=== PATIENT | male | born 1980 | race Two or more races ===

== ENCOUNTER 2019-06-20 02:53 | Inpatient (IN) | payer MEDICAID ==
[2019-06-20] VITALS (7 sets, daily range): BP systolic 88–113; BP diastolic 55–83
[~2019-06-20] VITALS: Ht 175.3 cm; Wt 106.6 kg
--- NOTE | 2019-06-20 03:02 | Emergency Room Report ---
History of Present Illness General Chief Complaint: Alcohol Intoxication Source: Patient, EMS Present Illness HPI This is a 39-year-old male who is an alcoholic. He has been drinking heavily for 3 months straight. He stopped drinking yesterday. He felt weak and wanted to go to the hospital. No bleeding. No nausea no vomiting. Nothing made it better. Movement or exertion makes it worse. Allergies: Coded Allergies: No Known Allergies (Unverified , 06/20/19) Patient History Past Medical History: see triage record, old chart reviewed Past Surgical History: none Pertinent Family History: none Social History: Reports: alcohol use Immunizations: other Reviewed Nursing Documentation: PMH: Agreed; PSxH: Agreed Nursing Documentation-PMH Past Medical History: No Stated History Review of Systems Constitutional: Reports: malaise, weakness Eye: Denies: eye pain, blurred vision ENT: Denies: ear pain, nose congestion, throat swelling Respiratory: Denies: cough, shortness of breath Cardiovascular: Denies: chest pain, palpitations Gastrointestinal: Denies: abdominal pain, diarrhea, nausea, vomiting Musculoskeletal: Denies: back pain, joint pain Skin: Denies: rash Neurological: Denies: headache, numbness Endocrine: Denies: increased thirst, increased urine Hematologic/Lymphatic: Denies: easy bruising All Other Systems: negative except mentioned in HPI Physical Exam Vital Signs Date Time Temp Pulse Resp B/P (MAP) Pulse Ox O2 Delivery O2 Flow Rate FiO2 06/20/19 02:49 98.4 116 15 88/55 (66) 93 Room Air Vitals with tachycardia and hypotension Sp02 EP Interpretation: reviewed, normal General Appearance: well appearing, no apparent distress, alert Head: normocephalic, atraumatic Eyes: bilateral eye PERRL, bilateral eye EOMI, bilateral eye scleral icterus ENT: hearing grossly normal, normal pharynx Neck: full range of motion, supple, no meningismus Respiratory: chest non-tender, lungs clear, normal breath sounds Cardiovascular #1: regular rate, rhythm, no murmur, tachycardia Gastrointestinal: normal bowel sounds, no mass, no bruit, tenderness - Diffuse tenderness, other - severe hepatomegaly Musculoskeletal: back normal, normal range of motion, swelling - 2+ pitting edema Neurologic: alert, oriented x3, other - Tremulous Psychiatric: depressed affect Skin: jaundice - Severe Medical Decision Making Diagnostic Impression: Primary Impression: Acute alcoholic intoxication Qualified Codes: F10.920 - Alcohol use, unspecified with intoxication, uncomplicated Additional Impressions: End-stage liver disease Hepatorenal syndrome Pancreatitis, alcoholic, acute Qualified Codes: K85.20 - Alcohol induced acute pancreatitis without necrosis or infection Anemia Qualified Codes: D64.9 - Anemia, unspecified ER Course Patient presents with alcohol intoxication, abdominal pain and severe jaundice. He has evidence of end-stage liver disease with hepatorenal syndrome with renal failure. Mental status is normal. Prognosis is poor in this condition. Patient was tremulous so Ativan was given. He claimed that he stopped drinking yesterday but alcohol level still elevated. Will admit for further work-up. I contacted Dr. Peterson for admission. Lab Results Impression labs with elevated bilirubin and liver enzymes EKG Diagnostic Results Rate: tachycardiac Rhythm: NSR ST Segments: other - NSST changes Rhythm Strip Diag. Results EP Interpretation: yes Rate: 110 Rhythm: NSR, no PVC's, no ectopy Chest X-Ray Diagnostic Results Chest X-Ray Diagnostic Results : Chest X-Ray Ordered: Yes # of Views/Limited/Complete: 1 View Indication: Shortness of Breath EP Interpretation: Yes Interpretation: no consolidation, no effusion, no pneumothorax, no acute cardiopulmonary disease Impression: No acute disease CT/MRI/US Diagnostic Results CT/MRI/US Diagnostic Results : Imaging Test Ordered: CT abdomen pelvis Impression Read by radiologist. Severely enlarged liver and fatty liver. Mild ascites. Last Vital Signs Date Time Temp Pulse Resp B/P (MAP) Pulse Ox O2 Delivery O2 Flow Rate FiO2 06/20/19 02:49 98.4 116 15 88/55 (66) 93 Room Air Status: improved Disposition: ADMITTED INPATIENT Condition: Serious Bird Lamar MD Jun 20, 2019 03:02
[2019-06-20] MEDS ORDERED: Thiamine HCl 100 MG in D5W 55 ML IVPB ONE (03:15)
[2019-06-20 03:30] LABS: HEMATOCRIT 26.9 % (42.0-52.0); HEMOGLOBIN 8.7 G/DL (14.2-18.0); MEAN CORPUSCULAR VOLUME 92 FL (80-99); PLATELET COUNT 98 K/UL (150-450); RED BLOOD COUNT 2.92 M/UL (4.70-6.10); RED CELL DISTRIBUTION WIDTH 17.2 % (11.6-14.8); WHITE BLOOD COUNT 15.8 K/UL (4.8-10.8)
[2019-06-20 03:31] LABS: ANION GAP 20 mmol/L (5-15); BLOOD UREA NITROGEN 29 mg/dL (7-18); CALCIUM 7.7 MG/DL (8.5-10.1); CARBON DIOXIDE 18 MMOL/L (21-32); CHLORIDE 98 MMOL/L (98-107); POTASSIUM 3.4 MMOL/L (3.5-5.1); SODIUM 136 MMOL/L (136-145)
[2019-06-20 03:41] LABS: ALANINE AMINOTRANSFERASE 20 U/L (12-78); ALBUMIN 2.2 G/DL (3.4-5.0); ALBUMIN/GLOBULIN RATIO 0.5 (1.0-2.7); ALKALINE PHOSPHATASE 545 U/L (46-116); ASPARTATE AMINO TRANSFERASE 285 U/L (15-37); BILIRUBIN,TOTAL 17.2 MG/DL (0.2-1.0); INR 1.4 (0.9-1.1)
[2019-06-20] MEDS ORDERED: LORazepam Inj 2mg/ml 1ml IV ONE (03:45)
[2019-06-20] MEDS ORDERED: chlordiazePOXIDE 25mg Cap ORAL ONE (03:45)
[2019-06-20 03:48] LABS: BILIRUBIN,DIRECT 13.7 MG/DL (0.0-0.3)
--- NOTE | 2019-06-20 03:57 | Diagnostic Imaging Report ---
Indication: Abdominal pain Technique: Continuous helical transaxial imaging of the abdomen and pelvis was obtained from the lung bases to the pubic symphysis. No intravenous contrast was administered. Coronal 2-D reformats were also obtained. Automatic Exposure Control was utilized. Total Dose length Product (DLP): 1030.[address] Dose Index Volume (CTDIvol): 17.05 mGy Comparison: none Findings: The lung bases are clear. The liver is diffusely enlarged and hypodense consistent with fatty infiltration. Craniocaudal measurement of the liver is about 29 cm. Spleen is normal size. The gallbladder is distended. There is an umbilical hernia containing fat with some increased density within the hernia which could reflective of inflammation. Please correlate clinically. There is diffuse thickening of the wall of the right hemicolon and transverse colon consistent with colitis. There is no pneumatosis or free air. There is trace free fluid. Mesenteric stranding noted throughout the abdomen. The appendix is partially visualized and as such shows intraluminal air and is normal in caliber. Urinary bladder is unremarkable. IMPRESSION: Severe fatty infiltration and hepatomegaly. Colitis involving the right hemicolon and transverse colon. Correlate clinically Distended gallbladder with suggestion of intraluminal sludge versus stones. Cholecystitis not excluded. Umbilical hernia containing fat. Some question of inflammation involving the hernia. Correlate clinically. Trace ascites. [facility] has communicated the preliminary results to the Emergency Department. Their findings are largely concordant with this report. The CT scanner at [facility] is accredited by the [employer] and the scans are performed using dose optimization techniques as appropriate to a performed exam including Automatic Exposure control.
[2019-06-20 04:15] LABS: APPEARANCE,URINE SLIGHTLY CLOUDY; BILIRUBIN, URINE 3+ (NEGATIVE); GLUCOSE, URINE (UA) 1+ (NEGATIVE); KETONES,URINE 2+ (NEGATIVE); LEUKOCYTE ESTERASE ,URINE 1+ (NEGATIVE); NITRITE,URINE POSITIVE (NEGATIVE); PH,URINE 6.5 (4.5-8.0); PROTEIN,URINE 3+ (NEGATIVE); UROBILINOGEN,URINE 12 MG/DL (0.0-1.0)
[2019-06-20 04:23] LABS: COLOR,URINE AMBER
--- NOTE | 2019-06-20 08:49 | General Progress Note ---
Assessment/Plan Problem List: (1) Pancreatitis, alcoholic, acute ICD Codes: K85.20 - Alcohol induced acute pancreatitis without necrosis or infection SNOMED: 621974401, [id number] Qualifiers: Qualified Codes: K85.20 - Alcohol induced acute pancreatitis without necrosis or infection (2) Acute alcoholic intoxication ICD Codes: F10.929 - Alcohol use, unspecified with intoxication, unspecified SNOMED: 74402322, 1597515 Qualifiers: Qualified Codes: F10.920 - Alcohol use, unspecified with intoxication, uncomplicated (3) Anemia ICD Codes: D64.9 - Anemia, unspecified SNOMED: 538458217 Qualifiers: Qualified Codes: D64.9 - Anemia, unspecified Assessment/Plan: discriminant factor of 16 iv thiamine npo ivf repeat labs fu nephrology Subjective ROS Limited/Unobtainable: No Allergies: Coded Allergies: No Known Allergies (Unverified , 06/20/19) Objective Last 24 Hour Vital Signs Date Time Temp Pulse Resp B/P (MAP) Pulse Ox O2 Delivery O2 Flow Rate FiO2 06/20/19 05:49 120 06/20/19 05:40 98.4 121 26 106/63 94 Nasal Cannula 2.0 06/20/19 05:37 98.4 121 26 106/63 94 Nasal Cannula 2.0 06/20/19 05:25 98.9 120 19 106/64 (78) 93 06/20/19 02:53 116 15 Room Air 06/20/19 02:53 98.4 116 15 88/55 93 Room Air 06/20/19 02:49 98.4 116 15 88/55 (66) 93 Room Air Intake and Output 06/19/19 06/20/19 19:00 07:00 Intake Total 1000 ml Balance 1000 ml Intake Oral 0 ml IV Total 1000 ml Laboratory Tests 06/20/19 03:05: White Blood Count 15.8H, Red Blood Count 2.92L, Hemoglobin 8.7L, Hematocrit 26.9L, Mean Corpuscular Volume 92, Mean Corpuscular Hemoglobin 29.6, Mean Corpuscular Hemoglobin Concent 32.2, Red Cell Distribution Width 17.2H, Platelet Count 98L, Mean Platelet Volume 7.0, Neutrophils (%) (Auto) , Lymphocytes (%) (Auto) , Monocytes (%) (Auto) , Eosinophils (%) (Auto) , Basophils (%) (Auto) , Prothrombin Time 14.8H, Prothromb Time International Ratio 1.4H, Activated Partial Thromboplast Time 34H, Sodium Level 136, Potassium Level 3.4L, Chloride Level 98, Carbon Dioxide Level 18L, Anion Gap 20H , Blood Urea Nitrogen 29H, Creatinine 2.0H, Estimat Glomerular Filtration Rate 37.4, Glucose Level 138H, Calcium Level 7.7L, Total Bilirubin 17.2H, Direct Bilirubin 13.7H, Aspartate Amino Transf (AST/SGOT) 285H, Alanine Aminotransferase (ALT/SGPT) 20, Alkaline Phosphatase 545H, Total Protein 6.5, Albumin 2.2L, Globulin 4.3, Albumin/Globulin Ratio 0.5L, Lipase 1881H, Serum Alcohol 271 06/20/19 04:09: Urine Color Maria Luz, Urine Appearance Slightly cloudy, Urine pH 6.5, Urine Specific [place] 1.015, Urine Protein 3+H, Urine Glucose (UA) 1+H, Urine Ketones 2+H, Urine Blood 2+H, Urine Nitrite PositiveH, Urine Bilirubin 3+H, Urine Ictotest Positive, Urine Urobilinogen 12H, Urine Leukocyte Esterase 1+H, Urine RBC 2-4H, Urine WBC 2-4, Urine Squamous Epithelial Cells Few, Urine Bacteria Few Height (Feet): 5 Height (Inches): 9.00 Weight (Pounds): 219 General Appearance: no apparent distress EENT: scleral icterus Neck: supple Cardiovascular: tachycardia Respiratory/Chest: decreased breath sounds Abdomen: normal bowel sounds, non tender, soft Extremities: non-tender Merlin Esposito MD Jun 20, 2019 08:49
[2019-06-20 09:03] LABS: HEMATOCRIT 24.7 % (42.0-52.0); MEAN CORPUSCULAR VOLUME 92 FL (80-99); PLATELET COUNT 88 K/UL (150-450); RED BLOOD COUNT 2.68 M/UL (4.70-6.10); RED CELL DISTRIBUTION WIDTH 17.5 % (11.6-14.8); WHITE BLOOD COUNT 14.4 K/UL (4.8-10.8)
[2019-06-20] MEDS: D5NS 1,000 ML IV SCH (09:07)
[2019-06-20 09:31] LABS: ANION GAP 14 mmol/L (5-15); BLOOD UREA NITROGEN 31 mg/dL (7-18); CARBON DIOXIDE 20 MMOL/L (21-32); CHLORIDE 98 MMOL/L (98-107); CREATININE 1.9 MG/DL (0.55-1.30); POTASSIUM 3.1 MMOL/L (3.5-5.1); SODIUM 132 MMOL/L (136-145)
[2019-06-20 09:32] LABS: ALANINE AMINOTRANSFERASE 18 U/L (12-78); ALBUMIN 2.1 G/DL (3.4-5.0); ALBUMIN/GLOBULIN RATIO 0.5 (1.0-2.7); ALKALINE PHOSPHATASE 503 U/L (46-116); ASPARTATE AMINO TRANSFERASE 268 U/L (15-37); CALCIUM 7.5 MG/DL (8.5-10.1); CHOLESTEROL 211 MG/DL (< 200); CREATINE KINASE 74 U/L (26-308); FERRITIN 297 NG/ML (8-388); GAMMA GLUTAMYL TRANSPEPTIDASE 1690 U/L (5-85); HDL CHOLESTEROL 8 MG/DL (40-60); TRIGLYCERIDES 442 MG/DL (30-150)
[2019-06-20 09:33] LABS: BILIRUBIN,DIRECT 13.6 MG/DL (0.0-0.3)
[2019-06-20 09:52] LABS: % IRON SATURATION 98 % (15-50); IRON 140 ug/dL (50-175); TOTAL IRON BINDING CAPACITY 143 ug/dL (250-450)
--- NOTE | 2019-06-20 12:41 | Diagnostic Imaging Report ---
Indication: Dyspnea Comparison: None A single view chest radiograph was obtained. Findings: Cardiomediastinal appearance is within normal limits for age. The lungs low in volume with suggestion of mild basal atelectasis. Pulmonary vascularity is appropriate. The diaphragmatic contour is smooth and costophrenic angles are sharp. No pleural effusions are identified. The bones are unremarkable. Impression: No acute findings
--- NOTE | 2019-06-20 12:42 | Consultation ---
Consult Note Consult Note asked to eval for renal failure- Chief Complaint: Alcohol Intoxication This is a 39-year-old male who is an alcoholic. He has been drinking heavily for 3 months straight. He stopped drinking yesterday. He felt weak and wanted to go to the hospital. No bleeding. No nausea no vomiting. Nothing made it better. Movement or exertion makes it worse. Social History: Reports: alcohol use cant give history somnolent distended abd jaundiced Assessment/Plan Acute alcoholic intoxication End-stage liver disease Hepatorenal syndrome Pancreatitis, alcoholic, acute Anemia IV Fluids Correct lytes IV protonix lactulose Folate and Thiamin per GI Arthur Lay MD Jun 20, 2019 12:42
[2019-06-20] MEDS ORDERED: LORazepam Inj 2mg/ml 1ml IV PRN (12:50)
[2019-06-20] MEDS: Lactulose 20gm/30ml UDC ORAL SCH ×3 (13:36→20:43)
[2019-06-20] MEDS: Tamsulosin 0.4mg cap ORAL SCH ×2 (13:36→17:37)
[2019-06-20] MEDS ORDERED: Potassium Phosphate 20 MM in NS 275 ML IV SCH (14:00)
[2019-06-20] MEDS ORDERED: cefTRIAXone 1 GM in D5W 55 ML IVPB SCH (15:00)
[2019-06-20] MEDS ORDERED: Thiamine HCl 100 MG in D5W 55 ML IVPB SCH (15:00)
--- NOTE | 2019-06-20 15:24 | Diagnostic Imaging Report ---
Indication: Abdominal pain Technique: Grayscale and duplex Doppler imaging of the abdomen performed. Comparison: None Findings: The liver is abnormal in appearance with the lobulation of the surface and diffuse enlargement spanning over 20 cm. There is mild ascites. Gallbladder is distended with layering sludge and mild wall thickening. Interrogation of the portal vein shows abnormal pulsatile flow. CBD is normal in caliber measuring 5 mm. Spleen is 12 cm. Demonstrated part of the pancreas is unremarkable although poorly seen. Aorta is poorly seen. IMPRESSION: Evidence of chronic liver disease with hepatomegaly. Portal hypertension suspected with ascites and abnormal portal venous waveform. Cholelithiasis.
--- NOTE | 2019-06-20 15:36 | Cardiac Electrophysiology PN ---
Subjective Subjective [id number] Objective Last 24 Hour Vital Signs Date Time Temp Pulse Resp B/P (MAP) Pulse Ox O2 Delivery O2 Flow Rate FiO2 06/20/19 12:00 98.5 140 20 100/57 (71) 93 06/20/19 12:00 130 06/20/19 09:00 Room Air 06/20/19 08:00 98.5 121 20 113/77 (89) 93 06/20/19 08:00 123 06/20/19 07:30 Room Air 06/20/19 05:49 120 06/20/19 05:40 98.4 121 26 106/63 94 Nasal Cannula 2.0 06/20/19 05:37 98.4 121 26 106/63 94 Nasal Cannula 2.0 06/20/19 05:25 98.9 120 19 106/64 (78) 93 06/20/19 02:53 116 15 Room Air 06/20/19 02:53 98.4 116 15 88/55 93 Room Air 06/20/19 02:49 98.4 116 15 88/55 (66) 93 Room Air Intake and Output 06/19/19 06/20/19 19:00 07:00 Intake Total 1000 ml Balance 1000 ml Intake Oral 0 ml IV Total 1000 ml Laboratory Tests Test 06/20/19 03:05 06/20/19 04:09 06/20/19 08:50 White Blood Count 15.8 K/UL (4.8-10.8) H 14.4 K/UL (4.8-10.8) H Red Blood Count 2.92 M/UL (4.70-6.10) L 2.68 M/UL (4.70-6.10) L Hemoglobin 8.7 G/DL (14.2-18.0) L 8.0 G/DL (14.2-18.0) L Hematocrit 26.9 % (42.0-52.0) L 24.7 % (42.0-52.0) L Mean Corpuscular Volume 92 FL (80-99) 92 FL (80-99) Mean Corpuscular Hemoglobin 29.6 PG (27.0-31.0) 29.8 PG (27.0-31.0) Mean Corpuscular Hemoglobin Concent 32.2 G/DL (32.0-36.0) 32.4 G/DL (32.0-36.0) Red Cell Distribution Width 17.2 % (11.6-14.8) H 17.5 % (11.6-14.8) H Platelet Count 98 K/UL (150-450) L 88 K/UL (150-450) L Mean Platelet Volume 7.0 FL (6.5-10.1) 7.3 FL (6.5-10.1) Neutrophils (%) (Auto) % (45.0-75.0) % (45.0-75.0) Lymphocytes (%) (Auto) % (20.0-45.0) % (20.0-45.0) Monocytes (%) (Auto) % (1.0-10.0) % (1.0-10.0) Eosinophils (%) (Auto) % (0.0-3.0) % (0.0-3.0) Basophils (%) (Auto) % (0.0-2.0) % (0.0-2.0) Prothrombin Time 14.8 SEC (9.30-11.50) H Prothromb Time International Ratio 1.4 (0.9-1.1) H Activated Partial Thromboplast Time 34 SEC (23-33) H Sodium Level 136 MMOL/L (136-145) 132 MMOL/L (136-145) L Potassium Level 3.4 MMOL/L (3.5-5.1) L 3.1 MMOL/L (3.5-5.1) L Chloride Level 98 MMOL/L (98-107) 98 MMOL/L (98-107) Carbon Dioxide Level 18 MMOL/L (21-32) L 20 MMOL/L (21-32) L Anion Gap 20 mmol/L (5-15) H 14 mmol/L (5-15) Blood Urea Nitrogen 29 mg/dL (7-18) H 31 mg/dL (7-18) H Creatinine 2.0 MG/DL (0.55-1.30) H 1.9 MG/DL (0.55-1.30) H Estimat Glomerular Filtration Rate 37.4 mL/min (>60) 39.7 mL/min (>60) Glucose Level 138 MG/DL (74-106) H 121 MG/DL (74-106) H Calcium Level 7.7 MG/DL (8.5-10.1) L 7.5 MG/DL (8.5-10.1) L Total Bilirubin 17.2 MG/DL (0.2-1.0) H 17.0 MG/DL (0.2-1.0) H Direct Bilirubin 13.7 MG/DL (0.0-0.3) H 13.6 MG/DL (0.0-0.3) H Aspartate Amino Transf (AST/SGOT) 285 U/L (15-37) H 268 U/L (15-37) H Alanine Aminotransferase (ALT/SGPT) 20 U/L (12-78) 18 U/L (12-78) Alkaline Phosphatase 545 U/L (46-116) H 503 U/L (46-116) H Total Protein 6.5 G/DL (6.4-8.2) 6.2 G/DL (6.4-8.2) L Albumin 2.2 G/DL (3.4-5.0) L 2.1 G/DL (3.4-5.0) L Globulin 4.3 g/dL 4.1 g/dL Albumin/Globulin Ratio 0.5 (1.0-2.7) L Pending Lipase 1881 U/L (73-393) H 1448 U/L (73-393) H Serum Alcohol 271 mg/dL Urine Color Maria Luz Urine Appearance Slightly cloudy Urine pH 6.5 (4.5-8.0) Urine Specific [place] 1.015 (1.005-1.035) Urine Protein 3+ (NEGATIVE) H Urine Glucose (UA) 1+ (NEGATIVE) H Urine Ketones 2+ (NEGATIVE) H Urine Blood 2+ (NEGATIVE) H Urine Nitrite Positive (NEGATIVE) H Urine Bilirubin 3+ (NEGATIVE) H Urine Ictotest Positive (NEGATIVE) Urine Urobilinogen 12 MG/DL (0.0-1.0) H Urine Leukocyte Esterase 1+ (NEGATIVE) H Urine RBC 2-4 /HPF (0 - 0) H Urine WBC 2-4 /HPF (0 - 0) Urine Squamous Epithelial Cells Few /LPF (NONE/OCC) Urine Bacteria Few /HPF (NONE) Differential Total Cells Counted 100 Neutrophils % (Manual) 83 % (45-75) H Lymphocytes % (Manual) 11 % (20-45) L Monocytes % (Manual) 4 % (1-10) Eosinophils % (Manual) 1 % (0-3) Basophils % (Manual) 1 % (0-2) Band Neutrophils 0 % (0-8) Platelet Estimate Decreased L Platelet Morphology Normal Anisocytosis 1+ Macrocytosis 1+ Target Cells 2+ Hemoglobin A1c 5.5 % (4.3-6.0) Uric Acid 8.8 MG/DL (2.6-7.2) H Phosphorus Level 2.0 MG/DL (2.5-4.9) L Magnesium Level 1.7 MG/DL (1.8-2.4) L Iron Level 140 ug/dL (50-175) Total Iron Binding Capacity 143 ug/dL (250-450) L Percent Iron Saturation 98 % (15-50) H Unsaturated Iron Binding 3 ug/dL (112-346) L Ferritin 297 NG/ML (8-388) Gamma Glutamyl Transpeptidase 1690 U/L (5-85) H Total Creatine Kinase 74 U/L (26-308) C-Reactive Protein, Quantitative 6.4 mg/dL (0.00-0.90) H Pro-B-Type Natriuretic Peptide 65 pg/mL (0-125) Total Protein (PEP) Pending Albumin (PEP) Pending Globulin (PEP) Pending [id number] Pending [id number] Pending Beta Globulins Pending Beta Gamma Globulin Pending PEP Abnormal Protein Bands Pending Protein Electrophoresis Interpret Pending Triglycerides Level 442 MG/DL (30-150) H Cholesterol Level 211 MG/DL (< 200) H LDL Cholesterol 169 mg/dL (<100) H HDL Cholesterol 8 MG/DL (40-60) L Cholesterol/HDL Ratio 26.4 (3.3-4.4) H Alpha Fetoprotein Pending Carcinoembryonic Antigen Pending Vitamin B12 Level 1121 PG/ML (193-986) H Folate 1.6 NG/ML (8.6-58.9) L Thyroid Stimulating Hormone (TSH) 1.628 uiU/mL (0.358-3.740) Hepatitis A IgM Antibody Pending Hepatitis B Surface Antigen Pending Hepatitis B Core IgM Antibody Pending Hepatitis C Antibody Pending HIV (1&2) Antibody Rapid Negative (NEGATIVE) Felice Smith MD Jun 20, 2019 15:36
[2019-06-20] MEDS ORDERED: Acetaminophen 500mg (ES) tab ORAL PRN (16:30)
[2019-06-20] MEDS: metroNIDAZOLE 500mg tab ORAL SCH ×2 (16:39→21:02)
--- NOTE | 2019-06-20 18:37 | Consultation ---
History of Present Illness General Chief Complaint: Alcohol Intoxication Present Illness Allergies: Coded Allergies: No Known Allergies (Unverified , 06/20/19) Patient History Healthcare decision maker Resuscitation status Full Code Advanced Directive on File No Physical Exam Last 24 Hour Vital Signs Date Time Temp Pulse Resp B/P (MAP) Pulse Ox O2 Delivery O2 Flow Rate FiO2 06/20/19 16:00 126 06/20/19 16:00 99.6 141 20 101/56 (71) 93 06/20/19 12:00 98.5 140 20 100/57 (71) 93 06/20/19 12:00 130 06/20/19 09:00 Room Air 06/20/19 08:00 98.5 121 20 113/77 (89) 93 06/20/19 08:00 123 06/20/19 07:30 Room Air 06/20/19 05:49 120 06/20/19 05:40 98.4 121 26 106/63 94 Nasal Cannula 2.0 06/20/19 05:37 98.4 121 26 106/63 94 Nasal Cannula 2.0 06/20/19 05:25 98.9 120 19 106/64 (78) 93 06/20/19 02:53 116 15 Room Air 06/20/19 02:53 98.4 116 15 88/55 93 Room Air 06/20/19 02:49 98.4 116 15 88/55 (66) 93 Room Air Intake and Output 06/19/19 06/20/19 19:00 07:00 Intake Total 1000 ml Balance 1000 ml Intake Oral 0 ml IV Total 1000 ml Laboratory Tests Test 06/20/19 03:05 06/20/19 04:09 06/20/19 08:50 White Blood Count 15.8 K/UL (4.8-10.8) H 14.4 K/UL (4.8-10.8) H Red Blood Count 2.92 M/UL (4.70-6.10) L 2.68 M/UL (4.70-6.10) L Hemoglobin 8.7 G/DL (14.2-18.0) L 8.0 G/DL (14.2-18.0) L Hematocrit 26.9 % (42.0-52.0) L 24.7 % (42.0-52.0) L Mean Corpuscular Volume 92 FL (80-99) 92 FL (80-99) Mean Corpuscular Hemoglobin 29.6 PG (27.0-31.0) 29.8 PG (27.0-31.0) Mean Corpuscular Hemoglobin Concent 32.2 G/DL (32.0-36.0) 32.4 G/DL (32.0-36.0) Red Cell Distribution Width 17.2 % (11.6-14.8) H 17.5 % (11.6-14.8) H Platelet Count 98 K/UL (150-450) L 88 K/UL (150-450) L Mean Platelet Volume 7.0 FL (6.5-10.1) 7.3 FL (6.5-10.1) Neutrophils (%) (Auto) % (45.0-75.0) % (45.0-75.0) Lymphocytes (%) (Auto) % (20.0-45.0) % (20.0-45.0) Monocytes (%) (Auto) % (1.0-10.0) % (1.0-10.0) Eosinophils (%) (Auto) % (0.0-3.0) % (0.0-3.0) Basophils (%) (Auto) % (0.0-2.0) % (0.0-2.0) Prothrombin Time 14.8 SEC (9.30-11.50) H Prothromb Time International Ratio 1.4 (0.9-1.1) H Activated Partial Thromboplast Time 34 SEC (23-33) H Sodium Level 136 MMOL/L (136-145) 132 MMOL/L (136-145) L Potassium Level 3.4 MMOL/L (3.5-5.1) L 3.1 MMOL/L (3.5-5.1) L Chloride Level 98 MMOL/L (98-107) 98 MMOL/L (98-107) Carbon Dioxide Level 18 MMOL/L (21-32) L 20 MMOL/L (21-32) L Anion Gap 20 mmol/L (5-15) H 14 mmol/L (5-15) Blood Urea Nitrogen 29 mg/dL (7-18) H 31 mg/dL (7-18) H Creatinine 2.0 MG/DL (0.55-1.30) H 1.9 MG/DL (0.55-1.30) H Estimat Glomerular Filtration Rate 37.4 mL/min (>60) 39.7 mL/min (>60) Glucose Level 138 MG/DL (74-106) H 121 MG/DL (74-106) H Calcium Level 7.7 MG/DL (8.5-10.1) L 7.5 MG/DL (8.5-10.1) L Total Bilirubin 17.2 MG/DL (0.2-1.0) H 17.0 MG/DL (0.2-1.0) H Direct Bilirubin 13.7 MG/DL (0.0-0.3) H 13.6 MG/DL (0.0-0.3) H Aspartate Amino Transf (AST/SGOT) 285 U/L (15-37) H 268 U/L (15-37) H Alanine Aminotransferase (ALT/SGPT) 20 U/L (12-78) 18 U/L (12-78) Alkaline Phosphatase 545 U/L (46-116) H 503 U/L (46-116) H Total Protein 6.5 G/DL (6.4-8.2) 6.2 G/DL (6.4-8.2) L Albumin 2.2 G/DL (3.4-5.0) L 2.1 G/DL (3.4-5.0) L Globulin 4.3 g/dL 4.1 g/dL Albumin/Globulin Ratio 0.5 (1.0-2.7) L Pending Lipase 1881 U/L (73-393) H 1448 U/L (73-393) H Serum Alcohol 271 mg/dL Urine Color Maria Luz Urine Appearance Slightly cloudy Urine pH 6.5 (4.5-8.0) Urine Specific [place] 1.015 (1.005-1.035) Urine Protein 3+ (NEGATIVE) H Urine Glucose (UA) 1+ (NEGATIVE) H Urine Ketones 2+ (NEGATIVE) H Urine Blood 2+ (NEGATIVE) H Urine Nitrite Positive (NEGATIVE) H Urine Bilirubin 3+ (NEGATIVE) H Urine Ictotest Positive (NEGATIVE) Urine Urobilinogen 12 MG/DL (0.0-1.0) H Urine Leukocyte Esterase 1+ (NEGATIVE) H Urine RBC 2-4 /HPF (0 - 0) H Urine WBC 2-4 /HPF (0 - 0) Urine Squamous Epithelial Cells Few /LPF (NONE/OCC) Urine Bacteria Few /HPF (NONE) Differential Total Cells Counted 100 Neutrophils % (Manual) 83 % (45-75) H Lymphocytes % (Manual) 11 % (20-45) L Monocytes % (Manual) 4 % (1-10) Eosinophils % (Manual) 1 % (0-3) Basophils % (Manual) 1 % (0-2) Band Neutrophils 0 % (0-8) Platelet Estimate Decreased L Platelet Morphology Normal Anisocytosis 1+ Macrocytosis 1+ Target Cells 2+ Hemoglobin A1c 5.5 % (4.3-6.0) Uric Acid 8.8 MG/DL (2.6-7.2) H Phosphorus Level 2.0 MG/DL (2.5-4.9) L Magnesium Level 1.7 MG/DL (1.8-2.4) L Iron Level 140 ug/dL (50-175) Total Iron Binding Capacity 143 ug/dL (250-450) L Percent Iron Saturation 98 % (15-50) H Unsaturated Iron Binding 3 ug/dL (112-346) L Ferritin 297 NG/ML (8-388) Gamma Glutamyl Transpeptidase 1690 U/L (5-85) H Total Creatine Kinase 74 U/L (26-308) C-Reactive Protein, Quantitative 6.4 mg/dL (0.00-0.90) H Pro-B-Type Natriuretic Peptide 65 pg/mL (0-125) Total Protein (PEP) Pending Albumin (PEP) Pending Globulin (PEP) Pending [id number] Pending [id number] Pending Beta Globulins Pending Beta Gamma Globulin Pending PEP Abnormal Protein Bands Pending Protein Electrophoresis Interpret Pending Triglycerides Level 442 MG/DL (30-150) H Cholesterol Level 211 MG/DL (< 200) H LDL Cholesterol 169 mg/dL (<100) H HDL Cholesterol 8 MG/DL (40-60) L Cholesterol/HDL Ratio 26.4 (3.3-4.4) H Alpha Fetoprotein Pending Carcinoembryonic Antigen Pending Vitamin B12 Level 1121 PG/ML (193-986) H Folate 1.6 NG/ML (8.6-58.9) L Thyroid Stimulating Hormone (TSH) 1.628 uiU/mL (0.358-3.740) Hepatitis A IgM Antibody Pending Hepatitis B Surface Antigen Pending Hepatitis B Core IgM Antibody Pending Hepatitis C Antibody Pending HIV (1&2) Antibody Rapid Negative (NEGATIVE) Height (Feet): 5 Height (Inches): 9.00 Weight (Pounds): 219 Medications Current Medications Medications (Trade) Dose Ordered Sig/Gabriela Route PRN Reason Start Time Stop Time Status Last Admin Dose Admin Acetaminophen (Tylenol) 500 mg Q4H PRN ORAL Mild Pain/Temp > 100.5 06/20/19 16:30 07/20/19 16:29 Ceftriaxone Sodium 1 gm/ Dextrose 55 ml @ 110 mls/hr Q24H IVPB 06/20/19 15:00 06/27/19 14:59 06/20/19 16:10 Dextrose/Sodium Chloride 1,000 ml @ 50 mls/hr Q20H IV 06/20/19 08:30 07/20/19 08:29 06/20/19 09:07 Folic Acid (Folate) 5 mg DAILY ORAL 06/20/19 12:45 07/20/19 12:44 06/20/19 13:37 Furosemide (Lasix) 40 mg DAILY IV 06/21/19 09:00 07/21/19 08:59 Lactulose (Cephulac) 30 gm FOUR TIMES A DAY ORAL 06/20/19 13:00 07/20/19 12:59 06/20/19 17:37 Lorazepam (Ativan 2mg/ml 1ml) 1 mg Q4H PRN IV For Anxiety 06/20/19 12:50 06/27/19 12:49 Metronidazole (Flagyl) 500 mg Q8HR ORAL 06/20/19 15:00 06/27/19 14:59 06/20/19 16:39 Pantoprazole (Protonix) 40 mg EVERY 12 HOURS IVP 06/20/19 21:00 07/20/19 20:59 Potassium Phosphate 20 mm/ Sodium Chloride 281.6667 ml @ 46.944 m... ONCE IV 06/20/19 14:00 06/20/19 20:00 06/20/19 14:37 Tamsulosin HCl (Flomax) 0.4 mg BID ORAL 06/20/19 12:45 07/20/19 12:44 06/20/19 17:37 Thiamine HCl 100 mg/Dextrose 56 ml @ 112 mls/hr Q24H IVPB 06/20/19 15:00 07/20/19 14:59 06/20/19 16:10 Assessment/Plan Assessment/Plan: Hematology Consultation REQ MD: Graciela Cutler DOS: 06/20/19 RFC: ANemia, leukopenia ID This is a 39-year-old male who is an alcoholic. He has been drinking heavily for 3 months straight. He stopped drinking yesterday. He felt weak and wanted to go to the hospital. No bleeding. No nausea no vomiting. Nothing made it better. Movement or exertion makes it worse. In er started on lactulose, tiamine, folate, banana bag, heme and gi, renal, cards consulted for eval Coded Allergies: No Known Allergies (Unverified , 06/20/19) Patient History Past Medical History: see triage record, old chart reviewed Past Surgical History: none Pertinent Family History: none Social History: Reports: alcohol use Immunizations: other Reviewed Nursing Documentation: PMH: Agreed; PSxH: Agreed Review of Systems Constitutional: Reports: malaise, weakness Chest: Denies: cough, shortness of breath Cv: Denies: chest pain, palpitations Gi: Denies: abdominal pain, diarrhea, nausea, vomiting Musculoskeletal: Denies: back pain, joint pain Skin: Denies: rash Hematologic/Lymphatic: Denies: easy bruising All Other Systems: negative except mentioned in HPI Vital Signs Date Time Temp Pulse Resp B/P (MAP) Pulse Ox O2 Delivery O2 Flow Rate FiO2 06/20/19 02:49 98.4 116 15 88/55 (66) 93 Room Air Physical Exam: Vitals: reviewed General Appearance: NAD HEENT: normocephalic, atraumatic ++ icterus jaundice Neck: non-tender, normal alignment Respiratory/Chest: normal breath sounds bilaterally Cardiovascular/Chest: normal peripheral pulses, normal rate Abdomen: normal bowel sounds, soft, diffuse ttp Extremities: normal range of motion Labs: wbc 14, hgb 8, plt 88k Imaging: noted Assessment and Recs; # Thrombocytopenia - potential causes multifactorial, does have a history of etoh abuse, cirrhosis of the liver, hepatosplenomegaly, portal HTN, coagulopathy noted as well --> Hep panel and HIV ordered (NEG) --> US abd does show, portal htn and cirrhosis ++ --> Peripheral smear ordered to evaluate for blasts /schistocytes reviewed and is negative --> abx and other meds have been reviewed --> ok for ppx if plt >50k w/ either heparin or lovenox --> Transfuse if Plt < 20k and fever, or if Plt < 10k without fever # Anemia of chronic disease (or of iron deficiency) due to underlying chronic medical issues, multifactorial (myelosuprresion noted) --> Anemia workup has been ordered, rule out gi bleed --> No evidence of hemolysis is noted, peripheral smear has been reviewed. --> Hgb goal >7. Transfuse prn. --> Epogen or iron at this time is not particularly indicated --> Medications have been reviewed --> low threshold for gi evaluation in case has occult + # Acute alcoholic intoxication --> etoh abuse history --> thiamine, folic acid, ivf # End-stage liver disease --> Hepatorenal syndrome r/o with renal, albumin prn # Pancreatitis, alcoholic, acute # Tachycardia The timing of this note does not necessarily reflect the time of the patient was seen. GREATLY APPRECIATE CONSULTATION. Marty Kebede MD Jun 20, 2019 18:36
[2019-06-20] MEDS: Pantoprazole Inj IVP SCH (20:42)
--- NOTE | 2019-06-20 22:15 | History and Physical Report ---
DATE OF ADMISSION: 06/20/2019 HISTORY OF PRESENT ILLNESS: The patient is admitted for hepatorenal syndrome, alcoholic cirrhosis, leukocytosis, anemia, azotemia, acute renal failure, elevated bilirubin, jaundice, elevated lipase, pancreatitis, elevated alcohol level, severe hepatomegaly, and some ascites. He is admitted for all those reasons. The patient is confused. Has ecchymoses throughout the body. Has alcohol abuse, distended abdomen, edematous, altered, jaundiced. Cannot get any reliable history from the patient. PAST MEDICAL HISTORY: Alcoholic cirrhosis, history of pancreatitis, end-stage liver disease, anemia, GERD, BPH. PAST SURGICAL HISTORY: Unable to obtain. SOCIAL HISTORY: History of alcohol abuse. Denies history of smoking or drug abuse. ALLERGIES: No known allergies. MEDICATIONS: Unable to obtain. FAMILY HISTORY: Unable to obtain. REVIEW OF SYSTEMS: Unable to obtain. Poor historian. Very confused. PHYSICAL EXAMINATION: VITAL SIGNS: Temperature 98.5, pulse is 133, and blood pressure 113/77. GENERAL: The patient is jaundiced. HEENT: PERRLA. CHEST: Clear to auscultation. CARDIOVASCULAR: Regular rate and rhythm. ABDOMEN: Distended. There is a positive fluid wave. Positive bowel sounds. SKIN: Has ecchymosis throughout the body. NEUROLOGIC: Oriented to name. Denies weakness. Does not follow neurologic exam. Confused. Moves all four extremities. No focal weakness, but does have generalized weakness. Reflexes on both sides. LABORATORY DATA: WBC of 15.8, hemoglobin 8.7, platelets 98. Sodium 136, potassium 3.4, BUN of 29, creatinine of 2, glucose of 138. Total bilirubin of 17.2, AST of 285, ALT of 20, alkaline phosphatase of 584. Lipase of 1881. IMAGING: Shows severe hepatomegaly. ASSESSMENT AND PLAN: Hepatorenal syndrome, alcoholic cirrhosis, altered mental status, acute renal failure, anemia, leukocytosis, ascites, jaundice. I have asked Dr. Smith, Dr. Ilia Chakraborty, Dr. Esposito, Dr. Jin Kebede, and Dr. Lay see the patient for the management of above-mentioned diagnoses. Ali Hadadz, M.D. DR: DEANDRA JOB#: [id number] CC:
[2019-06-21] VITALS (15 sets, daily range): BP systolic 91–128; BP diastolic 54–87
--- NOTE | 2019-06-21 01:15 | Consultation ---
DATE OF CONSULTATION: 06/20/2019 CARDIOLOGY CONSULTATION CONSULTING PHYSICIAN: Felice Smith M.D. REFERRING PHYSICIAN: Deejay Saldaña M.D. REASON FOR CONSULTATION: Edema and tachycardia. HISTORY OF PRESENT ILLNESS: The patient is a 39-year-old gentleman, who has not seen a physician for many years, has been drinking heavily for three months straight. He felt weak and wanted to go to the hospital. The patient was noted to be jaundiced with abdominal distention and was tachycardic. Cardiology consultation was obtained. The patient denies any prior myocardial infarction or coronary artery disease or congestive heart failure. REVIEW OF SYSTEMS: Negative other than what was mentioned in the history of present illness. PAST MEDICAL HISTORY: As mentioned above. FAMILY HISTORY: Noncontributory. SOCIAL HISTORY: He drinks alcohol heavily. Does not smoke or do drugs. PHYSICAL EXAMINATION: VITAL SIGNS: Blood pressure is 100/57, pulse 130, respirations 18, and temperature 98.5. HEAD AND NECK: Shows no JVD. Sclera is jaundiced. LUNGS: Decreased breath sounds. CARDIOVASCULAR: Shows tachycardic. S1 and S2 with no gallop. ABDOMEN: Distended. EXTREMITIES: A 2+ pitting edema. LABORATORY AND DIAGNOSTIC DATA: EKG showed sinus tachycardia with anterior T-wave abnormalities. His labs show white count 14.5, hemoglobin 8, hematocrit 24.7, and platelet count 88,000. Sodium is 132, potassium 3.9, BUN 31, creatinine 1.9, and glucose 121. Serum alcohol level was 271. INR is 1.4. Urinalysis showed 3+ bilirubin and ketones were positive. ASSESSMENT AND PLAN: 1. Tachycardia. This is likely due to alcohol withdrawal. This is sinus tachycardia. No evidence of atrial fibrillation. We will get an echocardiogram to make sure he has not developed tachycardia-induced cardiomyopathy. 2. Hepatic failure and cirrhosis. His GGT is 1690, AST is 268, and alkaline phosphatase is 503. His total bilirubin is 17 with of 13.6. Further evaluation by GI. 3. Hepatorenal syndrome. Creatinine is 2. Further evaluation by Dr. Lay. 4. Hypokalemia. 5. Alcohol intoxication. Thiamine, folate, and Librium. Thank you very much for allowing me to participate in the care of this patient. Please do not hesitate to contact me for any questions regarding my evaluation. Felice Smith M.D. DR: DARYN JOB#: [id number] CC:
--- NOTE | 2019-06-21 03:45 | Consultation ---
DATE OF CONSULTATION: 06/20/2019 INFECTIOUS DISEASE CONSULTATION CONSULTING PHYSICIAN: Ilia Chakraborty M.D. PRIMARY ATTENDING PHYSICIAN: Deejay Saldaña M.D. REASON FOR CONSULTATION: Colitis, sepsis, pancreatitis. HISTORY OF PRESENT ILLNESS: The patient is a 39-year-old male admitted today complaining of weakness and shaking. The patient has history of heavy alcohol abuse in the past 3 months, stopped drinking yesterday, had a heart rate of 116 at the time of admission, leukocytosis of 15.8. PAST MEDICAL HISTORY: Alcohol abuse. ALLERGIES: No known drug allergy. MEDICATIONS: Getting Protonix, thiamine, started with ceftriaxone,Flagyl potassium phosphate, lactulose, lorazepam , Flomax. SOCIAL HISTORY: Single. Originally from [place]. Denies smoking and drug abuse. He has heavy alcohol abuse. REVIEW OF SYSTEMS: No fever. No chills. No coughing. No nausea. No vomiting. No diarrhea. Has abdominal distention. No problem passing urine. PHYSICAL EXAMINATION: VITAL SIGNS: Temperature 98.4, pulse 140, blood pressure 100/57. GENERAL APPEARANCE: Looks very sick. HEAD AND NECK: Reddish conjunctivae, has icterus, slightly whitish tongue HEART: Tachycardic. LUNGS: Clear. ABDOMEN: Distended with ascites, has umbilical hernia. Has varicose vein in abdominal wall. EXTREMITIES: He has bilateral sequential compression device. LABORATORY AND DIAGNOSTIC DATA: HIV test is negative. WBC 14.4, hemoglobin 8, hematocrit 24.7, platelets 88. Sodium 132, potassium 3.1, chloride 98, bicarbonate 20, BUN 31, creatinine 1.9. Calcium, phosphorus, magnesium are all low. Bilirubin 17, direct bilirubin 13.6, AST 268 , alkaline phosphatase 503. Albumin is 2.1. Lipase at the time of admission 1881, currently is 1448. Serum Alcohol 271. CT scan of the abdomen and pelvis showed fatty liver, hepatomegaly, colitis, right hemicolon transverse colon. IMPRESSION: 1. Sepsis. 2. Systemic inflammatory response syndrome. 3. Tachycardia. 4. Leukocytosis. 5. colitis, 6.Alcoholic pancreatitis, 7.Cirrhosis of liver, 8. Acute renal failure likely hepatorenal syndrome, 9.Anemia, 10. thrombocytopenia, 11.hypocalcemia, 12.hypomagnesemia, 13 hypokalemia, 14, Alcohol withdrawal. RECOMMENDATION: May benefit with short course of antibiotics, ceftriaxone & Flagyl . Follow up the culture. We will follow up abdominal ultrasound. If there is enough ascites, we will order paracentesis. At the end of my exam, I thank Dr. Saldaña for involving me in the care of this patient. Ilia Chakraborty M.D. DR: Christiano JOB#: [id number] CC: RYANNE
[2019-06-21] MEDS: D5NS 1,000 ML IV SCH ×2 (04:32→15:18)
[2019-06-21] MEDS: metroNIDAZOLE 500mg tab ORAL SCH ×3 (06:07→20:41)
[2019-06-21 06:28] LABS: HEMATOCRIT 23.9 % (42.0-52.0); HEMOGLOBIN 7.7 G/DL (14.2-18.0); MEAN CORPUSCULAR VOLUME 93 FL (80-99); PLATELET COUNT 97 K/UL (150-450); RED BLOOD COUNT 2.58 M/UL (4.70-6.10); RED CELL DISTRIBUTION WIDTH 17.9 % (11.6-14.8); WHITE BLOOD COUNT 13.9 K/UL (4.8-10.8)
[2019-06-21 06:40] LABS: AMMONIA 115 umol/L (11-32)
[2019-06-21 06:46] LABS: AMYLASE 83 U/L (25-115)
[2019-06-21 06:58] LABS: PHOSPHORUS 1.4 MG/DL (2.5-4.9)
[2019-06-21 07:04] LABS: ALANINE AMINOTRANSFERASE 18 U/L (12-78); ALBUMIN 2.1 G/DL (3.4-5.0); ALBUMIN/GLOBULIN RATIO 0.5 (1.0-2.7); ALKALINE PHOSPHATASE 493 U/L (46-116); ANION GAP 16 mmol/L (5-15); ASPARTATE AMINO TRANSFERASE 253 U/L (15-37); BILIRUBIN,TOTAL 20.6 MG/DL (0.2-1.0); BLOOD UREA NITROGEN 33 mg/dL (7-18); CALCIUM 7.9 MG/DL (8.5-10.1); CARBON DIOXIDE 20 MMOL/L (21-32); CHLORIDE 103 MMOL/L (98-107); CREATININE 2.2 MG/DL (0.55-1.30); SODIUM 139 MMOL/L (136-145)
[2019-06-21 07:05] LABS: POTASSIUM 2.6 MMOL/L (3.5-5.1)
[2019-06-21 07:07] LABS: BILIRUBIN,DIRECT 17.2 MG/DL (0.0-0.3)
[2019-06-21] MEDS: Pantoprazole Inj IVP SCH ×2 (10:02→20:40)
[2019-06-21] MEDS: Lactulose 20gm/30ml UDC ORAL SCH ×3 (10:03→20:41)
[2019-06-21] MEDS: Tamsulosin 0.4mg cap ORAL SCH (10:04)
--- NOTE | 2019-06-21 10:10 | Hematology/Onc Progress Note ---
Assessment/Plan Assessment/Plan Assessment and Recs; # Thrombocytopenia - potential causes multifactorial, does have a history of etoh abuse, cirrhosis of the liver, hepatosplenomegaly, portal HTN, coagulopathy noted as well --> Hep panel and HIV ordered (NEG) --> US abd does show, portal htn and cirrhosis ++ --> Peripheral smear ordered to evaluate for blasts /schistocytes reviewed and is negative --> abx and other meds have been reviewed --> ok for ppx if plt >50k w/ either heparin or lovenox --> Transfuse if Plt < 20k and fever, or if Plt < 10k without fever # Anemia of chronic disease due to underlying chronic medical issues, multifactorial (myelosuprresion noted) --> Anemia workup has been reviewed, ferritin 297 --> No evidence of hemolysis is noted, peripheral smear has been reviewed. --> Hgb goal >7. Transfuse prn. --> Epogen or iron at this time is not particularly indicated --> Medications have been reviewed --> low threshold for gi evaluation in case has occult + --> hgb trend: 7.7 --> serum electrophoresis ordered 06/20 # Acute alcoholic intoxication --> etoh abuse history --> thiamine, folic acid, ivf # End-stage liver disease --> Hepatorenal syndrome r/o with renal, albumin prn # Pancreatitis, alcoholic, acute # Tachycardia The timing of this note does not necessarily reflect the time of the patient was seen. GREATLY APPRECIATE CONSULTATION. Subjective Hematologic/Lymphatic: Reports: anemia Allergies: Coded Allergies: No Known Allergies (Unverified , 06/20/19) All Systems: reviewed and negative except above Subjective 06/21: low k, ferritin 297, h/h stable, afebrile Objective Objective Current Medications Medications (Trade) Dose Ordered Sig/Gabriela Route PRN Reason Start Time Stop Time Status Last Admin Dose Admin Acetaminophen (Tylenol) 500 mg Q4H PRN ORAL Mild Pain/Temp > 100.5 06/20/19 16:30 07/20/19 16:29 Ceftriaxone Sodium 1 gm/ Dextrose 55 ml @ 110 mls/hr Q24H IVPB 06/20/19 15:00 06/27/19 14:59 06/20/19 16:10 Dextrose/Sodium Chloride 1,000 ml @ 50 mls/hr Q20H IV 06/20/19 08:30 07/20/19 08:29 06/21/19 04:32 Folic Acid (Folate) 5 mg DAILY ORAL 06/20/19 12:45 07/20/19 12:44 06/20/19 13:37 Furosemide (Lasix) 40 mg DAILY IV 06/21/19 09:00 07/21/19 08:59 Lactulose (Cephulac) 30 gm FOUR TIMES A DAY ORAL 06/20/19 13:00 07/20/19 12:59 06/20/19 20:43 Lorazepam (Ativan 2mg/ml 1ml) 1 mg Q4H PRN IV For Anxiety 06/20/19 12:50 06/27/19 12:49 Metronidazole (Flagyl) 500 mg Q8HR ORAL 06/20/19 15:00 06/27/19 14:59 06/21/19 06:07 Pantoprazole (Protonix) 40 mg EVERY 12 HOURS IVP 06/20/19 21:00 07/20/19 20:59 06/20/19 20:42 Potassium Chloride 100 ml @ 100 mls/hr Q1HR IVPB 06/21/19 10:00 06/21/19 12:59 Potassium Chloride 100 ml @ 100 mls/hr Q1HR IVPB 06/21/19 15:00 06/21/19 17:59 Sodium Phosphate 30 mm/Sodium Chloride 285 ml @ 47.5 mls/hr ONCE ONCE IVPB 06/21/19 11:00 06/21/19 16:59 Tamsulosin HCl (Flomax) 0.4 mg BID ORAL 06/20/19 12:45 07/20/19 12:44 06/20/19 17:37 Thiamine HCl 100 mg/Dextrose 56 ml @ 112 mls/hr Q24H IVPB 06/20/19 15:00 07/20/19 14:59 06/20/19 16:10 Last 24 Hour Vital Signs Date Time Temp Pulse Resp B/P (MAP) Pulse Ox O2 Delivery O2 Flow Rate FiO2 06/21/19 08:00 98.6 131 24 108/64 (79) 93 06/21/19 04:00 136 06/21/19 04:00 98.6 136 19 110/73 (85) 96 06/21/19 00:00 134 06/21/19 00:00 99.5 131 18 94/57 (69) 95 06/20/19 21:00 Nasal Cannula 2.0 06/20/19 20:00 130 06/20/19 20:00 97.9 137 19 104/83 (90) 95 06/20/19 16:00 126 06/20/19 16:00 99.6 141 20 101/56 (71) 93 06/20/19 12:00 98.5 140 20 100/57 (71) 93 06/20/19 12:00 130 06/20/19 09:00 Room Air 06/20/19 08:00 98.5 121 20 113/77 (89) 93 06/20/19 08:00 123 06/20/19 07:30 Room Air 06/20/19 05:49 120 06/20/19 05:40 98.4 121 26 106/63 94 Nasal Cannula 2.0 06/20/19 05:37 98.4 121 26 106/63 94 Nasal Cannula 2.0 06/20/19 05:25 98.9 120 19 106/64 (78) 93 06/20/19 02:53 116 15 Room Air 06/20/19 02:53 98.4 116 15 88/55 93 Room Air 06/20/19 02:49 98.4 116 15 88/55 (66) 93 Room Air Intake and Output 06/20/19 06/21/19 19:00 07:00 Output Total 50 ml Balance -50 ml Output Urine Total 50 ml # Voids 2 2 # Bowel Movements 1 2 Labs Test 06/20/19 03:05 06/20/19 04:09 06/20/19 08:50 06/21/19 05:50 White Blood Count 15.8 K/UL (4.8-10.8) 14.4 K/UL (4.8-10.8) 13.9 K/UL (4.8-10.8) Red Blood Count 2.92 M/UL (4.70-6.10) 2.68 M/UL (4.70-6.10) 2.58 M/UL (4.70-6.10) Hemoglobin 8.7 G/DL (14.2-18.0) 8.0 G/DL (14.2-18.0) 7.7 G/DL (14.2-18.0) Hematocrit 26.9 % (42.0-52.0) 24.7 % (42.0-52.0) 23.9 % (42.0-52.0) Mean Corpuscular Volume 92 FL (80-99) 92 FL (80-99) 93 FL (80-99) Mean Corpuscular Hemoglobin 29.6 PG (27.0-31.0) 29.8 PG (27.0-31.0) 29.8 PG (27.0-31.0) Mean Corpuscular Hemoglobin Concent 32.2 G/DL (32.0-36.0) 32.4 G/DL (32.0-36.0) 32.2 G/DL (32.0-36.0) Red Cell Distribution Width 17.2 % (11.6-14.8) 17.5 % (11.6-14.8) 17.9 % (11.6-14.8) Platelet Count 98 K/UL (150-450) 88 K/UL (150-450) 97 K/UL (150-450) Mean Platelet Volume 7.0 FL (6.5-10.1) 7.3 FL (6.5-10.1) 8.1 FL (6.5-10.1) Neutrophils (%) (Auto) % (45.0-75.0) % (45.0-75.0) % (45.0-75.0) Lymphocytes (%) (Auto) % (20.0-45.0) % (20.0-45.0) % (20.0-45.0) Monocytes (%) (Auto) % (1.0-10.0) % (1.0-10.0) % (1.0-10.0) Eosinophils (%) (Auto) % (0.0-3.0) % (0.0-3.0) % (0.0-3.0) Basophils (%) (Auto) % (0.0-2.0) % (0.0-2.0) % (0.0-2.0) Prothrombin Time 14.8 SEC (9.30-11.50) Prothromb Time International Ratio 1.4 (0.9-1.1) Activated Partial Thromboplast Time 34 SEC (23-33) Sodium Level 136 MMOL/L (136-145) 132 MMOL/L (136-145) 139 MMOL/L (136-145) Potassium Level 3.4 MMOL/L (3.5-5.1) 3.1 MMOL/L (3.5-5.1) 2.6 MMOL/L (3.5-5.1) Chloride Level 98 MMOL/L (98-107) 98 MMOL/L (98-107) 103 MMOL/L (98-107) Carbon Dioxide Level 18 MMOL/L (21-32) 20 MMOL/L (21-32) 20 MMOL/L (21-32) Anion Gap 20 mmol/L (5-15) 14 mmol/L (5-15) 16 mmol/L (5-15) Blood Urea Nitrogen 29 mg/dL (7-18) 31 mg/dL (7-18) 33 mg/dL (7-18) Creatinine 2.0 MG/DL (0.55-1.30) 1.9 MG/DL (0.55-1.30) 2.2 MG/DL (0.55-1.30) Estimat Glomerular Filtration Rate 37.4 mL/min (>60) 39.7 mL/min (>60) 33.5 mL/min (>60) Glucose Level 138 MG/DL (74-106) 121 MG/DL (74-106) 131 MG/DL (74-106) Calcium Level 7.7 MG/DL (8.5-10.1) 7.5 MG/DL (8.5-10.1) 7.9 MG/DL (8.5-10.1) Total Bilirubin 17.2 MG/DL (0.2-1.0) 17.0 MG/DL (0.2-1.0) 20.6 MG/DL (0.2-1.0) Direct Bilirubin 13.7 MG/DL (0.0-0.3) 13.6 MG/DL (0.0-0.3) 17.2 MG/DL (0.0-0.3) Aspartate Amino Transf (AST/SGOT) 285 U/L (15-37) 268 U/L (15-37) 253 U/L (15-37) Alanine Aminotransferase (ALT/SGPT) 20 U/L (12-78) 18 U/L (12-78) 18 U/L (12-78) Alkaline Phosphatase 545 U/L (46-116) 503 U/L (46-116) 493 U/L (46-116) Total Protein 6.5 G/DL (6.4-8.2) 6.2 G/DL (6.4-8.2) 6.3 G/DL (6.4-8.2) Albumin 2.2 G/DL (3.4-5.0) 2.1 G/DL (3.4-5.0) 2.1 G/DL (3.4-5.0) Globulin 4.3 g/dL 4.1 g/dL 4.2 g/dL Albumin/Globulin Ratio 0.5 (1.0-2.7) 0.8 (0.7-1.7) 0.5 (1.0-2.7) Lipase 1881 U/L (73-393) 1448 U/L (73-393) 483 U/L (73-393) Serum Alcohol 271 mg/dL Urine Color Maria Luz Urine Appearance Slightly cloudy Urine pH 6.5 (4.5-8.0) Urine Specific Sells 1.015 (1.005-1.035) Urine Protein 3+ (NEGATIVE) Urine Glucose (UA) 1+ (NEGATIVE) Urine Ketones 2+ (NEGATIVE) Urine Blood 2+ (NEGATIVE) Urine Nitrite Positive (NEGATIVE) Urine Bilirubin 3+ (NEGATIVE) Urine Ictotest Positive (NEGATIVE) Urine Urobilinogen 12 MG/DL (0.0-1.0) Urine Leukocyte Esterase 1+ (NEGATIVE) Urine RBC 2-4 /HPF (0 - 0) Urine WBC 2-4 /HPF (0 - 0) Urine Squamous Epithelial Cells Few /LPF (NONE/OCC) Urine Bacteria Few /HPF (NONE) Differential Total Cells Counted 100 100 Neutrophils % (Manual) 83 % (45-75) 74 % (45-75) Lymphocytes % (Manual) 11 % (20-45) 11 % (20-45) Monocytes % (Manual) 4 % (1-10) 2 % (1-10) Eosinophils % (Manual) 1 % (0-3) 0 % (0-3) Basophils % (Manual) 1 % (0-2) 0 % (0-2) Band Neutrophils 0 % (0-8) 13 % (0-8) Platelet Estimate Decreased Decreased Platelet Morphology Normal Normal Anisocytosis 1+ 3+ Macrocytosis 1+ Target Cells 2+ 3+ Hemoglobin A1c 5.5 % (4.3-6.0) Uric Acid 8.8 MG/DL (2.6-7.2) 10.2 MG/DL (2.6-7.2) Phosphorus Level 2.0 MG/DL (2.5-4.9) 1.4 MG/DL (2.5-4.9) Magnesium Level 1.7 MG/DL (1.8-2.4) 2.2 MG/DL (1.8-2.4) Iron Level 140 ug/dL (50-175) Total Iron Binding Capacity 143 ug/dL (250-450) Percent Iron Saturation 98 % (15-50) Unsaturated Iron Binding 3 ug/dL (112-346) Ferritin 297 NG/ML (8-388) Gamma Glutamyl Transpeptidase 1690 U/L (5-85) Total Creatine Kinase 74 U/L (26-308) C-Reactive Protein, Quantitative 6.4 mg/dL (0.00-0.90) 11.0 mg/dL (0.00-0.90) Pro-B-Type Natriuretic Peptide 65 pg/mL (0-125) 372 pg/mL (0-125) Total Protein (PEP) 5.7 g/dL (6.0-8.5) Albumin (PEP) 2.5 g/dL (2.9-4.4) Globulin (PEP) 3.2 g/dL (2.2-3.9) Hgyxr-5-Vuvnzlpru 0.3 g/dL (0.0-0.4) Xrikt-5-Nnsafqazr 0.5 g/dL (0.4-1.0) Beta Globulins 1.0 g/dL (0.7-1.3) Beta Gamma Globulin 1.4 g/dL (0.4-1.8) PEP Abnormal Protein Bands Not observed g/dL (Not Protein Electrophoresis Interpret Comment (.) Triglycerides Level 442 MG/DL (30-150) Cholesterol Level 211 MG/DL (< 200) LDL Cholesterol 169 mg/dL (<100) HDL Cholesterol 8 MG/DL (40-60) Cholesterol/HDL Ratio 26.4 (3.3-4.4) Alpha Fetoprotein 3.4 ng/mL (0.0-8.3) Carcinoembryonic Antigen 6.9 ng/mL (0.0-4.7) Vitamin B12 Level 1121 PG/ML (193-986) Folate 1.6 NG/ML (8.6-58.9) Thyroid Stimulating Hormone (TSH) 1.628 uiU/mL (0.358-3.740) Hepatitis A IgM Antibody Negative (Negative) Hepatitis B Surface Antigen Negative (Negative) Hepatitis B Core IgM Antibody Negative (Negative) Hepatitis C Antibody <0.1 s/co ratio HIV (1&2) Antibody Rapid Negative (NEGATIVE) Nucleated Red Blood Cells 1 /100 WBC Hypochromasia 3+ Ammonia 115 umol/L (11-32) Amylase Level 83 U/L (25-115) Height (Feet): 5 Height (Inches): 9.00 Weight (Pounds): 219 Objective Physical Exam: Vitals: reviewed General Appearance: NAD HEENT: normocephalic, atraumatic ++ icterus jaundice Neck: non-tender, normal alignment Respiratory/Chest: normal breath sounds bilaterally Cardiovascular/Chest: normal peripheral pulses, normal rate Abdomen: normal bowel sounds, soft, diffuse ttp Extremities: normal range of motion Marty Kebede MD Jun 21, 2019 10:10
--- NOTE | 2019-06-21 10:29 | Infectious Diseases Prog Note ---
Assessment/Plan Assessment/Plan IMPRESSION: 1. Sepsis. 2. Systemic inflammatory response syndrome. 3. Tachycardia. 4. Leukocytosis. 5. colitis, 6.Alcoholic pancreatitis, 7.Cirrhosis of liver, 8. Acute renal failure likely hepatorenal syndrome, 9.Anemia, 10. thrombocytopenia, 11.hypocalcemia, 12.hypomagnesemia, 13 hypokalemia, 14, Alcohol withdrawal. 15.Metabolic encephalopathy RECOMMENDATION: Continue ceftriaxone & Flagyl Poor prognosis Subjective ROS Limited/Unobtainable: Yes Gastrointestinal/Abdominal: Reports: diarrhea Neurologic: Reports: other - lethargic Allergies: Coded Allergies: No Known Allergies (Unverified , 06/20/19) Objective Vital Signs Last 24 Hour Vital Signs Date Time Temp Pulse Resp B/P (MAP) Pulse Ox O2 Delivery O2 Flow Rate FiO2 06/21/19 08:00 98.6 131 24 108/64 (79) 93 06/21/19 04:00 136 06/21/19 04:00 98.6 136 19 110/73 (85) 96 06/21/19 00:00 134 06/21/19 00:00 99.5 131 18 94/57 (69) 95 06/20/19 21:00 Nasal Cannula 2.0 06/20/19 20:00 130 06/20/19 20:00 97.9 137 19 104/83 (90) 95 06/20/19 16:00 126 06/20/19 16:00 99.6 141 20 101/56 (71) 93 06/20/19 12:00 98.5 140 20 100/57 (71) 93 06/20/19 12:00 130 Height (Feet): 5 Height (Inches): 9.00 Weight (Pounds): 219 HEENT: mucous membranes moist, other - icterus Respiratory/Chest: lungs clear Cardiovascular: tachycardia Abdomen: soft, non tender, other - distended with ascites Extremities: other - legs edema Neurologic/Psychiatric: other - lethargic Laboratory Tests Test 06/21/19 05:50 06/21/19 10:11 White Blood Count 13.9 K/UL (4.8-10.8) H Red Blood Count 2.58 M/UL (4.70-6.10) L Hemoglobin 7.7 G/DL (14.2-18.0) L Hematocrit 23.9 % (42.0-52.0) L Mean Corpuscular Volume 93 FL (80-99) Mean Corpuscular Hemoglobin 29.8 PG (27.0-31.0) Mean Corpuscular Hemoglobin Concent 32.2 G/DL (32.0-36.0) Red Cell Distribution Width 17.9 % (11.6-14.8) H Platelet Count 97 K/UL (150-450) L Mean Platelet Volume 8.1 FL (6.5-10.1) Neutrophils (%) (Auto) % (45.0-75.0) Lymphocytes (%) (Auto) % (20.0-45.0) Monocytes (%) (Auto) % (1.0-10.0) Eosinophils (%) (Auto) % (0.0-3.0) Basophils (%) (Auto) % (0.0-2.0) Differential Total Cells Counted 100 Neutrophils % (Manual) 74 % (45-75) Lymphocytes % (Manual) 11 % (20-45) L Monocytes % (Manual) 2 % (1-10) Eosinophils % (Manual) 0 % (0-3) Basophils % (Manual) 0 % (0-2) Band Neutrophils 13 % (0-8) H Nucleated Red Blood Cells 1 /100 WBC Platelet Estimate Decreased L Platelet Morphology Normal Hypochromasia 3+ Anisocytosis 3+ Target Cells 3+ Sodium Level 139 MMOL/L (136-145) Potassium Level 2.6 MMOL/L (3.5-5.1) *L Chloride Level 103 MMOL/L (98-107) Carbon Dioxide Level 20 MMOL/L (21-32) L Anion Gap 16 mmol/L (5-15) H Blood Urea Nitrogen 33 mg/dL (7-18) H Creatinine 2.2 MG/DL (0.55-1.30) H Estimat Glomerular Filtration Rate 33.5 mL/min (>60) Glucose Level 131 MG/DL (74-106) H Uric Acid 10.2 MG/DL (2.6-7.2) H Calcium Level 7.9 MG/DL (8.5-10.1) L Phosphorus Level 1.4 MG/DL (2.5-4.9) L Magnesium Level 2.2 MG/DL (1.8-2.4) Total Bilirubin 20.6 MG/DL (0.2-1.0) H Direct Bilirubin 17.2 MG/DL (0.0-0.3) H Aspartate Amino Transf (AST/SGOT) 253 U/L (15-37) H Alanine Aminotransferase (ALT/SGPT) 18 U/L (12-78) Alkaline Phosphatase 493 U/L (46-116) H Ammonia 115 umol/L (11-32) H C-Reactive Protein, Quantitative 11.0 mg/dL (0.00-0.90) H Pro-B-Type Natriuretic Peptide 372 pg/mL (0-125) H Total Protein 6.3 G/DL (6.4-8.2) L Albumin 2.1 G/DL (3.4-5.0) L Globulin 4.2 g/dL Albumin/Globulin Ratio 0.5 (1.0-2.7) L Amylase Level 83 U/L (25-115) Lipase 483 U/L (73-393) H Arterial Blood pH 7.529 (7.350-7.450) Arterial Blood Partial Pressure CO2 24.4 mmHg (35.0-45.0) *L Arterial Blood Partial Pressure O2 73.8 mmHg (75.0-100.0) L Arterial Blood HCO3 19.9 mmol/L (22.0-26.0) L Arterial Blood Oxygen Saturation 94.9 % (95-100) L Arterial Blood Base Excess -2.2 (-2-2) L Dave Test Positive Current Medications Medications (Trade) Dose Ordered Sig/Gabriela Route PRN Reason Start Time Stop Time Status Last Admin Dose Admin Acetaminophen (Tylenol) 500 mg Q4H PRN ORAL Mild Pain/Temp > 100.5 06/20/19 16:30 07/20/19 16:29 Ceftriaxone Sodium 1 gm/ Dextrose 55 ml @ 110 mls/hr Q24H IVPB 06/20/19 15:00 06/27/19 14:59 06/20/19 16:10 Dextrose/Sodium Chloride 1,000 ml @ 50 mls/hr Q20H IV 06/20/19 08:30 07/20/19 08:29 06/21/19 04:32 Folic Acid (Folate) 5 mg DAILY ORAL 06/20/19 12:45 07/20/19 12:44 06/21/19 10:03 Furosemide (Lasix) 40 mg DAILY IV 06/21/19 09:00 07/21/19 08:59 06/21/19 10:03 Lactulose (Cephulac) 30 gm FOUR TIMES A DAY ORAL 06/20/19 13:00 07/20/19 12:59 06/21/19 10:03 Lorazepam (Ativan 2mg/ml 1ml) 1 mg Q4H PRN IV For Anxiety 06/20/19 12:50 06/27/19 12:49 Metronidazole (Flagyl) 500 mg Q8HR ORAL 06/20/19 15:00 06/27/19 14:59 06/21/19 06:07 Pantoprazole (Protonix) 40 mg EVERY 12 HOURS IVP 06/20/19 21:00 07/20/19 20:59 06/21/19 10:02 Potassium Chloride 100 ml @ 100 mls/hr Q1HR IVPB 06/21/19 10:00 06/21/19 12:59 06/21/19 10:05 Potassium Chloride 100 ml @ 100 mls/hr Q1HR IVPB 06/21/19 15:00 06/21/19 17:59 Sodium Phosphate 30 mm/Sodium Chloride 285 ml @ 47.5 mls/hr ONCE ONCE IVPB 06/21/19 11:00 06/21/19 16:59 Tamsulosin HCl (Flomax) 0.4 mg BID ORAL 06/20/19 12:45 07/20/19 12:44 06/21/19 10:04 Thiamine HCl 100 mg/Dextrose 56 ml @ 112 mls/hr Q24H IVPB 06/20/19 15:00 07/20/19 14:59 06/20/19 16:10 Ilia Chakraborty MD Jun 21, 2019 10:29
[2019-06-21] MEDS ORDERED: Sodium Phosphate 30 MM in NS 275 ML IVPB ONE (11:00)
[2019-06-21] MEDS ORDERED: D5 1/4NS 1000ml 1,000 ML IV SCH (11:45)
--- NOTE | 2019-06-21 12:21 | GI Progress Note ---
Assessment/Plan Problems: (1) End-stage liver disease ICD Codes: K72.90 - Hepatic failure, unspecified without coma SNOMED: 458785877 (2) Pancreatitis, alcoholic, acute ICD Codes: K85.20 - Alcohol induced acute pancreatitis without necrosis or infection SNOMED: 324632872, 3569635 Qualifiers: Qualified Codes: K85.20 - Alcohol induced acute pancreatitis without necrosis or infection (3) Hepatorenal syndrome ICD Codes: K76.7 - Hepatorenal syndrome SNOMED: 72818658, 3340747 (4) Acute alcoholic intoxication ICD Codes: F10.929 - Alcohol use, unspecified with intoxication, unspecified SNOMED: 01575259, 4936757 Qualifiers: Qualified Codes: F10.920 - Alcohol use, unspecified with intoxication, uncomplicated (5) Anemia ICD Codes: D64.9 - Anemia, unspecified SNOMED: 302106050 Qualifiers: Qualified Codes: D64.9 - Anemia, unspecified Status: not improved, unchanged Status Narrative Discussed with Dr. Esposito. Assessment/Plan discriminant factor of 16, defer corticosteroid therapy iv thiamine npo ivf repeat labs fu nephrology will need paracentesis when more stable poor prognosis The patient was seen and examined at bedside and all new and available data was reviewed in the patients chart. I agree with the above findings, impression and plan. (Patient seen earlier today. Signature stamp does not reflect patient encounter time.). - Merlin Esposito MD Subjective Subjective limited Objective Last 24 Hour Vital Signs Date Time Temp Pulse Resp B/P (MAP) Pulse Ox O2 Delivery O2 Flow Rate FiO2 06/21/19 08:00 130 06/21/19 08:00 98.6 131 24 108/64 (79) 93 06/21/19 04:00 136 06/21/19 04:00 98.6 136 19 110/73 (85) 96 06/21/19 00:00 134 06/21/19 00:00 99.5 131 18 94/57 (69) 95 06/20/19 21:00 Nasal Cannula 2.0 06/20/19 20:00 130 06/20/19 20:00 97.9 137 19 104/83 (90) 95 06/20/19 16:00 126 06/20/19 16:00 99.6 141 20 101/56 (71) 93 Intake and Output 06/20/19 06/21/19 19:00 07:00 Output Total 50 ml Balance -50 ml Output Urine Total 50 ml # Voids 2 2 # Bowel Movements 1 2 Laboratory Tests Test 06/21/19 05:50 06/21/19 10:11 White Blood Count 13.9 K/UL (4.8-10.8) H Red Blood Count 2.58 M/UL (4.70-6.10) L Hemoglobin 7.7 G/DL (14.2-18.0) L Hematocrit 23.9 % (42.0-52.0) L Mean Corpuscular Volume 93 FL (80-99) Mean Corpuscular Hemoglobin 29.8 PG (27.0-31.0) Mean Corpuscular Hemoglobin Concent 32.2 G/DL (32.0-36.0) Red Cell Distribution Width 17.9 % (11.6-14.8) H Platelet Count 97 K/UL (150-450) L Mean Platelet Volume 8.1 FL (6.5-10.1) Neutrophils (%) (Auto) % (45.0-75.0) Lymphocytes (%) (Auto) % (20.0-45.0) Monocytes (%) (Auto) % (1.0-10.0) Eosinophils (%) (Auto) % (0.0-3.0) Basophils (%) (Auto) % (0.0-2.0) Differential Total Cells Counted 100 Neutrophils % (Manual) 74 % (45-75) Lymphocytes % (Manual) 11 % (20-45) L Monocytes % (Manual) 2 % (1-10) Eosinophils % (Manual) 0 % (0-3) Basophils % (Manual) 0 % (0-2) Band Neutrophils 13 % (0-8) H Nucleated Red Blood Cells 1 /100 WBC Platelet Estimate Decreased L Platelet Morphology Normal Hypochromasia 3+ Anisocytosis 3+ Target Cells 3+ Sodium Level 139 MMOL/L (136-145) Potassium Level 2.6 MMOL/L (3.5-5.1) *L Chloride Level 103 MMOL/L (98-107) Carbon Dioxide Level 20 MMOL/L (21-32) L Anion Gap 16 mmol/L (5-15) H Blood Urea Nitrogen 33 mg/dL (7-18) H Creatinine 2.2 MG/DL (0.55-1.30) H Estimat Glomerular Filtration Rate 33.5 mL/min (>60) Glucose Level 131 MG/DL (74-106) H Uric Acid 10.2 MG/DL (2.6-7.2) H Calcium Level 7.9 MG/DL (8.5-10.1) L Phosphorus Level 1.4 MG/DL (2.5-4.9) L Magnesium Level 2.2 MG/DL (1.8-2.4) Total Bilirubin 20.6 MG/DL (0.2-1.0) H Direct Bilirubin 17.2 MG/DL (0.0-0.3) H Aspartate Amino Transf (AST/SGOT) 253 U/L (15-37) H Alanine Aminotransferase (ALT/SGPT) 18 U/L (12-78) Alkaline Phosphatase 493 U/L (46-116) H Ammonia 115 umol/L (11-32) H C-Reactive Protein, Quantitative 11.0 mg/dL (0.00-0.90) H Pro-B-Type Natriuretic Peptide 372 pg/mL (0-125) H Total Protein 6.3 G/DL (6.4-8.2) L Albumin 2.1 G/DL (3.4-5.0) L Globulin 4.2 g/dL Albumin/Globulin Ratio 0.5 (1.0-2.7) L Amylase Level 83 U/L (25-115) Lipase 483 U/L (73-393) H Arterial Blood pH 7.529 (7.350-7.450) Arterial Blood Partial Pressure CO2 24.4 mmHg (35.0-45.0) *L Arterial Blood Partial Pressure O2 73.8 mmHg (75.0-100.0) L Arterial Blood HCO3 19.9 mmol/L (22.0-26.0) L Arterial Blood Oxygen Saturation 94.9 % (95-100) L Arterial Blood Base Excess -2.2 (-2-2) L Dave Test Positive Height (Feet): 5 Height (Inches): 9.00 Weight (Pounds): 219 General Appearance: lethargic Cardiovascular: normal rate Respiratory/Chest: normal breath sounds, no respiratory distress Abdominal Exam: normal bowel sounds, non tender, soft, ascites Ayo Lamar [employer]DER Jun 21, 2019 12:21
--- NOTE | 2019-06-21 13:47 | Nephrology Progress Note ---
Assessment/Plan Problem List: (1) End-stage liver disease (2) Hepatorenal syndrome (3) Pancreatitis, alcoholic, acute (4) Acute alcoholic intoxication (5) Anemia (6) Respiratory failure Assessment Acute alcoholic intoxication End-stage liver disease Hepatorenal syndrome Pancreatitis, alcoholic, acute Anemia Plan k and Mag and phos supplement as needed IV Fluids Correct lytes IV protonix lactulose Folate and Thiamin per GI transfuse per consultants Subjective ROS Limited/Unobtainable: Yes Objective Objective Last 24 Hour Vital Signs Date Time Temp Pulse Resp B/P (MAP) Pulse Ox O2 Delivery O2 Flow Rate FiO2 06/21/19 12:00 101.5 134 52 113/71 (85) 96 06/21/19 11:34 133 06/21/19 08:00 130 06/21/19 08:00 98.6 131 24 108/64 (79) 93 06/21/19 08:00 Venturi Mask 4.0 06/21/19 04:00 136 06/21/19 04:00 98.6 136 19 110/73 (85) 96 06/21/19 00:00 134 06/21/19 00:00 99.5 131 18 94/57 (69) 95 06/20/19 21:00 Nasal Cannula 2.0 06/20/19 20:00 130 06/20/19 20:00 97.9 137 19 104/83 (90) 95 06/20/19 16:00 126 06/20/19 16:00 99.6 141 20 101/56 (71) 93 Intake and Output 06/20/19 06/21/19 19:00 07:00 Output Total 50 ml Balance -50 ml Output Urine Total 50 ml # Voids 2 2 # Bowel Movements 1 2 Laboratory Tests 06/21/19 05:50: White Blood Count 13.9H, Red Blood Count 2.58L, Hemoglobin 7.7L, Hematocrit 23.9L, Mean Corpuscular Volume 93, Mean Corpuscular Hemoglobin 29.8, Mean Corpuscular Hemoglobin Concent 32.2, Red Cell Distribution Width 17.9H, Platelet Count 97L, Mean Platelet Volume 8.1, Neutrophils (%) (Auto) , Lymphocytes (%) (Auto) , Monocytes (%) (Auto) , Eosinophils (%) (Auto) , Basophils (%) (Auto) , Differential Total Cells Counted 100, Neutrophils % ( Manual) 74, Lymphocytes % (Manual) 11L, Monocytes % (Manual) 2, Eosinophils % ( Manual) 0, Basophils % (Manual) 0, Band Neutrophils 13H, Nucleated Red Blood Cells 1, Platelet Estimate DecreasedL, Platelet Morphology Normal, Hypochromasia 3+, Anisocytosis 3+, Target Cells 3+, Sodium Level 139, Potassium Level 2.6*L, Chloride Level 103, Carbon Dioxide Level 20L, Anion Gap 16H, Blood Urea Nitrogen 33H, Creatinine 2.2H, Estimat Glomerular Filtration Rate 33.5, Glucose Level 131H, Uric Acid 10.2H, Calcium Level 7.9L, Phosphorus Level 1.4L, Magnesium Level 2.2, Total Bilirubin 20.6H, Direct Bilirubin 17.2H, Aspartate Amino Transf (AST/SGOT) 253H, Alanine Aminotransferase (ALT/SGPT) 18, Alkaline Phosphatase 493H, Ammonia 115H, C-Reactive Protein, Quantitative 11.0H, Pro-B- Type Natriuretic Peptide 372H, Total Protein 6.3L, Albumin 2.1L, Globulin 4.2, Albumin/Globulin Ratio 0.5L, Amylase Level 83, Lipase 483H 06/21/19 10:11: Arterial Blood pH 7.529H, Arterial Blood Partial Pressure CO2 24.4*L, Arterial Blood Partial Pressure O2 73.8L, Arterial Blood HCO3 19.9L, Arterial Blood Oxygen Saturation 94.9L, Arterial Blood Base Excess -2.2L, Dave Test Positive Height (Feet): 5 Height (Inches): 9.00 Weight (Pounds): 219 General Appearance: moderate distress Cardiovascular: tachycardia Respiratory/Chest: decreased breath sounds, other - tachypneic Abdomen: distended Extremities: other - edematous Arthur Lay MD Jun 21, 2019 13:47
[2019-06-21] MEDS ORDERED: cefTRIAXone 2 GM in D5W 55 ML IVPB SCH ×2 (14:00→15:00)
--- NOTE | 2019-06-21 14:43 | Diagnostic Imaging Report ---
Indication: Shortness of breath Technique: One view of the chest Comparison: 06/20/2019 Findings: Much less optimal inspiration currently. Lungs and pleural spaces are clear. The heart is upper limits of normal in size. Impression: Hypoventilatory exam. No acute process
[2019-06-21] MEDS ORDERED: Ipratropium 0.02% Inh Soln 2.5ml UD HHN PRN (15:00)
[2019-06-21] MEDS ORDERED: Albuterol/Ipratropium 3ml neb HHN SCH ×2 (15:00)
[2019-06-21] MEDS: Ipratropium 0.02% Inh Soln 2.5ml UD HHN SCH ×3 (15:00→23:44)
--- NOTE | 2019-06-21 15:07 | Pulmonolgy Critical Care Note ---
Critical Care - Asmt/Plan Assessment/Plan: Pulmonary CCM Consultation HPI This is a 39-year-old male who is an alcoholic with significant fatty liver on abdominal CT and alcoholic hepatitis, DF 16, not candidate for seroids currently per GI. He has been drinking heavily for 3 months straight. He stopped drinking yesterday. He felt weak and wanted to go to the hospital. No bleeding. No nausea no vomiting. Nothing made it better. Movement or exertion makes it worse. Noted to have significant hypokalemia and alkalosis, evidence of sepsis, source unclear - some bacteria in urine, mid ascites - possible SBP, dilated Gallbladder - possible acalculous cholecystitis Allergies: No Known Allergies Past Medical History: Alcohol abuse All Other Systems: negative except mentioned in HPI Physical Exam Vital Signs Noted Date Time Temp Pulse Resp B/P (MAP) Pulse Ox O2 Delivery O2 Flow Rate FiO2 06/20/19 02:49 98.4 116 15 88/55 (66) 93 Room Air General Appearance: Jaundiced, ill appearing, foetor hepaticus, somnolent Head: normocephalic, atraumatic Eyes: bilateral eye PERRL, bilateral eye EOMI, bilateral eye scleral icterus ENT: moist mm Neck: no masses, no LN Respiratory: chest non-tender, lungs clear, normal breath sounds Cardiovascular: regular rate, rhythm, Normal HS1, HS2, no murmur, tachycardia Gastrointestinal: Obese, hepatomegaly, some tenderness RUQ, normal bowel sounds , no mass, no rebound Musculoskeletal: moves all limbs Neurologic: responds to commands, drowsy Skin: jaundiced, moderate edema Impression: Acute alcoholic intoxication Severe Sepsis Alcoholic Hepatitis Possible Cirrhosis Metabolic and respiratory alkalosis Possible Portal Hypertension Hepatorenal syndrome Pancreatitis, alcoholic, acute Anemia Plan ICU management NPO except meds IV antibiotics per ID Aspiration precautions Defer decison on NG tube to GI - may have varices IVF PRN Transfuse PRN Thiamine Monitor labs K supplementation Adjust FIO2 - sats 90-96% If have wosening AMS may require intubation for airway protection Labs: noted EKG: Rate: tachycardiac Rhythm: NSR ST Segments: other - NSST changes Chest X-Ray: hypoventilatory exam, no consolidation, no effusion, no pneumothorax, no acute cardiopulmonary disease CT abdomen pelvis: Severely enlarged liver and fatty liver. Mild ascites. Critical Care - Objective Last 24 Hour Vital Signs Date Time Temp Pulse Resp B/P (MAP) Pulse Ox O2 Delivery O2 Flow Rate FiO2 06/21/19 12:00 101.5 134 52 113/71 (85) 96 06/21/19 11:34 133 06/21/19 08:00 130 06/21/19 08:00 98.6 131 24 108/64 (79) 93 06/21/19 08:00 Venturi Mask 4.0 06/21/19 04:00 136 06/21/19 04:00 98.6 136 19 110/73 (85) 96 06/21/19 00:00 134 06/21/19 00:00 99.5 131 18 94/57 (69) 95 06/20/19 21:00 Nasal Cannula 2.0 06/20/19 20:00 130 06/20/19 20:00 97.9 137 19 104/83 (90) 95 06/20/19 16:00 126 06/20/19 16:00 99.6 141 20 101/56 (71) 93 Critical Care - Subjective ROS Limited/Unobtainable: No I&O: Intake and Output 06/20/19 06/21/19 19:00 07:00 Output Total 50 ml Balance -50 ml Output Urine Total 50 ml # Voids 2 2 # Bowel Movements 1 2 Quang Domingo MD Jun 21, 2019 15:07
--- NOTE | 2019-06-21 16:10 | Cardiac Electrophysiology PN ---
Assessment/Plan Assessment/Plan 1. Tachycardia. This is likely due to alcohol withdrawal. This is sinus tachycardia. No evidence of atrial fibrillation. Echo EF 55% 2. Hepatic failure and cirrhosis. His GGT is 1690, AST is 268, and alkaline phosphatase is 503. His total bilirubin is 17 . On Lactulose. Further evaluation by GI. 3. Hepatorenal syndrome. Creatinine is 2. Further evaluation by . 4. Hypokalemia. 5. Alcohol intoxication. Thiamine, folate, and Librium. QUYNH RN Subjective Subjective Transferred to ICU for fever, tachypnea and tachycardia and ALOC Objective Last 24 Hour Vital Signs Date Time Temp Pulse Resp B/P (MAP) Pulse Ox O2 Delivery O2 Flow Rate FiO2 06/21/19 15:05 130 40 97 Venturi Mask 8.0 40 06/21/19 15:02 131 40 97 Venturi Mask 8.0 40 130 40 97 06/21/19 14:58 131 38 128/87 (101) 97 06/21/19 14:00 128 41 104/61 (75) 98 06/21/19 14:00 127 06/21/19 13:45 101.1 127 36 104/61 (75) 93 06/21/19 12:00 101.5 134 52 113/71 (85) 96 06/21/19 11:34 133 06/21/19 08:00 130 06/21/19 08:00 98.6 131 24 108/64 (79) 93 06/21/19 08:00 Venturi Mask 4.0 06/21/19 04:00 136 06/21/19 04:00 98.6 136 19 110/73 (85) 96 06/21/19 00:00 134 06/21/19 00:00 99.5 131 18 94/57 (69) 95 06/20/19 21:00 Nasal Cannula 2.0 06/20/19 20:00 130 06/20/19 20:00 97.9 137 19 104/83 (90) 95 Intake and Output 06/20/19 06/21/19 19:00 07:00 Output Total 50 ml Balance -50 ml Output Urine Total 50 ml # Voids 2 2 # Bowel Movements 1 2 Laboratory Tests Test 06/21/19 05:50 06/21/19 10:11 White Blood Count 13.9 K/UL (4.8-10.8) H Red Blood Count 2.58 M/UL (4.70-6.10) L Hemoglobin 7.7 G/DL (14.2-18.0) L Hematocrit 23.9 % (42.0-52.0) L Mean Corpuscular Volume 93 FL (80-99) Mean Corpuscular Hemoglobin 29.8 PG (27.0-31.0) Mean Corpuscular Hemoglobin Concent 32.2 G/DL (32.0-36.0) Red Cell Distribution Width 17.9 % (11.6-14.8) H Platelet Count 97 K/UL (150-450) L Mean Platelet Volume 8.1 FL (6.5-10.1) Neutrophils (%) (Auto) % (45.0-75.0) Lymphocytes (%) (Auto) % (20.0-45.0) Monocytes (%) (Auto) % (1.0-10.0) Eosinophils (%) (Auto) % (0.0-3.0) Basophils (%) (Auto) % (0.0-2.0) Differential Total Cells Counted 100 Neutrophils % (Manual) 74 % (45-75) Lymphocytes % (Manual) 11 % (20-45) L Monocytes % (Manual) 2 % (1-10) Eosinophils % (Manual) 0 % (0-3) Basophils % (Manual) 0 % (0-2) Band Neutrophils 13 % (0-8) H Nucleated Red Blood Cells 1 /100 WBC Platelet Estimate Decreased L Platelet Morphology Normal Hypochromasia 3+ Anisocytosis 3+ Target Cells 3+ Sodium Level 139 MMOL/L (136-145) Potassium Level 2.6 MMOL/L (3.5-5.1) *L Chloride Level 103 MMOL/L (98-107) Carbon Dioxide Level 20 MMOL/L (21-32) L Anion Gap 16 mmol/L (5-15) H Blood Urea Nitrogen 33 mg/dL (7-18) H Creatinine 2.2 MG/DL (0.55-1.30) H Estimat Glomerular Filtration Rate 33.5 mL/min (>60) Glucose Level 131 MG/DL (74-106) H Uric Acid 10.2 MG/DL (2.6-7.2) H Calcium Level 7.9 MG/DL (8.5-10.1) L Phosphorus Level 1.4 MG/DL (2.5-4.9) L Magnesium Level 2.2 MG/DL (1.8-2.4) Total Bilirubin 20.6 MG/DL (0.2-1.0) H Direct Bilirubin 17.2 MG/DL (0.0-0.3) H Aspartate Amino Transf (AST/SGOT) 253 U/L (15-37) H Alanine Aminotransferase (ALT/SGPT) 18 U/L (12-78) Alkaline Phosphatase 493 U/L (46-116) H Ammonia 115 umol/L (11-32) H C-Reactive Protein, Quantitative 11.0 mg/dL (0.00-0.90) H Pro-B-Type Natriuretic Peptide 372 pg/mL (0-125) H Total Protein 6.3 G/DL (6.4-8.2) L Albumin 2.1 G/DL (3.4-5.0) L Globulin 4.2 g/dL Albumin/Globulin Ratio 0.5 (1.0-2.7) L Amylase Level 83 U/L (25-115) Lipase 483 U/L (73-393) H Arterial Blood pH 7.529 (7.350-7.450) Arterial Blood Partial Pressure CO2 24.4 mmHg (35.0-45.0) *L Arterial Blood Partial Pressure O2 73.8 mmHg (75.0-100.0) L Arterial Blood HCO3 19.9 mmol/L (22.0-26.0) L Arterial Blood Oxygen Saturation 94.9 % (95-100) L Arterial Blood Base Excess -2.2 (-2-2) L Dave Test Positive Objective HEAD AND NECK: Shows no JVD. Sclera is jaundiced. LUNGS: Decreased breath sounds. CARDIOVASCULAR: Shows tachycardic. S1 and S2 with no gallop. ABDOMEN: Distended. EXTREMITIES: A 2+ pitting edema. Felice Smith MD Jun 21, 2019 16:10
[2019-06-21] MEDS: Thiamine HCl 100 MG in D5W 55 ML IVPB SCH (16:34)
[2019-06-21] MEDS: LORazepam Inj 2mg/ml 1ml IV PRN (19:46)
--- NOTE | 2019-06-21 20:24 | General Progress Note ---
Assessment/Plan Problem List: (1) Anemia ICD Codes: D64.9 - Anemia, unspecified SNOMED: 924220985 Qualifiers: Qualified Codes: D64.9 - Anemia, unspecified (2) Acute alcoholic intoxication ICD Codes: F10.929 - Alcohol use, unspecified with intoxication, unspecified SNOMED: 42249680, 4516795 Qualifiers: Qualified Codes: F10.920 - Alcohol use, unspecified with intoxication, uncomplicated (3) End-stage liver disease ICD Codes: K72.90 - Hepatic failure, unspecified without coma SNOMED: 014242060 (4) Hepatorenal syndrome ICD Codes: K76.7 - Hepatorenal syndrome SNOMED: 02517635, 6511749 (5) Pancreatitis, alcoholic, acute ICD Codes: K85.20 - Alcohol induced acute pancreatitis without necrosis or infection SNOMED: 691864328, 4310754 Qualifiers: Qualified Codes: K85.20 - Alcohol induced acute pancreatitis without necrosis or infection (6) Respiratory failure ICD Codes: J96.90 - Respiratory failure, unspecified, unspecified whether with hypoxia or hypercapnia SNOMED: 172463891 Status: not improved, unchanged, deteriorating Assessment/Plan: respiratory failure transfer t [facility] etoh cirrhosis jaundice hepatic encephalopathy tachypnic dr denise is consulted already Subjective ROS Limited/Unobtainable: Yes Allergies: Coded Allergies: No Known Allergies (Unverified , 06/20/19) Objective Last 24 Hour Vital Signs Date Time Temp Pulse Resp B/P (MAP) Pulse Ox O2 Delivery O2 Flow Rate FiO2 06/21/19 18:00 118 37 92/54 (67) 97 06/21/19 17:00 123 38 92/57 (69) 95 06/21/19 16:00 98.5 123 40 99/59 (72) 96 06/21/19 16:00 Venturi Mask 10.0 06/21/19 15:05 130 40 97 Venturi Mask 8.0 40 06/21/19 15:02 131 40 97 Venturi Mask 8.0 40 130 40 97 06/21/19 14:58 131 38 128/87 (101) 97 06/21/19 14:00 128 41 104/61 (75) 98 06/21/19 14:00 127 06/21/19 13:45 101.1 127 36 104/61 (75) 93 06/21/19 12:00 101.5 134 52 113/71 (85) 96 06/21/19 11:34 133 06/21/19 08:00 130 06/21/19 08:00 98.6 131 24 108/64 (79) 93 06/21/19 08:00 Venturi Mask 4.0 06/21/19 04:00 136 06/21/19 04:00 98.6 136 19 110/73 (85) 96 06/21/19 00:00 134 06/21/19 00:00 99.5 131 18 94/57 (69) 95 06/20/19 21:00 Nasal Cannula 2.0 Intake and Output 06/20/19 06/21/19 19:00 07:00 Output Total 50 ml Balance -50 ml Output Urine Total 50 ml # Voids 2 2 # Bowel Movements 1 2 Laboratory Tests 06/21/19 05:50: White Blood Count 13.9H, Red Blood Count 2.58L, Hemoglobin 7.7L, Hematocrit 23.9L, Mean Corpuscular Volume 93, Mean Corpuscular Hemoglobin 29.8, Mean Corpuscular Hemoglobin Concent 32.2, Red Cell Distribution Width 17.9H, Platelet Count 97L, Mean Platelet Volume 8.1, Neutrophils (%) (Auto) , Lymphocytes (%) (Auto) , Monocytes (%) (Auto) , Eosinophils (%) (Auto) , Basophils (%) (Auto) , Differential Total Cells Counted 100, Neutrophils % ( Manual) 74, Lymphocytes % (Manual) 11L, Monocytes % (Manual) 2, Eosinophils % ( Manual) 0, Basophils % (Manual) 0, Band Neutrophils 13H, Nucleated Red Blood Cells 1, Platelet Estimate DecreasedL, Platelet Morphology Normal, Hypochromasia 3+, Anisocytosis 3+, Target Cells 3+, Sodium Level 139, Potassium Level 2.6*L, Chloride Level 103, Carbon Dioxide Level 20L, Anion Gap 16H, Blood Urea Nitrogen 33H, Creatinine 2.2H, Estimat Glomerular Filtration Rate 33.5, Glucose Level 131H, Uric Acid 10.2H, Calcium Level 7.9L, Phosphorus Level 1.4L, Magnesium Level 2.2, Total Bilirubin 20.6H, Direct Bilirubin 17.2H, Aspartate Amino Transf (AST/SGOT) 253H, Alanine Aminotransferase (ALT/SGPT) 18, Alkaline Phosphatase 493H, Ammonia 115H, C-Reactive Protein, Quantitative 11.0H, Pro-B- Type Natriuretic Peptide 372H, Total Protein 6.3L, Albumin 2.1L, Globulin 4.2, Albumin/Globulin Ratio 0.5L, Amylase Level 83, Lipase 483H 06/21/19 10:11: Arterial Blood pH 7.529H, Arterial Blood Partial Pressure CO2 24.4*L, Arterial Blood Partial Pressure O2 73.8L, Arterial Blood HCO3 19.9L, Arterial Blood Oxygen Saturation 94.9L, Arterial Blood Base Excess -2.2L, Dave Test Positive Height (Feet): 5 Height (Inches): 9.00 Weight (Pounds): 219 General Appearance: lethargic, confused Deejay Saldaña MD Jun 21, 2019 20:24
--- NOTE | 2019-06-21 21:46 | Diagnostic Imaging Report ---
Indication: NG tube placement Comparison: None Single view of the abdomen obtained Findings: Bowel gas pattern is nonspecific. There is an enteric tube within the stomach in good position. No mass, ectopic calcifications, or abnormal gas collections are identified. The bones are unremarkable. Impression: NG tube in good position. Note: Please refer to the CT report from the previous day
[2019-06-21] MEDS ORDERED: metroNIDAZOLE 500mg tab ORAL SCH (22:00)
[2019-06-22] VITALS (24 sets, daily range): BP systolic 76–115; BP diastolic 44–95
[2019-06-22] MEDS: Ipratropium 0.02% Inh Soln 2.5ml UD HHN SCH ×7 (02:59→23:22)
[2019-06-22 04:52] LABS: EOSINOPHILS % (AUTO) 2.3 % (0.0-3.0); HEMATOCRIT 25.7 % (42.0-52.0); HEMOGLOBIN 8.2 G/DL (14.2-18.0); LYMPHOCYTES % (AUTO) 8.2 % (20.0-45.0); MEAN CORPUSCULAR VOLUME 93 FL (80-99); MONOCYTES % (AUTO) 5.9 % (1.0-10.0); NEUTROPHILS % (AUTO) 82.7 % (45.0-75.0); PLATELET COUNT 117 K/UL (150-450); RED BLOOD COUNT 2.75 M/UL (4.70-6.10); WHITE BLOOD COUNT 14.3 K/UL (4.8-10.8)
[2019-06-22 05:24] LABS: PHOSPHORUS 1.9 MG/DL (2.5-4.9)
[2019-06-22 05:25] LABS: AMMONIA 126 umol/L (11-32)
[2019-06-22 05:34] LABS: ALANINE AMINOTRANSFERASE 15 U/L (12-78); ALBUMIN/GLOBULIN RATIO 0.5 (1.0-2.7); ALKALINE PHOSPHATASE 439 U/L (46-116); ANION GAP 16 mmol/L (5-15); ASPARTATE AMINO TRANSFERASE 191 U/L (15-37); BILIRUBIN,TOTAL 23.1 MG/DL (0.2-1.0); BLOOD UREA NITROGEN 36 mg/dL (7-18); CALCIUM 7.8 MG/DL (8.5-10.1); CARBON DIOXIDE 19 MMOL/L (21-32); CHLORIDE 108 MMOL/L (98-107); SODIUM 143 MMOL/L (136-145)
[2019-06-22 05:38] LABS: BILIRUBIN,DIRECT 17.7 MG/DL (0.0-0.3)
[2019-06-22] MEDS: metroNIDAZOLE 500mg tab ORAL SCH (06:24)
[2019-06-22] MEDS: Lactulose 20gm/30ml UDC ORAL SCH ×2 (08:32→13:07)
[2019-06-22] MEDS: Pantoprazole Inj IVP SCH ×2 (08:34→20:45)
[2019-06-22] MEDS: LORazepam Inj 2mg/ml 1ml IV PRN (08:48)
--- NOTE | 2019-06-22 09:24 | Infectious Diseases Prog Note ---
Assessment/Plan Assessment/Plan IMPRESSION: 1. Sepsis. 2. Systemic inflammatory response syndrome. 3. Tachycardia. 4. Leukocytosis. 5. colitis, 6.Alcoholic pancreatitis, 7.Cirrhosis of liver, 8. Acute renal failure likely hepatorenal syndrome, 9.Anemia, 10. thrombocytopenia, 11.hypocalcemia, 12.hypomagnesemia, 13 hypokalemia, 14, Alcohol withdrawal. 15.Metabolic encephalopathy RECOMMENDATION: Change ceftriaxone to Zosyn Blood culture Poor prognosis Subjective ROS Limited/Unobtainable: Yes Constitutional: Reports: fever Gastrointestinal/Abdominal: Reports: diarrhea Neurologic: Reports: confusion, other - on restraint Allergies: Coded Allergies: No Known Allergies (Unverified , 06/20/19) Objective Vital Signs Last 24 Hour Vital Signs Date Time Temp Pulse Resp B/P (MAP) Pulse Ox O2 Delivery O2 Flow Rate FiO2 06/22/19 07:47 120 40 100 Venturi Mask 8.0 40 120 35 98 06/22/19 07:33 98 06/22/19 07:00 129 36 111/58 (75) 96 06/22/19 06:49 102.4 06/22/19 06:00 127 40 98/60 (73) 95 06/22/19 05:23 127 06/22/19 05:00 126 34 76/44 (55) 95 06/22/19 04:00 100.4 126 34 97/49 (65) 95 06/22/19 04:00 Venturi Mask 8.0 06/22/19 03:00 122 35 85/51 (62) 96 06/22/19 02:57 124 40 97 Venturi Mask 6.0 35 124 36 96 06/22/19 02:00 125 30 96/56 (69) 96 06/22/19 01:00 124 30 98/57 (71) 96 06/22/19 00:00 125 06/22/19 00:00 Venturi Mask 8.0 06/22/19 00:00 99.2 126 35 104/68 (80) 96 06/21/19 23:44 123 38 97 Venturi Mask 6.0 35 120 26 96 06/21/19 23:00 121 30 118/79 (92) 97 06/21/19 22:00 123 30 98/60 (73) 95 06/21/19 21:45 96 Venturi Mask 6.0 35 06/21/19 21:45 121 34 98 Venturi Mask 8.0 40 120 34 96 06/21/19 21:00 128 30 113/75 (88) 97 06/21/19 20:00 Venturi Mask 8.0 06/21/19 20:00 122 06/21/19 20:00 98.6 117 36 99/58 (72) 98 06/21/19 19:00 120 37 91/69 (76) 97 06/21/19 18:00 118 37 92/54 (67) 97 06/21/19 17:00 123 38 92/57 (69) 95 06/21/19 16:00 98.5 123 40 99/59 (72) 96 06/21/19 16:00 Venturi Mask 10.0 06/21/19 15:05 130 40 97 Venturi Mask 8.0 40 06/21/19 15:02 131 40 97 Venturi Mask 8.0 40 130 40 97 06/21/19 14:58 131 38 128/87 (101) 97 06/21/19 14:00 128 41 104/61 (75) 98 06/21/19 14:00 127 06/21/19 13:45 101.1 127 36 104/61 (75) 93 06/21/19 12:00 101.5 134 52 113/71 (85) 96 06/21/19 11:34 133 Height (Feet): 5 Height (Inches): 9.00 Weight (Pounds): 219 HEENT: other - icterus Respiratory/Chest: lungs clear Cardiovascular: tachycardia Abdomen: distended, other - umbilical hernia, NG tube & rectal tube Extremities: other - mild edemaof legs Neurologic/Psychiatric: disoriented Laboratory Tests Test 06/21/19 10:11 06/22/19 04:00 06/22/19 06:58 Arterial Blood pH 7.529 (7.350-7.450) 7.509 (7.350-7.450) Arterial Blood Partial Pressure CO2 24.4 mmHg (35.0-45.0) *L 22.7 mmHg (35.0-45.0) *L Arterial Blood Partial Pressure O2 73.8 mmHg (75.0-100.0) L 92.9 mmHg (75.0-100.0) Arterial Blood HCO3 19.9 mmol/L (22.0-26.0) L 17.7 mmol/L (22.0-26.0) *L Arterial Blood Oxygen Saturation 94.9 % (95-100) L 96.7 % (95-100) Arterial Blood Base Excess -2.2 (-2-2) L -4.3 (-2-2) L Dave Test Positive Positive White Blood Count 14.3 K/UL (4.8-10.8) H Red Blood Count 2.75 M/UL (4.70-6.10) L Hemoglobin 8.2 G/DL (14.2-18.0) L Hematocrit 25.7 % (42.0-52.0) L Mean Corpuscular Volume 93 FL (80-99) Mean Corpuscular Hemoglobin 30.0 PG (27.0-31.0) Mean Corpuscular Hemoglobin Concent 32.1 G/DL (32.0-36.0) Red Cell Distribution Width 18.0 % (11.6-14.8) H Platelet Count 117 K/UL (150-450) L Mean Platelet Volume 8.5 FL (6.5-10.1) Neutrophils (%) (Auto) 82.7 % (45.0-75.0) H Lymphocytes (%) (Auto) 8.2 % (20.0-45.0) L Monocytes (%) (Auto) 5.9 % (1.0-10.0) Eosinophils (%) (Auto) 2.3 % (0.0-3.0) Basophils (%) (Auto) 1.0 % (0.0-2.0) Sodium Level 143 MMOL/L (136-145) Potassium Level 3.0 MMOL/L (3.5-5.1) L Chloride Level 108 MMOL/L (98-107) H Carbon Dioxide Level 19 MMOL/L (21-32) L Anion Gap 16 mmol/L (5-15) H Blood Urea Nitrogen 36 mg/dL (7-18) H Creatinine 2.0 MG/DL (0.55-1.30) H Estimat Glomerular Filtration Rate 37.4 mL/min (>60) Glucose Level 126 MG/DL (74-106) H Uric Acid 10.2 MG/DL (2.6-7.2) H Calcium Level 7.8 MG/DL (8.5-10.1) L Phosphorus Level 1.9 MG/DL (2.5-4.9) L Magnesium Level 1.9 MG/DL (1.8-2.4) Total Bilirubin 23.1 MG/DL (0.2-1.0) H Direct Bilirubin 17.7 MG/DL (0.0-0.3) H Gamma Glutamyl Transpeptidase 1379 U/L (5-85) H Aspartate Amino Transf (AST/SGOT) 191 U/L (15-37) H Alanine Aminotransferase (ALT/SGPT) 15 U/L (12-78) Alkaline Phosphatase 439 U/L (46-116) H Ammonia 126 umol/L (11-32) H Troponin I 0.024 ng/mL (0.000-0.056) C-Reactive Protein, Quantitative 9.8 mg/dL (0.00-0.90) H Pro-B-Type Natriuretic Peptide 242 pg/mL (0-125) H Total Protein 6.2 G/DL (6.4-8.2) L Albumin 2.0 G/DL (3.4-5.0) L Globulin 4.2 g/dL Albumin/Globulin Ratio 0.5 (1.0-2.7) L Lipase 407 U/L (73-393) H Current Medications Medications (Trade) Dose Ordered Sig/Gabriela Route PRN Reason Start Time Stop Time Status Last Admin Dose Admin Acetaminophen (Tylenol) 325 mg Q6H PRN ORAL Mild Pain/Temp > 100.5 06/21/19 14:17 07/21/19 14:16 Ceftriaxone Sodium 2 gm/ Dextrose 55 ml @ 110 mls/hr Q24H IVPB 06/21/19 15:00 06/28/19 14:59 06/21/19 15:19 Dextrose/Sodium Chloride 1,000 ml @ 50 mls/hr Q20H IV 06/21/19 14:16 07/21/19 14:15 06/21/19 15:18 Folic Acid (Folate) 5 mg DAILY ORAL 06/22/19 09:00 07/20/19 12:44 06/22/19 08:38 Furosemide (Lasix) 40 mg DAILY IV 06/22/19 09:00 07/21/19 08:59 06/22/19 08:33 Ipratropium [place] (Atrovent) 500 mcg Q4H PRN HHN Shortness of Breath 06/21/19 15:00 06/26/19 14:59 Ipratropium [place] (Atrovent) 500 mcg Q4HRT HHN 06/21/19 16:45 06/26/19 16:44 06/22/19 07:47 Lactulose (Cephulac) 30 gm FOUR TIMES A DAY ORAL 06/21/19 18:00 07/20/19 12:59 06/22/19 08:32 Lorazepam (Ativan 2mg/ml 1ml) 1 mg Q4H PRN IV For Anxiety 06/21/19 14:17 06/28/19 14:16 06/22/19 08:48 Metronidazole (Flagyl) 500 mg Q8HR ORAL 06/21/19 14:19 06/28/19 14:18 06/22/19 06:24 Pantoprazole (Protonix) 40 mg EVERY 12 HOURS IVP 06/21/19 21:00 07/20/19 20:59 06/22/19 08:34 Rifaximin (Xifaxan) 550 mg EVERY 12 HOURS ORAL 06/21/19 21:00 06/28/19 20:59 06/22/19 08:39 Thiamine HCl 100 mg/Dextrose 56 ml @ 112 mls/hr Q24H IVPB 06/21/19 15:00 07/20/19 14:59 06/21/19 16:34 Ilia Chakraborty MD Jun 22, 2019 09:24
[2019-06-22] MEDS: Acetaminophen 650mg/20.3ml NG PRN (10:30)
[2019-06-22] MEDS ORDERED: Tubing Blood Filter IV ONE (10:33)
[2019-06-22] MEDS ORDERED: Tubing IV Secondary IV ONE ×2 (10:33→21:33)
[2019-06-22] MEDS ORDERED: D5NS 1000ml IV ONE ×2 (10:33→21:33)
[2019-06-22] MEDS: Piperacillin/Tazobactam 3.375 GM in NS 110 ML IVPB SCH ×3 (10:43→21:54)
[2019-06-22] MEDS: D5NS 1,000 ML IV SCH (11:00)
[2019-06-22] MEDS ORDERED: Sodium Phosphate 30 MM in NS 275 ML IVPB ONE (11:00)
--- NOTE | 2019-06-22 11:10 | Nephrology Progress Note ---
Assessment/Plan Problem List: (1) End-stage liver disease (2) Hepatorenal syndrome (3) Pancreatitis, alcoholic, acute (4) Acute alcoholic intoxication (5) Anemia (6) Respiratory failure Assessment Acute alcoholic intoxication End-stage liver disease Hepatorenal syndrome Pancreatitis, alcoholic, acute Anemia Plan k and Mag and phos supplement as needed has keith has RT (rectal tube) slow IV Fluids Correct lytes IV protonix lactulose Folate and Thiamin per GI transfuse per consultants Subjective ROS Limited/Unobtainable: Yes Objective Objective Last 24 Hour Vital Signs Date Time Temp Pulse Resp B/P (MAP) Pulse Ox O2 Delivery O2 Flow Rate FiO2 06/22/19 07:47 120 40 100 Venturi Mask 8.0 40 120 35 98 06/22/19 07:33 98 06/22/19 07:00 129 36 111/58 (75) 96 06/22/19 06:49 102.4 06/22/19 06:00 127 40 98/60 (73) 95 06/22/19 05:23 127 06/22/19 05:00 126 34 76/44 (55) 95 06/22/19 04:00 100.4 126 34 97/49 (65) 95 06/22/19 04:00 Venturi Mask 8.0 06/22/19 03:00 122 35 85/51 (62) 96 06/22/19 02:57 124 40 97 Venturi Mask 6.0 35 124 36 96 06/22/19 02:00 125 30 96/56 (69) 96 06/22/19 01:00 124 30 98/57 (71) 96 06/22/19 00:00 125 06/22/19 00:00 Venturi Mask 8.0 06/22/19 00:00 99.2 126 35 104/68 (80) 96 06/21/19 23:44 123 38 97 Venturi Mask 6.0 35 120 26 96 06/21/19 23:00 121 30 118/79 (92) 97 06/21/19 22:00 123 30 98/60 (73) 95 06/21/19 21:45 96 Venturi Mask 6.0 35 06/21/19 21:45 121 34 98 Venturi Mask 8.0 40 120 34 96 06/21/19 21:00 128 30 113/75 (88) 97 06/21/19 20:00 Venturi Mask 8.0 06/21/19 20:00 122 06/21/19 20:00 98.6 117 36 99/58 (72) 98 06/21/19 19:00 120 37 91/69 (76) 97 06/21/19 18:00 118 37 92/54 (67) 97 06/21/19 17:00 123 38 92/57 (69) 95 06/21/19 16:00 98.5 123 40 99/59 (72) 96 06/21/19 16:00 Venturi Mask 10.0 06/21/19 15:05 130 40 97 Venturi Mask 8.0 40 06/21/19 15:02 131 40 97 Venturi Mask 8.0 40 130 40 97 06/21/19 14:58 131 38 128/87 (101) 97 06/21/19 14:00 128 41 104/61 (75) 98 06/21/19 14:00 127 06/21/19 13:45 101.1 127 36 104/61 (75) 93 06/21/19 12:00 101.5 134 52 113/71 (85) 96 06/21/19 11:34 133 Intake and Output 06/21/19 06/22/19 18:59 06:59 Intake Total 2057 ml Output Total 120 ml 940 ml Balance -120 ml 1117 ml Free Water 100 ml IV Total 1657 ml Blood Product 300 ml Output Urine Total 120 ml 440 ml Stool Total 500 ml # Voids 3 # Bowel Movements 2 Laboratory Tests 06/22/19 04:00: White Blood Count 14.3H, Red Blood Count 2.75L, Hemoglobin 8.2L, Hematocrit 25.7L, Mean Corpuscular Volume 93, Mean Corpuscular Hemoglobin 30.0, Mean Corpuscular Hemoglobin Concent 32.1, Red Cell Distribution Width 18.0H, Platelet Count 117L, Mean Platelet Volume 8.5, Neutrophils (%) (Auto) 82.7H, Lymphocytes (%) (Auto) 8.2L, Monocytes (%) (Auto) 5.9, Eosinophils (%) (Auto) 2.3, Basophils (%) (Auto) 1.0, Sodium Level 143, Potassium Level 3.0L, Chloride Level 108H, Carbon Dioxide Level 19L, Anion Gap 16H, Blood Urea Nitrogen 36H, Creatinine 2.0H, Estimat Glomerular Filtration Rate 37.4, Glucose Level 126H, Uric Acid 10.2H, Calcium Level 7.8L, Phosphorus Level 1.9L, Magnesium Level 1.9 , Total Bilirubin 23.1H, Direct Bilirubin 17.7H, Gamma Glutamyl Transpeptidase 1379H, Aspartate Amino Transf (AST/SGOT) 191H, Alanine Aminotransferase (ALT/ SGPT) 15, Alkaline Phosphatase 439H, Ammonia 126H, Troponin I 0.024, C-Reactive Protein, Quantitative 9.8H, Pro-B-Type Natriuretic Peptide 242H, Total Protein 6.2L, Albumin 2.0L, Globulin 4.2, Albumin/Globulin Ratio 0.5L, Lipase 407H 06/22/19 06:58: Arterial Blood pH 7.509H, Arterial Blood Partial Pressure CO2 22.7*L, Arterial Blood Partial Pressure O2 92.9, Arterial Blood HCO3 17.7*L, Arterial Blood Oxygen Saturation 96.7, Arterial Blood Base Excess -4.3L, Dave Test Positive Height (Feet): 5 Height (Inches): 9.00 Weight (Pounds): 219 General Appearance: no apparent distress, lethargic, confused EENT: other - icteric Cardiovascular: tachycardia Respiratory/Chest: decreased breath sounds Abdomen: distended Arthur Lay MD Jun 22, 2019 11:10
--- NOTE | 2019-06-22 11:35 | General Progress Note ---
Assessment/Plan Problem List: (1) Pancreatitis, alcoholic, acute ICD Codes: K85.20 - Alcohol induced acute pancreatitis without necrosis or infection SNOMED: 240849314, [id number] Qualifiers: Qualified Codes: K85.20 - Alcohol induced acute pancreatitis without necrosis or infection (2) Acute alcoholic intoxication ICD Codes: F10.929 - Alcohol use, unspecified with intoxication, unspecified SNOMED: 46088093, 4223516 Qualifiers: Qualified Codes: F10.920 - Alcohol use, unspecified with intoxication, uncomplicated (3) Anemia ICD Codes: D64.9 - Anemia, unspecified SNOMED: [id number] Qualifiers: Qualified Codes: D64.9 - Anemia, unspecified Status: not improved, unchanged, deteriorating Assessment/Plan: discriminant factor of 16 iv thiamine start NGTF ivf>> will HL if tolerated NGTF repeat labs fu nephrology cont lactulose add xifaxan s/p blood transfusion Subjective ROS Limited/Unobtainable: No Allergies: Coded Allergies: No Known Allergies (Unverified , 06/20/19) Objective Last 24 Hour Vital Signs Date Time Temp Pulse Resp B/P (MAP) Pulse Ox O2 Delivery O2 Flow Rate FiO2 06/22/19 11:28 109 23 95 Nasal Cannula 2.0 28 108 21 97 06/22/19 08:00 Venturi Mask 10.0 06/22/19 07:47 120 40 100 Venturi Mask 8.0 40 120 35 98 06/22/19 07:33 98 06/22/19 07:00 129 36 111/58 (75) 96 06/22/19 06:49 102.4 06/22/19 06:00 127 40 98/60 (73) 95 06/22/19 05:23 127 06/22/19 05:00 126 34 76/44 (55) 95 06/22/19 04:00 100.4 126 34 97/49 (65) 95 06/22/19 04:00 Venturi Mask 8.0 06/22/19 03:00 122 35 85/51 (62) 96 06/22/19 02:57 124 40 97 Venturi Mask 6.0 35 124 36 96 06/22/19 02:00 125 30 96/56 (69) 96 06/22/19 01:00 124 30 98/57 (71) 96 06/22/19 00:00 125 06/22/19 00:00 Venturi Mask 8.0 06/22/19 00:00 99.2 126 35 104/68 (80) 96 06/21/19 23:44 123 38 97 Venturi Mask 6.0 35 120 26 96 06/21/19 23:00 121 30 118/79 (92) 97 06/21/19 22:00 123 30 98/60 (73) 95 06/21/19 21:45 96 Venturi Mask 6.0 35 06/21/19 21:45 121 34 98 Venturi Mask 8.0 40 120 34 96 06/21/19 21:00 128 30 113/75 (88) 97 06/21/19 20:00 Venturi Mask 8.0 06/21/19 20:00 122 06/21/19 20:00 98.6 117 36 99/58 (72) 98 06/21/19 19:00 120 37 91/69 (76) 97 06/21/19 18:00 118 37 92/54 (67) 97 06/21/19 17:00 123 38 92/57 (69) 95 06/21/19 16:00 98.5 123 40 99/59 (72) 96 06/21/19 16:00 Venturi Mask 10.0 06/21/19 15:05 130 40 97 Venturi Mask 8.0 40 06/21/19 15:02 131 40 97 Venturi Mask 8.0 40 130 40 97 06/21/19 14:58 131 38 128/87 (101) 97 06/21/19 14:00 128 41 104/61 (75) 98 06/21/19 14:00 127 06/21/19 13:45 101.1 127 36 104/61 (75) 93 06/21/19 12:00 101.5 134 52 113/71 (85) 96 06/21/19 11:34 133 Intake and Output 06/21/19 06/22/19 18:59 06:59 Intake Total 2057 ml Output Total 120 ml 940 ml Balance -120 ml 1117 ml Free Water 100 ml IV Total 1657 ml Blood Product 300 ml Output Urine Total 120 ml 440 ml Stool Total 500 ml # Voids 3 # Bowel Movements 2 Laboratory Tests 06/22/19 04:00: White Blood Count 14.3H, Red Blood Count 2.75L, Hemoglobin 8.2L, Hematocrit 25.7L, Mean Corpuscular Volume 93, Mean Corpuscular Hemoglobin 30.0, Mean Corpuscular Hemoglobin Concent 32.1, Red Cell Distribution Width 18.0H, Platelet Count 117L, Mean Platelet Volume 8.5, Neutrophils (%) (Auto) 82.7H, Lymphocytes (%) (Auto) 8.2L, Monocytes (%) (Auto) 5.9, Eosinophils (%) (Auto) 2.3, Basophils (%) (Auto) 1.0, Sodium Level 143, Potassium Level 3.0L, Chloride Level 108H, Carbon Dioxide Level 19L, Anion Gap 16H, Blood Urea Nitrogen 36H, Creatinine 2.0H, Estimat Glomerular Filtration Rate 37.4, Glucose Level 126H, Uric Acid 10.2H, Calcium Level 7.8L, Phosphorus Level 1.9L, Magnesium Level 1.9 , Total Bilirubin 23.1H, Direct Bilirubin 17.7H, Gamma Glutamyl Transpeptidase 1379H, Aspartate Amino Transf (AST/SGOT) 191H, Alanine Aminotransferase (ALT/ SGPT) 15, Alkaline Phosphatase 439H, Ammonia 126H, Troponin I 0.024, C-Reactive Protein, Quantitative 9.8H, Pro-B-Type Natriuretic Peptide 242H, Total Protein 6.2L, Albumin 2.0L, Globulin 4.2, Albumin/Globulin Ratio 0.5L, Lipase 407H 06/22/19 06:58: Arterial Blood pH 7.509H, Arterial Blood Partial Pressure CO2 22.7*L, Arterial Blood Partial Pressure O2 92.9, Arterial Blood HCO3 17.7*L, Arterial Blood Oxygen Saturation 96.7, Arterial Blood Base Excess -4.3L, Dave Test Positive Height (Feet): 5 Height (Inches): 9.00 Weight (Pounds): 219 General Appearance: no apparent distress EENT: normal ENT inspection Neck: supple Cardiovascular: normal rate Respiratory/Chest: decreased breath sounds Abdomen: normal bowel sounds, non tender, soft Extremities: non-tender Merlin Esposito MD Jun 22, 2019 11:35
--- NOTE | 2019-06-22 13:19 | Cardiac Electrophysiology PN ---
Assessment/Plan Assessment/Plan 1. Sinus tachycardia due to alcohol withdrawal. No evidence of atrial fibrillation. Echo EF 55% 2. Hepatic failure and cirrhosis with GGT is 1690, AST is 268, and alkaline phosphatase is 503. His total bilirubin is 17 . On Lactulose. 3. Hepatorenal syndrome. Creatinine is 2. Further evaluation by . 4. Hypokalemia. 5. Alcohol intoxication. Thiamine, folate, and Librium. 6. Hepatic encephalopathy DW RN Subjective Subjective in ICU in restraints and lethargic. Paracentesis pending Objective Last 24 Hour Vital Signs Date Time Temp Pulse Resp B/P (MAP) Pulse Ox O2 Delivery O2 Flow Rate FiO2 06/22/19 11:28 109 23 95 Nasal Cannula 2.0 28 108 21 97 06/22/19 08:00 Venturi Mask 10.0 06/22/19 07:47 120 40 100 Venturi Mask 8.0 40 120 35 98 06/22/19 07:33 98 06/22/19 07:00 129 36 111/58 (75) 96 06/22/19 06:49 102.4 06/22/19 06:00 127 40 98/60 (73) 95 06/22/19 05:23 127 06/22/19 05:00 126 34 76/44 (55) 95 06/22/19 04:00 100.4 126 34 97/49 (65) 95 06/22/19 04:00 Venturi Mask 8.0 06/22/19 03:00 122 35 85/51 (62) 96 06/22/19 02:57 124 40 97 Venturi Mask 6.0 35 124 36 96 06/22/19 02:00 125 30 96/56 (69) 96 06/22/19 01:00 124 30 98/57 (71) 96 06/22/19 00:00 125 06/22/19 00:00 Venturi Mask 8.0 06/22/19 00:00 99.2 126 35 104/68 (80) 96 06/21/19 23:44 123 38 97 Venturi Mask 6.0 35 120 26 96 06/21/19 23:00 121 30 118/79 (92) 97 06/21/19 22:00 123 30 98/60 (73) 95 06/21/19 21:45 96 Venturi Mask 6.0 35 06/21/19 21:45 121 34 98 Venturi Mask 8.0 40 120 34 96 06/21/19 21:00 128 30 113/75 (88) 97 06/21/19 20:00 Venturi Mask 8.0 06/21/19 20:00 122 06/21/19 20:00 98.6 117 36 99/58 (72) 98 06/21/19 19:00 120 37 91/69 (76) 97 06/21/19 18:00 118 37 92/54 (67) 97 06/21/19 17:00 123 38 92/57 (69) 95 06/21/19 16:00 98.5 123 40 99/59 (72) 96 06/21/19 16:00 Venturi Mask 10.0 06/21/19 15:05 130 40 97 Venturi Mask 8.0 40 06/21/19 15:02 131 40 97 Venturi Mask 8.0 40 130 40 97 06/21/19 14:58 131 38 128/87 (101) 97 06/21/19 14:00 128 41 104/61 (75) 98 06/21/19 14:00 127 06/21/19 13:45 101.1 127 36 104/61 (75) 93 Intake and Output 06/21/19 06/22/19 19:00 07:00 Intake Total 400 ml 1707 ml Output Total 140 ml 940 ml Balance 260 ml 767 ml Free Water 100 ml IV Total 400 ml 1307 ml Blood Product 300 ml Output Urine Total 140 ml 440 ml Stool Total 500 ml # Voids 3 # Bowel Movements 2 Laboratory Tests Test 06/22/19 04:00 06/22/19 06:58 White Blood Count 14.3 K/UL (4.8-10.8) H Red Blood Count 2.75 M/UL (4.70-6.10) L Hemoglobin 8.2 G/DL (14.2-18.0) L Hematocrit 25.7 % (42.0-52.0) L Mean Corpuscular Volume 93 FL (80-99) Mean Corpuscular Hemoglobin 30.0 PG (27.0-31.0) Mean Corpuscular Hemoglobin Concent 32.1 G/DL (32.0-36.0) Red Cell Distribution Width 18.0 % (11.6-14.8) H Platelet Count 117 K/UL (150-450) L Mean Platelet Volume 8.5 FL (6.5-10.1) Neutrophils (%) (Auto) 82.7 % (45.0-75.0) H Lymphocytes (%) (Auto) 8.2 % (20.0-45.0) L Monocytes (%) (Auto) 5.9 % (1.0-10.0) Eosinophils (%) (Auto) 2.3 % (0.0-3.0) Basophils (%) (Auto) 1.0 % (0.0-2.0) Sodium Level 143 MMOL/L (136-145) Potassium Level 3.0 MMOL/L (3.5-5.1) L Chloride Level 108 MMOL/L (98-107) H Carbon Dioxide Level 19 MMOL/L (21-32) L Anion Gap 16 mmol/L (5-15) H Blood Urea Nitrogen 36 mg/dL (7-18) H Creatinine 2.0 MG/DL (0.55-1.30) H Estimat Glomerular Filtration Rate 37.4 mL/min (>60) Glucose Level 126 MG/DL (74-106) H Uric Acid 10.2 MG/DL (2.6-7.2) H Calcium Level 7.8 MG/DL (8.5-10.1) L Phosphorus Level 1.9 MG/DL (2.5-4.9) L Magnesium Level 1.9 MG/DL (1.8-2.4) Total Bilirubin 23.1 MG/DL (0.2-1.0) H Direct Bilirubin 17.7 MG/DL (0.0-0.3) H Gamma Glutamyl Transpeptidase 1379 U/L (5-85) H Aspartate Amino Transf (AST/SGOT) 191 U/L (15-37) H Alanine Aminotransferase (ALT/SGPT) 15 U/L (12-78) Alkaline Phosphatase 439 U/L (46-116) H Ammonia 126 umol/L (11-32) H Troponin I 0.024 ng/mL (0.000-0.056) C-Reactive Protein, Quantitative 9.8 mg/dL (0.00-0.90) H Pro-B-Type Natriuretic Peptide 242 pg/mL (0-125) H Total Protein 6.2 G/DL (6.4-8.2) L Albumin 2.0 G/DL (3.4-5.0) L Globulin 4.2 g/dL Albumin/Globulin Ratio 0.5 (1.0-2.7) L Lipase 407 U/L (73-393) H Arterial Blood pH 7.509 (7.350-7.450) Arterial Blood Partial Pressure CO2 22.7 mmHg (35.0-45.0) *L Arterial Blood Partial Pressure O2 92.9 mmHg (75.0-100.0) Arterial Blood HCO3 17.7 mmol/L (22.0-26.0) *L Arterial Blood Oxygen Saturation 96.7 % (95-100) Arterial Blood Base Excess -4.3 (-2-2) L Dave Test Positive Objective HEAD AND NECK: No JVD. Sclera is jaundiced. LUNGS: Decreased breath sounds. CARDIOVASCULAR: Tachycardic. S1 and S2 with no gallop. ABDOMEN: Distended with ascites. EXTREMITIES: 2+ pitting edema. Felice Smith MD Jun 22, 2019 13:19
[2019-06-22] MEDS: Thiamine HCl 100 MG in D5W 55 ML IVPB SCH (14:36)
--- NOTE | 2019-06-22 16:18 | Cardiology Report ---
APPROVED REPORT EKG Measurement Heart [id number] Sinus tachycardia Cannot rule out Anterior infarct, age undetermined T wave abnormality, consider inferior ischemia Abnormal ECG
--- NOTE | 2019-06-22 16:28 | Pulmonolgy Critical Care Note ---
Critical Care - Asmt/Plan Assessment/Plan: Pulmonary CCM Consultation HPI This is a 39-year-old male who is an alcoholic with significant fatty liver on abdominal CT and alcoholic hepatitis, DF 16, not candidate for seroids currently per GI. He has been drinking heavily for 3 months straight. He stopped drinking yesterday. He felt weak and wanted to go to the hospital. No bleeding. No nausea no vomiting. Nothing made it better. Movement or exertion makes it worse. Noted to have significant hypokalemia and alkalosis, evidence of sepsis, source unclear - some bacteria in urine, mid ascites - possible SBP, dilated Gallbladder Stable pulmonary status, sp NGT - tolerated well Allergies: No Known Allergies Past Medical History: Alcohol abuse Review of systems: not available HPI This is a 39-year-old male who is an alcoholic. He has been drinking heavily for 3 months straight. He stopped drinking yesterday. He felt weak and wanted to go to the hospital. No bleeding. No nausea no vomiting. Nothing made it better. Movement or exertion makes it worse. Allergies: Coded Allergies: No Known Allergies (Unverified , 06/20/19) Patient History Past Medical History: see triage record, old chart reviewed Physical Exam Vital Signs Noted General Appearance: Jaundiced, ill appearing, somnolent Head: normocephalic, atraumatic Eyes: bilateral eye PERRL, bilateral eye EOMI, bilateral eye scleral icterus ENT: moist mm, NGT Neck: no masses, no LN Respiratory: chest non-tender, lungs clear, normal breath sounds Cardiovascular: regular rate, rhythm, Normal HS1, HS2, no murmur, tachycardia Gastrointestinal: Obese, hepatomegaly, some tenderness RUQ, abdominal distension, normal bowel sounds, no mass, no rebound Musculoskeletal: moves all limbs Neurologic: responds to commands, drowsy Skin: jaundiced, moderate edema Impression: Acute alcoholic intoxication Severe Sepsis Alcoholic Hepatitis Possible Cirrhosis Metabolic and respiratory alkalosis Possible Portal Hypertension Hepatorenal syndrome Pancreatitis, alcoholic, acute Anemia Plan ICU management NPO except meds IV antibiotics per ID Aspiration precautions IVF PRN Transfuse PRN Thiamine Monitor labs K supplementation Adjust FIO2 - sats 90-96% If have wosening AMS may require intubation for airway protection Labs: noted EKG: Rate: tachycardiac Rhythm: NSR ST Segments: other - NSST changes Chest X-Ray: hypoventilatory exam, no consolidation, no effusion, no pneumothorax, no acute cardiopulmonary disease CT abdomen pelvis: Severely enlarged liver and fatty liver. Mild ascites. Critical Care - Objective Last 24 Hour Vital Signs Date Time Temp Pulse Resp B/P (MAP) Pulse Ox O2 Delivery O2 Flow Rate FiO2 06/22/19 15:19 104 23 98 Nasal Cannula 2.0 28 106 19 95 06/22/19 13:00 98.0 107 27 115/72 (86) 96 06/22/19 12:00 109 06/22/19 12:00 97.1 107 24 115/72 (86) 96 06/22/19 12:00 Venturi Mask 10.0 06/22/19 11:28 109 23 95 Nasal Cannula 2.0 28 108 21 97 06/22/19 11:00 108 24 103/60 (74) 96 06/22/19 10:00 113 26 87/65 (72) 97 06/22/19 09:00 115 31 90/74 (79) 99 06/22/19 08:00 98.6 119 33 111/95 (100) 98 06/22/19 08:00 Venturi Mask 10.0 06/22/19 08:00 120 06/22/19 07:47 120 40 100 Venturi Mask 8.0 40 120 35 98 06/22/19 07:33 98 06/22/19 07:00 129 36 111/58 (75) 96 06/22/19 06:49 102.4 06/22/19 06:00 127 40 98/60 (73) 95 06/22/19 05:23 127 06/22/19 05:00 126 34 76/44 (55) 95 06/22/19 04:00 100.4 126 34 97/49 (65) 95 06/22/19 04:00 Venturi Mask 8.0 06/22/19 03:00 122 35 85/51 (62) 96 06/22/19 02:57 124 40 97 Venturi Mask 6.0 35 124 36 96 06/22/19 02:00 125 30 96/56 (69) 96 06/22/19 01:00 124 30 98/57 (71) 96 06/22/19 00:00 125 06/22/19 00:00 Venturi Mask 8.0 06/22/19 00:00 99.2 126 35 104/68 (80) 96 06/21/19 23:44 123 38 97 Venturi Mask 6.0 35 120 26 96 06/21/19 23:00 121 30 118/79 (92) 97 06/21/19 22:00 123 30 98/60 (73) 95 06/21/19 21:45 96 Venturi Mask 6.0 35 06/21/19 21:45 121 34 98 Venturi Mask 8.0 40 120 34 96 06/21/19 21:00 128 30 113/75 (88) 97 06/21/19 20:00 Venturi Mask 8.0 06/21/19 20:00 122 06/21/19 20:00 98.6 117 36 99/58 (72) 98 06/21/19 19:00 120 37 91/69 (76) 97 06/21/19 18:00 118 37 92/54 (67) 97 06/21/19 17:00 123 38 92/57 (69) 95 Critical Care - Subjective ROS Limited/Unobtainable: No Condition: improving FI02: 35 Sputum Amount: Small I&O: Intake and Output 06/21/19 06/22/19 19:00 07:00 Intake Total 400 ml 1707 ml Output Total 140 ml 940 ml Balance 260 ml 767 ml Free Water 100 ml IV Total 400 ml 1307 ml Blood Product 300 ml Output Urine Total 140 ml 440 ml Stool Total 500 ml # Voids 3 # Bowel Movements 2 Quang Domingo MD Jun 22, 2019 16:28
--- NOTE | 2019-06-22 16:40 | Hematology/Onc Progress Note ---
Assessment/Plan Assessment/Plan Assessment and Recs; # Thrombocytopenia - potential causes multifactorial, does have a history of etoh abuse, cirrhosis of the liver, hepatosplenomegaly, portal HTN, coagulopathy noted as well --> Hep panel and HIV ordered (NEG) --> US abd does show, portal htn and cirrhosis ++ --> Peripheral smear ordered to evaluate for blasts /schistocytes reviewed and is negative --> abx and other meds have been reviewed --> ok for ppx if plt >50k w/ either heparin or lovenox --> Transfuse if Plt < 20k and fever, or if Plt < 10k without fever # Anemia of chronic disease due to underlying chronic medical issues, multifactorial (myelosuprresion noted) --> Anemia workup has been reviewed, ferritin 297 --> No evidence of hemolysis is noted, peripheral smear has been reviewed. --> Hgb goal >7. Transfuse prn. --> Epogen or iron at this time is not particularly indicated --> Medications have been reviewed --> low threshold for gi evaluation in case has occult + --> hgb trend: 7.7-->8.2 --> serum electrophoresis ordered 06/20 # Acute alcoholic intoxication --> etoh abuse history --> thiamine, folic acid, ivf # End-stage liver disease --> Hepatorenal syndrome r/o with renal, albumin prn # Pancreatitis, alcoholic, acute # Tachycardia The timing of this note does not necessarily reflect the time of the patient was seen. GREATLY APPRECIATE CONSULTATION. Subjective Allergies: Coded Allergies: No Known Allergies (Unverified , 06/20/19) Subjective 06/21: low k, ferritin 297, h/h stable, afebrile, blood transfused 06/22: in icu, on restraints, labs reviewed, no f/c, imaging reviewed Objective Objective Current Medications Medications (Trade) Dose Ordered Sig/Gabriela Route PRN Reason Start Time Stop Time Status Last Admin Dose Admin Acetaminophen (Tylenol) 325 mg Q6H PRN NG Mild Pain/Temp > 100.5 06/22/19 10:00 07/22/19 09:59 06/22/19 10:30 Dextrose/Sodium Chloride 1,000 ml @ 50 mls/hr Q20H IV 06/21/19 14:16 07/21/19 14:15 06/22/19 11:00 Folic Acid (Folate) 5 mg DAILY NG 06/23/19 09:00 07/20/19 12:44 Furosemide (Lasix) 40 mg DAILY IV 06/22/19 09:00 07/21/19 08:59 06/22/19 08:33 Ipratropium [place] (Atrovent) 500 mcg Q4H PRN N Shortness of Breath 06/21/19 15:00 06/26/19 14:59 Ipratropium [place] (Atrovent) 500 mcg Q4HRT HHN 06/21/19 16:45 06/26/19 16:44 06/22/19 15:19 Lactulose (Cephulac) 30 gm FOUR TIMES A DAY NG 06/22/19 18:00 07/20/19 12:59 Lorazepam (Ativan 2mg/ml 1ml) 1 mg Q4H PRN IV For Anxiety 06/21/19 14:17 06/28/19 14:16 06/22/19 08:48 Pantoprazole (Protonix) 40 mg EVERY 12 HOURS IVP 06/21/19 21:00 07/20/19 20:59 06/22/19 08:34 Piperacillin Sod/ Tazobactam Sod 3.375 gm/Sodium Chloride 110 ml @ 27.5 mls/hr EVERY 8 HOURS IVPB 06/22/19 09:30 06/27/19 09:29 06/22/19 14:36 Rifaximin (Xifaxan) 550 mg EVERY 12 HOURS NG 06/22/19 21:00 06/29/19 20:59 Thiamine HCl 100 mg/Dextrose 56 ml @ 112 mls/hr Q24H IVPB 06/21/19 15:00 07/20/19 14:59 06/22/19 14:36 Last 24 Hour Vital Signs Date Time Temp Pulse Resp B/P (MAP) Pulse Ox O2 Delivery O2 Flow Rate FiO2 06/22/19 15:19 104 23 98 Nasal Cannula 2.0 28 106 19 95 06/22/19 13:00 98.0 107 27 115/72 (86) 96 06/22/19 12:00 109 06/22/19 12:00 97.1 107 24 115/72 (86) 96 06/22/19 12:00 Venturi Mask 10.0 06/22/19 11:28 109 23 95 Nasal Cannula 2.0 28 108 21 97 06/22/19 11:00 108 24 103/60 (74) 96 06/22/19 10:00 113 26 87/65 (72) 97 06/22/19 09:00 115 31 90/74 (79) 99 06/22/19 08:00 98.6 119 33 111/95 (100) 98 06/22/19 08:00 Venturi Mask 10.0 06/22/19 08:00 120 06/22/19 07:47 120 40 100 Venturi Mask 8.0 40 120 35 98 06/22/19 07:33 98 06/22/19 07:00 129 36 111/58 (75) 96 06/22/19 06:49 102.4 06/22/19 06:00 127 40 98/60 (73) 95 06/22/19 05:23 127 06/22/19 05:00 126 34 76/44 (55) 95 06/22/19 04:00 100.4 126 34 97/49 (65) 95 06/22/19 04:00 Venturi Mask 8.0 06/22/19 03:00 122 35 85/51 (62) 96 06/22/19 02:57 124 40 97 Venturi Mask 6.0 35 124 36 96 06/22/19 02:00 125 30 96/56 (69) 96 06/22/19 01:00 124 30 98/57 (71) 96 06/22/19 00:00 125 06/22/19 00:00 Venturi Mask 8.0 06/22/19 00:00 99.2 126 35 104/68 (80) 96 06/21/19 23:44 123 38 97 Venturi Mask 6.0 35 120 26 96 06/21/19 23:00 121 30 118/79 (92) 97 06/21/19 22:00 123 30 98/60 (73) 95 06/21/19 21:45 96 Venturi Mask 6.0 35 06/21/19 21:45 121 34 98 Venturi Mask 8.0 40 120 34 96 06/21/19 21:00 128 30 113/75 (88) 97 06/21/19 20:00 Venturi Mask 8.0 06/21/19 20:00 122 06/21/19 20:00 98.6 117 36 99/58 (72) 98 06/21/19 19:00 120 37 91/69 (76) 97 06/21/19 18:00 118 37 92/54 (67) 97 06/21/19 17:00 123 38 92/57 (69) 95 06/21/19 16:00 98.5 123 40 99/59 (72) 96 06/21/19 16:00 Venturi Mask 10.0 06/21/19 15:05 130 40 97 Venturi Mask 8.0 40 06/21/19 15:02 131 40 97 Venturi Mask 8.0 40 130 40 97 06/21/19 14:58 131 38 128/87 (101) 97 06/21/19 14:00 128 41 104/61 (75) 98 06/21/19 14:00 127 06/21/19 13:45 101.1 127 36 104/61 (75) 93 06/21/19 12:00 101.5 134 52 113/71 (85) 96 06/21/19 11:34 133 06/21/19 08:00 130 06/21/19 08:00 98.6 131 24 108/64 (79) 93 06/21/19 08:00 Venturi Mask 4.0 06/21/19 04:00 136 06/21/19 04:00 98.6 136 19 110/73 (85) 96 06/21/19 00:00 134 06/21/19 00:00 99.5 131 18 94/57 (69) 95 06/20/19 21:00 Nasal Cannula 2.0 06/20/19 20:00 130 06/20/19 20:00 97.9 137 19 104/83 (90) 95 Intake and Output 06/21/19 06/22/19 19:00 07:00 Intake Total 400 ml 1707 ml Output Total 140 ml 940 ml Balance 260 ml 767 ml Free Water 100 ml IV Total 400 ml 1307 ml Blood Product 300 ml Output Urine Total 140 ml 440 ml Stool Total 500 ml # Voids 3 # Bowel Movements 2 Labs Test 06/20/19 03:05 06/20/19 04:09 06/20/19 08:50 06/21/19 05:50 White Blood Count 15.8 K/UL (4.8-10.8) 14.4 K/UL (4.8-10.8) 13.9 K/UL (4.8-10.8) Red Blood Count 2.92 M/UL (4.70-6.10) 2.68 M/UL (4.70-6.10) 2.58 M/UL (4.70-6.10) Hemoglobin 8.7 G/DL (14.2-18.0) 8.0 G/DL (14.2-18.0) 7.7 G/DL (14.2-18.0) Hematocrit 26.9 % (42.0-52.0) 24.7 % (42.0-52.0) 23.9 % (42.0-52.0) Mean Corpuscular Volume 92 FL (80-99) 92 FL (80-99) 93 FL (80-99) Mean Corpuscular Hemoglobin 29.6 PG (27.0-31.0) 29.8 PG (27.0-31.0) 29.8 PG (27.0-31.0) Mean Corpuscular Hemoglobin Concent 32.2 G/DL (32.0-36.0) 32.4 G/DL (32.0-36.0) 32.2 G/DL (32.0-36.0) Red Cell Distribution Width 17.2 % (11.6-14.8) 17.5 % (11.6-14.8) 17.9 % (11.6-14.8) Platelet Count 98 K/UL (150-450) 88 K/UL (150-450) 97 K/UL (150-450) Mean Platelet Volume 7.0 FL (6.5-10.1) 7.3 FL (6.5-10.1) 8.1 FL (6.5-10.1) Neutrophils (%) (Auto) % (45.0-75.0) % (45.0-75.0) % (45.0-75.0) Lymphocytes (%) (Auto) % (20.0-45.0) % (20.0-45.0) % (20.0-45.0) Monocytes (%) (Auto) % (1.0-10.0) % (1.0-10.0) % (1.0-10.0) Eosinophils (%) (Auto) % (0.0-3.0) % (0.0-3.0) % (0.0-3.0) Basophils (%) (Auto) % (0.0-2.0) % (0.0-2.0) % (0.0-2.0) Prothrombin Time 14.8 SEC (9.30-11.50) Prothromb Time International Ratio 1.4 (0.9-1.1) Activated Partial Thromboplast Time 34 SEC (23-33) Sodium Level 136 MMOL/L (136-145) 132 MMOL/L (136-145) 139 MMOL/L (136-145) Potassium Level 3.4 MMOL/L (3.5-5.1) 3.1 MMOL/L (3.5-5.1) 2.6 MMOL/L (3.5-5.1) Chloride Level 98 MMOL/L (98-107) 98 MMOL/L (98-107) 103 MMOL/L (98-107) Carbon Dioxide Level 18 MMOL/L (21-32) 20 MMOL/L (21-32) 20 MMOL/L (21-32) Anion Gap 20 mmol/L (5-15) 14 mmol/L (5-15) 16 mmol/L (5-15) Blood Urea Nitrogen 29 mg/dL (7-18) 31 mg/dL (7-18) 33 mg/dL (7-18) Creatinine 2.0 MG/DL (0.55-1.30) 1.9 MG/DL (0.55-1.30) 2.2 MG/DL (0.55-1.30) Estimat Glomerular Filtration Rate 37.4 mL/min (>60) 39.7 mL/min (>60) 33.5 mL/min (>60) Glucose Level 138 MG/DL (74-106) 121 MG/DL (74-106) 131 MG/DL (74-106) Calcium Level 7.7 MG/DL (8.5-10.1) 7.5 MG/DL (8.5-10.1) 7.9 MG/DL (8.5-10.1) Total Bilirubin 17.2 MG/DL (0.2-1.0) 17.0 MG/DL (0.2-1.0) 20.6 MG/DL (0.2-1.0) Direct Bilirubin 13.7 MG/DL (0.0-0.3) 13.6 MG/DL (0.0-0.3) 17.2 MG/DL (0.0-0.3) Aspartate Amino Transf (AST/SGOT) 285 U/L (15-37) 268 U/L (15-37) 253 U/L (15-37) Alanine Aminotransferase (ALT/SGPT) 20 U/L (12-78) 18 U/L (12-78) 18 U/L (12-78) Alkaline Phosphatase 545 U/L (46-116) 503 U/L (46-116) 493 U/L (46-116) Total Protein 6.5 G/DL (6.4-8.2) 6.2 G/DL (6.4-8.2) 6.3 G/DL (6.4-8.2) Albumin 2.2 G/DL (3.4-5.0) 2.1 G/DL (3.4-5.0) 2.1 G/DL (3.4-5.0) Globulin 4.3 g/dL 4.1 g/dL 4.2 g/dL Albumin/Globulin Ratio 0.5 (1.0-2.7) 0.8 (0.7-1.7) 0.5 (1.0-2.7) Lipase 1881 U/L (73-393) 1448 U/L (73-393) 483 U/L (73-393) Serum Alcohol 271 mg/dL Urine Color [place] Urine Appearance Slightly cloudy Urine pH 6.5 (4.5-8.0) Urine Specific [place] 1.015 (1.005-1.035) Urine Protein 3+ (NEGATIVE) Urine Glucose (UA) 1+ (NEGATIVE) Urine Ketones 2+ (NEGATIVE) Urine Blood 2+ (NEGATIVE) Urine Nitrite Positive (NEGATIVE) Urine Bilirubin 3+ (NEGATIVE) Urine Ictotest Positive (NEGATIVE) Urine Urobilinogen 12 MG/DL (0.0-1.0) Urine Leukocyte Esterase 1+ (NEGATIVE) Urine RBC 2-4 /HPF (0 - 0) Urine WBC 2-4 /HPF (0 - 0) Urine Squamous Epithelial Cells Few /LPF (NONE/OCC) Urine Bacteria Few /HPF (NONE) Differential Total Cells Counted 100 100 Neutrophils % (Manual) 83 % (45-75) 74 % (45-75) Lymphocytes % (Manual) 11 % (20-45) 11 % (20-45) Monocytes % (Manual) 4 % (1-10) 2 % (1-10) Eosinophils % (Manual) 1 % (0-3) 0 % (0-3) Basophils % (Manual) 1 % (0-2) 0 % (0-2) Band Neutrophils 0 % (0-8) 13 % (0-8) Platelet Estimate Decreased Decreased Platelet Morphology Normal Normal Anisocytosis 1+ 3+ Macrocytosis 1+ Target Cells 2+ 3+ Hemoglobin A1c 5.5 % (4.3-6.0) Uric Acid 8.8 MG/DL (2.6-7.2) 10.2 MG/DL (2.6-7.2) Phosphorus Level 2.0 MG/DL (2.5-4.9) 1.4 MG/DL (2.5-4.9) Magnesium Level 1.7 MG/DL (1.8-2.4) 2.2 MG/DL (1.8-2.4) Iron Level 140 ug/dL (50-175) Total Iron Binding Capacity 143 ug/dL (250-450) Percent Iron Saturation 98 % (15-50) Unsaturated Iron Binding 3 ug/dL (112-346) Ferritin 297 NG/ML (8-388) Gamma Glutamyl Transpeptidase 1690 U/L (5-85) Total Creatine Kinase 74 U/L (26-308) C-Reactive Protein, Quantitative 6.4 mg/dL (0.00-0.90) 11.0 mg/dL (0.00-0.90) Pro-B-Type Natriuretic Peptide 65 pg/mL (0-125) 372 pg/mL (0-125) Total Protein (PEP) 5.7 g/dL (6.0-8.5) Albumin (PEP) 2.5 g/dL (2.9-4.4) Globulin (PEP) 3.2 g/dL (2.2-3.9) Pjoha-1-Kdolphgfu 0.3 g/dL (0.0-0.4) Txucg-5-Rdlkqmhee 0.5 g/dL (0.4-1.0) Beta Globulins 1.0 g/dL (0.7-1.3) Beta Gamma Globulin 1.4 g/dL (0.4-1.8) PEP Abnormal Protein Bands Not observed g/dL (Not Protein Electrophoresis Interpret Comment (.) Triglycerides Level 442 MG/DL (30-150) Cholesterol Level 211 MG/DL (< 200) LDL Cholesterol 169 mg/dL (<100) HDL Cholesterol 8 MG/DL (40-60) Cholesterol/HDL Ratio 26.4 (3.3-4.4) Alpha Fetoprotein 3.4 ng/mL (0.0-8.3) Carcinoembryonic Antigen 6.9 ng/mL (0.0-4.7) Vitamin B12 Level 1121 PG/ML (193-986) Folate 1.6 NG/ML (8.6-58.9) Thyroid Stimulating Hormone (TSH) 1.628 uiU/mL (0.358-3.740) Hepatitis A IgM Antibody Negative (Negative) Hepatitis B Surface Antigen Negative (Negative) Hepatitis B Core IgM Antibody Negative (Negative) Hepatitis C Antibody <0.1 s/co ratio HIV (1&2) Antibody Rapid Negative (NEGATIVE) Nucleated Red Blood Cells 1 /100 WBC Hypochromasia 3+ Ammonia 115 umol/L (11-32) Amylase Level 83 U/L (25-115) Test 06/21/19 10:11 06/22/19 04:00 06/22/19 06:58 Arterial Blood pH 7.529 (7.350-7.450) 7.509 (7.350-7.450) Arterial Blood Partial Pressure CO2 24.4 mmHg (35.0-45.0) 22.7 mmHg (35.0-45.0) Arterial Blood Partial Pressure O2 73.8 mmHg (75.0-100.0) 92.9 mmHg (75.0-100.0) Arterial Blood HCO3 19.9 mmol/L (22.0-26.0) 17.7 mmol/L (22.0-26.0) Arterial Blood Oxygen Saturation 94.9 % (95-100) 96.7 % (95-100) Arterial Blood Base Excess -2.2 (-2-2) -4.3 (-2-2) Dave Test Positive Positive White Blood Count 14.3 K/UL (4.8-10.8) Red Blood Count 2.75 M/UL (4.70-6.10) Hemoglobin 8.2 G/DL (14.2-18.0) Hematocrit 25.7 % (42.0-52.0) Mean Corpuscular Volume 93 FL (80-99) Mean Corpuscular Hemoglobin 30.0 PG (27.0-31.0) Mean Corpuscular Hemoglobin Concent 32.1 G/DL (32.0-36.0) Red Cell Distribution Width 18.0 % (11.6-14.8) Platelet Count 117 K/UL (150-450) Mean Platelet Volume 8.5 FL (6.5-10.1) Neutrophils (%) (Auto) 82.7 % (45.0-75.0) Lymphocytes (%) (Auto) 8.2 % (20.0-45.0) Monocytes (%) (Auto) 5.9 % (1.0-10.0) Eosinophils (%) (Auto) 2.3 % (0.0-3.0) Basophils (%) (Auto) 1.0 % (0.0-2.0) Sodium Level 143 MMOL/L (136-145) Potassium Level 3.0 MMOL/L (3.5-5.1) Chloride Level 108 MMOL/L (98-107) Carbon Dioxide Level 19 MMOL/L (21-32) Anion Gap 16 mmol/L (5-15) Blood Urea Nitrogen 36 mg/dL (7-18) Creatinine 2.0 MG/DL (0.55-1.30) Estimat Glomerular Filtration Rate 37.4 mL/min (>60) Glucose Level 126 MG/DL (74-106) Uric Acid 10.2 MG/DL (2.6-7.2) Calcium Level 7.8 MG/DL (8.5-10.1) Phosphorus Level 1.9 MG/DL (2.5-4.9) Magnesium Level 1.9 MG/DL (1.8-2.4) Total Bilirubin 23.1 MG/DL (0.2-1.0) Direct Bilirubin 17.7 MG/DL (0.0-0.3) Gamma Glutamyl Transpeptidase 1379 U/L (5-85) Aspartate Amino Transf (AST/SGOT) 191 U/L (15-37) Alanine Aminotransferase (ALT/SGPT) 15 U/L (12-78) Alkaline Phosphatase 439 U/L (46-116) Ammonia 126 umol/L (11-32) Troponin I 0.024 ng/mL (0.000-0.056) C-Reactive Protein, Quantitative 9.8 mg/dL (0.00-0.90) Pro-B-Type Natriuretic Peptide 242 pg/mL (0-125) Total Protein 6.2 G/DL (6.4-8.2) Albumin 2.0 G/DL (3.4-5.0) Globulin 4.2 g/dL Albumin/Globulin Ratio 0.5 (1.0-2.7) Lipase 407 U/L (73-393) Height (Feet): 5 Height (Inches): 9.00 Weight (Pounds): 219 Objective Physical Exam: Vitals: reviewed General Appearance: NAD HEENT: normocephalic, atraumatic ++ icterus jaundice Neck: non-tender, normal alignment Respiratory/Chest: normal breath sounds bilaterally Cardiovascular/Chest: normal peripheral pulses, normal rate Abdomen: normal bowel sounds, soft, diffuse ttp Extremities: normal range of motion Marty Kebede MD Jun 22, 2019 16:40
[2019-06-22] MEDS: Lactulose 20gm/30ml UDC NG SCH ×2 (17:35→20:45)
--- NOTE | 2019-06-22 21:10 | General Progress Note ---
Assessment/Plan Problem List: (1) Anemia ICD Codes: D64.9 - Anemia, unspecified SNOMED: 561921934 Qualifiers: Qualified Codes: D64.9 - Anemia, unspecified (2) Acute alcoholic intoxication ICD Codes: F10.929 - Alcohol use, unspecified with intoxication, unspecified SNOMED: 91157178, 4806395 Qualifiers: Qualified Codes: F10.920 - Alcohol use, unspecified with intoxication, uncomplicated (3) End-stage liver disease ICD Codes: K72.90 - Hepatic failure, unspecified without coma SNOMED: 707877320 (4) Hepatorenal syndrome ICD Codes: K76.7 - Hepatorenal syndrome SNOMED: 80582179, 4452933 (5) Pancreatitis, alcoholic, acute ICD Codes: K85.20 - Alcohol induced acute pancreatitis without necrosis or infection SNOMED: 670481764, 8956457 Qualifiers: Qualified Codes: K85.20 - Alcohol induced acute pancreatitis without necrosis or infection (6) Respiratory failure ICD Codes: J96.90 - Respiratory failure, unspecified, unspecified whether with hypoxia or hypercapnia SNOMED: 750568556 Status: progressing, not improved, unchanged, deteriorating Assessment/Plan: respiratory failure etoh cirrhosis jaundice hepatic encephalopathy azotemia lyte abnormality look out for gi bleeding Subjective ROS Limited/Unobtainable: Yes Allergies: Coded Allergies: No Known Allergies (Unverified , 06/20/19) Objective Last 24 Hour Vital Signs Date Time Temp Pulse Resp B/P (MAP) Pulse Ox O2 Delivery O2 Flow Rate FiO2 06/22/19 19:41 98 Nasal Cannula 2.0 28 06/22/19 19:27 104 23 98 Nasal Cannula 2.0 103 19 96 06/22/19 19:00 106 26 98/54 (69) 96 06/22/19 18:00 112 31 98/54 (69) 96 06/22/19 17:00 106 29 98/54 (69) 96 06/22/19 16:00 104 06/22/19 16:00 Venturi Mask 10.0 06/22/19 16:00 98.8 106 29 99/55 (70) 95 06/22/19 15:19 104 23 98 Nasal Cannula 2.0 106 19 95 06/22/19 15:00 107 22 97/63 (74) 94 06/22/19 14:00 108 29 103/60 (74) 96 06/22/19 13:00 98.0 107 27 115/72 (86) 96 06/22/19 12:00 109 06/22/19 12:00 97.1 107 24 115/72 (86) 96 06/22/19 12:00 Venturi Mask 10.0 06/22/19 11:28 109 23 95 Nasal Cannula 2.0 28 108 21 97 06/22/19 11:00 108 24 103/60 (74) 96 06/22/19 10:00 113 26 87/65 (72) 97 06/22/19 09:00 115 31 90/74 (79) 99 06/22/19 08:00 98.6 119 33 111/95 (100) 98 06/22/19 08:00 Venturi Mask 10.0 06/22/19 08:00 120 06/22/19 07:47 120 40 100 Venturi Mask 8.0 40 120 35 98 06/22/19 07:33 98 06/22/19 07:00 129 36 111/58 (75) 96 06/22/19 06:49 102.4 06/22/19 06:00 127 40 98/60 (73) 95 06/22/19 05:23 127 06/22/19 05:00 126 34 76/44 (55) 95 06/22/19 04:00 100.4 126 34 97/49 (65) 95 06/22/19 04:00 Venturi Mask 8.0 06/22/19 03:00 122 35 85/51 (62) 96 06/22/19 02:57 124 40 97 Venturi Mask 6.0 35 124 36 96 06/22/19 02:00 125 30 96/56 (69) 96 06/22/19 01:00 124 30 98/57 (71) 96 06/22/19 00:00 125 06/22/19 00:00 Venturi Mask 8.0 06/22/19 00:00 99.2 126 35 104/68 (80) 96 06/21/19 23:44 123 38 97 Venturi Mask 6.0 35 120 26 96 06/21/19 23:00 121 30 118/79 (92) 97 06/21/19 22:00 123 30 98/60 (73) 95 06/21/19 21:45 96 Venturi Mask 6.0 35 06/21/19 21:45 121 34 98 Venturi Mask 8.0 40 120 34 96 Intake and Output 06/21/19 06/22/19 19:00 07:00 Intake Total 400 ml 1707 ml Output Total 140 ml 940 ml Balance 260 ml 767 ml Free Water 100 ml IV Total 400 ml 1307 ml Blood Product 300 ml Output Urine Total 140 ml 440 ml Stool Total 500 ml # Voids 3 # Bowel Movements 2 Laboratory Tests 06/22/19 04:00: White Blood Count 14.3H, Red Blood Count 2.75L, Hemoglobin 8.2L, Hematocrit 25.7L, Mean Corpuscular Volume 93, Mean Corpuscular Hemoglobin 30.0, Mean Corpuscular Hemoglobin Concent 32.1, Red Cell Distribution Width 18.0H, Platelet Count 117L, Mean Platelet Volume 8.5, Neutrophils (%) (Auto) 82.7H, Lymphocytes (%) (Auto) 8.2L, Monocytes (%) (Auto) 5.9, Eosinophils (%) (Auto) 2.3, Basophils (%) (Auto) 1.0, Sodium Level 143, Potassium Level 3.0L, Chloride Level 108H, Carbon Dioxide Level 19L, Anion Gap 16H, Blood Urea Nitrogen 36H, Creatinine 2.0H, Estimat Glomerular Filtration Rate 37.4, Glucose Level 126H, Uric Acid 10.2H, Calcium Level 7.8L, Phosphorus Level 1.9L, Magnesium Level 1.9 , Total Bilirubin 23.1H, Direct Bilirubin 17.7H, Gamma Glutamyl Transpeptidase 1379H, Aspartate Amino Transf (AST/SGOT) 191H, Alanine Aminotransferase (ALT/ SGPT) 15, Alkaline Phosphatase 439H, Ammonia 126H, Troponin I 0.024, C-Reactive Protein, Quantitative 9.8H, Pro-B-Type Natriuretic Peptide 242H, Total Protein 6.2L, Albumin 2.0L, Globulin 4.2, Albumin/Globulin Ratio 0.5L, Lipase 407H 06/22/19 06:58: Arterial Blood pH 7.509H, Arterial Blood Partial Pressure CO2 22.7*L, Arterial Blood Partial Pressure O2 92.9, Arterial Blood HCO3 17.7*L, Arterial Blood Oxygen Saturation 96.7, Arterial Blood Base Excess -4.3L, Dave Test Positive Height (Feet): 5 Height (Inches): 9.00 Weight (Pounds): 219 Cardiovascular: normal rate Abdomen: tender Deejay Saldaña MD Jun 22, 2019 21:10
[2019-06-22] MEDS ORDERED: NS 275ml ONE (21:33)
[2019-06-23] VITALS (24 sets, daily range): BP systolic 92–113; BP diastolic 54–72
[2019-06-23] MEDS: Ipratropium 0.02% Inh Soln 2.5ml UD HHN SCH ×6 (03:17→22:40)
[2019-06-23 05:22] LABS: EOSINOPHILS % (AUTO) 3.2 % (0.0-3.0); HEMATOCRIT 25.2 % (42.0-52.0); HEMOGLOBIN 8.2 G/DL (14.2-18.0); LYMPHOCYTES % (AUTO) 9.3 % (20.0-45.0); MEAN CORPUSCULAR VOLUME 93 FL (80-99); MONOCYTES % (AUTO) 6.3 % (1.0-10.0); NEUTROPHILS % (AUTO) 80.3 % (45.0-75.0); PLATELET COUNT 153 K/UL (150-450); RED CELL DISTRIBUTION WIDTH 18.6 % (11.6-14.8)
[2019-06-23 05:32] LABS: INR 2.2 (0.9-1.1)
[2019-06-23 05:33] LABS: AMMONIA 109 umol/L (11-32)
[2019-06-23 05:41] LABS: CREATINE KINASE 117 U/L (26-308); GAMMA GLUTAMYL TRANSPEPTIDASE 1200 U/L (5-85)
[2019-06-23 05:56] LABS: ALANINE AMINOTRANSFERASE 12 U/L (12-78); ALBUMIN 1.8 G/DL (3.4-5.0); ALBUMIN/GLOBULIN RATIO 0.4 (1.0-2.7); ALKALINE PHOSPHATASE 400 U/L (46-116); ANION GAP 12 mmol/L (5-15); ASPARTATE AMINO TRANSFERASE 151 U/L (15-37); BLOOD UREA NITROGEN 33 mg/dL (7-18); CALCIUM 8.3 MG/DL (8.5-10.1); CARBON DIOXIDE 23 MMOL/L (21-32); CHLORIDE 115 MMOL/L (98-107); CREATININE 1.9 MG/DL (0.55-1.30); SODIUM 150 MMOL/L (136-145)
[2019-06-23] MEDS: Piperacillin/Tazobactam 3.375 GM in NS 110 ML IVPB SCH ×3 (06:00→22:11)
[2019-06-23] MEDS: D5NS 1,000 ML IV SCH (06:00)
[2019-06-23 06:21] LABS: POTASSIUM 2.5 MMOL/L (3.5-5.1)
[2019-06-23 06:22] LABS: BILIRUBIN,DIRECT 21.6 MG/DL (0.0-0.3)
--- NOTE | 2019-06-23 07:41 | General Progress Note ---
Assessment/Plan Problem List: (1) Pancreatitis, alcoholic, acute ICD Codes: K85.20 - Alcohol induced acute pancreatitis without necrosis or infection SNOMED: 133478457, 6035032 Qualifiers: Qualified Codes: K85.20 - Alcohol induced acute pancreatitis without necrosis or infection (2) Acute alcoholic intoxication ICD Codes: F10.929 - Alcohol use, unspecified with intoxication, unspecified SNOMED: 30060162, 2504824 Qualifiers: Qualified Codes: F10.920 - Alcohol use, unspecified with intoxication, uncomplicated (3) Anemia ICD Codes: D64.9 - Anemia, unspecified SNOMED: 422274322 Qualifiers: Qualified Codes: D64.9 - Anemia, unspecified Status: progressing, not improved, unchanged, deteriorating Assessment/Plan: discriminant factor of 16 iv thiamine start NGTF ivf>> will HL if tolerated NGTF repeat labs fu nephrology cont lactulose>> will cut by half given severe diarrhea and hypo K xifaxan s/p blood transfusion paracentesis Subjective ROS Limited/Unobtainable: No Allergies: Coded Allergies: No Known Allergies (Unverified , 06/20/19) Objective Last 24 Hour Vital Signs Date Time Temp Pulse Resp B/P (MAP) Pulse Ox O2 Delivery O2 Flow Rate FiO2 06/23/19 07:08 94 Nasal Cannula 2.0 28 06/23/19 07:08 103 22 99 Nasal Cannula 2.0 28 114 22 94 06/23/19 06:00 114 39 107/63 (78) 95 06/23/19 05:00 115 27 103/62 (76) 95 06/23/19 04:00 99.8 114 26 101/63 (76) 97 06/23/19 04:00 Venturi Mask 10.0 06/23/19 04:00 114 06/23/19 03:17 106 23 99 Nasal Cannula 2.0 28 109 21 96 06/23/19 03:00 117 34 110/67 (81) 95 06/23/19 02:00 116 33 111/68 (82) 95 06/23/19 01:00 111 34 105/62 (76) 97 06/23/19 00:00 99.1 109 31 100/54 (69) 95 06/23/19 00:00 Venturi Mask 10.0 06/23/19 00:00 109 06/22/19 23:22 106 23 99 Nasal Cannula 2.0 28 107 21 96 06/22/19 23:00 112 33 95/55 (68) 96 06/22/19 22:00 107 30 97/59 (72) 96 06/22/19 21:00 105 27 99/63 (75) 97 06/22/19 20:00 98.3 108 20 104/59 (74) 97 06/22/19 20:00 Venturi Mask 10.0 06/22/19 20:00 108 06/22/19 19:41 98 Nasal Cannula 2.0 28 06/22/19 19:27 104 23 98 Nasal Cannula 2.0 28 103 19 96 06/22/19 19:00 106 26 98/54 (69) 96 06/22/19 18:00 112 31 98/54 (69) 96 06/22/19 17:00 106 29 98/54 (69) 96 06/22/19 16:00 104 06/22/19 16:00 Venturi Mask 10.0 06/22/19 16:00 98.8 106 29 99/55 (70) 95 06/22/19 15:19 104 23 98 Nasal Cannula 2.0 28 106 19 95 06/22/19 15:00 107 22 97/63 (74) 94 06/22/19 14:00 108 29 103/60 (74) 96 06/22/19 13:00 98.0 107 27 115/72 (86) 96 06/22/19 12:00 109 06/22/19 12:00 97.1 107 24 115/72 (86) 96 06/22/19 12:00 Venturi Mask 10.0 06/22/19 11:28 109 23 95 Nasal Cannula 2.0 28 108 21 97 06/22/19 11:00 108 24 103/60 (74) 96 06/22/19 10:00 113 26 87/65 (72) 97 06/22/19 09:00 115 31 90/74 (79) 99 06/22/19 08:00 98.6 119 33 111/95 (100) 98 06/22/19 08:00 Venturi Mask 10.0 06/22/19 08:00 120 06/22/19 07:47 120 40 100 Venturi Mask 8.0 40 120 35 98 Intake and Output 06/22/19 06/23/19 19:00 07:00 Intake Total 1214.5 ml 660.0 ml Output Total 835 ml 700 ml Balance 379.5 ml -40.0 ml IV Total 1154.5 ml 660.0 ml Other 60 ml Output Urine Total 335 ml 300 ml Stool Total 500 ml 400 ml # Bowel Movements 3 3 Laboratory Tests 06/23/19 04:30: White Blood Count 16.0H, Red Blood Count 2.70L, Hemoglobin 8.2L, Hematocrit 25.2L, Mean Corpuscular Volume 93, Mean Corpuscular Hemoglobin 30.2, Mean Corpuscular Hemoglobin Concent 32.4, Red Cell Distribution Width 18.6H, Platelet Count 153, Mean Platelet Volume 6.9, Neutrophils (%) (Auto) 80.3H, Lymphocytes (%) (Auto) 9.3L, Monocytes (%) (Auto) 6.3, Eosinophils (%) (Auto) 3.2H, Basophils (%) (Auto) 1.0, Prothrombin Time 22.1H, Prothromb Time International Ratio 2.2H, Sodium Level 150H, Potassium Level 2.5*L, Chloride Level 115H, Carbon Dioxide Level 23, Anion Gap 12, Blood Urea Nitrogen 33H, Creatinine 1.9H, Estimat Glomerular Filtration Rate 39.7, Glucose Level 117H, Uric Acid 7.7H, Calcium Level 8.3L, Total Bilirubin 26.0H, Direct Bilirubin 21.6H, Gamma Glutamyl Transpeptidase 1200H, Aspartate Amino Transf (AST/SGOT) 151H, Alanine Aminotransferase (ALT/SGPT) 12, Alkaline Phosphatase 400H, Ammonia 109H, Total Creatine Kinase 117, C-Reactive Protein, Quantitative 7.8H, Pro-B-Type Natriuretic Peptide 126H, Total Protein 6.0L, Albumin 1.8L, Globulin 4.2, Albumin/Globulin Ratio 0.4L Height (Feet): 5 Height (Inches): 9.00 Weight (Pounds): 220 General Appearance: lethargic EENT: scleral icterus Neck: supple Cardiovascular: normal rate Respiratory/Chest: decreased breath sounds Abdomen: hypoactive bowel sounds, distended Extremities: non-tender Merlin Esposito MD Jun 23, 2019 07:41
[2019-06-23 08:46] LABS: PHOSPHORUS 1.4 MG/DL (2.5-4.9)
[2019-06-23] MEDS: Acetaminophen 650mg/20.3ml NG PRN (08:47)
[2019-06-23] MEDS: Pantoprazole Inj IVP SCH ×2 (08:47→20:30)
[2019-06-23] MEDS ORDERED: Lactulose 20gm/30ml UDC NG SCH (09:00)
--- NOTE | 2019-06-23 09:27 | Nephrology Progress Note ---
Assessment/Plan Problem List: (1) End-stage liver disease (2) Hepatorenal syndrome (3) Pancreatitis, alcoholic, acute (4) Acute alcoholic intoxication (5) Anemia (6) Respiratory failure Assessment Acute alcoholic intoxication End-stage liver disease Hepatorenal syndrome Pancreatitis, alcoholic, acute Anemia Plan k and Mag and phos supplement as needed has keith has RT (rectal tube) slow IV Fluids Correct lytes IV protonix lactulose Folate and Thiamin per GI transfuse per consultants Subjective ROS Limited/Unobtainable: Yes Objective Objective Last 24 Hour Vital Signs Date Time Temp Pulse Resp B/P (MAP) Pulse Ox O2 Delivery O2 Flow Rate FiO2 06/23/19 07:08 94 Nasal Cannula 2.0 28 06/23/19 07:08 103 22 99 Nasal Cannula 2.0 28 114 22 94 06/23/19 07:00 119 35 109/64 (79) 95 06/23/19 06:00 114 39 107/63 (78) 95 06/23/19 05:00 115 27 103/62 (76) 95 06/23/19 04:00 99.8 114 26 101/63 (76) 97 06/23/19 04:00 Venturi Mask 10.0 06/23/19 04:00 114 06/23/19 03:17 106 23 99 Nasal Cannula 2.0 28 109 21 96 06/23/19 03:00 117 34 110/67 (81) 95 06/23/19 02:00 116 33 111/68 (82) 95 06/23/19 01:00 111 34 105/62 (76) 97 06/23/19 00:00 99.1 109 31 100/54 (69) 95 06/23/19 00:00 Venturi Mask 10.0 06/23/19 00:00 109 06/22/19 23:22 106 23 99 Nasal Cannula 2.0 28 107 21 96 06/22/19 23:00 112 33 95/55 (68) 96 06/22/19 22:00 107 30 97/59 (72) 96 06/22/19 21:00 105 27 99/63 (75) 97 06/22/19 20:00 98.3 108 20 104/59 (74) 97 06/22/19 20:00 Venturi Mask 10.0 06/22/19 20:00 108 06/22/19 19:41 98 Nasal Cannula 2.0 28 06/22/19 19:27 104 23 98 Nasal Cannula 2.0 28 103 19 96 06/22/19 19:00 106 26 98/54 (69) 96 06/22/19 18:00 112 31 98/54 (69) 96 06/22/19 17:00 106 29 98/54 (69) 96 06/22/19 16:00 104 06/22/19 16:00 Venturi Mask 10.0 06/22/19 16:00 98.8 106 29 99/55 (70) 95 06/22/19 15:19 104 23 98 Nasal Cannula 2.0 28 106 19 95 06/22/19 15:00 107 22 97/63 (74) 94 06/22/19 14:00 108 29 103/60 (74) 96 06/22/19 13:00 98.0 107 27 115/72 (86) 96 06/22/19 12:00 109 06/22/19 12:00 97.1 107 24 115/72 (86) 96 06/22/19 12:00 Venturi Mask 10.0 06/22/19 11:28 109 23 95 Nasal Cannula 2.0 28 108 21 97 06/22/19 11:00 108 24 103/60 (74) 96 06/22/19 10:00 113 26 87/65 (72) 97 Intake and Output 06/22/19 06/23/19 19:00 07:00 Intake Total 1214.5 ml 660.0 ml Output Total 835 ml 720 ml Balance 379.5 ml -60.0 ml IV Total 1154.5 ml 660.0 ml Other 60 ml Output Urine Total 335 ml 320 ml Stool Total 500 ml 400 ml # Bowel Movements 3 3 Laboratory Tests 06/23/19 04:30: White Blood Count 16.0H, Red Blood Count 2.70L, Hemoglobin 8.2L, Hematocrit 25.2L, Mean Corpuscular Volume 93, Mean Corpuscular Hemoglobin 30.2, Mean Corpuscular Hemoglobin Concent 32.4, Red Cell Distribution Width 18.6H, Platelet Count 153, Mean Platelet Volume 6.9, Neutrophils (%) (Auto) 80.3H, Lymphocytes (%) (Auto) 9.3L, Monocytes (%) (Auto) 6.3, Eosinophils (%) (Auto) 3.2H, Basophils (%) (Auto) 1.0, Prothrombin Time 22.1H, Prothromb Time International Ratio 2.2H, Sodium Level 150H, Potassium Level 2.5*L, Chloride Level 115H, Carbon Dioxide Level 23, Anion Gap 12, Blood Urea Nitrogen 33H, Creatinine 1.9H, Estimat Glomerular Filtration Rate 39.7, Glucose Level 117H, Uric Acid 7.7H, Calcium Level 8.3L, Phosphorus Level 1.4L, Magnesium Level 1.8, Total Bilirubin 26.0H, Direct Bilirubin 21.6H, Gamma Glutamyl Transpeptidase 1200H, Aspartate Amino Transf (AST/SGOT) 151H, Alanine Aminotransferase (ALT/ SGPT) 12, Alkaline Phosphatase 400H, Ammonia 109H, Total Creatine Kinase 117, C- Reactive Protein, Quantitative 7.8H, Pro-B-Type Natriuretic Peptide 126H, Total Protein 6.0L, Albumin 1.8L, Globulin 4.2, Albumin/Globulin Ratio 0.4L, Lipase 319 Height (Feet): 5 Height (Inches): 9.00 Weight (Pounds): 220 General Appearance: mild distress, other - jaundiced Cardiovascular: tachycardia Respiratory/Chest: decreased breath sounds Abdomen: distended Neurologic: other - confused Arthur Lay MD Jun 23, 2019 09:27
[2019-06-23] MEDS ORDERED: Potassium Phosphate 30 MM in Sodium Chloride 550 ML IV SCH (11:00)
--- NOTE | 2019-06-23 12:33 | Hematology/Onc Progress Note ---
Assessment/Plan Assessment/Plan Assessment and Recs; # Thrombocytopenia - potential causes multifactorial, does have a history of etoh abuse, cirrhosis of the liver, hepatosplenomegaly, portal HTN, coagulopathy noted as well --> Hep panel and HIV ordered (NEG) --> US abd does show, portal htn and cirrhosis ++ --> Peripheral smear ordered to evaluate for blasts /schistocytes reviewed and is negative --> abx and other meds have been reviewed --> ok for ppx if plt >50k w/ either heparin or lovenox --> Transfuse if Plt < 20k and fever, or if Plt < 10k without fever --> plt trend 80-->97-->117-->157k # Anemia of chronic disease due to underlying chronic medical issues, multifactorial (myelosuprresion noted) --> Anemia workup has been reviewed, ferritin 297 --> No evidence of hemolysis is noted, peripheral smear has been reviewed. --> Hgb goal >7. Transfuse prn. --> Epogen or iron at this time is not particularly indicated --> Medications have been reviewed --> low threshold for gi evaluation in case has occult + --> hgb trend: 7.7-->8.2 --> serum electrophoresis ordered 06/20 # Coagulopathy due to cirrhosis --> give Vitk as needed --> ordered 06/23 # Acute alcoholic intoxication --> etoh abuse history --> thiamine, folic acid, ivf # End-stage liver disease --> Hepatorenal syndrome r/o with renal, albumin prn # Pancreatitis, alcoholic, acute # Tachycardia The timing of this note does not necessarily reflect the time of the patient was seen. GREATLY APPRECIATE CONSULTATION. Subjective Constitutional: Denies: no symptoms, chills, fever, malaise, weakness, other HEENT: Denies: no symptoms, eye pain, blurred vision, tearing, double vision, ear pain, ear discharge, nose pain, nose congestion, throat pain, throat swelling, mouth pain, mouth swelling, other Cardiovascular: Denies: no symptoms, chest pain, edema, irregular heart rate, lightheadedness, palpitations, syncope, other Respiratory: Denies: no symptoms, cough, shortness of breath, SOB with excertion, SOB at rest, sputum, wheezing, other Gastrointestinal/Abdominal: Denies: no symptoms, abdomen distended, abdominal pain, black stools, tarry stools, blood in stool, constipated, diarrhea, difficulty swallowing, nausea, poor appetite, poor fluid intake, rectal bleeding , vomiting, other Genitourinary: Denies: no symptoms, burning, discharge, frequency, flank pain, hematuria, incontinence, pain, urgency, other Neurologic/Psychiatric: Denies: no symptoms, anxiety, depressed, emotional problems, headache, numbness, paresthesia, pre-existing deficit, seizure, tingling, tremors, weakness, other Allergies: Coded Allergies: No Known Allergies (Unverified , 06/20/19) Subjective 06/21: low k, ferritin 297, h/h stable, afebrile, blood transfused 06/22: in icu, on restraints, labs reviewed, no f/c, imaging reviewed 06/23: pain meds given, remains in icu, again in restraints, bili higher, inr as well, given vitk Objective Objective Current Medications Medications (Trade) Dose Ordered Sig/Gabriela Route PRN Reason Start Time Stop Time Status Last Admin Dose Admin Acetaminophen (Tylenol) 325 mg Q6H PRN NG Mild Pain/Temp > 100.5 06/22/19 10:00 07/22/19 09:59 06/23/19 08:47 Dextrose/Sodium Chloride 1,000 ml @ 50 mls/hr Q20H IV 06/21/19 14:16 07/21/19 14:15 06/23/19 06:00 Folic Acid (Folate) 5 mg DAILY NG 06/23/19 09:00 07/20/19 12:44 06/23/19 08:48 Ipratropium [place] (Atrovent) 500 mcg Q4H PRN HHN Shortness of Breath 06/21/19 15:00 06/26/19 14:59 Ipratropium [place] (Atrovent) 500 mcg Q4HRT HHN 06/21/19 16:45 06/26/19 16:44 06/23/19 10:52 Lactulose (Cephulac) 30 gm FOUR TIMES A DAY NG 06/23/19 13:00 07/20/19 12:59 Lorazepam (Ativan 2mg/ml 1ml) 1 mg Q3H PRN IV For Anxiety 06/23/19 09:30 06/28/19 14:16 Pantoprazole (Protonix) 40 mg EVERY 12 HOURS IVP 06/21/19 21:00 07/20/19 20:59 06/23/19 08:47 Piperacillin Sod/ Tazobactam Sod 3.375 gm/Sodium Chloride 110 ml @ 27.5 mls/hr EVERY 8 HOURS IVPB 06/22/19 09:30 06/27/19 09:29 06/23/19 06:00 Potassium Phosphate 30 mm/ Sodium Chloride 560 ml @ 93.333 mls/ hr ONCE IV 06/23/19 11:00 06/23/19 18:00 06/23/19 10:58 Potassium Chloride 100 ml @ 100 mls/hr EVERY HOUR IVPB 06/23/19 09:00 06/23/19 14:59 06/23/19 12:17 Rifaximin (Xifaxan) 550 mg EVERY 12 HOURS NG 06/22/19 21:00 06/29/19 20:59 06/23/19 08:49 Thiamine HCl 100 mg/Dextrose 56 ml @ 112 mls/hr Q24H IVPB 06/21/19 15:00 07/20/19 14:59 06/22/19 14:36 Last 24 Hour Vital Signs Date Time Temp Pulse Resp B/P (MAP) Pulse Ox O2 Delivery O2 Flow Rate FiO2 06/23/19 12:00 98.2 101 20 110/64 (79) 99 06/23/19 12:00 Nasal Cannula 3.0 06/23/19 11:00 104 28 97/59 (72) 98 06/23/19 10:53 104 20 100 Nasal Cannula 2.0 28 111 20 100 06/23/19 10:00 111 35 107/67 (80) 95 06/23/19 09:17 99.2 06/23/19 09:00 115 35 106/62 (77) 95 06/23/19 08:00 99.2 114 38 109/67 (81) 96 06/23/19 08:00 Nasal Cannula 3.0 06/23/19 08:00 117 06/23/19 07:08 94 Nasal Cannula 2.0 28 06/23/19 07:08 103 22 99 Nasal Cannula 2.0 28 114 22 94 06/23/19 07:00 119 35 109/64 (79) 95 06/23/19 06:00 114 39 107/63 (78) 95 06/23/19 05:00 115 27 103/62 (76) 95 06/23/19 04:00 99.8 114 26 101/63 (76) 97 06/23/19 04:00 Venturi Mask 10.0 06/23/19 04:00 114 06/23/19 03:17 106 23 99 Nasal Cannula 2.0 28 109 21 96 06/23/19 03:00 117 34 110/67 (81) 95 06/23/19 02:00 116 33 111/68 (82) 95 06/23/19 01:00 111 34 105/62 (76) 97 06/23/19 00:00 99.1 109 31 100/54 (69) 95 06/23/19 00:00 Venturi Mask 10.0 06/23/19 00:00 109 06/22/19 23:22 106 23 99 Nasal Cannula 2.0 28 107 21 96 06/22/19 23:00 112 33 95/55 (68) 96 06/22/19 22:00 107 30 97/59 (72) 96 06/22/19 21:00 105 27 99/63 (75) 97 06/22/19 20:00 98.3 108 20 104/59 (74) 97 06/22/19 20:00 Venturi Mask 10.0 06/22/19 20:00 108 06/22/19 19:41 98 Nasal Cannula 2.0 28 06/22/19 19:27 104 23 98 Nasal Cannula 2.0 28 103 19 96 06/22/19 19:00 106 26 98/54 (69) 96 06/22/19 18:00 112 31 98/54 (69) 96 06/22/19 17:00 106 29 98/54 (69) 96 06/22/19 16:00 104 06/22/19 16:00 Venturi Mask 10.0 06/22/19 16:00 98.8 106 29 99/55 (70) 95 06/22/19 15:19 104 23 98 Nasal Cannula 2.0 28 106 19 95 06/22/19 15:00 107 22 97/63 (74) 94 06/22/19 14:00 108 29 103/60 (74) 96 06/22/19 13:00 98.0 107 27 115/72 (86) 96 06/22/19 12:00 109 06/22/19 12:00 97.1 107 24 115/72 (86) 96 06/22/19 12:00 Venturi Mask 10.0 06/22/19 11:28 109 23 95 Nasal Cannula 2.0 28 108 21 97 06/22/19 11:00 108 24 103/60 (74) 96 06/22/19 10:00 113 26 87/65 (72) 97 06/22/19 09:00 115 31 90/74 (79) 99 06/22/19 08:00 98.6 119 33 111/95 (100) 98 06/22/19 08:00 Venturi Mask 10.0 06/22/19 08:00 120 06/22/19 07:47 120 40 100 Venturi Mask 8.0 40 120 35 98 06/22/19 07:33 98 06/22/19 07:00 129 36 111/58 (75) 96 06/22/19 06:49 102.4 06/22/19 06:00 127 40 98/60 (73) 95 06/22/19 05:23 127 06/22/19 05:00 126 34 76/44 (55) 95 06/22/19 04:00 100.4 126 34 97/49 (65) 95 06/22/19 04:00 Venturi Mask 8.0 06/22/19 03:00 122 35 85/51 (62) 96 06/22/19 02:57 124 40 97 Venturi Mask 6.0 35 124 36 96 06/22/19 02:00 125 30 96/56 (69) 96 06/22/19 01:00 124 30 98/57 (71) 96 06/22/19 00:00 125 06/22/19 00:00 Venturi Mask 8.0 06/22/19 00:00 99.2 126 35 104/68 (80) 96 06/21/19 23:44 123 38 97 Venturi Mask 6.0 35 120 26 96 06/21/19 23:00 121 30 118/79 (92) 97 06/21/19 22:00 123 30 98/60 (73) 95 06/21/19 21:45 96 Venturi Mask 6.0 35 06/21/19 21:45 121 34 98 Venturi Mask 8.0 40 120 34 96 06/21/19 21:00 128 30 113/75 (88) 97 06/21/19 20:00 Venturi Mask 8.0 06/21/19 20:00 122 06/21/19 20:00 98.6 117 36 99/58 (72) 98 06/21/19 19:00 120 37 91/69 (76) 97 06/21/19 18:00 118 37 92/54 (67) 97 06/21/19 17:00 123 38 92/57 (69) 95 06/21/19 16:00 98.5 123 40 99/59 (72) 96 06/21/19 16:00 Venturi Mask 10.0 06/21/19 15:05 130 40 97 Venturi Mask 8.0 40 06/21/19 15:02 131 40 97 Venturi Mask 8.0 40 130 40 97 06/21/19 14:58 131 38 128/87 (101) 97 06/21/19 14:00 128 41 104/61 (75) 98 06/21/19 14:00 127 06/21/19 13:45 101.1 127 36 104/61 (75) 93 Intake and Output 06/22/19 06/23/19 18:59 06:59 Intake Total 1214.5 ml 710.0 ml Output Total 830 ml 725 ml Balance 384.5 ml -15.0 ml IV Total 1154.5 ml 710.0 ml Other 60 ml Output Urine Total 330 ml 325 ml Stool Total 500 ml 400 ml # Bowel Movements 3 3 Labs Test 06/21/19 05:50 06/21/19 10:11 06/22/19 04:00 06/22/19 06:58 White Blood Count 13.9 K/UL (4.8-10.8) 14.3 K/UL (4.8-10.8) Red Blood Count 2.58 M/UL (4.70-6.10) 2.75 M/UL (4.70-6.10) Hemoglobin 7.7 G/DL (14.2-18.0) 8.2 G/DL (14.2-18.0) Hematocrit 23.9 % (42.0-52.0) 25.7 % (42.0-52.0) Mean Corpuscular Volume 93 FL (80-99) 93 FL (80-99) Mean Corpuscular Hemoglobin 29.8 PG (27.0-31.0) 30.0 PG (27.0-31.0) Mean Corpuscular Hemoglobin Concent 32.2 G/DL (32.0-36.0) 32.1 G/DL (32.0-36.0) Red Cell Distribution Width 17.9 % (11.6-14.8) 18.0 % (11.6-14.8) Platelet Count 97 K/UL (150-450) 117 K/UL (150-450) Mean Platelet Volume 8.1 FL (6.5-10.1) 8.5 FL (6.5-10.1) Neutrophils (%) (Auto) % (45.0-75.0) 82.7 % (45.0-75.0) Lymphocytes (%) (Auto) % (20.0-45.0) 8.2 % (20.0-45.0) Monocytes (%) (Auto) % (1.0-10.0) 5.9 % (1.0-10.0) Eosinophils (%) (Auto) % (0.0-3.0) 2.3 % (0.0-3.0) Basophils (%) (Auto) % (0.0-2.0) 1.0 % (0.0-2.0) Differential Total Cells Counted 100 Neutrophils % (Manual) 74 % (45-75) Lymphocytes % (Manual) 11 % (20-45) Monocytes % (Manual) 2 % (1-10) Eosinophils % (Manual) 0 % (0-3) Basophils % (Manual) 0 % (0-2) Band Neutrophils 13 % (0-8) Nucleated Red Blood Cells 1 /100 WBC Platelet Estimate Decreased Platelet Morphology Normal Hypochromasia 3+ Anisocytosis 3+ Target Cells 3+ Sodium Level 139 MMOL/L (136-145) 143 MMOL/L (136-145) Potassium Level 2.6 MMOL/L (3.5-5.1) 3.0 MMOL/L (3.5-5.1) Chloride Level 103 MMOL/L (98-107) 108 MMOL/L (98-107) Carbon Dioxide Level 20 MMOL/L (21-32) 19 MMOL/L (21-32) Anion Gap 16 mmol/L (5-15) 16 mmol/L (5-15) Blood Urea Nitrogen 33 mg/dL (7-18) 36 mg/dL (7-18) Creatinine 2.2 MG/DL (0.55-1.30) 2.0 MG/DL (0.55-1.30) Estimat Glomerular Filtration Rate 33.5 mL/min (>60) 37.4 mL/min (>60) Glucose Level 131 MG/DL (74-106) 126 MG/DL (74-106) Uric Acid 10.2 MG/DL (2.6-7.2) 10.2 MG/DL (2.6-7.2) Calcium Level 7.9 MG/DL (8.5-10.1) 7.8 MG/DL (8.5-10.1) Phosphorus Level 1.4 MG/DL (2.5-4.9) 1.9 MG/DL (2.5-4.9) Magnesium Level 2.2 MG/DL (1.8-2.4) 1.9 MG/DL (1.8-2.4) Total Bilirubin 20.6 MG/DL (0.2-1.0) 23.1 MG/DL (0.2-1.0) Direct Bilirubin 17.2 MG/DL (0.0-0.3) 17.7 MG/DL (0.0-0.3) Aspartate Amino Transf (AST/SGOT) 253 U/L (15-37) 191 U/L (15-37) Alanine Aminotransferase (ALT/SGPT) 18 U/L (12-78) 15 U/L (12-78) Alkaline Phosphatase 493 U/L (46-116) 439 U/L (46-116) Ammonia 115 umol/L (11-32) 126 umol/L (11-32) C-Reactive Protein, Quantitative 11.0 mg/dL (0.00-0.90) 9.8 mg/dL (0.00-0.90) Pro-B-Type Natriuretic Peptide 372 pg/mL (0-125) 242 pg/mL (0-125) Total Protein 6.3 G/DL (6.4-8.2) 6.2 G/DL (6.4-8.2) Albumin 2.1 G/DL (3.4-5.0) 2.0 G/DL (3.4-5.0) Globulin 4.2 g/dL 4.2 g/dL Albumin/Globulin Ratio 0.5 (1.0-2.7) 0.5 (1.0-2.7) Amylase Level 83 U/L (25-115) Lipase 483 U/L (73-393) 407 U/L (73-393) Arterial Blood pH 7.529 (7.350-7.450) 7.509 (7.350-7.450) Arterial Blood Partial Pressure CO2 24.4 mmHg (35.0-45.0) 22.7 mmHg (35.0-45.0) Arterial Blood Partial Pressure O2 73.8 mmHg (75.0-100.0) 92.9 mmHg (75.0-100.0) Arterial Blood HCO3 19.9 mmol/L (22.0-26.0) 17.7 mmol/L (22.0-26.0) Arterial Blood Oxygen Saturation 94.9 % (95-100) 96.7 % (95-100) Arterial Blood Base Excess -2.2 (-2-2) -4.3 (-2-2) Dave Test Positive Positive Gamma Glutamyl Transpeptidase 1379 U/L (5-85) Troponin I 0.024 ng/mL (0.000-0.056) Test 06/23/19 04:30 White Blood Count 16.0 K/UL (4.8-10.8) Red Blood Count 2.70 M/UL (4.70-6.10) Hemoglobin 8.2 G/DL (14.2-18.0) Hematocrit 25.2 % (42.0-52.0) Mean Corpuscular Volume 93 FL (80-99) Mean Corpuscular Hemoglobin 30.2 PG (27.0-31.0) Mean Corpuscular Hemoglobin Concent 32.4 G/DL (32.0-36.0) Red Cell Distribution Width 18.6 % (11.6-14.8) Platelet Count 153 K/UL (150-450) Mean Platelet Volume 6.9 FL (6.5-10.1) Neutrophils (%) (Auto) 80.3 % (45.0-75.0) Lymphocytes (%) (Auto) 9.3 % (20.0-45.0) Monocytes (%) (Auto) 6.3 % (1.0-10.0) Eosinophils (%) (Auto) 3.2 % (0.0-3.0) Basophils (%) (Auto) 1.0 % (0.0-2.0) Prothrombin Time 22.1 SEC (9.30-11.50) Prothromb Time International Ratio 2.2 (0.9-1.1) Sodium Level 150 MMOL/L (136-145) Potassium Level 2.5 MMOL/L (3.5-5.1) Chloride Level 115 MMOL/L (98-107) Carbon Dioxide Level 23 MMOL/L (21-32) Anion Gap 12 mmol/L (5-15) Blood Urea Nitrogen 33 mg/dL (7-18) Creatinine 1.9 MG/DL (0.55-1.30) Estimat Glomerular Filtration Rate 39.7 mL/min (>60) Glucose Level 117 MG/DL (74-106) Uric Acid 7.7 MG/DL (2.6-7.2) Calcium Level 8.3 MG/DL (8.5-10.1) Phosphorus Level 1.4 MG/DL (2.5-4.9) Magnesium Level 1.8 MG/DL (1.8-2.4) Total Bilirubin 26.0 MG/DL (0.2-1.0) Direct Bilirubin 21.6 MG/DL (0.0-0.3) Gamma Glutamyl Transpeptidase 1200 U/L (5-85) Aspartate Amino Transf (AST/SGOT) 151 U/L (15-37) Alanine Aminotransferase (ALT/SGPT) 12 U/L (12-78) Alkaline Phosphatase 400 U/L (46-116) Ammonia 109 umol/L (11-32) Total Creatine Kinase 117 U/L (26-308) C-Reactive Protein, Quantitative 7.8 mg/dL (0.00-0.90) Pro-B-Type Natriuretic Peptide 126 pg/mL (0-125) Total Protein 6.0 G/DL (6.4-8.2) Albumin 1.8 G/DL (3.4-5.0) Globulin 4.2 g/dL Albumin/Globulin Ratio 0.4 (1.0-2.7) Lipase 319 U/L (73-393) Height (Feet): 5 Height (Inches): 9.00 Weight (Pounds): 220 Objective Physical Exam: Vitals: reviewed General Appearance: NAD HEENT: normocephalic, atraumatic ++ icterus jaundice Neck: non-tender, normal alignment Respiratory/Chest: normal breath sounds bilaterally Cardiovascular/Chest: normal peripheral pulses, normal rate Abdomen: normal bowel sounds, soft,+ peg Extremities: normal range of motion Marty Kebede MD Jun 23, 2019 12:33
[2019-06-23] MEDS: Lactulose 20gm/30ml UDC NG SCH ×3 (13:19→20:29)
[2019-06-23] MEDS ORDERED: D5NS 1000ml IV ONE (13:41)
[2019-06-23] MEDS ORDERED: NS 275ml ONE (13:41)
[2019-06-23] MEDS ORDERED: Phytonadione 10 MG in D5W 55 ML IVPB ONE (14:00)
--- NOTE | 2019-06-23 14:46 | Cardiac Electrophysiology PN ---
Assessment/Plan Assessment/Plan 1. Sinus tachycardia due to alcohol withdrawal and hepatic encephalopathy. No evidence of atrial fibrillation. Echo EF 55% 2. Hepatic failure and cirrhosis. His total bilirubin is 17 . On Lactulose. 3. Hepatorenal syndrome. Creatinine is 2. Further evaluation by . 4. Hypokalemia. 5. Alcohol intoxication. Thiamine, folate, and Librium. 6. Hepatic encephalopathy DW RN Subjective Subjective in ICU in restraints and lethargic. Paracentesis pending Objective Last 24 Hour Vital Signs Date Time Temp Pulse Resp B/P (MAP) Pulse Ox O2 Delivery O2 Flow Rate FiO2 06/23/19 14:00 94 20 107/67 (80) 98 06/23/19 13:00 97 21 101/65 (77) 98 06/23/19 12:00 98.2 101 20 110/64 (79) 99 06/23/19 12:00 Nasal Cannula 3.0 06/23/19 12:00 103 06/23/19 11:00 104 28 97/59 (72) 98 06/23/19 10:53 104 20 100 Nasal Cannula 2.0 28 111 20 100 06/23/19 10:00 111 35 107/67 (80) 95 06/23/19 09:17 99.2 06/23/19 09:00 115 35 106/62 (77) 95 06/23/19 08:00 99.2 114 38 109/67 (81) 96 06/23/19 08:00 Nasal Cannula 3.0 06/23/19 08:00 117 06/23/19 07:08 94 Nasal Cannula 2.0 28 06/23/19 07:08 103 22 99 Nasal Cannula 2.0 28 114 22 94 06/23/19 07:00 119 35 109/64 (79) 95 06/23/19 06:00 114 39 107/63 (78) 95 06/23/19 05:00 115 27 103/62 (76) 95 06/23/19 04:00 99.8 114 26 101/63 (76) 97 06/23/19 04:00 Venturi Mask 10.0 06/23/19 04:00 114 06/23/19 03:17 106 23 99 Nasal Cannula 2.0 28 109 21 96 06/23/19 03:00 117 34 110/67 (81) 95 06/23/19 02:00 116 33 111/68 (82) 95 06/23/19 01:00 111 34 105/62 (76) 97 06/23/19 00:00 99.1 109 31 100/54 (69) 95 06/23/19 00:00 Venturi Mask 10.0 06/23/19 00:00 109 06/22/19 23:22 106 23 99 Nasal Cannula 2.0 28 107 21 96 06/22/19 23:00 112 33 95/55 (68) 96 06/22/19 22:00 107 30 97/59 (72) 96 06/22/19 21:00 105 27 99/63 (75) 97 06/22/19 20:00 98.3 108 20 104/59 (74) 97 06/22/19 20:00 Venturi Mask 10.0 06/22/19 20:00 108 06/22/19 19:41 98 Nasal Cannula 2.0 28 06/22/19 19:27 104 23 98 Nasal Cannula 2.0 28 103 19 96 06/22/19 19:00 106 26 98/54 (69) 96 06/22/19 18:00 112 31 98/54 (69) 96 06/22/19 17:00 106 29 98/54 (69) 96 06/22/19 16:00 104 06/22/19 16:00 Venturi Mask 10.0 06/22/19 16:00 98.8 106 29 99/55 (70) 95 06/22/19 15:19 104 23 98 Nasal Cannula 2.0 28 106 19 95 06/22/19 15:00 107 22 97/63 (74) 94 Intake and Output 06/22/19 06/23/19 18:59 06:59 Intake Total 1214.5 ml 710.0 ml Output Total 830 ml 725 ml Balance 384.5 ml -15.0 ml IV Total 1154.5 ml 710.0 ml Other 60 ml Output Urine Total 330 ml 325 ml Stool Total 500 ml 400 ml # Bowel Movements 3 3 Laboratory Tests Test 06/23/19 04:30 White Blood Count 16.0 K/UL (4.8-10.8) H Red Blood Count 2.70 M/UL (4.70-6.10) L Hemoglobin 8.2 G/DL (14.2-18.0) L Hematocrit 25.2 % (42.0-52.0) L Mean Corpuscular Volume 93 FL (80-99) Mean Corpuscular Hemoglobin 30.2 PG (27.0-31.0) Mean Corpuscular Hemoglobin Concent 32.4 G/DL (32.0-36.0) Red Cell Distribution Width 18.6 % (11.6-14.8) H Platelet Count 153 K/UL (150-450) Mean Platelet Volume 6.9 FL (6.5-10.1) Neutrophils (%) (Auto) 80.3 % (45.0-75.0) H Lymphocytes (%) (Auto) 9.3 % (20.0-45.0) L Monocytes (%) (Auto) 6.3 % (1.0-10.0) Eosinophils (%) (Auto) 3.2 % (0.0-3.0) H Basophils (%) (Auto) 1.0 % (0.0-2.0) Prothrombin Time 22.1 SEC (9.30-11.50) H Prothromb Time International Ratio 2.2 (0.9-1.1) H Sodium Level 150 MMOL/L (136-145) H Potassium Level 2.5 MMOL/L (3.5-5.1) *L Chloride Level 115 MMOL/L (98-107) H Carbon Dioxide Level 23 MMOL/L (21-32) Anion Gap 12 mmol/L (5-15) Blood Urea Nitrogen 33 mg/dL (7-18) H Creatinine 1.9 MG/DL (0.55-1.30) H Estimat Glomerular Filtration Rate 39.7 mL/min (>60) Glucose Level 117 MG/DL (74-106) H Uric Acid 7.7 MG/DL (2.6-7.2) H Calcium Level 8.3 MG/DL (8.5-10.1) L Phosphorus Level 1.4 MG/DL (2.5-4.9) L Magnesium Level 1.8 MG/DL (1.8-2.4) Total Bilirubin 26.0 MG/DL (0.2-1.0) H Direct Bilirubin 21.6 MG/DL (0.0-0.3) H Gamma Glutamyl Transpeptidase 1200 U/L (5-85) H Aspartate Amino Transf (AST/SGOT) 151 U/L (15-37) H Alanine Aminotransferase (ALT/SGPT) 12 U/L (12-78) Alkaline Phosphatase 400 U/L (46-116) H Ammonia 109 umol/L (11-32) H Total Creatine Kinase 117 U/L (26-308) C-Reactive Protein, Quantitative 7.8 mg/dL (0.00-0.90) H Pro-B-Type Natriuretic Peptide 126 pg/mL (0-125) H Total Protein 6.0 G/DL (6.4-8.2) L Albumin 1.8 G/DL (3.4-5.0) L Globulin 4.2 g/dL Albumin/Globulin Ratio 0.4 (1.0-2.7) L Lipase 319 U/L (73-393) Objective HEAD AND NECK: No JVD. Sclera is jaundiced. LUNGS: Decreased breath sounds. CARDIOVASCULAR: Tachycardic. S1 and S2 with no gallop. ABDOMEN: Distended with ascites. EXTREMITIES: 2+ pitting edema. Felice Smith MD Jun 23, 2019 14:46
[2019-06-23] MEDS: Thiamine HCl 100 MG in D5W 55 ML IVPB SCH (15:56)
--- NOTE | 2019-06-23 17:46 | Pulmonolgy Critical Care Note ---
Critical Care - Asmt/Plan Assessment/Plan: Pulmonary CCM Consultation HPI This is a 39-year-old male who is an alcoholic with significant fatty liver on abdominal CT and alcoholic hepatitis, DF 16, not candidate for steroids currently per GI. He has been drinking heavily for 3 months straight. He stopped drinking [employer]. Noted to have Hepatic Encephalopathy and Hepatorenal Syndrome. No bleeding. No nausea no vomiting. Nothing made it better. Movement or exertion makes it worse. Noted to have significant hypokalemia and alkalosis, evidence of sepsis, source unclear - some bacteria in urine, mid ascites - possible SBP, dilated Gallbladder More awake today, has NGT and on Lactulose Allergies: No Known Allergies Past Medical History: Alcohol abuse All Other Systems: negative except mentioned in HPI Physical Exam Vital Signs Noted General Appearance: Jaundiced, ill appearing, less somnolent Head: normocephalic, atraumatic Eyes: bilateral eye PERRL, bilateral eye EOMI, bilateral eye scleral icterus ENT: moist mm Neck: no masses, no LN Respiratory: chest non-tender, lungs clear, normal breath sounds Cardiovascular: regular rate, rhythm, Normal HS1, HS2, no murmur, tachycardia Gastrointestinal: Obese, hepatomegaly, some tenderness RUQ, normal bowel sounds , no mass, no rebound Musculoskeletal: moves all limbs Neurologic: responds to commands, drowsy Skin: jaundiced, moderate edema Impression: Acute alcoholic intoxication Severe Sepsis Alcoholic Hepatitis Possible Cirrhosis Metabolic and respiratory alkalosis Possible Portal Hypertension Hepatorenal syndrome Pancreatitis, alcoholic, acute Anemia Plan ICU management NPO except meds IV antibiotics per ID Aspiration precautions GI/Renal following IVF PRN Transfuse PRN Thiamine Monitor labs K supplementation Adjust FIO2 - sats 90-96% If have wosening AMS may require intubation for airway protection Labs: noted EKG: Rate: tachycardiac Rhythm: NSR ST Segments: other - NSST changes Chest X-Ray: hypoventilatory exam, no consolidation, no effusion, no pneumothorax, no acute cardiopulmonary disease CT abdomen pelvis: Severely enlarged liver and fatty liver. Mild ascites. Critical Care - Objective Last 24 Hour Vital Signs Date Time Temp Pulse Resp B/P (MAP) Pulse Ox O2 Delivery O2 Flow Rate FiO2 06/23/19 17:00 97.6 97 19 111/68 (82) 100 06/23/19 17:00 99 06/23/19 16:00 96 29 92/58 (69) 98 8/31/19 16:00 Nasal Cannula 3.0 06/23/19 15:13 105 22 100 Nasal Cannula 2.0 28 94 22 100 06/23/19 15:00 93 28 106/62 (77) 98 06/23/19 14:00 94 20 107/67 (80) 98 06/23/19 13:00 97 21 101/65 (77) 98 06/23/19 12:00 98.2 101 20 110/64 (79) 99 06/23/19 12:00 Nasal Cannula 3.0 06/23/19 12:00 103 06/23/19 11:00 104 28 97/59 (72) 98 06/23/19 10:53 104 20 100 Nasal Cannula 2.0 28 111 20 100 06/23/19 10:00 111 35 107/67 (80) 95 06/23/19 09:17 99.2 06/23/19 09:00 115 35 106/62 (77) 95 06/23/19 08:00 99.2 114 38 109/67 (81) 96 06/23/19 08:00 Nasal Cannula 3.0 06/23/19 08:00 117 06/23/19 07:08 94 Nasal Cannula 2.0 28 06/23/19 07:08 103 22 99 Nasal Cannula 2.0 28 114 22 94 06/23/19 07:00 119 35 109/64 (79) 95 06/23/19 06:00 114 39 107/63 (78) 95 06/23/19 05:00 115 27 103/62 (76) 95 06/23/19 04:00 99.8 114 26 101/63 (76) 97 06/23/19 04:00 Venturi Mask 10.0 06/23/19 04:00 114 06/23/19 03:17 106 23 99 Nasal Cannula 2.0 28 109 21 96 06/23/19 03:00 117 34 110/67 (81) 95 06/23/19 02:00 116 33 111/68 (82) 95 06/23/19 01:00 111 34 105/62 (76) 97 06/23/19 00:00 99.1 109 31 100/54 (69) 95 06/23/19 00:00 Venturi Mask 10.0 06/23/19 00:00 109 06/22/19 23:22 106 23 99 Nasal Cannula 2.0 28 107 21 96 06/22/19 23:00 112 33 95/55 (68) 96 06/22/19 22:00 107 30 97/59 (72) 96 06/22/19 21:00 105 27 99/63 (75) 97 06/22/19 20:00 98.3 108 20 104/59 (74) 97 06/22/19 20:00 Venturi Mask 10.0 06/22/19 20:00 108 06/22/19 19:41 98 Nasal Cannula 2.0 28 06/22/19 19:27 104 23 98 Nasal Cannula 2.0 28 103 19 96 06/22/19 19:00 106 26 98/54 (69) 96 06/22/19 18:00 112 31 98/54 (69) 96 Critical Care - Subjective ROS Limited/Unobtainable: No FI02: 28 Sputum Amount: Scant Tube Feeding Amount: 10 I&O: Intake and Output 06/22/19 06/23/19 19:00 07:00 Intake Total 1214.5 ml 737.5 ml Output Total 835 ml 720 ml Balance 379.5 ml 17.5 ml IV Total 1154.5 ml 737.5 ml Other 60 ml Output Urine Total 335 ml 320 ml Stool Total 500 ml 400 ml # Bowel Movements 3 3 Quang Domingo MD Jun 23, 2019 17:46
--- NOTE | 2019-06-23 22:09 | General Progress Note ---
Assessment/Plan Problem List: (1) Anemia ICD Codes: D64.9 - Anemia, unspecified SNOMED: 175728548 Qualifiers: Qualified Codes: D64.9 - Anemia, unspecified (2) Acute alcoholic intoxication ICD Codes: F10.929 - Alcohol use, unspecified with intoxication, unspecified SNOMED: 71301074, 6287018 Qualifiers: Qualified Codes: F10.920 - Alcohol use, unspecified with intoxication, uncomplicated (3) End-stage liver disease ICD Codes: K72.90 - Hepatic failure, unspecified without coma SNOMED: 674205940 (4) Hepatorenal syndrome ICD Codes: K76.7 - Hepatorenal syndrome SNOMED: 70655030, 3632759 (5) Pancreatitis, alcoholic, acute ICD Codes: K85.20 - Alcohol induced acute pancreatitis without necrosis or infection SNOMED: 942718024, 0161025 Qualifiers: Qualified Codes: K85.20 - Alcohol induced acute pancreatitis without necrosis or infection (6) Respiratory failure ICD Codes: J96.90 - Respiratory failure, unspecified, unspecified whether with hypoxia or hypercapnia SNOMED: 316921920 Status: progressing, not improved, unchanged, deteriorating Assessment/Plan: respiratory failure etoh cirrhosis jaundice improving afebrile poor prognosis ams hepatic encephalopathy azotemia stable lyte abnormality Subjective ROS Limited/Unobtainable: Yes Allergies: Coded Allergies: No Known Allergies (Unverified , 06/20/19) Objective Last 24 Hour Vital Signs Date Time Temp Pulse Resp B/P (MAP) Pulse Ox O2 Delivery O2 Flow Rate FiO2 06/23/19 20:00 Nasal Cannula 3.0 06/23/19 19:33 92 15 99 Nasal Cannula 2.0 28 84 17 96 06/23/19 19:33 96 Nasal Cannula 2.0 28 06/23/19 19:00 94 20 110/63 (79) 99 06/23/19 18:00 97 20 105/67 (80) 99 06/23/19 17:00 97.6 97 19 111/68 (82) 100 06/23/19 17:00 99 06/23/19 16:00 96 29 92/58 (69) 98 06/23/19 16:00 Nasal Cannula 3.0 06/23/19 15:13 105 22 100 Nasal Cannula 2.0 28 94 22 100 06/23/19 15:00 93 28 106/62 (77) 98 06/23/19 14:00 94 20 107/67 (80) 98 06/23/19 13:00 97 21 101/65 (77) 98 06/23/19 12:00 98.2 101 20 110/64 (79) 99 06/23/19 12:00 Nasal Cannula 3.0 06/23/19 12:00 103 06/23/19 11:00 104 28 97/59 (72) 98 06/23/19 10:53 104 20 100 Nasal Cannula 2.0 28 111 20 100 06/23/19 10:00 111 35 107/67 (80) 95 06/23/19 09:17 99.2 06/23/19 09:00 115 35 106/62 (77) 95 06/23/19 08:00 99.2 114 38 109/67 (81) 96 06/23/19 08:00 Nasal Cannula 3.0 06/23/19 08:00 117 06/23/19 07:08 94 Nasal Cannula 2.0 28 06/23/19 07:08 103 22 99 Nasal Cannula 2.0 28 114 22 94 06/23/19 07:00 119 35 109/64 (79) 95 06/23/19 06:00 114 39 107/63 (78) 95 06/23/19 05:00 115 27 103/62 (76) 95 06/23/19 04:00 99.8 114 26 101/63 (76) 97 06/23/19 04:00 Venturi Mask 10.0 06/23/19 04:00 114 06/23/19 03:17 106 23 99 Nasal Cannula 2.0 28 109 21 96 06/23/19 03:00 117 34 110/67 (81) 95 06/23/19 02:00 116 33 111/68 (82) 95 06/23/19 01:00 111 34 105/62 (76) 97 06/23/19 00:00 99.1 109 31 100/54 (69) 95 06/23/19 00:00 Venturi Mask 10.0 06/23/19 00:00 109 06/22/19 23:22 106 23 99 Nasal Cannula 2.0 28 107 21 96 06/22/19 23:00 112 33 95/55 (68) 96 Intake and Output 06/22/19 06/23/19 19:00 07:00 Intake Total 1214.5 ml 737.5 ml Output Total 835 ml 720 ml Balance 379.5 ml 17.5 ml IV Total 1154.5 ml 737.5 ml Other 60 ml Output Urine Total 335 ml 320 ml Stool Total 500 ml 400 ml # Bowel Movements 3 3 Laboratory Tests 06/23/19 04:30: White Blood Count 16.0H, Red Blood Count 2.70L, Hemoglobin 8.2L, Hematocrit 25.2L, Mean Corpuscular Volume 93, Mean Corpuscular Hemoglobin 30.2, Mean Corpuscular Hemoglobin Concent 32.4, Red Cell Distribution Width 18.6H, Platelet Count 153, Mean Platelet Volume 6.9, Neutrophils (%) (Auto) 80.3H, Lymphocytes (%) (Auto) 9.3L, Monocytes (%) (Auto) 6.3, Eosinophils (%) (Auto) 3.2H, Basophils (%) (Auto) 1.0, Prothrombin Time 22.1H, Prothromb Time International Ratio 2.2H, Sodium Level 150H, Potassium Level 2.5*L, Chloride Level 115H, Carbon Dioxide Level 23, Anion Gap 12, Blood Urea Nitrogen 33H, Creatinine 1.9H, Estimat Glomerular Filtration Rate 39.7, Glucose Level 117H, Uric Acid 7.7H, Calcium Level 8.3L, Phosphorus Level 1.4L, Magnesium Level 1.8, Total Bilirubin 26.0H, Direct Bilirubin 21.6H, Gamma Glutamyl Transpeptidase 1200H, Aspartate Amino Transf (AST/SGOT) 151H, Alanine Aminotransferase (ALT/ SGPT) 12, Alkaline Phosphatase 400H, Ammonia 109H, Total Creatine Kinase 117, C- Reactive Protein, Quantitative 7.8H, Pro-B-Type Natriuretic Peptide 126H, Total Protein 6.0L, Albumin 1.8L, Globulin 4.2, Albumin/Globulin Ratio 0.4L, Lipase 319 06/23/19 20:47: Urine Opiates Screen Negative, Urine Barbiturates Screen Negative, Phencyclidine (PCP) Screen Negative, Urine Amphetamines Screen Negative, Urine Benzodiazepines Screen PositiveH, Urine Cocaine Screen Negative, Urine Marijuana (THC) Screen Negative Height (Feet): 5 Height (Inches): 9.00 Weight (Pounds): 220 Cardiovascular: normal rate Respiratory/Chest: lungs clear Abdomen: soft Hadadz,Ali MD Jun 23, 2019 22:09
[2019-06-24] VITALS (24 sets, daily range): BP systolic 94–115; BP diastolic 48–69
[2019-06-24] MEDS: Ipratropium 0.02% Inh Soln 2.5ml UD HHN SCH ×6 (02:30→23:35)
[2019-06-24] MEDS: D5NS 1,000 ML IV SCH (02:43)
[2019-06-24] MEDS: Piperacillin/Tazobactam 3.375 GM in NS 110 ML IVPB SCH ×3 (05:08→21:09)
[2019-06-24 05:47] LABS: HEMATOCRIT 28.8 % (42.0-52.0); HEMOGLOBIN 9.1 G/DL (14.2-18.0); MEAN CORPUSCULAR VOLUME 96 FL (80-99); PLATELET COUNT 196 K/UL (150-450); RED BLOOD COUNT 3.01 M/UL (4.70-6.10); RED CELL DISTRIBUTION WIDTH 20.4 % (11.6-14.8); WHITE BLOOD COUNT 18.2 K/UL (4.8-10.8)
[2019-06-24 06:00] LABS: INR 1.9 (0.9-1.1)
[2019-06-24 06:19] LABS: ALANINE AMINOTRANSFERASE 15 U/L (12-78); ALBUMIN 1.8 G/DL (3.4-5.0); ALBUMIN/GLOBULIN RATIO 0.4 (1.0-2.7); ALKALINE PHOSPHATASE 382 U/L (46-116); ANION GAP 10 mmol/L (5-15); ASPARTATE AMINO TRANSFERASE 132 U/L (15-37); BILIRUBIN,TOTAL 27.5 MG/DL (0.2-1.0); BLOOD UREA NITROGEN 27 mg/dL (7-18); CALCIUM 8.5 MG/DL (8.5-10.1); CARBON DIOXIDE 24 MMOL/L (21-32); CHLORIDE 124 MMOL/L (98-107); CREATININE 1.5 MG/DL (0.55-1.30); SODIUM 158 MMOL/L (136-145)
[2019-06-24 06:21] LABS: POTASSIUM 2.5 MMOL/L (3.5-5.1)
[2019-06-24 06:22] LABS: BILIRUBIN,DIRECT 23.1 MG/DL (0.0-0.3)
[2019-06-24 06:51] LABS: PHOSPHORUS 2.1 MG/DL (2.5-4.9)
--- NOTE | 2019-06-24 07:19 | General Progress Note ---
Assessment/Plan Problem List: (1) Pancreatitis, alcoholic, acute ICD Codes: K85.20 - Alcohol induced acute pancreatitis without necrosis or infection SNOMED: 196646781, 5044829 Qualifiers: Qualified Codes: K85.20 - Alcohol induced acute pancreatitis without necrosis or infection (2) Acute alcoholic intoxication ICD Codes: F10.929 - Alcohol use, unspecified with intoxication, unspecified SNOMED: 10808496, 2395230 Qualifiers: Qualified Codes: F10.920 - Alcohol use, unspecified with intoxication, uncomplicated (3) Anemia ICD Codes: D64.9 - Anemia, unspecified SNOMED: 197182972 Qualifiers: Qualified Codes: D64.9 - Anemia, unspecified Status: progressing, not improved, unchanged, deteriorating Assessment/Plan: discriminant factor of 16 iv thiamine start NGTF ivf>> will HL if tolerated NGTF repeat labs fu nephrology cont lactulose>> will cut by half given severe diarrhea and hypo K xifaxan s/p blood transfusion paracentesis pending replace K Subjective ROS Limited/Unobtainable: No Allergies: Coded Allergies: No Known Allergies (Unverified , 06/20/19) Objective Last 24 Hour Vital Signs Date Time Temp Pulse Resp B/P (MAP) Pulse Ox O2 Delivery O2 Flow Rate FiO2 06/24/19 07:00 90 21 110/62 (78) 100 06/24/19 06:50 89 16 100 Nasal Cannula 2.0 28 88 19 100 06/24/19 06:50 99 Nasal Cannula 2.0 28 06/24/19 06:00 85 22 113/63 (80) 100 06/24/19 05:00 93 30 100/56 (71) 96 06/24/19 04:00 96 06/24/19 04:00 Nasal Cannula 3.0 06/24/19 04:00 97.5 89 28 97/58 (71) 98 06/24/19 03:00 96 21 108/69 (82) 99 06/24/19 02:31 100 18 100 Nasal Cannula 2.0 28 97 17 98 06/24/19 02:00 92 30 101/59 (73) 96 06/24/19 01:00 94 29 113/64 (80) 97 06/24/19 00:00 97.5 93 18 105/64 (78) 99 06/24/19 00:00 92 06/24/19 00:00 Nasal Cannula 3.0 06/23/19 23:00 94 18 113/64 (80) 99 06/23/19 22:40 97 19 100 Nasal Cannula 2.0 28 95 18 99 06/23/19 22:00 94 20 110/63 (79) 99 06/23/19 21:00 96 29 109/72 (84) 97 06/23/19 20:00 90 06/23/19 20:00 Nasal Cannula 3.0 06/23/19 20:00 97.5 90 26 107/68 (81) 99 06/23/19 19:33 92 15 99 Nasal Cannula 2.0 28 84 17 96 06/23/19 19:33 96 Nasal Cannula 2.0 28 06/23/19 19:00 94 20 110/63 (79) 99 06/23/19 18:00 97 20 105/67 (80) 99 06/23/19 17:00 97.6 97 19 111/68 (82) 100 06/23/19 17:00 99 06/23/19 16:00 96 29 92/58 (69) 98 06/23/19 16:00 Nasal Cannula 3.0 06/23/19 15:13 105 22 100 Nasal Cannula 2.0 28 94 22 100 06/23/19 15:00 93 28 106/62 (77) 98 06/23/19 14:00 94 20 107/67 (80) 98 06/23/19 13:00 97 21 101/65 (77) 98 06/23/19 12:00 98.2 101 20 110/64 (79) 99 06/23/19 12:00 Nasal Cannula 3.0 06/23/19 12:00 103 06/23/19 11:00 104 28 97/59 (72) 98 06/23/19 10:53 104 20 100 Nasal Cannula 2.0 28 111 20 100 06/23/19 10:00 111 35 107/67 (80) 95 06/23/19 09:17 99.2 06/23/19 09:00 115 35 106/62 (77) 95 06/23/19 08:00 99.2 114 38 109/67 (81) 96 06/23/19 08:00 Nasal Cannula 3.0 06/23/19 08:00 117 Intake and Output 06/23/19 06/24/19 19:00 07:00 Intake Total 2265.165 ml 760.7 ml Output Total 2595 ml 2475 ml Balance -329.835 ml -1714.3 ml Free Water 100 ml IV Total 2065.165 ml 520.7 ml Tube Feeding 100 ml 240 ml Output Urine Total 1595 ml 875 ml Stool Total 1000 ml 1600 ml # Bowel Movements 1 Laboratory Tests 06/23/19 20:47: Urine Opiates Screen Negative, Urine Barbiturates Screen Negative, Phencyclidine (PCP) Screen Negative, Urine Amphetamines Screen Negative, Urine Benzodiazepines Screen PositiveH, Urine Cocaine Screen Negative, Urine Marijuana (THC) Screen Negative 06/24/19 04:18: White Blood Count 18.2H, Red Blood Count 3.01L, Hemoglobin 9.1L, Hematocrit 28.8L, Mean Corpuscular Volume 96, Mean Corpuscular Hemoglobin 30.1, Mean Corpuscular Hemoglobin Concent 31.4L, Red Cell Distribution Width 20.4H, Platelet Count 196, Mean Platelet Volume 6.8, Neutrophils (%) (Auto) , Lymphocytes (%) (Auto) , Monocytes (%) (Auto) , Eosinophils (%) (Auto) , Basophils (%) (Auto) , Neutrophils % (Manual) [Pending], Lymphocytes % (Manual) [Pending], Platelet Estimate [Pending], Platelet Morphology [Pending], Prothrombin Time 20.0H, Prothromb Time International Ratio 1.9H, Sodium Level 158H, Potassium Level 2.5*L, Chloride Level 124H, Carbon Dioxide Level 24, Anion Gap 10, Blood Urea Nitrogen 27H, Creatinine 1.5H, Estimat Glomerular Filtration Rate 52.1, Glucose Level 119H, Uric Acid 4.7, Calcium Level 8.5, Phosphorus Level 2.1L, Magnesium Level 1.7L, Total Bilirubin 27.5H, Direct Bilirubin 23.1H, Gamma Glutamyl Transpeptidase 1052H, Aspartate Amino Transf ( AST/SGOT) 132H, Alanine Aminotransferase (ALT/SGPT) 15, Alkaline Phosphatase 382H, Ammonia 72H, Total Protein 5.9L, Albumin 1.8L, Globulin 4.1, Albumin/ Globulin Ratio 0.4L, Vitamin B12 Level 1705H, Folate 13.8 Height (Feet): 5 Height (Inches): 9.00 Weight (Pounds): 219 General Appearance: no apparent distress EENT: normal ENT inspection Neck: supple Cardiovascular: tachycardia Respiratory/Chest: decreased breath sounds Abdomen: normal bowel sounds, non tender, soft Extremities: non-tender Merlin Esposito MD Jun 24, 2019 07:19
[2019-06-24] MEDS: Pantoprazole Inj IVP SCH ×2 (08:17→20:36)
[2019-06-24] MEDS: Lactulose 20gm/30ml UDC NG SCH ×4 (08:17→20:36)
[2019-06-24] MEDS ORDERED: Potassium Phosphate 30 MM in NS 275 ML IV ONE (09:00)
--- NOTE | 2019-06-24 09:06 | Nephrology Progress Note ---
Assessment/Plan Problem List: (1) End-stage liver disease (2) Hepatorenal syndrome (3) Pancreatitis, alcoholic, acute (4) Acute alcoholic intoxication (5) Anemia (6) Respiratory failure Assessment Acute alcoholic intoxication End-stage liver disease Hepatorenal syndrome Pancreatitis, alcoholic, acute Anemia Plan k and Mag and phos supplement as needed has keith has RT (rectal tube) slow IV Fluids Correct lytes IV protonix lactulose Folate and Thiamin per GI transfuse per consultants Subjective ROS Limited/Unobtainable: Yes Objective Objective Last 24 Hour Vital Signs Date Time Temp Pulse Resp B/P (MAP) Pulse Ox O2 Delivery O2 Flow Rate FiO2 06/24/19 07:00 90 21 110/62 (78) 100 06/24/19 06:50 89 16 100 Nasal Cannula 2.0 88 19 100 06/24/19 06:50 99 Nasal Cannula 2.0 28 06/24/19 06:00 85 22 113/63 (80) 100 06/24/19 05:00 93 30 100/56 (71) 96 06/24/19 04:00 96 06/24/19 04:00 Nasal Cannula 3.0 06/24/19 04:00 97.5 89 28 97/58 (71) 98 06/24/19 03:00 96 21 108/69 (82) 99 06/24/19 02:31 100 18 100 Nasal Cannula 2.0 28 97 17 98 06/24/19 02:00 92 30 101/59 (73) 96 06/24/19 01:00 94 29 113/64 (80) 97 06/24/19 00:00 97.5 93 18 105/64 (78) 99 06/24/19 00:00 92 06/24/19 00:00 Nasal Cannula 3.0 06/23/19 23:00 94 18 113/64 (80) 99 06/23/19 22:40 97 19 100 Nasal Cannula 2.0 28 95 18 99 06/23/19 22:00 94 20 110/63 (79) 99 06/23/19 21:00 96 29 109/72 (84) 97 06/23/19 20:00 90 06/23/19 20:00 Nasal Cannula 3.0 06/23/19 20:00 97.5 90 26 107/68 (81) 99 06/23/19 19:33 92 15 99 Nasal Cannula 2.0 28 84 17 96 06/23/19 19:33 96 Nasal Cannula 2.0 28 06/23/19 19:00 94 20 110/63 (79) 99 06/23/19 18:00 97 20 105/67 (80) 99 06/23/19 17:00 97.6 97 19 111/68 (82) 100 06/23/19 17:00 99 06/23/19 16:00 96 29 92/58 (69) 98 06/23/19 16:00 Nasal Cannula 3.0 06/23/19 15:13 105 22 100 Nasal Cannula 2.0 28 94 22 100 06/23/19 15:00 93 28 106/62 (77) 98 06/23/19 14:00 94 20 107/67 (80) 98 06/23/19 13:00 97 21 101/65 (77) 98 06/23/19 12:00 98.2 101 20 110/64 (79) 99 06/23/19 12:00 Nasal Cannula 3.0 06/23/19 12:00 103 06/23/19 11:00 104 28 97/59 (72) 98 06/23/19 10:53 104 20 100 Nasal Cannula 2.0 28 111 20 100 06/23/19 10:00 111 35 107/67 (80) 95 06/23/19 09:17 99.2 Intake and Output 06/23/19 06/24/19 19:00 07:00 Intake Total 2265.165 ml 760.7 ml Output Total 2595 ml 2475 ml Balance -329.835 ml -1714.3 ml Free Water 100 ml IV Total 2065.165 ml 520.7 ml Tube Feeding 100 ml 240 ml Output Urine Total 1595 ml 875 ml Stool Total 1000 ml 1600 ml # Bowel Movements 1 Laboratory Tests 06/23/19 20:47: Urine Opiates Screen Negative, Urine Barbiturates Screen Negative, Phencyclidine (PCP) Screen Negative, Urine Amphetamines Screen Negative, Urine Benzodiazepines Screen PositiveH, Urine Cocaine Screen Negative, Urine Marijuana (THC) Screen Negative 06/24/19 04:18: White Blood Count 18.2H, Red Blood Count 3.01L, Hemoglobin 9.1L, Hematocrit 28.8L, Mean Corpuscular Volume 96, Mean Corpuscular Hemoglobin 30.1, Mean Corpuscular Hemoglobin Concent 31.4L, Red Cell Distribution Width 20.4H, Platelet Count 196, Mean Platelet Volume 6.8, Neutrophils (%) (Auto) , Lymphocytes (%) (Auto) , Monocytes (%) (Auto) , Eosinophils (%) (Auto) , Basophils (%) (Auto) , Differential Total Cells Counted 100, Neutrophils % ( Manual) 84H, Lymphocytes % (Manual) 6L, Monocytes % (Manual) 9, Eosinophils % ( Manual) 1, Basophils % (Manual) 0, Band Neutrophils 0, Platelet Estimate Adequate, Platelet Morphology Normal, Polychromasia 1+, Hypochromasia 1+, Anisocytosis 3+, Prothrombin Time 20.0H, Prothromb Time International Ratio 1.9H , Sodium Level 158H, Potassium Level 2.5*L, Chloride Level 124H, Carbon Dioxide Level 24, Anion Gap 10, Blood Urea Nitrogen 27H, Creatinine 1.5H, Estimat Glomerular Filtration Rate 52.1, Glucose Level 119H, Uric Acid 4.7, Calcium Level 8.5, Phosphorus Level 2.1L, Magnesium Level 1.7L, Total Bilirubin 27.5H, Direct Bilirubin 23.1H, Gamma Glutamyl Transpeptidase 1052H, Aspartate Amino Transf (AST/SGOT) 132H, Alanine Aminotransferase (ALT/SGPT) 15, Alkaline Phosphatase 382H, Ammonia 72H, Total Protein 5.9L, Albumin 1.8L, Globulin 4.1, Albumin/Globulin Ratio 0.4L, Vitamin B12 Level 1705H, Folate 13.8 Height (Feet): 5 Height (Inches): 9.00 Weight (Pounds): 219 General Appearance: no apparent distress EENT: other - jaundiced Cardiovascular: tachycardia Abdomen: distended Arthur Lay MD Jun 24, 2019 09:06
[2019-06-24] MEDS: Spironolactone 25mg tab NG SCH (09:22)
--- NOTE | 2019-06-24 12:54 | Infectious Diseases Prog Note ---
Assessment/Plan Assessment/Plan IMPRESSION: 1. Sepsis. 2. Systemic inflammatory response syndrome. 3. Tachycardia. 4. Leukocytosis. 5. colitis, 6.Alcoholic pancreatitis, 7.Cirrhosis of liver, 8. Acute renal failure likely hepatorenal syndrome, 9.Anemia, 10. thrombocytopenia, 11.hypocalcemia, 12.hypomagnesemia, 13 hypokalemia, 14, Alcohol withdrawal. 15.Metabolic encephalopathy RECOMMENDATION: Continue Zosyn Blood culture are negative Poor prognosis Subjective ROS Limited/Unobtainable: Yes Constitutional: Denies: fever Gastrointestinal/Abdominal: Reports: diarrhea Neurologic: Reports: other - more laert, on restraint Allergies: Coded Allergies: No Known Allergies (Unverified , 06/20/19) Objective Vital Signs Last 24 Hour Vital Signs Date Time Temp Pulse Resp B/P (MAP) Pulse Ox O2 Delivery O2 Flow Rate FiO2 06/24/19 12:00 98.0 97 21 94/48 (63) 99 06/24/19 12:00 Nasal Cannula 3.0 06/24/19 11:00 83 23 96/58 (71) 99 06/24/19 10:49 87 18 100 Nasal Cannula 2.0 28 89 18 100 06/24/19 10:00 93 20 96/55 (69) 100 06/24/19 09:00 88 20 101/59 (73) 99 06/24/19 08:00 97.6 89 21 101/58 (72) 98 06/24/19 08:00 Nasal Cannula 3.0 06/24/19 08:00 87 06/24/19 07:00 90 21 110/62 (78) 100 06/24/19 06:50 89 16 100 Nasal Cannula 2.0 28 88 19 100 06/24/19 06:50 99 Nasal Cannula 2.0 28 06/24/19 06:00 85 22 113/63 (80) 100 06/24/19 05:00 93 30 100/56 (71) 96 06/24/19 04:00 96 06/24/19 04:00 Nasal Cannula 3.0 06/24/19 04:00 97.5 89 28 97/58 (71) 98 06/24/19 03:00 96 21 108/69 (82) 99 06/24/19 02:31 100 18 100 Nasal Cannula 2.0 28 97 17 98 06/24/19 02:00 92 30 101/59 (73) 96 06/24/19 01:00 94 29 113/64 (80) 97 06/24/19 00:00 97.5 93 18 105/64 (78) 99 06/24/19 00:00 92 06/24/19 00:00 Nasal Cannula 3.0 06/23/19 23:00 94 18 113/64 (80) 99 06/23/19 22:40 97 19 100 Nasal Cannula 2.0 28 95 18 99 06/23/19 22:00 94 20 110/63 (79) 99 06/23/19 21:00 96 29 109/72 (84) 97 06/23/19 20:00 90 06/23/19 20:00 Nasal Cannula 3.0 06/23/19 20:00 97.5 90 26 107/68 (81) 99 06/23/19 19:33 92 15 99 Nasal Cannula 2.0 28 84 17 96 06/23/19 19:33 96 Nasal Cannula 2.0 28 06/23/19 19:00 94 20 110/63 (79) 99 06/23/19 18:00 97 20 105/67 (80) 99 06/23/19 17:00 97.6 97 19 111/68 (82) 100 06/23/19 17:00 99 06/23/19 16:00 96 29 92/58 (69) 98 06/23/19 16:00 Nasal Cannula 3.0 06/23/19 15:13 105 22 100 Nasal Cannula 2.0 28 94 22 100 06/23/19 15:00 93 28 106/62 (77) 98 06/23/19 14:00 94 20 107/67 (80) 98 06/23/19 13:00 97 21 101/65 (77) 98 Height (Feet): 5 Height (Inches): 9.00 Weight (Pounds): 219 HEENT: mucous membranes moist, other - icterus Respiratory/Chest: lungs clear Cardiovascular: normal rate Abdomen: distended, other - ascites, small umbilicl hernia, NG & rectal tubes Extremities: other - edema Neurologic/Psychiatric: alert, responsive Microbiology Date/Time Source Procedure Growth Status 06/22/19 11:25 Blood Blood Culture - Preliminary NO GROWTH AFTER 24 HOURS Resulted 06/22/19 11:10 Blood Blood Culture - Preliminary NO GROWTH AFTER 24 HOURS Resulted Laboratory Tests Test 06/23/19 20:47 06/24/19 04:18 Urine Opiates Screen Negative (NEGATIVE) Urine Barbiturates Screen Negative (NEGATIVE) Phencyclidine (PCP) Screen Negative (NEGATIVE) Urine Amphetamines Screen Negative (NEGATIVE) Urine Benzodiazepines Screen Positive (NEGATIVE) H Urine Cocaine Screen Negative (NEGATIVE) Urine Marijuana (THC) Screen Negative (NEGATIVE) White Blood Count 18.2 K/UL (4.8-10.8) H Red Blood Count 3.01 M/UL (4.70-6.10) L Hemoglobin 9.1 G/DL (14.2-18.0) L Hematocrit 28.8 % (42.0-52.0) L Mean Corpuscular Volume 96 FL (80-99) Mean Corpuscular Hemoglobin 30.1 PG (27.0-31.0) Mean Corpuscular Hemoglobin Concent 31.4 G/DL (32.0-36.0) L Red Cell Distribution Width 20.4 % (11.6-14.8) H Platelet Count 196 K/UL (150-450) Mean Platelet Volume 6.8 FL (6.5-10.1) Neutrophils (%) (Auto) % (45.0-75.0) Lymphocytes (%) (Auto) % (20.0-45.0) Monocytes (%) (Auto) % (1.0-10.0) Eosinophils (%) (Auto) % (0.0-3.0) Basophils (%) (Auto) % (0.0-2.0) Differential Total Cells Counted 100 Neutrophils % (Manual) 84 % (45-75) H Lymphocytes % (Manual) 6 % (20-45) L Monocytes % (Manual) 9 % (1-10) Eosinophils % (Manual) 1 % (0-3) Basophils % (Manual) 0 % (0-2) Band Neutrophils 0 % (0-8) Platelet Estimate Adequate Platelet Morphology Normal Polychromasia 1+ Hypochromasia 1+ Anisocytosis 3+ Prothrombin Time 20.0 SEC (9.30-11.50) H Prothromb Time International Ratio 1.9 (0.9-1.1) H Sodium Level 158 MMOL/L (136-145) H Potassium Level 2.5 MMOL/L (3.5-5.1) *L Chloride Level 124 MMOL/L (98-107) H Carbon Dioxide Level 24 MMOL/L (21-32) Anion Gap 10 mmol/L (5-15) Blood Urea Nitrogen 27 mg/dL (7-18) H Creatinine 1.5 MG/DL (0.55-1.30) H Estimat Glomerular Filtration Rate 52.1 mL/min (>60) Glucose Level 119 MG/DL (74-106) H Uric Acid 4.7 MG/DL (2.6-7.2) Calcium Level 8.5 MG/DL (8.5-10.1) Phosphorus Level 2.1 MG/DL (2.5-4.9) L Magnesium Level 1.7 MG/DL (1.8-2.4) L Total Bilirubin 27.5 MG/DL (0.2-1.0) H Direct Bilirubin 23.1 MG/DL (0.0-0.3) H Gamma Glutamyl Transpeptidase 1052 U/L (5-85) H Aspartate Amino Transf (AST/SGOT) 132 U/L (15-37) H Alanine Aminotransferase (ALT/SGPT) 15 U/L (12-78) Alkaline Phosphatase 382 U/L (46-116) H Ammonia 72 umol/L (11-32) H Total Protein 5.9 G/DL (6.4-8.2) L Albumin 1.8 G/DL (3.4-5.0) L Globulin 4.1 g/dL Albumin/Globulin Ratio 0.4 (1.0-2.7) L Vitamin B12 Level 1705 PG/ML (193-986) H Folate 13.8 NG/ML (8.6-58.9) Current Medications Medications (Trade) Dose Ordered Sig/Gabriela Route PRN Reason Start Time Stop Time Status Last Admin Dose Admin Acetaminophen (Tylenol) 325 mg Q6H PRN NG Mild Pain/Temp > 100.5 06/22/19 10:00 07/22/19 09:59 06/23/19 08:47 Dextrose/ Electrolytes 1,000 ml @ 50 mls/hr Q20H IV 06/24/19 09:45 07/24/19 09:44 06/24/19 10:27 Folic Acid (Folate) 5 mg DAILY NG 06/23/19 09:00 07/20/19 12:44 06/24/19 08:18 Ipratropium Sunset (Atrovent) 500 mcg Q4H PRN HHN Shortness of Breath 06/21/19 15:00 06/26/19 14:59 Ipratropium Sunset (Atrovent) 500 mcg Q4HRT HHN 06/21/19 16:45 06/26/19 16:44 06/24/19 10:49 Lactulose (Cephulac) 30 gm FOUR TIMES A DAY NG 06/23/19 13:00 07/20/19 12:59 06/24/19 08:17 Lorazepam (Ativan 2mg/ml 1ml) 1 mg Q3H PRN IV For Anxiety 06/23/19 09:30 06/28/19 14:16 Pantoprazole (Protonix) 40 mg EVERY 12 HOURS IVP 06/21/19 21:00 07/20/19 20:59 06/24/19 08:17 Piperacillin Sod/ Tazobactam Sod 3.375 gm/Sodium Chloride 110 ml @ 27.5 mls/hr EVERY 8 HOURS IVPB 06/22/19 09:30 06/27/19 09:29 06/24/19 05:08 Potassium Phosphate 30 mm/ Sodium Chloride 285 ml @ 47.5 mls/hr ONCE ONCE IV 06/24/19 09:00 06/24/19 14:59 06/24/19 09:48 Potassium Chloride 100 ml @ 100 mls/hr Q1HR IVPB 06/24/19 09:00 06/24/19 18:59 UNV Rifaximin (Xifaxan) 550 mg EVERY 12 HOURS NG 06/22/19 21:00 06/29/19 20:59 06/24/19 08:17 Spironolactone (Aldactone) 25 mg DAILY NG 06/24/19 09:15 07/24/19 09:14 06/24/19 09:22 Thiamine HCl 100 mg/Dextrose 56 ml @ 112 mls/hr Q24H IVPB 06/21/19 15:00 07/20/19 14:59 06/23/19 15:56 Ilia Chakraborty MD Jun 24, 2019 12:54
[2019-06-24] MEDS ORDERED: SODIUM CHLORIDE IV SCH (14:00)
[2019-06-24] MEDS ORDERED: POTASSIUM CHLORIDE IV SCH (14:00)
[2019-06-24] MEDS ORDERED: NS 275ml ONE (15:05)
[2019-06-24] MEDS ORDERED: D5NS 1000ml IV ONE (15:05)
[2019-06-24] MEDS ORDERED: Tubing IV Secondary IV ONE ×2 (15:05→15:10)
[2019-06-24] MEDS: Thiamine HCl 100 MG in D5W 55 ML IVPB SCH (15:29)
--- NOTE | 2019-06-24 15:49 | Cardiac Electrophysiology PN ---
Assessment/Plan Assessment/Plan 1. Sinus tachycardia due to alcohol withdrawal and hepatic encephalopathy. No SVT or atrial fibrillation. EF 55% 2. Hepatic failure and cirrhosis. His total bilirubin is 17 . On Lactulose. 3. Hepatorenal syndrome. Creatinine is 2. Further evaluation by . 4. Hypokalemia. 5. Alcohol intoxication. Thiamine, folate, and Librium. 6. Hepatic encephalopathy DW RN Subjective Subjective in ICU in restraints and lethargic. Paracentesis still pending but consent obtained form the brother Objective Last 24 Hour Vital Signs Date Time Temp Pulse Resp B/P (MAP) Pulse Ox O2 Delivery O2 Flow Rate FiO2 06/24/19 15:03 85 18 100 Nasal Cannula 2.0 28 84 16 100 06/24/19 14:00 87 22 98/57 (71) 99 06/24/19 13:00 85 23 96/58 (71) 99 06/24/19 12:00 98.0 97 21 94/48 (63) 99 06/24/19 12:00 90 06/24/19 12:00 Nasal Cannula 3.0 06/24/19 11:00 83 23 96/58 (71) 99 06/24/19 10:49 87 18 100 Nasal Cannula 2.0 28 89 18 100 06/24/19 10:00 93 20 96/55 (69) 100 06/24/19 09:00 88 20 101/59 (73) 99 06/24/19 08:00 97.6 89 21 101/58 (72) 98 06/24/19 08:00 Nasal Cannula 3.0 06/24/19 08:00 87 06/24/19 07:00 90 21 110/62 (78) 100 06/24/19 06:50 89 16 100 Nasal Cannula 2.0 28 88 19 100 06/24/19 06:50 99 Nasal Cannula 2.0 28 06/24/19 06:00 85 22 113/63 (80) 100 06/24/19 05:00 93 30 100/56 (71) 96 06/24/19 04:00 96 06/24/19 04:00 Nasal Cannula 3.0 06/24/19 04:00 97.5 89 28 97/58 (71) 98 06/24/19 03:00 96 21 108/69 (82) 99 9/1/19 02:31 100 18 100 Nasal Cannula 2.0 28 97 17 98 06/24/19 02:00 92 30 101/59 (73) 96 06/24/19 01:00 94 29 113/64 (80) 97 06/24/19 00:00 97.5 93 18 105/64 (78) 99 06/24/19 00:00 92 06/24/19 00:00 Nasal Cannula 3.0 06/23/19 23:00 94 18 113/64 (80) 99 06/23/19 22:40 97 19 100 Nasal Cannula 2.0 28 95 18 99 06/23/19 22:00 94 20 110/63 (79) 99 06/23/19 21:00 96 29 109/72 (84) 97 06/23/19 20:00 90 06/23/19 20:00 Nasal Cannula 3.0 06/23/19 20:00 97.5 90 26 107/68 (81) 99 06/23/19 19:33 92 15 99 Nasal Cannula 2.0 28 84 17 96 06/23/19 19:33 96 Nasal Cannula 2.0 28 06/23/19 19:00 94 20 110/63 (79) 99 06/23/19 18:00 97 20 105/67 (80) 99 06/23/19 17:00 97.6 97 19 111/68 (82) 100 06/23/19 17:00 99 06/23/19 16:00 96 29 92/58 (69) 98 06/23/19 16:00 Nasal Cannula 3.0 Intake and Output 06/23/19 06/24/19 18:59 06:59 Intake Total 2282.665 ml 723.2 ml Output Total 2515 ml 2530 ml Balance -232.335 ml -1806.8 ml Free Water 100 ml IV Total 2092.665 ml 493.2 ml Tube Feeding 90 ml 230 ml Output Urine Total 1515 ml 930 ml Stool Total 1000 ml 1600 ml # Bowel Movements 1 Laboratory Tests Test 06/23/19 20:47 06/24/19 04:18 Urine Opiates Screen Negative (NEGATIVE) Urine Barbiturates Screen Negative (NEGATIVE) Phencyclidine (PCP) Screen Negative (NEGATIVE) Urine Amphetamines Screen Negative (NEGATIVE) Urine Benzodiazepines Screen Positive (NEGATIVE) H Urine Cocaine Screen Negative (NEGATIVE) Urine Marijuana (THC) Screen Negative (NEGATIVE) White Blood Count 18.2 K/UL (4.8-10.8) H Red Blood Count 3.01 M/UL (4.70-6.10) L Hemoglobin 9.1 G/DL (14.2-18.0) L Hematocrit 28.8 % (42.0-52.0) L Mean Corpuscular Volume 96 FL (80-99) Mean Corpuscular Hemoglobin 30.1 PG (27.0-31.0) Mean Corpuscular Hemoglobin Concent 31.4 G/DL (32.0-36.0) L Red Cell Distribution Width 20.4 % (11.6-14.8) H Platelet Count 196 K/UL (150-450) Mean Platelet Volume 6.8 FL (6.5-10.1) Neutrophils (%) (Auto) % (45.0-75.0) Lymphocytes (%) (Auto) % (20.0-45.0) Monocytes (%) (Auto) % (1.0-10.0) Eosinophils (%) (Auto) % (0.0-3.0) Basophils (%) (Auto) % (0.0-2.0) Differential Total Cells Counted 100 Neutrophils % (Manual) 84 % (45-75) H Lymphocytes % (Manual) 6 % (20-45) L Monocytes % (Manual) 9 % (1-10) Eosinophils % (Manual) 1 % (0-3) Basophils % (Manual) 0 % (0-2) Band Neutrophils 0 % (0-8) Platelet Estimate Adequate Platelet Morphology Normal Polychromasia 1+ Hypochromasia 1+ Anisocytosis 3+ Prothrombin Time 20.0 SEC (9.30-11.50) H Prothromb Time International Ratio 1.9 (0.9-1.1) H Sodium Level 158 MMOL/L (136-145) H Potassium Level 2.5 MMOL/L (3.5-5.1) *L Chloride Level 124 MMOL/L (98-107) H Carbon Dioxide Level 24 MMOL/L (21-32) Anion Gap 10 mmol/L (5-15) Blood Urea Nitrogen 27 mg/dL (7-18) H Creatinine 1.5 MG/DL (0.55-1.30) H Estimat Glomerular Filtration Rate 52.1 mL/min (>60) Glucose Level 119 MG/DL (74-106) H Uric Acid 4.7 MG/DL (2.6-7.2) Calcium Level 8.5 MG/DL (8.5-10.1) Phosphorus Level 2.1 MG/DL (2.5-4.9) L Magnesium Level 1.7 MG/DL (1.8-2.4) L Total Bilirubin 27.5 MG/DL (0.2-1.0) H Direct Bilirubin 23.1 MG/DL (0.0-0.3) H Gamma Glutamyl Transpeptidase 1052 U/L (5-85) H Aspartate Amino Transf (AST/SGOT) 132 U/L (15-37) H Alanine Aminotransferase (ALT/SGPT) 15 U/L (12-78) Alkaline Phosphatase 382 U/L (46-116) H Ammonia 72 umol/L (11-32) H Total Protein 5.9 G/DL (6.4-8.2) L Albumin 1.8 G/DL (3.4-5.0) L Globulin 4.1 g/dL Albumin/Globulin Ratio 0.4 (1.0-2.7) L Vitamin B12 Level 1705 PG/ML (193-986) H Folate 13.8 NG/ML (8.6-58.9) Microbiology Date/Time Source Procedure Growth Status 06/22/19 11:25 Blood Blood Culture - Preliminary NO GROWTH AFTER 24 HOURS Resulted 06/22/19 11:10 Blood Blood Culture - Preliminary NO GROWTH AFTER 24 HOURS Resulted Objective HEAD AND NECK: No JVD. Sclera is jaundiced. LUNGS: Decreased breath sounds. CARDIOVASCULAR: Tachycardic. S1 and S2 with no gallop. ABDOMEN: Distended with ascites. EXTREMITIES: 2+ pitting edema. Felice Smith MD Jun 24, 2019 15:49
--- NOTE | 2019-06-24 17:35 | Pulmonolgy Critical Care Note ---
Critical Care - Asmt/Plan Assessment/Plan: Pulmonary CCM Consultation HPI This is a 39-year-old male who is an alcoholic with significant fatty liver on abdominal CT and alcoholic hepatitis, DF 16, not candidate for steroids currently per GI. He has been drinking heavily for 3 months straight. He stopped drinking [employer]. Noted to have Hepatic Encephalopathy and Hepatorenal Syndrome. No bleeding. No nausea no vomiting. Nothing made it better. Movement or exertion makes it worse. Noted to have significant hypokalemia and alkalosis, evidence of sepsis, source unclear - some bacteria in urine, mid ascites - possible SBP, dilated Gallbladder More awake today, has NGT and on Lactulose Allergies: No Known Allergies Past Medical History: Alcohol abuse All Other Systems: negative except mentioned in HPI Physical Exam Vital Signs Noted General Appearance: Jaundiced, ill appearing, less somnolent Head: normocephalic, atraumatic Eyes: bilateral eye PERRL, bilateral eye EOMI, bilateral eye scleral icterus ENT: moist mm Neck: no masses, no LN Respiratory: chest non-tender, lungs clear, normal breath sounds Cardiovascular: regular rate, rhythm, Normal HS1, HS2, no murmur, tachycardia Gastrointestinal: Obese, hepatomegaly, some tenderness RUQ, normal bowel sounds , no mass, no rebound Musculoskeletal: moves all limbs Neurologic: responds to commands, drowsy Skin: jaundiced, moderate edema Impression: Acute alcoholic intoxication Severe Sepsis Alcoholic Hepatitis Possible Cirrhosis Metabolic and respiratory alkalosis Possible Portal Hypertension Hepatorenal syndrome Pancreatitis, alcoholic, acute Anemia Plan ICU management NPO except meds IV antibiotics per ID Aspiration precautions GI/Renal following IVF PRN Transfuse PRN Thiamine Monitor labs K supplementation Adjust FIO2 - sats 90-96% Labs: noted EKG: Rate: tachycardiac Rhythm: NSR ST Segments: other - NSST changes Chest X-Ray: hypoventilatory exam, no consolidation, no effusion, no pneumothorax, no acute cardiopulmonary disease CT abdomen pelvis: Severely enlarged liver and fatty liver. Mild ascites. Critical Care - Objective Last 24 Hour Vital Signs Date Time Temp Pulse Resp B/P (MAP) Pulse Ox O2 Delivery O2 Flow Rate FiO2 06/24/19 17:00 78 24 94/55 (68) 98 06/24/19 16:00 Nasal Cannula 3.0 06/24/19 16:00 83 06/24/19 16:00 97.8 79 21 102/61 (75) 98 9/1/19 15:03 85 18 100 Nasal Cannula 2.0 28 84 16 100 06/24/19 15:00 82 22 106/65 (79) 100 06/24/19 14:00 87 22 98/57 (71) 99 06/24/19 13:00 85 23 96/58 (71) 99 06/24/19 12:00 98.0 97 21 94/48 (63) 99 06/24/19 12:00 90 06/24/19 12:00 Nasal Cannula 3.0 06/24/19 11:00 83 23 96/58 (71) 99 06/24/19 10:49 87 18 100 Nasal Cannula 2.0 28 89 18 100 06/24/19 10:00 93 20 96/55 (69) 100 06/24/19 09:00 88 20 101/59 (73) 99 06/24/19 08:00 97.6 89 21 101/58 (72) 98 06/24/19 08:00 Nasal Cannula 3.0 06/24/19 08:00 87 06/24/19 07:00 90 21 110/62 (78) 100 06/24/19 06:50 89 16 100 Nasal Cannula 2.0 28 88 19 100 06/24/19 06:50 99 Nasal Cannula 2.0 28 06/24/19 06:00 85 22 113/63 (80) 100 06/24/19 05:00 93 30 100/56 (71) 96 06/24/19 04:00 96 06/24/19 04:00 Nasal Cannula 3.0 06/24/19 04:00 97.5 89 28 97/58 (71) 98 06/24/19 03:00 96 21 108/69 (82) 99 06/24/19 02:31 100 18 100 Nasal Cannula 2.0 28 97 17 98 06/24/19 02:00 92 30 101/59 (73) 96 06/24/19 01:00 94 29 113/64 (80) 97 06/24/19 00:00 97.5 93 18 105/64 (78) 99 06/24/19 00:00 92 06/24/19 00:00 Nasal Cannula 3.0 06/23/19 23:00 94 18 113/64 (80) 99 06/23/19 22:40 97 19 100 Nasal Cannula 2.0 28 95 18 99 06/23/19 22:00 94 20 110/63 (79) 99 06/23/19 21:00 96 29 109/72 (84) 97 06/23/19 20:00 90 06/23/19 20:00 Nasal Cannula 3.0 06/23/19 20:00 97.5 90 26 107/68 (81) 99 06/23/19 19:33 92 15 99 Nasal Cannula 2.0 28 84 17 96 06/23/19 19:33 96 Nasal Cannula 2.0 28 06/23/19 19:00 94 20 110/63 (79) 99 06/23/19 18:00 97 20 105/67 (80) 99 Micro: Microbiology Date/Time Source Procedure Growth Status 06/22/19 11:25 Blood Blood Culture - Preliminary NO GROWTH AFTER 24 HOURS Resulted 06/22/19 11:10 Blood Blood Culture - Preliminary NO GROWTH AFTER 24 HOURS Resulted Critical Care - Subjective ROS Limited/Unobtainable: No Condition: improving EKG Rhythm: Sinus Rhythm FI02: 28 Sputum Amount: Scant Tube Feeding Amount: 40 I&O: Intake and Output 06/23/19 06/24/19 18:59 06:59 Intake Total 2282.665 ml 723.2 ml Output Total 2515 ml 2530 ml Balance -232.335 ml -1806.8 ml Free Water 100 ml IV Total 2092.665 ml 493.2 ml Tube Feeding 90 ml 230 ml Output Urine Total 1515 ml 930 ml Stool Total 1000 ml 1600 ml # Bowel Movements 1 Quang Domingo MD Jun 24, 2019 17:35
--- NOTE | 2019-06-24 20:26 | General Progress Note ---
Assessment/Plan Problem List: (1) Anemia ICD Codes: D64.9 - Anemia, unspecified SNOMED: 728310470 Qualifiers: Qualified Codes: D64.9 - Anemia, unspecified (2) Acute alcoholic intoxication ICD Codes: F10.929 - Alcohol use, unspecified with intoxication, unspecified SNOMED: 48310217, 5218816 Qualifiers: Qualified Codes: F10.920 - Alcohol use, unspecified with intoxication, uncomplicated (3) End-stage liver disease ICD Codes: K72.90 - Hepatic failure, unspecified without coma SNOMED: 567658382 (4) Hepatorenal syndrome ICD Codes: K76.7 - Hepatorenal syndrome SNOMED: 48557067, 9732285 (5) Pancreatitis, alcoholic, acute ICD Codes: K85.20 - Alcohol induced acute pancreatitis without necrosis or infection SNOMED: 245377550, 4479137 Qualifiers: Qualified Codes: K85.20 - Alcohol induced acute pancreatitis without necrosis or infection (6) Respiratory failure ICD Codes: J96.90 - Respiratory failure, unspecified, unspecified whether with hypoxia or hypercapnia SNOMED: 842363028 Status: not improved, unchanged, deteriorating Assessment/Plan: respiratory failure etoh cirrhosis jaundice afebrile poor prognosis ams hepatic encephalopathy azotemia stable lyte abnormality ammomia is improving anasarca lethargic Subjective ROS Limited/Unobtainable: Yes Allergies: Coded Allergies: No Known Allergies (Unverified , 06/20/19) Objective Last 24 Hour Vital Signs Date Time Temp Pulse Resp B/P (MAP) Pulse Ox O2 Delivery O2 Flow Rate FiO2 06/24/19 19:18 96 24 99 Nasal Cannula 2.0 28 94 24 99 06/24/19 19:17 99 Nasal Cannula 2.0 28 06/24/19 19:00 93 24 98/56 (70) 99 06/24/19 18:00 92 24 104/66 (79) 98 06/24/19 17:00 78 24 94/55 (68) 98 06/24/19 16:00 Nasal Cannula 3.0 06/24/19 16:00 83 06/24/19 16:00 97.8 79 21 102/61 (75) 98 06/24/19 15:03 85 18 100 Nasal Cannula 2.0 28 84 16 100 06/24/19 15:00 82 22 106/65 (79) 100 06/24/19 14:00 87 22 98/57 (71) 99 06/24/19 13:00 85 23 96/58 (71) 99 06/24/19 12:00 98.0 97 21 94/48 (63) 99 06/24/19 12:00 90 06/24/19 12:00 Nasal Cannula 3.0 06/24/19 11:00 83 23 96/58 (71) 99 06/24/19 10:49 87 18 100 Nasal Cannula 2.0 28 89 18 100 06/24/19 10:00 93 20 96/55 (69) 100 06/24/19 09:00 88 20 101/59 (73) 99 06/24/19 08:00 97.6 89 21 101/58 (72) 98 06/24/19 08:00 Nasal Cannula 3.0 06/24/19 08:00 87 06/24/19 07:00 90 21 110/62 (78) 100 06/24/19 06:50 89 16 100 Nasal Cannula 2.0 28 88 19 100 06/24/19 06:50 99 Nasal Cannula 2.0 28 06/24/19 06:00 85 22 113/63 (80) 100 06/24/19 05:00 93 30 100/56 (71) 96 06/24/19 04:00 96 06/24/19 04:00 Nasal Cannula 3.0 06/24/19 04:00 97.5 89 28 97/58 (71) 98 06/24/19 03:00 96 21 108/69 (82) 99 06/24/19 02:31 100 18 100 Nasal Cannula 2.0 28 97 17 98 06/24/19 02:00 92 30 101/59 (73) 96 06/24/19 01:00 94 29 113/64 (80) 97 06/24/19 00:00 97.5 93 18 105/64 (78) 99 06/24/19 00:00 92 06/24/19 00:00 Nasal Cannula 3.0 06/23/19 23:00 94 18 113/64 (80) 99 06/23/19 22:40 97 19 100 Nasal Cannula 2.0 28 95 18 99 06/23/19 22:00 94 20 110/63 (79) 99 06/23/19 21:00 96 29 109/72 (84) 97 Intake and Output 06/23/19 06/24/19 19:00 07:00 Intake Total 2265.165 ml 760.7 ml Output Total 2595 ml 2475 ml Balance -329.835 ml -1714.3 ml Free Water 100 ml IV Total 2065.165 ml 520.7 ml Tube Feeding 100 ml 240 ml Output Urine Total 1595 ml 875 ml Stool Total 1000 ml 1600 ml # Bowel Movements 1 Laboratory Tests 06/23/19 20:47: Urine Opiates Screen Negative, Urine Barbiturates Screen Negative, Phencyclidine (PCP) Screen Negative, Urine Amphetamines Screen Negative, Urine Benzodiazepines Screen PositiveH, Urine Cocaine Screen Negative, Urine Marijuana (THC) Screen Negative 06/24/19 04:18: White Blood Count 18.2H, Red Blood Count 3.01L, Hemoglobin 9.1L, Hematocrit 28.8L, Mean Corpuscular Volume 96, Mean Corpuscular Hemoglobin 30.1, Mean Corpuscular Hemoglobin Concent 31.4L, Red Cell Distribution Width 20.4H, Platelet Count 196, Mean Platelet Volume 6.8, Neutrophils (%) (Auto) , Lymphocytes (%) (Auto) , Monocytes (%) (Auto) , Eosinophils (%) (Auto) , Basophils (%) (Auto) , Differential Total Cells Counted 100, Neutrophils % ( Manual) 84H, Lymphocytes % (Manual) 6L, Monocytes % (Manual) 9, Eosinophils % ( Manual) 1, Basophils % (Manual) 0, Band Neutrophils 0, Platelet Estimate Adequate, Platelet Morphology Normal, Polychromasia 1+, Hypochromasia 1+, Anisocytosis 3+, Prothrombin Time 20.0H, Prothromb Time International Ratio 1.9H , Sodium Level 158H, Potassium Level 2.5*L, Chloride Level 124H, Carbon Dioxide Level 24, Anion Gap 10, Blood Urea Nitrogen 27H, Creatinine 1.5H, Estimat Glomerular Filtration Rate 52.1, Glucose Level 119H, Uric Acid 4.7, Calcium Level 8.5, Phosphorus Level 2.1L, Magnesium Level 1.7L, Total Bilirubin 27.5H, Direct Bilirubin 23.1H, Gamma Glutamyl Transpeptidase 1052H, Aspartate Amino Transf (AST/SGOT) 132H, Alanine Aminotransferase (ALT/SGPT) 15, Alkaline Phosphatase 382H, Ammonia 72H, Total Protein 5.9L, Albumin 1.8L, Globulin 4.1, Albumin/Globulin Ratio 0.4L, Vitamin B12 Level 1705H, Folate 13.8 06/24/19 19:00: Potassium Level [Pending] Height (Feet): 5 Height (Inches): 9.00 Weight (Pounds): 219 Neck: supple Cardiovascular: normal rate Respiratory/Chest: lungs clear Abdomen: soft Deejay Saldaña MD Jun 24, 2019 20:26
[2019-06-25] VITALS (22 sets, daily range): BP systolic 86–127; BP diastolic 46–95
[2019-06-25] MEDS: Acetaminophen 650mg/20.3ml NG PRN (02:51)
[2019-06-25] MEDS: Ipratropium 0.02% Inh Soln 2.5ml UD HHN SCH ×6 (03:23→23:47)
[2019-06-25 05:22] LABS: INR 1.6 (0.9-1.1)
[2019-06-25] MEDS: Piperacillin/Tazobactam 3.375 GM in NS 110 ML IVPB SCH ×3 (05:22→21:24)
[2019-06-25 05:28] LABS: BASOPHILS % (AUTO) 1.5 % (0.0-2.0); EOSINOPHILS % (AUTO) 3.5 % (0.0-3.0); HEMATOCRIT 29.3 % (42.0-52.0); LYMPHOCYTES % (AUTO) 9.9 % (20.0-45.0); MEAN CORPUSCULAR VOLUME 97 FL (80-99); MONOCYTES % (AUTO) 12.4 % (1.0-10.0); NEUTROPHILS % (AUTO) 72.8 % (45.0-75.0); PLATELET COUNT 216 K/UL (150-450); RED BLOOD COUNT 3.01 M/UL (4.70-6.10); RED CELL DISTRIBUTION WIDTH 22.1 % (11.6-14.8); WHITE BLOOD COUNT 17.8 K/UL (4.8-10.8)
[2019-06-25 06:17] LABS: ALANINE AMINOTRANSFERASE 16 U/L (12-78); ALBUMIN 1.7 G/DL (3.4-5.0); ALBUMIN/GLOBULIN RATIO 0.5 (1.0-2.7); ALKALINE PHOSPHATASE 352 U/L (46-116); ANION GAP 14 mmol/L (5-15); ASPARTATE AMINO TRANSFERASE 151 U/L (15-37); BILIRUBIN,DIRECT 22.9 MG/DL (0.0-0.3); BILIRUBIN,TOTAL 27.6 MG/DL (0.2-1.0); BLOOD UREA NITROGEN 26 mg/dL (7-18); CALCIUM 8.5 MG/DL (8.5-10.1); CARBON DIOXIDE 18 MMOL/L (21-32); CHLORIDE 134 MMOL/L (98-107); CREATININE 1.4 MG/DL (0.55-1.30); POTASSIUM 3.7 MMOL/L (3.5-5.1)
[2019-06-25 06:18] LABS: PHOSPHORUS 0.7 MG/DL (2.5-4.9)
[2019-06-25 06:33] LABS: SODIUM 166 MMOL/L (136-145)
[2019-06-25] MEDS ORDERED: Potassium Phosphate 30 MM in NS 275 ML IVPB ONE (09:00)
[2019-06-25] MEDS: LORazepam Inj 2mg/ml 1ml IV PRN ×2 (09:05→20:26)
[2019-06-25] MEDS: Spironolactone 25mg tab NG SCH (09:06)
[2019-06-25] MEDS: Pantoprazole Inj IVP SCH ×2 (09:06→20:26)
[2019-06-25] MEDS: Lactulose 20gm/30ml UDC NG SCH ×4 (09:11→20:27)
--- NOTE | 2019-06-25 10:01 | Nephrology Progress Note ---
Assessment/Plan Problem List: (1) End-stage liver disease (2) Hepatorenal syndrome (3) Pancreatitis, alcoholic, acute (4) Acute alcoholic intoxication (5) Anemia (6) Respiratory failure Assessment Acute alcoholic intoxication End-stage liver disease Hepatorenal syndrome Pancreatitis, alcoholic, acute Anemia Plan k and Mag and phos supplement as needed has keith has RT (rectal tube) change IV to D5w slow IV Fluids Correct lytes IV protonix lactulose Folate and Thiamin per GI transfuse per consultants Subjective ROS Limited/Unobtainable: Yes Objective Objective Last 24 Hour Vital Signs Date Time Temp Pulse Resp B/P (MAP) Pulse Ox O2 Delivery O2 Flow Rate FiO2 06/25/19 08:00 96.1 87 27 90/58 (69) 97 06/25/19 08:00 Nasal Cannula 2.0 06/25/19 07:48 95 Nasal Cannula 2.0 28 06/25/19 07:48 85 20 100 Nasal Cannula 2.0 28 80 18 95 06/25/19 07:00 84 30 91/60 (70) 98 06/25/19 04:00 Nasal Cannula 2.0 06/25/19 04:00 116 06/25/19 04:00 98.9 107 33 91/70 (77) 97 06/25/19 03:23 112 35 100 Nasal Cannula 2.0 28 111 30 98 06/25/19 03:21 98.9 06/25/19 03:00 107 36 99/58 (72) 100 06/25/19 02:00 107 39 99/58 (72) 98 06/25/19 01:00 110 36 91/50 (64) 98 06/25/19 00:00 Nasal Cannula 2.0 06/25/19 00:00 110 06/25/19 00:00 99.0 111 36 97/54 (68) 98 06/24/19 23:35 106 36 100 Nasal Cannula 2.0 28 104 35 100 06/24/19 23:00 107 36 99/58 (72) 98 06/24/19 22:00 105 36 99/61 (74) 98 06/24/19 21:00 99 24 98/58 (71) 98 06/24/19 20:00 95 06/24/19 20:00 99 31 102/69 (80) 97 06/24/19 20:00 Nasal Cannula 2.0 06/24/19 19:18 96 24 99 Nasal Cannula 2.0 28 94 24 99 06/24/19 19:17 99 Nasal Cannula 2.0 28 06/24/19 19:00 93 24 98/56 (70) 99 06/24/19 18:00 92 24 104/66 (79) 98 06/24/19 17:00 78 24 94/55 (68) 98 06/24/19 16:00 Nasal Cannula 3.0 06/24/19 16:00 83 06/24/19 16:00 97.8 79 21 102/61 (75) 98 06/24/19 15:03 85 18 100 Nasal Cannula 2.0 28 84 16 100 06/24/19 15:00 82 22 106/65 (79) 100 06/24/19 14:00 87 22 98/57 (71) 99 06/24/19 13:00 85 23 96/58 (71) 99 06/24/19 12:00 98.0 97 21 94/48 (63) 99 06/24/19 12:00 90 06/24/19 12:00 Nasal Cannula 3.0 06/24/19 11:00 83 23 96/58 (71) 99 06/24/19 10:49 87 18 100 Nasal Cannula 2.0 28 89 18 100 Intake and Output 06/24/19 06/25/19 19:00 07:00 Intake Total 2698.5 ml 2065.0 ml Output Total 2125 ml 1790 ml Balance 573.5 ml 275.0 ml Free Water 200 ml 100 ml IV Total 2028.5 ml 1305.0 ml Tube Feeding 470 ml 660 ml Output Urine Total 725 ml 490 ml Stool Total 1400 ml 1300 ml Laboratory Tests 06/24/19 19:00: Potassium Level 3.5 06/25/19 04:15: Potassium Level 3.7, White Blood Count 17.8H, Red Blood Count 3.01L, Hemoglobin 9.0L, Hematocrit 29.3L, Mean Corpuscular Volume 97, Mean Corpuscular Hemoglobin 29.9, Mean Corpuscular Hemoglobin Concent 30.7L, Red Cell Distribution Width 22.1H, Platelet Count 216, Mean Platelet Volume 6.1L, Neutrophils (%) (Auto) 72.8, Lymphocytes (%) (Auto) 9.9L, Monocytes (%) (Auto) 12.4H, Eosinophils (%) ( Auto) 3.5H, Basophils (%) (Auto) 1.5, Prothrombin Time 17.1H, Prothromb Time International Ratio 1.6H, Sodium Level 166*H, Chloride Level 134H, Carbon Dioxide Level 18L, Anion Gap 14, Blood Urea Nitrogen 26H, Creatinine 1.4H, Estimat Glomerular Filtration Rate 56.4, Glucose Level 158H, Uric Acid 3.5, Calcium Level 8.5, Phosphorus Level 0.7*L, Magnesium Level 2.1, Total Bilirubin 27.6H, Direct Bilirubin 22.9H, Aspartate Amino Transf (AST/SGOT) 151H, Alanine Aminotransferase (ALT/SGPT) 16, Alkaline Phosphatase 352H, C-Reactive Protein, Quantitative 5.9H, Pro-B-Type Natriuretic Peptide 146H, Total Protein 5.4L, Albumin 1.7L, Globulin 3.7, Albumin/Globulin Ratio 0.5L 06/25/19 07:55: Ammonia 66H Height (Feet): 5 Height (Inches): 9.00 Weight (Pounds): 219 General Appearance: no apparent distress, confused EENT: other - jaundiced Respiratory/Chest: decreased breath sounds Abdomen: distended Arthur Lay MD Jun 25, 2019 10:01
--- NOTE | 2019-06-25 10:43 | Infectious Diseases Prog Note ---
Assessment/Plan Assessment/Plan IMPRESSION: 1. Sepsis. 2. Systemic inflammatory response syndrome. 3. Tachycardia. 4. Leukocytosis. 5. colitis, 6.Alcoholic pancreatitis, 7.Cirrhosis of liver, 8. Acute renal failure likely hepatorenal syndrome, 9.Anemia, 10. thrombocytopenia, 11.hypocalcemia, 12.hypomagnesemia, corrected 13 hypokalemia, corrected 14, Alcohol withdrawal. 15.Metabolic encephalopathy 16. Hypophosphatemia RECOMMENDATION: Continue Zosyn Blood culture are negative Poor prognosis Subjective ROS Limited/Unobtainable: Yes Constitutional: Denies: fever Neurologic: Reports: confusion, other - on restraint Allergies: Coded Allergies: No Known Allergies (Unverified , 06/20/19) Objective Vital Signs Last 24 Hour Vital Signs Date Time Temp Pulse Resp B/P (MAP) Pulse Ox O2 Delivery O2 Flow Rate FiO2 06/25/19 08:00 96.1 87 27 90/58 (69) 97 06/25/19 08:00 Nasal Cannula 2.0 06/25/19 07:48 95 Nasal Cannula 2.0 28 06/25/19 07:48 85 20 100 Nasal Cannula 2.0 28 80 18 95 06/25/19 07:00 84 30 91/60 (70) 98 06/25/19 04:00 Nasal Cannula 2.0 06/25/19 04:00 116 06/25/19 04:00 98.9 107 33 91/70 (77) 97 06/25/19 03:23 112 35 100 Nasal Cannula 2.0 28 111 30 98 06/25/19 03:21 98.9 06/25/19 03:00 107 36 99/58 (72) 100 06/25/19 02:00 107 39 99/58 (72) 98 06/25/19 01:00 110 36 91/50 (64) 98 06/25/19 00:00 Nasal Cannula 2.0 06/25/19 00:00 110 06/25/19 00:00 99.0 111 36 97/54 (68) 98 06/24/19 23:35 106 36 100 Nasal Cannula 2.0 28 104 35 100 06/24/19 23:00 107 36 99/58 (72) 98 06/24/19 22:00 105 36 99/61 (74) 98 06/24/19 21:00 99 24 98/58 (71) 98 06/24/19 20:00 95 06/24/19 20:00 99 31 102/69 (80) 97 06/24/19 20:00 Nasal Cannula 2.0 06/24/19 19:18 96 24 99 Nasal Cannula 2.0 28 94 24 99 06/24/19 19:17 99 Nasal Cannula 2.0 28 06/24/19 19:00 93 24 98/56 (70) 99 06/24/19 18:00 92 24 104/66 (79) 98 06/24/19 17:00 78 24 94/55 (68) 98 06/24/19 16:00 Nasal Cannula 3.0 06/24/19 16:00 83 06/24/19 16:00 97.8 79 21 102/61 (75) 98 06/24/19 15:03 85 18 100 Nasal Cannula 2.0 28 84 16 100 06/24/19 15:00 82 22 106/65 (79) 100 06/24/19 14:00 87 22 98/57 (71) 99 06/24/19 13:00 85 23 96/58 (71) 99 06/24/19 12:00 98.0 97 21 94/48 (63) 99 06/24/19 12:00 90 06/24/19 12:00 Nasal Cannula 3.0 06/24/19 11:00 83 23 96/58 (71) 99 06/24/19 10:49 87 18 100 Nasal Cannula 2.0 28 89 18 100 Height (Feet): 5 Height (Inches): 9.00 Weight (Pounds): 219 HEENT: mucous membranes moist, other - icterus Respiratory/Chest: lungs clear Cardiovascular: normal rate Abdomen: distended, other - Ascites,NG tube & rectal tubes Extremities: other - leg edema Neurologic/Psychiatric: disoriented Microbiology Date/Time Source Procedure Growth Status 06/22/19 11:25 Blood Blood Culture - Preliminary NO GROWTH AFTER 48 HOURS Resulted 06/22/19 11:10 Blood Blood Culture - Preliminary NO GROWTH AFTER 48 HOURS Resulted Laboratory Tests Test 06/24/19 19:00 06/25/19 04:15 06/25/19 07:55 Potassium Level 3.5 MMOL/L (3.5-5.1) 3.7 MMOL/L (3.5-5.1) White Blood Count 17.8 K/UL (4.8-10.8) H Red Blood Count 3.01 M/UL (4.70-6.10) L Hemoglobin 9.0 G/DL (14.2-18.0) L Hematocrit 29.3 % (42.0-52.0) L Mean Corpuscular Volume 97 FL (80-99) Mean Corpuscular Hemoglobin 29.9 PG (27.0-31.0) Mean Corpuscular Hemoglobin Concent 30.7 G/DL (32.0-36.0) L Red Cell Distribution Width 22.1 % (11.6-14.8) H Platelet Count 216 K/UL (150-450) Mean Platelet Volume 6.1 FL (6.5-10.1) L Neutrophils (%) (Auto) 72.8 % (45.0-75.0) Lymphocytes (%) (Auto) 9.9 % (20.0-45.0) L Monocytes (%) (Auto) 12.4 % (1.0-10.0) H Eosinophils (%) (Auto) 3.5 % (0.0-3.0) H Basophils (%) (Auto) 1.5 % (0.0-2.0) Prothrombin Time 17.1 SEC (9.30-11.50) H Prothromb Time International Ratio 1.6 (0.9-1.1) H Sodium Level 166 MMOL/L (136-145) *H Chloride Level 134 MMOL/L (98-107) H Carbon Dioxide Level 18 MMOL/L (21-32) L Anion Gap 14 mmol/L (5-15) Blood Urea Nitrogen 26 mg/dL (7-18) H Creatinine 1.4 MG/DL (0.55-1.30) H Estimat Glomerular Filtration Rate 56.4 mL/min (>60) Glucose Level 158 MG/DL (74-106) H Uric Acid 3.5 MG/DL (2.6-7.2) Calcium Level 8.5 MG/DL (8.5-10.1) Phosphorus Level 0.7 MG/DL (2.5-4.9) *L Magnesium Level 2.1 MG/DL (1.8-2.4) Total Bilirubin 27.6 MG/DL (0.2-1.0) H Direct Bilirubin 22.9 MG/DL (0.0-0.3) H Aspartate Amino Transf (AST/SGOT) 151 U/L (15-37) H Alanine Aminotransferase (ALT/SGPT) 16 U/L (12-78) Alkaline Phosphatase 352 U/L (46-116) H C-Reactive Protein, Quantitative 5.9 mg/dL (0.00-0.90) H Pro-B-Type Natriuretic Peptide 146 pg/mL (0-125) H Total Protein 5.4 G/DL (6.4-8.2) L Albumin 1.7 G/DL (3.4-5.0) L Globulin 3.7 g/dL Albumin/Globulin Ratio 0.5 (1.0-2.7) L Ammonia 66 umol/L (11-32) H Current Medications Medications (Trade) Dose Ordered Sig/Gabriela Route PRN Reason Start Time Stop Time Status Last Admin Dose Admin Acetaminophen (Tylenol) 325 mg Q6H PRN NG Mild Pain/Temp > 100.5 06/22/19 10:00 07/22/19 09:59 06/25/19 02:51 Dextrose 1,000 ml @ 75 mls/hr [id number] IV 06/25/19 09:00 07/25/19 08:59 06/25/19 09:36 Folic Acid (Folate) 5 mg DAILY NG 06/23/19 09:00 07/20/19 12:44 06/25/19 09:06 Ipratropium [place] (Atrovent) 500 mcg Q4H PRN HHN Shortness of Breath 06/21/19 15:00 06/26/19 14:59 Ipratropium [place] (Atrovent) 500 mcg Q4HRT HHN 06/21/19 16:45 06/26/19 16:44 06/25/19 07:51 Lactulose (Cephulac) 30 gm FOUR TIMES A DAY NG 06/23/19 13:00 07/20/19 12:59 06/25/19 09:11 Lorazepam (Ativan 2mg/ml 1ml) 1 mg Q3H PRN IV For Anxiety 06/23/19 09:30 06/28/19 14:16 06/25/19 09:05 Pantoprazole (Protonix) 40 mg EVERY 12 HOURS IVP 06/21/19 21:00 07/20/19 20:59 06/25/19 09:06 Piperacillin Sod/ Tazobactam Sod 3.375 gm/Sodium Chloride 110 ml @ 27.5 mls/hr EVERY 8 HOURS IVPB 06/22/19 09:30 06/27/19 09:29 06/25/19 05:22 Potassium Phosphate 30 mm/ Sodium Chloride 285 ml @ 47.5 mls/hr ONCE ONCE IVPB 06/25/19 09:00 06/25/19 14:59 06/25/19 09:36 Rifaximin (Xifaxan) 550 mg EVERY 12 HOURS NG 06/22/19 21:00 06/29/19 20:59 06/25/19 09:06 Spironolactone (Aldactone) 25 mg DAILY NG 06/24/19 09:15 07/24/19 09:14 06/25/19 09:06 Thiamine HCl 100 mg/Dextrose 56 ml @ 112 mls/hr Q24H IVPB 06/21/19 15:00 07/20/19 14:59 06/24/19 15:29 Ilia Chakraborty MD Jun 25, 2019 10:43
--- NOTE | 2019-06-25 10:56 | GI Progress Note ---
Assessment/Plan Problems: (1) End-stage liver disease ICD Codes: K72.90 - Hepatic failure, unspecified without coma SNOMED: 993108870 (2) Pancreatitis, alcoholic, acute ICD Codes: K85.20 - Alcohol induced acute pancreatitis without necrosis or infection SNOMED: 036833631, 9988271 Qualifiers: Qualified Codes: K85.20 - Alcohol induced acute pancreatitis without necrosis or infection (3) Hepatorenal syndrome ICD Codes: K76.7 - Hepatorenal syndrome SNOMED: 15748089, 7948566 (4) Acute alcoholic intoxication ICD Codes: F10.929 - Alcohol use, unspecified with intoxication, unspecified SNOMED: 13562669, 2856009 Qualifiers: Qualified Codes: F10.920 - Alcohol use, unspecified with intoxication, uncomplicated (5) Anemia ICD Codes: D64.9 - Anemia, unspecified SNOMED: 010380314 Qualifiers: Qualified Codes: D64.9 - Anemia, unspecified Status: unchanged Status Narrative Discussed with Dr. Esposito. Assessment/Plan discriminant factor of 16 iv thiamine start NGTF ivf>> will HL if tolerated NGTF repeat labs fu nephrology cont lactulose>> will cut by half given severe diarrhea and hypo K xifaxan s/p blood transfusion paracentesis pending replace K The patient was seen and examined at bedside and all new and available data was reviewed in the patients chart. I agree with the above findings, impression and plan. (Patient seen earlier today. Signature stamp does not reflect patient encounter time.). - Merlin Esposito MD Subjective Subjective limited Objective Last 24 Hour Vital Signs Date Time Temp Pulse Resp B/P (MAP) Pulse Ox O2 Delivery O2 Flow Rate FiO2 06/25/19 08:00 96.1 87 27 90/58 (69) 97 06/25/19 08:00 Nasal Cannula 2.0 06/25/19 07:48 95 Nasal Cannula 2.0 28 06/25/19 07:48 85 20 100 Nasal Cannula 2.0 28 80 18 95 06/25/19 07:00 84 30 91/60 (70) 98 06/25/19 04:00 Nasal Cannula 2.0 06/25/19 04:00 116 06/25/19 04:00 98.9 107 33 91/70 (77) 97 06/25/19 03:23 112 35 100 Nasal Cannula 2.0 28 111 30 98 06/25/19 03:21 98.9 06/25/19 03:00 107 36 99/58 (72) 100 06/25/19 02:00 107 39 99/58 (72) 98 06/25/19 01:00 110 36 91/50 (64) 98 06/25/19 00:00 Nasal Cannula 2.0 06/25/19 00:00 110 06/25/19 00:00 99.0 111 36 97/54 (68) 98 06/24/19 23:35 106 36 100 Nasal Cannula 2.0 28 104 35 100 06/24/19 23:00 107 36 99/58 (72) 98 06/24/19 22:00 105 36 99/61 (74) 98 06/24/19 21:00 99 24 98/58 (71) 98 06/24/19 20:00 95 06/24/19 20:00 99 31 102/69 (80) 97 06/24/19 20:00 Nasal Cannula 2.0 06/24/19 19:18 96 24 99 Nasal Cannula 2.0 28 94 24 99 06/24/19 19:17 99 Nasal Cannula 2.0 28 06/24/19 19:00 93 24 98/56 (70) 99 06/24/19 18:00 92 24 104/66 (79) 98 06/24/19 17:00 78 24 94/55 (68) 98 06/24/19 16:00 Nasal Cannula 3.0 06/24/19 16:00 83 06/24/19 16:00 97.8 79 21 102/61 (75) 98 06/24/19 15:03 85 18 100 Nasal Cannula 2.0 28 84 16 100 06/24/19 15:00 82 22 106/65 (79) 100 06/24/19 14:00 87 22 98/57 (71) 99 06/24/19 13:00 85 23 96/58 (71) 99 06/24/19 12:00 98.0 97 21 94/48 (63) 99 06/24/19 12:00 90 06/24/19 12:00 Nasal Cannula 3.0 06/24/19 11:00 83 23 96/58 (71) 99 Intake and Output 06/24/19 06/25/19 19:00 07:00 Intake Total 2698.5 ml 2065.0 ml Output Total 2125 ml 1790 ml Balance 573.5 ml 275.0 ml Free Water 200 ml 100 ml IV Total 2028.5 ml 1305.0 ml Tube Feeding 470 ml 660 ml Output Urine Total 725 ml 490 ml Stool Total 1400 ml 1300 ml Laboratory Tests Test 06/24/19 19:00 06/25/19 04:15 06/25/19 07:55 Potassium Level 3.5 MMOL/L (3.5-5.1) 3.7 MMOL/L (3.5-5.1) White Blood Count 17.8 K/UL (4.8-10.8) H Red Blood Count 3.01 M/UL (4.70-6.10) L Hemoglobin 9.0 G/DL (14.2-18.0) L Hematocrit 29.3 % (42.0-52.0) L Mean Corpuscular Volume 97 FL (80-99) Mean Corpuscular Hemoglobin 29.9 PG (27.0-31.0) Mean Corpuscular Hemoglobin Concent 30.7 G/DL (32.0-36.0) L Red Cell Distribution Width 22.1 % (11.6-14.8) H Platelet Count 216 K/UL (150-450) Mean Platelet Volume 6.1 FL (6.5-10.1) L Neutrophils (%) (Auto) 72.8 % (45.0-75.0) Lymphocytes (%) (Auto) 9.9 % (20.0-45.0) L Monocytes (%) (Auto) 12.4 % (1.0-10.0) H Eosinophils (%) (Auto) 3.5 % (0.0-3.0) H Basophils (%) (Auto) 1.5 % (0.0-2.0) Prothrombin Time 17.1 SEC (9.30-11.50) H Prothromb Time International Ratio 1.6 (0.9-1.1) H Sodium Level 166 MMOL/L (136-145) *H Chloride Level 134 MMOL/L (98-107) H Carbon Dioxide Level 18 MMOL/L (21-32) L Anion Gap 14 mmol/L (5-15) Blood Urea Nitrogen 26 mg/dL (7-18) H Creatinine 1.4 MG/DL (0.55-1.30) H Estimat Glomerular Filtration Rate 56.4 mL/min (>60) Glucose Level 158 MG/DL (74-106) H Uric Acid 3.5 MG/DL (2.6-7.2) Calcium Level 8.5 MG/DL (8.5-10.1) Phosphorus Level 0.7 MG/DL (2.5-4.9) *L Magnesium Level 2.1 MG/DL (1.8-2.4) Total Bilirubin 27.6 MG/DL (0.2-1.0) H Direct Bilirubin 22.9 MG/DL (0.0-0.3) H Aspartate Amino Transf (AST/SGOT) 151 U/L (15-37) H Alanine Aminotransferase (ALT/SGPT) 16 U/L (12-78) Alkaline Phosphatase 352 U/L (46-116) H C-Reactive Protein, Quantitative 5.9 mg/dL (0.00-0.90) H Pro-B-Type Natriuretic Peptide 146 pg/mL (0-125) H Total Protein 5.4 G/DL (6.4-8.2) L Albumin 1.7 G/DL (3.4-5.0) L Globulin 3.7 g/dL Albumin/Globulin Ratio 0.5 (1.0-2.7) L Ammonia 66 umol/L (11-32) H Height (Feet): 5 Height (Inches): 9.00 Weight (Pounds): 219 General Appearance: no apparent distress, lethargic Cardiovascular: normal rate Respiratory/Chest: no respiratory distress Abdominal Exam: ascites Ayo Lamar NP Jun 25, 2019 10:56
--- NOTE | 2019-06-25 12:30 | Cardiac Electrophysiology PN ---
Assessment/Plan Assessment/Plan 1. Sinus tachycardia due to alcohol withdrawal and hepatic encephalopathy. No SVT or atrial fibrillation. EF 55% 2. Hepatic failure and cirrhosis. On Lactulose. 3. Hepatorenal syndrome. Creatinine is 2. Further evaluation by . 4. Hypokalemia. 5. Alcohol intoxication. Thiamine, folate, and Librium. 6. Hepatic encephalopathy DW RN Subjective Subjective in ICU in restraints and lethargic. Paracentesis pending tomorrow. No arrhythmias and off pressors Objective Last 24 Hour Vital Signs Date Time Temp Pulse Resp B/P (MAP) Pulse Ox O2 Delivery O2 Flow Rate FiO2 06/25/19 11:36 84 27 99 Nasal Cannula 2.0 28 86 22 97 06/25/19 11:00 85 29 93/52 (66) 98 06/25/19 10:00 87 28 94/49 (64) 97 06/25/19 09:00 87 29 118/95 (103) 97 06/25/19 08:00 96.1 87 27 90/58 (69) 97 06/25/19 08:00 Nasal Cannula 2.0 06/25/19 08:00 82 06/25/19 07:48 95 Nasal Cannula 2.0 28 06/25/19 07:48 85 20 100 Nasal Cannula 2.0 28 80 18 95 06/25/19 07:00 84 30 91/60 (70) 98 06/25/19 04:00 Nasal Cannula 2.0 06/25/19 04:00 116 06/25/19 04:00 98.9 107 33 91/70 (77) 97 06/25/19 03:23 112 35 100 Nasal Cannula 2.0 28 111 30 98 06/25/19 03:21 98.9 06/25/19 03:00 107 36 99/58 (72) 100 06/25/19 02:00 107 39 99/58 (72) 98 06/25/19 01:00 110 36 91/50 (64) 98 06/25/19 00:00 Nasal Cannula 2.0 06/25/19 00:00 110 06/25/19 00:00 99.0 111 36 97/54 (68) 98 06/24/19 23:35 106 36 100 Nasal Cannula 2.0 28 104 35 100 06/24/19 23:00 107 36 99/58 (72) 98 06/24/19 22:00 105 36 99/61 (74) 98 06/24/19 21:00 99 24 98/58 (71) 98 06/24/19 20:00 95 06/24/19 20:00 99 31 102/69 (80) 97 06/24/19 20:00 Nasal Cannula 2.0 06/24/19 19:18 96 24 99 Nasal Cannula 2.0 28 94 24 99 06/24/19 19:17 99 Nasal Cannula 2.0 28 06/24/19 19:00 93 24 98/56 (70) 99 06/24/19 18:00 92 24 104/66 (79) 98 06/24/19 17:00 78 24 94/55 (68) 98 06/24/19 16:00 Nasal Cannula 3.0 06/24/19 16:00 83 06/24/19 16:00 97.8 79 21 102/61 (75) 98 06/24/19 15:03 85 18 100 Nasal Cannula 2.0 28 84 16 100 06/24/19 15:00 82 22 106/65 (79) 100 06/24/19 14:00 87 22 98/57 (71) 99 06/24/19 13:00 85 23 96/58 (71) 99 Intake and Output 06/24/19 06/25/19 19:00 07:00 Intake Total 2698.5 ml 2065.0 ml Output Total 2125 ml 1790 ml Balance 573.5 ml 275.0 ml Free Water 200 ml 100 ml IV Total 2028.5 ml 1305.0 ml Tube Feeding 470 ml 660 ml Output Urine Total 725 ml 490 ml Stool Total 1400 ml 1300 ml Laboratory Tests Test 06/24/19 19:00 06/25/19 04:15 06/25/19 07:55 Potassium Level 3.5 MMOL/L (3.5-5.1) 3.7 MMOL/L (3.5-5.1) White Blood Count 17.8 K/UL (4.8-10.8) H Red Blood Count 3.01 M/UL (4.70-6.10) L Hemoglobin 9.0 G/DL (14.2-18.0) L Hematocrit 29.3 % (42.0-52.0) L Mean Corpuscular Volume 97 FL (80-99) Mean Corpuscular Hemoglobin 29.9 PG (27.0-31.0) Mean Corpuscular Hemoglobin Concent 30.7 G/DL (32.0-36.0) L Red Cell Distribution Width 22.1 % (11.6-14.8) H Platelet Count 216 K/UL (150-450) Mean Platelet Volume 6.1 FL (6.5-10.1) L Neutrophils (%) (Auto) 72.8 % (45.0-75.0) Lymphocytes (%) (Auto) 9.9 % (20.0-45.0) L Monocytes (%) (Auto) 12.4 % (1.0-10.0) H Eosinophils (%) (Auto) 3.5 % (0.0-3.0) H Basophils (%) (Auto) 1.5 % (0.0-2.0) Prothrombin Time 17.1 SEC (9.30-11.50) H Prothromb Time International Ratio 1.6 (0.9-1.1) H Sodium Level 166 MMOL/L (136-145) *H Chloride Level 134 MMOL/L (98-107) H Carbon Dioxide Level 18 MMOL/L (21-32) L Anion Gap 14 mmol/L (5-15) Blood Urea Nitrogen 26 mg/dL (7-18) H Creatinine 1.4 MG/DL (0.55-1.30) H Estimat Glomerular Filtration Rate 56.4 mL/min (>60) Glucose Level 158 MG/DL (74-106) H Uric Acid 3.5 MG/DL (2.6-7.2) Calcium Level 8.5 MG/DL (8.5-10.1) Phosphorus Level 0.7 MG/DL (2.5-4.9) *L Magnesium Level 2.1 MG/DL (1.8-2.4) Total Bilirubin 27.6 MG/DL (0.2-1.0) H Direct Bilirubin 22.9 MG/DL (0.0-0.3) H Aspartate Amino Transf (AST/SGOT) 151 U/L (15-37) H Alanine Aminotransferase (ALT/SGPT) 16 U/L (12-78) Alkaline Phosphatase 352 U/L (46-116) H C-Reactive Protein, Quantitative 5.9 mg/dL (0.00-0.90) H Pro-B-Type Natriuretic Peptide 146 pg/mL (0-125) H Total Protein 5.4 G/DL (6.4-8.2) L Albumin 1.7 G/DL (3.4-5.0) L Globulin 3.7 g/dL Albumin/Globulin Ratio 0.5 (1.0-2.7) L Ammonia 66 umol/L (11-32) H Objective HEAD AND NECK: No JVD. Sclera is jaundiced. LUNGS: Decreased breath sounds. CARDIOVASCULAR: Tachycardic. S1 and S2 with no gallop. ABDOMEN: Distended with ascites. EXTREMITIES: 2+ pitting edema. Felice Smith MD Jun 25, 2019 12:30
[2019-06-25] MEDS: Thiamine HCl 100 MG in D5W 55 ML IVPB SCH (15:12)
--- NOTE | 2019-06-25 15:20 | Pulmonolgy Critical Care Note ---
Critical Care - Asmt/Plan Assessment/Plan: Pulmonary CCM Consultation HPI This is a 39-year-old male who is an alcoholic with significant fatty liver on abdominal CT and alcoholic hepatitis, DF 16, not candidate for steroids currently per GI. He has been drinking heavily for 3 months straight. 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 Noted to have Hepatic Encephalopathy and Hepatorenal Syndrome. No bleeding. No nausea no vomiting. Nothing made it better. Movement or exertion makes it worse. Noted to have significant hypokalemia and alkalosis, evidence of sepsis, source unclear - some bacteria in urine, mid ascites - possible SBP, dilated Gallbladder More awake today, has NGT and on Lactulose Allergies: No Known Allergies Past Medical History: Alcohol abuse All Other Systems: negative except mentioned in HPI Physical Exam Vital Signs Noted General Appearance: Jaundiced, ill appearing, less somnolent Head: normocephalic, atraumatic Eyes: bilateral eye PERRL, bilateral eye EOMI, bilateral eye scleral icterus ENT: moist mm Neck: no masses, no LN Respiratory: chest non-tender, lungs clear, normal breath sounds Cardiovascular: regular rate, rhythm, Normal HS1, HS2, no murmur, tachycardia Gastrointestinal: Obese, hepatomegaly, some tenderness RUQ, normal bowel sounds , no mass, no rebound Musculoskeletal: moves all limbs Neurologic: responds to commands, drowsy Skin: jaundiced, moderate edema Impression: Acute alcoholic intoxication Severe Sepsis Alcoholic Hepatitis Possible Cirrhosis Metabolic and respiratory alkalosis Possible Portal Hypertension Hepatorenal syndrome Pancreatitis, alcoholic, acute Anemia Plan ICU management NPO except meds IV antibiotics per ID Aspiration precautions GI/Renal following IVF PRN Transfuse PRN Thiamine Monitor labs K supplementation Adjust FIO2 - sats 90-96% Labs: noted EKG: Rate: tachycardiac Rhythm: NSR ST Segments: other - NSST changes Chest X-Ray: hypoventilatory exam, no consolidation, no effusion, no pneumothorax, no acute cardiopulmonary disease CT abdomen pelvis: Severely enlarged liver and fatty liver. Mild ascites. Critical Care - Objective Last 24 Hour Vital Signs Date Time Temp Pulse Resp B/P (MAP) Pulse Ox O2 Delivery O2 Flow Rate FiO2 06/25/19 14:30 93 22 99 Nasal Cannula 2.0 28 91 23 98 06/25/19 13:00 91 31 90/55 (67) 98 06/25/19 12:00 98.5 89 30 88/46 (60) 98 06/25/19 12:00 91 06/25/19 12:00 Nasal Cannula 2.0 06/25/19 11:36 84 27 99 Nasal Cannula 2.0 28 86 22 97 06/25/19 11:00 85 29 93/52 (66) 98 06/25/19 10:00 87 28 94/49 (64) 97 06/25/19 09:00 87 29 118/95 (103) 97 06/25/19 08:00 96.1 87 27 90/58 (69) 97 06/25/19 08:00 Nasal Cannula 2.0 06/25/19 08:00 82 06/25/19 07:48 95 Nasal Cannula 2.0 28 06/25/19 07:48 85 20 100 Nasal Cannula 2.0 28 80 18 95 06/25/19 07:00 84 30 91/60 (70) 98 06/25/19 04:00 Nasal Cannula 2.0 06/25/19 04:00 116 06/25/19 04:00 98.9 107 33 91/70 (77) 97 06/25/19 03:23 112 35 100 Nasal Cannula 2.0 28 111 30 98 06/25/19 03:21 98.9 06/25/19 03:00 107 36 99/58 (72) 100 06/25/19 02:00 107 39 99/58 (72) 98 06/25/19 01:00 110 36 91/50 (64) 98 06/25/19 00:00 Nasal Cannula 2.0 06/25/19 00:00 110 06/25/19 00:00 99.0 111 36 97/54 (68) 98 06/24/19 23:35 106 36 100 Nasal Cannula 2.0 28 104 35 100 06/24/19 23:00 107 36 99/58 (72) 98 06/24/19 22:00 105 36 99/61 (74) 98 06/24/19 21:00 99 24 98/58 (71) 98 06/24/19 20:00 95 06/24/19 20:00 99 31 102/69 (80) 97 06/24/19 20:00 Nasal Cannula 2.0 06/24/19 19:18 96 24 99 Nasal Cannula 2.0 28 94 24 99 06/24/19 19:17 99 Nasal Cannula 2.0 28 06/24/19 19:00 93 24 98/56 (70) 99 06/24/19 18:00 92 24 104/66 (79) 98 06/24/19 17:00 78 24 94/55 (68) 98 06/24/19 16:00 Nasal Cannula 3.0 06/24/19 16:00 83 06/24/19 16:00 97.8 79 21 102/61 (75) 98 Critical Care - Subjective ROS Limited/Unobtainable: No FI02: 28 Sputum Amount: Scant Tube Feeding Amount: 60 I&O: Intake and Output 06/24/19 06/25/19 19:00 07:00 Intake Total 2698.5 ml 2065.0 ml Output Total 2125 ml 1790 ml Balance 573.5 ml 275.0 ml Free Water 200 ml 100 ml IV Total 2028.5 ml 1305.0 ml Tube Feeding 470 ml 660 ml Output Urine Total 725 ml 490 ml Stool Total 1400 ml 1300 ml Quang Domingo MD Jun 25, 2019 15:20
[2019-06-25] MEDS ORDERED: LORazepam Inj 2mg/ml 1ml IV PRN (18:00)
[2019-06-25] MEDS ORDERED: Lidocaine 1% MPF 10mg/ml 5ml INJ PRN (18:15)
[2019-06-25] MEDS: D5 1/2NS 1,000 ML IV SCH ×2 (19:20→20:00)
--- NOTE | 2019-06-25 20:14 | Hematology/Onc Progress Note ---
Assessment/Plan Assessment/Plan Assessment and Recs; # Thrombocytopenia - potential causes multifactorial, does have a history of etoh abuse, cirrhosis of the liver, hepatosplenomegaly, portal HTN, coagulopathy noted as well --> Hep panel and HIV ordered (NEG) --> US abd does show, portal htn and cirrhosis ++ --> Peripheral smear ordered to evaluate for blasts /schistocytes reviewed and is negative --> abx and other meds have been reviewed --> ok for ppx if plt >50k w/ either heparin or lovenox --> Transfuse if Plt < 20k and fever, or if Plt < 10k without fever --> plt trend 80-->97-->117-->157k->216k # Anemia of chronic disease due to underlying chronic medical issues, multifactorial (myelosuprresion noted) --> Anemia workup has been reviewed, ferritin 297 --> No evidence of hemolysis is noted, peripheral smear has been reviewed. --> Hgb goal >7. Transfuse prn. --> Epogen or iron at this time is not particularly indicated --> Medications have been reviewed --> low threshold for gi evaluation in case has occult + --> hgb trend: 7.7-->8.2-->9 --> serum electrophoresis ordered 06/20 # Coagulopathy due to cirrhosis --> give Vitk as needed # Acute alcoholic intoxication --> etoh abuse history --> thiamine, folic acid, ivf # End-stage liver disease --> Hepatorenal syndrome r/o with renal, albumin prn # Pancreatitis, alcoholic, acute # Tachycardia The timing of this note does not necessarily reflect the time of the patient was seen. GREATLY APPRECIATE CONSULTATION. Subjective Constitutional: Denies: no symptoms, chills, fever, malaise, weakness, other Cardiovascular: Denies: no symptoms, chest pain, edema, irregular heart rate, lightheadedness, palpitations, syncope, other Respiratory: Denies: no symptoms, cough, shortness of breath, SOB with excertion, SOB at rest, sputum, wheezing, other Allergies: Coded Allergies: No Known Allergies (Unverified , 06/20/19) Subjective 06/21: low k, ferritin 297, h/h stable, afebrile, blood transfused 06/22: in icu, on restraints, labs reviewed, no f/c, imaging reviewed 06/23: pain meds given, remains in icu, again in restraints, bili higher, inr as well, given vitk 06/25: no fevers, no chills, no bleeding, confused in bed in icu Objective Objective Current Medications Medications (Trade) Dose Ordered Sig/Gabriela Route PRN Reason Start Time Stop Time Status Last Admin Dose Admin Acetaminophen (Tylenol) 325 mg Q6H PRN NG Mild Pain/Temp > 100.5 06/22/19 10:00 07/22/19 09:59 06/25/19 02:51 Dextrose 1,000 ml @ 75 mls/hr [id number] IV 06/25/19 09:00 07/25/19 08:59 06/25/19 09:36 Dextrose/Sodium Chloride 1,000 ml @ 50 mls/hr Q20H IV 06/25/19 20:00 06/26/19 07:00 Folic Acid (Folate) 5 mg DAILY NG 06/23/19 09:00 07/20/19 12:44 06/25/19 09:06 Ipratropium [place] (Atrovent) 500 mcg Q4H PRN HHN Shortness of Breath 06/21/19 15:00 06/26/19 14:59 Ipratropium [place] (Atrovent) 500 mcg Q4HRT HHN 06/21/19 16:45 06/26/19 16:44 06/25/19 19:09 Lactulose (Cephulac) 30 gm FOUR TIMES A DAY NG 06/23/19 13:00 07/20/19 12:59 06/25/19 18:17 Lorazepam (Ativan 2mg/ml 1ml) 0.5 mg Q2H PRN IV Agitation 06/25/19 18:00 07/02/19 17:59 Lorazepam (Ativan 2mg/ml 1ml) 1 mg Q3H PRN IV For Anxiety 06/23/19 09:30 06/28/19 14:16 06/25/19 09:05 Norepinephrine Bitartrate 4 mg/ Dextrose 250 ml @ 0 mls/hr Q24H PRN IV For hypotension 06/25/19 19:00 07/25/19 18:59 Pantoprazole (Protonix) 40 mg EVERY 12 HOURS IVP 06/21/19 21:00 07/20/19 20:59 06/25/19 09:06 Piperacillin Sod/ Tazobactam Sod 3.375 gm/Sodium Chloride 110 ml @ 27.5 mls/hr EVERY 8 HOURS IVPB 06/22/19 09:30 06/27/19 09:29 06/25/19 13:50 Rifaximin (Xifaxan) 550 mg EVERY 12 HOURS NG 06/22/19 21:00 06/29/19 20:59 06/25/19 09:06 Spironolactone (Aldactone) 25 mg DAILY NG 06/24/19 09:15 07/24/19 09:14 06/25/19 09:06 Thiamine HCl 100 mg/Dextrose 56 ml @ 112 mls/hr Q24H IVPB 06/21/19 15:00 07/20/19 14:59 06/25/19 15:12 Last 24 Hour Vital Signs Date Time Temp Pulse Resp B/P (MAP) Pulse Ox O2 Delivery O2 Flow Rate FiO2 06/25/19 19:08 98 Nasal Cannula 2.0 28 06/25/19 19:08 93 22 99 Nasal Cannula 2.0 28 90 24 98 06/25/19 18:00 91 29 86/61 (69) 99 06/25/19 17:00 98 31 91/58 (69) 98 06/25/19 16:00 92 06/25/19 16:00 98.6 92 37 91/56 (68) 97 06/25/19 16:00 Nasal Cannula 2.0 06/25/19 15:00 94 34 89/50 (63) 98 06/25/19 14:30 93 22 99 Nasal Cannula 2.0 28 91 23 98 06/25/19 14:00 91 34 88/50 (63) 99 06/25/19 13:00 91 31 90/55 (67) 98 06/25/19 12:00 98.5 89 30 88/46 (60) 98 06/25/19 12:00 91 06/25/19 12:00 Nasal Cannula 2.0 06/25/19 11:36 84 27 99 Nasal Cannula 2.0 28 86 22 97 06/25/19 11:00 85 29 93/52 (66) 98 06/25/19 10:00 87 28 94/49 (64) 97 06/25/19 09:00 87 29 118/95 (103) 97 06/25/19 08:00 96.1 87 27 90/58 (69) 97 06/25/19 08:00 Nasal Cannula 2.0 06/25/19 08:00 82 06/25/19 07:48 95 Nasal Cannula 2.0 28 06/25/19 07:48 85 20 100 Nasal Cannula 2.0 28 80 18 95 06/25/19 07:00 84 30 91/60 (70) 98 06/25/19 04:00 Nasal Cannula 2.0 06/25/19 04:00 116 06/25/19 04:00 98.9 107 33 91/70 (77) 97 06/25/19 03:23 112 35 100 Nasal Cannula 2.0 28 111 30 98 06/25/19 03:21 98.9 06/25/19 03:00 107 36 99/58 (72) 100 06/25/19 02:00 107 39 99/58 (72) 98 06/25/19 01:00 110 36 91/50 (64) 98 06/25/19 00:00 Nasal Cannula 2.0 06/25/19 00:00 110 06/25/19 00:00 99.0 111 36 97/54 (68) 98 06/24/19 23:35 106 36 100 Nasal Cannula 2.0 28 104 35 100 06/24/19 23:00 107 36 99/58 (72) 98 06/24/19 22:00 105 36 99/61 (74) 98 06/24/19 21:00 99 24 98/58 (71) 98 06/24/19 20:00 95 06/24/19 20:00 99 31 102/69 (80) 97 06/24/19 20:00 Nasal Cannula 2.0 06/24/19 19:18 96 24 99 Nasal Cannula 2.0 28 94 24 99 06/24/19 19:17 99 Nasal Cannula 2.0 28 06/24/19 19:00 93 24 98/56 (70) 99 06/24/19 18:00 92 24 104/66 (79) 98 06/24/19 17:00 78 24 94/55 (68) 98 06/24/19 16:00 Nasal Cannula 3.0 06/24/19 16:00 83 06/24/19 16:00 97.8 79 21 102/61 (75) 98 06/24/19 15:03 85 18 100 Nasal Cannula 2.0 28 84 16 100 06/24/19 15:00 82 22 106/65 (79) 100 06/24/19 14:00 87 22 98/57 (71) 99 06/24/19 13:00 85 23 96/58 (71) 99 06/24/19 12:00 98.0 97 21 94/48 (63) 99 06/24/19 12:00 90 06/24/19 12:00 Nasal Cannula 3.0 06/24/19 11:00 83 23 96/58 (71) 99 06/24/19 10:49 87 18 100 Nasal Cannula 2.0 28 89 18 100 06/24/19 10:00 93 20 96/55 (69) 100 06/24/19 09:00 88 20 101/59 (73) 99 06/24/19 08:00 97.6 89 21 101/58 (72) 98 06/24/19 08:00 Nasal Cannula 3.0 06/24/19 08:00 87 06/24/19 07:00 90 21 110/62 (78) 100 06/24/19 06:50 89 16 100 Nasal Cannula 2.0 28 88 19 100 06/24/19 06:50 99 Nasal Cannula 2.0 28 06/24/19 06:00 85 22 113/63 (80) 100 06/24/19 05:00 93 30 100/56 (71) 96 06/24/19 04:00 96 06/24/19 04:00 Nasal Cannula 3.0 06/24/19 04:00 97.5 89 28 97/58 (71) 98 06/24/19 03:00 96 21 108/69 (82) 99 06/24/19 02:31 100 18 100 Nasal Cannula 2.0 28 97 17 98 06/24/19 02:00 92 30 101/59 (73) 96 06/24/19 01:00 94 29 113/64 (80) 97 06/24/19 00:00 97.5 93 18 105/64 (78) 99 06/24/19 00:00 92 06/24/19 00:00 Nasal Cannula 3.0 06/23/19 23:00 94 18 113/64 (80) 99 06/23/19 22:40 97 19 100 Nasal Cannula 2.0 28 95 18 99 06/23/19 22:00 94 20 110/63 (79) 99 06/23/19 21:00 96 29 109/72 (84) 97 Intake and Output 06/24/19 06/25/19 19:00 07:00 Intake Total 2698.5 ml 2065.0 ml Output Total 2125 ml 1790 ml Balance 573.5 ml 275.0 ml Free Water 200 ml 100 ml IV Total 2028.5 ml 1305.0 ml Tube Feeding 470 ml 660 ml Output Urine Total 725 ml 490 ml Stool Total 1400 ml 1300 ml Labs Test 06/23/19 04:30 06/23/19 20:47 06/24/19 04:18 06/24/19 19:00 White Blood Count 16.0 K/UL (4.8-10.8) 18.2 K/UL (4.8-10.8) Red Blood Count 2.70 M/UL (4.70-6.10) 3.01 M/UL (4.70-6.10) Hemoglobin 8.2 G/DL (14.2-18.0) 9.1 G/DL (14.2-18.0) Hematocrit 25.2 % (42.0-52.0) 28.8 % (42.0-52.0) Mean Corpuscular Volume 93 FL (80-99) 96 FL (80-99) Mean Corpuscular Hemoglobin 30.2 PG (27.0-31.0) 30.1 PG (27.0-31.0) Mean Corpuscular Hemoglobin Concent 32.4 G/DL (32.0-36.0) 31.4 G/DL (32.0-36.0) Red Cell Distribution Width 18.6 % (11.6-14.8) 20.4 % (11.6-14.8) Platelet Count 153 K/UL (150-450) 196 K/UL (150-450) Mean Platelet Volume 6.9 FL (6.5-10.1) 6.8 FL (6.5-10.1) Neutrophils (%) (Auto) 80.3 % (45.0-75.0) % (45.0-75.0) Lymphocytes (%) (Auto) 9.3 % (20.0-45.0) % (20.0-45.0) Monocytes (%) (Auto) 6.3 % (1.0-10.0) % (1.0-10.0) Eosinophils (%) (Auto) 3.2 % (0.0-3.0) % (0.0-3.0) Basophils (%) (Auto) 1.0 % (0.0-2.0) % (0.0-2.0) Prothrombin Time 22.1 SEC (9.30-11.50) 20.0 SEC (9.30-11.50) Prothromb Time International Ratio 2.2 (0.9-1.1) 1.9 (0.9-1.1) Sodium Level 150 MMOL/L (136-145) 158 MMOL/L (136-145) Potassium Level 2.5 MMOL/L (3.5-5.1) 2.5 MMOL/L (3.5-5.1) 3.5 MMOL/L (3.5-5.1) Chloride Level 115 MMOL/L (98-107) 124 MMOL/L (98-107) Carbon Dioxide Level 23 MMOL/L (21-32) 24 MMOL/L (21-32) Anion Gap 12 mmol/L (5-15) 10 mmol/L (5-15) Blood Urea Nitrogen 33 mg/dL (7-18) 27 mg/dL (7-18) Creatinine 1.9 MG/DL (0.55-1.30) 1.5 MG/DL (0.55-1.30) Estimat Glomerular Filtration Rate 39.7 mL/min (>60) 52.1 mL/min (>60) Glucose Level 117 MG/DL (74-106) 119 MG/DL (74-106) Uric Acid 7.7 MG/DL (2.6-7.2) 4.7 MG/DL (2.6-7.2) Calcium Level 8.3 MG/DL (8.5-10.1) 8.5 MG/DL (8.5-10.1) Phosphorus Level 1.4 MG/DL (2.5-4.9) 2.1 MG/DL (2.5-4.9) Magnesium Level 1.8 MG/DL (1.8-2.4) 1.7 MG/DL (1.8-2.4) Total Bilirubin 26.0 MG/DL (0.2-1.0) 27.5 MG/DL (0.2-1.0) Direct Bilirubin 21.6 MG/DL (0.0-0.3) 23.1 MG/DL (0.0-0.3) Gamma Glutamyl Transpeptidase 1200 U/L (5-85) 1052 U/L (5-85) Aspartate Amino Transf (AST/SGOT) 151 U/L (15-37) 132 U/L (15-37) Alanine Aminotransferase (ALT/SGPT) 12 U/L (12-78) 15 U/L (12-78) Alkaline Phosphatase 400 U/L (46-116) 382 U/L (46-116) Ammonia 109 umol/L (11-32) 72 umol/L (11-32) Total Creatine Kinase 117 U/L (26-308) C-Reactive Protein, Quantitative 7.8 mg/dL (0.00-0.90) Pro-B-Type Natriuretic Peptide 126 pg/mL (0-125) Total Protein 6.0 G/DL (6.4-8.2) 5.9 G/DL (6.4-8.2) Albumin 1.8 G/DL (3.4-5.0) 1.8 G/DL (3.4-5.0) Globulin 4.2 g/dL 4.1 g/dL Albumin/Globulin Ratio 0.4 (1.0-2.7) 0.4 (1.0-2.7) Lipase 319 U/L (73-393) Urine Opiates Screen Negative (NEGATIVE) Urine Barbiturates Screen Negative (NEGATIVE) Phencyclidine (PCP) Screen Negative (NEGATIVE) Urine Amphetamines Screen Negative (NEGATIVE) Urine Benzodiazepines Screen Positive (NEGATIVE) Urine Cocaine Screen Negative (NEGATIVE) Urine Marijuana (THC) Screen Negative (NEGATIVE) Differential Total Cells Counted 100 Neutrophils % (Manual) 84 % (45-75) Lymphocytes % (Manual) 6 % (20-45) Monocytes % (Manual) 9 % (1-10) Eosinophils % (Manual) 1 % (0-3) Basophils % (Manual) 0 % (0-2) Band Neutrophils 0 % (0-8) Platelet Estimate Adequate Platelet Morphology Normal Polychromasia 1+ Hypochromasia 1+ Anisocytosis 3+ Vitamin B12 Level 1705 PG/ML (193-986) Folate 13.8 NG/ML (8.6-58.9) Test 06/25/19 04:15 06/25/19 07:55 White Blood Count 17.8 K/UL (4.8-10.8) Red Blood Count 3.01 M/UL (4.70-6.10) Hemoglobin 9.0 G/DL (14.2-18.0) Hematocrit 29.3 % (42.0-52.0) Mean Corpuscular Volume 97 FL (80-99) Mean Corpuscular Hemoglobin 29.9 PG (27.0-31.0) Mean Corpuscular Hemoglobin Concent 30.7 G/DL (32.0-36.0) Red Cell Distribution Width 22.1 % (11.6-14.8) Platelet Count 216 K/UL (150-450) Mean Platelet Volume 6.1 FL (6.5-10.1) Neutrophils (%) (Auto) 72.8 % (45.0-75.0) Lymphocytes (%) (Auto) 9.9 % (20.0-45.0) Monocytes (%) (Auto) 12.4 % (1.0-10.0) Eosinophils (%) (Auto) 3.5 % (0.0-3.0) Basophils (%) (Auto) 1.5 % (0.0-2.0) Prothrombin Time 17.1 SEC (9.30-11.50) Prothromb Time International Ratio 1.6 (0.9-1.1) Sodium Level 166 MMOL/L (136-145) Potassium Level 3.7 MMOL/L (3.5-5.1) Chloride Level 134 MMOL/L (98-107) Carbon Dioxide Level 18 MMOL/L (21-32) Anion Gap 14 mmol/L (5-15) Blood Urea Nitrogen 26 mg/dL (7-18) Creatinine 1.4 MG/DL (0.55-1.30) Estimat Glomerular Filtration Rate 56.4 mL/min (>60) Glucose Level 158 MG/DL (74-106) Uric Acid 3.5 MG/DL (2.6-7.2) Calcium Level 8.5 MG/DL (8.5-10.1) Phosphorus Level 0.7 MG/DL (2.5-4.9) Magnesium Level 2.1 MG/DL (1.8-2.4) Total Bilirubin 27.6 MG/DL (0.2-1.0) Direct Bilirubin 22.9 MG/DL (0.0-0.3) Aspartate Amino Transf (AST/SGOT) 151 U/L (15-37) Alanine Aminotransferase (ALT/SGPT) 16 U/L (12-78) Alkaline Phosphatase 352 U/L (46-116) C-Reactive Protein, Quantitative 5.9 mg/dL (0.00-0.90) Pro-B-Type Natriuretic Peptide 146 pg/mL (0-125) Total Protein 5.4 G/DL (6.4-8.2) Albumin 1.7 G/DL (3.4-5.0) Globulin 3.7 g/dL Albumin/Globulin Ratio 0.5 (1.0-2.7) Ammonia 66 umol/L (11-32) Height (Feet): 5 Height (Inches): 9.00 Weight (Pounds): 219 Objective Physical Exam: Vitals: reviewed General Appearance: NAD HEENT: normocephalic, atraumatic ++ icterus jaundice Neck: non-tender, normal alignment Respiratory/Chest: normal breath sounds bilaterally Cardiovascular/Chest: normal peripheral pulses, normal rate Abdomen: normal bowel sounds, soft,+ peg Extremities: normal range of motion Marty Kebede MD Jun 25, 2019 20:14
--- NOTE | 2019-06-25 21:19 | Hematology/Onc Progress Note ---
Assessment/Plan Assessment/Plan LATE ENTRY NOTE 06/24/2019 Assessment/Plan Assessment/Plan Assessment/Plan Assessment and Recs; # Thrombocytopenia - potential causes multifactorial, does have a history of etoh abuse, cirrhosis of the liver, hepatosplenomegaly, portal HTN, coagulopathy noted as well --> Hep panel and HIV ordered (NEG) --> US abd does show, portal htn and cirrhosis ++ --> Peripheral smear ordered to evaluate for blasts /schistocytes reviewed and is negative --> abx and other meds have been reviewed --> ok for ppx if plt >50k w/ either heparin or lovenox --> Transfuse if Plt < 20k and fever, or if Plt < 10k without fever --> plt trend 80-->97-->117-->157k->216k # Anemia of chronic disease due to underlying chronic medical issues, multifactorial (myelosuprresion noted) --> Anemia workup has been reviewed, ferritin 297 --> No evidence of hemolysis is noted, peripheral smear has been reviewed. --> Hgb goal >7. Transfuse prn. --> Epogen or iron at this time is not particularly indicated --> Medications have been reviewed --> low threshold for gi evaluation in case has occult + --> hgb trend: 7.7-->8.2-->9 --> serum electrophoresis ordered 06/20 # Coagulopathy due to cirrhosis --> give Vitk as needed # Acute alcoholic intoxication --> etoh abuse history --> thiamine, folic acid, ivf # End-stage liver disease --> Hepatorenal syndrome r/o with renal, albumin prn # Pancreatitis, alcoholic, acute # Tachycardia The timing of this note does not necessarily reflect the time of the patient was seen. GREATLY APPRECIATE CONSULTATION. Subjective Allergies: Coded Allergies: No Known Allergies (Unverified , 06/20/19) Subjective Subjective Subjective 06/21: low k, ferritin 297, h/h stable, afebrile, blood transfused 06/22: in icu, on restraints, labs reviewed, no f/c, imaging reviewed 06/23: pain meds given, remains in icu, again in restraints, bili higher, inr as well, given vitk 06/24: seen in ICU, NG Tube in, rectal tube and bilat wrist restraints. Objective Objective Current Medications Medications (Trade) Dose Ordered Sig/Gabriela Route PRN Reason Start Time Stop Time Status Last Admin Dose Admin Acetaminophen (Tylenol) 325 mg Q6H PRN NG Mild Pain/Temp > 100.5 06/22/19 10:00 07/22/19 09:59 06/25/19 02:51 Dextrose 1,000 ml @ 75 mls/hr [id number] IV 06/25/19 09:00 07/25/19 08:59 06/25/19 09:36 Dextrose/Sodium Chloride 1,000 ml @ 50 mls/hr Q20H IV 06/25/19 20:00 06/26/19 07:00 Folic Acid (Folate) 5 mg DAILY NG 06/23/19 09:00 07/20/19 12:44 06/25/19 09:06 Ipratropium [place] (Atrovent) 500 mcg Q4H PRN HHN Shortness of Breath 06/21/19 15:00 06/26/19 14:59 Ipratropium [place] (Atrovent) 500 mcg Q4HRT HHN 06/21/19 16:45 06/26/19 16:44 06/25/19 19:09 Lactulose (Cephulac) 30 gm FOUR TIMES A DAY NG 06/23/19 13:00 07/20/19 12:59 06/25/19 20:27 Lorazepam (Ativan 2mg/ml 1ml) 0.5 mg Q2H PRN IV Agitation 06/25/19 18:00 07/02/19 17:59 Lorazepam (Ativan 2mg/ml 1ml) 1 mg Q3H PRN IV For Anxiety 06/23/19 09:30 06/28/19 14:16 06/25/19 20:26 Norepinephrine Bitartrate 4 mg/ Dextrose 250 ml @ 0 mls/hr Q24H PRN IV For hypotension 06/25/19 19:00 07/25/19 18:59 Pantoprazole (Protonix) 40 mg EVERY 12 HOURS IVP 06/21/19 21:00 07/20/19 20:59 06/25/19 20:26 Piperacillin Sod/ Tazobactam Sod 3.375 gm/Sodium Chloride 110 ml @ 27.5 mls/hr EVERY 8 HOURS IVPB 06/22/19 09:30 06/27/19 09:29 06/25/19 13:50 Rifaximin (Xifaxan) 550 mg EVERY 12 HOURS NG 06/22/19 21:00 06/29/19 20:59 06/25/19 20:27 Spironolactone (Aldactone) 25 mg DAILY NG 06/24/19 09:15 07/24/19 09:14 06/25/19 09:06 Thiamine HCl 100 mg/Dextrose 56 ml @ 112 mls/hr Q24H IVPB 06/21/19 15:00 07/20/19 14:59 06/25/19 15:12 Last 24 Hour Vital Signs Date Time Temp Pulse Resp B/P (MAP) Pulse Ox O2 Delivery O2 Flow Rate FiO2 06/25/19 19:08 98 Nasal Cannula 2.0 28 06/25/19 19:08 93 22 99 Nasal Cannula 2.0 28 90 24 98 06/25/19 18:00 91 29 86/61 (69) 99 06/25/19 17:00 98 31 91/58 (69) 98 06/25/19 16:00 92 06/25/19 16:00 98.6 92 37 91/56 (68) 97 06/25/19 16:00 Nasal Cannula 2.0 06/25/19 15:00 94 34 89/50 (63) 98 06/25/19 14:30 93 22 99 Nasal Cannula 2.0 28 91 23 98 06/25/19 14:00 91 34 88/50 (63) 99 06/25/19 13:00 91 31 90/55 (67) 98 06/25/19 12:00 98.5 89 30 88/46 (60) 98 06/25/19 12:00 91 06/25/19 12:00 Nasal Cannula 2.0 06/25/19 11:36 84 27 99 Nasal Cannula 2.0 28 86 22 97 06/25/19 11:00 85 29 93/52 (66) 98 06/25/19 10:00 87 28 94/49 (64) 97 06/25/19 09:00 87 29 118/95 (103) 97 06/25/19 08:00 96.1 87 27 90/58 (69) 97 06/25/19 08:00 Nasal Cannula 2.0 06/25/19 08:00 82 06/25/19 07:48 95 Nasal Cannula 2.0 28 06/25/19 07:48 85 20 100 Nasal Cannula 2.0 28 80 18 95 06/25/19 07:00 84 30 91/60 (70) 98 06/25/19 04:00 Nasal Cannula 2.0 06/25/19 04:00 116 06/25/19 04:00 98.9 107 33 91/70 (77) 97 06/25/19 03:23 112 35 100 Nasal Cannula 2.0 28 111 30 98 06/25/19 03:21 98.9 06/25/19 03:00 107 36 99/58 (72) 100 06/25/19 02:00 107 39 99/58 (72) 98 06/25/19 01:00 110 36 91/50 (64) 98 06/25/19 00:00 Nasal Cannula 2.0 06/25/19 00:00 110 06/25/19 00:00 99.0 111 36 97/54 (68) 98 06/24/19 23:35 106 36 100 Nasal Cannula 2.0 28 104 35 100 06/24/19 23:00 107 36 99/58 (72) 98 06/24/19 22:00 105 36 99/61 (74) 98 06/24/19 21:00 99 24 98/58 (71) 98 06/24/19 20:00 95 06/24/19 20:00 99 31 102/69 (80) 97 06/24/19 20:00 Nasal Cannula 2.0 06/24/19 19:18 96 24 99 Nasal Cannula 2.0 28 94 24 99 06/24/19 19:17 99 Nasal Cannula 2.0 28 06/24/19 19:00 93 24 98/56 (70) 99 06/24/19 18:00 92 24 104/66 (79) 98 06/24/19 17:00 78 24 94/55 (68) 98 06/24/19 16:00 Nasal Cannula 3.0 06/24/19 16:00 83 06/24/19 16:00 97.8 79 21 102/61 (75) 98 06/24/19 15:03 85 18 100 Nasal Cannula 2.0 28 84 16 100 06/24/19 15:00 82 22 106/65 (79) 100 06/24/19 14:00 87 22 98/57 (71) 99 06/24/19 13:00 85 23 96/58 (71) 99 06/24/19 12:00 98.0 97 21 94/48 (63) 99 06/24/19 12:00 90 06/24/19 12:00 Nasal Cannula 3.0 06/24/19 11:00 83 23 96/58 (71) 99 06/24/19 10:49 87 18 100 Nasal Cannula 2.0 28 89 18 100 06/24/19 10:00 93 20 96/55 (69) 100 06/24/19 09:00 88 20 101/59 (73) 99 06/24/19 08:00 97.6 89 21 101/58 (72) 98 06/24/19 08:00 Nasal Cannula 3.0 06/24/19 08:00 87 06/24/19 07:00 90 21 110/62 (78) 100 06/24/19 06:50 89 16 100 Nasal Cannula 2.0 28 88 19 100 06/24/19 06:50 99 Nasal Cannula 2.0 28 06/24/19 06:00 85 22 113/63 (80) 100 06/24/19 05:00 93 30 100/56 (71) 96 06/24/19 04:00 96 06/24/19 04:00 Nasal Cannula 3.0 06/24/19 04:00 97.5 89 28 97/58 (71) 98 06/24/19 03:00 96 21 108/69 (82) 99 06/24/19 02:31 100 18 100 Nasal Cannula 2.0 28 97 17 98 06/24/19 02:00 92 30 101/59 (73) 96 06/24/19 01:00 94 29 113/64 (80) 97 06/24/19 00:00 97.5 93 18 105/64 (78) 99 06/24/19 00:00 92 06/24/19 00:00 Nasal Cannula 3.0 06/23/19 23:00 94 18 113/64 (80) 99 06/23/19 22:40 97 19 100 Nasal Cannula 2.0 28 95 18 99 06/23/19 22:00 94 20 110/63 (79) 99 Intake and Output 06/24/19 06/25/19 19:00 07:00 Intake Total 2698.5 ml 2065.0 ml Output Total 2125 ml 1790 ml Balance 573.5 ml 275.0 ml Free Water 200 ml 100 ml IV Total 2028.5 ml 1305.0 ml Tube Feeding 470 ml 660 ml Output Urine Total 725 ml 490 ml Stool Total 1400 ml 1300 ml Labs Test 06/23/19 04:30 06/23/19 20:47 06/24/19 04:18 06/24/19 19:00 White Blood Count 16.0 K/UL (4.8-10.8) 18.2 K/UL (4.8-10.8) Red Blood Count 2.70 M/UL (4.70-6.10) 3.01 M/UL (4.70-6.10) Hemoglobin 8.2 G/DL (14.2-18.0) 9.1 G/DL (14.2-18.0) Hematocrit 25.2 % (42.0-52.0) 28.8 % (42.0-52.0) Mean Corpuscular Volume 93 FL (80-99) 96 FL (80-99) Mean Corpuscular Hemoglobin 30.2 PG (27.0-31.0) 30.1 PG (27.0-31.0) Mean Corpuscular Hemoglobin Concent 32.4 G/DL (32.0-36.0) 31.4 G/DL (32.0-36.0) Red Cell Distribution Width 18.6 % (11.6-14.8) 20.4 % (11.6-14.8) Platelet Count 153 K/UL (150-450) 196 K/UL (150-450) Mean Platelet Volume 6.9 FL (6.5-10.1) 6.8 FL (6.5-10.1) Neutrophils (%) (Auto) 80.3 % (45.0-75.0) % (45.0-75.0) Lymphocytes (%) (Auto) 9.3 % (20.0-45.0) % (20.0-45.0) Monocytes (%) (Auto) 6.3 % (1.0-10.0) % (1.0-10.0) Eosinophils (%) (Auto) 3.2 % (0.0-3.0) % (0.0-3.0) Basophils (%) (Auto) 1.0 % (0.0-2.0) % (0.0-2.0) Prothrombin Time 22.1 SEC (9.30-11.50) 20.0 SEC (9.30-11.50) Prothromb Time International Ratio 2.2 (0.9-1.1) 1.9 (0.9-1.1) Sodium Level 150 MMOL/L (136-145) 158 MMOL/L (136-145) Potassium Level 2.5 MMOL/L (3.5-5.1) 2.5 MMOL/L (3.5-5.1) 3.5 MMOL/L (3.5-5.1) Chloride Level 115 MMOL/L (98-107) 124 MMOL/L (98-107) Carbon Dioxide Level 23 MMOL/L (21-32) 24 MMOL/L (21-32) Anion Gap 12 mmol/L (5-15) 10 mmol/L (5-15) Blood Urea Nitrogen 33 mg/dL (7-18) 27 mg/dL (7-18) Creatinine 1.9 MG/DL (0.55-1.30) 1.5 MG/DL (0.55-1.30) Estimat Glomerular Filtration Rate 39.7 mL/min (>60) 52.1 mL/min (>60) Glucose Level 117 MG/DL (74-106) 119 MG/DL (74-106) Uric Acid 7.7 MG/DL (2.6-7.2) 4.7 MG/DL (2.6-7.2) Calcium Level 8.3 MG/DL (8.5-10.1) 8.5 MG/DL (8.5-10.1) Phosphorus Level 1.4 MG/DL (2.5-4.9) 2.1 MG/DL (2.5-4.9) Magnesium Level 1.8 MG/DL (1.8-2.4) 1.7 MG/DL (1.8-2.4) Total Bilirubin 26.0 MG/DL (0.2-1.0) 27.5 MG/DL (0.2-1.0) Direct Bilirubin 21.6 MG/DL (0.0-0.3) 23.1 MG/DL (0.0-0.3) Gamma Glutamyl Transpeptidase 1200 U/L (5-85) 1052 U/L (5-85) Aspartate Amino Transf (AST/SGOT) 151 U/L (15-37) 132 U/L (15-37) Alanine Aminotransferase (ALT/SGPT) 12 U/L (12-78) 15 U/L (12-78) Alkaline Phosphatase 400 U/L (46-116) 382 U/L (46-116) Ammonia 109 umol/L (11-32) 72 umol/L (11-32) Total Creatine Kinase 117 U/L (26-308) C-Reactive Protein, Quantitative 7.8 mg/dL (0.00-0.90) Pro-B-Type Natriuretic Peptide 126 pg/mL (0-125) Total Protein 6.0 G/DL (6.4-8.2) 5.9 G/DL (6.4-8.2) Albumin 1.8 G/DL (3.4-5.0) 1.8 G/DL (3.4-5.0) Globulin 4.2 g/dL 4.1 g/dL Albumin/Globulin Ratio 0.4 (1.0-2.7) 0.4 (1.0-2.7) Lipase 319 U/L (73-393) Urine Opiates Screen Negative (NEGATIVE) Urine Barbiturates Screen Negative (NEGATIVE) Phencyclidine (PCP) Screen Negative (NEGATIVE) Urine Amphetamines Screen Negative (NEGATIVE) Urine Benzodiazepines Screen Positive (NEGATIVE) Urine Cocaine Screen Negative (NEGATIVE) Urine Marijuana (THC) Screen Negative (NEGATIVE) Differential Total Cells Counted 100 Neutrophils % (Manual) 84 % (45-75) Lymphocytes % (Manual) 6 % (20-45) Monocytes % (Manual) 9 % (1-10) Eosinophils % (Manual) 1 % (0-3) Basophils % (Manual) 0 % (0-2) Band Neutrophils 0 % (0-8) Platelet Estimate Adequate Platelet Morphology Normal Polychromasia 1+ Hypochromasia 1+ Anisocytosis 3+ Vitamin B12 Level 1705 PG/ML (193-986) Folate 13.8 NG/ML (8.6-58.9) Test 06/25/19 04:15 06/25/19 07:55 White Blood Count 17.8 K/UL (4.8-10.8) Red Blood Count 3.01 M/UL (4.70-6.10) Hemoglobin 9.0 G/DL (14.2-18.0) Hematocrit 29.3 % (42.0-52.0) Mean Corpuscular Volume 97 FL (80-99) Mean Corpuscular Hemoglobin 29.9 PG (27.0-31.0) Mean Corpuscular Hemoglobin Concent 30.7 G/DL (32.0-36.0) Red Cell Distribution Width 22.1 % (11.6-14.8) Platelet Count 216 K/UL (150-450) Mean Platelet Volume 6.1 FL (6.5-10.1) Neutrophils (%) (Auto) 72.8 % (45.0-75.0) Lymphocytes (%) (Auto) 9.9 % (20.0-45.0) Monocytes (%) (Auto) 12.4 % (1.0-10.0) Eosinophils (%) (Auto) 3.5 % (0.0-3.0) Basophils (%) (Auto) 1.5 % (0.0-2.0) Prothrombin Time 17.1 SEC (9.30-11.50) Prothromb Time International Ratio 1.6 (0.9-1.1) Sodium Level 166 MMOL/L (136-145) Potassium Level 3.7 MMOL/L (3.5-5.1) Chloride Level 134 MMOL/L (98-107) Carbon Dioxide Level 18 MMOL/L (21-32) Anion Gap 14 mmol/L (5-15) Blood Urea Nitrogen 26 mg/dL (7-18) Creatinine 1.4 MG/DL (0.55-1.30) Estimat Glomerular Filtration Rate 56.4 mL/min (>60) Glucose Level 158 MG/DL (74-106) Uric Acid 3.5 MG/DL (2.6-7.2) Calcium Level 8.5 MG/DL (8.5-10.1) Phosphorus Level 0.7 MG/DL (2.5-4.9) Magnesium Level 2.1 MG/DL (1.8-2.4) Total Bilirubin 27.6 MG/DL (0.2-1.0) Direct Bilirubin 22.9 MG/DL (0.0-0.3) Aspartate Amino Transf (AST/SGOT) 151 U/L (15-37) Alanine Aminotransferase (ALT/SGPT) 16 U/L (12-78) Alkaline Phosphatase 352 U/L (46-116) C-Reactive Protein, Quantitative 5.9 mg/dL (0.00-0.90) Pro-B-Type Natriuretic Peptide 146 pg/mL (0-125) Total Protein 5.4 G/DL (6.4-8.2) Albumin 1.7 G/DL (3.4-5.0) Globulin 3.7 g/dL Albumin/Globulin Ratio 0.5 (1.0-2.7) Ammonia 66 umol/L (11-32) Height (Feet): 5 Height (Inches): 9.00 Weight (Pounds): 219 Objective Physical Exam: Vitals: reviewed General Appearance: NAD HEENT: normocephalic, atraumatic ++ icterus jaundice Neck: non-tender, normal alignment Respiratory/Chest: normal breath sounds bilaterally Cardiovascular/Chest: normal peripheral pulses, normal rate Abdomen: normal bowel sounds, soft,+ peg Extremities: normal range of motion Mellisa Balbuena NP Jun 25, 2019 21:19
--- NOTE | 2019-06-25 21:44 | General Progress Note ---
Assessment/Plan Problem List: (1) Anemia ICD Codes: D64.9 - Anemia, unspecified SNOMED: 405218304 Qualifiers: Qualified Codes: D64.9 - Anemia, unspecified (2) Acute alcoholic intoxication ICD Codes: F10.929 - Alcohol use, unspecified with intoxication, unspecified SNOMED: 05332602, 0776371 Qualifiers: Qualified Codes: F10.920 - Alcohol use, unspecified with intoxication, uncomplicated (3) End-stage liver disease ICD Codes: K72.90 - Hepatic failure, unspecified without coma SNOMED: 618274953 (4) Hepatorenal syndrome ICD Codes: K76.7 - Hepatorenal syndrome SNOMED: 83673127, 3080288 (5) Pancreatitis, alcoholic, acute ICD Codes: K85.20 - Alcohol induced acute pancreatitis without necrosis or infection SNOMED: 827994136, 1855113 Qualifiers: Qualified Codes: K85.20 - Alcohol induced acute pancreatitis without necrosis or infection (6) Respiratory failure ICD Codes: J96.90 - Respiratory failure, unspecified, unspecified whether with hypoxia or hypercapnia SNOMED: 683737273 Status: progressing, unchanged Assessment/Plan: respiratory failure etoh cirrhosis jaundice afebrile poor prognosis ams hepatic encephalopathy azotemia stable lyte abnormality ammomia is improving anasarca edema check ammonia level no seizure Subjective ROS Limited/Unobtainable: Yes Allergies: Coded Allergies: No Known Allergies (Unverified , 06/20/19) Objective Last 24 Hour Vital Signs Date Time Temp Pulse Resp B/P (MAP) Pulse Ox O2 Delivery O2 Flow Rate FiO2 06/25/19 20:00 73 06/25/19 20:00 Nasal Cannula 2.0 06/25/19 19:08 98 Nasal Cannula 2.0 28 06/25/19 19:08 93 22 99 Nasal Cannula 2.0 28 90 24 98 06/25/19 18:00 91 29 86/61 (69) 99 06/25/19 17:00 98 31 91/58 (69) 98 06/25/19 16:00 92 06/25/19 16:00 98.6 92 37 91/56 (68) 97 06/25/19 16:00 Nasal Cannula 2.0 06/25/19 15:00 94 34 89/50 (63) 98 06/25/19 14:30 93 22 99 Nasal Cannula 2.0 28 91 23 98 06/25/19 14:00 91 34 88/50 (63) 99 06/25/19 13:00 91 31 90/55 (67) 98 06/25/19 12:00 98.5 89 30 88/46 (60) 98 06/25/19 12:00 91 06/25/19 12:00 Nasal Cannula 2.0 06/25/19 11:36 84 27 99 Nasal Cannula 2.0 28 86 22 97 06/25/19 11:00 85 29 93/52 (66) 98 06/25/19 10:00 87 28 94/49 (64) 97 06/25/19 09:00 87 29 118/95 (103) 97 06/25/19 08:00 96.1 87 27 90/58 (69) 97 06/25/19 08:00 Nasal Cannula 2.0 06/25/19 08:00 82 06/25/19 07:48 95 Nasal Cannula 2.0 28 06/25/19 07:48 85 20 100 Nasal Cannula 2.0 28 80 18 95 06/25/19 07:00 84 30 91/60 (70) 98 06/25/19 04:00 Nasal Cannula 2.0 06/25/19 04:00 116 06/25/19 04:00 98.9 107 33 91/70 (77) 97 06/25/19 03:23 112 35 100 Nasal Cannula 2.0 28 111 30 98 06/25/19 03:21 98.9 06/25/19 03:00 107 36 99/58 (72) 100 06/25/19 02:00 107 39 99/58 (72) 98 06/25/19 01:00 110 36 91/50 (64) 98 06/25/19 00:00 Nasal Cannula 2.0 06/25/19 00:00 110 06/25/19 00:00 99.0 111 36 97/54 (68) 98 06/24/19 23:35 106 36 100 Nasal Cannula 2.0 28 104 35 100 06/24/19 23:00 107 36 99/58 (72) 98 06/24/19 22:00 105 36 99/61 (74) 98 Intake and Output 06/24/19 06/25/19 18:59 06:59 Intake Total 2586.0 ml 2137.5 ml Output Total 2140 ml 1770 ml Balance 446.0 ml 367.5 ml Free Water 200 ml 100 ml IV Total 1956.0 ml 1377.5 ml Tube Feeding 430 ml 660 ml Output Urine Total 740 ml 470 ml Stool Total 1400 ml 1300 ml Laboratory Tests 06/25/19 04:15: White Blood Count 17.8H, Red Blood Count 3.01L, Hemoglobin 9.0L, Hematocrit 29.3L, Mean Corpuscular Volume 97, Mean Corpuscular Hemoglobin 29.9, Mean Corpuscular Hemoglobin Concent 30.7L, Red Cell Distribution Width 22.1H, Platelet Count 216, Mean Platelet Volume 6.1L, Neutrophils (%) (Auto) 72.8, Lymphocytes (%) (Auto) 9.9L, Monocytes (%) (Auto) 12.4H, Eosinophils (%) (Auto) 3.5H, Basophils (%) (Auto) 1.5, Prothrombin Time 17.1H, Prothromb Time International Ratio 1.6H, Sodium Level 166*H, Potassium Level 3.7, Chloride Level 134H, Carbon Dioxide Level 18L, Anion Gap 14, Blood Urea Nitrogen 26H, Creatinine 1.4H, Estimat Glomerular Filtration Rate 56.4, Glucose Level 158H, Uric Acid 3.5, Calcium Level 8.5, Phosphorus Level 0.7*L, Magnesium Level 2.1, Total Bilirubin 27.6H, Direct Bilirubin 22.9H, Aspartate Amino Transf (AST/SGOT ) 151H, Alanine Aminotransferase (ALT/SGPT) 16, Alkaline Phosphatase 352H, C- Reactive Protein, Quantitative 5.9H, Pro-B-Type Natriuretic Peptide 146H, Total Protein 5.4L, Albumin 1.7L, Globulin 3.7, Albumin/Globulin Ratio 0.5L 06/25/19 07:55: Ammonia 66H Height (Feet): 5 Height (Inches): 9.00 Weight (Pounds): 219 Neck: supple Cardiovascular: normal rate Respiratory/Chest: lungs clear Deejay Saldaña MD Jun 25, 2019 21:44
[2019-06-25 22:03] LABS: BASOPHILS % (AUTO) 1.8 % (0.0-2.0); EOSINOPHILS % (AUTO) 3.3 % (0.0-3.0); HEMATOCRIT 27.9 % (42.0-52.0); HEMOGLOBIN 8.9 G/DL (14.2-18.0); LYMPHOCYTES % (AUTO) 12.3 % (20.0-45.0); MEAN CORPUSCULAR VOLUME 94 FL (80-99); MONOCYTES % (AUTO) 9.3 % (1.0-10.0); NEUTROPHILS % (AUTO) 73.3 % (45.0-75.0); PLATELET COUNT 233 K/UL (150-450); RED BLOOD COUNT 2.96 M/UL (4.70-6.10); RED CELL DISTRIBUTION WIDTH 21.3 % (11.6-14.8); WHITE BLOOD COUNT 16.7 K/UL (4.8-10.8)
[2019-06-25 22:09] LABS: INR 1.7 (0.9-1.1)
[2019-06-25 22:32] LABS: ALANINE AMINOTRANSFERASE 14 U/L (12-78); ALBUMIN/GLOBULIN RATIO 0.5 (1.0-2.7); ALKALINE PHOSPHATASE 325 U/L (46-116); ANION GAP 14 mmol/L (5-15); ASPARTATE AMINO TRANSFERASE 178 U/L (15-37); BILIRUBIN,TOTAL 30.3 MG/DL (0.2-1.0); BLOOD UREA NITROGEN 33 mg/dL (7-18); CALCIUM 8.7 MG/DL (8.5-10.1); CARBON DIOXIDE 19 MMOL/L (21-32); CHLORIDE 131 MMOL/L (98-107); CREATININE 1.6 MG/DL (0.55-1.30); POTASSIUM 4.2 MMOL/L (3.5-5.1)
[2019-06-25 22:35] LABS: BILIRUBIN,DIRECT 24.1 MG/DL (0.0-0.3); SODIUM 165 MMOL/L (136-145)
[2019-06-26] VITALS (24 sets, daily range): BP systolic 96–139; BP diastolic 47–96
[2019-06-26] MEDS: Ipratropium 0.02% Inh Soln 2.5ml UD HHN SCH ×4 (03:12→15:15)
[2019-06-26] MEDS: LORazepam Inj 2mg/ml 1ml IV PRN (04:57)
[2019-06-26] MEDS: Piperacillin/Tazobactam 3.375 GM in NS 110 ML IVPB SCH ×3 (05:00→21:45)
[2019-06-26 05:01] LABS: BASOPHILS % (AUTO) 1.9 % (0.0-2.0); EOSINOPHILS % (AUTO) 3.6 % (0.0-3.0); HEMATOCRIT 27.7 % (42.0-52.0); HEMOGLOBIN 8.4 G/DL (14.2-18.0); LYMPHOCYTES % (AUTO) 12.6 % (20.0-45.0); MEAN CORPUSCULAR VOLUME 99 FL (80-99); MONOCYTES % (AUTO) 11.5 % (1.0-10.0); NEUTROPHILS % (AUTO) 70.5 % (45.0-75.0); PLATELET COUNT 205 K/UL (150-450); RED CELL DISTRIBUTION WIDTH 24.7 % (11.6-14.8); WHITE BLOOD COUNT 17.7 K/UL (4.8-10.8)
[2019-06-26 05:40] LABS: AMMONIA 67 umol/L (11-32)
[2019-06-26 05:59] LABS: ALANINE AMINOTRANSFERASE 15 U/L (12-78); ALBUMIN 2.2 G/DL (3.4-5.0); ALBUMIN/GLOBULIN RATIO 0.6 (1.0-2.7); ALKALINE PHOSPHATASE 277 U/L (46-116); ANION GAP 14 mmol/L (5-15); ASPARTATE AMINO TRANSFERASE 171 U/L (15-37); BILIRUBIN,TOTAL 30.2 MG/DL (0.2-1.0); BLOOD UREA NITROGEN 38 mg/dL (7-18); CALCIUM 8.9 MG/DL (8.5-10.1); CARBON DIOXIDE 18 MMOL/L (21-32); CHLORIDE 134 MMOL/L (98-107); CREATININE 1.9 MG/DL (0.55-1.30); GAMMA GLUTAMYL TRANSPEPTIDASE 575 U/L (5-85); PHOSPHORUS 1.7 MG/DL (2.5-4.9); POTASSIUM 3.4 MMOL/L (3.5-5.1)
[2019-06-26 06:04] LABS: SODIUM 167 MMOL/L (136-145)
[2019-06-26 06:06] LABS: BILIRUBIN,DIRECT 24.4 MG/DL (0.0-0.3)
[2019-06-26] MEDS ORDERED: Potassium Phosphate 30 MM in NS 275 ML IV ONE (09:00)
[2019-06-26] MEDS: Pantoprazole Inj IVP SCH ×2 (09:04→20:46)
[2019-06-26] MEDS: Spironolactone 25mg tab NG SCH (09:04)
[2019-06-26] MEDS: Lactulose 20gm/30ml UDC NG SCH ×4 (09:06→20:48)
[2019-06-26] MEDS ORDERED: Lidocaine 1% Plain 30 ml INJ SCH (10:00)
[2019-06-26] MEDS ORDERED: Heparin1,000 units/500ml Premix(Conc:2 units/ml) IV SCH (10:00)
[2019-06-26] MEDS ORDERED: Lidocaine 1% Plain 30 ml INJ PRN (10:15)
[2019-06-26] MEDS ORDERED: Heparin1,000 units/500ml Premix(Conc:2 units/ml) IV PRN (10:15)
--- NOTE | 2019-06-26 10:58 | Infectious Diseases Prog Note ---
Assessment/Plan Assessment/Plan IMPRESSION: 1. Sepsis. 2. Systemic inflammatory response syndrome. 3. Tachycardia. 4. Leukocytosis. 5. colitis, 6.Alcoholic pancreatitis, 7.Cirrhosis of liver, 8. Acute renal failure likely hepatorenal syndrome, 9.Anemia, 10. thrombocytopenia, 11.hypocalcemia, 12.hypomagnesemia, corrected 13 hypokalemia, corrected 14, Alcohol withdrawal. 15.Metabolic encephalopathy 16. Hypophosphatemia 17. Hypernatremia RECOMMENDATION: Continue Zosyn Peritoneal fluid cell & culture Poor prognosis Subjective ROS Limited/Unobtainable: Yes Neurologic: Reports: confusion, other - dilirium on restraint Allergies: Coded Allergies: No Known Allergies (Unverified , 06/20/19) Objective Vital Signs Last 24 Hour Vital Signs Date Time Temp Pulse Resp B/P (MAP) Pulse Ox O2 Delivery O2 Flow Rate FiO2 06/26/19 10:36 88 31 100 Facial 30 06/26/19 10:00 81 28 111/53 (72) 100 06/26/19 09:00 40 06/26/19 09:00 83 35 109/56 (73) 100 06/26/19 08:54 86 32 98 Facial 30 06/26/19 08:00 Nasal Cannula 2.0 06/26/19 08:00 85 06/26/19 08:00 98.3 86 31 113/50 (71) 94 06/26/19 07:00 81 33 102/83 (89) 95 06/26/19 06:59 85 24 100 Nasal Cannula 2.0 28 83 26 94 06/26/19 06:59 94 Nasal Cannula 2.0 28 06/26/19 06:00 82 25 129/54 (79) 92 06/26/19 05:00 83 25 126/55 (78) 93 06/26/19 04:00 Nasal Cannula 2.0 06/26/19 04:00 88 06/26/19 04:00 99.2 89 32 121/79 (93) 94 06/26/19 03:12 90 24 99 Nasal Cannula 2.0 28 89 24 95 06/26/19 03:00 96 35 135/71 (92) 96 06/26/19 02:00 94 29 139/69 (92) 95 06/26/19 01:00 94 35 120/56 (77) 96 06/26/19 00:00 Nasal Cannula 2.0 06/26/19 00:00 97 06/26/19 00:00 100.5 93 34 116/58 (77) 96 06/25/19 23:48 90 24 99 Nasal Cannula 2.0 28 92 26 96 06/25/19 23:00 91 34 127/65 (85) 97 06/25/19 22:00 89 34 121/59 (79) 99 06/25/19 21:00 91 33 93/49 (64) 99 06/25/19 20:00 73 06/25/19 20:00 98.9 91 31 92/76 (81) 98 06/25/19 20:00 Nasal Cannula 2.0 06/25/19 19:08 98 Nasal Cannula 2.0 28 06/25/19 19:08 93 22 99 Nasal Cannula 2.0 28 90 24 98 06/25/19 19:00 91 33 97/71 (80) 100 06/25/19 18:00 91 29 86/61 (69) 99 06/25/19 17:00 98 31 91/58 (69) 98 06/25/19 16:00 92 06/25/19 16:00 98.6 92 37 91/56 (68) 97 06/25/19 16:00 Nasal Cannula 2.0 06/25/19 15:00 94 34 89/50 (63) 98 06/25/19 14:30 93 22 99 Nasal Cannula 2.0 28 91 23 98 06/25/19 14:00 91 34 88/50 (63) 99 06/25/19 13:00 91 31 90/55 (67) 98 06/25/19 12:00 98.5 89 30 88/46 (60) 98 06/25/19 12:00 91 06/25/19 12:00 Nasal Cannula 2.0 06/25/19 11:36 84 27 99 Nasal Cannula 2.0 28 86 22 97 06/25/19 11:00 85 29 93/52 (66) 98 Height (Feet): 5 Height (Inches): 9.00 Weight (Pounds): 219 HEENT: other - icterus Respiratory/Chest: lungs clear Cardiovascular: normal rate Abdomen: distended, other - ascites, NG tube Extremities: other - legs edema Neurologic/Psychiatric: disoriented Laboratory Tests Test 06/25/19 21:50 06/25/19 22:35 06/26/19 03:40 06/26/19 09:30 White Blood Count 16.7 K/UL (4.8-10.8) H 17.7 K/UL (4.8-10.8) H Red Blood Count 2.96 M/UL (4.70-6.10) L 2.80 M/UL (4.70-6.10) L Hemoglobin 8.9 G/DL (14.2-18.0) L 8.4 G/DL (14.2-18.0) L Hematocrit 27.9 % (42.0-52.0) L 27.7 % (42.0-52.0) L Mean Corpuscular Volume 94 FL (80-99) 99 FL (80-99) Mean Corpuscular Hemoglobin 30.2 PG (27.0-31.0) 30.1 PG (27.0-31.0) Mean Corpuscular Hemoglobin Concent 32.1 G/DL (32.0-36.0) 30.4 G/DL (32.0-36.0) L Red Cell Distribution Width 21.3 % (11.6-14.8) H 24.7 % (11.6-14.8) H Platelet Count 233 K/UL (150-450) 205 K/UL (150-450) Mean Platelet Volume 6.9 FL (6.5-10.1) 6.8 FL (6.5-10.1) Neutrophils (%) (Auto) 73.3 % (45.0-75.0) 70.5 % (45.0-75.0) Lymphocytes (%) (Auto) 12.3 % (20.0-45.0) L 12.6 % (20.0-45.0) L Monocytes (%) (Auto) 9.3 % (1.0-10.0) 11.5 % (1.0-10.0) H Eosinophils (%) (Auto) 3.3 % (0.0-3.0) H 3.6 % (0.0-3.0) H Basophils (%) (Auto) 1.8 % (0.0-2.0) 1.9 % (0.0-2.0) Prothrombin Time 17.4 SEC (9.30-11.50) H Prothromb Time International Ratio 1.7 (0.9-1.1) H Sodium Level 165 MMOL/L (136-145) *H 167 MMOL/L (136-145) *H Potassium Level 4.2 MMOL/L (3.5-5.1) 3.4 MMOL/L (3.5-5.1) L Chloride Level 131 MMOL/L (98-107) H 134 MMOL/L (98-107) H Carbon Dioxide Level 19 MMOL/L (21-32) L 18 MMOL/L (21-32) L Anion Gap 14 mmol/L (5-15) 14 mmol/L (5-15) Blood Urea Nitrogen 33 mg/dL (7-18) H 38 mg/dL (7-18) H Creatinine 1.6 MG/DL (0.55-1.30) H 1.9 MG/DL (0.55-1.30) H Estimat Glomerular Filtration Rate 48.4 mL/min (>60) 39.7 mL/min (>60) Glucose Level 137 MG/DL (74-106) H 133 MG/DL (74-106) H Calcium Level 8.7 MG/DL (8.5-10.1) 8.9 MG/DL (8.5-10.1) Total Bilirubin 30.3 MG/DL (0.2-1.0) H 30.2 MG/DL (0.2-1.0) H Direct Bilirubin 24.1 MG/DL (0.0-0.3) H 24.4 MG/DL (0.0-0.3) H Aspartate Amino Transf (AST/SGOT) 178 U/L (15-37) H 171 U/L (15-37) H Alanine Aminotransferase (ALT/SGPT) 14 U/L (12-78) 15 U/L (12-78) Alkaline Phosphatase 325 U/L (46-116) H 277 U/L (46-116) H Total Protein 6.1 G/DL (6.4-8.2) L 5.8 G/DL (6.4-8.2) L Albumin 2.0 G/DL (3.4-5.0) L 2.2 G/DL (3.4-5.0) L Globulin 4.1 g/dL 3.6 g/dL Albumin/Globulin Ratio 0.5 (1.0-2.7) L 0.6 (1.0-2.7) L Arterial Blood pH 7.423 (7.350-7.450) 7.391 (7.350-7.450) Arterial Blood Partial Pressure CO2 28.1 mmHg (35.0-45.0) L 29.9 mmHg (35.0-45.0) L Arterial Blood Partial Pressure O2 77.5 mmHg (75.0-100.0) 90.7 mmHg (75.0-100.0) Arterial Blood HCO3 17.9 mmol/L (22.0-26.0) *L 17.7 mmol/L (22.0-26.0) *L Arterial Blood Oxygen Saturation 94.7 % (95-100) L 96.2 % (95-100) Arterial Blood Base Excess -5.7 (-2-2) L -6.4 (-2-2) L Dave Test Positive Positive Phosphorus Level 1.7 MG/DL (2.5-4.9) L Magnesium Level 2.1 MG/DL (1.8-2.4) Gamma Glutamyl Transpeptidase 575 U/L (5-85) H Ammonia 67 umol/L (11-32) H C-Reactive Protein, Quantitative 6.4 mg/dL (0.00-0.90) H Pro-B-Type Natriuretic Peptide 175 pg/mL (0-125) H Current Medications Medications (Trade) Dose Ordered Sig/Gabriela Route PRN Reason Start Time Stop Time Status Last Admin Dose Admin Acetaminophen (Tylenol) 325 mg Q6H PRN NG Mild Pain/Temp > 100.5 06/22/19 10:00 07/22/19 09:59 06/25/19 02:51 Chlorhexidine Gluconate (Emilie-Hex 2%) 1 applic DAILY@2000 TOPIC 06/26/19 20:00 07/26/19 19:59 Dextrose 1,000 ml @ 125 mls/hr Q8H IV 06/26/19 09:00 07/25/19 08:59 06/26/19 09:03 Folic Acid (Folate) 5 mg DAILY NG 06/23/19 09:00 07/20/19 12:44 06/26/19 09:04 Heparin Sodium/ Sodium Chloride (Heparin 1000 units/500ml Premix) 1,000 unit ONCE PRN IV PICC LINE 06/26/19 10:15 06/27/19 23:59 Ipratropium Grandin (Atrovent) 500 mcg Q4H PRN HHN Shortness of Breath 06/21/19 15:00 06/26/19 14:59 Ipratropium Grandin (Atrovent) 500 mcg Q4HRT HHN 06/21/19 16:45 06/26/19 16:44 06/26/19 06:58 Lactulose (Cephulac) 30 gm FOUR TIMES A DAY NG 06/23/19 13:00 07/20/19 12:59 06/26/19 09:06 Lidocaine HCl (Xylocaine 1% 30ml) 30 ml ONCE PRN INJ PICC LINE 06/26/19 10:15 06/27/19 23:59 Lorazepam (Ativan 2mg/ml 1ml) 0.5 mg Q2H PRN IV Agitation 06/25/19 18:00 07/02/19 17:59 Norepinephrine Bitartrate 4 mg/ Dextrose 250 ml @ 0 mls/hr Q24H PRN IV For hypotension 06/25/19 19:00 07/25/19 18:59 Pantoprazole (Protonix) 40 mg EVERY 12 HOURS IVP 06/21/19 21:00 07/20/19 20:59 06/26/19 09:04 Piperacillin Sod/ Tazobactam Sod 3.375 gm/Sodium Chloride 110 ml @ 27.5 mls/hr EVERY 8 HOURS IVPB 06/22/19 09:30 06/27/19 09:29 06/26/19 05:00 Potassium Phosphate 30 mm/ Sodium Chloride 285 ml @ 47.5 mls/hr ONCE ONCE IV 06/26/19 09:00 06/26/19 14:59 06/26/19 09:03 Rifaximin (Xifaxan) 550 mg EVERY 12 HOURS NG 06/22/19 21:00 06/29/19 20:59 06/26/19 09:04 Spironolactone (Aldactone) 25 mg DAILY NG 06/24/19 09:15 07/24/19 09:14 06/26/19 09:04 Thiamine HCl 100 mg/Dextrose 56 ml @ 112 mls/hr Q24H IVPB 06/21/19 15:00 07/20/19 14:59 06/25/19 15:12 Ilia Chakraborty MD Jun 26, 2019 10:58
[2019-06-26] MEDS ORDERED: LORazepam 0.5mg tab ORAL PRN (11:00)
--- NOTE | 2019-06-26 11:02 | Cardiac Electrophysiology PN ---
Assessment/Plan Assessment/Plan 1. Sinus tachycardia due to alcohol withdrawal and hepatic encephalopathy. No SVT or atrial fibrillation. EF 55% 2. Hepatic failure and cirrhosis. On Lactulose and albumin Getting paracentesis today. 3. Hypotension BP 80 better after albumin. Getting PICC line in case needs Levophed 4. Hepatorenal syndrome. Creatinine is 2. Fu . 5. Hypokalemia. 6. Alcohol intoxication. Thiamine, folate, and Librium. 7. Hepatic encephalopathy DW RN Subjective Subjective in ICU in restraints and lethargic. Paracentesis pending today. Getting PICC line now. No arrhythmias and off pressors Objective Last 24 Hour Vital Signs Date Time Temp Pulse Resp B/P (MAP) Pulse Ox O2 Delivery O2 Flow Rate FiO2 06/26/19 10:36 88 31 100 Facial 30 06/26/19 10:00 81 28 111/53 (72) 100 06/26/19 09:00 40 06/26/19 09:00 83 35 109/56 (73) 100 06/26/19 08:54 86 32 98 Facial 30 06/26/19 08:00 Nasal Cannula 2.0 06/26/19 08:00 85 06/26/19 08:00 98.3 86 31 113/50 (71) 94 06/26/19 07:00 81 33 102/83 (89) 95 06/26/19 06:59 85 24 100 Nasal Cannula 2.0 28 83 26 94 06/26/19 06:59 94 Nasal Cannula 2.0 28 06/26/19 06:00 82 25 129/54 (79) 92 06/26/19 05:00 83 25 126/55 (78) 93 06/26/19 04:00 Nasal Cannula 2.0 06/26/19 04:00 88 06/26/19 04:00 99.2 89 32 121/79 (93) 94 06/26/19 03:12 90 24 99 Nasal Cannula 2.0 28 89 24 95 06/26/19 03:00 96 35 135/71 (92) 96 06/26/19 02:00 94 29 139/69 (92) 95 06/26/19 01:00 94 35 120/56 (77) 96 06/26/19 00:00 Nasal Cannula 2.0 06/26/19 00:00 97 06/26/19 00:00 100.5 93 34 116/58 (77) 96 06/25/19 23:48 90 24 99 Nasal Cannula 2.0 28 92 26 96 06/25/19 23:00 91 34 127/65 (85) 97 06/25/19 22:00 89 34 121/59 (79) 99 06/25/19 21:00 91 33 93/49 (64) 99 06/25/19 20:00 73 06/25/19 20:00 98.9 91 31 92/76 (81) 98 06/25/19 20:00 Nasal Cannula 2.0 06/25/19 19:08 98 Nasal Cannula 2.0 28 06/25/19 19:08 93 22 99 Nasal Cannula 2.0 28 90 24 98 06/25/19 19:00 91 33 97/71 (80) 100 06/25/19 18:00 91 29 86/61 (69) 99 06/25/19 17:00 98 31 91/58 (69) 98 06/25/19 16:00 92 06/25/19 16:00 98.6 92 37 91/56 (68) 97 06/25/19 16:00 Nasal Cannula 2.0 06/25/19 15:00 94 34 89/50 (63) 98 06/25/19 14:30 93 22 99 Nasal Cannula 2.0 28 91 23 98 06/25/19 14:00 91 34 88/50 (63) 99 06/25/19 13:00 91 31 90/55 (67) 98 06/25/19 12:00 98.5 89 30 88/46 (60) 98 06/25/19 12:00 91 06/25/19 12:00 Nasal Cannula 2.0 06/25/19 11:36 84 27 99 Nasal Cannula 2.0 28 86 22 97 Intake and Output 06/25/19 06/26/19 19:00 07:00 Intake Total 1681.0 ml 1035.0 ml Output Total 910 ml 230 ml Balance 771.0 ml 805.0 ml IV Total 961.0 ml 975.0 ml Tube Feeding 720 ml 60 ml Output Urine Total 390 ml 230 ml Stool Total 520 ml Laboratory Tests Test 06/25/19 21:50 06/25/19 22:35 06/26/19 03:40 06/26/19 09:30 White Blood Count 16.7 K/UL (4.8-10.8) H 17.7 K/UL (4.8-10.8) H Red Blood Count 2.96 M/UL (4.70-6.10) L 2.80 M/UL (4.70-6.10) L Hemoglobin 8.9 G/DL (14.2-18.0) L 8.4 G/DL (14.2-18.0) L Hematocrit 27.9 % (42.0-52.0) L 27.7 % (42.0-52.0) L Mean Corpuscular Volume 94 FL (80-99) 99 FL (80-99) Mean Corpuscular Hemoglobin 30.2 PG (27.0-31.0) 30.1 PG (27.0-31.0) Mean Corpuscular Hemoglobin Concent 32.1 G/DL (32.0-36.0) 30.4 G/DL (32.0-36.0) L Red Cell Distribution Width 21.3 % (11.6-14.8) H 24.7 % (11.6-14.8) H Platelet Count 233 K/UL (150-450) 205 K/UL (150-450) Mean Platelet Volume 6.9 FL (6.5-10.1) 6.8 FL (6.5-10.1) Neutrophils (%) (Auto) 73.3 % (45.0-75.0) 70.5 % (45.0-75.0) Lymphocytes (%) (Auto) 12.3 % (20.0-45.0) L 12.6 % (20.0-45.0) L Monocytes (%) (Auto) 9.3 % (1.0-10.0) 11.5 % (1.0-10.0) H Eosinophils (%) (Auto) 3.3 % (0.0-3.0) H 3.6 % (0.0-3.0) H Basophils (%) (Auto) 1.8 % (0.0-2.0) 1.9 % (0.0-2.0) Prothrombin Time 17.4 SEC (9.30-11.50) H Prothromb Time International Ratio 1.7 (0.9-1.1) H Sodium Level 165 MMOL/L (136-145) *H 167 MMOL/L (136-145) *H Potassium Level 4.2 MMOL/L (3.5-5.1) 3.4 MMOL/L (3.5-5.1) L Chloride Level 131 MMOL/L (98-107) H 134 MMOL/L (98-107) H Carbon Dioxide Level 19 MMOL/L (21-32) L 18 MMOL/L (21-32) L Anion Gap 14 mmol/L (5-15) 14 mmol/L (5-15) Blood Urea Nitrogen 33 mg/dL (7-18) H 38 mg/dL (7-18) H Creatinine 1.6 MG/DL (0.55-1.30) H 1.9 MG/DL (0.55-1.30) H Estimat Glomerular Filtration Rate 48.4 mL/min (>60) 39.7 mL/min (>60) Glucose Level 137 MG/DL (74-106) H 133 MG/DL (74-106) H Calcium Level 8.7 MG/DL (8.5-10.1) 8.9 MG/DL (8.5-10.1) Total Bilirubin 30.3 MG/DL (0.2-1.0) H 30.2 MG/DL (0.2-1.0) H Direct Bilirubin 24.1 MG/DL (0.0-0.3) H 24.4 MG/DL (0.0-0.3) H Aspartate Amino Transf (AST/SGOT) 178 U/L (15-37) H 171 U/L (15-37) H Alanine Aminotransferase (ALT/SGPT) 14 U/L (12-78) 15 U/L (12-78) Alkaline Phosphatase 325 U/L (46-116) H 277 U/L (46-116) H Total Protein 6.1 G/DL (6.4-8.2) L 5.8 G/DL (6.4-8.2) L Albumin 2.0 G/DL (3.4-5.0) L 2.2 G/DL (3.4-5.0) L Globulin 4.1 g/dL 3.6 g/dL Albumin/Globulin Ratio 0.5 (1.0-2.7) L 0.6 (1.0-2.7) L Arterial Blood pH 7.423 (7.350-7.450) 7.391 (7.350-7.450) Arterial Blood Partial Pressure CO2 28.1 mmHg (35.0-45.0) L 29.9 mmHg (35.0-45.0) L Arterial Blood Partial Pressure O2 77.5 mmHg (75.0-100.0) 90.7 mmHg (75.0-100.0) Arterial Blood HCO3 17.9 mmol/L (22.0-26.0) *L 17.7 mmol/L (22.0-26.0) *L Arterial Blood Oxygen Saturation 94.7 % (95-100) L 96.2 % (95-100) Arterial Blood Base Excess -5.7 (-2-2) L -6.4 (-2-2) L Dave Test Positive Positive Phosphorus Level 1.7 MG/DL (2.5-4.9) L Magnesium Level 2.1 MG/DL (1.8-2.4) Gamma Glutamyl Transpeptidase 575 U/L (5-85) H Ammonia 67 umol/L (11-32) H C-Reactive Protein, Quantitative 6.4 mg/dL (0.00-0.90) H Pro-B-Type Natriuretic Peptide 175 pg/mL (0-125) H Objective HEAD AND NECK: No JVD. Sclera is jaundiced. LUNGS: Decreased breath sounds. CARDIOVASCULAR: Tachycardic. S1 and S2 with no gallop. ABDOMEN: Distended with ascites. EXTREMITIES: 2+ pitting edema. Felice Smith MD Jun 26, 2019 11:02
--- NOTE | 2019-06-26 12:16 | Pre-Procedure Note/Attestation ---
Pre-Procedure Note/Attestation Complete Prior to Procedure Planned Procedure: not applicable Procedure Narrative: paracentesis Indications for Procedure Pre-Operative Diagnosis: ascites Attestation I attest that I discussed the nature of the procedure; its benefits; risks and complications; and alternatives (and the risks and benefits of such alternatives ), prior to the procedure, with the patient (or the patient's legal community representative). I attest that, if there was a reasonable possibility of needing a blood transfusion, the patient (or the patient's legal community representative) was given the [facility] standardized written summary, pursuant to the [place] Lynnette Blood Safety Act ([place] Health and Safety Code # 1645, as amended). I attest that I re-evaluated the patient just prior to the surgery and that there has been no change in the patient's H&P, except as documented below: Jef Beatty MD Jun 26, 2019 12:16
--- NOTE | 2019-06-26 12:17 | Brief Operative Note ---
Immediate Post Operative Note Operative Note Pre-op Diagnosis: ascites Procedure: paracentesis Post-op Diagnosis: same as pre-op Surgeon: Ivan Stevens Specimen: yes - 50 ml fluid sent to lab Complications: none Fluids: none Implant(s) used?: No Jef Stevens MD Jun 26, 2019 12:17
--- NOTE | 2019-06-26 12:38 | Nephrology Progress Note ---
Assessment/Plan Problem List: (1) End-stage liver disease (2) Hepatorenal syndrome (3) Pancreatitis, alcoholic, acute (4) Acute alcoholic intoxication (5) Anemia (6) Respiratory failure Assessment Acute alcoholic intoxication End-stage liver disease Hepatorenal syndrome Pancreatitis, alcoholic, acute Anemia Plan k and Mag and phos supplement as needed has keith has RT (rectal tube) change IV to D5w 125 cc / h slow IV Fluids Correct lytes IV protonix lactulose Folate and Thiamin per GI transfuse per consultants Subjective ROS Limited/Unobtainable: Yes Objective Objective Last 24 Hour Vital Signs Date Time Temp Pulse Resp B/P (MAP) Pulse Ox O2 Delivery O2 Flow Rate FiO2 06/26/19 12:00 100.0 90 32 121/61 (81) 99 06/26/19 11:00 91 34 105/56 (72) 99 06/26/19 10:36 88 31 100 Facial 30 06/26/19 10:00 81 28 111/53 (72) 100 06/26/19 09:00 40 06/26/19 09:00 83 35 109/56 (73) 100 06/26/19 08:54 86 32 98 Facial 30 06/26/19 08:00 Nasal Cannula 2.0 06/26/19 08:00 85 06/26/19 08:00 98.3 86 31 113/50 (71) 94 06/26/19 07:00 81 33 102/83 (89) 95 06/26/19 06:59 85 24 100 Nasal Cannula 2.0 28 83 26 94 06/26/19 06:59 94 Nasal Cannula 2.0 28 06/26/19 06:00 82 25 129/54 (79) 92 06/26/19 05:00 83 25 126/55 (78) 93 06/26/19 04:00 Nasal Cannula 2.0 06/26/19 04:00 88 06/26/19 04:00 99.2 89 32 121/79 (93) 94 06/26/19 03:12 90 24 99 Nasal Cannula 2.0 28 89 24 95 06/26/19 03:00 96 35 135/71 (92) 96 06/26/19 02:00 94 29 139/69 (92) 95 06/26/19 01:00 94 35 120/56 (77) 96 06/26/19 00:00 Nasal Cannula 2.0 06/26/19 00:00 97 06/26/19 00:00 100.5 93 34 116/58 (77) 96 06/25/19 23:48 90 24 99 Nasal Cannula 2.0 28 92 26 96 06/25/19 23:00 91 34 127/65 (85) 97 06/25/19 22:00 89 34 121/59 (79) 99 06/25/19 21:00 91 33 93/49 (64) 99 06/25/19 20:00 73 06/25/19 20:00 98.9 91 31 92/76 (81) 98 06/25/19 20:00 Nasal Cannula 2.0 06/25/19 19:08 98 Nasal Cannula 2.0 28 06/25/19 19:08 93 22 99 Nasal Cannula 2.0 28 90 24 98 06/25/19 19:00 91 33 97/71 (80) 100 06/25/19 18:00 91 29 86/61 (69) 99 06/25/19 17:00 98 31 91/58 (69) 98 06/25/19 16:00 92 06/25/19 16:00 98.6 92 37 91/56 (68) 97 06/25/19 16:00 Nasal Cannula 2.0 06/25/19 15:00 94 34 89/50 (63) 98 06/25/19 14:30 93 22 99 Nasal Cannula 2.0 28 91 23 98 06/25/19 14:00 91 34 88/50 (63) 99 06/25/19 13:00 91 31 90/55 (67) 98 Intake and Output 06/25/19 06/26/19 19:00 07:00 Intake Total 1681.0 ml 1035.0 ml Output Total 910 ml 230 ml Balance 771.0 ml 805.0 ml IV Total 961.0 ml 975.0 ml Tube Feeding 720 ml 60 ml Output Urine Total 390 ml 230 ml Stool Total 520 ml Laboratory Tests 06/25/19 21:50: White Blood Count 16.7H, Red Blood Count 2.96L, Hemoglobin 8.9L, Hematocrit 27.9L, Mean Corpuscular Volume 94, Mean Corpuscular Hemoglobin 30.2, Mean Corpuscular Hemoglobin Concent 32.1, Red Cell Distribution Width 21.3H, Platelet Count 233, Mean Platelet Volume 6.9, Neutrophils (%) (Auto) 73.3, Lymphocytes (%) (Auto) 12.3L, Monocytes (%) (Auto) 9.3, Eosinophils (%) (Auto) 3.3H, Basophils (%) (Auto) 1.8, Prothrombin Time 17.4H, Prothromb Time International Ratio 1.7H, Sodium Level 165*H, Potassium Level 4.2, Chloride Level 131H, Carbon Dioxide Level 19L, Anion Gap 14, Blood Urea Nitrogen 33H, Creatinine 1.6H, Estimat Glomerular Filtration Rate 48.4, Glucose Level 137H, Calcium Level 8.7, Total Bilirubin 30.3H, Direct Bilirubin 24.1H, Aspartate Amino Transf (AST/SGOT) 178H, Alanine Aminotransferase (ALT/SGPT) 14, Alkaline Phosphatase 325H, Total Protein 6.1L, Albumin 2.0L, Globulin 4.1, Albumin/ Globulin Ratio 0.5L 06/25/19 22:35: Arterial Blood pH 7.423, Arterial Blood Partial Pressure CO2 28.1L, Arterial Blood Partial Pressure O2 77.5, Arterial Blood HCO3 17.9*L, Arterial Blood Oxygen Saturation 94.7L, Arterial Blood Base Excess -5.7L, Dave Test Positive 06/26/19 03:40: White Blood Count 17.7H, Red Blood Count 2.80L, Hemoglobin 8.4L, Hematocrit 27.7L, Mean Corpuscular Volume 99, Mean Corpuscular Hemoglobin 30.1, Mean Corpuscular Hemoglobin Concent 30.4L, Red Cell Distribution Width 24.7H, Platelet Count 205, Mean Platelet Volume 6.8, Neutrophils (%) (Auto) 70.5, Lymphocytes (%) (Auto) 12.6L, Monocytes (%) (Auto) 11.5H, Eosinophils (%) (Auto ) 3.6H, Basophils (%) (Auto) 1.9, Sodium Level 167*H, Potassium Level 3.4L, Chloride Level 134H, Carbon Dioxide Level 18L, Anion Gap 14, Blood Urea Nitrogen 38H, Creatinine 1.9H, Estimat Glomerular Filtration Rate 39.7, Glucose Level 133H, Calcium Level 8.9, Total Bilirubin 30.2H, Direct Bilirubin 24.4H, Aspartate Amino Transf (AST/SGOT) 171H, Alanine Aminotransferase (ALT/SGPT) 15, Alkaline Phosphatase 277H, Total Protein 5.8L, Albumin 2.2L, Globulin 3.6, Albumin/Globulin Ratio 0.6L, Phosphorus Level 1.7L, Magnesium Level 2.1, Gamma Glutamyl Transpeptidase 575H, Ammonia 67H, C-Reactive Protein, Quantitative 6.4H , Pro-B-Type Natriuretic Peptide 175H 06/26/19 09:30: Arterial Blood pH 7.391, Arterial Blood Partial Pressure CO2 29.9L, Arterial Blood Partial Pressure O2 90.7, Arterial Blood HCO3 17.7*L, Arterial Blood Oxygen Saturation 96.2, Arterial Blood Base Excess -6.4L, Dave Test Positive Height (Feet): 5 Height (Inches): 9.00 Weight (Pounds): 219 General Appearance: mild distress EENT: other - on BIPAP Cardiovascular: tachycardia Respiratory/Chest: decreased breath sounds Abdomen: distended Arthur Lay MD Jun 26, 2019 12:37
--- NOTE | 2019-06-26 13:26 | GI Progress Note ---
Assessment/Plan Problems: (1) End-stage liver disease ICD Codes: K72.90 - Hepatic failure, unspecified without coma SNOMED: 948430733 (2) Pancreatitis, alcoholic, acute ICD Codes: K85.20 - Alcohol induced acute pancreatitis without necrosis or infection SNOMED: 337885677, 8212373 Qualifiers: Qualified Codes: K85.20 - Alcohol induced acute pancreatitis without necrosis or infection (3) Hepatorenal syndrome ICD Codes: K76.7 - Hepatorenal syndrome SNOMED: 59591291, 3784959 (4) Acute alcoholic intoxication ICD Codes: F10.929 - Alcohol use, unspecified with intoxication, unspecified SNOMED: 73202153, 2886366 Qualifiers: Qualified Codes: F10.920 - Alcohol use, unspecified with intoxication, uncomplicated (5) Anemia ICD Codes: D64.9 - Anemia, unspecified SNOMED: 205508181 Qualifiers: Qualified Codes: D64.9 - Anemia, unspecified Status: not improved, deteriorating Status Narrative Discussed with Dr. Esposito. Assessment/Plan MELD score is 31, poor prognosis discriminant factor of 16, defer glucocorticoid therapy s/p paracentesis yielding 400cc, r/o SBP iv thiamine keep patient NPO at this time IVF per nephrology repeat labs cont lactulose + xifaxan s/p blood transfusion electrolyte correction The patient was seen and examined at bedside and all new and available data was reviewed in the patients chart. I agree with the above findings, impression and plan. (Patient seen earlier today. Signature stamp does not reflect patient encounter time.). - Merlin Esposito MD Subjective Subjective limited Objective Last 24 Hour Vital Signs Date Time Temp Pulse Resp B/P (MAP) Pulse Ox O2 Delivery O2 Flow Rate FiO2 06/26/19 13:00 99.2 96 28 125/76 (92) 98 06/26/19 12:59 96 40 98 Bi-Pap 30 06/26/19 12:57 92 28 99 Facial 30 06/26/19 12:00 100.0 90 32 121/61 (81) 99 06/26/19 12:00 40 06/26/19 12:00 Nasal Cannula 2.0 06/26/19 12:00 90 06/26/19 11:00 91 34 105/56 (72) 99 06/26/19 10:36 88 31 100 Facial 30 06/26/19 10:00 81 28 111/53 (72) 100 06/26/19 09:00 40 06/26/19 09:00 83 35 109/56 (73) 100 06/26/19 08:54 86 32 98 Facial 30 06/26/19 08:00 Nasal Cannula 2.0 06/26/19 08:00 85 06/26/19 08:00 98.3 86 31 113/50 (71) 94 06/26/19 07:00 81 33 102/83 (89) 95 06/26/19 06:59 85 24 100 Nasal Cannula 2.0 28 83 26 94 06/26/19 06:59 94 Nasal Cannula 2.0 28 06/26/19 06:00 82 25 129/54 (79) 92 06/26/19 05:00 83 25 126/55 (78) 93 06/26/19 04:00 Nasal Cannula 2.0 06/26/19 04:00 88 06/26/19 04:00 99.2 89 32 121/79 (93) 94 06/26/19 03:12 90 24 99 Nasal Cannula 2.0 28 89 24 95 06/26/19 03:00 96 35 135/71 (92) 96 06/26/19 02:00 94 29 139/69 (92) 95 06/26/19 01:00 94 35 120/56 (77) 96 06/26/19 00:00 Nasal Cannula 2.0 06/26/19 00:00 97 06/26/19 00:00 100.5 93 34 116/58 (77) 96 06/25/19 23:48 90 24 99 Nasal Cannula 2.0 28 92 26 96 06/25/19 23:00 91 34 127/65 (85) 97 06/25/19 22:00 89 34 121/59 (79) 99 06/25/19 21:00 91 33 93/49 (64) 99 06/25/19 20:00 73 06/25/19 20:00 98.9 91 31 92/76 (81) 98 06/25/19 20:00 Nasal Cannula 2.0 06/25/19 19:08 98 Nasal Cannula 2.0 28 06/25/19 19:08 93 22 99 Nasal Cannula 2.0 28 90 24 98 06/25/19 19:00 91 33 97/71 (80) 100 06/25/19 18:00 91 29 86/61 (69) 99 06/25/19 17:00 98 31 91/58 (69) 98 06/25/19 16:00 92 06/25/19 16:00 98.6 92 37 91/56 (68) 97 06/25/19 16:00 Nasal Cannula 2.0 06/25/19 15:00 94 34 89/50 (63) 98 06/25/19 14:30 93 22 99 Nasal Cannula 2.0 28 91 23 98 06/25/19 14:00 91 34 88/50 (63) 99 Intake and Output 06/25/19 06/26/19 19:00 07:00 Intake Total 1681.0 ml 1035.0 ml Output Total 910 ml 230 ml Balance 771.0 ml 805.0 ml IV Total 961.0 ml 975.0 ml Tube Feeding 720 ml 60 ml Output Urine Total 390 ml 230 ml Stool Total 520 ml Laboratory Tests Test 06/25/19 21:50 06/25/19 22:35 06/26/19 03:40 06/26/19 09:30 White Blood Count 16.7 K/UL (4.8-10.8) H 17.7 K/UL (4.8-10.8) H Red Blood Count 2.96 M/UL (4.70-6.10) L 2.80 M/UL (4.70-6.10) L Hemoglobin 8.9 G/DL (14.2-18.0) L 8.4 G/DL (14.2-18.0) L Hematocrit 27.9 % (42.0-52.0) L 27.7 % (42.0-52.0) L Mean Corpuscular Volume 94 FL (80-99) 99 FL (80-99) Mean Corpuscular Hemoglobin 30.2 PG (27.0-31.0) 30.1 PG (27.0-31.0) Mean Corpuscular Hemoglobin Concent 32.1 G/DL (32.0-36.0) 30.4 G/DL (32.0-36.0) L Red Cell Distribution Width 21.3 % (11.6-14.8) H 24.7 % (11.6-14.8) H Platelet Count 233 K/UL (150-450) 205 K/UL (150-450) Mean Platelet Volume 6.9 FL (6.5-10.1) 6.8 FL (6.5-10.1) Neutrophils (%) (Auto) 73.3 % (45.0-75.0) 70.5 % (45.0-75.0) Lymphocytes (%) (Auto) 12.3 % (20.0-45.0) L 12.6 % (20.0-45.0) L Monocytes (%) (Auto) 9.3 % (1.0-10.0) 11.5 % (1.0-10.0) H Eosinophils (%) (Auto) 3.3 % (0.0-3.0) H 3.6 % (0.0-3.0) H Basophils (%) (Auto) 1.8 % (0.0-2.0) 1.9 % (0.0-2.0) Prothrombin Time 17.4 SEC (9.30-11.50) H Prothromb Time International Ratio 1.7 (0.9-1.1) H Sodium Level 165 MMOL/L (136-145) *H 167 MMOL/L (136-145) *H Potassium Level 4.2 MMOL/L (3.5-5.1) 3.4 MMOL/L (3.5-5.1) L Chloride Level 131 MMOL/L (98-107) H 134 MMOL/L (98-107) H Carbon Dioxide Level 19 MMOL/L (21-32) L 18 MMOL/L (21-32) L Anion Gap 14 mmol/L (5-15) 14 mmol/L (5-15) Blood Urea Nitrogen 33 mg/dL (7-18) H 38 mg/dL (7-18) H Creatinine 1.6 MG/DL (0.55-1.30) H 1.9 MG/DL (0.55-1.30) H Estimat Glomerular Filtration Rate 48.4 mL/min (>60) 39.7 mL/min (>60) Glucose Level 137 MG/DL (74-106) H 133 MG/DL (74-106) H Calcium Level 8.7 MG/DL (8.5-10.1) 8.9 MG/DL (8.5-10.1) Total Bilirubin 30.3 MG/DL (0.2-1.0) H 30.2 MG/DL (0.2-1.0) H Direct Bilirubin 24.1 MG/DL (0.0-0.3) H 24.4 MG/DL (0.0-0.3) H Aspartate Amino Transf (AST/SGOT) 178 U/L (15-37) H 171 U/L (15-37) H Alanine Aminotransferase (ALT/SGPT) 14 U/L (12-78) 15 U/L (12-78) Alkaline Phosphatase 325 U/L (46-116) H 277 U/L (46-116) H Total Protein 6.1 G/DL (6.4-8.2) L 5.8 G/DL (6.4-8.2) L Albumin 2.0 G/DL (3.4-5.0) L 2.2 G/DL (3.4-5.0) L Globulin 4.1 g/dL 3.6 g/dL Albumin/Globulin Ratio 0.5 (1.0-2.7) L 0.6 (1.0-2.7) L Arterial Blood pH 7.423 (7.350-7.450) 7.391 (7.350-7.450) Arterial Blood Partial Pressure CO2 28.1 mmHg (35.0-45.0) L 29.9 mmHg (35.0-45.0) L Arterial Blood Partial Pressure O2 77.5 mmHg (75.0-100.0) 90.7 mmHg (75.0-100.0) Arterial Blood HCO3 17.9 mmol/L (22.0-26.0) *L 17.7 mmol/L (22.0-26.0) *L Arterial Blood Oxygen Saturation 94.7 % (95-100) L 96.2 % (95-100) Arterial Blood Base Excess -5.7 (-2-2) L -6.4 (-2-2) L Dave Test Positive Positive Phosphorus Level 1.7 MG/DL (2.5-4.9) L Magnesium Level 2.1 MG/DL (1.8-2.4) Gamma Glutamyl Transpeptidase 575 U/L (5-85) H Ammonia 67 umol/L (11-32) H C-Reactive Protein, Quantitative 6.4 mg/dL (0.00-0.90) H Pro-B-Type Natriuretic Peptide 175 pg/mL (0-125) H Test 06/26/19 12:10 Body Fluid Source Pending Body Fluid Volume Pending Body Fluid Appearance Pending Body Fluid RBC Pending Body Fluid Total Nucleated Cells Pending Body Fluid Polynuclear WBCs (%) Pending Body Fluid Mononuclear WBCs (%) Pending Body Fluid Mesothelial Cells (%) Pending Height (Feet): 5 Height (Inches): 9.00 Weight (Pounds): 219 General Appearance: lethargic Cardiovascular: normal rate Respiratory/Chest: normal breath sounds, no respiratory distress Abdominal Exam: normal bowel sounds, non tender, soft, distended, ascites Ayo Lamar NP Jun 26, 2019 13:26
--- NOTE | 2019-06-26 13:51 | Hematology/Onc Progress Note ---
Assessment/Plan Assessment/Plan Assessment and Recs; # Thrombocytopenia - potential causes multifactorial, does have a history of etoh abuse, cirrhosis of the liver, hepatosplenomegaly, portal HTN, coagulopathy noted as well --> Hep panel and HIV ordered (NEG) --> US abd does show, portal htn and cirrhosis ++ --> Peripheral smear ordered to evaluate for blasts /schistocytes reviewed and is negative --> abx and other meds have been reviewed --> ok for ppx if plt >50k w/ either heparin or lovenox --> Transfuse if Plt < 20k and fever, or if Plt < 10k without fever --> plt trend 80-->97-->117-->157k->216k # Anemia of chronic disease due to underlying chronic medical issues, multifactorial (myelosuprresion noted) --> Anemia workup has been reviewed, ferritin 297 --> No evidence of hemolysis is noted, peripheral smear has been reviewed. --> Hgb goal >7. Transfuse prn. --> Epogen or iron at this time is not particularly indicated --> Medications have been reviewed --> low threshold for gi evaluation in case has occult + --> hgb trend: 7.7-->8.2-->9->8.4 --> serum electrophoresis ordered 06/20 # Coagulopathy due to cirrhosis --> give Vitk as needed # Leukocytosiswith sepsis is on abx --> wbc 17k # Acute alcoholic intoxication --> etoh abuse history --> thiamine, folic acid, ivf # End-stage liver disease --> Hepatorenal syndrome r/o with renal, albumin prn # Pancreatitis, alcoholic, acute # Tachycardia The timing of this note does not necessarily reflect the time of the patient was seen. GREATLY APPRECIATE CONSULTATION. Subjective Constitutional: Denies: no symptoms, chills, fever, malaise, weakness, other HEENT: Denies: no symptoms, eye pain, blurred vision, tearing, double vision, ear pain, ear discharge, nose pain, nose congestion, throat pain, throat swelling, mouth pain, mouth swelling, other Respiratory: Denies: no symptoms, cough, shortness of breath, SOB with excertion, SOB at rest, sputum, wheezing, other Gastrointestinal/Abdominal: Denies: no symptoms, abdomen distended, abdominal pain, black stools, tarry stools, blood in stool, constipated, diarrhea, difficulty swallowing, nausea, poor appetite, poor fluid intake, rectal bleeding , vomiting, other Genitourinary: Denies: no symptoms, burning, discharge, frequency, flank pain, hematuria, incontinence, pain, urgency, other Neurologic/Psychiatric: Denies: no symptoms, anxiety, depressed, emotional problems, headache, numbness, paresthesia, pre-existing deficit, seizure, tingling, tremors, weakness, other Hematologic/Lymphatic: Denies: no symptoms, anemia, easy bleeding, easy bruising, adenopathy, other Allergies: Coded Allergies: No Known Allergies (Unverified , 06/20/19) Subjective 06/21: low k, ferritin 297, h/h stable, afebrile, blood transfused 06/22: in icu, on restraints, labs reviewed, no f/c, imaging reviewed 06/23: pain meds given, remains in icu, again in restraints, bili higher, inr as well, given vitk 06/25: no fevers, no chills, no bleeding, confused in bed in icu 06/26: no events to report, no bleeding, remains in icu, ++ bipap Objective Objective Current Medications Medications (Trade) Dose Ordered Sig/Gabriela Route PRN Reason Start Time Stop Time Status Last Admin Dose Admin Acetaminophen (Tylenol) 325 mg Q6H PRN NG Mild Pain/Temp > 100.5 06/22/19 10:00 07/22/19 09:59 06/25/19 02:51 Chlorhexidine Gluconate (Emilie-Hex 2%) 1 applic DAILY@1999 TOPIC 06/26/19 20:00 07/26/19 19:59 Dextrose 1,000 ml @ 125 mls/hr Q8H IV 06/26/19 09:00 07/25/19 08:59 06/26/19 09:03 Folic Acid (Folate) 5 mg DAILY NG 06/23/19 09:00 07/20/19 12:44 06/26/19 09:04 Heparin Sodium/ Sodium Chloride (Heparin 1000 units/500ml Premix) 1,000 unit ONCE PRN IV PICC LINE 06/26/19 10:15 06/27/19 23:59 Ipratropium Altheimer (Atrovent) 500 mcg Q4H PRN N Shortness of Breath 06/21/19 15:00 06/26/19 14:59 Ipratropium Altheimer (Atrovent) 500 mcg Q4HRT HHN 06/21/19 16:45 06/26/19 16:44 06/26/19 06:58 Lactulose (Cephulac) 30 gm FOUR TIMES A DAY NG 06/23/19 13:00 07/20/19 12:59 06/26/19 09:06 Lidocaine HCl (Xylocaine 1% 30ml) 30 ml ONCE PRN INJ PICC LINE 06/26/19 10:15 06/27/19 23:59 Lorazepam (Ativan) 1.5 mg Q4H PRN ORAL For Anxiety 06/26/19 11:00 07/03/19 10:59 Norepinephrine Bitartrate 4 mg/ Dextrose 250 ml @ 0 mls/hr Q24H PRN IV For hypotension 06/25/19 19:00 07/25/19 18:59 Pantoprazole (Protonix) 40 mg EVERY 12 HOURS IVP 06/21/19 21:00 07/20/19 20:59 06/26/19 09:04 Piperacillin Sod/ Tazobactam Sod 3.375 gm/Sodium Chloride 110 ml @ 27.5 mls/hr EVERY 8 HOURS IVPB 06/22/19 09:30 06/27/19 09:29 06/26/19 05:00 Potassium Phosphate 30 mm/ Sodium Chloride 285 ml @ 47.5 mls/hr ONCE ONCE IV 06/26/19 09:00 06/26/19 14:59 06/26/19 09:03 Rifaximin (Xifaxan) 550 mg EVERY 12 HOURS NG 06/22/19 21:00 06/29/19 20:59 06/26/19 09:04 Spironolactone (Aldactone) 25 mg DAILY NG 06/24/19 09:15 07/24/19 09:14 06/26/19 09:04 Thiamine HCl 100 mg/Dextrose 56 ml @ 112 mls/hr Q24H IVPB 06/21/19 15:00 07/20/19 14:59 06/25/19 15:12 Last 24 Hour Vital Signs Date Time Temp Pulse Resp B/P (MAP) Pulse Ox O2 Delivery O2 Flow Rate FiO2 06/26/19 13:00 99.2 96 28 125/76 (92) 98 06/26/19 12:59 96 40 98 Bi-Pap 30 06/26/19 12:57 92 28 99 Facial 30 06/26/19 12:00 100.0 90 32 121/61 (81) 99 06/26/19 12:00 40 06/26/19 12:00 Nasal Cannula 2.0 06/26/19 12:00 90 06/26/19 11:00 91 34 105/56 (72) 99 06/26/19 10:36 88 31 100 Facial 30 06/26/19 10:00 81 28 111/53 (72) 100 06/26/19 09:00 40 06/26/19 09:00 83 35 109/56 (73) 100 06/26/19 08:54 86 32 98 Facial 30 06/26/19 08:00 Nasal Cannula 2.0 06/26/19 08:00 85 06/26/19 08:00 98.3 86 31 113/50 (71) 94 06/26/19 07:00 81 33 102/83 (89) 95 06/26/19 06:59 85 24 100 Nasal Cannula 2.0 28 83 26 94 06/26/19 06:59 94 Nasal Cannula 2.0 28 06/26/19 06:00 82 25 129/54 (79) 92 06/26/19 05:00 83 25 126/55 (78) 93 06/26/19 04:00 Nasal Cannula 2.0 06/26/19 04:00 88 06/26/19 04:00 99.2 89 32 121/79 (93) 94 06/26/19 03:12 90 24 99 Nasal Cannula 2.0 28 89 24 95 06/26/19 03:00 96 35 135/71 (92) 96 06/26/19 02:00 94 29 139/69 (92) 95 06/26/19 01:00 94 35 120/56 (77) 96 06/26/19 00:00 Nasal Cannula 2.0 06/26/19 00:00 97 06/26/19 00:00 100.5 93 34 116/58 (77) 96 06/25/19 23:48 90 24 99 Nasal Cannula 2.0 28 92 26 96 06/25/19 23:00 91 34 127/65 (85) 97 06/25/19 22:00 89 34 121/59 (79) 99 06/25/19 21:00 91 33 93/49 (64) 99 06/25/19 20:00 73 06/25/19 20:00 98.9 91 31 92/76 (81) 98 06/25/19 20:00 Nasal Cannula 2.0 06/25/19 19:08 98 Nasal Cannula 2.0 28 06/25/19 19:08 93 22 99 Nasal Cannula 2.0 28 90 24 98 06/25/19 19:00 91 33 97/71 (80) 100 06/25/19 18:00 91 29 86/61 (69) 99 06/25/19 17:00 98 31 91/58 (69) 98 06/25/19 16:00 92 06/25/19 16:00 98.6 92 37 91/56 (68) 97 06/25/19 16:00 Nasal Cannula 2.0 06/25/19 15:00 94 34 89/50 (63) 98 06/25/19 14:30 93 22 99 Nasal Cannula 2.0 28 91 23 98 06/25/19 14:00 91 34 88/50 (63) 99 06/25/19 13:00 91 31 90/55 (67) 98 06/25/19 12:00 98.5 89 30 88/46 (60) 98 06/25/19 12:00 91 06/25/19 12:00 Nasal Cannula 2.0 06/25/19 11:36 84 27 99 Nasal Cannula 2.0 28 86 22 97 06/25/19 11:00 85 29 93/52 (66) 98 06/25/19 10:00 87 28 94/49 (64) 97 06/25/19 09:00 87 29 118/95 (103) 97 06/25/19 08:00 96.1 87 27 90/58 (69) 97 06/25/19 08:00 Nasal Cannula 2.0 06/25/19 08:00 82 06/25/19 07:48 95 Nasal Cannula 2.0 28 06/25/19 07:48 85 20 100 Nasal Cannula 2.0 28 80 18 95 06/25/19 07:00 84 30 91/60 (70) 98 06/25/19 04:00 Nasal Cannula 2.0 06/25/19 04:00 116 06/25/19 04:00 98.9 107 33 91/70 (77) 97 06/25/19 03:23 112 35 100 Nasal Cannula 2.0 28 111 30 98 06/25/19 03:21 98.9 06/25/19 03:00 107 36 99/58 (72) 100 06/25/19 02:00 107 39 99/58 (72) 98 06/25/19 01:00 110 36 91/50 (64) 98 06/25/19 00:00 Nasal Cannula 2.0 06/25/19 00:00 110 06/25/19 00:00 99.0 111 36 97/54 (68) 98 06/24/19 23:35 106 36 100 Nasal Cannula 2.0 28 104 35 100 06/24/19 23:00 107 36 99/58 (72) 98 06/24/19 22:00 105 36 99/61 (74) 98 06/24/19 21:00 99 24 98/58 (71) 98 06/24/19 20:00 95 06/24/19 20:00 99 31 102/69 (80) 97 06/24/19 20:00 Nasal Cannula 2.0 06/24/19 19:18 96 24 99 Nasal Cannula 2.0 28 94 24 99 06/24/19 19:17 99 Nasal Cannula 2.0 28 06/24/19 19:00 93 24 98/56 (70) 99 06/24/19 18:00 92 24 104/66 (79) 98 06/24/19 17:00 78 24 94/55 (68) 98 06/24/19 16:00 Nasal Cannula 3.0 06/24/19 16:00 83 06/24/19 16:00 97.8 79 21 102/61 (75) 98 06/24/19 15:03 85 18 100 Nasal Cannula 2.0 28 84 16 100 06/24/19 15:00 82 22 106/65 (79) 100 06/24/19 14:00 87 22 98/57 (71) 99 Intake and Output 06/25/19 06/26/19 19:00 07:00 Intake Total 1681.0 ml 1035.0 ml Output Total 910 ml 230 ml Balance 771.0 ml 805.0 ml IV Total 961.0 ml 975.0 ml Tube Feeding 720 ml 60 ml Output Urine Total 390 ml 230 ml Stool Total 520 ml Labs Test 06/23/19 20:47 06/24/19 04:18 06/24/19 19:00 06/25/19 04:15 Urine Opiates Screen Negative (NEGATIVE) Urine Barbiturates Screen Negative (NEGATIVE) Phencyclidine (PCP) Screen Negative (NEGATIVE) Urine Amphetamines Screen Negative (NEGATIVE) Urine Benzodiazepines Screen Positive (NEGATIVE) Urine Cocaine Screen Negative (NEGATIVE) Urine Marijuana (THC) Screen Negative (NEGATIVE) White Blood Count 18.2 K/UL (4.8-10.8) 17.8 K/UL (4.8-10.8) Red Blood Count 3.01 M/UL (4.70-6.10) 3.01 M/UL (4.70-6.10) Hemoglobin 9.1 G/DL (14.2-18.0) 9.0 G/DL (14.2-18.0) Hematocrit 28.8 % (42.0-52.0) 29.3 % (42.0-52.0) Mean Corpuscular Volume 96 FL (80-99) 97 FL (80-99) Mean Corpuscular Hemoglobin 30.1 PG (27.0-31.0) 29.9 PG (27.0-31.0) Mean Corpuscular Hemoglobin Concent 31.4 G/DL (32.0-36.0) 30.7 G/DL (32.0-36.0) Red Cell Distribution Width 20.4 % (11.6-14.8) 22.1 % (11.6-14.8) Platelet Count 196 K/UL (150-450) 216 K/UL (150-450) Mean Platelet Volume 6.8 FL (6.5-10.1) 6.1 FL (6.5-10.1) Neutrophils (%) (Auto) % (45.0-75.0) 72.8 % (45.0-75.0) Lymphocytes (%) (Auto) % (20.0-45.0) 9.9 % (20.0-45.0) Monocytes (%) (Auto) % (1.0-10.0) 12.4 % (1.0-10.0) Eosinophils (%) (Auto) % (0.0-3.0) 3.5 % (0.0-3.0) Basophils (%) (Auto) % (0.0-2.0) 1.5 % (0.0-2.0) Differential Total Cells Counted 100 Neutrophils % (Manual) 84 % (45-75) Lymphocytes % (Manual) 6 % (20-45) Monocytes % (Manual) 9 % (1-10) Eosinophils % (Manual) 1 % (0-3) Basophils % (Manual) 0 % (0-2) Band Neutrophils 0 % (0-8) Platelet Estimate Adequate Platelet Morphology Normal Polychromasia 1+ Hypochromasia 1+ Anisocytosis 3+ Prothrombin Time 20.0 SEC (9.30-11.50) 17.1 SEC (9.30-11.50) Prothromb Time International Ratio 1.9 (0.9-1.1) 1.6 (0.9-1.1) Sodium Level 158 MMOL/L (136-145) 166 MMOL/L (136-145) Potassium Level 2.5 MMOL/L (3.5-5.1) 3.5 MMOL/L (3.5-5.1) 3.7 MMOL/L (3.5-5.1) Chloride Level 124 MMOL/L (98-107) 134 MMOL/L (98-107) Carbon Dioxide Level 24 MMOL/L (21-32) 18 MMOL/L (21-32) Anion Gap 10 mmol/L (5-15) 14 mmol/L (5-15) Blood Urea Nitrogen 27 mg/dL (7-18) 26 mg/dL (7-18) Creatinine 1.5 MG/DL (0.55-1.30) 1.4 MG/DL (0.55-1.30) Estimat Glomerular Filtration Rate 52.1 mL/min (>60) 56.4 mL/min (>60) Glucose Level 119 MG/DL (74-106) 158 MG/DL (74-106) Uric Acid 4.7 MG/DL (2.6-7.2) 3.5 MG/DL (2.6-7.2) Calcium Level 8.5 MG/DL (8.5-10.1) 8.5 MG/DL (8.5-10.1) Phosphorus Level 2.1 MG/DL (2.5-4.9) 0.7 MG/DL (2.5-4.9) Magnesium Level 1.7 MG/DL (1.8-2.4) 2.1 MG/DL (1.8-2.4) Total Bilirubin 27.5 MG/DL (0.2-1.0) 27.6 MG/DL (0.2-1.0) Direct Bilirubin 23.1 MG/DL (0.0-0.3) 22.9 MG/DL (0.0-0.3) Gamma Glutamyl Transpeptidase 1052 U/L (5-85) Aspartate Amino Transf (AST/SGOT) 132 U/L (15-37) 151 U/L (15-37) Alanine Aminotransferase (ALT/SGPT) 15 U/L (12-78) 16 U/L (12-78) Alkaline Phosphatase 382 U/L (46-116) 352 U/L (46-116) Ammonia 72 umol/L (11-32) Total Protein 5.9 G/DL (6.4-8.2) 5.4 G/DL (6.4-8.2) Albumin 1.8 G/DL (3.4-5.0) 1.7 G/DL (3.4-5.0) Globulin 4.1 g/dL 3.7 g/dL Albumin/Globulin Ratio 0.4 (1.0-2.7) 0.5 (1.0-2.7) Vitamin B12 Level 1705 PG/ML (193-986) Folate 13.8 NG/ML (8.6-58.9) C-Reactive Protein, Quantitative 5.9 mg/dL (0.00-0.90) Pro-B-Type Natriuretic Peptide 146 pg/mL (0-125) Test 06/25/19 07:55 06/25/19 21:50 06/25/19 22:35 06/26/19 03:40 Ammonia 66 umol/L (11-32) 67 umol/L (11-32) White Blood Count 16.7 K/UL (4.8-10.8) 17.7 K/UL (4.8-10.8) Red Blood Count 2.96 M/UL (4.70-6.10) 2.80 M/UL (4.70-6.10) Hemoglobin 8.9 G/DL (14.2-18.0) 8.4 G/DL (14.2-18.0) Hematocrit 27.9 % (42.0-52.0) 27.7 % (42.0-52.0) Mean Corpuscular Volume 94 FL (80-99) 99 FL (80-99) Mean Corpuscular Hemoglobin 30.2 PG (27.0-31.0) 30.1 PG (27.0-31.0) Mean Corpuscular Hemoglobin Concent 32.1 G/DL (32.0-36.0) 30.4 G/DL (32.0-36.0) Red Cell Distribution Width 21.3 % (11.6-14.8) 24.7 % (11.6-14.8) Platelet Count 233 K/UL (150-450) 205 K/UL (150-450) Mean Platelet Volume 6.9 FL (6.5-10.1) 6.8 FL (6.5-10.1) Neutrophils (%) (Auto) 73.3 % (45.0-75.0) 70.5 % (45.0-75.0) Lymphocytes (%) (Auto) 12.3 % (20.0-45.0) 12.6 % (20.0-45.0) Monocytes (%) (Auto) 9.3 % (1.0-10.0) 11.5 % (1.0-10.0) Eosinophils (%) (Auto) 3.3 % (0.0-3.0) 3.6 % (0.0-3.0) Basophils (%) (Auto) 1.8 % (0.0-2.0) 1.9 % (0.0-2.0) Prothrombin Time 17.4 SEC (9.30-11.50) Prothromb Time International Ratio 1.7 (0.9-1.1) Sodium Level 165 MMOL/L (136-145) 167 MMOL/L (136-145) Potassium Level 4.2 MMOL/L (3.5-5.1) 3.4 MMOL/L (3.5-5.1) Chloride Level 131 MMOL/L (98-107) 134 MMOL/L (98-107) Carbon Dioxide Level 19 MMOL/L (21-32) 18 MMOL/L (21-32) Anion Gap 14 mmol/L (5-15) 14 mmol/L (5-15) Blood Urea Nitrogen 33 mg/dL (7-18) 38 mg/dL (7-18) Creatinine 1.6 MG/DL (0.55-1.30) 1.9 MG/DL (0.55-1.30) Estimat Glomerular Filtration Rate 48.4 mL/min (>60) 39.7 mL/min (>60) Glucose Level 137 MG/DL (74-106) 133 MG/DL (74-106) Calcium Level 8.7 MG/DL (8.5-10.1) 8.9 MG/DL (8.5-10.1) Total Bilirubin 30.3 MG/DL (0.2-1.0) 30.2 MG/DL (0.2-1.0) Direct Bilirubin 24.1 MG/DL (0.0-0.3) 24.4 MG/DL (0.0-0.3) Aspartate Amino Transf (AST/SGOT) 178 U/L (15-37) 171 U/L (15-37) Alanine Aminotransferase (ALT/SGPT) 14 U/L (12-78) 15 U/L (12-78) Alkaline Phosphatase 325 U/L (46-116) 277 U/L (46-116) Total Protein 6.1 G/DL (6.4-8.2) 5.8 G/DL (6.4-8.2) Albumin 2.0 G/DL (3.4-5.0) 2.2 G/DL (3.4-5.0) Globulin 4.1 g/dL 3.6 g/dL Albumin/Globulin Ratio 0.5 (1.0-2.7) 0.6 (1.0-2.7) Arterial Blood pH 7.423 (7.350-7.450) Arterial Blood Partial Pressure CO2 28.1 mmHg (35.0-45.0) Arterial Blood Partial Pressure O2 77.5 mmHg (75.0-100.0) Arterial Blood HCO3 17.9 mmol/L (22.0-26.0) Arterial Blood Oxygen Saturation 94.7 % (95-100) Arterial Blood Base Excess -5.7 (-2-2) Dave Test Positive Phosphorus Level 1.7 MG/DL (2.5-4.9) Magnesium Level 2.1 MG/DL (1.8-2.4) Gamma Glutamyl Transpeptidase 575 U/L (5-85) C-Reactive Protein, Quantitative 6.4 mg/dL (0.00-0.90) Pro-B-Type Natriuretic Peptide 175 pg/mL (0-125) Test 06/26/19 09:30 06/26/19 12:10 Arterial Blood pH 7.391 (7.350-7.450) Arterial Blood Partial Pressure CO2 29.9 mmHg (35.0-45.0) Arterial Blood Partial Pressure O2 90.7 mmHg (75.0-100.0) Arterial Blood HCO3 17.7 mmol/L (22.0-26.0) Arterial Blood Oxygen Saturation 96.2 % (95-100) Arterial Blood Base Excess -6.4 (-2-2) Dave Test Positive Height (Feet): 5 Height (Inches): 9.00 Weight (Pounds): 219 Objective Physical Exam: Vitals: reviewed General Appearance: NAD HEENT: normocephalic, atraumatic ++ icterus jaundice Neck: non-tender, normal alignment Respiratory/Chest: normal breath sounds bilaterally++ bipap Cardiovascular/Chest: normal peripheral pulses, normal rate Abdomen: normal bowel sounds, soft,+ peg Extremities: normal range of motion Marty Kebede MD Jun 26, 2019 13:51
[2019-06-26] MEDS: Thiamine HCl 100 MG in D5W 55 ML IVPB SCH (15:27)
--- NOTE | 2019-06-26 16:19 | Diagnostic Imaging Report ---
Indications: Ascites Technique: Ultrasound used to localize optimal puncture site. Sterile prepping and draping right lower quadrant. Local anesthesia with 1% lidocaine. Under real-time ultrasound guidance, puncture peritoneal space using paracentesis needle. Stylet removed. Catheter placed to vacuum bottle suction. Total 0.4 liters of clear yellow fluid aspirated. Patient tolerated procedure well, without immediate complication. Findings: Followup sonography demonstrates complete resolution of peritoneal fluid. Impression: Successful ultrasound-guided paracentesis, yielding 0.4 liters of fluid
--- NOTE | 2019-06-26 17:49 | Diagnostic Imaging Report ---
Indications: Needs long-term IV access Technique: Procedure performed at bedside. Procedural timeout performed. Ultrasound confirms patent compressible left basilic vein. Total sterile technique, including sterile probe cover and sterile gel, sterile gloves, hand hygiene, hat, mask,, sterile gown, large sterile drape, and preparation with 2% chlorhexidine utilized. Local anesthesia with 1% lidocaine. Under real-time ultrasound guidance, puncture basilic vein using 21-gauge needle, passage 0.018 guidewire, exchange for 4 Portuguese peel-away sheath. 4 Portuguese Bard dual-lumen power PICC cut to 49 cm. It was inserted through the peel-away sheath. Peel-away sheath and guidewire removed. Catheter fixed to the skin. Both catheter ports aspirated and flushed. Patient tolerated procedure well, without immediate complication. Followup chest x-ray obtained, documents catheter tip position at the deep right atrium. This was withdrawn and subsequent images demonstrate satisfactory position at the cavoatrial junction Impression: Successful bedside placement of left arm PICC under sonographic guidance, as described above.
--- NOTE | 2019-06-26 18:33 | Pulmonolgy Critical Care Note ---
Critical Care - Asmt/Plan Assessment/Plan: Pulmonary CCM Consultation HPI This is a 39-year-old male who is an alcoholic with significant fatty liver on abdominal CT and alcoholic hepatitis, DF 16, not candidate for steroids currently per GI. He has been drinking heavily for 3 months straight. 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 Noted to have Hepatic Encephalopathy and Hepatorenal Syndrome. No bleeding. No nausea no vomiting. Nothing made it better. Movement or exertion makes it worse. Noted to have significant hypokalemia and alkalosis, evidence of sepsis, source unclear - some bacteria in urine, mid ascites - possible SBP, dilated Gallbladder On PRN BiPAP, has NGT and on Lactulose Reduced urine outpur, Cr 1.9 Allergies: No Known Allergies Past Medical History: Alcohol abuse All Other Systems: negative except mentioned in HPI Physical Exam Vital Signs Noted General Appearance: Jaundiced, ill appearing, less somnolent Head: normocephalic, atraumatic Eyes: bilateral eye PERRL, bilateral eye EOMI, bilateral eye scleral icterus ENT: moist mm Neck: no masses, no LN Respiratory: chest non-tender, lungs clear, normal breath sounds Cardiovascular: regular rate, rhythm, Normal HS1, HS2, no murmur, tachycardia Gastrointestinal: Obese, hepatomegaly, some tenderness RUQ, normal bowel sounds , no mass, no rebound Musculoskeletal: moves all limbs Neurologic: responds to commands, drowsy Skin: jaundiced, moderate edema Impression: Acute alcoholic intoxication Severe Sepsis Alcoholic Hepatitis Possible Cirrhosis Metabolic and respiratory alkalosis Possible Portal Hypertension Hepatorenal syndrome - worsening renal function Hypernatremia Pancreatitis, alcoholic, acute Anemia Monitor CXR/ABG Plan ICU management NPO except meds IV antibiotics per ID Aspiration precautions GI/Renal following IVF per Nephrology Pressors PRN Intubate PRN for airway protection Transfuse PRN Thiamine Monitor labs K supplementation Adjust FIO2 - sats 90-96% Labs: noted EKG: Rate: tachycardiac Rhythm: NSR ST Segments: other - NSST changes Chest X-Ray: hypoventilatory exam, no consolidation, no effusion, no pneumothorax, no acute cardiopulmonary disease CT abdomen pelvis: Severely enlarged liver and fatty liver. Mild ascites. Critical Care - Objective Last 24 Hour Vital Signs Date Time Temp Pulse Resp B/P (MAP) Pulse Ox O2 Delivery O2 Flow Rate FiO2 06/26/19 18:00 80 25 104/72 (83) 98 06/26/19 17:19 72 24 99 Facial 30 06/26/19 17:00 77 25 96/74 (81) 99 06/26/19 16:00 96.9 77 25 112/60 (77) 98 06/26/19 16:00 73 06/26/19 16:00 Nasal Cannula 2.0 06/26/19 16:00 30 06/26/19 15:15 79 28 100 Facial 30 78 35 100 Bi-Pap 30 06/26/19 15:00 80 26 121/96 (104) 98 06/26/19 14:00 85 30 126/58 (80) 99 06/26/19 13:00 99.2 96 28 125/76 (92) 98 06/26/19 13:00 30 06/26/19 12:59 96 40 98 Bi-Pap 30 06/26/19 12:57 92 28 99 Facial 30 06/26/19 12:00 100.0 90 32 121/61 (81) 99 06/26/19 12:00 40 06/26/19 12:00 Nasal Cannula 2.0 06/26/19 12:00 90 06/26/19 11:00 91 34 105/56 (72) 99 06/26/19 10:36 88 31 100 Facial 30 06/26/19 10:00 81 28 111/53 (72) 100 06/26/19 09:00 40 06/26/19 09:00 83 35 109/56 (73) 100 06/26/19 08:54 86 32 98 Facial 30 06/26/19 08:00 Nasal Cannula 2.0 06/26/19 08:00 85 06/26/19 08:00 98.3 86 31 113/50 (71) 94 06/26/19 07:00 81 33 102/83 (89) 95 06/26/19 06:59 85 24 100 Nasal Cannula 2.0 28 83 26 94 06/26/19 06:59 94 Nasal Cannula 2.0 28 06/26/19 06:00 82 25 129/54 (79) 92 06/26/19 05:00 83 25 126/55 (78) 93 06/26/19 04:00 Nasal Cannula 2.0 06/26/19 04:00 88 06/26/19 04:00 99.2 89 32 121/79 (93) 94 06/26/19 03:12 90 24 99 Nasal Cannula 2.0 28 89 24 95 06/26/19 03:00 96 35 135/71 (92) 96 06/26/19 02:00 94 29 139/69 (92) 95 06/26/19 01:00 94 35 120/56 (77) 96 06/26/19 00:00 Nasal Cannula 2.0 06/26/19 00:00 97 06/26/19 00:00 100.5 93 34 116/58 (77) 96 06/25/19 23:48 90 24 99 Nasal Cannula 2.0 28 92 26 96 06/25/19 23:00 91 34 127/65 (85) 97 06/25/19 22:00 89 34 121/59 (79) 99 06/25/19 21:00 91 33 93/49 (64) 99 06/25/19 20:00 73 06/25/19 20:00 98.9 91 31 92/76 (81) 98 06/25/19 20:00 Nasal Cannula 2.0 06/25/19 19:08 98 Nasal Cannula 2.0 28 06/25/19 19:08 93 22 99 Nasal Cannula 2.0 28 90 24 98 06/25/19 19:00 91 33 97/71 (80) 100 Critical Care - Subjective ROS Limited/Unobtainable: No FI02: 30 Sputum Amount: None I&O: Intake and Output 06/25/19 06/26/19 19:00 07:00 Intake Total 1681.0 ml 1035.0 ml Output Total 910 ml 230 ml Balance 771.0 ml 805.0 ml IV Total 961.0 ml 975.0 ml Tube Feeding 720 ml 60 ml Output Urine Total 390 ml 230 ml Stool Total 520 ml Quang Domingo MD Jun 26, 2019 18:33
[2019-06-26] MEDS: Dyna-Hex 2% Top Sol 2oz TOPIC SCH (20:00)
--- NOTE | 2019-06-26 22:35 | General Progress Note ---
Assessment/Plan Problem List: (1) Anemia ICD Codes: D64.9 - Anemia, unspecified SNOMED: 014117061 Qualifiers: Qualified Codes: D64.9 - Anemia, unspecified (2) Acute alcoholic intoxication ICD Codes: F10.929 - Alcohol use, unspecified with intoxication, unspecified SNOMED: 96696983, 2227226 Qualifiers: Qualified Codes: F10.920 - Alcohol use, unspecified with intoxication, uncomplicated (3) End-stage liver disease ICD Codes: K72.90 - Hepatic failure, unspecified without coma SNOMED: 851144513 (4) Hepatorenal syndrome ICD Codes: K76.7 - Hepatorenal syndrome SNOMED: 56046755, 1377500 (5) Pancreatitis, alcoholic, acute ICD Codes: K85.20 - Alcohol induced acute pancreatitis without necrosis or infection SNOMED: 080552071, 1212582 Qualifiers: Qualified Codes: K85.20 - Alcohol induced acute pancreatitis without necrosis or infection (6) Respiratory failure ICD Codes: J96.90 - Respiratory failure, unspecified, unspecified whether with hypoxia or hypercapnia SNOMED: 425923909 Status: not improved, deteriorating Assessment/Plan: respiratory failure etoh cirrhosis jaundice afebrile poor prognosis ams on bipap very poor prognosis etoh abuse Subjective ROS Limited/Unobtainable: Yes Allergies: Coded Allergies: No Known Allergies (Unverified , 06/20/19) Objective Last 24 Hour Vital Signs Date Time Temp Pulse Resp B/P (MAP) Pulse Ox O2 Delivery O2 Flow Rate FiO2 06/26/19 21:16 78 30 97 Facial 30 06/26/19 21:00 72 26 107/57 (74) 97 06/26/19 20:00 30 06/26/19 20:00 Nasal Cannula 2.0 06/26/19 20:00 72 06/26/19 20:00 98.1 72 24 103/54 (70) 99 06/26/19 19:14 99 Bi-Pap 30 06/26/19 19:12 73 24 99 Facial 30 06/26/19 19:00 74 25 102/47 (65) 99 06/26/19 18:00 80 25 104/72 (83) 98 06/26/19 17:19 72 24 99 Facial 30 06/26/19 17:00 77 25 96/74 (81) 99 06/26/19 16:00 96.9 77 25 112/60 (77) 98 06/26/19 16:00 73 06/26/19 16:00 Nasal Cannula 2.0 06/26/19 16:00 30 06/26/19 15:15 79 28 100 Facial 30 78 35 100 Bi-Pap 30 06/26/19 15:00 80 26 121/96 (104) 98 06/26/19 14:00 85 30 126/58 (80) 99 06/26/19 13:00 99.2 96 28 125/76 (92) 98 06/26/19 13:00 30 06/26/19 12:59 96 40 98 Bi-Pap 30 06/26/19 12:57 92 28 99 Facial 30 06/26/19 12:00 100.0 90 32 121/61 (81) 99 06/26/19 12:00 40 06/26/19 12:00 Nasal Cannula 2.0 06/26/19 12:00 90 06/26/19 11:00 91 34 105/56 (72) 99 06/26/19 10:36 88 31 100 Facial 30 06/26/19 10:00 81 28 111/53 (72) 100 06/26/19 09:00 40 06/26/19 09:00 83 35 109/56 (73) 100 06/26/19 08:54 86 32 98 Facial 30 06/26/19 08:00 Nasal Cannula 2.0 06/26/19 08:00 85 06/26/19 08:00 98.3 86 31 113/50 (71) 94 06/26/19 07:00 81 33 102/83 (89) 95 06/26/19 06:59 85 24 100 Nasal Cannula 2.0 28 83 26 94 06/26/19 06:59 94 Nasal Cannula 2.0 28 06/26/19 06:00 82 25 129/54 (79) 92 06/26/19 05:00 83 25 126/55 (78) 93 06/26/19 04:00 Nasal Cannula 2.0 06/26/19 04:00 88 06/26/19 04:00 99.2 89 32 121/79 (93) 94 06/26/19 03:12 90 24 99 Nasal Cannula 2.0 28 89 24 95 06/26/19 03:00 96 35 135/71 (92) 96 9/3/19 02:00 94 29 139/69 (92) 95 06/26/19 01:00 94 35 120/56 (77) 96 06/26/19 00:00 Nasal Cannula 2.0 06/26/19 00:00 97 06/26/19 00:00 100.5 93 34 116/58 (77) 96 06/25/19 23:48 90 24 99 Nasal Cannula 2.0 28 92 26 96 06/25/19 23:00 91 34 127/65 (85) 97 Intake and Output 06/25/19 06/26/19 19:00 07:00 Intake Total 1681.0 ml 1035.0 ml Output Total 910 ml 230 ml Balance 771.0 ml 805.0 ml IV Total 961.0 ml 975.0 ml Tube Feeding 720 ml 60 ml Output Urine Total 390 ml 230 ml Stool Total 520 ml Laboratory Tests 06/25/19 22:35: Arterial Blood pH 7.423, Arterial Blood Partial Pressure CO2 28.1L, Arterial Blood Partial Pressure O2 77.5, Arterial Blood HCO3 17.9*L, Arterial Blood Oxygen Saturation 94.7L, Arterial Blood Base Excess -5.7L, Dave Test Positive 06/26/19 03:40: White Blood Count 17.7H, Red Blood Count 2.80L, Hemoglobin 8.4L, Hematocrit 27.7L, Mean Corpuscular Volume 99, Mean Corpuscular Hemoglobin 30.1, Mean Corpuscular Hemoglobin Concent 30.4L, Red Cell Distribution Width 24.7H, Platelet Count 205, Mean Platelet Volume 6.8, Neutrophils (%) (Auto) 70.5, Lymphocytes (%) (Auto) 12.6L, Monocytes (%) (Auto) 11.5H, Eosinophils (%) (Auto ) 3.6H, Basophils (%) (Auto) 1.9, Sodium Level 167*H, Potassium Level 3.4L, Chloride Level 134H, Carbon Dioxide Level 18L, Anion Gap 14, Blood Urea Nitrogen 38H, Creatinine 1.9H, Estimat Glomerular Filtration Rate 39.7, Glucose Level 133H, Calcium Level 8.9, Phosphorus Level 1.7L, Magnesium Level 2.1, Total Bilirubin 30.2H, Direct Bilirubin 24.4H, Gamma Glutamyl Transpeptidase 575H, Aspartate Amino Transf (AST/SGOT) 171H, Alanine Aminotransferase (ALT/SGPT ) 15, Alkaline Phosphatase 277H, Ammonia 67H, C-Reactive Protein, Quantitative 6.4H, Pro-B-Type Natriuretic Peptide 175H, Total Protein 5.8L, Albumin 2.2L, Globulin 3.6, Albumin/Globulin Ratio 0.6L 06/26/19 09:30: Arterial Blood pH 7.391, Arterial Blood Partial Pressure CO2 29.9L, Arterial Blood Partial Pressure O2 90.7, Arterial Blood HCO3 17.7*L, Arterial Blood Oxygen Saturation 96.2, Arterial Blood Base Excess -6.4L, Dave Test Positive 06/26/19 12:10: Body Fluid Source Peritoneal, Body Fluid Volume 23, Body Fluid Appearance Slightly cloudy, Body Fluid RBC 82, Body Fluid Total Nucleated Cells 13, Body Fluid Polynuclear WBCs (%) 0, Body Fluid Mononuclear WBCs (%) 100, Body Fluid Mesothelial Cells (%) 0 Height (Feet): 5 Height (Inches): 9.00 Weight (Pounds): 219 General Appearance: lethargic, confused Deejay Saldaña MD Jun 26, 2019 22:35
[2019-06-27] VITALS (24 sets, daily range): BP systolic 79–115; BP diastolic 41–82
--- NOTE | 2019-06-27 02:45 | Consultation ---
DATE OF CONSULTATION: 06/26/2019 HISTORY OF PRESENT ILLNESS: This is a 39-year-old male with a history of alcohol dependence, end-stage renal disease, pancreatitis, and hepatorenal syndrome who has been admitted to the hospital for medical stabilization. The patient is admitted to the ICU. He is confused and disoriented, not able to be engaged during the evaluation. The patient is severely agitated. Ativan IV has made the patient hypotensive. Therefore, I will change the patient's IV to p.o. The patient is unable to provide any history. Unable to understand, process, or communicate the information given to him. PAST PSYCHIATRIC HISTORY: Unknown. PAST MEDICAL HISTORY: Significant for pancreatitis, cirrhosis, thrombocytopenia, and failure to thrive. ALLERGIES: No known drug allergies. SUBSTANCE ABUSE HISTORY: Significant for alcohol dependence. His urine toxicology is positive for benzodiazepine as well as alcohol. MENTAL STATUS EXAMINATION: The patient is having waxing and waning consciousness, has psychomotor agitation. Mood is agitated. Affect is flat. Thought process is concrete. Thought content, no known suicidal ideation. ASSESSMENT: [place] I Alcohol dependence. Alcohol withdrawal. Acute toxic encephalopathy. [place] II Deferred. [place] III Alcoholic pancreatitis. Cirrhosis. [place] IV Unknown. [place] V 10. PLAN: 1. We will discontinue the Ativan IV. 2. We will start Ativan p.o. that will bypass the liver. 3. Continue the thiamine. 4. Continue the folate. 5. Recommend assess a code status. Kamilah Baker M.D. DR: RENETTA JOB#: [id number] CC: RYANNE
[2019-06-27 05:10] LABS: BASOPHILS % (AUTO) 2.1 % (0.0-2.0); EOSINOPHILS % (AUTO) 3.2 % (0.0-3.0); HEMATOCRIT 27.2 % (42.0-52.0); HEMOGLOBIN 8.3 G/DL (14.2-18.0); LYMPHOCYTES % (AUTO) 13.1 % (20.0-45.0); MEAN CORPUSCULAR VOLUME 99 FL (80-99); MONOCYTES % (AUTO) 8.7 % (1.0-10.0); NEUTROPHILS % (AUTO) 72.9 % (45.0-75.0); PLATELET COUNT 156 K/UL (150-450); RED BLOOD COUNT 2.73 M/UL (4.70-6.10); RED CELL DISTRIBUTION WIDTH 23.5 % (11.6-14.8); WHITE BLOOD COUNT 13.9 K/UL (4.8-10.8)
[2019-06-27 05:40] LABS: ALANINE AMINOTRANSFERASE 19 U/L (12-78); ALBUMIN 1.7 G/DL (3.4-5.0); ALBUMIN/GLOBULIN RATIO 0.5 (1.0-2.7); ALKALINE PHOSPHATASE 245 U/L (46-116); ANION GAP 15 mmol/L (5-15); ASPARTATE AMINO TRANSFERASE 174 U/L (15-37); BILIRUBIN,TOTAL 28.5 MG/DL (0.2-1.0); BLOOD UREA NITROGEN 42 mg/dL (7-18); CALCIUM 8.6 MG/DL (8.5-10.1); CARBON DIOXIDE 19 MMOL/L (21-32); CHLORIDE 133 MMOL/L (98-107); CREATININE 1.8 MG/DL (0.55-1.30); PHOSPHORUS 3.2 MG/DL (2.5-4.9); POTASSIUM 3.1 MMOL/L (3.5-5.1)
[2019-06-27 05:44] LABS: SODIUM 166 MMOL/L (136-145)
[2019-06-27] MEDS: Piperacillin/Tazobactam 3.375 GM in NS 110 ML IVPB SCH (05:47)
[2019-06-27 05:50] LABS: BILIRUBIN,DIRECT 23.3 MG/DL (0.0-0.3)
--- NOTE | 2019-06-27 07:54 | General Progress Note ---
Assessment/Plan Problem List: (1) Pancreatitis, alcoholic, acute ICD Codes: K85.20 - Alcohol induced acute pancreatitis without necrosis or infection SNOMED: 725053747, 8530640 Qualifiers: Qualified Codes: K85.20 - Alcohol induced acute pancreatitis without necrosis or infection (2) Acute alcoholic intoxication ICD Codes: F10.929 - Alcohol use, unspecified with intoxication, unspecified SNOMED: 69833542, 6816901 Qualifiers: Qualified Codes: F10.920 - Alcohol use, unspecified with intoxication, uncomplicated (3) Anemia ICD Codes: D64.9 - Anemia, unspecified SNOMED: 901414803 Qualifiers: Qualified Codes: D64.9 - Anemia, unspecified Status: not improved, deteriorating Assessment/Plan: discriminant factor of 16 iv thiamine>>> will dc start NGTF>>> Glucerna 1.5 at 45 cc repeat labs fu nephrology cont lactulose xifaxan s/p blood transfusion paracentesis PRN Subjective ROS Limited/Unobtainable: No Allergies: Coded Allergies: No Known Allergies (Unverified , 06/20/19) Objective Last 24 Hour Vital Signs Date Time Temp Pulse Resp B/P (MAP) Pulse Ox O2 Delivery O2 Flow Rate FiO2 06/27/19 07:09 99 Nasal Cannula 2.0 28 06/27/19 06:00 69 24 101/50 (67) 99 06/27/19 05:11 73 24 99 Facial 30 06/27/19 05:00 73 24 105/54 (71) 99 06/27/19 04:00 72 06/27/19 04:00 98.2 68 24 102/64 (77) 98 06/27/19 04:00 30 06/27/19 04:00 Nasal Cannula 2.0 06/27/19 03:18 70 24 99 Facial 30 06/27/19 03:00 71 25 104/74 (84) 99 06/27/19 02:00 71 25 115/54 (74) 99 06/27/19 01:22 71 22 99 Facial 30 06/27/19 01:00 67 23 102/45 (64) 99 06/27/19 00:00 Nasal Cannula 2.0 06/27/19 00:00 71 06/27/19 00:00 98.3 71 25 111/53 (72) 99 06/27/19 00:00 30 9/3/19 23:20 64 25 99 Facial 30 06/26/19 23:00 75 29 101/56 (71) 98 06/26/19 22:00 72 27 111/48 (69) 98 06/26/19 21:16 78 30 97 Facial 30 06/26/19 21:00 72 26 107/57 (74) 97 06/26/19 20:00 30 06/26/19 20:00 Nasal Cannula 2.0 06/26/19 20:00 72 06/26/19 20:00 98.1 72 24 103/54 (70) 99 06/26/19 19:14 99 Bi-Pap 30 06/26/19 19:12 73 24 99 Facial 30 06/26/19 19:00 74 25 102/47 (65) 99 06/26/19 18:00 80 25 104/72 (83) 98 06/26/19 17:19 72 24 99 Facial 30 06/26/19 17:00 77 25 96/74 (81) 99 06/26/19 16:00 96.9 77 25 112/60 (77) 98 06/26/19 16:00 73 06/26/19 16:00 Nasal Cannula 2.0 06/26/19 16:00 30 06/26/19 15:15 79 28 100 Facial 30 78 35 100 Bi-Pap 30 06/26/19 15:00 80 26 121/96 (104) 98 06/26/19 14:00 85 30 126/58 (80) 99 06/26/19 13:00 99.2 96 28 125/76 (92) 98 06/26/19 13:00 30 06/26/19 12:59 96 40 98 Bi-Pap 30 06/26/19 12:57 92 28 99 Facial 30 06/26/19 12:00 100.0 90 32 121/61 (81) 99 06/26/19 12:00 40 06/26/19 12:00 Nasal Cannula 2.0 06/26/19 12:00 90 06/26/19 11:00 91 34 105/56 (72) 99 06/26/19 10:36 88 31 100 Facial 30 06/26/19 10:00 81 28 111/53 (72) 100 06/26/19 09:00 40 06/26/19 09:00 83 35 109/56 (73) 100 06/26/19 08:54 86 32 98 Facial 30 06/26/19 08:00 Nasal Cannula 2.0 06/26/19 08:00 85 06/26/19 08:00 98.3 86 31 113/50 (71) 94 Intake and Output 06/26/19 06/27/19 18:59 06:59 Intake Total 1641.20 ml 1610.0 ml Output Total 1350 ml 745 ml Balance 291.20 ml 865.0 ml IV Total 1601.20 ml 1610.0 ml Tube Feeding 40 ml Output Urine Total 450 ml 295 ml Stool Total 500 ml 450 ml Other 400 ml Laboratory Tests 06/26/19 09:30: Arterial Blood pH 7.391, Arterial Blood Partial Pressure CO2 29.9L, Arterial Blood Partial Pressure O2 90.7, Arterial Blood HCO3 17.7*L, Arterial Blood Oxygen Saturation 96.2, Arterial Blood Base Excess -6.4L, Dave Test Positive 06/26/19 12:10: Body Fluid Source Peritoneal, Body Fluid Volume 23, Body Fluid Appearance Slightly cloudy, Body Fluid RBC 82, Body Fluid Total Nucleated Cells 13, Body Fluid Polynuclear WBCs (%) 0, Body Fluid Mononuclear WBCs (%) 100, Body Fluid Mesothelial Cells (%) 0, Body Fluid Comment Pathologist review 06/27/19 05:00: White Blood Count 13.9H, Red Blood Count 2.73L, Hemoglobin 8.3L, Hematocrit 27.2L, Mean Corpuscular Volume 99, Mean Corpuscular Hemoglobin 30.5, Mean Corpuscular Hemoglobin Concent 30.7L, Red Cell Distribution Width 23.5H, Platelet Count 156, Mean Platelet Volume 6.9, Neutrophils (%) (Auto) 72.9, Lymphocytes (%) (Auto) 13.1L, Monocytes (%) (Auto) 8.7, Eosinophils (%) (Auto) 3.2H, Basophils (%) (Auto) 2.1H, Sodium Level 166*H, Potassium Level 3.1L, Chloride Level 133H, Carbon Dioxide Level 19L, Anion Gap 15, Blood Urea Nitrogen 42H, Creatinine 1.8H, Estimat Glomerular Filtration Rate 42.2, Glucose Level 109H, Uric Acid 4.4, Calcium Level 8.6, Phosphorus Level 3.2, Magnesium Level 1.9, Total Bilirubin 28.5H, Direct Bilirubin 23.3H, Aspartate Amino Transf (AST/SGOT) 174H, Alanine Aminotransferase (ALT/SGPT) 19, Alkaline Phosphatase 245H, C-Reactive Protein, Quantitative 9.7H, Pro-B-Type Natriuretic Peptide 274H, Total Protein 5.2L, Albumin 1.7L, Globulin 3.5, Albumin/Globulin Ratio 0.5L Height (Feet): 5 Height (Inches): 9.00 Weight (Pounds): 219 General Appearance: lethargic EENT: normal ENT inspection Neck: supple Cardiovascular: normal rate Respiratory/Chest: decreased breath sounds Abdomen: normal bowel sounds, non tender, soft Extremities: non-tender Merlin Esposito MD Jun 27, 2019 07:54
[2019-06-27] MEDS: Pantoprazole Inj IVP SCH ×2 (08:17→21:18)
[2019-06-27] MEDS: Lactulose 20gm/30ml UDC NG SCH ×4 (08:17→21:18)
[2019-06-27] MEDS: Spironolactone 25mg tab NG SCH (08:17)
--- NOTE | 2019-06-27 08:45 | Nephrology Progress Note ---
Assessment/Plan Problem List: (1) End-stage liver disease (2) Hepatorenal syndrome (3) Pancreatitis, alcoholic, acute (4) Acute alcoholic intoxication (5) Anemia (6) Respiratory failure (7) Hypernatremia Assessment Acute alcoholic intoxication End-stage liver disease Hepatorenal syndrome Pancreatitis, alcoholic, acute Anemia Plan k and Mag and phos supplement as needed has keith has RT (rectal tube) change IV to D5w 150 cc / h aim to change Zosyn and or decrease the dose discussed with RN Correct lytes IV protonix lactulose Folate and Thiamin per GI transfuse per consultants Subjective ROS Limited/Unobtainable: Yes Objective Objective Last 24 Hour Vital Signs Date Time Temp Pulse Resp B/P (MAP) Pulse Ox O2 Delivery O2 Flow Rate FiO2 06/27/19 07:09 99 Nasal Cannula 2.0 28 06/27/19 06:00 69 24 101/50 (67) 99 06/27/19 05:11 73 24 99 Facial 30 06/27/19 05:00 73 24 105/54 (71) 99 06/27/19 04:00 72 06/27/19 04:00 98.2 68 24 102/64 (77) 98 06/27/19 04:00 30 06/27/19 04:00 Nasal Cannula 2.0 06/27/19 03:18 70 24 99 Facial 30 06/27/19 03:00 71 25 104/74 (84) 99 06/27/19 02:00 71 25 115/54 (74) 99 06/27/19 01:22 71 22 99 Facial 30 06/27/19 01:00 67 23 102/45 (64) 99 06/27/19 00:00 Nasal Cannula 2.0 06/27/19 00:00 71 06/27/19 00:00 98.3 71 25 111/53 (72) 99 06/27/19 00:00 30 06/26/19 23:20 64 25 99 Facial 30 06/26/19 23:00 75 29 101/56 (71) 98 06/26/19 22:00 72 27 111/48 (69) 98 06/26/19 21:16 78 30 97 Facial 30 06/26/19 21:00 72 26 107/57 (74) 97 06/26/19 20:00 30 06/26/19 20:00 Nasal Cannula 2.0 06/26/19 20:00 72 06/26/19 20:00 98.1 72 24 103/54 (70) 99 06/26/19 19:14 99 Bi-Pap 30 06/26/19 19:12 73 24 99 Facial 30 06/26/19 19:00 74 25 102/47 (65) 99 06/26/19 18:00 80 25 104/72 (83) 98 06/26/19 17:19 72 24 99 Facial 30 06/26/19 17:00 77 25 96/74 (81) 99 06/26/19 16:00 96.9 77 25 112/60 (77) 98 06/26/19 16:00 73 06/26/19 16:00 Nasal Cannula 2.0 06/26/19 16:00 30 06/26/19 15:15 79 28 100 Facial 30 78 35 100 Bi-Pap 30 06/26/19 15:00 80 26 121/96 (104) 98 06/26/19 14:00 85 30 126/58 (80) 99 06/26/19 13:00 99.2 96 28 125/76 (92) 98 06/26/19 13:00 30 06/26/19 12:59 96 40 98 Bi-Pap 30 06/26/19 12:57 92 28 99 Facial 30 06/26/19 12:00 100.0 90 32 121/61 (81) 99 06/26/19 12:00 40 06/26/19 12:00 Nasal Cannula 2.0 06/26/19 12:00 90 06/26/19 11:00 91 34 105/56 (72) 99 06/26/19 10:36 88 31 100 Facial 30 06/26/19 10:00 81 28 111/53 (72) 100 06/26/19 09:00 40 06/26/19 09:00 83 35 109/56 (73) 100 06/26/19 08:54 86 32 98 Facial 30 Intake and Output 06/26/19 06/27/19 18:59 06:59 Intake Total 1641.20 ml 1610.0 ml Output Total 1350 ml 745 ml Balance 291.20 ml 865.0 ml IV Total 1601.20 ml 1610.0 ml Tube Feeding 40 ml Output Urine Total 450 ml 295 ml Stool Total 500 ml 450 ml Other 400 ml Laboratory Tests 06/26/19 09:30: Arterial Blood pH 7.391, Arterial Blood Partial Pressure CO2 29.9L, Arterial Blood Partial Pressure O2 90.7, Arterial Blood HCO3 17.7*L, Arterial Blood Oxygen Saturation 96.2, Arterial Blood Base Excess -6.4L, Dave Test Positive 06/26/19 12:10: Body Fluid Source Peritoneal, Body Fluid Volume 23, Body Fluid Appearance Slightly cloudy, Body Fluid RBC 82, Body Fluid Total Nucleated Cells 13, Body Fluid Polynuclear WBCs (%) 0, Body Fluid Mononuclear WBCs (%) 100, Body Fluid Mesothelial Cells (%) 0, Body Fluid Comment Pathologist review 06/27/19 05:00: White Blood Count 13.9H, Red Blood Count 2.73L, Hemoglobin 8.3L, Hematocrit 27.2L, Mean Corpuscular Volume 99, Mean Corpuscular Hemoglobin 30.5, Mean Corpuscular Hemoglobin Concent 30.7L, Red Cell Distribution Width 23.5H, Platelet Count 156, Mean Platelet Volume 6.9, Neutrophils (%) (Auto) 72.9, Lymphocytes (%) (Auto) 13.1L, Monocytes (%) (Auto) 8.7, Eosinophils (%) (Auto) 3.2H, Basophils (%) (Auto) 2.1H, Sodium Level 166*H, Potassium Level 3.1L, Chloride Level 133H, Carbon Dioxide Level 19L, Anion Gap 15, Blood Urea Nitrogen 42H, Creatinine 1.8H, Estimat Glomerular Filtration Rate 42.2, Glucose Level 109H, Uric Acid 4.4, Calcium Level 8.6, Phosphorus Level 3.2, Magnesium Level 1.9, Total Bilirubin 28.5H, Direct Bilirubin 23.3H, Aspartate Amino Transf (AST/SGOT) 174H, Alanine Aminotransferase (ALT/SGPT) 19, Alkaline Phosphatase 245H, C-Reactive Protein, Quantitative 9.7H, Pro-B-Type Natriuretic Peptide 274H, Total Protein 5.2L, Albumin 1.7L, Globulin 3.5, Albumin/Globulin Ratio 0.5L 06/27/19 08:25: Arterial Blood pH 7.399, Arterial Blood Partial Pressure CO2 25.5L, Arterial Blood Partial Pressure O2 69.9L, Arterial Blood HCO3 15.4*L, Arterial Blood Oxygen Saturation 92.6L, Arterial Blood Base Excess -8.3L, Dave Test Positive Height (Feet): 5 Height (Inches): 9.00 Weight (Pounds): 219 General Appearance: confused Cardiovascular: tachycardia Respiratory/Chest: decreased breath sounds Abdomen: distended Arthur Lay MD Jun 27, 2019 08:45
--- NOTE | 2019-06-27 11:22 | General Progress Note ---
Assessment/Plan Problem List: (1) Anemia ICD Codes: D64.9 - Anemia, unspecified SNOMED: 238485261 Qualifiers: Qualified Codes: D64.9 - Anemia, unspecified (2) Acute alcoholic intoxication ICD Codes: F10.929 - Alcohol use, unspecified with intoxication, unspecified SNOMED: 54632191, 1699253 Qualifiers: Qualified Codes: F10.920 - Alcohol use, unspecified with intoxication, uncomplicated (3) End-stage liver disease ICD Codes: K72.90 - Hepatic failure, unspecified without coma SNOMED: 754586000 (4) Hepatorenal syndrome ICD Codes: K76.7 - Hepatorenal syndrome SNOMED: 34175314, 2782252 (5) Pancreatitis, alcoholic, acute ICD Codes: K85.20 - Alcohol induced acute pancreatitis without necrosis or infection SNOMED: 796857480, 1401039 Qualifiers: Qualified Codes: K85.20 - Alcohol induced acute pancreatitis without necrosis or infection (6) Respiratory failure ICD Codes: J96.90 - Respiratory failure, unspecified, unspecified whether with hypoxia or hypercapnia SNOMED: 798344714 Status: not improved, deteriorating Assessment/Plan: respiratory failure etoh cirrhosis jaundice confused distended abdomen s/p paracentesis poor prognosis ng tube Subjective ROS Limited/Unobtainable: Yes Allergies: Coded Allergies: No Known Allergies (Unverified , 06/20/19) Objective Last 24 Hour Vital Signs Date Time Temp Pulse Resp B/P (MAP) Pulse Ox O2 Delivery O2 Flow Rate FiO2 06/27/19 09:00 75 29 97/54 (68) 98 06/27/19 08:00 Nasal Cannula 2.0 06/27/19 08:00 98.6 71 27 110/82 (91) 98 06/27/19 08:00 1.5 06/27/19 08:00 66 06/27/19 07:09 99 Nasal Cannula 2.0 28 06/27/19 07:00 70 25 106/50 (68) 97 06/27/19 06:00 69 24 101/50 (67) 99 06/27/19 05:11 73 24 99 Facial 30 06/27/19 05:00 73 24 105/54 (71) 99 06/27/19 04:00 72 06/27/19 04:00 98.2 68 24 102/64 (77) 98 9/4/19 04:00 30 06/27/19 04:00 Nasal Cannula 2.0 06/27/19 03:18 70 24 99 Facial 30 06/27/19 03:00 71 25 104/74 (84) 99 06/27/19 02:00 71 25 115/54 (74) 99 06/27/19 01:22 71 22 99 Facial 30 06/27/19 01:00 67 23 102/45 (64) 99 06/27/19 00:00 Nasal Cannula 2.0 06/27/19 00:00 71 06/27/19 00:00 98.3 71 25 111/53 (72) 99 06/27/19 00:00 30 06/26/19 23:20 64 25 99 Facial 30 06/26/19 23:00 75 29 101/56 (71) 98 06/26/19 22:00 72 27 111/48 (69) 98 06/26/19 21:16 78 30 97 Facial 30 06/26/19 21:00 72 26 107/57 (74) 97 06/26/19 20:00 30 06/26/19 20:00 Nasal Cannula 2.0 06/26/19 20:00 72 06/26/19 20:00 98.1 72 24 103/54 (70) 99 06/26/19 19:14 99 Bi-Pap 30 06/26/19 19:12 73 24 99 Facial 30 06/26/19 19:00 74 25 102/47 (65) 99 06/26/19 18:00 80 25 104/72 (83) 98 06/26/19 17:19 72 24 99 Facial 30 06/26/19 17:00 77 25 96/74 (81) 99 06/26/19 16:00 96.9 77 25 112/60 (77) 98 06/26/19 16:00 73 06/26/19 16:00 Nasal Cannula 2.0 06/26/19 16:00 30 06/26/19 15:15 79 28 100 Facial 30 78 35 100 Bi-Pap 30 06/26/19 15:00 80 26 121/96 (104) 98 06/26/19 14:00 85 30 126/58 (80) 99 06/26/19 13:00 99.2 96 28 125/76 (92) 98 06/26/19 13:00 30 06/26/19 12:59 96 40 98 Bi-Pap 30 06/26/19 12:57 92 28 99 Facial 30 06/26/19 12:00 100.0 90 32 121/61 (81) 99 06/26/19 12:00 40 06/26/19 12:00 Nasal Cannula 2.0 06/26/19 12:00 90 Intake and Output 06/26/19 06/27/19 19:00 07:00 Intake Total 1663.70 ml 1735.0 ml Output Total 1360 ml 755 ml Balance 303.70 ml 980.0 ml IV Total 1623.70 ml 1735.0 ml Tube Feeding 40 ml Output Urine Total 460 ml 305 ml Stool Total 500 ml 450 ml Other 400 ml Laboratory Tests 06/26/19 12:10: Body Fluid Source Peritoneal, Body Fluid Volume 23, Body Fluid Appearance Slightly cloudy, Body Fluid RBC 82, Body Fluid Total Nucleated Cells 13, Body Fluid Polynuclear WBCs (%) 0, Body Fluid Mononuclear WBCs (%) 100, Body Fluid Mesothelial Cells (%) 0, Body Fluid Comment Pathologist review 06/27/19 05:00: White Blood Count 13.9H, Red Blood Count 2.73L, Hemoglobin 8.3L, Hematocrit 27.2L, Mean Corpuscular Volume 99, Mean Corpuscular Hemoglobin 30.5, Mean Corpuscular Hemoglobin Concent 30.7L, Red Cell Distribution Width 23.5H, Platelet Count 156, Mean Platelet Volume 6.9, Neutrophils (%) (Auto) 72.9, Lymphocytes (%) (Auto) 13.1L, Monocytes (%) (Auto) 8.7, Eosinophils (%) (Auto) 3.2H, Basophils (%) (Auto) 2.1H, Sodium Level 166*H, Potassium Level 3.1L, Chloride Level 133H, Carbon Dioxide Level 19L, Anion Gap 15, Blood Urea Nitrogen 42H, Creatinine 1.8H, Estimat Glomerular Filtration Rate 42.2, Glucose Level 109H, Uric Acid 4.4, Calcium Level 8.6, Phosphorus Level 3.2, Magnesium Level 1.9, Total Bilirubin 28.5H, Direct Bilirubin 23.3H, Aspartate Amino Transf (AST/SGOT) 174H, Alanine Aminotransferase (ALT/SGPT) 19, Alkaline Phosphatase 245H, C-Reactive Protein, Quantitative 9.7H, Pro-B-Type Natriuretic Peptide 274H, Total Protein 5.2L, Albumin 1.7L, Globulin 3.5, Albumin/Globulin Ratio 0.5L 06/27/19 08:25: Arterial Blood pH 7.399, Arterial Blood Partial Pressure CO2 25.5L, Arterial Blood Partial Pressure O2 69.9L, Arterial Blood HCO3 15.4*L, Arterial Blood Oxygen Saturation 92.6L, Arterial Blood Base Excess -8.3L, Dave Test Positive Height (Feet): 5 Height (Inches): 9.00 Weight (Pounds): 219 General Appearance: confused Abdomen: distended Deejay Saldaña MD Jun 27, 2019 11:22
--- NOTE | 2019-06-27 11:35 | Diagnostic Imaging Report ---
Indication: Shortness of breath Technique: One view of the chest Comparison: 06/21/2019 Findings: There is a nasogastric tube in place. There is a left arm PICC. These are new since the previous study The heart is enlarged. There is a retrocardiac consolidation which is increased from the prior exam. There is some right perihilar atelectasis. The heart is borderline enlarged Impression: Mild retrocardiac consolidation and right perihilar atelectasis Left arm PICC and nasogastric tube noted
--- NOTE | 2019-06-27 12:03 | Infectious Diseases Prog Note ---
Assessment/Plan Assessment/Plan IMPRESSION: 1. Sepsis. 2. Systemic inflammatory response syndrome. 3. Tachycardia. 4. Leukocytosis. 5. colitis, 6.Alcoholic pancreatitis, 7.Cirrhosis of liver, 8. Acute renal failure likely hepatorenal syndrome, 9.Anemia, 10. thrombocytopenia, 11.hypocalcemia, 12.hypomagnesemia, corrected 13 hypokalemia, corrected 14, Alcohol withdrawal. 15.Metabolic encephalopathy 16. Hypophosphatemia 17. Hypernatremia RECOMMENDATION: Discontinue Zosyn Start on Rocephin & Flagyl Poor prognosis Subjective ROS Limited/Unobtainable: Yes Cardiovascular: Reports: other - had PICC line placement Gastrointestinal/Abdominal: Reports: other - has paracentesis & removal of 400cc fluid Neurologic: Reports: confusion, other - on restraint Allergies: Coded Allergies: No Known Allergies (Unverified , 06/20/19) Objective Vital Signs Last 24 Hour Vital Signs Date Time Temp Pulse Resp B/P (MAP) Pulse Ox O2 Delivery O2 Flow Rate FiO2 06/27/19 09:00 75 29 97/54 (68) 98 06/27/19 08:00 Nasal Cannula 2.0 06/27/19 08:00 98.6 71 27 110/82 (91) 98 06/27/19 08:00 1.5 06/27/19 08:00 66 06/27/19 07:09 99 Nasal Cannula 2.0 28 06/27/19 07:00 70 25 106/50 (68) 97 06/27/19 06:00 69 24 101/50 (67) 99 06/27/19 05:11 73 24 99 Facial 30 06/27/19 05:00 73 24 105/54 (71) 99 06/27/19 04:00 72 06/27/19 04:00 98.2 68 24 102/64 (77) 98 06/27/19 04:00 30 06/27/19 04:00 Nasal Cannula 2.0 06/27/19 03:18 70 24 99 Facial 30 06/27/19 03:00 71 25 104/74 (84) 99 06/27/19 02:00 71 25 115/54 (74) 99 06/27/19 01:22 71 22 99 Facial 30 06/27/19 01:00 67 23 102/45 (64) 99 06/27/19 00:00 Nasal Cannula 2.0 06/27/19 00:00 71 06/27/19 00:00 98.3 71 25 111/53 (72) 99 06/27/19 00:00 30 06/26/19 23:20 64 25 99 Facial 30 06/26/19 23:00 75 29 101/56 (71) 98 06/26/19 22:00 72 27 111/48 (69) 98 06/26/19 21:16 78 30 97 Facial 30 06/26/19 21:00 72 26 107/57 (74) 97 06/26/19 20:00 30 06/26/19 20:00 Nasal Cannula 2.0 06/26/19 20:00 72 06/26/19 20:00 98.1 72 24 103/54 (70) 99 06/26/19 19:14 99 Bi-Pap 30 06/26/19 19:12 73 24 99 Facial 30 06/26/19 19:00 74 25 102/47 (65) 99 06/26/19 18:00 80 25 104/72 (83) 98 06/26/19 17:19 72 24 99 Facial 30 06/26/19 17:00 77 25 96/74 (81) 99 06/26/19 16:00 96.9 77 25 112/60 (77) 98 06/26/19 16:00 73 06/26/19 16:00 Nasal Cannula 2.0 06/26/19 16:00 30 06/26/19 15:15 79 28 100 Facial 30 78 35 100 Bi-Pap 30 06/26/19 15:00 80 26 121/96 (104) 98 06/26/19 14:00 85 30 126/58 (80) 99 06/26/19 13:00 99.2 96 28 125/76 (92) 98 06/26/19 13:00 30 06/26/19 12:59 96 40 98 Bi-Pap 30 06/26/19 12:57 92 28 99 Facial 30 Height (Feet): 5 Height (Inches): 9.00 Weight (Pounds): 219 HEENT: other - icterus Respiratory/Chest: lungs clear Cardiovascular: normal rate Abdomen: distended, other - NG tube feeding Extremities: other - edema Neurologic/Psychiatric: alert, responsive Microbiology Date/Time Source Procedure Growth Status 06/26/19 12:10 Peritoneal Fluid Gram Stain Pending Resulted 06/26/19 12:10 Peritoneal Fluid Body Fluid Culture - Preliminary NO GROWTH AFTER 24 HOURS Resulted Laboratory Tests Test 06/26/19 12:10 06/27/19 05:00 06/27/19 08:25 Body Fluid Source Peritoneal Body Fluid Volume 23 mL Body Fluid Appearance Slightly cloudy (Clear) Body Fluid RBC 82 /CUMM Body Fluid Total Nucleated Cells 13 /CUMM Body Fluid Polynuclear WBCs (%) 0 % Body Fluid Mononuclear WBCs (%) 100 % Body Fluid Mesothelial Cells (%) 0 % Body Fluid Comment Pathologist review White Blood Count 13.9 K/UL (4.8-10.8) H Red Blood Count 2.73 M/UL (4.70-6.10) L Hemoglobin 8.3 G/DL (14.2-18.0) L Hematocrit 27.2 % (42.0-52.0) L Mean Corpuscular Volume 99 FL (80-99) Mean Corpuscular Hemoglobin 30.5 PG (27.0-31.0) Mean Corpuscular Hemoglobin Concent 30.7 G/DL (32.0-36.0) L Red Cell Distribution Width 23.5 % (11.6-14.8) H Platelet Count 156 K/UL (150-450) Mean Platelet Volume 6.9 FL (6.5-10.1) Neutrophils (%) (Auto) 72.9 % (45.0-75.0) Lymphocytes (%) (Auto) 13.1 % (20.0-45.0) L Monocytes (%) (Auto) 8.7 % (1.0-10.0) Eosinophils (%) (Auto) 3.2 % (0.0-3.0) H Basophils (%) (Auto) 2.1 % (0.0-2.0) H Sodium Level 166 MMOL/L (136-145) *H Potassium Level 3.1 MMOL/L (3.5-5.1) L Chloride Level 133 MMOL/L (98-107) H Carbon Dioxide Level 19 MMOL/L (21-32) L Anion Gap 15 mmol/L (5-15) Blood Urea Nitrogen 42 mg/dL (7-18) H Creatinine 1.8 MG/DL (0.55-1.30) H Estimat Glomerular Filtration Rate 42.2 mL/min (>60) Glucose Level 109 MG/DL (74-106) H Uric Acid 4.4 MG/DL (2.6-7.2) Calcium Level 8.6 MG/DL (8.5-10.1) Phosphorus Level 3.2 MG/DL (2.5-4.9) Magnesium Level 1.9 MG/DL (1.8-2.4) Total Bilirubin 28.5 MG/DL (0.2-1.0) H Direct Bilirubin 23.3 MG/DL (0.0-0.3) H Aspartate Amino Transf (AST/SGOT) 174 U/L (15-37) H Alanine Aminotransferase (ALT/SGPT) 19 U/L (12-78) Alkaline Phosphatase 245 U/L (46-116) H C-Reactive Protein, Quantitative 9.7 mg/dL (0.00-0.90) H Pro-B-Type Natriuretic Peptide 274 pg/mL (0-125) H Total Protein 5.2 G/DL (6.4-8.2) L Albumin 1.7 G/DL (3.4-5.0) L Globulin 3.5 g/dL Albumin/Globulin Ratio 0.5 (1.0-2.7) L Arterial Blood pH 7.399 (7.350-7.450) Arterial Blood Partial Pressure CO2 25.5 mmHg (35.0-45.0) L Arterial Blood Partial Pressure O2 69.9 mmHg (75.0-100.0) L Arterial Blood HCO3 15.4 mmol/L (22.0-26.0) *L Arterial Blood Oxygen Saturation 92.6 % (95-100) L Arterial Blood Base Excess -8.3 (-2-2) L Dave Test Positive Current Medications Medications (Trade) Dose Ordered Sig/Gabriela Route PRN Reason Start Time Stop Time Status Last Admin Dose Admin Chlorhexidine Gluconate (Emilie-Hex 2%) 1 applic DAILY@1999 TOPIC 06/26/19 20:00 07/26/19 19:59 06/26/19 20:00 Dextrose 1,000 ml @ 150 mls/hr Q6H40M IV 06/27/19 09:00 07/25/19 08:59 06/27/19 08:17 Heparin Sodium/ Sodium Chloride (Heparin 1000 units/500ml Premix) 1,000 unit ONCE PRN IV PICC LINE 06/26/19 10:15 06/27/19 23:59 Lactulose (Cephulac) 30 gm FOUR TIMES A DAY NG 06/23/19 13:00 07/20/19 12:59 06/27/19 08:17 Lidocaine HCl (Xylocaine 1% 30ml) 30 ml ONCE PRN INJ PICC LINE 06/26/19 10:15 06/27/19 23:59 Lorazepam (Ativan) 1.5 mg Q4H PRN ORAL For Anxiety 06/26/19 11:00 07/03/19 10:59 Norepinephrine Bitartrate 4 mg/ Dextrose 250 ml @ 0 mls/hr Q24H PRN IV For hypotension 06/25/19 19:00 07/25/19 18:59 Pantoprazole (Protonix) 40 mg EVERY 12 HOURS IVP 06/21/19 21:00 07/20/19 20:59 06/27/19 08:17 Piperacillin Sod/ Tazobactam Sod 3.375 gm/Sodium Chloride 110 ml @ 27.5 mls/hr EVERY 8 HOURS IVPB 06/22/19 09:30 07/02/19 09:29 06/27/19 05:47 Rifaximin (Xifaxan) 550 mg EVERY 12 HOURS NG 06/22/19 21:00 06/29/19 20:59 06/27/19 08:17 Spironolactone (Aldactone) 25 mg DAILY NG 06/24/19 09:15 07/24/19 09:14 06/27/19 08:17 Ilia Chakraborty MD Jun 27, 2019 12:03
--- NOTE | 2019-06-27 12:24 | Cardiac Electrophysiology PN ---
Assessment/Plan Assessment/Plan 1. Sinus tachycardia due to alcohol withdrawal and hepatic encephalopathy. No SVT or atrial fibrillation. EF 55% 2. Hepatic failure and cirrhosis. On Lactulose and albumin S/P paracentesis yesterday. 3. Hypotension BP 80 better after albumin. S/P PICC line in case needs Levophed 4. Hepatorenal syndrome. Creatinine is 2. Fu . 5. Hypokalemia. 6. Alcohol intoxication. Thiamine, folate, and Librium. 7. Hepatic encephalopathy DW RN Subjective Subjective in ICU in restraints and lethargic.S/p 400 cc Paracentesis yesterday and NG feeding resumed today S/P PICC line. No arrhythmias and off pressors Objective Last 24 Hour Vital Signs Date Time Temp Pulse Resp B/P (MAP) Pulse Ox O2 Delivery O2 Flow Rate FiO2 06/27/19 12:00 1.5 06/27/19 12:00 Nasal Cannula 2.0 06/27/19 12:00 77 06/27/19 09:00 75 29 97/54 (68) 98 06/27/19 08:00 Nasal Cannula 2.0 06/27/19 08:00 98.6 71 27 110/82 (91) 98 06/27/19 08:00 1.5 06/27/19 08:00 66 06/27/19 07:09 99 Nasal Cannula 2.0 28 06/27/19 07:00 70 25 106/50 (68) 97 06/27/19 06:00 69 24 101/50 (67) 99 06/27/19 05:11 73 24 99 Facial 30 06/27/19 05:00 73 24 105/54 (71) 99 06/27/19 04:00 72 06/27/19 04:00 98.2 68 24 102/64 (77) 98 06/27/19 04:00 30 06/27/19 04:00 Nasal Cannula 2.0 06/27/19 03:18 70 24 99 Facial 30 06/27/19 03:00 71 25 104/74 (84) 99 06/27/19 02:00 71 25 115/54 (74) 99 06/27/19 01:22 71 22 99 Facial 30 06/27/19 01:00 67 23 102/45 (64) 99 06/27/19 00:00 Nasal Cannula 2.0 06/27/19 00:00 71 06/27/19 00:00 98.3 71 25 111/53 (72) 99 06/27/19 00:00 30 06/26/19 23:20 64 25 99 Facial 30 06/26/19 23:00 75 29 101/56 (71) 98 06/26/19 22:00 72 27 111/48 (69) 98 06/26/19 21:16 78 30 97 Facial 30 06/26/19 21:00 72 26 107/57 (74) 97 06/26/19 20:00 30 06/26/19 20:00 Nasal Cannula 2.0 06/26/19 20:00 72 06/26/19 20:00 98.1 72 24 103/54 (70) 99 06/26/19 19:14 99 Bi-Pap 30 06/26/19 19:12 73 24 99 Facial 30 06/26/19 19:00 74 25 102/47 (65) 99 06/26/19 18:00 80 25 104/72 (83) 98 06/26/19 17:19 72 24 99 Facial 30 06/26/19 17:00 77 25 96/74 (81) 99 06/26/19 16:00 96.9 77 25 112/60 (77) 98 06/26/19 16:00 73 06/26/19 16:00 Nasal Cannula 2.0 06/26/19 16:00 30 06/26/19 15:15 79 28 100 Facial 30 78 35 100 Bi-Pap 30 06/26/19 15:00 80 26 121/96 (104) 98 06/26/19 14:00 85 30 126/58 (80) 99 06/26/19 13:00 99.2 96 28 125/76 (92) 98 06/26/19 13:00 30 06/26/19 12:59 96 40 98 Bi-Pap 30 06/26/19 12:57 92 28 99 Facial 30 Intake and Output 06/26/19 06/27/19 19:00 07:00 Intake Total 1663.70 ml 1735.0 ml Output Total 1360 ml 755 ml Balance 303.70 ml 980.0 ml IV Total 1623.70 ml 1735.0 ml Tube Feeding 40 ml Output Urine Total 460 ml 305 ml Stool Total 500 ml 450 ml Other 400 ml Laboratory Tests Test 06/27/19 05:00 06/27/19 08:25 White Blood Count 13.9 K/UL (4.8-10.8) H Red Blood Count 2.73 M/UL (4.70-6.10) L Hemoglobin 8.3 G/DL (14.2-18.0) L Hematocrit 27.2 % (42.0-52.0) L Mean Corpuscular Volume 99 FL (80-99) Mean Corpuscular Hemoglobin 30.5 PG (27.0-31.0) Mean Corpuscular Hemoglobin Concent 30.7 G/DL (32.0-36.0) L Red Cell Distribution Width 23.5 % (11.6-14.8) H Platelet Count 156 K/UL (150-450) Mean Platelet Volume 6.9 FL (6.5-10.1) Neutrophils (%) (Auto) 72.9 % (45.0-75.0) Lymphocytes (%) (Auto) 13.1 % (20.0-45.0) L Monocytes (%) (Auto) 8.7 % (1.0-10.0) Eosinophils (%) (Auto) 3.2 % (0.0-3.0) H Basophils (%) (Auto) 2.1 % (0.0-2.0) H Sodium Level 166 MMOL/L (136-145) *H Potassium Level 3.1 MMOL/L (3.5-5.1) L Chloride Level 133 MMOL/L (98-107) H Carbon Dioxide Level 19 MMOL/L (21-32) L Anion Gap 15 mmol/L (5-15) Blood Urea Nitrogen 42 mg/dL (7-18) H Creatinine 1.8 MG/DL (0.55-1.30) H Estimat Glomerular Filtration Rate 42.2 mL/min (>60) Glucose Level 109 MG/DL (74-106) H Uric Acid 4.4 MG/DL (2.6-7.2) Calcium Level 8.6 MG/DL (8.5-10.1) Phosphorus Level 3.2 MG/DL (2.5-4.9) Magnesium Level 1.9 MG/DL (1.8-2.4) Total Bilirubin 28.5 MG/DL (0.2-1.0) H Direct Bilirubin 23.3 MG/DL (0.0-0.3) H Aspartate Amino Transf (AST/SGOT) 174 U/L (15-37) H Alanine Aminotransferase (ALT/SGPT) 19 U/L (12-78) Alkaline Phosphatase 245 U/L (46-116) H C-Reactive Protein, Quantitative 9.7 mg/dL (0.00-0.90) H Pro-B-Type Natriuretic Peptide 274 pg/mL (0-125) H Total Protein 5.2 G/DL (6.4-8.2) L Albumin 1.7 G/DL (3.4-5.0) L Globulin 3.5 g/dL Albumin/Globulin Ratio 0.5 (1.0-2.7) L Arterial Blood pH 7.399 (7.350-7.450) Arterial Blood Partial Pressure CO2 25.5 mmHg (35.0-45.0) L Arterial Blood Partial Pressure O2 69.9 mmHg (75.0-100.0) L Arterial Blood HCO3 15.4 mmol/L (22.0-26.0) *L Arterial Blood Oxygen Saturation 92.6 % (95-100) L Arterial Blood Base Excess -8.3 (-2-2) L Dave Test Positive Microbiology Date/Time Source Procedure Growth Status 06/26/19 12:10 Peritoneal Fluid Gram Stain Pending Resulted 06/26/19 12:10 Peritoneal Fluid Body Fluid Culture - Preliminary NO GROWTH AFTER 24 HOURS Resulted Objective HEAD AND NECK: No JVD. Sclera is jaundiced. LUNGS: Decreased breath sounds. CARDIOVASCULAR: Tachycardic S1 and S2 with no gallop. ABDOMEN: Distended with ascites. EXTREMITIES: 2+ pitting edema. Felice Smith MD Jun 27, 2019 12:24
[2019-06-27] MEDS: metroNIDAZOLE 500mg tab NG SCH ×2 (13:41→22:45)
[2019-06-27] MEDS: cefTRIAXone 1 GM in D5W 55 ML IVPB SCH (13:52)
--- NOTE | 2019-06-27 16:17 | Pulmonolgy Critical Care Note ---
Critical Care - Asmt/Plan Assessment/Plan: Pulmonary CCM Consultation HPI This is a 39-year-old male who is an alcoholic with significant fatty liver on abdominal CT and alcoholic hepatitis, DF 16, not candidate for steroids currently per GI. He has been drinking heavily for 3 months straight. He stopped drinking [employer]. Noted to have Hepatic Encephalopathy and Hepatorenal Syndrome. No bleeding. No nausea no vomiting. Nothing made it better. Movement or exertion makes it worse. Noted to have significant hypokalemia and alkalosis, evidence of sepsis, source unclear - some bacteria in urine, mid ascites - possible SBP, dilated Gallbladder On NC O2, on Lactulose Much more awake Urine output improving, Cr 1.8 Allergies: No Known Allergies Past Medical History: Alcohol abuse All Other Systems: negative except mentioned in HPI Physical Exam Vital Signs Noted General Appearance: Jaundiced, awake Head: normocephalic, atraumatic Eyes: bilateral eye PERRL, bilateral eye EOMI, bilateral eye scleral icterus ENT: moist mm Neck: no masses, no LN Respiratory: chest non-tender, lungs clear, normal breath sounds Cardiovascular: regular rate, rhythm, Normal HS1, HS2, no murmur, tachycardia Gastrointestinal: Obese, hepatomegaly, some tenderness RUQ, normal bowel sounds , no mass, no rebound Musculoskeletal: moves all limbs Neurologic: responds to commands, awake Skin: jaundiced, moderate edema Impression: Acute alcoholic intoxication Severe Sepsis Alcoholic Hepatitis Possible Cirrhosis Metabolic and respiratory alkalosis Possible Portal Hypertension Hepatorenal syndrome - worsening renal function Hypernatremia Pancreatitis, alcoholic, acute Anemia Monitor CXR/ABG Plan ICU management NPO except meds IV antibiotics per ID Aspiration precautions GI/Renal following IVF per Nephrology Pressors PRN Intubate PRN for airway protection Transfuse PRN Thiamine Monitor labs K supplementation Adjust FIO2 - sats 90-96% Labs: noted EKG: Rate: tachycardiac Rhythm: NSR ST Segments: other - NSST changes Chest X-Ray: hypoventilatory exam, no consolidation, no effusion, no pneumothorax, no acute cardiopulmonary disease CT abdomen pelvis: Severely enlarged liver and fatty liver. Mild ascites. Critical Care - Objective Last 24 Hour Vital Signs Date Time Temp Pulse Resp B/P (MAP) Pulse Ox O2 Delivery O2 Flow Rate FiO2 06/27/19 14:00 82 32 107/53 (71) 97 06/27/19 13:00 82 33 97/46 (63) 97 06/27/19 12:00 98.8 82 33 95/59 (71) 97 06/27/19 12:00 1.5 06/27/19 12:00 Nasal Cannula 2.0 06/27/19 12:00 77 06/27/19 11:00 77 29 105/50 (68) 97 06/27/19 10:00 77 31 96/48 (64) 97 06/27/19 09:00 75 29 97/54 (68) 98 06/27/19 08:00 Nasal Cannula 2.0 06/27/19 08:00 98.6 71 27 110/82 (91) 98 06/27/19 08:00 1.5 06/27/19 08:00 66 06/27/19 07:09 99 Nasal Cannula 2.0 28 06/27/19 07:00 70 25 106/50 (68) 97 06/27/19 06:00 69 24 101/50 (67) 99 06/27/19 05:11 73 24 99 Facial 30 06/27/19 05:00 73 24 105/54 (71) 99 06/27/19 04:00 72 06/27/19 04:00 98.2 68 24 102/64 (77) 98 06/27/19 04:00 30 06/27/19 04:00 Nasal Cannula 2.0 06/27/19 03:18 70 24 99 Facial 30 06/27/19 03:00 71 25 104/74 (84) 99 06/27/19 02:00 71 25 115/54 (74) 99 06/27/19 01:22 71 22 99 Facial 30 06/27/19 01:00 67 23 102/45 (64) 99 06/27/19 00:00 Nasal Cannula 2.0 06/27/19 00:00 71 06/27/19 00:00 98.3 71 25 111/53 (72) 99 06/27/19 00:00 30 06/26/19 23:20 64 25 99 Facial 30 06/26/19 23:00 75 29 101/56 (71) 98 06/26/19 22:00 72 27 111/48 (69) 98 06/26/19 21:16 78 30 97 Facial 30 06/26/19 21:00 72 26 107/57 (74) 97 06/26/19 20:00 30 06/26/19 20:00 Nasal Cannula 2.0 06/26/19 20:00 72 06/26/19 20:00 98.1 72 24 103/54 (70) 99 06/26/19 19:14 99 Bi-Pap 30 06/26/19 19:12 73 24 99 Facial 30 06/26/19 19:00 74 25 102/47 (65) 99 06/26/19 18:00 80 25 104/72 (83) 98 06/26/19 17:19 72 24 99 Facial 30 06/26/19 17:00 77 25 96/74 (81) 99 Micro: Microbiology Date/Time Source Procedure Growth Status 06/26/19 12:10 Peritoneal Fluid Gram Stain Pending Resulted 06/26/19 12:10 Peritoneal Fluid Body Fluid Culture - Preliminary NO GROWTH AFTER 24 HOURS Resulted Critical Care - Subjective ROS Limited/Unobtainable: No FI02: 28 Sputum Amount: None Tube Feeding Amount: 20 I&O: Intake and Output 06/26/19 06/27/19 19:00 07:00 Intake Total 1663.70 ml 1735.0 ml Output Total 1360 ml 755 ml Balance 303.70 ml 980.0 ml IV Total 1623.70 ml 1735.0 ml Tube Feeding 40 ml Output Urine Total 460 ml 305 ml Stool Total 500 ml 450 ml Other 400 ml Quang Domingo MD Jun 27, 2019 16:17
--- NOTE | 2019-06-27 16:57 | Hematology/Onc Progress Note ---
Assessment/Plan Assessment/Plan Assessment and Recs: # Thrombocytopenia - potential causes multifactorial, does have a history of etoh abuse, cirrhosis of the liver, hepatosplenomegaly, portal HTN, coagulopathy noted as well --> Hep panel and HIV ordered (NEG) --> US abd does show, portal htn and cirrhosis ++ --> Peripheral smear ordered to evaluate for blasts /schistocytes reviewed and is negative --> abx and other meds have been reviewed --> ok for ppx if plt >50k w/ either heparin or lovenox --> Transfuse if Plt < 20k and fever, or if Plt < 10k without fever --> plt trend 80-->97-->117-->157k->216k--> # Anemia of chronic disease due to underlying chronic medical issues, multifactorial (myelosuprresion noted) --> Anemia workup has been reviewed, ferritin 297 --> No evidence of hemolysis is noted, peripheral smear has been reviewed. --> Hgb goal >7. Transfuse prn. --> Epogen or iron at this time is not particularly indicated --> Medications have been reviewed --> low threshold for gi evaluation in case has occult + --> hgb trend: 7.7-->8.2-->9->8.4-->8.3 --> serum electrophoresis ordered 06/20 # Coagulopathy due to cirrhosis --> give Vitk as needed # Leukocytosis with sepsis is on abx --> ID following, appreciate recs --> wbc trend: 17k-->13.9 # Acute alcoholic intoxication --> etoh abuse history --> thiamine, folic acid, ivf # End-stage liver disease --> Hepatorenal syndrome r/o with renal, albumin prn # Pancreatitis, alcoholic, acute # Tachycardia The timing of this note does not necessarily reflect the time of the patient was seen. GREATLY APPRECIATE CONSULTATION. Subjective Allergies: Coded Allergies: No Known Allergies (Unverified , 06/20/19) Subjective 06/21: low k, ferritin 297, h/h stable, afebrile, blood transfused 06/22: in icu, on restraints, labs reviewed, no f/c, imaging reviewed 06/23: pain meds given, remains in icu, again in restraints, bili higher, inr as well, given vitk 06/25: no fevers, no chills, no bleeding, confused in bed in icu 06/26: no events to report, no bleeding, remains in icu, ++ bipap 06/27: icu,s/p paracentesis yesterday, off pressors, h/h stable Objective Objective Current Medications Medications (Trade) Dose Ordered Sig/Gabriela Route PRN Reason Start Time Stop Time Status Last Admin Dose Admin Ceftriaxone Sodium 1 gm/ Dextrose 55 ml @ 110 mls/hr DAILY IVPB 06/27/19 13:00 07/04/19 12:59 06/27/19 13:52 Chlorhexidine Gluconate (Emilie-Hex 2%) 1 applic DAILY@2000 TOPIC 06/26/19 20:00 07/26/19 19:59 06/26/19 20:00 Dextrose 1,000 ml @ 150 mls/hr Q6H40M IV 06/27/19 09:00 07/25/19 08:59 06/27/19 15:58 Heparin Sodium/ Sodium Chloride (Heparin 1000 units/500ml Premix) 1,000 unit ONCE PRN IV PICC LINE 06/26/19 10:15 06/27/19 23:59 Lactulose (Cephulac) 30 gm FOUR TIMES A DAY NG 06/23/19 13:00 07/20/19 12:59 06/27/19 13:41 Lidocaine HCl (Xylocaine 1% 30ml) 30 ml ONCE PRN INJ PICC LINE 06/26/19 10:15 06/27/19 23:59 Lorazepam (Ativan) 1.5 mg Q4H PRN ORAL For Anxiety 06/26/19 11:00 07/03/19 10:59 Metronidazole (Flagyl) 500 mg Q8HR NG 06/27/19 14:00 07/04/19 13:59 06/27/19 13:41 Norepinephrine Bitartrate 4 mg/ Dextrose 250 ml @ 0 mls/hr Q24H PRN IV For hypotension 06/25/19 19:00 07/25/19 18:59 Pantoprazole (Protonix) 40 mg EVERY 12 HOURS IVP 06/21/19 21:00 07/20/19 20:59 06/27/19 08:17 Rifaximin (Xifaxan) 550 mg EVERY 12 HOURS NG 06/22/19 21:00 06/29/19 20:59 06/27/19 08:17 Spironolactone (Aldactone) 25 mg DAILY NG 06/24/19 09:15 07/24/19 09:14 06/27/19 08:17 Last 24 Hour Vital Signs Date Time Temp Pulse Resp B/P (MAP) Pulse Ox O2 Delivery O2 Flow Rate FiO2 06/27/19 16:00 1.5 06/27/19 16:00 Nasal Cannula 2.0 06/27/19 16:00 82 06/27/19 14:00 82 32 107/53 (71) 97 06/27/19 13:00 82 33 97/46 (63) 97 06/27/19 12:00 98.8 82 33 95/59 (71) 97 06/27/19 12:00 1.5 06/27/19 12:00 Nasal Cannula 2.0 06/27/19 12:00 77 06/27/19 11:00 77 29 105/50 (68) 97 06/27/19 10:00 77 31 96/48 (64) 97 06/27/19 09:00 75 29 97/54 (68) 98 06/27/19 08:00 Nasal Cannula 2.0 06/27/19 08:00 98.6 71 27 110/82 (91) 98 06/27/19 08:00 1.5 06/27/19 08:00 66 06/27/19 07:09 99 Nasal Cannula 2.0 28 06/27/19 07:00 70 25 106/50 (68) 97 06/27/19 06:00 69 24 101/50 (67) 99 06/27/19 05:11 73 24 99 Facial 30 06/27/19 05:00 73 24 105/54 (71) 99 06/27/19 04:00 72 06/27/19 04:00 98.2 68 24 102/64 (77) 98 06/27/19 04:00 30 06/27/19 04:00 Nasal Cannula 2.0 06/27/19 03:18 70 24 99 Facial 30 06/27/19 03:00 71 25 104/74 (84) 99 06/27/19 02:00 71 25 115/54 (74) 99 06/27/19 01:22 71 22 99 Facial 30 06/27/19 01:00 67 23 102/45 (64) 99 06/27/19 00:00 Nasal Cannula 2.0 06/27/19 00:00 71 06/27/19 00:00 98.3 71 25 111/53 (72) 99 06/27/19 00:00 30 06/26/19 23:20 64 25 99 Facial 30 06/26/19 23:00 75 29 101/56 (71) 98 06/26/19 22:00 72 27 111/48 (69) 98 06/26/19 21:16 78 30 97 Facial 30 06/26/19 21:00 72 26 107/57 (74) 97 06/26/19 20:00 30 06/26/19 20:00 Nasal Cannula 2.0 06/26/19 20:00 72 06/26/19 20:00 98.1 72 24 103/54 (70) 99 06/26/19 19:14 99 Bi-Pap 30 06/26/19 19:12 73 24 99 Facial 30 06/26/19 19:00 74 25 102/47 (65) 99 06/26/19 18:00 80 25 104/72 (83) 98 06/26/19 17:19 72 24 99 Facial 30 06/26/19 17:00 77 25 96/74 (81) 99 06/26/19 16:00 96.9 77 25 112/60 (77) 98 06/26/19 16:00 73 06/26/19 16:00 Nasal Cannula 2.0 06/26/19 16:00 30 06/26/19 15:15 79 28 100 Facial 30 78 35 100 Bi-Pap 30 06/26/19 15:00 80 26 121/96 (104) 98 06/26/19 14:00 85 30 126/58 (80) 99 06/26/19 13:00 99.2 96 28 125/76 (92) 98 06/26/19 13:00 30 06/26/19 12:59 96 40 98 Bi-Pap 30 06/26/19 12:57 92 28 99 Facial 30 06/26/19 12:00 100.0 90 32 121/61 (81) 99 06/26/19 12:00 40 06/26/19 12:00 Nasal Cannula 2.0 06/26/19 12:00 90 06/26/19 11:00 91 34 105/56 (72) 99 06/26/19 10:36 88 31 100 Facial 30 06/26/19 10:00 81 28 111/53 (72) 100 06/26/19 09:00 40 06/26/19 09:00 83 35 109/56 (73) 100 06/26/19 08:54 86 32 98 Facial 30 06/26/19 08:00 Nasal Cannula 2.0 06/26/19 08:00 85 06/26/19 08:00 98.3 86 31 113/50 (71) 94 06/26/19 07:00 81 33 102/83 (89) 95 06/26/19 06:59 85 24 100 Nasal Cannula 2.0 28 83 26 94 06/26/19 06:59 94 Nasal Cannula 2.0 28 06/26/19 06:00 82 25 129/54 (79) 92 06/26/19 05:00 83 25 126/55 (78) 93 06/26/19 04:00 Nasal Cannula 2.0 06/26/19 04:00 88 06/26/19 04:00 99.2 89 32 121/79 (93) 94 06/26/19 03:12 90 24 99 Nasal Cannula 2.0 28 89 24 95 06/26/19 03:00 96 35 135/71 (92) 96 06/26/19 02:00 94 29 139/69 (92) 95 06/26/19 01:00 94 35 120/56 (77) 96 06/26/19 00:00 Nasal Cannula 2.0 06/26/19 00:00 97 06/26/19 00:00 100.5 93 34 116/58 (77) 96 06/25/19 23:48 90 24 99 Nasal Cannula 2.0 28 92 26 96 06/25/19 23:00 91 34 127/65 (85) 97 06/25/19 22:00 89 34 121/59 (79) 99 06/25/19 21:00 91 33 93/49 (64) 99 06/25/19 20:00 73 06/25/19 20:00 98.9 91 31 92/76 (81) 98 06/25/19 20:00 Nasal Cannula 2.0 06/25/19 19:08 98 Nasal Cannula 2.0 28 06/25/19 19:08 93 22 99 Nasal Cannula 2.0 28 90 24 98 06/25/19 19:00 91 33 97/71 (80) 100 06/25/19 18:00 91 29 86/61 (69) 99 06/25/19 17:00 98 31 91/58 (69) 98 Intake and Output 06/26/19 06/27/19 19:00 07:00 Intake Total 1663.70 ml 1735.0 ml Output Total 1360 ml 755 ml Balance 303.70 ml 980.0 ml IV Total 1623.70 ml 1735.0 ml Tube Feeding 40 ml Output Urine Total 460 ml 305 ml Stool Total 500 ml 450 ml Other 400 ml Labs Test 06/24/19 19:00 06/25/19 04:15 06/25/19 07:55 06/25/19 21:50 Potassium Level 3.5 MMOL/L (3.5-5.1) 3.7 MMOL/L (3.5-5.1) 4.2 MMOL/L (3.5-5.1) White Blood Count 17.8 K/UL (4.8-10.8) 16.7 K/UL (4.8-10.8) Red Blood Count 3.01 M/UL (4.70-6.10) 2.96 M/UL (4.70-6.10) Hemoglobin 9.0 G/DL (14.2-18.0) 8.9 G/DL (14.2-18.0) Hematocrit 29.3 % (42.0-52.0) 27.9 % (42.0-52.0) Mean Corpuscular Volume 97 FL (80-99) 94 FL (80-99) Mean Corpuscular Hemoglobin 29.9 PG (27.0-31.0) 30.2 PG (27.0-31.0) Mean Corpuscular Hemoglobin Concent 30.7 G/DL (32.0-36.0) 32.1 G/DL (32.0-36.0) Red Cell Distribution Width 22.1 % (11.6-14.8) 21.3 % (11.6-14.8) Platelet Count 216 K/UL (150-450) 233 K/UL (150-450) Mean Platelet Volume 6.1 FL (6.5-10.1) 6.9 FL (6.5-10.1) Neutrophils (%) (Auto) 72.8 % (45.0-75.0) 73.3 % (45.0-75.0) Lymphocytes (%) (Auto) 9.9 % (20.0-45.0) 12.3 % (20.0-45.0) Monocytes (%) (Auto) 12.4 % (1.0-10.0) 9.3 % (1.0-10.0) Eosinophils (%) (Auto) 3.5 % (0.0-3.0) 3.3 % (0.0-3.0) Basophils (%) (Auto) 1.5 % (0.0-2.0) 1.8 % (0.0-2.0) Prothrombin Time 17.1 SEC (9.30-11.50) 17.4 SEC (9.30-11.50) Prothromb Time International Ratio 1.6 (0.9-1.1) 1.7 (0.9-1.1) Sodium Level 166 MMOL/L (136-145) 165 MMOL/L (136-145) Chloride Level 134 MMOL/L (98-107) 131 MMOL/L (98-107) Carbon Dioxide Level 18 MMOL/L (21-32) 19 MMOL/L (21-32) Anion Gap 14 mmol/L (5-15) 14 mmol/L (5-15) Blood Urea Nitrogen 26 mg/dL (7-18) 33 mg/dL (7-18) Creatinine 1.4 MG/DL (0.55-1.30) 1.6 MG/DL (0.55-1.30) Estimat Glomerular Filtration Rate 56.4 mL/min (>60) 48.4 mL/min (>60) Glucose Level 158 MG/DL (74-106) 137 MG/DL (74-106) Uric Acid 3.5 MG/DL (2.6-7.2) Calcium Level 8.5 MG/DL (8.5-10.1) 8.7 MG/DL (8.5-10.1) Phosphorus Level 0.7 MG/DL (2.5-4.9) Magnesium Level 2.1 MG/DL (1.8-2.4) Total Bilirubin 27.6 MG/DL (0.2-1.0) 30.3 MG/DL (0.2-1.0) Direct Bilirubin 22.9 MG/DL (0.0-0.3) 24.1 MG/DL (0.0-0.3) Aspartate Amino Transf (AST/SGOT) 151 U/L (15-37) 178 U/L (15-37) Alanine Aminotransferase (ALT/SGPT) 16 U/L (12-78) 14 U/L (12-78) Alkaline Phosphatase 352 U/L (46-116) 325 U/L (46-116) C-Reactive Protein, Quantitative 5.9 mg/dL (0.00-0.90) Pro-B-Type Natriuretic Peptide 146 pg/mL (0-125) Total Protein 5.4 G/DL (6.4-8.2) 6.1 G/DL (6.4-8.2) Albumin 1.7 G/DL (3.4-5.0) 2.0 G/DL (3.4-5.0) Globulin 3.7 g/dL 4.1 g/dL Albumin/Globulin Ratio 0.5 (1.0-2.7) 0.5 (1.0-2.7) Ammonia 66 umol/L (11-32) Test 06/25/19 22:35 06/26/19 03:40 06/26/19 09:30 06/26/19 12:10 Arterial Blood pH 7.423 (7.350-7.450) 7.391 (7.350-7.450) Arterial Blood Partial Pressure CO2 28.1 mmHg (35.0-45.0) 29.9 mmHg (35.0-45.0) Arterial Blood Partial Pressure O2 77.5 mmHg (75.0-100.0) 90.7 mmHg (75.0-100.0) Arterial Blood HCO3 17.9 mmol/L (22.0-26.0) 17.7 mmol/L (22.0-26.0) Arterial Blood Oxygen Saturation 94.7 % (95-100) 96.2 % (95-100) Arterial Blood Base Excess -5.7 (-2-2) -6.4 (-2-2) Dave Test Positive Positive White Blood Count 17.7 K/UL (4.8-10.8) Red Blood Count 2.80 M/UL (4.70-6.10) Hemoglobin 8.4 G/DL (14.2-18.0) Hematocrit 27.7 % (42.0-52.0) Mean Corpuscular Volume 99 FL (80-99) Mean Corpuscular Hemoglobin 30.1 PG (27.0-31.0) Mean Corpuscular Hemoglobin Concent 30.4 G/DL (32.0-36.0) Red Cell Distribution Width 24.7 % (11.6-14.8) Platelet Count 205 K/UL (150-450) Mean Platelet Volume 6.8 FL (6.5-10.1) Neutrophils (%) (Auto) 70.5 % (45.0-75.0) Lymphocytes (%) (Auto) 12.6 % (20.0-45.0) Monocytes (%) (Auto) 11.5 % (1.0-10.0) Eosinophils (%) (Auto) 3.6 % (0.0-3.0) Basophils (%) (Auto) 1.9 % (0.0-2.0) Sodium Level 167 MMOL/L (136-145) Potassium Level 3.4 MMOL/L (3.5-5.1) Chloride Level 134 MMOL/L (98-107) Carbon Dioxide Level 18 MMOL/L (21-32) Anion Gap 14 mmol/L (5-15) Blood Urea Nitrogen 38 mg/dL (7-18) Creatinine 1.9 MG/DL (0.55-1.30) Estimat Glomerular Filtration Rate 39.7 mL/min (>60) Glucose Level 133 MG/DL (74-106) Calcium Level 8.9 MG/DL (8.5-10.1) Phosphorus Level 1.7 MG/DL (2.5-4.9) Magnesium Level 2.1 MG/DL (1.8-2.4) Total Bilirubin 30.2 MG/DL (0.2-1.0) Direct Bilirubin 24.4 MG/DL (0.0-0.3) Gamma Glutamyl Transpeptidase 575 U/L (5-85) Aspartate Amino Transf (AST/SGOT) 171 U/L (15-37) Alanine Aminotransferase (ALT/SGPT) 15 U/L (12-78) Alkaline Phosphatase 277 U/L (46-116) Ammonia 67 umol/L (11-32) C-Reactive Protein, Quantitative 6.4 mg/dL (0.00-0.90) Pro-B-Type Natriuretic Peptide 175 pg/mL (0-125) Total Protein 5.8 G/DL (6.4-8.2) Albumin 2.2 G/DL (3.4-5.0) Globulin 3.6 g/dL Albumin/Globulin Ratio 0.6 (1.0-2.7) Body Fluid Source Peritoneal Body Fluid Volume 23 mL Body Fluid Appearance Slightly cloudy (Clear) Body Fluid RBC 82 /CUMM Body Fluid Total Nucleated Cells 13 /CUMM Body Fluid Polynuclear WBCs (%) 0 % Body Fluid Mononuclear WBCs (%) 100 % Body Fluid Mesothelial Cells (%) 0 % Body Fluid Comment Pathologist review Test 06/27/19 05:00 06/27/19 08:25 White Blood Count 13.9 K/UL (4.8-10.8) Red Blood Count 2.73 M/UL (4.70-6.10) Hemoglobin 8.3 G/DL (14.2-18.0) Hematocrit 27.2 % (42.0-52.0) Mean Corpuscular Volume 99 FL (80-99) Mean Corpuscular Hemoglobin 30.5 PG (27.0-31.0) Mean Corpuscular Hemoglobin Concent 30.7 G/DL (32.0-36.0) Red Cell Distribution Width 23.5 % (11.6-14.8) Platelet Count 156 K/UL (150-450) Mean Platelet Volume 6.9 FL (6.5-10.1) Neutrophils (%) (Auto) 72.9 % (45.0-75.0) Lymphocytes (%) (Auto) 13.1 % (20.0-45.0) Monocytes (%) (Auto) 8.7 % (1.0-10.0) Eosinophils (%) (Auto) 3.2 % (0.0-3.0) Basophils (%) (Auto) 2.1 % (0.0-2.0) Sodium Level 166 MMOL/L (136-145) Potassium Level 3.1 MMOL/L (3.5-5.1) Chloride Level 133 MMOL/L (98-107) Carbon Dioxide Level 19 MMOL/L (21-32) Anion Gap 15 mmol/L (5-15) Blood Urea Nitrogen 42 mg/dL (7-18) Creatinine 1.8 MG/DL (0.55-1.30) Estimat Glomerular Filtration Rate 42.2 mL/min (>60) Glucose Level 109 MG/DL (74-106) Uric Acid 4.4 MG/DL (2.6-7.2) Calcium Level 8.6 MG/DL (8.5-10.1) Phosphorus Level 3.2 MG/DL (2.5-4.9) Magnesium Level 1.9 MG/DL (1.8-2.4) Total Bilirubin 28.5 MG/DL (0.2-1.0) Direct Bilirubin 23.3 MG/DL (0.0-0.3) Aspartate Amino Transf (AST/SGOT) 174 U/L (15-37) Alanine Aminotransferase (ALT/SGPT) 19 U/L (12-78) Alkaline Phosphatase 245 U/L (46-116) C-Reactive Protein, Quantitative 9.7 mg/dL (0.00-0.90) Pro-B-Type Natriuretic Peptide 274 pg/mL (0-125) Total Protein 5.2 G/DL (6.4-8.2) Albumin 1.7 G/DL (3.4-5.0) Globulin 3.5 g/dL Albumin/Globulin Ratio 0.5 (1.0-2.7) Arterial Blood pH 7.399 (7.350-7.450) Arterial Blood Partial Pressure CO2 25.5 mmHg (35.0-45.0) Arterial Blood Partial Pressure O2 69.9 mmHg (75.0-100.0) Arterial Blood HCO3 15.4 mmol/L (22.0-26.0) Arterial Blood Oxygen Saturation 92.6 % (95-100) Arterial Blood Base Excess -8.3 (-2-2) Dave Test Positive Height (Feet): 5 Height (Inches): 9.00 Weight (Pounds): 219 Objective Physical Exam: Vitals: reviewed General Appearance: NAD HEENT: normocephalic, atraumatic ++ icterus jaundice, ng+ Neck: non-tender, normal alignment Respiratory/Chest: normal breath sounds bilaterally++ bipap Cardiovascular/Chest: normal peripheral pulses, normal rate Abdomen: normal bowel sounds, soft,+ peg Extremities: normal range of motion Marty Kebede MD Jun 27, 2019 16:57
[2019-06-27] MEDS: Dyna-Hex 2% Top Sol 2oz TOPIC SCH (20:13)
--- NOTE | 2019-06-27 20:15 | Progress Note ---
DATE: 06/27/2019 SUBJECTIVE: The patient is calmer today. He pulled out his NG tube. Has episodes of agitation. He knows his name and he knows his birthday and he knows he is in the hospital; however, he is unable to provide any meaningful information. He is easily agitated. MENTAL STATUS EXAMINATION: The patient is alert, confused, disoriented to date and has poor insight about the situation he is in. Mood is anxious. Affect is flat. Thought process is concrete. Thought content, no suicidal or homicidal ideations. ASSESSMENT: Alcohol dependence, alcohol withdrawal, encephalopathy. PLAN: 1. We will continue current medication. 2. Provide the patient reality orientation and supportive therapy. Kamilah Baker M.D. DR: DARIELA JOB#: [id number] CC:
[2019-06-27] MEDS ORDERED: D5 1/2NS 1000ml IV ONE (22:35)
[2019-06-27] MEDS ORDERED: NS 275ml ONE (22:35)
[2019-06-27] MEDS ORDERED: Tubing IV Secondary IV ONE (22:35)
[2019-06-28] VITALS (24 sets, daily range): BP systolic 86–119; BP diastolic 39–81
[2019-06-28 05:14] LABS: BASOPHILS % (AUTO) 1.5 % (0.0-2.0); HEMATOCRIT 26.6 % (42.0-52.0); HEMOGLOBIN 8.2 G/DL (14.2-18.0); LYMPHOCYTES % (AUTO) 12.4 % (20.0-45.0); MEAN CORPUSCULAR VOLUME 100 FL (80-99); MONOCYTES % (AUTO) 6.7 % (1.0-10.0); NEUTROPHILS % (AUTO) 77.3 % (45.0-75.0); PLATELET COUNT 107 K/UL (150-450); RED BLOOD COUNT 2.65 M/UL (4.70-6.10); RED CELL DISTRIBUTION WIDTH 24.1 % (11.6-14.8); WHITE BLOOD COUNT 15.6 K/UL (4.8-10.8)
[2019-06-28 05:45] LABS: AMMONIA 65 umol/L (11-32)
[2019-06-28 05:50] LABS: ALANINE AMINOTRANSFERASE 27 U/L (12-78); ALBUMIN 1.6 G/DL (3.4-5.0); ALBUMIN/GLOBULIN RATIO 0.5 (1.0-2.7); ALKALINE PHOSPHATASE 242 U/L (46-116); ANION GAP 15 mmol/L (5-15); ASPARTATE AMINO TRANSFERASE 174 U/L (15-37); BILIRUBIN,TOTAL 28.8 MG/DL (0.2-1.0); BLOOD UREA NITROGEN 53 mg/dL (7-18); CALCIUM 8.3 MG/DL (8.5-10.1); CARBON DIOXIDE 17 MMOL/L (21-32); CHLORIDE 126 MMOL/L (98-107); CHOLESTEROL 71 MG/DL (< 200); CREATININE 2.7 MG/DL (0.55-1.30); GAMMA GLUTAMYL TRANSPEPTIDASE 348 U/L (5-85); HDL CHOLESTEROL 11 MG/DL (40-60); PHOSPHORUS 3.1 MG/DL (2.5-4.9); POTASSIUM 3.4 MMOL/L (3.5-5.1); SODIUM 158 MMOL/L (136-145); TRIGLYCERIDES 227 MG/DL (30-150)
[2019-06-28] MEDS: metroNIDAZOLE 500mg tab NG SCH ×3 (05:57→23:00)
[2019-06-28 06:06] LABS: BILIRUBIN,DIRECT 23.5 MG/DL (0.0-0.3)
[2019-06-28] MEDS ORDERED: LORazepam 0.5mg tab NG PRN (08:15)
--- NOTE | 2019-06-28 08:44 | Pulmonolgy Critical Care Note ---
Critical Care - Asmt/Plan Assessment/Plan: Pulmonary CCM Consultation HPI This is a 39-year-old male who is an alcoholic with significant fatty liver on abdominal CT and alcoholic hepatitis, DF 16, not candidate for steroids currently per GI. He has been drinking heavily for 3 months straight. He stopped drinking [employer]. Noted to have Hepatic Encephalopathy and Hepatorenal Syndrome. No bleeding. No nausea no vomiting. Nothing made it better. Movement or exertion makes it worse. Noted to have significant hypokalemia and alkalosis, evidence of sepsis, source unclear - some bacteria in urine, mid ascites - possible SBP, dilated Gallbladder On NC O2, on Lactulose, pulled out NGT More awake, remains confused Allergies: No Known Allergies Past Medical History: Alcohol abuse All Other Systems: negative except mentioned in HPI Physical Exam Vital Signs Noted General Appearance: Jaundiced, awake Head: normocephalic, atraumatic Eyes: bilateral eye PERRL, bilateral eye EOMI, bilateral eye scleral icterus ENT: moist mm Neck: no masses, no LN Respiratory: chest non-tender, lungs clear, normal breath sounds Cardiovascular: regular rate, rhythm, Normal HS1, HS2, no murmur, tachycardia Gastrointestinal: Obese, hepatomegaly, some tenderness RUQ, normal bowel sounds , no mass, no rebound Musculoskeletal: moves all limbs Neurologic: responds to commands, awake Skin: jaundiced, moderate edema Impression: Acute alcoholic intoxication Severe Sepsis Alcoholic Hepatitis Possible Cirrhosis Metabolic and respiratory alkalosis Possible Portal Hypertension Hepatorenal syndrome - worsening renal function Hypernatremia Pancreatitis, alcoholic, acute Anemia Monitor CXR/ABG Plan ICU management NPO except meds IV antibiotics per ID Aspiration precautions GI/Renal following IVF per Nephrology Pressors PRN Intubate PRN for airway protection Transfuse PRN Thiamine Monitor labs K supplementation Adjust FIO2 - sats 90-96% Labs: noted EKG: Rate: tachycardiac Rhythm: NSR ST Segments: other - NSST changes Chest X-Ray: hypoventilatory exam, no consolidation, no effusion, no pneumothorax, no acute cardiopulmonary disease CT abdomen pelvis: Severely enlarged liver and fatty liver. Mild ascites. Critical Care - Objective Last 24 Hour Vital Signs Date Time Temp Pulse Resp B/P (MAP) Pulse Ox O2 Delivery O2 Flow Rate FiO2 06/28/19 07:32 99 Nasal Cannula 2.0 28 06/28/19 07:32 75 30 99 Nasal Cannula 2.0 28 06/28/19 07:00 75 30 104/81 (89) 99 06/28/19 06:00 77 32 91/49 (63) 99 06/28/19 05:00 79 31 107/48 (67) 99 06/28/19 04:00 98.4 81 35 98/40 (59) 99 06/28/19 04:00 Nasal Cannula 2.0 06/28/19 04:00 1.5 06/28/19 04:00 81 06/28/19 03:00 77 30 105/41 (62) 97 06/28/19 02:00 83 33 106/39 (61) 98 06/28/19 01:00 84 33 101/52 (68) 98 06/28/19 00:00 1.5 06/28/19 00:00 98.6 87 30 107/50 (69) 97 06/28/19 00:00 87 06/28/19 00:00 Nasal Cannula 2.0 06/27/19 23:00 79 32 93/41 (58) 96 06/27/19 22:00 83 32 98/42 (60) 96 06/27/19 21:00 80 32 98/50 (66) 97 06/27/19 20:25 98 Nasal Cannula 2.0 28 06/27/19 20:00 Nasal Cannula 2.0 06/27/19 20:00 98.2 82 30 106/51 (69) 98 06/27/19 20:00 82 06/27/19 20:00 1.5 06/27/19 19:00 81 33 92/43 (59) 96 06/27/19 18:00 84 32 100/42 (61) 97 06/27/19 17:00 80 32 110/70 (83) 96 06/27/19 16:00 1.5 06/27/19 16:00 98.3 80 31 90/60 (70) 96 06/27/19 16:00 Nasal Cannula 2.0 06/27/19 16:00 82 06/27/19 15:00 80 31 79/52 (61) 96 06/27/19 14:00 82 32 107/53 (71) 97 06/27/19 13:00 82 33 97/46 (63) 97 06/27/19 12:00 98.8 82 33 95/59 (71) 97 9/4/19 12:00 1.5 06/27/19 12:00 Nasal Cannula 2.0 06/27/19 12:00 77 06/27/19 11:00 77 29 105/50 (68) 97 06/27/19 10:00 77 31 96/48 (64) 97 06/27/19 09:00 75 29 97/54 (68) 98 Micro: Microbiology Date/Time Source Procedure Growth Status 06/26/19 12:10 Peritoneal Fluid Gram Stain - Final Resulted 06/26/19 12:10 Peritoneal Fluid Body Fluid Culture - Preliminary NO GROWTH AFTER 24 HOURS Resulted Critical Care - Subjective ROS Limited/Unobtainable: No FI02: 28 Sputum Amount: None Tube Feeding Amount: 45 I&O: Intake and Output 06/27/19 06/28/19 18:59 06:59 Intake Total 2457.5 ml 2440 ml Output Total 340 ml 1297 ml Balance 2117.5 ml 1143 ml Free Water 300 ml 150 ml IV Total 1987.5 ml 1800 ml Tube Feeding 170 ml 490 ml Output Urine Total 340 ml 297 ml Stool Total 1000 ml Quang Domingo MD Jun 28, 2019 08:44
--- NOTE | 2019-06-28 09:26 | Nephrology Progress Note ---
Assessment/Plan Problem List: (1) End-stage liver disease (2) Hepatorenal syndrome (3) Pancreatitis, alcoholic, acute (4) Acute alcoholic intoxication (5) Anemia (6) Respiratory failure (7) Hypernatremia Assessment Acute alcoholic intoxication End-stage liver disease Hepatorenal syndrome Pancreatitis, alcoholic, acute Anemia Plan met with Brother- Liliana lailarKlever Reyes Hospitality Coordinator Brother will discuss with family regarding DNR and comfort care K and Mag and phos supplement as needed has keith has RT (rectal tube) increase lactulose change IV to D5w 150 cc / h aim to change Zosyn and or decrease the dose discussed with RN Correct lytes IV protonix lactulose Folate and Thiamin per GI transfuse per consultants Subjective ROS Limited/Unobtainable: No Constitutional: Reports: malaise Objective Objective Last 24 Hour Vital Signs Date Time Temp Pulse Resp B/P (MAP) Pulse Ox O2 Delivery O2 Flow Rate FiO2 06/28/19 07:32 99 Nasal Cannula 2.0 28 06/28/19 07:32 75 30 99 Nasal Cannula 2.0 28 06/28/19 07:00 75 30 104/81 (89) 99 06/28/19 06:00 77 32 91/49 (63) 99 06/28/19 05:00 79 31 107/48 (67) 99 06/28/19 04:00 98.4 81 35 98/40 (59) 99 06/28/19 04:00 Nasal Cannula 2.0 06/28/19 04:00 1.5 06/28/19 04:00 81 06/28/19 03:00 77 30 105/41 (62) 97 06/28/19 02:00 83 33 106/39 (61) 98 06/28/19 01:00 84 33 101/52 (68) 98 06/28/19 00:00 1.5 06/28/19 00:00 98.6 87 30 107/50 (69) 97 06/28/19 00:00 87 06/28/19 00:00 Nasal Cannula 2.0 06/27/19 23:00 79 32 93/41 (58) 96 06/27/19 22:00 83 32 98/42 (60) 96 06/27/19 21:00 80 32 98/50 (66) 97 06/27/19 20:25 98 Nasal Cannula 2.0 28 06/27/19 20:00 Nasal Cannula 2.0 06/27/19 20:00 98.2 82 30 106/51 (69) 98 06/27/19 20:00 82 06/27/19 20:00 1.5 06/27/19 19:00 81 33 92/43 (59) 96 06/27/19 18:00 84 32 100/42 (61) 97 06/27/19 17:00 80 32 110/70 (83) 96 06/27/19 16:00 1.5 06/27/19 16:00 98.3 80 31 90/60 (70) 96 06/27/19 16:00 Nasal Cannula 2.0 06/27/19 16:00 82 06/27/19 15:00 80 31 79/52 (61) 96 06/27/19 14:00 82 32 107/53 (71) 97 06/27/19 13:00 82 33 97/46 (63) 97 06/27/19 12:00 98.8 82 33 95/59 (71) 97 06/27/19 12:00 1.5 06/27/19 12:00 Nasal Cannula 2.0 06/27/19 12:00 77 06/27/19 11:00 77 29 105/50 (68) 97 06/27/19 10:00 77 31 96/48 (64) 97 Intake and Output 06/27/19 06/28/19 18:59 06:59 Intake Total 2457.5 ml 2440 ml Output Total 340 ml 1297 ml Balance 2117.5 ml 1143 ml Free Water 300 ml 150 ml IV Total 1987.5 ml 1800 ml Tube Feeding 170 ml 490 ml Output Urine Total 340 ml 297 ml Stool Total 1000 ml Laboratory Tests 06/28/19 05:00: White Blood Count 15.6H, Red Blood Count 2.65L, Hemoglobin 8.2L, Hematocrit 26.6L, Mean Corpuscular Volume 100H, Mean Corpuscular Hemoglobin 30.8, Mean Corpuscular Hemoglobin Concent 30.7L, Red Cell Distribution Width 24.1H, Platelet Count 107L, Mean Platelet Volume 9.9, Neutrophils (%) (Auto) 77.3H, Lymphocytes (%) (Auto) 12.4L, Monocytes (%) (Auto) 6.7, Eosinophils (%) (Auto) 2.0, Basophils (%) (Auto) 1.5, Sodium Level 158H, Potassium Level 3.4L, Chloride Level 126H, Carbon Dioxide Level 17L, Anion Gap 15, Blood Urea Nitrogen 53H, Creatinine 2.7H, Estimat Glomerular Filtration Rate 26.4, Glucose Level 110H, Uric Acid 5.7, Calcium Level 8.3L, Phosphorus Level 3.1, Magnesium Level 1.8, Total Bilirubin 28.8H, Direct Bilirubin 23.5H, Gamma Glutamyl Transpeptidase 348H, Aspartate Amino Transf (AST/SGOT) 174H, Alanine Aminotransferase (ALT/SGPT) 27, Alkaline Phosphatase 242H, Ammonia 65H, C- Reactive Protein, Quantitative 12.3H, Pro-B-Type Natriuretic Peptide 509H, Total Protein 4.9L, Albumin 1.6L, Globulin 3.3, Albumin/Globulin Ratio 0.5L, Triglycerides Level 227H, Cholesterol Level 71, LDL Cholesterol 64, HDL Cholesterol 11L, Cholesterol/HDL Ratio 6.5H, Lipase 643H Height (Feet): 5 Height (Inches): 9.00 Weight (Pounds): 218 General Appearance: lethargic, confused, agitated - at times EENT: other - jaundiced Cardiovascular: tachycardia Respiratory/Chest: decreased breath sounds Abdomen: distended Arthur Lay MD Jun 28, 2019 09:26
[2019-06-28] MEDS: Pantoprazole Inj IVP SCH ×2 (09:27→20:37)
[2019-06-28] MEDS: Spironolactone 25mg tab NG SCH (09:28)
--- NOTE | 2019-06-28 09:35 | Hematology/Onc Progress Note ---
Assessment/Plan Assessment/Plan Assessment and Recs: # Thrombocytopenia - potential causes multifactorial, does have a history of etoh abuse, cirrhosis of the liver, hepatosplenomegaly, portal HTN, coagulopathy noted as well, likely oscillatory pattern can be due to abx as well --> Hep panel and HIV ordered (NEG) --> US abd does show, portal htn and cirrhosis ++ --> Peripheral smear ordered to evaluate for blasts /schistocytes reviewed and is negative --> abx and other meds have been reviewed --> ok for ppx if plt >50k w/ either heparin or lovenox --> Transfuse if Plt < 20k and fever, or if Plt < 10k without fever --> plt trend 80-->97-->117-->157k->216k-->107k # Anemia of chronic disease due to underlying chronic medical issues, multifactorial (myelosuprresion noted) --> Anemia workup has been reviewed, ferritin 297 --> No evidence of hemolysis is noted, peripheral smear has been reviewed. --> Hgb goal >7. Transfuse prn. --> Epogen or iron at this time is not particularly indicated --> Medications have been reviewed --> low threshold for gi evaluation in case has occult + --> hgb trend: 7.7-->8.2-->9->8.4-->8.3-->8.2 --> serum electrophoresis shows no m-spike 06/27 # Coagulopathy due to cirrhosis --> give Vitk as needed # Leukocytosis with sepsis is on abx --> ID following, appreciate recs --> wbc trend: 17k-->13.9 # Acute alcoholic intoxication --> etoh abuse history --> thiamine, folic acid, ivf # End-stage liver disease --> Hepatorenal syndrome r/o with renal, albumin prn # Pancreatitis, alcoholic, acute # Tachycardia # Dvt ppx with scds given oscillatory plt pattern The timing of this note does not necessarily reflect the time of the patient was seen. GREATLY APPRECIATE CONSULTATION. Subjective HEENT: Denies: no symptoms, eye pain, blurred vision, tearing, double vision, ear pain, ear discharge, nose pain, nose congestion, throat pain, throat swelling, mouth pain, mouth swelling, other Cardiovascular: Denies: no symptoms, chest pain, edema, irregular heart rate, lightheadedness, palpitations, syncope, other Respiratory: Denies: no symptoms, cough, shortness of breath, SOB with excertion, SOB at rest, sputum, wheezing, other Gastrointestinal/Abdominal: Denies: no symptoms, abdomen distended, abdominal pain, black stools, tarry stools, blood in stool, constipated, diarrhea, difficulty swallowing, nausea, poor appetite, poor fluid intake, rectal bleeding , vomiting, other Genitourinary: Denies: no symptoms, burning, discharge, frequency, flank pain, hematuria, incontinence, pain, urgency, other Neurologic/Psychiatric: Denies: no symptoms, anxiety, depressed, emotional problems, headache, numbness, paresthesia, pre-existing deficit, seizure, tingling, tremors, weakness, other Endocrine: Denies: no symptoms, excessive sweating, flushing, intolerance to cold, intolerance to heat, increased hunger, increased thirst, increased urine, unexplained weight gain, unexplained weight loss, other Allergies: Coded Allergies: No Known Allergies (Unverified , 06/20/19) Subjective 06/21: low k, ferritin 297, h/h stable, afebrile, blood transfused 06/22: in icu, on restraints, labs reviewed, no f/c, imaging reviewed 06/23: pain meds given, remains in icu, again in restraints, bili higher, inr as well, given vitk 06/25: no fevers, no chills, no bleeding, confused in bed in icu 06/26: no events to report, no bleeding, remains in icu, ++ bipap 06/27: icu,s/p paracentesis yesterday, off pressors, h/h stable 06/28: on ctx/flagyl, remains confused, no bleeding, plt is lower Objective Objective Current Medications Medications (Trade) Dose Ordered Sig/Gabriela Route PRN Reason Start Time Stop Time Status Last Admin Dose Admin Ceftriaxone Sodium 1 gm/ Dextrose 55 ml @ 110 mls/hr DAILY IVPB 06/27/19 13:00 07/04/19 12:59 06/27/19 13:52 Chlorhexidine Gluconate (Emilie-Hex 2%) 1 applic DAILY@2000 TOPIC 06/26/19 20:00 07/26/19 19:59 06/27/19 20:13 Dextrose 1,000 ml @ 150 mls/hr Q6H40M IV 06/27/19 09:00 07/25/19 08:59 06/28/19 05:13 Lactulose (Cephulac) 45 gm FOUR TIMES A DAY NG 06/28/19 13:00 07/20/19 12:59 Lorazepam (Ativan) 1.5 mg Q4H PRN NG For Anxiety 06/28/19 08:15 07/03/19 10:59 Metronidazole (Flagyl) 500 mg Q8HR NG 06/27/19 14:00 07/04/19 13:59 06/28/19 05:57 Norepinephrine Bitartrate 4 mg/ Dextrose 250 ml @ 0 mls/hr Q24H PRN IV For hypotension 06/25/19 19:00 07/25/19 18:59 Pantoprazole (Protonix) 40 mg EVERY 12 HOURS IVP 06/21/19 21:00 07/20/19 20:59 06/28/19 09:27 Potassium Chloride 100 ml @ 100 mls/hr Q1HR IVPB 06/28/19 09:00 06/28/19 11:59 06/28/19 09:29 Rifaximin (Xifaxan) 550 mg EVERY 12 HOURS NG 06/22/19 21:00 06/29/19 20:59 06/28/19 09:28 Spironolactone (Aldactone) 25 mg DAILY NG 06/24/19 09:15 07/24/19 09:14 06/28/19 09:28 Last 24 Hour Vital Signs Date Time Temp Pulse Resp B/P (MAP) Pulse Ox O2 Delivery O2 Flow Rate FiO2 06/28/19 07:32 99 Nasal Cannula 2.0 28 06/28/19 07:32 75 30 99 Nasal Cannula 2.0 28 06/28/19 07:00 75 30 104/81 (89) 99 06/28/19 06:00 77 32 91/49 (63) 99 06/28/19 05:00 79 31 107/48 (67) 99 06/28/19 04:00 98.4 81 35 98/40 (59) 99 06/28/19 04:00 Nasal Cannula 2.0 06/28/19 04:00 1.5 06/28/19 04:00 81 06/28/19 03:00 77 30 105/41 (62) 97 06/28/19 02:00 83 33 106/39 (61) 98 06/28/19 01:00 84 33 101/52 (68) 98 06/28/19 00:00 1.5 06/28/19 00:00 98.6 87 30 107/50 (69) 97 06/28/19 00:00 87 06/28/19 00:00 Nasal Cannula 2.0 06/27/19 23:00 79 32 93/41 (58) 96 06/27/19 22:00 83 32 98/42 (60) 96 06/27/19 21:00 80 32 98/50 (66) 97 06/27/19 20:25 98 Nasal Cannula 2.0 28 06/27/19 20:00 Nasal Cannula 2.0 06/27/19 20:00 98.2 82 30 106/51 (69) 98 06/27/19 20:00 82 06/27/19 20:00 1.5 06/27/19 19:00 81 33 92/43 (59) 96 06/27/19 18:00 84 32 100/42 (61) 97 06/27/19 17:00 80 32 110/70 (83) 96 06/27/19 16:00 1.5 06/27/19 16:00 98.3 80 31 90/60 (70) 96 06/27/19 16:00 Nasal Cannula 2.0 06/27/19 16:00 82 06/27/19 15:00 80 31 79/52 (61) 96 06/27/19 14:00 82 32 107/53 (71) 97 06/27/19 13:00 82 33 97/46 (63) 97 06/27/19 12:00 98.8 82 33 95/59 (71) 97 06/27/19 12:00 1.5 06/27/19 12:00 Nasal Cannula 2.0 06/27/19 12:00 77 06/27/19 11:00 77 29 105/50 (68) 97 06/27/19 10:00 77 31 96/48 (64) 97 06/27/19 09:00 75 29 97/54 (68) 98 06/27/19 08:00 Nasal Cannula 2.0 06/27/19 08:00 98.6 71 27 110/82 (91) 98 06/27/19 08:00 1.5 06/27/19 08:00 66 06/27/19 07:09 99 Nasal Cannula 2.0 28 06/27/19 07:00 70 25 106/50 (68) 97 06/27/19 06:00 69 24 101/50 (67) 99 06/27/19 05:11 73 24 99 Facial 30 06/27/19 05:00 73 24 105/54 (71) 99 06/27/19 04:00 72 06/27/19 04:00 98.2 68 24 102/64 (77) 98 06/27/19 04:00 30 06/27/19 04:00 Nasal Cannula 2.0 06/27/19 03:18 70 24 99 Facial 30 06/27/19 03:00 71 25 104/74 (84) 99 06/27/19 02:00 71 25 115/54 (74) 99 06/27/19 01:22 71 22 99 Facial 30 06/27/19 01:00 67 23 102/45 (64) 99 06/27/19 00:00 Nasal Cannula 2.0 06/27/19 00:00 71 06/27/19 00:00 98.3 71 25 111/53 (72) 99 06/27/19 00:00 30 06/26/19 23:20 64 25 99 Facial 30 06/26/19 23:00 75 29 101/56 (71) 98 06/26/19 22:00 72 27 111/48 (69) 98 06/26/19 21:16 78 30 97 Facial 30 06/26/19 21:00 72 26 107/57 (74) 97 06/26/19 20:00 30 06/26/19 20:00 Nasal Cannula 2.0 06/26/19 20:00 72 06/26/19 20:00 98.1 72 24 103/54 (70) 99 06/26/19 19:14 99 Bi-Pap 30 06/26/19 19:12 73 24 99 Facial 30 06/26/19 19:00 74 25 102/47 (65) 99 06/26/19 18:00 80 25 104/72 (83) 98 06/26/19 17:19 72 24 99 Facial 30 06/26/19 17:00 77 25 96/74 (81) 99 06/26/19 16:00 96.9 77 25 112/60 (77) 98 06/26/19 16:00 73 06/26/19 16:00 Nasal Cannula 2.0 06/26/19 16:00 30 06/26/19 15:15 79 28 100 Facial 30 78 35 100 Bi-Pap 30 06/26/19 15:00 80 26 121/96 (104) 98 06/26/19 14:00 85 30 126/58 (80) 99 06/26/19 13:00 99.2 96 28 125/76 (92) 98 06/26/19 13:00 30 06/26/19 12:59 96 40 98 Bi-Pap 30 06/26/19 12:57 92 28 99 Facial 30 06/26/19 12:00 100.0 90 32 121/61 (81) 99 06/26/19 12:00 40 06/26/19 12:00 Nasal Cannula 2.0 06/26/19 12:00 90 06/26/19 11:00 91 34 105/56 (72) 99 06/26/19 10:36 88 31 100 Facial 30 06/26/19 10:00 81 28 111/53 (72) 100 Intake and Output 06/27/19 06/28/19 18:59 06:59 Intake Total 2457.5 ml 2440 ml Output Total 340 ml 1297 ml Balance 2117.5 ml 1143 ml Free Water 300 ml 150 ml IV Total 1987.5 ml 1800 ml Tube Feeding 170 ml 490 ml Output Urine Total 340 ml 297 ml Stool Total 1000 ml Labs Test 06/25/19 21:50 06/25/19 22:35 06/26/19 03:40 06/26/19 09:30 White Blood Count 16.7 K/UL (4.8-10.8) 17.7 K/UL (4.8-10.8) Red Blood Count 2.96 M/UL (4.70-6.10) 2.80 M/UL (4.70-6.10) Hemoglobin 8.9 G/DL (14.2-18.0) 8.4 G/DL (14.2-18.0) Hematocrit 27.9 % (42.0-52.0) 27.7 % (42.0-52.0) Mean Corpuscular Volume 94 FL (80-99) 99 FL (80-99) Mean Corpuscular Hemoglobin 30.2 PG (27.0-31.0) 30.1 PG (27.0-31.0) Mean Corpuscular Hemoglobin Concent 32.1 G/DL (32.0-36.0) 30.4 G/DL (32.0-36.0) Red Cell Distribution Width 21.3 % (11.6-14.8) 24.7 % (11.6-14.8) Platelet Count 233 K/UL (150-450) 205 K/UL (150-450) Mean Platelet Volume 6.9 FL (6.5-10.1) 6.8 FL (6.5-10.1) Neutrophils (%) (Auto) 73.3 % (45.0-75.0) 70.5 % (45.0-75.0) Lymphocytes (%) (Auto) 12.3 % (20.0-45.0) 12.6 % (20.0-45.0) Monocytes (%) (Auto) 9.3 % (1.0-10.0) 11.5 % (1.0-10.0) Eosinophils (%) (Auto) 3.3 % (0.0-3.0) 3.6 % (0.0-3.0) Basophils (%) (Auto) 1.8 % (0.0-2.0) 1.9 % (0.0-2.0) Prothrombin Time 17.4 SEC (9.30-11.50) Prothromb Time International Ratio 1.7 (0.9-1.1) Sodium Level 165 MMOL/L (136-145) 167 MMOL/L (136-145) Potassium Level 4.2 MMOL/L (3.5-5.1) 3.4 MMOL/L (3.5-5.1) Chloride Level 131 MMOL/L (98-107) 134 MMOL/L (98-107) Carbon Dioxide Level 19 MMOL/L (21-32) 18 MMOL/L (21-32) Anion Gap 14 mmol/L (5-15) 14 mmol/L (5-15) Blood Urea Nitrogen 33 mg/dL (7-18) 38 mg/dL (7-18) Creatinine 1.6 MG/DL (0.55-1.30) 1.9 MG/DL (0.55-1.30) Estimat Glomerular Filtration Rate 48.4 mL/min (>60) 39.7 mL/min (>60) Glucose Level 137 MG/DL (74-106) 133 MG/DL (74-106) Calcium Level 8.7 MG/DL (8.5-10.1) 8.9 MG/DL (8.5-10.1) Total Bilirubin 30.3 MG/DL (0.2-1.0) 30.2 MG/DL (0.2-1.0) Direct Bilirubin 24.1 MG/DL (0.0-0.3) 24.4 MG/DL (0.0-0.3) Aspartate Amino Transf (AST/SGOT) 178 U/L (15-37) 171 U/L (15-37) Alanine Aminotransferase (ALT/SGPT) 14 U/L (12-78) 15 U/L (12-78) Alkaline Phosphatase 325 U/L (46-116) 277 U/L (46-116) Total Protein 6.1 G/DL (6.4-8.2) 5.8 G/DL (6.4-8.2) Albumin 2.0 G/DL (3.4-5.0) 2.2 G/DL (3.4-5.0) Globulin 4.1 g/dL 3.6 g/dL Albumin/Globulin Ratio 0.5 (1.0-2.7) 0.6 (1.0-2.7) Arterial Blood pH 7.423 (7.350-7.450) 7.391 (7.350-7.450) Arterial Blood Partial Pressure CO2 28.1 mmHg (35.0-45.0) 29.9 mmHg (35.0-45.0) Arterial Blood Partial Pressure O2 77.5 mmHg (75.0-100.0) 90.7 mmHg (75.0-100.0) Arterial Blood HCO3 17.9 mmol/L (22.0-26.0) 17.7 mmol/L (22.0-26.0) Arterial Blood Oxygen Saturation 94.7 % (95-100) 96.2 % (95-100) Arterial Blood Base Excess -5.7 (-2-2) -6.4 (-2-2) Dave Test Positive Positive Phosphorus Level 1.7 MG/DL (2.5-4.9) Magnesium Level 2.1 MG/DL (1.8-2.4) Gamma Glutamyl Transpeptidase 575 U/L (5-85) Ammonia 67 umol/L (11-32) C-Reactive Protein, Quantitative 6.4 mg/dL (0.00-0.90) Pro-B-Type Natriuretic Peptide 175 pg/mL (0-125) Test 06/26/19 12:10 06/27/19 05:00 06/27/19 08:25 06/28/19 05:00 Body Fluid Source Peritoneal Body Fluid Volume 23 mL Body Fluid Appearance Slightly cloudy (Clear) Body Fluid RBC 82 /CUMM Body Fluid Total Nucleated Cells 13 /CUMM Body Fluid Polynuclear WBCs (%) 0 % Body Fluid Mononuclear WBCs (%) 100 % Body Fluid Mesothelial Cells (%) 0 % Body Fluid Comment Pathologist review White Blood Count 13.9 K/UL (4.8-10.8) 15.6 K/UL (4.8-10.8) Red Blood Count 2.73 M/UL (4.70-6.10) 2.65 M/UL (4.70-6.10) Hemoglobin 8.3 G/DL (14.2-18.0) 8.2 G/DL (14.2-18.0) Hematocrit 27.2 % (42.0-52.0) 26.6 % (42.0-52.0) Mean Corpuscular Volume 99 FL (80-99) 100 FL (80-99) Mean Corpuscular Hemoglobin 30.5 PG (27.0-31.0) 30.8 PG (27.0-31.0) Mean Corpuscular Hemoglobin Concent 30.7 G/DL (32.0-36.0) 30.7 G/DL (32.0-36.0) Red Cell Distribution Width 23.5 % (11.6-14.8) 24.1 % (11.6-14.8) Platelet Count 156 K/UL (150-450) 107 K/UL (150-450) Mean Platelet Volume 6.9 FL (6.5-10.1) 9.9 FL (6.5-10.1) Neutrophils (%) (Auto) 72.9 % (45.0-75.0) 77.3 % (45.0-75.0) Lymphocytes (%) (Auto) 13.1 % (20.0-45.0) 12.4 % (20.0-45.0) Monocytes (%) (Auto) 8.7 % (1.0-10.0) 6.7 % (1.0-10.0) Eosinophils (%) (Auto) 3.2 % (0.0-3.0) 2.0 % (0.0-3.0) Basophils (%) (Auto) 2.1 % (0.0-2.0) 1.5 % (0.0-2.0) Sodium Level 166 MMOL/L (136-145) 158 MMOL/L (136-145) Potassium Level 3.1 MMOL/L (3.5-5.1) 3.4 MMOL/L (3.5-5.1) Chloride Level 133 MMOL/L (98-107) 126 MMOL/L (98-107) Carbon Dioxide Level 19 MMOL/L (21-32) 17 MMOL/L (21-32) Anion Gap 15 mmol/L (5-15) 15 mmol/L (5-15) Blood Urea Nitrogen 42 mg/dL (7-18) 53 mg/dL (7-18) Creatinine 1.8 MG/DL (0.55-1.30) 2.7 MG/DL (0.55-1.30) Estimat Glomerular Filtration Rate 42.2 mL/min (>60) 26.4 mL/min (>60) Glucose Level 109 MG/DL (74-106) 110 MG/DL (74-106) Uric Acid 4.4 MG/DL (2.6-7.2) 5.7 MG/DL (2.6-7.2) Calcium Level 8.6 MG/DL (8.5-10.1) 8.3 MG/DL (8.5-10.1) Phosphorus Level 3.2 MG/DL (2.5-4.9) 3.1 MG/DL (2.5-4.9) Magnesium Level 1.9 MG/DL (1.8-2.4) 1.8 MG/DL (1.8-2.4) Total Bilirubin 28.5 MG/DL (0.2-1.0) 28.8 MG/DL (0.2-1.0) Direct Bilirubin 23.3 MG/DL (0.0-0.3) 23.5 MG/DL (0.0-0.3) Aspartate Amino Transf (AST/SGOT) 174 U/L (15-37) 174 U/L (15-37) Alanine Aminotransferase (ALT/SGPT) 19 U/L (12-78) 27 U/L (12-78) Alkaline Phosphatase 245 U/L (46-116) 242 U/L (46-116) C-Reactive Protein, Quantitative 9.7 mg/dL (0.00-0.90) 12.3 mg/dL (0.00-0.90) Pro-B-Type Natriuretic Peptide 274 pg/mL (0-125) 509 pg/mL (0-125) Total Protein 5.2 G/DL (6.4-8.2) 4.9 G/DL (6.4-8.2) Albumin 1.7 G/DL (3.4-5.0) 1.6 G/DL (3.4-5.0) Globulin 3.5 g/dL 3.3 g/dL Albumin/Globulin Ratio 0.5 (1.0-2.7) 0.5 (1.0-2.7) Arterial Blood pH 7.399 (7.350-7.450) Arterial Blood Partial Pressure CO2 25.5 mmHg (35.0-45.0) Arterial Blood Partial Pressure O2 69.9 mmHg (75.0-100.0) Arterial Blood HCO3 15.4 mmol/L (22.0-26.0) Arterial Blood Oxygen Saturation 92.6 % (95-100) Arterial Blood Base Excess -8.3 (-2-2) Dave Test Positive Gamma Glutamyl Transpeptidase 348 U/L (5-85) Ammonia 65 umol/L (11-32) Triglycerides Level 227 MG/DL (30-150) Cholesterol Level 71 MG/DL (< 200) LDL Cholesterol 64 mg/dL (<100) HDL Cholesterol 11 MG/DL (40-60) Cholesterol/HDL Ratio 6.5 (3.3-4.4) Lipase 643 U/L (73-393) Height (Feet): 5 Height (Inches): 9.00 Weight (Pounds): 218 Objective Physical Exam: Vitals: reviewed General Appearance: NAD HEENT: normocephalic, atraumatic ++ icterus jaundice, ng+ Neck: non-tender, normal alignment Respiratory/Chest: normal breath sounds bilaterally++ bipap Cardiovascular/Chest: normal peripheral pulses, normal rate Abdomen: normal bowel sounds, soft,+ peg Extremities: normal range of motion Marty Kebede MD Jun 28, 2019 09:35
[2019-06-28] MEDS: cefTRIAXone 1 GM in D5W 55 ML IVPB SCH (09:41)
--- NOTE | 2019-06-28 09:56 | Cardiac Electrophysiology PN ---
Assessment/Plan Assessment/Plan 1. Sinus tachycardia due to alcohol withdrawal and hepatic encephalopathy. No SVT or atrial fibrillation. EF 55% 2. Hepatic failure and cirrhosis. On Lactulose and albumin S/P paracentesis 3. Hypotension BP 80 better after albumin. S/P PICC line in case needs pressors 4. Hepatorenal syndrome. Creatinine is 2. Fu . 5. Hypokalemia. 6. Alcohol intoxication. Thiamine, folate, and Librium. 7. Hepatic encephalopathy DW RN Subjective Subjective in ICU in restraints and lethargic. NG feeding in progress No arrhythmias and off pressors Objective Last 24 Hour Vital Signs Date Time Temp Pulse Resp B/P (MAP) Pulse Ox O2 Delivery O2 Flow Rate FiO2 06/28/19 07:32 99 Nasal Cannula 2.0 28 06/28/19 07:32 75 30 99 Nasal Cannula 2.0 28 06/28/19 07:00 75 30 104/81 (89) 99 06/28/19 06:00 77 32 91/49 (63) 99 06/28/19 05:00 79 31 107/48 (67) 99 06/28/19 04:00 98.4 81 35 98/40 (59) 99 06/28/19 04:00 Nasal Cannula 2.0 06/28/19 04:00 1.5 06/28/19 04:00 81 06/28/19 03:00 77 30 105/41 (62) 97 06/28/19 02:00 83 33 106/39 (61) 98 06/28/19 01:00 84 33 101/52 (68) 98 06/28/19 00:00 1.5 06/28/19 00:00 98.6 87 30 107/50 (69) 97 06/28/19 00:00 87 06/28/19 00:00 Nasal Cannula 2.0 06/27/19 23:00 79 32 93/41 (58) 96 06/27/19 22:00 83 32 98/42 (60) 96 06/27/19 21:00 80 32 98/50 (66) 97 06/27/19 20:25 98 Nasal Cannula 2.0 28 06/27/19 20:00 Nasal Cannula 2.0 06/27/19 20:00 98.2 82 30 106/51 (69) 98 06/27/19 20:00 82 06/27/19 20:00 1.5 06/27/19 19:00 81 33 92/43 (59) 96 06/27/19 18:00 84 32 100/42 (61) 97 06/27/19 17:00 80 32 110/70 (83) 96 06/27/19 16:00 1.5 06/27/19 16:00 98.3 80 31 90/60 (70) 96 06/27/19 16:00 Nasal Cannula 2.0 06/27/19 16:00 82 06/27/19 15:00 80 31 79/52 (61) 96 06/27/19 14:00 82 32 107/53 (71) 97 06/27/19 13:00 82 33 97/46 (63) 97 06/27/19 12:00 98.8 82 33 95/59 (71) 97 06/27/19 12:00 1.5 06/27/19 12:00 Nasal Cannula 2.0 06/27/19 12:00 77 06/27/19 11:00 77 29 105/50 (68) 97 06/27/19 10:00 77 31 96/48 (64) 97 Intake and Output 06/27/19 06/28/19 18:59 06:59 Intake Total 2457.5 ml 2440 ml Output Total 340 ml 1297 ml Balance 2117.5 ml 1143 ml Free Water 300 ml 150 ml IV Total 1987.5 ml 1800 ml Tube Feeding 170 ml 490 ml Output Urine Total 340 ml 297 ml Stool Total 1000 ml Laboratory Tests Test 06/28/19 05:00 White Blood Count 15.6 K/UL (4.8-10.8) H Red Blood Count 2.65 M/UL (4.70-6.10) L Hemoglobin 8.2 G/DL (14.2-18.0) L Hematocrit 26.6 % (42.0-52.0) L Mean Corpuscular Volume 100 FL (80-99) H Mean Corpuscular Hemoglobin 30.8 PG (27.0-31.0) Mean Corpuscular Hemoglobin Concent 30.7 G/DL (32.0-36.0) L Red Cell Distribution Width 24.1 % (11.6-14.8) H Platelet Count 107 K/UL (150-450) L Mean Platelet Volume 9.9 FL (6.5-10.1) Neutrophils (%) (Auto) 77.3 % (45.0-75.0) H Lymphocytes (%) (Auto) 12.4 % (20.0-45.0) L Monocytes (%) (Auto) 6.7 % (1.0-10.0) Eosinophils (%) (Auto) 2.0 % (0.0-3.0) Basophils (%) (Auto) 1.5 % (0.0-2.0) Sodium Level 158 MMOL/L (136-145) H Potassium Level 3.4 MMOL/L (3.5-5.1) L Chloride Level 126 MMOL/L (98-107) H Carbon Dioxide Level 17 MMOL/L (21-32) L Anion Gap 15 mmol/L (5-15) Blood Urea Nitrogen 53 mg/dL (7-18) H Creatinine 2.7 MG/DL (0.55-1.30) H Estimat Glomerular Filtration Rate 26.4 mL/min (>60) Glucose Level 110 MG/DL (74-106) H Uric Acid 5.7 MG/DL (2.6-7.2) Calcium Level 8.3 MG/DL (8.5-10.1) L Phosphorus Level 3.1 MG/DL (2.5-4.9) Magnesium Level 1.8 MG/DL (1.8-2.4) Total Bilirubin 28.8 MG/DL (0.2-1.0) H Direct Bilirubin 23.5 MG/DL (0.0-0.3) H Gamma Glutamyl Transpeptidase 348 U/L (5-85) H Aspartate Amino Transf (AST/SGOT) 174 U/L (15-37) H Alanine Aminotransferase (ALT/SGPT) 27 U/L (12-78) Alkaline Phosphatase 242 U/L (46-116) H Ammonia 65 umol/L (11-32) H C-Reactive Protein, Quantitative 12.3 mg/dL (0.00-0.90) H Pro-B-Type Natriuretic Peptide 509 pg/mL (0-125) H Total Protein 4.9 G/DL (6.4-8.2) L Albumin 1.6 G/DL (3.4-5.0) L Globulin 3.3 g/dL Albumin/Globulin Ratio 0.5 (1.0-2.7) L Triglycerides Level 227 MG/DL (30-150) H Cholesterol Level 71 MG/DL (< 200) LDL Cholesterol 64 mg/dL (<100) HDL Cholesterol 11 MG/DL (40-60) L Cholesterol/HDL Ratio 6.5 (3.3-4.4) H Lipase 643 U/L (73-393) H Microbiology Date/Time Source Procedure Growth Status 06/26/19 12:10 Peritoneal Fluid Gram Stain - Final Resulted 06/26/19 12:10 Peritoneal Fluid Body Fluid Culture - Preliminary Resulted Objective HEAD AND NECK: No JVD. Sclera is icteric LUNGS: Decreased breath sounds. CARDIOVASCULAR: TachyS1 and S2 with no gallop. ABDOMEN: Distended with ascites. EXTREMITIES: 2+ pitting edema. Felice Smith MD Jun 28, 2019 09:56
--- NOTE | 2019-06-28 10:14 | General Progress Note ---
Assessment/Plan Problem List: (1) Pancreatitis, alcoholic, acute ICD Codes: K85.20 - Alcohol induced acute pancreatitis without necrosis or infection SNOMED: 781479751, [id number] Qualifiers: Qualified Codes: K85.20 - Alcohol induced acute pancreatitis without necrosis or infection (2) Acute alcoholic intoxication ICD Codes: F10.929 - Alcohol use, unspecified with intoxication, unspecified SNOMED: 79256290, [id number] Qualifiers: Qualified Codes: F10.920 - Alcohol use, unspecified with intoxication, uncomplicated (3) Anemia ICD Codes: D64.9 - Anemia, unspecified SNOMED: 843735595 Qualifiers: Qualified Codes: D64.9 - Anemia, unspecified Status: not improved, deteriorating Assessment/Plan: discriminant factor of 16 start NGTF>>> Glucerna 1.5 at 45 cc repeat labs fu nephrology cont lactulose xifaxan hold paracentesis given rising Nurse Gynecology dc aldactone add albumin swallow eval Subjective ROS Limited/Unobtainable: No Allergies: Coded Allergies: No Known Allergies (Unverified , 06/20/19) Objective Last 24 Hour Vital Signs Date Time Temp Pulse Resp B/P (MAP) Pulse Ox O2 Delivery O2 Flow Rate FiO2 06/28/19 07:32 99 Nasal Cannula 2.0 28 06/28/19 07:32 75 30 99 Nasal Cannula 2.0 28 06/28/19 07:00 75 30 104/81 (89) 99 06/28/19 06:00 77 32 91/49 (63) 99 06/28/19 05:00 79 31 107/48 (67) 99 06/28/19 04:00 98.4 81 35 98/40 (59) 99 06/28/19 04:00 Nasal Cannula 2.0 06/28/19 04:00 1.5 06/28/19 04:00 81 06/28/19 03:00 77 30 105/41 (62) 97 06/28/19 02:00 83 33 106/39 (61) 98 06/28/19 01:00 84 33 101/52 (68) 98 06/28/19 00:00 1.5 06/28/19 00:00 98.6 87 30 107/50 (69) 97 06/28/19 00:00 87 06/28/19 00:00 Nasal Cannula 2.0 06/27/19 23:00 79 32 93/41 (58) 96 06/27/19 22:00 83 32 98/42 (60) 96 06/27/19 21:00 80 32 98/50 (66) 97 06/27/19 20:25 98 Nasal Cannula 2.0 28 06/27/19 20:00 Nasal Cannula 2.0 06/27/19 20:00 98.2 82 30 106/51 (69) 98 06/27/19 20:00 82 06/27/19 20:00 1.5 06/27/19 19:00 81 33 92/43 (59) 96 06/27/19 18:00 84 32 100/42 (61) 97 06/27/19 17:00 80 32 110/70 (83) 96 06/27/19 16:00 1.5 06/27/19 16:00 98.3 80 31 90/60 (70) 96 06/27/19 16:00 Nasal Cannula 2.0 06/27/19 16:00 82 06/27/19 15:00 80 31 79/52 (61) 96 06/27/19 14:00 82 32 107/53 (71) 97 06/27/19 13:00 82 33 97/46 (63) 97 06/27/19 12:00 98.8 82 33 95/59 (71) 97 06/27/19 12:00 1.5 06/27/19 12:00 Nasal Cannula 2.0 06/27/19 12:00 77 06/27/19 11:00 77 29 105/50 (68) 97 Intake and Output 06/27/19 06/28/19 18:59 06:59 Intake Total 2457.5 ml 2440 ml Output Total 340 ml 1297 ml Balance 2117.5 ml 1143 ml Free Water 300 ml 150 ml IV Total 1987.5 ml 1800 ml Tube Feeding 170 ml 490 ml Output Urine Total 340 ml 297 ml Stool Total 1000 ml Laboratory Tests 06/28/19 05:00: White Blood Count 15.6H, Red Blood Count 2.65L, Hemoglobin 8.2L, Hematocrit 26.6L, Mean Corpuscular Volume 100H, Mean Corpuscular Hemoglobin 30.8, Mean Corpuscular Hemoglobin Concent 30.7L, Red Cell Distribution Width 24.1H, Platelet Count 107L, Mean Platelet Volume 9.9, Neutrophils (%) (Auto) 77.3H, Lymphocytes (%) (Auto) 12.4L, Monocytes (%) (Auto) 6.7, Eosinophils (%) (Auto) 2.0, Basophils (%) (Auto) 1.5, Sodium Level 158H, Potassium Level 3.4L, Chloride Level 126H, Carbon Dioxide Level 17L, Anion Gap 15, Blood Urea Nitrogen 53H, Creatinine 2.7H, Estimat Glomerular Filtration Rate 26.4, Glucose Level 110H, Uric Acid 5.7, Calcium Level 8.3L, Phosphorus Level 3.1, Magnesium Level 1.8, Total Bilirubin 28.8H, Direct Bilirubin 23.5H, Gamma Glutamyl Transpeptidase 348H, Aspartate Amino Transf (AST/SGOT) 174H, Alanine Aminotransferase (ALT/SGPT) 27, Alkaline Phosphatase 242H, Ammonia 65H, C- Reactive Protein, Quantitative 12.3H, Pro-B-Type Natriuretic Peptide 509H, Total Protein 4.9L, Albumin 1.6L, Globulin 3.3, Albumin/Globulin Ratio 0.5L, Triglycerides Level 227H, Cholesterol Level 71, LDL Cholesterol 64, HDL Cholesterol 11L, Cholesterol/HDL Ratio 6.5H, Lipase 643H Height (Feet): 5 Height (Inches): 9.00 Weight (Pounds): 218 General Appearance: lethargic EENT: normal ENT inspection Neck: supple Cardiovascular: normal rate Respiratory/Chest: decreased breath sounds Abdomen: soft, decreased bowel sounds, distended Extremities: non-tender Merlin Esposito MD Jun 28, 2019 10:14
[2019-06-28] MEDS: Lactulose 20gm/30ml UDC NG SCH ×3 (12:06→20:38)
--- NOTE | 2019-06-28 13:22 | Infectious Diseases Prog Note ---
Assessment/Plan Assessment/Plan IMPRESSION: 1. Sepsis. 2. Systemic inflammatory response syndrome. 3. Tachycardia. 4. Leukocytosis. 5. colitis, 6.Alcoholic pancreatitis, 7.Cirrhosis of liver, 8. Acute renal failure likely hepatorenal syndrome, 9.Anemia, 10. thrombocytopenia, 11.hypocalcemia, 12.hypomagnesemia, corrected 13 hypokalemia, corrected 14, Alcohol withdrawal. 15.Metabolic encephalopathy 16. Hypophosphatemia 17. Hypernatremia RECOMMENDATION: continue Rocephin & Flagyl Poor prognosis Subjective ROS Limited/Unobtainable: Yes Constitutional: Reports: no symptoms Gastrointestinal/Abdominal: Reports: no symptoms Neurologic: Reports: other - on restraint, talks with himself Allergies: Coded Allergies: No Known Allergies (Unverified , 06/20/19) Objective Vital Signs Last 24 Hour Vital Signs Date Time Temp Pulse Resp B/P (MAP) Pulse Ox O2 Delivery O2 Flow Rate FiO2 06/28/19 12:00 80 06/28/19 12:00 1.5 06/28/19 12:00 Nasal Cannula 2.0 06/28/19 11:00 80 30 119/59 (79) 97 06/28/19 10:00 77 35 100/39 (59) 99 06/28/19 09:00 77 31 86/57 (67) 99 06/28/19 08:00 1.5 06/28/19 08:00 77 06/28/19 08:00 Nasal Cannula 2.0 06/28/19 08:00 97.8 76 30 106/52 (70) 98 06/28/19 07:32 99 Nasal Cannula 2.0 28 06/28/19 07:32 75 30 99 Nasal Cannula 2.0 28 06/28/19 07:00 75 30 104/81 (89) 99 06/28/19 06:00 77 32 91/49 (63) 99 06/28/19 05:00 79 31 107/48 (67) 99 06/28/19 04:00 98.4 81 35 98/40 (59) 99 06/28/19 04:00 Nasal Cannula 2.0 06/28/19 04:00 1.5 06/28/19 04:00 81 06/28/19 03:00 77 30 105/41 (62) 97 06/28/19 02:00 83 33 106/39 (61) 98 06/28/19 01:00 84 33 101/52 (68) 98 06/28/19 00:00 1.5 06/28/19 00:00 98.6 87 30 107/50 (69) 97 06/28/19 00:00 87 06/28/19 00:00 Nasal Cannula 2.0 06/27/19 23:00 79 32 93/41 (58) 96 06/27/19 22:00 83 32 98/42 (60) 96 06/27/19 21:00 80 32 98/50 (66) 97 06/27/19 20:25 98 Nasal Cannula 2.0 28 06/27/19 20:00 Nasal Cannula 2.0 06/27/19 20:00 98.2 82 30 106/51 (69) 98 06/27/19 20:00 82 06/27/19 20:00 1.5 06/27/19 19:00 81 33 92/43 (59) 96 06/27/19 18:00 84 32 100/42 (61) 97 06/27/19 17:00 80 32 110/70 (83) 96 06/27/19 16:00 1.5 06/27/19 16:00 98.3 80 31 90/60 (70) 96 06/27/19 16:00 Nasal Cannula 2.0 06/27/19 16:00 82 06/27/19 15:00 80 31 79/52 (61) 96 06/27/19 14:00 82 32 107/53 (71) 97 Height (Feet): 5 Height (Inches): 9.00 Weight (Pounds): 218 General Appearance: no acute distress HEENT: mucous membranes moist, other - icterus Respiratory/Chest: lungs clear Cardiovascular: normal rate, other - left arm PICC line Abdomen: distended, other - umbilical hernia Extremities: no edema Neurologic/Psychiatric: alert, responsive Microbiology Date/Time Source Procedure Growth Status 06/26/19 12:10 Peritoneal Fluid Gram Stain - Final Resulted 06/26/19 12:10 Peritoneal Fluid Body Fluid Culture - Preliminary Resulted Laboratory Tests Test 06/28/19 05:00 White Blood Count 15.6 K/UL (4.8-10.8) H Red Blood Count 2.65 M/UL (4.70-6.10) L Hemoglobin 8.2 G/DL (14.2-18.0) L Hematocrit 26.6 % (42.0-52.0) L Mean Corpuscular Volume 100 FL (80-99) H Mean Corpuscular Hemoglobin 30.8 PG (27.0-31.0) Mean Corpuscular Hemoglobin Concent 30.7 G/DL (32.0-36.0) L Red Cell Distribution Width 24.1 % (11.6-14.8) H Platelet Count 107 K/UL (150-450) L Mean Platelet Volume 9.9 FL (6.5-10.1) Neutrophils (%) (Auto) 77.3 % (45.0-75.0) H Lymphocytes (%) (Auto) 12.4 % (20.0-45.0) L Monocytes (%) (Auto) 6.7 % (1.0-10.0) Eosinophils (%) (Auto) 2.0 % (0.0-3.0) Basophils (%) (Auto) 1.5 % (0.0-2.0) Sodium Level 158 MMOL/L (136-145) H Potassium Level 3.4 MMOL/L (3.5-5.1) L Chloride Level 126 MMOL/L (98-107) H Carbon Dioxide Level 17 MMOL/L (21-32) L Anion Gap 15 mmol/L (5-15) Blood Urea Nitrogen 53 mg/dL (7-18) H Creatinine 2.7 MG/DL (0.55-1.30) H Estimat Glomerular Filtration Rate 26.4 mL/min (>60) Glucose Level 110 MG/DL (74-106) H Uric Acid 5.7 MG/DL (2.6-7.2) Calcium Level 8.3 MG/DL (8.5-10.1) L Phosphorus Level 3.1 MG/DL (2.5-4.9) Magnesium Level 1.8 MG/DL (1.8-2.4) Total Bilirubin 28.8 MG/DL (0.2-1.0) H Direct Bilirubin 23.5 MG/DL (0.0-0.3) H Gamma Glutamyl Transpeptidase 348 U/L (5-85) H Aspartate Amino Transf (AST/SGOT) 174 U/L (15-37) H Alanine Aminotransferase (ALT/SGPT) 27 U/L (12-78) Alkaline Phosphatase 242 U/L (46-116) H Ammonia 65 umol/L (11-32) H C-Reactive Protein, Quantitative 12.3 mg/dL (0.00-0.90) H Pro-B-Type Natriuretic Peptide 509 pg/mL (0-125) H Total Protein 4.9 G/DL (6.4-8.2) L Albumin 1.6 G/DL (3.4-5.0) L Globulin 3.3 g/dL Albumin/Globulin Ratio 0.5 (1.0-2.7) L Triglycerides Level 227 MG/DL (30-150) H Cholesterol Level 71 MG/DL (< 200) LDL Cholesterol 64 mg/dL (<100) HDL Cholesterol 11 MG/DL (40-60) L Cholesterol/HDL Ratio 6.5 (3.3-4.4) H Lipase 643 U/L (73-393) H Current Medications Medications (Trade) Dose Ordered Sig/Gabriela Route PRN Reason Start Time Stop Time Status Last Admin Dose Admin Ceftriaxone Sodium 1 gm/ Dextrose 55 ml @ 110 mls/hr DAILY IVPB 06/27/19 13:00 07/04/19 12:59 06/28/19 09:41 Chlorhexidine Gluconate (Emilie-Hex 2%) 1 applic DAILY@2000 TOPIC 06/26/19 20:00 07/26/19 19:59 06/27/19 20:13 Dextrose 1,000 ml @ 150 mls/hr Q6H40M IV 06/27/19 09:00 07/25/19 08:59 06/28/19 10:12 Lactulose (Cephulac) 45 gm FOUR TIMES A DAY NG 06/28/19 13:00 07/20/19 12:59 06/28/19 12:06 Lorazepam (Ativan) 1.5 mg Q4H PRN NG For Anxiety 06/28/19 08:15 07/03/19 10:59 Metronidazole (Flagyl) 500 mg Q8HR NG 06/27/19 14:00 07/04/19 13:59 06/28/19 05:57 Norepinephrine Bitartrate 4 mg/ Dextrose 250 ml @ 0 mls/hr Q24H PRN IV For hypotension 06/25/19 19:00 07/25/19 18:59 Pantoprazole (Protonix) 40 mg EVERY 12 HOURS IVP 06/21/19 21:00 07/20/19 20:59 06/28/19 09:27 Rifaximin (Xifaxan) 550 mg EVERY 12 HOURS NG 06/22/19 21:00 06/29/19 20:59 06/28/19 09:28 Ilia Chakraborty MD Jun 28, 2019 13:22
--- NOTE | 2019-06-28 20:15 | Progress Note ---
DATE: 06/28/2019 SUBJECTIVE: The patient is still in the ICU less agitated today, arousable. Knows his name however disoriented to the date. Has waxing and waning consciousness. MENTAL STATUS EXAMINATION: The patient is disoriented, confused. Mood is anxious. Affect is flat. Thought process, there is a paucity of thought content. Thought content, no suicidal or homicidal ideation. ASSESSMENT: 1. Acute encephalopathy. 2. Alcohol dependence. 3. Alcohol withdrawal. PLAN: 1. We will continue current care. 2. Provide the patient with reality orientation. Kamilah Baker M.D. DR: DARIELA JOB#: [id number] CC: RYANNE
[2019-06-28] MEDS: Dyna-Hex 2% Top Sol 2oz TOPIC SCH (20:38)
--- NOTE | 2019-06-28 21:35 | General Progress Note ---
Assessment/Plan Problem List: (1) Anemia ICD Codes: D64.9 - Anemia, unspecified SNOMED: 546792249 Qualifiers: Qualified Codes: D64.9 - Anemia, unspecified (2) Acute alcoholic intoxication ICD Codes: F10.929 - Alcohol use, unspecified with intoxication, unspecified SNOMED: 75388507, 5557573 Qualifiers: Qualified Codes: F10.920 - Alcohol use, unspecified with intoxication, uncomplicated (3) End-stage liver disease ICD Codes: K72.90 - Hepatic failure, unspecified without coma SNOMED: 219329415 (4) Hepatorenal syndrome ICD Codes: K76.7 - Hepatorenal syndrome SNOMED: 84281613, 6436300 (5) Pancreatitis, alcoholic, acute ICD Codes: K85.20 - Alcohol induced acute pancreatitis without necrosis or infection SNOMED: 778812185, 9473022 Qualifiers: Qualified Codes: K85.20 - Alcohol induced acute pancreatitis without necrosis or infection (6) Respiratory failure ICD Codes: J96.90 - Respiratory failure, unspecified, unspecified whether with hypoxia or hypercapnia SNOMED: 603125435 Status: not improved, unchanged, deteriorating Assessment/Plan: hepatorenal syndrome very poor prognosis anasarca elev lft etoh cirrhosis jaundice confused distended abdomen s/p paracentesis Subjective ROS Limited/Unobtainable: Yes Allergies: Coded Allergies: No Known Allergies (Unverified , 06/20/19) Objective Last 24 Hour Vital Signs Date Time Temp Pulse Resp B/P (MAP) Pulse Ox O2 Delivery O2 Flow Rate FiO2 06/28/19 20:00 1.5 06/28/19 20:00 89 06/28/19 20:00 Nasal Cannula 2.0 06/28/19 18:42 98 Nasal Cannula 2.0 28 06/28/19 18:00 90 32 109/53 (71) 97 06/28/19 17:00 83 32 115/50 (71) 98 06/28/19 16:00 98.8 81 32 105/55 (72) 97 06/28/19 16:00 81 06/28/19 16:00 1.5 06/28/19 16:00 Nasal Cannula 2.0 06/28/19 15:00 80 27 107/50 (69) 97 06/28/19 14:00 83 33 118/53 (74) 98 06/28/19 13:00 83 33 91/41 (58) 97 06/28/19 12:00 80 06/28/19 12:00 1.5 06/28/19 12:00 Nasal Cannula 2.0 06/28/19 12:00 85 30 89/52 (64) 97 06/28/19 11:00 80 30 119/59 (79) 97 06/28/19 10:00 77 35 100/39 (59) 99 06/28/19 09:00 77 31 86/57 (67) 99 06/28/19 08:00 1.5 06/28/19 08:00 77 06/28/19 08:00 Nasal Cannula 2.0 06/28/19 08:00 97.8 76 30 106/52 (70) 98 06/28/19 07:32 99 Nasal Cannula 2.0 28 06/28/19 07:32 75 30 99 Nasal Cannula 2.0 28 06/28/19 07:00 75 30 104/81 (89) 99 06/28/19 06:00 77 32 91/49 (63) 99 06/28/19 05:00 79 31 107/48 (67) 99 06/28/19 04:00 98.4 81 35 98/40 (59) 99 06/28/19 04:00 Nasal Cannula 2.0 06/28/19 04:00 1.5 06/28/19 04:00 81 06/28/19 03:00 77 30 105/41 (62) 97 06/28/19 02:00 83 33 106/39 (61) 98 06/28/19 01:00 84 33 101/52 (68) 98 06/28/19 00:00 1.5 06/28/19 00:00 98.6 87 30 107/50 (69) 97 06/28/19 00:00 87 06/28/19 00:00 Nasal Cannula 2.0 06/27/19 23:00 79 32 93/41 (58) 96 06/27/19 22:00 83 32 98/42 (60) 96 Intake and Output 06/27/19 06/28/19 19:00 07:00 Intake Total 2360 ml 2455 ml Output Total 312 ml 1325 ml Balance 2048 ml 1130 ml Free Water 300 ml 150 ml IV Total 1860 ml 1800 ml Tube Feeding 200 ml 505 ml Output Urine Total 312 ml 325 ml Stool Total 1000 ml Laboratory Tests 06/28/19 05:00: White Blood Count 15.6H, Red Blood Count 2.65L, Hemoglobin 8.2L, Hematocrit 26.6L, Mean Corpuscular Volume 100H, Mean Corpuscular Hemoglobin 30.8, Mean Corpuscular Hemoglobin Concent 30.7L, Red Cell Distribution Width 24.1H, Platelet Count 107L, Mean Platelet Volume 9.9, Neutrophils (%) (Auto) 77.3H, Lymphocytes (%) (Auto) 12.4L, Monocytes (%) (Auto) 6.7, Eosinophils (%) (Auto) 2.0, Basophils (%) (Auto) 1.5, Sodium Level 158H, Potassium Level 3.4L, Chloride Level 126H, Carbon Dioxide Level 17L, Anion Gap 15, Blood Urea Nitrogen 53H, Creatinine 2.7H, Estimat Glomerular Filtration Rate 26.4, Glucose Level 110H, Uric Acid 5.7, Calcium Level 8.3L, Phosphorus Level 3.1, Magnesium Level 1.8, Total Bilirubin 28.8H, Direct Bilirubin 23.5H, Gamma Glutamyl Transpeptidase 348H, Aspartate Amino Transf (AST/SGOT) 174H, Alanine Aminotransferase (ALT/SGPT) 27, Alkaline Phosphatase 242H, Ammonia 65H, C- Reactive Protein, Quantitative 12.3H, Pro-B-Type Natriuretic Peptide 509H, Total Protein 4.9L, Albumin 1.6L, Globulin 3.3, Albumin/Globulin Ratio 0.5L, Triglycerides Level 227H, Cholesterol Level 71, LDL Cholesterol 64, HDL Cholesterol 11L, Cholesterol/HDL Ratio 6.5H, Lipase 643H Height (Feet): 5 Height (Inches): 9.00 Weight (Pounds): 218 General Appearance: confused Cardiovascular: normal rate Abdomen: tender Deejay Saldaña MD Jun 28, 2019 21:35
[2019-06-29] VITALS (24 sets, daily range): BP systolic 91–137; BP diastolic 41–69
[2019-06-29 04:36] LABS: HEMATOCRIT 25.3 % (42.0-52.0); MEAN CORPUSCULAR VOLUME 98 FL (80-99); PLATELET COUNT 72 K/UL (150-450); RED BLOOD COUNT 2.58 M/UL (4.70-6.10); WHITE BLOOD COUNT 19.5 K/UL (4.8-10.8)
[2019-06-29 04:44] LABS: INR 1.5 (0.9-1.1)
[2019-06-29 05:35] LABS: ALANINE AMINOTRANSFERASE 24 U/L (12-78); ALBUMIN 1.7 G/DL (3.4-5.0); ALBUMIN/GLOBULIN RATIO 0.5 (1.0-2.7); ALKALINE PHOSPHATASE 243 U/L (46-116); ANION GAP 14 mmol/L (5-15); ASPARTATE AMINO TRANSFERASE 146 U/L (15-37); BLOOD UREA NITROGEN 49 mg/dL (7-18); CALCIUM 8.4 MG/DL (8.5-10.1); CARBON DIOXIDE 15 MMOL/L (21-32); CHLORIDE 124 MMOL/L (98-107); CREATININE 2.3 MG/DL (0.55-1.30); GAMMA GLUTAMYL TRANSPEPTIDASE 300 U/L (5-85); PHOSPHORUS 2.7 MG/DL (2.5-4.9); POTASSIUM 3.1 MMOL/L (3.5-5.1); SODIUM 153 MMOL/L (136-145)
[2019-06-29] MEDS: metroNIDAZOLE 500mg tab NG SCH ×3 (05:41→22:14)
--- NOTE | 2019-06-29 08:01 | Nephrology Progress Note ---
Assessment/Plan Problem List: (1) End-stage liver disease (2) Hepatorenal syndrome (3) Pancreatitis, alcoholic, acute (4) Acute alcoholic intoxication (5) Anemia (6) Respiratory failure (7) Hypernatremia Assessment Acute alcoholic intoxication End-stage liver disease Hepatorenal syndrome Pancreatitis, alcoholic, acute Anemia Plan on 06/28/19 met with Brother- Liliana zonia Reyes [employer] Brother will discuss with family regarding DNR and comfort care K and Mag and phos supplement as needed has keith has RT (rectal tube) increase lactulose change IV to D5w 150 cc / h aim to change Zosyn and or decrease the dose discussed with RN Correct lytes IV protonix lactulose Folate and Thiamin per GI transfuse per consultants Subjective ROS Limited/Unobtainable: No Constitutional: Reports: malaise Objective Objective Last 24 Hour Vital Signs Date Time Temp Pulse Resp B/P (MAP) Pulse Ox O2 Delivery O2 Flow Rate FiO2 06/29/19 07:00 74 32 117/61 (79) 99 06/29/19 06:55 98 Nasal Cannula 2.0 28 06/29/19 06:55 77 28 98 Nasal Cannula 2.0 28 06/29/19 06:00 76 32 114/52 (72) 99 06/29/19 05:00 78 32 114/55 (74) 100 06/29/19 04:00 Nasal Cannula 2.0 06/29/19 04:00 1.5 06/29/19 04:00 82 06/29/19 04:00 99.8 78 23 97/49 (65) 100 06/29/19 03:00 85 32 114/44 (67) 100 06/29/19 02:00 88 35 104/41 (62) 100 06/29/19 01:00 91 38 105/50 (68) 95 06/29/19 00:00 90 06/29/19 00:00 97 37 137/61 (86) 97 06/29/19 00:00 Nasal Cannula 2.0 06/29/19 00:00 1.5 06/28/19 23:00 95 32 111/52 (71) 97 06/28/19 22:00 97 32 107/46 (66) 97 06/28/19 21:00 98 32 109/53 (71) 97 06/28/19 20:00 1.5 06/28/19 20:00 89 06/28/19 20:00 Nasal Cannula 2.0 06/28/19 20:00 91 32 112/47 (68) 98 06/28/19 19:00 87 32 111/53 (72) 97 06/28/19 18:42 98 Nasal Cannula 2.0 28 06/28/19 18:00 90 32 109/53 (71) 97 06/28/19 17:00 83 32 115/50 (71) 98 06/28/19 16:00 98.8 81 32 105/55 (72) 97 06/28/19 16:00 81 06/28/19 16:00 1.5 06/28/19 16:00 Nasal Cannula 2.0 06/28/19 15:00 80 27 107/50 (69) 97 06/28/19 14:00 83 33 118/53 (74) 98 06/28/19 13:00 83 33 91/41 (58) 97 06/28/19 12:00 80 06/28/19 12:00 1.5 06/28/19 12:00 Nasal Cannula 2.0 06/28/19 12:00 85 30 89/52 (64) 97 06/28/19 11:00 80 30 119/59 (79) 97 06/28/19 10:00 77 35 100/39 (59) 99 06/28/19 09:00 77 31 86/57 (67) 99 Intake and Output 06/28/19 06/29/19 19:00 07:00 Intake Total 3050 ml 2540 ml Output Total 825 ml 1130 ml Balance 2225 ml 1410 ml Free Water 300 ml 200 ml IV Total 2210 ml 1800 ml Tube Feeding 540 ml 540 ml Output Urine Total 425 ml 580 ml Stool Total 400 ml 550 ml Laboratory Tests 06/29/19 04:00: White Blood Count 19.5H, Red Blood Count 2.58L, Hemoglobin 8.0L, Hematocrit 25.3L, Mean Corpuscular Volume 98, Mean Corpuscular Hemoglobin 31.3H, Mean Corpuscular Hemoglobin Concent 31.8L, Red Cell Distribution Width 24.0H, Platelet Count 72L, Mean Platelet Volume 8.2, Neutrophils (%) (Auto) , Lymphocytes (%) (Auto) , Monocytes (%) (Auto) , Eosinophils (%) (Auto) , Basophils (%) (Auto) , Neutrophils % (Manual) [Pending], Lymphocytes % (Manual) [Pending], Platelet Estimate [Pending], Platelet Morphology [Pending], Prothrombin Time 15.9H, Prothromb Time International Ratio 1.5H, Sodium Level 153H, Potassium Level 3.1L, Chloride Level 124H, Carbon Dioxide Level 15L, Anion Gap 14, Blood Urea Nitrogen 49H, Creatinine 2.3H, Estimat Glomerular Filtration Rate 31.8, Glucose Level 120H, Uric Acid 5.5, Calcium Level 8.4L, Phosphorus Level 2.7, Magnesium Level 1.8, Total Bilirubin 31.0H, Direct Bilirubin 25.0H, Gamma Glutamyl Transpeptidase 300H, Aspartate Amino Transf (AST /SGOT) 146H, Alanine Aminotransferase (ALT/SGPT) 24, Alkaline Phosphatase 243H, Total Protein 5.1L, Albumin 1.7L, Globulin 3.4, Albumin/Globulin Ratio 0.5L Height (Feet): 5 Height (Inches): 9.00 Weight (Pounds): 218 General Appearance: mild distress Cardiovascular: tachycardia Respiratory/Chest: decreased breath sounds Abdomen: distended Arthur Lay MD Jun 29, 2019 08:01
[2019-06-29] MEDS: Lactulose 20gm/30ml UDC NG SCH ×4 (08:21→20:52)
[2019-06-29] MEDS: cefTRIAXone 1 GM in D5W 55 ML IVPB SCH (08:21)
[2019-06-29] MEDS: Pantoprazole Inj IVP SCH ×2 (08:21→20:52)
--- NOTE | 2019-06-29 09:21 | General Progress Note ---
Assessment/Plan Problem List: (1) Pancreatitis, alcoholic, acute ICD Codes: K85.20 - Alcohol induced acute pancreatitis without necrosis or infection SNOMED: 243444116, 3972497 Qualifiers: Qualified Codes: K85.20 - Alcohol induced acute pancreatitis without necrosis or infection (2) Acute alcoholic intoxication ICD Codes: F10.929 - Alcohol use, unspecified with intoxication, unspecified SNOMED: 68771597, 0496454 Qualifiers: Qualified Codes: F10.920 - Alcohol use, unspecified with intoxication, uncomplicated (3) Anemia ICD Codes: D64.9 - Anemia, unspecified SNOMED: 866524051 Qualifiers: Qualified Codes: D64.9 - Anemia, unspecified Status: not improved, unchanged, deteriorating Assessment/Plan: discriminant factor of 16 start NGTF>>> Glucerna 1.5 at 45 cc repeat labs fu nephrology cont lactulose xifaxan hold paracentesis given rising [employer] Inspector off aldactone add albumin swallow eval Subjective ROS Limited/Unobtainable: No Allergies: Coded Allergies: No Known Allergies (Unverified , 06/20/19) Objective Last 24 Hour Vital Signs Date Time Temp Pulse Resp B/P (MAP) Pulse Ox O2 Delivery O2 Flow Rate FiO2 06/29/19 08:00 97.2 82 36 118/54 (75) 98 06/29/19 08:00 1.5 06/29/19 08:00 Nasal Cannula 2.0 06/29/19 07:00 74 32 117/61 (79) 99 06/29/19 06:55 98 Nasal Cannula 2.0 28 06/29/19 06:55 77 28 98 Nasal Cannula 2.0 28 06/29/19 06:00 76 32 114/52 (72) 99 06/29/19 05:00 78 32 114/55 (74) 100 06/29/19 04:00 Nasal Cannula 2.0 06/29/19 04:00 1.5 06/29/19 04:00 82 06/29/19 04:00 99.8 78 23 97/49 (65) 100 06/29/19 03:00 85 32 114/44 (67) 100 06/29/19 02:00 88 35 104/41 (62) 100 06/29/19 01:00 91 38 105/50 (68) 95 06/29/19 00:00 90 06/29/19 00:00 97 37 137/61 (86) 97 06/29/19 00:00 Nasal Cannula 2.0 06/29/19 00:00 1.5 06/28/19 23:00 95 32 111/52 (71) 97 06/28/19 22:00 97 32 107/46 (66) 97 06/28/19 21:00 98 32 109/53 (71) 97 06/28/19 20:00 1.5 06/28/19 20:00 89 06/28/19 20:00 Nasal Cannula 2.0 06/28/19 20:00 91 32 112/47 (68) 98 06/28/19 19:00 87 32 111/53 (72) 97 06/28/19 18:42 98 Nasal Cannula 2.0 28 06/28/19 18:00 90 32 109/53 (71) 97 06/28/19 17:00 83 32 115/50 (71) 98 06/28/19 16:00 98.8 81 32 105/55 (72) 97 06/28/19 16:00 81 06/28/19 16:00 1.5 06/28/19 16:00 Nasal Cannula 2.0 06/28/19 15:00 80 27 107/50 (69) 97 06/28/19 14:00 83 33 118/53 (74) 98 06/28/19 13:00 83 33 91/41 (58) 97 06/28/19 12:00 80 06/28/19 12:00 1.5 06/28/19 12:00 Nasal Cannula 2.0 06/28/19 12:00 85 30 89/52 (64) 97 06/28/19 11:00 80 30 119/59 (79) 97 06/28/19 10:00 77 35 100/39 (59) 99 Intake and Output 06/28/19 06/29/19 18:59 06:59 Intake Total 3050 ml 2540 ml Output Total 415 ml 1520 ml Balance 2635 ml 1020 ml Free Water 300 ml 200 ml IV Total 2210 ml 1800 ml Tube Feeding 540 ml 540 ml Output Urine Total 415 ml 570 ml Stool Total 950 ml Laboratory Tests 06/29/19 04:00: White Blood Count 19.5H, Red Blood Count 2.58L, Hemoglobin 8.0L, Hematocrit 25.3L, Mean Corpuscular Volume 98, Mean Corpuscular Hemoglobin 31.3H, Mean Corpuscular Hemoglobin Concent 31.8L, Red Cell Distribution Width 24.0H, Platelet Count 72L, Mean Platelet Volume 8.2, Neutrophils (%) (Auto) , Lymphocytes (%) (Auto) , Monocytes (%) (Auto) , Eosinophils (%) (Auto) , Basophils (%) (Auto) , Differential Total Cells Counted 100, Neutrophils % ( Manual) 72, Lymphocytes % (Manual) 20, Monocytes % (Manual) 8, Eosinophils % ( Manual) 0, Basophils % (Manual) 0, Band Neutrophils 0, Platelet Estimate DecreasedL, Platelet Morphology Normal, Polychromasia 1+, Hypochromasia 1+, Anisocytosis 2+, Prothrombin Time 15.9H, Prothromb Time International Ratio 1.5H , Sodium Level 153H, Potassium Level 3.1L, Chloride Level 124H, Carbon Dioxide Level 15L, Anion Gap 14, Blood Urea Nitrogen 49H, Creatinine 2.3H, Estimat Glomerular Filtration Rate 31.8, Glucose Level 120H, Uric Acid 5.5, Calcium Level 8.4L, Phosphorus Level 2.7, Magnesium Level 1.8, Total Bilirubin 31.0H, Direct Bilirubin 25.0H, Gamma Glutamyl Transpeptidase 300H, Aspartate Amino Transf (AST/SGOT) 146H, Alanine Aminotransferase (ALT/SGPT) 24, Alkaline Phosphatase 243H, Total Protein 5.1L, Albumin 1.7L, Globulin 3.4, Albumin/ Globulin Ratio 0.5L Height (Feet): 5 Height (Inches): 9.00 Weight (Pounds): 218 General Appearance: lethargic EENT: normal ENT inspection Neck: supple Cardiovascular: normal rate Respiratory/Chest: decreased breath sounds Abdomen: normal bowel sounds, non tender, soft Extremities: non-tender Merlin Esposito MD Jun 29, 2019 09:21
--- NOTE | 2019-06-29 09:47 | Hematology/Onc Progress Note ---
Assessment/Plan Assessment/Plan Assessment and Recs: # Thrombocytopenia - potential causes multifactorial, does have a history of etoh abuse, cirrhosis of the liver, hepatosplenomegaly, portal HTN, coagulopathy noted as well, likely oscillatory pattern can be due to abx as well --> Hep panel and HIV ordered (NEG) --> US abd does show, portal htn and cirrhosis ++ --> Peripheral smear ordered to evaluate for blasts /schistocytes reviewed and is negative --> abx and other meds have been reviewed --> ok for ppx if plt >50k w/ either heparin or lovenox --> Transfuse if Plt < 20k and fever, or if Plt < 10k without fever --> plt trend 80-->97-->117-->157k->216k-->107k-->72k # Anemia of chronic disease due to underlying chronic medical issues, multifactorial (myelosuprresion noted) --> Anemia workup has been reviewed, ferritin 297 --> No evidence of hemolysis is noted, peripheral smear has been reviewed. --> Hgb goal >7. Transfuse prn. --> Epogen or iron at this time is not particularly indicated --> Medications have been reviewed --> low threshold for gi evaluation in case has occult + --> hgb trend: 7.7-->8.2-->9->8.4-->8.3-->8.2-->8 --> serum electrophoresis shows no m-spike 06/27 # Coagulopathy due to cirrhosis --> give Vitk as needed # Leukocytosis with sepsis is on abx --> ID following, appreciate recs --> wbc trend: 17k-->13.9-->19.5 # Acute alcoholic intoxication --> etoh abuse history --> thiamine, folic acid, ivf # End-stage liver disease --> Hepatorenal syndrome r/o with renal, albumin prn # Pancreatitis, alcoholic, acute # Tachycardia # Dvt ppx with scds given oscillatory plt pattern The timing of this note does not necessarily reflect the time of the patient was seen. GREATLY APPRECIATE CONSULTATION. Subjective Allergies: Coded Allergies: No Known Allergies (Unverified , 06/20/19) Subjective 06/21: low k, ferritin 297, h/h stable, afebrile, blood transfused 06/22: in icu, on restraints, labs reviewed, no f/c, imaging reviewed 06/23: pain meds given, remains in icu, again in restraints, bili higher, inr as well, given vitk 06/25: no fevers, no chills, no bleeding, confused in bed in icu 06/26: no events to report, no bleeding, remains in icu, ++ bipap 06/27: icu,s/p paracentesis yesterday, off pressors, h/h stable 06/28: on ctx/flagyl, remains confused, no bleeding, plt is lower 06/29: no f/c, on abx, no acute events, no distress, labs reviewed Objective Objective Current Medications Medications (Trade) Dose Ordered Sig/Gabriela Route PRN Reason Start Time Stop Time Status Last Admin Dose Admin Ceftriaxone Sodium 1 gm/ Dextrose 55 ml @ 110 mls/hr DAILY IVPB 06/27/19 13:00 07/04/19 12:59 06/29/19 08:21 Chlorhexidine Gluconate (Emilie-Hex 2%) 1 applic DAILY@2000 TOPIC 06/26/19 20:00 07/26/19 19:59 06/28/19 20:38 Dextrose 1,000 ml @ 150 mls/hr Q6H40M IV 06/27/19 09:00 07/25/19 08:59 06/29/19 05:55 Lactulose (Cephulac) 45 gm FOUR TIMES A DAY NG 06/28/19 13:00 07/20/19 12:59 06/29/19 08:21 Lorazepam (Ativan) 1.5 mg Q4H PRN NG For Anxiety 06/28/19 08:15 07/03/19 10:59 Metronidazole (Flagyl) 500 mg Q8HR NG 06/27/19 14:00 07/04/19 13:59 06/29/19 05:41 Midodrine (Pro-Amatine) 10 mg THREE TIMES A DAY ORAL 06/29/19 13:00 07/29/19 12:59 UNV Norepinephrine Bitartrate 4 mg/ Dextrose 250 ml @ 0 mls/hr Q24H PRN IV For hypotension 06/25/19 19:00 07/25/19 18:59 Octreotide Acetate 500 mcg/ Sodium Chloride 500 ml @ 50 mls/hr Q10H IV 06/29/19 10:00 07/29/19 09:59 Pantoprazole (Protonix) 40 mg EVERY 12 HOURS IVP 06/21/19 21:00 07/20/19 20:59 06/29/19 08:21 Potassium Chloride 100 ml @ 100 mls/hr Q1H IV 06/29/19 07:00 06/29/19 10:59 06/29/19 08:22 Rifaximin (Xifaxan) 550 mg EVERY 12 HOURS NG 06/22/19 21:00 06/29/19 20:59 06/29/19 08:21 Last 24 Hour Vital Signs Date Time Temp Pulse Resp B/P (MAP) Pulse Ox O2 Delivery O2 Flow Rate FiO2 06/29/19 09:00 79 32 100/57 (71) 99 06/29/19 08:00 97.2 82 36 118/54 (75) 98 06/29/19 08:00 1.5 06/29/19 08:00 Nasal Cannula 2.0 06/29/19 08:00 75 06/29/19 07:00 74 32 117/61 (79) 99 06/29/19 06:55 98 Nasal Cannula 2.0 28 06/29/19 06:55 77 28 98 Nasal Cannula 2.0 28 06/29/19 06:00 76 32 114/52 (72) 99 06/29/19 05:00 78 32 114/55 (74) 100 06/29/19 04:00 Nasal Cannula 2.0 06/29/19 04:00 1.5 06/29/19 04:00 82 06/29/19 04:00 99.8 78 23 97/49 (65) 100 06/29/19 03:00 85 32 114/44 (67) 100 06/29/19 02:00 88 35 104/41 (62) 100 06/29/19 01:00 91 38 105/50 (68) 95 06/29/19 00:00 90 06/29/19 00:00 97 37 137/61 (86) 97 06/29/19 00:00 Nasal Cannula 2.0 06/29/19 00:00 1.5 06/28/19 23:00 95 32 111/52 (71) 97 06/28/19 22:00 97 32 107/46 (66) 97 06/28/19 21:00 98 32 109/53 (71) 97 06/28/19 20:00 1.5 06/28/19 20:00 89 06/28/19 20:00 Nasal Cannula 2.0 06/28/19 20:00 91 32 112/47 (68) 98 06/28/19 19:00 87 32 111/53 (72) 97 06/28/19 18:42 98 Nasal Cannula 2.0 28 06/28/19 18:00 90 32 109/53 (71) 97 06/28/19 17:00 83 32 115/50 (71) 98 06/28/19 16:00 98.8 81 32 105/55 (72) 97 06/28/19 16:00 81 06/28/19 16:00 1.5 06/28/19 16:00 Nasal Cannula 2.0 06/28/19 15:00 80 27 107/50 (69) 97 06/28/19 14:00 83 33 118/53 (74) 98 06/28/19 13:00 83 33 91/41 (58) 97 06/28/19 12:00 80 06/28/19 12:00 1.5 06/28/19 12:00 Nasal Cannula 2.0 06/28/19 12:00 85 30 89/52 (64) 97 06/28/19 11:00 80 30 119/59 (79) 97 06/28/19 10:00 77 35 100/39 (59) 99 06/28/19 09:00 77 31 86/57 (67) 99 06/28/19 08:00 1.5 06/28/19 08:00 77 06/28/19 08:00 Nasal Cannula 2.0 06/28/19 08:00 97.8 76 30 106/52 (70) 98 06/28/19 07:32 99 Nasal Cannula 2.0 28 06/28/19 07:32 75 30 99 Nasal Cannula 2.0 28 06/28/19 07:00 75 30 104/81 (89) 99 06/28/19 06:00 77 32 91/49 (63) 99 06/28/19 05:00 79 31 107/48 (67) 99 06/28/19 04:00 98.4 81 35 98/40 (59) 99 06/28/19 04:00 Nasal Cannula 2.0 06/28/19 04:00 1.5 06/28/19 04:00 81 06/28/19 03:00 77 30 105/41 (62) 97 06/28/19 02:00 83 33 106/39 (61) 98 06/28/19 01:00 84 33 101/52 (68) 98 06/28/19 00:00 1.5 06/28/19 00:00 98.6 87 30 107/50 (69) 97 06/28/19 00:00 87 06/28/19 00:00 Nasal Cannula 2.0 06/27/19 23:00 79 32 93/41 (58) 96 06/27/19 22:00 83 32 98/42 (60) 96 06/27/19 21:00 80 32 98/50 (66) 97 06/27/19 20:25 98 Nasal Cannula 2.0 28 06/27/19 20:00 Nasal Cannula 2.0 06/27/19 20:00 98.2 82 30 106/51 (69) 98 06/27/19 20:00 82 06/27/19 20:00 1.5 06/27/19 19:00 81 33 92/43 (59) 96 06/27/19 18:00 84 32 100/42 (61) 97 06/27/19 17:00 80 32 110/70 (83) 96 06/27/19 16:00 1.5 06/27/19 16:00 98.3 80 31 90/60 (70) 96 06/27/19 16:00 Nasal Cannula 2.0 06/27/19 16:00 82 06/27/19 15:00 80 31 79/52 (61) 96 06/27/19 14:00 82 32 107/53 (71) 97 06/27/19 13:00 82 33 97/46 (63) 97 06/27/19 12:00 98.8 82 33 95/59 (71) 97 06/27/19 12:00 1.5 06/27/19 12:00 Nasal Cannula 2.0 06/27/19 12:00 77 06/27/19 11:00 77 29 105/50 (68) 97 06/27/19 10:00 77 31 96/48 (64) 97 Intake and Output 06/28/19 06/29/19 18:59 06:59 Intake Total 3050 ml 2540 ml Output Total 415 ml 1520 ml Balance 2635 ml 1020 ml Free Water 300 ml 200 ml IV Total 2210 ml 1800 ml Tube Feeding 540 ml 540 ml Output Urine Total 415 ml 570 ml Stool Total 950 ml Labs Test 06/26/19 12:10 06/27/19 05:00 06/27/19 08:25 06/28/19 05:00 Body Fluid Source Peritoneal Body Fluid Volume 23 mL Body Fluid Appearance Slightly cloudy (Clear) Body Fluid RBC 82 /CUMM Body Fluid Total Nucleated Cells 13 /CUMM Body Fluid Polynuclear WBCs (%) 0 % Body Fluid Mononuclear WBCs (%) 100 % Body Fluid Mesothelial Cells (%) 0 % Body Fluid Comment Pathologist review White Blood Count 13.9 K/UL (4.8-10.8) 15.6 K/UL (4.8-10.8) Red Blood Count 2.73 M/UL (4.70-6.10) 2.65 M/UL (4.70-6.10) Hemoglobin 8.3 G/DL (14.2-18.0) 8.2 G/DL (14.2-18.0) Hematocrit 27.2 % (42.0-52.0) 26.6 % (42.0-52.0) Mean Corpuscular Volume 99 FL (80-99) 100 FL (80-99) Mean Corpuscular Hemoglobin 30.5 PG (27.0-31.0) 30.8 PG (27.0-31.0) Mean Corpuscular Hemoglobin Concent 30.7 G/DL (32.0-36.0) 30.7 G/DL (32.0-36.0) Red Cell Distribution Width 23.5 % (11.6-14.8) 24.1 % (11.6-14.8) Platelet Count 156 K/UL (150-450) 107 K/UL (150-450) Mean Platelet Volume 6.9 FL (6.5-10.1) 9.9 FL (6.5-10.1) Neutrophils (%) (Auto) 72.9 % (45.0-75.0) 77.3 % (45.0-75.0) Lymphocytes (%) (Auto) 13.1 % (20.0-45.0) 12.4 % (20.0-45.0) Monocytes (%) (Auto) 8.7 % (1.0-10.0) 6.7 % (1.0-10.0) Eosinophils (%) (Auto) 3.2 % (0.0-3.0) 2.0 % (0.0-3.0) Basophils (%) (Auto) 2.1 % (0.0-2.0) 1.5 % (0.0-2.0) Sodium Level 166 MMOL/L (136-145) 158 MMOL/L (136-145) Potassium Level 3.1 MMOL/L (3.5-5.1) 3.4 MMOL/L (3.5-5.1) Chloride Level 133 MMOL/L (98-107) 126 MMOL/L (98-107) Carbon Dioxide Level 19 MMOL/L (21-32) 17 MMOL/L (21-32) Anion Gap 15 mmol/L (5-15) 15 mmol/L (5-15) Blood Urea Nitrogen 42 mg/dL (7-18) 53 mg/dL (7-18) Creatinine 1.8 MG/DL (0.55-1.30) 2.7 MG/DL (0.55-1.30) Estimat Glomerular Filtration Rate 42.2 mL/min (>60) 26.4 mL/min (>60) Glucose Level 109 MG/DL (74-106) 110 MG/DL (74-106) Uric Acid 4.4 MG/DL (2.6-7.2) 5.7 MG/DL (2.6-7.2) Calcium Level 8.6 MG/DL (8.5-10.1) 8.3 MG/DL (8.5-10.1) Phosphorus Level 3.2 MG/DL (2.5-4.9) 3.1 MG/DL (2.5-4.9) Magnesium Level 1.9 MG/DL (1.8-2.4) 1.8 MG/DL (1.8-2.4) Total Bilirubin 28.5 MG/DL (0.2-1.0) 28.8 MG/DL (0.2-1.0) Direct Bilirubin 23.3 MG/DL (0.0-0.3) 23.5 MG/DL (0.0-0.3) Aspartate Amino Transf (AST/SGOT) 174 U/L (15-37) 174 U/L (15-37) Alanine Aminotransferase (ALT/SGPT) 19 U/L (12-78) 27 U/L (12-78) Alkaline Phosphatase 245 U/L (46-116) 242 U/L (46-116) C-Reactive Protein, Quantitative 9.7 mg/dL (0.00-0.90) 12.3 mg/dL (0.00-0.90) Pro-B-Type Natriuretic Peptide 274 pg/mL (0-125) 509 pg/mL (0-125) Total Protein 5.2 G/DL (6.4-8.2) 4.9 G/DL (6.4-8.2) Albumin 1.7 G/DL (3.4-5.0) 1.6 G/DL (3.4-5.0) Globulin 3.5 g/dL 3.3 g/dL Albumin/Globulin Ratio 0.5 (1.0-2.7) 0.5 (1.0-2.7) Arterial Blood pH 7.399 (7.350-7.450) Arterial Blood Partial Pressure CO2 25.5 mmHg (35.0-45.0) Arterial Blood Partial Pressure O2 69.9 mmHg (75.0-100.0) Arterial Blood HCO3 15.4 mmol/L (22.0-26.0) Arterial Blood Oxygen Saturation 92.6 % (95-100) Arterial Blood Base Excess -8.3 (-2-2) Dave Test Positive Gamma Glutamyl Transpeptidase 348 U/L (5-85) Ammonia 65 umol/L (11-32) Triglycerides Level 227 MG/DL (30-150) Cholesterol Level 71 MG/DL (< 200) LDL Cholesterol 64 mg/dL (<100) HDL Cholesterol 11 MG/DL (40-60) Cholesterol/HDL Ratio 6.5 (3.3-4.4) Lipase 643 U/L (73-393) Test 06/29/19 04:00 White Blood Count 19.5 K/UL (4.8-10.8) Red Blood Count 2.58 M/UL (4.70-6.10) Hemoglobin 8.0 G/DL (14.2-18.0) Hematocrit 25.3 % (42.0-52.0) Mean Corpuscular Volume 98 FL (80-99) Mean Corpuscular Hemoglobin 31.3 PG (27.0-31.0) Mean Corpuscular Hemoglobin Concent 31.8 G/DL (32.0-36.0) Red Cell Distribution Width 24.0 % (11.6-14.8) Platelet Count 72 K/UL (150-450) Mean Platelet Volume 8.2 FL (6.5-10.1) Neutrophils (%) (Auto) % (45.0-75.0) Lymphocytes (%) (Auto) % (20.0-45.0) Monocytes (%) (Auto) % (1.0-10.0) Eosinophils (%) (Auto) % (0.0-3.0) Basophils (%) (Auto) % (0.0-2.0) Differential Total Cells Counted 100 Neutrophils % (Manual) 72 % (45-75) Lymphocytes % (Manual) 20 % (20-45) Monocytes % (Manual) 8 % (1-10) Eosinophils % (Manual) 0 % (0-3) Basophils % (Manual) 0 % (0-2) Band Neutrophils 0 % (0-8) Platelet Estimate Decreased Platelet Morphology Normal Polychromasia 1+ Hypochromasia 1+ Anisocytosis 2+ Prothrombin Time 15.9 SEC (9.30-11.50) Prothromb Time International Ratio 1.5 (0.9-1.1) Sodium Level 153 MMOL/L (136-145) Potassium Level 3.1 MMOL/L (3.5-5.1) Chloride Level 124 MMOL/L (98-107) Carbon Dioxide Level 15 MMOL/L (21-32) Anion Gap 14 mmol/L (5-15) Blood Urea Nitrogen 49 mg/dL (7-18) Creatinine 2.3 MG/DL (0.55-1.30) Estimat Glomerular Filtration Rate 31.8 mL/min (>60) Glucose Level 120 MG/DL (74-106) Uric Acid 5.5 MG/DL (2.6-7.2) Calcium Level 8.4 MG/DL (8.5-10.1) Phosphorus Level 2.7 MG/DL (2.5-4.9) Magnesium Level 1.8 MG/DL (1.8-2.4) Total Bilirubin 31.0 MG/DL (0.2-1.0) Direct Bilirubin 25.0 MG/DL (0.0-0.3) Gamma Glutamyl Transpeptidase 300 U/L (5-85) Aspartate Amino Transf (AST/SGOT) 146 U/L (15-37) Alanine Aminotransferase (ALT/SGPT) 24 U/L (12-78) Alkaline Phosphatase 243 U/L (46-116) Total Protein 5.1 G/DL (6.4-8.2) Albumin 1.7 G/DL (3.4-5.0) Globulin 3.4 g/dL Albumin/Globulin Ratio 0.5 (1.0-2.7) Height (Feet): 5 Height (Inches): 9.00 Weight (Pounds): 218 Objective Physical Exam: Vitals: reviewed General Appearance: NAD HEENT: normocephalic, atraumatic ++ icterus jaundice, ng+ Neck: non-tender, normal alignment Respiratory/Chest: normal breath sounds bilaterally++ nc Cardiovascular/Chest: normal peripheral pulses, normal rate Abdomen: normal bowel sounds, soft,+ peg Extremities: normal range of motion Marty Kebede MD Jun 29, 2019 09:47
--- NOTE | 2019-06-29 10:50 | Infectious Diseases Prog Note ---
Assessment/Plan Assessment/Plan IMPRESSION: 1. Sepsis. 2. Systemic inflammatory response syndrome. 3. Tachycardia. 4. Leukocytosis. 5. colitis, 6.Alcoholic pancreatitis, 7.Cirrhosis of liver, 8. Acute renal failure likely hepatorenal syndrome, 9.Anemia, 10. thrombocytopenia, 11.hypocalcemia, 12.hypomagnesemia, corrected 13 hypokalemia, corrected 14, Alcohol withdrawal. 15.Metabolic encephalopathy 16. Hypophosphatemia 17. Hypernatremia RECOMMENDATION: continue Rocephin & Flagyl Poor prognosis Subjective ROS Limited/Unobtainable: Yes Constitutional: Denies: fever Allergies: Coded Allergies: No Known Allergies (Unverified , 06/20/19) Objective Vital Signs Last 24 Hour Vital Signs Date Time Temp Pulse Resp B/P (MAP) Pulse Ox O2 Delivery O2 Flow Rate FiO2 06/29/19 09:00 79 32 100/57 (71) 99 06/29/19 08:00 97.2 82 36 118/54 (75) 98 06/29/19 08:00 1.5 06/29/19 08:00 Nasal Cannula 2.0 06/29/19 08:00 75 06/29/19 07:00 74 32 117/61 (79) 99 06/29/19 06:55 98 Nasal Cannula 2.0 28 06/29/19 06:55 77 28 98 Nasal Cannula 2.0 28 06/29/19 06:00 76 32 114/52 (72) 99 06/29/19 05:00 78 32 114/55 (74) 100 06/29/19 04:00 Nasal Cannula 2.0 06/29/19 04:00 1.5 06/29/19 04:00 82 06/29/19 04:00 99.8 78 23 97/49 (65) 100 06/29/19 03:00 85 32 114/44 (67) 100 06/29/19 02:00 88 35 104/41 (62) 100 06/29/19 01:00 91 38 105/50 (68) 95 06/29/19 00:00 90 06/29/19 00:00 97 37 137/61 (86) 97 06/29/19 00:00 Nasal Cannula 2.0 06/29/19 00:00 1.5 06/28/19 23:00 95 32 111/52 (71) 97 06/28/19 22:00 97 32 107/46 (66) 97 06/28/19 21:00 98 32 109/53 (71) 97 06/28/19 20:00 1.5 06/28/19 20:00 89 06/28/19 20:00 Nasal Cannula 2.0 06/28/19 20:00 91 32 112/47 (68) 98 06/28/19 19:00 87 32 111/53 (72) 97 06/28/19 18:42 98 Nasal Cannula 2.0 28 06/28/19 18:00 90 32 109/53 (71) 97 06/28/19 17:00 83 32 115/50 (71) 98 06/28/19 16:00 98.8 81 32 105/55 (72) 97 06/28/19 16:00 81 06/28/19 16:00 1.5 06/28/19 16:00 Nasal Cannula 2.0 06/28/19 15:00 80 27 107/50 (69) 97 06/28/19 14:00 83 33 118/53 (74) 98 06/28/19 13:00 83 33 91/41 (58) 97 06/28/19 12:00 80 06/28/19 12:00 1.5 06/28/19 12:00 Nasal Cannula 2.0 06/28/19 12:00 85 30 89/52 (64) 97 06/28/19 11:00 80 30 119/59 (79) 97 Height (Feet): 5 Height (Inches): 9.00 Weight (Pounds): 218 HEENT: mucous membranes moist, other - icterus Respiratory/Chest: lungs clear Cardiovascular: normal rate, other - left arm PICC line Abdomen: distended, other - NG tube feeding Extremities: other - mild edema Neurologic/Psychiatric: disoriented Microbiology Date/Time Source Procedure Growth Status 06/26/19 12:10 Peritoneal Fluid Gram Stain - Final Resulted 06/26/19 12:10 Peritoneal Fluid Body Fluid Culture - Preliminary Resulted Laboratory Tests Test 06/29/19 04:00 White Blood Count 19.5 K/UL (4.8-10.8) H Red Blood Count 2.58 M/UL (4.70-6.10) L Hemoglobin 8.0 G/DL (14.2-18.0) L Hematocrit 25.3 % (42.0-52.0) L Mean Corpuscular Volume 98 FL (80-99) Mean Corpuscular Hemoglobin 31.3 PG (27.0-31.0) H Mean Corpuscular Hemoglobin Concent 31.8 G/DL (32.0-36.0) L Red Cell Distribution Width 24.0 % (11.6-14.8) H Platelet Count 72 K/UL (150-450) L Mean Platelet Volume 8.2 FL (6.5-10.1) Neutrophils (%) (Auto) % (45.0-75.0) Lymphocytes (%) (Auto) % (20.0-45.0) Monocytes (%) (Auto) % (1.0-10.0) Eosinophils (%) (Auto) % (0.0-3.0) Basophils (%) (Auto) % (0.0-2.0) Differential Total Cells Counted 100 Neutrophils % (Manual) 72 % (45-75) Lymphocytes % (Manual) 20 % (20-45) Monocytes % (Manual) 8 % (1-10) Eosinophils % (Manual) 0 % (0-3) Basophils % (Manual) 0 % (0-2) Band Neutrophils 0 % (0-8) Platelet Estimate Decreased L Platelet Morphology Normal Polychromasia 1+ Hypochromasia 1+ Anisocytosis 2+ Prothrombin Time 15.9 SEC (9.30-11.50) H Prothromb Time International Ratio 1.5 (0.9-1.1) H Sodium Level 153 MMOL/L (136-145) H Potassium Level 3.1 MMOL/L (3.5-5.1) L Chloride Level 124 MMOL/L (98-107) H Carbon Dioxide Level 15 MMOL/L (21-32) L Anion Gap 14 mmol/L (5-15) Blood Urea Nitrogen 49 mg/dL (7-18) H Creatinine 2.3 MG/DL (0.55-1.30) H Estimat Glomerular Filtration Rate 31.8 mL/min (>60) Glucose Level 120 MG/DL (74-106) H Uric Acid 5.5 MG/DL (2.6-7.2) Calcium Level 8.4 MG/DL (8.5-10.1) L Phosphorus Level 2.7 MG/DL (2.5-4.9) Magnesium Level 1.8 MG/DL (1.8-2.4) Total Bilirubin 31.0 MG/DL (0.2-1.0) H Direct Bilirubin 25.0 MG/DL (0.0-0.3) H Gamma Glutamyl Transpeptidase 300 U/L (5-85) H Aspartate Amino Transf (AST/SGOT) 146 U/L (15-37) H Alanine Aminotransferase (ALT/SGPT) 24 U/L (12-78) Alkaline Phosphatase 243 U/L (46-116) H Total Protein 5.1 G/DL (6.4-8.2) L Albumin 1.7 G/DL (3.4-5.0) L Globulin 3.4 g/dL Albumin/Globulin Ratio 0.5 (1.0-2.7) L Current Medications Medications (Trade) Dose Ordered Sig/Gabriela Route PRN Reason Start Time Stop Time Status Last Admin Dose Admin Ceftriaxone Sodium 1 gm/ Dextrose 55 ml @ 110 mls/hr DAILY IVPB 06/27/19 13:00 07/04/19 12:59 06/29/19 08:21 Chlorhexidine Gluconate (Emilie-Hex 2%) 1 applic DAILY@2000 TOPIC 06/26/19 20:00 07/26/19 19:59 06/28/19 20:38 Dextrose 1,000 ml @ 150 mls/hr Q6H40M IV 06/27/19 09:00 07/25/19 08:59 06/29/19 05:55 Lactulose (Cephulac) 45 gm FOUR TIMES A DAY NG 06/28/19 13:00 07/20/19 12:59 06/29/19 08:21 Lorazepam (Ativan) 1.5 mg Q4H PRN NG For Anxiety 06/28/19 08:15 07/03/19 10:59 Metronidazole (Flagyl) 500 mg Q8HR NG 06/27/19 14:00 07/04/19 13:59 06/29/19 05:41 Midodrine (Pro-Amatine) 10 mg THREE TIMES A DAY ORAL 06/29/19 13:00 07/29/19 12:59 UNV Norepinephrine Bitartrate 4 mg/ Dextrose 250 ml @ 0 mls/hr Q24H PRN IV For hypotension 06/25/19 19:00 07/25/19 18:59 Octreotide Acetate 500 mcg/ Sodium Chloride 500 ml @ 50 mls/hr Q10H IV 06/29/19 10:00 07/29/19 09:59 Pantoprazole (Protonix) 40 mg EVERY 12 HOURS IVP 06/21/19 21:00 07/20/19 20:59 06/29/19 08:21 Potassium Chloride 100 ml @ 100 mls/hr Q1H IV 06/29/19 07:00 06/29/19 10:59 06/29/19 10:02 Rifaximin (Xifaxan) 550 mg EVERY 12 HOURS NG 06/22/19 21:00 06/29/19 20:59 06/29/19 08:21 Ilia Chakraborty MD Jun 29, 2019 10:50
[2019-06-29] MEDS: Octreotide Acetate 500 MCG in Sodium Chloride 499 ML IV SCH ×2 (11:41→20:52)
--- NOTE | 2019-06-29 12:03 | Cardiac Electrophysiology PN ---
Assessment/Plan Assessment/Plan 1. Sinus tachycardia due to alcohol withdrawal and hepatic encephalopathy. No SVT or atrial fibrillation. EF 55% 2. Cirrhosis. On Lactulose and albumin S/P paracentesis 3. Hypotension BP 80 better after albumin. Add Midodrine 2.5 tid S/P PICC line in case needs pressors 4. Hepatorenal syndrome. Creatinine is 2. Fu . 5. Hypokalemia. 6. Alcohol intoxication. Thiamine, folate, and Librium. 7. Hepatic encephalopathy DW RN Subjective Subjective in ICU in restraints and lethargic. No arrhythmias and off pressors. Awaiting transfer to [facility] Objective Last 24 Hour Vital Signs Date Time Temp Pulse Resp B/P (MAP) Pulse Ox O2 Delivery O2 Flow Rate FiO2 06/29/19 09:00 79 32 100/57 (71) 99 06/29/19 08:00 97.2 82 36 118/54 (75) 98 06/29/19 08:00 1.5 06/29/19 08:00 Nasal Cannula 2.0 06/29/19 08:00 75 06/29/19 07:00 74 32 117/61 (79) 99 06/29/19 06:55 98 Nasal Cannula 2.0 28 06/29/19 06:55 77 28 98 Nasal Cannula 2.0 28 06/29/19 06:00 76 32 114/52 (72) 99 06/29/19 05:00 78 32 114/55 (74) 100 06/29/19 04:00 Nasal Cannula 2.0 06/29/19 04:00 1.5 06/29/19 04:00 82 06/29/19 04:00 99.8 78 23 97/49 (65) 100 06/29/19 03:00 85 32 114/44 (67) 100 06/29/19 02:00 88 35 104/41 (62) 100 06/29/19 01:00 91 38 105/50 (68) 95 06/29/19 00:00 90 06/29/19 00:00 97 37 137/61 (86) 97 06/29/19 00:00 Nasal Cannula 2.0 06/29/19 00:00 1.5 06/28/19 23:00 95 32 111/52 (71) 97 06/28/19 22:00 97 32 107/46 (66) 97 06/28/19 21:00 98 32 109/53 (71) 97 06/28/19 20:00 1.5 06/28/19 20:00 89 06/28/19 20:00 Nasal Cannula 2.0 06/28/19 20:00 91 32 112/47 (68) 98 06/28/19 19:00 87 32 111/53 (72) 97 06/28/19 18:42 98 Nasal Cannula 2.0 28 06/28/19 18:00 90 32 109/53 (71) 97 06/28/19 17:00 83 32 115/50 (71) 98 06/28/19 16:00 98.8 81 32 105/55 (72) 97 06/28/19 16:00 81 06/28/19 16:00 1.5 06/28/19 16:00 Nasal Cannula 2.0 06/28/19 15:00 80 27 107/50 (69) 97 06/28/19 14:00 83 33 118/53 (74) 98 06/28/19 13:00 83 33 91/41 (58) 97 Intake and Output 06/28/19 06/29/19 18:59 06:59 Intake Total 3050 ml 2540 ml Output Total 415 ml 1520 ml Balance 2635 ml 1020 ml Free Water 300 ml 200 ml IV Total 2210 ml 1800 ml Tube Feeding 540 ml 540 ml Output Urine Total 415 ml 570 ml Stool Total 950 ml Laboratory Tests Test 06/29/19 04:00 White Blood Count 19.5 K/UL (4.8-10.8) H Red Blood Count 2.58 M/UL (4.70-6.10) L Hemoglobin 8.0 G/DL (14.2-18.0) L Hematocrit 25.3 % (42.0-52.0) L Mean Corpuscular Volume 98 FL (80-99) Mean Corpuscular Hemoglobin 31.3 PG (27.0-31.0) H Mean Corpuscular Hemoglobin Concent 31.8 G/DL (32.0-36.0) L Red Cell Distribution Width 24.0 % (11.6-14.8) H Platelet Count 72 K/UL (150-450) L Mean Platelet Volume 8.2 FL (6.5-10.1) Neutrophils (%) (Auto) % (45.0-75.0) Lymphocytes (%) (Auto) % (20.0-45.0) Monocytes (%) (Auto) % (1.0-10.0) Eosinophils (%) (Auto) % (0.0-3.0) Basophils (%) (Auto) % (0.0-2.0) Differential Total Cells Counted 100 Neutrophils % (Manual) 72 % (45-75) Lymphocytes % (Manual) 20 % (20-45) Monocytes % (Manual) 8 % (1-10) Eosinophils % (Manual) 0 % (0-3) Basophils % (Manual) 0 % (0-2) Band Neutrophils 0 % (0-8) Platelet Estimate Decreased L Platelet Morphology Normal Polychromasia 1+ Hypochromasia 1+ Anisocytosis 2+ Prothrombin Time 15.9 SEC (9.30-11.50) H Prothromb Time International Ratio 1.5 (0.9-1.1) H Sodium Level 153 MMOL/L (136-145) H Potassium Level 3.1 MMOL/L (3.5-5.1) L Chloride Level 124 MMOL/L (98-107) H Carbon Dioxide Level 15 MMOL/L (21-32) L Anion Gap 14 mmol/L (5-15) Blood Urea Nitrogen 49 mg/dL (7-18) H Creatinine 2.3 MG/DL (0.55-1.30) H Estimat Glomerular Filtration Rate 31.8 mL/min (>60) Glucose Level 120 MG/DL (74-106) H Uric Acid 5.5 MG/DL (2.6-7.2) Calcium Level 8.4 MG/DL (8.5-10.1) L Phosphorus Level 2.7 MG/DL (2.5-4.9) Magnesium Level 1.8 MG/DL (1.8-2.4) Total Bilirubin 31.0 MG/DL (0.2-1.0) H Direct Bilirubin 25.0 MG/DL (0.0-0.3) H Gamma Glutamyl Transpeptidase 300 U/L (5-85) H Aspartate Amino Transf (AST/SGOT) 146 U/L (15-37) H Alanine Aminotransferase (ALT/SGPT) 24 U/L (12-78) Alkaline Phosphatase 243 U/L (46-116) H Total Protein 5.1 G/DL (6.4-8.2) L Albumin 1.7 G/DL (3.4-5.0) L Globulin 3.4 g/dL Albumin/Globulin Ratio 0.5 (1.0-2.7) L Microbiology Date/Time Source Procedure Growth Status 06/26/19 12:10 Peritoneal Fluid Gram Stain - Final Resulted 06/26/19 12:10 Peritoneal Fluid Body Fluid Culture - Preliminary Resulted Objective HEAD AND NECK: No JVD. Sclera is icteric LUNGS: Decreased breath sounds. CARDIOVASCULAR: TachyS1 and S2 with no gallop. ABDOMEN: Distended with ascites. EXTREMITIES: 2+ pitting edema. Felice Smith MD Jun 29, 2019 12:03
[2019-06-29] MEDS ORDERED: Midodrine 10mg tab ORAL SCH (13:00)
--- NOTE | 2019-06-29 14:53 | Pulmonolgy Critical Care Note ---
Critical Care - Asmt/Plan Assessment/Plan: Pulmonary CCM Consultation HPI This is a 39-year-old male who is an alcoholic with significant fatty liver on abdominal CT and alcoholic hepatitis, DF 16, not candidate for steroids currently per GI. He has been drinking heavily for 3 months straight. 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 Noted to have Hepatic Encephalopathy and Hepatorenal Syndrome. No bleeding. No nausea no vomiting. Nothing made it better. Movement or exertion makes it worse. Noted to have significant hypokalemia and alkalosis, evidence of sepsis, source unclear - some bacteria in urine, mid ascites - possible SBP, dilated Gallbladder On NC O2, on Lactulose, pulled out NGT - reinserted Na improving, renal function stable More awake, remains confused Allergies: No Known Allergies Past Medical History: Alcohol abuse All Other Systems: negative except mentioned in HPI Physical Exam Vital Signs Noted General Appearance: Jaundiced, awake Head: normocephalic, atraumatic Eyes: bilateral eye PERRL, bilateral eye EOMI, bilateral eye scleral icterus ENT: moist mm Neck: no masses, no LN Respiratory: chest non-tender, lungs clear, normal breath sounds Cardiovascular: regular rate, rhythm, Normal HS1, HS2, no murmur, tachycardia Gastrointestinal: Obese, hepatomegaly, some tenderness RUQ, normal bowel sounds , no mass, no rebound Musculoskeletal: moves all limbs Neurologic: responds to commands, awake Skin: jaundiced, moderate edema Impression: Acute alcoholic intoxication Severe Sepsis Alcoholic Hepatitis Possible Cirrhosis Metabolic and respiratory alkalosis Possible Portal Hypertension Hepatorenal syndrome - worsening renal function Hypernatremia Pancreatitis, alcoholic, acute Anemia Monitor CXR/ABG Plan ICU management NPO except meds IV antibiotics per ID Aspiration precautions GI/Renal following IVF per Nephrology Pressors PRN Intubate PRN for airway protection Transfuse PRN Thiamine Monitor labs K supplementation Adjust FIO2 - sats 90-96% Labs: noted EKG: Rate: tachycardiac Rhythm: NSR ST Segments: other - NSST changes Chest X-Ray: hypoventilatory exam, no consolidation, no effusion, no pneumothorax, no acute cardiopulmonary disease CT abdomen pelvis: Severely enlarged liver and fatty liver. Mild ascites. Critical Care - Objective Last 24 Hour Vital Signs Date Time Temp Pulse Resp B/P (MAP) Pulse Ox O2 Delivery O2 Flow Rate FiO2 06/29/19 12:00 1.5 9/6/19 12:00 74 06/29/19 12:00 Nasal Cannula 2.0 06/29/19 12:00 97.4 71 29 105/69 (81) 98 06/29/19 11:00 70 32 99/69 (79) 99 06/29/19 10:00 73 31 112/47 (68) 98 06/29/19 09:00 79 32 100/57 (71) 99 06/29/19 08:00 97.2 82 36 118/54 (75) 98 06/29/19 08:00 1.5 06/29/19 08:00 Nasal Cannula 2.0 06/29/19 08:00 75 06/29/19 07:00 74 32 117/61 (79) 99 06/29/19 06:55 98 Nasal Cannula 2.0 28 06/29/19 06:55 77 28 98 Nasal Cannula 2.0 28 06/29/19 06:00 76 32 114/52 (72) 99 06/29/19 05:00 78 32 114/55 (74) 100 06/29/19 04:00 Nasal Cannula 2.0 06/29/19 04:00 1.5 06/29/19 04:00 82 06/29/19 04:00 99.8 78 23 97/49 (65) 100 06/29/19 03:00 85 32 114/44 (67) 100 06/29/19 02:00 88 35 104/41 (62) 100 06/29/19 01:00 91 38 105/50 (68) 95 06/29/19 00:00 90 06/29/19 00:00 97 37 137/61 (86) 97 06/29/19 00:00 Nasal Cannula 2.0 06/29/19 00:00 1.5 06/28/19 23:00 95 32 111/52 (71) 97 06/28/19 22:00 97 32 107/46 (66) 97 06/28/19 21:00 98 32 109/53 (71) 97 06/28/19 20:00 1.5 06/28/19 20:00 89 06/28/19 20:00 Nasal Cannula 2.0 06/28/19 20:00 91 32 112/47 (68) 98 06/28/19 19:00 87 32 111/53 (72) 97 06/28/19 18:42 98 Nasal Cannula 2.0 28 06/28/19 18:00 90 32 109/53 (71) 97 06/28/19 17:00 83 32 115/50 (71) 98 06/28/19 16:00 98.8 81 32 105/55 (72) 97 06/28/19 16:00 81 06/28/19 16:00 1.5 06/28/19 16:00 Nasal Cannula 2.0 06/28/19 15:00 80 27 107/50 (69) 97 Critical Care - Subjective ROS Limited/Unobtainable: No FI02: 28 Sputum Amount: None Tube Feeding Amount: 45 I&O: Intake and Output 06/28/19 06/29/19 18:59 06:59 Intake Total 3050 ml 2540 ml Output Total 415 ml 1520 ml Balance 2635 ml 1020 ml Free Water 300 ml 200 ml IV Total 2210 ml 1800 ml Tube Feeding 540 ml 540 ml Output Urine Total 415 ml 570 ml Stool Total 950 ml Quang Domingo MD Jun 29, 2019 14:53
[2019-06-29] MEDS: Dyna-Hex 2% Top Sol 2oz TOPIC SCH (20:52)
--- NOTE | 2019-06-29 22:36 | General Progress Note ---
Assessment/Plan Problem List: (1) Anemia ICD Codes: D64.9 - Anemia, unspecified SNOMED: 809742491 Qualifiers: Qualified Codes: D64.9 - Anemia, unspecified (2) Acute alcoholic intoxication ICD Codes: F10.929 - Alcohol use, unspecified with intoxication, unspecified SNOMED: 95159932, 1531325 Qualifiers: Qualified Codes: F10.920 - Alcohol use, unspecified with intoxication, uncomplicated (3) End-stage liver disease ICD Codes: K72.90 - Hepatic failure, unspecified without coma SNOMED: 320771484 (4) Hepatorenal syndrome ICD Codes: K76.7 - Hepatorenal syndrome SNOMED: 85621526, 4009269 (5) Pancreatitis, alcoholic, acute ICD Codes: K85.20 - Alcohol induced acute pancreatitis without necrosis or infection SNOMED: 443600320, 3740083 Qualifiers: Qualified Codes: K85.20 - Alcohol induced acute pancreatitis without necrosis or infection (6) Respiratory failure ICD Codes: J96.90 - Respiratory failure, unspecified, unspecified whether with hypoxia or hypercapnia SNOMED: 882884608 Status: not improved, unchanged, deteriorating Assessment/Plan: check lytes very poor prognosis afebrile anasarca ng tube feeding etoh cirrhosis jaundice confused distended abdomen s/p paracentesis Subjective ROS Limited/Unobtainable: Yes Allergies: Coded Allergies: No Known Allergies (Unverified , 06/20/19) Objective Last 24 Hour Vital Signs Date Time Temp Pulse Resp B/P (MAP) Pulse Ox O2 Delivery O2 Flow Rate FiO2 06/29/19 20:22 96 Nasal Cannula 2.0 28 06/29/19 20:00 Nasal Cannula 2.0 06/29/19 20:00 2.0 06/29/19 19:00 75 31 95/53 (67) 99 06/29/19 18:00 73 29 95/53 (67) 99 06/29/19 17:00 72 30 91/57 (68) 98 06/29/19 16:00 98.6 85 32 113/56 (75) 97 06/29/19 16:00 1.5 06/29/19 16:00 84 06/29/19 16:00 Nasal Cannula 2.0 06/29/19 15:00 77 25 110/50 (70) 97 06/29/19 14:00 79 32 97/43 (61) 97 06/29/19 13:00 75 32 105/58 (74) 98 06/29/19 12:00 1.5 06/29/19 12:00 74 06/29/19 12:00 Nasal Cannula 2.0 06/29/19 12:00 97.4 71 29 105/69 (81) 98 06/29/19 11:00 70 32 99/69 (79) 99 06/29/19 10:00 73 31 112/47 (68) 98 06/29/19 09:00 79 32 100/57 (71) 99 06/29/19 08:00 97.2 82 36 118/54 (75) 98 06/29/19 08:00 1.5 06/29/19 08:00 Nasal Cannula 2.0 06/29/19 08:00 75 06/29/19 07:00 74 32 117/61 (79) 99 06/29/19 06:55 98 Nasal Cannula 2.0 28 06/29/19 06:55 77 28 98 Nasal Cannula 2.0 28 06/29/19 06:00 76 32 114/52 (72) 99 06/29/19 05:00 78 32 114/55 (74) 100 06/29/19 04:00 Nasal Cannula 2.0 06/29/19 04:00 1.5 06/29/19 04:00 82 06/29/19 04:00 99.8 78 23 97/49 (65) 100 06/29/19 03:00 85 32 114/44 (67) 100 06/29/19 02:00 88 35 104/41 (62) 100 06/29/19 01:00 91 38 105/50 (68) 95 06/29/19 00:00 90 06/29/19 00:00 97 37 137/61 (86) 97 06/29/19 00:00 Nasal Cannula 2.0 06/29/19 00:00 1.5 06/28/19 23:00 95 32 111/52 (71) 97 Intake and Output 06/28/19 06/29/19 19:00 07:00 Intake Total 3050 ml 2540 ml Output Total 825 ml 1130 ml Balance 2225 ml 1410 ml Free Water 300 ml 200 ml IV Total 2210 ml 1800 ml Tube Feeding 540 ml 540 ml Output Urine Total 425 ml 580 ml Stool Total 400 ml 550 ml Laboratory Tests 06/29/19 04:00: White Blood Count 19.5H, Red Blood Count 2.58L, Hemoglobin 8.0L, Hematocrit 25.3L, Mean Corpuscular Volume 98, Mean Corpuscular Hemoglobin 31.3H, Mean Corpuscular Hemoglobin Concent 31.8L, Red Cell Distribution Width 24.0H, Platelet Count 72L, Mean Platelet Volume 8.2, Neutrophils (%) (Auto) , Lymphocytes (%) (Auto) , Monocytes (%) (Auto) , Eosinophils (%) (Auto) , Basophils (%) (Auto) , Differential Total Cells Counted 100, Neutrophils % ( Manual) 72, Lymphocytes % (Manual) 20, Monocytes % (Manual) 8, Eosinophils % ( Manual) 0, Basophils % (Manual) 0, Band Neutrophils 0, Platelet Estimate DecreasedL, Platelet Morphology Normal, Polychromasia 1+, Hypochromasia 1+, Anisocytosis 2+, Prothrombin Time 15.9H, Prothromb Time International Ratio 1.5H , Sodium Level 153H, Potassium Level 3.1L, Chloride Level 124H, Carbon Dioxide Level 15L, Anion Gap 14, Blood Urea Nitrogen 49H, Creatinine 2.3H, Estimat Glomerular Filtration Rate 31.8, Glucose Level 120H, Uric Acid 5.5, Calcium Level 8.4L, Phosphorus Level 2.7, Magnesium Level 1.8, Total Bilirubin 31.0H, Direct Bilirubin 25.0H, Gamma Glutamyl Transpeptidase 300H, Aspartate Amino Transf (AST/SGOT) 146H, Alanine Aminotransferase (ALT/SGPT) 24, Alkaline Phosphatase 243H, Total Protein 5.1L, Albumin 1.7L, Globulin 3.4, Albumin/ Globulin Ratio 0.5L Height (Feet): 5 Height (Inches): 9.00 Weight (Pounds): 218 Neck: supple Cardiovascular: normal rate Respiratory/Chest: lungs clear Abdomen: tender Deejay Saldaña MD Jun 29, 2019 22:36
[2019-06-30] VITALS (25 sets, daily range): BP systolic 77–120; BP diastolic 36–69
[2019-06-30 04:59] LABS: HEMATOCRIT 23.6 % (42.0-52.0); HEMOGLOBIN 7.4 G/DL (14.2-18.0); MEAN CORPUSCULAR VOLUME 101 FL (80-99); PLATELET COUNT 68 K/UL (150-450); RED BLOOD COUNT 2.34 M/UL (4.70-6.10); RED CELL DISTRIBUTION WIDTH 23.7 % (11.6-14.8)
[2019-06-30] MEDS: metroNIDAZOLE 500mg tab NG SCH ×3 (05:33→21:45)
[2019-06-30] MEDS: Octreotide Acetate 500 MCG in Sodium Chloride 499 ML IV SCH ×2 (05:33→16:00)
[2019-06-30 05:38] LABS: AMMONIA 52 umol/L (11-32)
[2019-06-30 06:01] LABS: ALANINE AMINOTRANSFERASE 22 U/L (12-78); ALBUMIN 1.6 G/DL (3.4-5.0); ALBUMIN/GLOBULIN RATIO 0.5 (1.0-2.7); ALKALINE PHOSPHATASE 226 U/L (46-116); ANION GAP 13 mmol/L (5-15); ASPARTATE AMINO TRANSFERASE 103 U/L (15-37); BILIRUBIN,TOTAL 29.9 MG/DL (0.2-1.0); BLOOD UREA NITROGEN 55 mg/dL (7-18); CALCIUM 8.3 MG/DL (8.5-10.1); CARBON DIOXIDE 16 MMOL/L (21-32); CHLORIDE 121 MMOL/L (98-107); POTASSIUM 3.7 MMOL/L (3.5-5.1); SODIUM 150 MMOL/L (136-145)
[2019-06-30 06:08] LABS: BILIRUBIN,DIRECT 24.7 MG/DL (0.0-0.3)
[2019-06-30] MEDS: Pantoprazole Inj IVP SCH ×2 (08:36→20:25)
[2019-06-30] MEDS: cefTRIAXone 1 GM in D5W 55 ML IVPB SCH (08:36)
[2019-06-30] MEDS: Lactulose 20gm/30ml UDC NG SCH ×4 (08:36→20:25)
--- NOTE | 2019-06-30 09:22 | Hematology/Onc Progress Note ---
Assessment/Plan Assessment/Plan Assessment and Recs: # Thrombocytopenia - potential causes multifactorial, does have a history of etoh abuse, cirrhosis of the liver, hepatosplenomegaly, portal HTN, coagulopathy noted as well, likely oscillatory pattern can be due to abx as well --> Hep panel and HIV ordered (NEG) --> US abd does show, portal htn and cirrhosis ++ --> Peripheral smear ordered to evaluate for blasts /schistocytes reviewed and is negative --> abx and other meds have been reviewed --> ok for ppx if plt >50k w/ either heparin or lovenox --> Transfuse if Plt < 20k and fever, or if Plt < 10k without fever --> plt trend 80-->97-->117-->157k->216k-->107k-->72k-->68k # Anemia of chronic disease due to underlying chronic medical issues, multifactorial (myelosuprresion noted) --> Anemia workup has been reviewed, ferritin 297 --> No evidence of hemolysis is noted, peripheral smear has been reviewed. --> Hgb goal >7. Transfuse prn. --> Epogen or iron at this time is not particularly indicated --> Medications have been reviewed --> low threshold for gi evaluation in case has occult + --> hgb trend: 7.7-->8.2-->9->8.4-->8.3-->8.2-->8-->7.4 --> serum electrophoresis shows no m-spike 06/27 # Coagulopathy due to cirrhosis --> give Vitk as needed # Leukocytosis with sepsis is on abx --> ID following, appreciate recs --> wbc trend: 17k-->13.9-->19.5 # Acute alcoholic intoxication --> etoh abuse history --> thiamine, folic acid, ivf # End-stage liver disease --> Hepatorenal syndrome r/o with renal, albumin prn # Pancreatitis, alcoholic, acute # Tachycardia # Dvt ppx with scds given low plts The timing of this note does not necessarily reflect the time of the patient was seen. GREATLY APPRECIATE CONSULTATION. Subjective Constitutional: Denies: no symptoms, chills, fever, malaise, weakness, other HEENT: Denies: no symptoms, eye pain, blurred vision, tearing, double vision, ear pain, ear discharge, nose pain, nose congestion, throat pain, throat swelling, mouth pain, mouth swelling, other Cardiovascular: Denies: no symptoms, chest pain, edema, irregular heart rate, lightheadedness, palpitations, syncope, other Respiratory: Denies: no symptoms, cough, shortness of breath, SOB with excertion, SOB at rest, sputum, wheezing, other Genitourinary: Denies: no symptoms, burning, discharge, frequency, flank pain, hematuria, incontinence, pain, urgency, other Neurologic/Psychiatric: Denies: no symptoms, anxiety, depressed, emotional problems, headache, numbness, paresthesia, pre-existing deficit, seizure, tingling, tremors, weakness, other Endocrine: Denies: no symptoms, excessive sweating, flushing, intolerance to cold, intolerance to heat, increased hunger, increased thirst, increased urine, unexplained weight gain, unexplained weight loss, other Allergies: Coded Allergies: No Known Allergies (Unverified , 06/20/19) Subjective 06/21: low k, ferritin 297, h/h stable, afebrile, blood transfused 06/22: in icu, on restraints, labs reviewed, no f/c, imaging reviewed 06/23: pain meds given, remains in icu, again in restraints, bili higher, inr as well, given vitk 06/25: no fevers, no chills, no bleeding, confused in bed in icu 06/26: no events to report, no bleeding, remains in icu, ++ bipap 06/27: icu,s/p paracentesis yesterday, off pressors, h/h stable 06/28: on ctx/flagyl, remains confused, no bleeding, plt is lower 06/29: no f/c, on abx, no acute events, no distress, labs reviewed 06/30: remains in the icu, on abx, no f/c, scds+ Objective Objective Current Medications Medications (Trade) Dose Ordered Sig/Gabriela Route PRN Reason Start Time Stop Time Status Last Admin Dose Admin Ceftriaxone Sodium 1 gm/ Dextrose 55 ml @ 110 mls/hr DAILY IVPB 06/27/19 13:00 07/04/19 12:59 06/30/19 08:36 Chlorhexidine Gluconate (Emilie-Hex 2%) 1 applic DAILY@2000 TOPIC 06/26/19 20:00 07/26/19 19:59 06/29/19 20:52 Dextrose 1,000 ml @ 150 mls/hr Q6H40M IV 06/27/19 09:00 07/25/19 08:59 06/30/19 03:55 Lactulose (Cephulac) 45 gm FOUR TIMES A DAY NG 06/28/19 13:00 07/20/19 12:59 06/30/19 08:36 Lorazepam (Ativan) 1.5 mg Q4H PRN NG For Anxiety 06/28/19 08:15 07/03/19 10:59 06/29/19 22:14 Metronidazole (Flagyl) 500 mg Q8HR NG 06/27/19 14:00 07/04/19 13:59 06/30/19 05:33 Midodrine (Pro-Amatine) 2.5 mg TID ORAL 06/29/19 13:00 07/29/19 12:59 06/30/19 08:36 Norepinephrine Bitartrate 4 mg/ Dextrose 250 ml @ 0 mls/hr Q24H PRN IV For hypotension 06/25/19 19:00 07/25/19 18:59 Octreotide Acetate 500 mcg/ Sodium Chloride 500 ml @ 50 mls/hr Q10H IV 06/29/19 10:00 07/29/19 09:59 06/30/19 05:33 Pantoprazole (Protonix) 40 mg EVERY 12 HOURS IVP 06/21/19 21:00 07/20/19 20:59 06/30/19 08:36 Last 24 Hour Vital Signs Date Time Temp Pulse Resp B/P (MAP) Pulse Ox O2 Delivery O2 Flow Rate FiO2 06/30/19 09:00 98.8 63 25 98/48 (65) 100 06/30/19 08:00 65 06/30/19 08:00 68 31 98/49 (65) 97 06/30/19 08:00 Nasal Cannula 3.0 06/30/19 08:00 2.0 06/30/19 07:30 100 Nasal Cannula 2.0 28 06/30/19 07:00 63 30 107/51 (69) 100 06/30/19 07:00 66 30 102/48 (66) 95 06/30/19 06:00 98.9 64 30 97/57 (70) 99 06/30/19 05:00 66 30 102/48 (66) 95 06/30/19 04:00 Nasal Cannula 2.0 06/30/19 04:00 100.4 75 29 103/53 (70) 97 06/30/19 04:00 2.0 06/30/19 04:00 80 06/30/19 03:00 79 27 104/46 (65) 98 06/30/19 02:00 79 27 100/51 (67) 98 06/30/19 01:00 77 31 102/37 (58) 97 06/30/19 00:00 79 06/30/19 00:00 2.0 06/30/19 00:00 99.3 81 33 120/50 (73) 98 06/30/19 00:00 Nasal Cannula 2.0 06/29/19 23:00 80 34 107/51 (69) 99 06/29/19 22:00 80 31 114/48 (70) 100 06/29/19 21:00 78 28 108/54 (72) 98 06/29/19 20:22 96 Nasal Cannula 2.0 28 06/29/19 20:00 73 06/29/19 20:00 97.5 77 28 107/51 (69) 99 06/29/19 20:00 Nasal Cannula 2.0 06/29/19 20:00 2.0 06/29/19 19:00 75 31 95/53 (67) 99 06/29/19 18:00 73 29 95/53 (67) 99 06/29/19 17:00 72 30 91/57 (68) 98 06/29/19 16:00 98.6 85 32 113/56 (75) 97 06/29/19 16:00 1.5 06/29/19 16:00 84 06/29/19 16:00 Nasal Cannula 2.0 06/29/19 15:00 77 25 110/50 (70) 97 06/29/19 14:00 79 32 97/43 (61) 97 06/29/19 13:00 75 32 105/58 (74) 98 06/29/19 12:00 1.5 06/29/19 12:00 74 06/29/19 12:00 Nasal Cannula 2.0 06/29/19 12:00 97.4 71 29 105/69 (81) 98 06/29/19 11:00 70 32 99/69 (79) 99 06/29/19 10:00 73 31 112/47 (68) 98 06/29/19 09:00 79 32 100/57 (71) 99 06/29/19 08:00 97.2 82 36 118/54 (75) 98 06/29/19 08:00 1.5 06/29/19 08:00 Nasal Cannula 2.0 06/29/19 08:00 75 06/29/19 07:00 74 32 117/61 (79) 99 06/29/19 06:55 98 Nasal Cannula 2.0 28 06/29/19 06:55 77 28 98 Nasal Cannula 2.0 28 06/29/19 06:00 76 32 114/52 (72) 99 06/29/19 05:00 78 32 114/55 (74) 100 06/29/19 04:00 Nasal Cannula 2.0 06/29/19 04:00 1.5 06/29/19 04:00 82 06/29/19 04:00 99.8 78 23 97/49 (65) 100 06/29/19 03:00 85 32 114/44 (67) 100 06/29/19 02:00 88 35 104/41 (62) 100 06/29/19 01:00 91 38 105/50 (68) 95 06/29/19 00:00 90 06/29/19 00:00 97 37 137/61 (86) 97 06/29/19 00:00 Nasal Cannula 2.0 06/29/19 00:00 1.5 06/28/19 23:00 95 32 111/52 (71) 97 06/28/19 22:00 97 32 107/46 (66) 97 06/28/19 21:00 98 32 109/53 (71) 97 06/28/19 20:00 1.5 06/28/19 20:00 89 06/28/19 20:00 Nasal Cannula 2.0 06/28/19 20:00 91 32 112/47 (68) 98 06/28/19 19:00 87 32 111/53 (72) 97 06/28/19 18:42 98 Nasal Cannula 2.0 28 06/28/19 18:00 90 32 109/53 (71) 97 06/28/19 17:00 83 32 115/50 (71) 98 06/28/19 16:00 98.8 81 32 105/55 (72) 97 06/28/19 16:00 81 06/28/19 16:00 1.5 06/28/19 16:00 Nasal Cannula 2.0 06/28/19 15:00 80 27 107/50 (69) 97 06/28/19 14:00 83 33 118/53 (74) 98 06/28/19 13:00 83 33 91/41 (58) 97 06/28/19 12:00 80 06/28/19 12:00 1.5 06/28/19 12:00 Nasal Cannula 2.0 06/28/19 12:00 85 30 89/52 (64) 97 06/28/19 11:00 80 30 119/59 (79) 97 06/28/19 10:00 77 35 100/39 (59) 99 Intake and Output 06/29/19 06/30/19 19:00 07:00 Intake Total 3228 ml 2895 ml Output Total 1405 ml 2265 ml Balance 1823 ml 630 ml Free Water 120 ml IV Total 2568 ml 2355 ml Tube Feeding 540 ml 540 ml Output Urine Total 405 ml 265 ml Stool Total 1000 ml 2000 ml Labs Test 06/28/19 05:00 06/29/19 04:00 06/30/19 03:20 White Blood Count 15.6 K/UL (4.8-10.8) 19.5 K/UL (4.8-10.8) 17.0 K/UL (4.8-10.8) Red Blood Count 2.65 M/UL (4.70-6.10) 2.58 M/UL (4.70-6.10) 2.34 M/UL (4.70-6.10) Hemoglobin 8.2 G/DL (14.2-18.0) 8.0 G/DL (14.2-18.0) 7.4 G/DL (14.2-18.0) Hematocrit 26.6 % (42.0-52.0) 25.3 % (42.0-52.0) 23.6 % (42.0-52.0) Mean Corpuscular Volume 100 FL (80-99) 98 FL (80-99) 101 FL (80-99) Mean Corpuscular Hemoglobin 30.8 PG (27.0-31.0) 31.3 PG (27.0-31.0) 31.6 PG (27.0-31.0) Mean Corpuscular Hemoglobin Concent 30.7 G/DL (32.0-36.0) 31.8 G/DL (32.0-36.0) 31.4 G/DL (32.0-36.0) Red Cell Distribution Width 24.1 % (11.6-14.8) 24.0 % (11.6-14.8) 23.7 % (11.6-14.8) Platelet Count 107 K/UL (150-450) 72 K/UL (150-450) 68 K/UL (150-450) Mean Platelet Volume 9.9 FL (6.5-10.1) 8.2 FL (6.5-10.1) 9.4 FL (6.5-10.1) Neutrophils (%) (Auto) 77.3 % (45.0-75.0) % (45.0-75.0) % (45.0-75.0) Lymphocytes (%) (Auto) 12.4 % (20.0-45.0) % (20.0-45.0) % (20.0-45.0) Monocytes (%) (Auto) 6.7 % (1.0-10.0) % (1.0-10.0) % (1.0-10.0) Eosinophils (%) (Auto) 2.0 % (0.0-3.0) % (0.0-3.0) % (0.0-3.0) Basophils (%) (Auto) 1.5 % (0.0-2.0) % (0.0-2.0) % (0.0-2.0) Sodium Level 158 MMOL/L (136-145) 153 MMOL/L (136-145) 150 MMOL/L (136-145) Potassium Level 3.4 MMOL/L (3.5-5.1) 3.1 MMOL/L (3.5-5.1) 3.7 MMOL/L (3.5-5.1) Chloride Level 126 MMOL/L (98-107) 124 MMOL/L (98-107) 121 MMOL/L (98-107) Carbon Dioxide Level 17 MMOL/L (21-32) 15 MMOL/L (21-32) 16 MMOL/L (21-32) Anion Gap 15 mmol/L (5-15) 14 mmol/L (5-15) 13 mmol/L (5-15) Blood Urea Nitrogen 53 mg/dL (7-18) 49 mg/dL (7-18) 55 mg/dL (7-18) Creatinine 2.7 MG/DL (0.55-1.30) 2.3 MG/DL (0.55-1.30) 3.0 MG/DL (0.55-1.30) Estimat Glomerular Filtration Rate 26.4 mL/min (>60) 31.8 mL/min (>60) 23.4 mL/min (>60) Glucose Level 110 MG/DL (74-106) 120 MG/DL (74-106) 128 MG/DL (74-106) Uric Acid 5.7 MG/DL (2.6-7.2) 5.5 MG/DL (2.6-7.2) Calcium Level 8.3 MG/DL (8.5-10.1) 8.4 MG/DL (8.5-10.1) 8.3 MG/DL (8.5-10.1) Phosphorus Level 3.1 MG/DL (2.5-4.9) 2.7 MG/DL (2.5-4.9) Magnesium Level 1.8 MG/DL (1.8-2.4) 1.8 MG/DL (1.8-2.4) Total Bilirubin 28.8 MG/DL (0.2-1.0) 31.0 MG/DL (0.2-1.0) 29.9 MG/DL (0.2-1.0) Direct Bilirubin 23.5 MG/DL (0.0-0.3) 25.0 MG/DL (0.0-0.3) 24.7 MG/DL (0.0-0.3) Gamma Glutamyl Transpeptidase 348 U/L (5-85) 300 U/L (5-85) Aspartate Amino Transf (AST/SGOT) 174 U/L (15-37) 146 U/L (15-37) 103 U/L (15-37) Alanine Aminotransferase (ALT/SGPT) 27 U/L (12-78) 24 U/L (12-78) 22 U/L (12-78) Alkaline Phosphatase 242 U/L (46-116) 243 U/L (46-116) 226 U/L (46-116) Ammonia 65 umol/L (11-32) 52 umol/L (11-32) C-Reactive Protein, Quantitative 12.3 mg/dL (0.00-0.90) Pro-B-Type Natriuretic Peptide 509 pg/mL (0-125) Total Protein 4.9 G/DL (6.4-8.2) 5.1 G/DL (6.4-8.2) 5.0 G/DL (6.4-8.2) Albumin 1.6 G/DL (3.4-5.0) 1.7 G/DL (3.4-5.0) 1.6 G/DL (3.4-5.0) Globulin 3.3 g/dL 3.4 g/dL 3.4 g/dL Albumin/Globulin Ratio 0.5 (1.0-2.7) 0.5 (1.0-2.7) 0.5 (1.0-2.7) Triglycerides Level 227 MG/DL (30-150) Cholesterol Level 71 MG/DL (< 200) LDL Cholesterol 64 mg/dL (<100) HDL Cholesterol 11 MG/DL (40-60) Cholesterol/HDL Ratio 6.5 (3.3-4.4) Lipase 643 U/L (73-393) Differential Total Cells Counted 100 Neutrophils % (Manual) 72 % (45-75) Lymphocytes % (Manual) 20 % (20-45) Monocytes % (Manual) 8 % (1-10) Eosinophils % (Manual) 0 % (0-3) Basophils % (Manual) 0 % (0-2) Band Neutrophils 0 % (0-8) Platelet Estimate Decreased Platelet Morphology Normal Polychromasia 1+ Hypochromasia 1+ Anisocytosis 2+ Prothrombin Time 15.9 SEC (9.30-11.50) Prothromb Time International Ratio 1.5 (0.9-1.1) Height (Feet): 5 Height (Inches): 9.00 Weight (Pounds): 218 Objective Physical Exam: Vitals: reviewed General Appearance: NAD HEENT: normocephalic, atraumatic ++ icterus jaundice, ng+ Neck: non-tender, normal alignment Respiratory/Chest: normal breath sounds bilaterally++ nc Cardiovascular/Chest: normal peripheral pulses, normal rate Abdomen: normal bowel sounds, soft,+ peg Extremities: normal range of motion Marty Kebede MD Jun 30, 2019 09:22
--- NOTE | 2019-06-30 10:48 | General Progress Note ---
Assessment/Plan Problem List: (1) Anemia ICD Codes: D64.9 - Anemia, unspecified SNOMED: 597570158 Qualifiers: Qualified Codes: D64.9 - Anemia, unspecified (2) Acute alcoholic intoxication ICD Codes: F10.929 - Alcohol use, unspecified with intoxication, unspecified SNOMED: 36057447, 4390785 Qualifiers: Qualified Codes: F10.920 - Alcohol use, unspecified with intoxication, uncomplicated (3) End-stage liver disease ICD Codes: K72.90 - Hepatic failure, unspecified without coma SNOMED: 085549286 (4) Pancreatitis, alcoholic, acute ICD Codes: K85.20 - Alcohol induced acute pancreatitis without necrosis or infection SNOMED: 595383984, 2613659 Qualifiers: Qualified Codes: K85.20 - Alcohol induced acute pancreatitis without necrosis or infection (5) Hepatorenal syndrome ICD Codes: K76.7 - Hepatorenal syndrome SNOMED: 57854200, 8363009 (6) Respiratory failure ICD Codes: J96.90 - Respiratory failure, unspecified, unspecified whether with hypoxia or hypercapnia SNOMED: 118041976 (7) Hypernatremia ICD Codes: E87.0 - Hyperosmolality and hypernatremia SNOMED: 444863954 Status: not improved, unchanged, deteriorating Assessment/Plan: o2 pulm tx abx prn neph f/u cbc bmp am Subjective Constitutional: Reports: weakness Allergies: Coded Allergies: No Known Allergies (Unverified , 06/20/19) All Systems: reviewed and negative except above Subjective o2nc ng asleep in icu Objective Last 24 Hour Vital Signs Date Time Temp Pulse Resp B/P (MAP) Pulse Ox O2 Delivery O2 Flow Rate FiO2 06/30/19 10:00 70 31 95/57 (70) 98 06/30/19 09:00 98.8 63 25 98/48 (65) 100 06/30/19 08:00 65 06/30/19 08:00 68 31 98/49 (65) 97 06/30/19 08:00 Nasal Cannula 3.0 06/30/19 08:00 2.0 06/30/19 07:30 100 Nasal Cannula 2.0 28 06/30/19 07:00 63 30 107/51 (69) 100 06/30/19 07:00 66 30 102/48 (66) 95 06/30/19 06:00 98.9 64 30 97/57 (70) 99 06/30/19 05:00 66 30 102/48 (66) 95 06/30/19 04:00 Nasal Cannula 2.0 06/30/19 04:00 100.4 75 29 103/53 (70) 97 06/30/19 04:00 2.0 06/30/19 04:00 80 06/30/19 03:00 79 27 104/46 (65) 98 06/30/19 02:00 79 27 100/51 (67) 98 06/30/19 01:00 77 31 102/37 (58) 97 06/30/19 00:00 79 06/30/19 00:00 2.0 06/30/19 00:00 99.3 81 33 120/50 (73) 98 06/30/19 00:00 Nasal Cannula 2.0 06/29/19 23:00 80 34 107/51 (69) 99 06/29/19 22:00 80 31 114/48 (70) 100 06/29/19 21:00 78 28 108/54 (72) 98 06/29/19 20:22 96 Nasal Cannula 2.0 28 06/29/19 20:00 73 06/29/19 20:00 97.5 77 28 107/51 (69) 99 06/29/19 20:00 Nasal Cannula 2.0 06/29/19 20:00 2.0 06/29/19 19:00 75 31 95/53 (67) 99 06/29/19 18:00 73 29 95/53 (67) 99 06/29/19 17:00 72 30 91/57 (68) 98 06/29/19 16:00 98.6 85 32 113/56 (75) 97 06/29/19 16:00 1.5 06/29/19 16:00 84 06/29/19 16:00 Nasal Cannula 2.0 06/29/19 15:00 77 25 110/50 (70) 97 06/29/19 14:00 79 32 97/43 (61) 97 06/29/19 13:00 75 32 105/58 (74) 98 06/29/19 12:00 1.5 06/29/19 12:00 74 06/29/19 12:00 Nasal Cannula 2.0 06/29/19 12:00 97.4 71 29 105/69 (81) 98 06/29/19 11:00 70 32 99/69 (79) 99 Intake and Output 06/29/19 06/30/19 19:00 07:00 Intake Total 3228 ml 2895 ml Output Total 1405 ml 2265 ml Balance 1823 ml 630 ml Free Water 120 ml IV Total 2568 ml 2355 ml Tube Feeding 540 ml 540 ml Output Urine Total 405 ml 265 ml Stool Total 1000 ml 2000 ml Laboratory Tests 06/30/19 03:20: White Blood Count 17.0H, Red Blood Count 2.34L, Hemoglobin 7.4L, Hematocrit 23.6L, Mean Corpuscular Volume 101H, Mean Corpuscular Hemoglobin 31.6H, Mean Corpuscular Hemoglobin Concent 31.4L, Red Cell Distribution Width 23.7H, Platelet Count 68L, Mean Platelet Volume 9.4, Neutrophils (%) (Auto) , Lymphocytes (%) (Auto) , Monocytes (%) (Auto) , Eosinophils (%) (Auto) , Basophils (%) (Auto) , Differential Total Cells Counted 100, Neutrophils % ( Manual) 66, Lymphocytes % (Manual) 19L, Monocytes % (Manual) 2, Eosinophils % ( Manual) 0, Basophils % (Manual) 2, Band Neutrophils 11H, Platelet Estimate DecreasedL, Platelet Morphology Normal, Hypochromasia 2+, Anisocytosis 3+, Macrocytosis 1+, Tear Drop Cells Occasional, Ovalocytes Occasional, Sodium Level 150H, Potassium Level 3.7, Chloride Level 121H, Carbon Dioxide Level 16L, Anion Gap 13, Blood Urea Nitrogen 55H, Creatinine 3.0H, Estimat Glomerular Filtration Rate 23.4, Glucose Level 128H, Calcium Level 8.3L, Total Bilirubin 29.9H, Direct Bilirubin 24.7H, Aspartate Amino Transf (AST/SGOT) 103H, Alanine Aminotransferase (ALT/SGPT) 22, Alkaline Phosphatase 226H, Ammonia 52H, Total Protein 5.0L, Albumin 1.6L, Globulin 3.4, Albumin/Globulin Ratio 0.5L Height (Feet): 5 Height (Inches): 9.00 Weight (Pounds): 218 General Appearance: lethargic EENT: normal ENT inspection Neck: normal alignment Cardiovascular: normal peripheral pulses, normal rate, regular rhythm Respiratory/Chest: chest wall non-tender, lungs clear, normal breath sounds Abdomen: normal bowel sounds, non tender, soft Extremities: normal inspection Edema: no edema noted Arm (L), no edema noted Arm (R), no edema noted Leg (L), no edema noted Leg (R), no edema noted Pedal (L), no edema noted Pedal (R), no edema noted Generalized Neurologic: motor weakness Skin: normal pigmentation, warm/dry Deepak Juarez DO Jun 30, 2019 10:47
--- NOTE | 2019-06-30 11:26 | Nephrology Progress Note ---
Assessment/Plan Status: not improved, unchanged, deteriorating Assessment/Plan: A/P 1) MARCO- HRS 2 - rapid decline of renal function - family to decide on comfort/DNR - continue supportive care - Cr up to 3 2) ESLD- alcohol - per GI mgmt - increase midrodrine 3) Hypernatremia- continue D5W at reduced rate 4) Anemia- blood tx x 1 unit Subjective Date patient seen: Jun 30, 2019 Time patient seen: 11:23 ROS Limited/Unobtainable: Yes Allergies: Coded Allergies: No Known Allergies (Unverified , 06/20/19) Subjective Patient remains critically ill. Confused with NG Objective Last 24 Hour Vital Signs Date Time Temp Pulse Resp B/P (MAP) Pulse Ox O2 Delivery O2 Flow Rate FiO2 06/30/19 10:00 70 31 95/57 (70) 98 06/30/19 09:00 98.8 63 25 98/48 (65) 100 06/30/19 08:00 65 06/30/19 08:00 68 31 98/49 (65) 97 06/30/19 08:00 Nasal Cannula 3.0 06/30/19 08:00 2.0 06/30/19 07:30 100 Nasal Cannula 2.0 28 06/30/19 07:00 63 30 107/51 (69) 100 06/30/19 07:00 66 30 102/48 (66) 95 06/30/19 06:00 98.9 64 30 97/57 (70) 99 06/30/19 05:00 66 30 102/48 (66) 95 06/30/19 04:00 Nasal Cannula 2.0 06/30/19 04:00 100.4 75 29 103/53 (70) 97 06/30/19 04:00 2.0 06/30/19 04:00 80 06/30/19 03:00 79 27 104/46 (65) 98 06/30/19 02:00 79 27 100/51 (67) 98 06/30/19 01:00 77 31 102/37 (58) 97 06/30/19 00:00 79 06/30/19 00:00 2.0 06/30/19 00:00 99.3 81 33 120/50 (73) 98 06/30/19 00:00 Nasal Cannula 2.0 06/29/19 23:00 80 34 107/51 (69) 99 06/29/19 22:00 80 31 114/48 (70) 100 06/29/19 21:00 78 28 108/54 (72) 98 06/29/19 20:22 96 Nasal Cannula 2.0 28 06/29/19 20:00 73 06/29/19 20:00 97.5 77 28 107/51 (69) 99 06/29/19 20:00 Nasal Cannula 2.0 06/29/19 20:00 2.0 06/29/19 19:00 75 31 95/53 (67) 99 06/29/19 18:00 73 29 95/53 (67) 99 06/29/19 17:00 72 30 91/57 (68) 98 06/29/19 16:00 98.6 85 32 113/56 (75) 97 06/29/19 16:00 1.5 06/29/19 16:00 84 06/29/19 16:00 Nasal Cannula 2.0 06/29/19 15:00 77 25 110/50 (70) 97 06/29/19 14:00 79 32 97/43 (61) 97 06/29/19 13:00 75 32 105/58 (74) 98 06/29/19 12:00 1.5 06/29/19 12:00 74 06/29/19 12:00 Nasal Cannula 2.0 06/29/19 12:00 97.4 71 29 105/69 (81) 98 Intake and Output 06/29/19 06/30/19 19:00 07:00 Intake Total 3228 ml 2895 ml Output Total 1405 ml 2265 ml Balance 1823 ml 630 ml Free Water 120 ml IV Total 2568 ml 2355 ml Tube Feeding 540 ml 540 ml Output Urine Total 405 ml 265 ml Stool Total 1000 ml 2000 ml Laboratory Tests 06/30/19 03:20: White Blood Count 17.0H, Red Blood Count 2.34L, Hemoglobin 7.4L, Hematocrit 23.6L, Mean Corpuscular Volume 101H, Mean Corpuscular Hemoglobin 31.6H, Mean Corpuscular Hemoglobin Concent 31.4L, Red Cell Distribution Width 23.7H, Platelet Count 68L, Mean Platelet Volume 9.4, Neutrophils (%) (Auto) , Lymphocytes (%) (Auto) , Monocytes (%) (Auto) , Eosinophils (%) (Auto) , Basophils (%) (Auto) , Differential Total Cells Counted 100, Neutrophils % ( Manual) 66, Lymphocytes % (Manual) 19L, Monocytes % (Manual) 2, Eosinophils % ( Manual) 0, Basophils % (Manual) 2, Band Neutrophils 11H, Platelet Estimate DecreasedL, Platelet Morphology Normal, Hypochromasia 2+, Anisocytosis 3+, Macrocytosis 1+, Tear Drop Cells Occasional, Ovalocytes Occasional, Sodium Level 150H, Potassium Level 3.7, Chloride Level 121H, Carbon Dioxide Level 16L, Anion Gap 13, Blood Urea Nitrogen 55H, Creatinine 3.0H, Estimat Glomerular Filtration Rate 23.4, Glucose Level 128H, Calcium Level 8.3L, Total Bilirubin 29.9H, Direct Bilirubin 24.7H, Aspartate Amino Transf (AST/SGOT) 103H, Alanine Aminotransferase (ALT/SGPT) 22, Alkaline Phosphatase 226H, Ammonia 52H, Total Protein 5.0L, Albumin 1.6L, Globulin 3.4, Albumin/Globulin Ratio 0.5L Height (Feet): 5 Height (Inches): 9.00 Weight (Pounds): 218 General Appearance: lethargic EENT: normal ENT inspection Cardiovascular: normal rate, regular rhythm Respiratory/Chest: rhonchi - bilaterally Abdomen: distended Edema: 1+ Arm (L), 1+ Arm (R), 1+ Leg (L), 1+ Leg (R), 1+ Pedal (L), 1+ Pedal ( R), 1+ Generalized Cirilo Sanchez MD Jun 30, 2019 11:26
--- NOTE | 2019-06-30 14:40 | Cardiac Electrophysiology PN ---
Assessment/Plan Assessment/Plan 1. Sinus tach due to alcohol withdrawal and hepatic encephalopathy. No SVT or atrial fibrillation. EF 55% 2. Cirrhosis. On Lactulose and albumin S/P paracentesis 3. Hypotension BP 80 better after albumin. Increase Midodrine to 5 tid S/P PICC line in case needs pressors 4. Hepatorenal syndrome. Creatinine is 2. Fu . 5. Hypokalemia. 6. Alcohol intoxication. Thiamine, folate, and Librium. 7. Hepatic encephalopathy DW RN Subjective Subjective in ICU in restraints and lethargic. BP dropped to 70s earlier. No arrhythmias and off pressors Objective Last 24 Hour Vital Signs Date Time Temp Pulse Resp B/P (MAP) Pulse Ox O2 Delivery O2 Flow Rate FiO2 06/30/19 14:00 61 24 105/59 (74) 100 06/30/19 13:00 65 28 92/52 (65) 100 06/30/19 12:00 3.0 06/30/19 12:00 66 06/30/19 12:00 98.9 64 27 100/46 (64) 100 06/30/19 12:00 Nasal Cannula 3.0 06/30/19 11:00 63 28 104/45 (64) 98 06/30/19 10:00 70 31 95/57 (70) 98 06/30/19 09:00 98.8 63 25 98/48 (65) 100 06/30/19 08:00 65 06/30/19 08:00 68 31 98/49 (65) 97 06/30/19 08:00 Nasal Cannula 3.0 06/30/19 08:00 2.0 06/30/19 07:30 100 Nasal Cannula 2.0 28 06/30/19 07:00 63 30 107/51 (69) 100 06/30/19 07:00 66 30 102/48 (66) 95 06/30/19 06:00 98.9 64 30 97/57 (70) 99 06/30/19 05:00 66 30 102/48 (66) 95 06/30/19 04:00 Nasal Cannula 2.0 06/30/19 04:00 100.4 75 29 103/53 (70) 97 06/30/19 04:00 2.0 06/30/19 04:00 80 06/30/19 03:00 79 27 104/46 (65) 98 06/30/19 02:00 79 27 100/51 (67) 98 06/30/19 01:00 77 31 102/37 (58) 97 06/30/19 00:00 79 06/30/19 00:00 2.0 06/30/19 00:00 99.3 81 33 120/50 (73) 98 06/30/19 00:00 Nasal Cannula 2.0 06/29/19 23:00 80 34 107/51 (69) 99 06/29/19 22:00 80 31 114/48 (70) 100 06/29/19 21:00 78 28 108/54 (72) 98 06/29/19 20:22 96 Nasal Cannula 2.0 28 06/29/19 20:00 73 06/29/19 20:00 97.5 77 28 107/51 (69) 99 06/29/19 20:00 Nasal Cannula 2.0 06/29/19 20:00 2.0 06/29/19 19:00 75 31 95/53 (67) 99 06/29/19 18:00 73 29 95/53 (67) 99 06/29/19 17:00 72 30 91/57 (68) 98 06/29/19 16:00 98.6 85 32 113/56 (75) 97 06/29/19 16:00 1.5 06/29/19 16:00 84 06/29/19 16:00 Nasal Cannula 2.0 06/29/19 15:00 77 25 110/50 (70) 97 Intake and Output 06/29/19 06/30/19 19:00 07:00 Intake Total 3228 ml 2895 ml Output Total 1405 ml 2265 ml Balance 1823 ml 630 ml Free Water 120 ml IV Total 2568 ml 2355 ml Tube Feeding 540 ml 540 ml Output Urine Total 405 ml 265 ml Stool Total 1000 ml 2000 ml Laboratory Tests Test 06/30/19 03:20 White Blood Count 17.0 K/UL (4.8-10.8) H Red Blood Count 2.34 M/UL (4.70-6.10) L Hemoglobin 7.4 G/DL (14.2-18.0) L Hematocrit 23.6 % (42.0-52.0) L Mean Corpuscular Volume 101 FL (80-99) H Mean Corpuscular Hemoglobin 31.6 PG (27.0-31.0) H Mean Corpuscular Hemoglobin Concent 31.4 G/DL (32.0-36.0) L Red Cell Distribution Width 23.7 % (11.6-14.8) H Platelet Count 68 K/UL (150-450) L Mean Platelet Volume 9.4 FL (6.5-10.1) Neutrophils (%) (Auto) % (45.0-75.0) Lymphocytes (%) (Auto) % (20.0-45.0) Monocytes (%) (Auto) % (1.0-10.0) Eosinophils (%) (Auto) % (0.0-3.0) Basophils (%) (Auto) % (0.0-2.0) Differential Total Cells Counted 100 Neutrophils % (Manual) 66 % (45-75) Lymphocytes % (Manual) 19 % (20-45) L Monocytes % (Manual) 2 % (1-10) Eosinophils % (Manual) 0 % (0-3) Basophils % (Manual) 2 % (0-2) Band Neutrophils 11 % (0-8) H Platelet Estimate Decreased L Platelet Morphology Normal Hypochromasia 2+ Anisocytosis 3+ Macrocytosis 1+ Tear Drop Cells Occasional Ovalocytes Occasional Sodium Level 150 MMOL/L (136-145) H Potassium Level 3.7 MMOL/L (3.5-5.1) Chloride Level 121 MMOL/L (98-107) H Carbon Dioxide Level 16 MMOL/L (21-32) L Anion Gap 13 mmol/L (5-15) Blood Urea Nitrogen 55 mg/dL (7-18) H Creatinine 3.0 MG/DL (0.55-1.30) H Estimat Glomerular Filtration Rate 23.4 mL/min (>60) Glucose Level 128 MG/DL (74-106) H Calcium Level 8.3 MG/DL (8.5-10.1) L Total Bilirubin 29.9 MG/DL (0.2-1.0) H Direct Bilirubin 24.7 MG/DL (0.0-0.3) H Aspartate Amino Transf (AST/SGOT) 103 U/L (15-37) H Alanine Aminotransferase (ALT/SGPT) 22 U/L (12-78) Alkaline Phosphatase 226 U/L (46-116) H Ammonia 52 umol/L (11-32) H Total Protein 5.0 G/DL (6.4-8.2) L Albumin 1.6 G/DL (3.4-5.0) L Globulin 3.4 g/dL Albumin/Globulin Ratio 0.5 (1.0-2.7) L Objective HEAD AND NECK: No JVD. Sclera is icteric LUNGS: Decreased breath sounds. CARDIOVASCULAR: TachyS1 and S2 with no gallop. ABDOMEN: Distended with ascites. EXTREMITIES: 2+ pitting edema. Felice Smith MD Jun 30, 2019 14:40
[2019-06-30] MEDS: DOPamine 400mg/250ml 250 ML IV SCH (14:53)
[2019-06-30] MEDS ORDERED: NS 275ml ONE (15:14)
[2019-06-30] MEDS ORDERED: Tubing IV Secondary IV ONE (15:14)
--- NOTE | 2019-06-30 16:16 | General Progress Note ---
Assessment/Plan Status: not improved, unchanged, deteriorating Assessment/Plan: Assessment Problem List: (1) Pancreatitis, alcoholic, acute ICD Codes: K85.20 - Alcohol induced acute pancreatitis without necrosis or infection SNOMED: 338574329, 1844881 Qualifiers: Qualified Codes: K85.20 - Alcohol induced acute pancreatitis without necrosis or infection (2) Acute alcoholic intoxication ICD Codes: F10.929 - Alcohol use, unspecified with intoxication, unspecified SNOMED: 17651273, 5762276 Qualifiers: Qualified Codes: F10.920 - Alcohol use, unspecified with intoxication, uncomplicated (3) Anemia ICD Codes: D64.9 - Anemia, unspecified SNOMED: 646615107 Qualifiers: Qualified Codes: D64.9 - Anemia, unspecified Status: not improved, unchanged, deteriorating Assessment/Plan: discriminant factor of 16 start NGTF>>> Glucerna 1.5 at 45 cc repeat labs fu nephrology cont lactulose xifaxan off aldactone wean off sandostatin add albumin swallow eval Subjective Allergies: Coded Allergies: No Known Allergies (Unverified , 06/20/19) Subjective above noted seen in ICU d/w RN arousable, no complaints Objective Last 24 Hour Vital Signs Date Time Temp Pulse Resp B/P (MAP) Pulse Ox O2 Delivery O2 Flow Rate FiO2 06/30/19 16:00 63 06/30/19 16:00 3.0 06/30/19 16:00 Nasal Cannula 3.0 06/30/19 15:00 65 28 98/39 (58) 100 06/30/19 14:53 105/59 06/30/19 14:00 61 24 105/59 (74) 100 06/30/19 13:00 65 28 92/52 (65) 100 06/30/19 12:00 3.0 06/30/19 12:00 66 06/30/19 12:00 98.9 64 27 100/46 (64) 100 06/30/19 12:00 Nasal Cannula 3.0 06/30/19 11:00 63 28 104/45 (64) 98 06/30/19 10:00 70 31 95/57 (70) 98 06/30/19 09:00 98.8 63 25 98/48 (65) 100 06/30/19 08:00 65 06/30/19 08:00 68 31 98/49 (65) 97 06/30/19 08:00 Nasal Cannula 3.0 06/30/19 08:00 2.0 06/30/19 07:30 100 Nasal Cannula 2.0 28 06/30/19 07:00 63 30 107/51 (69) 100 06/30/19 07:00 66 30 102/48 (66) 95 06/30/19 06:00 98.9 64 30 97/57 (70) 99 06/30/19 05:00 66 30 102/48 (66) 95 06/30/19 04:00 Nasal Cannula 2.0 06/30/19 04:00 100.4 75 29 103/53 (70) 97 06/30/19 04:00 2.0 06/30/19 04:00 80 06/30/19 03:00 79 27 104/46 (65) 98 06/30/19 02:00 79 27 100/51 (67) 98 06/30/19 01:00 77 31 102/37 (58) 97 06/30/19 00:00 79 06/30/19 00:00 2.0 06/30/19 00:00 99.3 81 33 120/50 (73) 98 06/30/19 00:00 Nasal Cannula 2.0 06/29/19 23:00 80 34 107/51 (69) 99 06/29/19 22:00 80 31 114/48 (70) 100 06/29/19 21:00 78 28 108/54 (72) 98 06/29/19 20:22 96 Nasal Cannula 2.0 28 06/29/19 20:00 73 06/29/19 20:00 97.5 77 28 107/51 (69) 99 06/29/19 20:00 Nasal Cannula 2.0 06/29/19 20:00 2.0 06/29/19 19:00 75 31 95/53 (67) 99 06/29/19 18:00 73 29 95/53 (67) 99 06/29/19 17:00 72 30 91/57 (68) 98 Intake and Output 06/29/19 06/30/19 18:59 06:59 Intake Total 3178 ml 2895 ml Output Total 1435 ml 2275 ml Balance 1743 ml 620 ml Free Water 120 ml IV Total 2518 ml 2355 ml Tube Feeding 540 ml 540 ml Output Urine Total 435 ml 275 ml Stool Total 1000 ml 2000 ml Laboratory Tests 06/30/19 03:20: White Blood Count 17.0H, Red Blood Count 2.34L, Hemoglobin 7.4L, Hematocrit 23.6L, Mean Corpuscular Volume 101H, Mean Corpuscular Hemoglobin 31.6H, Mean Corpuscular Hemoglobin Concent 31.4L, Red Cell Distribution Width 23.7H, Platelet Count 68L, Mean Platelet Volume 9.4, Neutrophils (%) (Auto) , Lymphocytes (%) (Auto) , Monocytes (%) (Auto) , Eosinophils (%) (Auto) , Basophils (%) (Auto) , Differential Total Cells Counted 100, Neutrophils % ( Manual) 66, Lymphocytes % (Manual) 19L, Monocytes % (Manual) 2, Eosinophils % ( Manual) 0, Basophils % (Manual) 2, Band Neutrophils 11H, Platelet Estimate DecreasedL, Platelet Morphology Normal, Hypochromasia 2+, Anisocytosis 3+, Macrocytosis 1+, Tear Drop Cells Occasional, Ovalocytes Occasional, Sodium Level 150H, Potassium Level 3.7, Chloride Level 121H, Carbon Dioxide Level 16L, Anion Gap 13, Blood Urea Nitrogen 55H, Creatinine 3.0H, Estimat Glomerular Filtration Rate 23.4, Glucose Level 128H, Calcium Level 8.3L, Total Bilirubin 29.9H, Direct Bilirubin 24.7H, Aspartate Amino Transf (AST/SGOT) 103H, Alanine Aminotransferase (ALT/SGPT) 22, Alkaline Phosphatase 226H, Ammonia 52H, Total Protein 5.0L, Albumin 1.6L, Globulin 3.4, Albumin/Globulin Ratio 0.5L Height (Feet): 5 Height (Inches): 9.00 Weight (Pounds): 218 Objective Obese man NCAT supple CTA RR abd soft distended (+) edema Lucila Rios MD Jun 30, 2019 16:16
[2019-06-30] MEDS ORDERED: Octreotide Acetate 500 MCG in Sodium Chloride 499 ML IV SCH (16:30)
[2019-06-30] MEDS: Dyna-Hex 2% Top Sol 2oz TOPIC SCH (20:24)
--- NOTE | 2019-06-30 21:41 | Pulmonolgy Critical Care Note ---
Critical Care - Asmt/Plan Assessment/Plan: Pulmonary CCM Consultation HPI This is a 39-year-old male who is an alcoholic with significant fatty liver on abdominal CT and alcoholic hepatitis, DF 16, not candidate for steroids currently per GI. He has been drinking heavily for 3 months straight. He stopped drinking [employer]. Noted to have Hepatic Encephalopathy and Hepatorenal Syndrome. No bleeding. No nausea no vomiting. Nothing made it better. Movement or exertion makes it worse. Noted to have significant hypokalemia and alkalosis, evidence of sepsis, source unclear - some bacteria in urine, mid ascites - possible SBP, dilated Gallbladder On NC O2, on Lactulose, pulled out NGT - reinserted Na improving, renal function worse More awake, remains confused Required IV volume challenges, Midodrine, PRN dopamine to maintain BP Allergies: No Known Allergies Past Medical History: Alcohol abuse All Other Systems: negative except mentioned in HPI Physical Exam Vital Signs Noted General Appearance: Jaundiced, awake Head: normocephalic, atraumatic Eyes: bilateral eye PERRL, bilateral eye EOMI, bilateral eye scleral icterus ENT: moist mm Neck: no masses, no LN Respiratory: chest non-tender, lungs clear, normal breath sounds Cardiovascular: regular rate, rhythm, Normal HS1, HS2, no murmur, tachycardia Gastrointestinal: Obese, hepatomegaly, some tenderness RUQ, normal bowel sounds , no mass, no rebound Musculoskeletal: moves all limbs Neurologic: responds to commands, awake Skin: jaundiced, moderate edema Impression: Acute alcoholic intoxication Severe Sepsis Alcoholic Hepatitis Possible Cirrhosis Metabolic and respiratory alkalosis Possible Portal Hypertension Hepatorenal syndrome - worsening renal function Hypernatremia Pancreatitis, alcoholic, acute Anemia Monitor CXR/ABG Plan ICU management NPO except meds IV antibiotics per ID Aspiration precautions GI/Renal following IVF per Nephrology Pressors PRN Intubate PRN for airway protection Transfuse PRN Thiamine Monitor labs K supplementation Adjust FIO2 - sats 90-96% Labs: noted EKG: Rate: tachycardiac Rhythm: NSR ST Segments: other - NSST changes Chest X-Ray: hypoventilatory exam, no consolidation, no effusion, no pneumothorax, no acute cardiopulmonary disease CT abdomen pelvis: Severely enlarged liver and fatty liver. Mild ascites. Critical Care - Objective Last 24 Hour Vital Signs Date Time Temp Pulse Resp B/P (MAP) Pulse Ox O2 Delivery O2 Flow Rate FiO2 06/30/19 21:00 62 25 96/46 (63) 100 06/30/19 20:42 2.0 06/30/19 20:00 70 06/30/19 20:00 Nasal Cannula 2.0 06/30/19 20:00 99.9 69 30 105/54 (71) 100 06/30/19 19:00 70 30 93/50 (64) 100 06/30/19 18:38 99 Nasal Cannula 2.0 28 06/30/19 18:38 68 25 99 Nasal Cannula 2.0 28 06/30/19 18:00 68 27 92/40 (57) 100 06/30/19 17:00 69 24 87/43 (58) 98 06/30/19 16:30 66 28 81/47 (58) 98 06/30/19 16:00 63 06/30/19 16:00 99.0 64 25 77/46 (56) 100 06/30/19 16:00 3.0 06/30/19 16:00 Nasal Cannula 3.0 06/30/19 15:00 65 28 98/39 (58) 100 06/30/19 14:53 105/59 06/30/19 14:00 61 24 105/59 (74) 100 06/30/19 13:00 65 28 92/52 (65) 100 06/30/19 12:00 3.0 06/30/19 12:00 66 06/30/19 12:00 98.9 64 27 100/46 (64) 100 06/30/19 12:00 Nasal Cannula 3.0 06/30/19 11:00 63 28 104/45 (64) 98 06/30/19 10:00 70 31 95/57 (70) 98 06/30/19 09:00 98.8 63 25 98/48 (65) 100 06/30/19 08:00 65 06/30/19 08:00 68 31 98/49 (65) 97 06/30/19 08:00 Nasal Cannula 3.0 06/30/19 08:00 2.0 06/30/19 07:30 100 Nasal Cannula 2.0 28 06/30/19 07:00 63 30 107/51 (69) 100 06/30/19 07:00 66 30 102/48 (66) 95 06/30/19 06:00 98.9 64 30 97/57 (70) 99 06/30/19 05:00 66 30 102/48 (66) 95 06/30/19 04:00 Nasal Cannula 2.0 06/30/19 04:00 100.4 75 29 103/53 (70) 97 06/30/19 04:00 2.0 06/30/19 04:00 80 06/30/19 03:00 79 27 104/46 (65) 98 06/30/19 02:00 79 27 100/51 (67) 98 06/30/19 01:00 77 31 102/37 (58) 97 06/30/19 00:00 79 06/30/19 00:00 2.0 06/30/19 00:00 99.3 81 33 120/50 (73) 98 06/30/19 00:00 Nasal Cannula 2.0 06/29/19 23:00 80 34 107/51 (69) 99 06/29/19 22:00 80 31 114/48 (70) 100 Critical Care - Subjective ROS Limited/Unobtainable: No FI02: 28 Sputum Amount: None Tube Feeding Amount: 45 I&O: Intake and Output 06/29/19 06/30/19 19:00 07:00 Intake Total 3228 ml 2895 ml Output Total 1405 ml 2265 ml Balance 1823 ml 630 ml Free Water 120 ml IV Total 2568 ml 2355 ml Tube Feeding 540 ml 540 ml Output Urine Total 405 ml 265 ml Stool Total 1000 ml 2000 ml Quang Domingo MD Jun 30, 2019 21:41
[2019-07-01] VITALS (25 sets, daily range): BP systolic 89–121; BP diastolic 41–73
[2019-07-01 04:49] LABS: MEAN CORPUSCULAR VOLUME 102 FL (80-99); PLATELET COUNT 73 K/UL (150-450); RED BLOOD COUNT 2.55 M/UL (4.70-6.10); RED CELL DISTRIBUTION WIDTH 23.6 % (11.6-14.8); WHITE BLOOD COUNT 16.3 K/UL (4.8-10.8)
[2019-07-01 05:00] LABS: ANION GAP 15 mmol/L (5-15); BLOOD UREA NITROGEN 64 mg/dL (7-18); CARBON DIOXIDE 14 MMOL/L (21-32); CHLORIDE 118 MMOL/L (98-107); CREATININE 4.6 MG/DL (0.55-1.30); POTASSIUM 3.7 MMOL/L (3.5-5.1); SODIUM 146 MMOL/L (136-145)
[2019-07-01] MEDS: metroNIDAZOLE 500mg tab NG SCH ×3 (06:08→21:01)
--- NOTE | 2019-07-01 07:57 | General Progress Note ---
Assessment/Plan Status: not improved, unchanged, deteriorating Assessment/Plan: Assessment EtOH abuse EtOH hepatitis Jaundice/liver failure rising Cr, HRS Hepatic encephalopathy anemia, thombocytopenia hypotension poor prognosis Recommendations Increase midodrine continue octreotide albumin continue TF PPI antibiotics Subjective Allergies: Coded Allergies: No Known Allergies (Unverified , 06/20/19) Subjective above noted seen in ICU d/w RN sleepy hypotensive Cr rising on TF diarrhea with lactulose Objective Last 24 Hour Vital Signs Date Time Temp Pulse Resp B/P (MAP) Pulse Ox O2 Delivery O2 Flow Rate FiO2 07/01/19 07:00 62 28 98/41 (60) 98 07/01/19 06:39 60 25 100 Nasal Cannula 2.0 28 07/01/19 06:39 99 Nasal Cannula 2.0 28 07/01/19 06:00 62 27 99/50 (66) 98 07/01/19 05:00 60 26 95/44 (61) 98 07/01/19 04:00 2.0 07/01/19 04:00 62 07/01/19 04:00 100.0 62 25 89/45 (60) 97 07/01/19 04:00 Nasal Cannula 2.0 07/01/19 03:00 68 32 121/46 (71) 99 07/01/19 02:00 65 28 102/44 (63) 99 07/01/19 01:00 64 27 94/46 (62) 99 07/01/19 00:00 2.0 07/01/19 00:00 Nasal Cannula 2.0 07/01/19 00:00 65 07/01/19 00:00 99.5 66 30 94/73 (80) 99 06/30/19 23:00 67 28 108/69 (82) 100 06/30/19 22:00 65 28 100/36 (57) 100 06/30/19 21:00 62 25 96/46 (63) 100 06/30/19 20:42 2.0 06/30/19 20:00 70 06/30/19 20:00 Nasal Cannula 2.0 06/30/19 20:00 99.9 69 30 105/54 (71) 100 06/30/19 19:00 70 30 93/50 (64) 100 06/30/19 18:38 99 Nasal Cannula 2.0 28 06/30/19 18:38 68 25 99 Nasal Cannula 2.0 28 06/30/19 18:00 68 27 92/40 (57) 100 06/30/19 17:00 69 24 87/43 (58) 98 06/30/19 16:30 66 28 81/47 (58) 98 06/30/19 16:00 63 06/30/19 16:00 99.0 64 25 77/46 (56) 100 06/30/19 16:00 3.0 06/30/19 16:00 Nasal Cannula 3.0 06/30/19 15:00 65 28 98/39 (58) 100 06/30/19 14:53 105/59 06/30/19 14:00 61 24 105/59 (74) 100 06/30/19 13:00 65 28 92/52 (65) 100 06/30/19 12:00 3.0 06/30/19 12:00 66 06/30/19 12:00 98.9 64 27 100/46 (64) 100 06/30/19 12:00 Nasal Cannula 3.0 06/30/19 11:00 63 28 104/45 (64) 98 06/30/19 10:00 70 31 95/57 (70) 98 06/30/19 09:00 98.8 63 25 98/48 (65) 100 06/30/19 08:00 65 06/30/19 08:00 68 31 98/49 (65) 97 06/30/19 08:00 Nasal Cannula 3.0 06/30/19 08:00 2.0 Intake and Output 06/30/19 07/01/19 19:00 07:00 Intake Total 3038.75 ml 1915 ml Output Total 905 ml 1170 ml Balance 2133.75 ml 745 ml Free Water 170 ml 200 ml IV Total 1828.75 ml 1175 ml Tube Feeding 540 ml 540 ml Blood Product 500 ml Output Urine Total 105 ml 70 ml Stool Total 800 ml 1100 ml Laboratory Tests 06/30/19 16:53: Sodium Level 147H 07/01/19 04:30: Sodium Level 146H, White Blood Count 16.3H, Red Blood Count 2.55L, Hemoglobin 8.0L, Hematocrit 26.0L, Mean Corpuscular Volume 102H, Mean Corpuscular Hemoglobin 31.3H, Mean Corpuscular Hemoglobin Concent 30.8L, Red Cell Distribution Width 23.6H, Platelet Count 73L, Mean Platelet Volume 9.7, Neutrophils (%) (Auto) , Lymphocytes (%) (Auto) , Monocytes (%) (Auto) , Eosinophils (%) (Auto) , Basophils (%) (Auto) , Neutrophils % (Manual) [Pending] , Lymphocytes % (Manual) [Pending], Platelet Estimate [Pending], Platelet Morphology [Pending], Potassium Level 3.7, Chloride Level 118H, Carbon Dioxide Level 14L, Anion Gap 15, Blood Urea Nitrogen 64H, Creatinine 4.6#H, Estimat Glomerular Filtration Rate 14.3, Glucose Level 121H, Calcium Level 8.0L Height (Feet): 5 Height (Inches): 9.00 Weight (Pounds): 217 Objective Obese man NCAT supple CTA RR abd soft distended (+) edema somnolent, wakes up confused with stimulation Lucila Rios MD Jul 01, 2019 07:57
[2019-07-01] MEDS: Lactulose 20gm/30ml UDC NG SCH ×4 (08:46→20:56)
[2019-07-01] MEDS: Pantoprazole Inj IVP SCH ×2 (08:46→20:56)
[2019-07-01] MEDS: cefTRIAXone 1 GM in D5W 55 ML IVPB SCH (08:46)
[2019-07-01] MEDS: Midodrine 10mg tab ORAL SCH ×3 (09:08→21:01)
[2019-07-01] MEDS: Octreotide Acetate 500 MCG in Sodium Chloride 499 ML IV SCH ×2 (09:26→19:17)
--- NOTE | 2019-07-01 10:03 | Nephrology Progress Note ---
Assessment/Plan Status: not improved, unchanged, deteriorating Assessment/Plan: A/P 1) MARCO- HRS 2, rapid decline of renal function - family to decide on comfort/DNR today - continue supportive care - Cr up to 4.6 2) ESLD- alcohol - per GI mgmt - increase midrodrine per GI 3) Hypernatremia- continue D5W at reduced rate as sodium 146 4) Anemia- blood tx x 1 unit prn Subjective Date patient seen: Jul 01, 2019 Time patient seen: 09:55 ROS Limited/Unobtainable: Yes Allergies: Coded Allergies: No Known Allergies (Unverified , 06/20/19) Subjective Patient remains critically ill. Family to decide on hospice later this afternoon Objective Last 24 Hour Vital Signs Date Time Temp Pulse Resp B/P (MAP) Pulse Ox O2 Delivery O2 Flow Rate FiO2 07/01/19 09:00 63 27 97/47 (64) 98 07/01/19 08:00 Nasal Cannula 2.0 07/01/19 08:00 98.0 63 26 95/47 (63) 99 07/01/19 08:00 2.0 07/01/19 08:00 61 07/01/19 07:00 62 28 98/41 (60) 98 07/01/19 06:39 60 25 100 Nasal Cannula 2.0 28 07/01/19 06:39 99 Nasal Cannula 2.0 28 07/01/19 06:00 62 27 99/50 (66) 98 07/01/19 05:00 60 26 95/44 (61) 98 07/01/19 04:00 2.0 07/01/19 04:00 62 07/01/19 04:00 100.0 62 25 89/45 (60) 97 07/01/19 04:00 Nasal Cannula 2.0 07/01/19 03:00 68 32 121/46 (71) 99 07/01/19 02:00 65 28 102/44 (63) 99 07/01/19 01:00 64 27 94/46 (62) 99 07/01/19 00:00 2.0 07/01/19 00:00 Nasal Cannula 2.0 07/01/19 00:00 65 07/01/19 00:00 99.5 66 30 94/73 (80) 99 06/30/19 23:00 67 28 108/69 (82) 100 06/30/19 22:00 65 28 100/36 (57) 100 06/30/19 21:00 62 25 96/46 (63) 100 06/30/19 20:42 2.0 06/30/19 20:00 70 06/30/19 20:00 Nasal Cannula 2.0 06/30/19 20:00 99.9 69 30 105/54 (71) 100 06/30/19 19:00 70 30 93/50 (64) 100 06/30/19 18:38 99 Nasal Cannula 2.0 28 06/30/19 18:38 68 25 99 Nasal Cannula 2.0 28 06/30/19 18:00 68 27 92/40 (57) 100 06/30/19 17:00 69 24 87/43 (58) 98 06/30/19 16:30 66 28 81/47 (58) 98 06/30/19 16:00 63 06/30/19 16:00 99.0 64 25 77/46 (56) 100 06/30/19 16:00 3.0 06/30/19 16:00 Nasal Cannula 3.0 06/30/19 15:00 65 28 98/39 (58) 100 06/30/19 14:53 105/59 06/30/19 14:00 61 24 105/59 (74) 100 06/30/19 13:00 65 28 92/52 (65) 100 06/30/19 12:00 3.0 06/30/19 12:00 66 06/30/19 12:00 98.9 64 27 100/46 (64) 100 06/30/19 12:00 Nasal Cannula 3.0 06/30/19 11:00 63 28 104/45 (64) 98 06/30/19 10:00 70 31 95/57 (70) 98 Intake and Output 06/30/19 07/01/19 19:00 07:00 Intake Total 3038.75 ml 1915 ml Output Total 905 ml 1170 ml Balance 2133.75 ml 745 ml Free Water 170 ml 200 ml IV Total 1828.75 ml 1175 ml Tube Feeding 540 ml 540 ml Blood Product 500 ml Output Urine Total 105 ml 70 ml Stool Total 800 ml 1100 ml Laboratory Tests 06/30/19 16:53: Sodium Level 147H 9/8/19 04:30: Sodium Level 146H, White Blood Count 16.3H, Red Blood Count 2.55L, Hemoglobin 8.0L, Hematocrit 26.0L, Mean Corpuscular Volume 102H, Mean Corpuscular Hemoglobin 31.3H, Mean Corpuscular Hemoglobin Concent 30.8L, Red Cell Distribution Width 23.6H, Platelet Count 73L, Mean Platelet Volume 9.7, Neutrophils (%) (Auto) , Lymphocytes (%) (Auto) , Monocytes (%) (Auto) , Eosinophils (%) (Auto) , Basophils (%) (Auto) , Differential Total Cells Counted 100, Neutrophils % (Manual) 81H, Lymphocytes % (Manual) 9L, Monocytes % (Manual) 4, Eosinophils % (Manual) 1, Basophils % (Manual) 0, Band Neutrophils 5 , Platelet Estimate DecreasedL, Platelet Morphology Normal, Hypochromasia 1+, Anisocytosis 2+, Macrocytosis 1+, Potassium Level 3.7, Chloride Level 118H, Carbon Dioxide Level 14L, Anion Gap 15, Blood Urea Nitrogen 64H, Creatinine 4.6# H, Estimat Glomerular Filtration Rate 14.3, Glucose Level 121H, Calcium Level 8.0L Height (Feet): 5 Height (Inches): 9.00 Weight (Pounds): 217 General Appearance: no apparent distress, alert EENT: normal ENT inspection Neck: normal alignment, supple Cardiovascular: normal rate, regular rhythm Respiratory/Chest: lungs clear, normal breath sounds Abdomen: non tender, soft Edema: no edema noted Arm (L), no edema noted Arm (R), no edema noted Leg (L), no edema noted Leg (R), no edema noted Pedal (L), no edema noted Pedal (R), no edema noted Generalized Cirilo Sanchez MD Jul 01, 2019 10:03
--- NOTE | 2019-07-01 10:48 | General Progress Note ---
Assessment/Plan Problem List: (1) Anemia ICD Codes: D64.9 - Anemia, unspecified SNOMED: 149264262 Qualifiers: Qualified Codes: D64.9 - Anemia, unspecified (2) Acute alcoholic intoxication ICD Codes: F10.929 - Alcohol use, unspecified with intoxication, unspecified SNOMED: 50357941, 6278408 Qualifiers: Qualified Codes: F10.920 - Alcohol use, unspecified with intoxication, uncomplicated (3) End-stage liver disease ICD Codes: K72.90 - Hepatic failure, unspecified without coma SNOMED: 018033140 (4) Pancreatitis, alcoholic, acute ICD Codes: K85.20 - Alcohol induced acute pancreatitis without necrosis or infection SNOMED: 936456413, 3713749 Qualifiers: Qualified Codes: K85.20 - Alcohol induced acute pancreatitis without necrosis or infection (5) Hepatorenal syndrome ICD Codes: K76.7 - Hepatorenal syndrome SNOMED: 89584930, 8056868 (6) Respiratory failure ICD Codes: J96.90 - Respiratory failure, unspecified, unspecified whether with hypoxia or hypercapnia SNOMED: 446591599 (7) Hypernatremia ICD Codes: E87.0 - Hyperosmolality and hypernatremia SNOMED: 134075881 Status: not improved, unchanged, deteriorating Assessment/Plan: o2 pulm tx abx prn neph f/u cbc bmp am Subjective Constitutional: Reports: weakness Allergies: Coded Allergies: No Known Allergies (Unverified , 06/20/19) All Systems: reviewed and negative except above Subjective o2nc ng asleep in icu Objective Last 24 Hour Vital Signs Date Time Temp Pulse Resp B/P (MAP) Pulse Ox O2 Delivery O2 Flow Rate FiO2 07/01/19 10:00 69 32 98/46 (63) 97 07/01/19 09:00 63 27 97/47 (64) 98 07/01/19 08:00 Nasal Cannula 2.0 07/01/19 08:00 98.0 63 26 95/47 (63) 99 07/01/19 08:00 2.0 07/01/19 08:00 61 07/01/19 07:00 62 28 98/41 (60) 98 07/01/19 06:39 60 25 100 Nasal Cannula 2.0 28 07/01/19 06:39 99 Nasal Cannula 2.0 28 07/01/19 06:00 62 27 99/50 (66) 98 07/01/19 05:00 60 26 95/44 (61) 98 07/01/19 04:00 2.0 07/01/19 04:00 62 07/01/19 04:00 100.0 62 25 89/45 (60) 97 07/01/19 04:00 Nasal Cannula 2.0 07/01/19 03:00 68 32 121/46 (71) 99 07/01/19 02:00 65 28 102/44 (63) 99 07/01/19 01:00 64 27 94/46 (62) 99 07/01/19 00:00 2.0 07/01/19 00:00 Nasal Cannula 2.0 07/01/19 00:00 65 07/01/19 00:00 99.5 66 30 94/73 (80) 99 06/30/19 23:00 67 28 108/69 (82) 100 06/30/19 22:00 65 28 100/36 (57) 100 06/30/19 21:00 62 25 96/46 (63) 100 06/30/19 20:42 2.0 06/30/19 20:00 70 06/30/19 20:00 Nasal Cannula 2.0 06/30/19 20:00 99.9 69 30 105/54 (71) 100 06/30/19 19:00 70 30 93/50 (64) 100 06/30/19 18:38 99 Nasal Cannula 2.0 28 06/30/19 18:38 68 25 99 Nasal Cannula 2.0 28 06/30/19 18:00 68 27 92/40 (57) 100 06/30/19 17:00 69 24 87/43 (58) 98 06/30/19 16:30 66 28 81/47 (58) 98 06/30/19 16:00 63 06/30/19 16:00 99.0 64 25 77/46 (56) 100 06/30/19 16:00 3.0 06/30/19 16:00 Nasal Cannula 3.0 06/30/19 15:00 65 28 98/39 (58) 100 06/30/19 14:53 105/59 06/30/19 14:00 61 24 105/59 (74) 100 06/30/19 13:00 65 28 92/52 (65) 100 06/30/19 12:00 3.0 06/30/19 12:00 66 06/30/19 12:00 98.9 64 27 100/46 (64) 100 06/30/19 12:00 Nasal Cannula 3.0 06/30/19 11:00 63 28 104/45 (64) 98 Intake and Output 06/30/19 07/01/19 19:00 07:00 Intake Total 3038.75 ml 1915 ml Output Total 905 ml 1170 ml Balance 2133.75 ml 745 ml Free Water 170 ml 200 ml IV Total 1828.75 ml 1175 ml Tube Feeding 540 ml 540 ml Blood Product 500 ml Output Urine Total 105 ml 70 ml Stool Total 800 ml 1100 ml Laboratory Tests 06/30/19 16:53: Sodium Level 147H 07/01/19 04:30: Sodium Level 146H, White Blood Count 16.3H, Red Blood Count 2.55L, Hemoglobin 8.0L, Hematocrit 26.0L, Mean Corpuscular Volume 102H, Mean Corpuscular Hemoglobin 31.3H, Mean Corpuscular Hemoglobin Concent 30.8L, Red Cell Distribution Width 23.6H, Platelet Count 73L, Mean Platelet Volume 9.7, Neutrophils (%) (Auto) , Lymphocytes (%) (Auto) , Monocytes (%) (Auto) , Eosinophils (%) (Auto) , Basophils (%) (Auto) , Differential Total Cells Counted 100, Neutrophils % (Manual) 81H, Lymphocytes % (Manual) 9L, Monocytes % (Manual) 4, Eosinophils % (Manual) 1, Basophils % (Manual) 0, Band Neutrophils 5 , Platelet Estimate DecreasedL, Platelet Morphology Normal, Hypochromasia 1+, Anisocytosis 2+, Macrocytosis 1+, Potassium Level 3.7, Chloride Level 118H, Carbon Dioxide Level 14L, Anion Gap 15, Blood Urea Nitrogen 64H, Creatinine 4.6# H, Estimat Glomerular Filtration Rate 14.3, Glucose Level 121H, Calcium Level 8.0L Height (Feet): 5 Height (Inches): 9.00 Weight (Pounds): 217 General Appearance: lethargic EENT: normal ENT inspection Neck: normal alignment Cardiovascular: normal peripheral pulses, normal rate, regular rhythm Respiratory/Chest: chest wall non-tender, lungs clear, normal breath sounds Abdomen: normal bowel sounds, non tender, soft Extremities: normal inspection Edema: no edema noted Arm (L), no edema noted Arm (R), no edema noted Leg (L), no edema noted Leg (R), no edema noted Pedal (L), no edema noted Pedal (R), no edema noted Generalized Neurologic: motor weakness Skin: normal pigmentation, warm/dry Deepak Juarez DO Jul 01, 2019 10:48
--- NOTE | 2019-07-01 11:27 | Infectious Diseases Prog Note ---
Assessment/Plan Assessment/Plan IMPRESSION: 1. Sepsis. 2. Systemic inflammatory response syndrome. 3. Tachycardia. 4. Leukocytosis. 5. colitis, 6.Alcoholic pancreatitis, 7.Cirrhosis of liver, 8. Acute renal failure likely hepatorenal syndrome, - getting worse 9.Anemia, 10. thrombocytopenia, 11.hypocalcemia, 12.hypomagnesemia, corrected 13 hypokalemia, corrected 14, Alcohol withdrawal. 15.Metabolic encephalopathy 16. Hypophosphatemia 17. Hypernatremia RECOMMENDATION: continue Rocephin & Flagyl Poor prognosis Subjective ROS Limited/Unobtainable: Yes Constitutional: Reports: fever, other - low grade Genitourinary: Reports: other - anuric Allergies: Coded Allergies: No Known Allergies (Unverified , 06/20/19) Objective Vital Signs Last 24 Hour Vital Signs Date Time Temp Pulse Resp B/P (MAP) Pulse Ox O2 Delivery O2 Flow Rate FiO2 07/01/19 11:00 61 28 94/46 (62) 98 07/01/19 10:00 69 32 98/46 (63) 97 07/01/19 09:00 63 27 97/47 (64) 98 07/01/19 08:00 Nasal Cannula 2.0 07/01/19 08:00 98.0 63 26 95/47 (63) 99 07/01/19 08:00 2.0 07/01/19 08:00 61 07/01/19 07:00 62 28 98/41 (60) 98 07/01/19 06:39 60 25 100 Nasal Cannula 2.0 28 07/01/19 06:39 99 Nasal Cannula 2.0 28 07/01/19 06:00 62 27 99/50 (66) 98 07/01/19 05:00 60 26 95/44 (61) 98 07/01/19 04:00 2.0 07/01/19 04:00 62 07/01/19 04:00 100.0 62 25 89/45 (60) 97 07/01/19 04:00 Nasal Cannula 2.0 07/01/19 03:00 68 32 121/46 (71) 99 07/01/19 02:00 65 28 102/44 (63) 99 07/01/19 01:00 64 27 94/46 (62) 99 07/01/19 00:00 2.0 07/01/19 00:00 Nasal Cannula 2.0 07/01/19 00:00 65 07/01/19 00:00 99.5 66 30 94/73 (80) 99 06/30/19 23:00 67 28 108/69 (82) 100 06/30/19 22:00 65 28 100/36 (57) 100 06/30/19 21:00 62 25 96/46 (63) 100 06/30/19 20:42 2.0 06/30/19 20:00 70 06/30/19 20:00 Nasal Cannula 2.0 06/30/19 20:00 99.9 69 30 105/54 (71) 100 06/30/19 19:00 70 30 93/50 (64) 100 06/30/19 18:38 99 Nasal Cannula 2.0 28 06/30/19 18:38 68 25 99 Nasal Cannula 2.0 28 06/30/19 18:00 68 27 92/40 (57) 100 06/30/19 17:00 69 24 87/43 (58) 98 06/30/19 16:30 66 28 81/47 (58) 98 06/30/19 16:00 63 06/30/19 16:00 99.0 64 25 77/46 (56) 100 06/30/19 16:00 3.0 06/30/19 16:00 Nasal Cannula 3.0 06/30/19 15:00 65 28 98/39 (58) 100 06/30/19 14:53 105/59 06/30/19 14:00 61 24 105/59 (74) 100 06/30/19 13:00 65 28 92/52 (65) 100 06/30/19 12:00 3.0 06/30/19 12:00 66 06/30/19 12:00 98.9 64 27 100/46 (64) 100 06/30/19 12:00 Nasal Cannula 3.0 Height (Feet): 5 Height (Inches): 9.00 Weight (Pounds): 217 HEENT: mucous membranes moist, other - icterus Respiratory/Chest: lungs clear, other Cardiovascular: normal rate Abdomen: distended Extremities: other - generalized edema Neurologic/Psychiatric: unresponsiveness Laboratory Tests Test 06/30/19 16:53 07/01/19 04:30 Sodium Level 147 MMOL/L (136-145) H 146 MMOL/L (136-145) H White Blood Count 16.3 K/UL (4.8-10.8) H Red Blood Count 2.55 M/UL (4.70-6.10) L Hemoglobin 8.0 G/DL (14.2-18.0) L Hematocrit 26.0 % (42.0-52.0) L Mean Corpuscular Volume 102 FL (80-99) H Mean Corpuscular Hemoglobin 31.3 PG (27.0-31.0) H Mean Corpuscular Hemoglobin Concent 30.8 G/DL (32.0-36.0) L Red Cell Distribution Width 23.6 % (11.6-14.8) H Platelet Count 73 K/UL (150-450) L Mean Platelet Volume 9.7 FL (6.5-10.1) Neutrophils (%) (Auto) % (45.0-75.0) Lymphocytes (%) (Auto) % (20.0-45.0) Monocytes (%) (Auto) % (1.0-10.0) Eosinophils (%) (Auto) % (0.0-3.0) Basophils (%) (Auto) % (0.0-2.0) Differential Total Cells Counted 100 Neutrophils % (Manual) 81 % (45-75) H Lymphocytes % (Manual) 9 % (20-45) L Monocytes % (Manual) 4 % (1-10) Eosinophils % (Manual) 1 % (0-3) Basophils % (Manual) 0 % (0-2) Band Neutrophils 5 % (0-8) Platelet Estimate Decreased L Platelet Morphology Normal Hypochromasia 1+ Anisocytosis 2+ Macrocytosis 1+ Potassium Level 3.7 MMOL/L (3.5-5.1) Chloride Level 118 MMOL/L (98-107) H Carbon Dioxide Level 14 MMOL/L (21-32) L Anion Gap 15 mmol/L (5-15) Blood Urea Nitrogen 64 mg/dL (7-18) H Creatinine 4.6 MG/DL (0.55-1.30) #H Estimat Glomerular Filtration Rate 14.3 mL/min (>60) Glucose Level 121 MG/DL (74-106) H Calcium Level 8.0 MG/DL (8.5-10.1) L Current Medications Medications (Trade) Dose Ordered Sig/Gabriela Route PRN Reason Start Time Stop Time Status Last Admin Dose Admin Ceftriaxone Sodium 1 gm/ Dextrose 55 ml @ 110 mls/hr DAILY IVPB 06/27/19 13:00 07/04/19 12:59 07/01/19 08:46 Chlorhexidine Gluconate (Emilie-Hex 2%) 1 applic DAILY@2000 TOPIC 06/26/19 20:00 07/26/19 19:59 06/30/19 20:24 Dextrose 1,000 ml @ 75 mls/hr [id number] IV 07/01/19 09:00 07/25/19 08:59 07/01/19 00:59 Dopamine HCl/ Dextrose 250 ml @ 0 mls/hr Q24H IV 06/30/19 14:53 07/30/19 14:52 Lactulose (Cephulac) 30 gm FOUR TIMES A DAY NG 07/01/19 09:00 07/20/19 12:59 07/01/19 08:46 Metronidazole (Flagyl) 500 mg Q8HR NG 06/27/19 14:00 07/04/19 13:59 07/01/19 06:08 Midodrine (Pro-Amatine) 10 mg EVERY 8 HOURS ORAL 07/01/19 09:00 07/29/19 08:59 07/01/19 09:08 Octreotide Acetate 500 mcg/ Sodium Chloride 500 ml @ 50 mls/hr Q10H IV 07/01/19 09:00 07/31/19 08:59 07/01/19 09:26 Pantoprazole (Protonix) 40 mg EVERY 12 HOURS IVP 06/21/19 21:00 07/20/19 20:59 07/01/19 08:46 Ilia Chakraborty MD Jul 01, 2019 11:27
[2019-07-01] MEDS: DOPamine 400mg/250ml 250 ML IV SCH (14:53)
[2019-07-01] MEDS ORDERED: Tubing IV Secondary IV ONE (16:41)
--- NOTE | 2019-07-01 19:07 | Pulmonolgy Critical Care Note ---
Critical Care - Asmt/Plan Assessment/Plan: Pulmonary CCM Progress HPI This is a 39-year-old male who is an alcoholic with significant fatty liver on abdominal CT and alcoholic hepatitis, DF 16, not candidate for steroids currently per GI. He has been drinking heavily for 3 months straight. 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 Noted to have Hepatic Encephalopathy and Hepatorenal Syndrome. No bleeding. No nausea no vomiting. Nothing made it better. Movement or exertion makes it worse. Noted to have significant hypokalemia and alkalosis, evidence of sepsis, source unclear - some bacteria in urine, mid ascites - possible SBP, dilated Gallbladder On NC O2, on Lactulose, pulled out NGT - reinserted Na improving, renal function worse More awake, remains confused Required IV volume challenges, Midodrine, PRN dopamine to maintain BP Allergies: No Known Allergies Past Medical History: Alcohol abuse All Other Systems: negative except mentioned in HPI Physical Exam Vital Signs Noted General Appearance: Jaundiced, awake Head: normocephalic, atraumatic Eyes: bilateral eye PERRL, bilateral eye EOMI, bilateral eye scleral icterus ENT: moist mm Neck: no masses, no LN Respiratory: chest non-tender, lungs clear, normal breath sounds Cardiovascular: regular rate, rhythm, Normal HS1, HS2, no murmur, tachycardia Gastrointestinal: Obese, hepatomegaly, some tenderness RUQ, normal bowel sounds , no mass, no rebound Musculoskeletal: moves all limbs Neurologic: responds to commands, awake Skin: jaundiced, moderate edema Impression: Acute alcoholic intoxication Severe Sepsis Alcoholic Hepatitis Possible Cirrhosis Metabolic and respiratory alkalosis Possible Portal Hypertension Hepatorenal syndrome - worsening renal function Hypernatremia Pancreatitis, alcoholic, acute Anemia Monitor CXR/ABG Plan ICU management NPO except meds IV antibiotics per ID Aspiration precautions GI/Renal following IVF per Nephrology Pressors PRN Intubate PRN for airway protection Transfuse PRN Thiamine Monitor labs K supplementation Adjust FIO2 - sats 90-96% Labs: noted EKG: Rate: tachycardiac Rhythm: NSR ST Segments: other - NSST changes Chest X-Ray: hypoventilatory exam, no consolidation, no effusion, no pneumothorax, no acute cardiopulmonary disease CT abdomen pelvis: Severely enlarged liver and fatty liver. Mild ascites. Critical Care - Objective Last 24 Hour Vital Signs Date Time Temp Pulse Resp B/P (MAP) Pulse Ox O2 Delivery O2 Flow Rate FiO2 07/01/19 18:00 70 28 95/44 (61) 98 07/01/19 17:00 70 27 102/47 (65) 98 07/01/19 16:00 68 07/01/19 16:00 97.8 69 27 90/52 (65) 98 07/01/19 16:00 Nasal Cannula 2.0 07/01/19 16:00 2.0 07/01/19 15:00 69 28 106/50 (68) 98 07/01/19 14:00 70 28 97/43 (61) 98 07/01/19 13:00 67 28 97/41 (59) 98 07/01/19 12:00 98.6 66 27 109/51 (70) 99 07/01/19 12:00 74 07/01/19 12:00 Nasal Cannula 2.0 07/01/19 12:00 2.0 07/01/19 11:00 61 28 94/46 (62) 98 07/01/19 10:00 69 32 98/46 (63) 97 07/01/19 09:00 63 27 97/47 (64) 98 07/01/19 08:00 Nasal Cannula 2.0 07/01/19 08:00 98.0 63 26 95/47 (63) 99 07/01/19 08:00 2.0 07/01/19 08:00 61 07/01/19 07:00 62 28 98/41 (60) 98 07/01/19 06:39 60 25 100 Nasal Cannula 2.0 28 07/01/19 06:39 99 Nasal Cannula 2.0 28 07/01/19 06:00 62 27 99/50 (66) 98 07/01/19 05:00 60 26 95/44 (61) 98 07/01/19 04:00 2.0 07/01/19 04:00 62 07/01/19 04:00 100.0 62 25 89/45 (60) 97 07/01/19 04:00 Nasal Cannula 2.0 07/01/19 03:00 68 32 121/46 (71) 99 07/01/19 02:00 65 28 102/44 (63) 99 07/01/19 01:00 64 27 94/46 (62) 99 07/01/19 00:00 2.0 07/01/19 00:00 Nasal Cannula 2.0 07/01/19 00:00 65 07/01/19 00:00 99.5 66 30 94/73 (80) 99 06/30/19 23:00 67 28 108/69 (82) 100 06/30/19 22:00 65 28 100/36 (57) 100 06/30/19 21:00 62 25 96/46 (63) 100 06/30/19 20:42 2.0 06/30/19 20:00 70 06/30/19 20:00 Nasal Cannula 2.0 06/30/19 20:00 99.9 69 30 105/54 (71) 100 Critical Care - Subjective ROS Limited/Unobtainable: No FI02: 28 Sputum Amount: None Tube Feeding Amount: 45 I&O: Intake and Output 06/30/19 07/01/19 18:59 06:59 Intake Total 3138.75 ml 1865 ml Output Total 910 ml 1170 ml Balance 2228.75 ml 695 ml Free Water 170 ml 200 ml IV Total 1928.75 ml 1125 ml Tube Feeding 540 ml 540 ml Blood Product 500 ml Output Urine Total 110 ml 70 ml Stool Total 800 ml 1100 ml Quang Domingo MD Jul 01, 2019 19:07
--- NOTE | 2019-07-01 19:27 | Cardiac Electrophysiology PN ---
Assessment/Plan Assessment/Plan 1. Sinus tach due to alcohol withdrawal and hepatic encephalopathy. No SVT or atrial fibrillation. EF 55% 2. Cirrhosis. On Lactulose and albumin S/P paracentesis 3. Hypotension BP 80 better after albumin. S/P PICC line in case needs pressors 4. Hepatorenal syndrome. Creatinine is 4. Fu . 5. Hypokalemia. 6. Alcohol intoxication. Thiamine, folate, and Librium. 7. Hepatic encephalopathy DW RN Subjective Subjective in ICU in restraints and lethargic. BP and HR betted but very low urine output. No arrhythmias and off pressors Objective Last 24 Hour Vital Signs Date Time Temp Pulse Resp B/P (MAP) Pulse Ox O2 Delivery O2 Flow Rate FiO2 07/01/19 19:00 84 23 102/72 (82) 95 07/01/19 18:00 70 28 95/44 (61) 98 07/01/19 17:00 70 27 102/47 (65) 98 07/01/19 16:00 68 07/01/19 16:00 97.8 69 27 90/52 (65) 98 07/01/19 16:00 Nasal Cannula 2.0 07/01/19 16:00 2.0 07/01/19 15:00 69 28 106/50 (68) 98 07/01/19 14:00 70 28 97/43 (61) 98 07/01/19 13:00 67 28 97/41 (59) 98 07/01/19 12:00 98.6 66 27 109/51 (70) 99 07/01/19 12:00 74 07/01/19 12:00 Nasal Cannula 2.0 07/01/19 12:00 2.0 07/01/19 11:00 61 28 94/46 (62) 98 07/01/19 10:00 69 32 98/46 (63) 97 07/01/19 09:00 63 27 97/47 (64) 98 07/01/19 08:00 Nasal Cannula 2.0 07/01/19 08:00 98.0 63 26 95/47 (63) 99 07/01/19 08:00 2.0 07/01/19 08:00 61 07/01/19 07:00 62 28 98/41 (60) 98 07/01/19 06:39 60 25 100 Nasal Cannula 2.0 28 07/01/19 06:39 99 Nasal Cannula 2.0 28 07/01/19 06:00 62 27 99/50 (66) 98 07/01/19 05:00 60 26 95/44 (61) 98 07/01/19 04:00 2.0 07/01/19 04:00 62 07/01/19 04:00 100.0 62 25 89/45 (60) 97 07/01/19 04:00 Nasal Cannula 2.0 07/01/19 03:00 68 32 121/46 (71) 99 07/01/19 02:00 65 28 102/44 (63) 99 07/01/19 01:00 64 27 94/46 (62) 99 07/01/19 00:00 2.0 07/01/19 00:00 Nasal Cannula 2.0 07/01/19 00:00 65 07/01/19 00:00 99.5 66 30 94/73 (80) 99 06/30/19 23:00 67 28 108/69 (82) 100 06/30/19 22:00 65 28 100/36 (57) 100 06/30/19 21:00 62 25 96/46 (63) 100 06/30/19 20:42 2.0 06/30/19 20:00 70 06/30/19 20:00 Nasal Cannula 2.0 06/30/19 20:00 99.9 69 30 105/54 (71) 100 Intake and Output 06/30/19 07/01/19 18:59 06:59 Intake Total 3138.75 ml 1865 ml Output Total 910 ml 1170 ml Balance 2228.75 ml 695 ml Free Water 170 ml 200 ml IV Total 1928.75 ml 1125 ml Tube Feeding 540 ml 540 ml Blood Product 500 ml Output Urine Total 110 ml 70 ml Stool Total 800 ml 1100 ml Laboratory Tests Test 07/01/19 04:30 White Blood Count 16.3 K/UL (4.8-10.8) H Red Blood Count 2.55 M/UL (4.70-6.10) L Hemoglobin 8.0 G/DL (14.2-18.0) L Hematocrit 26.0 % (42.0-52.0) L Mean Corpuscular Volume 102 FL (80-99) H Mean Corpuscular Hemoglobin 31.3 PG (27.0-31.0) H Mean Corpuscular Hemoglobin Concent 30.8 G/DL (32.0-36.0) L Red Cell Distribution Width 23.6 % (11.6-14.8) H Platelet Count 73 K/UL (150-450) L Mean Platelet Volume 9.7 FL (6.5-10.1) Neutrophils (%) (Auto) % (45.0-75.0) Lymphocytes (%) (Auto) % (20.0-45.0) Monocytes (%) (Auto) % (1.0-10.0) Eosinophils (%) (Auto) % (0.0-3.0) Basophils (%) (Auto) % (0.0-2.0) Differential Total Cells Counted 100 Neutrophils % (Manual) 81 % (45-75) H Lymphocytes % (Manual) 9 % (20-45) L Monocytes % (Manual) 4 % (1-10) Eosinophils % (Manual) 1 % (0-3) Basophils % (Manual) 0 % (0-2) Band Neutrophils 5 % (0-8) Platelet Estimate Decreased L Platelet Morphology Normal Hypochromasia 1+ Anisocytosis 2+ Macrocytosis 1+ Sodium Level 146 MMOL/L (136-145) H Potassium Level 3.7 MMOL/L (3.5-5.1) Chloride Level 118 MMOL/L (98-107) H Carbon Dioxide Level 14 MMOL/L (21-32) L Anion Gap 15 mmol/L (5-15) Blood Urea Nitrogen 64 mg/dL (7-18) H Creatinine 4.6 MG/DL (0.55-1.30) #H Estimat Glomerular Filtration Rate 14.3 mL/min (>60) Glucose Level 121 MG/DL (74-106) H Calcium Level 8.0 MG/DL (8.5-10.1) L Objective HEAD AND NECK: No JVD. Sclera is icteric LUNGS: Decreased breath sounds. CARDIOVASCULAR: TachyS1 and S2 with no gallop. ABDOMEN: Distended with ascites. EXTREMITIES: 2+ pitting edema. Felice Smith MD Jul 01, 2019 19:27
[2019-07-01] MEDS: Dyna-Hex 2% Top Sol 2oz TOPIC SCH (20:56)
[2019-07-02] VITALS (24 sets, daily range): BP systolic 89–134; BP diastolic 42–96
[2019-07-02 04:48] LABS: HEMOGLOBIN 7.3 G/DL (14.2-18.0); MEAN CORPUSCULAR VOLUME 101 FL (80-99); PLATELET COUNT 109 K/UL (150-450); RED BLOOD COUNT 2.27 M/UL (4.70-6.10); RED CELL DISTRIBUTION WIDTH 24.2 % (11.6-14.8); WHITE BLOOD COUNT 17.8 K/UL (4.8-10.8)
[2019-07-02 05:00] LABS: INR 1.7 (0.9-1.1)
[2019-07-02] MEDS: Octreotide Acetate 500 MCG in Sodium Chloride 499 ML IV SCH ×2 (05:00→14:58)
[2019-07-02] MEDS: Midodrine 10mg tab ORAL SCH ×3 (05:00→21:54)
[2019-07-02] MEDS: metroNIDAZOLE 500mg tab NG SCH ×3 (05:01→21:54)
[2019-07-02 05:13] LABS: AMMONIA 73 umol/L (11-32)
[2019-07-02 05:38] LABS: ALANINE AMINOTRANSFERASE 19 U/L (12-78); ALBUMIN 1.7 G/DL (3.4-5.0); ALBUMIN/GLOBULIN RATIO 0.5 (1.0-2.7); ALKALINE PHOSPHATASE 226 U/L (46-116); ANION GAP 16 mmol/L (5-15); ASPARTATE AMINO TRANSFERASE 102 U/L (15-37); BILIRUBIN,TOTAL 33.5 MG/DL (0.2-1.0); BLOOD UREA NITROGEN 72 mg/dL (7-18); CALCIUM 7.6 MG/DL (8.5-10.1); CARBON DIOXIDE 12 MMOL/L (21-32); CHLORIDE 117 MMOL/L (98-107); CREATININE 6.1 MG/DL (0.55-1.30); POTASSIUM 3.7 MMOL/L (3.5-5.1); SODIUM 145 MMOL/L (136-145)
[2019-07-02 05:44] LABS: BILIRUBIN,DIRECT 28.3 MG/DL (0.0-0.3)
[2019-07-02] MEDS: Pantoprazole Inj IVP SCH ×2 (07:57→20:27)
[2019-07-02] MEDS: Lactulose 20gm/30ml UDC NG SCH ×4 (07:57→20:27)
[2019-07-02] MEDS: cefTRIAXone 1 GM in D5W 55 ML IVPB SCH (08:05)
[2019-07-02 08:07] LABS: PHOSPHORUS 5.7 MG/DL (2.5-4.9)
--- NOTE | 2019-07-02 08:50 | Cardiology Report ---
APPROVED REPORT EXAM: Two-dimensional and M-mode echocardiogram with Doppler and color Doppler. INDICATION Congestive Heart Failure M-Mode DIMENSIONS IVSd1.1 (0.7-1.1cm)Left Atrium (MM)3.4 (1.6-4.0cm) LVDd5.6 (3.5-5.6cm)Aortic Root3.1 (2.0-3.7cm) PWd1.1 (0.7-1.1cm)Aortic Cusp Exc.2.0 (1.5-2.0cm) LVDs3.7 (2.5-4.0cm) PWs1.5 cm Normal left ventricular chamber size, systolic function and wall motion. Left ventricular ejection fraction estimated to be 60-65%. No left ventricular hypertrophy. No evidence of pericardial effusion. All other cardiac chamber sizes are within normal limits. Focal aortic valve sclerosis with adequate cusp excursion. Thickened mitral valve leaflets with normal excursion. Mitral annulus and aortic root calcification. Pulmonic valve not well visualized. Normal tricuspid valve structure. IVC at normal size without physiologic collapse. A color flow and spectral Doppler study was performed and revealed: No aortic regurgitation. Trace mitral regurgitation. Mitral diastolic velocities suggest normal diastolic function. Trace tricuspid regurgitation. Tricuspid systolic velocities suggests peak right ventricular systolic pressure of 28mmHg.
[2019-07-02] MEDS ORDERED: Lidocaine 1% 10mg/ml/Epi 0.005mg/ml 10ml vial INJ PRN (09:15)
[2019-07-02] MEDS ORDERED: Heparin1,000 units/500ml Premix(Conc:2 units/ml) IV PRN (09:15)
--- NOTE | 2019-07-02 09:36 | Nephrology Progress Note ---
Assessment/Plan Problem List: (1) End-stage liver disease (2) Hepatorenal syndrome (3) Pancreatitis, alcoholic, acute (4) Acute alcoholic intoxication (5) Anemia (6) Respiratory failure (7) Hypernatremia Assessment Acute alcoholic intoxication End-stage liver disease Hepatorenal syndrome Pancreatitis, alcoholic, acute Anemia Plan since still full code- will attempt dialysis DC IV D5w on 06/28/19 met with Brother- Lilianara zonia Reyes [employer] Brother will discuss with family regarding DNR and comfort care K and Mag and phos supplement as needed has keith has RT (rectal tube) increase lactulose change IV to D5w 150 cc / h aim to change Zosyn and or decrease the dose discussed with RN Correct lytes IV protonix lactulose Folate and Thiamin per GI transfuse per consultants Subjective ROS Limited/Unobtainable: No Constitutional: Reports: malaise, weakness Objective Objective Last 24 Hour Vital Signs Date Time Temp Pulse Resp B/P (MAP) Pulse Ox O2 Delivery O2 Flow Rate FiO2 07/02/19 08:00 2.0 07/02/19 08:00 98.1 66 22 114/51 (72) 97 07/02/19 08:00 Nasal Cannula 2.0 07/02/19 07:26 95 Nasal Cannula 2.0 28 07/02/19 07:26 70 20 95 Nasal Cannula 2.0 28 07/02/19 07:00 70 24 113/46 (68) 95 07/02/19 06:00 67 28 101/55 (70) 96 07/02/19 05:00 63 21 91/42 (58) 97 07/02/19 04:00 2.0 07/02/19 04:00 Nasal Cannula 2.0 07/02/19 04:00 63 07/02/19 04:00 99.6 68 30 109/55 (73) 97 07/02/19 03:00 67 28 89/47 (61) 96 07/02/19 02:00 70 27 104/51 (68) 97 07/02/19 01:00 81 23 96/53 (67) 97 07/02/19 00:00 99.1 66 27 100/52 (68) 99 07/02/19 00:00 67 07/02/19 00:00 2.0 07/02/19 00:00 Nasal Cannula 2.0 07/01/19 23:00 67 24 89/55 (66) 99 07/01/19 22:00 71 26 96/49 (65) 98 07/01/19 21:00 75 31 92/47 (62) 96 07/01/19 20:00 75 07/01/19 20:00 Nasal Cannula 2.0 07/01/19 20:00 98.9 78 24 111/41 (64) 98 07/01/19 20:00 2.0 07/01/19 19:05 82 23 96 Nasal Cannula 2.0 28 07/01/19 19:05 96 Nasal Cannula 2.0 28 07/01/19 19:00 84 23 102/72 (82) 95 07/01/19 18:00 70 28 95/44 (61) 98 07/01/19 17:00 70 27 102/47 (65) 98 07/01/19 16:00 68 07/01/19 16:00 97.8 69 27 90/52 (65) 98 07/01/19 16:00 Nasal Cannula 2.0 07/01/19 16:00 2.0 07/01/19 15:00 69 28 106/50 (68) 98 07/01/19 14:00 70 28 97/43 (61) 98 07/01/19 13:00 67 28 97/41 (59) 98 07/01/19 12:00 98.6 66 27 109/51 (70) 99 07/01/19 12:00 74 07/01/19 12:00 Nasal Cannula 2.0 07/01/19 12:00 2.0 07/01/19 11:00 61 28 94/46 (62) 98 07/01/19 10:00 69 32 98/46 (63) 97 Intake and Output 07/01/19 07/02/19 19:00 07:00 Intake Total 2250 ml 2190 ml Output Total 660 ml 30 ml Balance 1590 ml 2160 ml Free Water 100 ml 200 ml IV Total 1610 ml 1450 ml Tube Feeding 540 ml 540 ml Output Urine Total 60 ml 30 ml Stool Total 600 ml Laboratory Tests 07/02/19 04:00: White Blood Count 17.8H, Red Blood Count 2.27L, Hemoglobin 7.3L, Hematocrit 23.0L, Mean Corpuscular Volume 101H, Mean Corpuscular Hemoglobin 32.1H, Mean Corpuscular Hemoglobin Concent 31.7L, Red Cell Distribution Width 24.2H, Platelet Count 109L, Mean Platelet Volume 10.2H, Neutrophils (%) (Auto) , Lymphocytes (%) (Auto) , Monocytes (%) (Auto) , Eosinophils (%) (Auto) , Basophils (%) (Auto) , Neutrophils % (Manual) [Pending], Lymphocytes % (Manual) [Pending], Platelet Estimate [Pending], Platelet Morphology [Pending], Prothrombin Time 17.8H, Prothromb Time International Ratio 1.7H, Sodium Level 145, Potassium Level 3.7, Chloride Level 117H, Carbon Dioxide Level 12L, Anion Gap 16H, Blood Urea Nitrogen 72H, Creatinine 6.1H, Estimat Glomerular Filtration Rate 10.3, Glucose Level 138H, Calcium Level 7.6L, Phosphorus Level 5.7H, Magnesium Level 2.1, Total Bilirubin 33.5H, Direct Bilirubin 28.3H, Aspartate Amino Transf (AST/SGOT) 102H, Alanine Aminotransferase (ALT/SGPT) 19, Alkaline Phosphatase 226H, Ammonia 73H, Total Protein 5.0L, Albumin 1.7L, Globulin 3.3, Albumin/Globulin Ratio 0.5L 07/02/19 08:20: Arterial Blood pH 7.157*L, Arterial Blood Partial Pressure CO2 28.2L, Arterial Blood Partial Pressure O2 85.4, Arterial Blood HCO3 9.8*L, Arterial Blood Oxygen Saturation 94.0L, Arterial Blood Base Excess -17.5*L, Dave Test Positive Height (Feet): 5 Height (Inches): 9.00 Weight (Pounds): 217 General Appearance: lethargic EENT: other - jaundiced Cardiovascular: normal rate Respiratory/Chest: decreased breath sounds Abdomen: distended Extremities: severe edema Arthur Lay MD Jul 02, 2019 09:36
[2019-07-02] MEDS ORDERED: Lidocaine 1% Plain 30 ml INJ PRN (10:00)
[2019-07-02] MEDS ORDERED: Phytonadione 10 MG in D5W 55 ML IVPB ONE (10:30)
--- NOTE | 2019-07-02 11:06 | Diagnostic Imaging Report ---
Indication: Acute renal failure Technique: Procedure performed at bedside. Procedural timeout performed. Total sterile technique, including sterile probe cover and sterile gel, sterile gloves, hand hygiene, hat, mask, sterile gown, large sterile drape, and preparation with 2% chlorhexidine utilized. Local anesthesia with 1% lidocaine. Under real-time ultrasound guidance, puncture right internal jugular vein using 21-gauge micropuncture needle, passage 0.018 guidewire, insertion 4 [place] micropuncture introducer, passage 0.035 guidewire, over which was passed serial dilators and then a 13 [place] 15 cm triple-lumen temporary dialysis catheter. Guidewire was removed. Catheter ports were aspirated and flushed. The catheter was fixed to the skin. Patient tolerated procedure well. A chest x-ray was obtained, documents catheter tip position at the cavoatrial junction. Comparison: Findings: As above Impression: Successful bedside placement of right transjugular temporary dialysis catheter, as described.
--- NOTE | 2019-07-02 12:07 | Cardiac Electrophysiology PN ---
Assessment/Plan Assessment/Plan 1. Sinus tach due to alcohol withdrawal and hepatic encephalopathy. No SVT or atrial fibrillation. EF 55% 2. Cirrhosis. On Lactulose and albumin S/P paracentesis 3. Hypotension BP 80 better after albumin and on Midodrine 10 q 8 hr S/P PICC line in case needs pressors 4. Hepatorenal syndrome. Creatinine is 6. Fu . S/P Carrillo Catheter and will be getting HD today 5. Hypokalemia. 6. Alcohol intoxication. Thiamine, folate, and Librium. 7. Hepatic encephalopathy DW RN Subjective Subjective In ICU in restraints and lethargic No arrhythmias and off pressors. No urine out put now. Just Got Right IJ Carrillo and will be getting HD today Objective Last 24 Hour Vital Signs Date Time Temp Pulse Resp B/P (MAP) Pulse Ox O2 Delivery O2 Flow Rate FiO2 07/02/19 11:00 76 26 101/47 (65) 96 07/02/19 10:00 77 21 130/61 (84) 97 07/02/19 09:00 83 20 134/58 (83) 98 07/02/19 08:00 2.0 07/02/19 08:00 98.1 66 22 114/51 (72) 97 07/02/19 08:00 Nasal Cannula 2.0 07/02/19 08:00 67 07/02/19 07:26 95 Nasal Cannula 2.0 28 07/02/19 07:26 70 20 95 Nasal Cannula 2.0 28 07/02/19 07:00 70 24 113/46 (68) 95 07/02/19 06:00 67 28 101/55 (70) 96 07/02/19 05:00 63 21 91/42 (58) 97 07/02/19 04:00 2.0 07/02/19 04:00 Nasal Cannula 2.0 07/02/19 04:00 63 07/02/19 04:00 99.6 68 30 109/55 (73) 97 07/02/19 03:00 67 28 89/47 (61) 96 07/02/19 02:00 70 27 104/51 (68) 97 07/02/19 01:00 81 23 96/53 (67) 97 07/02/19 00:00 99.1 66 27 100/52 (68) 99 07/02/19 00:00 67 9/9/19 00:00 2.0 07/02/19 00:00 Nasal Cannula 2.0 07/01/19 23:00 67 24 89/55 (66) 99 07/01/19 22:00 71 26 96/49 (65) 98 07/01/19 21:00 75 31 92/47 (62) 96 07/01/19 20:00 75 07/01/19 20:00 Nasal Cannula 2.0 07/01/19 20:00 98.9 78 24 111/41 (64) 98 07/01/19 20:00 2.0 07/01/19 19:05 82 23 96 Nasal Cannula 2.0 28 07/01/19 19:05 96 Nasal Cannula 2.0 28 07/01/19 19:00 84 23 102/72 (82) 95 07/01/19 18:00 70 28 95/44 (61) 98 07/01/19 17:00 70 27 102/47 (65) 98 07/01/19 16:00 68 07/01/19 16:00 97.8 69 27 90/52 (65) 98 07/01/19 16:00 Nasal Cannula 2.0 07/01/19 16:00 2.0 07/01/19 15:00 69 28 106/50 (68) 98 07/01/19 14:00 70 28 97/43 (61) 98 07/01/19 13:00 67 28 97/41 (59) 98 Intake and Output 07/01/19 07/02/19 19:00 07:00 Intake Total 2250 ml 2190 ml Output Total 660 ml 30 ml Balance 1590 ml 2160 ml Free Water 100 ml 200 ml IV Total 1610 ml 1450 ml Tube Feeding 540 ml 540 ml Output Urine Total 60 ml 30 ml Stool Total 600 ml Laboratory Tests Test 07/02/19 04:00 07/02/19 08:20 07/02/19 09:00 White Blood Count 17.8 K/UL (4.8-10.8) H Red Blood Count 2.27 M/UL (4.70-6.10) L Hemoglobin 7.3 G/DL (14.2-18.0) L Hematocrit 23.0 % (42.0-52.0) L Mean Corpuscular Volume 101 FL (80-99) H Mean Corpuscular Hemoglobin 32.1 PG (27.0-31.0) H Mean Corpuscular Hemoglobin Concent 31.7 G/DL (32.0-36.0) L Red Cell Distribution Width 24.2 % (11.6-14.8) H Platelet Count 109 K/UL (150-450) L Mean Platelet Volume 10.2 FL (6.5-10.1) H Neutrophils (%) (Auto) % (45.0-75.0) Lymphocytes (%) (Auto) % (20.0-45.0) Monocytes (%) (Auto) % (1.0-10.0) Eosinophils (%) (Auto) % (0.0-3.0) Basophils (%) (Auto) % (0.0-2.0) Differential Total Cells Counted 100 Neutrophils % (Manual) 73 % (45-75) Lymphocytes % (Manual) 9 % (20-45) L Monocytes % (Manual) 6 % (1-10) Eosinophils % (Manual) 3 % (0-3) Basophils % (Manual) 1 % (0-2) Myelocytes % 2 % (0-0) H Band Neutrophils 6 % (0-8) Nucleated Red Blood Cells 1 /100 WBC Platelet Estimate Decreased L Platelet Morphology Normal Polychromasia 1+ Hypochromasia 2+ Anisocytosis 3+ Macrocytosis 2+ Ovalocytes Occasional [place] Cells 1+ Prothrombin Time 17.8 SEC (9.30-11.50) H Prothromb Time International Ratio 1.7 (0.9-1.1) H Sodium Level 145 MMOL/L (136-145) Potassium Level 3.7 MMOL/L (3.5-5.1) Chloride Level 117 MMOL/L (98-107) H Carbon Dioxide Level 12 MMOL/L (21-32) L Anion Gap 16 mmol/L (5-15) H Blood Urea Nitrogen 72 mg/dL (7-18) H Creatinine 6.1 MG/DL (0.55-1.30) H Estimat Glomerular Filtration Rate 10.3 mL/min (>60) Glucose Level 138 MG/DL (74-106) H Calcium Level 7.6 MG/DL (8.5-10.1) L Phosphorus Level 5.7 MG/DL (2.5-4.9) H Magnesium Level 2.1 MG/DL (1.8-2.4) Total Bilirubin 33.5 MG/DL (0.2-1.0) H Direct Bilirubin 28.3 MG/DL (0.0-0.3) H Aspartate Amino Transf (AST/SGOT) 102 U/L (15-37) H Alanine Aminotransferase (ALT/SGPT) 19 U/L (12-78) Alkaline Phosphatase 226 U/L (46-116) H Ammonia 73 umol/L (11-32) H Total Protein 5.0 G/DL (6.4-8.2) L Albumin 1.7 G/DL (3.4-5.0) L Globulin 3.3 g/dL Albumin/Globulin Ratio 0.5 (1.0-2.7) L Arterial Blood pH 7.157 (7.350-7.450) Arterial Blood Partial Pressure CO2 28.2 mmHg (35.0-45.0) L Arterial Blood Partial Pressure O2 85.4 mmHg (75.0-100.0) Arterial Blood HCO3 9.8 mmol/L (22.0-26.0) *L Arterial Blood Oxygen Saturation 94.0 % (95-100) L Arterial Blood Base Excess -17.5 (-2-2) *L Dave Test Positive Activated Partial Thromboplast Time 38 SEC (23-33) H Objective HEAD AND NECK: No JVD. Sclera is icteric. R IJ Perm Cath LUNGS: Decreased breath sounds. CARDIOVASCULAR: TachyS1 and S2 with no gallop. ABDOMEN: Distended with ascites. EXTREMITIES: 2+ pitting edema. Felice Smith MD Jul 02, 2019 12:07
--- NOTE | 2019-07-02 12:20 | Infectious Diseases Prog Note ---
Assessment/Plan Assessment/Plan IMPRESSION: 1. Sepsis. 2. Systemic inflammatory response syndrome. 3. Tachycardia. 4. Leukocytosis. 5. colitis, 6.Alcoholic pancreatitis, 7.Cirrhosis of liver, 8. Acute renal failure likely hepatorenal syndrome, - ESRD 9.Anemia, 10. thrombocytopenia, 11.hypocalcemia, 12.hypomagnesemia, corrected 13 hypokalemia, corrected 14, Alcohol withdrawal. 15.Metabolic encephalopathy 16. Hypophosphatemia 17. Hypernatremia RECOMMENDATION: continue Rocephin & Flagyl Will have HD today Poor prognosis Subjective ROS Limited/Unobtainable: Yes Cardiovascular: Reports: other - Misa'S CATHETER PLACED Genitourinary: Reports: other - anuric Neurologic: Reports: confusion, other - on restraint Allergies: Coded Allergies: No Known Allergies (Unverified , 06/20/19) Objective Vital Signs Last 24 Hour Vital Signs Date Time Temp Pulse Resp B/P (MAP) Pulse Ox O2 Delivery O2 Flow Rate FiO2 07/02/19 11:00 76 26 101/47 (65) 96 07/02/19 10:00 77 21 130/61 (84) 97 07/02/19 09:00 83 20 134/58 (83) 98 07/02/19 08:00 2.0 07/02/19 08:00 98.1 66 22 114/51 (72) 97 07/02/19 08:00 Nasal Cannula 2.0 07/02/19 08:00 67 07/02/19 07:26 95 Nasal Cannula 2.0 28 07/02/19 07:26 70 20 95 Nasal Cannula 2.0 28 07/02/19 07:00 70 24 113/46 (68) 95 07/02/19 06:00 67 28 101/55 (70) 96 07/02/19 05:00 63 21 91/42 (58) 97 07/02/19 04:00 2.0 07/02/19 04:00 Nasal Cannula 2.0 07/02/19 04:00 63 07/02/19 04:00 99.6 68 30 109/55 (73) 97 07/02/19 03:00 67 28 89/47 (61) 96 07/02/19 02:00 70 27 104/51 (68) 97 07/02/19 01:00 81 23 96/53 (67) 97 07/02/19 00:00 99.1 66 27 100/52 (68) 99 07/02/19 00:00 67 07/02/19 00:00 2.0 07/02/19 00:00 Nasal Cannula 2.0 07/01/19 23:00 67 24 89/55 (66) 99 07/01/19 22:00 71 26 96/49 (65) 98 07/01/19 21:00 75 31 92/47 (62) 96 07/01/19 20:00 75 07/01/19 20:00 Nasal Cannula 2.0 07/01/19 20:00 98.9 78 24 111/41 (64) 98 07/01/19 20:00 2.0 07/01/19 19:05 82 23 96 Nasal Cannula 2.0 28 07/01/19 19:05 96 Nasal Cannula 2.0 28 07/01/19 19:00 84 23 102/72 (82) 95 07/01/19 18:00 70 28 95/44 (61) 98 07/01/19 17:00 70 27 102/47 (65) 98 07/01/19 16:00 68 07/01/19 16:00 97.8 69 27 90/52 (65) 98 07/01/19 16:00 Nasal Cannula 2.0 07/01/19 16:00 2.0 07/01/19 15:00 69 28 106/50 (68) 98 07/01/19 14:00 70 28 97/43 (61) 98 07/01/19 13:00 67 28 97/41 (59) 98 Height (Feet): 5 Height (Inches): 9.00 Weight (Pounds): 217 HEENT: mucous membranes moist, other - icterus Cardiovascular: normal rate, other - RIJ Misa's catheter & Left arm PICC line Abdomen: soft, non tender, other - NG tube Extremities: other - generalized edema Neurologic/Psychiatric: unresponsiveness, other - lethargic Laboratory Tests Test 07/02/19 04:00 07/02/19 08:20 07/02/19 09:00 White Blood Count 17.8 K/UL (4.8-10.8) H Red Blood Count 2.27 M/UL (4.70-6.10) L Hemoglobin 7.3 G/DL (14.2-18.0) L Hematocrit 23.0 % (42.0-52.0) L Mean Corpuscular Volume 101 FL (80-99) H Mean Corpuscular Hemoglobin 32.1 PG (27.0-31.0) H Mean Corpuscular Hemoglobin Concent 31.7 G/DL (32.0-36.0) L Red Cell Distribution Width 24.2 % (11.6-14.8) H Platelet Count 109 K/UL (150-450) L Mean Platelet Volume 10.2 FL (6.5-10.1) H Neutrophils (%) (Auto) % (45.0-75.0) Lymphocytes (%) (Auto) % (20.0-45.0) Monocytes (%) (Auto) % (1.0-10.0) Eosinophils (%) (Auto) % (0.0-3.0) Basophils (%) (Auto) % (0.0-2.0) Differential Total Cells Counted 100 Neutrophils % (Manual) 73 % (45-75) Lymphocytes % (Manual) 9 % (20-45) L Monocytes % (Manual) 6 % (1-10) Eosinophils % (Manual) 3 % (0-3) Basophils % (Manual) 1 % (0-2) Myelocytes % 2 % (0-0) H Band Neutrophils 6 % (0-8) Nucleated Red Blood Cells 1 /100 WBC Platelet Estimate Decreased L Platelet Morphology Normal Polychromasia 1+ Hypochromasia 2+ Anisocytosis 3+ Macrocytosis 2+ Ovalocytes Occasional [place] Cells 1+ Prothrombin Time 17.8 SEC (9.30-11.50) H Prothromb Time International Ratio 1.7 (0.9-1.1) H Sodium Level 145 MMOL/L (136-145) Potassium Level 3.7 MMOL/L (3.5-5.1) Chloride Level 117 MMOL/L (98-107) H Carbon Dioxide Level 12 MMOL/L (21-32) L Anion Gap 16 mmol/L (5-15) H Blood Urea Nitrogen 72 mg/dL (7-18) H Creatinine 6.1 MG/DL (0.55-1.30) H Estimat Glomerular Filtration Rate 10.3 mL/min (>60) Glucose Level 138 MG/DL (74-106) H Calcium Level 7.6 MG/DL (8.5-10.1) L Phosphorus Level 5.7 MG/DL (2.5-4.9) H Magnesium Level 2.1 MG/DL (1.8-2.4) Total Bilirubin 33.5 MG/DL (0.2-1.0) H Direct Bilirubin 28.3 MG/DL (0.0-0.3) H Aspartate Amino Transf (AST/SGOT) 102 U/L (15-37) H Alanine Aminotransferase (ALT/SGPT) 19 U/L (12-78) Alkaline Phosphatase 226 U/L (46-116) H Ammonia 73 umol/L (11-32) H Total Protein 5.0 G/DL (6.4-8.2) L Albumin 1.7 G/DL (3.4-5.0) L Globulin 3.3 g/dL Albumin/Globulin Ratio 0.5 (1.0-2.7) L Arterial Blood pH 7.157 (7.350-7.450) Arterial Blood Partial Pressure CO2 28.2 mmHg (35.0-45.0) L Arterial Blood Partial Pressure O2 85.4 mmHg (75.0-100.0) Arterial Blood HCO3 9.8 mmol/L (22.0-26.0) *L Arterial Blood Oxygen Saturation 94.0 % (95-100) L Arterial Blood Base Excess -17.5 (-2-2) *L Dave Test Positive Activated Partial Thromboplast Time 38 SEC (23-33) H Current Medications Medications (Trade) Dose Ordered Sig/Gabriela Route PRN Reason Start Time Stop Time Status Last Admin Dose Admin Ceftriaxone Sodium 1 gm/ Dextrose 55 ml @ 110 mls/hr DAILY IVPB 06/27/19 13:00 07/04/19 12:59 07/02/19 08:05 Chlorhexidine Gluconate (Emilie-Hex 2%) 1 applic DAILY@2000 TOPIC 06/26/19 20:00 07/26/19 19:59 07/01/19 20:56 Dopamine HCl/ Dextrose 250 ml @ 0 mls/hr Q24H IV 06/30/19 14:53 07/30/19 14:52 Epoetin Michael (Epoetin Michael(ESRD on dialysis)) 2,000 unit TUE-TUE-TUE SUBQ 07/02/19 21:00 08/01/19 20:59 Epoetin Michael (Epoetin Michael(ESRD on dialysis)) 3,000 unit TUE-TUE-TUE SUBQ 07/02/19 21:00 08/01/19 20:59 Heparin Sodium/ Sodium Chloride (Heparin 1000 units/500ml Premix) 1,000 unit ONCE PRN IV HD CATH PLACEMENT 07/02/19 09:15 07/03/19 23:59 Lactulose (Cephulac) 30 gm FOUR TIMES A DAY NG 07/01/19 09:00 07/20/19 12:59 07/02/19 07:57 Lidocaine HCl (Xylocaine 1% 30ml) 30 ml ONCE PRN INJ HD CATH PLACEMENT 07/02/19 10:00 07/03/19 23:59 Metronidazole (Flagyl) 500 mg Q8HR NG 06/27/19 14:00 07/04/19 13:59 07/02/19 05:01 Midodrine (Pro-Amatine) 10 mg EVERY 8 HOURS ORAL 07/01/19 09:00 07/29/19 08:59 07/02/19 05:00 Octreotide Acetate 500 mcg/ Sodium Chloride 500 ml @ 50 mls/hr Q10H IV 07/01/19 09:00 07/31/19 08:59 07/02/19 05:00 Pantoprazole (Protonix) 40 mg EVERY 12 HOURS IVP 06/21/19 21:00 07/20/19 20:59 07/02/19 07:57 Ilia Chakraborty MD Jul 02, 2019 12:20
[2019-07-02] MEDS: DOPamine 400mg/250ml 250 ML IV SCH (14:53)
--- NOTE | 2019-07-02 16:06 | Hematology/Onc Progress Note ---
Assessment/Plan Assessment/Plan Assessment and Recs: # Thrombocytopenia - potential causes multifactorial, does have a history of etoh abuse, cirrhosis of the liver, hepatosplenomegaly, portal HTN, coagulopathy noted as well, likely oscillatory pattern can be due to abx as well --> Hep panel and HIV ordered (NEG) --> US abd does show, portal htn and cirrhosis ++ --> Peripheral smear ordered to evaluate for blasts /schistocytes reviewed and is negative --> abx and other meds have been reviewed --> ok for ppx if plt >50k w/ either heparin or lovenox --> Transfuse if Plt < 20k and fever, or if Plt < 10k without fever --> plt trend 80-->97-->117-->157k->216k-->107k-->72k-->68k-->109k # Anemia of chronic disease due to underlying chronic medical issues, multifactorial (myelosuprresion noted) --> Anemia workup has been reviewed, ferritin 297 --> EPOGEN HAS BEEN ORDERED WITH HD --> Hgb goal >7. Transfuse prn. --> Epogen or iron at this time is not particularly indicated --> Medications have been reviewed --> low threshold for gi evaluation in case has occult + --> hgb trend: 7.7-->8.2-->9->8.4-->8.3-->8.2-->8-->7.4->7.3 --> serum electrophoresis shows no m-spike 06/27 # Coagulopathy due to cirrhosis --> give Vitk as needed # Leukocytosis with sepsis is on abx --> ID following, appreciate recs --> wbc trend: 17k-->13.9-->19.5 --> FLAGYL and CTX # Acute alcoholic intoxication --> etoh abuse history --> thiamine, folic acid, ivf # End-stage liver disease --> Hepatorenal syndrome r/o with renal, albumin prn # Pancreatitis, alcoholic, acute # Tachycardia # Dvt ppx with scds given low plts The timing of this note does not necessarily reflect the time of the patient was seen. GREATLY APPRECIATE CONSULTATION. Subjective Constitutional: Denies: no symptoms, chills, fever, malaise, weakness, other HEENT: Denies: no symptoms, eye pain, blurred vision, tearing, double vision, ear pain, ear discharge, nose pain, nose congestion, throat pain, throat swelling, mouth pain, mouth swelling, other Gastrointestinal/Abdominal: Denies: no symptoms, abdomen distended, abdominal pain, black stools, tarry stools, blood in stool, constipated, diarrhea, difficulty swallowing, nausea, poor appetite, poor fluid intake, rectal bleeding , vomiting, other Genitourinary: Denies: no symptoms, burning, discharge, frequency, flank pain, hematuria, incontinence, pain, urgency, other Neurologic/Psychiatric: Denies: no symptoms, anxiety, depressed, emotional problems, headache, numbness, paresthesia, pre-existing deficit, seizure, tingling, tremors, weakness, other Endocrine: Denies: no symptoms, excessive sweating, flushing, intolerance to cold, intolerance to heat, increased hunger, increased thirst, increased urine, unexplained weight gain, unexplained weight loss, other Allergies: Coded Allergies: No Known Allergies (Unverified , 06/20/19) Subjective 06/21: low k, ferritin 297, h/h stable, afebrile, blood transfused 06/22: in icu, on restraints, labs reviewed, no f/c, imaging reviewed 06/23: pain meds given, remains in icu, again in restraints, bili higher, inr as well, given vitk 06/25: no fevers, no chills, no bleeding, confused in bed in icu 06/26: no events to report, no bleeding, remains in icu, ++ bipap 06/27: icu,s/p paracentesis yesterday, off pressors, h/h stable 06/28: on ctx/flagyl, remains confused, no bleeding, plt is lower 06/29: no f/c, on abx, no acute events, no distress, labs reviewed 06/30: remains in the icu, on abx, no f/c, scds+ 07/02: remains in the icu, no fevers or chills, prbc ordered, as well as epo Objective Objective Current Medications Medications (Trade) Dose Ordered Sig/Gabriela Route PRN Reason Start Time Stop Time Status Last Admin Dose Admin Ceftriaxone Sodium 1 gm/ Dextrose 55 ml @ 110 mls/hr DAILY IVPB 06/27/19 13:00 07/04/19 12:59 07/02/19 08:05 Chlorhexidine Gluconate (Emilie-Hex 2%) 1 applic DAILY@2000 TOPIC 06/26/19 20:00 07/26/19 19:59 07/01/19 20:56 Dopamine HCl/ Dextrose 250 ml @ 0 mls/hr Q24H IV 06/30/19 14:53 07/30/19 14:52 Epoetin Michael (Epoetin Michael(ESRD on dialysis)) 2,000 unit TUE-TUE-TUE SUBQ 07/02/19 21:00 08/01/19 20:59 Epoetin Michael (Epoetin Michael(ESRD on dialysis)) 3,000 unit TUE- SUBQ 07/02/19 21:00 08/01/19 20:59 Heparin Sodium/ Sodium Chloride (Heparin 1000 units/500ml Premix) 1,000 unit ONCE PRN IV HD CATH PLACEMENT 07/02/19 09:15 07/03/19 23:59 Lactulose (Cephulac) 30 gm FOUR TIMES A DAY NG 07/01/19 09:00 07/20/19 12:59 07/02/19 12:55 Lidocaine HCl (Xylocaine 1% 30ml) 30 ml ONCE PRN INJ HD CATH PLACEMENT 07/02/19 10:00 07/03/19 23:59 Metronidazole (Flagyl) 500 mg Q8HR NG 06/27/19 14:00 07/04/19 13:59 07/02/19 12:55 Midodrine (Pro-Amatine) 10 mg EVERY 8 HOURS ORAL 07/01/19 09:00 07/29/19 08:59 07/02/19 12:56 Octreotide Acetate 500 mcg/ Sodium Chloride 500 ml @ 50 mls/hr Q10H IV 07/01/19 09:00 07/31/19 08:59 07/02/19 14:58 Pantoprazole (Protonix) 40 mg EVERY 12 HOURS IVP 06/21/19 21:00 07/20/19 20:59 07/02/19 07:57 Last 24 Hour Vital Signs Date Time Temp Pulse Resp B/P (MAP) Pulse Ox O2 Delivery O2 Flow Rate FiO2 07/02/19 15:24 80 26 96 Facial 30 07/02/19 15:00 78 26 98/62 (74) 96 07/02/19 14:53 105/88 07/02/19 14:20 77 26 97 Facial 35 07/02/19 14:00 89 28 133/96 (108) 95 07/02/19 13:00 77 24 114/54 (74) 96 07/02/19 12:00 76 07/02/19 12:00 Nasal Cannula 2.0 07/02/19 12:00 2.0 07/02/19 12:00 98.4 76 22 104/54 (71) 98 07/02/19 11:00 76 26 101/47 (65) 96 07/02/19 10:00 77 21 130/61 (84) 97 07/02/19 09:00 83 20 134/58 (83) 98 07/02/19 08:00 2.0 07/02/19 08:00 98.1 66 22 114/51 (72) 97 07/02/19 08:00 Nasal Cannula 2.0 07/02/19 08:00 67 07/02/19 07:26 95 Nasal Cannula 2.0 28 07/02/19 07:26 70 20 95 Nasal Cannula 2.0 28 07/02/19 07:00 70 24 113/46 (68) 95 07/02/19 06:00 67 28 101/55 (70) 96 07/02/19 05:00 63 21 91/42 (58) 97 07/02/19 04:00 2.0 07/02/19 04:00 Nasal Cannula 2.0 07/02/19 04:00 63 07/02/19 04:00 99.6 68 30 109/55 (73) 97 07/02/19 03:00 67 28 89/47 (61) 96 07/02/19 02:00 70 27 104/51 (68) 97 07/02/19 01:00 81 23 96/53 (67) 97 07/02/19 00:00 99.1 66 27 100/52 (68) 99 07/02/19 00:00 67 07/02/19 00:00 2.0 07/02/19 00:00 Nasal Cannula 2.0 07/01/19 23:00 67 24 89/55 (66) 99 07/01/19 22:00 71 26 96/49 (65) 98 07/01/19 21:00 75 31 92/47 (62) 96 07/01/19 20:00 75 07/01/19 20:00 Nasal Cannula 2.0 07/01/19 20:00 98.9 78 24 111/41 (64) 98 07/01/19 20:00 2.0 07/01/19 19:05 82 23 96 Nasal Cannula 2.0 28 07/01/19 19:05 96 Nasal Cannula 2.0 28 07/01/19 19:00 84 23 102/72 (82) 95 07/01/19 18:00 70 28 95/44 (61) 98 07/01/19 17:00 70 27 102/47 (65) 98 07/01/19 16:00 68 07/01/19 16:00 97.8 69 27 90/52 (65) 98 07/01/19 16:00 Nasal Cannula 2.0 07/01/19 16:00 2.0 07/01/19 15:00 69 28 106/50 (68) 98 07/01/19 14:00 70 28 97/43 (61) 98 07/01/19 13:00 67 28 97/41 (59) 98 07/01/19 12:00 98.6 66 27 109/51 (70) 99 07/01/19 12:00 74 07/01/19 12:00 Nasal Cannula 2.0 07/01/19 12:00 2.0 07/01/19 11:00 61 28 94/46 (62) 98 07/01/19 10:00 69 32 98/46 (63) 97 07/01/19 09:00 63 27 97/47 (64) 98 07/01/19 08:00 Nasal Cannula 2.0 07/01/19 08:00 98.0 63 26 95/47 (63) 99 07/01/19 08:00 2.0 07/01/19 08:00 61 07/01/19 07:00 62 28 98/41 (60) 98 07/01/19 06:39 60 25 100 Nasal Cannula 2.0 28 07/01/19 06:39 99 Nasal Cannula 2.0 28 07/01/19 06:00 62 27 99/50 (66) 98 07/01/19 05:00 60 26 95/44 (61) 98 07/01/19 04:00 2.0 07/01/19 04:00 62 07/01/19 04:00 100.0 62 25 89/45 (60) 97 07/01/19 04:00 Nasal Cannula 2.0 07/01/19 03:00 68 32 121/46 (71) 99 07/01/19 02:00 65 28 102/44 (63) 99 07/01/19 01:00 64 27 94/46 (62) 99 07/01/19 00:00 2.0 07/01/19 00:00 Nasal Cannula 2.0 07/01/19 00:00 65 07/01/19 00:00 99.5 66 30 94/73 (80) 99 06/30/19 23:00 67 28 108/69 (82) 100 06/30/19 22:00 65 28 100/36 (57) 100 06/30/19 21:00 62 25 96/46 (63) 100 06/30/19 20:42 2.0 06/30/19 20:00 70 06/30/19 20:00 Nasal Cannula 2.0 06/30/19 20:00 99.9 69 30 105/54 (71) 100 06/30/19 19:00 70 30 93/50 (64) 100 06/30/19 18:38 99 Nasal Cannula 2.0 28 06/30/19 18:38 68 25 99 Nasal Cannula 2.0 28 06/30/19 18:00 68 27 92/40 (57) 100 06/30/19 17:00 69 24 87/43 (58) 98 06/30/19 16:30 66 28 81/47 (58) 98 Intake and Output 07/01/19 07/02/19 19:00 07:00 Intake Total 2250 ml 2190 ml Output Total 660 ml 30 ml Balance 1590 ml 2160 ml Free Water 100 ml 200 ml IV Total 1610 ml 1450 ml Tube Feeding 540 ml 540 ml Output Urine Total 60 ml 30 ml Stool Total 600 ml Labs Test 06/30/19 03:20 06/30/19 16:53 07/01/19 04:30 07/02/19 04:00 White Blood Count 17.0 K/UL (4.8-10.8) 16.3 K/UL (4.8-10.8) 17.8 K/UL (4.8-10.8) Red Blood Count 2.34 M/UL (4.70-6.10) 2.55 M/UL (4.70-6.10) 2.27 M/UL (4.70-6.10) Hemoglobin 7.4 G/DL (14.2-18.0) 8.0 G/DL (14.2-18.0) 7.3 G/DL (14.2-18.0) Hematocrit 23.6 % (42.0-52.0) 26.0 % (42.0-52.0) 23.0 % (42.0-52.0) Mean Corpuscular Volume 101 FL (80-99) 102 FL (80-99) 101 FL (80-99) Mean Corpuscular Hemoglobin 31.6 PG (27.0-31.0) 31.3 PG (27.0-31.0) 32.1 PG (27.0-31.0) Mean Corpuscular Hemoglobin Concent 31.4 G/DL (32.0-36.0) 30.8 G/DL (32.0-36.0) 31.7 G/DL (32.0-36.0) Red Cell Distribution Width 23.7 % (11.6-14.8) 23.6 % (11.6-14.8) 24.2 % (11.6-14.8) Platelet Count 68 K/UL (150-450) 73 K/UL (150-450) 109 K/UL (150-450) Mean Platelet Volume 9.4 FL (6.5-10.1) 9.7 FL (6.5-10.1) 10.2 FL (6.5-10.1) Neutrophils (%) (Auto) % (45.0-75.0) % (45.0-75.0) % (45.0-75.0) Lymphocytes (%) (Auto) % (20.0-45.0) % (20.0-45.0) % (20.0-45.0) Monocytes (%) (Auto) % (1.0-10.0) % (1.0-10.0) % (1.0-10.0) Eosinophils (%) (Auto) % (0.0-3.0) % (0.0-3.0) % (0.0-3.0) Basophils (%) (Auto) % (0.0-2.0) % (0.0-2.0) % (0.0-2.0) Differential Total Cells Counted 100 100 100 Neutrophils % (Manual) 66 % (45-75) 81 % (45-75) 73 % (45-75) Lymphocytes % (Manual) 19 % (20-45) 9 % (20-45) 9 % (20-45) Monocytes % (Manual) 2 % (1-10) 4 % (1-10) 6 % (1-10) Eosinophils % (Manual) 0 % (0-3) 1 % (0-3) 3 % (0-3) Basophils % (Manual) 2 % (0-2) 0 % (0-2) 1 % (0-2) Band Neutrophils 11 % (0-8) 5 % (0-8) 6 % (0-8) Platelet Estimate Decreased Decreased Decreased Platelet Morphology Normal Normal Normal Hypochromasia 2+ 1+ 2+ Anisocytosis 3+ 2+ 3+ Macrocytosis 1+ 1+ 2+ Tear Drop Cells Occasional Ovalocytes Occasional Occasional Sodium Level 150 MMOL/L (136-145) 147 MMOL/L (136-145) 146 MMOL/L (136-145) 145 MMOL/L (136-145) Potassium Level 3.7 MMOL/L (3.5-5.1) 3.7 MMOL/L (3.5-5.1) 3.7 MMOL/L (3.5-5.1) Chloride Level 121 MMOL/L (98-107) 118 MMOL/L (98-107) 117 MMOL/L (98-107) Carbon Dioxide Level 16 MMOL/L (21-32) 14 MMOL/L (21-32) 12 MMOL/L (21-32) Anion Gap 13 mmol/L (5-15) 15 mmol/L (5-15) 16 mmol/L (5-15) Blood Urea Nitrogen 55 mg/dL (7-18) 64 mg/dL (7-18) 72 mg/dL (7-18) Creatinine 3.0 MG/DL (0.55-1.30) 4.6 MG/DL (0.55-1.30) 6.1 MG/DL (0.55-1.30) Estimat Glomerular Filtration Rate 23.4 mL/min (>60) 14.3 mL/min (>60) 10.3 mL/min (>60) Glucose Level 128 MG/DL (74-106) 121 MG/DL (74-106) 138 MG/DL (74-106) Calcium Level 8.3 MG/DL (8.5-10.1) 8.0 MG/DL (8.5-10.1) 7.6 MG/DL (8.5-10.1) Total Bilirubin 29.9 MG/DL (0.2-1.0) 33.5 MG/DL (0.2-1.0) Direct Bilirubin 24.7 MG/DL (0.0-0.3) 28.3 MG/DL (0.0-0.3) Aspartate Amino Transf (AST/SGOT) 103 U/L (15-37) 102 U/L (15-37) Alanine Aminotransferase (ALT/SGPT) 22 U/L (12-78) 19 U/L (12-78) Alkaline Phosphatase 226 U/L (46-116) 226 U/L (46-116) Ammonia 52 umol/L (11-32) 73 umol/L (11-32) Total Protein 5.0 G/DL (6.4-8.2) 5.0 G/DL (6.4-8.2) Albumin 1.6 G/DL (3.4-5.0) 1.7 G/DL (3.4-5.0) Globulin 3.4 g/dL 3.3 g/dL Albumin/Globulin Ratio 0.5 (1.0-2.7) 0.5 (1.0-2.7) Myelocytes % 2 % (0-0) Nucleated Red Blood Cells 1 /100 WBC Polychromasia 1+ [place] Cells 1+ Prothrombin Time 17.8 SEC (9.30-11.50) Prothromb Time International Ratio 1.7 (0.9-1.1) Phosphorus Level 5.7 MG/DL (2.5-4.9) Magnesium Level 2.1 MG/DL (1.8-2.4) Test 07/02/19 08:20 07/02/19 09:00 07/02/19 13:20 Arterial Blood pH 7.157 (7.350-7.450) Arterial Blood Partial Pressure CO2 28.2 mmHg (35.0-45.0) Arterial Blood Partial Pressure O2 85.4 mmHg (75.0-100.0) Arterial Blood HCO3 9.8 mmol/L (22.0-26.0) Arterial Blood Oxygen Saturation 94.0 % (95-100) Arterial Blood Base Excess -17.5 (-2-2) Dave Test Positive Activated Partial Thromboplast Time 38 SEC (23-33) Height (Feet): 5 Height (Inches): 9.00 Weight (Pounds): 217 Objective Physical Exam: Vitals: reviewed General Appearance: NAD HEENT: normocephalic, atraumatic ++ icterus jaundice, ng+ Neck: non-tender, normal alignment Respiratory/Chest: normal breath sounds bilaterally++ nc Cardiovascular/Chest: normal peripheral pulses, normal rate Abdomen: normal bowel sounds, soft,+ peg Extremities: normal range of motion Marty Kebede MD Jul 02, 2019 16:06
--- NOTE | 2019-07-02 19:03 | Pulmonolgy Critical Care Note ---
Critical Care - Asmt/Plan Assessment/Plan: Pulmonary CCM Progress HPI This is a 39-year-old male who is an alcoholic with significant fatty liver on abdominal CT and alcoholic hepatitis, DF 16, not candidate for steroids currently per GI. He has been drinking heavily for 3 months straight. He stopped drinking [employer]. Noted to have Hepatic Encephalopathy and Hepatorenal Syndrome. No bleeding. No nausea no vomiting. Nothing made it better. Movement or exertion makes it worse. Noted to have significant hypokalemia and alkalosis, evidence of sepsis, source unclear - some bacteria in urine, mid ascites - possible SBP, dilated Gallbladder On BiPAP, NGT feeds on hold, on Lactulose Na improving, renal function worse, now on Hemodialysis for worsening acidosis, uremia Remains confused BP stable, Midodrine, PRN dopamine to maintain BP Allergies: No Known Allergies Past Medical History: Alcohol abuse All Other Systems: negative except mentioned in HPI Physical Exam Vital Signs Noted General Appearance: Jaundiced, awake Head: normocephalic, atraumatic, HD catheter Eyes: bilateral eye PERRL, bilateral eye EOMI, bilateral eye scleral icterus ENT: moist mm Neck: no masses, no LN Respiratory: chest non-tender, lungs clear, normal breath sounds Cardiovascular: regular rate, rhythm, Normal HS1, HS2, no murmur, tachycardia Gastrointestinal: Obese, hepatomegaly, some tenderness RUQ, normal bowel sounds , no mass, no rebound Musculoskeletal: moves all limbs Neurologic: responds to commands, awake Skin: jaundiced, moderate edema Impression: Acute alcoholic intoxication Severe Sepsis Alcoholic Hepatitis Possible Cirrhosis Metabolic and respiratory alkalosis Possible Portal Hypertension Hepatorenal syndrome - worsening renal function Hypernatremia Pancreatitis, alcoholic, acute Anemia Monitor CXR/ABG Plan ICU management NPO except meds IV antibiotics per ID Aspiration precautions BiPAP PRN May need intubation for airway protection GI/Renal following HD per Nephrology Pressors PRN Transfuse PRN Thiamine Monitor labs Adjust FIO2 - sats 90-96% Labs: noted EKG: Rate: tachycardiac Rhythm: NSR ST Segments: other - NSST changes Chest X-Ray: hypoventilatory exam, no consolidation, no effusion, no pneumothorax, no acute cardiopulmonary disease CT abdomen pelvis: Severely enlarged liver and fatty liver. Mild ascites. Critical Care - Objective Last 24 Hour Vital Signs Date Time Temp Pulse Resp B/P (MAP) Pulse Ox O2 Delivery O2 Flow Rate FiO2 07/02/19 18:48 96 Bi-Pap 30 07/02/19 18:47 71 25 96 Bi-Pap 30 07/02/19 18:47 71 25 96 Facial 30 07/02/19 18:00 76 17 112/48 (69) 96 07/02/19 17:00 84 22 120/54 (76) 96 07/02/19 16:53 82 32 96 Facial 30 07/02/19 16:00 98.2 82 22 131/60 (83) 93 07/02/19 16:00 35 07/02/19 16:00 Nasal Cannula 2.0 07/02/19 15:43 79 07/02/19 15:24 80 26 96 Facial 30 07/02/19 15:00 78 26 98/62 (74) 96 07/02/19 14:53 105/88 07/02/19 14:20 77 26 97 Facial 35 07/02/19 14:00 89 28 133/96 (108) 95 07/02/19 13:00 77 24 114/54 (74) 96 07/02/19 12:00 76 07/02/19 12:00 Nasal Cannula 2.0 07/02/19 12:00 2.0 07/02/19 12:00 98.4 76 22 104/54 (71) 98 07/02/19 11:00 76 26 101/47 (65) 96 07/02/19 10:00 77 21 130/61 (84) 97 07/02/19 09:00 83 20 134/58 (83) 98 07/02/19 08:00 2.0 07/02/19 08:00 98.1 66 22 114/51 (72) 97 07/02/19 08:00 Nasal Cannula 2.0 07/02/19 08:00 67 07/02/19 07:26 95 Nasal Cannula 2.0 28 07/02/19 07:26 70 20 95 Nasal Cannula 2.0 28 07/02/19 07:00 70 24 113/46 (68) 95 07/02/19 06:00 67 28 101/55 (70) 96 07/02/19 05:00 63 21 91/42 (58) 97 07/02/19 04:00 2.0 07/02/19 04:00 Nasal Cannula 2.0 07/02/19 04:00 63 07/02/19 04:00 99.6 68 30 109/55 (73) 97 07/02/19 03:00 67 28 89/47 (61) 96 07/02/19 02:00 70 27 104/51 (68) 97 07/02/19 01:00 81 23 96/53 (67) 97 07/02/19 00:00 99.1 66 27 100/52 (68) 99 07/02/19 00:00 67 07/02/19 00:00 2.0 07/02/19 00:00 Nasal Cannula 2.0 07/01/19 23:00 67 24 89/55 (66) 99 07/01/19 22:00 71 26 96/49 (65) 98 07/01/19 21:00 75 31 92/47 (62) 96 07/01/19 20:00 75 07/01/19 20:00 Nasal Cannula 2.0 07/01/19 20:00 98.9 78 24 111/41 (64) 98 07/01/19 20:00 2.0 07/01/19 19:05 82 23 96 Nasal Cannula 2.0 28 07/01/19 19:05 96 Nasal Cannula 2.0 28 Critical Care - Subjective ROS Limited/Unobtainable: No FI02: 30 Sputum Amount: None Tube Feeding Amount: 45 I&O: Intake and Output 07/01/19 07/02/19 19:00 07:00 Intake Total 2250 ml 2190 ml Output Total 660 ml 30 ml Balance 1590 ml 2160 ml Free Water 100 ml 200 ml IV Total 1610 ml 1450 ml Tube Feeding 540 ml 540 ml Output Urine Total 60 ml 30 ml Stool Total 600 ml Quang Domingo MD Jul 02, 2019 19:02
[2019-07-02] MEDS: Dyna-Hex 2% Top Sol 2oz TOPIC SCH (20:27)
[2019-07-02] MEDS: Epoetin Alfa-EPBX(ESRD on dialysis)3000 units/ml vial SUBQ SCH (20:28)
[2019-07-02] MEDS: Epoetin Alfa-EPBX(ESRD on dialysis)2000 units/ml vial SUBQ SCH (20:28)
--- NOTE | 2019-07-02 21:07 | General Progress Note ---
Assessment/Plan Problem List: (1) Anemia ICD Codes: D64.9 - Anemia, unspecified SNOMED: 489093665 Qualifiers: Qualified Codes: D64.9 - Anemia, unspecified (2) Acute alcoholic intoxication ICD Codes: F10.929 - Alcohol use, unspecified with intoxication, unspecified SNOMED: 08706842, 8352990 Qualifiers: Qualified Codes: F10.920 - Alcohol use, unspecified with intoxication, uncomplicated (3) End-stage liver disease ICD Codes: K72.90 - Hepatic failure, unspecified without coma SNOMED: 417979360 (4) Hepatorenal syndrome ICD Codes: K76.7 - Hepatorenal syndrome SNOMED: 30774431, 0437602 (5) Pancreatitis, alcoholic, acute ICD Codes: K85.20 - Alcohol induced acute pancreatitis without necrosis or infection SNOMED: 221176984, 3907911 Qualifiers: Qualified Codes: K85.20 - Alcohol induced acute pancreatitis without necrosis or infection (6) Respiratory failure ICD Codes: J96.90 - Respiratory failure, unspecified, unspecified whether with hypoxia or hypercapnia SNOMED: 586796430 Status: progressing, not improved, unchanged, deteriorating Assessment/Plan: hepatorenal syndrome] poor prognosis afebrile still edematious ng tube feeding etoh cirrhosis jaundice confused distended abdomen s/p paracentesis Subjective ROS Limited/Unobtainable: Yes Allergies: Coded Allergies: No Known Allergies (Unverified , 06/20/19) Objective Last 24 Hour Vital Signs Date Time Temp Pulse Resp B/P (MAP) Pulse Ox O2 Delivery O2 Flow Rate FiO2 07/02/19 20:51 70 30 99 Facial 30 07/02/19 20:00 35 07/02/19 20:00 Bi-pap 07/02/19 20:00 98.3 71 20 96/42 (60) 100 07/02/19 19:00 75 17 93/52 (66) 96 07/02/19 18:48 96 Bi-Pap 30 07/02/19 18:47 71 25 96 Bi-Pap 30 07/02/19 18:47 71 25 96 Facial 30 07/02/19 18:00 76 17 112/48 (69) 96 07/02/19 17:00 84 22 120/54 (76) 96 07/02/19 16:53 82 32 96 Facial 30 07/02/19 16:00 98.2 82 22 131/60 (83) 93 07/02/19 16:00 35 07/02/19 16:00 Nasal Cannula 2.0 07/02/19 15:43 79 07/02/19 15:24 80 26 96 Facial 30 07/02/19 15:00 78 26 98/62 (74) 96 07/02/19 14:53 105/88 07/02/19 14:20 77 26 97 Facial 35 07/02/19 14:00 89 28 133/96 (108) 95 07/02/19 13:00 77 24 114/54 (74) 96 07/02/19 12:00 76 07/02/19 12:00 Nasal Cannula 2.0 07/02/19 12:00 2.0 07/02/19 12:00 98.4 76 22 104/54 (71) 98 07/02/19 11:00 76 26 101/47 (65) 96 07/02/19 10:00 77 21 130/61 (84) 97 07/02/19 09:00 83 20 134/58 (83) 98 07/02/19 08:00 2.0 07/02/19 08:00 98.1 66 22 114/51 (72) 97 07/02/19 08:00 Nasal Cannula 2.0 07/02/19 08:00 67 07/02/19 07:26 95 Nasal Cannula 2.0 28 07/02/19 07:26 70 20 95 Nasal Cannula 2.0 28 07/02/19 07:00 70 24 113/46 (68) 95 07/02/19 06:00 67 28 101/55 (70) 96 07/02/19 05:00 63 21 91/42 (58) 97 07/02/19 04:00 2.0 07/02/19 04:00 Nasal Cannula 2.0 07/02/19 04:00 63 07/02/19 04:00 99.6 68 30 109/55 (73) 97 07/02/19 03:00 67 28 89/47 (61) 96 07/02/19 02:00 70 27 104/51 (68) 97 07/02/19 01:00 81 23 96/53 (67) 97 07/02/19 00:00 99.1 66 27 100/52 (68) 99 07/02/19 00:00 67 07/02/19 00:00 2.0 07/02/19 00:00 Nasal Cannula 2.0 07/01/19 23:00 67 24 89/55 (66) 99 07/01/19 22:00 71 26 96/49 (65) 98 Intake and Output 07/01/19 07/02/19 18:59 06:59 Intake Total 2325 ml 2140 ml Output Total 660 ml 35 ml Balance 1665 ml 2105 ml Free Water 100 ml 200 ml IV Total 1685 ml 1400 ml Tube Feeding 540 ml 540 ml Output Urine Total 60 ml 35 ml Stool Total 600 ml Laboratory Tests 07/02/19 04:00: White Blood Count 17.8H, Red Blood Count 2.27L, Hemoglobin 7.3L, Hematocrit 23.0L, Mean Corpuscular Volume 101H, Mean Corpuscular Hemoglobin 32.1H, Mean Corpuscular Hemoglobin Concent 31.7L, Red Cell Distribution Width 24.2H, Platelet Count 109L, Mean Platelet Volume 10.2H, Neutrophils (%) (Auto) , Lymphocytes (%) (Auto) , Monocytes (%) (Auto) , Eosinophils (%) (Auto) , Basophils (%) (Auto) , Differential Total Cells Counted 100, Neutrophils % ( Manual) 73, Lymphocytes % (Manual) 9L, Monocytes % (Manual) 6, Eosinophils % ( Manual) 3, Basophils % (Manual) 1, Myelocytes % 2H, Band Neutrophils 6, Nucleated Red Blood Cells 1, Platelet Estimate DecreasedL, Platelet Morphology Normal, Polychromasia 1+, Hypochromasia 2+, Anisocytosis 3+, Macrocytosis 2+, Ovalocytes Occasional, [place] Cells 1+, Prothrombin Time 17.8H, Prothromb Time International Ratio 1.7H, Sodium Level 145, Potassium Level 3.7, Chloride Level 117H, Carbon Dioxide Level 12L, Anion Gap 16H, Blood Urea Nitrogen 72H, Creatinine 6.1H, Estimat Glomerular Filtration Rate 10.3, Glucose Level 138H, Calcium Level 7.6L, Phosphorus Level 5.7H, Magnesium Level 2.1, Total Bilirubin 33.5H, Direct Bilirubin 28.3H, Aspartate Amino Transf (AST/SGOT) 102H, Alanine Aminotransferase (ALT/SGPT) 19, Alkaline Phosphatase 226H, Ammonia 73H, Total Protein 5.0L, Albumin 1.7L, Globulin 3.3, Albumin/Globulin Ratio 0.5L 07/02/19 08:20: Arterial Blood pH 7.157*L, Arterial Blood Partial Pressure CO2 28.2L, Arterial Blood Partial Pressure O2 85.4, Arterial Blood HCO3 9.8*L, Arterial Blood Oxygen Saturation 94.0L, Arterial Blood Base Excess -17.5*L, Dave Test Positive 07/02/19 09:00: Activated Partial Thromboplast Time 38H 07/02/19 13:20: Hepatitis B Surface Antigen [Pending] 07/02/19 16:45: Arterial Blood pH 7.276L, Arterial Blood Partial Pressure CO2 39.8, Arterial Blood Partial Pressure O2 88.1, Arterial Blood HCO3 18.1L, Arterial Blood Oxygen Saturation 95.8, Arterial Blood Base Excess -8.1L, Dave Test Positive Height (Feet): 5 Height (Inches): 9.00 Weight (Pounds): 217 Cardiovascular: normal rate Respiratory/Chest: lungs clear Abdomen: soft Deejay Saldaña MD Jul 02, 2019 21:07
[2019-07-03] VITALS (24 sets, daily range): BP systolic 90–116; BP diastolic 36–80
[2019-07-03] MEDS: Octreotide Acetate 500 MCG in Sodium Chloride 499 ML IV SCH ×3 (01:04→20:17)
[2019-07-03 04:52] LABS: HEMATOCRIT 23.8 % (42.0-52.0); HEMOGLOBIN 7.7 G/DL (14.2-18.0); MEAN CORPUSCULAR VOLUME 99 FL (80-99); PLATELET COUNT 108 K/UL (150-450); RED BLOOD COUNT 2.42 M/UL (4.70-6.10); RED CELL DISTRIBUTION WIDTH 23.9 % (11.6-14.8); WHITE BLOOD COUNT 18.7 K/UL (4.8-10.8)
[2019-07-03 05:16] LABS: ALANINE AMINOTRANSFERASE 20 U/L (12-78); ALBUMIN 1.6 G/DL (3.4-5.0); ALBUMIN/GLOBULIN RATIO 0.5 (1.0-2.7); ALKALINE PHOSPHATASE 226 U/L (46-116); ANION GAP 16 mmol/L (5-15); ASPARTATE AMINO TRANSFERASE 125 U/L (15-37); BILIRUBIN,TOTAL 31.9 MG/DL (0.2-1.0); BLOOD UREA NITROGEN 58 mg/dL (7-18); CALCIUM 7.7 MG/DL (8.5-10.1); CARBON DIOXIDE 18 MMOL/L (21-32); CHLORIDE 116 MMOL/L (98-107); CREATININE 5.6 MG/DL (0.55-1.30); PHOSPHORUS 4.9 MG/DL (2.5-4.9); POTASSIUM 3.2 MMOL/L (3.5-5.1); SODIUM 150 MMOL/L (136-145)
[2019-07-03 05:19] LABS: BILIRUBIN,DIRECT 26.2 MG/DL (0.0-0.3)
[2019-07-03] MEDS: metroNIDAZOLE 500mg tab NG SCH ×3 (05:37→21:36)
[2019-07-03] MEDS: Midodrine 10mg tab ORAL SCH ×3 (05:37→21:36)
[2019-07-03] MEDS: Lactulose 20gm/30ml UDC NG SCH ×4 (08:10→20:16)
[2019-07-03] MEDS: Pantoprazole Inj IVP SCH ×2 (08:10→20:16)
[2019-07-03] MEDS: cefTRIAXone 1 GM in D5W 55 ML IVPB SCH (08:10)
[2019-07-03] MEDS ORDERED: NS 275ml ONE (10:43)
[2019-07-03] MEDS ORDERED: [UNRECOGNIZED DRUG - OTHER] IV ONE (10:43)
[2019-07-03] MEDS ORDERED: TUBING IV ONE (10:43)
[2019-07-03] MEDS ORDERED: Tubing IV Secondary IV ONE ×2 (10:43→10:55)
--- NOTE | 2019-07-03 10:51 | Cardiac Electrophysiology PN ---
Assessment/Plan Assessment/Plan 1. Sinus tach due to alcohol withdrawal and hepatic encephalopathy. No SVT or atrial fibrillation. EF 55% 2. Cirrhosis. On Lactulose and albumin S/P paracentesis 3. Hypotension BP 80 better after albumin and on Midodrine 10 q 8 hr S/P PICC line in case needs pressors 4. Hepatorenal syndrome. Creatinine is 6. Fu . S/P Carrillo Catheter and HD yesterday and getting another HD today 5. Hypokalemia. 6. Alcohol intoxication. Thiamine, folate, and Librium. 7. Hepatic encephalopathy DW RN Subjective Subjective In ICU in restraints and lethargic On BIPAP. No arrhythmias and off pressors. No urine out put now.Had Right IJ Carrillo and HD yesterday and will be getting HD today Objective Last 24 Hour Vital Signs Date Time Temp Pulse Resp B/P (MAP) Pulse Ox O2 Delivery O2 Flow Rate FiO2 07/03/19 10:00 66 26 102/42 (62) 99 07/03/19 09:00 78 23 111/48 (69) 97 07/03/19 08:48 64 29 98 Facial 30 07/03/19 08:00 63 07/03/19 08:00 99.0 63 19 103/51 (68) 98 07/03/19 08:00 Bi-pap 07/03/19 08:00 30 07/03/19 07:00 69 21 97 Bi-Pap 30 07/03/19 07:00 64 21 98/42 (60) 97 07/03/19 07:00 97 Bi-Pap 30 07/03/19 06:59 62 21 97 Facial 30 07/03/19 06:00 65 26 96/40 (58) 97 07/03/19 05:07 73 26 98 Facial 30 07/03/19 05:00 67 22 91/36 (54) 97 07/03/19 04:00 Bi-pap 07/03/19 04:00 99.1 73 24 94/47 (63) 95 07/03/19 04:00 74 07/03/19 04:00 30 07/03/19 03:00 74 17 108/42 (64) 97 07/03/19 02:48 75 29 99 Facial 30 07/03/19 02:00 73 22 103/40 (61) 97 07/03/19 01:03 71 26 98 Facial 30 07/03/19 01:00 72 18 93/40 (57) 97 07/03/19 00:00 Bi-pap 07/03/19 00:00 99.9 73 15 99/42 (61) 98 07/03/19 00:00 69 07/03/19 00:00 30 07/02/19 23:00 74 21 111/66 (81) 99 07/02/19 22:46 72 26 97 Facial 30 07/02/19 22:00 74 24 94/42 (59) 99 07/02/19 21:00 70 20 104/44 (64) 99 07/02/19 20:51 70 30 99 Facial 30 07/02/19 20:00 35 07/02/19 20:00 Bi-pap 07/02/19 20:00 72 07/02/19 20:00 98.3 71 20 96/42 (60) 100 07/02/19 19:00 75 17 93/52 (66) 96 07/02/19 18:48 96 Bi-Pap 30 07/02/19 18:47 71 25 96 Bi-Pap 30 07/02/19 18:47 71 25 96 Facial 30 07/02/19 18:00 76 17 112/48 (69) 96 07/02/19 17:00 84 22 120/54 (76) 96 07/02/19 16:53 82 32 96 Facial 30 07/02/19 16:00 98.2 82 22 131/60 (83) 93 07/02/19 16:00 35 07/02/19 16:00 Nasal Cannula 2.0 07/02/19 15:43 79 07/02/19 15:24 80 26 96 Facial 30 07/02/19 15:00 78 26 98/62 (74) 96 07/02/19 14:53 105/88 07/02/19 14:20 77 26 97 Facial 35 07/02/19 14:00 89 28 133/96 (108) 95 07/02/19 13:00 77 24 114/54 (74) 96 07/02/19 12:00 76 07/02/19 12:00 Nasal Cannula 2.0 07/02/19 12:00 2.0 07/02/19 12:00 98.4 76 22 104/54 (71) 98 07/02/19 11:00 76 26 101/47 (65) 96 Intake and Output 07/02/19 07/03/19 19:00 07:00 Intake Total 2880 ml 645 ml Output Total 1100 ml 1810 ml Balance 1780 ml -1165 ml Free Water 60 ml 100 ml IV Total 755 ml 545 ml Tube Feeding 315 ml Blood Product 250 ml Hemodialysis 1500 ml Output Urine Total 0 ml 10 ml Stool Total 1100 ml 1800 ml Laboratory Tests Test 07/02/19 13:20 07/02/19 16:45 07/03/19 03:25 Hepatitis B Surface Antigen Pending Arterial Blood pH 7.276 (7.350-7.450) Arterial Blood Partial Pressure CO2 39.8 mmHg (35.0-45.0) Arterial Blood Partial Pressure O2 88.1 mmHg (75.0-100.0) Arterial Blood HCO3 18.1 mmol/L (22.0-26.0) L Arterial Blood Oxygen Saturation 95.8 % (95-100) Arterial Blood Base Excess -8.1 (-2-2) L Dave Test Positive White Blood Count 18.7 K/UL (4.8-10.8) H Red Blood Count 2.42 M/UL (4.70-6.10) L Hemoglobin 7.7 G/DL (14.2-18.0) L Hematocrit 23.8 % (42.0-52.0) L Mean Corpuscular Volume 99 FL (80-99) Mean Corpuscular Hemoglobin 32.0 PG (27.0-31.0) H Mean Corpuscular Hemoglobin Concent 32.5 G/DL (32.0-36.0) Red Cell Distribution Width 23.9 % (11.6-14.8) H Platelet Count 108 K/UL (150-450) L Mean Platelet Volume 8.7 FL (6.5-10.1) Neutrophils (%) (Auto) % (45.0-75.0) Lymphocytes (%) (Auto) % (20.0-45.0) Monocytes (%) (Auto) % (1.0-10.0) Eosinophils (%) (Auto) % (0.0-3.0) Basophils (%) (Auto) % (0.0-2.0) Differential Total Cells Counted 100 Neutrophils % (Manual) 77 % (45-75) H Lymphocytes % (Manual) 16 % (20-45) L Monocytes % (Manual) 6 % (1-10) Eosinophils % (Manual) 1 % (0-3) Basophils % (Manual) 0 % (0-2) Band Neutrophils 0 % (0-8) Platelet Estimate Decreased L Platelet Morphology Normal Polychromasia 1+ Hypochromasia 1+ Anisocytosis 3+ Sodium Level 150 MMOL/L (136-145) H Potassium Level 3.2 MMOL/L (3.5-5.1) L Chloride Level 116 MMOL/L (98-107) H Carbon Dioxide Level 18 MMOL/L (21-32) L Anion Gap 16 mmol/L (5-15) H Blood Urea Nitrogen 58 mg/dL (7-18) H Creatinine 5.6 MG/DL (0.55-1.30) H Estimat Glomerular Filtration Rate 11.4 mL/min (>60) Glucose Level 115 MG/DL (74-106) H Uric Acid 8.9 MG/DL (2.6-7.2) H Calcium Level 7.7 MG/DL (8.5-10.1) L Phosphorus Level 4.9 MG/DL (2.5-4.9) Magnesium Level 2.1 MG/DL (1.8-2.4) Total Bilirubin 31.9 MG/DL (0.2-1.0) H Direct Bilirubin 26.2 MG/DL (0.0-0.3) H Aspartate Amino Transf (AST/SGOT) 125 U/L (15-37) H Alanine Aminotransferase (ALT/SGPT) 20 U/L (12-78) Alkaline Phosphatase 226 U/L (46-116) H C-Reactive Protein, Quantitative 11.4 mg/dL (0.00-0.90) H Pro-B-Type Natriuretic Peptide 3102 pg/mL (0-125) H Total Protein 4.7 G/DL (6.4-8.2) L Albumin 1.6 G/DL (3.4-5.0) L Globulin 3.1 g/dL Albumin/Globulin Ratio 0.5 (1.0-2.7) L Objective HEAD AND NECK: No JVD. Sclera is icteric. R IJ Perm Cath LUNGS: Decreased breath sounds. CARDIOVASCULAR: TachyS1 and S2 with no gallop. ABDOMEN: Distended with ascites. EXTREMITIES: 2+ pitting edema. Felice Smith MD Jul 03, 2019 10:51
--- NOTE | 2019-07-03 10:52 | Nephrology Progress Note ---
Assessment/Plan Problem List: (1) End-stage liver disease (2) Hepatorenal syndrome (3) Pancreatitis, alcoholic, acute (4) Acute alcoholic intoxication (5) Anemia (6) Respiratory failure (7) Hypernatremia Assessment Acute alcoholic intoxication End-stage liver disease Hepatorenal syndrome Pancreatitis, alcoholic, acute Anemia Plan since still full code- will attempt dialysis done 07/02- repeat 07/03 DC IV D5w on 06/28/19 met with Brother- Liliana Reyes [employer] Brother will discuss with family regarding DNR and comfort care K and Mag and phos supplement as needed has keith has RT (rectal tube) increase lactulose change IV to D5w 150 cc / h aim to change Zosyn and or decrease the dose discussed with RN Correct lytes IV protonix lactulose Folate and Thiamin per GI transfuse per consultants Subjective ROS Limited/Unobtainable: No Constitutional: Reports: malaise, weakness Objective Objective Last 24 Hour Vital Signs Date Time Temp Pulse Resp B/P (MAP) Pulse Ox O2 Delivery O2 Flow Rate FiO2 07/03/19 10:00 66 26 102/42 (62) 99 07/03/19 09:00 78 23 111/48 (69) 97 07/03/19 08:48 64 29 98 Facial 30 07/03/19 08:00 63 07/03/19 08:00 99.0 63 19 103/51 (68) 98 07/03/19 08:00 Bi-pap 07/03/19 08:00 30 07/03/19 07:00 69 21 97 Bi-Pap 30 07/03/19 07:00 64 21 98/42 (60) 97 07/03/19 07:00 97 Bi-Pap 30 07/03/19 06:59 62 21 97 Facial 30 07/03/19 06:00 65 26 96/40 (58) 97 07/03/19 05:07 73 26 98 Facial 30 07/03/19 05:00 67 22 91/36 (54) 97 07/03/19 04:00 Bi-pap 07/03/19 04:00 99.1 73 24 94/47 (63) 95 07/03/19 04:00 74 07/03/19 04:00 30 07/03/19 03:00 74 17 108/42 (64) 97 07/03/19 02:48 75 29 99 Facial 30 07/03/19 02:00 73 22 103/40 (61) 97 07/03/19 01:03 71 26 98 Facial 30 07/03/19 01:00 72 18 93/40 (57) 97 07/03/19 00:00 Bi-pap 07/03/19 00:00 99.9 73 15 99/42 (61) 98 07/03/19 00:00 69 07/03/19 00:00 30 07/02/19 23:00 74 21 111/66 (81) 99 07/02/19 22:46 72 26 97 Facial 30 07/02/19 22:00 74 24 94/42 (59) 99 07/02/19 21:00 70 20 104/44 (64) 99 07/02/19 20:51 70 30 99 Facial 30 07/02/19 20:00 35 07/02/19 20:00 Bi-pap 07/02/19 20:00 72 07/02/19 20:00 98.3 71 20 96/42 (60) 100 07/02/19 19:00 75 17 93/52 (66) 96 07/02/19 18:48 96 Bi-Pap 30 07/02/19 18:47 71 25 96 Bi-Pap 30 07/02/19 18:47 71 25 96 Facial 30 07/02/19 18:00 76 17 112/48 (69) 96 07/02/19 17:00 84 22 120/54 (76) 96 07/02/19 16:53 82 32 96 Facial 30 07/02/19 16:00 98.2 82 22 131/60 (83) 93 07/02/19 16:00 35 07/02/19 16:00 Nasal Cannula 2.0 07/02/19 15:43 79 07/02/19 15:24 80 26 96 Facial 30 07/02/19 15:00 78 26 98/62 (74) 96 07/02/19 14:53 105/88 07/02/19 14:20 77 26 97 Facial 35 07/02/19 14:00 89 28 133/96 (108) 95 07/02/19 13:00 77 24 114/54 (74) 96 07/02/19 12:00 76 07/02/19 12:00 Nasal Cannula 2.0 07/02/19 12:00 2.0 07/02/19 12:00 98.4 76 22 104/54 (71) 98 07/02/19 11:00 76 26 101/47 (65) 96 Intake and Output 07/02/19 07/03/19 19:00 07:00 Intake Total 2880 ml 645 ml Output Total 1100 ml 1810 ml Balance 1780 ml -1165 ml Free Water 60 ml 100 ml IV Total 755 ml 545 ml Tube Feeding 315 ml Blood Product 250 ml Hemodialysis 1500 ml Output Urine Total 0 ml 10 ml Stool Total 1100 ml 1800 ml Laboratory Tests 07/02/19 13:20: Hepatitis B Surface Antigen [Pending] 07/02/19 16:45: Arterial Blood pH 7.276L, Arterial Blood Partial Pressure CO2 39.8, Arterial Blood Partial Pressure O2 88.1, Arterial Blood HCO3 18.1L, Arterial Blood Oxygen Saturation 95.8, Arterial Blood Base Excess -8.1L, Dave Test Positive 07/03/19 03:25: White Blood Count 18.7H, Red Blood Count 2.42L, Hemoglobin 7.7L, Hematocrit 23.8L, Mean Corpuscular Volume 99, Mean Corpuscular Hemoglobin 32.0H, Mean Corpuscular Hemoglobin Concent 32.5, Red Cell Distribution Width 23.9H, Platelet Count 108L, Mean Platelet Volume 8.7, Neutrophils (%) (Auto) , Lymphocytes (%) (Auto) , Monocytes (%) (Auto) , Eosinophils (%) (Auto) , Basophils (%) (Auto) , Differential Total Cells Counted 100, Neutrophils % ( Manual) 77H, Lymphocytes % (Manual) 16L, Monocytes % (Manual) 6, Eosinophils % ( Manual) 1, Basophils % (Manual) 0, Band Neutrophils 0, Platelet Estimate DecreasedL, Platelet Morphology Normal, Polychromasia 1+, Hypochromasia 1+, Anisocytosis 3+, Sodium Level 150H, Potassium Level 3.2L, Chloride Level 116H, Carbon Dioxide Level 18L, Anion Gap 16H, Blood Urea Nitrogen 58H, Creatinine 5.6H, Estimat Glomerular Filtration Rate 11.4, Glucose Level 115H, Uric Acid 8.9H, Calcium Level 7.7L, Phosphorus Level 4.9, Magnesium Level 2.1, Total Bilirubin 31.9H, Direct Bilirubin 26.2H, Aspartate Amino Transf (AST/SGOT) 125H , Alanine Aminotransferase (ALT/SGPT) 20, Alkaline Phosphatase 226H, C-Reactive Protein, Quantitative 11.4H, Pro-B-Type Natriuretic Peptide 3102H, Total Protein 4.7L, Albumin 1.6L, Globulin 3.1, Albumin/Globulin Ratio 0.5L Height (Feet): 5 Height (Inches): 9.00 Weight (Pounds): 217 General Appearance: mild distress EENT: other - BIPAP - jaundiced Cardiovascular: tachycardia Respiratory/Chest: decreased breath sounds Abdomen: distended Arthur Lay MD Jul 03, 2019 10:52
--- NOTE | 2019-07-03 11:21 | Infectious Diseases Prog Note ---
Assessment/Plan Assessment/Plan IMPRESSION: 1. Sepsis. 2. Systemic inflammatory response syndrome. 3. Tachycardia. 4. Leukocytosis. 5. colitis, 6.Alcoholic pancreatitis, 7.Cirrhosis of liver, 8. Acute renal failure likely hepatorenal syndrome, - ESRD 9.Anemia, 10. thrombocytopenia, 11.hypocalcemia, 12.hypomagnesemia, corrected 13 hypokalemia, corrected 14, Alcohol withdrawal. 15.Metabolic encephalopathy 16. Hypophosphatemia 17. Hypernatremia 18. Hypoxic respiratory failure RECOMMENDATION: continue Rocephin & Flagyl Poor prognosis Subjective ROS Limited/Unobtainable: Yes Respiratory: Reports: other - started on BIPAP Genitourinary: Reports: other - on HD since yesterday Allergies: Coded Allergies: No Known Allergies (Unverified , 06/20/19) Objective Vital Signs Last 24 Hour Vital Signs Date Time Temp Pulse Resp B/P (MAP) Pulse Ox O2 Delivery O2 Flow Rate FiO2 07/03/19 10:00 66 26 102/42 (62) 99 07/03/19 09:00 78 23 111/48 (69) 97 07/03/19 08:48 64 29 98 Facial 30 07/03/19 08:00 63 07/03/19 08:00 99.0 63 19 103/51 (68) 98 07/03/19 08:00 Bi-pap 07/03/19 08:00 30 07/03/19 07:00 69 21 97 Bi-Pap 30 07/03/19 07:00 64 21 98/42 (60) 97 07/03/19 07:00 97 Bi-Pap 30 07/03/19 06:59 62 21 97 Facial 30 07/03/19 06:00 65 26 96/40 (58) 97 07/03/19 05:07 73 26 98 Facial 30 07/03/19 05:00 67 22 91/36 (54) 97 07/03/19 04:00 Bi-pap 07/03/19 04:00 99.1 73 24 94/47 (63) 95 07/03/19 04:00 74 07/03/19 04:00 30 07/03/19 03:00 74 17 108/42 (64) 97 07/03/19 02:48 75 29 99 Facial 30 07/03/19 02:00 73 22 103/40 (61) 97 07/03/19 01:03 71 26 98 Facial 30 07/03/19 01:00 72 18 93/40 (57) 97 07/03/19 00:00 Bi-pap 07/03/19 00:00 99.9 73 15 99/42 (61) 98 07/03/19 00:00 69 07/03/19 00:00 30 07/02/19 23:00 74 21 111/66 (81) 99 07/02/19 22:46 72 26 97 Facial 30 07/02/19 22:00 74 24 94/42 (59) 99 07/02/19 21:00 70 20 104/44 (64) 99 07/02/19 20:51 70 30 99 Facial 30 07/02/19 20:00 35 07/02/19 20:00 Bi-pap 07/02/19 20:00 72 07/02/19 20:00 98.3 71 20 96/42 (60) 100 07/02/19 19:00 75 17 93/52 (66) 96 07/02/19 18:48 96 Bi-Pap 30 07/02/19 18:47 71 25 96 Bi-Pap 30 07/02/19 18:47 71 25 96 Facial 30 07/02/19 18:00 76 17 112/48 (69) 96 07/02/19 17:00 84 22 120/54 (76) 96 07/02/19 16:53 82 32 96 Facial 30 07/02/19 16:00 98.2 82 22 131/60 (83) 93 07/02/19 16:00 35 07/02/19 16:00 Nasal Cannula 2.0 07/02/19 15:43 79 07/02/19 15:24 80 26 96 Facial 30 07/02/19 15:00 78 26 98/62 (74) 96 07/02/19 14:53 105/88 07/02/19 14:20 77 26 97 Facial 35 07/02/19 14:00 89 28 133/96 (108) 95 07/02/19 13:00 77 24 114/54 (74) 96 07/02/19 12:00 76 07/02/19 12:00 Nasal Cannula 2.0 07/02/19 12:00 2.0 07/02/19 12:00 98.4 76 22 104/54 (71) 98 Height (Feet): 5 Height (Inches): 9.00 Weight (Pounds): 217 HEENT: mucous membranes moist, other - icterus Respiratory/Chest: rhonchi - bilaterally, other - on BIPAP Cardiovascular: normal rate, other - left arm PICC, RIJ HD line Abdomen: distended, other - NG tube Extremities: other - edema Neurologic/Psychiatric: unresponsiveness, other - lethargic Laboratory Tests Test 07/02/19 13:20 07/02/19 16:45 07/03/19 03:25 Hepatitis B Surface Antigen Pending Arterial Blood pH 7.276 (7.350-7.450) Arterial Blood Partial Pressure CO2 39.8 mmHg (35.0-45.0) Arterial Blood Partial Pressure O2 88.1 mmHg (75.0-100.0) Arterial Blood HCO3 18.1 mmol/L (22.0-26.0) L Arterial Blood Oxygen Saturation 95.8 % (95-100) Arterial Blood Base Excess -8.1 (-2-2) L Dave Test Positive White Blood Count 18.7 K/UL (4.8-10.8) H Red Blood Count 2.42 M/UL (4.70-6.10) L Hemoglobin 7.7 G/DL (14.2-18.0) L Hematocrit 23.8 % (42.0-52.0) L Mean Corpuscular Volume 99 FL (80-99) Mean Corpuscular Hemoglobin 32.0 PG (27.0-31.0) H Mean Corpuscular Hemoglobin Concent 32.5 G/DL (32.0-36.0) Red Cell Distribution Width 23.9 % (11.6-14.8) H Platelet Count 108 K/UL (150-450) L Mean Platelet Volume 8.7 FL (6.5-10.1) Neutrophils (%) (Auto) % (45.0-75.0) Lymphocytes (%) (Auto) % (20.0-45.0) Monocytes (%) (Auto) % (1.0-10.0) Eosinophils (%) (Auto) % (0.0-3.0) Basophils (%) (Auto) % (0.0-2.0) Differential Total Cells Counted 100 Neutrophils % (Manual) 77 % (45-75) H Lymphocytes % (Manual) 16 % (20-45) L Monocytes % (Manual) 6 % (1-10) Eosinophils % (Manual) 1 % (0-3) Basophils % (Manual) 0 % (0-2) Band Neutrophils 0 % (0-8) Platelet Estimate Decreased L Platelet Morphology Normal Polychromasia 1+ Hypochromasia 1+ Anisocytosis 3+ Sodium Level 150 MMOL/L (136-145) H Potassium Level 3.2 MMOL/L (3.5-5.1) L Chloride Level 116 MMOL/L (98-107) H Carbon Dioxide Level 18 MMOL/L (21-32) L Anion Gap 16 mmol/L (5-15) H Blood Urea Nitrogen 58 mg/dL (7-18) H Creatinine 5.6 MG/DL (0.55-1.30) H Estimat Glomerular Filtration Rate 11.4 mL/min (>60) Glucose Level 115 MG/DL (74-106) H Uric Acid 8.9 MG/DL (2.6-7.2) H Calcium Level 7.7 MG/DL (8.5-10.1) L Phosphorus Level 4.9 MG/DL (2.5-4.9) Magnesium Level 2.1 MG/DL (1.8-2.4) Total Bilirubin 31.9 MG/DL (0.2-1.0) H Direct Bilirubin 26.2 MG/DL (0.0-0.3) H Aspartate Amino Transf (AST/SGOT) 125 U/L (15-37) H Alanine Aminotransferase (ALT/SGPT) 20 U/L (12-78) Alkaline Phosphatase 226 U/L (46-116) H C-Reactive Protein, Quantitative 11.4 mg/dL (0.00-0.90) H Pro-B-Type Natriuretic Peptide 3102 pg/mL (0-125) H Total Protein 4.7 G/DL (6.4-8.2) L Albumin 1.6 G/DL (3.4-5.0) L Globulin 3.1 g/dL Albumin/Globulin Ratio 0.5 (1.0-2.7) L Current Medications Medications (Trade) Dose Ordered Sig/Gabriela Route PRN Reason Start Time Stop Time Status Last Admin Dose Admin Ceftriaxone Sodium 1 gm/ Dextrose 55 ml @ 110 mls/hr DAILY IVPB 06/27/19 13:00 07/08/19 12:59 07/03/19 08:10 Chlorhexidine Gluconate (Emilie-Hex 2%) 1 applic DAILY@2000 TOPIC 06/26/19 20:00 07/26/19 19:59 07/02/19 20:27 Dopamine HCl/ Dextrose 250 ml @ 0 mls/hr Q24H IV 06/30/19 14:53 07/30/19 14:52 Epoetin Michael (Epoetin Michael(ESRD on dialysis)) 2,000 unit SUBQ 07/02/19 21:00 08/01/19 20:59 07/02/19 20:28 Epoetin Michael (Epoetin Michael(ESRD on dialysis)) 3,000 unit SUBQ 07/02/19 21:00 08/01/19 20:59 07/02/19 20:28 Heparin Sodium/ Sodium Chloride (Heparin 1000 units/500ml Premix) 1,000 unit ONCE PRN IV HD CATH PLACEMENT 07/02/19 09:15 07/03/19 23:59 Lactulose (Cephulac) 30 gm FOUR TIMES A DAY NG 07/01/19 09:00 07/20/19 12:59 07/03/19 08:10 Lidocaine HCl (Xylocaine 1% 30ml) 30 ml ONCE PRN INJ HD CATH PLACEMENT 07/02/19 10:00 07/03/19 23:59 Metronidazole (Flagyl) 500 mg Q8HR NG 06/27/19 14:00 07/08/19 13:59 07/03/19 05:37 Midodrine (Pro-Amatine) 10 mg EVERY 8 HOURS ORAL 07/01/19 09:00 07/29/19 08:59 07/03/19 05:37 Octreotide Acetate 500 mcg/ Sodium Chloride 500 ml @ 50 mls/hr Q10H IV 07/01/19 09:00 07/31/19 08:59 07/03/19 10:48 Pantoprazole (Protonix) 40 mg EVERY 12 HOURS IVP 06/21/19 21:00 07/20/19 20:59 07/03/19 08:10 Ilia Chakraborty MD Jul 03, 2019 11:21
--- NOTE | 2019-07-03 11:30 | Hematology/Onc Progress Note ---
Assessment/Plan Assessment/Plan Assessment and Recs: # Thrombocytopenia - potential causes multifactorial, does have a history of etoh abuse, cirrhosis of the liver, hepatosplenomegaly, portal HTN, coagulopathy noted as well, likely oscillatory pattern can be due to abx as well --> Hep panel and HIV ordered (NEG) --> US abd does show, portal htn and cirrhosis ++ --> Peripheral smear ordered to evaluate for blasts /schistocytes reviewed and is negative --> abx and other meds have been reviewed --> ok for ppx if plt >50k w/ either heparin or lovenox --> Transfuse if Plt < 20k and fever, or if Plt < 10k without fever --> plt trend 80-->97-->117-->157k->216k-->107k-->72k-->68k-->109k-->108k # Anemia of chronic disease due to underlying chronic medical issues, multifactorial (myelosuprresion noted) --> Anemia workup has been reviewed, ferritin 297 --> EPOGEN HAS BEEN ORDERED WITH HD --> Hgb goal >7. Transfuse prn. --> Epogen or iron at this time is not particularly indicated --> Medications have been reviewed --> low threshold for gi evaluation in case has occult + --> hgb trend: 7.7-->8.2-->9->8.4-->8.3-->8.2-->8-->7.4->7.3-->7.7 --> serum electrophoresis shows no m-spike 06/27 # Coagulopathy due to cirrhosis --> give Vitk as needed # Leukocytosis with sepsis is on abx --> ID following, appreciate recs --> wbc trend: 17k-->13.9-->19.5-->18.7 --> FLAGYL and CTX # Acute alcoholic intoxication --> etoh abuse history --> thiamine, folic acid, ivf # End-stage liver disease --> Hepatorenal syndrome r/o with renal, albumin prn # Pancreatitis, alcoholic, acute # Tachycardia # Dvt ppx with scds given low plts The timing of this note does not necessarily reflect the time of the patient was seen. GREATLY APPRECIATE CONSULTATION. Subjective Allergies: Coded Allergies: No Known Allergies (Unverified , 06/20/19) Subjective 06/21: low k, ferritin 297, h/h stable, afebrile, blood transfused 06/22: in icu, on restraints, labs reviewed, no f/c, imaging reviewed 06/23: pain meds given, remains in icu, again in restraints, bili higher, inr as well, given vitk 06/25: no fevers, no chills, no bleeding, confused in bed in icu 06/26: no events to report, no bleeding, remains in icu, ++ bipap 06/27: icu,s/p paracentesis yesterday, off pressors, h/h stable 06/28: on ctx/flagyl, remains confused, no bleeding, plt is lower 06/29: no f/c, on abx, no acute events, no distress, labs reviewed 06/30: remains in the icu, on abx, no f/c, scds+ 07/02: remains in the icu, no fevers or chills, prbc ordered, as well as epo 07/03: remains in the icu, on restraints, on abx, labs noted, vs stable, no acute events Objective Objective Current Medications Medications (Trade) Dose Ordered Sig/Gabriela Route PRN Reason Start Time Stop Time Status Last Admin Dose Admin Ceftriaxone Sodium 1 gm/ Dextrose 55 ml @ 110 mls/hr DAILY IVPB 06/27/19 13:00 07/08/19 12:59 07/03/19 08:10 Chlorhexidine Gluconate (Emilie-Hex 2%) 1 applic DAILY@1999 TOPIC 06/26/19 20:00 07/26/19 19:59 07/02/19 20:27 Dopamine HCl/ Dextrose 250 ml @ 0 mls/hr Q24H IV 06/30/19 14:53 07/30/19 14:52 Epoetin Michael (Epoetin Michael(ESRD on dialysis)) 2,000 unit TUE-TUE-TUE SUBQ 07/02/19 21:00 08/01/19 20:59 07/02/19 20:28 Epoetin Michael (Epoetin Michael(ESRD on dialysis)) 3,000 unit TUE-TUE-TUE SUBQ 07/02/19 21:00 08/01/19 20:59 07/02/19 20:28 Heparin Sodium/ Sodium Chloride (Heparin 1000 units/500ml Premix) 1,000 unit ONCE PRN IV HD CATH PLACEMENT 07/02/19 09:15 07/03/19 23:59 Lactulose (Cephulac) 30 gm FOUR TIMES A DAY NG 07/01/19 09:00 07/20/19 12:59 07/03/19 08:10 Lidocaine HCl (Xylocaine 1% 30ml) 30 ml ONCE PRN INJ HD CATH PLACEMENT 07/02/19 10:00 07/03/19 23:59 Metronidazole (Flagyl) 500 mg Q8HR NG 06/27/19 14:00 07/08/19 13:59 07/03/19 05:37 Midodrine (Pro-Amatine) 10 mg EVERY 8 HOURS ORAL 07/01/19 09:00 07/29/19 08:59 07/03/19 05:37 Octreotide Acetate 500 mcg/ Sodium Chloride 500 ml @ 50 mls/hr Q10H IV 07/01/19 09:00 07/31/19 08:59 07/03/19 10:48 Pantoprazole (Protonix) 40 mg EVERY 12 HOURS IVP 06/21/19 21:00 07/20/19 20:59 07/03/19 08:10 Last 24 Hour Vital Signs Date Time Temp Pulse Resp B/P (MAP) Pulse Ox O2 Delivery O2 Flow Rate FiO2 07/03/19 11:19 67 30 97 Facial 30 07/03/19 11:00 67 26 101/46 (64) 98 07/03/19 10:00 66 26 102/42 (62) 99 07/03/19 09:00 78 23 111/48 (69) 97 07/03/19 08:48 64 29 98 Facial 30 07/03/19 08:00 63 07/03/19 08:00 99.0 63 19 103/51 (68) 98 07/03/19 08:00 Bi-pap 07/03/19 08:00 30 07/03/19 07:00 69 21 97 Bi-Pap 30 07/03/19 07:00 64 21 98/42 (60) 97 07/03/19 07:00 97 Bi-Pap 30 07/03/19 06:59 62 21 97 Facial 30 07/03/19 06:00 65 26 96/40 (58) 97 07/03/19 05:07 73 26 98 Facial 30 07/03/19 05:00 67 22 91/36 (54) 97 07/03/19 04:00 Bi-pap 07/03/19 04:00 99.1 73 24 94/47 (63) 95 07/03/19 04:00 74 07/03/19 04:00 30 07/03/19 03:00 74 17 108/42 (64) 97 07/03/19 02:48 75 29 99 Facial 30 07/03/19 02:00 73 22 103/40 (61) 97 07/03/19 01:03 71 26 98 Facial 30 07/03/19 01:00 72 18 93/40 (57) 97 07/03/19 00:00 Bi-pap 07/03/19 00:00 99.9 73 15 99/42 (61) 98 07/03/19 00:00 69 07/03/19 00:00 30 07/02/19 23:00 74 21 111/66 (81) 99 07/02/19 22:46 72 26 97 Facial 30 07/02/19 22:00 74 24 94/42 (59) 99 07/02/19 21:00 70 20 104/44 (64) 99 07/02/19 20:51 70 30 99 Facial 30 07/02/19 20:00 35 07/02/19 20:00 Bi-pap 07/02/19 20:00 72 07/02/19 20:00 98.3 71 20 96/42 (60) 100 07/02/19 19:00 75 17 93/52 (66) 96 07/02/19 18:48 96 Bi-Pap 30 07/02/19 18:47 71 25 96 Bi-Pap 30 07/02/19 18:47 71 25 96 Facial 30 07/02/19 18:00 76 17 112/48 (69) 96 07/02/19 17:00 84 22 120/54 (76) 96 07/02/19 16:53 82 32 96 Facial 30 07/02/19 16:00 98.2 82 22 131/60 (83) 93 07/02/19 16:00 35 07/02/19 16:00 Nasal Cannula 2.0 07/02/19 15:43 79 07/02/19 15:24 80 26 96 Facial 30 07/02/19 15:00 78 26 98/62 (74) 96 07/02/19 14:53 105/88 07/02/19 14:20 77 26 97 Facial 35 07/02/19 14:00 89 28 133/96 (108) 95 07/02/19 13:00 77 24 114/54 (74) 96 07/02/19 12:00 76 07/02/19 12:00 Nasal Cannula 2.0 07/02/19 12:00 2.0 07/02/19 12:00 98.4 76 22 104/54 (71) 98 07/02/19 11:00 76 26 101/47 (65) 96 07/02/19 10:00 77 21 130/61 (84) 97 07/02/19 09:00 83 20 134/58 (83) 98 07/02/19 08:00 2.0 07/02/19 08:00 98.1 66 22 114/51 (72) 97 07/02/19 08:00 Nasal Cannula 2.0 07/02/19 08:00 67 07/02/19 07:26 95 Nasal Cannula 2.0 28 07/02/19 07:26 70 20 95 Nasal Cannula 2.0 28 07/02/19 07:00 70 24 113/46 (68) 95 07/02/19 06:00 67 28 101/55 (70) 96 07/02/19 05:00 63 21 91/42 (58) 97 07/02/19 04:00 2.0 07/02/19 04:00 Nasal Cannula 2.0 07/02/19 04:00 63 07/02/19 04:00 99.6 68 30 109/55 (73) 97 07/02/19 03:00 67 28 89/47 (61) 96 07/02/19 02:00 70 27 104/51 (68) 97 07/02/19 01:00 81 23 96/53 (67) 97 07/02/19 00:00 99.1 66 27 100/52 (68) 99 07/02/19 00:00 67 07/02/19 00:00 2.0 07/02/19 00:00 Nasal Cannula 2.0 07/01/19 23:00 67 24 89/55 (66) 99 07/01/19 22:00 71 26 96/49 (65) 98 07/01/19 21:00 75 31 92/47 (62) 96 07/01/19 20:00 75 07/01/19 20:00 Nasal Cannula 2.0 07/01/19 20:00 98.9 78 24 111/41 (64) 98 07/01/19 20:00 2.0 07/01/19 19:05 82 23 96 Nasal Cannula 2.0 28 07/01/19 19:05 96 Nasal Cannula 2.0 28 07/01/19 19:00 84 23 102/72 (82) 95 07/01/19 18:00 70 28 95/44 (61) 98 07/01/19 17:00 70 27 102/47 (65) 98 07/01/19 16:00 68 07/01/19 16:00 97.8 69 27 90/52 (65) 98 07/01/19 16:00 Nasal Cannula 2.0 07/01/19 16:00 2.0 07/01/19 15:00 69 28 106/50 (68) 98 07/01/19 14:00 70 28 97/43 (61) 98 07/01/19 13:00 67 28 97/41 (59) 98 07/01/19 12:00 98.6 66 27 109/51 (70) 99 07/01/19 12:00 74 07/01/19 12:00 Nasal Cannula 2.0 07/01/19 12:00 2.0 Intake and Output 07/02/19 07/03/19 19:00 07:00 Intake Total 2880 ml 645 ml Output Total 1100 ml 1810 ml Balance 1780 ml -1165 ml Free Water 60 ml 100 ml IV Total 755 ml 545 ml Tube Feeding 315 ml Blood Product 250 ml Hemodialysis 1500 ml Output Urine Total 0 ml 10 ml Stool Total 1100 ml 1800 ml Labs Test 06/30/19 16:53 07/01/19 04:30 07/02/19 04:00 07/02/19 08:20 Sodium Level 147 MMOL/L (136-145) 146 MMOL/L (136-145) 145 MMOL/L (136-145) White Blood Count 16.3 K/UL (4.8-10.8) 17.8 K/UL (4.8-10.8) Red Blood Count 2.55 M/UL (4.70-6.10) 2.27 M/UL (4.70-6.10) Hemoglobin 8.0 G/DL (14.2-18.0) 7.3 G/DL (14.2-18.0) Hematocrit 26.0 % (42.0-52.0) 23.0 % (42.0-52.0) Mean Corpuscular Volume 102 FL (80-99) 101 FL (80-99) Mean Corpuscular Hemoglobin 31.3 PG (27.0-31.0) 32.1 PG (27.0-31.0) Mean Corpuscular Hemoglobin Concent 30.8 G/DL (32.0-36.0) 31.7 G/DL (32.0-36.0) Red Cell Distribution Width 23.6 % (11.6-14.8) 24.2 % (11.6-14.8) Platelet Count 73 K/UL (150-450) 109 K/UL (150-450) Mean Platelet Volume 9.7 FL (6.5-10.1) 10.2 FL (6.5-10.1) Neutrophils (%) (Auto) % (45.0-75.0) % (45.0-75.0) Lymphocytes (%) (Auto) % (20.0-45.0) % (20.0-45.0) Monocytes (%) (Auto) % (1.0-10.0) % (1.0-10.0) Eosinophils (%) (Auto) % (0.0-3.0) % (0.0-3.0) Basophils (%) (Auto) % (0.0-2.0) % (0.0-2.0) Differential Total Cells Counted 100 100 Neutrophils % (Manual) 81 % (45-75) 73 % (45-75) Lymphocytes % (Manual) 9 % (20-45) 9 % (20-45) Monocytes % (Manual) 4 % (1-10) 6 % (1-10) Eosinophils % (Manual) 1 % (0-3) 3 % (0-3) Basophils % (Manual) 0 % (0-2) 1 % (0-2) Band Neutrophils 5 % (0-8) 6 % (0-8) Platelet Estimate Decreased Decreased Platelet Morphology Normal Normal Hypochromasia 1+ 2+ Anisocytosis 2+ 3+ Macrocytosis 1+ 2+ Potassium Level 3.7 MMOL/L (3.5-5.1) 3.7 MMOL/L (3.5-5.1) Chloride Level 118 MMOL/L (98-107) 117 MMOL/L (98-107) Carbon Dioxide Level 14 MMOL/L (21-32) 12 MMOL/L (21-32) Anion Gap 15 mmol/L (5-15) 16 mmol/L (5-15) Blood Urea Nitrogen 64 mg/dL (7-18) 72 mg/dL (7-18) Creatinine 4.6 MG/DL (0.55-1.30) 6.1 MG/DL (0.55-1.30) Estimat Glomerular Filtration Rate 14.3 mL/min (>60) 10.3 mL/min (>60) Glucose Level 121 MG/DL (74-106) 138 MG/DL (74-106) Calcium Level 8.0 MG/DL (8.5-10.1) 7.6 MG/DL (8.5-10.1) Myelocytes % 2 % (0-0) Nucleated Red Blood Cells 1 /100 WBC Polychromasia 1+ Ovalocytes Occasional Ranjit Cells 1+ Prothrombin Time 17.8 SEC (9.30-11.50) Prothromb Time International Ratio 1.7 (0.9-1.1) Phosphorus Level 5.7 MG/DL (2.5-4.9) Magnesium Level 2.1 MG/DL (1.8-2.4) Total Bilirubin 33.5 MG/DL (0.2-1.0) Direct Bilirubin 28.3 MG/DL (0.0-0.3) Aspartate Amino Transf (AST/SGOT) 102 U/L (15-37) Alanine Aminotransferase (ALT/SGPT) 19 U/L (12-78) Alkaline Phosphatase 226 U/L (46-116) Ammonia 73 umol/L (11-32) Total Protein 5.0 G/DL (6.4-8.2) Albumin 1.7 G/DL (3.4-5.0) Globulin 3.3 g/dL Albumin/Globulin Ratio 0.5 (1.0-2.7) Arterial Blood pH 7.157 (7.350-7.450) Arterial Blood Partial Pressure CO2 28.2 mmHg (35.0-45.0) Arterial Blood Partial Pressure O2 85.4 mmHg (75.0-100.0) Arterial Blood HCO3 9.8 mmol/L (22.0-26.0) Arterial Blood Oxygen Saturation 94.0 % (95-100) Arterial Blood Base Excess -17.5 (-2-2) Dave Test Positive Test 07/02/19 09:00 07/02/19 13:20 07/02/19 16:45 07/03/19 03:25 Activated Partial Thromboplast Time 38 SEC (23-33) Arterial Blood pH 7.276 (7.350-7.450) Arterial Blood Partial Pressure CO2 39.8 mmHg (35.0-45.0) Arterial Blood Partial Pressure O2 88.1 mmHg (75.0-100.0) Arterial Blood HCO3 18.1 mmol/L (22.0-26.0) Arterial Blood Oxygen Saturation 95.8 % (95-100) Arterial Blood Base Excess -8.1 (-2-2) Dave Test Positive White Blood Count 18.7 K/UL (4.8-10.8) Red Blood Count 2.42 M/UL (4.70-6.10) Hemoglobin 7.7 G/DL (14.2-18.0) Hematocrit 23.8 % (42.0-52.0) Mean Corpuscular Volume 99 FL (80-99) Mean Corpuscular Hemoglobin 32.0 PG (27.0-31.0) Mean Corpuscular Hemoglobin Concent 32.5 G/DL (32.0-36.0) Red Cell Distribution Width 23.9 % (11.6-14.8) Platelet Count 108 K/UL (150-450) Mean Platelet Volume 8.7 FL (6.5-10.1) Neutrophils (%) (Auto) % (45.0-75.0) Lymphocytes (%) (Auto) % (20.0-45.0) Monocytes (%) (Auto) % (1.0-10.0) Eosinophils (%) (Auto) % (0.0-3.0) Basophils (%) (Auto) % (0.0-2.0) Differential Total Cells Counted 100 Neutrophils % (Manual) 77 % (45-75) Lymphocytes % (Manual) 16 % (20-45) Monocytes % (Manual) 6 % (1-10) Eosinophils % (Manual) 1 % (0-3) Basophils % (Manual) 0 % (0-2) Band Neutrophils 0 % (0-8) Platelet Estimate Decreased Platelet Morphology Normal Polychromasia 1+ Hypochromasia 1+ Anisocytosis 3+ Sodium Level 150 MMOL/L (136-145) Potassium Level 3.2 MMOL/L (3.5-5.1) Chloride Level 116 MMOL/L (98-107) Carbon Dioxide Level 18 MMOL/L (21-32) Anion Gap 16 mmol/L (5-15) Blood Urea Nitrogen 58 mg/dL (7-18) Creatinine 5.6 MG/DL (0.55-1.30) Estimat Glomerular Filtration Rate 11.4 mL/min (>60) Glucose Level 115 MG/DL (74-106) Uric Acid 8.9 MG/DL (2.6-7.2) Calcium Level 7.7 MG/DL (8.5-10.1) Phosphorus Level 4.9 MG/DL (2.5-4.9) Magnesium Level 2.1 MG/DL (1.8-2.4) Total Bilirubin 31.9 MG/DL (0.2-1.0) Direct Bilirubin 26.2 MG/DL (0.0-0.3) Aspartate Amino Transf (AST/SGOT) 125 U/L (15-37) Alanine Aminotransferase (ALT/SGPT) 20 U/L (12-78) Alkaline Phosphatase 226 U/L (46-116) C-Reactive Protein, Quantitative 11.4 mg/dL (0.00-0.90) Pro-B-Type Natriuretic Peptide 3102 pg/mL (0-125) Total Protein 4.7 G/DL (6.4-8.2) Albumin 1.6 G/DL (3.4-5.0) Globulin 3.1 g/dL Albumin/Globulin Ratio 0.5 (1.0-2.7) Height (Feet): 5 Height (Inches): 9.00 Weight (Pounds): 217 Objective Physical Exam: Vitals: reviewed General Appearance: NAD HEENT: normocephalic, atraumatic ++ icterus jaundice, ng+ Neck: non-tender, normal alignment Respiratory/Chest: normal breath sounds bilaterally++ nc Cardiovascular/Chest: normal peripheral pulses, normal rate Abdomen: normal bowel sounds, soft,+ peg Extremities: normal range of motion Marty Kebede MD Jul 03, 2019 11:30
--- NOTE | 2019-07-03 13:58 | GI Progress Note ---
Assessment/Plan Problems: (1) End-stage liver disease ICD Codes: K72.90 - Hepatic failure, unspecified without coma SNOMED: 450295095 (2) Pancreatitis, alcoholic, acute ICD Codes: K85.20 - Alcohol induced acute pancreatitis without necrosis or infection SNOMED: 774097003, 6988110 Qualifiers: Qualified Codes: K85.20 - Alcohol induced acute pancreatitis without necrosis or infection (3) Hepatorenal syndrome ICD Codes: K76.7 - Hepatorenal syndrome SNOMED: 75916737, 1439957 (4) Acute alcoholic intoxication ICD Codes: F10.929 - Alcohol use, unspecified with intoxication, unspecified SNOMED: 23493824, 0979983 Qualifiers: Qualified Codes: F10.920 - Alcohol use, unspecified with intoxication, uncomplicated (5) Anemia ICD Codes: D64.9 - Anemia, unspecified SNOMED: 086335089 Qualifiers: Qualified Codes: D64.9 - Anemia, unspecified Status: unchanged Status Narrative Discussed with Dr. Esposito. Assessment/Plan MELD score is 31, poor prognosis discriminant factor of 16, defer glucocorticoid therapy s/p paracentesis yielding 400cc, r/o SBP iv thiamine NPO IVF per nephrology repeat labs cont lactulose + xifaxan octreotide gtt s/p blood transfusion electrolyte correction The patient was seen and examined at bedside and all new and available data was reviewed in the patients chart. I agree with the above findings, impression and plan. (Patient seen earlier today. Signature stamp does not reflect patient encounter time.). - Merlin Esposito MD Subjective Subjective limited Objective Last 24 Hour Vital Signs Date Time Temp Pulse Resp B/P (MAP) Pulse Ox O2 Delivery O2 Flow Rate FiO2 07/03/19 13:49 69 28 100 Facial 30 07/03/19 13:00 66 23 91/41 (58) 97 07/03/19 12:00 68 07/03/19 12:00 30 07/03/19 12:00 Bi-pap 07/03/19 12:00 98.8 68 24 102/45 (64) 98 07/03/19 11:19 67 30 97 Facial 30 07/03/19 11:00 67 26 101/46 (64) 98 07/03/19 10:00 66 26 102/42 (62) 99 07/03/19 09:00 78 23 111/48 (69) 97 07/03/19 08:48 64 29 98 Facial 30 07/03/19 08:00 63 07/03/19 08:00 99.0 63 19 103/51 (68) 98 07/03/19 08:00 Bi-pap 07/03/19 08:00 30 07/03/19 07:00 69 21 97 Bi-Pap 30 07/03/19 07:00 64 21 98/42 (60) 97 07/03/19 07:00 97 Bi-Pap 30 07/03/19 06:59 62 21 97 Facial 30 07/03/19 06:00 65 26 96/40 (58) 97 07/03/19 05:07 73 26 98 Facial 30 07/03/19 05:00 67 22 91/36 (54) 97 07/03/19 04:00 Bi-pap 07/03/19 04:00 99.1 73 24 94/47 (63) 95 07/03/19 04:00 74 07/03/19 04:00 30 07/03/19 03:00 74 17 108/42 (64) 97 07/03/19 02:48 75 29 99 Facial 30 07/03/19 02:00 73 22 103/40 (61) 97 07/03/19 01:03 71 26 98 Facial 30 07/03/19 01:00 72 18 93/40 (57) 97 07/03/19 00:00 Bi-pap 07/03/19 00:00 99.9 73 15 99/42 (61) 98 07/03/19 00:00 69 07/03/19 00:00 30 07/02/19 23:00 74 21 111/66 (81) 99 07/02/19 22:46 72 26 97 Facial 30 07/02/19 22:00 74 24 94/42 (59) 99 07/02/19 21:00 70 20 104/44 (64) 99 07/02/19 20:51 70 30 99 Facial 30 07/02/19 20:00 35 07/02/19 20:00 Bi-pap 07/02/19 20:00 72 07/02/19 20:00 98.3 71 20 96/42 (60) 100 07/02/19 19:00 75 17 93/52 (66) 96 07/02/19 18:48 96 Bi-Pap 30 07/02/19 18:47 71 25 96 Bi-Pap 30 07/02/19 18:47 71 25 96 Facial 30 07/02/19 18:00 76 17 112/48 (69) 96 07/02/19 17:00 84 22 120/54 (76) 96 07/02/19 16:53 82 32 96 Facial 30 07/02/19 16:00 98.2 82 22 131/60 (83) 93 07/02/19 16:00 35 07/02/19 16:00 Nasal Cannula 2.0 07/02/19 15:43 79 07/02/19 15:24 80 26 96 Facial 30 07/02/19 15:00 78 26 98/62 (74) 96 07/02/19 14:53 105/88 07/02/19 14:20 77 26 97 Facial 35 07/02/19 14:00 89 28 133/96 (108) 95 Intake and Output 07/02/19 07/03/19 19:00 07:00 Intake Total 2880 ml 645 ml Output Total 1100 ml 1810 ml Balance 1780 ml -1165 ml Free Water 60 ml 100 ml IV Total 755 ml 545 ml Tube Feeding 315 ml Blood Product 250 ml Hemodialysis 1500 ml Output Urine Total 0 ml 10 ml Stool Total 1100 ml 1800 ml Laboratory Tests Test 07/02/19 16:45 07/03/19 03:25 Arterial Blood pH 7.276 (7.350-7.450) Arterial Blood Partial Pressure CO2 39.8 mmHg (35.0-45.0) Arterial Blood Partial Pressure O2 88.1 mmHg (75.0-100.0) Arterial Blood HCO3 18.1 mmol/L (22.0-26.0) L Arterial Blood Oxygen Saturation 95.8 % (95-100) Arterial Blood Base Excess -8.1 (-2-2) L Dave Test Positive White Blood Count 18.7 K/UL (4.8-10.8) H Red Blood Count 2.42 M/UL (4.70-6.10) L Hemoglobin 7.7 G/DL (14.2-18.0) L Hematocrit 23.8 % (42.0-52.0) L Mean Corpuscular Volume 99 FL (80-99) Mean Corpuscular Hemoglobin 32.0 PG (27.0-31.0) H Mean Corpuscular Hemoglobin Concent 32.5 G/DL (32.0-36.0) Red Cell Distribution Width 23.9 % (11.6-14.8) H Platelet Count 108 K/UL (150-450) L Mean Platelet Volume 8.7 FL (6.5-10.1) Neutrophils (%) (Auto) % (45.0-75.0) Lymphocytes (%) (Auto) % (20.0-45.0) Monocytes (%) (Auto) % (1.0-10.0) Eosinophils (%) (Auto) % (0.0-3.0) Basophils (%) (Auto) % (0.0-2.0) Differential Total Cells Counted 100 Neutrophils % (Manual) 77 % (45-75) H Lymphocytes % (Manual) 16 % (20-45) L Monocytes % (Manual) 6 % (1-10) Eosinophils % (Manual) 1 % (0-3) Basophils % (Manual) 0 % (0-2) Band Neutrophils 0 % (0-8) Platelet Estimate Decreased L Platelet Morphology Normal Polychromasia 1+ Hypochromasia 1+ Anisocytosis 3+ Sodium Level 150 MMOL/L (136-145) H Potassium Level 3.2 MMOL/L (3.5-5.1) L Chloride Level 116 MMOL/L (98-107) H Carbon Dioxide Level 18 MMOL/L (21-32) L Anion Gap 16 mmol/L (5-15) H Blood Urea Nitrogen 58 mg/dL (7-18) H Creatinine 5.6 MG/DL (0.55-1.30) H Estimat Glomerular Filtration Rate 11.4 mL/min (>60) Glucose Level 115 MG/DL (74-106) H Uric Acid 8.9 MG/DL (2.6-7.2) H Calcium Level 7.7 MG/DL (8.5-10.1) L Phosphorus Level 4.9 MG/DL (2.5-4.9) Magnesium Level 2.1 MG/DL (1.8-2.4) Total Bilirubin 31.9 MG/DL (0.2-1.0) H Direct Bilirubin 26.2 MG/DL (0.0-0.3) H Aspartate Amino Transf (AST/SGOT) 125 U/L (15-37) H Alanine Aminotransferase (ALT/SGPT) 20 U/L (12-78) Alkaline Phosphatase 226 U/L (46-116) H C-Reactive Protein, Quantitative 11.4 mg/dL (0.00-0.90) H Pro-B-Type Natriuretic Peptide 3102 pg/mL (0-125) H Total Protein 4.7 G/DL (6.4-8.2) L Albumin 1.6 G/DL (3.4-5.0) L Globulin 3.1 g/dL Albumin/Globulin Ratio 0.5 (1.0-2.7) L Height (Feet): 5 Height (Inches): 9.00 Weight (Pounds): 217 General Appearance: lethargic Cardiovascular: normal rate Respiratory/Chest: other - BIPAP Abdominal Exam: other - NGT Ayo Lamar NP Jul 03, 2019 13:58
[2019-07-03] MEDS: DOPamine 400mg/250ml 250 ML IV SCH (14:53)
--- NOTE | 2019-07-03 15:10 | Pulmonolgy Critical Care Note ---
Critical Care - Asmt/Plan Assessment/Plan: Pulmonary CCM Progress HPI This is a 39-year-old male who is an alcoholic with significant fatty liver on abdominal CT and alcoholic hepatitis, DF 16, not candidate for steroids currently per GI. He has been drinking heavily for 3 months straight. He stopped drinking [employer]. Noted to have Hepatic Encephalopathy and Hepatorenal Syndrome. No bleeding. No nausea no vomiting. Nothing made it better. Movement or exertion makes it worse. Noted to have significant hypokalemia and alkalosis, evidence of sepsis, source unclear - some bacteria in urine, mid ascites - possible SBP, dilated Gallbladder On BiPAP, NGT feeds on hold, on Lactulose Na improving, renal function worse, now on Hemodialysis for worsening acidosis, uremia Less confused BP stable, Midodrine, PRN dopamine to maintain BP Allergies: No Known Allergies Past Medical History: Alcohol abuse All Other Systems: negative except mentioned in HPI Physical Exam Vital Signs Noted General Appearance: Jaundiced, awake Head: normocephalic, atraumatic, HD catheter Eyes: bilateral eye PERRL, bilateral eye EOMI, bilateral eye scleral icterus ENT: moist mm Neck: no masses, no LN Respiratory: chest non-tender, lungs clear, normal breath sounds Cardiovascular: regular rate, rhythm, Normal HS1, HS2, no murmur, tachycardia Gastrointestinal: Obese, hepatomegaly, some tenderness RUQ, normal bowel sounds , no mass, no rebound Musculoskeletal: moves all limbs Neurologic: responds to commands, awake Skin: jaundiced, moderate edema Impression: Acute alcoholic intoxication Severe Sepsis Alcoholic Hepatitis Possible Cirrhosis Metabolic and respiratory alkalosis Possible Portal Hypertension Hepatorenal syndrome - worsening renal function Hypernatremia Pancreatitis, alcoholic, acute Anemia Monitor CXR/ABG Plan ICU management NPO except meds IV antibiotics per ID Aspiration precautions BiPAP PRN May need intubation for airway protection GI/Renal following HD per Nephrology Pressors PRN Transfuse PRN Thiamine Monitor labs Adjust FIO2 - sats 90-96% Labs: noted EKG: Rate: tachycardiac Rhythm: NSR ST Segments: other - NSST changes Chest X-Ray: hypoventilatory exam, no consolidation, no effusion, no pneumothorax, no acute cardiopulmonary disease CT abdomen pelvis: Severely enlarged liver and fatty liver. Mild ascites. Critical Care - Objective Last 24 Hour Vital Signs Date Time Temp Pulse Resp B/P (MAP) Pulse Ox O2 Delivery O2 Flow Rate FiO2 07/03/19 15:00 66 17 93/39 (57) 100 07/03/19 14:00 67 20 98/39 (58) 100 07/03/19 13:49 69 28 100 Facial 30 07/03/19 13:00 66 23 91/41 (58) 97 07/03/19 12:00 68 07/03/19 12:00 30 07/03/19 12:00 Bi-pap 07/03/19 12:00 98.8 68 24 102/45 (64) 98 07/03/19 11:19 67 30 97 Facial 30 07/03/19 11:00 67 26 101/46 (64) 98 07/03/19 10:00 66 26 102/42 (62) 99 07/03/19 09:00 78 23 111/48 (69) 97 07/03/19 08:48 64 29 98 Facial 30 07/03/19 08:00 63 07/03/19 08:00 99.0 63 19 103/51 (68) 98 07/03/19 08:00 Bi-pap 07/03/19 08:00 30 07/03/19 07:00 69 21 97 Bi-Pap 30 07/03/19 07:00 64 21 98/42 (60) 97 07/03/19 07:00 97 Bi-Pap 30 07/03/19 06:59 62 21 97 Facial 30 07/03/19 06:00 65 26 96/40 (58) 97 07/03/19 05:07 73 26 98 Facial 30 07/03/19 05:00 67 22 91/36 (54) 97 07/03/19 04:00 Bi-pap 07/03/19 04:00 99.1 73 24 94/47 (63) 95 07/03/19 04:00 74 07/03/19 04:00 30 07/03/19 03:00 74 17 108/42 (64) 97 07/03/19 02:48 75 29 99 Facial 30 07/03/19 02:00 73 22 103/40 (61) 97 07/03/19 01:03 71 26 98 Facial 30 07/03/19 01:00 72 18 93/40 (57) 97 07/03/19 00:00 Bi-pap 07/03/19 00:00 99.9 73 15 99/42 (61) 98 07/03/19 00:00 69 07/03/19 00:00 30 07/02/19 23:00 74 21 111/66 (81) 99 07/02/19 22:46 72 26 97 Facial 30 07/02/19 22:00 74 24 94/42 (59) 99 07/02/19 21:00 70 20 104/44 (64) 99 07/02/19 20:51 70 30 99 Facial 30 07/02/19 20:00 35 07/02/19 20:00 Bi-pap 07/02/19 20:00 72 07/02/19 20:00 98.3 71 20 96/42 (60) 100 07/02/19 19:00 75 17 93/52 (66) 96 07/02/19 18:48 96 Bi-Pap 30 07/02/19 18:47 71 25 96 Bi-Pap 30 07/02/19 18:47 71 25 96 Facial 30 07/02/19 18:00 76 17 112/48 (69) 96 07/02/19 17:00 84 22 120/54 (76) 96 07/02/19 16:53 82 32 96 Facial 30 07/02/19 16:00 98.2 82 22 131/60 (83) 93 07/02/19 16:00 35 07/02/19 16:00 Nasal Cannula 2.0 07/02/19 15:43 79 07/02/19 15:24 80 26 96 Facial 30 Critical Care - Subjective ROS Limited/Unobtainable: No FI02: 30 Sputum Amount: None Tube Feeding Amount: 45 I&O: Intake and Output 07/02/19 07/03/19 18:59 06:59 Intake Total 3000 ml 645 ml Output Total 0 ml 2910 ml Balance 3000 ml -2265 ml Free Water 60 ml 100 ml IV Total 830 ml 545 ml Tube Feeding 360 ml Blood Product 250 ml Hemodialysis 1500 ml Output Urine Total 0 ml 10 ml Stool Total 2900 ml Quang Domingo MD Jul 03, 2019 15:10
[2019-07-03] MEDS: Dyna-Hex 2% Top Sol 2oz TOPIC SCH (20:16)
--- NOTE | 2019-07-03 21:37 | General Progress Note ---
Assessment/Plan Problem List: (1) Anemia ICD Codes: D64.9 - Anemia, unspecified SNOMED: 403028355 Qualifiers: Qualified Codes: D64.9 - Anemia, unspecified (2) Acute alcoholic intoxication ICD Codes: F10.929 - Alcohol use, unspecified with intoxication, unspecified SNOMED: 10123065, 2532165 Qualifiers: Qualified Codes: F10.920 - Alcohol use, unspecified with intoxication, uncomplicated (3) End-stage liver disease ICD Codes: K72.90 - Hepatic failure, unspecified without coma SNOMED: 469520622 (4) Hepatorenal syndrome ICD Codes: K76.7 - Hepatorenal syndrome SNOMED: 28458635, 0123054 (5) Pancreatitis, alcoholic, acute ICD Codes: K85.20 - Alcohol induced acute pancreatitis without necrosis or infection SNOMED: 145454889, 8017430 Qualifiers: Qualified Codes: K85.20 - Alcohol induced acute pancreatitis without necrosis or infection (6) Respiratory failure ICD Codes: J96.90 - Respiratory failure, unspecified, unspecified whether with hypoxia or hypercapnia SNOMED: 157345771 Status: unchanged Assessment/Plan: hepatorenal syndrome] not improving elevated lft \very poor prognosis still edematious ng tube feeding etoh cirrhosis jaundice confused distended abdomen s/p paracentesis Subjective ROS Limited/Unobtainable: Yes Allergies: Coded Allergies: No Known Allergies (Unverified , 06/20/19) Objective Last 24 Hour Vital Signs Date Time Temp Pulse Resp B/P (MAP) Pulse Ox O2 Delivery O2 Flow Rate FiO2 07/03/19 21:00 70 26 108/49 (68) 97 07/03/19 20:00 3.0 07/03/19 20:00 Bi-pap 07/03/19 20:00 68 07/03/19 20:00 99.4 68 25 90/46 (61) 99 07/03/19 19:00 67 25 100/40 (60) 98 07/03/19 18:00 74 26 104/36 (58) 99 07/03/19 17:00 70 25 99/41 (60) 100 07/03/19 16:00 Bi-pap 07/03/19 16:00 30 07/03/19 16:00 98.8 82 23 114/80 (91) 100 07/03/19 16:00 64 9/10/19 15:36 66 27 100 Facial 30 07/03/19 15:00 66 17 93/39 (57) 100 07/03/19 14:00 67 20 98/39 (58) 100 07/03/19 13:49 69 28 100 Facial 30 07/03/19 13:00 66 23 91/41 (58) 97 07/03/19 12:00 68 07/03/19 12:00 30 07/03/19 12:00 Bi-pap 07/03/19 12:00 98.8 68 24 102/45 (64) 98 07/03/19 11:19 67 30 97 Facial 30 07/03/19 11:00 67 26 101/46 (64) 98 07/03/19 10:00 66 26 102/42 (62) 99 07/03/19 09:00 78 23 111/48 (69) 97 07/03/19 08:48 64 29 98 Facial 30 07/03/19 08:00 63 07/03/19 08:00 99.0 63 19 103/51 (68) 98 07/03/19 08:00 Bi-pap 07/03/19 08:00 30 07/03/19 07:00 69 21 97 Bi-Pap 30 07/03/19 07:00 64 21 98/42 (60) 97 07/03/19 07:00 97 Bi-Pap 30 07/03/19 06:59 62 21 97 Facial 30 07/03/19 06:00 65 26 96/40 (58) 97 07/03/19 05:07 73 26 98 Facial 30 07/03/19 05:00 67 22 91/36 (54) 97 07/03/19 04:00 Bi-pap 07/03/19 04:00 99.1 73 24 94/47 (63) 95 07/03/19 04:00 74 07/03/19 04:00 30 07/03/19 03:00 74 17 108/42 (64) 97 07/03/19 02:48 75 29 99 Facial 30 07/03/19 02:00 73 22 103/40 (61) 97 07/03/19 01:03 71 26 98 Facial 30 07/03/19 01:00 72 18 93/40 (57) 97 07/03/19 00:00 Bi-pap 07/03/19 00:00 99.9 73 15 99/42 (61) 98 07/03/19 00:00 69 07/03/19 00:00 30 07/02/19 23:00 74 21 111/66 (81) 99 07/02/19 22:46 72 26 97 Facial 30 07/02/19 22:00 74 24 94/42 (59) 99 Intake and Output 07/02/19 07/03/19 19:00 07:00 Intake Total 2880 ml 645 ml Output Total 1100 ml 1810 ml Balance 1780 ml -1165 ml Free Water 60 ml 100 ml IV Total 755 ml 545 ml Tube Feeding 315 ml Blood Product 250 ml Hemodialysis 1500 ml Output Urine Total 0 ml 10 ml Stool Total 1100 ml 1800 ml Laboratory Tests 07/03/19 03:25: White Blood Count 18.7H, Red Blood Count 2.42L, Hemoglobin 7.7L, Hematocrit 23.8L, Mean Corpuscular Volume 99, Mean Corpuscular Hemoglobin 32.0H, Mean Corpuscular Hemoglobin Concent 32.5, Red Cell Distribution Width 23.9H, Platelet Count 108L, Mean Platelet Volume 8.7, Neutrophils (%) (Auto) , Lymphocytes (%) (Auto) , Monocytes (%) (Auto) , Eosinophils (%) (Auto) , Basophils (%) (Auto) , Differential Total Cells Counted 100, Neutrophils % ( Manual) 77H, Lymphocytes % (Manual) 16L, Monocytes % (Manual) 6, Eosinophils % ( Manual) 1, Basophils % (Manual) 0, Band Neutrophils 0, Platelet Estimate DecreasedL, Platelet Morphology Normal, Polychromasia 1+, Hypochromasia 1+, Anisocytosis 3+, Sodium Level 150H, Potassium Level 3.2L, Chloride Level 116H, Carbon Dioxide Level 18L, Anion Gap 16H, Blood Urea Nitrogen 58H, Creatinine 5.6H, Estimat Glomerular Filtration Rate 11.4, Glucose Level 115H, Uric Acid 8.9H, Calcium Level 7.7L, Phosphorus Level 4.9, Magnesium Level 2.1, Total Bilirubin 31.9H, Direct Bilirubin 26.2H, Aspartate Amino Transf (AST/SGOT) 125H , Alanine Aminotransferase (ALT/SGPT) 20, Alkaline Phosphatase 226H, C-Reactive Protein, Quantitative 11.4H, Pro-B-Type Natriuretic Peptide 3102H, Total Protein 4.7L, Albumin 1.6L, Globulin 3.1, Albumin/Globulin Ratio 0.5L 07/03/19 15:28: Arterial Blood pH 7.542H, Arterial Blood Partial Pressure CO2 25.4L, Arterial Blood Partial Pressure O2 116.2H, Arterial Blood HCO3 21.3L, Arterial Blood Oxygen Saturation 98.6, Arterial Blood Base Excess -0.6, Dave Test Positive Height (Feet): 5 Height (Inches): 9.00 Weight (Pounds): 217 Neck: supple Cardiovascular: normal rate Respiratory/Chest: lungs clear Abdomen: soft Deejay Saldaña MD Jul 03, 2019 21:37
[2019-07-04] VITALS (24 sets, daily range): BP systolic 90–127; BP diastolic 42–64
[2019-07-04 04:24] LABS: HEMATOCRIT 23.9 % (42.0-52.0); HEMOGLOBIN 7.8 G/DL (14.2-18.0); MEAN CORPUSCULAR VOLUME 98 FL (80-99); PLATELET COUNT 147 K/UL (150-450); RED BLOOD COUNT 2.44 M/UL (4.70-6.10); RED CELL DISTRIBUTION WIDTH 24.8 % (11.6-14.8); WHITE BLOOD COUNT 19.5 K/UL (4.8-10.8)
[2019-07-04 04:34] LABS: INR 1.8 (0.9-1.1)
[2019-07-04 04:55] LABS: ALANINE AMINOTRANSFERASE 121 U/L (12-78); ALKALINE PHOSPHATASE 140 U/L (46-116); ANION GAP 14 mmol/L (5-15); ASPARTATE AMINO TRANSFERASE 145 U/L (15-37); BILIRUBIN,TOTAL 31.8 MG/DL (0.2-1.0); BLOOD UREA NITROGEN 48 mg/dL (7-18); CALCIUM 7.6 MG/DL (8.5-10.1); CARBON DIOXIDE 22 MMOL/L (21-32); CHLORIDE 115 MMOL/L (98-107); CREATININE 5.8 MG/DL (0.55-1.30); PHOSPHORUS 3.9 MG/DL (2.5-4.9); SODIUM 151 MMOL/L (136-145)
[2019-07-04] MEDS: metroNIDAZOLE 500mg tab NG SCH ×3 (05:13→21:24)
[2019-07-04] MEDS: Midodrine 10mg tab ORAL SCH (05:13)
[2019-07-04 05:41] LABS: ALBUMIN 1.5 G/DL (3.4-5.0); BILIRUBIN,DIRECT 26.2 MG/DL (0.0-0.3)
[2019-07-04] MEDS: Octreotide Acetate 500 MCG in Sodium Chloride 499 ML IV SCH (06:06)
[2019-07-04] MEDS: Pantoprazole Inj IVP SCH ×2 (08:41→20:35)
[2019-07-04] MEDS: Lactulose 20gm/30ml UDC NG SCH ×4 (08:41→20:35)
[2019-07-04] MEDS: cefTRIAXone 1 GM in D5W 55 ML IVPB SCH (08:41)
[2019-07-04] MEDS ORDERED: D5W IV SCH (08:45)
[2019-07-04] MEDS ORDERED: OCTREOTIDE ACETATE IV SCH (08:45)
[2019-07-04] MEDS ORDERED: NS 275ml ONE ×2 (09:37→09:39)
[2019-07-04] MEDS ORDERED: Tubing IV Secondary IV ONE (09:37)
--- NOTE | 2019-07-04 10:10 | Nephrology Progress Note ---
Assessment/Plan Problem List: (1) End-stage liver disease (2) Hepatorenal syndrome (3) Pancreatitis, alcoholic, acute (4) Acute alcoholic intoxication (5) Anemia (6) Respiratory failure (7) Hypernatremia Assessment Acute alcoholic intoxication End-stage liver disease Hepatorenal syndrome Pancreatitis, alcoholic, acute Anemia Plan since still full code- will attempt dialysis repeat 07/05 DC IV D5w on 06/28/19 met with Brother- Liliana Reyes [employer] Brother will discuss with family regarding DNR and comfort care K and Mag and phos supplement as needed has parker has RT (rectal tube) increase lactulose change IV to D5w 150 cc / h aim to change Zosyn and or decrease the dose discussed with RN Correct lytes IV protonix lactulose Folate and Thiamin per GI transfuse per consultants Subjective ROS Limited/Unobtainable: Yes Objective Objective Last 24 Hour Vital Signs Date Time Temp Pulse Resp B/P (MAP) Pulse Ox O2 Delivery O2 Flow Rate FiO2 07/04/19 08:00 2.0 07/04/19 08:00 99.9 75 25 106/49 (68) 99 07/04/19 08:00 76 07/04/19 07:00 82 30 127/57 (80) 100 07/04/19 06:00 75 22 110/54 (72) 97 07/04/19 05:00 69 20 104/43 (63) 95 07/04/19 04:00 74 07/04/19 04:00 2.0 07/04/19 04:00 Nasal Cannula 2.0 07/04/19 04:00 98.8 76 25 114/46 (68) 98 07/04/19 03:00 74 24 104/52 (69) 97 07/04/19 02:00 69 24 102/49 (66) 96 07/04/19 01:00 79 23 113/53 (73) 95 07/04/19 00:00 98.7 62 23 100/45 (63) 99 07/04/19 00:00 Nasal Cannula 2.0 07/04/19 00:00 76 07/03/19 23:00 69 27 112/49 (70) 97 07/03/19 22:30 97 2.0 28 07/03/19 22:00 69 24 116/47 (70) 97 07/03/19 21:00 70 26 108/49 (68) 97 07/03/19 20:00 3.0 07/03/19 20:00 Nasal Cannula 3.0 07/03/19 20:00 68 07/03/19 20:00 99.4 68 25 90/46 (61) 99 07/03/19 19:00 67 25 100/40 (60) 98 07/03/19 18:55 70 20 95 Nasal Cannula 2.0 28 07/03/19 18:55 96 Nasal Cannula 2.0 28 07/03/19 18:00 74 26 104/36 (58) 99 07/03/19 17:00 70 25 99/41 (60) 100 07/03/19 16:00 Bi-pap 07/03/19 16:00 30 07/03/19 16:00 98.8 82 23 114/80 (91) 100 07/03/19 16:00 64 07/03/19 15:36 66 27 100 Facial 30 07/03/19 15:00 66 17 93/39 (57) 100 07/03/19 14:00 67 20 98/39 (58) 100 07/03/19 13:49 69 28 100 Facial 30 07/03/19 13:00 66 23 91/41 (58) 97 07/03/19 12:00 68 07/03/19 12:00 30 07/03/19 12:00 Bi-pap 07/03/19 12:00 98.8 68 24 102/45 (64) 98 07/03/19 11:19 67 30 97 Facial 30 07/03/19 11:00 67 26 101/46 (64) 98 Intake and Output 07/03/19 07/04/19 19:00 07:00 Intake Total 794.2 ml 1225 ml Output Total 2606 ml 1200 ml Balance -1811.8 ml 25 ml Free Water 130 ml 100 ml IV Total 604.2 ml 600 ml Tube Feeding 60 ml 525 ml Output Urine Total 6 ml 0 ml Stool Total 600 ml 1200 ml Hemodialysis UF 2000 ml Laboratory Tests 07/03/19 15:28: Arterial Blood pH 7.542H, Arterial Blood Partial Pressure CO2 25.4L, Arterial Blood Partial Pressure O2 116.2H, Arterial Blood HCO3 21.3L, Arterial Blood Oxygen Saturation 98.6, Arterial Blood Base Excess -0.6, Dave Test Positive 07/04/19 03:35: White Blood Count 19.5H, Red Blood Count 2.44L, Hemoglobin 7.8L, Hematocrit 23.9L, Mean Corpuscular Volume 98, Mean Corpuscular Hemoglobin 31.9H, Mean Corpuscular Hemoglobin Concent 32.4, Red Cell Distribution Width 24.8H, Platelet Count 147L, Mean Platelet Volume 8.8, Neutrophils (%) (Auto) , Lymphocytes (%) (Auto) , Monocytes (%) (Auto) , Eosinophils (%) (Auto) , Basophils (%) (Auto) , Differential Total Cells Counted 100, Neutrophils % ( Manual) 74, Lymphocytes % (Manual) 10L, Monocytes % (Manual) 9, Eosinophils % ( Manual) 1, Basophils % (Manual) 0, Band Neutrophils 6, Nucleated Red Blood Cells 2, Platelet Estimate DecreasedL, Platelet Morphology Normal, Polychromasia 1+, Hypochromasia 1+, Anisocytosis 3+, Prothrombin Time 18.5H, Prothromb Time International Ratio 1.8H, Activated Partial Thromboplast Time 37H , Sodium Level 151H, Potassium Level 3.0L, Chloride Level 115H, Carbon Dioxide Level 22, Anion Gap 14, Blood Urea Nitrogen 48H, Creatinine 5.8H, Estimat Glomerular Filtration Rate 10.9, Glucose Level 150H, Calcium Level 7.6L, Phosphorus Level 3.9, Magnesium Level 2.0, Total Bilirubin 31.8H, Direct Bilirubin 26.2H, Aspartate Amino Transf (AST/SGOT) 145H, Alanine Aminotransferase (ALT/SGPT) 121H, Alkaline Phosphatase 140H, Total Protein 4.8L , Albumin 1.5L, Globulin 3.3 07/04/19 09:00: Ammonia 45H Height (Feet): 5 Height (Inches): 9.00 Weight (Pounds): 217 General Appearance: confused, mild distress EENT: other - jaundiced Cardiovascular: tachycardia Respiratory/Chest: decreased breath sounds Abdomen: distended Arthur Lay MD Jul 04, 2019 10:10
--- NOTE | 2019-07-04 12:24 | General Progress Note ---
Assessment/Plan Problem List: (1) Pancreatitis, alcoholic, acute ICD Codes: K85.20 - Alcohol induced acute pancreatitis without necrosis or infection SNOMED: 029007985, 2130251 Qualifiers: Qualified Codes: K85.20 - Alcohol induced acute pancreatitis without necrosis or infection (2) Acute alcoholic intoxication ICD Codes: F10.929 - Alcohol use, unspecified with intoxication, unspecified SNOMED: 23710632, 6430370 Qualifiers: Qualified Codes: F10.920 - Alcohol use, unspecified with intoxication, uncomplicated (3) Anemia ICD Codes: D64.9 - Anemia, unspecified SNOMED: 837818334 Qualifiers: Qualified Codes: D64.9 - Anemia, unspecified Status: unchanged Assessment/Plan: discriminant factor of 16 NGTF repeat labs fu nephrology cont lactulose xifaxan prn paracentesis dc octreotide and midodrine Subjective ROS Limited/Unobtainable: No Allergies: Coded Allergies: No Known Allergies (Unverified , 06/20/19) Objective Last 24 Hour Vital Signs Date Time Temp Pulse Resp B/P (MAP) Pulse Ox O2 Delivery O2 Flow Rate FiO2 07/04/19 12:00 99.7 73 25 93/49 (64) 99 07/04/19 12:00 99.7 75 25 106/49 (68) 99 07/04/19 12:00 Nasal Cannula 2.0 07/04/19 11:00 76 29 109/50 (69) 97 07/04/19 10:00 76 25 104/50 (68) 97 07/04/19 09:00 74 28 108/49 (68) 100 07/04/19 08:00 2.0 07/04/19 08:00 99.9 75 25 106/49 (68) 99 07/04/19 08:00 Nasal Cannula 2.0 07/04/19 08:00 76 07/04/19 07:00 82 30 127/57 (80) 100 07/04/19 06:55 96 Nasal Cannula 2.0 28 07/04/19 06:55 72 20 95 Nasal Cannula 2.0 28 07/04/19 06:00 75 22 110/54 (72) 97 07/04/19 05:00 69 20 104/43 (63) 95 07/04/19 04:00 74 07/04/19 04:00 2.0 07/04/19 04:00 Nasal Cannula 2.0 07/04/19 04:00 98.8 76 25 114/46 (68) 98 07/04/19 03:00 74 24 104/52 (69) 97 07/04/19 02:00 69 24 102/49 (66) 96 07/04/19 01:00 79 23 113/53 (73) 95 07/04/19 00:00 98.7 62 23 100/45 (63) 99 07/04/19 00:00 Nasal Cannula 2.0 07/04/19 00:00 76 07/03/19 23:00 69 27 112/49 (70) 97 07/03/19 22:30 97 2.0 28 07/03/19 22:00 69 24 116/47 (70) 97 07/03/19 21:00 70 26 108/49 (68) 97 07/03/19 20:00 3.0 07/03/19 20:00 Nasal Cannula 3.0 07/03/19 20:00 68 07/03/19 20:00 99.4 68 25 90/46 (61) 99 07/03/19 19:00 67 25 100/40 (60) 98 07/03/19 18:55 70 20 95 Nasal Cannula 2.0 28 07/03/19 18:55 96 Nasal Cannula 2.0 28 07/03/19 18:00 74 26 104/36 (58) 99 07/03/19 17:00 70 25 99/41 (60) 100 07/03/19 16:00 Bi-pap 07/03/19 16:00 30 07/03/19 16:00 98.8 82 23 114/80 (91) 100 07/03/19 16:00 64 07/03/19 15:36 66 27 100 Facial 30 07/03/19 15:00 66 17 93/39 (57) 100 07/03/19 14:00 67 20 98/39 (58) 100 07/03/19 13:49 69 28 100 Facial 30 07/03/19 13:00 66 23 91/41 (58) 97 Intake and Output 07/03/19 07/04/19 19:00 07:00 Intake Total 794.2 ml 1225 ml Output Total 2606 ml 1200 ml Balance -1811.8 ml 25 ml Free Water 130 ml 100 ml IV Total 604.2 ml 600 ml Tube Feeding 60 ml 525 ml Output Urine Total 6 ml 0 ml Stool Total 600 ml 1200 ml Hemodialysis UF 2000 ml Laboratory Tests 07/03/19 15:28: Arterial Blood pH 7.542H, Arterial Blood Partial Pressure CO2 25.4L, Arterial Blood Partial Pressure O2 116.2H, Arterial Blood HCO3 21.3L, Arterial Blood Oxygen Saturation 98.6, Arterial Blood Base Excess -0.6, Dave Test Positive 07/04/19 03:35: White Blood Count 19.5H, Red Blood Count 2.44L, Hemoglobin 7.8L, Hematocrit 23.9L, Mean Corpuscular Volume 98, Mean Corpuscular Hemoglobin 31.9H, Mean Corpuscular Hemoglobin Concent 32.4, Red Cell Distribution Width 24.8H, Platelet Count 147L, Mean Platelet Volume 8.8, Neutrophils (%) (Auto) , Lymphocytes (%) (Auto) , Monocytes (%) (Auto) , Eosinophils (%) (Auto) , Basophils (%) (Auto) , Differential Total Cells Counted 100, Neutrophils % ( Manual) 74, Lymphocytes % (Manual) 10L, Monocytes % (Manual) 9, Eosinophils % ( Manual) 1, Basophils % (Manual) 0, Band Neutrophils 6, Nucleated Red Blood Cells 2, Platelet Estimate DecreasedL, Platelet Morphology Normal, Polychromasia 1+, Hypochromasia 1+, Anisocytosis 3+, Prothrombin Time 18.5H, Prothromb Time International Ratio 1.8H, Activated Partial Thromboplast Time 37H , Sodium Level 151H, Potassium Level 3.0L, Chloride Level 115H, Carbon Dioxide Level 22, Anion Gap 14, Blood Urea Nitrogen 48H, Creatinine 5.8H, Estimat Glomerular Filtration Rate 10.9, Glucose Level 150H, Calcium Level 7.6L, Phosphorus Level 3.9, Magnesium Level 2.0, Total Bilirubin 31.8H, Direct Bilirubin 26.2H, Aspartate Amino Transf (AST/SGOT) 145H, Alanine Aminotransferase (ALT/SGPT) 121H, Alkaline Phosphatase 140H, Total Protein 4.8L , Albumin 1.5L, Globulin 3.3 07/04/19 09:00: Ammonia 45H Height (Feet): 5 Height (Inches): 9.00 Weight (Pounds): 217 General Appearance: no apparent distress, lethargic EENT: scleral icterus Neck: supple Cardiovascular: normal rate Respiratory/Chest: decreased breath sounds Abdomen: normal bowel sounds, non tender, soft Extremities: non-tender Merlin Esposito MD Jul 04, 2019 12:24
--- NOTE | 2019-07-04 12:39 | Infectious Diseases Prog Note ---
Assessment/Plan Assessment/Plan IMPRESSION: 1. Sepsis. 2. Systemic inflammatory response syndrome. 3. Tachycardia. 4. Leukocytosis. 5. colitis, 6.Alcoholic pancreatitis, 7.Cirrhosis of liver, 8. Acute renal failure likely hepatorenal syndrome, - ESRD 9.Anemia, 10. thrombocytopenia, 11.hypocalcemia, 12.hypomagnesemia, corrected 13 hypokalemia, corrected 14, Alcohol withdrawal. 15.Metabolic encephalopathy 16. Hypophosphatemia 17. Hypernatremia 18. Hypoxic respiratory failure RECOMMENDATION: continue Rocephin & Flagyl Poor prognosis Subjective ROS Limited/Unobtainable: Yes Neurologic: Reports: other - more alert, off restraint Allergies: Coded Allergies: No Known Allergies (Unverified , 06/20/19) Objective Vital Signs Last 24 Hour Vital Signs Date Time Temp Pulse Resp B/P (MAP) Pulse Ox O2 Delivery O2 Flow Rate FiO2 07/04/19 12:00 99.7 73 25 93/49 (64) 99 07/04/19 12:00 99.7 75 25 106/49 (68) 99 07/04/19 12:00 Nasal Cannula 2.0 07/04/19 11:00 76 29 109/50 (69) 97 07/04/19 10:00 76 25 104/50 (68) 97 07/04/19 09:00 74 28 108/49 (68) 100 07/04/19 08:00 2.0 07/04/19 08:00 99.9 75 25 106/49 (68) 99 07/04/19 08:00 Nasal Cannula 2.0 07/04/19 08:00 76 07/04/19 07:00 82 30 127/57 (80) 100 07/04/19 06:55 96 Nasal Cannula 2.0 28 07/04/19 06:55 72 20 95 Nasal Cannula 2.0 28 07/04/19 06:00 75 22 110/54 (72) 97 07/04/19 05:00 69 20 104/43 (63) 95 07/04/19 04:00 74 07/04/19 04:00 2.0 07/04/19 04:00 Nasal Cannula 2.0 07/04/19 04:00 98.8 76 25 114/46 (68) 98 07/04/19 03:00 74 24 104/52 (69) 97 07/04/19 02:00 69 24 102/49 (66) 96 07/04/19 01:00 79 23 113/53 (73) 95 07/04/19 00:00 98.7 62 23 100/45 (63) 99 07/04/19 00:00 Nasal Cannula 2.0 07/04/19 00:00 76 07/03/19 23:00 69 27 112/49 (70) 97 07/03/19 22:30 97 2.0 28 07/03/19 22:00 69 24 116/47 (70) 97 07/03/19 21:00 70 26 108/49 (68) 97 07/03/19 20:00 3.0 07/03/19 20:00 Nasal Cannula 3.0 07/03/19 20:00 68 07/03/19 20:00 99.4 68 25 90/46 (61) 99 07/03/19 19:00 67 25 100/40 (60) 98 07/03/19 18:55 70 20 95 Nasal Cannula 2.0 28 07/03/19 18:55 96 Nasal Cannula 2.0 28 07/03/19 18:00 74 26 104/36 (58) 99 07/03/19 17:00 70 25 99/41 (60) 100 07/03/19 16:00 Bi-pap 07/03/19 16:00 30 07/03/19 16:00 98.8 82 23 114/80 (91) 100 07/03/19 16:00 64 07/03/19 15:36 66 27 100 Facial 30 07/03/19 15:00 66 17 93/39 (57) 100 07/03/19 14:00 67 20 98/39 (58) 100 07/03/19 13:49 69 28 100 Facial 30 07/03/19 13:00 66 23 91/41 (58) 97 Height (Feet): 5 Height (Inches): 9.00 Weight (Pounds): 217 HEENT: other - icterus Respiratory/Chest: lungs clear, other - oxygen by nasal cannula Cardiovascular: normal rate, other - RIJ HD line, left arm PICC line Abdomen: distended, other - rectaltube & GT Extremities: other - decreasing edema Neurologic/Psychiatric: disoriented, other - drowsy Laboratory Tests Test 07/03/19 15:28 07/04/19 03:35 07/04/19 09:00 Arterial Blood pH 7.542 (7.350-7.450) Arterial Blood Partial Pressure CO2 25.4 mmHg (35.0-45.0) L Arterial Blood Partial Pressure O2 116.2 mmHg (75.0-100.0) H Arterial Blood HCO3 21.3 mmol/L (22.0-26.0) L Arterial Blood Oxygen Saturation 98.6 % (95-100) Arterial Blood Base Excess -0.6 (-2-2) Dave Test Positive White Blood Count 19.5 K/UL (4.8-10.8) H Red Blood Count 2.44 M/UL (4.70-6.10) L Hemoglobin 7.8 G/DL (14.2-18.0) L Hematocrit 23.9 % (42.0-52.0) L Mean Corpuscular Volume 98 FL (80-99) Mean Corpuscular Hemoglobin 31.9 PG (27.0-31.0) H Mean Corpuscular Hemoglobin Concent 32.4 G/DL (32.0-36.0) Red Cell Distribution Width 24.8 % (11.6-14.8) H Platelet Count 147 K/UL (150-450) L Mean Platelet Volume 8.8 FL (6.5-10.1) Neutrophils (%) (Auto) % (45.0-75.0) Lymphocytes (%) (Auto) % (20.0-45.0) Monocytes (%) (Auto) % (1.0-10.0) Eosinophils (%) (Auto) % (0.0-3.0) Basophils (%) (Auto) % (0.0-2.0) Differential Total Cells Counted 100 Neutrophils % (Manual) 74 % (45-75) Lymphocytes % (Manual) 10 % (20-45) L Monocytes % (Manual) 9 % (1-10) Eosinophils % (Manual) 1 % (0-3) Basophils % (Manual) 0 % (0-2) Band Neutrophils 6 % (0-8) Nucleated Red Blood Cells 2 /100 WBC Platelet Estimate Decreased L Platelet Morphology Normal Polychromasia 1+ Hypochromasia 1+ Anisocytosis 3+ Prothrombin Time 18.5 SEC (9.30-11.50) H Prothromb Time International Ratio 1.8 (0.9-1.1) H Activated Partial Thromboplast Time 37 SEC (23-33) H Sodium Level 151 MMOL/L (136-145) H Potassium Level 3.0 MMOL/L (3.5-5.1) L Chloride Level 115 MMOL/L (98-107) H Carbon Dioxide Level 22 MMOL/L (21-32) Anion Gap 14 mmol/L (5-15) Blood Urea Nitrogen 48 mg/dL (7-18) H Creatinine 5.8 MG/DL (0.55-1.30) H Estimat Glomerular Filtration Rate 10.9 mL/min (>60) Glucose Level 150 MG/DL (74-106) H Calcium Level 7.6 MG/DL (8.5-10.1) L Phosphorus Level 3.9 MG/DL (2.5-4.9) Magnesium Level 2.0 MG/DL (1.8-2.4) Total Bilirubin 31.8 MG/DL (0.2-1.0) H Direct Bilirubin 26.2 MG/DL (0.0-0.3) H Aspartate Amino Transf (AST/SGOT) 145 U/L (15-37) H Alanine Aminotransferase (ALT/SGPT) 121 U/L (12-78) H Alkaline Phosphatase 140 U/L (46-116) H Total Protein 4.8 G/DL (6.4-8.2) L Albumin 1.5 G/DL (3.4-5.0) L Globulin 3.3 g/dL Ammonia 45 umol/L (11-32) H Current Medications Medications (Trade) Dose Ordered Sig/Gabriela Route PRN Reason Start Time Stop Time Status Last Admin Dose Admin Albuterol/ Ipratropium (Albuterol/ Ipratropium) 3 ml Q4HRT HHN 07/04/19 15:00 07/09/19 14:59 Ceftriaxone Sodium 1 gm/ Dextrose 55 ml @ 110 mls/hr DAILY IVPB 06/27/19 13:00 07/08/19 12:59 07/04/19 08:41 Chlorhexidine Gluconate (Emilie-Hex 2%) 1 applic DAILY@2000 TOPIC 06/26/19 20:00 07/26/19 19:59 07/03/19 20:16 Dopamine HCl/ Dextrose 250 ml @ 0 mls/hr Q24H IV 06/30/19 14:53 07/30/19 14:52 Epoetin Michael (Epoetin Michael(ESRD on dialysis)) 2,000 unit SUBQ 07/02/19 21:00 08/01/19 20:59 07/02/19 20:28 Epoetin Michael (Epoetin Michael(ESRD on dialysis)) 3,000 unit SUBQ 07/02/19 21:00 08/01/19 20:59 07/02/19 20:28 Lactulose (Cephulac) 30 gm FOUR TIMES A DAY NG 07/01/19 09:00 07/20/19 12:59 07/04/19 08:41 Metronidazole (Flagyl) 500 mg Q8HR NG 06/27/19 14:00 07/08/19 13:59 07/04/19 05:13 Pantoprazole (Protonix) 40 mg EVERY 12 HOURS IVP 06/21/19 21:00 07/20/19 20:59 07/04/19 08:41 Ilia Chakraborty MD Jul 04, 2019 12:39
--- NOTE | 2019-07-04 13:01 | GI Progress Note ---
Assessment/Plan Problems: (1) End-stage liver disease ICD Codes: K72.90 - Hepatic failure, unspecified without coma SNOMED: 470367267 (2) Pancreatitis, alcoholic, acute ICD Codes: K85.20 - Alcohol induced acute pancreatitis without necrosis or infection SNOMED: 275749488, 4178667 Qualifiers: Qualified Codes: K85.20 - Alcohol induced acute pancreatitis without necrosis or infection (3) Hepatorenal syndrome ICD Codes: K76.7 - Hepatorenal syndrome SNOMED: 68824428, 3778244 (4) Acute alcoholic intoxication ICD Codes: F10.929 - Alcohol use, unspecified with intoxication, unspecified SNOMED: 30154063, 5868234 Qualifiers: Qualified Codes: F10.920 - Alcohol use, unspecified with intoxication, uncomplicated (5) Anemia ICD Codes: D64.9 - Anemia, unspecified SNOMED: 737332618 Qualifiers: Qualified Codes: D64.9 - Anemia, unspecified Status: not improved, unchanged Status Narrative Discussed with Dr. Esposito. Assessment/Plan MELD score is 31, poor prognosis discriminant factor of 16, defer glucocorticoid therapy s/p paracentesis yielding 400cc NPO IVF per nephrology repeat labs cont lactulose + xifaxan octreotide gtt s/p blood transfusion electrolyte correction The patient was seen and examined at bedside and all new and available data was reviewed in the patients chart. I agree with the above findings, impression and plan. (Patient seen earlier today. Signature stamp does not reflect patient encounter time.). - Merlin Esposito MD Subjective Subjective limited Objective Last 24 Hour Vital Signs Date Time Temp Pulse Resp B/P (MAP) Pulse Ox O2 Delivery O2 Flow Rate FiO2 07/04/19 12:00 99.7 73 25 93/49 (64) 99 07/04/19 12:00 99.7 75 25 106/49 (68) 99 07/04/19 12:00 87 07/04/19 12:00 Nasal Cannula 2.0 07/04/19 11:00 76 29 109/50 (69) 97 07/04/19 10:00 76 25 104/50 (68) 97 07/04/19 09:00 74 28 108/49 (68) 100 07/04/19 08:00 2.0 07/04/19 08:00 99.9 75 25 106/49 (68) 99 07/04/19 08:00 Nasal Cannula 2.0 07/04/19 08:00 76 07/04/19 07:00 82 30 127/57 (80) 100 07/04/19 06:55 96 Nasal Cannula 2.0 28 07/04/19 06:55 72 20 95 Nasal Cannula 2.0 28 07/04/19 06:00 75 22 110/54 (72) 97 07/04/19 05:00 69 20 104/43 (63) 95 07/04/19 04:00 74 07/04/19 04:00 2.0 07/04/19 04:00 Nasal Cannula 2.0 07/04/19 04:00 98.8 76 25 114/46 (68) 98 07/04/19 03:00 74 24 104/52 (69) 97 07/04/19 02:00 69 24 102/49 (66) 96 07/04/19 01:00 79 23 113/53 (73) 95 07/04/19 00:00 98.7 62 23 100/45 (63) 99 07/04/19 00:00 Nasal Cannula 2.0 07/04/19 00:00 76 07/03/19 23:00 69 27 112/49 (70) 97 07/03/19 22:30 97 2.0 28 07/03/19 22:00 69 24 116/47 (70) 97 07/03/19 21:00 70 26 108/49 (68) 97 07/03/19 20:00 3.0 07/03/19 20:00 Nasal Cannula 3.0 07/03/19 20:00 68 07/03/19 20:00 99.4 68 25 90/46 (61) 99 07/03/19 19:00 67 25 100/40 (60) 98 07/03/19 18:55 70 20 95 Nasal Cannula 2.0 28 07/03/19 18:55 96 Nasal Cannula 2.0 28 07/03/19 18:00 74 26 104/36 (58) 99 07/03/19 17:00 70 25 99/41 (60) 100 07/03/19 16:00 Bi-pap 07/03/19 16:00 30 07/03/19 16:00 98.8 82 23 114/80 (91) 100 07/03/19 16:00 64 07/03/19 15:36 66 27 100 Facial 30 07/03/19 15:00 66 17 93/39 (57) 100 07/03/19 14:00 67 20 98/39 (58) 100 07/03/19 13:49 69 28 100 Facial 30 Intake and Output 07/03/19 07/04/19 19:00 07:00 Intake Total 794.2 ml 1225 ml Output Total 2606 ml 1200 ml Balance -1811.8 ml 25 ml Free Water 130 ml 100 ml IV Total 604.2 ml 600 ml Tube Feeding 60 ml 525 ml Output Urine Total 6 ml 0 ml Stool Total 600 ml 1200 ml Hemodialysis UF 2000 ml Laboratory Tests Test 07/03/19 15:28 07/04/19 03:35 07/04/19 09:00 Arterial Blood pH 7.542 (7.350-7.450) Arterial Blood Partial Pressure CO2 25.4 mmHg (35.0-45.0) L Arterial Blood Partial Pressure O2 116.2 mmHg (75.0-100.0) H Arterial Blood HCO3 21.3 mmol/L (22.0-26.0) L Arterial Blood Oxygen Saturation 98.6 % (95-100) Arterial Blood Base Excess -0.6 (-2-2) Dave Test Positive White Blood Count 19.5 K/UL (4.8-10.8) H Red Blood Count 2.44 M/UL (4.70-6.10) L Hemoglobin 7.8 G/DL (14.2-18.0) L Hematocrit 23.9 % (42.0-52.0) L Mean Corpuscular Volume 98 FL (80-99) Mean Corpuscular Hemoglobin 31.9 PG (27.0-31.0) H Mean Corpuscular Hemoglobin Concent 32.4 G/DL (32.0-36.0) Red Cell Distribution Width 24.8 % (11.6-14.8) H Platelet Count 147 K/UL (150-450) L Mean Platelet Volume 8.8 FL (6.5-10.1) Neutrophils (%) (Auto) % (45.0-75.0) Lymphocytes (%) (Auto) % (20.0-45.0) Monocytes (%) (Auto) % (1.0-10.0) Eosinophils (%) (Auto) % (0.0-3.0) Basophils (%) (Auto) % (0.0-2.0) Differential Total Cells Counted 100 Neutrophils % (Manual) 74 % (45-75) Lymphocytes % (Manual) 10 % (20-45) L Monocytes % (Manual) 9 % (1-10) Eosinophils % (Manual) 1 % (0-3) Basophils % (Manual) 0 % (0-2) Band Neutrophils 6 % (0-8) Nucleated Red Blood Cells 2 /100 WBC Platelet Estimate Decreased L Platelet Morphology Normal Polychromasia 1+ Hypochromasia 1+ Anisocytosis 3+ Prothrombin Time 18.5 SEC (9.30-11.50) H Prothromb Time International Ratio 1.8 (0.9-1.1) H Activated Partial Thromboplast Time 37 SEC (23-33) H Sodium Level 151 MMOL/L (136-145) H Potassium Level 3.0 MMOL/L (3.5-5.1) L Chloride Level 115 MMOL/L (98-107) H Carbon Dioxide Level 22 MMOL/L (21-32) Anion Gap 14 mmol/L (5-15) Blood Urea Nitrogen 48 mg/dL (7-18) H Creatinine 5.8 MG/DL (0.55-1.30) H Estimat Glomerular Filtration Rate 10.9 mL/min (>60) Glucose Level 150 MG/DL (74-106) H Calcium Level 7.6 MG/DL (8.5-10.1) L Phosphorus Level 3.9 MG/DL (2.5-4.9) Magnesium Level 2.0 MG/DL (1.8-2.4) Total Bilirubin 31.8 MG/DL (0.2-1.0) H Direct Bilirubin 26.2 MG/DL (0.0-0.3) H Aspartate Amino Transf (AST/SGOT) 145 U/L (15-37) H Alanine Aminotransferase (ALT/SGPT) 121 U/L (12-78) H Alkaline Phosphatase 140 U/L (46-116) H Total Protein 4.8 G/DL (6.4-8.2) L Albumin 1.5 G/DL (3.4-5.0) L Globulin 3.3 g/dL Ammonia 45 umol/L (11-32) H Height (Feet): 5 Height (Inches): 9.00 Weight (Pounds): 217 Ayo Lamar NP Jul 04, 2019 13:01
--- NOTE | 2019-07-04 13:54 | Pulmonolgy Critical Care Note ---
Critical Care - Asmt/Plan Assessment/Plan: Pulmonary CCM Progress HPI This is a 39-year-old male who is an alcoholic with significant fatty liver on abdominal CT and alcoholic hepatitis, liver failure c/b multiorgan failure. He has been drinking heavily for 3 months straight, having stopped drinking [employer]. Noted to have Hepatic Encephalopathy and Hepatorenal Syndrome. No bleeding. Noted to have significant hypokalemia and acidosis, now on HD, evidence of sepsis, source unclear - some bacteria in urine, mild ascites - possible SBP, dilated Gallbladder, s/p Paracentesis On NC, BiPAP PRN, NGT, on Lactulose On Hemodialysis for worsening acidosis, uremia Remains confused BP stable, Midodrine, PRN dopamine to maintain BP Allergies: No Known Allergies Past Medical History: Alcohol abuse All Other Systems: negative except mentioned in HPI Physical Exam Vital Signs Noted General Appearance: Jaundiced, awake Head: normocephalic, atraumatic, HD catheter Eyes: bilateral eye PERRL, bilateral eye EOMI, bilateral eye scleral icterus ENT: moist mm Neck: no masses, no LN Respiratory: chest non-tender, lungs clear, normal breath sounds Cardiovascular: regular rate, rhythm, Normal HS1, HS2, no murmur, tachycardia Gastrointestinal: Obese, hepatomegaly, some tenderness RUQ, normal bowel sounds , no mass, no rebound Musculoskeletal: moves all limbs Neurologic: responds to commands, awake Skin: jaundiced, moderate edema Impression: Acute alcoholic intoxication Severe Sepsis Alcoholic Hepatitis Possible Cirrhosis Hepatorenal syndrome - worsening renal function - on HD Multiorgan Failure Extremelt poor prognosis Possible Portal Hypertension Hypernatremia Pancreatitis, alcoholic, acute Anemia Plan ICU management NPO except meds/NGT feeds IV antibiotics per ID Aspiration precautions BiPAP PRN NC O2 GI/Renal following HD per Nephrology Pressors PRN Transfuse PRN Thiamine Monitor labs Adjust FIO2 - sats 90-96% Patient has extremely poor prognosis Labs: noted EKG: Rate: tachycardiac Rhythm: NSR ST Segments: other - NSST changes Chest X-Ray: hypoventilatory exam, no consolidation, no effusion, no pneumothorax, no acute cardiopulmonary disease CT abdomen pelvis: Severely enlarged liver and fatty liver. Mild ascites. Critical Care - Objective Last 24 Hour Vital Signs Date Time Temp Pulse Resp B/P (MAP) Pulse Ox O2 Delivery O2 Flow Rate FiO2 07/04/19 13:00 75 23 91/51 (64) 98 07/04/19 12:00 99.7 73 25 93/49 (64) 99 07/04/19 12:00 99.7 75 25 106/49 (68) 99 07/04/19 12:00 87 07/04/19 12:00 Nasal Cannula 2.0 07/04/19 11:00 76 29 109/50 (69) 97 07/04/19 10:00 76 25 104/50 (68) 97 07/04/19 09:00 74 28 108/49 (68) 100 07/04/19 08:00 2.0 07/04/19 08:00 99.9 75 25 106/49 (68) 99 07/04/19 08:00 Nasal Cannula 2.0 07/04/19 08:00 76 07/04/19 07:00 82 30 127/57 (80) 100 07/04/19 06:55 96 Nasal Cannula 2.0 28 07/04/19 06:55 72 20 95 Nasal Cannula 2.0 28 07/04/19 06:00 75 22 110/54 (72) 97 07/04/19 05:00 69 20 104/43 (63) 95 07/04/19 04:00 74 07/04/19 04:00 2.0 07/04/19 04:00 Nasal Cannula 2.0 07/04/19 04:00 98.8 76 25 114/46 (68) 98 07/04/19 03:00 74 24 104/52 (69) 97 07/04/19 02:00 69 24 102/49 (66) 96 07/04/19 01:00 79 23 113/53 (73) 95 07/04/19 00:00 98.7 62 23 100/45 (63) 99 07/04/19 00:00 Nasal Cannula 2.0 07/04/19 00:00 76 07/03/19 23:00 69 27 112/49 (70) 97 07/03/19 22:30 97 2.0 28 07/03/19 22:00 69 24 116/47 (70) 97 07/03/19 21:00 70 26 108/49 (68) 97 07/03/19 20:00 3.0 07/03/19 20:00 Nasal Cannula 3.0 07/03/19 20:00 68 07/03/19 20:00 99.4 68 25 90/46 (61) 99 07/03/19 19:00 67 25 100/40 (60) 98 07/03/19 18:55 70 20 95 Nasal Cannula 2.0 28 07/03/19 18:55 96 Nasal Cannula 2.0 28 07/03/19 18:00 74 26 104/36 (58) 99 07/03/19 17:00 70 25 99/41 (60) 100 07/03/19 16:00 Bi-pap 07/03/19 16:00 30 07/03/19 16:00 98.8 82 23 114/80 (91) 100 07/03/19 16:00 64 07/03/19 15:36 66 27 100 Facial 30 07/03/19 15:00 66 17 93/39 (57) 100 07/03/19 14:00 67 20 98/39 (58) 100 Critical Care - Subjective ROS Limited/Unobtainable: No FI02: 28 Sputum Amount: None Tube Feeding Amount: 45 I&O: Intake and Output 07/03/19 07/04/19 19:00 07:00 Intake Total 794.2 ml 1225 ml Output Total 2606 ml 1200 ml Balance -1811.8 ml 25 ml Free Water 130 ml 100 ml IV Total 604.2 ml 600 ml Tube Feeding 60 ml 525 ml Output Urine Total 6 ml 0 ml Stool Total 600 ml 1200 ml Hemodialysis UF 2000 ml Quang Domingo MD Jul 04, 2019 13:54
[2019-07-04] MEDS: Albuterol/Ipratropium 3ml neb HHN SCH ×3 (14:30→23:42)
[2019-07-04] MEDS: DOPamine 400mg/250ml 250 ML IV SCH (14:53)
--- NOTE | 2019-07-04 15:52 | Hematology/Onc Progress Note ---
Assessment/Plan Assessment/Plan Assessment and Recs: # Thrombocytopenia - potential causes multifactorial, does have a history of etoh abuse, cirrhosis of the liver, hepatosplenomegaly, portal HTN, coagulopathy noted as well, likely oscillatory pattern can be due to abx as well --> Hep panel and HIV ordered (NEG) --> US abd does show, portal htn and cirrhosis ++ --> Peripheral smear ordered to evaluate for blasts /schistocytes reviewed and is negative --> abx and other meds have been reviewed --> ok for ppx if plt >50k w/ either heparin or lovenox --> Transfuse if Plt < 20k and fever, or if Plt < 10k without fever --> plt trend 80-->97-->117-->157k->216k-->107k-->72k-->68k-->109k-->108k-->148k # Anemia of chronic disease due to underlying chronic medical issues, multifactorial (myelosuprresion noted) --> Anemia workup has been reviewed, ferritin 297 --> EPOGEN HAS BEEN ORDERED WITH HD --> Hgb goal >7. Transfuse prn. --> Epogen or iron at this time is not particularly indicated --> Medications have been reviewed --> low threshold for gi evaluation in case has occult + --> hgb trend: 7.7-->8.2-->9->8.4-->8.3-->8.2-->8-->7.4->7.3-->7.7-->7.8 --> serum electrophoresis shows no m-spike 06/27 # Coagulopathy due to cirrhosis --> give Vitk as needed # Leukocytosis with sepsis is on abx --> ID following, appreciate recs --> wbc trend: 17k-->13.9-->19.5-->18.7 --> FLAGYL and CTX # Acute alcoholic intoxication --> etoh abuse history --> thiamine, folic acid, ivf # End-stage liver disease --> Hepatorenal syndrome r/o with renal, albumin prn # Pancreatitis, alcoholic, acute # Tachycardia # Dvt ppx with scds given low plts # POOR PROGNOSIS, Bioethics consult pending The timing of this note does not necessarily reflect the time of the patient was seen. GREATLY APPRECIATE CONSULTATION. Subjective Constitutional: Denies: no symptoms, chills, fever, malaise, weakness, other HEENT: Denies: no symptoms, eye pain, blurred vision, tearing, double vision, ear pain, ear discharge, nose pain, nose congestion, throat pain, throat swelling, mouth pain, mouth swelling, other Cardiovascular: Denies: no symptoms, chest pain, edema, irregular heart rate, lightheadedness, palpitations, syncope, other Gastrointestinal/Abdominal: Denies: no symptoms, abdomen distended, abdominal pain, black stools, tarry stools, blood in stool, constipated, diarrhea, difficulty swallowing, nausea, poor appetite, poor fluid intake, rectal bleeding , vomiting, other Genitourinary: Denies: no symptoms, burning, discharge, frequency, flank pain, hematuria, incontinence, pain, urgency, other Neurologic/Psychiatric: Denies: no symptoms, anxiety, depressed, emotional problems, headache, numbness, paresthesia, pre-existing deficit, seizure, tingling, tremors, weakness, other Allergies: Coded Allergies: No Known Allergies (Unverified , 06/20/19) Subjective 06/21: low k, ferritin 297, h/h stable, afebrile, blood transfused 06/22: in icu, on restraints, labs reviewed, no f/c, imaging reviewed 06/23: pain meds given, remains in icu, again in restraints, bili higher, inr as well, given vitk 06/25: no fevers, no chills, no bleeding, confused in bed in icu 06/26: no events to report, no bleeding, remains in icu, ++ bipap 06/27: icu,s/p paracentesis yesterday, off pressors, h/h stable 06/28: on ctx/flagyl, remains confused, no bleeding, plt is lower 06/29: no f/c, on abx, no acute events, no distress, labs reviewed 06/30: remains in the icu, on abx, no f/c, scds+ 07/02: remains in the icu, no fevers or chills, prbc ordered, as well as epo 07/03: remains in the icu, on restraints, on abx, labs noted, vs stable, no acute events 07/04: dw team and agree patient with very poor prognosis, pending bioethics consult Objective Objective Current Medications Medications (Trade) Dose Ordered Sig/Gabriela Route PRN Reason Start Time Stop Time Status Last Admin Dose Admin Albuterol/ Ipratropium (Albuterol/ Ipratropium) 3 ml Q4HRT HHN 07/04/19 15:00 07/09/19 14:59 07/04/19 14:30 Ceftriaxone Sodium 1 gm/ Dextrose 55 ml @ 110 mls/hr DAILY IVPB 06/27/19 13:00 07/08/19 12:59 07/04/19 08:41 Chlorhexidine Gluconate (Emilie-Hex 2%) 1 applic DAILY@2000 TOPIC 06/26/19 20:00 07/26/19 19:59 07/03/19 20:16 Dopamine HCl/ Dextrose 250 ml @ 0 mls/hr Q24H IV 06/30/19 14:53 07/30/19 14:52 Epoetin Michael (Epoetin Michael(ESRD on dialysis)) 2,000 unit TUE-TUE-TUE SUBQ 07/02/19 21:00 08/01/19 20:59 07/02/19 20:28 Epoetin Michael (Epoetin Michael(ESRD on dialysis)) 3,000 unit TUE-TUE-TUE SUBQ 07/02/19 21:00 08/01/19 20:59 07/02/19 20:28 Lactulose (Cephulac) 30 gm FOUR TIMES A DAY NG 07/01/19 09:00 07/20/19 12:59 07/04/19 13:49 Metronidazole (Flagyl) 500 mg Q8HR NG 06/27/19 14:00 07/08/19 13:59 07/04/19 13:48 Pantoprazole (Protonix) 40 mg EVERY 12 HOURS IVP 06/21/19 21:00 07/20/19 20:59 07/04/19 08:41 Last 24 Hour Vital Signs Date Time Temp Pulse Resp B/P (MAP) Pulse Ox O2 Delivery O2 Flow Rate FiO2 07/04/19 15:00 84 27 91/42 (58) 96 07/04/19 14:53 91/42 07/04/19 14:30 80 18 100 Nasal Cannula 3.0 32 07/04/19 14:00 79 24 90/47 (61) 97 07/04/19 13:00 75 23 91/51 (64) 98 07/04/19 12:00 99.7 73 25 93/49 (64) 99 07/04/19 12:00 99.7 75 25 106/49 (68) 99 07/04/19 12:00 87 07/04/19 12:00 Nasal Cannula 2.0 07/04/19 11:00 76 29 109/50 (69) 97 07/04/19 10:00 76 25 104/50 (68) 97 07/04/19 09:00 74 28 108/49 (68) 100 07/04/19 08:00 2.0 07/04/19 08:00 99.9 75 25 106/49 (68) 99 07/04/19 08:00 Nasal Cannula 2.0 07/04/19 08:00 76 07/04/19 07:00 82 30 127/57 (80) 100 07/04/19 06:55 96 Nasal Cannula 2.0 28 07/04/19 06:55 72 20 95 Nasal Cannula 2.0 28 07/04/19 06:00 75 22 110/54 (72) 97 07/04/19 05:00 69 20 104/43 (63) 95 07/04/19 04:00 74 07/04/19 04:00 2.0 07/04/19 04:00 Nasal Cannula 2.0 07/04/19 04:00 98.8 76 25 114/46 (68) 98 07/04/19 03:00 74 24 104/52 (69) 97 07/04/19 02:00 69 24 102/49 (66) 96 07/04/19 01:00 79 23 113/53 (73) 95 07/04/19 00:00 98.7 62 23 100/45 (63) 99 07/04/19 00:00 Nasal Cannula 2.0 07/04/19 00:00 76 07/03/19 23:00 69 27 112/49 (70) 97 07/03/19 22:30 97 2.0 28 07/03/19 22:00 69 24 116/47 (70) 97 07/03/19 21:00 70 26 108/49 (68) 97 07/03/19 20:00 3.0 07/03/19 20:00 Nasal Cannula 3.0 07/03/19 20:00 68 07/03/19 20:00 99.4 68 25 90/46 (61) 99 07/03/19 19:00 67 25 100/40 (60) 98 07/03/19 18:55 70 20 95 Nasal Cannula 2.0 28 07/03/19 18:55 96 Nasal Cannula 2.0 28 07/03/19 18:00 74 26 104/36 (58) 99 07/03/19 17:00 70 25 99/41 (60) 100 07/03/19 16:00 Bi-pap 07/03/19 16:00 30 07/03/19 16:00 98.8 82 23 114/80 (91) 100 07/03/19 16:00 64 07/03/19 15:36 66 27 100 Facial 30 07/03/19 15:00 66 17 93/39 (57) 100 07/03/19 14:00 67 20 98/39 (58) 100 07/03/19 13:49 69 28 100 Facial 30 07/03/19 13:00 66 23 91/41 (58) 97 07/03/19 12:00 68 07/03/19 12:00 30 07/03/19 12:00 Bi-pap 07/03/19 12:00 98.8 68 24 102/45 (64) 98 07/03/19 11:19 67 30 97 Facial 30 07/03/19 11:00 67 26 101/46 (64) 98 07/03/19 10:00 66 26 102/42 (62) 99 07/03/19 09:00 78 23 111/48 (69) 97 07/03/19 08:48 64 29 98 Facial 30 07/03/19 08:00 63 07/03/19 08:00 99.0 63 19 103/51 (68) 98 07/03/19 08:00 Bi-pap 07/03/19 08:00 30 07/03/19 07:00 69 21 97 Bi-Pap 30 07/03/19 07:00 64 21 98/42 (60) 97 07/03/19 07:00 97 Bi-Pap 30 07/03/19 06:59 62 21 97 Facial 30 07/03/19 06:00 65 26 96/40 (58) 97 07/03/19 05:07 73 26 98 Facial 30 07/03/19 05:00 67 22 91/36 (54) 97 07/03/19 04:00 Bi-pap 07/03/19 04:00 99.1 73 24 94/47 (63) 95 07/03/19 04:00 74 07/03/19 04:00 30 07/03/19 03:00 74 17 108/42 (64) 97 07/03/19 02:48 75 29 99 Facial 30 07/03/19 02:00 73 22 103/40 (61) 97 07/03/19 01:03 71 26 98 Facial 30 07/03/19 01:00 72 18 93/40 (57) 97 07/03/19 00:00 Bi-pap 07/03/19 00:00 99.9 73 15 99/42 (61) 98 07/03/19 00:00 69 07/03/19 00:00 30 07/02/19 23:00 74 21 111/66 (81) 99 07/02/19 22:46 72 26 97 Facial 30 07/02/19 22:00 74 24 94/42 (59) 99 07/02/19 21:00 70 20 104/44 (64) 99 07/02/19 20:51 70 30 99 Facial 30 07/02/19 20:00 35 07/02/19 20:00 Bi-pap 07/02/19 20:00 72 07/02/19 20:00 98.3 71 20 96/42 (60) 100 07/02/19 19:00 75 17 93/52 (66) 96 07/02/19 18:48 96 Bi-Pap 30 07/02/19 18:47 71 25 96 Bi-Pap 30 07/02/19 18:47 71 25 96 Facial 30 07/02/19 18:00 76 17 112/48 (69) 96 07/02/19 17:00 84 22 120/54 (76) 96 07/02/19 16:53 82 32 96 Facial 30 07/02/19 16:00 98.2 82 22 131/60 (83) 93 07/02/19 16:00 35 07/02/19 16:00 Nasal Cannula 2.0 Intake and Output 07/03/19 07/04/19 19:00 07:00 Intake Total 794.2 ml 1225 ml Output Total 2606 ml 1200 ml Balance -1811.8 ml 25 ml Free Water 130 ml 100 ml IV Total 604.2 ml 600 ml Tube Feeding 60 ml 525 ml Output Urine Total 6 ml 0 ml Stool Total 600 ml 1200 ml Hemodialysis UF 2000 ml Labs Test 07/02/19 04:00 07/02/19 08:20 07/02/19 09:00 07/02/19 13:20 White Blood Count 17.8 K/UL (4.8-10.8) Red Blood Count 2.27 M/UL (4.70-6.10) Hemoglobin 7.3 G/DL (14.2-18.0) Hematocrit 23.0 % (42.0-52.0) Mean Corpuscular Volume 101 FL (80-99) Mean Corpuscular Hemoglobin 32.1 PG (27.0-31.0) Mean Corpuscular Hemoglobin Concent 31.7 G/DL (32.0-36.0) Red Cell Distribution Width 24.2 % (11.6-14.8) Platelet Count 109 K/UL (150-450) Mean Platelet Volume 10.2 FL (6.5-10.1) Neutrophils (%) (Auto) % (45.0-75.0) Lymphocytes (%) (Auto) % (20.0-45.0) Monocytes (%) (Auto) % (1.0-10.0) Eosinophils (%) (Auto) % (0.0-3.0) Basophils (%) (Auto) % (0.0-2.0) Differential Total Cells Counted 100 Neutrophils % (Manual) 73 % (45-75) Lymphocytes % (Manual) 9 % (20-45) Monocytes % (Manual) 6 % (1-10) Eosinophils % (Manual) 3 % (0-3) Basophils % (Manual) 1 % (0-2) Myelocytes % 2 % (0-0) Band Neutrophils 6 % (0-8) Nucleated Red Blood Cells 1 /100 WBC Platelet Estimate Decreased Platelet Morphology Normal Polychromasia 1+ Hypochromasia 2+ Anisocytosis 3+ Macrocytosis 2+ Ovalocytes Occasional Hutchinson Cells 1+ Prothrombin Time 17.8 SEC (9.30-11.50) Prothromb Time International Ratio 1.7 (0.9-1.1) Sodium Level 145 MMOL/L (136-145) Potassium Level 3.7 MMOL/L (3.5-5.1) Chloride Level 117 MMOL/L (98-107) Carbon Dioxide Level 12 MMOL/L (21-32) Anion Gap 16 mmol/L (5-15) Blood Urea Nitrogen 72 mg/dL (7-18) Creatinine 6.1 MG/DL (0.55-1.30) Estimat Glomerular Filtration Rate 10.3 mL/min (>60) Glucose Level 138 MG/DL (74-106) Calcium Level 7.6 MG/DL (8.5-10.1) Phosphorus Level 5.7 MG/DL (2.5-4.9) Magnesium Level 2.1 MG/DL (1.8-2.4) Total Bilirubin 33.5 MG/DL (0.2-1.0) Direct Bilirubin 28.3 MG/DL (0.0-0.3) Aspartate Amino Transf (AST/SGOT) 102 U/L (15-37) Alanine Aminotransferase (ALT/SGPT) 19 U/L (12-78) Alkaline Phosphatase 226 U/L (46-116) Ammonia 73 umol/L (11-32) Total Protein 5.0 G/DL (6.4-8.2) Albumin 1.7 G/DL (3.4-5.0) Globulin 3.3 g/dL Albumin/Globulin Ratio 0.5 (1.0-2.7) Arterial Blood pH 7.157 (7.350-7.450) Arterial Blood Partial Pressure CO2 28.2 mmHg (35.0-45.0) Arterial Blood Partial Pressure O2 85.4 mmHg (75.0-100.0) Arterial Blood HCO3 9.8 mmol/L (22.0-26.0) Arterial Blood Oxygen Saturation 94.0 % (95-100) Arterial Blood Base Excess -17.5 (-2-2) Dave Test Positive Activated Partial Thromboplast Time 38 SEC (23-33) Test 07/02/19 16:45 07/03/19 03:25 07/03/19 15:28 07/04/19 03:35 Arterial Blood pH 7.276 (7.350-7.450) 7.542 (7.350-7.450) Arterial Blood Partial Pressure CO2 39.8 mmHg (35.0-45.0) 25.4 mmHg (35.0-45.0) Arterial Blood Partial Pressure O2 88.1 mmHg (75.0-100.0) 116.2 mmHg (75.0-100.0) Arterial Blood HCO3 18.1 mmol/L (22.0-26.0) 21.3 mmol/L (22.0-26.0) Arterial Blood Oxygen Saturation 95.8 % (95-100) 98.6 % (95-100) Arterial Blood Base Excess -8.1 (-2-2) -0.6 (-2-2) Dave Test Positive Positive White Blood Count 18.7 K/UL (4.8-10.8) 19.5 K/UL (4.8-10.8) Red Blood Count 2.42 M/UL (4.70-6.10) 2.44 M/UL (4.70-6.10) Hemoglobin 7.7 G/DL (14.2-18.0) 7.8 G/DL (14.2-18.0) Hematocrit 23.8 % (42.0-52.0) 23.9 % (42.0-52.0) Mean Corpuscular Volume 99 FL (80-99) 98 FL (80-99) Mean Corpuscular Hemoglobin 32.0 PG (27.0-31.0) 31.9 PG (27.0-31.0) Mean Corpuscular Hemoglobin Concent 32.5 G/DL (32.0-36.0) 32.4 G/DL (32.0-36.0) Red Cell Distribution Width 23.9 % (11.6-14.8) 24.8 % (11.6-14.8) Platelet Count 108 K/UL (150-450) 147 K/UL (150-450) Mean Platelet Volume 8.7 FL (6.5-10.1) 8.8 FL (6.5-10.1) Neutrophils (%) (Auto) % (45.0-75.0) % (45.0-75.0) Lymphocytes (%) (Auto) % (20.0-45.0) % (20.0-45.0) Monocytes (%) (Auto) % (1.0-10.0) % (1.0-10.0) Eosinophils (%) (Auto) % (0.0-3.0) % (0.0-3.0) Basophils (%) (Auto) % (0.0-2.0) % (0.0-2.0) Differential Total Cells Counted 100 100 Neutrophils % (Manual) 77 % (45-75) 74 % (45-75) Lymphocytes % (Manual) 16 % (20-45) 10 % (20-45) Monocytes % (Manual) 6 % (1-10) 9 % (1-10) Eosinophils % (Manual) 1 % (0-3) 1 % (0-3) Basophils % (Manual) 0 % (0-2) 0 % (0-2) Band Neutrophils 0 % (0-8) 6 % (0-8) Platelet Estimate Decreased Decreased Platelet Morphology Normal Normal Polychromasia 1+ 1+ Hypochromasia 1+ 1+ Anisocytosis 3+ 3+ Sodium Level 150 MMOL/L (136-145) 151 MMOL/L (136-145) Potassium Level 3.2 MMOL/L (3.5-5.1) 3.0 MMOL/L (3.5-5.1) Chloride Level 116 MMOL/L (98-107) 115 MMOL/L (98-107) Carbon Dioxide Level 18 MMOL/L (21-32) 22 MMOL/L (21-32) Anion Gap 16 mmol/L (5-15) 14 mmol/L (5-15) Blood Urea Nitrogen 58 mg/dL (7-18) 48 mg/dL (7-18) Creatinine 5.6 MG/DL (0.55-1.30) 5.8 MG/DL (0.55-1.30) Estimat Glomerular Filtration Rate 11.4 mL/min (>60) 10.9 mL/min (>60) Glucose Level 115 MG/DL (74-106) 150 MG/DL (74-106) Uric Acid 8.9 MG/DL (2.6-7.2) Calcium Level 7.7 MG/DL (8.5-10.1) 7.6 MG/DL (8.5-10.1) Phosphorus Level 4.9 MG/DL (2.5-4.9) 3.9 MG/DL (2.5-4.9) Magnesium Level 2.1 MG/DL (1.8-2.4) 2.0 MG/DL (1.8-2.4) Total Bilirubin 31.9 MG/DL (0.2-1.0) 31.8 MG/DL (0.2-1.0) Direct Bilirubin 26.2 MG/DL (0.0-0.3) 26.2 MG/DL (0.0-0.3) Aspartate Amino Transf (AST/SGOT) 125 U/L (15-37) 145 U/L (15-37) Alanine Aminotransferase (ALT/SGPT) 20 U/L (12-78) 121 U/L (12-78) Alkaline Phosphatase 226 U/L (46-116) 140 U/L (46-116) C-Reactive Protein, Quantitative 11.4 mg/dL (0.00-0.90) Pro-B-Type Natriuretic Peptide 3102 pg/mL (0-125) Total Protein 4.7 G/DL (6.4-8.2) 4.8 G/DL (6.4-8.2) Albumin 1.6 G/DL (3.4-5.0) 1.5 G/DL (3.4-5.0) Globulin 3.1 g/dL 3.3 g/dL Albumin/Globulin Ratio 0.5 (1.0-2.7) Nucleated Red Blood Cells 2 /100 WBC Prothrombin Time 18.5 SEC (9.30-11.50) Prothromb Time International Ratio 1.8 (0.9-1.1) Activated Partial Thromboplast Time 37 SEC (23-33) Test 07/04/19 09:00 Ammonia 45 umol/L (11-32) Height (Feet): 5 Height (Inches): 9.00 Weight (Pounds): 217 Objective Physical Exam: Vitals: reviewed General Appearance: NAD HEENT: normocephalic, atraumatic ++ icterus jaundice, ng+ Neck: non-tender, normal alignment Respiratory/Chest: normal breath sounds bilaterally++ nc Cardiovascular/Chest: normal peripheral pulses, normal rate Abdomen: normal bowel sounds, soft,+ peg Extremities: normal range of motion Marty Kebede MD Jul 04, 2019 15:52
--- NOTE | 2019-07-04 17:50 | Cardiac Electrophysiology PN ---
Assessment/Plan Assessment/Plan 1. Sinus tach due to alcohol withdrawal and hepatic encephalopathy. No SVT or atrial fibrillation. EF 55% 2. Cirrhosis. On Lactulose . S/P paracentesis 3. Hypotension BP 80 better after albumin . DC Midodrine 4. Hepatorenal syndrome. Howard Jaramillo. S/P Carrillo Catheter and HD 5. Hypokalemia. 6. Alcohol intoxication. Thiamine, folate, and Librium. 7. Hepatic encephalopathy DW RN Subjective Subjective In ICU off restraints and lethargic. No arrhythmias and off pressors. Midodrine DCed Objective Last 24 Hour Vital Signs Date Time Temp Pulse Resp B/P (MAP) Pulse Ox O2 Delivery O2 Flow Rate FiO2 07/04/19 17:00 78 29 111/64 (80) 96 07/04/19 16:00 87 07/04/19 16:00 Nasal Cannula 2.0 07/04/19 16:00 99.9 87 30 111/64 (80) 97 07/04/19 15:00 84 27 91/42 (58) 96 07/04/19 14:53 91/42 07/04/19 14:30 80 18 100 Nasal Cannula 3.0 32 07/04/19 14:00 79 24 90/47 (61) 97 07/04/19 13:00 75 23 91/51 (64) 98 07/04/19 12:00 99.7 73 25 93/49 (64) 99 07/04/19 12:00 87 07/04/19 12:00 Nasal Cannula 2.0 07/04/19 11:00 76 29 109/50 (69) 97 07/04/19 10:00 76 25 104/50 (68) 97 07/04/19 09:00 74 28 108/49 (68) 100 07/04/19 08:00 2.0 07/04/19 08:00 99.9 75 25 106/49 (68) 99 07/04/19 08:00 Nasal Cannula 2.0 07/04/19 08:00 76 07/04/19 07:00 82 30 127/57 (80) 100 07/04/19 06:55 96 Nasal Cannula 2.0 28 07/04/19 06:55 72 20 95 Nasal Cannula 2.0 28 07/04/19 06:00 75 22 110/54 (72) 97 07/04/19 05:00 69 20 104/43 (63) 95 07/04/19 04:00 74 07/04/19 04:00 2.0 07/04/19 04:00 Nasal Cannula 2.0 07/04/19 04:00 98.8 76 25 114/46 (68) 98 07/04/19 03:00 74 24 104/52 (69) 97 07/04/19 02:00 69 24 102/49 (66) 96 07/04/19 01:00 79 23 113/53 (73) 95 07/04/19 00:00 98.7 62 23 100/45 (63) 99 07/04/19 00:00 Nasal Cannula 2.0 07/04/19 00:00 76 07/03/19 23:00 69 27 112/49 (70) 97 07/03/19 22:30 97 2.0 28 07/03/19 22:00 69 24 116/47 (70) 97 07/03/19 21:00 70 26 108/49 (68) 97 07/03/19 20:00 3.0 07/03/19 20:00 Nasal Cannula 3.0 07/03/19 20:00 68 07/03/19 20:00 99.4 68 25 90/46 (61) 99 07/03/19 19:00 67 25 100/40 (60) 98 07/03/19 18:55 70 20 95 Nasal Cannula 2.0 28 07/03/19 18:55 96 Nasal Cannula 2.0 28 07/03/19 18:00 74 26 104/36 (58) 99 Intake and Output 07/03/19 07/04/19 19:00 07:00 Intake Total 794.2 ml 1225 ml Output Total 2606 ml 1200 ml Balance -1811.8 ml 25 ml Free Water 130 ml 100 ml IV Total 604.2 ml 600 ml Tube Feeding 60 ml 525 ml Output Urine Total 6 ml 0 ml Stool Total 600 ml 1200 ml Hemodialysis UF 2000 ml Laboratory Tests Test 07/04/19 03:35 07/04/19 09:00 White Blood Count 19.5 K/UL (4.8-10.8) H Red Blood Count 2.44 M/UL (4.70-6.10) L Hemoglobin 7.8 G/DL (14.2-18.0) L Hematocrit 23.9 % (42.0-52.0) L Mean Corpuscular Volume 98 FL (80-99) Mean Corpuscular Hemoglobin 31.9 PG (27.0-31.0) H Mean Corpuscular Hemoglobin Concent 32.4 G/DL (32.0-36.0) Red Cell Distribution Width 24.8 % (11.6-14.8) H Platelet Count 147 K/UL (150-450) L Mean Platelet Volume 8.8 FL (6.5-10.1) Neutrophils (%) (Auto) % (45.0-75.0) Lymphocytes (%) (Auto) % (20.0-45.0) Monocytes (%) (Auto) % (1.0-10.0) Eosinophils (%) (Auto) % (0.0-3.0) Basophils (%) (Auto) % (0.0-2.0) Differential Total Cells Counted 100 Neutrophils % (Manual) 74 % (45-75) Lymphocytes % (Manual) 10 % (20-45) L Monocytes % (Manual) 9 % (1-10) Eosinophils % (Manual) 1 % (0-3) Basophils % (Manual) 0 % (0-2) Band Neutrophils 6 % (0-8) Nucleated Red Blood Cells 2 /100 WBC Platelet Estimate Decreased L Platelet Morphology Normal Polychromasia 1+ Hypochromasia 1+ Anisocytosis 3+ Prothrombin Time 18.5 SEC (9.30-11.50) H Prothromb Time International Ratio 1.8 (0.9-1.1) H Activated Partial Thromboplast Time 37 SEC (23-33) H Sodium Level 151 MMOL/L (136-145) H Potassium Level 3.0 MMOL/L (3.5-5.1) L Chloride Level 115 MMOL/L (98-107) H Carbon Dioxide Level 22 MMOL/L (21-32) Anion Gap 14 mmol/L (5-15) Blood Urea Nitrogen 48 mg/dL (7-18) H Creatinine 5.8 MG/DL (0.55-1.30) H Estimat Glomerular Filtration Rate 10.9 mL/min (>60) Glucose Level 150 MG/DL (74-106) H Calcium Level 7.6 MG/DL (8.5-10.1) L Phosphorus Level 3.9 MG/DL (2.5-4.9) Magnesium Level 2.0 MG/DL (1.8-2.4) Total Bilirubin 31.8 MG/DL (0.2-1.0) H Direct Bilirubin 26.2 MG/DL (0.0-0.3) H Aspartate Amino Transf (AST/SGOT) 145 U/L (15-37) H Alanine Aminotransferase (ALT/SGPT) 121 U/L (12-78) H Alkaline Phosphatase 140 U/L (46-116) H Total Protein 4.8 G/DL (6.4-8.2) L Albumin 1.5 G/DL (3.4-5.0) L Globulin 3.3 g/dL Ammonia 45 umol/L (11-32) H Objective HEAD AND NECK: No JVD. Sclera is icteric. R IJ Perm Cath LUNGS: Decreased breath sounds. CARDIOVASCULAR: Tachy S1 and S2 with no gallop. ABDOMEN: Distended with ascites. EXTREMITIES: 2+ pitting edema. Felice Smith MD Jul 04, 2019 17:50
[2019-07-04] MEDS: Dyna-Hex 2% Top Sol 2oz TOPIC SCH (20:35)
[2019-07-04] MEDS: Epoetin Alfa-EPBX(ESRD on dialysis)3000 units/ml vial SUBQ SCH (20:37)
[2019-07-04] MEDS: Epoetin Alfa-EPBX(ESRD on dialysis)2000 units/ml vial SUBQ SCH (20:37)
[2019-07-05] VITALS (49 sets, daily range): BP systolic 80–136; BP diastolic 38–67
[2019-07-05] MEDS: Albuterol/Ipratropium 3ml neb HHN SCH ×6 (03:53→22:38)
--- NOTE | 2019-07-05 04:00 | Progress Note ---
DATE: 07/04/2019 SUBJECTIVE: The patient has very poor prognosis. Awaiting for the family. He had failure of comfort measure and DNR as well. The patient has hepatorenal syndrome with very minimal chances of reversal of electrolyte imbalance, hypertension, abdominal ascites, and status post paracenteses. ASSESSMENT AND PLAN: The patient is not improving. Hepatorenal syndrome is worsening. The patient is jaundiced, low-grade fever. He has alcohol abuse with failure of comfort cares. Deejay Saldaña M.D. DR: BRADY JOB#: [id number] CC:
[2019-07-05 04:49] LABS: HEMATOCRIT 23.8 % (42.0-52.0); HEMOGLOBIN 7.8 G/DL (14.2-18.0); MEAN CORPUSCULAR VOLUME 98 FL (80-99); PLATELET COUNT 176 K/UL (150-450); RED BLOOD COUNT 2.42 M/UL (4.70-6.10); RED CELL DISTRIBUTION WIDTH 24.6 % (11.6-14.8)
[2019-07-05 05:07] LABS: WHITE BLOOD COUNT 27.4 K/UL (4.8-10.8)
[2019-07-05] MEDS: metroNIDAZOLE 500mg tab NG SCH (05:20)
[2019-07-05 05:32] LABS: ALANINE AMINOTRANSFERASE 21 U/L (12-78); ALBUMIN 1.5 G/DL (3.4-5.0); ALBUMIN/GLOBULIN RATIO 0.4 (1.0-2.7); ALKALINE PHOSPHATASE 264 U/L (46-116); ANION GAP 17 mmol/L (5-15); ASPARTATE AMINO TRANSFERASE 144 U/L (15-37); BLOOD UREA NITROGEN 62 mg/dL (7-18); CALCIUM 7.9 MG/DL (8.5-10.1); CARBON DIOXIDE 19 MMOL/L (21-32); CHLORIDE 117 MMOL/L (98-107); CREATININE 7.4 MG/DL (0.55-1.30); SODIUM 153 MMOL/L (136-145)
[2019-07-05 05:45] LABS: POTASSIUM 2.7 MMOL/L (3.5-5.1)
[2019-07-05 05:57] LABS: BILIRUBIN,DIRECT 26.5 MG/DL (0.0-0.3)
--- NOTE | 2019-07-05 08:39 | Hematology/Onc Progress Note ---
Assessment/Plan Assessment/Plan Assessment and Recs: # Thrombocytopenia - potential causes multifactorial, does have a history of etoh abuse, cirrhosis of the liver, hepatosplenomegaly, portal HTN, coagulopathy noted as well, likely oscillatory pattern can be due to abx as well --> Hep panel and HIV ordered (NEG) --> US abd does show, portal htn and cirrhosis ++ --> Peripheral smear ordered to evaluate for blasts /schistocytes reviewed and is negative --> abx and other meds have been reviewed --> ok for ppx if plt >50k w/ either heparin or lovenox --> Transfuse if Plt < 20k and fever, or if Plt < 10k without fever --> plt trend 80-->97-->117-->157k->216k-->107k-->72k-->68k-->109k-->108k-->148k -->176k # Anemia of chronic disease due to underlying chronic medical issues, multifactorial (myelosuprresion noted) --> Anemia workup has been reviewed, ferritin 297 --> EPOGEN HAS BEEN ORDERED WITH HD --> Hgb goal >7. Transfuse prn. --> Epogen or iron at this time is not particularly indicated --> Medications have been reviewed --> low threshold for gi evaluation in case has occult + --> hgb trend: 7.7-->8.2-->9->8.4-->8.3-->8.2-->8-->7.4->7.3-->7.7-->7.8 --> serum electrophoresis shows no m-spike 06/27 # Coagulopathy due to cirrhosis --> give Vitk as needed # Leukocytosis with sepsis is on abx --> ID following, appreciate recs --> wbc trend: 17k-->13.9-->19.5-->18.7-->27.4 --> FLAGYL and CTX # Acute alcoholic intoxication --> etoh abuse history --> thiamine, folic acid, ivf # End-stage liver disease --> Hepatorenal syndrome r/o with renal, albumin prn # Pancreatitis, alcoholic, acute # Tachycardia # Dvt ppx with scds given low plts # POOR PROGNOSIS, Bioethics consult pending The timing of this note does not necessarily reflect the time of the patient was seen. GREATLY APPRECIATE CONSULTATION. Subjective Allergies: Coded Allergies: No Known Allergies (Unverified , 06/20/19) Subjective 06/21: low k, ferritin 297, h/h stable, afebrile, blood transfused 06/22: in icu, on restraints, labs reviewed, no f/c, imaging reviewed 06/23: pain meds given, remains in icu, again in restraints, bili higher, inr as well, given vitk 06/25: no fevers, no chills, no bleeding, confused in bed in icu 06/26: no events to report, no bleeding, remains in icu, ++ bipap 06/27: icu,s/p paracentesis yesterday, off pressors, h/h stable 06/28: on ctx/flagyl, remains confused, no bleeding, plt is lower 06/29: no f/c, on abx, no acute events, no distress, labs reviewed 06/30: remains in the icu, on abx, no f/c, scds+ 07/02: remains in the icu, no fevers or chills, prbc ordered, as well as epo 07/03: remains in the icu, on restraints, on abx, labs noted, vs stable, no acute events 07/04: dw team and agree patient with very poor prognosis, pending bioethics consult 07/05: remains in icu, very poor prognosis, labs noted wbc 27.4, off bipap receiving repiratory tx Objective Objective Current Medications Medications (Trade) Dose Ordered Sig/Gabriela Route PRN Reason Start Time Stop Time Status Last Admin Dose Admin Albuterol/ Ipratropium (Albuterol/ Ipratropium) 3 ml Q4HRT HHN 07/04/19 15:00 07/09/19 14:59 07/05/19 06:41 Ceftriaxone Sodium 1 gm/ Dextrose 55 ml @ 110 mls/hr DAILY IVPB 06/27/19 13:00 07/08/19 12:59 07/04/19 08:41 Chlorhexidine Gluconate (Emilie-Hex 2%) 1 applic DAILY@2000 TOPIC 06/26/19 20:00 07/26/19 19:59 07/04/19 20:35 Dopamine HCl/ Dextrose 250 ml @ 0 mls/hr Q24H IV 06/30/19 14:53 07/30/19 14:52 Epoetin Michael (Epoetin Michael(ESRD on dialysis)) 2,000 unit SUBQ 07/02/19 21:00 08/01/19 20:59 07/04/19 20:37 Epoetin Michael (Epoetin Michael(ESRD on dialysis)) 3,000 unit SUBQ 07/02/19 21:00 08/01/19 20:59 07/04/19 20:37 Lactulose (Cephulac) 30 gm FOUR TIMES A DAY NG 07/01/19 09:00 07/20/19 12:59 07/04/19 20:35 Metronidazole (Flagyl) 500 mg Q8HR NG 06/27/19 14:00 07/08/19 13:59 07/05/19 05:20 Pantoprazole (Protonix) 40 mg EVERY 12 HOURS IVP 06/21/19 21:00 07/20/19 20:59 07/04/19 20:35 Potassium Chloride 100 ml @ 50 mls/hr Q2H IVPB 07/05/19 08:30 07/05/19 12:29 Last 24 Hour Vital Signs Date Time Temp Pulse Resp B/P (MAP) Pulse Ox O2 Delivery O2 Flow Rate FiO2 07/05/19 07:00 98 28 136/50 (78) 99 07/05/19 06:43 93 31 100 Nasal Cannula 3.0 32 89 31 100 07/05/19 06:39 100 Bi-Pap 28 07/05/19 06:00 96 26 114/53 (73) 100 07/05/19 05:00 98 26 106/48 (67) 99 07/05/19 04:53 97 34 100 Full Face 28 07/05/19 04:00 98.7 94 27 108/52 (70) 99 07/05/19 04:00 96 07/05/19 04:00 Nasal Cannula 2.0 07/05/19 03:57 98 32 98 Full Face 28 07/05/19 03:54 99 31 100 Bi-Pap 28 97 31 98 07/05/19 03:00 93 26 108/64 (79) 99 07/05/19 02:00 96 26 109/51 (70) 99 07/05/19 01:50 90 28 100 Full Face 28 07/05/19 01:00 87 26 95/50 (65) 98 07/05/19 00:00 Nasal Cannula 2.0 07/05/19 00:00 70 07/05/19 00:00 99.1 90 26 100/52 (68) 99 07/04/19 23:58 Full Face 07/04/19 23:44 92 34 94 Facial 28 92 34 94 Bi-Pap 28 07/04/19 23:00 87 27 107/52 (70) 98 07/04/19 22:00 88 27 102/50 (67) 97 07/04/19 21:17 92 32 100 Facial 28 07/04/19 21:00 86 27 104/50 (68) 99 07/04/19 20:15 84 35 100 Facial 28 07/04/19 20:00 99.2 87 28 107/55 (72) 98 07/04/19 20:00 88 30 100 Nasal Cannula 2.0 28 84 27 98 07/04/19 20:00 Nasal Cannula 2.0 07/04/19 20:00 Bi-Pap 07/04/19 20:00 86 07/04/19 19:00 82 28 105/50 (68) 97 07/04/19 18:00 78 28 112/53 (72) 98 07/04/19 17:00 78 29 111/64 (80) 96 07/04/19 16:00 87 07/04/19 16:00 Nasal Cannula 2.0 07/04/19 16:00 99.9 87 30 111/64 (80) 97 07/04/19 15:00 84 27 91/42 (58) 96 07/04/19 14:53 91/42 07/04/19 14:30 80 18 100 Nasal Cannula 3.0 32 07/04/19 14:00 79 24 90/47 (61) 97 07/04/19 13:00 75 23 91/51 (64) 98 07/04/19 12:00 99.7 73 25 93/49 (64) 99 07/04/19 12:00 87 07/04/19 12:00 Nasal Cannula 2.0 07/04/19 11:00 76 29 109/50 (69) 97 07/04/19 10:00 76 25 104/50 (68) 97 07/04/19 09:00 74 28 108/49 (68) 100 07/04/19 08:00 2.0 07/04/19 08:00 99.9 75 25 106/49 (68) 99 07/04/19 08:00 Nasal Cannula 2.0 07/04/19 08:00 76 07/04/19 07:00 82 30 127/57 (80) 100 07/04/19 06:55 96 Nasal Cannula 2.0 28 07/04/19 06:55 72 20 95 Nasal Cannula 2.0 28 07/04/19 06:00 75 22 110/54 (72) 97 07/04/19 05:00 69 20 104/43 (63) 95 07/04/19 04:00 74 07/04/19 04:00 2.0 07/04/19 04:00 Nasal Cannula 2.0 07/04/19 04:00 98.8 76 25 114/46 (68) 98 07/04/19 03:00 74 24 104/52 (69) 97 07/04/19 02:00 69 24 102/49 (66) 96 07/04/19 01:00 79 23 113/53 (73) 95 07/04/19 00:00 98.7 62 23 100/45 (63) 99 07/04/19 00:00 Nasal Cannula 2.0 07/04/19 00:00 76 07/03/19 23:00 69 27 112/49 (70) 97 07/03/19 22:30 97 2.0 28 07/03/19 22:00 69 24 116/47 (70) 97 07/03/19 21:00 70 26 108/49 (68) 97 07/03/19 20:00 3.0 07/03/19 20:00 Nasal Cannula 3.0 07/03/19 20:00 68 07/03/19 20:00 99.4 68 25 90/46 (61) 99 07/03/19 19:00 67 25 100/40 (60) 98 07/03/19 18:55 70 20 95 Nasal Cannula 2.0 28 07/03/19 18:55 96 Nasal Cannula 2.0 28 07/03/19 18:00 74 26 104/36 (58) 99 07/03/19 17:00 70 25 99/41 (60) 100 07/03/19 16:00 Bi-pap 07/03/19 16:00 30 07/03/19 16:00 98.8 82 23 114/80 (91) 100 07/03/19 16:00 64 07/03/19 15:36 66 27 100 Facial 30 07/03/19 15:00 66 17 93/39 (57) 100 07/03/19 14:00 67 20 98/39 (58) 100 07/03/19 13:49 69 28 100 Facial 30 07/03/19 13:00 66 23 91/41 (58) 97 07/03/19 12:00 68 07/03/19 12:00 30 07/03/19 12:00 Bi-pap 07/03/19 12:00 98.8 68 24 102/45 (64) 98 07/03/19 11:19 67 30 97 Facial 30 07/03/19 11:00 67 26 101/46 (64) 98 07/03/19 10:00 66 26 102/42 (62) 99 07/03/19 09:00 78 23 111/48 (69) 97 07/03/19 08:48 64 29 98 Facial 30 Intake and Output 07/04/19 07/05/19 18:59 06:59 Intake Total 1106 ml 740 ml Output Total 900 ml 710 ml Balance 206 ml 30 ml Free Water 100 ml 200 ml IV Total 566 ml Tube Feeding 440 ml 540 ml Output Urine Total 0 ml 60 ml Stool Total 900 ml 650 ml Labs Test 07/02/19 09:00 07/02/19 13:20 07/02/19 16:45 07/03/19 03:25 Activated Partial Thromboplast Time 38 SEC (23-33) Arterial Blood pH 7.276 (7.350-7.450) Arterial Blood Partial Pressure CO2 39.8 mmHg (35.0-45.0) Arterial Blood Partial Pressure O2 88.1 mmHg (75.0-100.0) Arterial Blood HCO3 18.1 mmol/L (22.0-26.0) Arterial Blood Oxygen Saturation 95.8 % (95-100) Arterial Blood Base Excess -8.1 (-2-2) Dave Test Positive White Blood Count 18.7 K/UL (4.8-10.8) Red Blood Count 2.42 M/UL (4.70-6.10) Hemoglobin 7.7 G/DL (14.2-18.0) Hematocrit 23.8 % (42.0-52.0) Mean Corpuscular Volume 99 FL (80-99) Mean Corpuscular Hemoglobin 32.0 PG (27.0-31.0) Mean Corpuscular Hemoglobin Concent 32.5 G/DL (32.0-36.0) Red Cell Distribution Width 23.9 % (11.6-14.8) Platelet Count 108 K/UL (150-450) Mean Platelet Volume 8.7 FL (6.5-10.1) Neutrophils (%) (Auto) % (45.0-75.0) Lymphocytes (%) (Auto) % (20.0-45.0) Monocytes (%) (Auto) % (1.0-10.0) Eosinophils (%) (Auto) % (0.0-3.0) Basophils (%) (Auto) % (0.0-2.0) Differential Total Cells Counted 100 Neutrophils % (Manual) 77 % (45-75) Lymphocytes % (Manual) 16 % (20-45) Monocytes % (Manual) 6 % (1-10) Eosinophils % (Manual) 1 % (0-3) Basophils % (Manual) 0 % (0-2) Band Neutrophils 0 % (0-8) Platelet Estimate Decreased Platelet Morphology Normal Polychromasia 1+ Hypochromasia 1+ Anisocytosis 3+ Sodium Level 150 MMOL/L (136-145) Potassium Level 3.2 MMOL/L (3.5-5.1) Chloride Level 116 MMOL/L (98-107) Carbon Dioxide Level 18 MMOL/L (21-32) Anion Gap 16 mmol/L (5-15) Blood Urea Nitrogen 58 mg/dL (7-18) Creatinine 5.6 MG/DL (0.55-1.30) Estimat Glomerular Filtration Rate 11.4 mL/min (>60) Glucose Level 115 MG/DL (74-106) Uric Acid 8.9 MG/DL (2.6-7.2) Calcium Level 7.7 MG/DL (8.5-10.1) Phosphorus Level 4.9 MG/DL (2.5-4.9) Magnesium Level 2.1 MG/DL (1.8-2.4) Total Bilirubin 31.9 MG/DL (0.2-1.0) Direct Bilirubin 26.2 MG/DL (0.0-0.3) Aspartate Amino Transf (AST/SGOT) 125 U/L (15-37) Alanine Aminotransferase (ALT/SGPT) 20 U/L (12-78) Alkaline Phosphatase 226 U/L (46-116) C-Reactive Protein, Quantitative 11.4 mg/dL (0.00-0.90) Pro-B-Type Natriuretic Peptide 3102 pg/mL (0-125) Total Protein 4.7 G/DL (6.4-8.2) Albumin 1.6 G/DL (3.4-5.0) Globulin 3.1 g/dL Albumin/Globulin Ratio 0.5 (1.0-2.7) Test 07/03/19 15:28 07/04/19 03:35 07/04/19 09:00 07/05/19 04:00 Arterial Blood pH 7.542 (7.350-7.450) Arterial Blood Partial Pressure CO2 25.4 mmHg (35.0-45.0) Arterial Blood Partial Pressure O2 116.2 mmHg (75.0-100.0) Arterial Blood HCO3 21.3 mmol/L (22.0-26.0) Arterial Blood Oxygen Saturation 98.6 % (95-100) Arterial Blood Base Excess -0.6 (-2-2) Dave Test Positive White Blood Count 19.5 K/UL (4.8-10.8) 27.4 K/UL (4.8-10.8) Red Blood Count 2.44 M/UL (4.70-6.10) 2.42 M/UL (4.70-6.10) Hemoglobin 7.8 G/DL (14.2-18.0) 7.8 G/DL (14.2-18.0) Hematocrit 23.9 % (42.0-52.0) 23.8 % (42.0-52.0) Mean Corpuscular Volume 98 FL (80-99) 98 FL (80-99) Mean Corpuscular Hemoglobin 31.9 PG (27.0-31.0) 32.3 PG (27.0-31.0) Mean Corpuscular Hemoglobin Concent 32.4 G/DL (32.0-36.0) 32.9 G/DL (32.0-36.0) Red Cell Distribution Width 24.8 % (11.6-14.8) 24.6 % (11.6-14.8) Platelet Count 147 K/UL (150-450) 176 K/UL (150-450) Mean Platelet Volume 8.8 FL (6.5-10.1) 8.0 FL (6.5-10.1) Neutrophils (%) (Auto) % (45.0-75.0) % (45.0-75.0) Lymphocytes (%) (Auto) % (20.0-45.0) % (20.0-45.0) Monocytes (%) (Auto) % (1.0-10.0) % (1.0-10.0) Eosinophils (%) (Auto) % (0.0-3.0) % (0.0-3.0) Basophils (%) (Auto) % (0.0-2.0) % (0.0-2.0) Differential Total Cells Counted 100 Neutrophils % (Manual) 74 % (45-75) Lymphocytes % (Manual) 10 % (20-45) Monocytes % (Manual) 9 % (1-10) Eosinophils % (Manual) 1 % (0-3) Basophils % (Manual) 0 % (0-2) Band Neutrophils 6 % (0-8) Nucleated Red Blood Cells 2 /100 WBC Platelet Estimate Decreased Platelet Morphology Normal Polychromasia 1+ Hypochromasia 1+ Anisocytosis 3+ Prothrombin Time 18.5 SEC (9.30-11.50) Prothromb Time International Ratio 1.8 (0.9-1.1) Activated Partial Thromboplast Time 37 SEC (23-33) Sodium Level 151 MMOL/L (136-145) 153 MMOL/L (136-145) Potassium Level 3.0 MMOL/L (3.5-5.1) 2.7 MMOL/L (3.5-5.1) Chloride Level 115 MMOL/L (98-107) 117 MMOL/L (98-107) Carbon Dioxide Level 22 MMOL/L (21-32) 19 MMOL/L (21-32) Anion Gap 14 mmol/L (5-15) 17 mmol/L (5-15) Blood Urea Nitrogen 48 mg/dL (7-18) 62 mg/dL (7-18) Creatinine 5.8 MG/DL (0.55-1.30) 7.4 MG/DL (0.55-1.30) Estimat Glomerular Filtration Rate 10.9 mL/min (>60) 8.3 mL/min (>60) Glucose Level 150 MG/DL (74-106) 162 MG/DL (74-106) Calcium Level 7.6 MG/DL (8.5-10.1) 7.9 MG/DL (8.5-10.1) Phosphorus Level 3.9 MG/DL (2.5-4.9) 3.4 MG/DL (2.5-4.9) Magnesium Level 2.0 MG/DL (1.8-2.4) Total Bilirubin 31.8 MG/DL (0.2-1.0) 33.0 MG/DL (0.2-1.0) Direct Bilirubin 26.2 MG/DL (0.0-0.3) 26.5 MG/DL (0.0-0.3) Aspartate Amino Transf (AST/SGOT) 145 U/L (15-37) 144 U/L (15-37) Alanine Aminotransferase (ALT/SGPT) 121 U/L (12-78) 21 U/L (12-78) Alkaline Phosphatase 140 U/L (46-116) 264 U/L (46-116) Total Protein 4.8 G/DL (6.4-8.2) 4.9 G/DL (6.4-8.2) Albumin 1.5 G/DL (3.4-5.0) 1.5 G/DL (3.4-5.0) Globulin 3.3 g/dL 3.4 g/dL Ammonia 45 umol/L (11-32) Albumin/Globulin Ratio 0.4 (1.0-2.7) Height (Feet): 5 Height (Inches): 9.00 Weight (Pounds): 217 Objective Physical Exam: Vitals: reviewed General Appearance: NAD HEENT: normocephalic, atraumatic ++ icterus jaundice, ng+ Neck: non-tender, normal alignment Respiratory/Chest: normal breath sounds bilaterally++ nc Cardiovascular/Chest: normal peripheral pulses, normal rate Abdomen: normal bowel sounds, soft,+ peg Extremities: normal range of motion Marty Kebede MD Jul 05, 2019 08:39
[2019-07-05] MEDS: Lactulose 20gm/30ml UDC NG SCH ×4 (08:59→20:28)
[2019-07-05] MEDS: Pantoprazole Inj IVP SCH ×2 (08:59→20:28)
[2019-07-05] MEDS: cefTRIAXone 1 GM in D5W 55 ML IVPB SCH (09:06)
--- NOTE | 2019-07-05 09:23 | Nephrology Progress Note ---
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 will discuss with family regarding DNR and comfort care K and Mag and phos supplement as needed has parker NO OUTPUT has RT (rectal tube) on lactulose discussed with RN Correct lytes IV protonix lactulose Folate and Thiamin per GI transfuse per consultants Subjective ROS Limited/Unobtainable: No Constitutional: Reports: malaise, weakness Objective Objective Last 24 Hour Vital Signs Date Time Temp Pulse Resp B/P (MAP) Pulse Ox O2 Delivery O2 Flow Rate FiO2 07/05/19 09:00 97 30 89/63 (72) 97 07/05/19 08:00 100.6 96 32 89/49 (62) 97 07/05/19 07:00 98 28 136/50 (78) 99 07/05/19 06:43 93 31 100 Nasal Cannula 3.0 32 89 31 100 07/05/19 06:39 100 Bi-Pap 28 07/05/19 06:00 96 26 114/53 (73) 100 07/05/19 05:00 98 26 106/48 (67) 99 07/05/19 04:53 97 34 100 Full Face 28 07/05/19 04:00 98.7 94 27 108/52 (70) 99 07/05/19 04:00 96 07/05/19 04:00 Nasal Cannula 2.0 07/05/19 03:57 98 32 98 Full Face 28 07/05/19 03:54 99 31 100 Bi-Pap 28 97 31 98 07/05/19 03:00 93 26 108/64 (79) 99 07/05/19 02:00 96 26 109/51 (70) 99 07/05/19 01:50 90 28 100 Full Face 28 07/05/19 01:00 87 26 95/50 (65) 98 07/05/19 00:00 Nasal Cannula 2.0 07/05/19 00:00 70 07/05/19 00:00 99.1 90 26 100/52 (68) 99 07/04/19 23:58 Full Face 07/04/19 23:44 92 34 94 Facial 28 92 34 94 Bi-Pap 28 07/04/19 23:00 87 27 107/52 (70) 98 07/04/19 22:00 88 27 102/50 (67) 97 07/04/19 21:17 92 32 100 Facial 28 07/04/19 21:00 86 27 104/50 (68) 99 07/04/19 20:15 84 35 100 Facial 28 07/04/19 20:00 99.2 87 28 107/55 (72) 98 07/04/19 20:00 88 30 100 Nasal Cannula 2.0 28 84 27 98 07/04/19 20:00 Nasal Cannula 2.0 07/04/19 20:00 Bi-Pap 07/04/19 20:00 86 07/04/19 19:00 82 28 105/50 (68) 97 07/04/19 18:00 78 28 112/53 (72) 98 07/04/19 17:00 78 29 111/64 (80) 96 07/04/19 16:00 87 07/04/19 16:00 Nasal Cannula 2.0 07/04/19 16:00 99.9 87 30 111/64 (80) 97 07/04/19 15:00 84 27 91/42 (58) 96 07/04/19 14:53 91/42 07/04/19 14:30 80 18 100 Nasal Cannula 3.0 32 07/04/19 14:00 79 24 90/47 (61) 97 07/04/19 13:00 75 23 91/51 (64) 98 07/04/19 12:00 99.7 73 25 93/49 (64) 99 07/04/19 12:00 87 07/04/19 12:00 Nasal Cannula 2.0 07/04/19 11:00 76 29 109/50 (69) 97 07/04/19 10:00 76 25 104/50 (68) 97 Intake and Output 07/04/19 07/05/19 19:00 07:00 Intake Total 1060 ml 740 ml Output Total 900 ml 710 ml Balance 160 ml 30 ml Free Water 100 ml 200 ml IV Total 520 ml Tube Feeding 440 ml 540 ml Output Urine Total 0 ml 60 ml Stool Total 900 ml 650 ml Laboratory Tests 07/05/19 04:00: White Blood Count 27.4*H, Red Blood Count 2.42L, Hemoglobin 7.8L, Hematocrit 23.8L, Mean Corpuscular Volume 98, Mean Corpuscular Hemoglobin 32.3H, Mean Corpuscular Hemoglobin Concent 32.9, Red Cell Distribution Width 24.6H, Platelet Count 176, Mean Platelet Volume 8.0, Neutrophils (%) (Auto) , Lymphocytes (%) (Auto) , Monocytes (%) (Auto) , Eosinophils (%) (Auto) , Basophils (%) (Auto) , Neutrophils % (Manual) [Pending], Lymphocytes % (Manual) [Pending], Platelet Estimate [Pending], Platelet Morphology [Pending], Sodium Level 153H, Potassium Level 2.7*L, Chloride Level 117H, Carbon Dioxide Level 19L , Anion Gap 17H, Blood Urea Nitrogen 62H, Creatinine 7.4H, Estimat Glomerular Filtration Rate 8.3, Glucose Level 162H, Calcium Level 7.9L, Phosphorus Level 3.4, Total Bilirubin 33.0H, Direct Bilirubin 26.5H, Aspartate Amino Transf (AST/ SGOT) 144H, Alanine Aminotransferase (ALT/SGPT) 21, Alkaline Phosphatase 264H, Total Protein 4.9L, Albumin 1.5L, Globulin 3.4, Albumin/Globulin Ratio 0.4L Height (Feet): 5 Height (Inches): 9.00 Weight (Pounds): 217 General Appearance: no apparent distress, lethargic, confused, other - Jaundiced Cardiovascular: tachycardia Respiratory/Chest: decreased breath sounds Abdomen: distended Arthur Lay MD Jul 05, 2019 09:23
[2019-07-05] MEDS ORDERED: Acetaminophen 650mg/20.3ml NG SCH (09:30)
[2019-07-05] MEDS ORDERED: NS 275ml ONE (10:12)
--- NOTE | 2019-07-05 10:27 | GI Progress Note ---
Assessment/Plan Problems: (1) End-stage liver disease ICD Codes: K72.90 - Hepatic failure, unspecified without coma SNOMED: 255064549 (2) Pancreatitis, alcoholic, acute ICD Codes: K85.20 - Alcohol induced acute pancreatitis without necrosis or infection SNOMED: 689840598, 9029791 Qualifiers: Qualified Codes: K85.20 - Alcohol induced acute pancreatitis without necrosis or infection (3) Hepatorenal syndrome ICD Codes: K76.7 - Hepatorenal syndrome SNOMED: 70608179, 9767500 (4) Acute alcoholic intoxication ICD Codes: F10.929 - Alcohol use, unspecified with intoxication, unspecified SNOMED: 50475837, 4935125 Qualifiers: Qualified Codes: F10.920 - Alcohol use, unspecified with intoxication, uncomplicated (5) Anemia ICD Codes: D64.9 - Anemia, unspecified SNOMED: 521923248 Qualifiers: Qualified Codes: D64.9 - Anemia, unspecified Status: not improved, unchanged Status Narrative Discussed with Dr. Esposito. Assessment/Plan MELD score is 31, poor prognosis discriminant factor 67, poor prognosis. Hold glucocorticosteroid therapy given rising white count. s/p paracentesis NPO IVF per nephrology repeat labs cont lactulose + Xifaxan s/p blood transfusion electrolyte correction The patient was seen and examined at bedside and all new and available data was reviewed in the patients chart. I agree with the above findings, impression and plan. (Patient seen earlier today. Signature stamp does not reflect patient encounter time.). - Merlin Esposito MD Subjective Subjective limited Objective Last 24 Hour Vital Signs Date Time Temp Pulse Resp B/P (MAP) Pulse Ox O2 Delivery O2 Flow Rate FiO2 07/05/19 09:00 97 30 89/63 (72) 97 07/05/19 08:00 Nasal Cannula 2.0 07/05/19 08:00 100.6 96 32 89/49 (62) 97 07/05/19 07:15 96 07/05/19 07:00 98 28 136/50 (78) 99 07/05/19 06:43 93 31 100 Nasal Cannula 3.0 32 89 31 100 07/05/19 06:39 100 Bi-Pap 28 07/05/19 06:00 96 26 114/53 (73) 100 07/05/19 05:00 98 26 106/48 (67) 99 07/05/19 04:53 97 34 100 Full Face 28 07/05/19 04:00 98.7 94 27 108/52 (70) 99 07/05/19 04:00 96 07/05/19 04:00 Nasal Cannula 2.0 07/05/19 03:57 98 32 98 Full Face 28 07/05/19 03:54 99 31 100 Bi-Pap 28 97 31 98 07/05/19 03:00 93 26 108/64 (79) 99 07/05/19 02:00 96 26 109/51 (70) 99 07/05/19 01:50 90 28 100 Full Face 28 07/05/19 01:00 87 26 95/50 (65) 98 07/05/19 00:00 Nasal Cannula 2.0 07/05/19 00:00 70 07/05/19 00:00 99.1 90 26 100/52 (68) 99 07/04/19 23:58 Full Face 07/04/19 23:44 92 34 94 Facial 28 92 34 94 Bi-Pap 28 07/04/19 23:00 87 27 107/52 (70) 98 07/04/19 22:00 88 27 102/50 (67) 97 07/04/19 21:17 92 32 100 Facial 28 07/04/19 21:00 86 27 104/50 (68) 99 07/04/19 20:15 84 35 100 Facial 28 07/04/19 20:00 99.2 87 28 107/55 (72) 98 07/04/19 20:00 88 30 100 Nasal Cannula 2.0 28 84 27 98 07/04/19 20:00 Nasal Cannula 2.0 07/04/19 20:00 Bi-Pap 07/04/19 20:00 86 07/04/19 19:00 82 28 105/50 (68) 97 07/04/19 18:00 78 28 112/53 (72) 98 07/04/19 17:00 78 29 111/64 (80) 96 07/04/19 16:00 87 07/04/19 16:00 Nasal Cannula 2.0 07/04/19 16:00 99.9 87 30 111/64 (80) 97 07/04/19 15:00 84 27 91/42 (58) 96 07/04/19 14:53 91/42 07/04/19 14:30 80 18 100 Nasal Cannula 3.0 32 07/04/19 14:00 79 24 90/47 (61) 97 07/04/19 13:00 75 23 91/51 (64) 98 07/04/19 12:00 99.7 73 25 93/49 (64) 99 07/04/19 12:00 87 07/04/19 12:00 Nasal Cannula 2.0 07/04/19 11:00 76 29 109/50 (69) 97 Intake and Output 07/04/19 07/05/19 19:00 07:00 Intake Total 1060 ml 740 ml Output Total 900 ml 710 ml Balance 160 ml 30 ml Free Water 100 ml 200 ml IV Total 520 ml Tube Feeding 440 ml 540 ml Output Urine Total 0 ml 60 ml Stool Total 900 ml 650 ml Laboratory Tests Test 07/05/19 04:00 White Blood Count 27.4 K/UL (4.8-10.8) *H Red Blood Count 2.42 M/UL (4.70-6.10) L Hemoglobin 7.8 G/DL (14.2-18.0) L Hematocrit 23.8 % (42.0-52.0) L Mean Corpuscular Volume 98 FL (80-99) Mean Corpuscular Hemoglobin 32.3 PG (27.0-31.0) H Mean Corpuscular Hemoglobin Concent 32.9 G/DL (32.0-36.0) Red Cell Distribution Width 24.6 % (11.6-14.8) H Platelet Count 176 K/UL (150-450) Mean Platelet Volume 8.0 FL (6.5-10.1) Neutrophils (%) (Auto) % (45.0-75.0) Lymphocytes (%) (Auto) % (20.0-45.0) Monocytes (%) (Auto) % (1.0-10.0) Eosinophils (%) (Auto) % (0.0-3.0) Basophils (%) (Auto) % (0.0-2.0) Neutrophils % (Manual) Pending Lymphocytes % (Manual) Pending Platelet Estimate Pending Platelet Morphology Pending Sodium Level 153 MMOL/L (136-145) H Potassium Level 2.7 MMOL/L (3.5-5.1) *L Chloride Level 117 MMOL/L (98-107) H Carbon Dioxide Level 19 MMOL/L (21-32) L Anion Gap 17 mmol/L (5-15) H Blood Urea Nitrogen 62 mg/dL (7-18) H Creatinine 7.4 MG/DL (0.55-1.30) H Estimat Glomerular Filtration Rate 8.3 mL/min (>60) Glucose Level 162 MG/DL (74-106) H Calcium Level 7.9 MG/DL (8.5-10.1) L Phosphorus Level 3.4 MG/DL (2.5-4.9) Total Bilirubin 33.0 MG/DL (0.2-1.0) H Direct Bilirubin 26.5 MG/DL (0.0-0.3) H Aspartate Amino Transf (AST/SGOT) 144 U/L (15-37) H Alanine Aminotransferase (ALT/SGPT) 21 U/L (12-78) Alkaline Phosphatase 264 U/L (46-116) H Total Protein 4.9 G/DL (6.4-8.2) L Albumin 1.5 G/DL (3.4-5.0) L Globulin 3.4 g/dL Albumin/Globulin Ratio 0.4 (1.0-2.7) L Height (Feet): 5 Height (Inches): 9.00 Weight (Pounds): 217 General Appearance: no apparent distress, lethargic Cardiovascular: normal rate Respiratory/Chest: normal breath sounds, no respiratory distress, other - mech vent Abdominal Exam: normal bowel sounds, non tender, soft, other - NGT Extremities: non-tender Ayo Lamar NP Jul 05, 2019 10:27
--- NOTE | 2019-07-05 10:41 | Infectious Diseases Prog Note ---
Assessment/Plan Assessment/Plan IMPRESSION: 1. Sepsis. new fever, increase in WBC 2. Systemic inflammatory response syndrome. 3. Tachycardia. 4. Leukocytosis. 5. colitis, 6.Alcoholic pancreatitis, 7.Cirrhosis of liver, 8. Acute renal failure likely hepatorenal syndrome, - ESRD 9.Anemia, 10. thrombocytopenia, 11.hypocalcemia, 12.hypomagnesemia, corrected 13 hypokalemia, corrected 14, Alcohol withdrawal. 15.Metabolic encephalopathy 16. Hypophosphatemia 17. Hypernatremia 18. Hypoxic respiratory failure RECOMMENDATION: Discontinue Rocephin & Flagyl Start on Vancomycin & Meropenem Repeat CXR Poor prognosis Subjective ROS Limited/Unobtainable: Yes Constitutional: Reports: fever, other - Wtee=630.6 Neurologic: Reports: other - lethagic Allergies: Coded Allergies: No Known Allergies (Unverified , 06/20/19) Objective Vital Signs Last 24 Hour Vital Signs Date Time Temp Pulse Resp B/P (MAP) Pulse Ox O2 Delivery O2 Flow Rate FiO2 07/05/19 09:00 97 30 89/63 (72) 97 07/05/19 08:00 Nasal Cannula 2.0 07/05/19 08:00 100.6 96 32 89/49 (62) 97 07/05/19 07:15 96 07/05/19 07:00 98 28 136/50 (78) 99 07/05/19 06:43 93 31 100 Nasal Cannula 3.0 32 89 31 100 07/05/19 06:39 100 Bi-Pap 28 07/05/19 06:00 96 26 114/53 (73) 100 07/05/19 05:00 98 26 106/48 (67) 99 07/05/19 04:53 97 34 100 Full Face 28 07/05/19 04:00 98.7 94 27 108/52 (70) 99 07/05/19 04:00 96 07/05/19 04:00 Nasal Cannula 2.0 07/05/19 03:57 98 32 98 Full Face 28 07/05/19 03:54 99 31 100 Bi-Pap 28 97 31 98 07/05/19 03:00 93 26 108/64 (79) 99 07/05/19 02:00 96 26 109/51 (70) 99 07/05/19 01:50 90 28 100 Full Face 28 07/05/19 01:00 87 26 95/50 (65) 98 07/05/19 00:00 Nasal Cannula 2.0 07/05/19 00:00 70 07/05/19 00:00 99.1 90 26 100/52 (68) 99 07/04/19 23:58 Full Face 07/04/19 23:44 92 34 94 Facial 28 92 34 94 Bi-Pap 28 07/04/19 23:00 87 27 107/52 (70) 98 07/04/19 22:00 88 27 102/50 (67) 97 07/04/19 21:17 92 32 100 Facial 28 07/04/19 21:00 86 27 104/50 (68) 99 07/04/19 20:15 84 35 100 Facial 28 07/04/19 20:00 99.2 87 28 107/55 (72) 98 07/04/19 20:00 88 30 100 Nasal Cannula 2.0 28 84 27 98 07/04/19 20:00 Nasal Cannula 2.0 07/04/19 20:00 Bi-Pap 07/04/19 20:00 86 07/04/19 19:00 82 28 105/50 (68) 97 07/04/19 18:00 78 28 112/53 (72) 98 07/04/19 17:00 78 29 111/64 (80) 96 07/04/19 16:00 87 07/04/19 16:00 Nasal Cannula 2.0 07/04/19 16:00 99.9 87 30 111/64 (80) 97 07/04/19 15:00 84 27 91/42 (58) 96 07/04/19 14:53 91/42 07/04/19 14:30 80 18 100 Nasal Cannula 3.0 32 07/04/19 14:00 79 24 90/47 (61) 97 07/04/19 13:00 75 23 91/51 (64) 98 07/04/19 12:00 99.7 73 25 93/49 (64) 99 07/04/19 12:00 87 07/04/19 12:00 Nasal Cannula 2.0 07/04/19 11:00 76 29 109/50 (69) 97 Height (Feet): 5 Height (Inches): 9.00 Weight (Pounds): 217 HEENT: mucous membranes moist, other - ictreus Cardiovascular: normal rate, other - RIJ HD, Left arm PICC line Abdomen: distended, other - NG tube, rectal tube Extremities: other - edema of legs Neurologic/Psychiatric: disoriented, other - lethargic Laboratory Tests Test 07/05/19 04:00 White Blood Count 27.4 K/UL (4.8-10.8) *H Red Blood Count 2.42 M/UL (4.70-6.10) L Hemoglobin 7.8 G/DL (14.2-18.0) L Hematocrit 23.8 % (42.0-52.0) L Mean Corpuscular Volume 98 FL (80-99) Mean Corpuscular Hemoglobin 32.3 PG (27.0-31.0) H Mean Corpuscular Hemoglobin Concent 32.9 G/DL (32.0-36.0) Red Cell Distribution Width 24.6 % (11.6-14.8) H Platelet Count 176 K/UL (150-450) Mean Platelet Volume 8.0 FL (6.5-10.1) Neutrophils (%) (Auto) % (45.0-75.0) Lymphocytes (%) (Auto) % (20.0-45.0) Monocytes (%) (Auto) % (1.0-10.0) Eosinophils (%) (Auto) % (0.0-3.0) Basophils (%) (Auto) % (0.0-2.0) Neutrophils % (Manual) Pending Lymphocytes % (Manual) Pending Platelet Estimate Pending Platelet Morphology Pending Sodium Level 153 MMOL/L (136-145) H Potassium Level 2.7 MMOL/L (3.5-5.1) *L Chloride Level 117 MMOL/L (98-107) H Carbon Dioxide Level 19 MMOL/L (21-32) L Anion Gap 17 mmol/L (5-15) H Blood Urea Nitrogen 62 mg/dL (7-18) H Creatinine 7.4 MG/DL (0.55-1.30) H Estimat Glomerular Filtration Rate 8.3 mL/min (>60) Glucose Level 162 MG/DL (74-106) H Calcium Level 7.9 MG/DL (8.5-10.1) L Phosphorus Level 3.4 MG/DL (2.5-4.9) Total Bilirubin 33.0 MG/DL (0.2-1.0) H Direct Bilirubin 26.5 MG/DL (0.0-0.3) H Aspartate Amino Transf (AST/SGOT) 144 U/L (15-37) H Alanine Aminotransferase (ALT/SGPT) 21 U/L (12-78) Alkaline Phosphatase 264 U/L (46-116) H Total Protein 4.9 G/DL (6.4-8.2) L Albumin 1.5 G/DL (3.4-5.0) L Globulin 3.4 g/dL Albumin/Globulin Ratio 0.4 (1.0-2.7) L Current Medications Medications (Trade) Dose Ordered Sig/Gabriela Route PRN Reason Start Time Stop Time Status Last Admin Dose Admin Acetaminophen (Tylenol) 650 mg ONCE NG 07/05/19 09:30 07/05/19 11:00 07/05/19 09:30 Albumin Human 50 ml @ 50 mls/hr ONCE IV 07/05/19 09:45 07/05/19 11:30 Albuterol/ Ipratropium (Albuterol/ Ipratropium) 3 ml Q4HRT HHN 07/04/19 15:00 07/09/19 14:59 07/05/19 06:41 Ceftriaxone Sodium 1 gm/ Dextrose 55 ml @ 110 mls/hr DAILY IVPB 06/27/19 13:00 07/08/19 12:59 07/05/19 09:06 Chlorhexidine Gluconate (Emilie-Hex 2%) 1 applic DAILY@2000 TOPIC 06/26/19 20:00 07/26/19 19:59 07/04/19 20:35 Dopamine HCl/ Dextrose 250 ml @ 0 mls/hr Q24H IV 06/30/19 14:53 07/30/19 14:52 Epoetin Michael (Epoetin Michael(ESRD on dialysis)) 2,000 unit -TUE SUBQ 07/02/19 21:00 08/01/19 20:59 07/04/19 20:37 Epoetin Michael (Epoetin Michael(ESRD on dialysis)) 3,000 unit SUBQ 07/02/19 21:00 08/01/19 20:59 07/04/19 20:37 Lactulose (Cephulac) 30 gm FOUR TIMES A DAY NG 07/01/19 09:00 07/20/19 12:59 07/05/19 08:59 Metronidazole (Flagyl) 500 mg Q8HR NG 06/27/19 14:00 07/08/19 13:59 07/05/19 05:20 Pantoprazole (Protonix) 40 mg EVERY 12 HOURS IVP 06/21/19 21:00 07/20/19 20:59 07/05/19 08:59 Potassium Chloride 100 ml @ 50 mls/hr Q2H IVPB 07/05/19 08:30 07/05/19 12:29 07/05/19 08:59 Ilia Chakraborty MD Jul 05, 2019 10:41
[2019-07-05] MEDS ORDERED: Vancomycin 1.5gm Premix IVPB ONE (12:00)
[2019-07-05] MEDS: DOPamine 400mg/250ml 250 ML IV SCH (12:42)
[2019-07-05] MEDS: Meropenem 500 MG in NS 55 ML IVPB SCH (14:50)
--- NOTE | 2019-07-05 17:12 | Pulmonolgy Critical Care Note ---
Critical Care - Asmt/Plan Assessment/Plan: Pulmonary CCM Progress Note HPI This is a 39-year-old male who is an alcoholic with significant fatty liver on abdominal CT and alcoholic hepatitis, liver failure c/b multiorgan failure. He has been drinking heavily for 3 months straight, having stopped drinking [employer]. Noted to have Hepatic Encephalopathy and Hepatorenal Syndrome. No bleeding. Noted to have significant hypokalemia and acidosis, now on HD, evidence of sepsis, source unclear - some bacteria in urine, mild ascites - possible SBP, dilated Gallbladder, s/p Paracentesis On NC, BiPAP PRN, NGT, on Lactulose On Hemodialysis for worsening acidosis, uremia Remains confused BP stable, Midodrine, PRN dopamine to maintain BP Allergies: No Known Allergies Past Medical History: Alcohol abuse All Other Systems: negative except mentioned in HPI Physical Exam Vital Signs Noted General Appearance: Jaundiced, awake Head: normocephalic, atraumatic, HD catheter Eyes: bilateral eye PERRL, bilateral eye EOMI, bilateral eye scleral icterus ENT: moist mm Neck: no masses, no LN Respiratory: chest non-tender, lungs clear, normal breath sounds Cardiovascular: regular rate, rhythm, Normal HS1, HS2, no murmur, tachycardia Gastrointestinal: Obese, hepatomegaly, some tenderness RUQ, normal bowel sounds , no mass, no rebound Musculoskeletal: moves all limbs Neurologic: responds to commands, awake Skin: jaundiced, moderate edema Impression: Acute alcoholic intoxication Severe Sepsis Alcoholic Hepatitis Possible Cirrhosis Hepatorenal syndrome - worsening renal function - on HD Multiorgan Failure Extremelt poor prognosis Possible Portal Hypertension Hypernatremia Pancreatitis, alcoholic, acute Anemia Plan ICU management NPO except meds/NGT feeds IV antibiotics per ID Aspiration precautions BiPAP PRN NC O2 GI/Renal following HD per Nephrology Pressors PRN Transfuse PRN Thiamine Monitor labs Adjust FIO2 - sats 90-96% Patient has extremely poor prognosis Labs: noted EKG: Rate: tachycardiac Rhythm: NSR ST Segments: other - NSST changes Chest X-Ray: hypoventilatory exam, no consolidation, no effusion, no pneumothorax, no acute cardiopulmonary disease CT abdomen pelvis: Severely enlarged liver and fatty liver. Mild ascites. Critical Care - Objective Last 24 Hour Vital Signs Date Time Temp Pulse Resp B/P (MAP) Pulse Ox O2 Delivery O2 Flow Rate FiO2 07/05/19 16:00 99.6 110 28 115/42 (66) 94 07/05/19 16:00 Nasal Cannula 2.0 07/05/19 16:00 112 07/05/19 15:45 121 35 115/42 (66) 93 07/05/19 15:30 110 30 94/42 (59) 94 07/05/19 15:15 115 25 99/45 (63) 07/05/19 15:00 119 29 99/45 (63) 93 07/05/19 14:56 118 29 91/45 (60) 96 07/05/19 14:45 114 26 95/46 (62) 96 07/05/19 14:41 115 26 98 Nasal Cannula 2.0 28 115 28 94 07/05/19 14:30 116 28 93/42 (59) 92 07/05/19 14:15 112 25 96/46 (63) 93 07/05/19 14:00 125 24 111/49 (69) 94 07/05/19 13:45 119 24 103/45 (64) 96 07/05/19 13:32 120 21 107/47 (67) 96 07/05/19 13:30 118 25 108/67 (81) 95 07/05/19 13:15 116 25 108/67 (81) 95 07/05/19 13:00 100 27 108/67 (81) 95 07/05/19 12:45 96 28 87/45 (59) 96 07/05/19 12:42 90/41 07/05/19 12:30 96 27 90/41 (57) 96 07/05/19 12:15 95 30 92/38 (56) 97 07/05/19 12:00 98.8 96 26 90/41 (57) 100 07/05/19 12:00 98.8 96 26 100 07/05/19 12:00 Nasal Cannula 2.0 07/05/19 11:34 99 07/05/19 11:00 101 24 97/48 (64) 100 07/05/19 10:41 93 22 100 Nasal Cannula 2.0 28 94 19 97 07/05/19 10:00 100.3 07/05/19 10:00 100.3 98 25 101/45 (63) 94 07/05/19 10:00 100.3 07/05/19 09:00 97 30 89/63 (72) 97 07/05/19 08:00 Nasal Cannula 2.0 07/05/19 08:00 100.6 96 32 89/49 (62) 97 07/05/19 07:15 96 07/05/19 07:00 98 28 136/50 (78) 99 07/05/19 06:43 93 31 100 Nasal Cannula 3.0 32 89 31 100 07/05/19 06:39 100 Bi-Pap 28 07/05/19 06:00 96 26 114/53 (73) 100 07/05/19 05:00 98 26 106/48 (67) 99 07/05/19 04:53 97 34 100 Full Face 28 07/05/19 04:00 98.7 94 27 108/52 (70) 99 07/05/19 04:00 96 07/05/19 04:00 Nasal Cannula 2.0 07/05/19 03:57 98 32 98 Full Face 28 07/05/19 03:54 99 31 100 Bi-Pap 28 97 31 98 07/05/19 03:00 93 26 108/64 (79) 99 07/05/19 02:00 96 26 109/51 (70) 99 07/05/19 01:50 90 28 100 Full Face 28 07/05/19 01:00 87 26 95/50 (65) 98 07/05/19 00:00 Nasal Cannula 2.0 07/05/19 00:00 70 07/05/19 00:00 99.1 90 26 100/52 (68) 99 07/04/19 23:58 Full Face 07/04/19 23:44 92 34 94 Facial 28 92 34 94 Bi-Pap 28 07/04/19 23:00 87 27 107/52 (70) 98 07/04/19 22:00 88 27 102/50 (67) 97 07/04/19 21:17 92 32 100 Facial 28 07/04/19 21:00 86 27 104/50 (68) 99 07/04/19 20:15 84 35 100 Facial 28 07/04/19 20:00 99.2 87 28 107/55 (72) 98 07/04/19 20:00 88 30 100 Nasal Cannula 2.0 28 84 27 98 07/04/19 20:00 Nasal Cannula 2.0 07/04/19 20:00 Bi-Pap 07/04/19 20:00 86 07/04/19 19:00 82 28 105/50 (68) 97 07/04/19 18:00 78 28 112/53 (72) 98 Critical Care - Subjective ROS Limited/Unobtainable: No FI02: 28 Sputum Amount: None Tube Feeding Amount: 45 I&O: Intake and Output 07/04/19 07/05/19 19:00 07:00 Intake Total 1060 ml 740 ml Output Total 900 ml 710 ml Balance 160 ml 30 ml Free Water 100 ml 200 ml IV Total 520 ml Tube Feeding 440 ml 540 ml Output Urine Total 0 ml 60 ml Stool Total 900 ml 650 ml Quang Domingo MD Jul 05, 2019 17:12
--- NOTE | 2019-07-05 18:05 | Cardiac Electrophysiology PN ---
Assessment/Plan Assessment/Plan 1. Sinus tach due to alcohol withdrawal and hepatic encephalopathy. No SVT or atrial fibrillation. EF 55% 2. Cirrhosis. On Lactulose . S/P paracentesis 3. Hypotension BP 80 better after albumin Back on Dopamine 4. Hepatorenal syndrome. Fu . S/P Carrillo Catheter and HD 5. Hypokalemia. 6. Alcohol intoxication. Thiamine, folate, and Librium. 7. Hepatic encephalopathy DW RN Subjective Subjective In ICU off restraints and lethargic. No arrhythmias and now back on Dopamine for hypotension during HD Objective Last 24 Hour Vital Signs Date Time Temp Pulse Resp B/P (MAP) Pulse Ox O2 Delivery O2 Flow Rate FiO2 07/05/19 16:00 99.6 110 28 115/42 (66) 94 07/05/19 16:00 Nasal Cannula 2.0 07/05/19 16:00 112 07/05/19 15:45 121 35 115/42 (66) 93 07/05/19 15:30 110 30 94/42 (59) 94 07/05/19 15:15 115 25 99/45 (63) 07/05/19 15:00 119 29 99/45 (63) 93 07/05/19 14:56 118 29 91/45 (60) 96 07/05/19 14:45 114 26 95/46 (62) 96 07/05/19 14:41 115 26 98 Nasal Cannula 2.0 28 115 28 94 07/05/19 14:30 116 28 93/42 (59) 92 07/05/19 14:15 112 25 96/46 (63) 93 07/05/19 14:00 125 24 111/49 (69) 94 07/05/19 13:45 119 24 103/45 (64) 96 07/05/19 13:32 120 21 107/47 (67) 96 07/05/19 13:30 118 25 108/67 (81) 95 07/05/19 13:15 116 25 108/67 (81) 95 07/05/19 13:00 100 27 108/67 (81) 95 07/05/19 12:45 96 28 87/45 (59) 96 07/05/19 12:42 90/41 07/05/19 12:30 96 27 90/41 (57) 96 07/05/19 12:15 95 30 92/38 (56) 97 07/05/19 12:00 98.8 96 26 90/41 (57) 100 07/05/19 12:00 98.8 96 26 100 07/05/19 12:00 Nasal Cannula 2.0 07/05/19 11:34 99 07/05/19 11:00 101 24 97/48 (64) 100 07/05/19 10:41 93 22 100 Nasal Cannula 2.0 28 94 19 97 07/05/19 10:00 100.3 07/05/19 10:00 100.3 98 25 101/45 (63) 94 07/05/19 10:00 100.3 07/05/19 09:00 97 30 89/63 (72) 97 07/05/19 08:00 Nasal Cannula 2.0 07/05/19 08:00 100.6 96 32 89/49 (62) 97 07/05/19 07:15 96 07/05/19 07:00 98 28 136/50 (78) 99 07/05/19 06:43 93 31 100 Nasal Cannula 3.0 32 89 31 100 07/05/19 06:39 100 Bi-Pap 28 07/05/19 06:00 96 26 114/53 (73) 100 07/05/19 05:00 98 26 106/48 (67) 99 07/05/19 04:53 97 34 100 Full Face 28 07/05/19 04:00 98.7 94 27 108/52 (70) 99 07/05/19 04:00 96 07/05/19 04:00 Nasal Cannula 2.0 07/05/19 03:57 98 32 98 Full Face 28 07/05/19 03:54 99 31 100 Bi-Pap 28 97 31 98 07/05/19 03:00 93 26 108/64 (79) 99 07/05/19 02:00 96 26 109/51 (70) 99 07/05/19 01:50 90 28 100 Full Face 28 07/05/19 01:00 87 26 95/50 (65) 98 07/05/19 00:00 Nasal Cannula 2.0 07/05/19 00:00 70 07/05/19 00:00 99.1 90 26 100/52 (68) 99 07/04/19 23:58 Full Face 07/04/19 23:44 92 34 94 Facial 28 92 34 94 Bi-Pap 28 07/04/19 23:00 87 27 107/52 (70) 98 07/04/19 22:00 88 27 102/50 (67) 97 07/04/19 21:17 92 32 100 Facial 28 07/04/19 21:00 86 27 104/50 (68) 99 07/04/19 20:15 84 35 100 Facial 28 07/04/19 20:00 99.2 87 28 107/55 (72) 98 07/04/19 20:00 88 30 100 Nasal Cannula 2.0 28 84 27 98 07/04/19 20:00 Nasal Cannula 2.0 07/04/19 20:00 Bi-Pap 07/04/19 20:00 86 07/04/19 19:00 82 28 105/50 (68) 97 Intake and Output 07/04/19 07/05/19 19:00 07:00 Intake Total 1060 ml 740 ml Output Total 900 ml 710 ml Balance 160 ml 30 ml Free Water 100 ml 200 ml IV Total 520 ml Tube Feeding 440 ml 540 ml Output Urine Total 0 ml 60 ml Stool Total 900 ml 650 ml Laboratory Tests Test 07/05/19 04:00 White Blood Count 27.4 K/UL (4.8-10.8) *H Red Blood Count 2.42 M/UL (4.70-6.10) L Hemoglobin 7.8 G/DL (14.2-18.0) L Hematocrit 23.8 % (42.0-52.0) L Mean Corpuscular Volume 98 FL (80-99) Mean Corpuscular Hemoglobin 32.3 PG (27.0-31.0) H Mean Corpuscular Hemoglobin Concent 32.9 G/DL (32.0-36.0) Red Cell Distribution Width 24.6 % (11.6-14.8) H Platelet Count 176 K/UL (150-450) Mean Platelet Volume 8.0 FL (6.5-10.1) Neutrophils (%) (Auto) % (45.0-75.0) Lymphocytes (%) (Auto) % (20.0-45.0) Monocytes (%) (Auto) % (1.0-10.0) Eosinophils (%) (Auto) % (0.0-3.0) Basophils (%) (Auto) % (0.0-2.0) Differential Total Cells Counted 100 Neutrophils % (Manual) 81 % (45-75) H Lymphocytes % (Manual) 8 % (20-45) L Monocytes % (Manual) 5 % (1-10) Eosinophils % (Manual) 0 % (0-3) Basophils % (Manual) 0 % (0-2) Band Neutrophils 6 % (0-8) Nucleated Red Blood Cells 2 /100 WBC Platelet Estimate Adequate Platelet Morphology Normal Polychromasia 1+ Hypochromasia 3+ Anisocytosis 3+ Spherocytes 1+ Sodium Level 153 MMOL/L (136-145) H Potassium Level 2.7 MMOL/L (3.5-5.1) *L Chloride Level 117 MMOL/L (98-107) H Carbon Dioxide Level 19 MMOL/L (21-32) L Anion Gap 17 mmol/L (5-15) H Blood Urea Nitrogen 62 mg/dL (7-18) H Creatinine 7.4 MG/DL (0.55-1.30) H Estimat Glomerular Filtration Rate 8.3 mL/min (>60) Glucose Level 162 MG/DL (74-106) H Calcium Level 7.9 MG/DL (8.5-10.1) L Phosphorus Level 3.4 MG/DL (2.5-4.9) Total Bilirubin 33.0 MG/DL (0.2-1.0) H Direct Bilirubin 26.5 MG/DL (0.0-0.3) H Aspartate Amino Transf (AST/SGOT) 144 U/L (15-37) H Alanine Aminotransferase (ALT/SGPT) 21 U/L (12-78) Alkaline Phosphatase 264 U/L (46-116) H Total Protein 4.9 G/DL (6.4-8.2) L Albumin 1.5 G/DL (3.4-5.0) L Globulin 3.4 g/dL Albumin/Globulin Ratio 0.4 (1.0-2.7) L Objective HEAD AND NECK: No JVD. Sclera is icteric. R IJ Perm Cath LUNGS: Decreased breath sounds. CARDIOVASCULAR: Tachy S1 and S2 with no gallop. ABDOMEN: Distended with ascites. EXTREMITIES: 2+ pitting edema. Felice Smith MD Jul 05, 2019 18:05
[2019-07-05] MEDS: Dyna-Hex 2% Top Sol 2oz TOPIC SCH (20:28)
--- NOTE | 2019-07-05 20:51 | General Progress Note ---
Assessment/Plan Problem List: (1) Anemia ICD Codes: D64.9 - Anemia, unspecified SNOMED: 867551253 Qualifiers: Qualified Codes: D64.9 - Anemia, unspecified (2) Acute alcoholic intoxication ICD Codes: F10.929 - Alcohol use, unspecified with intoxication, unspecified SNOMED: 12652793, 5996247 Qualifiers: Qualified Codes: F10.920 - Alcohol use, unspecified with intoxication, uncomplicated (3) End-stage liver disease ICD Codes: K72.90 - Hepatic failure, unspecified without coma SNOMED: 536719380 (4) Hepatorenal syndrome ICD Codes: K76.7 - Hepatorenal syndrome SNOMED: 95537725, 8835789 (5) Pancreatitis, alcoholic, acute ICD Codes: K85.20 - Alcohol induced acute pancreatitis without necrosis or infection SNOMED: 346524132, 8596844 Qualifiers: Qualified Codes: K85.20 - Alcohol induced acute pancreatitis without necrosis or infection (6) Respiratory failure ICD Codes: J96.90 - Respiratory failure, unspecified, unspecified whether with hypoxia or hypercapnia SNOMED: 817305729 Status: progressing, not improved, unchanged Assessment/Plan: hepatorenal syndrome] etoh cirhossis favor comfort care elevated lft \very poor prognosis still edematious s/p paracentesis Subjective ROS Limited/Unobtainable: Yes Allergies: Coded Allergies: No Known Allergies (Unverified , 06/20/19) Objective Last 24 Hour Vital Signs Date Time Temp Pulse Resp B/P (MAP) Pulse Ox O2 Delivery O2 Flow Rate FiO2 07/05/19 19:17 106 30 98 Nasal Cannula 2.0 28 102 28 95 07/05/19 19:07 95 Nasal Cannula 2.0 28 07/05/19 19:00 101 30 95/41 (59) 95 07/05/19 18:00 100/44 07/05/19 18:00 103 24 100/44 (62) 95 07/05/19 17:45 106 28 100/45 (63) 96 07/05/19 17:30 106 30 101/51 (68) 95 07/05/19 17:15 108 28 97/41 (59) 95 07/05/19 17:00 108 30 94/40 (58) 95 07/05/19 17:00 94/40 07/05/19 16:45 108 30 101/40 (60) 94 07/05/19 16:30 111 29 100/44 (62) 93 07/05/19 16:15 111 32 102/42 (62) 94 07/05/19 16:00 99.6 110 28 115/42 (66) 94 07/05/19 16:00 95/38 07/05/19 16:00 Nasal Cannula 2.0 07/05/19 16:00 112 07/05/19 15:45 121 35 115/42 (66) 93 07/05/19 15:30 110 30 94/42 (59) 94 07/05/19 15:15 115 25 99/45 (63) 07/05/19 15:00 103/40 07/05/19 15:00 119 29 99/45 (63) 93 07/05/19 14:56 118 29 91/45 (60) 96 07/05/19 14:45 114 26 95/46 (62) 96 07/05/19 14:41 115 26 98 Nasal Cannula 2.0 28 115 28 94 07/05/19 14:30 116 28 93/42 (59) 92 07/05/19 14:15 112 25 96/46 (63) 93 07/05/19 14:00 111/49 07/05/19 14:00 125 24 111/49 (69) 94 07/05/19 13:45 119 24 103/45 (64) 96 07/05/19 13:32 120 21 107/47 (67) 96 07/05/19 13:30 118 25 108/67 (81) 95 07/05/19 13:15 116 25 108/67 (81) 95 07/05/19 13:00 100 27 108/67 (81) 95 07/05/19 13:00 93/45 07/05/19 12:45 96 28 87/45 (59) 96 07/05/19 12:42 90/41 07/05/19 12:30 96 27 90/41 (57) 96 07/05/19 12:15 95 30 92/38 (56) 97 07/05/19 12:00 98.8 96 26 90/41 (57) 100 07/05/19 12:00 98.8 96 26 100 07/05/19 12:00 Nasal Cannula 2.0 07/05/19 11:34 99 07/05/19 11:00 101 24 97/48 (64) 100 07/05/19 10:41 93 22 100 Nasal Cannula 2.0 28 94 19 97 07/05/19 10:00 100.3 07/05/19 10:00 100.3 98 25 101/45 (63) 94 07/05/19 10:00 100.3 07/05/19 09:00 97 30 89/63 (72) 97 07/05/19 08:00 Nasal Cannula 2.0 07/05/19 08:00 100.6 96 32 89/49 (62) 97 07/05/19 07:15 96 07/05/19 07:00 98 28 136/50 (78) 99 07/05/19 06:43 93 31 100 Nasal Cannula 3.0 32 89 31 100 07/05/19 06:39 100 Bi-Pap 28 07/05/19 06:00 96 26 114/53 (73) 100 07/05/19 05:00 98 26 106/48 (67) 99 07/05/19 04:53 97 34 100 Full Face 28 07/05/19 04:00 98.7 94 27 108/52 (70) 99 07/05/19 04:00 96 07/05/19 04:00 Nasal Cannula 2.0 07/05/19 03:57 98 32 98 Full Face 28 07/05/19 03:54 99 31 100 Bi-Pap 28 97 31 98 07/05/19 03:00 93 26 108/64 (79) 99 07/05/19 02:00 96 26 109/51 (70) 99 07/05/19 01:50 90 28 100 Full Face 28 07/05/19 01:00 87 26 95/50 (65) 98 07/05/19 00:00 Nasal Cannula 2.0 07/05/19 00:00 70 07/05/19 00:00 99.1 90 26 100/52 (68) 99 07/04/19 23:58 Full Face 07/04/19 23:44 92 34 94 Facial 28 92 34 94 Bi-Pap 28 07/04/19 23:00 87 27 107/52 (70) 98 07/04/19 22:00 88 27 102/50 (67) 97 07/04/19 21:17 92 32 100 Facial 28 07/04/19 21:00 86 27 104/50 (68) 99 Intake and Output 07/04/19 07/05/19 19:00 07:00 Intake Total 1060 ml 740 ml Output Total 900 ml 710 ml Balance 160 ml 30 ml Free Water 100 ml 200 ml IV Total 520 ml Tube Feeding 440 ml 540 ml Output Urine Total 0 ml 60 ml Stool Total 900 ml 650 ml Laboratory Tests 07/05/19 04:00: White Blood Count 27.4*H, Red Blood Count 2.42L, Hemoglobin 7.8L, Hematocrit 23.8L, Mean Corpuscular Volume 98, Mean Corpuscular Hemoglobin 32.3H, Mean Corpuscular Hemoglobin Concent 32.9, Red Cell Distribution Width 24.6H, Platelet Count 176, Mean Platelet Volume 8.0, Neutrophils (%) (Auto) , Lymphocytes (%) (Auto) , Monocytes (%) (Auto) , Eosinophils (%) (Auto) , Basophils (%) (Auto) , Differential Total Cells Counted 100, Neutrophils % ( Manual) 81H, Lymphocytes % (Manual) 8L, Monocytes % (Manual) 5, Eosinophils % ( Manual) 0, Basophils % (Manual) 0, Band Neutrophils 6, Nucleated Red Blood Cells 2, Platelet Estimate Adequate, Platelet Morphology Normal, Polychromasia 1 +, Hypochromasia 3+, Anisocytosis 3+, Spherocytes 1+, Sodium Level 153H, Potassium Level 2.7*L, Chloride Level 117H, Carbon Dioxide Level 19L, Anion Gap 17H, Blood Urea Nitrogen 62H, Creatinine 7.4H, Estimat Glomerular Filtration Rate 8.3, Glucose Level 162H, Calcium Level 7.9L, Phosphorus Level 3.4, Total Bilirubin 33.0H, Direct Bilirubin 26.5H, Aspartate Amino Transf (AST/SGOT) 144H , Alanine Aminotransferase (ALT/SGPT) 21, Alkaline Phosphatase 264H, Total Protein 4.9L, Albumin 1.5L, Globulin 3.4, Albumin/Globulin Ratio 0.4L Height (Feet): 5 Height (Inches): 9.00 Weight (Pounds): 217 Neck: supple Cardiovascular: normal rate Respiratory/Chest: lungs clear Abdomen: soft Deejay Saldaña MD Jul 05, 2019 20:51
[2019-07-06] VITALS (25 sets, daily range): BP systolic 78–132; BP diastolic 35–69
[2019-07-06] MEDS: Albuterol/Ipratropium 3ml neb HHN SCH ×6 (03:00→23:09)
[2019-07-06 04:12] LABS: HEMATOCRIT 24.6 % (42.0-52.0); HEMOGLOBIN 7.6 G/DL (14.2-18.0); MEAN CORPUSCULAR VOLUME 101 FL (80-99); PLATELET COUNT 182 K/UL (150-450); RED BLOOD COUNT 2.44 M/UL (4.70-6.10); RED CELL DISTRIBUTION WIDTH 24.8 % (11.6-14.8)
[2019-07-06 04:29] LABS: WHITE BLOOD COUNT 33.6 K/UL (4.8-10.8)
[2019-07-06 04:50] LABS: ALANINE AMINOTRANSFERASE 21 U/L (12-78); ALBUMIN 1.6 G/DL (3.4-5.0); ALBUMIN/GLOBULIN RATIO 0.5 (1.0-2.7); ALKALINE PHOSPHATASE 255 U/L (46-116); ANION GAP 16 mmol/L (5-15); ASPARTATE AMINO TRANSFERASE 142 U/L (15-37); BILIRUBIN,TOTAL 34.6 MG/DL (0.2-1.0); BLOOD UREA NITROGEN 51 mg/dL (7-18); CALCIUM 8.1 MG/DL (8.5-10.1); CARBON DIOXIDE 22 MMOL/L (21-32); CHLORIDE 114 MMOL/L (98-107); CREATININE 6.9 MG/DL (0.55-1.30); GAMMA GLUTAMYL TRANSPEPTIDASE 187 U/L (5-85); POTASSIUM 2.8 MMOL/L (3.5-5.1); SODIUM 152 MMOL/L (136-145)
--- NOTE | 2019-07-06 07:23 | Cardiac Electrophysiology PN ---
Assessment/Plan Assessment/Plan 1. Sinus tach due to alcohol withdrawal and hepatic encephalopathy. No SVT or atrial fibrillation. EF 55% 2. Cirrhosis. On Lactulose . S/P paracentesis 3. Hypotension BP 80 better after albumin Off and on needs Dopamine 4. Hepatorenal syndrome. Howard Jaramillo. S/P Carrillo Catheter and HD 5. Hypokalemia. 6. Alcohol intoxication. Thiamine, folate, and Librium. 7. Hepatic encephalopathy DW RN Subjective Subjective In ICU Lethargic on BIPAP No arrhythmias. Off Dopamine this am Objective Last 24 Hour Vital Signs Date Time Temp Pulse Resp B/P (MAP) Pulse Ox O2 Delivery O2 Flow Rate FiO2 07/06/19 07:15 85 30 98 Bi-Pap 28 92 30 97 07/06/19 07:03 92 30 97 Full Face 28 07/06/19 07:03 97 Bi-Pap 28 07/06/19 06:00 88 19 107/54 (71) 99 07/06/19 05:17 89 35 99 Full Face 28 07/06/19 05:00 89 24 109/59 (76) 98 07/06/19 04:00 91 07/06/19 04:00 Nasal Cannula 2.0 07/06/19 04:00 28 07/06/19 04:00 99.0 89 23 112/58 (76) 99 07/06/19 03:10 84 24 100 Bi-Pap 28 85 25 100 07/06/19 03:00 86 20 115/56 (75) 100 07/06/19 02:58 85 25 100 Full Face 28 07/06/19 02:00 84 20 78/35 (49) 100 07/06/19 01:30 88 21 116/55 (75) 97 07/06/19 01:00 90 20 116/51 (72) 98 07/06/19 00:59 91 23 100 Full Face 28 07/06/19 00:00 28 07/06/19 00:00 98.8 93 21 117/53 (74) 99 07/06/19 00:00 89 07/06/19 00:00 117/53 07/06/19 00:00 Nasal Cannula 2.0 07/05/19 23:30 97 21 129/57 (81) 98 07/05/19 23:00 100 21 134/61 (85) 92 07/05/19 23:00 28 07/05/19 23:00 127/57 07/05/19 22:51 96 30 98 Full Face 28 07/05/19 22:48 97 27 100 Nasal Cannula 2.0 28 91 28 100 07/05/19 22:30 92 27 106/48 (67) 100 07/05/19 22:00 119/51 07/05/19 22:00 100.9 98 27 119/51 (73) 100 07/05/19 21:30 102 29 118/63 (81) 98 07/05/19 21:00 102 31 80/40 (53) 96 07/05/19 21:00 118/63 07/05/19 20:30 105 30 101/52 (68) 95 07/05/19 20:00 2.0 07/05/19 20:00 103.1 107 31 101/46 (64) 93 07/05/19 20:00 Nasal Cannula 2.0 07/05/19 20:00 91/50 07/05/19 20:00 101 07/05/19 19:30 103 28 95/45 (62) 95 07/05/19 19:17 106 30 98 Nasal Cannula 2.0 28 102 28 95 07/05/19 19:07 95 Nasal Cannula 2.0 28 07/05/19 19:00 89/46 07/05/19 19:00 101 30 95/41 (59) 95 07/05/19 18:00 100/44 07/05/19 18:00 103 24 100/44 (62) 95 07/05/19 17:45 106 28 100/45 (63) 96 07/05/19 17:30 106 30 101/51 (68) 95 07/05/19 17:15 108 28 97/41 (59) 95 07/05/19 17:00 108 30 94/40 (58) 95 07/05/19 17:00 94/40 07/05/19 16:45 108 30 101/40 (60) 94 07/05/19 16:30 111 29 100/44 (62) 93 07/05/19 16:15 111 32 102/42 (62) 94 07/05/19 16:00 99.6 110 28 115/42 (66) 94 07/05/19 16:00 95/38 07/05/19 16:00 Nasal Cannula 2.0 07/05/19 16:00 112 07/05/19 15:45 121 35 115/42 (66) 93 07/05/19 15:30 110 30 94/42 (59) 94 07/05/19 15:15 115 25 99/45 (63) 07/05/19 15:00 103/40 07/05/19 15:00 119 29 99/45 (63) 93 07/05/19 14:56 118 29 91/45 (60) 96 07/05/19 14:45 114 26 95/46 (62) 96 07/05/19 14:41 115 26 98 Nasal Cannula 2.0 28 115 28 94 07/05/19 14:30 116 28 93/42 (59) 92 07/05/19 14:15 112 25 96/46 (63) 93 07/05/19 14:00 111/49 07/05/19 14:00 125 24 111/49 (69) 94 07/05/19 13:45 119 24 103/45 (64) 96 07/05/19 13:32 120 21 107/47 (67) 96 07/05/19 13:30 118 25 108/67 (81) 95 07/05/19 13:15 116 25 108/67 (81) 95 07/05/19 13:00 100 27 108/67 (81) 95 07/05/19 13:00 93/45 07/05/19 12:45 96 28 87/45 (59) 96 07/05/19 12:42 90/41 07/05/19 12:30 96 27 90/41 (57) 96 07/05/19 12:15 95 30 92/38 (56) 97 07/05/19 12:00 98.8 96 26 90/41 (57) 100 07/05/19 12:00 98.8 96 26 100 07/05/19 12:00 Nasal Cannula 2.0 07/05/19 11:34 99 07/05/19 11:00 101 24 97/48 (64) 100 07/05/19 10:41 93 22 100 Nasal Cannula 2.0 28 94 19 97 07/05/19 10:00 100.3 07/05/19 10:00 100.3 98 25 101/45 (63) 94 9/12/19 10:00 100.3 07/05/19 09:00 97 30 89/63 (72) 97 07/05/19 08:00 Nasal Cannula 2.0 07/05/19 08:00 100.6 96 32 89/49 (62) 97 Intake and Output 07/05/19 07/06/19 18:59 06:59 Intake Total 1502.138 ml 633.372 ml Output Total 2205 ml 1500 ml Balance -702.862 ml -866.628 ml Free Water 240 ml 60 ml IV Total 722.138 ml 33.372 ml Tube Feeding 540 ml 540 ml Output Urine Total 5 ml 0 ml Stool Total 200 ml 1500 ml Hemodialysis UF 2000 ml Laboratory Tests Test 07/06/19 04:00 White Blood Count 33.6 K/UL (4.8-10.8) *H Red Blood Count 2.44 M/UL (4.70-6.10) L Hemoglobin 7.6 G/DL (14.2-18.0) L Hematocrit 24.6 % (42.0-52.0) L Mean Corpuscular Volume 101 FL (80-99) H Mean Corpuscular Hemoglobin 31.3 PG (27.0-31.0) H Mean Corpuscular Hemoglobin Concent 31.1 G/DL (32.0-36.0) L Red Cell Distribution Width 24.8 % (11.6-14.8) H Platelet Count 182 K/UL (150-450) Mean Platelet Volume 9.0 FL (6.5-10.1) Neutrophils (%) (Auto) % (45.0-75.0) Lymphocytes (%) (Auto) % (20.0-45.0) Monocytes (%) (Auto) % (1.0-10.0) Eosinophils (%) (Auto) % (0.0-3.0) Basophils (%) (Auto) % (0.0-2.0) Neutrophils % (Manual) Pending Lymphocytes % (Manual) Pending Platelet Estimate Pending Platelet Morphology Pending Sodium Level 152 MMOL/L (136-145) H Potassium Level 2.8 MMOL/L (3.5-5.1) L Chloride Level 114 MMOL/L (98-107) H Carbon Dioxide Level 22 MMOL/L (21-32) Anion Gap 16 mmol/L (5-15) H Blood Urea Nitrogen 51 mg/dL (7-18) H Creatinine 6.9 MG/DL (0.55-1.30) H Estimat Glomerular Filtration Rate 9.0 mL/min (>60) Glucose Level 159 MG/DL (74-106) H Uric Acid 9.4 MG/DL (2.6-7.2) H Calcium Level 8.1 MG/DL (8.5-10.1) L Phosphorus Level 4.0 MG/DL (2.5-4.9) Magnesium Level 2.2 MG/DL (1.8-2.4) Total Bilirubin 34.6 MG/DL (0.2-1.0) H Direct Bilirubin 28.0 MG/DL (0.0-0.3) H Gamma Glutamyl Transpeptidase 187 U/L (5-85) H Aspartate Amino Transf (AST/SGOT) 142 U/L (15-37) H Alanine Aminotransferase (ALT/SGPT) 21 U/L (12-78) Alkaline Phosphatase 255 U/L (46-116) H C-Reactive Protein, Quantitative 14.6 mg/dL (0.00-0.90) H Pro-B-Type Natriuretic Peptide 3085 pg/mL (0-125) H Total Protein 5.1 G/DL (6.4-8.2) L Albumin 1.6 G/DL (3.4-5.0) L Globulin 3.5 g/dL Albumin/Globulin Ratio 0.5 (1.0-2.7) L Objective HEAD AND NECK: No JVD. Sclera is icteric. R IJ Perm Cath LUNGS: Decreased breath sounds. CARDIOVASCULAR: Tachy S1 and S2 with no gallop. ABDOMEN: Distended with ascites. EXTREMITIES: 2+ pitting edema. Felice Smith MD Jul 06, 2019 07:23
--- NOTE | 2019-07-06 08:11 | Nephrology Progress Note ---
Assessment/Plan Problem List: (1) End-stage liver disease (2) Hepatorenal syndrome (3) Pancreatitis, alcoholic, acute (4) Acute alcoholic intoxication (5) Anemia (6) Respiratory failure (7) Hypernatremia Assessment Acute alcoholic intoxication End-stage liver disease Hepatorenal syndrome Pancreatitis, alcoholic, acute Anemia Plan since still full code- will attempt dialysis I CONSIDER TREATMENT OF THIS PATIENT TO BE FUTILE correct low K per orders on 06/28/19 met with Brother- Liliana Reyes [employer] Brother will discuss with family regarding DNR and comfort care K and Mag and phos supplement as needed has parker NO OUTPUT has RT (rectal tube) on lactulose discussed with RN Correct lytes IV protonix lactulose Folate and Thiamin per GI transfuse per consultants Subjective ROS Limited/Unobtainable: Yes Objective Objective Last 24 Hour Vital Signs Date Time Temp Pulse Resp B/P (MAP) Pulse Ox O2 Delivery O2 Flow Rate FiO2 07/06/19 07:15 85 30 98 Bi-Pap 28 92 30 97 07/06/19 07:03 92 30 97 Full Face 28 07/06/19 07:03 97 Bi-Pap 28 07/06/19 07:00 89 27 116/59 (78) 98 07/06/19 06:00 88 19 107/54 (71) 99 07/06/19 05:17 89 35 99 Full Face 28 07/06/19 05:00 89 24 109/59 (76) 98 07/06/19 04:00 91 07/06/19 04:00 Nasal Cannula 2.0 07/06/19 04:00 28 07/06/19 04:00 99.0 89 23 112/58 (76) 99 07/06/19 03:10 84 24 100 Bi-Pap 28 85 25 100 07/06/19 03:00 86 20 115/56 (75) 100 07/06/19 02:58 85 25 100 Full Face 28 07/06/19 02:00 84 20 78/35 (49) 100 07/06/19 01:30 88 21 116/55 (75) 97 07/06/19 01:00 90 20 116/51 (72) 98 07/06/19 00:59 91 23 100 Full Face 28 07/06/19 00:00 28 07/06/19 00:00 98.8 93 21 117/53 (74) 99 07/06/19 00:00 89 07/06/19 00:00 117/53 07/06/19 00:00 Nasal Cannula 2.0 07/05/19 23:30 97 21 129/57 (81) 98 07/05/19 23:00 100 21 134/61 (85) 92 07/05/19 23:00 28 07/05/19 23:00 127/57 07/05/19 22:51 96 30 98 Full Face 28 07/05/19 22:48 97 27 100 Nasal Cannula 2.0 28 91 28 100 07/05/19 22:30 92 27 106/48 (67) 100 07/05/19 22:00 119/51 07/05/19 22:00 100.9 98 27 119/51 (73) 100 07/05/19 21:30 102 29 118/63 (81) 98 07/05/19 21:00 102 31 80/40 (53) 96 07/05/19 21:00 118/63 07/05/19 20:30 105 30 101/52 (68) 95 07/05/19 20:00 2.0 07/05/19 20:00 103.1 107 31 101/46 (64) 93 07/05/19 20:00 Nasal Cannula 2.0 07/05/19 20:00 91/50 07/05/19 20:00 101 07/05/19 19:30 103 28 95/45 (62) 95 07/05/19 19:17 106 30 98 Nasal Cannula 2.0 28 102 28 95 07/05/19 19:07 95 Nasal Cannula 2.0 28 07/05/19 19:00 89/46 07/05/19 19:00 101 30 95/41 (59) 95 07/05/19 18:00 100/44 07/05/19 18:00 103 24 100/44 (62) 95 07/05/19 17:45 106 28 100/45 (63) 96 07/05/19 17:30 106 30 101/51 (68) 95 07/05/19 17:15 108 28 97/41 (59) 95 07/05/19 17:00 108 30 94/40 (58) 95 07/05/19 17:00 94/40 07/05/19 16:45 108 30 101/40 (60) 94 07/05/19 16:30 111 29 100/44 (62) 93 07/05/19 16:15 111 32 102/42 (62) 94 07/05/19 16:00 99.6 110 28 115/42 (66) 94 07/05/19 16:00 95/38 07/05/19 16:00 Nasal Cannula 2.0 07/05/19 16:00 112 07/05/19 15:45 121 35 115/42 (66) 93 07/05/19 15:30 110 30 94/42 (59) 94 07/05/19 15:15 115 25 99/45 (63) 07/05/19 15:00 103/40 07/05/19 15:00 119 29 99/45 (63) 93 07/05/19 14:56 118 29 91/45 (60) 96 07/05/19 14:45 114 26 95/46 (62) 96 07/05/19 14:41 115 26 98 Nasal Cannula 2.0 28 115 28 94 07/05/19 14:30 116 28 93/42 (59) 92 07/05/19 14:15 112 25 96/46 (63) 93 07/05/19 14:00 111/49 07/05/19 14:00 125 24 111/49 (69) 94 07/05/19 13:45 119 24 103/45 (64) 96 07/05/19 13:32 120 21 107/47 (67) 96 07/05/19 13:30 118 25 108/67 (81) 95 07/05/19 13:15 116 25 108/67 (81) 95 07/05/19 13:00 100 27 108/67 (81) 95 07/05/19 13:00 93/45 07/05/19 12:45 96 28 87/45 (59) 96 07/05/19 12:42 90/41 07/05/19 12:30 96 27 90/41 (57) 96 07/05/19 12:15 95 30 92/38 (56) 97 07/05/19 12:00 98.8 96 26 90/41 (57) 100 07/05/19 12:00 98.8 96 26 100 07/05/19 12:00 Nasal Cannula 2.0 07/05/19 11:34 99 07/05/19 11:00 101 24 97/48 (64) 100 07/05/19 10:41 93 22 100 Nasal Cannula 2.0 28 94 19 97 07/05/19 10:00 100.3 07/05/19 10:00 100.3 98 25 101/45 (63) 94 07/05/19 10:00 100.3 07/05/19 09:00 97 30 89/63 (72) 97 Intake and Output 07/05/19 07/06/19 18:59 06:59 Intake Total 1502.138 ml 633.372 ml Output Total 2205 ml 1500 ml Balance -702.862 ml -866.628 ml Free Water 240 ml 60 ml IV Total 722.138 ml 33.372 ml Tube Feeding 540 ml 540 ml Output Urine Total 5 ml 0 ml Stool Total 200 ml 1500 ml Hemodialysis UF 2000 ml Laboratory Tests 07/06/19 04:00: White Blood Count 33.6*H, Red Blood Count 2.44L, Hemoglobin 7.6L, Hematocrit 24.6L, Mean Corpuscular Volume 101H, Mean Corpuscular Hemoglobin 31.3H, Mean Corpuscular Hemoglobin Concent 31.1L, Red Cell Distribution Width 24.8H, Platelet Count 182, Mean Platelet Volume 9.0, Neutrophils (%) (Auto) , Lymphocytes (%) (Auto) , Monocytes (%) (Auto) , Eosinophils (%) (Auto) , Basophils (%) (Auto) , Neutrophils % (Manual) [Pending], Lymphocytes % (Manual) [Pending], Platelet Estimate [Pending], Platelet Morphology [Pending], Sodium Level 152H, Potassium Level 2.8L, Chloride Level 114H, Carbon Dioxide Level 22, Anion Gap 16H, Blood Urea Nitrogen 51H, Creatinine 6.9H, Estimat Glomerular Filtration Rate 9.0, Glucose Level 159H, Uric Acid 9.4H, Calcium Level 8.1L, Phosphorus Level 4.0, Magnesium Level 2.2, Total Bilirubin 34.6H, Direct Bilirubin 28.0H, Gamma Glutamyl Transpeptidase 187H, Aspartate Amino Transf (AST /SGOT) 142H, Alanine Aminotransferase (ALT/SGPT) 21, Alkaline Phosphatase 255H, C-Reactive Protein, Quantitative 14.6H, Pro-B-Type Natriuretic Peptide 3085H, Total Protein 5.1L, Albumin 1.6L, Globulin 3.5, Albumin/Globulin Ratio 0.5L 07/06/19 07:20: Lactic Acid Level 2.10H, Ammonia 58H Height (Feet): 5 Height (Inches): 9.00 Weight (Pounds): 225 General Appearance: no apparent distress, other - jaundiced Respiratory/Chest: decreased breath sounds Abdomen: distended Arthur Lay MD Jul 06, 2019 08:11
[2019-07-06] MEDS: Lactulose 20gm/30ml UDC NG SCH ×4 (09:18→20:30)
[2019-07-06] MEDS: Pantoprazole Inj IVP SCH ×2 (09:18→20:30)
--- NOTE | 2019-07-06 10:11 | Diagnostic Imaging Report ---
Indication: Shortness of breath Technique: One view of the chest Comparison: Line 07/13/2019 post dialysis catheter radiograph Findings: Right jugular temporary dialysis catheter is again demonstrated. There is bilateral interstitial congestion, appearing slightly worse than on the prior study. This may be exaggerated by low lung volumes, however. There may be small bilateral pleural effusions. The heart is borderline enlarged Impression: Hypoventilatory exam with crowding of bronchovascular markings Suspect mild interstitial congestion Possible small bilateral pleural effusions
--- NOTE | 2019-07-06 10:15 | General Progress Note ---
Assessment/Plan Problem List: (1) Pancreatitis, alcoholic, acute ICD Codes: K85.20 - Alcohol induced acute pancreatitis without necrosis or infection SNOMED: 755350549, [id number] Qualifiers: Qualified Codes: K85.20 - Alcohol induced acute pancreatitis without necrosis or infection (2) Acute alcoholic intoxication ICD Codes: F10.929 - Alcohol use, unspecified with intoxication, unspecified SNOMED: 14208904, [id number] Qualifiers: Qualified Codes: F10.920 - Alcohol use, unspecified with intoxication, uncomplicated (3) Anemia ICD Codes: D64.9 - Anemia, unspecified SNOMED: 018788244 Qualifiers: Qualified Codes: D64.9 - Anemia, unspecified Status: progressing, not improved, unchanged Assessment/Plan: discriminant factor of 16 NGTF repeat labs fu nephrology cont lactulose xifaxan prn paracentesis >>> ordered one for today poor prognosis Subjective ROS Limited/Unobtainable: No Allergies: Coded Allergies: No Known Allergies (Unverified , 06/20/19) Objective Last 24 Hour Vital Signs Date Time Temp Pulse Resp B/P (MAP) Pulse Ox O2 Delivery O2 Flow Rate FiO2 07/06/19 09:52 83 17 100 07/06/19 09:30 83 19 100 07/06/19 09:00 86 20 123/64 (83) 100 07/06/19 08:00 91 07/06/19 08:00 99.3 88 23 123/54 (77) 100 07/06/19 08:00 Bi-pap 07/06/19 07:15 85 30 98 Bi-Pap 28 92 30 97 07/06/19 07:03 92 30 97 Full Face 28 07/06/19 07:03 97 Bi-Pap 28 07/06/19 07:00 89 27 116/59 (78) 98 07/06/19 06:00 88 19 107/54 (71) 99 07/06/19 05:17 89 35 99 Full Face 28 07/06/19 05:00 89 24 109/59 (76) 98 07/06/19 04:00 91 07/06/19 04:00 Nasal Cannula 2.0 07/06/19 04:00 28 07/06/19 04:00 99.0 89 23 112/58 (76) 99 07/06/19 03:10 84 24 100 Bi-Pap 28 85 25 100 07/06/19 03:00 86 20 115/56 (75) 100 07/06/19 02:58 85 25 100 Full Face 28 07/06/19 02:00 84 20 78/35 (49) 100 07/06/19 01:30 88 21 116/55 (75) 97 07/06/19 01:00 90 20 116/51 (72) 98 07/06/19 00:59 91 23 100 Full Face 28 07/06/19 00:00 28 07/06/19 00:00 98.8 93 21 117/53 (74) 99 07/06/19 00:00 89 07/06/19 00:00 117/53 07/06/19 00:00 Nasal Cannula 2.0 07/05/19 23:30 97 21 129/57 (81) 98 07/05/19 23:00 100 21 134/61 (85) 92 07/05/19 23:00 28 07/05/19 23:00 127/57 07/05/19 22:51 96 30 98 Full Face 28 07/05/19 22:48 97 27 100 Nasal Cannula 2.0 28 91 28 100 07/05/19 22:30 92 27 106/48 (67) 100 07/05/19 22:00 119/51 07/05/19 22:00 100.9 98 27 119/51 (73) 100 07/05/19 21:30 102 29 118/63 (81) 98 07/05/19 21:00 102 31 80/40 (53) 96 07/05/19 21:00 118/63 07/05/19 20:30 105 30 101/52 (68) 95 07/05/19 20:00 2.0 07/05/19 20:00 103.1 107 31 101/46 (64) 93 07/05/19 20:00 Nasal Cannula 2.0 07/05/19 20:00 91/50 07/05/19 20:00 101 07/05/19 19:30 103 28 95/45 (62) 95 07/05/19 19:17 106 30 98 Nasal Cannula 2.0 28 102 28 95 07/05/19 19:07 95 Nasal Cannula 2.0 28 07/05/19 19:00 89/46 07/05/19 19:00 101 30 95/41 (59) 95 07/05/19 18:00 100/44 07/05/19 18:00 103 24 100/44 (62) 95 07/05/19 17:45 106 28 100/45 (63) 96 07/05/19 17:30 106 30 101/51 (68) 95 07/05/19 17:15 108 28 97/41 (59) 95 07/05/19 17:00 108 30 94/40 (58) 95 07/05/19 17:00 94/40 07/05/19 16:45 108 30 101/40 (60) 94 07/05/19 16:30 111 29 100/44 (62) 93 07/05/19 16:15 111 32 102/42 (62) 94 07/05/19 16:00 99.6 110 28 115/42 (66) 94 07/05/19 16:00 95/38 07/05/19 16:00 Nasal Cannula 2.0 07/05/19 16:00 112 07/05/19 15:45 121 35 115/42 (66) 93 07/05/19 15:30 110 30 94/42 (59) 94 07/05/19 15:15 115 25 99/45 (63) 07/05/19 15:00 103/40 07/05/19 15:00 119 29 99/45 (63) 93 07/05/19 14:56 118 29 91/45 (60) 96 07/05/19 14:45 114 26 95/46 (62) 96 07/05/19 14:41 115 26 98 Nasal Cannula 2.0 28 115 28 94 07/05/19 14:30 116 28 93/42 (59) 92 07/05/19 14:15 112 25 96/46 (63) 93 07/05/19 14:00 111/49 07/05/19 14:00 125 24 111/49 (69) 94 07/05/19 13:45 119 24 103/45 (64) 96 07/05/19 13:32 120 21 107/47 (67) 96 07/05/19 13:30 118 25 108/67 (81) 95 07/05/19 13:15 116 25 108/67 (81) 95 07/05/19 13:00 100 27 108/67 (81) 95 07/05/19 13:00 93/45 07/05/19 12:45 96 28 87/45 (59) 96 07/05/19 12:42 90/41 07/05/19 12:30 96 27 90/41 (57) 96 07/05/19 12:15 95 30 92/38 (56) 97 07/05/19 12:00 98.8 96 26 90/41 (57) 100 07/05/19 12:00 98.8 96 26 100 07/05/19 12:00 Nasal Cannula 2.0 07/05/19 11:34 99 07/05/19 11:00 101 24 97/48 (64) 100 07/05/19 10:41 93 22 100 Nasal Cannula 2.0 28 94 19 97 Intake and Output 07/05/19 07/06/19 18:59 06:59 Intake Total 1502.138 ml 633.372 ml Output Total 2205 ml 1500 ml Balance -702.862 ml -866.628 ml Free Water 240 ml 60 ml IV Total 722.138 ml 33.372 ml Tube Feeding 540 ml 540 ml Output Urine Total 5 ml 0 ml Stool Total 200 ml 1500 ml Hemodialysis UF 2000 ml Laboratory Tests 07/06/19 04:00: White Blood Count 33.6*H, Red Blood Count 2.44L, Hemoglobin 7.6L, Hematocrit 24.6L, Mean Corpuscular Volume 101H, Mean Corpuscular Hemoglobin 31.3H, Mean Corpuscular Hemoglobin Concent 31.1L, Red Cell Distribution Width 24.8H, Platelet Count 182, Mean Platelet Volume 9.0, Neutrophils (%) (Auto) , Lymphocytes (%) (Auto) , Monocytes (%) (Auto) , Eosinophils (%) (Auto) , Basophils (%) (Auto) , Differential Total Cells Counted 100, Neutrophils % ( Manual) 69, Lymphocytes % (Manual) 5L, Monocytes % (Manual) 6, Eosinophils % ( Manual) 0, Basophils % (Manual) 0, Myelocytes % 1H, Band Neutrophils 19H, Nucleated Red Blood Cells 2, Platelet Estimate Adequate, Platelet Morphology Normal, Polychromasia 1+, Hypochromasia 2+, Anisocytosis 3+, Macrocytosis 1+, Sodium Level 152H, Potassium Level 2.8L, Chloride Level 114H, Carbon Dioxide Level 22, Anion Gap 16H, Blood Urea Nitrogen 51H, Creatinine 6.9H, Estimat Glomerular Filtration Rate 9.0, Glucose Level 159H, Uric Acid 9.4H, Calcium Level 8.1L, Phosphorus Level 4.0, Magnesium Level 2.2, Total Bilirubin 34.6H, Direct Bilirubin 28.0H, Gamma Glutamyl Transpeptidase 187H, Aspartate Amino Transf (AST/SGOT) 142H, Alanine Aminotransferase (ALT/SGPT) 21, Alkaline Phosphatase 255H, C-Reactive Protein, Quantitative 14.6H, Pro-B-Type Natriuretic Peptide 3085H, Total Protein 5.1L, Albumin 1.6L, Globulin 3.5, Albumin/Globulin Ratio 0.5L 07/06/19 07:20: Lactic Acid Level 2.10H, Ammonia 58H Height (Feet): 5 Height (Inches): 9.00 Weight (Pounds): 225 General Appearance: lethargic EENT: scleral icterus Neck: supple Cardiovascular: normal rate Respiratory/Chest: decreased breath sounds Abdomen: soft, hypoactive bowel sounds, distended Extremities: non-tender Merlin Esposito MD Jul 06, 2019 10:15
[2019-07-06] MEDS: Meropenem 500 MG in NS 55 ML IVPB SCH (12:04)
--- NOTE | 2019-07-06 12:21 | Infectious Diseases Prog Note ---
Assessment/Plan Assessment/Plan IMPRESSION: 1. Sepsis. new fever, increase in WBC 2. Systemic inflammatory response syndrome. 3. Tachycardia. 4. Leukocytosis. 5. colitis, 6.Alcoholic pancreatitis, 7.Cirrhosis of liver, 8. Acute renal failure likely hepatorenal syndrome, - ESRD 9.Anemia, 10. thrombocytopenia, 11.hypocalcemia, 12.hypomagnesemia, corrected 13 hypokalemia, corrected 14, Alcohol withdrawal. 15.Metabolic encephalopathy 16. Hypophosphatemia 17. Hypernatremia 18. Hypoxic respiratory failure RECOMMENDATION: continue Vancomycin & Meropenem will have paracentesis today Poor prognosis Subjective ROS Limited/Unobtainable: Yes Constitutional: Reports: fever, other - [id number] Allergies: Coded Allergies: No Known Allergies (Unverified , 06/20/19) Objective Vital Signs Last 24 Hour Vital Signs Date Time Temp Pulse Resp B/P (MAP) Pulse Ox O2 Delivery O2 Flow Rate FiO2 07/06/19 11:00 81 25 118/54 (75) 98 07/06/19 10:00 81 17 109/52 (71) 100 07/06/19 09:52 83 17 100 07/06/19 09:30 83 19 100 07/06/19 09:00 86 20 123/64 (83) 100 07/06/19 08:00 28 07/06/19 08:00 91 07/06/19 08:00 99.3 88 23 123/54 (77) 100 07/06/19 08:00 Bi-pap 07/06/19 07:15 85 30 98 Bi-Pap 28 92 30 97 07/06/19 07:03 92 30 97 Full Face 28 07/06/19 07:03 97 Bi-Pap 28 07/06/19 07:00 89 27 116/59 (78) 98 07/06/19 06:00 88 19 107/54 (71) 99 07/06/19 05:17 89 35 99 Full Face 28 07/06/19 05:00 89 24 109/59 (76) 98 07/06/19 04:00 91 07/06/19 04:00 Nasal Cannula 2.0 07/06/19 04:00 28 07/06/19 04:00 99.0 89 23 112/58 (76) 99 07/06/19 03:10 84 24 100 Bi-Pap 28 85 25 100 07/06/19 03:00 86 20 115/56 (75) 100 07/06/19 02:58 85 25 100 Full Face 28 07/06/19 02:00 84 20 78/35 (49) 100 07/06/19 01:30 88 21 116/55 (75) 97 07/06/19 01:00 90 20 116/51 (72) 98 07/06/19 00:59 91 23 100 Full Face 28 07/06/19 00:00 28 07/06/19 00:00 98.8 93 21 117/53 (74) 99 07/06/19 00:00 89 07/06/19 00:00 117/53 07/06/19 00:00 Nasal Cannula 2.0 07/05/19 23:30 97 21 129/57 (81) 98 07/05/19 23:00 100 21 134/61 (85) 92 07/05/19 23:00 28 07/05/19 23:00 127/57 07/05/19 22:51 96 30 98 Full Face 28 07/05/19 22:48 97 27 100 Nasal Cannula 2.0 28 91 28 100 07/05/19 22:30 92 27 106/48 (67) 100 07/05/19 22:00 119/51 07/05/19 22:00 100.9 98 27 119/51 (73) 100 07/05/19 21:30 102 29 118/63 (81) 98 07/05/19 21:00 102 31 80/40 (53) 96 07/05/19 21:00 118/63 07/05/19 20:30 105 30 101/52 (68) 95 07/05/19 20:00 2.0 07/05/19 20:00 103.1 107 31 101/46 (64) 93 07/05/19 20:00 Nasal Cannula 2.0 07/05/19 20:00 91/50 07/05/19 20:00 101 07/05/19 19:30 103 28 95/45 (62) 95 07/05/19 19:17 106 30 98 Nasal Cannula 2.0 28 102 28 95 07/05/19 19:07 95 Nasal Cannula 2.0 28 07/05/19 19:00 89/46 07/05/19 19:00 101 30 95/41 (59) 95 07/05/19 18:00 100/44 07/05/19 18:00 103 24 100/44 (62) 95 07/05/19 17:45 106 28 100/45 (63) 96 07/05/19 17:30 106 30 101/51 (68) 95 07/05/19 17:15 108 28 97/41 (59) 95 07/05/19 17:00 108 30 94/40 (58) 95 07/05/19 17:00 94/40 07/05/19 16:45 108 30 101/40 (60) 94 07/05/19 16:30 111 29 100/44 (62) 93 07/05/19 16:15 111 32 102/42 (62) 94 07/05/19 16:00 99.6 110 28 115/42 (66) 94 07/05/19 16:00 95/38 07/05/19 16:00 Nasal Cannula 2.0 07/05/19 16:00 112 07/05/19 15:45 121 35 115/42 (66) 93 07/05/19 15:30 110 30 94/42 (59) 94 07/05/19 15:15 115 25 99/45 (63) 07/05/19 15:00 103/40 07/05/19 15:00 119 29 99/45 (63) 93 07/05/19 14:56 118 29 91/45 (60) 96 07/05/19 14:45 114 26 95/46 (62) 96 07/05/19 14:41 115 26 98 Nasal Cannula 2.0 28 115 28 94 07/05/19 14:30 116 28 93/42 (59) 92 07/05/19 14:15 112 25 96/46 (63) 93 07/05/19 14:00 111/49 07/05/19 14:00 125 24 111/49 (69) 94 07/05/19 13:45 119 24 103/45 (64) 96 07/05/19 13:32 120 21 107/47 (67) 96 07/05/19 13:30 118 25 108/67 (81) 95 07/05/19 13:15 116 25 108/67 (81) 95 07/05/19 13:00 100 27 108/67 (81) 95 07/05/19 13:00 93/45 07/05/19 12:45 96 28 87/45 (59) 96 07/05/19 12:42 90/41 07/05/19 12:30 96 27 90/ (57) 96 Height (Feet): 5 Height (Inches): 9.00 Weight (Pounds): 225 HEENT: mucous membranes moist, other - icterus Respiratory/Chest: lungs clear Cardiovascular: normal rate, other - RIJ HD line, Left arm PICC line Abdomen: distended, other - NG tube & rectal tube Extremities: other - nasarca Skin: no rash Neurologic/Psychiatric: other - lethargic Laboratory Tests Test 07/06/19 04:00 07/06/19 07:20 07/06/19 11:20 White Blood Count 33.6 K/UL (4.8-10.8) *H Red Blood Count 2.44 M/UL (4.70-6.10) L Hemoglobin 7.6 G/DL (14.2-18.0) L Hematocrit 24.6 % (42.0-52.0) L Mean Corpuscular Volume 101 FL (80-99) H Mean Corpuscular Hemoglobin 31.3 PG (27.0-31.0) H Mean Corpuscular Hemoglobin Concent 31.1 G/DL (32.0-36.0) L Red Cell Distribution Width 24.8 % (11.6-14.8) H Platelet Count 182 K/UL (150-450) Mean Platelet Volume 9.0 FL (6.5-10.1) Neutrophils (%) (Auto) % (45.0-75.0) Lymphocytes (%) (Auto) % (20.0-45.0) Monocytes (%) (Auto) % (1.0-10.0) Eosinophils (%) (Auto) % (0.0-3.0) Basophils (%) (Auto) % (0.0-2.0) Differential Total Cells Counted 100 Neutrophils % (Manual) 69 % (45-75) Lymphocytes % (Manual) 5 % (20-45) L Monocytes % (Manual) 6 % (1-10) Eosinophils % (Manual) 0 % (0-3) Basophils % (Manual) 0 % (0-2) Myelocytes % 1 % (0-0) H Band Neutrophils 19 % (0-8) H Nucleated Red Blood Cells 2 /100 WBC Platelet Estimate Adequate Platelet Morphology Normal Polychromasia 1+ Hypochromasia 2+ Anisocytosis 3+ Macrocytosis 1+ Sodium Level 152 MMOL/L (136-145) H Potassium Level 2.8 MMOL/L (3.5-5.1) L Chloride Level 114 MMOL/L (98-107) H Carbon Dioxide Level 22 MMOL/L (21-32) Anion Gap 16 mmol/L (5-15) H Blood Urea Nitrogen 51 mg/dL (7-18) H Creatinine 6.9 MG/DL (0.55-1.30) H Estimat Glomerular Filtration Rate 9.0 mL/min (>60) Glucose Level 159 MG/DL (74-106) H Uric Acid 9.4 MG/DL (2.6-7.2) H Calcium Level 8.1 MG/DL (8.5-10.1) L Phosphorus Level 4.0 MG/DL (2.5-4.9) Magnesium Level 2.2 MG/DL (1.8-2.4) Total Bilirubin 34.6 MG/DL (0.2-1.0) H Direct Bilirubin 28.0 MG/DL (0.0-0.3) H Gamma Glutamyl Transpeptidase 187 U/L (5-85) H Aspartate Amino Transf (AST/SGOT) 142 U/L (15-37) H Alanine Aminotransferase (ALT/SGPT) 21 U/L (12-78) Alkaline Phosphatase 255 U/L (46-116) H C-Reactive Protein, Quantitative 14.6 mg/dL (0.00-0.90) H Pro-B-Type Natriuretic Peptide 3085 pg/mL (0-125) H Total Protein 5.1 G/DL (6.4-8.2) L Albumin 1.6 G/DL (3.4-5.0) L Globulin 3.5 g/dL Albumin/Globulin Ratio 0.5 (1.0-2.7) L Lactic Acid Level 2.10 mmol/L (0.4-2.0) H 2.00 mmol/L (0.66-2.22) Ammonia 58 umol/L (11-32) H Current Medications Medications (Trade) Dose Ordered Sig/Gabriela Route PRN Reason Start Time Stop Time Status Last Admin Dose Admin Albuterol/ Ipratropium (Albuterol/ Ipratropium) 3 ml Q4HRT HHN 07/04/19 15:00 07/09/19 14:59 07/06/19 11:07 Chlorhexidine Gluconate (Emilie-Hex 2%) 1 applic DAILY@2000 TOPIC 06/26/19 20:00 07/26/19 19:59 07/05/19 20:28 Dopamine HCl/ Dextrose 250 ml @ 0 mls/hr Q24H IV 06/30/19 14:53 07/30/19 14:52 07/05/19 12:42 Epoetin Michael (Epoetin Michael(ESRD on dialysis)) 2,000 unit TUE-TUE-TUE SUBQ 07/02/19 21:00 08/01/19 20:59 07/04/19 20:37 Epoetin Michael (Epoetin Michael(ESRD on dialysis)) 3,000 unit TUE-TUE-TUE SUBQ 07/02/19 21:00 08/01/19 20:59 07/04/19 20:37 Lactulose (Cephulac) 30 gm FOUR TIMES A DAY NG 07/01/19 09:00 07/20/19 12:59 07/06/19 09:18 Meropenem 500 mg/ Sodium Chloride 55 ml @ 110 mls/hr Q24H IVPB 07/05/19 12:00 07/10/19 11:59 07/06/19 12:04 Pantoprazole (Protonix) 40 mg EVERY 12 HOURS IVP 06/21/19 21:00 07/20/19 20:59 07/06/19 09:18 Potassium Chloride 100 ml @ 100 mls/hr Q1HR IVPB 07/06/19 07:00 07/06/19 12:59 07/06/19 12:04 Vancomycin HCl (Vanco rx to dose) 1 ea DAILY PRN MISC Per rx protocol 07/05/19 10:45 08/04/19 10:44 Ilia Chakraborty MD Jul 06, 2019 12:21
[2019-07-06] MEDS: DOPamine 400mg/250ml 250 ML IV SCH (14:53)
--- NOTE | 2019-07-06 14:53 | Pre-Procedure Note/Attestation ---
Pre-Procedure Note/Attestation Complete Prior to Procedure Planned Procedure: not applicable Procedure Narrative: paracentesis Indications for Procedure Pre-Operative Diagnosis: ascites Attestation I attest that I discussed the nature of the procedure; its benefits; risks and complications; and alternatives (and the risks and benefits of such alternatives ), prior to the procedure, with the patient (or the patient's legal auto service representative). I attest that, if there was a reasonable possibility of needing a blood transfusion, the patient (or the patient's legal auto service representative) was given the [facility] standardized written summary, pursuant to the [place] Blood Safety Act ([place] [facility] and Safety Code # 1645, as amended). I attest that I re-evaluated the patient just prior to the surgery and that there has been no change in the patient's H&P, except as documented below: Discussed by phone with pt's. Fracisco da silva Robert MD Jul 06, 2019 14:53
--- NOTE | 2019-07-06 15:25 | Hematology/Onc Progress Note ---
Assessment/Plan Assessment/Plan Assessment and Recs: # Thrombocytopenia - potential causes multifactorial, does have a history of etoh abuse, cirrhosis of the liver, hepatosplenomegaly, portal HTN, coagulopathy noted as well, likely oscillatory pattern can be due to abx as well --> Hep panel and HIV ordered (NEG) --> US abd does show, portal htn and cirrhosis ++ --> Peripheral smear ordered to evaluate for blasts /schistocytes reviewed and is negative --> abx and other meds have been reviewed --> ok for ppx if plt >50k w/ either heparin or lovenox --> Transfuse if Plt < 20k and fever, or if Plt < 10k without fever --> plt trend 80-->97-->117-->157k->216k-->107k-->72k-->68k-->109k-->108k-->148k -->176k-->182k # Anemia of chronic disease due to underlying chronic medical issues, multifactorial (myelosuprresion noted) --> Anemia workup has been reviewed, ferritin 297 --> EPOGEN HAS BEEN ORDERED WITH HD --> Hgb goal >7. Transfuse prn. --> Epogen or iron at this time is not particularly indicated --> Medications have been reviewed --> low threshold for gi evaluation in case has occult + --> hgb trend: 7.7-->8.2-->9->8.4-->8.3-->8.2-->8-->7.4->7.3-->7.7-->7.8-->7.6 --> serum electrophoresis shows no m-spike 06/27 # Coagulopathy due to cirrhosis --> give Vitk as needed # Leukocytosis with sepsis is on abx --> ID following, appreciate recs --> wbc trend: 17k-->13.9-->19.5-->18.7-->27.4-->33.6 --> FLAGYL and CTX # Acute alcoholic intoxication --> etoh abuse history --> thiamine, folic acid, ivf # End-stage liver disease --> Hepatorenal syndrome r/o with renal, albumin prn # Pancreatitis, alcoholic, acute # Tachycardia # Dvt ppx with scds given low plts # POOR PROGNOSIS, Bioethics consult pending The timing of this note does not necessarily reflect the time of the patient was seen. GREATLY APPRECIATE CONSULTATION. Subjective Allergies: Coded Allergies: No Known Allergies (Unverified , 06/20/19) Subjective 06/21: low k, ferritin 297, h/h stable, afebrile, blood transfused 06/22: in icu, on restraints, labs reviewed, no f/c, imaging reviewed 06/23: pain meds given, remains in icu, again in restraints, bili higher, inr as well, given vitk 06/25: no fevers, no chills, no bleeding, confused in bed in icu 06/26: no events to report, no bleeding, remains in icu, ++ bipap 06/27: icu,s/p paracentesis yesterday, off pressors, h/h stable 06/28: on ctx/flagyl, remains confused, no bleeding, plt is lower 06/29: no f/c, on abx, no acute events, no distress, labs reviewed 06/30: remains in the icu, on abx, no f/c, scds+ 07/02: remains in the icu, no fevers or chills, prbc ordered, as well as epo 07/03: remains in the icu, on restraints, on abx, labs noted, vs stable, no acute events 07/04: dw team and agree patient with very poor prognosis, pending bioethics consult 07/05: remains in icu, very poor prognosis, labs noted wbc 27.4, off bipap receiving repiratory tx 07/06: remains icu, very poor prognosis, wbc 33.6 trending up, no f/c, vs stable , on bipap, paracentesis pending Objective Objective Current Medications Medications (Trade) Dose Ordered Sig/Gabriela Route PRN Reason Start Time Stop Time Status Last Admin Dose Admin Albuterol/ Ipratropium (Albuterol/ Ipratropium) 3 ml Q4HRT HHN 07/04/19 15:00 07/09/19 14:59 07/06/19 15:11 Chlorhexidine Gluconate (Emilie-Hex 2%) 1 applic DAILY@1999 TOPIC 06/26/19 20:00 10/3/19 19:59 07/05/19 20:28 Dopamine HCl/ Dextrose 250 ml @ 0 mls/hr Q24H IV 06/30/19 14:53 07/30/19 14:52 07/05/19 12:42 Epoetin Michael (Epoetin Michael(ESRD on dialysis)) 2,000 unit TUE-TUE-TUE SUBQ 07/02/19 21:00 08/01/19 20:59 07/04/19 20:37 Epoetin Michael (Epoetin Michael(ESRD on dialysis)) 3,000 unit TUE-TUE-TUE SUBQ 07/02/19 21:00 08/01/19 20:59 07/04/19 20:37 Lactulose (Cephulac) 30 gm FOUR TIMES A DAY NG 07/01/19 09:00 07/20/19 12:59 07/06/19 13:09 Meropenem 500 mg/ Sodium Chloride 55 ml @ 110 mls/hr Q24H IVPB 07/05/19 12:00 07/10/19 11:59 07/06/19 12:04 Pantoprazole (Protonix) 40 mg EVERY 12 HOURS IVP 06/21/19 21:00 07/20/19 20:59 07/06/19 09:18 Vancomycin HCl (Vanco rx to dose) 1 ea DAILY PRN MISC Per rx protocol 07/05/19 10:45 08/04/19 10:44 Last 24 Hour Vital Signs Date Time Temp Pulse Resp B/P (MAP) Pulse Ox O2 Delivery O2 Flow Rate FiO2 07/06/19 15:11 78 16 94 Full Face 28 07/06/19 14:00 85 18 132/69 (90) 100 07/06/19 13:00 91 25 96/52 (67) 99 07/06/19 12:55 28 07/06/19 12:55 89 31 99 Full Face 28 07/06/19 12:00 98.2 88 27 97/67 (77) 96 07/06/19 12:00 85 07/06/19 12:00 Bi-pap 07/06/19 11:17 78 20 100 Room Air 21 77 21 97 07/06/19 11:00 81 25 118/54 (75) 98 07/06/19 10:00 81 17 109/52 (71) 100 07/06/19 09:52 83 17 100 07/06/19 09:30 83 19 100 07/06/19 09:00 86 20 123/64 (83) 100 07/06/19 08:00 28 07/06/19 08:00 91 07/06/19 08:00 99.3 88 23 123/54 (77) 100 07/06/19 08:00 Bi-pap 07/06/19 07:15 85 30 98 Bi-Pap 28 92 30 97 07/06/19 07:03 92 30 97 Full Face 28 07/06/19 07:03 97 Bi-Pap 28 07/06/19 07:00 89 27 116/59 (78) 98 07/06/19 06:00 88 19 107/54 (71) 99 07/06/19 05:17 89 35 99 Full Face 28 07/06/19 05:00 89 24 109/59 (76) 98 07/06/19 04:00 91 07/06/19 04:00 Nasal Cannula 2.0 07/06/19 04:00 28 07/06/19 04:00 99.0 89 23 112/58 (76) 99 07/06/19 03:10 84 24 100 Bi-Pap 28 85 25 100 07/06/19 03:00 86 20 115/56 (75) 100 07/06/19 02:58 85 25 100 Full Face 28 07/06/19 02:00 84 20 78/35 (49) 100 07/06/19 01:30 88 21 116/55 (75) 97 07/06/19 01:00 90 20 116/51 (72) 98 07/06/19 00:59 91 23 100 Full Face 28 07/06/19 00:00 28 07/06/19 00:00 98.8 93 21 117/53 (74) 99 07/06/19 00:00 89 07/06/19 00:00 117/53 07/06/19 00:00 Nasal Cannula 2.0 07/05/19 23:30 97 21 129/57 (81) 98 07/05/19 23:00 100 21 134/61 (85) 92 07/05/19 23:00 28 07/05/19 23:00 127/57 07/05/19 22:51 96 30 98 Full Face 28 07/05/19 22:48 97 27 100 Nasal Cannula 2.0 28 91 28 100 07/05/19 22:30 92 27 106/48 (67) 100 07/05/19 22:00 119/51 07/05/19 22:00 100.9 98 27 119/51 (73) 100 07/05/19 21:30 102 29 118/63 (81) 98 07/05/19 21:00 102 31 80/40 (53) 96 07/05/19 21:00 118/63 07/05/19 20:30 105 30 101/52 (68) 95 07/05/19 20:00 2.0 07/05/19 20:00 103.1 107 31 101/46 (64) 93 07/05/19 20:00 Nasal Cannula 2.0 07/05/19 20:00 91/50 07/05/19 20:00 101 07/05/19 19:30 103 28 95/45 (62) 95 07/05/19 19:17 106 30 98 Nasal Cannula 2.0 28 102 28 95 07/05/19 19:07 95 Nasal Cannula 2.0 28 07/05/19 19:00 89/46 07/05/19 19:00 101 30 95/41 (59) 95 07/05/19 18:00 100/44 07/05/19 18:00 103 24 100/44 (62) 95 07/05/19 17:45 106 28 100/45 (63) 96 07/05/19 17:30 106 30 101/51 (68) 95 07/05/19 17:15 108 28 97/41 (59) 95 07/05/19 17:00 108 30 94/40 (58) 95 07/05/19 17:00 94/40 07/05/19 16:45 108 30 101/40 (60) 94 07/05/19 16:30 111 29 100/44 (62) 93 07/05/19 16:15 111 32 102/42 (62) 94 07/05/19 16:00 99.6 110 28 115/42 (66) 94 07/05/19 16:00 95/38 07/05/19 16:00 Nasal Cannula 2.0 07/05/19 16:00 112 07/05/19 15:45 121 35 115/42 (66) 93 07/05/19 15:30 110 30 94/42 (59) 94 07/05/19 15:15 115 25 99/45 (63) 07/05/19 15:00 103/40 07/05/19 15:00 119 29 99/45 (63) 93 07/05/19 14:56 118 29 91/45 (60) 96 07/05/19 14:45 114 26 95/46 (62) 96 07/05/19 14:41 115 26 98 Nasal Cannula 2.0 28 115 28 94 07/05/19 14:30 116 28 93/42 (59) 92 07/05/19 14:15 112 25 96/46 (63) 93 07/05/19 14:00 111/49 07/05/19 14:00 125 24 111/49 (69) 94 07/05/19 13:45 119 24 103/45 (64) 96 07/05/19 13:32 120 21 107/47 (67) 96 07/05/19 13:30 118 25 108/67 (81) 95 07/05/19 13:15 116 25 108/67 (81) 95 07/05/19 13:00 100 27 108/67 (81) 95 07/05/19 13:00 93/45 07/05/19 12:45 96 28 87/45 (59) 96 07/05/19 12:42 90/41 07/05/19 12:30 96 27 90/41 (57) 96 07/05/19 12:15 95 30 92/38 (56) 97 07/05/19 12:00 98.8 96 26 90/41 (57) 100 07/05/19 12:00 98.8 96 26 100 07/05/19 12:00 Nasal Cannula 2.0 07/05/19 11:34 99 07/05/19 11:00 101 24 97/48 (64) 100 07/05/19 10:41 93 22 100 Nasal Cannula 2.0 28 94 19 97 07/05/19 10:00 100.3 07/05/19 10:00 100.3 98 25 101/45 (63) 94 07/05/19 10:00 100.3 07/05/19 09:00 97 30 89/63 (72) 97 07/05/19 08:00 Nasal Cannula 2.0 07/05/19 08:00 100.6 96 32 89/49 (62) 97 07/05/19 07:15 96 07/05/19 07:00 98 28 136/50 (78) 99 07/05/19 06:43 93 31 100 Nasal Cannula 3.0 32 89 31 100 07/05/19 06:39 100 Bi-Pap 28 07/05/19 06:00 96 26 114/53 (73) 100 07/05/19 05:00 98 26 106/48 (67) 99 07/05/19 04:53 97 34 100 Full Face 28 07/05/19 04:00 98.7 94 27 108/52 (70) 99 07/05/19 04:00 96 07/05/19 04:00 Nasal Cannula 2.0 07/05/19 03:57 98 32 98 Full Face 28 07/05/19 03:54 99 31 100 Bi-Pap 28 97 31 98 07/05/19 03:00 93 26 108/64 (79) 99 07/05/19 02:00 96 26 109/51 (70) 99 07/05/19 01:50 90 28 100 Full Face 28 07/05/19 01:00 87 26 95/50 (65) 98 07/05/19 00:00 Nasal Cannula 2.0 07/05/19 00:00 70 07/05/19 00:00 99.1 90 26 100/52 (68) 99 07/04/19 23:58 Full Face 07/04/19 23:44 92 34 94 Facial 28 92 34 94 Bi-Pap 28 07/04/19 23:00 87 27 107/52 (70) 98 07/04/19 22:00 88 27 102/50 (67) 97 07/04/19 21:17 92 32 100 Facial 28 07/04/19 21:00 86 27 104/50 (68) 99 07/04/19 20:15 84 35 100 Facial 28 07/04/19 20:00 99.2 87 28 107/55 (72) 98 07/04/19 20:00 88 30 100 Nasal Cannula 2.0 28 84 27 98 07/04/19 20:00 Nasal Cannula 2.0 07/04/19 20:00 Bi-Pap 07/04/19 20:00 86 07/04/19 19:00 82 28 105/50 (68) 97 07/04/19 18:00 78 28 112/53 (72) 98 07/04/19 17:00 78 29 111/64 (80) 96 07/04/19 16:00 87 07/04/19 16:00 Nasal Cannula 2.0 07/04/19 16:00 99.9 87 30 111/64 (80) 97 Intake and Output 07/05/19 07/06/19 19:00 07:00 Intake Total 1509.554 ml 625.956 ml Output Total 2205 ml 1500 ml Balance -695.446 ml -874.044 ml Free Water 240 ml 60 ml IV Total 729.554 ml 25.956 ml Tube Feeding 540 ml 540 ml Output Urine Total 5 ml 0 ml Stool Total 200 ml 1500 ml Hemodialysis UF 2000 ml Labs Test 07/03/19 15:28 07/04/19 03:35 07/04/19 09:00 07/05/19 04:00 Arterial Blood pH 7.542 (7.350-7.450) Arterial Blood Partial Pressure CO2 25.4 mmHg (35.0-45.0) Arterial Blood Partial Pressure O2 116.2 mmHg (75.0-100.0) Arterial Blood HCO3 21.3 mmol/L (22.0-26.0) Arterial Blood Oxygen Saturation 98.6 % (95-100) Arterial Blood Base Excess -0.6 (-2-2) Dave Test Positive White Blood Count 19.5 K/UL (4.8-10.8) 27.4 K/UL (4.8-10.8) Red Blood Count 2.44 M/UL (4.70-6.10) 2.42 M/UL (4.70-6.10) Hemoglobin 7.8 G/DL (14.2-18.0) 7.8 G/DL (14.2-18.0) Hematocrit 23.9 % (42.0-52.0) 23.8 % (42.0-52.0) Mean Corpuscular Volume 98 FL (80-99) 98 FL (80-99) Mean Corpuscular Hemoglobin 31.9 PG (27.0-31.0) 32.3 PG (27.0-31.0) Mean Corpuscular Hemoglobin Concent 32.4 G/DL (32.0-36.0) 32.9 G/DL (32.0-36.0) Red Cell Distribution Width 24.8 % (11.6-14.8) 24.6 % (11.6-14.8) Platelet Count 147 K/UL (150-450) 176 K/UL (150-450) Mean Platelet Volume 8.8 FL (6.5-10.1) 8.0 FL (6.5-10.1) Neutrophils (%) (Auto) % (45.0-75.0) % (45.0-75.0) Lymphocytes (%) (Auto) % (20.0-45.0) % (20.0-45.0) Monocytes (%) (Auto) % (1.0-10.0) % (1.0-10.0) Eosinophils (%) (Auto) % (0.0-3.0) % (0.0-3.0) Basophils (%) (Auto) % (0.0-2.0) % (0.0-2.0) Differential Total Cells Counted 100 100 Neutrophils % (Manual) 74 % (45-75) 81 % (45-75) Lymphocytes % (Manual) 10 % (20-45) 8 % (20-45) Monocytes % (Manual) 9 % (1-10) 5 % (1-10) Eosinophils % (Manual) 1 % (0-3) 0 % (0-3) Basophils % (Manual) 0 % (0-2) 0 % (0-2) Band Neutrophils 6 % (0-8) 6 % (0-8) Nucleated Red Blood Cells 2 /100 WBC 2 /100 WBC Platelet Estimate Decreased Adequate Platelet Morphology Normal Normal Polychromasia 1+ 1+ Hypochromasia 1+ 3+ Anisocytosis 3+ 3+ Prothrombin Time 18.5 SEC (9.30-11.50) Prothromb Time International Ratio 1.8 (0.9-1.1) Activated Partial Thromboplast Time 37 SEC (23-33) Sodium Level 151 MMOL/L (136-145) 153 MMOL/L (136-145) Potassium Level 3.0 MMOL/L (3.5-5.1) 2.7 MMOL/L (3.5-5.1) Chloride Level 115 MMOL/L (98-107) 117 MMOL/L (98-107) Carbon Dioxide Level 22 MMOL/L (21-32) 19 MMOL/L (21-32) Anion Gap 14 mmol/L (5-15) 17 mmol/L (5-15) Blood Urea Nitrogen 48 mg/dL (7-18) 62 mg/dL (7-18) Creatinine 5.8 MG/DL (0.55-1.30) 7.4 MG/DL (0.55-1.30) Estimat Glomerular Filtration Rate 10.9 mL/min (>60) 8.3 mL/min (>60) Glucose Level 150 MG/DL (74-106) 162 MG/DL (74-106) Calcium Level 7.6 MG/DL (8.5-10.1) 7.9 MG/DL (8.5-10.1) Phosphorus Level 3.9 MG/DL (2.5-4.9) 3.4 MG/DL (2.5-4.9) Magnesium Level 2.0 MG/DL (1.8-2.4) Total Bilirubin 31.8 MG/DL (0.2-1.0) 33.0 MG/DL (0.2-1.0) Direct Bilirubin 26.2 MG/DL (0.0-0.3) 26.5 MG/DL (0.0-0.3) Aspartate Amino Transf (AST/SGOT) 145 U/L (15-37) 144 U/L (15-37) Alanine Aminotransferase (ALT/SGPT) 121 U/L (12-78) 21 U/L (12-78) Alkaline Phosphatase 140 U/L (46-116) 264 U/L (46-116) Total Protein 4.8 G/DL (6.4-8.2) 4.9 G/DL (6.4-8.2) Albumin 1.5 G/DL (3.4-5.0) 1.5 G/DL (3.4-5.0) Globulin 3.3 g/dL 3.4 g/dL Ammonia 45 umol/L (11-32) Spherocytes 1+ Albumin/Globulin Ratio 0.4 (1.0-2.7) Test 07/06/19 04:00 07/06/19 07:20 07/06/19 11:20 07/06/19 12:34 White Blood Count 33.6 K/UL (4.8-10.8) Red Blood Count 2.44 M/UL (4.70-6.10) Hemoglobin 7.6 G/DL (14.2-18.0) Hematocrit 24.6 % (42.0-52.0) Mean Corpuscular Volume 101 FL (80-99) Mean Corpuscular Hemoglobin 31.3 PG (27.0-31.0) Mean Corpuscular Hemoglobin Concent 31.1 G/DL (32.0-36.0) Red Cell Distribution Width 24.8 % (11.6-14.8) Platelet Count 182 K/UL (150-450) Mean Platelet Volume 9.0 FL (6.5-10.1) Neutrophils (%) (Auto) % (45.0-75.0) Lymphocytes (%) (Auto) % (20.0-45.0) Monocytes (%) (Auto) % (1.0-10.0) Eosinophils (%) (Auto) % (0.0-3.0) Basophils (%) (Auto) % (0.0-2.0) Differential Total Cells Counted 100 Neutrophils % (Manual) 69 % (45-75) Lymphocytes % (Manual) 5 % (20-45) Monocytes % (Manual) 6 % (1-10) Eosinophils % (Manual) 0 % (0-3) Basophils % (Manual) 0 % (0-2) Myelocytes % 1 % (0-0) Band Neutrophils 19 % (0-8) Nucleated Red Blood Cells 2 /100 WBC Platelet Estimate Adequate Platelet Morphology Normal Polychromasia 1+ Hypochromasia 2+ Anisocytosis 3+ Macrocytosis 1+ Sodium Level 152 MMOL/L (136-145) Potassium Level 2.8 MMOL/L (3.5-5.1) Chloride Level 114 MMOL/L (98-107) Carbon Dioxide Level 22 MMOL/L (21-32) Anion Gap 16 mmol/L (5-15) Blood Urea Nitrogen 51 mg/dL (7-18) Creatinine 6.9 MG/DL (0.55-1.30) Estimat Glomerular Filtration Rate 9.0 mL/min (>60) Glucose Level 159 MG/DL (74-106) Uric Acid 9.4 MG/DL (2.6-7.2) Calcium Level 8.1 MG/DL (8.5-10.1) Phosphorus Level 4.0 MG/DL (2.5-4.9) Magnesium Level 2.2 MG/DL (1.8-2.4) Total Bilirubin 34.6 MG/DL (0.2-1.0) Direct Bilirubin 28.0 MG/DL (0.0-0.3) Gamma Glutamyl Transpeptidase 187 U/L (5-85) Aspartate Amino Transf (AST/SGOT) 142 U/L (15-37) Alanine Aminotransferase (ALT/SGPT) 21 U/L (12-78) Alkaline Phosphatase 255 U/L (46-116) C-Reactive Protein, Quantitative 14.6 mg/dL (0.00-0.90) Pro-B-Type Natriuretic Peptide 3085 pg/mL (0-125) Total Protein 5.1 G/DL (6.4-8.2) Albumin 1.6 G/DL (3.4-5.0) Globulin 3.5 g/dL Albumin/Globulin Ratio 0.5 (1.0-2.7) Lactic Acid Level 2.10 mmol/L (0.4-2.0) 2.00 mmol/L (0.66-2.22) Ammonia 58 umol/L (11-32) Arterial Blood pH 7.406 (7.350-7.450) Arterial Blood Partial Pressure CO2 31.3 mmHg (35.0-45.0) Arterial Blood Partial Pressure O2 60.4 mmHg (75.0-100.0) Arterial Blood HCO3 19.2 mmol/L (22.0-26.0) Arterial Blood Oxygen Saturation 89.0 % (95-100) Arterial Blood Base Excess -4.9 (-2-2) Dave Test Positive Test 07/06/19 14:55 Arterial Blood pH 7.410 (7.350-7.450) Arterial Blood Partial Pressure CO2 29.6 mmHg (35.0-45.0) Arterial Blood Partial Pressure O2 82.7 mmHg (75.0-100.0) Arterial Blood HCO3 18.3 mmol/L (22.0-26.0) Arterial Blood Oxygen Saturation 95.6 % (95-100) Arterial Blood Base Excess -5.5 (-2-2) Dave Test Positive Height (Feet): 5 Height (Inches): 9.00 Weight (Pounds): 225 Objective Physical Exam: Vitals: reviewed General Appearance: NAD HEENT: normocephalic, atraumatic ++ icterus jaundice, ng+ Neck: non-tender, normal alignment Respiratory/Chest: normal breath sounds bilaterally++ nc, BIPAP+ Cardiovascular/Chest: normal peripheral pulses, normal rate Abdomen: normal bowel sounds, soft,+ peg Extremities: normal range of motion Marty Kebede MD Jul 06, 2019 15:25
--- NOTE | 2019-07-06 15:37 | Pulmonolgy Critical Care Note ---
Critical Care - Asmt/Plan Assessment/Plan: Pulmonary CCM Progress Note HPI This is a 39-year-old male who is an alcoholic with significant fatty liver on abdominal CT and alcoholic hepatitis, liver failure c/b multiorgan failure. He has been drinking heavily for 3 months straight, having stopped drinking [employer]. Noted to have Hepatic Encephalopathy and Hepatorenal Syndrome. No bleeding. Noted to have significant hypokalemia and acidosis, now on HD, evidence of sepsis, source unclear - some bacteria in urine, mild ascites - possible SBP, dilated Gallbladder, s/p Paracentesis On NC, BiPAP PRN, NGT, on Lactulose On Hemodialysis for worsening acidosis, uremia Remains confused BP stable, Midodrine, PRN levophed to maintain BP Allergies: No Known Allergies Past Medical History: Alcohol abuse All Other Systems: negative except mentioned in HPI Physical Exam Vital Signs Noted General Appearance: Jaundiced, awake Head: normocephalic, atraumatic, HD catheter Eyes: bilateral eye PERRL, bilateral eye EOMI, bilateral eye scleral icterus ENT: moist mm Neck: no masses, no LN Respiratory: chest non-tender, lungs clear, normal breath sounds Cardiovascular: regular rate, rhythm, Normal HS1, HS2, no murmur, tachycardia Gastrointestinal: Obese, hepatomegaly, some tenderness RUQ, normal bowel sounds , no mass, no rebound Musculoskeletal: moves all limbs Neurologic: responds to commands, awake Skin: jaundiced, moderate edema Impression: Acute alcoholic intoxication Severe Sepsis Alcoholic Hepatitis Possible Cirrhosis Hepatorenal syndrome - worsening renal function - on HD Multiorgan Failure Extremelt poor prognosis Possible Portal Hypertension Hypernatremia Pancreatitis, alcoholic, acute Anemia Plan ICU management NPO except meds/NGT feeds IV antibiotics per ID Aspiration precautions BiPAP PRN NC O2 GI/Renal following HD per Nephrology Pressors PRN Transfuse PRN Thiamine Monitor labs Adjust FIO2 - sats 90-96% Patient has extremely poor prognosis Labs: noted EKG: Rate: tachycardiac Rhythm: NSR ST Segments: other - NSST changes Chest X-Ray: hypoventilatory exam, no consolidation, no effusion, no pneumothorax, no acute cardiopulmonary disease CT abdomen pelvis: Severely enlarged liver and fatty liver. Mild ascites. Critical Care - Objective Last 24 Hour Vital Signs Date Time Temp Pulse Resp B/P (MAP) Pulse Ox O2 Delivery O2 Flow Rate FiO2 9/13/19 15:11 78 16 94 Full Face 28 07/06/19 15:00 78 16 119/58 (78) 100 07/06/19 14:53 119/58 07/06/19 14:00 85 18 132/69 (90) 100 07/06/19 13:00 91 25 96/52 (67) 99 07/06/19 12:55 28 07/06/19 12:55 89 31 99 Full Face 28 07/06/19 12:00 98.2 88 27 97/67 (77) 96 07/06/19 12:00 85 07/06/19 12:00 Bi-pap 07/06/19 11:17 78 20 100 Room Air 21 77 21 97 07/06/19 11:00 81 25 118/54 (75) 98 07/06/19 10:00 81 17 109/52 (71) 100 07/06/19 09:52 83 17 100 07/06/19 09:30 83 19 100 07/06/19 09:00 86 20 123/64 (83) 100 07/06/19 08:00 28 07/06/19 08:00 91 07/06/19 08:00 99.3 88 23 123/54 (77) 100 07/06/19 08:00 Bi-pap 07/06/19 07:15 85 30 98 Bi-Pap 28 92 30 97 07/06/19 07:03 92 30 97 Full Face 28 07/06/19 07:03 97 Bi-Pap 28 07/06/19 07:00 89 27 116/59 (78) 98 07/06/19 06:00 88 19 107/54 (71) 99 07/06/19 05:17 89 35 99 Full Face 28 07/06/19 05:00 89 24 109/59 (76) 98 07/06/19 04:00 91 07/06/19 04:00 Nasal Cannula 2.0 07/06/19 04:00 28 07/06/19 04:00 99.0 89 23 112/58 (76) 99 07/06/19 03:10 84 24 100 Bi-Pap 28 85 25 100 07/06/19 03:00 86 20 115/56 (75) 100 07/06/19 02:58 85 25 100 Full Face 28 07/06/19 02:00 84 20 78/35 (49) 100 07/06/19 01:30 88 21 116/55 (75) 97 07/06/19 01:00 90 20 116/51 (72) 98 07/06/19 00:59 91 23 100 Full Face 28 07/06/19 00:00 28 07/06/19 00:00 98.8 93 21 117/53 (74) 99 07/06/19 00:00 89 07/06/19 00:00 117/53 07/06/19 00:00 Nasal Cannula 2.0 07/05/19 23:30 97 21 129/57 (81) 98 07/05/19 23:00 100 21 134/61 (85) 92 07/05/19 23:00 28 07/05/19 23:00 127/57 07/05/19 22:51 96 30 98 Full Face 28 07/05/19 22:48 97 27 100 Nasal Cannula 2.0 28 91 28 100 07/05/19 22:30 92 27 106/48 (67) 100 07/05/19 22:00 119/51 07/05/19 22:00 100.9 98 27 119/51 (73) 100 07/05/19 21:30 102 29 118/63 (81) 98 07/05/19 21:00 102 31 80/40 (53) 96 07/05/19 21:00 118/63 07/05/19 20:30 105 30 101/52 (68) 95 07/05/19 20:00 2.0 07/05/19 20:00 103.1 107 31 101/46 (64) 93 07/05/19 20:00 Nasal Cannula 2.0 07/05/19 20:00 91/50 07/05/19 20:00 101 07/05/19 19:30 103 28 95/45 (62) 95 07/05/19 19:17 106 30 98 Nasal Cannula 2.0 28 102 28 95 07/05/19 19:07 95 Nasal Cannula 2.0 28 07/05/19 19:00 89/46 07/05/19 19:00 101 30 95/41 (59) 95 07/05/19 18:00 100/44 07/05/19 18:00 103 24 100/44 (62) 95 07/05/19 17:45 106 28 100/45 (63) 96 07/05/19 17:30 106 30 101/51 (68) 95 07/05/19 17:15 108 28 97/41 (59) 95 07/05/19 17:00 108 30 94/40 (58) 95 07/05/19 17:00 94/40 07/05/19 16:45 108 30 101/40 (60) 94 07/05/19 16:30 111 29 100/44 (62) 93 07/05/19 16:15 111 32 102/42 (62) 94 07/05/19 16:00 99.6 110 28 115/42 (66) 94 07/05/19 16:00 95/38 07/05/19 16:00 Nasal Cannula 2.0 07/05/19 16:00 112 07/05/19 15:45 121 35 115/42 (66) 93 Critical Care - Subjective ROS Limited/Unobtainable: No FI02: 28 Vent Support Mode: BiLevel Sputum Amount: None Tube Feeding Amount: 45 I&O: Intake and Output 07/05/19 07/06/19 19:00 07:00 Intake Total 1509.554 ml 625.956 ml Output Total 2205 ml 1500 ml Balance -695.446 ml -874.044 ml Free Water 240 ml 60 ml IV Total 729.554 ml 25.956 ml Tube Feeding 540 ml 540 ml Output Urine Total 5 ml 0 ml Stool Total 200 ml 1500 ml Hemodialysis UF 2000 ml Quang Domingo MD Jul 06, 2019 15:36
[2019-07-06] MEDS ORDERED: Sterile Water Irrig 1000ml IRRIG ONE (15:52)
[2019-07-06] MEDS ORDERED: Tubing IV Secondary IV ONE (15:52)
[2019-07-06] MEDS ORDERED: NS 275ml ONE (15:52)
--- NOTE | 2019-07-06 16:03 | Brief Operative Note ---
Immediate Post Operative Note Operative Note Pre-op Diagnosis: ascites Procedure: paracentesis Post-op Diagnosis: same as pre-op Surgeon: Ivan Stevens Specimen: none Complications: none Fluids: none Implant(s) used?: No Jef Stevens MD Jul 06, 2019 16:03
--- NOTE | 2019-07-06 16:10 | Diagnostic Imaging Report ---
Indications: Ascites Technique: Ultrasound used to localize optimal puncture site. Sterile prepping and draping right lower quadrant. Local anesthesia with 1% lidocaine. Under real-time ultrasound guidance, puncture peritoneal space using paracentesis needle. Stylet removed. Catheter placed to vacuum bottle suction. Total 0.3 liters of fluid aspirated. Patient tolerated procedure well, without immediate complication. Findings: Followup sonography demonstrates complete resolution of peritoneal fluid. Impression: Successful ultrasound-guided paracentesis, yielding 0.3 liters of fluid
[2019-07-06] MEDS: Dyna-Hex 2% Top Sol 2oz TOPIC SCH (20:30)
[2019-07-06] MEDS: Epoetin Alfa-EPBX(ESRD on dialysis)2000 units/ml vial SUBQ SCH (20:31)
[2019-07-06] MEDS: Epoetin Alfa-EPBX(ESRD on dialysis)3000 units/ml vial SUBQ SCH (20:31)
--- NOTE | 2019-07-06 21:18 | General Progress Note ---
Assessment/Plan Problem List: (1) Anemia ICD Codes: D64.9 - Anemia, unspecified SNOMED: 393410442 Qualifiers: Qualified Codes: D64.9 - Anemia, unspecified (2) Acute alcoholic intoxication ICD Codes: F10.929 - Alcohol use, unspecified with intoxication, unspecified SNOMED: 69672174, 0963485 Qualifiers: Qualified Codes: F10.920 - Alcohol use, unspecified with intoxication, uncomplicated (3) End-stage liver disease ICD Codes: K72.90 - Hepatic failure, unspecified without coma SNOMED: 453571035 (4) Hepatorenal syndrome ICD Codes: K76.7 - Hepatorenal syndrome SNOMED: 52382233, 1395106 (5) Pancreatitis, alcoholic, acute ICD Codes: K85.20 - Alcohol induced acute pancreatitis without necrosis or infection SNOMED: 117264063, 1092653 Qualifiers: Qualified Codes: K85.20 - Alcohol induced acute pancreatitis without necrosis or infection (6) Respiratory failure ICD Codes: J96.90 - Respiratory failure, unspecified, unspecified whether with hypoxia or hypercapnia SNOMED: 914666194 Status: progressing, not improved, unchanged Assessment/Plan: hepatorenal syndrome] etoh cirhossis favor comfort care elevated lft \very poor prognosis s/p paracentesis not improving moniter for bleeding Subjective ROS Limited/Unobtainable: Yes Allergies: Coded Allergies: No Known Allergies (Unverified , 06/20/19) Objective Last 24 Hour Vital Signs Date Time Temp Pulse Resp B/P (MAP) Pulse Ox O2 Delivery O2 Flow Rate FiO2 07/06/19 20:51 81 23 98 Full Face 28 07/06/19 20:00 85 07/06/19 20:00 98.0 83 20 113/48 (69) 100 07/06/19 20:00 Bi-pap 07/06/19 19:15 84 19 100 Bi-Pap 28 07/06/19 19:05 86 26 100 07/06/19 19:04 100 Bi-Pap 28 07/06/19 19:04 85 17 100 Full Face 28 07/06/19 19:00 85 20 92/59 (70) 100 07/06/19 18:00 85 19 107/53 (71) 99 07/06/19 17:00 87 25 123/58 (79) 97 07/06/19 16:55 85 23 97 Full Face 28 07/06/19 16:30 Bi-pap 07/06/19 16:00 79 07/06/19 16:00 98.1 86 22 101/57 (72) 97 07/06/19 15:21 82 18 100 Room Air 21 78 16 94 07/06/19 15:11 78 16 94 Full Face 28 07/06/19 15:00 78 16 119/58 (78) 100 07/06/19 14:53 119/58 07/06/19 14:00 85 18 132/69 (90) 100 07/06/19 13:00 91 25 96/52 (67) 99 07/06/19 12:55 28 07/06/19 12:55 89 31 99 Full Face 28 07/06/19 12:00 98.2 88 27 97/67 (77) 96 07/06/19 12:00 85 07/06/19 12:00 Room Air 07/06/19 11:17 78 20 100 Room Air 21 77 21 97 07/06/19 11:00 81 25 118/54 (75) 98 07/06/19 10:00 81 17 109/52 (71) 100 07/06/19 09:52 83 17 100 07/06/19 09:30 83 19 100 07/06/19 09:00 86 20 123/64 (83) 100 07/06/19 08:00 28 07/06/19 08:00 91 07/06/19 08:00 99.3 88 23 123/54 (77) 100 07/06/19 08:00 Bi-pap 07/06/19 07:15 85 30 98 Bi-Pap 28 92 30 97 07/06/19 07:03 92 30 97 Full Face 28 07/06/19 07:03 97 Bi-Pap 28 07/06/19 07:00 89 27 116/59 (78) 98 07/06/19 06:00 88 19 107/54 (71) 99 07/06/19 05:17 89 35 99 Full Face 28 07/06/19 05:00 89 24 109/59 (76) 98 07/06/19 04:00 91 07/06/19 04:00 Nasal Cannula 2.0 07/06/19 04:00 28 07/06/19 04:00 99.0 89 23 112/58 (76) 99 07/06/19 03:10 84 24 100 Bi-Pap 28 85 25 100 07/06/19 03:00 86 20 115/56 (75) 100 07/06/19 02:58 85 25 100 Full Face 28 07/06/19 02:00 84 20 78/35 (49) 100 07/06/19 01:30 88 21 116/55 (75) 97 07/06/19 01:00 90 20 116/51 (72) 98 07/06/19 00:59 91 23 100 Full Face 28 07/06/19 00:00 28 07/06/19 00:00 98.8 93 21 117/53 (74) 99 07/06/19 00:00 89 07/06/19 00:00 117/53 07/06/19 00:00 Nasal Cannula 2.0 07/05/19 23:30 97 21 129/57 (81) 98 07/05/19 23:00 100 21 134/61 (85) 92 07/05/19 23:00 28 07/05/19 23:00 127/57 07/05/19 22:51 96 30 98 Full Face 28 07/05/19 22:48 97 27 100 Nasal Cannula 2.0 28 91 28 100 07/05/19 22:30 92 27 106/48 (67) 100 07/05/19 22:00 119/51 07/05/19 22:00 100.9 98 27 119/51 (73) 100 07/05/19 21:30 102 29 118/63 (81) 98 Intake and Output 07/05/19 07/06/19 19:00 07:00 Intake Total 1509.554 ml 625.956 ml Output Total 2205 ml 1500 ml Balance -695.446 ml -874.044 ml Free Water 240 ml 60 ml IV Total 729.554 ml 25.956 ml Tube Feeding 540 ml 540 ml Output Urine Total 5 ml 0 ml Stool Total 200 ml 1500 ml Hemodialysis UF 2000 ml Laboratory Tests 07/06/19 04:00: White Blood Count 33.6*H, Red Blood Count 2.44L, Hemoglobin 7.6L, Hematocrit 24.6L, Mean Corpuscular Volume 101H, Mean Corpuscular Hemoglobin 31.3H, Mean Corpuscular Hemoglobin Concent 31.1L, Red Cell Distribution Width 24.8H, Platelet Count 182, Mean Platelet Volume 9.0, Neutrophils (%) (Auto) , Lymphocytes (%) (Auto) , Monocytes (%) (Auto) , Eosinophils (%) (Auto) , Basophils (%) (Auto) , Differential Total Cells Counted 100, Neutrophils % ( Manual) 69, Lymphocytes % (Manual) 5L, Monocytes % (Manual) 6, Eosinophils % ( Manual) 0, Basophils % (Manual) 0, Myelocytes % 1H, Band Neutrophils 19H, Nucleated Red Blood Cells 2, Platelet Estimate Adequate, Platelet Morphology Normal, Polychromasia 1+, Hypochromasia 2+, Anisocytosis 3+, Macrocytosis 1+, Sodium Level 152H, Potassium Level 2.8L, Chloride Level 114H, Carbon Dioxide Level 22, Anion Gap 16H, Blood Urea Nitrogen 51H, Creatinine 6.9H, Estimat Glomerular Filtration Rate 9.0, Glucose Level 159H, Uric Acid 9.4H, Calcium Level 8.1L, Phosphorus Level 4.0, Magnesium Level 2.2, Total Bilirubin 34.6H, Direct Bilirubin 28.0H, Gamma Glutamyl Transpeptidase 187H, Aspartate Amino Transf (AST/SGOT) 142H, Alanine Aminotransferase (ALT/SGPT) 21, Alkaline Phosphatase 255H, C-Reactive Protein, Quantitative 14.6H, Pro-B-Type Natriuretic Peptide 3085H, Total Protein 5.1L, Albumin 1.6L, Globulin 3.5, Albumin/Globulin Ratio 0.5L 07/06/19 07:20: Lactic Acid Level 2.10H, Ammonia 58H 07/06/19 11:20: Lactic Acid Level 2.00 07/06/19 12:34: Arterial Blood pH 7.406, Arterial Blood Partial Pressure CO2 31.3L, Arterial Blood Partial Pressure O2 60.4L, Arterial Blood HCO3 19.2L, Arterial Blood Oxygen Saturation 89.0*L, Arterial Blood Base Excess -4.9L, Dave Test Positive 07/06/19 14:55: Arterial Blood pH 7.410, Arterial Blood Partial Pressure CO2 29.6L, Arterial Blood Partial Pressure O2 82.7, Arterial Blood HCO3 18.3L, Arterial Blood Oxygen Saturation 95.6, Arterial Blood Base Excess -5.5L, Dave Test Positive 07/06/19 15:43: Random Vancomycin Level 18.1 Height (Feet): 5 Height (Inches): 9.00 Weight (Pounds): 225 Cardiovascular: normal rate Respiratory/Chest: lungs clear Abdomen: soft Deejay Saldaña MD Jul 06, 2019 21:18
[2019-07-07] VITALS (24 sets, daily range): BP systolic 85–123; BP diastolic 35–61
[2019-07-07] MEDS: Albuterol/Ipratropium 3ml neb HHN SCH ×6 (03:07→22:44)
[2019-07-07 05:38] LABS: AMMONIA 59 umol/L (11-32); HEMATOCRIT 24.2 % (42.0-52.0); HEMOGLOBIN 7.4 G/DL (14.2-18.0); MEAN CORPUSCULAR VOLUME 101 FL (80-99); PLATELET COUNT 166 K/UL (150-450); RED CELL DISTRIBUTION WIDTH 24.6 % (11.6-14.8)
[2019-07-07 05:57] LABS: ALANINE AMINOTRANSFERASE 18 U/L (12-78); ALBUMIN 1.6 G/DL (3.4-5.0); ALBUMIN/GLOBULIN RATIO 0.5 (1.0-2.7); ALKALINE PHOSPHATASE 247 U/L (46-116); ANION GAP 17 mmol/L (5-15); ASPARTATE AMINO TRANSFERASE 119 U/L (15-37); BILIRUBIN,TOTAL 35.4 MG/DL (0.2-1.0); BLOOD UREA NITROGEN 66 mg/dL (7-18); CALCIUM 8.4 MG/DL (8.5-10.1); CARBON DIOXIDE 21 MMOL/L (21-32); CHLORIDE 117 MMOL/L (98-107); CREATININE 8.1 MG/DL (0.55-1.30); SODIUM 155 MMOL/L (136-145)
[2019-07-07 06:04] LABS: BILIRUBIN,DIRECT 28.9 MG/DL (0.0-0.3)
--- NOTE | 2019-07-07 07:43 | General Progress Note ---
Assessment/Plan Problem List: (1) Pancreatitis, alcoholic, acute ICD Codes: K85.20 - Alcohol induced acute pancreatitis without necrosis or infection SNOMED: 222774675, 1925202 Qualifiers: Qualified Codes: K85.20 - Alcohol induced acute pancreatitis without necrosis or infection (2) Acute alcoholic intoxication ICD Codes: F10.929 - Alcohol use, unspecified with intoxication, unspecified SNOMED: 24601177, 2386845 Qualifiers: Qualified Codes: F10.920 - Alcohol use, unspecified with intoxication, uncomplicated (3) Anemia ICD Codes: D64.9 - Anemia, unspecified SNOMED: 028402580 Qualifiers: Qualified Codes: D64.9 - Anemia, unspecified Status: progressing, not improved, unchanged Assessment/Plan: discriminant factor of 16 NGTF repeat labs fu nephrology cont lactulose xifaxan prn paracentesis poor prognosis Subjective ROS Limited/Unobtainable: No Allergies: Coded Allergies: No Known Allergies (Unverified , 06/20/19) Objective Last 24 Hour Vital Signs Date Time Temp Pulse Resp B/P (MAP) Pulse Ox O2 Delivery O2 Flow Rate FiO2 07/07/19 07:24 100 Bi-Pap 28 07/07/19 07:00 84 17 104/55 (71) 99 07/07/19 06:55 82 24 10 Full Face 28 07/07/19 06:00 73 19 110/48 (68) 97 07/07/19 05:13 74 17 100 Full Face 28 07/07/19 05:00 78 15 116/48 (70) 100 07/07/19 04:00 98.0 81 18 123/46 (71) 100 07/07/19 04:00 Bi-pap 07/07/19 04:00 88 07/07/19 03:17 85 19 100 Bi-Pap 28 07/07/19 03:07 84 25 99 Full Face 28 07/07/19 03:07 84 25 99 07/07/19 03:00 84 29 110/46 (67) 98 07/07/19 02:00 82 24 109/44 (65) 98 07/07/19 01:00 79 19 109/53 (71) 99 07/07/19 00:57 79 17 99 Full Face 28 07/07/19 00:00 Bi-pap 07/07/19 00:00 98.0 83 20 119/51 (73) 100 07/06/19 23:19 85 19 100 Bi-Pap 28 07/06/19 23:09 88 30 100 07/06/19 23:09 88 30 100 Full Face 28 07/06/19 23:00 90 23 119/49 (72) 100 07/06/19 22:00 85 26 102/44 (63) 98 07/06/19 21:00 83 23 113/48 (69) 99 07/06/19 20:51 81 23 98 Full Face 28 07/06/19 20:00 85 07/06/19 20:00 98.0 83 20 113/48 (69) 100 07/06/19 20:00 Bi-pap 07/06/19 19:15 84 19 100 Bi-Pap 28 07/06/19 19:05 86 26 100 07/06/19 19:04 100 Bi-Pap 28 07/06/19 19:04 85 17 100 Full Face 28 07/06/19 19:00 85 20 92/59 (70) 100 07/06/19 18:00 85 19 107/53 (71) 99 07/06/19 17:00 87 25 123/58 (79) 97 07/06/19 16:55 85 23 97 Full Face 28 07/06/19 16:30 Bi-pap 07/06/19 16:00 79 07/06/19 16:00 98.1 86 22 101/57 (72) 97 07/06/19 15:21 82 18 100 Room Air 21 78 16 94 07/06/19 15:11 78 16 94 Full Face 28 07/06/19 15:00 78 16 119/58 (78) 100 07/06/19 14:53 119/58 07/06/19 14:00 85 18 132/69 (90) 100 07/06/19 13:00 91 25 96/52 (67) 99 07/06/19 12:55 28 07/06/19 12:55 89 31 99 Full Face 28 07/06/19 12:00 98.2 88 27 97/67 (77) 96 07/06/19 12:00 85 07/06/19 12:00 Room Air 07/06/19 11:17 78 20 100 Room Air 21 77 21 97 07/06/19 11:00 81 25 118/54 (75) 98 07/06/19 10:00 81 17 109/52 (71) 100 07/06/19 09:52 83 17 100 07/06/19 09:30 83 19 100 07/06/19 09:00 86 20 123/64 (83) 100 07/06/19 08:00 28 07/06/19 08:00 91 07/06/19 08:00 99.3 88 23 123/54 (77) 100 07/06/19 08:00 Bi-pap Intake and Output 07/06/19 07/07/19 19:00 07:00 Intake Total 1435 ml 640 ml Output Total 1250 ml 1300 ml Balance 185 ml -660 ml Free Water 200 ml 100 ml IV Total 655 ml Tube Feeding 540 ml 540 ml Other 40 ml Output Urine Total 0 ml 0 ml Stool Total 950 ml 1300 ml Other 300 ml Laboratory Tests 07/06/19 11:20: Lactic Acid Level 2.00 07/06/19 12:34: Arterial Blood pH 7.406, Arterial Blood Partial Pressure CO2 31.3L, Arterial Blood Partial Pressure O2 60.4L, Arterial Blood HCO3 19.2L, Arterial Blood Oxygen Saturation 89.0*L, Arterial Blood Base Excess -4.9L, Dave Test Positive 07/06/19 14:55: Arterial Blood pH 7.410, Arterial Blood Partial Pressure CO2 29.6L, Arterial Blood Partial Pressure O2 82.7, Arterial Blood HCO3 18.3L, Arterial Blood Oxygen Saturation 95.6, Arterial Blood Base Excess -5.5L, Dave Test Positive 07/06/19 15:43: Random Vancomycin Level 18.1 07/07/19 04:28: White Blood Count 32.0*H, Red Blood Count 2.40L, Hemoglobin 7.4L, Hematocrit 24.2L, Mean Corpuscular Volume 101H, Mean Corpuscular Hemoglobin 31.1H, Mean Corpuscular Hemoglobin Concent 30.8L, Red Cell Distribution Width 24.6H, Platelet Count 166, Mean Platelet Volume 8.3, Neutrophils (%) (Auto) , Lymphocytes (%) (Auto) , Monocytes (%) (Auto) , Eosinophils (%) (Auto) , Basophils (%) (Auto) , Neutrophils % (Manual) [Pending], Lymphocytes % (Manual) [Pending], Platelet Estimate [Pending], Platelet Morphology [Pending], Sodium Level 155H, Potassium Level 3.0L, Chloride Level 117H, Carbon Dioxide Level 21, Anion Gap 17H, Blood Urea Nitrogen 66H, Creatinine 8.1H, Estimat Glomerular Filtration Rate 7.4, Glucose Level 155H, Calcium Level 8.4L, Total Bilirubin 35.4H, Direct Bilirubin 28.9H, Aspartate Amino Transf (AST/SGOT) 119H, Alanine Aminotransferase (ALT/SGPT) 18, Alkaline Phosphatase 247H, Ammonia 59H, Total Protein 5.0L, Albumin 1.6L, Globulin 3.4, Albumin/Globulin Ratio 0.5L Height (Feet): 5 Height (Inches): 9.00 Weight (Pounds): 225 General Appearance: lethargic EENT: scleral icterus Cardiovascular: normal peripheral pulses, normal rate, regular rhythm Abdomen: normal bowel sounds, non tender, soft Extremities: non-tender Merlin Esposito MD Jul 07, 2019 07:43
[2019-07-07] MEDS: Lactulose 20gm/30ml UDC NG SCH ×4 (09:04→20:35)
[2019-07-07] MEDS: Pantoprazole Inj IVP SCH ×2 (09:04→20:35)
--- NOTE | 2019-07-07 09:53 | Nephrology Progress Note ---
Assessment/Plan Status: progressing, not improved, unchanged Assessment/Plan: A/P 1) MARCO- HRS 2, rapid decline of renal function - family to decide on comfort/DNR today - futile care - just completed HD this am, hypotensive 2) ESLD- alcohol - per GI mgmt - ESLD, consider hospice 3) Hypernatremia- 1/2 NS fluid bolus 4) Hypotension- fluid bolus Subjective Date patient seen: Jul 07, 2019 Time patient seen: 09:50 ROS Limited/Unobtainable: Yes Allergies: Coded Allergies: No Known Allergies (Unverified , 06/20/19) Subjective Patient remains critically ill. Family to decide on hospice Objective Last 24 Hour Vital Signs Date Time Temp Pulse Resp B/P (MAP) Pulse Ox O2 Delivery O2 Flow Rate FiO2 07/07/19 09:06 79 21 100 Full Face 28 07/07/19 08:00 97.8 87 18 90/40 (57) 100 07/07/19 08:00 Bi-pap 07/07/19 07:24 100 Bi-Pap 28 07/07/19 07:00 84 17 104/55 (71) 99 07/07/19 06:55 82 24 100 Full Face 28 07/07/19 06:00 73 19 110/48 (68) 97 07/07/19 05:13 74 17 100 Full Face 28 07/07/19 05:00 78 15 116/48 (70) 100 07/07/19 04:00 98.0 81 18 123/46 (71) 100 07/07/19 04:00 Bi-pap 07/07/19 04:00 88 07/07/19 03:17 85 19 100 Bi-Pap 28 07/07/19 03:07 84 25 99 Full Face 28 07/07/19 03:07 84 25 99 07/07/19 03:00 84 29 110/46 (67) 98 07/07/19 02:00 82 24 109/44 (65) 98 07/07/19 01:00 79 19 109/53 (71) 99 07/07/19 00:57 79 17 99 Full Face 28 07/07/19 00:00 Bi-pap 07/07/19 00:00 98.0 83 20 119/51 (73) 100 07/06/19 23:19 85 19 100 Bi-Pap 28 07/06/19 23:09 88 30 100 07/06/19 23:09 88 30 100 Full Face 28 07/06/19 23:00 90 23 119/49 (72) 100 07/06/19 22:00 85 26 102/44 (63) 98 07/06/19 21:00 83 23 113/48 (69) 99 07/06/19 20:51 81 23 98 Full Face 28 07/06/19 20:00 85 07/06/19 20:00 98.0 83 20 113/48 (69) 100 07/06/19 20:00 Bi-pap 07/06/19 19:15 84 19 100 Bi-Pap 28 07/06/19 19:05 86 26 100 07/06/19 19:04 100 Bi-Pap 28 07/06/19 19:04 85 17 100 Full Face 28 07/06/19 19:00 85 20 92/59 (70) 100 07/06/19 18:00 85 19 107/53 (71) 99 07/06/19 17:00 87 25 123/58 (79) 97 07/06/19 16:55 85 23 97 Full Face 28 07/06/19 16:30 Bi-pap 07/06/19 16:00 79 07/06/19 16:00 98.1 86 22 101/57 (72) 97 07/06/19 15:21 82 18 100 Room Air 21 78 16 94 07/06/19 15:11 78 16 94 Full Face 28 07/06/19 15:00 78 16 119/58 (78) 100 07/06/19 14:53 119/58 07/06/19 14:00 85 18 132/69 (90) 100 07/06/19 13:00 91 25 96/52 (67) 99 07/06/19 12:55 28 07/06/19 12:55 89 31 99 Full Face 28 07/06/19 12:00 98.2 88 27 97/67 (77) 96 07/06/19 12:00 85 07/06/19 12:00 Room Air 07/06/19 11:17 78 20 100 Room Air 21 77 21 97 07/06/19 11:00 81 25 118/54 (75) 98 07/06/19 10:00 81 17 109/52 (71) 100 07/06/19 09:52 83 17 100 Intake and Output 07/06/19 07/07/19 18:59 06:59 Intake Total 1435 ml 640 ml Output Total 1250 ml 1300 ml Balance 185 ml -660 ml Free Water 200 ml 100 ml IV Total 655 ml Tube Feeding 540 ml 540 ml Other 40 ml Output Urine Total 0 ml 0 ml Stool Total 950 ml 1300 ml Other 300 ml Laboratory Tests 07/06/19 11:20: Lactic Acid Level 2.00 07/06/19 12:34: Arterial Blood pH 7.406, Arterial Blood Partial Pressure CO2 31.3L, Arterial Blood Partial Pressure O2 60.4L, Arterial Blood HCO3 19.2L, Arterial Blood Oxygen Saturation 89.0*L, Arterial Blood Base Excess -4.9L, Dave Test Positive 07/06/19 14:55: Arterial Blood pH 7.410, Arterial Blood Partial Pressure CO2 29.6L, Arterial Blood Partial Pressure O2 82.7, Arterial Blood HCO3 18.3L, Arterial Blood Oxygen Saturation 95.6, Arterial Blood Base Excess -5.5L, Dave Test Positive 07/06/19 15:43: Random Vancomycin Level 18.1 07/07/19 04:28: White Blood Count 32.0*H, Red Blood Count 2.40L, Hemoglobin 7.4L, Hematocrit 24.2L, Mean Corpuscular Volume 101H, Mean Corpuscular Hemoglobin 31.1H, Mean Corpuscular Hemoglobin Concent 30.8L, Red Cell Distribution Width 24.6H, Platelet Count 166, Mean Platelet Volume 8.3, Neutrophils (%) (Auto) , Lymphocytes (%) (Auto) , Monocytes (%) (Auto) , Eosinophils (%) (Auto) , Basophils (%) (Auto) , Differential Total Cells Counted 100, Neutrophils % ( Manual) 85H, Lymphocytes % (Manual) 7L, Monocytes % (Manual) 6, Eosinophils % ( Manual) 0, Basophils % (Manual) 1, Band Neutrophils 1, Platelet Estimate Adequate, Platelet Morphology Normal, Polychromasia 1+, Hypochromasia 1+, Anisocytosis 3+, Macrocytosis 1+, Sodium Level 155H, Potassium Level 3.0L, Chloride Level 117H, Carbon Dioxide Level 21, Anion Gap 17H, Blood Urea Nitrogen 66H, Creatinine 8.1H, Estimat Glomerular Filtration Rate 7.4, Glucose Level 155H, Calcium Level 8.4L, Total Bilirubin 35.4H, Direct Bilirubin 28.9H, Aspartate Amino Transf (AST/SGOT) 119H, Alanine Aminotransferase (ALT/SGPT) 18, Alkaline Phosphatase 247H, Ammonia 59H, Total Protein 5.0L, Albumin 1.6L, Globulin 3.4, Albumin/Globulin Ratio 0.5L Height (Feet): 5 Height (Inches): 9.00 Weight (Pounds): 225 General Appearance: confused Neck: normal alignment, supple Cardiovascular: normal rate Respiratory/Chest: rhonchi - bilaterally Abdomen: distended Edema: 2+ Arm (L), 2+ Arm (R), 2+ Leg (L), 2+ Leg (R), 2+ Pedal (L), 2+ Pedal ( R), 2+ Generalized Cirilo Sanchez MD Jul 07, 2019 09:52
--- NOTE | 2019-07-07 10:22 | Cardiology Progress Note ---
Assessment/Plan Status: stable Assessment/Plan Assessment/Plan Assessment/Plan 1. Sinus tach due to alcohol withdrawal and hepatic encephalopathy. No SVT or atrial fibrillation. EF 55% 2. Cirrhosis. On Lactulose . S/P paracentesis 3. Hypotension BP 80 better after albumin Off and on needs Dopamine 4. Hepatorenal syndrome. Fu . S/P Carrillo Catheter and HD 5. Hypokalemia. 6. Alcohol intoxication. Thiamine, folate, and Librium. 7. Hepatic encephalopathy Subjective Cardiovascular: Reports: no symptoms Respiratory: Reports: no symptoms Gastrointestinal/Abdominal: Reports: no symptoms Genitourinary: Reports: no symptoms Subjective Coverage for [place] No acute events, finished HD, plan for supportive comfort care. Objective Last 24 Hour Vital Signs Date Time Temp Pulse Resp B/P (MAP) Pulse Ox O2 Delivery O2 Flow Rate FiO2 07/07/19 09:06 79 21 100 Full Face 28 07/07/19 08:00 97.8 87 18 90/40 (57) 100 07/07/19 08:00 Bi-pap 07/07/19 07:24 100 Bi-Pap 28 07/07/19 07:00 84 17 104/55 (71) 99 07/07/19 06:55 82 24 100 Full Face 28 07/07/19 06:00 73 19 110/48 (68) 97 07/07/19 05:13 74 17 100 Full Face 28 07/07/19 05:00 78 15 116/48 (70) 100 07/07/19 04:00 98.0 81 18 123/46 (71) 100 07/07/19 04:00 Bi-pap 07/07/19 04:00 88 07/07/19 03:17 85 19 100 Bi-Pap 28 07/07/19 03:07 84 25 99 Full Face 28 07/07/19 03:07 84 25 99 07/07/19 03:00 84 29 110/46 (67) 98 07/07/19 02:00 82 24 109/44 (65) 98 07/07/19 01:00 79 19 109/53 (71) 99 07/07/19 00:57 79 17 99 Full Face 28 07/07/19 00:00 Bi-pap 07/07/19 00:00 98.0 83 20 119/51 (73) 100 07/06/19 23:19 85 19 100 Bi-Pap 28 07/06/19 23:09 88 30 100 07/06/19 23:09 88 30 100 Full Face 28 07/06/19 23:00 90 23 119/49 (72) 100 07/06/19 22:00 85 26 102/44 (63) 98 07/06/19 21:00 83 23 113/48 (69) 99 07/06/19 20:51 81 23 98 Full Face 28 07/06/19 20:00 85 07/06/19 20:00 98.0 83 20 113/48 (69) 100 07/06/19 20:00 Bi-pap 07/06/19 19:15 84 19 100 Bi-Pap 28 07/06/19 19:05 86 26 100 07/06/19 19:04 100 Bi-Pap 28 07/06/19 19:04 85 17 100 Full Face 28 07/06/19 19:00 85 20 92/59 (70) 100 07/06/19 18:00 85 19 107/53 (71) 99 07/06/19 17:00 87 25 123/58 (79) 97 07/06/19 16:55 85 23 97 Full Face 28 07/06/19 16:30 Bi-pap 07/06/19 16:00 79 07/06/19 16:00 98.1 86 22 101/57 (72) 97 07/06/19 15:21 82 18 100 Room Air 21 78 16 94 07/06/19 15:11 78 16 94 Full Face 28 07/06/19 15:00 78 16 119/58 (78) 100 07/06/19 14:53 119/58 07/06/19 14:00 85 18 132/69 (90) 100 07/06/19 13:00 91 25 96/52 (67) 99 07/06/19 12:55 28 07/06/19 12:55 89 31 99 Full Face 28 07/06/19 12:00 98.2 88 27 97/67 (77) 96 07/06/19 12:00 85 07/06/19 12:00 Room Air 07/06/19 11:17 78 20 100 Room Air 21 77 21 97 07/06/19 11:00 81 25 118/54 (75) 98 General Appearance: no apparent distress, lethargic EENT: PERRL/EOMI, normal ENT inspection, TMs normal, pharynx normal Neck: non-tender, normal alignment, supple, normal inspection, no JVD Rhythm: NSR Cardiovascular: normal peripheral pulses, normal rate Respiratory/Chest: chest wall non-tender, lungs clear, normal breath sounds Abdomen: normal bowel sounds, non tender, soft, no organomegaly Extremities: normal range of motion, non-tender Neurologic: national account representative II-XII grossly normal, no motor/sensory deficits Intake and Output 07/06/19 07/07/19 18:59 06:59 Intake Total 1435 ml 640 ml Output Total 1250 ml 1300 ml Balance 185 ml -660 ml Free Water 200 ml 100 ml IV Total 655 ml Tube Feeding 540 ml 540 ml Other 40 ml Output Urine Total 0 ml 0 ml Stool Total 950 ml 1300 ml Other 300 ml Laboratory Tests Test 07/06/19 11:20 07/06/19 12:34 07/06/19 14:55 07/06/19 15:43 Lactic Acid Level 2.00 mmol/L (0.66-2.22) Arterial Blood pH 7.406 (7.350-7.450) 7.410 (7.350-7.450) Arterial Blood Partial Pressure CO2 31.3 mmHg (35.0-45.0) L 29.6 mmHg (35.0-45.0) L Arterial Blood Partial Pressure O2 60.4 mmHg (75.0-100.0) L 82.7 mmHg (75.0-100.0) Arterial Blood HCO3 19.2 mmol/L (22.0-26.0) L 18.3 mmol/L (22.0-26.0) L Arterial Blood Oxygen Saturation 89.0 % (95-100) *L 95.6 % (95-100) Arterial Blood Base Excess -4.9 (-2-2) L -5.5 (-2-2) L Dave Test Positive Positive Random Vancomycin Level 18.1 ug/mL Test 07/07/19 04:28 White Blood Count 32.0 K/UL (4.8-10.8) *H Red Blood Count 2.40 M/UL (4.70-6.10) L Hemoglobin 7.4 G/DL (14.2-18.0) L Hematocrit 24.2 % (42.0-52.0) L Mean Corpuscular Volume 101 FL (80-99) H Mean Corpuscular Hemoglobin 31.1 PG (27.0-31.0) H Mean Corpuscular Hemoglobin Concent 30.8 G/DL (32.0-36.0) L Red Cell Distribution Width 24.6 % (11.6-14.8) H Platelet Count 166 K/UL (150-450) Mean Platelet Volume 8.3 FL (6.5-10.1) Neutrophils (%) (Auto) % (45.0-75.0) Lymphocytes (%) (Auto) % (20.0-45.0) Monocytes (%) (Auto) % (1.0-10.0) Eosinophils (%) (Auto) % (0.0-3.0) Basophils (%) (Auto) % (0.0-2.0) Differential Total Cells Counted 100 Neutrophils % (Manual) 85 % (45-75) H Lymphocytes % (Manual) 7 % (20-45) L Monocytes % (Manual) 6 % (1-10) Eosinophils % (Manual) 0 % (0-3) Basophils % (Manual) 1 % (0-2) Band Neutrophils 1 % (0-8) Platelet Estimate Adequate Platelet Morphology Normal Polychromasia 1+ Hypochromasia 1+ Anisocytosis 3+ Macrocytosis 1+ Sodium Level 155 MMOL/L (136-145) H Potassium Level 3.0 MMOL/L (3.5-5.1) L Chloride Level 117 MMOL/L (98-107) H Carbon Dioxide Level 21 MMOL/L (21-32) Anion Gap 17 mmol/L (5-15) H Blood Urea Nitrogen 66 mg/dL (7-18) H Creatinine 8.1 MG/DL (0.55-1.30) H Estimat Glomerular Filtration Rate 7.4 mL/min (>60) Glucose Level 155 MG/DL (74-106) H Calcium Level 8.4 MG/DL (8.5-10.1) L Total Bilirubin 35.4 MG/DL (0.2-1.0) H Direct Bilirubin 28.9 MG/DL (0.0-0.3) H Aspartate Amino Transf (AST/SGOT) 119 U/L (15-37) H Alanine Aminotransferase (ALT/SGPT) 18 U/L (12-78) Alkaline Phosphatase 247 U/L (46-116) H Ammonia 59 umol/L (11-32) H Total Protein 5.0 G/DL (6.4-8.2) L Albumin 1.6 G/DL (3.4-5.0) L Globulin 3.4 g/dL Albumin/Globulin Ratio 0.5 (1.0-2.7) L Quang Espinoza MD Jul 07, 2019 10:22
[2019-07-07] MEDS ORDERED: Vancomycin 1.25gm/D5W 275ml IVPB ONE ×2 (10:30)
[2019-07-07] MEDS: Meropenem 500 MG in NS 55 ML IVPB SCH (13:08)
[2019-07-07] MEDS: DOPamine 400mg/250ml 250 ML IV SCH (14:53)
--- NOTE | 2019-07-07 18:35 | Pulmonolgy Critical Care Note ---
Critical Care - Asmt/Plan Assessment/Plan: Pulmonary CCM Progress Note HPI This is a 39-year-old male who is an alcoholic with significant fatty liver on abdominal CT and alcoholic hepatitis, liver failure c/b multiorgan failure. He has been drinking heavily for 3 months straight, having stopped drinking BILINGUAL NANNY. Noted to have Hepatic Encephalopathy and Hepatorenal Syndrome. No bleeding. Noted to have significant hypokalemia and acidosis, now on HD, evidence of sepsis, source unclear - some bacteria in urine, mild ascites - possible SBP, dilated Gallbladder, s/p Paracentesis previously and again today On NC, BiPAP PRN, NGT, on Lactulose On Hemodialysis for worsening acidosis, uremia Remains confused BP stable, Midodrine, PRN levophed to maintain BP Allergies: No Known Allergies Past Medical History: Alcohol abuse All Other Systems: negative except mentioned in HPI Physical Exam Vital Signs Noted General Appearance: Jaundiced, awake Head: normocephalic, atraumatic, HD catheter Eyes: bilateral eye PERRL, bilateral eye EOMI, bilateral eye scleral icterus ENT: moist mm Neck: no masses, no LN Respiratory: chest non-tender, lungs clear, normal breath sounds Cardiovascular: regular rate, rhythm, Normal HS1, HS2, no murmur, tachycardia Gastrointestinal: Obese, hepatomegaly, some tenderness RUQ, normal bowel sounds , no mass, no rebound Musculoskeletal: moves all limbs Neurologic: responds to commands, awake Skin: jaundiced, moderate edema Impression: Acute alcoholic intoxication Severe Sepsis Alcoholic Hepatitis Possible Cirrhosis Hepatorenal syndrome - worsening renal function - on HD Multiorgan Failure Extremelt poor prognosis Possible Portal Hypertension Hypernatremia Pancreatitis, alcoholic, acute Anemia Plan ICU management NPO except meds/NGT feeds IV antibiotics per ID Aspiration precautions BiPAP PRN NC O2 GI/Renal following HD per Nephrology Pressors PRN Transfuse PRN Thiamine Monitor labs Adjust FIO2 - sats 90-96% Patient has extremely poor prognosis Ongoing attempts with family discussions wrt possible DNR/DNI status Labs: noted EKG: Rate: tachycardiac Rhythm: NSR ST Segments: other - NSST changes Chest X-Ray: hypoventilatory exam, no consolidation, no effusion, no pneumothorax, no acute cardiopulmonary disease CT abdomen pelvis: Severely enlarged liver and fatty liver. Mild ascites. Critical Care - Objective Last 24 Hour Vital Signs Date Time Temp Pulse Resp B/P (MAP) Pulse Ox O2 Delivery O2 Flow Rate FiO2 07/07/19 17:00 87 28 95/43 (60) 95 07/07/19 16:00 97.6 85 21 101/47 (65) 96 07/07/19 16:00 Bi-pap 07/07/19 16:00 76 07/07/19 15:05 83 22 95 Nasal Cannula 2.0 28 07/07/19 15:00 81 23 108/47 (67) 100 07/07/19 14:55 78 21 96 07/07/19 14:53 108/47 07/07/19 14:00 81 23 93/42 (59) 99 07/07/19 13:00 80 20 86/44 (58) 100 07/07/19 12:00 Bi-pap 07/07/19 12:00 86 07/07/19 12:00 98.8 84 21 93/43 (60) 99 07/07/19 11:21 86 20 100 Venturi Mask 30 07/07/19 11:11 80 16 99 07/07/19 11:00 77 21 110/44 (66) 100 07/07/19 10:00 77 21 92/61 (71) 100 07/07/19 09:06 79 21 100 Full Face 28 07/07/19 09:00 76 22 99/38 (58) 100 07/07/19 08:00 97.8 87 18 90/40 (57) 100 07/07/19 08:00 76 07/07/19 08:00 Bi-pap 07/07/19 07:24 100 Bi-Pap 28 07/07/19 07:00 84 17 104/55 (71) 99 07/07/19 06:55 82 24 100 Full Face 28 07/07/19 06:00 73 19 110/48 (68) 97 07/07/19 05:13 74 17 100 Full Face 28 07/07/19 05:00 78 15 116/48 (70) 100 07/07/19 04:00 98.0 81 18 123/46 (71) 100 07/07/19 04:00 Bi-pap 07/07/19 04:00 88 07/07/19 03:17 85 19 100 Bi-Pap 28 07/07/19 03:07 84 25 99 Full Face 28 07/07/19 03:07 84 25 99 07/07/19 03:00 84 29 110/46 (67) 98 07/07/19 02:00 82 24 109/44 (65) 98 07/07/19 01:00 79 19 109/53 (71) 99 07/07/19 00:57 79 17 99 Full Face 28 07/07/19 00:00 Bi-pap 07/07/19 00:00 98.0 83 20 119/51 (73) 100 07/06/19 23:19 85 19 100 Bi-Pap 28 07/06/19 23:09 88 30 100 07/06/19 23:09 88 30 100 Full Face 28 07/06/19 23:00 90 23 119/49 (72) 100 07/06/19 22:00 85 26 102/44 (63) 98 07/06/19 21:00 83 23 113/48 (69) 99 07/06/19 20:51 81 23 98 Full Face 28 07/06/19 20:00 85 07/06/19 20:00 98.0 83 20 113/48 (69) 100 07/06/19 20:00 Bi-pap 07/06/19 19:15 84 19 100 Bi-Pap 28 07/06/19 19:05 86 26 100 07/06/19 19:04 100 Bi-Pap 28 07/06/19 19:04 85 17 100 Full Face 28 07/06/19 19:00 85 20 92/59 (70) 100 Critical Care - Subjective ROS Limited/Unobtainable: No FI02: 28 Vent Support Mode: BiLevel Sputum Amount: None Tube Feeding Amount: 45 I&O: Intake and Output 07/06/19 07/07/19 19:00 07:00 Intake Total 1435 ml 640 ml Output Total 1250 ml 1300 ml Balance 185 ml -660 ml Free Water 200 ml 100 ml IV Total 655 ml Tube Feeding 540 ml 540 ml Other 40 ml Output Urine Total 0 ml 0 ml Stool Total 950 ml 1300 ml Other 300 ml Quang Domingo MD Jul 07, 2019 18:35
[2019-07-07] MEDS: Dyna-Hex 2% Top Sol 2oz TOPIC SCH (20:35)
--- NOTE | 2019-07-07 21:19 | General Progress Note ---
Assessment/Plan Problem List: (1) Anemia ICD Codes: D64.9 - Anemia, unspecified SNOMED: 921117247 Qualifiers: Qualified Codes: D64.9 - Anemia, unspecified (2) Acute alcoholic intoxication ICD Codes: F10.929 - Alcohol use, unspecified with intoxication, unspecified SNOMED: 65952781, 8562156 Qualifiers: Qualified Codes: F10.920 - Alcohol use, unspecified with intoxication, uncomplicated (3) End-stage liver disease ICD Codes: K72.90 - Hepatic failure, unspecified without coma SNOMED: 777426575 (4) Hepatorenal syndrome ICD Codes: K76.7 - Hepatorenal syndrome SNOMED: 08720061, 4584091 (5) Pancreatitis, alcoholic, acute ICD Codes: K85.20 - Alcohol induced acute pancreatitis without necrosis or infection SNOMED: 661342208, 8563214 Qualifiers: Qualified Codes: K85.20 - Alcohol induced acute pancreatitis without necrosis or infection (6) Respiratory failure ICD Codes: J96.90 - Respiratory failure, unspecified, unspecified whether with hypoxia or hypercapnia SNOMED: 768910961 Status: stable Assessment/Plan: hepatorenal syndrome] anemia reviewed chart and labs and meds not improving anasarca malnutrition etoh cirhossis favor comfort care elevated lft s/p paracentesis Subjective ROS Limited/Unobtainable: Yes Allergies: Coded Allergies: No Known Allergies (Unverified , 06/20/19) Objective Last 24 Hour Vital Signs Date Time Temp Pulse Resp B/P (MAP) Pulse Ox O2 Delivery O2 Flow Rate FiO2 07/07/19 19:20 94/44 07/07/19 19:00 86 24 94/44 (61) 97 07/07/19 18:45 99 Venturi Mask 4.0 30 07/07/19 18:42 80 22 100 Venturi Mask 4.0 30 81 19 99 07/07/19 18:00 80 23 100/44 (62) 100 07/07/19 17:00 87 28 95/43 (60) 95 07/07/19 16:00 97.6 85 21 101/47 (65) 96 07/07/19 16:00 Bi-pap 07/07/19 16:00 76 07/07/19 15:05 83 22 95 Nasal Cannula 2.0 28 07/07/19 15:00 81 23 108/47 (67) 100 07/07/19 14:55 78 21 96 07/07/19 14:53 108/47 07/07/19 14:00 81 23 93/42 (59) 99 07/07/19 13:00 80 20 86/44 (58) 100 07/07/19 12:00 Bi-pap 07/07/19 12:00 86 07/07/19 12:00 98.8 84 21 93/43 (60) 99 07/07/19 11:21 86 20 100 Venturi Mask 30 07/07/19 11:11 80 16 99 07/07/19 11:00 77 21 110/44 (66) 100 07/07/19 10:00 77 21 92/61 (71) 100 07/07/19 09:06 79 21 100 Full Face 28 07/07/19 09:00 76 22 99/38 (58) 100 07/07/19 08:00 97.8 87 18 90/40 (57) 100 07/07/19 08:00 76 07/07/19 08:00 Bi-pap 07/07/19 07:24 100 Bi-Pap 28 07/07/19 07:00 84 17 104/55 (71) 99 07/07/19 06:55 82 24 100 Full Face 28 07/07/19 06:00 73 19 110/48 (68) 97 07/07/19 05:13 74 17 100 Full Face 28 07/07/19 05:00 78 15 116/48 (70) 100 07/07/19 04:00 98.0 81 18 123/46 (71) 100 07/07/19 04:00 Bi-pap 07/07/19 04:00 88 07/07/19 03:17 85 19 100 Bi-Pap 28 07/07/19 03:07 84 25 99 Full Face 28 07/07/19 03:07 84 25 99 07/07/19 03:00 84 29 110/46 (67) 98 07/07/19 02:00 82 24 109/44 (65) 98 07/07/19 01:00 79 19 109/53 (71) 99 07/07/19 00:57 79 17 99 Full Face 28 07/07/19 00:00 Bi-pap 07/07/19 00:00 98.0 83 20 119/51 (73) 100 07/06/19 23:19 85 19 100 Bi-Pap 28 07/06/19 23:09 88 30 100 07/06/19 23:09 88 30 100 Full Face 28 07/06/19 23:00 90 23 119/49 (72) 100 07/06/19 22:00 85 26 102/44 (63) 98 Intake and Output 07/06/19 07/07/19 19:00 07:00 Intake Total 1435 ml 640 ml Output Total 1250 ml 1300 ml Balance 185 ml -660 ml Free Water 200 ml 100 ml IV Total 655 ml Tube Feeding 540 ml 540 ml Other 40 ml Output Urine Total 0 ml 0 ml Stool Total 950 ml 1300 ml Other 300 ml Laboratory Tests 07/07/19 04:28: White Blood Count 32.0*H, Red Blood Count 2.40L, Hemoglobin 7.4L, Hematocrit 24.2L, Mean Corpuscular Volume 101H, Mean Corpuscular Hemoglobin 31.1H, Mean Corpuscular Hemoglobin Concent 30.8L, Red Cell Distribution Width 24.6H, Platelet Count 166, Mean Platelet Volume 8.3, Neutrophils (%) (Auto) , Lymphocytes (%) (Auto) , Monocytes (%) (Auto) , Eosinophils (%) (Auto) , Basophils (%) (Auto) , Differential Total Cells Counted 100, Neutrophils % ( Manual) 85H, Lymphocytes % (Manual) 7L, Monocytes % (Manual) 6, Eosinophils % ( Manual) 0, Basophils % (Manual) 1, Band Neutrophils 1, Platelet Estimate Adequate, Platelet Morphology Normal, Polychromasia 1+, Hypochromasia 1+, Anisocytosis 3+, Macrocytosis 1+, Sodium Level 155H, Potassium Level 3.0L, Chloride Level 117H, Carbon Dioxide Level 21, Anion Gap 17H, Blood Urea Nitrogen 66H, Creatinine 8.1H, Estimat Glomerular Filtration Rate 7.4, Glucose Level 155H, Calcium Level 8.4L, Total Bilirubin 35.4H, Direct Bilirubin 28.9H, Aspartate Amino Transf (AST/SGOT) 119H, Alanine Aminotransferase (ALT/SGPT) 18, Alkaline Phosphatase 247H, Ammonia 59H, Total Protein 5.0L, Albumin 1.6L, Globulin 3.4, Albumin/Globulin Ratio 0.5L Height (Feet): 5 Height (Inches): 9.00 Weight (Pounds): 225 General Appearance: lethargic, confused Abdomen: tender Deejay Saldaña MD Jul 07, 2019 21:19
[2019-07-08] VITALS (24 sets, daily range): BP systolic 92–132; BP diastolic 39–61
[2019-07-08] MEDS: Albuterol/Ipratropium 3ml neb HHN SCH ×6 (03:02→22:50)
[2019-07-08 05:11] LABS: HEMOGLOBIN 7.4 G/DL (14.2-18.0); MEAN CORPUSCULAR VOLUME 100 FL (80-99); PLATELET COUNT 145 K/UL (150-450); RED BLOOD COUNT 2.39 M/UL (4.70-6.10); RED CELL DISTRIBUTION WIDTH 25.4 % (11.6-14.8)
[2019-07-08 05:31] LABS: ANION GAP 16 mmol/L (5-15); BLOOD UREA NITROGEN 54 mg/dL (7-18); CARBON DIOXIDE 22 MMOL/L (21-32); CHLORIDE 114 MMOL/L (98-107); POTASSIUM 2.9 MMOL/L (3.5-5.1); SODIUM 152 MMOL/L (136-145)
[2019-07-08 05:46] LABS: WHITE BLOOD COUNT 31.9 K/UL (4.8-10.8)
--- NOTE | 2019-07-08 06:54 | General Progress Note ---
Assessment/Plan Problem List: (1) Pancreatitis, alcoholic, acute ICD Codes: K85.20 - Alcohol induced acute pancreatitis without necrosis or infection SNOMED: 522447796, 9259010 Qualifiers: Qualified Codes: K85.20 - Alcohol induced acute pancreatitis without necrosis or infection (2) Acute alcoholic intoxication ICD Codes: F10.929 - Alcohol use, unspecified with intoxication, unspecified SNOMED: 40475723, 1346920 Qualifiers: Qualified Codes: F10.920 - Alcohol use, unspecified with intoxication, uncomplicated (3) Anemia ICD Codes: D64.9 - Anemia, unspecified SNOMED: 898038576 Qualifiers: Qualified Codes: D64.9 - Anemia, unspecified Status: stable Assessment/Plan: discriminant factor of 16 NGTF repeat labs fu nephrology cont lactulose xifaxan prn paracentesis poor prognosis Subjective ROS Limited/Unobtainable: No Allergies: Coded Allergies: No Known Allergies (Unverified , 06/20/19) Objective Last 24 Hour Vital Signs Date Time Temp Pulse Resp B/P (MAP) Pulse Ox O2 Delivery O2 Flow Rate FiO2 07/08/19 06:00 79 21 93/44 (60) 100 07/08/19 05:01 81 26 100 Full Face 28 07/08/19 05:00 28 07/08/19 05:00 75 105/47 (66) 07/08/19 04:00 81 07/08/19 04:00 Bi-pap 07/08/19 04:00 97.3 79 23 132/40 (70) 100 07/08/19 03:08 77 24 100 Full Face 28 07/08/19 03:03 77 23 100 Bi-Pap 28 79 28 100 07/08/19 03:00 76 22 97/44 (61) 100 07/08/19 02:00 78 20 94/42 (59) 100 07/08/19 01:15 79 23 100 Facial 28 07/08/19 01:00 78 20 94/40 (58) 100 07/08/19 00:00 97.3 77 24 103/40 (61) 100 07/08/19 00:00 28 07/08/19 00:00 Bi-pap 07/08/19 00:00 79 07/07/19 23:00 82 26 85/41 (56) 98 07/07/19 22:44 82 25 100 Bi-Pap 28 77 22 99 07/07/19 22:00 82 29 96/42 (60) 98 07/07/19 21:39 82 30 99 Facial 28 07/07/19 21:00 28 07/07/19 21:00 83 30 96/35 (55) 98 07/07/19 20:00 97.7 84 27 90/42 (58) 98 07/07/19 20:00 Bi-pap 07/07/19 20:00 86 07/07/19 19:20 94/44 07/07/19 19:00 86 24 94/44 (61) 97 07/07/19 18:45 99 Venturi Mask 4.0 30 07/07/19 18:42 80 22 100 Venturi Mask 4.0 30 81 19 99 07/07/19 18:00 80 23 100/44 (62) 100 07/07/19 17:00 87 28 95/43 (60) 95 07/07/19 16:00 97.6 85 21 101/47 (65) 96 07/07/19 16:00 Bi-pap 07/07/19 16:00 76 07/07/19 15:05 83 22 95 Nasal Cannula 2.0 28 07/07/19 15:00 81 23 108/47 (67) 100 07/07/19 14:55 78 21 96 07/07/19 14:53 108/47 07/07/19 14:00 81 23 93/42 (59) 99 07/07/19 13:00 80 20 86/44 (58) 100 07/07/19 12:00 Bi-pap 07/07/19 12:00 86 07/07/19 12:00 98.8 84 21 93/43 (60) 99 07/07/19 11:21 86 20 100 Venturi Mask 30 07/07/19 11:11 80 16 99 07/07/19 11:00 77 21 110/44 (66) 100 07/07/19 10:00 77 21 92/61 (71) 100 07/07/19 09:06 79 21 100 Full Face 28 07/07/19 09:00 76 22 99/38 (58) 100 07/07/19 08:00 97.8 87 18 90/40 (57) 100 07/07/19 08:00 76 07/07/19 08:00 Bi-pap 07/07/19 07:24 100 Bi-Pap 28 07/07/19 07:00 84 17 104/55 (71) 99 07/07/19 06:55 82 24 100 Full Face 28 Intake and Output 07/07/19 07/08/19 19:00 07:00 Intake Total 2091.666 ml 450 ml Output Total 2930 ml 1000 ml Balance -838.334 ml -550 ml Free Water 50 ml IV Total 1471.666 ml Tube Feeding 540 ml 450 ml Blood Product 30 ml Output Urine Total 30 ml 0 ml Stool Total 1100 ml 1000 ml Hemodialysis UF 1800 ml Laboratory Tests 07/08/19 04:30: White Blood Count 31.9*H, Red Blood Count 2.39L, Hemoglobin 7.4L, Hematocrit 24.0L, Mean Corpuscular Volume 100H, Mean Corpuscular Hemoglobin 31.1H, Mean Corpuscular Hemoglobin Concent 31.0L, Red Cell Distribution Width 25.4H, Platelet Count 145L, Mean Platelet Volume 9.6, Neutrophils (%) (Auto) , Lymphocytes (%) (Auto) , Monocytes (%) (Auto) , Eosinophils (%) (Auto) , Basophils (%) (Auto) , Neutrophils % (Manual) [Pending], Lymphocytes % (Manual) [Pending], Platelet Estimate [Pending], Platelet Morphology [Pending], Sodium Level 152H, Potassium Level 2.9L, Chloride Level 114H, Carbon Dioxide Level 22, Anion Gap 16H, Blood Urea Nitrogen 54H, Creatinine 7.0H, Estimat Glomerular Filtration Rate 8.8, Glucose Level 119H, Calcium Level 8.0L, Ammonia 62H Height (Feet): 5 Height (Inches): 9.00 Weight (Pounds): 225 General Appearance: lethargic EENT: normal ENT inspection Neck: supple Cardiovascular: normal rate Respiratory/Chest: decreased breath sounds Abdomen: normal bowel sounds, non tender, soft Extremities: non-tender Merlin Esposito MD Jul 08, 2019 06:54
[2019-07-08] MEDS: Pantoprazole Inj IVP SCH ×2 (08:34→20:20)
[2019-07-08] MEDS: Lactulose 20gm/30ml UDC NG SCH ×4 (08:34→20:20)
--- NOTE | 2019-07-08 08:36 | Diagnostic Imaging Report ---
EXAM: XR Chest, 1 View CLINICAL HISTORY: F U TECHNIQUE: Frontal view of the chest. COMPARISON: Chest x-ray dated 07 05 19 FINDINGS: Lungs: Mild pulmonary vascular congestion, not significantly changed. Subsegmental atelectasis in the medial lung bases. Pleural space: No visible effusion or pneumothorax. Heart: Cardiomegaly. Mediastinum: Unremarkable. Bones joints: Unremarkable. Tubes, lines and devices: Stable position of the right IJ-approach dialysis catheter with the tip in the region of the right atrium. Telemetry leads overlie the thorax. IMPRESSION: 1. Mild pulmonary vascular congestion, not significantly changed. 2. Cardiomegaly. 3. Subsegmental atelectasis in the medial lung bases.
--- NOTE | 2019-07-08 09:35 | Nephrology Progress Note ---
Assessment/Plan Status: stable Assessment/Plan: A/P 1) MARCO- HRS 2, rapid decline of renal function - family declined hospice - futile care - HD tomorrow 2) ESLD- alcohol - per GI mgmt - ESLD, 3) Hypernatremia- due to high loss stool volume 4) Hypokalemia- being replaced today with IV 30 meq KCL Subjective Date patient seen: Jul 08, 2019 Time patient seen: 09:32 ROS Limited/Unobtainable: Yes Allergies: Coded Allergies: No Known Allergies (Unverified , 06/20/19) Subjective Patient remains critically ill. Family has declined hospice Objective Last 24 Hour Vital Signs Date Time Temp Pulse Resp B/P (MAP) Pulse Ox O2 Delivery O2 Flow Rate FiO2 07/08/19 09:00 79 22 102/39 (60) 98 07/08/19 08:00 97.6 80 25 92/49 (63) 97 07/08/19 08:00 Venturi Mask 30.0 07/08/19 08:00 81 07/08/19 07:20 78 20 100 Venturi Mask 30 78 20 99 07/08/19 07:20 99 Venturi Mask 4.0 30 07/08/19 07:00 78 20 94/47 (63) 100 07/08/19 06:00 79 21 93/44 (60) 100 07/08/19 05:01 81 26 100 Full Face 28 07/08/19 05:00 28 07/08/19 05:00 75 105/47 (66) 07/08/19 04:00 81 07/08/19 04:00 Bi-pap 07/08/19 04:00 97.3 79 23 132/40 (70) 100 07/08/19 03:08 77 24 100 Full Face 28 07/08/19 03:03 77 23 100 Bi-Pap 28 79 28 100 07/08/19 03:00 76 22 97/44 (61) 100 07/08/19 02:00 78 20 94/42 (59) 100 07/08/19 01:15 79 23 100 Facial 28 07/08/19 01:00 78 20 94/40 (58) 100 07/08/19 00:00 97.3 77 24 103/40 (61) 100 07/08/19 00:00 28 07/08/19 00:00 Bi-pap 07/08/19 00:00 79 07/07/19 23:00 82 26 85/41 (56) 98 07/07/19 22:44 82 25 100 Bi-Pap 28 77 22 99 07/07/19 22:00 82 29 96/42 (60) 98 07/07/19 21:39 82 30 99 Facial 28 07/07/19 21:00 28 07/07/19 21:00 83 30 96/35 (55) 98 07/07/19 20:00 97.7 84 27 90/42 (58) 98 07/07/19 20:00 Bi-pap 07/07/19 20:00 86 07/07/19 19:20 94/44 07/07/19 19:00 86 24 94/44 (61) 97 07/07/19 18:45 99 Venturi Mask 4.0 30 07/07/19 18:42 80 22 100 Venturi Mask 4.0 30 81 19 99 07/07/19 18:00 80 23 100/44 (62) 100 07/07/19 17:00 87 28 95/43 (60) 95 07/07/19 16:00 97.6 85 21 101/47 (65) 96 07/07/19 16:00 Bi-pap 07/07/19 16:00 76 07/07/19 15:05 83 22 95 Nasal Cannula 2.0 28 07/07/19 15:00 81 23 108/47 (67) 100 07/07/19 14:55 78 21 96 07/07/19 14:53 108/47 07/07/19 14:00 81 23 93/42 (59) 99 07/07/19 13:00 80 20 86/44 (58) 100 07/07/19 12:00 Bi-pap 07/07/19 12:00 86 07/07/19 12:00 98.8 84 21 93/43 (60) 99 07/07/19 11:21 86 20 100 Venturi Mask 30 07/07/19 11:11 80 16 99 07/07/19 11:00 77 21 110/44 (66) 100 07/07/19 10:00 77 21 92/61 (71) 100 Intake and Output 07/07/19 07/08/19 19:00 07:00 Intake Total 2091.666 ml 495 ml Output Total 2930 ml 1000 ml Balance -838.334 ml -505 ml Free Water 50 ml IV Total 1471.666 ml Tube Feeding 540 ml 495 ml Blood Product 30 ml Output Urine Total 30 ml 0 ml Stool Total 1100 ml 1000 ml Hemodialysis UF 1800 ml Laboratory Tests 07/08/19 04:30: White Blood Count 31.9*H, Red Blood Count 2.39L, Hemoglobin 7.4L, Hematocrit 24.0L, Mean Corpuscular Volume 100H, Mean Corpuscular Hemoglobin 31.1H, Mean Corpuscular Hemoglobin Concent 31.0L, Red Cell Distribution Width 25.4H, Platelet Count 145L, Mean Platelet Volume 9.6, Neutrophils (%) (Auto) , Lymphocytes (%) (Auto) , Monocytes (%) (Auto) , Eosinophils (%) (Auto) , Basophils (%) (Auto) , Differential Total Cells Counted 100, Neutrophils % ( Manual) 84H, Lymphocytes % (Manual) 7L, Monocytes % (Manual) 5, Eosinophils % ( Manual) 0, Basophils % (Manual) 0, Band Neutrophils 4, Platelet Estimate DecreasedL, Platelet Morphology Normal, Polychromasia 1+, Hypochromasia 1+, Anisocytosis 3+, Macrocytosis 1+, Sodium Level 152H, Potassium Level 2.9L, Chloride Level 114H, Carbon Dioxide Level 22, Anion Gap 16H, Blood Urea Nitrogen 54H, Creatinine 7.0H, Estimat Glomerular Filtration Rate 8.8, Glucose Level 119H, Calcium Level 8.0L, Ammonia 62H Height (Feet): 5 Height (Inches): 9.00 Weight (Pounds): 225 General Appearance: lethargic EENT: normal ENT inspection Neck: normal alignment, supple Cardiovascular: normal rate, regular rhythm Respiratory/Chest: lungs clear, normal breath sounds Abdomen: distended Edema: no edema noted Arm (L), no edema noted Arm (R), no edema noted Leg (L), no edema noted Leg (R), no edema noted Pedal (L), no edema noted Pedal (R), no edema noted Generalized Cirilo Sanchez MD Jul 08, 2019 09:35
--- NOTE | 2019-07-08 10:51 | Hematology/Onc Progress Note ---
Assessment/Plan Assessment/Plan Assessment and Recs: # Thrombocytopenia - potential causes multifactorial, does have a history of etoh abuse, cirrhosis of the liver, hepatosplenomegaly, portal HTN, coagulopathy noted as well, likely oscillatory pattern can be due to abx as well --> Hep panel and HIV ordered (NEG) --> US abd does show, portal htn and cirrhosis ++ --> Peripheral smear ordered to evaluate for blasts /schistocytes reviewed and is negative --> abx and other meds have been reviewed --> ok for ppx if plt >50k w/ either heparin or lovenox --> Transfuse if Plt < 20k and fever, or if Plt < 10k without fever --> plt trend 80-->97-->117-->157k->216k-->107k-->72k-->68k-->109k-->108k-->148k -->176k-->182k->141k # Anemia of chronic disease due to underlying chronic medical issues, multifactorial (myelosuprresion noted) --> Anemia workup has been reviewed, ferritin 297 --> EPOGEN HAS BEEN ORDERED WITH HD --> Hgb goal >7. Transfuse prn. --> Epogen or iron at this time is not particularly indicated --> Medications have been reviewed --> low threshold for gi evaluation in case has occult + --> hgb trend: 7.7-->8.2-->9->8.4-->8.3-->8.2-->8-->7.4->7.3-->7.7-->7.8-->7.6 --> serum electrophoresis shows no m-spike 06/27 # Coagulopathy due to cirrhosis --> give Vitk as needed # Leukocytosis with sepsis is on abx --> ID following, appreciate recs --> wbc trend: 17k-->13.9-->19.5-->18.7-->27.4-->33.6->32 --> FLAGYL and CTX-> vanc/amish # Acute alcoholic intoxication --> etoh abuse history --> thiamine, folic acid, ivf # End-stage liver disease --> Hepatorenal syndrome r/o with renal, albumin prn # Pancreatitis, alcoholic, acute # Tachycardia # ESRD --> on had as per renal # Dvt ppx with scds given low plts # POOR PROGNOSIS The timing of this note does not necessarily reflect the time of the patient was seen. GREATLY APPRECIATE CONSULTATION. Subjective Constitutional: Denies: no symptoms, chills, fever, malaise, weakness, other Cardiovascular: Denies: no symptoms, chest pain, edema, irregular heart rate, lightheadedness, palpitations, syncope, other Respiratory: Denies: no symptoms, cough, shortness of breath, SOB with excertion, SOB at rest, sputum, wheezing, other Gastrointestinal/Abdominal: Denies: no symptoms, abdomen distended, abdominal pain, black stools, tarry stools, blood in stool, constipated, diarrhea, difficulty swallowing, nausea, poor appetite, poor fluid intake, rectal bleeding , vomiting, other Genitourinary: Denies: no symptoms, burning, discharge, frequency, flank pain, hematuria, incontinence, pain, urgency, other Endocrine: Denies: no symptoms, excessive sweating, flushing, intolerance to cold, intolerance to heat, increased hunger, increased thirst, increased urine, unexplained weight gain, unexplained weight loss, other Hematologic/Lymphatic: Denies: no symptoms, anemia, easy bleeding, easy bruising, adenopathy, other Allergies: Coded Allergies: No Known Allergies (Unverified , 06/20/19) Subjective 06/21: low k, ferritin 297, h/h stable, afebrile, blood transfused 06/22: in icu, on restraints, labs reviewed, no f/c, imaging reviewed 06/23: pain meds given, remains in icu, again in restraints, bili higher, inr as well, given vitk 06/25: no fevers, no chills, no bleeding, confused in bed in icu 06/26: no events to report, no bleeding, remains in icu, ++ bipap 06/27: icu,s/p paracentesis yesterday, off pressors, h/h stable 06/28: on ctx/flagyl, remains confused, no bleeding, plt is lower 06/29: no f/c, on abx, no acute events, no distress, labs reviewed 9/7: remains in the icu, on abx, no f/c, scds+ 07/02: remains in the icu, no fevers or chills, prbc ordered, as well as epo 07/03: remains in the icu, on restraints, on abx, labs noted, vs stable, no acute events 07/04: dw team and agree patient with very poor prognosis, pending bioethics consult 07/05: remains in icu, very poor prognosis, labs noted wbc 27.4, off bipap receiving repiratory tx 07/06: remains icu, very poor prognosis, wbc 33.6 trending up, no f/c, vs stable , on bipap, paracentesis pending 07/08: remains in the icu, labs look worse, though repsonding better this am, able to raise hands Objective Objective Current Medications Medications (Trade) Dose Ordered Sig/Gabriela Route PRN Reason Start Time Stop Time Status Last Admin Dose Admin Albuterol/ Ipratropium (Albuterol/ Ipratropium) 3 ml Q4HRT HHN 07/04/19 15:00 07/09/19 14:59 07/08/19 07:28 Chlorhexidine Gluconate (Emilie-Hex 2%) 1 applic DAILY@2000 TOPIC 06/26/19 20:00 07/26/19 19:59 07/07/19 20:35 Dopamine HCl/ Dextrose 250 ml @ 0 mls/hr Q24H IV 06/30/19 14:53 07/30/19 14:52 07/05/19 12:42 Epoetin Michael (Epoetin Michael(ESRD on dialysis)) 2,000 unit TUE-TUE-TUE SUBQ 07/02/19 21:00 08/01/19 20:59 07/06/19 20:31 Epoetin Michael (Epoetin Michael(ESRD on dialysis)) 3,000 unit TUE-TUE-TUE SUBQ 07/02/19 21:00 08/01/19 20:59 07/06/19 20:31 Lactulose (Cephulac) 30 gm FOUR TIMES A DAY NG 07/01/19 09:00 07/20/19 12:59 07/08/19 08:34 Meropenem 500 mg/ Sodium Chloride 55 ml @ 110 mls/hr Q24H IVPB 07/05/19 12:00 07/10/19 11:59 07/07/19 13:08 Norepinephrine Bitartrate 4 mg/ Dextrose 250 ml @ 0 mls/hr Q24H IV 07/06/19 19:20 08/05/19 19:19 Pantoprazole (Protonix) 40 mg EVERY 12 HOURS IVP 06/21/19 21:00 07/20/19 20:59 07/08/19 08:34 Potassium Chloride 100 ml @ 50 mls/hr ONCE ONCE IVPB 07/08/19 10:00 07/08/19 11:59 07/08/19 09:51 Potassium Chloride 100 ml @ 100 mls/hr NOW ONCE IVPB 07/08/19 10:00 07/08/19 10:59 Vancomycin HCl (Vanco rx to dose) 1 ea DAILY PRN MISC Per rx protocol 07/05/19 10:45 08/04/19 10:44 Last 24 Hour Vital Signs Date Time Temp Pulse Resp B/P (MAP) Pulse Ox O2 Delivery O2 Flow Rate FiO2 07/08/19 10:00 82 18 107/45 (65) 100 07/08/19 09:00 79 22 102/39 (60) 98 07/08/19 08:00 97.6 80 25 92/49 (63) 97 07/08/19 08:00 Venturi Mask 30.0 07/08/19 08:00 81 07/08/19 07:20 78 20 100 Venturi Mask 30 78 20 99 07/08/19 07:20 99 Venturi Mask 4.0 30 07/08/19 07:00 78 20 94/47 (63) 100 07/08/19 06:00 79 21 93/44 (60) 100 07/08/19 05:01 81 26 100 Full Face 28 07/08/19 05:00 28 07/08/19 05:00 75 105/47 (66) 07/08/19 04:00 81 07/08/19 04:00 Bi-pap 07/08/19 04:00 97.3 79 23 132/40 (70) 100 07/08/19 03:08 77 24 100 Full Face 28 07/08/19 03:03 77 23 100 Bi-Pap 28 79 28 100 07/08/19 03:00 76 22 97/44 (61) 100 07/08/19 02:00 78 20 94/42 (59) 100 07/08/19 01:15 79 23 100 Facial 28 07/08/19 01:00 78 20 94/40 (58) 100 07/08/19 00:00 97.3 77 24 103/40 (61) 100 07/08/19 00:00 28 07/08/19 00:00 Bi-pap 07/08/19 00:00 79 07/07/19 23:00 82 26 85/41 (56) 98 07/07/19 22:44 82 25 100 Bi-Pap 28 77 22 99 07/07/19 22:00 82 29 96/42 (60) 98 07/07/19 21:39 82 30 99 Facial 28 07/07/19 21:00 28 07/07/19 21:00 83 30 96/35 (55) 98 07/07/19 20:00 97.7 84 27 90/42 (58) 98 07/07/19 20:00 Bi-pap 07/07/19 20:00 86 07/07/19 19:20 94/44 07/07/19 19:00 86 24 94/44 (61) 97 07/07/19 18:45 99 Venturi Mask 4.0 30 07/07/19 18:42 80 22 100 Venturi Mask 4.0 30 81 19 99 07/07/19 18:00 80 23 100/44 (62) 100 07/07/19 17:00 87 28 95/43 (60) 95 07/07/19 16:00 97.6 85 21 101/47 (65) 96 07/07/19 16:00 Bi-pap 07/07/19 16:00 76 07/07/19 15:05 83 22 95 Nasal Cannula 2.0 28 07/07/19 15:00 81 23 108/47 (67) 100 07/07/19 14:55 78 21 96 07/07/19 14:53 108/47 07/07/19 14:00 81 23 93/42 (59) 99 07/07/19 13:00 80 20 86/44 (58) 100 07/07/19 12:00 Bi-pap 07/07/19 12:00 86 07/07/19 12:00 98.8 84 21 93/43 (60) 99 07/07/19 11:21 86 20 100 Venturi Mask 30 07/07/19 11:11 80 16 99 07/07/19 11:00 77 21 110/44 (66) 100 07/07/19 10:00 77 21 92/61 (71) 100 07/07/19 09:06 79 21 100 Full Face 28 07/07/19 09:00 76 22 99/38 (58) 100 07/07/19 08:00 97.8 87 18 90/40 (57) 100 07/07/19 08:00 76 07/07/19 08:00 Bi-pap 07/07/19 07:24 100 Bi-Pap 28 07/07/19 07:00 84 17 104/55 (71) 99 07/07/19 06:55 82 24 100 Full Face 28 07/07/19 06:00 73 19 110/48 (68) 97 07/07/19 05:13 74 17 100 Full Face 28 07/07/19 05:00 78 15 116/48 (70) 100 07/07/19 04:00 98.0 81 18 123/46 (71) 100 07/07/19 04:00 Bi-pap 07/07/19 04:00 88 07/07/19 03:17 85 19 100 Bi-Pap 28 07/07/19 03:07 84 25 99 Full Face 28 07/07/19 03:07 84 25 99 07/07/19 03:00 84 29 110/46 (67) 98 07/07/19 02:00 82 24 109/44 (65) 98 07/07/19 01:00 79 19 109/53 (71) 99 07/07/19 00:57 79 17 99 Full Face 28 07/07/19 00:00 Bi-pap 07/07/19 00:00 98.0 83 20 119/51 (73) 100 07/06/19 23:19 85 19 100 Bi-Pap 28 07/06/19 23:09 88 30 100 07/06/19 23:09 88 30 100 Full Face 28 07/06/19 23:00 90 23 119/49 (72) 100 07/06/19 22:00 85 26 102/44 (63) 98 07/06/19 21:00 83 23 113/48 (69) 99 07/06/19 20:51 81 23 98 Full Face 28 07/06/19 20:00 85 07/06/19 20:00 98.0 83 20 113/48 (69) 100 07/06/19 20:00 Bi-pap 07/06/19 19:15 84 19 100 Bi-Pap 28 07/06/19 19:05 86 26 100 07/06/19 19:04 100 Bi-Pap 28 07/06/19 19:04 85 17 100 Full Face 28 07/06/19 19:00 85 20 92/59 (70) 100 07/06/19 18:00 85 19 107/53 (71) 99 07/06/19 17:00 87 25 123/58 (79) 97 07/06/19 16:55 85 23 97 Full Face 28 07/06/19 16:30 Bi-pap 07/06/19 16:00 79 07/06/19 16:00 98.1 86 22 101/57 (72) 97 07/06/19 15:21 82 18 100 Room Air 21 78 16 94 07/06/19 15:11 78 16 94 Full Face 28 07/06/19 15:00 78 16 119/58 (78) 100 07/06/19 14:53 119/58 07/06/19 14:00 85 18 132/69 (90) 100 07/06/19 13:00 91 25 96/52 (67) 99 07/06/19 12:55 28 07/06/19 12:55 89 31 99 Full Face 28 07/06/19 12:00 98.2 88 27 97/67 (77) 96 07/06/19 12:00 85 07/06/19 12:00 Room Air 07/06/19 11:17 78 20 100 Room Air 21 77 21 97 07/06/19 11:00 81 25 118/54 (75) 98 Intake and Output 07/07/19 07/08/19 19:00 07:00 Intake Total 2091.666 ml 495 ml Output Total 2930 ml 1000 ml Balance -838.334 ml -505 ml Free Water 50 ml IV Total 1471.666 ml Tube Feeding 540 ml 495 ml Blood Product 30 ml Output Urine Total 30 ml 0 ml Stool Total 1100 ml 1000 ml Hemodialysis UF 1800 ml Labs Test 07/06/19 04:00 07/06/19 07:20 07/06/19 11:20 07/06/19 12:34 White Blood Count 33.6 K/UL (4.8-10.8) Red Blood Count 2.44 M/UL (4.70-6.10) Hemoglobin 7.6 G/DL (14.2-18.0) Hematocrit 24.6 % (42.0-52.0) Mean Corpuscular Volume 101 FL (80-99) Mean Corpuscular Hemoglobin 31.3 PG (27.0-31.0) Mean Corpuscular Hemoglobin Concent 31.1 G/DL (32.0-36.0) Red Cell Distribution Width 24.8 % (11.6-14.8) Platelet Count 182 K/UL (150-450) Mean Platelet Volume 9.0 FL (6.5-10.1) Neutrophils (%) (Auto) % (45.0-75.0) Lymphocytes (%) (Auto) % (20.0-45.0) Monocytes (%) (Auto) % (1.0-10.0) Eosinophils (%) (Auto) % (0.0-3.0) Basophils (%) (Auto) % (0.0-2.0) Differential Total Cells Counted 100 Neutrophils % (Manual) 69 % (45-75) Lymphocytes % (Manual) 5 % (20-45) Monocytes % (Manual) 6 % (1-10) Eosinophils % (Manual) 0 % (0-3) Basophils % (Manual) 0 % (0-2) Myelocytes % 1 % (0-0) Band Neutrophils 19 % (0-8) Nucleated Red Blood Cells 2 /100 WBC Platelet Estimate Adequate Platelet Morphology Normal Polychromasia 1+ Hypochromasia 2+ Anisocytosis 3+ Macrocytosis 1+ Sodium Level 152 MMOL/L (136-145) Potassium Level 2.8 MMOL/L (3.5-5.1) Chloride Level 114 MMOL/L (98-107) Carbon Dioxide Level 22 MMOL/L (21-32) Anion Gap 16 mmol/L (5-15) Blood Urea Nitrogen 51 mg/dL (7-18) Creatinine 6.9 MG/DL (0.55-1.30) Estimat Glomerular Filtration Rate 9.0 mL/min (>60) Glucose Level 159 MG/DL (74-106) Uric Acid 9.4 MG/DL (2.6-7.2) Calcium Level 8.1 MG/DL (8.5-10.1) Phosphorus Level 4.0 MG/DL (2.5-4.9) Magnesium Level 2.2 MG/DL (1.8-2.4) Total Bilirubin 34.6 MG/DL (0.2-1.0) Direct Bilirubin 28.0 MG/DL (0.0-0.3) Gamma Glutamyl Transpeptidase 187 U/L (5-85) Aspartate Amino Transf (AST/SGOT) 142 U/L (15-37) Alanine Aminotransferase (ALT/SGPT) 21 U/L (12-78) Alkaline Phosphatase 255 U/L (46-116) C-Reactive Protein, Quantitative 14.6 mg/dL (0.00-0.90) Pro-B-Type Natriuretic Peptide 3085 pg/mL (0-125) Total Protein 5.1 G/DL (6.4-8.2) Albumin 1.6 G/DL (3.4-5.0) Globulin 3.5 g/dL Albumin/Globulin Ratio 0.5 (1.0-2.7) Lactic Acid Level 2.10 mmol/L (0.4-2.0) 2.00 mmol/L (0.66-2.22) Ammonia 58 umol/L (11-32) Arterial Blood pH 7.406 (7.350-7.450) Arterial Blood Partial Pressure CO2 31.3 mmHg (35.0-45.0) Arterial Blood Partial Pressure O2 60.4 mmHg (75.0-100.0) Arterial Blood HCO3 19.2 mmol/L (22.0-26.0) Arterial Blood Oxygen Saturation 89.0 % (95-100) Arterial Blood Base Excess -4.9 (-2-2) Dave Test Positive Test 07/06/19 14:55 07/06/19 15:43 07/07/19 04:28 07/08/19 04:30 Arterial Blood pH 7.410 (7.350-7.450) Arterial Blood Partial Pressure CO2 29.6 mmHg (35.0-45.0) Arterial Blood Partial Pressure O2 82.7 mmHg (75.0-100.0) Arterial Blood HCO3 18.3 mmol/L (22.0-26.0) Arterial Blood Oxygen Saturation 95.6 % (95-100) Arterial Blood Base Excess -5.5 (-2-2) Dave Test Positive Random Vancomycin Level 18.1 ug/mL White Blood Count 32.0 K/UL (4.8-10.8) 31.9 K/UL (4.8-10.8) Red Blood Count 2.40 M/UL (4.70-6.10) 2.39 M/UL (4.70-6.10) Hemoglobin 7.4 G/DL (14.2-18.0) 7.4 G/DL (14.2-18.0) Hematocrit 24.2 % (42.0-52.0) 24.0 % (42.0-52.0) Mean Corpuscular Volume 101 FL (80-99) 100 FL (80-99) Mean Corpuscular Hemoglobin 31.1 PG (27.0-31.0) 31.1 PG (27.0-31.0) Mean Corpuscular Hemoglobin Concent 30.8 G/DL (32.0-36.0) 31.0 G/DL (32.0-36.0) Red Cell Distribution Width 24.6 % (11.6-14.8) 25.4 % (11.6-14.8) Platelet Count 166 K/UL (150-450) 145 K/UL (150-450) Mean Platelet Volume 8.3 FL (6.5-10.1) 9.6 FL (6.5-10.1) Neutrophils (%) (Auto) % (45.0-75.0) % (45.0-75.0) Lymphocytes (%) (Auto) % (20.0-45.0) % (20.0-45.0) Monocytes (%) (Auto) % (1.0-10.0) % (1.0-10.0) Eosinophils (%) (Auto) % (0.0-3.0) % (0.0-3.0) Basophils (%) (Auto) % (0.0-2.0) % (0.0-2.0) Differential Total Cells Counted 100 100 Neutrophils % (Manual) 85 % (45-75) 84 % (45-75) Lymphocytes % (Manual) 7 % (20-45) 7 % (20-45) Monocytes % (Manual) 6 % (1-10) 5 % (1-10) Eosinophils % (Manual) 0 % (0-3) 0 % (0-3) Basophils % (Manual) 1 % (0-2) 0 % (0-2) Band Neutrophils 1 % (0-8) 4 % (0-8) Platelet Estimate Adequate Decreased Platelet Morphology Normal Normal Polychromasia 1+ 1+ Hypochromasia 1+ 1+ Anisocytosis 3+ 3+ Macrocytosis 1+ 1+ Sodium Level 155 MMOL/L (136-145) 152 MMOL/L (136-145) Potassium Level 3.0 MMOL/L (3.5-5.1) 2.9 MMOL/L (3.5-5.1) Chloride Level 117 MMOL/L (98-107) 114 MMOL/L (98-107) Carbon Dioxide Level 21 MMOL/L (21-32) 22 MMOL/L (21-32) Anion Gap 17 mmol/L (5-15) 16 mmol/L (5-15) Blood Urea Nitrogen 66 mg/dL (7-18) 54 mg/dL (7-18) Creatinine 8.1 MG/DL (0.55-1.30) 7.0 MG/DL (0.55-1.30) Estimat Glomerular Filtration Rate 7.4 mL/min (>60) 8.8 mL/min (>60) Glucose Level 155 MG/DL (74-106) 119 MG/DL (74-106) Calcium Level 8.4 MG/DL (8.5-10.1) 8.0 MG/DL (8.5-10.1) Total Bilirubin 35.4 MG/DL (0.2-1.0) Direct Bilirubin 28.9 MG/DL (0.0-0.3) Aspartate Amino Transf (AST/SGOT) 119 U/L (15-37) Alanine Aminotransferase (ALT/SGPT) 18 U/L (12-78) Alkaline Phosphatase 247 U/L (46-116) Ammonia 59 umol/L (11-32) 62 umol/L (11-32) Total Protein 5.0 G/DL (6.4-8.2) Albumin 1.6 G/DL (3.4-5.0) Globulin 3.4 g/dL Albumin/Globulin Ratio 0.5 (1.0-2.7) Height (Feet): 5 Height (Inches): 9.00 Weight (Pounds): 225 Objective Physical Exam: Vitals: reviewed General Appearance: NAD HEENT: normocephalic, atraumatic ++ icterus jaundice, ng+ Neck: non-tender, normal alignment Respiratory/Chest: normal breath sounds bilaterally++ nc, BIPAP+ Cardiovascular/Chest: normal peripheral pulses, normal rate Abdomen: normal bowel sounds, soft,+ peg Extremities: normal range of motion Marty Kebede MD Jul 08, 2019 10:51
--- NOTE | 2019-07-08 11:50 | Diagnostic Imaging Report ---
EXAM: XR Abdomen, 2 Views CLINICAL HISTORY: NGT TECHNIQUE: Frontal view of the abdomen pelvis with upright view of the abdomen. COMPARISON: No relevant prior studies available. FINDINGS: Intraperitoneal space: No evidence of intraperitoneal free air. Gastrointestinal tract: Diffuse distention of colonic and small bowel loops. Bones joints: Visualized skeletal structures appear unremarkable. Tubes, lines and devices: Nasogastric tube tip in expected region of the stomach body. IMPRESSION: 1. Nasogastric tube tip in expected region of the stomach body. 2. Diffuse distention of colonic and small bowel loops.
[2019-07-08] MEDS: Meropenem 500 MG in NS 55 ML IVPB SCH (12:02)
--- NOTE | 2019-07-08 12:15 | Cardiology Progress Note ---
Assessment/Plan Status: stable Assessment/Plan Assessment/Plan Assessment/Plan 1. Sinus tach due to alcohol withdrawal and hepatic encephalopathy. No SVT or atrial fibrillation. EF 55% 2. Cirrhosis. On Lactulose . S/P paracentesis 3. Hypotension BP 80 better after albumin Off and on needs Dopamine 4. Hepatorenal syndrome. Fu . S/P Carrillo Catheter and HD 5. Hypokalemia. 6. Alcohol intoxication. Thiamine, folate, and Librium. 7. Hepatic encephalopathy Subjective Cardiovascular: Reports: no symptoms Respiratory: Reports: no symptoms Gastrointestinal/Abdominal: Reports: no symptoms Genitourinary: Reports: no symptoms Subjective Coverage for [place] No acute events, Tube feeds held, does not keep oxygen on , plan for HD tomorrow , remains somnolent Objective Last 24 Hour Vital Signs Date Time Temp Pulse Resp B/P (MAP) Pulse Ox O2 Delivery O2 Flow Rate FiO2 07/08/19 12:00 97.1 80 19 98/40 (59) 97 07/08/19 12:00 Nasal Cannula 3.0 07/08/19 11:16 80 20 100 Nasal Cannula 3.0 32 80 20 99 07/08/19 11:00 85 24 94/53 (67) 99 07/08/19 10:00 82 18 107/45 (65) 100 07/08/19 09:00 79 22 102/39 (60) 98 07/08/19 08:00 97.6 80 25 92/49 (63) 97 07/08/19 08:00 Venturi Mask 30.0 07/08/19 08:00 81 07/08/19 07:20 78 20 100 Venturi Mask 30 78 20 99 07/08/19 07:20 99 Venturi Mask 4.0 30 07/08/19 07:00 78 20 94/47 (63) 100 07/08/19 06:00 79 21 93/44 (60) 100 07/08/19 05:01 81 26 100 Full Face 28 07/08/19 05:00 28 07/08/19 05:00 75 105/47 (66) 07/08/19 04:00 81 07/08/19 04:00 Bi-pap 07/08/19 04:00 97.3 79 23 132/40 (70) 100 07/08/19 03:08 77 24 100 Full Face 28 07/08/19 03:03 77 23 100 Bi-Pap 28 79 28 100 07/08/19 03:00 76 22 97/44 (61) 100 07/08/19 02:00 78 20 94/42 (59) 100 07/08/19 01:15 79 23 100 Facial 28 07/08/19 01:00 78 20 94/40 (58) 100 07/08/19 00:00 97.3 77 24 103/40 (61) 100 07/08/19 00:00 28 07/08/19 00:00 Bi-pap 07/08/19 00:00 79 07/07/19 23:00 82 26 85/41 (56) 98 07/07/19 22:44 82 25 100 Bi-Pap 28 77 22 99 07/07/19 22:00 82 29 96/42 (60) 98 07/07/19 21:39 82 30 99 Facial 28 07/07/19 21:00 28 07/07/19 21:00 83 30 96/35 (55) 98 07/07/19 20:00 97.7 84 27 90/42 (58) 98 07/07/19 20:00 Bi-pap 07/07/19 20:00 86 07/07/19 19:20 94/44 07/07/19 19:00 86 24 94/44 (61) 97 07/07/19 18:45 99 Venturi Mask 4.0 30 07/07/19 18:42 80 22 100 Venturi Mask 4.0 30 81 19 99 07/07/19 18:00 80 23 100/44 (62) 100 07/07/19 17:00 87 28 95/43 (60) 95 07/07/19 16:00 97.6 85 21 101/47 (65) 96 07/07/19 16:00 Bi-pap 07/07/19 16:00 76 07/07/19 15:05 83 22 95 Nasal Cannula 2.0 28 07/07/19 15:00 81 23 108/47 (67) 100 07/07/19 14:55 78 21 96 07/07/19 14:53 108/47 07/07/19 14:00 81 23 93/42 (59) 99 07/07/19 13:00 80 20 86/44 (58) 100 General Appearance: lethargic EENT: PERRL/EOMI, normal ENT inspection, TMs normal, pharynx normal, scleral icterus, pale conjunctivae Neck: non-tender, normal alignment, supple, normal inspection, JVD Rhythm: NSR Cardiovascular: normal peripheral pulses, normal rate, regular rhythm Respiratory/Chest: chest wall non-tender, lungs clear, normal breath sounds, no respiratory distress Abdomen: no mass, hypoactive bowel sounds, hepatomegaly Extremities: normal range of motion, non-tender, normal inspection 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, no motor/sensory deficits Intake and Output 07/07/19 07/08/19 18:59 06:59 Intake Total 2091.666 ml 495 ml Output Total 2930 ml 1000 ml Balance -838.334 ml -505 ml Free Water 50 ml IV Total 1471.666 ml Tube Feeding 540 ml 495 ml Blood Product 30 ml Output Urine Total 30 ml 0 ml Stool Total 1100 ml 1000 ml Hemodialysis UF 1800 ml Laboratory Tests Test 07/08/19 04:30 White Blood Count 31.9 K/UL (4.8-10.8) *H Red Blood Count 2.39 M/UL (4.70-6.10) L Hemoglobin 7.4 G/DL (14.2-18.0) L Hematocrit 24.0 % (42.0-52.0) L Mean Corpuscular Volume 100 FL (80-99) H Mean Corpuscular Hemoglobin 31.1 PG (27.0-31.0) H Mean Corpuscular Hemoglobin Concent 31.0 G/DL (32.0-36.0) L Red Cell Distribution Width 25.4 % (11.6-14.8) H Platelet Count 145 K/UL (150-450) L Mean Platelet Volume 9.6 FL (6.5-10.1) Neutrophils (%) (Auto) % (45.0-75.0) Lymphocytes (%) (Auto) % (20.0-45.0) Monocytes (%) (Auto) % (1.0-10.0) Eosinophils (%) (Auto) % (0.0-3.0) Basophils (%) (Auto) % (0.0-2.0) Differential Total Cells Counted 100 Neutrophils % (Manual) 84 % (45-75) H Lymphocytes % (Manual) 7 % (20-45) L Monocytes % (Manual) 5 % (1-10) Eosinophils % (Manual) 0 % (0-3) Basophils % (Manual) 0 % (0-2) Band Neutrophils 4 % (0-8) Platelet Estimate Decreased L Platelet Morphology Normal Polychromasia 1+ Hypochromasia 1+ Anisocytosis 3+ Macrocytosis 1+ Sodium Level 152 MMOL/L (136-145) H Potassium Level 2.9 MMOL/L (3.5-5.1) L Chloride Level 114 MMOL/L (98-107) H Carbon Dioxide Level 22 MMOL/L (21-32) Anion Gap 16 mmol/L (5-15) H Blood Urea Nitrogen 54 mg/dL (7-18) H Creatinine 7.0 MG/DL (0.55-1.30) H Estimat Glomerular Filtration Rate 8.8 mL/min (>60) Glucose Level 119 MG/DL (74-106) H Calcium Level 8.0 MG/DL (8.5-10.1) L Ammonia 62 umol/L (11-32) H Microbiology Date/Time Source Procedure Growth Status 07/06/19 14:55 Blood Blood Culture - Preliminary NO GROWTH AFTER 24 HOURS Resulted 07/06/19 14:20 Blood Blood Culture - Preliminary NO GROWTH AFTER 24 HOURS Resulted Quang Espinoza MD Jul 08, 2019 12:15
--- NOTE | 2019-07-08 12:33 | Infectious Diseases Prog Note ---
Assessment/Plan Assessment/Plan IMPRESSION: 1. Sepsis. new fever, increase in WBC 2. Systemic inflammatory response syndrome. 3. Tachycardia. 4. Leukocytosis. 5. colitis, 6.Alcoholic pancreatitis, 7.Cirrhosis of liver, 8. Acute renal failure likely hepatorenal syndrome, - ESRD 9.Anemia, 10. thrombocytopenia, 11.hypocalcemia, 12.hypomagnesemia, corrected 13 hypokalemia, corrected 14, Alcohol withdrawal. 15.Metabolic encephalopathy 16. Hypophosphatemia 17. Hypernatremia 18. Hypoxic respiratory failure RECOMMENDATION: continue Vancomycin & Meropenem will f/u cultures Poor prognosis Subjective ROS Limited/Unobtainable: Yes Neurologic: Reports: other - more alert today Allergies: Coded Allergies: No Known Allergies (Unverified , 06/20/19) Objective Vital Signs Last 24 Hour Vital Signs Date Time Temp Pulse Resp B/P (MAP) Pulse Ox O2 Delivery O2 Flow Rate FiO2 07/08/19 12:00 97.1 80 19 98/40 (59) 97 07/08/19 12:00 Nasal Cannula 3.0 07/08/19 11:16 80 20 100 Nasal Cannula 3.0 32 80 20 99 07/08/19 11:00 85 24 94/53 (67) 99 07/08/19 10:00 82 18 107/45 (65) 100 07/08/19 09:00 79 22 102/39 (60) 98 07/08/19 08:00 97.6 80 25 92/49 (63) 97 07/08/19 08:00 Venturi Mask 30.0 07/08/19 08:00 81 07/08/19 07:20 78 20 100 Venturi Mask 30 78 20 99 07/08/19 07:20 99 Venturi Mask 4.0 30 07/08/19 07:00 78 20 94/47 (63) 100 07/08/19 06:00 79 21 93/44 (60) 100 07/08/19 05:01 81 26 100 Full Face 28 07/08/19 05:00 28 07/08/19 05:00 75 105/47 (66) 07/08/19 04:00 81 07/08/19 04:00 Bi-pap 07/08/19 04:00 97.3 79 23 132/40 (70) 100 07/08/19 03:08 77 24 100 Full Face 28 07/08/19 03:03 77 23 100 Bi-Pap 28 79 28 100 07/08/19 03:00 76 22 97/44 (61) 100 07/08/19 02:00 78 20 94/42 (59) 100 07/08/19 01:15 79 23 100 Facial 28 07/08/19 01:00 78 20 94/40 (58) 100 07/08/19 00:00 97.3 77 24 103/40 (61) 100 07/08/19 00:00 28 07/08/19 00:00 Bi-pap 07/08/19 00:00 79 07/07/19 23:00 82 26 85/41 (56) 98 07/07/19 22:44 82 25 100 Bi-Pap 28 77 22 99 07/07/19 22:00 82 29 96/42 (60) 98 07/07/19 21:39 82 30 99 Facial 28 07/07/19 21:00 28 07/07/19 21:00 83 30 96/35 (55) 98 07/07/19 20:00 97.7 84 27 90/42 (58) 98 07/07/19 20:00 Bi-pap 07/07/19 20:00 86 07/07/19 19:20 94/44 07/07/19 19:00 86 24 94/44 (61) 97 07/07/19 18:45 99 Venturi Mask 4.0 30 07/07/19 18:42 80 22 100 Venturi Mask 4.0 30 81 19 99 07/07/19 18:00 80 23 100/44 (62) 100 07/07/19 17:00 87 28 95/43 (60) 95 07/07/19 16:00 97.6 85 21 101/47 (65) 96 07/07/19 16:00 Bi-pap 07/07/19 16:00 76 07/07/19 15:05 83 22 95 Nasal Cannula 2.0 28 07/07/19 15:00 81 23 108/47 (67) 100 07/07/19 14:55 78 21 96 07/07/19 14:53 108/47 07/07/19 14:00 81 23 93/42 (59) 99 07/07/19 13:00 80 20 86/44 (58) 100 Height (Feet): 5 Height (Inches): 9.00 Weight (Pounds): 225 HEENT: mucous membranes moist, other - icterus Respiratory/Chest: lungs clear Cardiovascular: normal rate, other - RIJ HD, left arm PICC line Abdomen: other - NG tube & rectal tubes Extremities: other - edema Neurologic/Psychiatric: alert, responsive Microbiology Date/Time Source Procedure Growth Status 07/06/19 14:55 Blood Blood Culture - Preliminary NO GROWTH AFTER 24 HOURS Resulted 07/06/19 14:20 Blood Blood Culture - Preliminary NO GROWTH AFTER 24 HOURS Resulted Laboratory Tests Test 07/08/19 04:30 White Blood Count 31.9 K/UL (4.8-10.8) *H Red Blood Count 2.39 M/UL (4.70-6.10) L Hemoglobin 7.4 G/DL (14.2-18.0) L Hematocrit 24.0 % (42.0-52.0) L Mean Corpuscular Volume 100 FL (80-99) H Mean Corpuscular Hemoglobin 31.1 PG (27.0-31.0) H Mean Corpuscular Hemoglobin Concent 31.0 G/DL (32.0-36.0) L Red Cell Distribution Width 25.4 % (11.6-14.8) H Platelet Count 145 K/UL (150-450) L Mean Platelet Volume 9.6 FL (6.5-10.1) Neutrophils (%) (Auto) % (45.0-75.0) Lymphocytes (%) (Auto) % (20.0-45.0) Monocytes (%) (Auto) % (1.0-10.0) Eosinophils (%) (Auto) % (0.0-3.0) Basophils (%) (Auto) % (0.0-2.0) Differential Total Cells Counted 100 Neutrophils % (Manual) 84 % (45-75) H Lymphocytes % (Manual) 7 % (20-45) L Monocytes % (Manual) 5 % (1-10) Eosinophils % (Manual) 0 % (0-3) Basophils % (Manual) 0 % (0-2) Band Neutrophils 4 % (0-8) Platelet Estimate Decreased L Platelet Morphology Normal Polychromasia 1+ Hypochromasia 1+ Anisocytosis 3+ Macrocytosis 1+ Sodium Level 152 MMOL/L (136-145) H Potassium Level 2.9 MMOL/L (3.5-5.1) L Chloride Level 114 MMOL/L (98-107) H Carbon Dioxide Level 22 MMOL/L (21-32) Anion Gap 16 mmol/L (5-15) H Blood Urea Nitrogen 54 mg/dL (7-18) H Creatinine 7.0 MG/DL (0.55-1.30) H Estimat Glomerular Filtration Rate 8.8 mL/min (>60) Glucose Level 119 MG/DL (74-106) H Calcium Level 8.0 MG/DL (8.5-10.1) L Ammonia 62 umol/L (11-32) H Current Medications Medications (Trade) Dose Ordered Sig/Gabriela Route PRN Reason Start Time Stop Time Status Last Admin Dose Admin Albuterol/ Ipratropium (Albuterol/ Ipratropium) 3 ml Q4HRT HHN 07/04/19 15:00 07/09/19 14:59 07/08/19 11:16 Chlorhexidine Gluconate (Emilie-Hex 2%) 1 applic DAILY@2000 TOPIC 06/26/19 20:00 07/26/19 19:59 07/07/19 20:35 Dopamine HCl/ Dextrose 250 ml @ 0 mls/hr Q24H IV 06/30/19 14:53 07/30/19 14:52 07/05/19 12:42 Epoetin Michael (Epoetin Michael(ESRD on dialysis)) 2,000 unit SUBQ 07/02/19 21:00 08/01/19 20:59 07/06/19 20:31 Epoetin Michael (Epoetin Michael(ESRD on dialysis)) 3,000 unit SUBQ 07/02/19 21:00 08/01/19 20:59 07/06/19 20:31 Lactulose (Cephulac) 30 gm FOUR TIMES A DAY NG 07/01/19 09:00 07/20/19 12:59 07/08/19 12:01 Meropenem 500 mg/ Sodium Chloride 55 ml @ 110 mls/hr Q24H IVPB 07/05/19 12:00 07/10/19 11:59 07/08/19 12:02 Norepinephrine Bitartrate 4 mg/ Dextrose 250 ml @ 0 mls/hr Q24H IV 07/06/19 19:20 08/05/19 19:19 Pantoprazole (Protonix) 40 mg EVERY 12 HOURS IVP 06/21/19 21:00 07/20/19 20:59 07/08/19 08:34 Vancomycin HCl (Vanco rx to dose) 1 ea DAILY PRN MISC Per rx protocol 07/05/19 10:45 08/04/19 10:44 Ilia Chakraborty MD Jul 08, 2019 12:33
[2019-07-08] MEDS: DOPamine 400mg/250ml 250 ML IV SCH (13:31)
--- NOTE | 2019-07-08 14:45 | Pulmonolgy Critical Care Note ---
Critical Care - Asmt/Plan Assessment/Plan: Pulmonary CCM Progress Note HPI This is a 39-year-old male who is an alcoholic with significant fatty liver on abdominal CT and alcoholic hepatitis, liver failure c/b multiorgan failure. He has been drinking heavily for 3 months straight, having stopped drinking [employer]. Noted to have Hepatic Encephalopathy and Hepatorenal Syndrome. No bleeding. Noted to have significant hypokalemia and acidosis, now on HD, s/ p Paracentesis previously On NC, BiPAP PRN, NGT, on Lactulose On Hemodialysis for worsening acidosis, uremia Remains confused, more interactive today BP stable, Midodrine, PRN levophed to maintain BP, for HD tomorrow Allergies: No Known Allergies Past Medical History: Alcohol abuse All Other Systems: negative except mentioned in HPI Physical Exam Vital Signs Noted General Appearance: Jaundiced, awake Head: normocephalic, atraumatic, HD catheter Eyes: bilateral eye PERRL, bilateral eye EOMI, bilateral eye scleral icterus ENT: moist mm Neck: no masses, no LN Respiratory: chest non-tender, lungs clear, normal breath sounds Cardiovascular: regular rate, rhythm, Normal HS1, HS2, no murmur, tachycardia Gastrointestinal: Obese, hepatomegaly, some tenderness RUQ, normal bowel sounds , no mass, no rebound Musculoskeletal: moves all limbs Neurologic: responds to commands, awake Skin: jaundiced, moderate edema Impression: Acute alcoholic intoxication Severe Sepsis Alcoholic Hepatitis Possible Cirrhosis Hepatorenal syndrome - worsening renal function - on HD Multiorgan Failure Extremelt poor prognosis Possible Portal Hypertension Hypernatremia Pancreatitis, alcoholic, acute Anemia Plan ICU management NPO except meds/NGT feeds IV antibiotics per ID Aspiration precautions BiPAP PRN NC O2 GI/Renal following HD per Nephrology Pressors PRN Transfuse PRN Thiamine Monitor labs Adjust FIO2 - sats 90-96% Patient has extremely poor prognosis Ongoing attempts with family discussions wrt possible DNR/DNI status Labs: noted EKG: Rate: tachycardiac Rhythm: NSR ST Segments: other - NSST changes Chest X-Ray: no significant change, hypoventilatory exam, no consolidation, no effusion, no pneumothorax, no acute cardiopulmonary disease CT abdomen pelvis: Severely enlarged liver and fatty liver. Mild ascites. Critical Care - Objective Last 24 Hour Vital Signs Date Time Temp Pulse Resp B/P (MAP) Pulse Ox O2 Delivery O2 Flow Rate FiO2 07/08/19 14:00 78 22 98/44 (62) 98 07/08/19 13:00 78 21 93/44 (60) 98 07/08/19 12:00 80 07/08/19 12:00 97.1 80 19 98/40 (59) 97 07/08/19 12:00 Nasal Cannula 3.0 07/08/19 11:16 80 20 100 Nasal Cannula 3.0 32 80 20 99 07/08/19 11:00 85 24 94/53 (67) 99 07/08/19 10:00 82 18 107/45 (65) 100 07/08/19 09:00 79 22 102/39 (60) 98 07/08/19 08:00 97.6 80 25 92/49 (63) 97 07/08/19 08:00 Venturi Mask 30.0 07/08/19 08:00 83 07/08/19 07:20 78 20 100 Venturi Mask 30 78 20 99 07/08/19 07:20 99 Venturi Mask 4.0 30 07/08/19 07:00 78 20 94/47 (63) 100 07/08/19 06:00 79 21 93/44 (60) 100 07/08/19 05:01 81 26 100 Full Face 28 07/08/19 05:00 28 07/08/19 05:00 75 105/47 (66) 07/08/19 04:00 81 07/08/19 04:00 Bi-pap 07/08/19 04:00 97.3 79 23 132/40 (70) 100 07/08/19 03:08 77 24 100 Full Face 28 07/08/19 03:03 77 23 100 Bi-Pap 28 79 28 100 07/08/19 03:00 76 22 97/44 (61) 100 07/08/19 02:00 78 20 94/42 (59) 100 07/08/19 01:15 79 23 100 Facial 28 07/08/19 01:00 78 20 94/40 (58) 100 07/08/19 00:00 97.3 77 24 103/40 (61) 100 07/08/19 00:00 28 07/08/19 00:00 Bi-pap 07/08/19 00:00 79 07/07/19 23:00 82 26 85/41 (56) 98 07/07/19 22:44 82 25 100 Bi-Pap 28 77 22 99 07/07/19 22:00 82 29 96/42 (60) 98 07/07/19 21:39 82 30 99 Facial 28 07/07/19 21:00 28 07/07/19 21:00 83 30 96/35 (55) 98 07/07/19 20:00 97.7 84 27 90/42 (58) 98 07/07/19 20:00 Bi-pap 07/07/19 20:00 86 07/07/19 19:20 94/44 07/07/19 19:00 86 24 94/44 (61) 97 07/07/19 18:45 99 Venturi Mask 4.0 30 07/07/19 18:42 80 22 100 Venturi Mask 4.0 30 81 19 99 07/07/19 18:00 80 23 100/44 (62) 100 07/07/19 17:00 87 28 95/43 (60) 95 07/07/19 16:00 97.6 85 21 101/47 (65) 96 07/07/19 16:00 Bi-pap 07/07/19 16:00 76 07/07/19 15:05 83 22 95 Nasal Cannula 2.0 28 07/07/19 15:00 81 23 108/47 (67) 100 07/07/19 14:55 78 21 96 07/07/19 14:53 108/47 Micro: Microbiology Date/Time Source Procedure Growth Status 07/06/19 14:55 Blood Blood Culture - Preliminary NO GROWTH AFTER 24 HOURS Resulted 07/06/19 14:20 Blood Blood Culture - Preliminary NO GROWTH AFTER 24 HOURS Resulted Critical Care - Subjective ROS Limited/Unobtainable: No FI02: 30 Vent Support Mode: BiLevel Sputum Amount: None Tube Feeding Amount: 45 I&O: Intake and Output 07/07/19 07/08/19 18:59 06:59 Intake Total 2091.666 ml 495 ml Output Total 2930 ml 1000 ml Balance -838.334 ml -505 ml Free Water 50 ml IV Total 1471.666 ml Tube Feeding 540 ml 495 ml Blood Product 30 ml Output Urine Total 30 ml 0 ml Stool Total 1100 ml 1000 ml Hemodialysis UF 1800 ml Quang Domingo MD Jul 08, 2019 14:45
[2019-07-08] MEDS: Dyna-Hex 2% Top Sol 2oz TOPIC SCH (20:20)
--- NOTE | 2019-07-08 20:55 | General Progress Note ---
Assessment/Plan Problem List: (1) Anemia ICD Codes: D64.9 - Anemia, unspecified SNOMED: 606225586 Qualifiers: Qualified Codes: D64.9 - Anemia, unspecified (2) Acute alcoholic intoxication ICD Codes: F10.929 - Alcohol use, unspecified with intoxication, unspecified SNOMED: 72568933, 2571612 Qualifiers: Qualified Codes: F10.920 - Alcohol use, unspecified with intoxication, uncomplicated (3) End-stage liver disease ICD Codes: K72.90 - Hepatic failure, unspecified without coma SNOMED: 577183981 (4) Hepatorenal syndrome ICD Codes: K76.7 - Hepatorenal syndrome SNOMED: 73962254, 2919892 (5) Pancreatitis, alcoholic, acute ICD Codes: K85.20 - Alcohol induced acute pancreatitis without necrosis or infection SNOMED: 357526693, 4205777 Qualifiers: Qualified Codes: K85.20 - Alcohol induced acute pancreatitis without necrosis or infection (6) Respiratory failure ICD Codes: J96.90 - Respiratory failure, unspecified, unspecified whether with hypoxia or hypercapnia SNOMED: 399965477 Status: stable Assessment/Plan: delirious at times encephalopathy metabolic malnutrition etoh cirhossis favor comfort care elevated lft s/p paracentesis Subjective ROS Limited/Unobtainable: Yes Allergies: Coded Allergies: No Known Allergies (Unverified , 06/20/19) Objective Last 24 Hour Vital Signs Date Time Temp Pulse Resp B/P (MAP) Pulse Ox O2 Delivery O2 Flow Rate FiO2 07/08/19 20:00 98.3 86 31 108/47 (67) 100 07/08/19 20:00 Nasal Cannula 3.0 07/08/19 20:00 85 07/08/19 19:28 100 Nasal Cannula 2.0 28 07/08/19 19:28 78 20 100 Nasal Cannula 2.0 28 78 20 99 07/08/19 19:20 108/47 07/08/19 19:00 83 22 92/61 (71) 98 07/08/19 18:00 85 26 105/43 (63) 98 07/08/19 17:00 84 24 102/44 (63) 99 07/08/19 16:00 97.9 84 24 97/47 (64) 99 07/08/19 16:00 Nasal Cannula 3.0 07/08/19 16:00 85 07/08/19 15:19 79 20 100 Nasal Cannula 3.0 32 80 20 99 07/08/19 15:00 79 23 102/42 (62) 98 07/08/19 14:00 78 22 98/44 (62) 98 07/08/19 13:00 78 21 93/44 (60) 98 07/08/19 12:00 80 07/08/19 12:00 97.1 80 19 98/40 (59) 97 07/08/19 12:00 Nasal Cannula 3.0 07/08/19 11:16 80 20 100 Nasal Cannula 3.0 32 80 20 99 07/08/19 11:00 85 24 94/53 (67) 99 07/08/19 10:00 82 18 107/45 (65) 100 07/08/19 09:00 79 22 102/39 (60) 98 07/08/19 08:00 97.6 80 25 92/49 (63) 97 07/08/19 08:00 Venturi Mask 30.0 07/08/19 08:00 83 07/08/19 07:20 78 20 100 Venturi Mask 30 78 20 99 07/08/19 07:20 99 Venturi Mask 4.0 30 07/08/19 07:00 78 20 94/47 (63) 100 07/08/19 06:00 79 21 93/44 (60) 100 07/08/19 05:01 81 26 100 Full Face 28 07/08/19 05:00 28 07/08/19 05:00 75 105/47 (66) 07/08/19 04:00 81 07/08/19 04:00 Bi-pap 07/08/19 04:00 97.3 79 23 132/40 (70) 100 07/08/19 03:08 77 24 100 Full Face 28 07/08/19 03:03 77 23 100 Bi-Pap 28 79 28 100 07/08/19 03:00 76 22 97/44 (61) 100 07/08/19 02:00 78 20 94/42 (59) 100 07/08/19 01:15 79 23 100 Facial 28 07/08/19 01:00 78 20 94/40 (58) 100 07/08/19 00:00 97.3 77 24 103/40 (61) 100 07/08/19 00:00 28 07/08/19 00:00 Bi-pap 07/08/19 00:00 79 07/07/19 23:00 82 26 85/41 (56) 98 07/07/19 22:44 82 25 100 Bi-Pap 28 77 22 99 07/07/19 22:00 82 29 96/42 (60) 98 07/07/19 21:39 82 30 99 Facial 28 07/07/19 21:00 28 07/07/19 21:00 83 30 96/35 (55) 98 Intake and Output 07/07/19 07/08/19 19:00 07:00 Intake Total 2091.666 ml 495 ml Output Total 2930 ml 1000 ml Balance -838.334 ml -505 ml Free Water 50 ml IV Total 1471.666 ml Tube Feeding 540 ml 495 ml Blood Product 30 ml Output Urine Total 30 ml 0 ml Stool Total 1100 ml 1000 ml Hemodialysis UF 1800 ml Laboratory Tests 07/08/19 04:30: White Blood Count 31.9*H, Red Blood Count 2.39L, Hemoglobin 7.4L, Hematocrit 24.0L, Mean Corpuscular Volume 100H, Mean Corpuscular Hemoglobin 31.1H, Mean Corpuscular Hemoglobin Concent 31.0L, Red Cell Distribution Width 25.4H, Platelet Count 145L, Mean Platelet Volume 9.6, Neutrophils (%) (Auto) , Lymphocytes (%) (Auto) , Monocytes (%) (Auto) , Eosinophils (%) (Auto) , Basophils (%) (Auto) , Differential Total Cells Counted 100, Neutrophils % ( Manual) 84H, Lymphocytes % (Manual) 7L, Monocytes % (Manual) 5, Eosinophils % ( Manual) 0, Basophils % (Manual) 0, Band Neutrophils 4, Platelet Estimate DecreasedL, Platelet Morphology Normal, Polychromasia 1+, Hypochromasia 1+, Anisocytosis 3+, Macrocytosis 1+, Sodium Level 152H, Potassium Level 2.9L, Chloride Level 114H, Carbon Dioxide Level 22, Anion Gap 16H, Blood Urea Nitrogen 54H, Creatinine 7.0H, Estimat Glomerular Filtration Rate 8.8, Glucose Level 119H, Calcium Level 8.0L, Ammonia 62H Height (Feet): 5 Height (Inches): 9.00 Weight (Pounds): 225 Cardiovascular: normal rate Abdomen: tender Deejay Saldaañ MD Jul 08, 2019 20:55
[2019-07-09] VITALS (24 sets, daily range): BP systolic 81–120; BP diastolic 38–78
[2019-07-09] MEDS: Albuterol/Ipratropium 3ml neb HHN SCH ×6 (03:00→23:39)
[2019-07-09 04:36] LABS: HEMATOCRIT 25.6 % (42.0-52.0); HEMOGLOBIN 8.1 G/DL (14.2-18.0); MEAN CORPUSCULAR VOLUME 99 FL (80-99); PLATELET COUNT 141 K/UL (150-450); RED BLOOD COUNT 2.59 M/UL (4.70-6.10); RED CELL DISTRIBUTION WIDTH 25.7 % (11.6-14.8)
[2019-07-09 04:46] LABS: WHITE BLOOD COUNT 33.1 K/UL (4.8-10.8)
[2019-07-09 07:11] LABS: ALANINE AMINOTRANSFERASE 20 U/L (12-78); ALBUMIN 1.8 G/DL (3.4-5.0); ALBUMIN/GLOBULIN RATIO 0.6 (1.0-2.7); ANION GAP 15 mmol/L (5-15); ASPARTATE AMINO TRANSFERASE 177 U/L (15-37); BILIRUBIN,TOTAL 35.5 MG/DL (0.2-1.0); BLOOD UREA NITROGEN 43 mg/dL (7-18); CALCIUM 7.7 MG/DL (8.5-10.1); CARBON DIOXIDE 23 MMOL/L (21-32); CHLORIDE 108 MMOL/L (98-107); CREATININE 5.8 MG/DL (0.55-1.30); SODIUM 145 MMOL/L (136-145)
[2019-07-09 08:09] LABS: ALKALINE PHOSPHATASE 237 U/L (46-116)
[2019-07-09 08:10] LABS: POTASSIUM 2.7 MMOL/L (3.5-5.1)
[2019-07-09 08:11] LABS: BILIRUBIN,DIRECT 28.3 MG/DL (0.0-0.3)
[2019-07-09 09:45] LABS: PHOSPHORUS 4.2 MG/DL (2.5-4.9)
[2019-07-09] MEDS: Lactulose 20gm/30ml UDC NG SCH ×4 (10:03→21:14)
[2019-07-09] MEDS: Pantoprazole Inj IVP SCH ×2 (10:03→21:14)
--- NOTE | 2019-07-09 10:11 | Nephrology Progress Note ---
Assessment/Plan Problem List: (1) End-stage liver disease (2) Hepatorenal syndrome (3) Pancreatitis, alcoholic, acute (4) Acute alcoholic intoxication (5) Anemia (6) Respiratory failure (7) Hypernatremia Assessment Acute alcoholic intoxication End-stage liver disease Hepatorenal syndrome Pancreatitis, alcoholic, acute Anemia Plan since still full code- will attempt dialysis I CONSIDER TREATMENT OF THIS PATIENT TO BE FUTILE correct low K per orders had HD this am- short cause BP dropped- on 06/28/19 met with Brother- Liliana zonia [employer] Brother will discuss with family regarding DNR and comfort care K and Mag and phos supplement as needed has parker NO OUTPUT has RT (rectal tube) on lactulose discussed with RN Correct lytes IV protonix lactulose Folate and Thiamin per GI transfuse per consultants Subjective ROS Limited/Unobtainable: Yes Objective Objective Last 24 Hour Vital Signs Date Time Temp Pulse Resp B/P (MAP) Pulse Ox O2 Delivery O2 Flow Rate FiO2 07/09/19 08:00 99.4 83 23 91/43 (59) 99 07/09/19 07:00 80 25 97/45 (62) 100 07/09/19 06:55 80 22 100 Nasal Cannula 2.0 28 77 22 98 07/09/19 06:55 98 Nasal Cannula 2.0 28 07/09/19 06:00 81 25 93/42 (59) 100 07/09/19 05:00 85 25 104/46 (65) 100 07/09/19 05:00 81 26 100 Full Face 28 07/09/19 04:00 85 07/09/19 04:00 98.9 84 30 89/41 (57) 100 07/09/19 04:00 Nasal Cannula 3.0 07/09/19 04:00 Nasal Cannula 3.0 07/09/19 03:00 85 30 115/47 (69) 100 07/09/19 02:00 80 26 98/47 (64) 99 07/09/19 01:25 86 28 100 Full Face 28 07/09/19 01:00 81 25 94/45 (61) 100 07/09/19 00:00 Nasal Cannula 3.0 07/09/19 00:00 83 07/09/19 00:00 98.7 80 25 99/48 (65) 100 07/08/19 23:00 81 25 104/48 (66) 100 07/08/19 22:50 85 23 100 Bi-Pap 28 83 25 100 07/08/19 22:50 86 31 100 Full Face 28 07/08/19 22:00 82 25 95/45 (62) 100 07/08/19 21:00 81 24 100/45 (63) 100 07/08/19 20:00 98.3 86 31 108/47 (67) 100 07/08/19 20:00 Nasal Cannula 3.0 07/08/19 20:00 85 07/08/19 19:28 100 Nasal Cannula 2.0 28 07/08/19 19:28 78 20 100 Nasal Cannula 2.0 28 78 20 99 07/08/19 19:20 108/47 07/08/19 19:00 83 22 92/61 (71) 98 07/08/19 18:00 85 26 105/43 (63) 98 07/08/19 17:00 84 24 102/44 (63) 99 07/08/19 16:00 97.9 84 24 97/47 (64) 99 07/08/19 16:00 Nasal Cannula 3.0 07/08/19 16:00 85 07/08/19 15:19 79 20 100 Nasal Cannula 3.0 32 80 20 99 07/08/19 15:00 79 23 102/42 (62) 98 07/08/19 14:00 78 22 98/44 (62) 98 07/08/19 13:00 78 21 93/44 (60) 98 07/08/19 12:00 80 07/08/19 12:00 97.1 80 19 98/40 (59) 97 07/08/19 12:00 Nasal Cannula 3.0 07/08/19 11:16 80 20 100 Nasal Cannula 3.0 32 80 20 99 07/08/19 11:00 85 24 94/53 (67) 99 Intake and Output 07/08/19 07/09/19 19:00 07:00 Intake Total 795 ml 150 ml Output Total 500 ml 270 ml Balance 295 ml -120 ml Free Water 270 ml 150 ml IV Total 255 ml Tube Feeding 270 ml 0 ml Output Urine Total 0 ml 60 ml Stool Total 500 ml 210 ml Laboratory Tests 07/09/19 03:35: White Blood Count 33.1*H, Red Blood Count 2.59L, Hemoglobin 8.1L, Hematocrit 25.6L, Mean Corpuscular Volume 99, Mean Corpuscular Hemoglobin 31.4H, Mean Corpuscular Hemoglobin Concent 31.7L, Red Cell Distribution Width 25.7H, Platelet Count 141L, Mean Platelet Volume 12.5H, Neutrophils (%) (Auto) , Lymphocytes (%) (Auto) , Monocytes (%) (Auto) , Eosinophils (%) (Auto) , Basophils (%) (Auto) , Differential Total Cells Counted 100, Neutrophils % ( Manual) 75, Lymphocytes % (Manual) 5L, Monocytes % (Manual) 2, Eosinophils % ( Manual) 0, Basophils % (Manual) 2, Metamyelocytes % 1H, Myelocytes % 1H, Band Neutrophils 14H, Platelet Estimate DecreasedL, Platelet Morphology Normal, Polychromasia 1+, Hypochromasia 2+, Anisocytosis 2+, Macrocytosis 1+ 07/09/19 06:20: Sodium Level 145, Potassium Level 2.7*L, Chloride Level 108H, Carbon Dioxide Level 23, Anion Gap 15, Blood Urea Nitrogen 43H, Creatinine 5.8H, Estimat Glomerular Filtration Rate 10.9, Glucose Level 118H, Calcium Level 7.7L, Phosphorus Level 4.2, Magnesium Level 2.3, Total Bilirubin 35.5H, Direct Bilirubin 28.3H, Aspartate Amino Transf (AST/SGOT) 177H, Alanine Aminotransferase (ALT/SGPT) 20, Alkaline Phosphatase 237H, Total Protein 5.0L, Albumin 1.8L, Globulin 3.2, Albumin/Globulin Ratio 0.6L Height (Feet): 5 Height (Inches): 9.00 Weight (Pounds): 229 General Appearance: no apparent distress, lethargic, confused Cardiovascular: tachycardia Respiratory/Chest: decreased breath sounds Abdomen: distended Arthur Lay MD Jul 09, 2019 10:11
--- NOTE | 2019-07-09 11:22 | GI Progress Note ---
Assessment/Plan Problems: (1) End-stage liver disease ICD Codes: K72.90 - Hepatic failure, unspecified without coma SNOMED: 123700375 (2) Pancreatitis, alcoholic, acute ICD Codes: K85.20 - Alcohol induced acute pancreatitis without necrosis or infection SNOMED: 216898036, [id number] Qualifiers: Qualified Codes: K85.20 - Alcohol induced acute pancreatitis without necrosis or infection (3) Hepatorenal syndrome ICD Codes: K76.7 - Hepatorenal syndrome SNOMED: 03993853, 5031293 (4) Acute alcoholic intoxication ICD Codes: F10.929 - Alcohol use, unspecified with intoxication, unspecified SNOMED: 64185326, 4949799 Qualifiers: Qualified Codes: F10.920 - Alcohol use, unspecified with intoxication, uncomplicated (5) Anemia ICD Codes: D64.9 - Anemia, unspecified SNOMED: 310850573 Qualifiers: Qualified Codes: D64.9 - Anemia, unspecified Status: stable Status Narrative Discussed with Dr. Esposito. Assessment/Plan MELD score is 31, poor prognosis discriminant factor 67, poor prognosis. Hold glucocorticosteroid therapy given rising white count. s/p paracentesis NPO IVF per nephrology repeat labs cont lactulose + Xifaxan s/p blood transfusion electrolyte correction The patient was seen and examined at bedside and all new and available data was reviewed in the patients chart. I agree with the above findings, impression and plan. (Patient seen earlier today. Signature stamp does not reflect patient encounter time.). - Merlin Esposito MD Subjective Subjective limited Objective Last 24 Hour Vital Signs Date Time Temp Pulse Resp B/P (MAP) Pulse Ox O2 Delivery O2 Flow Rate FiO2 07/09/19 11:04 84 24 99 Nasal Cannula 2.0 28 83 24 97 07/09/19 11:00 81 26 87/41 (56) 94 07/09/19 10:00 84 27 95/52 (66) 94 07/09/19 09:00 87 26 107/53 (71) 96 07/09/19 08:00 99.4 83 23 91/43 (59) 99 07/09/19 08:00 87 07/09/19 07:00 80 25 97/45 (62) 100 07/09/19 06:55 80 22 100 Nasal Cannula 2.0 28 77 22 98 9/16/19 06:55 98 Nasal Cannula 2.0 28 07/09/19 06:00 81 25 93/42 (59) 100 07/09/19 05:00 85 25 104/46 (65) 100 07/09/19 05:00 81 26 100 Full Face 28 07/09/19 04:00 85 07/09/19 04:00 98.9 84 30 89/41 (57) 100 07/09/19 04:00 Nasal Cannula 3.0 07/09/19 04:00 Nasal Cannula 3.0 07/09/19 03:00 85 30 115/47 (69) 100 07/09/19 02:00 80 26 98/47 (64) 99 07/09/19 01:25 86 28 100 Full Face 28 07/09/19 01:00 81 25 94/45 (61) 100 07/09/19 00:00 Nasal Cannula 3.0 07/09/19 00:00 83 07/09/19 00:00 98.7 80 25 99/48 (65) 100 07/08/19 23:00 81 25 104/48 (66) 100 07/08/19 22:50 85 23 100 Bi-Pap 28 83 25 100 07/08/19 22:50 86 31 100 Full Face 28 07/08/19 22:00 82 25 95/45 (62) 100 07/08/19 21:00 81 24 100/45 (63) 100 07/08/19 20:00 98.3 86 31 108/47 (67) 100 07/08/19 20:00 Nasal Cannula 3.0 07/08/19 20:00 85 07/08/19 19:28 100 Nasal Cannula 2.0 28 07/08/19 19:28 78 20 100 Nasal Cannula 2.0 28 78 20 99 07/08/19 19:20 108/47 07/08/19 19:00 83 22 92/61 (71) 98 07/08/19 18:00 85 26 105/43 (63) 98 07/08/19 17:00 84 24 102/44 (63) 99 07/08/19 16:00 97.9 84 24 97/47 (64) 99 07/08/19 16:00 Nasal Cannula 3.0 07/08/19 16:00 85 07/08/19 15:19 79 20 100 Nasal Cannula 3.0 32 80 20 99 07/08/19 15:00 79 23 102/42 (62) 98 07/08/19 14:00 78 22 98/44 (62) 98 07/08/19 13:00 78 21 93/44 (60) 98 07/08/19 12:00 80 07/08/19 12:00 97.1 80 19 98/40 (59) 97 07/08/19 12:00 Nasal Cannula 3.0 Intake and Output 07/08/19 07/09/19 19:00 07:00 Intake Total 795 ml 150 ml Output Total 500 ml 270 ml Balance 295 ml -120 ml Free Water 270 ml 150 ml IV Total 255 ml Tube Feeding 270 ml 0 ml Output Urine Total 0 ml 60 ml Stool Total 500 ml 210 ml Laboratory Tests Test 07/09/19 03:35 07/09/19 06:20 White Blood Count 33.1 K/UL (4.8-10.8) *H Red Blood Count 2.59 M/UL (4.70-6.10) L Hemoglobin 8.1 G/DL (14.2-18.0) L Hematocrit 25.6 % (42.0-52.0) L Mean Corpuscular Volume 99 FL (80-99) Mean Corpuscular Hemoglobin 31.4 PG (27.0-31.0) H Mean Corpuscular Hemoglobin Concent 31.7 G/DL (32.0-36.0) L Red Cell Distribution Width 25.7 % (11.6-14.8) H Platelet Count 141 K/UL (150-450) L Mean Platelet Volume 12.5 FL (6.5-10.1) H Neutrophils (%) (Auto) % (45.0-75.0) Lymphocytes (%) (Auto) % (20.0-45.0) Monocytes (%) (Auto) % (1.0-10.0) Eosinophils (%) (Auto) % (0.0-3.0) Basophils (%) (Auto) % (0.0-2.0) Differential Total Cells Counted 100 Neutrophils % (Manual) 75 % (45-75) Lymphocytes % (Manual) 5 % (20-45) L Monocytes % (Manual) 2 % (1-10) Eosinophils % (Manual) 0 % (0-3) Basophils % (Manual) 2 % (0-2) Metamyelocytes % 1 % (0-0) H Myelocytes % 1 % (0-0) H Band Neutrophils 14 % (0-8) H Platelet Estimate Decreased L Platelet Morphology Normal Polychromasia 1+ Hypochromasia 2+ Anisocytosis 2+ Macrocytosis 1+ Sodium Level 145 MMOL/L (136-145) Potassium Level 2.7 MMOL/L (3.5-5.1) *L Chloride Level 108 MMOL/L (98-107) H Carbon Dioxide Level 23 MMOL/L (21-32) Anion Gap 15 mmol/L (5-15) Blood Urea Nitrogen 43 mg/dL (7-18) H Creatinine 5.8 MG/DL (0.55-1.30) H Estimat Glomerular Filtration Rate 10.9 mL/min (>60) Glucose Level 118 MG/DL (74-106) H Calcium Level 7.7 MG/DL (8.5-10.1) L Phosphorus Level 4.2 MG/DL (2.5-4.9) Magnesium Level 2.3 MG/DL (1.8-2.4) Total Bilirubin 35.5 MG/DL (0.2-1.0) H Direct Bilirubin 28.3 MG/DL (0.0-0.3) H Aspartate Amino Transf (AST/SGOT) 177 U/L (15-37) H Alanine Aminotransferase (ALT/SGPT) 20 U/L (12-78) Alkaline Phosphatase 237 U/L (46-116) H Total Protein 5.0 G/DL (6.4-8.2) L Albumin 1.8 G/DL (3.4-5.0) L Globulin 3.2 g/dL Albumin/Globulin Ratio 0.6 (1.0-2.7) L Height (Feet): 5 Height (Inches): 9.00 Weight (Pounds): 229 General Appearance: lethargic Cardiovascular: normal rate Ayo Lamar NP Jul 09, 2019 11:21
[2019-07-09] MEDS: Meropenem 500 MG in NS 55 ML IVPB SCH (12:37)
--- NOTE | 2019-07-09 13:24 | Infectious Diseases Prog Note ---
Assessment/Plan Assessment/Plan IMPRESSION: 1. Sepsis. 2. leukocytosis 3. Tachycardia. 4. Leukocytosis. 5. colitis, 6.Alcoholic pancreatitis, 7.Cirrhosis of liver, 8. Acute renal failure likely hepatorenal syndrome, - ESRD 9.Anemia, 10. thrombocytopenia, 11.hypocalcemia, 12.hypomagnesemia, corrected 13 hypokalemia, 14, Alcohol withdrawal. 15.Metabolic encephalopathy 16. Hypophosphatemia 17. Hypernatremia 18. Hypoxic respiratory failure RECOMMENDATION: continue Vancomycin & Meropenem check lipase level will f/u cultures Poor prognosis Subjective ROS Limited/Unobtainable: Yes Constitutional: Reports: no symptoms Neurologic: Reports: confusion, other - on restraint Allergies: Coded Allergies: No Known Allergies (Unverified , 06/20/19) Objective Vital Signs Last 24 Hour Vital Signs Date Time Temp Pulse Resp B/P (MAP) Pulse Ox O2 Delivery O2 Flow Rate FiO2 07/09/19 13:00 85 32 87/44 (58) 99 07/09/19 12:00 83 07/09/19 12:00 99.6 86 29 120/42 (68) 98 07/09/19 11:04 84 24 99 Nasal Cannula 2.0 28 83 24 97 07/09/19 11:00 81 26 87/41 (56) 94 07/09/19 10:00 84 27 95/52 (66) 94 07/09/19 09:00 87 26 107/53 (71) 96 07/09/19 08:00 99.4 83 23 91/43 (59) 99 07/09/19 08:00 87 07/09/19 07:00 80 25 97/45 (62) 100 07/09/19 06:55 80 22 100 Nasal Cannula 2.0 28 77 22 98 07/09/19 06:55 98 Nasal Cannula 2.0 28 07/09/19 06:00 81 25 93/42 (59) 100 07/09/19 05:00 85 25 104/46 (65) 100 07/09/19 05:00 81 26 100 Full Face 28 07/09/19 04:00 85 07/09/19 04:00 98.9 84 30 89/41 (57) 100 07/09/19 04:00 Nasal Cannula 3.0 07/09/19 04:00 Nasal Cannula 3.0 07/09/19 03:00 85 30 115/47 (69) 100 07/09/19 02:00 80 26 98/47 (64) 99 07/09/19 01:25 86 28 100 Full Face 28 07/09/19 01:00 81 25 94/45 (61) 100 07/09/19 00:00 Nasal Cannula 3.0 07/09/19 00:00 83 07/09/19 00:00 98.7 80 25 99/48 (65) 100 07/08/19 23:00 81 25 104/48 (66) 100 07/08/19 22:50 85 23 100 Bi-Pap 28 83 25 100 07/08/19 22:50 86 31 100 Full Face 28 07/08/19 22:00 82 25 95/45 (62) 100 07/08/19 21:00 81 24 100/45 (63) 100 07/08/19 20:00 98.3 86 31 108/47 (67) 100 07/08/19 20:00 Nasal Cannula 3.0 07/08/19 20:00 85 07/08/19 19:28 100 Nasal Cannula 2.0 28 07/08/19 19:28 78 20 100 Nasal Cannula 2.0 28 78 20 99 07/08/19 19:20 108/47 07/08/19 19:00 83 22 92/61 (71) 98 07/08/19 18:00 85 26 105/43 (63) 98 07/08/19 17:00 84 24 102/44 (63) 99 07/08/19 16:00 97.9 84 24 97/47 (64) 99 07/08/19 16:00 Nasal Cannula 3.0 07/08/19 16:00 85 07/08/19 15:19 79 20 100 Nasal Cannula 3.0 32 80 20 99 07/08/19 15:00 79 23 102/42 (62) 98 07/08/19 14:00 78 22 98/44 (62) 98 Height (Feet): 5 Height (Inches): 9.00 Weight (Pounds): 229 HEENT: mucous membranes moist, other - icterus Respiratory/Chest: lungs clear, other - oxygen by nasal cannula Cardiovascular: normal rate, other - RIJ HD line, left arm PICC line Abdomen: distended Extremities: other - edema Neurologic/Psychiatric: alert, responsive Microbiology Date/Time Source Procedure Growth Status 07/06/19 14:55 Blood Blood Culture - Preliminary NO GROWTH AFTER 48 HOURS Resulted 07/06/19 14:20 Blood Blood Culture - Preliminary NO GROWTH AFTER 48 HOURS Resulted Laboratory Tests Test 07/09/19 03:35 07/09/19 06:20 White Blood Count 33.1 K/UL (4.8-10.8) *H Red Blood Count 2.59 M/UL (4.70-6.10) L Hemoglobin 8.1 G/DL (14.2-18.0) L Hematocrit 25.6 % (42.0-52.0) L Mean Corpuscular Volume 99 FL (80-99) Mean Corpuscular Hemoglobin 31.4 PG (27.0-31.0) H Mean Corpuscular Hemoglobin Concent 31.7 G/DL (32.0-36.0) L Red Cell Distribution Width 25.7 % (11.6-14.8) H Platelet Count 141 K/UL (150-450) L Mean Platelet Volume 12.5 FL (6.5-10.1) H Neutrophils (%) (Auto) % (45.0-75.0) Lymphocytes (%) (Auto) % (20.0-45.0) Monocytes (%) (Auto) % (1.0-10.0) Eosinophils (%) (Auto) % (0.0-3.0) Basophils (%) (Auto) % (0.0-2.0) Differential Total Cells Counted 100 Neutrophils % (Manual) 75 % (45-75) Lymphocytes % (Manual) 5 % (20-45) L Monocytes % (Manual) 2 % (1-10) Eosinophils % (Manual) 0 % (0-3) Basophils % (Manual) 2 % (0-2) Metamyelocytes % 1 % (0-0) H Myelocytes % 1 % (0-0) H Band Neutrophils 14 % (0-8) H Platelet Estimate Decreased L Platelet Morphology Normal Polychromasia 1+ Hypochromasia 2+ Anisocytosis 2+ Macrocytosis 1+ Sodium Level 145 MMOL/L (136-145) Potassium Level 2.7 MMOL/L (3.5-5.1) *L Chloride Level 108 MMOL/L (98-107) H Carbon Dioxide Level 23 MMOL/L (21-32) Anion Gap 15 mmol/L (5-15) Blood Urea Nitrogen 43 mg/dL (7-18) H Creatinine 5.8 MG/DL (0.55-1.30) H Estimat Glomerular Filtration Rate 10.9 mL/min (>60) Glucose Level 118 MG/DL (74-106) H Calcium Level 7.7 MG/DL (8.5-10.1) L Phosphorus Level 4.2 MG/DL (2.5-4.9) Magnesium Level 2.3 MG/DL (1.8-2.4) Total Bilirubin 35.5 MG/DL (0.2-1.0) H Direct Bilirubin 28.3 MG/DL (0.0-0.3) H Aspartate Amino Transf (AST/SGOT) 177 U/L (15-37) H Alanine Aminotransferase (ALT/SGPT) 20 U/L (12-78) Alkaline Phosphatase 237 U/L (46-116) H Total Protein 5.0 G/DL (6.4-8.2) L Albumin 1.8 G/DL (3.4-5.0) L Globulin 3.2 g/dL Albumin/Globulin Ratio 0.6 (1.0-2.7) L Current Medications Medications (Trade) Dose Ordered Sig/Gabriela Route PRN Reason Start Time Stop Time Status Last Admin Dose Admin Albuterol/ Ipratropium (Albuterol/ Ipratropium) 3 ml Q4HRT HHN 07/04/19 15:00 07/09/19 14:59 07/09/19 11:06 Chlorhexidine Gluconate (Emilie-Hex 2%) 1 applic DAILY@2000 TOPIC 06/26/19 20:00 07/26/19 19:59 07/08/19 20:20 Dopamine HCl/ Dextrose 250 ml @ 0 mls/hr Q24H IV 06/30/19 14:53 07/30/19 14:52 07/05/19 12:42 Epoetin Michael (Epoetin Michael(ESRD on dialysis)) 2,000 unit -TUE SUBQ 07/02/19 21:00 08/01/19 20:59 07/06/19 20:31 Epoetin Michael (Epoetin Michael(ESRD on dialysis)) 3,000 unit SUBQ 07/02/19 21:00 08/01/19 20:59 07/06/19 20:31 Lactulose (Cephulac) 30 gm FOUR TIMES A DAY NG 07/01/19 09:00 07/20/19 12:59 07/09/19 12:37 Meropenem 500 mg/ Sodium Chloride 55 ml @ 110 mls/hr Q24H IVPB 07/05/19 12:00 07/10/19 11:59 07/09/19 12:37 Norepinephrine Bitartrate 4 mg/ Dextrose 250 ml @ 0 mls/hr Q24H IV 07/06/19 19:20 08/05/19 19:19 Pantoprazole (Protonix) 40 mg EVERY 12 HOURS IVP 06/21/19 21:00 07/20/19 20:59 07/09/19 10:03 Potassium Chloride 100 ml @ 100 mls/hr Q1H IV 07/09/19 10:00 07/09/19 13:59 07/09/19 12:37 Vancomycin HCl (Vanco rx to dose) 1 ea DAILY PRN MISC Per rx protocol 07/05/19 10:45 08/04/19 10:44 Ilia Chakraborty MD Jul 09, 2019 13:24
--- NOTE | 2019-07-09 13:58 | Hematology/Onc Progress Note ---
Assessment/Plan Assessment/Plan Assessment and Recs: # Thrombocytopenia - potential causes multifactorial, does have a history of etoh abuse, cirrhosis of the liver, hepatosplenomegaly, portal HTN, coagulopathy noted as well, likely oscillatory pattern can be due to abx as well --> Hep panel and HIV ordered (NEG) --> US abd does show, portal htn and cirrhosis ++ --> Peripheral smear ordered to evaluate for blasts /schistocytes reviewed and is negative --> abx and other meds have been reviewed --> ok for ppx if plt >50k w/ either heparin or lovenox --> Transfuse if Plt < 20k and fever, or if Plt < 10k without fever --> plt trend 80-->97-->117-->157k->216k-->107k-->72k-->68k-->109k-->108k-->148k -->176k-->182k->141k # Anemia of chronic disease due to underlying chronic medical issues, multifactorial (myelosuprresion noted) --> Anemia workup has been reviewed, ferritin 297 --> EPOGEN HAS BEEN ORDERED WITH HD --> Hgb goal >7. Transfuse prn. --> Epogen or iron at this time is not particularly indicated --> Medications have been reviewed --> low threshold for gi evaluation in case has occult + --> hgb trend: 7.7-->8.2-->9->8.4-->8.3-->8.2-->8-->7.4->7.3-->7.7-->7.8-->7.6-- >8.1 --> serum electrophoresis shows no m-spike 06/27 # Coagulopathy due to cirrhosis --> give Vitk as needed # Leukocytosis with sepsis is on abx --> ID following, appreciate recs --> wbc trend: 17k-->13.9-->19.5-->18.7-->27.4-->33.6->32--->33 --> FLAGYL and CTX-> vanc/amish # Acute alcoholic intoxication --> etoh abuse history --> thiamine, folic acid, ivf # End-stage liver disease --> Hepatorenal syndrome r/o with renal, albumin prn # Pancreatitis, alcoholic, acute # Tachycardia # ESRD --> on had as per renal # Dvt ppx with scds given low plts # POOR PROGNOSIS The timing of this note does not necessarily reflect the time of the patient was seen. GREATLY APPRECIATE CONSULTATION. Subjective Cardiovascular: Denies: no symptoms, chest pain, edema, irregular heart rate, lightheadedness, palpitations, syncope, other Respiratory: Denies: no symptoms, cough, shortness of breath, SOB with excertion, SOB at rest, sputum, wheezing, other Gastrointestinal/Abdominal: Denies: no symptoms, abdomen distended, abdominal pain, black stools, tarry stools, blood in stool, constipated, diarrhea, difficulty swallowing, nausea, poor appetite, poor fluid intake, rectal bleeding , vomiting, other Genitourinary: Denies: no symptoms, burning, discharge, frequency, flank pain, hematuria, incontinence, pain, urgency, other Neurologic/Psychiatric: Denies: no symptoms, anxiety, depressed, emotional problems, headache, numbness, paresthesia, pre-existing deficit, seizure, tingling, tremors, weakness, other Endocrine: Denies: no symptoms, excessive sweating, flushing, intolerance to cold, intolerance to heat, increased hunger, increased thirst, increased urine, unexplained weight gain, unexplained weight loss, other Hematologic/Lymphatic: Denies: no symptoms, anemia, easy bleeding, easy bruising, adenopathy, other Allergies: Coded Allergies: No Known Allergies (Unverified , 06/20/19) Subjective 06/21: low k, ferritin 297, h/h stable, afebrile, blood transfused 06/22: in icu, on restraints, labs reviewed, no f/c, imaging reviewed 06/23: pain meds given, remains in icu, again in restraints, bili higher, inr as well, given vitk 06/25: no fevers, no chills, no bleeding, confused in bed in icu 06/26: no events to report, no bleeding, remains in icu, ++ bipap 06/27: icu,s/p paracentesis yesterday, off pressors, h/h stable 06/28: on ctx/flagyl, remains confused, no bleeding, plt is lower 06/29: no f/c, on abx, no acute events, no distress, labs reviewed 06/30: remains in the icu, on abx, no f/c, scds+ 07/02: remains in the icu, no fevers or chills, prbc ordered, as well as epo 07/03: remains in the icu, on restraints, on abx, labs noted, vs stable, no acute events 07/04: dw team and agree patient with very poor prognosis, pending bioethics consult 07/05: remains in icu, very poor prognosis, labs noted wbc 27.4, off bipap receiving repiratory tx 07/06: remains icu, very poor prognosis, wbc 33.6 trending up, no f/c, vs stable , on bipap, paracentesis pending 07/08: remains in the icu, labs look worse, though repsonding better this am, able to raise hands 07/09: no events, hd was done, no events, labs noted, no bleeding Objective Objective Current Medications Medications (Trade) Dose Ordered Sig/Gabriela Route PRN Reason Start Time Stop Time Status Last Admin Dose Admin Albuterol/ Ipratropium (Albuterol/ Ipratropium) 3 ml Q4HRT HHN 07/04/19 15:00 07/09/19 14:59 07/09/19 11:06 Chlorhexidine Gluconate (Emilie-Hex 2%) 1 applic DAILY@2000 TOPIC 06/26/19 20:00 07/26/19 19:59 07/08/19 20:20 Dopamine HCl/ Dextrose 250 ml @ 0 mls/hr Q24H IV 06/30/19 14:53 07/30/19 14:52 07/05/19 12:42 Epoetin Michael (Epoetin Michael(ESRD on dialysis)) 2,000 unit TUE-TUE-TUE SUBQ 07/02/19 21:00 08/01/19 20:59 07/06/19 20:31 Epoetin Michael (Epoetin Michael(ESRD on dialysis)) 3,000 unit TUE-TUE-TUE SUBQ 07/02/19 21:00 08/01/19 20:59 07/06/19 20:31 Lactulose (Cephulac) 30 gm FOUR TIMES A DAY NG 07/01/19 09:00 07/20/19 12:59 07/09/19 12:37 Meropenem 500 mg/ Sodium Chloride 55 ml @ 110 mls/hr Q24H IVPB 07/10/19 12:00 07/15/19 11:59 Norepinephrine Bitartrate 4 mg/ Dextrose 250 ml @ 0 mls/hr Q24H IV 07/06/19 19:20 08/05/19 19:19 Pantoprazole (Protonix) 40 mg EVERY 12 HOURS IVP 06/21/19 21:00 07/20/19 20:59 07/09/19 10:03 Potassium Chloride 100 ml @ 100 mls/hr Q1H IV 07/09/19 10:00 07/09/19 13:59 07/09/19 12:37 Vancomycin HCl (Vanco rx to dose) 1 ea DAILY PRN MISC Per rx protocol 07/05/19 10:45 08/04/19 10:44 Last 24 Hour Vital Signs Date Time Temp Pulse Resp B/P (MAP) Pulse Ox O2 Delivery O2 Flow Rate FiO2 07/09/19 13:00 85 32 87/44 (58) 99 07/09/19 12:00 83 07/09/19 12:00 99.6 86 29 120/42 (68) 98 07/09/19 11:04 84 24 99 Nasal Cannula 2.0 28 83 24 97 07/09/19 11:00 81 26 87/41 (56) 94 07/09/19 10:00 84 27 95/52 (66) 94 07/09/19 09:00 87 26 107/53 (71) 96 07/09/19 08:00 99.4 83 23 91/43 (59) 99 07/09/19 08:00 87 07/09/19 07:00 80 25 97/45 (62) 100 07/09/19 06:55 80 22 100 Nasal Cannula 2.0 28 77 22 98 07/09/19 06:55 98 Nasal Cannula 2.0 28 07/09/19 06:00 81 25 93/42 (59) 100 07/09/19 05:00 85 25 104/46 (65) 100 07/09/19 05:00 81 26 100 Full Face 28 07/09/19 04:00 85 07/09/19 04:00 98.9 84 30 89/41 (57) 100 07/09/19 04:00 Nasal Cannula 3.0 07/09/19 04:00 Nasal Cannula 3.0 07/09/19 03:00 85 30 115/47 (69) 100 07/09/19 02:00 80 26 98/47 (64) 99 07/09/19 01:25 86 28 100 Full Face 28 07/09/19 01:00 81 25 94/45 (61) 100 07/09/19 00:00 Nasal Cannula 3.0 07/09/19 00:00 83 07/09/19 00:00 98.7 80 25 99/48 (65) 100 07/08/19 23:00 81 25 104/48 (66) 100 07/08/19 22:50 85 23 100 Bi-Pap 28 83 25 100 07/08/19 22:50 86 31 100 Full Face 28 07/08/19 22:00 82 25 95/45 (62) 100 07/08/19 21:00 81 24 100/45 (63) 100 07/08/19 20:00 98.3 86 31 108/47 (67) 100 07/08/19 20:00 Nasal Cannula 3.0 07/08/19 20:00 85 07/08/19 19:28 100 Nasal Cannula 2.0 28 07/08/19 19:28 78 20 100 Nasal Cannula 2.0 28 78 20 99 07/08/19 19:20 108/47 07/08/19 19:00 83 22 92/61 (71) 98 07/08/19 18:00 85 26 105/43 (63) 98 07/08/19 17:00 84 24 102/44 (63) 99 07/08/19 16:00 97.9 84 24 97/47 (64) 99 07/08/19 16:00 Nasal Cannula 3.0 07/08/19 16:00 85 07/08/19 15:19 79 20 100 Nasal Cannula 3.0 32 80 20 99 07/08/19 15:00 79 23 102/42 (62) 98 07/08/19 14:00 78 22 98/44 (62) 98 07/08/19 13:00 78 21 93/44 (60) 98 07/08/19 12:00 80 07/08/19 12:00 97.1 80 19 98/40 (59) 97 07/08/19 12:00 Nasal Cannula 3.0 07/08/19 11:16 80 20 100 Nasal Cannula 3.0 32 80 20 99 07/08/19 11:00 85 24 94/53 (67) 99 07/08/19 10:00 82 18 107/45 (65) 100 07/08/19 09:00 79 22 102/39 (60) 98 07/08/19 08:00 97.6 80 25 92/49 (63) 97 07/08/19 08:00 Venturi Mask 30.0 07/08/19 08:00 83 07/08/19 07:20 78 20 100 Venturi Mask 30 78 20 99 07/08/19 07:20 99 Venturi Mask 4.0 30 07/08/19 07:00 78 20 94/47 (63) 100 07/08/19 06:00 79 21 93/44 (60) 100 07/08/19 05:01 81 26 100 Full Face 28 07/08/19 05:00 28 07/08/19 05:00 75 105/47 (66) 07/08/19 04:00 81 07/08/19 04:00 Bi-pap 07/08/19 04:00 97.3 79 23 132/40 (70) 100 07/08/19 03:08 77 24 100 Full Face 28 07/08/19 03:03 77 23 100 Bi-Pap 28 79 28 100 07/08/19 03:00 76 22 97/44 (61) 100 07/08/19 02:00 78 20 94/42 (59) 100 07/08/19 01:15 79 23 100 Facial 28 07/08/19 01:00 78 20 94/40 (58) 100 07/08/19 00:00 97.3 77 24 103/40 (61) 100 07/08/19 00:00 28 07/08/19 00:00 Bi-pap 07/08/19 00:00 79 07/07/19 23:00 82 26 85/41 (56) 98 07/07/19 22:44 82 25 100 Bi-Pap 28 77 22 99 07/07/19 22:00 82 29 96/42 (60) 98 07/07/19 21:39 82 30 99 Facial 28 07/07/19 21:00 28 07/07/19 21:00 83 30 96/35 (55) 98 07/07/19 20:00 97.7 84 27 90/42 (58) 98 07/07/19 20:00 Bi-pap 07/07/19 20:00 86 07/07/19 19:20 94/44 07/07/19 19:00 86 24 94/44 (61) 97 07/07/19 18:45 99 Venturi Mask 4.0 30 07/07/19 18:42 80 22 100 Venturi Mask 4.0 30 81 19 99 07/07/19 18:00 80 23 100/44 (62) 100 07/07/19 17:00 87 28 95/43 (60) 95 07/07/19 16:00 97.6 85 21 101/47 (65) 96 07/07/19 16:00 Bi-pap 07/07/19 16:00 76 07/07/19 15:05 83 22 95 Nasal Cannula 2.0 28 07/07/19 15:00 81 23 108/47 (67) 100 07/07/19 14:55 78 21 96 07/07/19 14:53 108/47 07/07/19 14:00 81 23 93/42 (59) 99 Intake and Output 07/08/19 07/09/19 19:00 07:00 Intake Total 795 ml 150 ml Output Total 500 ml 270 ml Balance 295 ml -120 ml Free Water 270 ml 150 ml IV Total 255 ml Tube Feeding 270 ml 0 ml Output Urine Total 0 ml 60 ml Stool Total 500 ml 210 ml Labs Test 07/06/19 14:55 07/06/19 15:43 07/07/19 04:28 07/08/19 04:30 Arterial Blood pH 7.410 (7.350-7.450) Arterial Blood Partial Pressure CO2 29.6 mmHg (35.0-45.0) Arterial Blood Partial Pressure O2 82.7 mmHg (75.0-100.0) Arterial Blood HCO3 18.3 mmol/L (22.0-26.0) Arterial Blood Oxygen Saturation 95.6 % (95-100) Arterial Blood Base Excess -5.5 (-2-2) Dave Test Positive Random Vancomycin Level 18.1 ug/mL White Blood Count 32.0 K/UL (4.8-10.8) 31.9 K/UL (4.8-10.8) Red Blood Count 2.40 M/UL (4.70-6.10) 2.39 M/UL (4.70-6.10) Hemoglobin 7.4 G/DL (14.2-18.0) 7.4 G/DL (14.2-18.0) Hematocrit 24.2 % (42.0-52.0) 24.0 % (42.0-52.0) Mean Corpuscular Volume 101 FL (80-99) 100 FL (80-99) Mean Corpuscular Hemoglobin 31.1 PG (27.0-31.0) 31.1 PG (27.0-31.0) Mean Corpuscular Hemoglobin Concent 30.8 G/DL (32.0-36.0) 31.0 G/DL (32.0-36.0) Red Cell Distribution Width 24.6 % (11.6-14.8) 25.4 % (11.6-14.8) Platelet Count 166 K/UL (150-450) 145 K/UL (150-450) Mean Platelet Volume 8.3 FL (6.5-10.1) 9.6 FL (6.5-10.1) Neutrophils (%) (Auto) % (45.0-75.0) % (45.0-75.0) Lymphocytes (%) (Auto) % (20.0-45.0) % (20.0-45.0) Monocytes (%) (Auto) % (1.0-10.0) % (1.0-10.0) Eosinophils (%) (Auto) % (0.0-3.0) % (0.0-3.0) Basophils (%) (Auto) % (0.0-2.0) % (0.0-2.0) Differential Total Cells Counted 100 100 Neutrophils % (Manual) 85 % (45-75) 84 % (45-75) Lymphocytes % (Manual) 7 % (20-45) 7 % (20-45) Monocytes % (Manual) 6 % (1-10) 5 % (1-10) Eosinophils % (Manual) 0 % (0-3) 0 % (0-3) Basophils % (Manual) 1 % (0-2) 0 % (0-2) Band Neutrophils 1 % (0-8) 4 % (0-8) Platelet Estimate Adequate Decreased Platelet Morphology Normal Normal Polychromasia 1+ 1+ Hypochromasia 1+ 1+ Anisocytosis 3+ 3+ Macrocytosis 1+ 1+ Sodium Level 155 MMOL/L (136-145) 152 MMOL/L (136-145) Potassium Level 3.0 MMOL/L (3.5-5.1) 2.9 MMOL/L (3.5-5.1) Chloride Level 117 MMOL/L (98-107) 114 MMOL/L (98-107) Carbon Dioxide Level 21 MMOL/L (21-32) 22 MMOL/L (21-32) Anion Gap 17 mmol/L (5-15) 16 mmol/L (5-15) Blood Urea Nitrogen 66 mg/dL (7-18) 54 mg/dL (7-18) Creatinine 8.1 MG/DL (0.55-1.30) 7.0 MG/DL (0.55-1.30) Estimat Glomerular Filtration Rate 7.4 mL/min (>60) 8.8 mL/min (>60) Glucose Level 155 MG/DL (74-106) 119 MG/DL (74-106) Calcium Level 8.4 MG/DL (8.5-10.1) 8.0 MG/DL (8.5-10.1) Total Bilirubin 35.4 MG/DL (0.2-1.0) Direct Bilirubin 28.9 MG/DL (0.0-0.3) Aspartate Amino Transf (AST/SGOT) 119 U/L (15-37) Alanine Aminotransferase (ALT/SGPT) 18 U/L (12-78) Alkaline Phosphatase 247 U/L (46-116) Ammonia 59 umol/L (11-32) 62 umol/L (11-32) Total Protein 5.0 G/DL (6.4-8.2) Albumin 1.6 G/DL (3.4-5.0) Globulin 3.4 g/dL Albumin/Globulin Ratio 0.5 (1.0-2.7) Test 07/09/19 03:35 07/09/19 06:20 White Blood Count 33.1 K/UL (4.8-10.8) Red Blood Count 2.59 M/UL (4.70-6.10) Hemoglobin 8.1 G/DL (14.2-18.0) Hematocrit 25.6 % (42.0-52.0) Mean Corpuscular Volume 99 FL (80-99) Mean Corpuscular Hemoglobin 31.4 PG (27.0-31.0) Mean Corpuscular Hemoglobin Concent 31.7 G/DL (32.0-36.0) Red Cell Distribution Width 25.7 % (11.6-14.8) Platelet Count 141 K/UL (150-450) Mean Platelet Volume 12.5 FL (6.5-10.1) Neutrophils (%) (Auto) % (45.0-75.0) Lymphocytes (%) (Auto) % (20.0-45.0) Monocytes (%) (Auto) % (1.0-10.0) Eosinophils (%) (Auto) % (0.0-3.0) Basophils (%) (Auto) % (0.0-2.0) Differential Total Cells Counted 100 Neutrophils % (Manual) 75 % (45-75) Lymphocytes % (Manual) 5 % (20-45) Monocytes % (Manual) 2 % (1-10) Eosinophils % (Manual) 0 % (0-3) Basophils % (Manual) 2 % (0-2) Metamyelocytes % 1 % (0-0) Myelocytes % 1 % (0-0) Band Neutrophils 14 % (0-8) Platelet Estimate Decreased Platelet Morphology Normal Polychromasia 1+ Hypochromasia 2+ Anisocytosis 2+ Macrocytosis 1+ Sodium Level 145 MMOL/L (136-145) Potassium Level 2.7 MMOL/L (3.5-5.1) Chloride Level 108 MMOL/L (98-107) Carbon Dioxide Level 23 MMOL/L (21-32) Anion Gap 15 mmol/L (5-15) Blood Urea Nitrogen 43 mg/dL (7-18) Creatinine 5.8 MG/DL (0.55-1.30) Estimat Glomerular Filtration Rate 10.9 mL/min (>60) Glucose Level 118 MG/DL (74-106) Calcium Level 7.7 MG/DL (8.5-10.1) Phosphorus Level 4.2 MG/DL (2.5-4.9) Magnesium Level 2.3 MG/DL (1.8-2.4) Total Bilirubin 35.5 MG/DL (0.2-1.0) Direct Bilirubin 28.3 MG/DL (0.0-0.3) Aspartate Amino Transf (AST/SGOT) 177 U/L (15-37) Alanine Aminotransferase (ALT/SGPT) 20 U/L (12-78) Alkaline Phosphatase 237 U/L (46-116) Total Protein 5.0 G/DL (6.4-8.2) Albumin 1.8 G/DL (3.4-5.0) Globulin 3.2 g/dL Albumin/Globulin Ratio 0.6 (1.0-2.7) Height (Feet): 5 Height (Inches): 9.00 Weight (Pounds): 229 Objective Physical Exam: Vitals: reviewed General Appearance: NAD HEENT: normocephalic, atraumatic ++ icterus jaundice, ng+ Neck: non-tender, normal alignment Respiratory/Chest: normal breath sounds bilaterally++ nc, BIPAP+ Cardiovascular/Chest: normal peripheral pulses, normal rate Abdomen: normal bowel sounds, soft,+ peg Extremities: normal range of motion Marty Kebede MD Jul 09, 2019 13:58
[2019-07-09] MEDS: DOPamine 400mg/250ml 250 ML IV SCH (14:53)
--- NOTE | 2019-07-09 15:01 | Consultation ---
History of Present Illness General Date patient seen: Jul 09, 2019 Chief Complaint: Alcohol Intoxication Present Illness HPI This is a 39-year-old male with heavy EtOH history who presented with intoxication, abnormal labs, dehydration, requiring admission to the intensive care unit [facility] and progressive care since. During hospitalization identified to have a deep tissue injury, abnormal labs, leukocytosis, abnormal LFTs, pancreatitis, abdominal distention. Surgery called to evaluate and assist with care. Patient seen, patient evaluate, chart reviewed Allergies: Coded Allergies: No Known Allergies (Unverified , 06/20/19) Patient History Limited by: medical condition History Provided By: Medical Record, PMD Healthcare decision maker Resuscitation status Full Code Advanced Directive on File No Past Medical/Surgical History Past Medical/Surgical History: (1) Anemia (2) Acute alcoholic intoxication (3) End-stage liver disease (4) Pancreatitis, alcoholic, acute (5) Hepatorenal syndrome (6) Respiratory failure (7) Hypernatremia (8) skin intergrety Review of Systems All Other Systems: negative except mentioned in HPI Physical Exam General Appearance: no apparent distress Lines, tubes and drains: other HEENT: anicteric, mucous membranes moist, carotid(s) normal, other Neck: normal inspection Respiratory/Chest: no respiratory distress, no accessory muscle use, decreased breath sounds, other Cardiovascular/Chest: regular rhythm Abdomen: soft, no organomegaly, no mass, decreased bowel sounds, distended Extremities: normal inspection Skin Exam: warm/dry Neurologic: alert Last 24 Hour Vital Signs Date Time Temp Pulse Resp B/P (MAP) Pulse Ox O2 Delivery O2 Flow Rate FiO2 07/09/19 14:00 83 27 91/59 (70) 97 07/09/19 13:00 85 32 87/44 (58) 99 07/09/19 12:00 Nasal Cannula 3.0 07/09/19 12:00 83 07/09/19 12:00 99.6 86 29 120/42 (68) 98 07/09/19 11:04 84 24 99 Nasal Cannula 2.0 28 83 24 97 07/09/19 11:00 81 26 87/41 (56) 94 07/09/19 10:00 84 27 95/52 (66) 94 07/09/19 09:00 87 26 107/53 (71) 96 07/09/19 08:00 Nasal Cannula 3.0 07/09/19 08:00 99.4 83 23 91/43 (59) 99 07/09/19 08:00 87 07/09/19 07:00 80 25 97/45 (62) 100 07/09/19 06:55 80 22 100 Nasal Cannula 2.0 28 77 22 98 07/09/19 06:55 98 Nasal Cannula 2.0 28 07/09/19 06:00 81 25 93/42 (59) 100 07/09/19 05:00 85 25 104/46 (65) 100 07/09/19 05:00 81 26 100 Full Face 28 07/09/19 04:00 85 07/09/19 04:00 98.9 84 30 89/41 (57) 100 07/09/19 04:00 Nasal Cannula 3.0 07/09/19 04:00 Nasal Cannula 3.0 07/09/19 03:00 85 30 115/47 (69) 100 07/09/19 02:00 80 26 98/47 (64) 99 07/09/19 01:25 86 28 100 Full Face 28 07/09/19 01:00 81 25 94/45 (61) 100 07/09/19 00:00 Nasal Cannula 3.0 07/09/19 00:00 83 07/09/19 00:00 98.7 80 25 99/48 (65) 100 07/08/19 23:00 81 25 104/48 (66) 100 07/08/19 22:50 85 23 100 Bi-Pap 28 83 25 100 07/08/19 22:50 86 31 100 Full Face 28 07/08/19 22:00 82 25 95/45 (62) 100 07/08/19 21:00 81 24 100/45 (63) 100 07/08/19 20:00 98.3 86 31 108/47 (67) 100 07/08/19 20:00 Nasal Cannula 3.0 07/08/19 20:00 85 07/08/19 19:28 100 Nasal Cannula 2.0 28 07/08/19 19:28 78 20 100 Nasal Cannula 2.0 28 78 20 99 07/08/19 19:20 108/47 07/08/19 19:00 83 22 92/61 (71) 98 07/08/19 18:00 85 26 105/43 (63) 98 07/08/19 17:00 84 24 102/44 (63) 99 07/08/19 16:00 97.9 84 24 97/47 (64) 99 07/08/19 16:00 Nasal Cannula 3.0 07/08/19 16:00 85 07/08/19 15:19 79 20 100 Nasal Cannula 3.0 32 80 20 99 07/08/19 15:00 79 23 102/42 (62) 98 Intake and Output 07/08/19 07/09/19 18:59 06:59 Intake Total 840 ml 150 ml Output Total 500 ml 210 ml Balance 340 ml -60 ml Free Water 270 ml 150 ml IV Total 255 ml Tube Feeding 315 ml 0 ml Output Urine Total 0 ml 0 ml Stool Total 500 ml 210 ml Laboratory Tests Test 07/09/19 03:35 07/09/19 06:20 White Blood Count 33.1 K/UL (4.8-10.8) *H Red Blood Count 2.59 M/UL (4.70-6.10) L Hemoglobin 8.1 G/DL (14.2-18.0) L Hematocrit 25.6 % (42.0-52.0) L Mean Corpuscular Volume 99 FL (80-99) Mean Corpuscular Hemoglobin 31.4 PG (27.0-31.0) H Mean Corpuscular Hemoglobin Concent 31.7 G/DL (32.0-36.0) L Red Cell Distribution Width 25.7 % (11.6-14.8) H Platelet Count 141 K/UL (150-450) L Mean Platelet Volume 12.5 FL (6.5-10.1) H Neutrophils (%) (Auto) % (45.0-75.0) Lymphocytes (%) (Auto) % (20.0-45.0) Monocytes (%) (Auto) % (1.0-10.0) Eosinophils (%) (Auto) % (0.0-3.0) Basophils (%) (Auto) % (0.0-2.0) Differential Total Cells Counted 100 Neutrophils % (Manual) 75 % (45-75) Lymphocytes % (Manual) 5 % (20-45) L Monocytes % (Manual) 2 % (1-10) Eosinophils % (Manual) 0 % (0-3) Basophils % (Manual) 2 % (0-2) Metamyelocytes % 1 % (0-0) H Myelocytes % 1 % (0-0) H Band Neutrophils 14 % (0-8) H Platelet Estimate Decreased L Platelet Morphology Normal Polychromasia 1+ Hypochromasia 2+ Anisocytosis 2+ Macrocytosis 1+ Sodium Level 145 MMOL/L (136-145) Potassium Level 2.7 MMOL/L (3.5-5.1) *L Chloride Level 108 MMOL/L (98-107) H Carbon Dioxide Level 23 MMOL/L (21-32) Anion Gap 15 mmol/L (5-15) Blood Urea Nitrogen 43 mg/dL (7-18) H Creatinine 5.8 MG/DL (0.55-1.30) H Estimat Glomerular Filtration Rate 10.9 mL/min (>60) Glucose Level 118 MG/DL (74-106) H Calcium Level 7.7 MG/DL (8.5-10.1) L Phosphorus Level 4.2 MG/DL (2.5-4.9) Magnesium Level 2.3 MG/DL (1.8-2.4) Total Bilirubin 35.5 MG/DL (0.2-1.0) H Direct Bilirubin 28.3 MG/DL (0.0-0.3) H Aspartate Amino Transf (AST/SGOT) 177 U/L (15-37) H Alanine Aminotransferase (ALT/SGPT) 20 U/L (12-78) Alkaline Phosphatase 237 U/L (46-116) H Total Protein 5.0 G/DL (6.4-8.2) L Albumin 1.8 G/DL (3.4-5.0) L Globulin 3.2 g/dL Albumin/Globulin Ratio 0.6 (1.0-2.7) L Height (Feet): 5 Height (Inches): 9.00 Weight (Pounds): 229 Medications Current Medications Medications (Trade) Dose Ordered Sig/Gabriela Route PRN Reason Start Time Stop Time Status Last Admin Dose Admin Albuterol/ Ipratropium (Albuterol/ Ipratropium) 3 ml Q4HRT HHN 07/04/19 15:00 07/09/19 14:59 07/09/19 11:06 Chlorhexidine Gluconate (Emilie-Hex 2%) 1 applic DAILY@1999 TOPIC 06/26/19 20:00 10/3/19 19:59 07/08/19 20:20 Dopamine HCl/ Dextrose 250 ml @ 0 mls/hr Q24H IV 06/30/19 14:53 07/30/19 14:52 07/05/19 12:42 Epoetin Michael (Epoetin Michael(ESRD on dialysis)) 2,000 unit TUE-TUE-TUE SUBQ 07/02/19 21:00 08/01/19 20:59 07/06/19 20:31 Epoetin Michael (Epoetin Michael(ESRD on dialysis)) 3,000 unit TUE-TUE-TUE SUBQ 07/02/19 21:00 08/01/19 20:59 07/06/19 20:31 Lactulose (Cephulac) 30 gm FOUR TIMES A DAY NG 07/01/19 09:00 07/20/19 12:59 07/09/19 12:37 Meropenem 500 mg/ Sodium Chloride 55 ml @ 110 mls/hr Q24H IVPB 07/10/19 12:00 07/15/19 11:59 Norepinephrine Bitartrate 4 mg/ Dextrose 250 ml @ 0 mls/hr Q24H IV 07/06/19 19:20 08/05/19 19:19 Pantoprazole (Protonix) 40 mg EVERY 12 HOURS IVP 06/21/19 21:00 07/20/19 20:59 07/09/19 10:03 Vancomycin HCl (Vanco rx to dose) 1 ea DAILY PRN MISC Per rx protocol 07/05/19 10:45 08/04/19 10:44 Assessment/Plan Problem List: (1) Pancreatitis, alcoholic, acute Assessment & Plan: Acute alcoholic pancreatitis. Levels fluctuating. Plan to check levels tomorrow Treat medically and conservatively for now If worsening leukocytosis may consider CT scan ICD Codes: K85.20 - Alcohol induced acute pancreatitis without necrosis or infection SNOMED: 996527833, 2655010 Qualifiers: Qualified Codes: K85.20 - Alcohol induced acute pancreatitis without necrosis or infection (2) Hepatorenal syndrome Assessment & Plan: Chronic liver disease acute, with acute pancreatitis and potential about her renal syndrome as noted. Currently stable treat conservatively no acute surgical intervention recommended Unfortunately invasive techniques not available at this facility Continue with ICU care and management ICD Codes: K76.7 - Hepatorenal syndrome SNOMED: 56791739, 8060739 (3) Respiratory failure ICD Codes: J96.90 - Respiratory failure, unspecified, unspecified whether with hypoxia or hypercapnia SNOMED: 776515485 (4) skin intergrety Assessment & Plan: Pt noted to have dry eschar bridge of nose. Periwound without erythema or fluctuance. Shearing noted to R and L clefts of buttocks. No exudate noted. Both heels firm and blanchable. Tx.Plan: Swab bridge of nose with Benzoin Tincture Twice Daily. Apply Moisture Barrier Paste to buttocks with each perineal care. Apply Cavilon Skin Barrier to both heels. Cover each heel with Optifoam drsg. Change every 7 days and prn. APM/MATTHEW mattress overlay. Reposition at least every 2hours or as tolerated. Off-load heels with pillow. (5) End-stage liver disease Assessment & Plan: DAILY ESTIMATED NEEDS: Needs based on Liver dz, 79kg adj 25-30 kcals/kg [id number] total kcals 1-1.5 (w/ HD 1.2-1.8) g protein/kg 79-119g (w/ HD 95-142g) g total protein Fluid per MD NUTRITION DIAGNOSIS: * Decreased sodium and fat needs r/t liver disease, cirrhosis, acute pancreatitis as evidenced by Abd US, elev T bili (33.5), pt is jaundiced, fatty liver, elev ammonia and AST, elev lipse (643), h/o etoh abuse, adm w/ elev serum alcohol. * Swallowing difficulty R/T confusion, dysphagia as evidenced by NGT feeding initiated, seen by EQUIPMENT OPERATOR w/ rec to continue nonoral feeds at this time. CURRENT TF: NEPRO @45 + PS x1 PO DIET RECOMMENDATIONS: WHEN SAFE FOR ORAL FEEDING -> LOW NA/ LOW FAT (texture per EQUIPMENT OPERATOR) ENTERAL NUTRITION RECOMMENDATIONS: MAINTAIN NEPRO W/ DIALYSIS TXT: Nepro @45ml/hr x24 hrs + PS x1 to provide 1080ml, 1944 kcal, 87g pro, 785ml free H20 * Maintain Nepro @45ml/hr as tolerated. * Add Prosource x1 pack daily to better meet est pro needs on HD * HOB over 30 degrees/ water flush per MD ADDITIONAL RECOMMENDATIONS: 1) Calibrated bedscale wt 2) Monitor for ability to start oral feeding 3) Check lytes daily 4) Rec to re-add thiamine + Folate daily, add MVI x 1 5) REC TF CHANGE TO NEPRO W/ DIALYSIS TXT 6) Monitor BGs closely, need for hypoglycemics ICD Codes: K72.90 - Hepatic failure, unspecified without coma SNOMED: 762397586 (6) Acute alcoholic intoxication ICD Codes: F10.929 - Alcohol use, unspecified with intoxication, unspecified SNOMED: 55213360, 8561802 Qualifiers: Qualified Codes: F10.920 - Alcohol use, unspecified with intoxication, uncomplicated Kennedy Ellison Jul 09, 2019 15:01
[2019-07-09] MEDS: Dyna-Hex 2% Top Sol 2oz TOPIC SCH (20:11)
[2019-07-09] MEDS: Epoetin Alfa-EPBX(ESRD on dialysis)2000 units/ml vial SUBQ SCH (21:14)
--- NOTE | 2019-07-09 21:17 | General Progress Note ---
Assessment/Plan Problem List: (1) Anemia ICD Codes: D64.9 - Anemia, unspecified SNOMED: 337807593 Qualifiers: Qualified Codes: D64.9 - Anemia, unspecified (2) Acute alcoholic intoxication ICD Codes: F10.929 - Alcohol use, unspecified with intoxication, unspecified SNOMED: 98216342, 7651170 Qualifiers: Qualified Codes: F10.920 - Alcohol use, unspecified with intoxication, uncomplicated (3) End-stage liver disease ICD Codes: K72.90 - Hepatic failure, unspecified without coma SNOMED: 739923319 (4) Hepatorenal syndrome ICD Codes: K76.7 - Hepatorenal syndrome SNOMED: 19502003, 1069722 (5) Pancreatitis, alcoholic, acute ICD Codes: K85.20 - Alcohol induced acute pancreatitis without necrosis or infection SNOMED: 409370657, 4199507 Qualifiers: Qualified Codes: K85.20 - Alcohol induced acute pancreatitis without necrosis or infection (6) Respiratory failure ICD Codes: J96.90 - Respiratory failure, unspecified, unspecified whether with hypoxia or hypercapnia SNOMED: 125047514 Status: stable, progressing Assessment/Plan: jaundiced distended abdomen w ascites afebrile critical condition and poor prognosis metabolic malnutrition etoh cirhossis favor comfort care elevated lft s/p paracentesis Subjective ROS Limited/Unobtainable: Yes Allergies: Coded Allergies: No Known Allergies (Unverified , 06/20/19) Objective Last 24 Hour Vital Signs Date Time Temp Pulse Resp B/P (MAP) Pulse Ox O2 Delivery O2 Flow Rate FiO2 07/09/19 20:00 86 07/09/19 20:00 Nasal Cannula 3.0 07/09/19 20:00 99.0 90 30 92/46 (61) 97 07/09/19 19:52 97 Nasal Cannula 2.0 28 07/09/19 19:49 81 22 99 Nasal Cannula 2.0 28 84 26 97 07/09/19 19:20 100/50 07/09/19 19:00 84 30 93/50 (64) 97 07/09/19 18:00 83 28 97/41 (59) 100 07/09/19 17:00 82 26 81/38 (52) 96 07/09/19 16:00 Nasal Cannula 3.0 07/09/19 16:00 85 07/09/19 16:00 99.1 85 28 90/44 (59) 97 07/09/19 15:39 82 21 100 Nasal Cannula 2.0 28 85 26 96 07/09/19 15:00 84 28 94/44 (61) 97 07/09/19 14:53 107/68 07/09/19 14:00 83 27 91/59 (70) 97 07/09/19 13:00 85 32 87/44 (58) 99 07/09/19 12:00 Nasal Cannula 3.0 07/09/19 12:00 83 07/09/19 12:00 99.6 86 29 120/42 (68) 98 07/09/19 11:04 84 24 99 Nasal Cannula 2.0 28 83 24 97 07/09/19 11:00 81 26 87/41 (56) 94 07/09/19 10:00 84 27 95/52 (66) 94 07/09/19 09:00 87 26 107/53 (71) 96 07/09/19 08:00 Nasal Cannula 3.0 07/09/19 08:00 99.4 83 23 91/43 (59) 99 07/09/19 08:00 87 07/09/19 07:00 80 25 97/45 (62) 100 07/09/19 06:55 80 22 100 Nasal Cannula 2.0 28 77 22 98 07/09/19 06:55 98 Nasal Cannula 2.0 28 07/09/19 06:00 81 25 93/42 (59) 100 07/09/19 05:00 85 25 104/46 (65) 100 07/09/19 05:00 81 26 100 Full Face 28 07/09/19 04:00 85 07/09/19 04:00 98.9 84 30 89/41 (57) 100 07/09/19 04:00 Nasal Cannula 3.0 07/09/19 04:00 Nasal Cannula 3.0 07/09/19 03:00 85 30 115/47 (69) 100 07/09/19 02:00 80 26 98/47 (64) 99 07/09/19 01:25 86 28 100 Full Face 28 07/09/19 01:00 81 25 94/45 (61) 100 07/09/19 00:00 Nasal Cannula 3.0 9/16/19 00:00 83 07/09/19 00:00 98.7 80 25 99/48 (65) 100 07/08/19 23:00 81 25 104/48 (66) 100 07/08/19 22:50 85 23 100 Bi-Pap 28 83 25 100 07/08/19 22:50 86 31 100 Full Face 28 07/08/19 22:00 82 25 95/45 (62) 100 Intake and Output 07/08/19 07/09/19 18:59 06:59 Intake Total 840 ml 150 ml Output Total 500 ml 210 ml Balance 340 ml -60 ml Free Water 270 ml 150 ml IV Total 255 ml Tube Feeding 315 ml 0 ml Output Urine Total 0 ml 0 ml Stool Total 500 ml 210 ml Laboratory Tests 07/09/19 03:35: White Blood Count 33.1*H, Red Blood Count 2.59L, Hemoglobin 8.1L, Hematocrit 25.6L, Mean Corpuscular Volume 99, Mean Corpuscular Hemoglobin 31.4H, Mean Corpuscular Hemoglobin Concent 31.7L, Red Cell Distribution Width 25.7H, Platelet Count 141L, Mean Platelet Volume 12.5H, Neutrophils (%) (Auto) , Lymphocytes (%) (Auto) , Monocytes (%) (Auto) , Eosinophils (%) (Auto) , Basophils (%) (Auto) , Differential Total Cells Counted 100, Neutrophils % ( Manual) 75, Lymphocytes % (Manual) 5L, Monocytes % (Manual) 2, Eosinophils % ( Manual) 0, Basophils % (Manual) 2, Metamyelocytes % 1H, Myelocytes % 1H, Band Neutrophils 14H, Platelet Estimate DecreasedL, Platelet Morphology Normal, Polychromasia 1+, Hypochromasia 2+, Anisocytosis 2+, Macrocytosis 1+ 07/09/19 06:20: Sodium Level 145, Potassium Level 2.7*L, Chloride Level 108H, Carbon Dioxide Level 23, Anion Gap 15, Blood Urea Nitrogen 43H, Creatinine 5.8H, Estimat Glomerular Filtration Rate 10.9, Glucose Level 118H, Calcium Level 7.7L, Phosphorus Level 4.2, Magnesium Level 2.3, Total Bilirubin 35.5H, Direct Bilirubin 28.3H, Aspartate Amino Transf (AST/SGOT) 177H, Alanine Aminotransferase (ALT/SGPT) 20, Alkaline Phosphatase 237H, Total Protein 5.0L, Albumin 1.8L, Globulin 3.2, Albumin/Globulin Ratio 0.6L 07/09/19 17:00: Random Vancomycin Level 21.5 Height (Feet): 5 Height (Inches): 9.00 Weight (Pounds): 229 Cardiovascular: regular rhythm Respiratory/Chest: lungs clear Abdomen: soft Deejay Saldaña MD Jul 09, 2019 21:17
[2019-07-09] MEDS: Epoetin Alfa-EPBX(ESRD on dialysis)3000 units/ml vial SUBQ SCH (21:22)
--- NOTE | 2019-07-09 22:33 | Pulmonolgy Critical Care Note ---
Critical Care - Asmt/Plan Assessment/Plan: Pulmonary CCM Progress Note HPI This is a 39-year-old male who is an alcoholic with significant fatty liver on abdominal CT and alcoholic hepatitis, liver failure c/b multiorgan failure. He has been drinking heavily for 3 months straight, having stopped drinking [employer]. Noted to have Hepatic Encephalopathy and Hepatorenal Syndrome. No bleeding. Noted to have significant hypokalemia and acidosis, now on HD, s/ p Paracentesis previously On NC, BiPAP PRN, NGT, on Lactulose On Hemodialysis for worsening acidosis, uremia Much more interactive today BP stable, Midodrine, PRN levophed to maintain BP Allergies: No Known Allergies Past Medical History: Alcohol abuse All Other Systems: negative except mentioned in HPI Physical Exam Vital Signs Noted General Appearance: Jaundiced, awake Head: normocephalic, atraumatic, HD catheter Eyes: bilateral eye PERRL, bilateral eye EOMI, bilateral eye scleral icterus ENT: moist mm Neck: no masses, no LN Respiratory: chest non-tender, lungs clear, normal breath sounds Cardiovascular: regular rate, rhythm, Normal HS1, HS2, no murmur, tachycardia Gastrointestinal: Obese, hepatomegaly, some tenderness RUQ, normal bowel sounds , no mass, no rebound Musculoskeletal: moves all limbs Neurologic: responds to commands, awake Skin: jaundiced, mild edema Impression: Acute alcoholic intoxication Severe Sepsis Alcoholic Hepatitis Possible Cirrhosis Hepatorenal syndrome - worsening renal function - on HD Multiorgan Failure Extremelt poor prognosis Possible Portal Hypertension Hypernatremia Pancreatitis, alcoholic, acute Anemia Plan ICU management NPO except meds/NGT feeds IV antibiotics per ID Aspiration precautions BiPAP PRN NC O2 GI/Renal following HD per Nephrology Pressors PRN Transfuse PRN Thiamine Monitor labs Adjust FIO2 - sats 90-96% Patient has extremely poor prognosis Ongoing attempts with family discussions wrt possible DNR/DNI status Labs: noted EKG: Rate: tachycardiac Rhythm: NSR ST Segments: other - NSST changes Chest X-Ray: no significant change, hypoventilatory exam, no consolidation, no effusion, no pneumothorax, no acute cardiopulmonary disease CT abdomen pelvis: Severely enlarged liver and fatty liver. Mild ascites. Critical Care - Objective Last 24 Hour Vital Signs Date Time Temp Pulse Resp B/P (MAP) Pulse Ox O2 Delivery O2 Flow Rate FiO2 9/16/19 20:00 86 07/09/19 20:00 Nasal Cannula 3.0 07/09/19 20:00 99.0 90 30 92/46 (61) 97 07/09/19 19:52 97 Nasal Cannula 2.0 28 07/09/19 19:49 81 22 99 Nasal Cannula 2.0 28 84 26 97 07/09/19 19:20 100/50 07/09/19 19:00 84 30 93/50 (64) 97 07/09/19 18:00 83 28 97/41 (59) 100 07/09/19 17:00 82 26 81/38 (52) 96 07/09/19 16:00 Nasal Cannula 3.0 07/09/19 16:00 85 07/09/19 16:00 99.1 85 28 90/44 (59) 97 07/09/19 15:39 82 21 100 Nasal Cannula 2.0 28 85 26 96 07/09/19 15:00 84 28 94/44 (61) 97 07/09/19 14:53 107/68 07/09/19 14:00 83 27 91/59 (70) 97 07/09/19 13:00 85 32 87/44 (58) 99 07/09/19 12:00 Nasal Cannula 3.0 07/09/19 12:00 83 07/09/19 12:00 99.6 86 29 120/42 (68) 98 07/09/19 11:04 84 24 99 Nasal Cannula 2.0 28 83 24 97 07/09/19 11:00 81 26 87/41 (56) 94 07/09/19 10:00 84 27 95/52 (66) 94 07/09/19 09:00 87 26 107/53 (71) 96 07/09/19 08:00 Nasal Cannula 3.0 07/09/19 08:00 99.4 83 23 91/43 (59) 99 07/09/19 08:00 87 07/09/19 07:00 80 25 97/45 (62) 100 07/09/19 06:55 80 22 100 Nasal Cannula 2.0 28 77 22 98 07/09/19 06:55 98 Nasal Cannula 2.0 28 07/09/19 06:00 81 25 93/42 (59) 100 07/09/19 05:00 85 25 104/46 (65) 100 07/09/19 05:00 81 26 100 Full Face 28 07/09/19 04:00 85 07/09/19 04:00 98.9 84 30 89/41 (57) 100 07/09/19 04:00 Nasal Cannula 3.0 07/09/19 04:00 Nasal Cannula 3.0 07/09/19 03:00 85 30 115/47 (69) 100 07/09/19 02:00 80 26 98/47 (64) 99 07/09/19 01:25 86 28 100 Full Face 28 07/09/19 01:00 81 25 94/45 (61) 100 07/09/19 00:00 Nasal Cannula 3.0 07/09/19 00:00 83 07/09/19 00:00 98.7 80 25 99/48 (65) 100 07/08/19 23:00 81 25 104/48 (66) 100 07/08/19 22:50 85 23 100 Bi-Pap 28 83 25 100 07/08/19 22:50 86 31 100 Full Face 28 Critical Care - Subjective ROS Limited/Unobtainable: No FI02: 28 Vent Support Mode: BiLevel Sputum Amount: None Tube Feeding Amount: 20 I&O: Intake and Output 07/08/19 07/09/19 19:00 07:00 Intake Total 795 ml 150 ml Output Total 500 ml 270 ml Balance 295 ml -120 ml Free Water 270 ml 150 ml IV Total 255 ml Tube Feeding 270 ml 0 ml Output Urine Total 0 ml 60 ml Stool Total 500 ml 210 ml Quang Domingo MD Jul 09, 2019 22:33
[2019-07-10] VITALS (26 sets, daily range): BP systolic 84–148; BP diastolic 24–80
[2019-07-10] MEDS: Albuterol/Ipratropium 3ml neb HHN SCH ×6 (03:32→22:53)
[2019-07-10 04:52] LABS: HEMOGLOBIN 7.5 G/DL (14.2-18.0); MEAN CORPUSCULAR VOLUME 100 FL (80-99); PLATELET COUNT 128 K/UL (150-450); RED CELL DISTRIBUTION WIDTH 22.8 % (11.6-14.8)
[2019-07-10 05:08] LABS: WHITE BLOOD COUNT 30.1 K/UL (4.8-10.8)
[2019-07-10 05:30] LABS: ALANINE AMINOTRANSFERASE 20 U/L (12-78); ALBUMIN 1.6 G/DL (3.4-5.0); ALBUMIN/GLOBULIN RATIO 0.5 (1.0-2.7); ALKALINE PHOSPHATASE 263 U/L (46-116); ANION GAP 17 mmol/L (5-15); ASPARTATE AMINO TRANSFERASE 202 U/L (15-37); BILIRUBIN,TOTAL 35.9 MG/DL (0.2-1.0); BLOOD UREA NITROGEN 57 mg/dL (7-18); CALCIUM 7.9 MG/DL (8.5-10.1); CARBON DIOXIDE 21 MMOL/L (21-32); CHLORIDE 110 MMOL/L (98-107); CREATININE 7.5 MG/DL (0.55-1.30); PHOSPHORUS 5.5 MG/DL (2.5-4.9); POTASSIUM 2.8 MMOL/L (3.5-5.1); SODIUM 149 MMOL/L (136-145)
[2019-07-10 05:44] LABS: BILIRUBIN,DIRECT 28.6 MG/DL (0.0-0.3)
[2019-07-10] MEDS: Thiamine 100mg tab ORAL SCH (08:41)
[2019-07-10] MEDS: Lactulose 20gm/30ml UDC NG SCH ×4 (08:43→20:37)
[2019-07-10] MEDS: Pantoprazole Inj IVP SCH ×2 (08:43→20:37)
--- NOTE | 2019-07-10 08:53 | General Progress Note ---
Assessment/Plan Problem List: (1) Pancreatitis, alcoholic, acute ICD Codes: K85.20 - Alcohol induced acute pancreatitis without necrosis or infection SNOMED: 208873722, [id number] Qualifiers: Qualified Codes: K85.20 - Alcohol induced acute pancreatitis without necrosis or infection (2) Acute alcoholic intoxication ICD Codes: F10.929 - Alcohol use, unspecified with intoxication, unspecified SNOMED: 53223472, [id number] Qualifiers: Qualified Codes: F10.920 - Alcohol use, unspecified with intoxication, uncomplicated (3) Anemia ICD Codes: D64.9 - Anemia, unspecified SNOMED: 391223144 Qualifiers: Qualified Codes: D64.9 - Anemia, unspecified Status: stable, progressing Assessment/Plan: discriminant factor of 16 NGTF repeat labs fu nephrology cont lactulose xifaxan prn paracentesis poor prognosis Subjective ROS Limited/Unobtainable: No Allergies: Coded Allergies: No Known Allergies (Unverified , 06/20/19) Objective Last 24 Hour Vital Signs Date Time Temp Pulse Resp B/P (MAP) Pulse Ox O2 Delivery O2 Flow Rate FiO2 07/10/19 08:00 Nasal Cannula 1.0 07/10/19 08:00 99.4 88 30 96/36 (56) 98 07/10/19 07:00 90 27 148/24 (65) 99 07/10/19 06:51 84 27 100 Nasal Cannula 2.0 28 86 26 100 07/10/19 06:51 100 Nasal Cannula 2.0 28 07/10/19 06:00 89 29 120/52 (74) 100 07/10/19 05:43 90 34 97 Facial 28 07/10/19 05:00 90 27 126/52 (76) 100 07/10/19 04:00 Nasal Cannula 3.0 07/10/19 04:00 91 07/10/19 04:00 99.0 91 29 96/42 (60) 100 07/10/19 03:32 87 29 100 Nasal Cannula 2.0 28 89 30 100 07/10/19 03:14 92 29 98 Facial 28 07/10/19 03:00 88 28 104/48 (66) 98 07/10/19 02:00 87 28 91/43 (59) 98 07/10/19 01:56 92 30 98 Facial 28 07/10/19 01:00 87 30 139/60 (86) 98 07/10/19 00:00 99.3 87 30 134/54 (80) 98 07/10/19 00:00 Nasal Cannula 3.0 07/09/19 23:40 87 24 100 Nasal Cannula 2.0 28 90 26 98 07/09/19 23:35 89 28 99 Facial 28 07/09/19 23:00 87 31 103/78 (86) 98 07/09/19 22:00 87 22 101/47 (65) 97 07/09/19 21:00 86 21 109/45 (66) 97 07/09/19 20:00 86 07/09/19 20:00 Nasal Cannula 3.0 07/09/19 20:00 99.0 90 30 92/46 (61) 97 07/09/19 19:52 97 Nasal Cannula 2.0 28 07/09/19 19:49 81 22 99 Nasal Cannula 2.0 28 84 26 97 07/09/19 19:20 100/50 07/09/19 19:00 84 30 93/50 (64) 97 07/09/19 18:00 83 28 97/41 (59) 100 07/09/19 17:00 82 26 81/38 (52) 96 07/09/19 16:00 Nasal Cannula 3.0 07/09/19 16:00 85 07/09/19 16:00 99.1 85 28 90/44 (59) 97 07/09/19 15:39 82 21 100 Nasal Cannula 2.0 28 85 26 96 07/09/19 15:00 84 28 94/44 (61) 97 07/09/19 14:53 107/68 07/09/19 14:00 83 27 91/59 (70) 97 07/09/19 13:00 85 32 87/44 (58) 99 07/09/19 12:00 Nasal Cannula 3.0 07/09/19 12:00 83 07/09/19 12:00 99.6 86 29 120/42 (68) 98 07/09/19 11:04 84 24 99 Nasal Cannula 2.0 28 83 24 97 07/09/19 11:00 81 26 87/41 (56) 94 07/09/19 10:00 84 27 95/52 (66) 94 07/09/19 09:00 87 26 107/53 (71) 96 Intake and Output 07/09/19 07/10/19 19:00 07:00 Intake Total 535 ml 660 ml Output Total 525 ml 570 ml Balance 10 ml 90 ml Free Water 400 ml IV Total 455 ml Tube Feeding 80 ml 260 ml Output Urine Total 0 ml 20 ml Stool Total 525 ml 550 ml Laboratory Tests 07/09/19 17:00: Random Vancomycin Level 21.5 07/10/19 04:00: White Blood Count 30.1*H, Red Blood Count 2.30L, Hemoglobin 7.5L, Hematocrit 23.0L, Mean Corpuscular Volume 100H, Mean Corpuscular Hemoglobin 32.4H, Mean Corpuscular Hemoglobin Concent 32.5, Red Cell Distribution Width 22.8H, Platelet Count 128L, Mean Platelet Volume 10.7H, Neutrophils (%) (Auto) , Lymphocytes (%) (Auto) , Monocytes (%) (Auto) , Eosinophils (%) (Auto) , Basophils (%) (Auto) , Neutrophils % (Manual) [Pending], Lymphocytes % (Manual) [Pending], Platelet Estimate [Pending], Platelet Morphology [Pending], Sodium Level 149H, Potassium Level 2.8L, Chloride Level 110H, Carbon Dioxide Level 21, Anion Gap 17H, Blood Urea Nitrogen 57H, Creatinine 7.5H, Estimat Glomerular Filtration Rate 8.1, Glucose Level 122H, Calcium Level 7.9L, Phosphorus Level 5.5H, Magnesium Level 2.4, Total Bilirubin 35.9H, Direct Bilirubin 28.6H, Aspartate Amino Transf (AST/SGOT) 202H, Alanine Aminotransferase (ALT/SGPT) 20, Alkaline Phosphatase 263H, Total Protein 4.9L, Albumin 1.6L, Globulin 3.3, Albumin/Globulin Ratio 0.5L, Lipase 369 Height (Feet): 5 Height (Inches): 9.00 Weight (Pounds): 230 General Appearance: lethargic EENT: normal ENT inspection Neck: supple Cardiovascular: normal rate Respiratory/Chest: decreased breath sounds Abdomen: decreased bowel sounds, distended Extremities: non-tender Merlin Esposito MD Jul 10, 2019 08:53
[2019-07-10] MEDS ORDERED: Meropenem 500 MG in NS 55 ML IVPB SCH (12:00)
[2019-07-10] MEDS ORDERED: Vancomycin 1gm in D5W 275ml IVPB SCH (12:00)
--- NOTE | 2019-07-10 13:39 | Infectious Diseases Prog Note ---
Assessment/Plan Assessment/Plan IMPRESSION: 1. Sepsis. 2. leukocytosis 3. Tachycardia. 4. Leukocytosis. 5. colitis, 6.Alcoholic pancreatitis, 7.Cirrhosis of liver, 8. Acute renal failure likely hepatorenal syndrome, - ESRD 9.Anemia, 10. thrombocytopenia, 11.hypocalcemia, 12.hypomagnesemia, corrected 13 hypokalemia, 14, Alcohol withdrawal. 15.Metabolic encephalopathy 16. Hypophosphatemia 17. Hypernatremia 18. Hypoxic respiratory failure RECOMMENDATION: continue Vancomycin & Meropenem until tomorrow will f/u cultures Poor prognosis Subjective ROS Limited/Unobtainable: Yes Neurologic: Reports: confusion, other - on restraint Allergies: Coded Allergies: No Known Allergies (Unverified , 06/20/19) Objective Vital Signs Last 24 Hour Vital Signs Date Time Temp Pulse Resp B/P (MAP) Pulse Ox O2 Delivery O2 Flow Rate FiO2 07/10/19 12:00 99.4 86 29 96/49 (65) 96 07/10/19 12:00 Nasal Cannula 2.0 07/10/19 12:00 87 07/10/19 11:00 85 30 93/45 (61) 99 07/10/19 10:53 88 29 100 Nasal Cannula 2.0 28 88 28 97 07/10/19 10:00 86 27 91/42 (58) 96 07/10/19 09:00 84 27 84/42 (56) 95 07/10/19 08:00 88 07/10/19 08:00 Nasal Cannula 1.0 07/10/19 08:00 99.4 88 30 96/36 (56) 98 07/10/19 07:00 90 27 148/24 (65) 99 07/10/19 06:51 84 27 100 Nasal Cannula 2.0 28 86 26 100 07/10/19 06:51 100 Nasal Cannula 2.0 28 07/10/19 06:00 89 29 120/52 (74) 100 07/10/19 05:43 90 34 97 Facial 28 07/10/19 05:00 90 27 126/52 (76) 100 07/10/19 04:00 Nasal Cannula 3.0 07/10/19 04:00 91 07/10/19 04:00 99.0 91 29 96/42 (60) 100 07/10/19 03:32 87 29 100 Nasal Cannula 2.0 28 89 30 100 07/10/19 03:14 92 29 98 Facial 28 07/10/19 03:00 88 28 104/48 (66) 98 07/10/19 02:00 87 28 91/43 (59) 98 07/10/19 01:56 92 30 98 Facial 28 07/10/19 01:00 87 30 139/60 (86) 98 07/10/19 00:00 99.3 87 30 134/54 (80) 98 07/10/19 00:00 Nasal Cannula 3.0 07/09/19 23:40 87 24 100 Nasal Cannula 2.0 28 90 26 98 07/09/19 23:35 89 28 99 Facial 28 07/09/19 23:00 87 31 103/78 (86) 98 07/09/19 22:00 87 22 101/47 (65) 97 07/09/19 21:00 86 21 109/45 (66) 97 07/09/19 20:00 86 07/09/19 20:00 Nasal Cannula 3.0 07/09/19 20:00 99.0 90 30 92/46 (61) 97 07/09/19 19:52 97 Nasal Cannula 2.0 28 07/09/19 19:49 81 22 99 Nasal Cannula 2.0 28 84 26 97 07/09/19 19:20 100/50 07/09/19 19:00 84 30 93/50 (64) 97 07/09/19 18:00 83 28 97/41 (59) 100 07/09/19 17:00 82 26 81/38 (52) 96 07/09/19 16:00 Nasal Cannula 3.0 07/09/19 16:00 85 07/09/19 16:00 99.1 85 28 90/44 (59) 97 07/09/19 15:39 82 21 100 Nasal Cannula 2.0 28 85 26 96 07/09/19 15:00 84 28 94/44 (61) 97 07/09/19 14:53 107/68 07/09/19 14:00 83 27 91/59 (70) 97 Height (Feet): 5 Height (Inches): 9.00 Weight (Pounds): 230 HEENT: mucous membranes moist, other - icterus Respiratory/Chest: lungs clear Cardiovascular: normal rate, other - PICC line & Carrillo's catheter Abdomen: distended Extremities: other - edema Neurologic/Psychiatric: disoriented Laboratory Tests Test 07/09/19 17:00 07/10/19 04:00 Random Vancomycin Level 21.5 ug/mL White Blood Count 30.1 K/UL (4.8-10.8) *H Red Blood Count 2.30 M/UL (4.70-6.10) L Hemoglobin 7.5 G/DL (14.2-18.0) L Hematocrit 23.0 % (42.0-52.0) L Mean Corpuscular Volume 100 FL (80-99) H Mean Corpuscular Hemoglobin 32.4 PG (27.0-31.0) H Mean Corpuscular Hemoglobin Concent 32.5 G/DL (32.0-36.0) Red Cell Distribution Width 22.8 % (11.6-14.8) H Platelet Count 128 K/UL (150-450) L Mean Platelet Volume 10.7 FL (6.5-10.1) H Neutrophils (%) (Auto) % (45.0-75.0) Lymphocytes (%) (Auto) % (20.0-45.0) Monocytes (%) (Auto) % (1.0-10.0) Eosinophils (%) (Auto) % (0.0-3.0) Basophils (%) (Auto) % (0.0-2.0) Differential Total Cells Counted 100 Neutrophils % (Manual) 72 % (45-75) Lymphocytes % (Manual) 7 % (20-45) L Monocytes % (Manual) 6 % (1-10) Eosinophils % (Manual) 0 % (0-3) Basophils % (Manual) 0 % (0-2) Metamyelocytes % 2 % (0-0) H Myelocytes % 2 % (0-0) H Band Neutrophils 11 % (0-8) H Platelet Estimate Decreased L Platelet Morphology Normal Anisocytosis 2+ Macrocytosis 1+ Sodium Level 149 MMOL/L (136-145) H Potassium Level 2.8 MMOL/L (3.5-5.1) L Chloride Level 110 MMOL/L (98-107) H Carbon Dioxide Level 21 MMOL/L (21-32) Anion Gap 17 mmol/L (5-15) H Blood Urea Nitrogen 57 mg/dL (7-18) H Creatinine 7.5 MG/DL (0.55-1.30) H Estimat Glomerular Filtration Rate 8.1 mL/min (>60) Glucose Level 122 MG/DL (74-106) H Calcium Level 7.9 MG/DL (8.5-10.1) L Phosphorus Level 5.5 MG/DL (2.5-4.9) H Magnesium Level 2.4 MG/DL (1.8-2.4) Total Bilirubin 35.9 MG/DL (0.2-1.0) H Direct Bilirubin 28.6 MG/DL (0.0-0.3) H Aspartate Amino Transf (AST/SGOT) 202 U/L (15-37) H Alanine Aminotransferase (ALT/SGPT) 20 U/L (12-78) Alkaline Phosphatase 263 U/L (46-116) H Total Protein 4.9 G/DL (6.4-8.2) L Albumin 1.6 G/DL (3.4-5.0) L Globulin 3.3 g/dL Albumin/Globulin Ratio 0.5 (1.0-2.7) L Lipase 369 U/L (73-393) Current Medications Medications (Trade) Dose Ordered Sig/Gabriela Route PRN Reason Start Time Stop Time Status Last Admin Dose Admin Albuterol/ Ipratropium (Albuterol/ Ipratropium) 3 ml Q4HRT HHN 07/09/19 15:30 07/14/19 15:29 07/10/19 10:53 Chlorhexidine Gluconate (Emilie-Hex 2%) 1 applic DAILY@2000 TOPIC 06/26/19 20:00 07/26/19 19:59 07/09/19 20:11 Dopamine HCl/ Dextrose 250 ml @ 0 mls/hr Q24H IV 06/30/19 14:53 07/30/19 14:52 07/05/19 12:42 Epoetin Michael (Epoetin Michael(ESRD on dialysis)) 2,000 unit SUBQ 07/02/19 21:00 08/01/19 20:59 07/09/19 21:14 Epoetin Michael (Epoetin Michael(ESRD on dialysis)) 3,000 unit SUBQ 07/02/19 21:00 08/01/19 20:59 07/09/19 21:22 Folic Acid (Folate) 1 mg DAILY ORAL 07/10/19 09:00 08/09/19 08:59 07/10/19 08:41 Lactulose (Cephulac) 30 gm FOUR TIMES A DAY NG 07/01/19 09:00 07/20/19 12:59 07/10/19 13:00 Meropenem 500 mg/ Sodium Chloride 55 ml @ 110 mls/hr Q24H IVPB 07/10/19 12:00 07/15/19 11:59 07/10/19 12:00 Multivitamins (Multivitamins) 1 tab DAILY ORAL 07/10/19 09:00 08/09/19 08:59 07/10/19 08:41 Norepinephrine Bitartrate 4 mg/ Dextrose 250 ml @ 0 mls/hr Q24H IV 07/06/19 19:20 08/05/19 19:19 Pantoprazole (Protonix) 40 mg EVERY 12 HOURS IVP 06/21/19 21:00 07/20/19 20:59 07/10/19 08:43 Potassium Chloride 100 ml @ 100 mls/hr Q1H IVPB 07/10/19 11:00 07/10/19 16:59 07/10/19 13:00 Thiamine HCl (Vitamin B1) 100 mg DAILY ORAL 07/10/19 09:00 08/09/19 08:59 07/10/19 08:41 Vancomycin HCl (Vanco rx to dose) 1 ea DAILY PRN MISC Per rx protocol 07/05/19 10:45 08/04/19 10:44 Ilia Chakraborty MD Jul 10, 2019 13:39
--- NOTE | 2019-07-10 13:44 | Nephrology Progress Note ---
Assessment/Plan Problem List: (1) End-stage liver disease (2) Hepatorenal syndrome (3) Pancreatitis, alcoholic, acute (4) Acute alcoholic intoxication (5) Anemia (6) Respiratory failure (7) Hypernatremia Assessment Acute alcoholic intoxication End-stage liver disease Hepatorenal syndrome Pancreatitis, alcoholic, acute Anemia Plan Hypotensive- not tolerated dialysis last time due to low BP I CONSIDER TREATMENT OF THIS PATIENT TO BE FUTILE correct low K per orders on 06/28/19 met with Brother- Liliana zonia Reyes Inspector Scales Brother will discuss with family regarding DNR and comfort care K and Mag and phos supplement as needed has parker NO OUTPUT has RT (rectal tube) on lactulose discussed with RN Correct lytes IV protonix lactulose Folate and Thiamin per GI transfuse per consultants Subjective ROS Limited/Unobtainable: Yes Objective Objective Last 24 Hour Vital Signs Date Time Temp Pulse Resp B/P (MAP) Pulse Ox O2 Delivery O2 Flow Rate FiO2 07/10/19 12:00 99.4 86 29 96/49 (65) 96 07/10/19 12:00 Nasal Cannula 2.0 07/10/19 12:00 87 07/10/19 11:00 85 30 93/45 (61) 99 07/10/19 10:53 88 29 100 Nasal Cannula 2.0 28 88 28 97 07/10/19 10:00 86 27 91/42 (58) 96 07/10/19 09:00 84 27 84/42 (56) 95 07/10/19 08:00 88 07/10/19 08:00 Nasal Cannula 1.0 07/10/19 08:00 99.4 88 30 96/36 (56) 98 07/10/19 07:00 90 27 148/24 (65) 99 07/10/19 06:51 84 27 100 Nasal Cannula 2.0 28 86 26 100 07/10/19 06:51 100 Nasal Cannula 2.0 28 07/10/19 06:00 89 29 120/52 (74) 100 07/10/19 05:43 90 34 97 Facial 28 07/10/19 05:00 90 27 126/52 (76) 100 07/10/19 04:00 Nasal Cannula 3.0 07/10/19 04:00 91 07/10/19 04:00 99.0 91 29 96/42 (60) 100 07/10/19 03:32 87 29 100 Nasal Cannula 2.0 28 89 30 100 07/10/19 03:14 92 29 98 Facial 28 07/10/19 03:00 88 28 104/48 (66) 98 07/10/19 02:00 87 28 91/43 (59) 98 07/10/19 01:56 92 30 98 Facial 28 07/10/19 01:00 87 30 139/60 (86) 98 07/10/19 00:00 99.3 87 30 134/54 (80) 98 07/10/19 00:00 Nasal Cannula 3.0 07/09/19 23:40 87 24 100 Nasal Cannula 2.0 28 90 26 98 07/09/19 23:35 89 28 99 Facial 28 07/09/19 23:00 87 31 103/78 (86) 98 07/09/19 22:00 87 22 101/47 (65) 97 07/09/19 21:00 86 21 109/45 (66) 97 07/09/19 20:00 86 07/09/19 20:00 Nasal Cannula 3.0 07/09/19 20:00 99.0 90 30 92/46 (61) 97 07/09/19 19:52 97 Nasal Cannula 2.0 28 07/09/19 19:49 81 22 99 Nasal Cannula 2.0 28 84 26 97 07/09/19 19:20 100/50 07/09/19 19:00 84 30 93/50 (64) 97 07/09/19 18:00 83 28 97/41 (59) 100 07/09/19 17:00 82 26 81/38 (52) 96 07/09/19 16:00 Nasal Cannula 3.0 07/09/19 16:00 85 07/09/19 16:00 99.1 85 28 90/44 (59) 97 07/09/19 15:39 82 21 100 Nasal Cannula 2.0 28 85 26 96 07/09/19 15:00 84 28 94/44 (61) 97 07/09/19 14:53 107/68 07/09/19 14:00 83 27 91/59 (70) 97 Intake and Output 07/09/19 07/10/19 19:00 07:00 Intake Total 535 ml 660 ml Output Total 525 ml 570 ml Balance 10 ml 90 ml Free Water 400 ml IV Total 455 ml Tube Feeding 80 ml 260 ml Output Urine Total 0 ml 20 ml Stool Total 525 ml 550 ml Laboratory Tests 07/09/19 17:00: Random Vancomycin Level 21.5 07/10/19 04:00: White Blood Count 30.1*H, Red Blood Count 2.30L, Hemoglobin 7.5L, Hematocrit 23.0L, Mean Corpuscular Volume 100H, Mean Corpuscular Hemoglobin 32.4H, Mean Corpuscular Hemoglobin Concent 32.5, Red Cell Distribution Width 22.8H, Platelet Count 128L, Mean Platelet Volume 10.7H, Neutrophils (%) (Auto) , Lymphocytes (%) (Auto) , Monocytes (%) (Auto) , Eosinophils (%) (Auto) , Basophils (%) (Auto) , Differential Total Cells Counted 100, Neutrophils % ( Manual) 72, Lymphocytes % (Manual) 7L, Monocytes % (Manual) 6, Eosinophils % ( Manual) 0, Basophils % (Manual) 0, Metamyelocytes % 2H, Myelocytes % 2H, Band Neutrophils 11H, Platelet Estimate DecreasedL, Platelet Morphology Normal, Anisocytosis 2+, Macrocytosis 1+, Sodium Level 149H, Potassium Level 2.8L, Chloride Level 110H, Carbon Dioxide Level 21, Anion Gap 17H, Blood Urea Nitrogen 57H, Creatinine 7.5H, Estimat Glomerular Filtration Rate 8.1, Glucose Level 122H, Calcium Level 7.9L, Phosphorus Level 5.5H, Magnesium Level 2.4, Total Bilirubin 35.9H, Direct Bilirubin 28.6H, Aspartate Amino Transf (AST/SGOT ) 202H, Alanine Aminotransferase (ALT/SGPT) 20, Alkaline Phosphatase 263H, Total Protein 4.9L, Albumin 1.6L, Globulin 3.3, Albumin/Globulin Ratio 0.5L, Lipase 369 Height (Feet): 5 Height (Inches): 9.00 Weight (Pounds): 230 General Appearance: mild distress, other - deeply jaundiced Cardiovascular: tachycardia Respiratory/Chest: decreased breath sounds Abdomen: distended Arthur Lay MD Jul 10, 2019 13:44
--- NOTE | 2019-07-10 14:51 | Hematology/Onc Progress Note ---
Assessment/Plan Assessment/Plan Assessment and Recs: # Thrombocytopenia - potential causes multifactorial, does have a history of etoh abuse, cirrhosis of the liver, hepatosplenomegaly, portal HTN, coagulopathy noted as well, likely oscillatory pattern can be due to abx as well --> Hep panel and HIV ordered (NEG) --> US abd does show, portal htn and cirrhosis ++ --> Peripheral smear ordered to evaluate for blasts /schistocytes reviewed and is negative --> abx and other meds have been reviewed --> ok for ppx if plt >50k w/ either heparin or lovenox --> Transfuse if Plt < 20k and fever, or if Plt < 10k without fever --> plt trend 80-->97-->117-->157k->216k-->107k-->72k-->68k-->109k-->108k-->148k -->176k-->182k->141k-->128k # Anemia of chronic disease due to underlying chronic medical issues, multifactorial (myelosuprresion noted) --> Anemia workup has been reviewed, ferritin 297 --> EPOGEN HAS BEEN ORDERED WITH HD --> Hgb goal >7. Transfuse prn. --> Medications have been reviewed --> low threshold for gi evaluation in case has occult + --> hgb trend: 7.7-->8.2-->9->8.4-->8.3-->8.2-->8-->7.4->7.3-->7.7-->7.8-->7.6-- >8.1->7.5 --> serum electrophoresis shows no m-spike 06/27 # Coagulopathy due to cirrhosis --> give Vitk as needed # Leukocytosis with sepsis is on abx --> ID following, appreciate recs --> wbc trend: 17k-->13.9-->19.5-->18.7-->27.4-->33.6->32--->33-->30 --> FLAGYL and CTX-> vanc/amish # Acute alcoholic intoxication --> etoh abuse history --> thiamine, folic acid, ivf # End-stage liver disease --> Hepatorenal syndrome r/o with renal, albumin prn # Pancreatitis, alcoholic, acute # Tachycardia # ESRD --> on had as per renal # Dvt ppx with scds given low plts # POOR PROGNOSIS The timing of this note does not necessarily reflect the time of the patient was seen. GREATLY APPRECIATE CONSULTATION. Subjective Constitutional: Denies: no symptoms, chills, fever, malaise, weakness, other HEENT: Denies: no symptoms, eye pain, blurred vision, tearing, double vision, ear pain, ear discharge, nose pain, nose congestion, throat pain, throat swelling, mouth pain, mouth swelling, other Cardiovascular: Denies: no symptoms, chest pain, edema, irregular heart rate, lightheadedness, palpitations, syncope, other Respiratory: Denies: no symptoms, cough, shortness of breath, SOB with excertion, SOB at rest, sputum, wheezing, other Gastrointestinal/Abdominal: Denies: no symptoms, abdomen distended, abdominal pain, black stools, tarry stools, blood in stool, constipated, diarrhea, difficulty swallowing, nausea, poor appetite, poor fluid intake, rectal bleeding , vomiting, other Neurologic/Psychiatric: Denies: no symptoms, anxiety, depressed, emotional problems, headache, numbness, paresthesia, pre-existing deficit, seizure, tingling, tremors, weakness, other Hematologic/Lymphatic: Denies: no symptoms, anemia, easy bleeding, easy bruising, adenopathy, other Allergies: Coded Allergies: No Known Allergies (Unverified , 06/20/19) Subjective 06/21: low k, ferritin 297, h/h stable, afebrile, blood transfused 06/22: in icu, on restraints, labs reviewed, no f/c, imaging reviewed 06/23: pain meds given, remains in icu, again in restraints, bili higher, inr as well, given vitk 06/25: no fevers, no chills, no bleeding, confused in bed in icu 06/26: no events to report, no bleeding, remains in icu, ++ bipap 06/27: icu,s/p paracentesis yesterday, off pressors, h/h stable 06/28: on ctx/flagyl, remains confused, no bleeding, plt is lower 06/29: no f/c, on abx, no acute events, no distress, labs reviewed 06/30: remains in the icu, on abx, no f/c, scds+ 07/02: remains in the icu, no fevers or chills, prbc ordered, as well as epo 07/03: remains in the icu, on restraints, on abx, labs noted, vs stable, no acute events 07/04: dw team and agree patient with very poor prognosis, pending bioethics consult 07/05: remains in icu, very poor prognosis, labs noted wbc 27.4, off bipap receiving repiratory tx 07/06: remains icu, very poor prognosis, wbc 33.6 trending up, no f/c, vs stable , on bipap, paracentesis pending 07/08: remains in the icu, labs look worse, though repsonding better this am, able to raise hands 07/09: no events, hd was done, no events, labs noted, no bleeding 07/10: remains borderline in re to mental status, no f/c, no bleeding in the icu Objective Objective Current Medications Medications (Trade) Dose Ordered Sig/Gabriela Route PRN Reason Start Time Stop Time Status Last Admin Dose Admin Albuterol/ Ipratropium (Albuterol/ Ipratropium) 3 ml Q4HRT HHN 07/09/19 15:30 07/14/19 15:29 07/10/19 14:37 Chlorhexidine Gluconate (Emilie-Hex 2%) 1 applic DAILY@2000 TOPIC 06/26/19 20:00 07/26/19 19:59 07/09/19 20:11 Dopamine HCl/ Dextrose 250 ml @ 0 mls/hr Q24H IV 06/30/19 14:53 07/30/19 14:52 07/05/19 12:42 Epoetin Michael (Epoetin Michael(ESRD on dialysis)) 2,000 unit TUE-TUE-TUE SUBQ 07/02/19 21:00 08/01/19 20:59 07/09/19 21:14 Epoetin Michael (Epoetin Michael(ESRD on dialysis)) 3,000 unit TUE-TUE-TUE SUBQ 07/02/19 21:00 08/01/19 20:59 07/09/19 21:22 Folic Acid (Folate) 1 mg DAILY ORAL 07/10/19 09:00 08/09/19 08:59 07/10/19 08:41 Lactulose (Cephulac) 30 gm FOUR TIMES A DAY NG 07/01/19 09:00 07/20/19 12:59 07/10/19 13:00 Meropenem 500 mg/ Sodium Chloride 55 ml @ 110 mls/hr Q24H IVPB 07/10/19 12:00 07/15/19 11:59 07/10/19 12:00 Multivitamins (Multivitamins) 1 tab DAILY ORAL 07/10/19 09:00 08/09/19 08:59 07/10/19 08:41 Norepinephrine Bitartrate 4 mg/ Dextrose 250 ml @ 0 mls/hr Q24H IV 07/06/19 19:20 08/05/19 19:19 Pantoprazole (Protonix) 40 mg EVERY 12 HOURS IVP 06/21/19 21:00 07/20/19 20:59 07/10/19 08:43 Potassium Chloride 100 ml @ 100 mls/hr Q1H IVPB 07/10/19 11:00 07/10/19 16:59 07/10/19 14:21 Thiamine HCl (Vitamin B1) 100 mg DAILY ORAL 07/10/19 09:00 08/09/19 08:59 07/10/19 08:41 Vancomycin HCl (Vanco rx to dose) 1 ea DAILY PRN MISC Per rx protocol 07/05/19 10:45 08/04/19 10:44 Last 24 Hour Vital Signs Date Time Temp Pulse Resp B/P (MAP) Pulse Ox O2 Delivery O2 Flow Rate FiO2 07/10/19 14:37 87 28 99 Nasal Cannula 2.0 28 85 27 96 07/10/19 14:00 84 28 88/44 (59) 97 07/10/19 13:00 85 31 90/45 (60) 98 07/10/19 12:00 99.4 86 29 96/49 (65) 96 07/10/19 12:00 Nasal Cannula 2.0 07/10/19 12:00 87 07/10/19 11:00 85 30 93/45 (61) 99 07/10/19 10:53 88 29 100 Nasal Cannula 2.0 28 88 28 97 07/10/19 10:00 86 27 91/42 (58) 96 07/10/19 09:00 84 27 84/42 (56) 95 07/10/19 08:00 88 07/10/19 08:00 Nasal Cannula 1.0 07/10/19 08:00 99.4 88 30 96/36 (56) 98 07/10/19 07:00 90 27 148/24 (65) 99 07/10/19 06:51 84 27 100 Nasal Cannula 2.0 28 86 26 100 07/10/19 06:51 100 Nasal Cannula 2.0 28 07/10/19 06:00 89 29 120/52 (74) 100 07/10/19 05:43 90 34 97 Facial 28 07/10/19 05:00 90 27 126/52 (76) 100 07/10/19 04:00 Nasal Cannula 3.0 07/10/19 04:00 91 07/10/19 04:00 99.0 91 29 96/42 (60) 100 07/10/19 03:32 87 29 100 Nasal Cannula 2.0 28 89 30 100 07/10/19 03:14 92 29 98 Facial 28 07/10/19 03:00 88 28 104/48 (66) 98 07/10/19 02:00 87 28 91/43 (59) 98 07/10/19 01:56 92 30 98 Facial 28 07/10/19 01:00 87 30 139/60 (86) 98 07/10/19 00:00 99.3 87 30 134/54 (80) 98 07/10/19 00:00 Nasal Cannula 3.0 07/09/19 23:40 87 24 100 Nasal Cannula 2.0 90 26 98 07/09/19 23:35 89 28 99 Facial 28 07/09/19 23:00 87 31 103/78 (86) 98 07/09/19 22:00 87 22 101/47 (65) 97 07/09/19 21:00 86 21 109/45 (66) 97 07/09/19 20:00 86 07/09/19 20:00 Nasal Cannula 3.0 07/09/19 20:00 99.0 90 30 92/46 (61) 97 07/09/19 19:52 97 Nasal Cannula 2.0 28 07/09/19 19:49 81 22 99 Nasal Cannula 2.0 28 84 26 97 07/09/19 19:20 100/50 07/09/19 19:00 84 30 93/50 (64) 97 07/09/19 18:00 83 28 97/41 (59) 100 07/09/19 17:00 82 26 81/38 (52) 96 07/09/19 16:00 Nasal Cannula 3.0 07/09/19 16:00 85 07/09/19 16:00 99.1 85 28 90/44 (59) 97 07/09/19 15:39 82 21 100 Nasal Cannula 2.0 28 85 26 96 07/09/19 15:00 84 28 94/44 (61) 97 07/09/19 14:53 107/68 07/09/19 14:00 83 27 91/59 (70) 97 07/09/19 13:00 85 32 87/44 (58) 99 07/09/19 12:00 Nasal Cannula 3.0 07/09/19 12:00 83 07/09/19 12:00 99.6 86 29 120/42 (68) 98 07/09/19 11:04 84 24 99 Nasal Cannula 2.0 28 83 24 97 07/09/19 11:00 81 26 87/41 (56) 94 07/09/19 10:00 84 27 95/52 (66) 94 07/09/19 09:00 87 26 107/53 (71) 96 07/09/19 08:00 Nasal Cannula 3.0 07/09/19 08:00 99.4 83 23 91/43 (59) 99 07/09/19 08:00 87 07/09/19 07:00 80 25 97/45 (62) 100 07/09/19 06:55 80 22 100 Nasal Cannula 2.0 28 77 22 98 07/09/19 06:55 98 Nasal Cannula 2.0 28 07/09/19 06:00 81 25 93/42 (59) 100 07/09/19 05:00 85 25 104/46 (65) 100 07/09/19 05:00 81 26 100 Full Face 28 07/09/19 04:00 85 07/09/19 04:00 98.9 84 30 89/41 (57) 100 07/09/19 04:00 Nasal Cannula 3.0 07/09/19 04:00 Nasal Cannula 3.0 07/09/19 03:00 85 30 115/47 (69) 100 07/09/19 02:00 80 26 98/47 (64) 99 07/09/19 01:25 86 28 100 Full Face 28 07/09/19 01:00 81 25 94/45 (61) 100 07/09/19 00:00 Nasal Cannula 3.0 07/09/19 00:00 83 07/09/19 00:00 98.7 80 25 99/48 (65) 100 07/08/19 23:00 81 25 104/48 (66) 100 07/08/19 22:50 85 23 100 Bi-Pap 28 83 25 100 07/08/19 22:50 86 31 100 Full Face 28 07/08/19 22:00 82 25 95/45 (62) 100 07/08/19 21:00 81 24 100/45 (63) 100 07/08/19 20:00 98.3 86 31 108/47 (67) 100 07/08/19 20:00 Nasal Cannula 3.0 07/08/19 20:00 85 07/08/19 19:28 100 Nasal Cannula 2.0 28 07/08/19 19:28 78 20 100 Nasal Cannula 2.0 28 78 20 99 07/08/19 19:20 108/47 07/08/19 19:00 83 22 92/61 (71) 98 07/08/19 18:00 85 26 105/43 (63) 98 07/08/19 17:00 84 24 102/44 (63) 99 07/08/19 16:00 97.9 84 24 97/47 (64) 99 07/08/19 16:00 Nasal Cannula 3.0 07/08/19 16:00 85 07/08/19 15:19 79 20 100 Nasal Cannula 3.0 32 80 20 99 07/08/19 15:00 79 23 102/42 (62) 98 Intake and Output 07/09/19 07/10/19 19:00 07:00 Intake Total 535 ml 660 ml Output Total 525 ml 570 ml Balance 10 ml 90 ml Free Water 400 ml IV Total 455 ml Tube Feeding 80 ml 260 ml Output Urine Total 0 ml 20 ml Stool Total 525 ml 550 ml Labs Test 07/08/19 04:30 07/09/19 03:35 07/09/19 06:20 07/09/19 17:00 White Blood Count 31.9 K/UL (4.8-10.8) 33.1 K/UL (4.8-10.8) Red Blood Count 2.39 M/UL (4.70-6.10) 2.59 M/UL (4.70-6.10) Hemoglobin 7.4 G/DL (14.2-18.0) 8.1 G/DL (14.2-18.0) Hematocrit 24.0 % (42.0-52.0) 25.6 % (42.0-52.0) Mean Corpuscular Volume 100 FL (80-99) 99 FL (80-99) Mean Corpuscular Hemoglobin 31.1 PG (27.0-31.0) 31.4 PG (27.0-31.0) Mean Corpuscular Hemoglobin Concent 31.0 G/DL (32.0-36.0) 31.7 G/DL (32.0-36.0) Red Cell Distribution Width 25.4 % (11.6-14.8) 25.7 % (11.6-14.8) Platelet Count 145 K/UL (150-450) 141 K/UL (150-450) Mean Platelet Volume 9.6 FL (6.5-10.1) 12.5 FL (6.5-10.1) Neutrophils (%) (Auto) % (45.0-75.0) % (45.0-75.0) Lymphocytes (%) (Auto) % (20.0-45.0) % (20.0-45.0) Monocytes (%) (Auto) % (1.0-10.0) % (1.0-10.0) Eosinophils (%) (Auto) % (0.0-3.0) % (0.0-3.0) Basophils (%) (Auto) % (0.0-2.0) % (0.0-2.0) Differential Total Cells Counted 100 100 Neutrophils % (Manual) 84 % (45-75) 75 % (45-75) Lymphocytes % (Manual) 7 % (20-45) 5 % (20-45) Monocytes % (Manual) 5 % (1-10) 2 % (1-10) Eosinophils % (Manual) 0 % (0-3) 0 % (0-3) Basophils % (Manual) 0 % (0-2) 2 % (0-2) Band Neutrophils 4 % (0-8) 14 % (0-8) Platelet Estimate Decreased Decreased Platelet Morphology Normal Normal Polychromasia 1+ 1+ Hypochromasia 1+ 2+ Anisocytosis 3+ 2+ Macrocytosis 1+ 1+ Sodium Level 152 MMOL/L (136-145) 145 MMOL/L (136-145) Potassium Level 2.9 MMOL/L (3.5-5.1) 2.7 MMOL/L (3.5-5.1) Chloride Level 114 MMOL/L (98-107) 108 MMOL/L (98-107) Carbon Dioxide Level 22 MMOL/L (21-32) 23 MMOL/L (21-32) Anion Gap 16 mmol/L (5-15) 15 mmol/L (5-15) Blood Urea Nitrogen 54 mg/dL (7-18) 43 mg/dL (7-18) Creatinine 7.0 MG/DL (0.55-1.30) 5.8 MG/DL (0.55-1.30) Estimat Glomerular Filtration Rate 8.8 mL/min (>60) 10.9 mL/min (>60) Glucose Level 119 MG/DL (74-106) 118 MG/DL (74-106) Calcium Level 8.0 MG/DL (8.5-10.1) 7.7 MG/DL (8.5-10.1) Ammonia 62 umol/L (11-32) Metamyelocytes % 1 % (0-0) Myelocytes % 1 % (0-0) Phosphorus Level 4.2 MG/DL (2.5-4.9) Magnesium Level 2.3 MG/DL (1.8-2.4) Total Bilirubin 35.5 MG/DL (0.2-1.0) Direct Bilirubin 28.3 MG/DL (0.0-0.3) Aspartate Amino Transf (AST/SGOT) 177 U/L (15-37) Alanine Aminotransferase (ALT/SGPT) 20 U/L (12-78) Alkaline Phosphatase 237 U/L (46-116) Total Protein 5.0 G/DL (6.4-8.2) Albumin 1.8 G/DL (3.4-5.0) Globulin 3.2 g/dL Albumin/Globulin Ratio 0.6 (1.0-2.7) Random Vancomycin Level 21.5 ug/mL Test 07/10/19 04:00 White Blood Count 30.1 K/UL (4.8-10.8) Red Blood Count 2.30 M/UL (4.70-6.10) Hemoglobin 7.5 G/DL (14.2-18.0) Hematocrit 23.0 % (42.0-52.0) Mean Corpuscular Volume 100 FL (80-99) Mean Corpuscular Hemoglobin 32.4 PG (27.0-31.0) Mean Corpuscular Hemoglobin Concent 32.5 G/DL (32.0-36.0) Red Cell Distribution Width 22.8 % (11.6-14.8) Platelet Count 128 K/UL (150-450) Mean Platelet Volume 10.7 FL (6.5-10.1) Neutrophils (%) (Auto) % (45.0-75.0) Lymphocytes (%) (Auto) % (20.0-45.0) Monocytes (%) (Auto) % (1.0-10.0) Eosinophils (%) (Auto) % (0.0-3.0) Basophils (%) (Auto) % (0.0-2.0) Differential Total Cells Counted 100 Neutrophils % (Manual) 72 % (45-75) Lymphocytes % (Manual) 7 % (20-45) Monocytes % (Manual) 6 % (1-10) Eosinophils % (Manual) 0 % (0-3) Basophils % (Manual) 0 % (0-2) Metamyelocytes % 2 % (0-0) Myelocytes % 2 % (0-0) Band Neutrophils 11 % (0-8) Platelet Estimate Decreased Platelet Morphology Normal Anisocytosis 2+ Macrocytosis 1+ Sodium Level 149 MMOL/L (136-145) Potassium Level 2.8 MMOL/L (3.5-5.1) Chloride Level 110 MMOL/L (98-107) Carbon Dioxide Level 21 MMOL/L (21-32) Anion Gap 17 mmol/L (5-15) Blood Urea Nitrogen 57 mg/dL (7-18) Creatinine 7.5 MG/DL (0.55-1.30) Estimat Glomerular Filtration Rate 8.1 mL/min (>60) Glucose Level 122 MG/DL (74-106) Calcium Level 7.9 MG/DL (8.5-10.1) Phosphorus Level 5.5 MG/DL (2.5-4.9) Magnesium Level 2.4 MG/DL (1.8-2.4) Total Bilirubin 35.9 MG/DL (0.2-1.0) Direct Bilirubin 28.6 MG/DL (0.0-0.3) Aspartate Amino Transf (AST/SGOT) 202 U/L (15-37) Alanine Aminotransferase (ALT/SGPT) 20 U/L (12-78) Alkaline Phosphatase 263 U/L (46-116) Total Protein 4.9 G/DL (6.4-8.2) Albumin 1.6 G/DL (3.4-5.0) Globulin 3.3 g/dL Albumin/Globulin Ratio 0.5 (1.0-2.7) Lipase 369 U/L (73-393) Height (Feet): 5 Height (Inches): 9.00 Weight (Pounds): 230 Objective Physical Exam: Vitals: reviewed General Appearance: NAD HEENT: normocephalic, atraumatic ++ icterus jaundice, ng+ Neck: non-tender, normal alignment Respiratory/Chest: normal breath sounds bilaterally++ nc, BIPAP+ Cardiovascular/Chest: normal peripheral pulses, normal rate Abdomen: normal bowel sounds, soft,+ peg Extremities: normal range of motion Marty Kebede MD Jul 10, 2019 14:51
[2019-07-10] MEDS: DOPamine 400mg/250ml 250 ML IV SCH (14:53)
--- NOTE | 2019-07-10 16:11 | Surgery Progress Note ---
Surgery Progress Note Subjective Symptoms: other Additional Comments nt tube in wound stable Objective Last 24 Hour Vital Signs Date Time Temp Pulse Resp B/P (MAP) Pulse Ox O2 Delivery O2 Flow Rate FiO2 07/10/19 15:00 85 30 89/45 (60) 97 07/10/19 14:53 89/45 07/10/19 14:37 87 28 99 Nasal Cannula 2.0 28 85 27 96 07/10/19 14:00 84 28 88/44 (59) 97 07/10/19 13:00 85 31 90/45 (60) 98 07/10/19 12:00 99.4 86 29 96/49 (65) 96 07/10/19 12:00 Nasal Cannula 2.0 07/10/19 12:00 87 07/10/19 11:00 85 30 93/45 (61) 99 07/10/19 10:53 88 29 100 Nasal Cannula 2.0 28 88 28 97 07/10/19 10:00 86 27 91/42 (58) 96 07/10/19 09:00 84 27 84/42 (56) 95 07/10/19 08:00 88 07/10/19 08:00 Nasal Cannula 1.0 07/10/19 08:00 99.4 88 30 96/36 (56) 98 07/10/19 07:00 90 27 148/24 (65) 99 07/10/19 06:51 84 27 100 Nasal Cannula 2.0 28 86 26 100 07/10/19 06:51 100 Nasal Cannula 2.0 28 07/10/19 06:00 89 29 120/52 (74) 100 07/10/19 05:43 90 34 97 Facial 28 07/10/19 05:00 90 27 126/52 (76) 100 07/10/19 04:00 Nasal Cannula 3.0 07/10/19 04:00 91 07/10/19 04:00 99.0 91 29 96/42 (60) 100 07/10/19 03:32 87 29 100 Nasal Cannula 2.0 28 89 30 100 07/10/19 03:14 92 29 98 Facial 28 07/10/19 03:00 88 28 104/48 (66) 98 07/10/19 02:00 87 28 91/43 (59) 98 07/10/19 01:56 92 30 98 Facial 28 07/10/19 01:00 87 30 139/60 (86) 98 07/10/19 00:00 99.3 87 30 134/54 (80) 98 07/10/19 00:00 Nasal Cannula 3.0 07/09/19 23:40 87 24 100 Nasal Cannula 2.0 28 90 26 98 07/09/19 23:35 89 28 99 Facial 28 07/09/19 23:00 87 31 103/78 (86) 98 07/09/19 22:00 87 22 101/47 (65) 97 07/09/19 21:00 86 21 109/45 (66) 97 07/09/19 20:00 86 07/09/19 20:00 Nasal Cannula 3.0 07/09/19 20:00 99.0 90 30 92/46 (61) 97 07/09/19 19:52 97 Nasal Cannula 2.0 28 07/09/19 19:49 81 22 99 Nasal Cannula 2.0 28 84 26 97 07/09/19 19:20 100/50 07/09/19 19:00 84 30 93/50 (64) 97 07/09/19 18:00 83 28 97/41 (59) 100 07/09/19 17:00 82 26 81/38 (52) 96 I&O Intake and Output 07/09/19 07/10/19 19:00 07:00 Intake Total 535 ml 660 ml Output Total 525 ml 570 ml Balance 10 ml 90 ml Free Water 400 ml IV Total 455 ml Tube Feeding 80 ml 260 ml Output Urine Total 0 ml 20 ml Stool Total 525 ml 550 ml Dressing: dry Wound: clean Cardiovascular: RSR Respiratory: clear Abdomen: soft, non-tender, present bowel sounds Extremities: no cyanosis, other Laboratory Tests Test 07/09/19 17:00 07/10/19 04:00 Random Vancomycin Level 21.5 ug/mL White Blood Count 30.1 K/UL (4.8-10.8) *H Red Blood Count 2.30 M/UL (4.70-6.10) L Hemoglobin 7.5 G/DL (14.2-18.0) L Hematocrit 23.0 % (42.0-52.0) L Mean Corpuscular Volume 100 FL (80-99) H Mean Corpuscular Hemoglobin 32.4 PG (27.0-31.0) H Mean Corpuscular Hemoglobin Concent 32.5 G/DL (32.0-36.0) Red Cell Distribution Width 22.8 % (11.6-14.8) H Platelet Count 128 K/UL (150-450) L Mean Platelet Volume 10.7 FL (6.5-10.1) H Neutrophils (%) (Auto) % (45.0-75.0) Lymphocytes (%) (Auto) % (20.0-45.0) Monocytes (%) (Auto) % (1.0-10.0) Eosinophils (%) (Auto) % (0.0-3.0) Basophils (%) (Auto) % (0.0-2.0) Differential Total Cells Counted 100 Neutrophils % (Manual) 72 % (45-75) Lymphocytes % (Manual) 7 % (20-45) L Monocytes % (Manual) 6 % (1-10) Eosinophils % (Manual) 0 % (0-3) Basophils % (Manual) 0 % (0-2) Metamyelocytes % 2 % (0-0) H Myelocytes % 2 % (0-0) H Band Neutrophils 11 % (0-8) H Platelet Estimate Decreased L Platelet Morphology Normal Anisocytosis 2+ Macrocytosis 1+ Sodium Level 149 MMOL/L (136-145) H Potassium Level 2.8 MMOL/L (3.5-5.1) L Chloride Level 110 MMOL/L (98-107) H Carbon Dioxide Level 21 MMOL/L (21-32) Anion Gap 17 mmol/L (5-15) H Blood Urea Nitrogen 57 mg/dL (7-18) H Creatinine 7.5 MG/DL (0.55-1.30) H Estimat Glomerular Filtration Rate 8.1 mL/min (>60) Glucose Level 122 MG/DL (74-106) H Calcium Level 7.9 MG/DL (8.5-10.1) L Phosphorus Level 5.5 MG/DL (2.5-4.9) H Magnesium Level 2.4 MG/DL (1.8-2.4) Total Bilirubin 35.9 MG/DL (0.2-1.0) H Direct Bilirubin 28.6 MG/DL (0.0-0.3) H Aspartate Amino Transf (AST/SGOT) 202 U/L (15-37) H Alanine Aminotransferase (ALT/SGPT) 20 U/L (12-78) Alkaline Phosphatase 263 U/L (46-116) H Total Protein 4.9 G/DL (6.4-8.2) L Albumin 1.6 G/DL (3.4-5.0) L Globulin 3.3 g/dL Albumin/Globulin Ratio 0.5 (1.0-2.7) L Lipase 369 U/L (73-393) Plan Problems: (1) Pancreatitis, alcoholic, acute Assessment & Plan: Acute alcoholic pancreatitis. Levels fluctuating. Plan to check levels tomorrow Treat medically and conservatively for now If worsening leukocytosis may consider CT scan (2) Hepatorenal syndrome Assessment & Plan: Chronic liver disease acute, with acute pancreatitis and potential about her renal syndrome as noted. Currently stable treat conservatively no acute surgical intervention recommended Unfortunately invasive techniques not available at this facility Continue with ICU care and management (3) Respiratory failure (4) skin intergrety Assessment & Plan: Pt noted to have dry eschar bridge of nose. Periwound without erythema or fluctuance. Shearing noted to R and L clefts of buttocks. No exudate noted. Both heels firm and blanchable. Tx.Plan: Swab bridge of nose with Benzoin Tincture Twice Daily. Apply Moisture Barrier Paste to buttocks with each perineal care. Apply Cavilon Skin Barrier to both heels. Cover each heel with Optifoam drsg. Change every 7 days and prn. APM/MATTHEW mattress overlay. Reposition at least every 2hours or as tolerated. Off-load heels with pillow. (5) End-stage liver disease Assessment & Plan: DAILY ESTIMATED NEEDS: Needs based on Liver dz, 79kg adj 25-30 kcals/kg 6716-3431 total kcals 1-1.5 (w/ HD 1.2-1.8) g protein/kg 79-119g (w/ HD 95-142g) g total protein Fluid per MD NUTRITION DIAGNOSIS: * Decreased sodium and fat needs r/t liver disease, cirrhosis, acute pancreatitis as evidenced by Abd US, elev T bili (33.5), pt is jaundiced, fatty liver, elev ammonia and AST, elev lipse (643), h/o etoh abuse, adm w/ elev serum alcohol. * Swallowing difficulty R/T confusion, dysphagia as evidenced by NGT feeding initiated, seen by [employer] w/ rec to continue nonoral feeds at this time. CURRENT TF: NEPRO @45 + PS x1 PO DIET RECOMMENDATIONS: WHEN SAFE FOR ORAL FEEDING -> LOW NA/ LOW FAT (texture per [employer]) ENTERAL NUTRITION RECOMMENDATIONS: MAINTAIN NEPRO W/ DIALYSIS TXT: Nepro @45ml/hr x24 hrs + PS x1 to provide 1080ml, 1944 kcal, 87g pro, 785ml free H20 * Maintain Nepro @45ml/hr as tolerated. * Add Prosource x1 pack daily to better meet est pro needs on HD * HOB over 30 degrees/ water flush per MD ADDITIONAL RECOMMENDATIONS: 1) Calibrated bedscale wt 2) Monitor for ability to start oral feeding 3) Check lytes daily 4) Rec to re-add thiamine + Folate daily, add MVI x 1 5) REC TF CHANGE TO NEPRO W/ DIALYSIS TXT 6) Monitor BGs closely, need for hypoglycemics (6) Acute alcoholic intoxication Kennedy Ellison Jul 10, 2019 16:11
--- NOTE | 2019-07-10 17:13 | Pulmonolgy Critical Care Note ---
Critical Care - Asmt/Plan Assessment/Plan: Pulmonary CCM Progress Note HPI This is a 39-year-old male who is an alcoholic with significant fatty liver on abdominal CT and alcoholic hepatitis, liver failure c/b multiorgan failure. He has been drinking heavily for 3 months straight, having stopped drinking [employer]. Noted to have Hepatic Encephalopathy and Hepatorenal Syndrome. No bleeding. Noted to have significant hypokalemia and acidosis, now on HD, s/ p Paracentesis previously On NC, BiPAP PRN, NGT, on Lactulose On Hemodialysis for worsening acidosis, uremia More interactive today BP stable, Midodrine, PRN levophed to maintain BP Allergies: No Known Allergies Past Medical History: Alcohol abuse All Other Systems: negative except mentioned in HPI Physical Exam Vital Signs Noted General Appearance: Jaundiced, awake Head: normocephalic, atraumatic, HD catheter Eyes: bilateral eye PERRL, bilateral eye EOMI, bilateral eye scleral icterus ENT: moist mm Neck: no masses, no LN Respiratory: chest non-tender, lungs clear, normal breath sounds Cardiovascular: regular rate, rhythm, Normal HS1, HS2, no murmur, tachycardia Gastrointestinal: Obese, hepatomegaly, some tenderness RUQ, normal bowel sounds , no mass, no rebound Musculoskeletal: moves all limbs Neurologic: responds to commands, awake Skin: jaundiced, mild edema Impression: Acute alcoholic intoxication Severe Sepsis Alcoholic Hepatitis Possible Cirrhosis Hepatorenal syndrome - worsening renal function - on HD Multiorgan Failure Extremelt poor prognosis Possible Portal Hypertension Hypernatremia Pancreatitis, alcoholic, acute Anemia Plan ICU management NPO except meds/NGT feeds IV antibiotics per ID Aspiration precautions BiPAP PRN NC O2 GI/Renal following HD per Nephrology Pressors PRN Transfuse PRN Thiamine Monitor labs Adjust FIO2 - sats 90-96% Patient has extremely poor prognosis Ongoing attempts with family discussions wrt possible DNR/DNI status Labs: noted EKG: Rate: tachycardiac Rhythm: NSR ST Segments: other - NSST changes Chest X-Ray: no significant change, hypoventilatory exam, no consolidation, no effusion, no pneumothorax, no acute cardiopulmonary disease CT abdomen pelvis: Severely enlarged liver and fatty liver. Mild ascites. Critical Care - Objective Last 24 Hour Vital Signs Date Time Temp Pulse Resp B/P (MAP) Pulse Ox O2 Delivery O2 Flow Rate FiO2 07/10/19 17:00 85 29 100/42 (61) 98 07/10/19 17:00 87 28 93/46 (62) 97 07/10/19 16:00 98.7 85 29 100/42 (61) 98 07/10/19 16:00 Nasal Cannula 2.0 07/10/19 15:00 85 30 89/45 (60) 97 07/10/19 14:53 89/45 07/10/19 14:37 87 28 99 Nasal Cannula 2.0 28 85 27 96 07/10/19 14:00 84 28 88/44 (59) 97 07/10/19 13:00 85 31 90/45 (60) 98 07/10/19 12:00 99.4 86 29 96/49 (65) 96 07/10/19 12:00 Nasal Cannula 2.0 07/10/19 12:00 87 07/10/19 11:00 85 30 93/45 (61) 99 07/10/19 10:53 88 29 100 Nasal Cannula 2.0 28 88 28 97 07/10/19 10:00 86 27 91/42 (58) 96 07/10/19 09:00 84 27 84/42 (56) 95 07/10/19 08:00 88 07/10/19 08:00 Nasal Cannula 1.0 07/10/19 08:00 99.4 88 30 96/36 (56) 98 07/10/19 07:00 90 27 148/24 (65) 99 07/10/19 06:51 84 27 100 Nasal Cannula 2.0 28 86 26 100 07/10/19 06:51 100 Nasal Cannula 2.0 28 07/10/19 06:00 89 29 120/52 (74) 100 07/10/19 05:43 90 34 97 Facial 28 07/10/19 05:00 90 27 126/52 (76) 100 07/10/19 04:00 Nasal Cannula 3.0 07/10/19 04:00 91 07/10/19 04:00 99.0 91 29 96/42 (60) 100 07/10/19 03:32 87 29 100 Nasal Cannula 2.0 28 89 30 100 07/10/19 03:14 92 29 98 Facial 28 07/10/19 03:00 88 28 104/48 (66) 98 07/10/19 02:00 87 28 91/43 (59) 98 07/10/19 01:56 92 30 98 Facial 28 07/10/19 01:00 87 30 139/60 (86) 98 07/10/19 00:00 99.3 87 30 134/54 (80) 98 07/10/19 00:00 Nasal Cannula 3.0 07/09/19 23:40 87 24 100 Nasal Cannula 2.0 28 90 26 98 07/09/19 23:35 89 28 99 Facial 28 07/09/19 23:00 87 31 103/78 (86) 98 07/09/19 22:00 87 22 101/47 (65) 97 07/09/19 21:00 86 21 109/45 (66) 97 07/09/19 20:00 86 07/09/19 20:00 Nasal Cannula 3.0 07/09/19 20:00 99.0 90 30 92/46 (61) 97 07/09/19 19:52 97 Nasal Cannula 2.0 28 07/09/19 19:49 81 22 99 Nasal Cannula 2.0 28 84 26 97 07/09/19 19:20 100/50 07/09/19 19:00 84 30 93/50 (64) 97 07/09/19 18:00 83 28 97/41 (59) 100 Critical Care - Subjective ROS Limited/Unobtainable: No FI02: 28 Vent Support Mode: BiLevel Sputum Amount: None Tube Feeding Amount: 0 I&O: Intake and Output 07/09/19 07/10/19 19:00 07:00 Intake Total 535 ml 660 ml Output Total 525 ml 570 ml Balance 10 ml 90 ml Free Water 400 ml IV Total 455 ml Tube Feeding 80 ml 260 ml Output Urine Total 0 ml 20 ml Stool Total 525 ml 550 ml Quang Domingo MD Jul 10, 2019 17:13
[2019-07-10] MEDS: Dyna-Hex 2% Top Sol 2oz TOPIC SCH (20:37)
--- NOTE | 2019-07-10 21:38 | General Progress Note ---
Assessment/Plan Problem List: (1) Anemia ICD Codes: D64.9 - Anemia, unspecified SNOMED: 832667050 Qualifiers: Qualified Codes: D64.9 - Anemia, unspecified (2) Acute alcoholic intoxication ICD Codes: F10.929 - Alcohol use, unspecified with intoxication, unspecified SNOMED: 49008416, 5913325 Qualifiers: Qualified Codes: F10.920 - Alcohol use, unspecified with intoxication, uncomplicated (3) End-stage liver disease ICD Codes: K72.90 - Hepatic failure, unspecified without coma SNOMED: 592578964 (4) Hepatorenal syndrome ICD Codes: K76.7 - Hepatorenal syndrome SNOMED: 79511610, 8354693 (5) Pancreatitis, alcoholic, acute ICD Codes: K85.20 - Alcohol induced acute pancreatitis without necrosis or infection SNOMED: 845263957, 5595769 Qualifiers: Qualified Codes: K85.20 - Alcohol induced acute pancreatitis without necrosis or infection (6) Respiratory failure ICD Codes: J96.90 - Respiratory failure, unspecified, unspecified whether with hypoxia or hypercapnia SNOMED: 810746861 Status: stable, progressing, deteriorating Assessment/Plan: jaundiced distended abdomen w ascites afebrile critical condition and poor prognosis hepatic encephalopathy malnutrition favor comfort care elevated lft s/p paracentesis hepatorenal syndrome getting worse Subjective ROS Limited/Unobtainable: Yes Allergies: Coded Allergies: No Known Allergies (Unverified , 06/20/19) Objective Last 24 Hour Vital Signs Date Time Temp Pulse Resp B/P (MAP) Pulse Ox O2 Delivery O2 Flow Rate FiO2 07/10/19 21:00 89 32 95/45 (62) 99 07/10/19 20:00 Nasal Cannula 2.0 07/10/19 20:00 99.1 88 32 102/47 (65) 100 07/10/19 20:00 85 07/10/19 19:37 86 22 100 Nasal Cannula 2.0 28 07/10/19 19:36 87 33 99/41 (60) 98 07/10/19 19:27 84 23 98 07/10/19 19:26 98 Nasal Cannula 2.0 28 07/10/19 19:20 102/47 07/10/19 19:09 81 22 89/40 (56) 100 07/10/19 19:00 84 30 87/48 (61) 95 07/10/19 18:00 85 27 96/45 (62) 99 07/10/19 17:00 85 29 100/42 (61) 98 07/10/19 17:00 87 28 93/46 (62) 97 07/10/19 16:00 98.7 85 29 100/42 (61) 98 07/10/19 16:00 Nasal Cannula 2.0 07/10/19 16:00 85 07/10/19 15:00 85 30 89/45 (60) 97 07/10/19 14:53 89/45 07/10/19 14:37 87 28 99 Nasal Cannula 2.0 28 85 27 96 07/10/19 14:00 84 28 88/44 (59) 97 07/10/19 13:00 85 31 90/45 (60) 98 07/10/19 12:00 99.4 86 29 96/49 (65) 96 07/10/19 12:00 Nasal Cannula 2.0 07/10/19 12:00 87 07/10/19 11:00 85 30 93/45 (61) 99 07/10/19 10:53 88 29 100 Nasal Cannula 2.0 28 88 28 97 07/10/19 10:00 86 27 91/42 (58) 96 07/10/19 09:00 84 27 84/42 (56) 95 07/10/19 08:00 88 07/10/19 08:00 Nasal Cannula 1.0 07/10/19 08:00 99.4 88 30 96/36 (56) 98 07/10/19 07:00 90 27 148/24 (65) 99 07/10/19 06:51 84 27 100 Nasal Cannula 2.0 28 86 26 100 07/10/19 06:51 100 Nasal Cannula 2.0 28 07/10/19 06:00 89 29 120/52 (74) 100 07/10/19 05:43 90 34 97 Facial 28 07/10/19 05:00 90 27 126/52 (76) 100 07/10/19 04:00 Nasal Cannula 3.0 07/10/19 04:00 91 07/10/19 04:00 99.0 91 29 96/42 (60) 100 07/10/19 03:32 87 29 100 Nasal Cannula 2.0 28 89 30 100 07/10/19 03:14 92 29 98 Facial 28 07/10/19 03:00 88 28 104/48 (66) 98 07/10/19 02:00 87 28 91/43 (59) 98 07/10/19 01:56 92 30 98 Facial 28 07/10/19 01:00 87 30 139/60 (86) 98 07/10/19 00:00 99.3 87 30 134/54 (80) 98 07/10/19 00:00 Nasal Cannula 3.0 07/09/19 23:40 87 24 100 Nasal Cannula 2.0 28 90 26 98 07/09/19 23:35 89 28 99 Facial 28 07/09/19 23:00 87 31 103/78 (86) 98 07/09/19 22:00 87 22 101/47 (65) 97 Intake and Output 07/09/19 07/10/19 18:59 06:59 Intake Total 535 ml 660 ml Output Total 585 ml 570 ml Balance -50 ml 90 ml Free Water 400 ml IV Total 455 ml Tube Feeding 80 ml 260 ml Output Urine Total 60 ml 20 ml Stool Total 525 ml 550 ml Laboratory Tests 07/10/19 04:00: White Blood Count 30.1*H, Red Blood Count 2.30L, Hemoglobin 7.5L, Hematocrit 23.0L, Mean Corpuscular Volume 100H, Mean Corpuscular Hemoglobin 32.4H, Mean Corpuscular Hemoglobin Concent 32.5, Red Cell Distribution Width 22.8H, Platelet Count 128L, Mean Platelet Volume 10.7H, Neutrophils (%) (Auto) , Lymphocytes (%) (Auto) , Monocytes (%) (Auto) , Eosinophils (%) (Auto) , Basophils (%) (Auto) , Differential Total Cells Counted 100, Neutrophils % ( Manual) 72, Lymphocytes % (Manual) 7L, Monocytes % (Manual) 6, Eosinophils % ( Manual) 0, Basophils % (Manual) 0, Metamyelocytes % 2H, Myelocytes % 2H, Band Neutrophils 11H, Platelet Estimate DecreasedL, Platelet Morphology Normal, Anisocytosis 2+, Macrocytosis 1+, Sodium Level 149H, Potassium Level 2.8L, Chloride Level 110H, Carbon Dioxide Level 21, Anion Gap 17H, Blood Urea Nitrogen 57H, Creatinine 7.5H, Estimat Glomerular Filtration Rate 8.1, Glucose Level 122H, Calcium Level 7.9L, Phosphorus Level 5.5H, Magnesium Level 2.4, Total Bilirubin 35.9H, Direct Bilirubin 28.6H, Aspartate Amino Transf (AST/SGOT ) 202H, Alanine Aminotransferase (ALT/SGPT) 20, Alkaline Phosphatase 263H, Total Protein 4.9L, Albumin 1.6L, Globulin 3.3, Albumin/Globulin Ratio 0.5L, Lipase 369 Height (Feet): 5 Height (Inches): 9.00 Weight (Pounds): 230 Cardiovascular: normal rate Respiratory/Chest: lungs clear Deejay Saldaña MD Jul 10, 2019 21:38
[2019-07-11] VITALS (46 sets, daily range): BP systolic 68–144; BP diastolic 31–127
[2019-07-11] MEDS: Albuterol/Ipratropium 3ml neb HHN SCH ×6 (03:53→23:05)
[2019-07-11 07:02] LABS: ALANINE AMINOTRANSFERASE 9 U/L (12-78); ALBUMIN 1.6 G/DL (3.4-5.0); ALBUMIN/GLOBULIN RATIO 0.5 (1.0-2.7); ALKALINE PHOSPHATASE 256 U/L (46-116); ANION GAP 20 mmol/L (5-15); ASPARTATE AMINO TRANSFERASE 183 U/L (15-37); BILIRUBIN,TOTAL 35.9 MG/DL (0.2-1.0); BLOOD UREA NITROGEN 70 mg/dL (7-18); CALCIUM 7.7 MG/DL (8.5-10.1); CARBON DIOXIDE 18 MMOL/L (21-32); CHLORIDE 113 MMOL/L (98-107); CREATININE 9.1 MG/DL (0.55-1.30); POTASSIUM 3.1 MMOL/L (3.5-5.1); SODIUM 151 MMOL/L (136-145)
[2019-07-11 07:06] LABS: BILIRUBIN,DIRECT 28.4 MG/DL (0.0-0.3)
--- NOTE | 2019-07-11 09:05 | General Progress Note ---
Assessment/Plan Problem List: (1) Pancreatitis, alcoholic, acute ICD Codes: K85.20 - Alcohol induced acute pancreatitis without necrosis or infection SNOMED: 236840854, 8559307 Qualifiers: Qualified Codes: K85.20 - Alcohol induced acute pancreatitis without necrosis or infection (2) Acute alcoholic intoxication ICD Codes: F10.929 - Alcohol use, unspecified with intoxication, unspecified SNOMED: 58671841, 9667691 Qualifiers: Qualified Codes: F10.920 - Alcohol use, unspecified with intoxication, uncomplicated (3) Anemia ICD Codes: D64.9 - Anemia, unspecified SNOMED: 134263024 Qualifiers: Qualified Codes: D64.9 - Anemia, unspecified Status: stable, progressing, deteriorating Assessment/Plan: NGTF repeat labs fu nephrology cont lactulose xifaxan prn paracentesis>> reordered for today repeat KUB>> ? ileus poor prognosis Subjective ROS Limited/Unobtainable: No Allergies: Coded Allergies: No Known Allergies (Unverified , 06/20/19) Objective Last 24 Hour Vital Signs Date Time Temp Pulse Resp B/P (MAP) Pulse Ox O2 Delivery O2 Flow Rate FiO2 07/11/19 08:00 88 07/11/19 08:00 98.5 86 22 93/35 (54) 94 07/11/19 07:53 Nasal Cannula 2.0 07/11/19 07:22 87 25 88/39 (55) 98 07/11/19 07:05 85 29 92/40 (57) 100 07/11/19 06:57 100 Nasal Cannula 3.0 32 07/11/19 06:57 85 26 100 Nasal Cannula 3.0 32 84 24 100 07/11/19 06:00 84 24 95/43 (60) 100 07/11/19 05:00 83 25 90/40 (57) 100 07/11/19 05:00 84 25 100 Facial 28 07/11/19 04:03 81 27 100 Bi-Pap 28 07/11/19 04:00 Bi-pap 07/11/19 04:00 28 07/11/19 04:00 83 07/11/19 04:00 99.2 82 25 90/40 (57) 100 07/11/19 03:53 81 23 100 07/11/19 03:51 81 23 100 Facial 28 07/11/19 03:00 85 23 102/41 (61) 100 07/11/19 02:00 85 25 108/37 (60) 100 07/11/19 01:07 89 25 103/45 (64) 100 07/11/19 01:03 89 31 88/61 (70) 100 07/11/19 01:00 88 25 90/65 (73) 100 07/11/19 00:38 89 30 99 Facial 28 07/11/19 00:00 28 07/11/19 00:00 90 07/11/19 00:00 Bi-pap 07/11/19 00:00 99.0 91 23 144/127 (133) 100 07/10/19 23:04 82 28 98 Facial 28 07/10/19 23:03 82 22 98 Nasal Cannula 2.0 28 07/10/19 23:00 84 28 122/80 (94) 85 07/10/19 22:53 88 33 97 07/10/19 22:00 87 28 99/43 (61) 100 07/10/19 21:00 89 32 95/45 (62) 99 07/10/19 20:00 Nasal Cannula 2.0 07/10/19 20:00 99.1 88 32 102/47 (65) 100 07/10/19 20:00 2.0 07/10/19 20:00 85 07/10/19 19:37 86 22 100 Nasal Cannula 2.0 28 07/10/19 19:36 87 33 99/41 (60) 98 07/10/19 19:27 84 23 98 07/10/19 19:26 98 Nasal Cannula 2.0 28 07/10/19 19:20 102/47 07/10/19 19:09 81 22 89/40 (56) 100 07/10/19 19:00 84 30 87/48 (61) 95 07/10/19 18:00 85 27 96/45 (62) 99 07/10/19 17:00 85 29 100/42 (61) 98 07/10/19 17:00 87 28 93/46 (62) 97 07/10/19 16:00 98.7 85 29 100/42 (61) 98 07/10/19 16:00 Nasal Cannula 2.0 07/10/19 16:00 85 07/10/19 15:00 85 30 89/45 (60) 97 07/10/19 14:53 89/45 07/10/19 14:37 87 28 99 Nasal Cannula 2.0 28 85 27 96 07/10/19 14:00 84 28 88/44 (59) 97 07/10/19 13:00 85 31 90/45 (60) 98 07/10/19 12:00 99.4 86 29 96/49 (65) 96 07/10/19 12:00 Nasal Cannula 2.0 07/10/19 12:00 87 07/10/19 11:00 85 30 93/45 (61) 99 07/10/19 10:53 88 29 100 Nasal Cannula 2.0 28 88 28 97 07/10/19 10:00 86 27 91/42 (58) 96 Intake and Output 07/10/19 07/11/19 19:00 07:00 Intake Total 985.000 ml 55 ml Output Total 900 ml 900 ml Balance 85.000 ml -845 ml Free Water 10 ml 30 ml IV Total 930.000 ml Tube Feeding 25 ml 25 ml Other 20 ml Output Urine Total 0 ml 0 ml Stool Total 900 ml 900 ml Laboratory Tests 07/11/19 04:00: Sodium Level 151H, Potassium Level 3.1L, Chloride Level 113H, Carbon Dioxide Level 18L, Anion Gap 20H, Blood Urea Nitrogen 70H, Creatinine 9.1H, Estimat Glomerular Filtration Rate 6.5, Glucose Level 116H, Uric Acid 14.2H, Calcium Level 7.7L, Phosphorus Level 7.0H, Total Bilirubin 35.9H, Direct Bilirubin 28.4H , Aspartate Amino Transf (AST/SGOT) 183H, Alanine Aminotransferase (ALT/SGPT) 9L , Alkaline Phosphatase 256H, Ammonia 48H, Total Protein 4.9L, Albumin 1.6L, Globulin 3.3, Albumin/Globulin Ratio 0.5L Height (Feet): 5 Height (Inches): 9.00 Weight (Pounds): 229 General Appearance: lethargic EENT: scleral icterus Neck: supple Cardiovascular: normal rate Respiratory/Chest: decreased breath sounds Abdomen: hypoactive bowel sounds, distended Extremities: non-tender Merlin Esopsito MD Jul 11, 2019 09:05
[2019-07-11] MEDS: Thiamine 100mg tab ORAL SCH (09:34)
[2019-07-11] MEDS: Lactulose 20gm/30ml UDC NG SCH ×4 (09:34→21:29)
--- NOTE | 2019-07-11 09:43 | Hematology/Onc Progress Note ---
Assessment/Plan Assessment/Plan Assessment and Recs: # Thrombocytopenia - potential causes multifactorial, does have a history of etoh abuse, cirrhosis of the liver, hepatosplenomegaly, portal HTN, coagulopathy noted as well, likely oscillatory pattern can be due to abx as well. Hep panel and HIV ordered (NEG) --> US abd does show, portal htn and cirrhosis ++ --> Peripheral smear ordered to evaluate for blasts /schistocytes reviewed and is negative --> abx and other meds have been reviewed --> ok for ppx if plt >50k w/ either heparin or lovenox --> Transfuse if Plt < 20k and fever, or if Plt < 10k without fever --> plt trend 80-->97-->117-->157k->216k-->107k-->72k-->68k-->109k-->108k-->148k -->176k-->182k->141k-->128k # Anemia of chronic disease due to underlying chronic medical issues, multifactorial (myelosuprresion noted) --> Anemia workup has been reviewed, ferritin 297 --> EPOGEN HAS BEEN ORDERED WITH HD --> Hgb goal >7. Transfuse prn. --> Medications have been reviewed --> low threshold for gi evaluation in case has occult + --> hgb trend: 7.7-->8.2-->9->8.4-->8.3-->8.2-->8-->7.4->7.3-->7.7-->7.8-->7.6-- >8.1->7.5 --> serum electrophoresis shows no m-spike 06/27 # Coagulopathy due to cirrhosis --> give Vitk as needed # Leukocytosis with sepsis is on abx --> ID following, appreciate recs --> wbc trend: 17k-->13.9-->19.5-->18.7-->27.4-->33.6->32--->33-->30 --> FLAGYL and CTX-> vanc/amish # Acute alcoholic intoxication --> etoh abuse history --> thiamine, folic acid, ivf # End-stage liver disease --> Hepatorenal syndrome r/o with renal, albumin prn # Pancreatitis, alcoholic, acute # Tachycardia # ESRD --> on had as per renal # Dvt ppx with scds given low plts # POOR PROGNOSIS The timing of this note does not necessarily reflect the time of the patient was seen. GREATLY APPRECIATE CONSULTATION. Subjective Constitutional: Denies: no symptoms, chills, fever, malaise, weakness, other HEENT: Denies: no symptoms, eye pain, blurred vision, tearing, double vision, ear pain, ear discharge, nose pain, nose congestion, throat pain, throat swelling, mouth pain, mouth swelling, other Cardiovascular: Denies: no symptoms, chest pain, edema, irregular heart rate, lightheadedness, palpitations, syncope, other Respiratory: Denies: no symptoms, cough, shortness of breath, SOB with excertion, SOB at rest, sputum, wheezing, other Gastrointestinal/Abdominal: Denies: no symptoms, abdomen distended, abdominal pain, black stools, tarry stools, blood in stool, constipated, diarrhea, difficulty swallowing, nausea, poor appetite, poor fluid intake, rectal bleeding , vomiting, other Genitourinary: Denies: no symptoms, burning, discharge, frequency, flank pain, hematuria, incontinence, pain, urgency, other Neurologic/Psychiatric: Denies: no symptoms, anxiety, depressed, emotional problems, headache, numbness, paresthesia, pre-existing deficit, seizure, tingling, tremors, weakness, other Allergies: Coded Allergies: No Known Allergies (Unverified , 06/20/19) Subjective 06/21: low k, ferritin 297, h/h stable, afebrile, blood transfused 06/22: in icu, on restraints, labs reviewed, no f/c, imaging reviewed 06/23: pain meds given, remains in icu, again in restraints, bili higher, inr as well, given vitk 06/25: no fevers, no chills, no bleeding, confused in bed in icu 06/26: no events to report, no bleeding, remains in icu, ++ bipap 06/27: icu,s/p paracentesis yesterday, off pressors, h/h stable 06/28: on ctx/flagyl, remains confused, no bleeding, plt is lower 06/29: no f/c, on abx, no acute events, no distress, labs reviewed 06/30: remains in the icu, on abx, no f/c, scds+ 07/02: remains in the icu, no fevers or chills, prbc ordered, as well as epo 07/03: remains in the icu, on restraints, on abx, labs noted, vs stable, no acute events 07/04: dw team and agree patient with very poor prognosis, pending bioethics consult 07/05: remains in icu, very poor prognosis, labs noted wbc 27.4, off bipap receiving repiratory tx 07/06: remains icu, very poor prognosis, wbc 33.6 trending up, no f/c, vs stable , on bipap, paracentesis pending 07/08: remains in the icu, labs look worse, though repsonding better this am, able to raise hands 07/09: no events, hd was done, no events, labs noted, no bleeding 07/10: remains borderline in re to mental status, no f/c, no bleeding in the icu 07/11: no events to report, is on lactulose, xiafan, para ordered Objective Objective Current Medications Medications (Trade) Dose Ordered Sig/Gabriela Route PRN Reason Start Time Stop Time Status Last Admin Dose Admin Albuterol/ Ipratropium (Albuterol/ Ipratropium) 3 ml Q4HRT HHN 07/09/19 15:30 07/14/19 15:29 07/11/19 06:56 Chlorhexidine Gluconate (Emilie-Hex 2%) 1 applic DAILY@2000 TOPIC 06/26/19 20:00 07/26/19 19:59 07/10/19 20:37 Dopamine HCl/ Dextrose 250 ml @ 0 mls/hr Q24H IV 06/30/19 14:53 07/30/19 14:52 07/05/19 12:42 Epoetin Michael (Epoetin Michael(ESRD on dialysis)) 2,000 unit TUE-TUE-TUE SUBQ 07/02/19 21:00 08/01/19 20:59 07/09/19 21:14 Epoetin Michael (Epoetin Michael(ESRD on dialysis)) 3,000 unit TUE-TUE-TUE SUBQ 07/02/19 21:00 08/01/19 20:59 07/09/19 21:22 Lactulose (Cephulac) 30 gm FOUR TIMES A DAY NG 07/01/19 09:00 07/20/19 12:59 07/11/19 09:34 Lansoprazole (Prevacid) 30 mg BID NG 07/11/19 09:00 08/10/19 08:59 07/11/19 09:34 Meropenem 500 mg/ Sodium Chloride 55 ml @ 110 mls/hr Q24H IVPB 07/10/19 12:00 07/15/19 11:59 07/10/19 12:00 Multivitamins (Multivitamins) 1 tab DAILY ORAL 07/10/19 09:00 08/09/19 08:59 07/11/19 09:34 Norepinephrine Bitartrate 4 mg/ Dextrose 250 ml @ 0 mls/hr Q24H IV 07/06/19 19:20 08/05/19 19:19 Potassium Chloride 100 ml @ 50 mls/hr ONCE ONCE IVPB 07/11/19 08:00 07/11/19 09:59 07/11/19 08:31 Potassium Chloride 100 ml @ 50 mls/hr ONCE ONCE IVPB 07/11/19 10:00 07/11/19 11:59 Thiamine HCl (Vitamin B1) 100 mg DAILY ORAL 07/10/19 09:00 08/09/19 08:59 07/11/19 09:34 Vancomycin HCl (Vanco rx to dose) 1 ea DAILY PRN MISC Per rx protocol 07/05/19 10:45 08/04/19 10:44 Last 24 Hour Vital Signs Date Time Temp Pulse Resp B/P (MAP) Pulse Ox O2 Delivery O2 Flow Rate FiO2 07/11/19 08:00 88 07/11/19 08:00 98.5 86 22 93/35 (54) 94 07/11/19 07:53 Nasal Cannula 2.0 07/11/19 07:22 87 25 88/39 (55) 98 07/11/19 07:05 85 29 92/40 (57) 100 07/11/19 06:57 100 Nasal Cannula 3.0 32 07/11/19 06:57 85 26 100 Nasal Cannula 3.0 32 84 24 100 07/11/19 06:00 84 24 95/43 (60) 100 07/11/19 05:00 83 25 90/40 (57) 100 07/11/19 05:00 84 25 100 Facial 28 07/11/19 04:03 81 27 100 Bi-Pap 28 07/11/19 04:00 Bi-pap 07/11/19 04:00 28 07/11/19 04:00 83 07/11/19 04:00 99.2 82 25 90/40 (57) 100 07/11/19 03:53 81 23 100 07/11/19 03:51 81 23 100 Facial 28 07/11/19 03:00 85 23 102/41 (61) 100 07/11/19 02:00 85 25 108/37 (60) 100 07/11/19 01:07 89 25 103/45 (64) 100 07/11/19 01:03 89 31 88/61 (70) 100 07/11/19 01:00 88 25 90/65 (73) 100 07/11/19 00:38 89 30 99 Facial 28 07/11/19 00:00 28 07/11/19 00:00 90 07/11/19 00:00 Bi-pap 07/11/19 00:00 99.0 91 23 144/127 (133) 100 07/10/19 23:04 82 28 98 Facial 28 07/10/19 23:03 82 22 98 Nasal Cannula 2.0 28 07/10/19 23:00 84 28 122/80 (94) 85 07/10/19 22:53 88 33 97 07/10/19 22:00 87 28 99/43 (61) 100 07/10/19 21:00 89 32 95/45 (62) 99 07/10/19 20:00 Nasal Cannula 2.0 07/10/19 20:00 99.1 88 32 102/47 (65) 100 07/10/19 20:00 2.0 07/10/19 20:00 85 07/10/19 19:37 86 22 100 Nasal Cannula 2.0 28 07/10/19 19:36 87 33 99/41 (60) 98 07/10/19 19:27 84 23 98 07/10/19 19:26 98 Nasal Cannula 2.0 28 07/10/19 19:20 102/47 07/10/19 19:09 81 22 89/40 (56) 100 07/10/19 19:00 84 30 87/48 (61) 95 07/10/19 18:00 85 27 96/45 (62) 99 07/10/19 17:00 85 29 100/42 (61) 98 07/10/19 17:00 87 28 93/46 (62) 97 07/10/19 16:00 98.7 85 29 100/42 (61) 98 07/10/19 16:00 Nasal Cannula 2.0 07/10/19 16:00 85 07/10/19 15:00 85 30 89/45 (60) 97 07/10/19 14:53 89/45 07/10/19 14:37 87 28 99 Nasal Cannula 2.0 28 85 27 96 07/10/19 14:00 84 28 88/44 (59) 97 07/10/19 13:00 85 31 90/45 (60) 98 07/10/19 12:00 99.4 86 29 96/49 (65) 96 07/10/19 12:00 Nasal Cannula 2.0 07/10/19 12:00 87 07/10/19 11:00 85 30 93/45 (61) 99 07/10/19 10:53 88 29 100 Nasal Cannula 2.0 28 88 28 97 07/10/19 10:00 86 27 91/42 (58) 96 07/10/19 09:00 84 27 84/42 (56) 95 07/10/19 08:00 88 07/10/19 08:00 Nasal Cannula 1.0 07/10/19 08:00 99.4 88 30 96/36 (56) 98 07/10/19 07:00 90 27 148/24 (65) 99 07/10/19 06:51 84 27 100 Nasal Cannula 2.0 28 86 26 100 07/10/19 06:51 100 Nasal Cannula 2.0 28 07/10/19 06:00 89 29 120/52 (74) 100 07/10/19 05:43 90 34 97 Facial 28 07/10/19 05:00 90 27 126/52 (76) 100 07/10/19 04:00 Nasal Cannula 3.0 07/10/19 04:00 91 07/10/19 04:00 99.0 91 29 96/42 (60) 100 07/10/19 03:32 87 29 100 Nasal Cannula 2.0 28 89 30 100 07/10/19 03:14 92 29 98 Facial 28 07/10/19 03:00 88 28 104/48 (66) 98 07/10/19 02:00 87 28 91/43 (59) 98 07/10/19 01:56 92 30 98 Facial 28 07/10/19 01:00 87 30 139/60 (86) 98 07/10/19 00:00 99.3 87 30 134/54 (80) 98 07/10/19 00:00 Nasal Cannula 3.0 07/09/19 23:40 87 24 100 Nasal Cannula 2.0 28 90 26 98 07/09/19 23:35 89 28 99 Facial 28 07/09/19 23:00 87 31 103/78 (86) 98 07/09/19 22:00 87 22 101/47 (65) 97 07/09/19 21:00 86 21 109/45 (66) 97 07/09/19 20:00 86 07/09/19 20:00 Nasal Cannula 3.0 07/09/19 20:00 99.0 90 30 92/46 (61) 97 07/09/19 19:52 97 Nasal Cannula 2.0 28 07/09/19 19:49 81 22 99 Nasal Cannula 2.0 28 84 26 97 07/09/19 19:20 100/50 07/09/19 19:00 84 30 93/50 (64) 97 07/09/19 18:00 83 28 97/41 (59) 100 07/09/19 17:00 82 26 81/38 (52) 96 07/09/19 16:00 Nasal Cannula 3.0 07/09/19 16:00 85 07/09/19 16:00 99.1 85 28 90/44 (59) 97 07/09/19 15:39 82 21 100 Nasal Cannula 2.0 28 85 26 96 07/09/19 15:00 84 28 94/44 (61) 97 07/09/19 14:53 107/68 07/09/19 14:00 83 27 91/59 (70) 97 07/09/19 13:00 85 32 87/44 (58) 99 07/09/19 12:00 Nasal Cannula 3.0 07/09/19 12:00 83 07/09/19 12:00 99.6 86 29 120/42 (68) 98 07/09/19 11:04 84 24 99 Nasal Cannula 2.0 28 83 24 97 07/09/19 11:00 81 26 87/41 (56) 94 07/09/19 10:00 84 27 95/52 (66) 94 Intake and Output 07/10/19 07/11/19 19:00 07:00 Intake Total 985.000 ml 55 ml Output Total 900 ml 900 ml Balance 85.000 ml -845 ml Free Water 10 ml 30 ml IV Total 930.000 ml Tube Feeding 25 ml 25 ml Other 20 ml Output Urine Total 0 ml 0 ml Stool Total 900 ml 900 ml Labs Test 07/09/19 03:35 07/09/19 06:20 07/09/19 17:00 07/10/19 04:00 White Blood Count 33.1 K/UL (4.8-10.8) 30.1 K/UL (4.8-10.8) Red Blood Count 2.59 M/UL (4.70-6.10) 2.30 M/UL (4.70-6.10) Hemoglobin 8.1 G/DL (14.2-18.0) 7.5 G/DL (14.2-18.0) Hematocrit 25.6 % (42.0-52.0) 23.0 % (42.0-52.0) Mean Corpuscular Volume 99 FL (80-99) 100 FL (80-99) Mean Corpuscular Hemoglobin 31.4 PG (27.0-31.0) 32.4 PG (27.0-31.0) Mean Corpuscular Hemoglobin Concent 31.7 G/DL (32.0-36.0) 32.5 G/DL (32.0-36.0) Red Cell Distribution Width 25.7 % (11.6-14.8) 22.8 % (11.6-14.8) Platelet Count 141 K/UL (150-450) 128 K/UL (150-450) Mean Platelet Volume 12.5 FL (6.5-10.1) 10.7 FL (6.5-10.1) Neutrophils (%) (Auto) % (45.0-75.0) % (45.0-75.0) Lymphocytes (%) (Auto) % (20.0-45.0) % (20.0-45.0) Monocytes (%) (Auto) % (1.0-10.0) % (1.0-10.0) Eosinophils (%) (Auto) % (0.0-3.0) % (0.0-3.0) Basophils (%) (Auto) % (0.0-2.0) % (0.0-2.0) Differential Total Cells Counted 100 100 Neutrophils % (Manual) 75 % (45-75) 72 % (45-75) Lymphocytes % (Manual) 5 % (20-45) 7 % (20-45) Monocytes % (Manual) 2 % (1-10) 6 % (1-10) Eosinophils % (Manual) 0 % (0-3) 0 % (0-3) Basophils % (Manual) 2 % (0-2) 0 % (0-2) Metamyelocytes % 1 % (0-0) 2 % (0-0) Myelocytes % 1 % (0-0) 2 % (0-0) Band Neutrophils 14 % (0-8) 11 % (0-8) Platelet Estimate Decreased Decreased Platelet Morphology Normal Normal Polychromasia 1+ Hypochromasia 2+ Anisocytosis 2+ 2+ Macrocytosis 1+ 1+ Sodium Level 145 MMOL/L (136-145) 149 MMOL/L (136-145) Potassium Level 2.7 MMOL/L (3.5-5.1) 2.8 MMOL/L (3.5-5.1) Chloride Level 108 MMOL/L (98-107) 110 MMOL/L (98-107) Carbon Dioxide Level 23 MMOL/L (21-32) 21 MMOL/L (21-32) Anion Gap 15 mmol/L (5-15) 17 mmol/L (5-15) Blood Urea Nitrogen 43 mg/dL (7-18) 57 mg/dL (7-18) Creatinine 5.8 MG/DL (0.55-1.30) 7.5 MG/DL (0.55-1.30) Estimat Glomerular Filtration Rate 10.9 mL/min (>60) 8.1 mL/min (>60) Glucose Level 118 MG/DL (74-106) 122 MG/DL (74-106) Calcium Level 7.7 MG/DL (8.5-10.1) 7.9 MG/DL (8.5-10.1) Phosphorus Level 4.2 MG/DL (2.5-4.9) 5.5 MG/DL (2.5-4.9) Magnesium Level 2.3 MG/DL (1.8-2.4) 2.4 MG/DL (1.8-2.4) Total Bilirubin 35.5 MG/DL (0.2-1.0) 35.9 MG/DL (0.2-1.0) Direct Bilirubin 28.3 MG/DL (0.0-0.3) 28.6 MG/DL (0.0-0.3) Aspartate Amino Transf (AST/SGOT) 177 U/L (15-37) 202 U/L (15-37) Alanine Aminotransferase (ALT/SGPT) 20 U/L (12-78) 20 U/L (12-78) Alkaline Phosphatase 237 U/L (46-116) 263 U/L (46-116) Total Protein 5.0 G/DL (6.4-8.2) 4.9 G/DL (6.4-8.2) Albumin 1.8 G/DL (3.4-5.0) 1.6 G/DL (3.4-5.0) Globulin 3.2 g/dL 3.3 g/dL Albumin/Globulin Ratio 0.6 (1.0-2.7) 0.5 (1.0-2.7) Random Vancomycin Level 21.5 ug/mL Lipase 369 U/L (73-393) Test 07/11/19 04:00 Sodium Level 151 MMOL/L (136-145) Potassium Level 3.1 MMOL/L (3.5-5.1) Chloride Level 113 MMOL/L (98-107) Carbon Dioxide Level 18 MMOL/L (21-32) Anion Gap 20 mmol/L (5-15) Blood Urea Nitrogen 70 mg/dL (7-18) Creatinine 9.1 MG/DL (0.55-1.30) Estimat Glomerular Filtration Rate 6.5 mL/min (>60) Glucose Level 116 MG/DL (74-106) Uric Acid 14.2 MG/DL (2.6-7.2) Calcium Level 7.7 MG/DL (8.5-10.1) Phosphorus Level 7.0 MG/DL (2.5-4.9) Total Bilirubin 35.9 MG/DL (0.2-1.0) Direct Bilirubin 28.4 MG/DL (0.0-0.3) Aspartate Amino Transf (AST/SGOT) 183 U/L (15-37) Alanine Aminotransferase (ALT/SGPT) 9 U/L (12-78) Alkaline Phosphatase 256 U/L (46-116) Ammonia 48 umol/L (11-32) Total Protein 4.9 G/DL (6.4-8.2) Albumin 1.6 G/DL (3.4-5.0) Globulin 3.3 g/dL Albumin/Globulin Ratio 0.5 (1.0-2.7) Height (Feet): 5 Height (Inches): 9.00 Weight (Pounds): 229 Objective Physical Exam: Vitals: reviewed General Appearance: NAD HEENT: normocephalic, atraumatic ++ icterus jaundice, ng+ Neck: non-tender, normal alignment Respiratory/Chest: normal breath sounds bilaterally++ nc, BIPAP+ Cardiovascular/Chest: normal peripheral pulses, normal rate Abdomen: normal bowel sounds, soft,+ peg ++ ascites Extremities: normal range of motion Marty Kebede MD Jul 11, 2019 09:43
--- NOTE | 2019-07-11 09:50 | Infectious Diseases Prog Note ---
Assessment/Plan Assessment/Plan IMPRESSION: 1. Sepsis. 2. leukocytosis 3. Tachycardia. 4. Leukocytosis. 5. colitis, 6.Alcoholic pancreatitis, 7.Cirrhosis of liver, 8. Acute renal failure likely hepatorenal syndrome, - ESRD 9.Anemia, 10. thrombocytopenia, 11.hypocalcemia, 12.hypomagnesemia, corrected 13 hypokalemia, 14, Alcohol withdrawal. 15.Metabolic encephalopathy 16. Hypophosphatemia 17. Hypernatremia 18. Hypoxic respiratory failure RECOMMENDATION: Discontinue Vancomycin & Meropenem Stool for C.difficile Poor prognosis Subjective ROS Limited/Unobtainable: Yes Gastrointestinal/Abdominal: Reports: diarrhea Neurologic: Reports: confusion, other - on restraint Allergies: Coded Allergies: No Known Allergies (Unverified , 06/20/19) Objective Vital Signs Last 24 Hour Vital Signs Date Time Temp Pulse Resp B/P (MAP) Pulse Ox O2 Delivery O2 Flow Rate FiO2 07/11/19 08:00 88 07/11/19 08:00 98.5 86 22 93/35 (54) 94 07/11/19 07:53 Nasal Cannula 2.0 07/11/19 07:22 87 25 88/39 (55) 98 07/11/19 07:05 85 29 92/40 (57) 100 07/11/19 06:57 100 Nasal Cannula 3.0 32 07/11/19 06:57 85 26 100 Nasal Cannula 3.0 32 84 24 100 07/11/19 06:00 84 24 95/43 (60) 100 07/11/19 05:00 83 25 90/40 (57) 100 07/11/19 05:00 84 25 100 Facial 28 07/11/19 04:03 81 27 100 Bi-Pap 28 07/11/19 04:00 Bi-pap 07/11/19 04:00 28 07/11/19 04:00 83 07/11/19 04:00 99.2 82 25 90/40 (57) 100 07/11/19 03:53 81 23 100 07/11/19 03:51 81 23 100 Facial 28 07/11/19 03:00 85 23 102/41 (61) 100 07/11/19 02:00 85 25 108/37 (60) 100 07/11/19 01:07 89 25 103/45 (64) 100 07/11/19 01:03 89 31 88/61 (70) 100 07/11/19 01:00 88 25 90/65 (73) 100 07/11/19 00:38 89 30 99 Facial 28 07/11/19 00:00 28 07/11/19 00:00 90 07/11/19 00:00 Bi-pap 07/11/19 00:00 99.0 91 23 144/127 (133) 100 07/10/19 23:04 82 28 98 Facial 28 07/10/19 23:03 82 22 98 Nasal Cannula 2.0 28 07/10/19 23:00 84 28 122/80 (94) 85 07/10/19 22:53 88 33 97 07/10/19 22:00 87 28 99/43 (61) 100 07/10/19 21:00 89 32 95/45 (62) 99 07/10/19 20:00 Nasal Cannula 2.0 07/10/19 20:00 99.1 88 32 102/47 (65) 100 07/10/19 20:00 2.0 07/10/19 20:00 85 07/10/19 19:37 86 22 100 Nasal Cannula 2.0 28 07/10/19 19:36 87 33 99/41 (60) 98 07/10/19 19:27 84 23 98 07/10/19 19:26 98 Nasal Cannula 2.0 28 07/10/19 19:20 102/47 07/10/19 19:09 81 22 89/40 (56) 100 07/10/19 19:00 84 30 87/48 (61) 95 07/10/19 18:00 85 27 96/45 (62) 99 07/10/19 17:00 85 29 100/42 (61) 98 07/10/19 17:00 87 28 93/46 (62) 97 07/10/19 16:00 98.7 85 29 100/42 (61) 98 07/10/19 16:00 Nasal Cannula 2.0 07/10/19 16:00 85 07/10/19 15:00 85 30 89/45 (60) 97 07/10/19 14:53 89/45 07/10/19 14:37 87 28 99 Nasal Cannula 2.0 28 85 27 96 07/10/19 14:00 84 28 88/44 (59) 97 07/10/19 13:00 85 31 90/45 (60) 98 07/10/19 12:00 99.4 86 29 96/49 (65) 96 07/10/19 12:00 Nasal Cannula 2.0 07/10/19 12:00 87 07/10/19 11:00 85 30 93/45 (61) 99 07/10/19 10:53 88 29 100 Nasal Cannula 2.0 28 88 28 97 07/10/19 10:00 86 27 91/42 (58) 96 Height (Feet): 5 Height (Inches): 9.00 Weight (Pounds): 229 HEENT: mucous membranes moist, other - icterus Respiratory/Chest: lungs clear Cardiovascular: normal rate, other - HD line & PICC line Abdomen: distended, other - GT & rectal tube Extremities: other - edema Neurologic/Psychiatric: disoriented Laboratory Tests Test 07/11/19 04:00 Sodium Level 151 MMOL/L (136-145) H Potassium Level 3.1 MMOL/L (3.5-5.1) L Chloride Level 113 MMOL/L (98-107) H Carbon Dioxide Level 18 MMOL/L (21-32) L Anion Gap 20 mmol/L (5-15) H Blood Urea Nitrogen 70 mg/dL (7-18) H Creatinine 9.1 MG/DL (0.55-1.30) H Estimat Glomerular Filtration Rate 6.5 mL/min (>60) Glucose Level 116 MG/DL (74-106) H Uric Acid 14.2 MG/DL (2.6-7.2) H Calcium Level 7.7 MG/DL (8.5-10.1) L Phosphorus Level 7.0 MG/DL (2.5-4.9) H Total Bilirubin 35.9 MG/DL (0.2-1.0) H Direct Bilirubin 28.4 MG/DL (0.0-0.3) H Aspartate Amino Transf (AST/SGOT) 183 U/L (15-37) H Alanine Aminotransferase (ALT/SGPT) 9 U/L (12-78) L Alkaline Phosphatase 256 U/L (46-116) H Ammonia 48 umol/L (11-32) H Total Protein 4.9 G/DL (6.4-8.2) L Albumin 1.6 G/DL (3.4-5.0) L Globulin 3.3 g/dL Albumin/Globulin Ratio 0.5 (1.0-2.7) L Current Medications Medications (Trade) Dose Ordered Sig/Gabriela Route PRN Reason Start Time Stop Time Status Last Admin Dose Admin Albuterol/ Ipratropium (Albuterol/ Ipratropium) 3 ml Q4HRT HHN 07/09/19 15:30 07/14/19 15:29 07/11/19 06:56 Chlorhexidine Gluconate (Emilie-Hex 2%) 1 applic DAILY@2000 TOPIC 06/26/19 20:00 07/26/19 19:59 07/10/19 20:37 Dopamine HCl/ Dextrose 250 ml @ 0 mls/hr Q24H IV 06/30/19 14:53 07/30/19 14:52 07/05/19 12:42 Epoetin Michael (Epoetin Michael(ESRD on dialysis)) 2,000 unit TUE-TUE-TUE SUBQ 07/02/19 21:00 08/01/19 20:59 07/09/19 21:14 Epoetin Michael (Epoetin Michael(ESRD on dialysis)) 3,000 unit TUE- SUBQ 07/02/19 21:00 08/01/19 20:59 07/09/19 21:22 Lactulose (Cephulac) 30 gm FOUR TIMES A DAY NG 07/01/19 09:00 07/20/19 12:59 07/11/19 09:34 Lansoprazole (Prevacid) 30 mg BID NG 07/11/19 09:00 08/10/19 08:59 07/11/19 09:34 Meropenem 500 mg/ Sodium Chloride 55 ml @ 110 mls/hr Q24H IVPB 07/10/19 12:00 07/15/19 11:59 07/10/19 12:00 Multivitamins (Multivitamins) 1 tab DAILY ORAL 07/10/19 09:00 08/09/19 08:59 07/11/19 09:34 Norepinephrine Bitartrate 4 mg/ Dextrose 250 ml @ 0 mls/hr Q24H IV 07/06/19 19:20 08/05/19 19:19 Potassium Chloride 100 ml @ 50 mls/hr ONCE ONCE IVPB 07/11/19 08:00 07/11/19 09:59 07/11/19 08:31 Potassium Chloride 100 ml @ 50 mls/hr ONCE ONCE IVPB 07/11/19 10:00 07/11/19 11:59 Thiamine HCl (Vitamin B1) 100 mg DAILY ORAL 07/10/19 09:00 08/09/19 08:59 07/11/19 09:34 Vancomycin HCl (Vanco rx to dose) 1 ea DAILY PRN MISC Per rx protocol 07/05/19 10:45 08/04/19 10:44 Ilia Chakraborty MD Jul 11, 2019 09:50
--- NOTE | 2019-07-11 10:25 | Nephrology Progress Note ---
Assessment/Plan Problem List: (1) End-stage liver disease (2) Hepatorenal syndrome (3) Pancreatitis, alcoholic, acute (4) Acute alcoholic intoxication (5) Anemia (6) Respiratory failure (7) Hypernatremia Assessment Acute alcoholic intoxication End-stage liver disease Hepatorenal syndrome Pancreatitis, alcoholic, acute Anemia Plan Hypotensive- not tolerated dialysis last time due to low BP K supplement trial paracenthesis I CONSIDER TREATMENT OF THIS PATIENT TO BE FUTILE correct low K per orders on 06/28/19 met with Brother- Liliana zonia Reyes [employer] T[employer] Brother will discuss with family regarding DNR and comfort care K and Mag and phos supplement as needed has parker NO OUTPUT has RT (rectal tube) on lactulose discussed with RN Correct lytes IV protonix lactulose Folate and Thiamin per GI transfuse per consultants Subjective ROS Limited/Unobtainable: No Constitutional: Reports: malaise, weakness Objective Objective Last 24 Hour Vital Signs Date Time Temp Pulse Resp B/P (MAP) Pulse Ox O2 Delivery O2 Flow Rate FiO2 07/11/19 08:00 88 07/11/19 08:00 98.5 86 22 93/35 (54) 94 07/11/19 07:53 Nasal Cannula 2.0 07/11/19 07:22 87 25 88/39 (55) 98 07/11/19 07:05 85 29 92/40 (57) 100 07/11/19 06:57 100 Nasal Cannula 3.0 32 07/11/19 06:57 85 26 100 Nasal Cannula 3.0 32 84 24 100 07/11/19 06:00 84 24 95/43 (60) 100 07/11/19 05:00 83 25 90/40 (57) 100 07/11/19 05:00 84 25 100 Facial 28 07/11/19 04:03 81 27 100 Bi-Pap 28 07/11/19 04:00 Bi-pap 07/11/19 04:00 28 07/11/19 04:00 83 07/11/19 04:00 99.2 82 25 90/40 (57) 100 07/11/19 03:53 81 23 100 07/11/19 03:51 81 23 100 Facial 28 07/11/19 03:00 85 23 102/41 (61) 100 07/11/19 02:00 85 25 108/37 (60) 100 9/18/19 01:07 89 25 103/45 (64) 100 07/11/19 01:03 89 31 88/61 (70) 100 07/11/19 01:00 88 25 90/65 (73) 100 07/11/19 00:38 89 30 99 Facial 28 07/11/19 00:00 28 07/11/19 00:00 90 07/11/19 00:00 Bi-pap 07/11/19 00:00 99.0 91 23 144/127 (133) 100 07/10/19 23:04 82 28 98 Facial 28 07/10/19 23:03 82 22 98 Nasal Cannula 2.0 28 07/10/19 23:00 84 28 122/80 (94) 85 07/10/19 22:53 88 33 97 07/10/19 22:00 87 28 99/43 (61) 100 07/10/19 21:00 89 32 95/45 (62) 99 07/10/19 20:00 Nasal Cannula 2.0 07/10/19 20:00 99.1 88 32 102/47 (65) 100 07/10/19 20:00 2.0 07/10/19 20:00 85 07/10/19 19:37 86 22 100 Nasal Cannula 2.0 28 07/10/19 19:36 87 33 99/41 (60) 98 07/10/19 19:27 84 23 98 07/10/19 19:26 98 Nasal Cannula 2.0 28 07/10/19 19:20 102/47 07/10/19 19:09 81 22 89/40 (56) 100 07/10/19 19:00 84 30 87/48 (61) 95 07/10/19 18:00 85 27 96/45 (62) 99 07/10/19 17:00 85 29 100/42 (61) 98 07/10/19 17:00 87 28 93/46 (62) 97 07/10/19 16:00 98.7 85 29 100/42 (61) 98 07/10/19 16:00 Nasal Cannula 2.0 07/10/19 16:00 85 07/10/19 15:00 85 30 89/45 (60) 97 07/10/19 14:53 89/45 07/10/19 14:37 87 28 99 Nasal Cannula 2.0 28 85 27 96 07/10/19 14:00 84 28 88/44 (59) 97 07/10/19 13:00 85 31 90/45 (60) 98 07/10/19 12:00 99.4 86 29 96/49 (65) 96 07/10/19 12:00 Nasal Cannula 2.0 07/10/19 12:00 87 07/10/19 11:00 85 30 93/45 (61) 99 07/10/19 10:53 88 29 100 Nasal Cannula 2.0 28 88 28 97 Intake and Output 07/10/19 07/11/19 19:00 07:00 Intake Total 985.000 ml 55 ml Output Total 900 ml 900 ml Balance 85.000 ml -845 ml Free Water 10 ml 30 ml IV Total 930.000 ml Tube Feeding 25 ml 25 ml Other 20 ml Output Urine Total 0 ml 0 ml Stool Total 900 ml 900 ml Laboratory Tests 07/11/19 04:00: Sodium Level 151H, Potassium Level 3.1L, Chloride Level 113H, Carbon Dioxide Level 18L, Anion Gap 20H, Blood Urea Nitrogen 70H, Creatinine 9.1H, Estimat Glomerular Filtration Rate 6.5, Glucose Level 116H, Uric Acid 14.2H, Calcium Level 7.7L, Phosphorus Level 7.0H, Total Bilirubin 35.9H, Direct Bilirubin 28.4H , Aspartate Amino Transf (AST/SGOT) 183H, Alanine Aminotransferase (ALT/SGPT) 9L , Alkaline Phosphatase 256H, Ammonia 48H, Total Protein 4.9L, Albumin 1.6L, Globulin 3.3, Albumin/Globulin Ratio 0.5L Height (Feet): 5 Height (Inches): 9.00 Weight (Pounds): 229 General Appearance: lethargic, confused, mild distress Cardiovascular: tachycardia Respiratory/Chest: decreased breath sounds Abdomen: distended, other - ascitis Extremities: severe edema Arthur Lay MD Jul 11, 2019 10:25
--- NOTE | 2019-07-11 10:40 | Diagnostic Imaging Report ---
Indication: Abdominal pain and distention Technique: XRAY Abdomen 1v Comparison: 07/08/2019 Findings/Impression: Hernandez catheter and nasogastric tube in place. There is persistent gaseous distention of large and small bowel loops although slightly decreased compared to exam. No evidence to suggest free intraperitoneal air however sensitivity is limited without inclusion of a standing/erect view. No acute osseous abnormality identified. Airspace disease is visualized in the lower lungs.
--- NOTE | 2019-07-11 13:05 | General Progress Note ---
Assessment/Plan Problem List: (1) Anemia ICD Codes: D64.9 - Anemia, unspecified SNOMED: 870508246 Qualifiers: Qualified Codes: D64.9 - Anemia, unspecified (2) Acute alcoholic intoxication ICD Codes: F10.929 - Alcohol use, unspecified with intoxication, unspecified SNOMED: 63602014, 7005387 Qualifiers: Qualified Codes: F10.920 - Alcohol use, unspecified with intoxication, uncomplicated (3) End-stage liver disease ICD Codes: K72.90 - Hepatic failure, unspecified without coma SNOMED: 688320642 (4) Hepatorenal syndrome ICD Codes: K76.7 - Hepatorenal syndrome SNOMED: 68181651, 9231102 (5) Pancreatitis, alcoholic, acute ICD Codes: K85.20 - Alcohol induced acute pancreatitis without necrosis or infection SNOMED: 185051763, 0816125 Qualifiers: Qualified Codes: K85.20 - Alcohol induced acute pancreatitis without necrosis or infection (6) Respiratory failure ICD Codes: J96.90 - Respiratory failure, unspecified, unspecified whether with hypoxia or hypercapnia SNOMED: 471350623 Status: stable, progressing, deteriorating Assessment/Plan: jaundiced distended abdomen w ascites worsening hepatorenal syndrome worsening renal failure persistent leukocytosis persistent anemia very poor prognosis confused hepatic encephalopathy elevated lft s/p paracentesis hepatorenal syndrome getting worse Subjective ROS Limited/Unobtainable: Yes Allergies: Coded Allergies: No Known Allergies (Unverified , 06/20/19) Objective Last 24 Hour Vital Signs Date Time Temp Pulse Resp B/P (MAP) Pulse Ox O2 Delivery O2 Flow Rate FiO2 07/11/19 12:00 82 07/11/19 12:00 98.0 84 19 93/34 (53) 97 07/11/19 12:00 Nasal Cannula 2.0 07/11/19 12:00 2.0 07/11/19 11:00 84 24 97/38 (57) 98 07/11/19 10:00 85 25 89/45 (60) 98 07/11/19 09:00 85 25 90/43 (59) 97 07/11/19 08:00 88 07/11/19 08:00 98.5 86 22 93/35 (54) 94 07/11/19 08:00 2.0 07/11/19 07:53 Nasal Cannula 2.0 07/11/19 07:22 87 25 88/39 (55) 98 07/11/19 07:05 85 29 92/40 (57) 100 07/11/19 06:57 100 Nasal Cannula 3.0 32 07/11/19 06:57 85 26 100 Nasal Cannula 3.0 32 84 24 100 07/11/19 06:00 84 24 95/43 (60) 100 07/11/19 05:00 83 25 90/40 (57) 100 07/11/19 05:00 84 25 100 Facial 28 07/11/19 04:03 81 27 100 Bi-Pap 28 07/11/19 04:00 Bi-pap 07/11/19 04:00 28 07/11/19 04:00 83 07/11/19 04:00 99.2 82 25 90/40 (57) 100 07/11/19 03:53 81 23 100 07/11/19 03:51 81 23 100 Facial 28 07/11/19 03:00 85 23 102/41 (61) 100 07/11/19 02:00 85 25 108/37 (60) 100 07/11/19 01:07 89 25 103/45 (64) 100 07/11/19 01:03 89 31 88/61 (70) 100 07/11/19 01:00 88 25 90/65 (73) 100 07/11/19 00:38 89 30 99 Facial 28 07/11/19 00:00 28 07/11/19 00:00 90 07/11/19 00:00 Bi-pap 07/11/19 00:00 99.0 91 23 144/127 (133) 100 07/10/19 23:04 82 28 98 Facial 28 07/10/19 23:03 82 22 98 Nasal Cannula 2.0 28 07/10/19 23:00 84 28 122/80 (94) 85 07/10/19 22:53 88 33 97 07/10/19 22:00 87 28 99/43 (61) 100 07/10/19 21:00 89 32 95/45 (62) 99 07/10/19 20:00 Nasal Cannula 2.0 07/10/19 20:00 99.1 88 32 102/47 (65) 100 07/10/19 20:00 2.0 07/10/19 20:00 85 07/10/19 19:37 86 22 100 Nasal Cannula 2.0 28 07/10/19 19:36 87 33 99/41 (60) 98 07/10/19 19:27 84 23 98 07/10/19 19:26 98 Nasal Cannula 2.0 28 07/10/19 19:20 102/47 07/10/19 19:09 81 22 89/40 (56) 100 07/10/19 19:00 84 30 87/48 (61) 95 07/10/19 18:00 85 27 96/45 (62) 99 07/10/19 17:00 85 29 100/42 (61) 98 07/10/19 17:00 87 28 93/46 (62) 97 07/10/19 16:00 98.7 85 29 100/42 (61) 98 07/10/19 16:00 Nasal Cannula 2.0 07/10/19 16:00 85 07/10/19 15:00 85 30 89/45 (60) 97 07/10/19 14:53 89/45 07/10/19 14:37 87 28 99 Nasal Cannula 2.0 28 85 27 96 07/10/19 14:00 84 28 88/44 (59) 97 Intake and Output 07/10/19 07/11/19 19:00 07:00 Intake Total 985.000 ml 55 ml Output Total 900 ml 900 ml Balance 85.000 ml -845 ml Free Water 10 ml 30 ml IV Total 930.000 ml Tube Feeding 25 ml 25 ml Other 20 ml Output Urine Total 0 ml 0 ml Stool Total 900 ml 900 ml Laboratory Tests 07/11/19 04:00: Sodium Level 151H, Potassium Level 3.1L, Chloride Level 113H, Carbon Dioxide Level 18L, Anion Gap 20H, Blood Urea Nitrogen 70H, Creatinine 9.1H, Estimat Glomerular Filtration Rate 6.5, Glucose Level 116H, Uric Acid 14.2H, Calcium Level 7.7L, Phosphorus Level 7.0H, Total Bilirubin 35.9H, Direct Bilirubin 28.4H , Aspartate Amino Transf (AST/SGOT) 183H, Alanine Aminotransferase (ALT/SGPT) 9L , Alkaline Phosphatase 256H, Ammonia 48H, Total Protein 4.9L, Albumin 1.6L, Globulin 3.3, Albumin/Globulin Ratio 0.5L Height (Feet): 5 Height (Inches): 9.00 Weight (Pounds): 229 General Appearance: confused Deejay Saldaña MD Jul 11, 2019 13:05
--- NOTE | 2019-07-11 14:14 | Surgery Progress Note ---
Surgery Progress Note Subjective Additional Comments no acute events exam stable. Objective Last 24 Hour Vital Signs Date Time Temp Pulse Resp B/P (MAP) Pulse Ox O2 Delivery O2 Flow Rate FiO2 07/11/19 12:00 82 07/11/19 12:00 98.0 84 19 93/34 (53) 97 07/11/19 12:00 Nasal Cannula 2.0 07/11/19 12:00 2.0 07/11/19 11:00 84 24 97/38 (57) 98 07/11/19 10:00 85 25 89/45 (60) 98 07/11/19 09:00 85 25 90/43 (59) 97 07/11/19 08:00 88 07/11/19 08:00 98.5 86 22 93/35 (54) 94 07/11/19 08:00 2.0 07/11/19 07:53 Nasal Cannula 2.0 07/11/19 07:22 87 25 88/39 (55) 98 07/11/19 07:05 85 29 92/40 (57) 100 07/11/19 06:57 100 Nasal Cannula 3.0 32 07/11/19 06:57 85 26 100 Nasal Cannula 3.0 32 84 24 100 07/11/19 06:00 84 24 95/43 (60) 100 07/11/19 05:00 83 25 90/40 (57) 100 07/11/19 05:00 84 25 100 Facial 28 07/11/19 04:03 81 27 100 Bi-Pap 28 07/11/19 04:00 Bi-pap 07/11/19 04:00 28 07/11/19 04:00 83 07/11/19 04:00 99.2 82 25 90/40 (57) 100 07/11/19 03:53 81 23 100 07/11/19 03:51 81 23 100 Facial 28 07/11/19 03:00 85 23 102/41 (61) 100 07/11/19 02:00 85 25 108/37 (60) 100 07/11/19 01:07 89 25 103/45 (64) 100 07/11/19 01:03 89 31 88/61 (70) 100 07/11/19 01:00 88 25 90/65 (73) 100 07/11/19 00:38 89 30 99 Facial 28 07/11/19 00:00 28 07/11/19 00:00 90 07/11/19 00:00 Bi-pap 07/11/19 00:00 99.0 91 23 144/127 (133) 100 07/10/19 23:04 82 28 98 Facial 28 07/10/19 23:03 82 22 98 Nasal Cannula 2.0 28 07/10/19 23:00 84 28 122/80 (94) 85 07/10/19 22:53 88 33 97 07/10/19 22:00 87 28 99/43 (61) 100 07/10/19 21:00 89 32 95/45 (62) 99 07/10/19 20:00 Nasal Cannula 2.0 07/10/19 20:00 99.1 88 32 102/47 (65) 100 07/10/19 20:00 2.0 07/10/19 20:00 85 07/10/19 19:37 86 22 100 Nasal Cannula 2.0 28 07/10/19 19:36 87 33 99/41 (60) 98 07/10/19 19:27 84 23 98 07/10/19 19:26 98 Nasal Cannula 2.0 28 07/10/19 19:20 102/47 07/10/19 19:09 81 22 89/40 (56) 100 07/10/19 19:00 84 30 87/48 (61) 95 07/10/19 18:00 85 27 96/45 (62) 99 07/10/19 17:00 85 29 100/42 (61) 98 07/10/19 17:00 87 28 93/46 (62) 97 07/10/19 16:00 98.7 85 29 100/42 (61) 98 07/10/19 16:00 Nasal Cannula 2.0 07/10/19 16:00 85 07/10/19 15:00 85 30 89/45 (60) 97 07/10/19 14:53 89/45 07/10/19 14:37 87 28 99 Nasal Cannula 2.0 28 85 27 96 I&O Intake and Output 07/10/19 07/11/19 19:00 07:00 Intake Total 985.000 ml 55 ml Output Total 900 ml 900 ml Balance 85.000 ml -845 ml Free Water 10 ml 30 ml IV Total 930.000 ml Tube Feeding 25 ml 25 ml Other 20 ml Output Urine Total 0 ml 0 ml Stool Total 900 ml 900 ml Dressing: dry Wound: clean Drains: other Cardiovascular: RSR Respiratory: clear Abdomen: soft, non-tender, present bowel sounds Extremities: no cyanosis, other Laboratory Tests Test 07/11/19 04:00 Sodium Level 151 MMOL/L (136-145) H Potassium Level 3.1 MMOL/L (3.5-5.1) L Chloride Level 113 MMOL/L (98-107) H Carbon Dioxide Level 18 MMOL/L (21-32) L Anion Gap 20 mmol/L (5-15) H Blood Urea Nitrogen 70 mg/dL (7-18) H Creatinine 9.1 MG/DL (0.55-1.30) H Estimat Glomerular Filtration Rate 6.5 mL/min (>60) Glucose Level 116 MG/DL (74-106) H Uric Acid 14.2 MG/DL (2.6-7.2) H Calcium Level 7.7 MG/DL (8.5-10.1) L Phosphorus Level 7.0 MG/DL (2.5-4.9) H Total Bilirubin 35.9 MG/DL (0.2-1.0) H Direct Bilirubin 28.4 MG/DL (0.0-0.3) H Aspartate Amino Transf (AST/SGOT) 183 U/L (15-37) H Alanine Aminotransferase (ALT/SGPT) 9 U/L (12-78) L Alkaline Phosphatase 256 U/L (46-116) H Ammonia 48 umol/L (11-32) H Total Protein 4.9 G/DL (6.4-8.2) L Albumin 1.6 G/DL (3.4-5.0) L Globulin 3.3 g/dL Albumin/Globulin Ratio 0.5 (1.0-2.7) L Plan Problems: (1) Pancreatitis, alcoholic, acute Assessment & Plan: Acute alcoholic pancreatitis. Levels fluctuating. Plan to check levels tomorrow Treat medically and conservatively for now If worsening leukocytosis may consider CT scan (2) Hepatorenal syndrome Assessment & Plan: Chronic liver disease acute, with acute pancreatitis and potential about her renal syndrome as noted. Currently stable treat conservatively no acute surgical intervention recommended Unfortunately invasive techniques not available at this facility Continue with ICU care and management (3) Respiratory failure (4) skin intergrety Assessment & Plan: Pt noted to have dry eschar bridge of nose. Periwound without erythema or fluctuance. Shearing noted to R and L clefts of buttocks. No exudate noted. Both heels firm and blanchable. Tx.Plan: Swab bridge of nose with Benzoin Tincture Twice Daily. Apply Moisture Barrier Paste to buttocks with each perineal care. Apply Cavilon Skin Barrier to both heels. Cover each heel with Optifoam drsg. Change every 7 days and prn. APM/MATTHEW mattress overlay. Reposition at least every 2hours or as tolerated. Off-load heels with pillow. (5) End-stage liver disease Assessment & Plan: DAILY ESTIMATED NEEDS: Needs based on Liver dz, 79kg adj 25-30 kcals/kg [id number] total kcals 1-1.5 (w/ HD 1.2-1.8) g protein/kg 79-119g (w/ HD 95-142g) g total protein Fluid per MD NUTRITION DIAGNOSIS: * Decreased sodium and fat needs r/t liver disease, cirrhosis, acute pancreatitis as evidenced by Abd US, elev T bili (33.5), pt is jaundiced, fatty liver, elev ammonia and AST, elev lipse (643), h/o etoh abuse, adm w/ elev serum alcohol. * Swallowing difficulty R/T confusion, dysphagia as evidenced by NGT feeding initiated, seen by SELLING UNDERWRITER w/ rec to continue nonoral feeds at this time. CURRENT TF: NEPRO @45 + PS x1 PO DIET RECOMMENDATIONS: WHEN SAFE FOR ORAL FEEDING -> LOW NA/ LOW FAT (texture per SELLING UNDERWRITER) ENTERAL NUTRITION RECOMMENDATIONS: MAINTAIN NEPRO W/ DIALYSIS TXT: Nepro @45ml/hr x24 hrs + PS x1 to provide 1080ml, 1944 kcal, 87g pro, 785ml free H20 * Maintain Nepro @45ml/hr as tolerated. * Add Prosource x1 pack daily to better meet est pro needs on HD * HOB over 30 degrees/ water flush per MD ADDITIONAL RECOMMENDATIONS: 1) Calibrated bedscale wt 2) Monitor for ability to start oral feeding 3) Check lytes daily 4) Rec to re-add thiamine + Folate daily, add MVI x 1 5) REC TF CHANGE TO NEPRO W/ DIALYSIS TXT 6) Monitor BGs closely, need for hypoglycemics (6) Acute alcoholic intoxication Benyamini,Kennedy Jul 11, 2019 14:14
[2019-07-11] MEDS: DOPamine 400mg/250ml 250 ML IV SCH (14:53)
--- NOTE | 2019-07-11 16:21 | Diagnostic Imaging Report ---
Indications: Ascites Technique: Ultrasound used to localize optimal puncture site. Sterile prepping and draping right lower quadrant. Local anesthesia with 1% lidocaine. Under real-time ultrasound guidance, puncture peritoneal space using paracentesis needle. Stylet removed. Catheter placed to vacuum bottle suction. Total 800 mL of fluid aspirated. Patient tolerated procedure well, without immediate complication. Findings: Followup sonography demonstrates complete resolution of peritoneal fluid. Impression: Successful ultrasound-guided paracentesis, yielding 800 mL of fluid
--- NOTE | 2019-07-11 17:29 | Pulmonolgy Critical Care Note ---
Critical Care - Asmt/Plan Assessment/Plan: Pulmonary CCM Progress Note HPI This is a 39-year-old male who is an alcoholic with significant fatty liver on abdominal CT and alcoholic hepatitis, liver failure c/b multiorgan failure. He has been drinking heavily for 3 months straight, having stopped drinking [employer]. Noted to have Hepatic Encephalopathy and Hepatorenal Syndrome. No bleeding. Noted to have significant hypokalemia and acidosis, now on HD, s/ p Paracentesis today On NC, BiPAP PRN, NGT, on Lactulose On Hemodialysis for worsening acidosis, uremia More interactive today BP stable, Midodrine, PRN levophed to maintain BP Allergies: No Known Allergies Past Medical History: Alcohol abuse All Other Systems: negative except mentioned in HPI Physical Exam Vital Signs Noted General Appearance: Jaundiced, awake Head: normocephalic, atraumatic, HD catheter Eyes: bilateral eye PERRL, bilateral eye EOMI, bilateral eye scleral icterus ENT: moist mm Neck: no masses, no LN Respiratory: chest non-tender, lungs clear, normal breath sounds Cardiovascular: regular rate, rhythm, Normal HS1, HS2, no murmur, tachycardia Gastrointestinal: Obese, hepatomegaly, some tenderness RUQ, normal bowel sounds , no mass, no rebound Musculoskeletal: moves all limbs Neurologic: responds to commands, awake Skin: jaundiced, mild edema Impression: Acute alcoholic intoxication Severe Sepsis Alcoholic Hepatitis Possible Cirrhosis Hepatorenal syndrome - worsening renal function - on HD Multiorgan Failure Extremelt poor prognosis Possible Portal Hypertension Hypernatremia Pancreatitis, alcoholic, acute Anemia Plan ICU management NPO except meds/NGT feeds IV antibiotics per ID Aspiration precautions BiPAP PRN NC O2 GI/Renal following HD per Nephrology Pressors PRN Transfuse PRN Thiamine Monitor labs Adjust FIO2 - sats 90-96% Patient has extremely poor prognosis Ongoing attempts with family discussions wrt possible DNR/DNI status Labs: noted EKG: Rate: tachycardiac Rhythm: NSR ST Segments: other - NSST changes Chest X-Ray: no significant change, hypoventilatory exam, no consolidation, no effusion, no pneumothorax, no acute cardiopulmonary disease CT abdomen pelvis: Severely enlarged liver and fatty liver. Mild ascites. Critical Care - Objective Last 24 Hour Vital Signs Date Time Temp Pulse Resp B/P (MAP) Pulse Ox O2 Delivery O2 Flow Rate FiO2 07/11/19 17:00 83 26 94/37 (56) 94 07/11/19 16:00 98.5 87 28 86/45 (59) 96 07/11/19 15:00 83 25 86/39 (55) 96 07/11/19 14:00 85 25 106/38 (60) 97 07/11/19 13:00 85 23 90/37 (54) 97 07/11/19 12:00 82 07/11/19 12:00 98.0 84 19 93/34 (53) 97 07/11/19 12:00 Nasal Cannula 2.0 07/11/19 12:00 2.0 07/11/19 11:00 84 24 97/38 (57) 98 07/11/19 10:00 85 25 89/45 (60) 98 07/11/19 09:00 85 25 90/43 (59) 97 07/11/19 08:00 88 07/11/19 08:00 98.5 86 22 93/35 (54) 94 07/11/19 08:00 2.0 07/11/19 07:53 Nasal Cannula 2.0 07/11/19 07:22 87 25 88/39 (55) 98 07/11/19 07:05 85 29 92/40 (57) 100 07/11/19 06:57 100 Nasal Cannula 3.0 32 07/11/19 06:57 85 26 100 Nasal Cannula 3.0 32 84 24 100 07/11/19 06:00 84 24 95/43 (60) 100 07/11/19 05:00 83 25 90/40 (57) 100 07/11/19 05:00 84 25 100 Facial 28 07/11/19 04:03 81 27 100 Bi-Pap 28 07/11/19 04:00 Bi-pap 07/11/19 04:00 28 07/11/19 04:00 83 07/11/19 04:00 99.2 82 25 90/40 (57) 100 07/11/19 03:53 81 23 100 07/11/19 03:51 81 23 100 Facial 28 07/11/19 03:00 85 23 102/41 (61) 100 07/11/19 02:00 85 25 108/37 (60) 100 07/11/19 01:07 89 25 103/45 (64) 100 07/11/19 01:03 89 31 88/61 (70) 100 07/11/19 01:00 88 25 90/65 (73) 100 07/11/19 00:38 89 30 99 Facial 28 07/11/19 00:00 28 07/11/19 00:00 90 07/11/19 00:00 Bi-pap 07/11/19 00:00 99.0 91 23 144/127 (133) 100 07/10/19 23:04 82 28 98 Facial 28 07/10/19 23:03 82 22 98 Nasal Cannula 2.0 28 07/10/19 23:00 84 28 122/80 (94) 85 07/10/19 22:53 88 33 97 07/10/19 22:00 87 28 99/43 (61) 100 07/10/19 21:00 89 32 95/45 (62) 99 07/10/19 20:00 Nasal Cannula 2.0 07/10/19 20:00 99.1 88 32 102/47 (65) 100 07/10/19 20:00 2.0 07/10/19 20:00 85 07/10/19 19:37 86 22 100 Nasal Cannula 2.0 28 07/10/19 19:36 87 33 99/41 (60) 98 07/10/19 19:27 84 23 98 07/10/19 19:26 98 Nasal Cannula 2.0 28 07/10/19 19:20 102/47 07/10/19 19:09 81 22 89/40 (56) 100 07/10/19 19:00 84 30 87/48 (61) 95 07/10/19 18:00 85 27 96/45 (62) 99 Critical Care - Subjective ROS Limited/Unobtainable: No FI02: 32 Vent Support Mode: BiLevel Sputum Amount: None Tube Feeding Amount: 25 I&O: Intake and Output 07/10/19 07/11/19 19:00 07:00 Intake Total 985.000 ml 55 ml Output Total 900 ml 900 ml Balance 85.000 ml -845 ml Free Water 10 ml 30 ml IV Total 930.000 ml Tube Feeding 25 ml 25 ml Other 20 ml Output Urine Total 0 ml 0 ml Stool Total 900 ml 900 ml Quang Domingo MD Jul 11, 2019 17:29
[2019-07-11] MEDS: Dyna-Hex 2% Top Sol 2oz TOPIC SCH (20:07)
[2019-07-11] MEDS: Epoetin Alfa-EPBX(ESRD on dialysis)3000 units/ml vial SUBQ SCH (21:29)
[2019-07-11] MEDS: Epoetin Alfa-EPBX(ESRD on dialysis)2000 units/ml vial SUBQ SCH (21:29)
[2019-07-12] VITALS (61 sets, daily range): BP systolic 74–116; BP diastolic 39–70
[2019-07-12] MEDS: Albuterol/Ipratropium 3ml neb HHN SCH ×6 (03:09→23:37)
[2019-07-12 05:04] LABS: HEMATOCRIT 25.3 % (42.0-52.0); HEMOGLOBIN 7.8 G/DL (14.2-18.0); MEAN CORPUSCULAR VOLUME 102 FL (80-99); PLATELET COUNT 149 K/UL (150-450); RED BLOOD COUNT 2.49 M/UL (4.70-6.10); RED CELL DISTRIBUTION WIDTH 24.6 % (11.6-14.8)
[2019-07-12 05:24] LABS: WHITE BLOOD COUNT 33.5 K/UL (4.8-10.8)
[2019-07-12 06:36] LABS: ALANINE AMINOTRANSFERASE 13 U/L (12-78); ALBUMIN 1.6 G/DL (3.4-5.0); ALKALINE PHOSPHATASE 285 U/L (46-116); ASPARTATE AMINO TRANSFERASE 190 U/L (15-37); BILIRUBIN,DIRECT 30.3 MG/DL (0.0-0.3); BILIRUBIN,TOTAL 38.4 MG/DL (0.2-1.0)
[2019-07-12 06:40] LABS: ALANINE AMINOTRANSFERASE 16 U/L (12-78); ALBUMIN 1.6 G/DL (3.4-5.0); ALBUMIN/GLOBULIN RATIO 0.4 (1.0-2.7); ALKALINE PHOSPHATASE 289 U/L (46-116); ANION GAP 23 mmol/L (5-15); ASPARTATE AMINO TRANSFERASE 199 U/L (15-37); BILIRUBIN,TOTAL 38.3 MG/DL (0.2-1.0); BLOOD UREA NITROGEN 89 mg/dL (7-18); CALCIUM 7.6 MG/DL (8.5-10.1); CARBON DIOXIDE 15 MMOL/L (21-32); CHLORIDE 114 MMOL/L (98-107); CREATININE 10.5 MG/DL (0.55-1.30); POTASSIUM 3.8 MMOL/L (3.5-5.1); SODIUM 152 MMOL/L (136-145)
[2019-07-12] MEDS: Thiamine 100mg tab ORAL SCH (08:35)
[2019-07-12] MEDS: Lactulose 20gm/30ml UDC NG SCH ×4 (08:36→21:17)
--- NOTE | 2019-07-12 10:54 | Infectious Diseases Prog Note ---
Assessment/Plan Assessment/Plan IMPRESSION: 1. Sepsis. 2. leukocytosis 3. Tachycardia. 4. Leukocytosis. 5. colitis, 6.Alcoholic pancreatitis, 7.Cirrhosis of liver, 8. Acute renal failure likely hepatorenal syndrome, - ESRD 9.Anemia, 10. thrombocytopenia, 11.hypocalcemia, 12.hypomagnesemia, corrected 13 hypokalemia, 14, Alcohol withdrawal. 15.Metabolic encephalopathy 16. Hypophosphatemia 17. Hypernatremia 18. Hypoxic respiratory failure RECOMMENDATION: Observe off antibiotic Stool for C.difficile: negative Poor prognosis Subjective ROS Limited/Unobtainable: Yes Constitutional: Reports: fever, other - T=100 Gastrointestinal/Abdominal: Reports: other - had paracentesis Allergies: Coded Allergies: No Known Allergies (Unverified , 06/20/19) Objective Vital Signs Last 24 Hour Vital Signs Date Time Temp Pulse Resp B/P (MAP) Pulse Ox O2 Delivery O2 Flow Rate FiO2 07/12/19 10:00 85 26 103/46 (65) 98 07/12/19 09:00 89 25 99/52 (68) 99 07/12/19 08:00 100.0 89 32 90/47 (61) 97 07/12/19 08:00 Nasal Cannula 2.0 07/12/19 08:00 28 07/12/19 08:00 90 07/12/19 07:35 92 28 100 Nasal Cannula 2.0 28 07/12/19 07:30 92 28 106/48 (67) 99 07/12/19 07:27 94 Nasal Cannula 2.0 28 07/12/19 07:25 89 35 94 07/12/19 07:15 92 32 96/50 (65) 96 07/12/19 07:00 91 30 103/48 (66) 95 07/12/19 07:00 96/50 07/12/19 06:45 89 30 95/47 (63) 95 07/12/19 06:30 91 28 98/52 (67) 93 07/12/19 06:15 98.8 90 30 90/59 (69) 94 07/12/19 06:00 93 32 96/46 (63) 96 07/12/19 06:00 90/59 07/12/19 05:45 92 30 102/50 (67) 94 07/12/19 05:30 92 29 103/48 (66) 97 9/19/19 05:15 95 34 105/50 (68) 97 07/12/19 05:00 99/44 07/12/19 05:00 91 30 99/44 (62) 97 07/12/19 04:45 91 29 99/48 (65) 97 07/12/19 04:30 95 30 101/47 (65) 97 07/12/19 04:15 93 31 106/47 (66) 96 07/12/19 04:00 Nasal Cannula 2.0 07/12/19 04:00 99.8 92 32 102/46 (64) 97 07/12/19 04:00 28 07/12/19 04:00 95 07/12/19 03:59 101/43 07/12/19 03:58 101/43 07/12/19 03:52 92 31 101/43 (62) 96 07/12/19 03:30 93 31 93/40 (57) 96 07/12/19 03:11 87 30 98 Facial 28 90 30 100 Bi-Pap 28 07/12/19 03:00 89/40 07/12/19 03:00 89 30 89/40 (56) 97 07/12/19 02:45 92 33 97/46 (63) 97 07/12/19 02:30 92 30 98/42 (60) 97 07/12/19 02:15 95 28 101/49 (66) 97 07/12/19 02:00 95 28 96/70 (79) 97 07/12/19 02:00 101/49 07/12/19 01:45 90 31 96/44 (61) 96 07/12/19 01:30 93 28 98/46 (63) 98 07/12/19 01:17 92 26 98 Facial 28 07/12/19 01:15 93 30 101/52 (68) 98 07/12/19 01:00 101/49 07/12/19 01:00 92 30 103/44 (63) 98 07/12/19 00:45 94 30 102/50 (67) 98 07/12/19 00:30 94 32 100/46 (64) 98 07/12/19 00:15 96 30 99/47 (64) 97 07/12/19 00:00 28 07/12/19 00:00 98.6 90 29 94/51 (65) 98 9/19/19 00:00 94/51 9/19/19 00:00 Nasal Cannula 2.0 9/18/19 23:45 91 31 98/51 (67) 98 9/18/19 23:30 90 29 95/44 (61) 97 9/18/19 23:15 92 31 96/50 (65) 99 9/18/19 23:10 88 25 100 Facial 28 9/18/19 23:06 89 28 100 Nasal Cannula 2.0 28 84 29 96 9/18/19 23:00 85 32 92/46 (61) 96 9/18/19 23:00 96/50 9/18/19 22:46 86 29 93/47 (62) 96 9/18/19 22:30 85 31 92/46 (61) 96 9/18/19 22:15 86 31 93/42 (59) 96 9/18/19 22:00 86/53 9/18/19 22:00 85 26 86/53 (64) 96 9/18/19 21:45 86 31 91/46 (61) 95 9/18/19 21:30 87 29 96/45 (62) 95 9/18/19 21:15 86 29 97/45 (62) 96 9/18/19 21:00 85 32 88/45 (59) 96 9/18/19 21:00 88/45 9/18/19 20:59 86 28 88/44 (59) 96 9/18/19 20:45 88 32 91/43 (59) 97 9/18/19 20:30 86 25 92/50 (64) 97 9/18/19 20:15 86 27 89/47 (61) 97 9/18/19 20:00 Nasal Cannula 2.0 9/18/19 20:00 93 9/18/19 20:00 98.6 84 28 84/41 (55) 97 9/18/19 20:00 2.0 9/18/19 19:55 70/40 9/18/19 19:45 85 24 90/47 (61) 100 9/18/19 19:32 84 22 100 Nasal Cannula 1.0 24 81 21 96 9/18/19 19:31 96 Nasal Cannula 1.0 24 9/18/19 19:30 83 25 77/45 (56) 96 9/18/19 19:23 83 26 84/41 (55) 98 07/11/19 19:18 83 28 81/42 (55) 97 07/11/19 19:15 83 28 68/52 (57) 96 07/11/19 19:14 83 29 80/31 (47) 96 07/11/19 19:00 81 26 83/42 (56) 96 07/11/19 18:00 79 22 96/40 (58) 96 07/11/19 17:00 83 26 94/37 (56) 94 07/11/19 16:00 98.5 87 28 86/45 (59) 96 07/11/19 16:00 2.0 07/11/19 16:00 Nasal Cannula 2.0 07/11/19 16:00 84 07/11/19 15:00 83 25 86/39 (55) 96 07/11/19 14:53 106/38 07/11/19 14:00 85 25 106/38 (60) 97 07/11/19 13:00 85 23 90/37 (54) 97 07/11/19 12:00 82 07/11/19 12:00 98.0 84 19 93/34 (53) 97 07/11/19 12:00 Nasal Cannula 2.0 07/11/19 12:00 2.0 07/11/19 11:00 84 24 97/38 (57) 98 Height (Feet): 5 Height (Inches): 9.00 Weight (Pounds): 229 HEENT: mucous membranes moist, other - icterus Respiratory/Chest: lungs clear Cardiovascular: normal rate, other - HD & PICC line Abdomen: distended Extremities: other - edema Neurologic/Psychiatric: disoriented Microbiology Date/Time Source Procedure Growth Status 07/11/19 10:56 Stool Clostridium difficile Toxin Assay - Final Complete Laboratory Tests Test 07/12/19 04:10 White Blood Count 33.5 K/UL (4.8-10.8) *H Red Blood Count 2.49 M/UL (4.70-6.10) L Hemoglobin 7.8 G/DL (14.2-18.0) L Hematocrit 25.3 % (42.0-52.0) L Mean Corpuscular Volume 102 FL (80-99) H Mean Corpuscular Hemoglobin 31.2 PG (27.0-31.0) H Mean Corpuscular Hemoglobin Concent 30.7 G/DL (32.0-36.0) L Red Cell Distribution Width 24.6 % (11.6-14.8) H Platelet Count 149 K/UL (150-450) L Mean Platelet Volume 8.5 FL (6.5-10.1) Neutrophils (%) (Auto) % (45.0-75.0) Lymphocytes (%) (Auto) % (20.0-45.0) Monocytes (%) (Auto) % (1.0-10.0) Eosinophils (%) (Auto) % (0.0-3.0) Basophils (%) (Auto) % (0.0-2.0) Differential Total Cells Counted 100 Neutrophils % (Manual) 83 % (45-75) H Lymphocytes % (Manual) 3 % (20-45) L Monocytes % (Manual) 9 % (1-10) Eosinophils % (Manual) 1 % (0-3) Basophils % (Manual) 0 % (0-2) Band Neutrophils 4 % (0-8) Platelet Estimate Adequate Platelet Morphology Normal Polychromasia 1+ Hypochromasia 1+ Anisocytosis 3+ Macrocytosis 1+ Sodium Level 152 MMOL/L (136-145) H Potassium Level 3.8 MMOL/L (3.5-5.1) Chloride Level 114 MMOL/L (98-107) H Carbon Dioxide Level 15 MMOL/L (21-32) L Anion Gap 23 mmol/L (5-15) H Blood Urea Nitrogen 89 mg/dL (7-18) H Creatinine 10.5 MG/DL (0.55-1.30) H Estimat Glomerular Filtration Rate 5.5 mL/min (>60) Glucose Level 141 MG/DL (74-106) H Calcium Level 7.6 MG/DL (8.5-10.1) L Total Bilirubin 38.4 MG/DL (0.2-1.0) H Direct Bilirubin 30.3 MG/DL (0.0-0.3) H Aspartate Amino Transf (AST/SGOT) 190 U/L (15-37) H Alanine Aminotransferase (ALT/SGPT) 13 U/L (12-78) Alkaline Phosphatase 285 U/L (46-116) H Ammonia 278 umol/L (11-32) H Total Protein 5.3 G/DL (6.4-8.2) L Albumin 1.6 G/DL (3.4-5.0) L Globulin 3.8 g/dL Albumin/Globulin Ratio 0.4 (1.0-2.7) L Current Medications Medications (Trade) Dose Ordered Sig/Gabriela Route PRN Reason Start Time Stop Time Status Last Admin Dose Admin Albuterol/ Ipratropium (Albuterol/ Ipratropium) 3 ml Q4HRT HHN 07/09/19 15:30 07/14/19 15:29 07/12/19 07:24 Chlorhexidine Gluconate (Emilie-Hex 2%) 1 applic DAILY@2000 TOPIC 06/26/19 20:00 07/26/19 19:59 07/11/19 20:07 Dopamine HCl/ Dextrose 250 ml @ 0 mls/hr Q24H IV 06/30/19 14:53 07/30/19 14:52 07/05/19 12:42 Epoetin Michael (Epoetin Michael(ESRD on dialysis)) 2,000 unit -TUE SUBQ 07/02/19 21:00 08/01/19 20:59 07/11/19 21:29 Epoetin Michael (Epoetin Michael(ESRD on dialysis)) 3,000 unit SUBQ 07/02/19 21:00 08/01/19 20:59 07/11/19 21:29 Lactulose (Cephulac) 30 gm FOUR TIMES A DAY NG 07/01/19 09:00 07/20/19 12:59 07/12/19 08:36 Lansoprazole (Prevacid) 30 mg BID NG 07/11/19 09:00 08/10/19 08:59 07/12/19 08:35 Multivitamins (Multivitamins) 1 tab DAILY ORAL 07/10/19 09:00 08/09/19 08:59 07/12/19 08:35 Norepinephrine Bitartrate 4 mg/ Dextrose 250 ml @ 0 mls/hr Q24H IV 07/06/19 19:20 08/05/19 19:19 07/12/19 03:59 Thiamine HCl (Vitamin B1) 100 mg DAILY ORAL 07/10/19 09:00 08/09/19 08:59 07/12/19 08:35 Ilia Chakraborty MD Jul 12, 2019 10:54
--- NOTE | 2019-07-12 12:17 | General Progress Note ---
Assessment/Plan Problem List: (1) Pancreatitis, alcoholic, acute ICD Codes: K85.20 - Alcohol induced acute pancreatitis without necrosis or infection SNOMED: 026190168, 1473565 Qualifiers: Qualified Codes: K85.20 - Alcohol induced acute pancreatitis without necrosis or infection (2) Acute alcoholic intoxication ICD Codes: F10.929 - Alcohol use, unspecified with intoxication, unspecified SNOMED: 61017060, 7970470 Qualifiers: Qualified Codes: F10.920 - Alcohol use, unspecified with intoxication, uncomplicated (3) Anemia ICD Codes: D64.9 - Anemia, unspecified SNOMED: 188996620 Qualifiers: Qualified Codes: D64.9 - Anemia, unspecified Status: stable, progressing, deteriorating Assessment/Plan: NGTF repeat labs fu nephrology cont lactulose xifaxan prn paracentesis>> repeated 800 cc repeat KUB>> ? ileus poor prognosis Subjective ROS Limited/Unobtainable: No Allergies: Coded Allergies: No Known Allergies (Unverified , 06/20/19) Objective Last 24 Hour Vital Signs Date Time Temp Pulse Resp B/P (MAP) Pulse Ox O2 Delivery O2 Flow Rate FiO2 07/12/19 11:54 101/56 07/12/19 11:19 83 20 96 07/12/19 11:00 83 25 101/56 (71) 97 07/12/19 10:30 83 23 94/54 (67) 98 07/12/19 10:00 85 26 103/46 (65) 98 07/12/19 09:30 87 24 76/48 (57) 98 07/12/19 09:00 89 25 99/52 (68) 99 07/12/19 08:30 94 28 90/69 (76) 98 07/12/19 08:00 100.0 89 32 90/47 (61) 97 07/12/19 08:00 Nasal Cannula 2.0 07/12/19 08:00 28 07/12/19 08:00 90 07/12/19 07:35 92 28 100 Nasal Cannula 2.0 28 07/12/19 07:30 92 28 106/48 (67) 99 07/12/19 07:27 94 Nasal Cannula 2.0 28 07/12/19 07:25 89 35 94 07/12/19 07:15 92 32 96/50 (65) 96 07/12/19 07:00 91 30 103/48 (66) 95 07/12/19 07:00 96/50 07/12/19 06:45 89 30 95/47 (63) 95 07/12/19 06:30 91 28 98/52 (67) 93 07/12/19 06:15 98.8 90 30 90/59 (69) 94 07/12/19 06:00 93 32 96/46 (63) 96 07/12/19 06:00 90/59 07/12/19 05:45 92 30 102/50 (67) 94 07/12/19 05:30 92 29 103/48 (66) 97 07/12/19 05:15 95 34 105/50 (68) 97 07/12/19 05:00 99/44 07/12/19 05:00 91 30 99/44 (62) 97 07/12/19 04:45 91 29 99/48 (65) 97 07/12/19 04:30 95 30 101/47 (65) 97 07/12/19 04:15 93 31 106/47 (66) 96 07/12/19 04:00 Nasal Cannula 2.0 07/12/19 04:00 99.8 92 32 102/46 (64) 97 07/12/19 04:00 28 07/12/19 04:00 95 07/12/19 03:59 101/43 07/12/19 03:58 101/43 07/12/19 03:52 92 31 101/43 (62) 96 07/12/19 03:30 93 31 93/40 (57) 96 07/12/19 03:11 87 30 98 Facial 28 90 30 100 Bi-Pap 28 07/12/19 03:00 89/40 07/12/19 03:00 89 30 89/40 (56) 97 07/12/19 02:45 92 33 97/46 (63) 97 07/12/19 02:30 92 30 98/42 (60) 97 07/12/19 02:15 95 28 101/49 (66) 97 07/12/19 02:00 95 28 96/70 (79) 97 07/12/19 02:00 101/49 07/12/19 01:45 90 31 96/44 (61) 96 07/12/19 01:30 93 28 98/46 (63) 98 // 01:17 92 26 98 Facial 28 07/12/19 01:15 93 30 101/52 (68) 98 07/12/ 01:00 101/49 07/12/19 01:00 92 30 103/44 (63) 98 / 00:45 94 30 102/50 (67) 98 07/12/19 00:30 94 32 100/46 (64) 98 07/12/19 00:15 96 30 99/47 (64) 97 07/12/ 00:00 28 07/12/19 00:00 98.6 90 29 94/51 (65) 98 07/12/19 00:00 94/51 07/12/19 00:00 Nasal Cannula 2.0 07/11/19 23:45 91 31 98/51 (67) 98 // 23:30 90 29 95/44 (61) 97 07/11/19 23:15 92 31 96/50 (65) 99 07/11/19 23:10 88 25 100 Facial 28 07/11/ 23:06 89 28 100 Nasal Cannula 2.0 28 84 29 96 18/19 23:00 85 32 92/46 (61) 96 /18/19 23:00 96/50 18/19 22:46 86 29 93/47 (62) 96 /18/19 22:30 85 31 92/46 (61) 96 /18/19 22:15 86 31 93/42 (59) 96 /18/19 22:00 86/53 9/18/19 22:00 85 26 86/53 (64) 96 /18/19 21:45 86 31 91/46 (61) 95 /18/19 21:30 87 29 96/45 (62) 95 9/18/19 21:15 86 29 97/45 (62) 96 9/18/19 21:00 85 32 88/45 (59) 96 9/18/19 21:00 88/45 9/18/19 20:59 86 28 88/44 (59) 96 9/18/19 20:45 88 32 91/43 (59) 97 9/18/19 20:30 86 25 92/50 (64) 97 9/18/19 20:15 86 27 89/47 (61) 97 07/11/19 20:00 Nasal Cannula 2.0 07/11/19 20:00 93 07/11/19 20:00 98.6 84 28 84/41 (55) 97 07/11/19 20:00 2.0 07/11/19 19:55 70/40 07/11/19 19:45 85 24 90/47 (61) 100 07/11/19 19:32 84 22 100 Nasal Cannula 1.0 24 81 21 96 07/11/19 19:31 96 Nasal Cannula 1.0 24 07/11/19 19:30 83 25 77/45 (56) 96 07/11/19 19:23 83 26 84/41 (55) 98 07/11/19 19:18 83 28 81/42 (55) 97 07/11/19 19:15 83 28 68/52 (57) 96 07/11/19 19:14 83 29 80/31 (47) 96 07/11/19 19:00 81 26 83/42 (56) 96 07/11/19 18:00 79 22 96/40 (58) 96 07/11/19 17:00 83 26 94/37 (56) 94 07/11/19 16:00 98.5 87 28 86/45 (59) 96 07/11/19 16:00 2.0 07/11/19 16:00 Nasal Cannula 2.0 07/11/19 16:00 84 07/11/19 15:00 83 25 86/39 (55) 96 07/11/19 14:53 106/38 07/11/19 14:00 85 25 106/38 (60) 97 07/11/19 13:00 85 23 90/37 (54) 97 Intake and Output 07/11/19 07/12/19 19:00 07:00 Intake Total 810 ml 788.125 ml Output Total 700 ml 1000 ml Balance 110 ml -211.875 ml Free Water 440 ml 370 ml IV Total 150 ml 323.125 ml Tube Feeding 200 ml 95 ml Other 20 ml Output Urine Total 0 ml 0 ml Stool Total 700 ml 1000 ml Laboratory Tests 07/12/19 04:10: White Blood Count 33.5*H, Red Blood Count 2.49L, Hemoglobin 7.8L, Hematocrit 25.3L, Mean Corpuscular Volume 102H, Mean Corpuscular Hemoglobin 31.2H, Mean Corpuscular Hemoglobin Concent 30.7L, Red Cell Distribution Width 24.6H, Platelet Count 149L, Mean Platelet Volume 8.5, Neutrophils (%) (Auto) , Lymphocytes (%) (Auto) , Monocytes (%) (Auto) , Eosinophils (%) (Auto) , Basophils (%) (Auto) , Differential Total Cells Counted 100, Neutrophils % ( Manual) 83H, Lymphocytes % (Manual) 3L, Monocytes % (Manual) 9, Eosinophils % ( Manual) 1, Basophils % (Manual) 0, Band Neutrophils 4, Platelet Estimate Adequate, Platelet Morphology Normal, Polychromasia 1+, Hypochromasia 1+, Anisocytosis 3+, Macrocytosis 1+, Sodium Level 152H, Potassium Level 3.8, Chloride Level 114H, Carbon Dioxide Level 15L, Anion Gap 23H, Blood Urea Nitrogen 89H, Creatinine 10.5H, Estimat Glomerular Filtration Rate 5.5, Glucose Level 141H, Calcium Level 7.6L, Total Bilirubin 38.4H, Direct Bilirubin 30.3H, Aspartate Amino Transf (AST/SGOT) 190H, Alanine Aminotransferase (ALT/SGPT) 13, Alkaline Phosphatase 285H, Ammonia 278H, Total Protein 5.3L, Albumin 1.6L, Globulin 3.8, Albumin/Globulin Ratio 0.4L Height (Feet): 5 Height (Inches): 9.00 Weight (Pounds): 229 General Appearance: lethargic EENT: normal ENT inspection, scleral icterus Neck: supple Cardiovascular: normal rate Respiratory/Chest: decreased breath sounds Abdomen: normal bowel sounds, non tender, soft Extremities: non-tender Merlin Esposito MD Jul 12, 2019 12:17
--- NOTE | 2019-07-12 12:22 | General Progress Note ---
Assessment/Plan Problem List: (1) Anemia ICD Codes: D64.9 - Anemia, unspecified SNOMED: 767301973 Qualifiers: Qualified Codes: D64.9 - Anemia, unspecified (2) Acute alcoholic intoxication ICD Codes: F10.929 - Alcohol use, unspecified with intoxication, unspecified SNOMED: 90631122, 3516063 Qualifiers: Qualified Codes: F10.920 - Alcohol use, unspecified with intoxication, uncomplicated (3) End-stage liver disease ICD Codes: K72.90 - Hepatic failure, unspecified without coma SNOMED: 962915537 (4) Hepatorenal syndrome ICD Codes: K76.7 - Hepatorenal syndrome SNOMED: 40008344, 3780951 (5) Pancreatitis, alcoholic, acute ICD Codes: K85.20 - Alcohol induced acute pancreatitis without necrosis or infection SNOMED: 026626846, 7742874 Qualifiers: Qualified Codes: K85.20 - Alcohol induced acute pancreatitis without necrosis or infection (6) Respiratory failure ICD Codes: J96.90 - Respiratory failure, unspecified, unspecified whether with hypoxia or hypercapnia SNOMED: 292168887 Status: stable, progressing, deteriorating Assessment/Plan: nothing has changed pt is critically ill and i favor comfort care given extent of end stage liver disease and multi organ failure jaundiced distended abdomen w ascites worsening hepatorenal syndrome worsening renal failure persistent leukocytosis persistent anemia very poor prognosis confused hepatic encephalopathy elevated lft s/p paracentesis hepatorenal syndrome getting worse Subjective ROS Limited/Unobtainable: Yes Allergies: Coded Allergies: No Known Allergies (Unverified , 06/20/19) Objective Last 24 Hour Vital Signs Date Time Temp Pulse Resp B/P (MAP) Pulse Ox O2 Delivery O2 Flow Rate FiO2 07/12/19 11:54 101/56 07/12/19 11:19 83 20 96 07/12/19 11:00 83 25 101/56 (71) 97 07/12/19 10:30 83 23 94/54 (67) 98 07/12/19 10:00 85 26 103/46 (65) 98 07/12/19 09:30 87 24 76/48 (57) 98 07/12/19 09:00 89 25 99/52 (68) 99 07/12/19 08:30 94 28 90/69 (76) 98 07/12/19 08:00 100.0 89 32 90/47 (61) 97 07/12/19 08:00 Nasal Cannula 2.0 07/12/19 08:00 28 07/12/19 08:00 90 07/12/19 07:35 92 28 100 Nasal Cannula 2.0 28 07/12/19 07:30 92 28 106/48 (67) 99 07/12/19 07:27 94 Nasal Cannula 2.0 28 07/12/19 07:25 89 35 94 07/12/19 07:15 92 32 96/50 (65) 96 07/12/19 07:00 91 30 103/48 (66) 95 07/12/19 07:00 96/50 07/12/19 06:45 89 30 95/47 (63) 95 07/12/19 06:30 91 28 98/52 (67) 93 07/12/19 06:15 98.8 90 30 90/59 (69) 94 07/12/19 06:00 93 32 96/46 (63) 96 07/12/19 06:00 90/59 07/12/19 05:45 92 30 102/50 (67) 94 07/12/19 05:30 92 29 103/48 (66) 97 07/12/19 05:15 95 34 105/50 (68) 97 07/12/19 05:00 99/44 07/12/19 05:00 91 30 99/44 (62) 97 07/12/19 04:45 91 29 99/48 (65) 97 07/12/19 04:30 95 30 101/47 (65) 97 07/12/19 04:15 93 31 106/47 (66) 96 07/12/19 04:00 Nasal Cannula 2.0 07/12/19 04:00 99.8 92 32 102/46 (64) 97 07/12/19 04:00 28 07/12/19 04:00 95 07/12/19 03:59 101/43 07/12/19 03:58 101/43 07/12/19 03:52 92 31 101/43 (62) 96 07/12/19 03:30 93 31 93/40 (57) 96 07/12/19 03:11 87 30 98 Facial 28 90 30 100 Bi-Pap 28 9/19/19 03:00 89/40 07/12/19 03:00 89 30 89/40 (56) 97 07/12/19 02:45 92 33 97/46 (63) 97 07/12/19 02:30 92 30 98/42 (60) 97 07/12/19 02:15 95 28 101/49 (66) 97 07/12/19 02:00 95 28 96/70 (79) 97 07/12/19 02:00 101/49 07/12/19 01:45 90 31 96/44 (61) 96 07/12/19 01:30 93 28 98/46 (63) 98 07/12/19 01:17 92 26 98 Facial 28 07/12/19 01:15 93 30 101/52 (68) 98 07/12/19 01:00 101/49 07/12/19 01:00 92 30 103/44 (63) 98 07/12/19 00:45 94 30 102/50 (67) 98 07/12/19 00:30 94 32 100/46 (64) 98 07/12/19 00:15 96 30 99/47 (64) 97 07/12/19 00:00 28 07/12/19 00:00 98.6 90 29 94/51 (65) 98 07/12/19 00:00 94/51 07/12/19 00:00 Nasal Cannula 2.0 07/11/19 23:45 91 31 98/51 (67) 98 07/11/19 23:30 90 29 95/44 (61) 97 07/11/19 23:15 92 31 96/50 (65) 99 07/11/19 23:10 88 25 100 Facial 28 07/11/19 23:06 89 28 100 Nasal Cannula 2.0 28 84 29 96 07/11/19 23:00 85 32 92/46 (61) 96 19 23:00 96/50 07/11/19 22:46 86 29 93/47 (62) 96 07/11/19 22:30 85 31 92/46 (61) 96 19 22:15 86 31 93/42 (59) 96 18/19 22:00 86/53 1819 22:00 85 26 86/53 (64) 96 18 21:45 86 31 91/46 (61) 95 9/18/19 21:30 87 29 96/45 (62) 95 9/18/19 21:15 86 29 97/45 (62) 96 9/18/19 21:00 85 32 88/45 (59) 96 9/18/19 21:00 88/45 9/18/19 20:59 86 28 88/44 (59) 96 9/18/19 20:45 88 32 91/43 (59) 97 /18/19 20:30 86 25 92/50 (64) 97 9/18/19 20:15 86 27 89/47 (61) 97 /18/19 20:00 Nasal Cannula 2.0 18/19 20:00 93 /18/19 20:00 98.6 84 28 84/41 (55) 97 /18/19 20:00 2.0 /18/19 19:55 70/40 /18/19 19:45 85 24 90/47 (61) 100 /18/19 19:32 84 22 100 Nasal Cannula 1.0 24 81 21 96 /18/19 19:31 96 Nasal Cannula 1.0 24 /18/19 19:30 83 25 77/45 (56) 96 /18/19 19:23 83 26 84/41 (55) 98 9/18/19 19:18 83 28 81/42 (55) 97 /18/19 19:15 83 28 68/52 (57) 96 /18/19 19:14 83 29 80/31 (47) 96 /18/19 19:00 81 26 83/42 (56) 96 /18/19 18:00 79 22 96/40 (58) 96 9/18/19 17:00 83 26 94/37 (56) 94 /18/19 16:00 98.5 87 28 86/45 (59) 96 /18/19 16:00 2.0 18/19 16:00 Nasal Cannula 2.0 18/19 16:00 84 /18/19 15:00 83 25 86/39 (55) 96 /18/19 14:53 106/38 18/19 14:00 85 25 106/38 (60) 97 /18/19 13:00 85 23 90/37 (54) 97 Intake and Output 07/11/19 07/12/19 19:00 07:00 Intake Total 810 ml 788.125 ml Output Total 700 ml 1000 ml Balance 110 ml -211.875 ml Free Water 440 ml 370 ml IV Total 150 ml 323.125 ml Tube Feeding 200 ml 95 ml Other 20 ml Output Urine Total 0 ml 0 ml Stool Total 700 ml 1000 ml Laboratory Tests 07/12/19 04:10: White Blood Count 33.5*H, Red Blood Count 2.49L, Hemoglobin 7.8L, Hematocrit 25.3L, Mean Corpuscular Volume 102H, Mean Corpuscular Hemoglobin 31.2H, Mean Corpuscular Hemoglobin Concent 30.7L, Red Cell Distribution Width 24.6H, Platelet Count 149L, Mean Platelet Volume 8.5, Neutrophils (%) (Auto) , Lymphocytes (%) (Auto) , Monocytes (%) (Auto) , Eosinophils (%) (Auto) , Basophils (%) (Auto) , Differential Total Cells Counted 100, Neutrophils % ( Manual) 83H, Lymphocytes % (Manual) 3L, Monocytes % (Manual) 9, Eosinophils % ( Manual) 1, Basophils % (Manual) 0, Band Neutrophils 4, Platelet Estimate Adequate, Platelet Morphology Normal, Polychromasia 1+, Hypochromasia 1+, Anisocytosis 3+, Macrocytosis 1+, Sodium Level 152H, Potassium Level 3.8, Chloride Level 114H, Carbon Dioxide Level 15L, Anion Gap 23H, Blood Urea Nitrogen 89H, Creatinine 10.5H, Estimat Glomerular Filtration Rate 5.5, Glucose Level 141H, Calcium Level 7.6L, Total Bilirubin 38.4H, Direct Bilirubin 30.3H, Aspartate Amino Transf (AST/SGOT) 190H, Alanine Aminotransferase (ALT/SGPT) 13, Alkaline Phosphatase 285H, Ammonia 278H, Total Protein 5.3L, Albumin 1.6L, Globulin 3.8, Albumin/Globulin Ratio 0.4L Height (Feet): 5 Height (Inches): 9.00 Weight (Pounds): 229 Abdomen: tender Deejay Saldaña MD Jul 12, 2019 12:22
[2019-07-12] MEDS: DOPamine 400mg/250ml 250 ML IV SCH (12:57)
--- NOTE | 2019-07-12 13:01 | Nephrology Progress Note ---
Assessment/Plan Problem List: (1) End-stage liver disease (2) Hepatorenal syndrome (3) Pancreatitis, alcoholic, acute (4) Acute alcoholic intoxication (5) Anemia (6) Respiratory failure (7) Hypernatremia Assessment Acute alcoholic intoxication End-stage liver disease Hepatorenal syndrome Pancreatitis, alcoholic, acute Anemia Plan Hypotensive- on pressors not tolerated dialysis last time due to low BP K supplement trial paracenthesis done yesterday will attempt HD in am with pressor support I CONSIDER TREATMENT OF THIS PATIENT TO BE FUTILE correct low K per orders on 06/28/19 met with Brother- Liliana zonia [employer] Brother will discuss with family regarding DNR and comfort care K and Mag and phos supplement as needed has parker NO OUTPUT has RT (rectal tube) on lactulose discussed with RN Correct lytes IV protonix lactulose Folate and Thiamin per GI transfuse per consultants Subjective ROS Limited/Unobtainable: No Constitutional: Reports: malaise, weakness Objective Objective Last 24 Hour Vital Signs Date Time Temp Pulse Resp B/P (MAP) Pulse Ox O2 Delivery O2 Flow Rate FiO2 07/12/19 12:57 93/52 07/12/19 12:30 85 24 93/52 (66) 95 07/12/19 12:00 2.0 07/12/19 12:00 97.8 86 24 116/61 (79) 95 07/12/19 12:00 85 07/12/19 12:00 Nasal Cannula 2.0 07/12/19 11:54 101/56 07/12/19 11:30 84 26 105/56 (72) 98 07/12/19 11:19 83 20 96 07/12/19 11:00 83 25 101/56 (71) 97 07/12/19 10:30 83 23 94/54 (67) 98 07/12/19 10:00 85 26 103/46 (65) 98 07/12/19 09:30 87 24 76/48 (57) 98 07/12/19 09:00 89 25 99/52 (68) 99 07/12/19 08:30 94 28 90/69 (76) 98 07/12/19 08:00 100.0 89 32 90/47 (61) 97 07/12/19 08:00 Nasal Cannula 2.0 07/12/19 08:00 2.0 07/12/19 08:00 90 07/12/19 07:35 92 28 100 Nasal Cannula 2.0 28 07/12/19 07:30 92 28 106/48 (67) 99 07/12/19 07:27 94 Nasal Cannula 2.0 28 07/12/19 07:25 89 35 94 07/12/19 07:15 92 32 96/50 (65) 96 07/12/19 07:00 91 30 103/48 (66) 95 07/12/19 07:00 96/50 07/12/19 06:45 89 30 95/47 (63) 95 07/12/19 06:30 91 28 98/52 (67) 93 07/12/19 06:15 98.8 90 30 90/59 (69) 94 07/12/19 06:00 93 32 96/46 (63) 96 07/12/19 06:00 90/59 07/12/19 05:45 92 30 102/50 (67) 94 07/12/19 05:30 92 29 103/48 (66) 97 07/12/19 05:15 95 34 105/50 (68) 97 07/12/19 05:00 99/44 07/12/19 05:00 91 30 99/44 (62) 97 07/12/19 04:45 91 29 99/48 (65) 97 07/12/19 04:30 95 30 101/47 (65) 97 07/12/19 04:15 93 31 106/47 (66) 96 07/12/19 04:00 Nasal Cannula 2.0 07/12/19 04:00 99.8 92 32 102/46 (64) 97 07/12/19 04:00 28 07/12/19 04:00 95 07/12/19 03:59 101/43 07/12/19 03:58 101/43 07/12/19 03:52 92 31 101/43 (62) 96 07/12/19 03:30 93 31 93/40 (57) 96 07/12/19 03:11 87 30 98 Facial 28 90 30 100 Bi-Pap 28 07/12/19 03:00 89/40 07/12/19 03:00 89 30 89/40 (56) 97 07/12/19 02:45 92 33 97/46 (63) 97 9/19/19 02:30 92 30 98/42 (60) 97 07/12/19 02:15 95 28 101/49 (66) 97 07/12/19 02:00 95 28 96/70 (79) 97 07/12/19 02:00 101/49 07/12/19 01:45 90 31 96/44 (61) 96 07/12/19 01:30 93 28 98/46 (63) 98 07/12/19 01:17 92 26 98 Facial 28 07/12/19 01:15 93 30 101/52 (68) 98 07/12/19 01:00 101/49 07/12/19 01:00 92 30 103/44 (63) 98 07/12/19 00:45 94 30 102/50 (67) 98 07/12/19 00:30 94 32 100/46 (64) 98 07/12/19 00:15 96 30 99/47 (64) 97 07/12/19 00:00 28 07/12/19 00:00 98.6 90 29 94/51 (65) 98 07/12/19 00:00 94/51 07/12/19 00:00 Nasal Cannula 2.0 07/11/19 23:45 91 31 98/51 (67) 98 07/11/19 23:30 90 29 95/44 (61) 97 07/11/19 23:15 92 31 96/50 (65) 99 07/11/19 23:10 88 25 100 Facial 28 07/11/19 23:06 89 28 100 Nasal Cannula 2.0 28 84 29 96 07/11/19 23:00 85 32 92/46 (61) 96 18/19 23:00 96/50 19 22:46 86 29 93/47 (62) 96 18/19 22:30 85 31 92/46 (61) 96 18/19 22:15 86 31 93/42 (59) 96 18/19 22:00 86/53 918/19 22:00 85 26 86/53 (64) 96 18/19 21:45 86 31 91/46 (61) 95 18/ 21:30 87 29 96/45 (62) 95 18/19 21:15 86 29 97/45 (62) 96 9/18/19 21:00 85 32 88/45 (59) 96 1819 21:00 88/45 1819 20:59 86 28 88/44 (59) 96 18 20:45 88 32 91/43 (59) 97 07/11/19 20:30 86 25 92/50 (64) 97 18 20:15 86 27 89/47 (61) 97 07/11/19 20:00 Nasal Cannula 2.0 07/11/19 20:00 93 07/11/19 20:00 98.6 84 28 84/41 (55) 97 07/11/19 20:00 2.0 07/11/19 19:55 70/40 07/11/19 19:45 85 24 90/47 (61) 100 07/11/19 19:32 84 22 100 Nasal Cannula 1.0 24 81 21 96 07/11/19 19:31 96 Nasal Cannula 1.0 24 07/11/19 19:30 83 25 77/45 (56) 96 07/11/19 19:23 83 26 84/41 (55) 98 07/11/19 19:18 83 28 81/42 (55) 97 07/11/19 19:15 83 28 68/52 (57) 96 07/11/19 19:14 83 29 80/31 (47) 96 07/11/19 19:00 81 26 83/42 (56) 96 07/11/19 18:00 79 22 96/40 (58) 96 07/11/19 17:00 83 26 94/37 (56) 94 07/11/19 16:00 98.5 87 28 86/45 (59) 96 07/11/19 16:00 2.0 07/11/19 16:00 Nasal Cannula 2.0 07/11/19 16:00 84 07/11/19 15:00 83 25 86/39 (55) 96 07/11/19 14:53 106/38 07/11/19 14:00 85 25 106/38 (60) 97 Intake and Output 07/11/19 07/12/19 19:00 07:00 Intake Total 810 ml 788.125 ml Output Total 700 ml 1000 ml Balance 110 ml -211.875 ml Free Water 440 ml 370 ml IV Total 150 ml 323.125 ml Tube Feeding 200 ml 95 ml Other 20 ml Output Urine Total 0 ml 0 ml Stool Total 700 ml 1000 ml Laboratory Tests 07/12/19 04:10: White Blood Count 33.5*H, Red Blood Count 2.49L, Hemoglobin 7.8L, Hematocrit 25.3L, Mean Corpuscular Volume 102H, Mean Corpuscular Hemoglobin 31.2H, Mean Corpuscular Hemoglobin Concent 30.7L, Red Cell Distribution Width 24.6H, Platelet Count 149L, Mean Platelet Volume 8.5, Neutrophils (%) (Auto) , Lymphocytes (%) (Auto) , Monocytes (%) (Auto) , Eosinophils (%) (Auto) , Basophils (%) (Auto) , Differential Total Cells Counted 100, Neutrophils % ( Manual) 83H, Lymphocytes % (Manual) 3L, Monocytes % (Manual) 9, Eosinophils % ( Manual) 1, Basophils % (Manual) 0, Band Neutrophils 4, Platelet Estimate Adequate, Platelet Morphology Normal, Polychromasia 1+, Hypochromasia 1+, Anisocytosis 3+, Macrocytosis 1+, Sodium Level 152H, Potassium Level 3.8, Chloride Level 114H, Carbon Dioxide Level 15L, Anion Gap 23H, Blood Urea Nitrogen 89H, Creatinine 10.5H, Estimat Glomerular Filtration Rate 5.5, Glucose Level 141H, Calcium Level 7.6L, Total Bilirubin 38.4H, Direct Bilirubin 30.3H, Aspartate Amino Transf (AST/SGOT) 190H, Alanine Aminotransferase (ALT/SGPT) 13, Alkaline Phosphatase 285H, Ammonia 278H, Total Protein 5.3L, Albumin 1.6L, Globulin 3.8, Albumin/Globulin Ratio 0.4L Height (Feet): 5 Height (Inches): 9.00 Weight (Pounds): 229 General Appearance: no apparent distress, other - Jaundiced Cardiovascular: tachycardia Respiratory/Chest: decreased breath sounds Abdomen: distended Extremities: severe edema Arthur Lay MD Jul 12, 2019 13:01
--- NOTE | 2019-07-12 14:54 | Hematology/Onc Progress Note ---
Assessment/Plan Assessment/Plan Assessment and Recs: # Thrombocytopenia - potential causes multifactorial, does have a history of etoh abuse, cirrhosis of the liver, hepatosplenomegaly, portal HTN, coagulopathy noted as well, likely oscillatory pattern can be due to abx as well. Hep panel and HIV ordered (NEG) --> US abd does show, portal htn and cirrhosis ++ --> Peripheral smear ordered to evaluate for blasts /schistocytes reviewed and is negative --> abx and other meds have been reviewed --> ok for ppx if plt >50k w/ either heparin or lovenox --> Transfuse if Plt < 20k and fever, or if Plt < 10k without fever --> plt trend 80-->97-->117-->157k->216k-->107k-->72k-->68k-->109k-->108k-->148k -->176k-->182k->141k-->128k->148k # Anemia of chronic disease due to underlying chronic medical issues, multifactorial (myelosuprresion noted) --> Anemia workup has been reviewed, ferritin 297 --> EPOGEN HAS BEEN ORDERED WITH HD --> Hgb goal >7. Transfuse prn. --> Medications have been reviewed --> low threshold for gi evaluation in case has occult + --> hgb trend: 7.7-->8.2-->9->8.4-->8.3-->8.2-->8-->7.4->7.3-->7.7-->7.8-->7.6-- >8.1->7.5-->7.8 --> serum electrophoresis shows no m-spike 06/27 # Coagulopathy due to cirrhosis --> give Vitk as needed # Leukocytosis with sepsis is on abx --> ID following, appreciate recs --> wbc trend: 17k-->13.9-->19.5-->18.7-->27.4-->33.6->32--->33-->30-->34 --> FLAGYL and CTX-> vanc/amish # Acute alcoholic intoxication --> etoh abuse history --> thiamine, folic acid, ivf # End-stage liver disease --> Hepatorenal syndrome r/o with renal, albumin prn # Pancreatitis, alcoholic, acute # Tachycardia # ESRD --> on had as per renal # Dvt ppx with scds given low plts # POOR PROGNOSIS The timing of this note does not necessarily reflect the time of the patient was seen. GREATLY APPRECIATE CONSULTATION. Subjective Constitutional: Denies: no symptoms, chills, fever, malaise, weakness, other HEENT: Denies: no symptoms, eye pain, blurred vision, tearing, double vision, ear pain, ear discharge, nose pain, nose congestion, throat pain, throat swelling, mouth pain, mouth swelling, other Cardiovascular: Denies: no symptoms, chest pain, edema, irregular heart rate, lightheadedness, palpitations, syncope, other Respiratory: Denies: no symptoms, cough, shortness of breath, SOB with excertion, SOB at rest, sputum, wheezing, other Genitourinary: Denies: no symptoms, burning, discharge, frequency, flank pain, hematuria, incontinence, pain, urgency, other Neurologic/Psychiatric: Denies: no symptoms, anxiety, depressed, emotional problems, headache, numbness, paresthesia, pre-existing deficit, seizure, tingling, tremors, weakness, other Endocrine: Denies: no symptoms, excessive sweating, flushing, intolerance to cold, intolerance to heat, increased hunger, increased thirst, increased urine, unexplained weight gain, unexplained weight loss, other Allergies: Coded Allergies: No Known Allergies (Unverified , 06/20/19) Subjective 06/21: low k, ferritin 297, h/h stable, afebrile, blood transfused 06/22: in icu, on restraints, labs reviewed, no f/c, imaging reviewed 06/23: pain meds given, remains in icu, again in restraints, bili higher, inr as well, given vitk 06/25: no fevers, no chills, no bleeding, confused in bed in icu 06/26: no events to report, no bleeding, remains in icu, ++ bipap 06/27: icu,s/p paracentesis yesterday, off pressors, h/h stable 06/28: on ctx/flagyl, remains confused, no bleeding, plt is lower 06/29: no f/c, on abx, no acute events, no distress, labs reviewed 06/30: remains in the icu, on abx, no f/c, scds+ 07/02: remains in the icu, no fevers or chills, prbc ordered, as well as epo 07/03: remains in the icu, on restraints, on abx, labs noted, vs stable, no acute events 07/04: dw team and agree patient with very poor prognosis, pending bioethics consult 07/05: remains in icu, very poor prognosis, labs noted wbc 27.4, off bipap receiving repiratory tx 07/06: remains icu, very poor prognosis, wbc 33.6 trending up, no f/c, vs stable , on bipap, paracentesis pending 07/08: remains in the icu, labs look worse, though repsonding better this am, able to raise hands 07/09: no events, hd was done, no events, labs noted, no bleeding 07/10: remains borderline in re to mental status, no f/c, no bleeding in the icu 07/11: no events to report, is on lactulose, xiafan, para ordered 07/12: a+o x 1, no bleeding, chills, night sweats, no major changes Objective Objective Current Medications Medications (Trade) Dose Ordered Sig/Gabriela Route PRN Reason Start Time Stop Time Status Last Admin Dose Admin Albuterol/ Ipratropium (Albuterol/ Ipratropium) 3 ml Q4HRT HHN 07/09/19 15:30 07/14/19 15:29 07/12/19 11:19 Chlorhexidine Gluconate (Emilie-Hex 2%) 1 applic DAILY@2000 TOPIC 06/26/19 20:00 07/26/19 19:59 07/11/19 20:07 Dopamine HCl/ Dextrose 250 ml @ 0 mls/hr Q24H IV 06/30/19 14:53 07/30/19 14:52 07/05/19 12:42 Epoetin Michael (Epoetin Michael(ESRD on dialysis)) 2,000 unit MON-WED-FRI SUBQ 07/02/19 21:00 08/01/19 20:59 9/18/19 21:29 Epoetin Michael (Epoetin Michael(ESRD on dialysis)) 3,000 unit TUE-TUE-TUE SUBQ 07/02/19 21:00 08/01/19 20:59 07/11/19 21:29 Lactulose (Cephulac) 30 gm FOUR TIMES A DAY NG 07/01/19 09:00 07/20/19 12:59 07/12/19 13:02 Lansoprazole (Prevacid) 30 mg BID NG 07/11/19 09:00 08/10/19 08:59 07/12/19 08:35 Multivitamins (Multivitamins) 1 tab DAILY ORAL 07/10/19 09:00 08/09/19 08:59 07/12/19 08:35 Norepinephrine Bitartrate 4 mg/ Dextrose 250 ml @ 0 mls/hr Q24H IV 07/06/19 19:20 08/05/19 19:19 07/12/19 11:54 Thiamine HCl (Vitamin B1) 100 mg DAILY ORAL 07/10/19 09:00 08/09/19 08:59 07/12/19 08:35 Last 24 Hour Vital Signs Date Time Temp Pulse Resp B/P (MAP) Pulse Ox O2 Delivery O2 Flow Rate FiO2 07/12/19 14:00 86 27 94/47 (63) 94 07/12/19 13:30 84 26 97/49 (65) 94 07/12/19 13:00 85 28 99/51 (67) 95 07/12/19 12:57 93/52 07/12/19 12:30 85 24 93/52 (66) 95 07/12/19 12:00 2.0 07/12/19 12:00 97.8 86 24 116/61 (79) 95 07/12/19 12:00 85 07/12/19 12:00 Nasal Cannula 2.0 07/12/19 11:54 101/56 07/12/19 11:30 84 26 105/56 (72) 98 07/12/19 11:29 86 24 100 Nasal Cannula 2.0 28 07/12/19 11:19 83 20 96 07/12/19 11:00 83 25 101/56 (71) 97 07/12/19 10:30 83 23 94/54 (67) 98 07/12/19 10:00 85 26 103/46 (65) 98 07/12/19 09:30 87 24 76/48 (57) 98 07/12/19 09:00 89 25 99/52 (68) 99 07/12/19 08:30 94 28 90/69 (76) 98 07/12/19 08:00 100.0 89 32 90/47 (61) 97 07/12/19 08:00 Nasal Cannula 2.0 07/12/19 08:00 2.0 07/12/19 08:00 90 07/12/19 07:35 92 28 100 Nasal Cannula 2.0 28 07/12/19 07:30 92 28 106/48 (67) 99 07/12/19 07:27 94 Nasal Cannula 2.0 28 07/12/19 07:25 89 35 94 07/12/19 07:15 92 32 96/50 (65) 96 07/12/19 07:00 91 30 103/48 (66) 95 07/12/19 07:00 96/50 07/12/19 06:45 89 30 95/47 (63) 95 07/12/19 06:30 91 28 98/52 (67) 93 07/12/19 06:15 98.8 90 30 90/59 (69) 94 07/12/19 06:00 93 32 96/46 (63) 96 07/12/19 06:00 90/59 07/12/19 05:45 92 30 102/50 (67) 94 07/12/19 05:30 92 29 103/48 (66) 97 07/12/19 05:15 95 34 105/50 (68) 97 07/12/19 05:00 99/44 07/12/19 05:00 91 30 99/44 (62) 97 07/12/19 04:45 91 29 99/48 (65) 97 07/12/19 04:30 95 30 101/47 (65) 97 07/12/19 04:15 93 31 106/47 (66) 96 07/12/19 04:00 Nasal Cannula 2.0 07/12/19 04:00 99.8 92 32 102/46 (64) 97 07/12/19 04:00 28 07/12/19 04:00 95 07/12/19 03:59 101/43 07/12/19 03:58 101/43 07/12/19 03:52 92 31 101/43 (62) 96 07/12/19 03:30 93 31 93/40 (57) 96 07/12/19 03:11 87 30 98 Facial 28 90 30 100 Bi-Pap 28 07/12/19 03:00 89/40 07/12/19 03:00 89 30 89/40 (56) 97 07/12/19 02:45 92 33 97/46 (63) 97 07/12/19 02:30 92 30 98/42 (60) 97 07/12/19 02:15 95 28 101/49 (66) 97 07/12/19 02:00 95 28 96/70 (79) 97 07/12/19 02:00 101/49 07/12/19 01:45 90 31 96/44 (61) 96 07/12/19 01:30 93 28 98/46 (63) 98 07/12/19 01:17 92 26 98 Facial 28 07/12/19 01:15 93 30 101/52 (68) 98 07/12/19 01:00 101/49 07/12/19 01:00 92 30 103/44 (63) 98 07/12/19 00:45 94 30 102/50 (67) 98 07/12/19 00:30 94 32 100/46 (64) 98 07/12/19 00:15 96 30 99/47 (64) 97 07/12/19 00:00 28 07/12/19 00:00 98.6 90 29 94/51 (65) 98 07/12/19 00:00 94/51 07/12/19 00:00 Nasal Cannula 2.0 07/11/19 23:45 91 31 98/51 (67) 98 07/11/19 23:30 90 29 95/44 (61) 97 07/11/19 23:15 92 31 96/50 (65) 99 07/11/19 23:10 88 25 100 Facial 28 07/11/19 23:06 89 28 100 Nasal Cannula 2.0 28 84 29 96 18/ 23:00 85 32 92/46 (61) 96 18/19 23:00 96/50 07/11/19 22:46 86 29 93/47 (62) 96 07/11/19 22:30 85 31 92/46 (61) 96 9/18/19 22:15 86 31 93/42 (59) 96 9/18/19 22:00 86/53 9/18/19 22:00 85 26 86/53 (64) 96 9/18/19 21:45 86 31 91/46 (61) 95 9/18/19 21:30 87 29 96/45 (62) 95 9/18/19 21:15 86 29 97/45 (62) 96 9/18/19 21:00 85 32 88/45 (59) 96 9/18/19 21:00 88/45 9/18/19 20:59 86 28 88/44 (59) 96 9/18/19 20:45 88 32 91/43 (59) 97 9/18/19 20:30 86 25 92/50 (64) 97 9/18/19 20:15 86 27 89/47 (61) 97 9/18/19 20:00 Nasal Cannula 2.0 /18/19 20:00 93 /18/19 20:00 98.6 84 28 84/41 (55) 97 /18/19 20:00 2.0 9/18/19 19:55 70/40 9/18/19 19:45 85 24 90/47 (61) 100 9/18/19 19:32 84 22 100 Nasal Cannula 1.0 24 81 21 96 9/18/19 19:31 96 Nasal Cannula 1.0 24 9/18/19 19:30 83 25 77/45 (56) 96 9/18/19 19:23 83 26 84/41 (55) 98 9/18/19 19:18 83 28 81/42 (55) 97 9/18/19 19:15 83 28 68/52 (57) 96 9/18/19 19:14 83 29 80/31 (47) 96 9/18/19 19:00 81 26 83/42 (56) 96 9/18/19 18:00 79 22 96/40 (58) 96 9/18/19 17:00 83 26 94/37 (56) 94 9/18/19 16:00 98.5 87 28 86/45 (59) 96 9/18/19 16:00 2.0 9/18/19 16:00 Nasal Cannula 2.0 /18/19 16:00 84 9/18/19 15:00 83 25 86/39 (55) 96 07/11/19 14:53 106/38 07/11/19 14:00 85 25 106/38 (60) 97 07/11/19 13:00 85 23 90/37 (54) 97 07/11/19 12:00 82 07/11/19 12:00 98.0 84 19 93/34 (53) 97 07/11/19 12:00 Nasal Cannula 2.0 07/11/19 12:00 2.0 07/11/19 11:00 84 24 97/38 (57) 98 07/11/19 10:00 85 25 89/45 (60) 98 07/11/19 09:00 85 25 90/43 (59) 97 07/11/19 08:00 88 07/11/19 08:00 98.5 86 22 93/35 (54) 94 07/11/19 08:00 2.0 07/11/19 07:53 Nasal Cannula 2.0 07/11/19 07:22 87 25 88/39 (55) 98 07/11/19 07:05 85 29 92/40 (57) 100 07/11/19 06:57 100 Nasal Cannula 3.0 32 07/11/19 06:57 85 26 100 Nasal Cannula 3.0 32 84 24 100 07/11/19 06:00 84 24 95/43 (60) 100 07/11/19 05:00 83 25 90/40 (57) 100 07/11/19 05:00 84 25 100 Facial 28 07/11/19 04:03 81 27 100 Bi-Pap 28 07/11/19 04:00 Bi-pap 07/11/19 04:00 28 07/11/19 04:00 83 07/11/19 04:00 99.2 82 25 90/40 (57) 100 07/11/19 03:53 81 23 100 07/11/19 03:51 81 23 100 Facial 28 07/11/19 03:00 85 23 102/41 (61) 100 07/11/19 02:00 85 25 108/37 (60) 100 07/11/19 01:07 89 25 103/45 (64) 100 07/11/19 01:03 89 31 88/61 (70) 100 07/11/19 01:00 88 25 90/65 (73) 100 9/18/19 00:38 89 30 99 Facial 28 07/11/19 00:00 28 07/11/19 00:00 90 07/11/19 00:00 Bi-pap 07/11/19 00:00 99.0 91 23 144/127 (133) 100 07/10/19 23:04 82 28 98 Facial 28 07/10/19 23:03 82 22 98 Nasal Cannula 2.0 28 07/10/19 23:00 84 28 122/80 (94) 85 07/10/19 22:53 88 33 97 07/10/19 22:00 87 28 99/43 (61) 100 07/10/19 21:00 89 32 95/45 (62) 99 07/10/19 20:00 Nasal Cannula 2.0 07/10/19 20:00 99.1 88 32 102/47 (65) 100 07/10/19 20:00 2.0 07/10/19 20:00 85 07/10/19 19:37 86 22 100 Nasal Cannula 2.0 28 07/10/19 19:36 87 33 99/41 (60) 98 07/10/19 19:27 84 23 98 07/10/19 19:26 98 Nasal Cannula 2.0 28 07/10/19 19:20 102/47 07/10/19 19:09 81 22 89/40 (56) 100 07/10/19 19:00 84 30 87/48 (61) 95 07/10/19 18:00 85 27 96/45 (62) 99 07/10/19 17:00 85 29 100/42 (61) 98 07/10/19 17:00 87 28 93/46 (62) 97 07/10/19 16:00 98.7 85 29 100/42 (61) 98 07/10/19 16:00 Nasal Cannula 2.0 07/10/19 16:00 85 07/10/19 15:00 85 30 89/45 (60) 97 Intake and Output 07/11/19 07/12/19 19:00 07:00 Intake Total 810 ml 788.125 ml Output Total 700 ml 1000 ml Balance 110 ml -211.875 ml Free Water 440 ml 370 ml IV Total 150 ml 323.125 ml Tube Feeding 200 ml 95 ml Other 20 ml Output Urine Total 0 ml 0 ml Stool Total 700 ml 1000 ml Labs Test 07/09/19 17:00 07/10/19 04:00 07/11/19 04:00 07/12/19 04:10 Random Vancomycin Level 21.5 ug/mL White Blood Count 30.1 K/UL (4.8-10.8) 33.5 K/UL (4.8-10.8) Red Blood Count 2.30 M/UL (4.70-6.10) 2.49 M/UL (4.70-6.10) Hemoglobin 7.5 G/DL (14.2-18.0) 7.8 G/DL (14.2-18.0) Hematocrit 23.0 % (42.0-52.0) 25.3 % (42.0-52.0) Mean Corpuscular Volume 100 FL (80-99) 102 FL (80-99) Mean Corpuscular Hemoglobin 32.4 PG (27.0-31.0) 31.2 PG (27.0-31.0) Mean Corpuscular Hemoglobin Concent 32.5 G/DL (32.0-36.0) 30.7 G/DL (32.0-36.0) Red Cell Distribution Width 22.8 % (11.6-14.8) 24.6 % (11.6-14.8) Platelet Count 128 K/UL (150-450) 149 K/UL (150-450) Mean Platelet Volume 10.7 FL (6.5-10.1) 8.5 FL (6.5-10.1) Neutrophils (%) (Auto) % (45.0-75.0) % (45.0-75.0) Lymphocytes (%) (Auto) % (20.0-45.0) % (20.0-45.0) Monocytes (%) (Auto) % (1.0-10.0) % (1.0-10.0) Eosinophils (%) (Auto) % (0.0-3.0) % (0.0-3.0) Basophils (%) (Auto) % (0.0-2.0) % (0.0-2.0) Differential Total Cells Counted 100 100 Neutrophils % (Manual) 72 % (45-75) 83 % (45-75) Lymphocytes % (Manual) 7 % (20-45) 3 % (20-45) Monocytes % (Manual) 6 % (1-10) 9 % (1-10) Eosinophils % (Manual) 0 % (0-3) 1 % (0-3) Basophils % (Manual) 0 % (0-2) 0 % (0-2) Metamyelocytes % 2 % (0-0) Myelocytes % 2 % (0-0) Band Neutrophils 11 % (0-8) 4 % (0-8) Platelet Estimate Decreased Adequate Platelet Morphology Normal Normal Anisocytosis 2+ 3+ Macrocytosis 1+ 1+ Sodium Level 149 MMOL/L (136-145) 151 MMOL/L (136-145) 152 MMOL/L (136-145) Potassium Level 2.8 MMOL/L (3.5-5.1) 3.1 MMOL/L (3.5-5.1) 3.8 MMOL/L (3.5-5.1) Chloride Level 110 MMOL/L (98-107) 113 MMOL/L (98-107) 114 MMOL/L (98-107) Carbon Dioxide Level 21 MMOL/L (21-32) 18 MMOL/L (21-32) 15 MMOL/L (21-32) Anion Gap 17 mmol/L (5-15) 20 mmol/L (5-15) 23 mmol/L (5-15) Blood Urea Nitrogen 57 mg/dL (7-18) 70 mg/dL (7-18) 89 mg/dL (7-18) Creatinine 7.5 MG/DL (0.55-1.30) 9.1 MG/DL (0.55-1.30) 10.5 MG/DL (0.55-1.30) Estimat Glomerular Filtration Rate 8.1 mL/min (>60) 6.5 mL/min (>60) 5.5 mL/min (>60) Glucose Level 122 MG/DL (74-106) 116 MG/DL (74-106) 141 MG/DL (74-106) Calcium Level 7.9 MG/DL (8.5-10.1) 7.7 MG/DL (8.5-10.1) 7.6 MG/DL (8.5-10.1) Phosphorus Level 5.5 MG/DL (2.5-4.9) 7.0 MG/DL (2.5-4.9) Magnesium Level 2.4 MG/DL (1.8-2.4) Total Bilirubin 35.9 MG/DL (0.2-1.0) 35.9 MG/DL (0.2-1.0) 38.4 MG/DL (0.2-1.0) Direct Bilirubin 28.6 MG/DL (0.0-0.3) 28.4 MG/DL (0.0-0.3) 30.3 MG/DL (0.0-0.3) Aspartate Amino Transf (AST/SGOT) 202 U/L (15-37) 183 U/L (15-37) 190 U/L (15-37) Alanine Aminotransferase (ALT/SGPT) 20 U/L (12-78) 9 U/L (12-78) 13 U/L (12-78) Alkaline Phosphatase 263 U/L (46-116) 256 U/L (46-116) 285 U/L (46-116) Total Protein 4.9 G/DL (6.4-8.2) 4.9 G/DL (6.4-8.2) 5.3 G/DL (6.4-8.2) Albumin 1.6 G/DL (3.4-5.0) 1.6 G/DL (3.4-5.0) 1.6 G/DL (3.4-5.0) Globulin 3.3 g/dL 3.3 g/dL 3.8 g/dL Albumin/Globulin Ratio 0.5 (1.0-2.7) 0.5 (1.0-2.7) 0.4 (1.0-2.7) Lipase 369 U/L (73-393) Uric Acid 14.2 MG/DL (2.6-7.2) Ammonia 48 umol/L (11-32) 278 umol/L (11-32) Polychromasia 1+ Hypochromasia 1+ C-Reactive Protein, Quantitative 15.2 mg/dL (0.00-0.90) Height (Feet): 5 Height (Inches): 9.00 Weight (Pounds): 229 Objective Physical Exam: Vitals: reviewed General Appearance: NAD HEENT: normocephalic, atraumatic ++ icterus jaundice, ng+ Neck: non-tender, normal alignment Respiratory/Chest: normal breath sounds bilaterally++ nc, BIPAP+ Cardiovascular/Chest: normal peripheral pulses, normal rate Abdomen: normal bowel sounds, soft,+ peg ++ ascites Extremities: normal range of motion Marty Kebede MD Jul 12, 2019 14:54
--- NOTE | 2019-07-12 16:48 | Pulmonolgy Critical Care Note ---
Critical Care - Asmt/Plan Assessment/Plan: Pulmonary CCM Progress Note HPI This is a 39-year-old male who is an alcoholic with significant fatty liver on abdominal CT and alcoholic hepatitis, liver failure c/b multiorgan failure. He has been drinking heavily for 3 months straight, having stopped drinking [employer]. Noted to have Hepatic Encephalopathy and Hepatorenal Syndrome. Had significant hypernatremia, hypokalemia and acidosis, now on HD, s/p Paracentesis previously, NGAY On NC, BiPAP PRN, NGT, on Lactulose On Hemodialysis for worsening acidosis, uremia More interactive today BP stable, Midodrine, PRN levophed to maintain BP Allergies: No Known Allergies Past Medical History: Alcohol abuse All Other Systems: negative except mentioned in HPI Physical Exam Vital Signs Noted General Appearance: Jaundiced, awake Head: normocephalic, atraumatic, HD catheter Eyes: bilateral eye PERRL, bilateral eye EOMI, bilateral eye scleral icterus ENT: moist mm Neck: no masses, no LN Respiratory: chest non-tender, lungs clear, normal breath sounds Cardiovascular: regular rate, rhythm, Normal HS1, HS2, no murmur, tachycardia Gastrointestinal: Obese, hepatomegaly, moderate distension, no mass, no rebound Musculoskeletal: moves all limbs Neurologic: responds to commands, awake Skin: jaundiced, mild edema Impression: Alcoholic hepatitis/fatty liver Liver failure Severe Sepsis previously, ID following Possible Cirrhosis Hepatorenal syndrome - worsening renal function - on HD Multiorgan Failure Poor prognosis Possible Portal Hypertension Hypernatremia improving Pancreatitis, alcoholic, acute Anemia Plan ICU management NPO except meds/NGT feeds Antibiotics per ID Aspiration precautions BiPAP PRN NC O2 GI/Renal following HD per Nephrology Pressors PRN Transfuse PRN Thiamine Monitor labs Adjust FIO2 - sats 90-96% Patient has extremely poor prognosis Ongoing attempts Labs: noted EKG: Rate: tachycardiac Rhythm: NSR ST Segments: other - NSST changes Chest X-Ray: no significant change, hypoventilatory exam, no consolidation, no effusion, no pneumothorax, no acute cardiopulmonary disease CT abdomen pelvis: Severely enlarged liver and fatty liver. Mild ascites. Critical Care - Objective Last 24 Hour Vital Signs Date Time Temp Pulse Resp B/P (MAP) Pulse Ox O2 Delivery O2 Flow Rate FiO2 07/12/19 16:33 103/52 07/12/19 16:00 2.0 07/12/19 16:00 Nasal Cannula 2.0 07/12/19 16:00 99.0 89 29 103/52 (69) 97 07/12/19 16:00 89 07/12/19 15:30 86 27 78/63 (68) 100 07/12/19 15:29 84 30 97 07/12/19 15:00 86 28 107/48 (67) 97 07/12/19 14:30 86 28 98/54 (69) 97 07/12/19 14:00 86 27 94/47 (63) 94 07/12/19 13:30 84 26 97/49 (65) 94 07/12/19 13:00 85 28 99/51 (67) 95 07/12/19 12:57 93/52 07/12/19 12:30 85 24 93/52 (66) 95 07/12/19 12:00 2.0 07/12/19 12:00 97.8 86 24 116/61 (79) 95 07/12/19 12:00 85 07/12/19 12:00 Nasal Cannula 2.0 07/12/19 11:54 101/56 07/12/19 11:30 84 26 105/56 (72) 98 07/12/19 11:29 86 24 100 Nasal Cannula 2.0 28 07/12/19 11:19 83 20 96 07/12/19 11:00 83 25 101/56 (71) 97 07/12/19 10:30 83 23 94/54 (67) 98 07/12/19 10:00 85 26 103/46 (65) 98 07/12/19 09:30 87 24 76/48 (57) 98 07/12/19 09:00 89 25 99/52 (68) 99 07/12/19 08:30 94 28 90/69 (76) 98 07/12/19 08:00 100.0 89 32 90/47 (61) 97 07/12/19 08:00 Nasal Cannula 2.0 07/12/19 08:00 2.0 07/12/19 08:00 90 07/12/19 07:35 92 28 100 Nasal Cannula 2.0 28 07/12/19 07:30 92 28 106/48 (67) 99 07/12/19 07:27 94 Nasal Cannula 2.0 28 07/12/19 07:25 89 35 94 07/12/19 07:15 92 32 96/50 (65) 96 07/12/19 07:00 91 30 103/48 (66) 95 07/12/19 07:00 96/50 07/12/19 06:45 89 30 95/47 (63) 95 07/12/19 06:30 91 28 98/52 (67) 93 07/12/19 06:15 98.8 90 30 90/59 (69) 94 07/12/19 06:00 93 32 96/46 (63) 96 07/12/19 06:00 90/59 07/12/19 05:45 92 30 102/50 (67) 94 07/12/19 05:30 92 29 103/48 (66) 97 07/12/19 05:15 95 34 105/50 (68) 97 07/12/19 05:00 99/44 07/12/19 05:00 91 30 99/44 (62) 97 07/12/19 04:45 91 29 99/48 (65) 97 07/12/19 04:30 95 30 101/47 (65) 97 07/12/19 04:15 93 31 106/47 (66) 96 07/12/19 04:00 Nasal Cannula 2.0 07/12/19 04:00 99.8 92 32 102/46 (64) 97 07/12/19 04:00 28 07/12/19 04:00 95 07/12/19 03:59 101/43 07/12/19 03:58 101/43 07/12/19 03:52 92 31 101/43 (62) 96 07/12/19 03:30 93 31 93/40 (57) 96 07/12/19 03:11 87 30 98 Facial 28 90 30 100 Bi-Pap 28 07/12/19 03:00 89/40 07/12/19 03:00 89 30 89/40 (56) 97 07/12/19 02:45 92 33 97/46 (63) 97 07/12/19 02:30 92 30 98/42 (60) 97 07/12/19 02:15 95 28 101/49 (66) 97 07/12/19 02:00 95 28 96/70 (79) 97 07/12/19 02:00 101/49 07/12/19 01:45 90 31 96/44 (61) 96 07/12/19 01:30 93 28 98/46 (63) 98 07/12/19 01:17 92 26 98 Facial 28 07/12/19 01:15 93 30 101/52 (68) 98 07/12/19 01:00 101/49 07/12/19 01:00 92 30 103/44 (63) 98 07/12/19 00:45 94 30 102/50 (67) 98 07/12/19 00:30 94 32 100/46 (64) 98 07/12/19 00:15 96 30 99/47 (64) 97 07/12/19 00:00 28 07/12/19 00:00 98.6 90 29 94/51 (65) 98 07/12/19 00:00 94/51 07/12/19 00:00 Nasal Cannula 2.0 07/11/19 23:45 91 31 98/51 (67) 98 07/11/19 23:30 90 29 95/44 (61) 97 07/11/19 23:15 92 31 96/50 (65) 99 07/11/19 23:10 88 25 100 Facial 28 07/11/19 23:06 89 28 100 Nasal Cannula 2.0 28 84 29 96 07/11/19 23:00 85 32 92/46 (61) 96 19 23:00 96/50 07/11/19 22:46 86 29 93/47 (62) 96 1819 22:30 85 31 92/46 (61) 96 19 22:15 86 31 93/42 (59) 96 18/19 22:00 86/53 18/19 22:00 85 26 86/53 (64) 96 18/19 21:45 86 31 91/46 (61) 95 18/19 21:30 87 29 96/45 (62) 95 18/19 21:15 86 29 97/45 (62) 96 18/19 21:00 85 32 88/45 (59) 96 /18/19 21:00 88/45 18/19 20:59 86 28 88/44 (59) 96 18/19 20:45 88 32 91/43 (59) 97 9/18/19 20:30 86 25 92/50 (64) 97 07/11/19 20:15 86 27 89/47 (61) 97 07/11/19 20:00 Nasal Cannula 2.0 07/11/19 20:00 93 07/11/19 20:00 98.6 84 28 84/41 (55) 97 07/11/19 20:00 2.0 07/11/19 19:55 70/40 07/11/19 19:45 85 24 90/47 (61) 100 07/11/19 19:32 84 22 100 Nasal Cannula 1.0 24 81 21 96 07/11/19 19:31 96 Nasal Cannula 1.0 24 07/11/19 19:30 83 25 77/45 (56) 96 07/11/19 19:23 83 26 84/41 (55) 98 07/11/19 19:18 83 28 81/42 (55) 97 07/11/19 19:15 83 28 68/52 (57) 96 07/11/19 19:14 83 29 80/31 (47) 96 07/11/19 19:00 81 26 83/42 (56) 96 07/11/19 18:00 79 22 96/40 (58) 96 07/11/19 17:00 83 26 94/37 (56) 94 Micro: Microbiology Date/Time Source Procedure Growth Status 07/11/19 10:56 Stool Clostridium difficile Toxin Assay - Final Complete Critical Care - Subjective ROS Limited/Unobtainable: No Sputum Amount: None Tube Feeding Amount: 25 I&O: Intake and Output 07/11/19 07/12/19 19:00 07:00 Intake Total 810 ml 788.125 ml Output Total 700 ml 1000 ml Balance 110 ml -211.875 ml Free Water 440 ml 370 ml IV Total 150 ml 323.125 ml Tube Feeding 200 ml 95 ml Other 20 ml Output Urine Total 0 ml 0 ml Stool Total 700 ml 1000 ml Quang Domingo MD Jul 12, 2019 16:48
--- NOTE | 2019-07-12 18:10 | Surgery Progress Note ---
Surgery Progress Note Subjective Additional Comments no acute events exam stable labs noted Objective Last 24 Hour Vital Signs Date Time Temp Pulse Resp B/P (MAP) Pulse Ox O2 Delivery O2 Flow Rate FiO2 07/12/19 18:00 85 23 95/52 (66) 98 07/12/19 17:00 88 21 98/53 (68) 100 07/12/19 17:00 88 20 98/53 (68) 99 07/12/19 16:33 103/52 07/12/19 16:30 92 30 101/59 (73) 97 07/12/19 16:30 91 28 108/54 (72) 100 07/12/19 16:00 2.0 07/12/19 16:00 Nasal Cannula 2.0 07/12/19 16:00 99.0 89 29 103/52 (69) 97 07/12/19 16:00 89 07/12/19 15:30 86 27 78/63 (68) 100 07/12/19 15:29 84 30 97 07/12/19 15:00 86 28 107/48 (67) 97 07/12/19 14:30 86 28 98/54 (69) 97 07/12/19 14:00 86 27 94/47 (63) 94 07/12/19 13:30 84 26 97/49 (65) 94 07/12/19 13:00 85 28 99/51 (67) 95 07/12/19 12:57 93/52 07/12/19 12:30 85 24 93/52 (66) 95 07/12/19 12:00 2.0 07/12/19 12:00 97.8 86 24 116/61 (79) 95 07/12/19 12:00 85 07/12/19 12:00 Nasal Cannula 2.0 07/12/19 11:54 101/56 07/12/19 11:30 84 26 105/56 (72) 98 07/12/19 11:29 86 24 100 Nasal Cannula 2.0 28 07/12/19 11:19 83 20 96 07/12/19 11:00 83 25 101/56 (71) 97 07/12/19 10:30 83 23 94/54 (67) 98 07/12/19 10:00 85 26 103/46 (65) 98 07/12/19 09:30 87 24 76/48 (57) 98 07/12/19 09:00 89 25 99/52 (68) 99 07/12/19 08:30 94 28 90/69 (76) 98 07/12/19 08:00 100.0 89 32 90/47 (61) 97 07/12/19 08:00 Nasal Cannula 2.0 07/12/19 08:00 2.0 07/12/19 08:00 90 07/12/19 07:35 92 28 100 Nasal Cannula 2.0 28 07/12/19 07:30 92 28 106/48 (67) 99 07/12/19 07:27 94 Nasal Cannula 2.0 28 07/12/19 07:25 89 35 94 07/12/19 07:15 92 32 96/50 (65) 96 07/12/19 07:00 91 30 103/48 (66) 95 07/12/19 07:00 96/50 07/12/19 06:45 89 30 95/47 (63) 95 07/12/19 06:30 91 28 98/52 (67) 93 07/12/19 06:15 98.8 90 30 90/59 (69) 94 07/12/19 06:00 93 32 96/46 (63) 96 07/12/19 06:00 90/59 07/12/19 05:45 92 30 102/50 (67) 94 07/12/19 05:30 92 29 103/48 (66) 97 07/12/19 05:15 95 34 105/50 (68) 97 07/12/19 05:00 99/44 07/12/19 05:00 91 30 99/44 (62) 97 07/12/19 04:45 91 29 99/48 (65) 97 07/12/19 04:30 95 30 101/47 (65) 97 07/12/19 04:15 93 31 106/47 (66) 96 07/12/19 04:00 Nasal Cannula 2.0 07/12/19 04:00 99.8 92 32 102/46 (64) 97 07/12/19 04:00 28 07/12/19 04:00 95 07/12/19 03:59 101/43 07/12/19 03:58 101/43 07/12/19 03:52 92 31 101/43 (62) 96 07/12/19 03:30 93 31 93/40 (57) 96 07/12/19 03:11 87 30 98 Facial 28 90 30 100 Bi-Pap 28 07/12/19 03:00 89/40 07/12/19 03:00 89 30 89/40 (56) 97 07/12/19 02:45 92 33 97/46 (63) 97 07/12/19 02:30 92 30 98/42 (60) 97 07/12/19 02:15 95 28 101/49 (66) 97 07/12/19 02:00 95 28 96/70 (79) 97 07/12/19 02:00 101/49 07/12/19 01:45 90 31 96/44 (61) 96 07/12/19 01:30 93 28 98/46 (63) 98 07/12/19 01:17 92 26 98 Facial 28 07/12/19 01:15 93 30 101/52 (68) 98 07/12/19 01:00 101/49 07/12/19 01:00 92 30 103/44 (63) 98 07/12/19 00:45 94 30 102/50 (67) 98 07/12/19 00:30 94 32 100/46 (64) 98 07/12/19 00:15 96 30 99/47 (64) 97 07/12/19 00:00 28 07/12/19 00:00 98.6 90 29 94/51 (65) 98 07/12/19 00:00 94/51 07/12/19 00:00 Nasal Cannula 2.0 07/11/19 23:45 91 31 98/51 (67) 98 07/11/19 23:30 90 29 95/44 (61) 97 07/11/19 23:15 92 31 96/50 (65) 99 07/11/19 23:10 88 25 100 Facial 28 07/11/19 23:06 89 28 100 Nasal Cannula 2.0 28 84 29 96 07/11/19 23:00 85 32 92/46 (61) 96 1819 23:00 96/50 07/11/19 22:46 86 29 93/47 (62) 96 07/11/19 22:30 85 31 92/46 (61) 96 07/11/19 22:15 86 31 93/42 (59) 96 07/11/19 22:00 86/53 07/11/19 22:00 85 26 86/53 (64) 96 07/11/19 21:45 86 31 91/46 (61) 95 07/11/19 21:30 87 29 96/45 (62) 95 07/11/19 21:15 86 29 97/45 (62) 96 07/11/19 21:00 85 32 88/45 (59) 96 07/11/19 21:00 88/45 07/11/19 20:59 86 28 88/44 (59) 96 07/11/19 20:45 88 32 91/43 (59) 97 07/11/19 20:30 86 25 92/50 (64) 97 07/11/19 20:15 86 27 89/47 (61) 97 07/11/19 20:00 Nasal Cannula 2.0 07/11/19 20:00 93 07/11/19 20:00 98.6 84 28 84/41 (55) 97 07/11/19 20:00 2.0 07/11/19 19:55 70/40 07/11/19 19:45 85 24 90/47 (61) 100 07/11/19 19:32 84 22 100 Nasal Cannula 1.0 24 81 21 96 07/11/19 19:31 96 Nasal Cannula 1.0 24 07/11/19 19:30 83 25 77/45 (56) 96 07/11/19 19:23 83 26 84/41 (55) 98 07/11/19 19:18 83 28 81/42 (55) 97 07/11/19 19:15 83 28 68/52 (57) 96 07/11/19 19:14 83 29 80/31 (47) 96 07/11/19 19:00 81 26 83/42 (56) 96 I&O Intake and Output 07/11/19 07/12/19 19:00 07:00 Intake Total 810 ml 788.125 ml Output Total 700 ml 1000 ml Balance 110 ml -211.875 ml Free Water 440 ml 370 ml IV Total 150 ml 323.125 ml Tube Feeding 200 ml 95 ml Other 20 ml Output Urine Total 0 ml 0 ml Stool Total 700 ml 1000 ml Dressing: dry Wound: clean Cardiovascular: RSR Respiratory: clear Abdomen: soft, non-tender, decreased bowel sounds Extremities: no cyanosis, other Laboratory Tests Test 07/12/19 04:10 White Blood Count 33.5 K/UL (4.8-10.8) *H Red Blood Count 2.49 M/UL (4.70-6.10) L Hemoglobin 7.8 G/DL (14.2-18.0) L Hematocrit 25.3 % (42.0-52.0) L Mean Corpuscular Volume 102 FL (80-99) H Mean Corpuscular Hemoglobin 31.2 PG (27.0-31.0) H Mean Corpuscular Hemoglobin Concent 30.7 G/DL (32.0-36.0) L Red Cell Distribution Width 24.6 % (11.6-14.8) H Platelet Count 149 K/UL (150-450) L Mean Platelet Volume 8.5 FL (6.5-10.1) Neutrophils (%) (Auto) % (45.0-75.0) Lymphocytes (%) (Auto) % (20.0-45.0) Monocytes (%) (Auto) % (1.0-10.0) Eosinophils (%) (Auto) % (0.0-3.0) Basophils (%) (Auto) % (0.0-2.0) Differential Total Cells Counted 100 Neutrophils % (Manual) 83 % (45-75) H Lymphocytes % (Manual) 3 % (20-45) L Monocytes % (Manual) 9 % (1-10) Eosinophils % (Manual) 1 % (0-3) Basophils % (Manual) 0 % (0-2) Band Neutrophils 4 % (0-8) Platelet Estimate Adequate Platelet Morphology Normal Polychromasia 1+ Hypochromasia 1+ Anisocytosis 3+ Macrocytosis 1+ Sodium Level 152 MMOL/L (136-145) H Potassium Level 3.8 MMOL/L (3.5-5.1) Chloride Level 114 MMOL/L (98-107) H Carbon Dioxide Level 15 MMOL/L (21-32) L Anion Gap 23 mmol/L (5-15) H Blood Urea Nitrogen 89 mg/dL (7-18) H Creatinine 10.5 MG/DL (0.55-1.30) H Estimat Glomerular Filtration Rate 5.5 mL/min (>60) Glucose Level 141 MG/DL (74-106) H Calcium Level 7.6 MG/DL (8.5-10.1) L Total Bilirubin 38.4 MG/DL (0.2-1.0) H Direct Bilirubin 30.3 MG/DL (0.0-0.3) H Aspartate Amino Transf (AST/SGOT) 190 U/L (15-37) H Alanine Aminotransferase (ALT/SGPT) 13 U/L (12-78) Alkaline Phosphatase 285 U/L (46-116) H Ammonia 278 umol/L (11-32) H C-Reactive Protein, Quantitative 15.2 mg/dL (0.00-0.90) H Total Protein 5.3 G/DL (6.4-8.2) L Albumin 1.6 G/DL (3.4-5.0) L Globulin 3.8 g/dL Albumin/Globulin Ratio 0.4 (1.0-2.7) L Plan Problems: (1) Pancreatitis, alcoholic, acute Assessment & Plan: Acute alcoholic pancreatitis. Levels fluctuating. Plan to check levels tomorrow Treat medically and conservatively for now If worsening leukocytosis may consider CT scan (2) Hepatorenal syndrome Assessment & Plan: Chronic liver disease acute, with acute pancreatitis and potential about her renal syndrome as noted. Currently stable treat conservatively no acute surgical intervention recommended Unfortunately invasive techniques not available at this facility Continue with ICU care and management (3) Respiratory failure (4) skin intergrety Assessment & Plan: Pt noted to have dry eschar bridge of nose. Periwound without erythema or fluctuance. Shearing noted to R and L clefts of buttocks. No exudate noted. Both heels firm and blanchable. Tx.Plan: Swab bridge of nose with Benzoin Tincture Twice Daily. Apply Moisture Barrier Paste to buttocks with each perineal care. Apply Cavilon Skin Barrier to both heels. Cover each heel with Optifoam drsg. Change every 7 days and prn. APM/MATTHEW mattress overlay. Reposition at least every 2hours or as tolerated. Off-load heels with pillow. (5) End-stage liver disease Assessment & Plan: DAILY ESTIMATED NEEDS: Needs based on Liver dz, 79kg adj 25-30 kcals/kg 4488-1801 total kcals 1-1.5 (w/ HD 1.2-1.8) g protein/kg 79-119g (w/ HD 95-142g) g total protein Fluid per MD NUTRITION DIAGNOSIS: * Decreased sodium and fat needs r/t liver disease, cirrhosis, acute pancreatitis as evidenced by Abd US, elev T bili (33.5), pt is jaundiced, fatty liver, elev ammonia and AST, elev lipse (643), h/o etoh abuse, adm w/ elev serum alcohol. * Swallowing difficulty R/T confusion, dysphagia as evidenced by NGT feeding initiated, seen by GRE TUTOR w/ rec to continue nonoral feeds at this time. CURRENT TF: NEPRO @45 + PS x1 PO DIET RECOMMENDATIONS: WHEN SAFE FOR ORAL FEEDING -> LOW NA/ LOW FAT (texture per GRE TUTOR) ENTERAL NUTRITION RECOMMENDATIONS: MAINTAIN NEPRO W/ DIALYSIS TXT: Nepro @45ml/hr x24 hrs + PS x1 to provide 1080ml, 1944 kcal, 87g pro, 785ml free H20 * Maintain Nepro @45ml/hr as tolerated. * Add Prosource x1 pack daily to better meet est pro needs on HD * HOB over 30 degrees/ water flush per MD ADDITIONAL RECOMMENDATIONS: 1) Calibrated bedscale wt 2) Monitor for ability to start oral feeding 3) Check lytes daily 4) Rec to re-add thiamine + Folate daily, add MVI x 1 5) REC TF CHANGE TO NEPRO W/ DIALYSIS TXT 6) Monitor BGs closely, need for hypoglycemics (6) Acute alcoholic intoxication Kennedy Ellison Jul 12, 2019 18:10
[2019-07-12] MEDS: Dyna-Hex 2% Top Sol 2oz TOPIC SCH (20:14)
[2019-07-12] MEDS: Norepinephrine Bitartrate 8 MG in D5W 500ml 550 ML IV SCH (21:30)
[2019-07-13] VITALS (67 sets, daily range): BP systolic 74–117; BP diastolic 34–91
[2019-07-13] MEDS: Albuterol/Ipratropium 3ml neb HHN SCH ×6 (03:00→23:00)
[2019-07-13 05:05] LABS: HEMATOCRIT 20.6 % (42.0-52.0); MEAN CORPUSCULAR VOLUME 99 FL (80-99); PLATELET COUNT 152 K/UL (150-450); RED BLOOD COUNT 2.07 M/UL (4.70-6.10); RED CELL DISTRIBUTION WIDTH 24.2 % (11.6-14.8)
[2019-07-13 05:22] LABS: WHITE BLOOD COUNT 44.1 K/UL (4.8-10.8)
[2019-07-13 05:23] LABS: HEMOGLOBIN 6.4 G/DL (14.2-18.0)
[2019-07-13 05:48] LABS: ALANINE AMINOTRANSFERASE 11 U/L (12-78); ALBUMIN 1.6 G/DL (3.4-5.0); ALBUMIN/GLOBULIN RATIO 0.5 (1.0-2.7); ALKALINE PHOSPHATASE 227 U/L (46-116); ANION GAP 25 mmol/L (5-15); ASPARTATE AMINO TRANSFERASE 140 U/L (15-37); BLOOD UREA NITROGEN 97 mg/dL (7-18); CALCIUM 7.2 MG/DL (8.5-10.1); CARBON DIOXIDE 15 MMOL/L (21-32); CHLORIDE 116 MMOL/L (98-107); CREATININE 11.9 MG/DL (0.55-1.30); POTASSIUM 3.3 MMOL/L (3.5-5.1); SODIUM 155 MMOL/L (136-145)
[2019-07-13 07:02] LABS: BILIRUBIN,TOTAL 36.1 MG/DL (0.2-1.0); PHOSPHORUS 9.6 MG/DL (2.5-4.9)
[2019-07-13 07:04] LABS: BILIRUBIN,DIRECT 28.7 MG/DL (0.0-0.3)
[2019-07-13] MEDS: Thiamine 100mg tab ORAL SCH (08:29)
[2019-07-13] MEDS: Lactulose 20gm/30ml UDC NG SCH ×4 (08:29→21:21)
[2019-07-13] MEDS: Cefepime HCl 1 GM in D5W 55 ML IVPB SCH (08:29)
--- NOTE | 2019-07-13 09:10 | General Progress Note ---
Assessment/Plan Problem List: (1) Pancreatitis, alcoholic, acute ICD Codes: K85.20 - Alcohol induced acute pancreatitis without necrosis or infection SNOMED: 714310043, [id number] Qualifiers: Qualified Codes: K85.20 - Alcohol induced acute pancreatitis without necrosis or infection (2) Acute alcoholic intoxication ICD Codes: F10.929 - Alcohol use, unspecified with intoxication, unspecified SNOMED: 33038857, 2565522 Qualifiers: Qualified Codes: F10.920 - Alcohol use, unspecified with intoxication, uncomplicated (3) Anemia ICD Codes: D64.9 - Anemia, unspecified SNOMED: 416219458 Qualifiers: Qualified Codes: D64.9 - Anemia, unspecified Status: stable, progressing, deteriorating Assessment/Plan: NGTF>>on hold due to GIB start octreotide and protonix transfuse 2 units PRBC transfuse one unit FFP EGD on hold patient not stable repeat labs fu nephrology cont lactulose xifaxan prn paracentesis>> repeated 800 cc last one repeat KUB>> ? ileus poor prognosis Subjective ROS Limited/Unobtainable: No Allergies: Coded Allergies: No Known Allergies (Unverified , 06/20/19) Objective Last 24 Hour Vital Signs Date Time Temp Pulse Resp B/P (MAP) Pulse Ox O2 Delivery O2 Flow Rate FiO2 07/13/19 08:30 112/54 07/13/19 08:04 97 Nasal Cannula 2.0 28 07/13/19 07:03 80 25 100 Bi-Pap 28 84 27 100 07/13/19 06:53 84 27 100 Facial 28 Bi-Pap 07/13/19 06:30 79 21 84/69 (74) 100 07/13/19 06:00 90/37 07/13/19 06:00 100/39 07/13/19 06:00 80 21 95/38 (57) 100 07/13/19 05:30 79 24 88/37 (54) 99 07/13/19 05:00 88/42 07/13/19 05:00 77 21 89/40 (56) 100 07/13/19 04:30 78 21 97/40 (59) 100 07/13/19 04:00 78 07/13/19 04:00 97.8 79 23 90/44 (59) 100 07/13/19 04:00 Nasal Cannula 2.0 07/13/19 04:00 96/38 07/13/19 04:00 28 07/13/19 03:04 81 24 100 Bi-Pap 28 79 25 100 07/13/19 03:03 79 25 100 Facial 28 79 25 100 Bi-Pap 28 07/13/19 03:00 92/39 07/13/19 02:00 93/47 07/13/19 01:00 78 25 100 Facial 28 07/13/19 01:00 95/42 07/13/19 01:00 81 24 95/42 (59) 99 07/13/19 00:30 82 25 93/48 (63) 99 07/13/19 00:00 98.2 82 24 93/52 (66) 99 07/13/19 00:00 93/52 07/13/19 00:00 Nasal Cannula 2.0 07/12/19 23:30 83 30 100 Facial 28 90 30 100 Bi-Pap 28 07/12/19 23:30 28 07/12/19 23:30 82 24 99/50 (66) 99 07/12/19 23:30 85 26 100 Bi-Pap 28 83 30 100 07/12/19 23:00 82 25 92/43 (59) 97 07/12/19 23:00 92/43 07/12/19 22:30 84 28 91/39 (56) 97 07/12/19 22:00 84 27 89/41 (57) 97 07/12/19 22:00 89/41 07/12/19 22:00 2.0 07/12/19 21:30 83 27 91/42 (58) 98 07/12/19 21:30 85/67 07/12/19 21:00 84 27 91/46 (61) 97 07/12/19 20:30 83 25 87/41 (56) 97 07/12/19 20:00 82/63 07/12/19 20:00 98.0 84 25 82/63 (69) 99 07/12/19 20:00 2.0 07/12/19 20:00 84 07/12/19 20:00 Nasal Cannula 2.0 07/12/19 19:45 83 25 97 Nasal Cannula 2.0 87 19 97 07/12/19 19:45 97 Nasal Cannula 2.0 28 07/12/19 19:30 86 28 74/39 (51) 97 07/12/19 19:00 84 26 88/41 (57) 98 07/12/19 18:30 88 31 96/48 (64) 96 07/12/19 18:00 85 23 95/52 (66) 98 07/12/19 17:00 88 21 98/53 (68) 100 07/12/19 17:00 88 20 98/53 (68) 99 07/12/19 16:33 103/52 07/12/19 16:30 92 30 101/59 (73) 97 07/12/19 16:30 91 28 108/54 (72) 100 07/12/19 16:00 2.0 07/12/19 16:00 Nasal Cannula 2.0 07/12/19 16:00 99.0 89 29 103/52 (69) 97 07/12/19 16:00 89 07/12/19 15:39 82 22 100 Nasal Cannula 2.0 28 07/12/19 15:30 86 27 78/63 (68) 100 07/12/19 15:29 84 30 97 07/12/19 15:00 86 28 107/48 (67) 97 07/12/19 14:30 86 28 98/54 (69) 97 07/12/19 14:00 86 27 94/47 (63) 94 07/12/19 13:30 84 26 97/49 (65) 94 07/12/19 13:00 85 28 99/51 (67) 95 07/12/19 12:57 93/52 07/12/19 12:30 85 24 93/52 (66) 95 07/12/19 12:00 2.0 07/12/19 12:00 97.8 86 24 116/61 (79) 95 07/12/19 12:00 85 07/12/19 12:00 Nasal Cannula 2.0 07/12/19 11:54 101/56 07/12/19 11:30 84 26 105/56 (72) 98 07/12/19 11:29 86 24 100 Nasal Cannula 2.0 28 07/12/19 11:19 83 20 96 07/12/19 11:00 83 25 101/56 (71) 97 07/12/19 10:30 83 23 94/54 (67) 98 07/12/19 10:00 85 26 103/46 (65) 98 07/12/19 09:30 87 24 76/48 (57) 98 Intake and Output 07/12/19 07/13/19 19:00 07:00 Intake Total 632.5 ml 844.19 ml Output Total 1000 ml 800 ml Balance -367.5 ml 44.19 ml Intake Oral 100 ml Free Water 100 ml IV Total 532.5 ml 644.19 ml Tube Feeding 100 ml Output Urine Total 0 ml 0 ml Stool Total 1000 ml 800 ml Laboratory Tests 07/13/19 04:10: White Blood Count 44.1*H, Red Blood Count 2.07L, Hemoglobin 6.4*L, Hematocrit 20.6L, Mean Corpuscular Volume 99, Mean Corpuscular Hemoglobin 31.1H, Mean Corpuscular Hemoglobin Concent 31.3L, Red Cell Distribution Width 24.2H, Platelet Count 152, Mean Platelet Volume 10.1, Neutrophils (%) (Auto) , Lymphocytes (%) (Auto) , Monocytes (%) (Auto) , Eosinophils (%) (Auto) , Basophils (%) (Auto) , Differential Total Cells Counted 100, Neutrophils % ( Manual) 85H, Lymphocytes % (Manual) 5L, Monocytes % (Manual) 5, Eosinophils % ( Manual) 4H, Basophils % (Manual) 0, Band Neutrophils 1, Platelet Estimate Adequate, Platelet Morphology Normal, Polychromasia 1+, Hypochromasia 2+, Anisocytosis 3+, Sodium Level 155H, Potassium Level 3.3L, Chloride Level 116H, Carbon Dioxide Level 15L, Anion Gap 25H, Blood Urea Nitrogen 97H, Creatinine 11.9H, Estimat Glomerular Filtration Rate 4.8, Glucose Level 151H, Uric Acid 18.2H, Calcium Level 7.2L, Phosphorus Level 9.6H, Magnesium Level 3.0H, Total Bilirubin 36.1H, Direct Bilirubin 28.7H, Aspartate Amino Transf (AST/SGOT) 140H , Alanine Aminotransferase (ALT/SGPT) 11L, Alkaline Phosphatase 227H, Total Protein 4.7L, Albumin 1.6L, Globulin 3.1, Albumin/Globulin Ratio 0.5L Height (Feet): 5 Height (Inches): 9.00 Weight (Pounds): 232 General Appearance: lethargic EENT: scleral icterus Neck: non-tender, normal alignment, supple Abdomen: normal bowel sounds, non tender, soft Extremities: non-tender Merlin Esposito MD Jul 13, 2019 09:10
[2019-07-13] MEDS: Norepinephrine Bitartrate 8 MG in D5W 500ml 550 ML IV SCH ×3 (09:25→19:43)
--- NOTE | 2019-07-13 09:35 | Nephrology Progress Note ---
Assessment/Plan Problem List: (1) End-stage liver disease (2) Hepatorenal syndrome (3) Pancreatitis, alcoholic, acute (4) Acute alcoholic intoxication (5) Anemia (6) Respiratory failure (7) Hypernatremia Assessment Acute alcoholic intoxication End-stage liver disease Hepatorenal syndrome Pancreatitis, alcoholic, acute Anemia Plan Hypotensive- on pressors not tolerated dialysis last time due to low BP K supplement trial paracenthesis done will attempt HD 07/13 with pressor support I CONSIDER TREATMENT OF THIS PATIENT TO BE FUTILE correct low K per orders on 06/28/19 met with Brother- Liliana zonia Reyes Insecticide Expert Brother will discuss with family regarding DNR and comfort care K and Mag and phos supplement as needed has parker NO OUTPUT has RT (rectal tube) on lactulose discussed with RN Correct lytes IV protonix lactulose Folate and Thiamin per GI transfuse per consultants Subjective ROS Limited/Unobtainable: Yes Objective Objective Last 24 Hour Vital Signs Date Time Temp Pulse Resp B/P (MAP) Pulse Ox O2 Delivery O2 Flow Rate FiO2 07/13/19 09:25 105/48 07/13/19 08:30 112/54 07/13/19 08:04 97 Nasal Cannula 2.0 28 07/13/19 07:03 80 25 100 Bi-Pap 28 84 27 100 07/13/19 06:53 84 27 100 Facial 28 Bi-Pap 07/13/19 06:30 79 21 84/69 (74) 100 07/13/19 06:00 90/37 07/13/19 06:00 100/39 07/13/19 06:00 80 21 95/38 (57) 100 07/13/19 05:30 79 24 88/37 (54) 99 07/13/19 05:00 88/42 07/13/19 05:00 77 21 89/40 (56) 100 07/13/19 04:30 78 21 97/40 (59) 100 07/13/19 04:00 78 07/13/19 04:00 97.8 79 23 90/44 (59) 100 07/13/19 04:00 Nasal Cannula 2.0 07/13/19 04:00 96/38 07/13/19 04:00 28 07/13/19 03:04 81 24 100 Bi-Pap 28 79 25 100 07/13/19 03:03 79 25 100 Facial 28 79 25 100 Bi-Pap 28 07/13/19 03:00 92/39 07/13/19 02:00 93/47 07/13/19 01:00 78 25 100 Facial 28 07/13/19 01:00 95/42 07/13/19 01:00 81 24 95/42 (59) 99 07/13/19 00:30 82 25 93/48 (63) 99 07/13/19 00:00 98.2 82 24 93/52 (66) 99 07/13/19 00:00 93/52 07/13/19 00:00 Nasal Cannula 2.0 07/12/19 23:30 83 30 100 Facial 28 90 30 100 Bi-Pap 28 07/12/19 23:30 28 07/12/19 23:30 82 24 99/50 (66) 99 07/12/19 23:30 85 26 100 Bi-Pap 28 83 30 100 07/12/19 23:00 82 25 92/43 (59) 97 07/12/19 23:00 92/43 07/12/19 22:30 84 28 91/39 (56) 97 07/12/19 22:00 84 27 89/41 (57) 97 07/12/19 22:00 89/41 07/12/19 22:00 2.0 07/12/19 21:30 83 27 91/42 (58) 98 07/12/19 21:30 85/67 07/12/19 21:00 84 27 91/46 (61) 97 07/12/19 20:30 83 25 87/41 (56) 97 07/12/19 20:00 82/63 07/12/19 20:00 98.0 84 25 82/63 (69) 99 07/12/19 20:00 2.0 07/12/19 20:00 84 07/12/19 20:00 Nasal Cannula 2.0 07/12/19 19:45 83 25 97 Nasal Cannula 2.0 28 87 19 97 07/12/19 19:45 97 Nasal Cannula 2.0 28 07/12/19 19:30 86 28 74/39 (51) 97 07/12/19 19:00 84 26 88/41 (57) 98 07/12/19 18:30 88 31 96/48 (64) 96 07/12/19 18:00 85 23 95/52 (66) 98 07/12/19 17:00 88 21 98/53 (68) 100 07/12/19 17:00 88 20 98/53 (68) 99 07/12/19 16:33 103/52 07/12/19 16:30 92 30 101/59 (73) 97 07/12/19 16:30 91 28 108/54 (72) 100 07/12/19 16:00 2.0 07/12/19 16:00 Nasal Cannula 2.0 07/12/19 16:00 99.0 89 29 103/52 (69) 97 07/12/19 16:00 89 07/12/19 15:39 82 22 100 Nasal Cannula 2.0 28 07/12/19 15:30 86 27 78/63 (68) 100 07/12/19 15:29 84 30 97 07/12/19 15:00 86 28 107/48 (67) 97 07/12/19 14:30 86 28 98/54 (69) 97 07/12/19 14:00 86 27 94/47 (63) 94 07/12/19 13:30 84 26 97/49 (65) 94 07/12/19 13:00 85 28 99/51 (67) 95 07/12/19 12:57 93/52 07/12/19 12:30 85 24 93/52 (66) 95 07/12/19 12:00 2.0 07/12/19 12:00 97.8 86 24 116/61 (79) 95 07/12/19 12:00 85 07/12/19 12:00 Nasal Cannula 2.0 07/12/19 11:54 101/56 07/12/19 11:30 84 26 105/56 (72) 98 07/12/19 11:29 86 24 100 Nasal Cannula 2.0 28 07/12/19 11:19 83 20 96 07/12/19 11:00 83 25 101/56 (71) 97 07/12/19 10:30 83 23 94/54 (67) 98 07/12/19 10:00 85 26 103/46 (65) 98 Intake and Output 07/12/19 07/13/19 19:00 07:00 Intake Total 632.5 ml 844.19 ml Output Total 1000 ml 800 ml Balance -367.5 ml 44.19 ml Intake Oral 100 ml Free Water 100 ml IV Total 532.5 ml 644.19 ml Tube Feeding 100 ml Output Urine Total 0 ml 0 ml Stool Total 1000 ml 800 ml Laboratory Tests 07/13/19 04:10: White Blood Count 44.1*H, Red Blood Count 2.07L, Hemoglobin 6.4*L, Hematocrit 20.6L, Mean Corpuscular Volume 99, Mean Corpuscular Hemoglobin 31.1H, Mean Corpuscular Hemoglobin Concent 31.3L, Red Cell Distribution Width 24.2H, Platelet Count 152, Mean Platelet Volume 10.1, Neutrophils (%) (Auto) , Lymphocytes (%) (Auto) , Monocytes (%) (Auto) , Eosinophils (%) (Auto) , Basophils (%) (Auto) , Differential Total Cells Counted 100, Neutrophils % ( Manual) 85H, Lymphocytes % (Manual) 5L, Monocytes % (Manual) 5, Eosinophils % ( Manual) 4H, Basophils % (Manual) 0, Band Neutrophils 1, Platelet Estimate Adequate, Platelet Morphology Normal, Polychromasia 1+, Hypochromasia 2+, Anisocytosis 3+, Sodium Level 155H, Potassium Level 3.3L, Chloride Level 116H, Carbon Dioxide Level 15L, Anion Gap 25H, Blood Urea Nitrogen 97H, Creatinine 11.9H, Estimat Glomerular Filtration Rate 4.8, Glucose Level 151H, Uric Acid 18.2H, Calcium Level 7.2L, Phosphorus Level 9.6H, Magnesium Level 3.0H, Total Bilirubin 36.1H, Direct Bilirubin 28.7H, Aspartate Amino Transf (AST/SGOT) 140H , Alanine Aminotransferase (ALT/SGPT) 11L, Alkaline Phosphatase 227H, Total Protein 4.7L, Albumin 1.6L, Globulin 3.1, Albumin/Globulin Ratio 0.5L Height (Feet): 5 Height (Inches): 9.00 Weight (Pounds): 232 General Appearance: lethargic EENT: other - deeply jaundiced Cardiovascular: tachycardia Respiratory/Chest: decreased breath sounds Abdomen: distended Arthur Lay MD Jul 13, 2019 09:35
[2019-07-13] MEDS: Pantoprazole Inj IVP SCH ×2 (10:26→21:22)
--- NOTE | 2019-07-13 10:43 | Surgery Progress Note ---
Surgery Progress Note Subjective Additional Comments ill appearing in ICU Objective Last 24 Hour Vital Signs Date Time Temp Pulse Resp B/P (MAP) Pulse Ox O2 Delivery O2 Flow Rate FiO2 07/13/19 10:00 83 20 98/46 (63) 98 07/13/19 09:45 83 21 100/51 (67) 97 07/13/19 09:30 83 23 95/47 (63) 98 07/13/19 09:25 105/48 07/13/19 09:15 84 21 105/48 (67) 98 07/13/19 09:00 83 21 113/47 (69) 98 07/13/19 08:45 83 21 107/48 (67) 98 07/13/19 08:30 112/54 07/13/19 08:30 82 21 110/51 (70) 98 07/13/19 08:15 80 19 89/42 (58) 99 07/13/19 08:04 97 Nasal Cannula 2.0 28 07/13/19 08:00 98.6 80 19 81/34 (50) 100 07/13/19 08:00 2.0 07/13/19 08:00 Nasal Cannula 2.0 07/13/19 07:45 79 19 82/37 (52) 97 07/13/19 07:30 81 21 116/91 (99) 100 07/13/19 07:15 85 22 100/39 (59) 100 07/13/19 07:03 80 25 100 Bi-Pap 28 84 27 100 07/13/19 07:00 84 25 97/41 (59) 100 07/13/19 06:53 84 27 100 Facial 28 Bi-Pap 07/13/19 06:30 79 21 84/69 (74) 100 07/13/19 06:00 90/37 07/13/19 06:00 100/39 07/13/19 06:00 80 21 95/38 (57) 100 07/13/19 05:30 79 24 88/37 (54) 99 07/13/19 05:00 88/42 07/13/19 05:00 77 21 89/40 (56) 100 07/13/19 04:30 78 21 97/40 (59) 100 07/13/19 04:00 78 07/13/19 04:00 97.8 79 23 90/44 (59) 100 07/13/19 04:00 Nasal Cannula 2.0 07/13/19 04:00 96/38 07/13/19 04:00 28 07/13/19 03:04 81 24 100 Bi-Pap 28 79 25 100 07/13/19 03:03 79 25 100 Facial 28 79 25 100 Bi-Pap 28 07/13/19 03:00 92/39 07/13/19 02:00 93/47 07/13/19 01:00 78 25 100 Facial 28 07/13/19 01:00 95/42 07/13/19 01:00 81 24 95/42 (59) 99 07/13/19 00:30 82 25 93/48 (63) 99 07/13/19 00:00 98.2 82 24 93/52 (66) 99 07/13/19 00:00 93/52 07/13/19 00:00 Nasal Cannula 2.0 07/12/19 23:30 83 30 100 Facial 28 90 30 100 Bi-Pap 28 07/12/19 23:30 28 07/12/19 23:30 82 24 99/50 (66) 99 07/12/19 23:30 85 26 100 Bi-Pap 28 83 30 100 07/12/19 23:00 82 25 92/43 (59) 97 07/12/19 23:00 92/43 07/12/19 22:30 84 28 91/39 (56) 97 07/12/19 22:00 84 27 89/41 (57) 97 07/12/19 22:00 89/41 07/12/19 22:00 2.0 07/12/19 21:30 83 27 91/42 (58) 98 07/12/19 21:30 85/67 07/12/19 21:00 84 27 91/46 (61) 97 07/12/19 20:30 83 25 87/41 (56) 97 07/12/19 20:00 82/63 07/12/19 20:00 98.0 84 25 82/63 (69) 99 07/12/19 20:00 2.0 07/12/19 20:00 84 07/12/19 20:00 Nasal Cannula 2.0 07/12/19 19:45 83 25 97 Nasal Cannula 2.0 28 87 19 97 07/12/19 19:45 97 Nasal Cannula 2.0 28 07/12/19 19:30 86 28 74/39 (51) 97 07/12/19 19:00 84 26 88/41 (57) 98 07/12/19 18:30 88 31 96/48 (64) 96 07/12/19 18:00 85 23 95/52 (66) 98 07/12/19 17:00 88 21 98/53 (68) 100 07/12/19 17:00 88 20 98/53 (68) 99 07/12/19 16:33 103/52 07/12/19 16:30 92 30 101/59 (73) 97 07/12/19 16:30 91 28 108/54 (72) 100 07/12/19 16:00 2.0 07/12/19 16:00 Nasal Cannula 2.0 07/12/19 16:00 99.0 89 29 103/52 (69) 97 07/12/19 16:00 89 07/12/19 15:39 82 22 100 Nasal Cannula 2.0 28 07/12/19 15:30 86 27 78/63 (68) 100 07/12/19 15:29 84 30 97 07/12/19 15:00 86 28 107/48 (67) 97 07/12/19 14:30 86 28 98/54 (69) 97 07/12/19 14:00 86 27 94/47 (63) 94 07/12/19 13:30 84 26 97/49 (65) 94 07/12/19 13:00 85 28 99/51 (67) 95 07/12/19 12:57 93/52 07/12/19 12:30 85 24 93/52 (66) 95 07/12/19 12:00 2.0 07/12/19 12:00 97.8 86 24 116/61 (79) 95 07/12/19 12:00 85 07/12/19 12:00 Nasal Cannula 2.0 07/12/19 11:54 101/56 07/12/19 11:30 84 26 105/56 (72) 98 07/12/19 11:29 86 24 100 Nasal Cannula 2.0 28 07/12/19 11:19 83 20 96 07/12/19 11:00 83 25 101/56 (71) 97 I&O Intake and Output 07/12/19 07/13/19 19:00 07:00 Intake Total 632.5 ml 844.19 ml Output Total 1000 ml 800 ml Balance -367.5 ml 44.19 ml Intake Oral 100 ml Free Water 100 ml IV Total 532.5 ml 644.19 ml Tube Feeding 100 ml Output Urine Total 0 ml 0 ml Stool Total 1000 ml 800 ml Dressing: dry Wound: other Drains: other Cardiovascular: RSR Respiratory: decreased breath sounds Abdomen: soft, distended, non-tender, decreased bowel sounds Extremities: edema, other Laboratory Tests Test 07/13/19 04:10 White Blood Count 44.1 K/UL (4.8-10.8) *H Red Blood Count 2.07 M/UL (4.70-6.10) L Hemoglobin 6.4 G/DL (14.2-18.0) *L Hematocrit 20.6 % (42.0-52.0) L Mean Corpuscular Volume 99 FL (80-99) Mean Corpuscular Hemoglobin 31.1 PG (27.0-31.0) H Mean Corpuscular Hemoglobin Concent 31.3 G/DL (32.0-36.0) L Red Cell Distribution Width 24.2 % (11.6-14.8) H Platelet Count 152 K/UL (150-450) Mean Platelet Volume 10.1 FL (6.5-10.1) Neutrophils (%) (Auto) % (45.0-75.0) Lymphocytes (%) (Auto) % (20.0-45.0) Monocytes (%) (Auto) % (1.0-10.0) Eosinophils (%) (Auto) % (0.0-3.0) Basophils (%) (Auto) % (0.0-2.0) Differential Total Cells Counted 100 Neutrophils % (Manual) 85 % (45-75) H Lymphocytes % (Manual) 5 % (20-45) L Monocytes % (Manual) 5 % (1-10) Eosinophils % (Manual) 4 % (0-3) H Basophils % (Manual) 0 % (0-2) Band Neutrophils 1 % (0-8) Platelet Estimate Adequate Platelet Morphology Normal Polychromasia 1+ Hypochromasia 2+ Anisocytosis 3+ Sodium Level 155 MMOL/L (136-145) H Potassium Level 3.3 MMOL/L (3.5-5.1) L Chloride Level 116 MMOL/L (98-107) H Carbon Dioxide Level 15 MMOL/L (21-32) L Anion Gap 25 mmol/L (5-15) H Blood Urea Nitrogen 97 mg/dL (7-18) H Creatinine 11.9 MG/DL (0.55-1.30) H Estimat Glomerular Filtration Rate 4.8 mL/min (>60) Glucose Level 151 MG/DL (74-106) H Uric Acid 18.2 MG/DL (2.6-7.2) H Calcium Level 7.2 MG/DL (8.5-10.1) L Phosphorus Level 9.6 MG/DL (2.5-4.9) H Magnesium Level 3.0 MG/DL (1.8-2.4) H Total Bilirubin 36.1 MG/DL (0.2-1.0) H Direct Bilirubin 28.7 MG/DL (0.0-0.3) H Aspartate Amino Transf (AST/SGOT) 140 U/L (15-37) H Alanine Aminotransferase (ALT/SGPT) 11 U/L (12-78) L Alkaline Phosphatase 227 U/L (46-116) H Total Protein 4.7 G/DL (6.4-8.2) L Albumin 1.6 G/DL (3.4-5.0) L Globulin 3.1 g/dL Albumin/Globulin Ratio 0.5 (1.0-2.7) L Plan Problems: (1) Pancreatitis, alcoholic, acute Assessment & Plan: Acute alcoholic pancreatitis. Levels fluctuating. Plan to check levels tomorrow Treat medically and conservatively for now If worsening leukocytosis may consider CT scan (2) Hepatorenal syndrome Assessment & Plan: Chronic liver disease acute, with acute pancreatitis and potential about her renal syndrome as noted. Currently stable treat conservatively no acute surgical intervention recommended Unfortunately invasive techniques not available at this facility Continue with ICU care and management (3) Respiratory failure (4) skin intergrety Assessment & Plan: Pt noted to have dry eschar bridge of nose. Periwound without erythema or fluctuance. Shearing noted to R and L clefts of buttocks. No exudate noted. Both heels firm and blanchable. Tx.Plan: Swab bridge of nose with Benzoin Tincture Twice Daily. Apply Moisture Barrier Paste to buttocks with each perineal care. Apply Cavilon Skin Barrier to both heels. Cover each heel with Optifoam drsg. Change every 7 days and prn. APM/MATTHEW mattress overlay. Reposition at least every 2hours or as tolerated. Off-load heels with pillow. (5) End-stage liver disease Assessment & Plan: DAILY ESTIMATED NEEDS: Needs based on Liver dz, 79kg adj 25-30 kcals/kg [id number] total kcals 1-1.5 (w/ HD 1.2-1.8) g protein/kg 79-119g (w/ HD 95-142g) g total protein Fluid per MD NUTRITION DIAGNOSIS: * Decreased sodium and fat needs r/t liver disease, cirrhosis, acute pancreatitis as evidenced by Abd US, elev T bili (33.5), pt is jaundiced, fatty liver, elev ammonia and AST, elev lipse (643), h/o etoh abuse, adm w/ elev serum alcohol. * Swallowing difficulty R/T confusion, dysphagia as evidenced by NGT feeding initiated, seen by [employer] w/ rec to continue nonoral feeds at this time. CURRENT TF: NEPRO @45 + PS x1 PO DIET RECOMMENDATIONS: WHEN SAFE FOR ORAL FEEDING -> LOW NA/ LOW FAT (texture per [employer]) ENTERAL NUTRITION RECOMMENDATIONS: MAINTAIN NEPRO W/ DIALYSIS TXT: Nepro @45ml/hr x24 hrs + PS x1 to provide 1080ml, 1944 kcal, 87g pro, 785ml free H20 * Maintain Nepro @45ml/hr as tolerated. * Add Prosource x1 pack daily to better meet est pro needs on HD * HOB over 30 degrees/ water flush per MD ADDITIONAL RECOMMENDATIONS: 1) Calibrated bedscale wt 2) Monitor for ability to start oral feeding 3) Check lytes daily 4) Rec to re-add thiamine + Folate daily, add MVI x 1 5) REC TF CHANGE TO NEPRO W/ DIALYSIS TXT 6) Monitor BGs closely, need for hypoglycemics (6) Acute alcoholic intoxication Kennedy Ellison Jul 13, 2019 10:43
[2019-07-13] MEDS: Octreotide Acetate 500 MCG in Sodium Chloride 499 ML IV SCH ×2 (11:13→21:22)
--- NOTE | 2019-07-13 11:14 | Diagnostic Imaging Report ---
Indication: Cough Comparison: 07/08/2019 A single view chest radiograph was obtained. Findings: There is a right jugular dialysis catheter again noted unchanged. NG tube is in good position. Lung volumes are low. Interstitial edema demonstrated. Heart is enlarged. Left basal atelectasis versus pneumonia. IMPRESSION: Mild interstitial edema. Left basal infiltrate versus atelectasis.
--- NOTE | 2019-07-13 11:33 | Hematology/Onc Progress Note ---
Assessment/Plan Assessment/Plan Assessment and Recs: # Thrombocytopenia - potential causes multifactorial, does have a history of etoh abuse, cirrhosis of the liver, hepatosplenomegaly, portal HTN, coagulopathy noted as well, likely oscillatory pattern can be due to abx as well. Hep panel and HIV ordered (NEG) --> US abd does show, portal htn and cirrhosis ++ --> Peripheral smear ordered to evaluate for blasts /schistocytes reviewed and is negative --> abx and other meds have been reviewed --> ok for ppx if plt >50k w/ either heparin or lovenox --> Transfuse if Plt < 20k and fever, or if Plt < 10k without fever --> plt trend 80-->97-->117-->157k->216k-->107k-->72k-->68k-->109k-->108k-->148k -->176k-->182k->141k-->128k-->148k-->152 --> ffp tx: 07/13 # Anemia of chronic disease due to underlying chronic medical issues, multifactorial (myelosuprresion noted) --> Anemia workup has been reviewed, ferritin 297 --> EPOGEN HAS BEEN ORDERED WITH HD --> Hgb goal >7. Transfuse prn. --> Medications have been reviewed --> low threshold for gi evaluation in case has occult + --> hgb trend: 7.7-->8.2-->9->8.4-->8.3-->8.2-->8-->7.4->7.3-->7.7-->7.8-->7.6-- >8.1->7.5-->7.8 --> serum electrophoresis shows no m-spike 06/27 --> cont thiamine --> blood tx: 2 units 07/13 # Coagulopathy due to cirrhosis --> give Vitk as needed # Leukocytosis with sepsis is on abx --> ID following, appreciate recs --> wbc trend: 17k-->13.9-->19.5-->18.7-->27.4-->33.6->32--->33-->30-->34-->44.1 --> FLAGYL and CTX-> vanc/amish-->cefe # Acute alcoholic intoxication --> etoh abuse history --> thiamine, folic acid, ivf # End-stage liver disease --> Hepatorenal syndrome r/o with renal, albumin prn # Pancreatitis, alcoholic, acute # Tachycardia # ESRD --> on hd as per renal # Dvt ppx with scds given low plts # POOR PROGNOSIS The timing of this note does not necessarily reflect the time of the patient was seen. GREATLY APPRECIATE CONSULTATION. Subjective Allergies: Coded Allergies: No Known Allergies (Unverified , 06/20/19) Subjective 06/21: low k, ferritin 297, h/h stable, afebrile, blood transfused 06/22: in icu, on restraints, labs reviewed, no f/c, imaging reviewed 06/23: pain meds given, remains in icu, again in restraints, bili higher, inr as well, given vitk 06/25: no fevers, no chills, no bleeding, confused in bed in icu 06/26: no events to report, no bleeding, remains in icu, ++ bipap 06/27: icu,s/p paracentesis yesterday, off pressors, h/h stable 06/28: on ctx/flagyl, remains confused, no bleeding, plt is lower 06/29: no f/c, on abx, no acute events, no distress, labs reviewed 06/30: remains in the icu, on abx, no f/c, scds+ 07/02: remains in the icu, no fevers or chills, prbc ordered, as well as epo 07/03: remains in the icu, on restraints, on abx, labs noted, vs stable, no acute events 07/04: dw team and agree patient with very poor prognosis, pending bioethics consult 07/05: remains in icu, very poor prognosis, labs noted wbc 27.4, off bipap receiving repiratory tx 07/06: remains icu, very poor prognosis, wbc 33.6 trending up, no f/c, vs stable , on bipap, paracentesis pending 07/08: remains in the icu, labs look worse, though repsonding better this am, able to raise hands 07/09: no events, hd was done, no events, labs noted, no bleeding 07/10: remains borderline in re to mental status, no f/c, no bleeding in the icu 07/11: no events to report, is on lactulose, opalfan, para ordered 07/12: a+o x 1, no bleeding, chills, night sweats, no major changes 07/13: hgb 6.4, 2 units prbc ordered, on pressors, hd for today, remains ill looking Objective Objective Current Medications Medications (Trade) Dose Ordered Sig/Gabriela Route PRN Reason Start Time Stop Time Status Last Admin Dose Admin Albuterol/ Ipratropium (Albuterol/ Ipratropium) 3 ml Q4HRT HHN 07/09/19 15:30 07/14/19 15:29 07/13/19 11:07 Cefepime HCl 1 gm/ Dextrose 55 ml @ 110 mls/hr Q24H IVPB 07/13/19 08:00 07/20/19 07:59 07/13/19 08:29 Chlorhexidine Gluconate (Emilie-Hex 2%) 1 applic DAILY@2000 TOPIC 06/26/19 20:00 07/26/19 19:59 07/12/19 20:14 Dopamine HCl/ Dextrose 250 ml @ 0 mls/hr Q24H IV 06/30/19 14:53 07/30/19 14:52 07/05/19 12:42 Epoetin Michael (Epoetin Michael(ESRD on dialysis)) 2,000 unit TUE-TUE-TUE SUBQ 07/02/19 21:00 08/01/19 20:59 07/11/19 21:29 Epoetin Michael (Epoetin Michael(ESRD on dialysis)) 3,000 unit TUE-TUE-TUE SUBQ 07/02/19 21:00 08/01/19 20:59 07/11/19 21:29 Lactulose (Cephulac) 30 gm FOUR TIMES A DAY NG 07/01/19 09:00 07/20/19 12:59 07/13/19 08:29 Multivitamins (Multivitamins) 1 tab DAILY ORAL 07/10/19 09:00 08/09/19 08:59 07/13/19 08:29 Norepinephrine Bitartrate 8 mg/ Dextrose 558 ml @ 0 mls/hr Q24H IV 07/12/19 21:30 08/11/19 21:29 07/13/19 09:25 Octreotide Acetate 500 mcg/ Sodium Chloride 500 ml @ 50 mls/hr Q10H IV 07/13/19 10:30 08/12/19 10:29 07/13/19 11:13 Pantoprazole (Protonix) 40 mg EVERY 12 HOURS IVP 07/13/19 10:00 08/12/19 09:59 07/13/19 10:26 Thiamine HCl (Vitamin B1) 100 mg DAILY ORAL 07/10/19 09:00 08/09/19 08:59 07/13/19 08:29 Last 24 Hour Vital Signs Date Time Temp Pulse Resp B/P (MAP) Pulse Ox O2 Delivery O2 Flow Rate FiO2 07/13/19 10:00 83 20 98/46 (63) 98 07/13/19 09:45 83 21 100/51 (67) 97 07/13/19 09:30 83 23 95/47 (63) 98 07/13/19 09:25 105/48 07/13/19 09:15 84 21 105/48 (67) 98 07/13/19 09:00 83 21 113/47 (69) 98 07/13/19 08:45 83 21 107/48 (67) 98 07/13/19 08:30 112/54 07/13/19 08:30 82 21 110/51 (70) 98 07/13/19 08:15 80 19 89/42 (58) 99 07/13/19 08:04 97 Nasal Cannula 2.0 28 07/13/19 08:00 98.6 80 19 81/34 (50) 100 07/13/19 08:00 2.0 07/13/19 08:00 Nasal Cannula 2.0 07/13/19 07:45 79 19 82/37 (52) 97 07/13/19 07:30 81 21 116/91 (99) 100 07/13/19 07:15 85 22 100/39 (59) 100 07/13/19 07:03 80 25 100 Bi-Pap 28 84 27 100 07/13/19 07:00 84 25 97/41 (59) 100 07/13/19 06:53 84 27 100 Facial 28 Bi-Pap 07/13/19 06:30 79 21 84/69 (74) 100 07/13/19 06:00 90/37 07/13/19 06:00 100/39 07/13/19 06:00 80 21 95/38 (57) 100 07/13/19 05:30 79 24 88/37 (54) 99 07/13/19 05:00 88/42 07/13/19 05:00 77 21 89/40 (56) 100 07/13/19 04:30 78 21 97/40 (59) 100 07/13/19 04:00 78 07/13/19 04:00 97.8 79 23 90/44 (59) 100 07/13/19 04:00 Nasal Cannula 2.0 07/13/19 04:00 96/38 07/13/19 04:00 28 07/13/19 03:04 81 24 100 Bi-Pap 28 79 25 100 07/13/19 03:03 79 25 100 Facial 28 79 25 100 Bi-Pap 28 07/13/19 03:00 92/39 07/13/19 02:00 93/47 07/13/19 01:00 78 25 100 Facial 28 07/13/19 01:00 95/42 07/13/19 01:00 81 24 95/42 (59) 99 07/13/19 00:30 82 25 93/48 (63) 99 07/13/19 00:00 98.2 82 24 93/52 (66) 99 07/13/19 00:00 93/52 07/13/19 00:00 Nasal Cannula 2.0 07/12/19 23:30 83 30 100 Facial 28 90 30 100 Bi-Pap 28 07/12/19 23:30 28 07/12/19 23:30 82 24 99/50 (66) 99 07/12/19 23:30 85 26 100 Bi-Pap 28 83 30 100 07/12/19 23:00 82 25 92/43 (59) 97 07/12/19 23:00 92/43 07/12/19 22:30 84 28 91/39 (56) 97 07/12/19 22:00 84 27 89/41 (57) 97 07/12/19 22:00 89/41 07/12/19 22:00 2.0 07/12/19 21:30 83 27 91/42 (58) 98 07/12/19 21:30 85/67 07/12/19 21:00 84 27 91/46 (61) 97 07/12/19 20:30 83 25 87/41 (56) 97 07/12/19 20:00 82/63 07/12/19 20:00 98.0 84 25 82/63 (69) 99 07/12/19 20:00 2.0 07/12/19 20:00 84 07/12/19 20:00 Nasal Cannula 2.0 07/12/19 19:45 83 25 97 Nasal Cannula 2.0 28 87 19 97 07/12/19 19:45 97 Nasal Cannula 2.0 28 07/12/19 19:30 86 28 74/39 (51) 97 07/12/19 19:00 84 26 88/41 (57) 98 07/12/19 18:30 88 31 96/48 (64) 96 07/12/19 18:00 85 23 95/52 (66) 98 07/12/19 17:00 88 21 98/53 (68) 100 07/12/19 17:00 88 20 98/53 (68) 99 07/12/19 16:33 103/52 07/12/19 16:30 92 30 101/59 (73) 97 07/12/19 16:30 91 28 108/54 (72) 100 07/12/19 16:00 2.0 07/12/19 16:00 Nasal Cannula 2.0 07/12/19 16:00 99.0 89 29 103/52 (69) 97 07/12/19 16:00 89 07/12/19 15:39 82 22 100 Nasal Cannula 2.0 28 07/12/19 15:30 86 27 78/63 (68) 100 07/12/19 15:29 84 30 97 07/12/19 15:00 86 28 107/48 (67) 97 07/12/19 14:30 86 28 98/54 (69) 97 07/12/19 14:00 86 27 94/47 (63) 94 07/12/19 13:30 84 26 97/49 (65) 94 07/12/19 13:00 85 28 99/51 (67) 95 07/12/19 12:57 93/52 07/12/19 12:30 85 24 93/52 (66) 95 07/12/19 12:00 2.0 07/12/19 12:00 97.8 86 24 116/61 (79) 95 07/12/19 12:00 85 07/12/19 12:00 Nasal Cannula 2.0 07/12/19 11:54 101/56 07/12/19 11:30 84 26 105/56 (72) 98 07/12/19 11:29 86 24 100 Nasal Cannula 2.0 28 07/12/19 11:19 83 20 96 07/12/19 11:00 83 25 101/56 (71) 97 07/12/19 10:30 83 23 94/54 (67) 98 07/12/19 10:00 85 26 103/46 (65) 98 07/12/19 09:30 87 24 76/48 (57) 98 07/12/19 09:00 89 25 99/52 (68) 99 07/12/19 08:30 94 28 90/69 (76) 98 07/12/19 08:00 100.0 89 32 90/47 (61) 97 07/12/19 08:00 Nasal Cannula 2.0 07/12/19 08:00 2.0 07/12/19 08:00 90 07/12/19 07:35 92 28 100 Nasal Cannula 2.0 28 07/12/19 07:30 92 28 106/48 (67) 99 07/12/19 07:27 94 Nasal Cannula 2.0 28 07/12/19 07:25 89 35 94 07/12/19 07:15 92 32 96/50 (65) 96 07/12/19 07:00 91 30 103/48 (66) 95 07/12/19 07:00 96/50 07/12/19 06:45 89 30 95/47 (63) 95 07/12/19 06:30 91 28 98/52 (67) 93 07/12/19 06:15 98.8 90 30 90/59 (69) 94 07/12/19 06:00 93 32 96/46 (63) 96 07/12/19 06:00 90/59 07/12/19 05:45 92 30 102/50 (67) 94 07/12/19 05:30 92 29 103/48 (66) 97 07/12/19 05:15 95 34 105/50 (68) 97 07/12/19 05:00 99/44 07/12/19 05:00 91 30 99/44 (62) 97 07/12/19 04:45 91 29 99/48 (65) 97 07/12/19 04:30 95 30 101/47 (65) 97 07/12/19 04:15 93 31 106/47 (66) 96 07/12/19 04:00 Nasal Cannula 2.0 07/12/19 04:00 99.8 92 32 102/46 (64) 97 07/12/19 04:00 28 07/12/19 04:00 95 07/12/19 03:59 101/43 07/12/19 03:58 101/43 07/12/19 03:52 92 31 101/43 (62) 96 07/12/19 03:30 93 31 93/40 (57) 96 07/12/19 03:11 87 30 98 Facial 28 90 30 100 Bi-Pap 28 07/12/19 03:00 89/40 07/12/19 03:00 89 30 89/40 (56) 97 07/12/19 02:45 92 33 97/46 (63) 97 07/12/19 02:30 92 30 98/42 (60) 97 07/12/19 02:15 95 28 101/49 (66) 97 07/12/19 02:00 95 28 96/70 (79) 97 07/12/19 02:00 101/49 07/12/19 01:45 90 31 96/44 (61) 96 07/12/19 01:30 93 28 98/46 (63) 98 07/12/19 01:17 92 26 98 Facial 28 07/12/19 01:15 93 30 101/52 (68) 98 07/12/19 01:00 101/49 07/12/19 01:00 92 30 103/44 (63) 98 07/12/19 00:45 94 30 102/50 (67) 98 07/12/19 00:30 94 32 100/46 (64) 98 07/12/19 00:15 96 30 99/47 (64) 97 07/12/19 00:00 28 07/12/19 00:00 98.6 90 29 94/51 (65) 98 9/19/19 00:00 94/51 9/19/19 00:00 Nasal Cannula 2.0 /18/19 23:45 91 31 98/51 (67) 98 9/18/19 23:30 90 29 95/44 (61) 97 9/18/19 23:15 92 31 96/50 (65) 99 9/18/19 23:10 88 25 100 Facial 28 9/18/19 23:06 89 28 100 Nasal Cannula 2.0 28 84 29 96 9/18/19 23:00 85 32 92/46 (61) 96 9/18/19 23:00 96/50 9/18/19 22:46 86 29 93/47 (62) 96 /18/19 22:30 85 31 92/46 (61) 96 9/18/19 22:15 86 31 93/42 (59) 96 9/18/19 22:00 86/53 9/18/19 22:00 85 26 86/53 (64) 96 /18/19 21:45 86 31 91/46 (61) 95 9/18/19 21:30 87 29 96/45 (62) 95 9/18/19 21:15 86 29 97/45 (62) 96 9/18/19 21:00 85 32 88/45 (59) 96 9/18/19 21:00 88/45 9/18/19 20:59 86 28 88/44 (59) 96 9/18/19 20:45 88 32 91/43 (59) 97 9/18/19 20:30 86 25 92/50 (64) 97 9/18/19 20:15 86 27 89/47 (61) 97 9/18/19 20:00 Nasal Cannula 2.0 9/18/19 20:00 93 9/18/19 20:00 98.6 84 28 84/41 (55) 97 9/18/19 20:00 2.0 9/18/19 19:55 70/40 9/18/19 19:45 85 24 90/47 (61) 100 9/18/19 19:32 84 22 100 Nasal Cannula 1.0 24 81 21 96 9/18/19 19:31 96 Nasal Cannula 1.0 24 9/18/19 19:30 83 25 77/45 (56) 96 9/18/19 19:23 83 26 84/41 (55) 98 07/11/19 19:18 83 28 81/42 (55) 97 07/11/19 19:15 83 28 68/52 (57) 96 07/11/19 19:14 83 29 80/31 (47) 96 07/11/19 19:00 81 26 83/42 (56) 96 07/11/19 18:00 79 22 96/40 (58) 96 07/11/19 17:00 83 26 94/37 (56) 94 07/11/19 16:00 98.5 87 28 86/45 (59) 96 07/11/19 16:00 2.0 07/11/19 16:00 Nasal Cannula 2.0 07/11/19 16:00 84 07/11/19 15:00 83 25 86/39 (55) 96 07/11/19 14:53 106/38 07/11/19 14:00 85 25 106/38 (60) 97 07/11/19 13:00 85 23 90/37 (54) 97 07/11/19 12:00 82 07/11/19 12:00 98.0 84 19 93/34 (53) 97 07/11/19 12:00 Nasal Cannula 2.0 07/11/19 12:00 2.0 Intake and Output 07/12/19 07/13/19 19:00 07:00 Intake Total 632.5 ml 844.19 ml Output Total 1000 ml 800 ml Balance -367.5 ml 44.19 ml Intake Oral 100 ml Free Water 100 ml IV Total 532.5 ml 644.19 ml Tube Feeding 100 ml Output Urine Total 0 ml 0 ml Stool Total 1000 ml 800 ml Labs Test 07/11/19 04:00 07/12/19 04:10 07/13/19 04:10 Sodium Level 151 MMOL/L (136-145) 152 MMOL/L (136-145) 155 MMOL/L (136-145) Potassium Level 3.1 MMOL/L (3.5-5.1) 3.8 MMOL/L (3.5-5.1) 3.3 MMOL/L (3.5-5.1) Chloride Level 113 MMOL/L (98-107) 114 MMOL/L (98-107) 116 MMOL/L (98-107) Carbon Dioxide Level 18 MMOL/L (21-32) 15 MMOL/L (21-32) 15 MMOL/L (21-32) Anion Gap 20 mmol/L (5-15) 23 mmol/L (5-15) 25 mmol/L (5-15) Blood Urea Nitrogen 70 mg/dL (7-18) 89 mg/dL (7-18) 97 mg/dL (7-18) Creatinine 9.1 MG/DL (0.55-1.30) 10.5 MG/DL (0.55-1.30) 11.9 MG/DL (0.55-1.30) Estimat Glomerular Filtration Rate 6.5 mL/min (>60) 5.5 mL/min (>60) 4.8 mL/min (>60) Glucose Level 116 MG/DL (74-106) 141 MG/DL (74-106) 151 MG/DL (74-106) Uric Acid 14.2 MG/DL (2.6-7.2) 18.2 MG/DL (2.6-7.2) Calcium Level 7.7 MG/DL (8.5-10.1) 7.6 MG/DL (8.5-10.1) 7.2 MG/DL (8.5-10.1) Phosphorus Level 7.0 MG/DL (2.5-4.9) 9.6 MG/DL (2.5-4.9) Total Bilirubin 35.9 MG/DL (0.2-1.0) 38.4 MG/DL (0.2-1.0) 36.1 MG/DL (0.2-1.0) Direct Bilirubin 28.4 MG/DL (0.0-0.3) 30.3 MG/DL (0.0-0.3) 28.7 MG/DL (0.0-0.3) Aspartate Amino Transf (AST/SGOT) 183 U/L (15-37) 190 U/L (15-37) 140 U/L (15-37) Alanine Aminotransferase (ALT/SGPT) 9 U/L (12-78) 13 U/L (12-78) 11 U/L (12-78) Alkaline Phosphatase 256 U/L (46-116) 285 U/L (46-116) 227 U/L (46-116) Ammonia 48 umol/L (11-32) 278 umol/L (11-32) Total Protein 4.9 G/DL (6.4-8.2) 5.3 G/DL (6.4-8.2) 4.7 G/DL (6.4-8.2) Albumin 1.6 G/DL (3.4-5.0) 1.6 G/DL (3.4-5.0) 1.6 G/DL (3.4-5.0) Globulin 3.3 g/dL 3.8 g/dL 3.1 g/dL Albumin/Globulin Ratio 0.5 (1.0-2.7) 0.4 (1.0-2.7) 0.5 (1.0-2.7) White Blood Count 33.5 K/UL (4.8-10.8) 44.1 K/UL (4.8-10.8) Red Blood Count 2.49 M/UL (4.70-6.10) 2.07 M/UL (4.70-6.10) Hemoglobin 7.8 G/DL (14.2-18.0) 6.4 G/DL (14.2-18.0) Hematocrit 25.3 % (42.0-52.0) 20.6 % (42.0-52.0) Mean Corpuscular Volume 102 FL (80-99) 99 FL (80-99) Mean Corpuscular Hemoglobin 31.2 PG (27.0-31.0) 31.1 PG (27.0-31.0) Mean Corpuscular Hemoglobin Concent 30.7 G/DL (32.0-36.0) 31.3 G/DL (32.0-36.0) Red Cell Distribution Width 24.6 % (11.6-14.8) 24.2 % (11.6-14.8) Platelet Count 149 K/UL (150-450) 152 K/UL (150-450) Mean Platelet Volume 8.5 FL (6.5-10.1) 10.1 FL (6.5-10.1) Neutrophils (%) (Auto) % (45.0-75.0) % (45.0-75.0) Lymphocytes (%) (Auto) % (20.0-45.0) % (20.0-45.0) Monocytes (%) (Auto) % (1.0-10.0) % (1.0-10.0) Eosinophils (%) (Auto) % (0.0-3.0) % (0.0-3.0) Basophils (%) (Auto) % (0.0-2.0) % (0.0-2.0) Differential Total Cells Counted 100 100 Neutrophils % (Manual) 83 % (45-75) 85 % (45-75) Lymphocytes % (Manual) 3 % (20-45) 5 % (20-45) Monocytes % (Manual) 9 % (1-10) 5 % (1-10) Eosinophils % (Manual) 1 % (0-3) 4 % (0-3) Basophils % (Manual) 0 % (0-2) 0 % (0-2) Band Neutrophils 4 % (0-8) 1 % (0-8) Platelet Estimate Adequate Adequate Platelet Morphology Normal Normal Polychromasia 1+ 1+ Hypochromasia 1+ 2+ Anisocytosis 3+ 3+ Macrocytosis 1+ C-Reactive Protein, Quantitative 15.2 mg/dL (0.00-0.90) Magnesium Level 3.0 MG/DL (1.8-2.4) Height (Feet): 5 Height (Inches): 9.00 Weight (Pounds): 232 Objective Physical Exam: Vitals: reviewed General Appearance: NAD HEENT: normocephalic, atraumatic ++ icterus jaundice, ng+ Neck: non-tender, normal alignment Respiratory/Chest: normal breath sounds bilaterally++ nc, BIPAP+ Cardiovascular/Chest: normal peripheral pulses, normal rate Abdomen: normal bowel sounds, soft,+ peg ++ ascites Extremities: normal range of motion Marty Kebede MD Jul 13, 2019 11:33
--- NOTE | 2019-07-13 11:46 | Infectious Diseases Prog Note ---
Assessment/Plan Assessment/Plan IMPRESSION: 1. Sepsis. 2. leukocytosis 3. Tachycardia. 4. Leukocytosis. 5. colitis, 6.Alcoholic pancreatitis, 7.Cirrhosis of liver, 8. Acute renal failure likely hepatorenal syndrome, - ESRD 9.Anemia, 10. thrombocytopenia, 11.hypocalcemia, 12.hypomagnesemia, corrected 13 hypokalemia, 14, Alcohol withdrawal. 15.Metabolic encephalopathy 16. Hypophosphatemia 17. Hypernatremia 18. Hypoxic respiratory failure 19 GI bleeding RECOMMENDATION: Started on Cefepime Stool for C.difficile: negative Poor prognosis Subjective ROS Limited/Unobtainable: Yes Cardiovascular: Reports: other - restarted on Levophed Gastrointestinal/Abdominal: Reports: blood in stool Allergies: Coded Allergies: No Known Allergies (Unverified , 06/20/19) Objective Vital Signs Last 24 Hour Vital Signs Date Time Temp Pulse Resp B/P (MAP) Pulse Ox O2 Delivery O2 Flow Rate FiO2 07/13/19 11:17 84 26 100 Nasal Cannula 2.0 28 80 24 99 07/13/19 10:00 83 20 98/46 (63) 98 07/13/19 09:45 83 21 100/51 (67) 97 07/13/19 09:30 83 23 95/47 (63) 98 07/13/19 09:25 105/48 07/13/19 09:15 84 21 105/48 (67) 98 07/13/19 09:00 83 21 113/47 (69) 98 07/13/19 08:45 83 21 107/48 (67) 98 07/13/19 08:30 112/54 07/13/19 08:30 82 21 110/51 (70) 98 07/13/19 08:15 80 19 89/42 (58) 99 07/13/19 08:04 97 Nasal Cannula 2.0 28 07/13/19 08:00 98.6 80 19 81/34 (50) 100 07/13/19 08:00 2.0 07/13/19 08:00 Nasal Cannula 2.0 07/13/19 07:45 79 19 82/37 (52) 97 07/13/19 07:30 81 21 116/91 (99) 100 07/13/19 07:15 85 22 100/39 (59) 100 07/13/19 07:03 80 25 100 Bi-Pap 28 84 27 100 07/13/19 07:00 84 25 97/41 (59) 100 07/13/19 06:53 84 27 100 Facial 28 Bi-Pap 07/13/19 06:30 79 21 84/69 (74) 100 07/13/19 06:00 90/37 07/13/19 06:00 100/39 07/13/19 06:00 80 21 95/38 (57) 100 07/13/19 05:30 79 24 88/37 (54) 99 07/13/19 05:00 88/42 07/13/19 05:00 77 21 89/40 (56) 100 07/13/19 04:30 78 21 97/40 (59) 100 07/13/19 04:00 78 07/13/19 04:00 97.8 79 23 90/44 (59) 100 07/13/19 04:00 Nasal Cannula 2.0 07/13/19 04:00 96/38 07/13/19 04:00 28 07/13/19 03:04 81 24 100 Bi-Pap 28 79 25 100 07/13/19 03:03 79 25 100 Facial 28 79 25 100 Bi-Pap 28 07/13/19 03:00 92/39 07/13/19 02:00 93/47 07/13/19 01:00 78 25 100 Facial 28 07/13/19 01:00 95/42 07/13/19 01:00 81 24 95/42 (59) 99 07/13/19 00:30 82 25 93/48 (63) 99 07/13/19 00:00 98.2 82 24 93/52 (66) 99 07/13/19 00:00 93/52 07/13/19 00:00 Nasal Cannula 2.0 07/12/19 23:30 83 30 100 Facial 28 90 30 100 Bi-Pap 28 07/12/19 23:30 28 07/12/19 23:30 82 24 99/50 (66) 99 07/12/19 23:30 85 26 100 Bi-Pap 28 83 30 100 07/12/19 23:00 82 25 92/43 (59) 97 07/12/19 23:00 92/43 07/12/19 22:30 84 28 91/39 (56) 97 9/19/19 22:00 84 27 89/41 (57) 97 07/12/19 22:00 89/41 07/12/19 22:00 2.0 07/12/19 21:30 83 27 91/42 (58) 98 07/12/19 21:30 85/67 07/12/19 21:00 84 27 91/46 (61) 97 07/12/19 20:30 83 25 87/41 (56) 97 07/12/19 20:00 82/63 07/12/19 20:00 98.0 84 25 82/63 (69) 99 07/12/19 20:00 2.0 07/12/19 20:00 84 07/12/19 20:00 Nasal Cannula 2.0 07/12/19 19:45 83 25 97 Nasal Cannula 2.0 28 87 19 97 07/12/19 19:45 97 Nasal Cannula 2.0 28 07/12/19 19:30 86 28 74/39 (51) 97 07/12/19 19:00 84 26 88/41 (57) 98 07/12/19 18:30 88 31 96/48 (64) 96 07/12/19 18:00 85 23 95/52 (66) 98 07/12/19 17:00 88 21 98/53 (68) 100 07/12/19 17:00 88 20 98/53 (68) 99 07/12/19 16:33 103/52 07/12/19 16:30 92 30 101/59 (73) 97 07/12/19 16:30 91 28 108/54 (72) 100 07/12/19 16:00 2.0 07/12/19 16:00 Nasal Cannula 2.0 07/12/19 16:00 99.0 89 29 103/52 (69) 97 07/12/19 16:00 89 07/12/19 15:39 82 22 100 Nasal Cannula 2.0 28 07/12/19 15:30 86 27 78/63 (68) 100 07/12/19 15:29 84 30 97 07/12/19 15:00 86 28 107/48 (67) 97 07/12/19 14:30 86 28 98/54 (69) 97 07/12/19 14:00 86 27 94/47 (63) 94 07/12/19 13:30 84 26 97/49 (65) 94 9/19/19 13:00 85 28 99/51 (67) 95 07/12/19 12:57 93/52 07/12/19 12:30 85 24 93/52 (66) 95 07/12/19 12:00 2.0 07/12/19 12:00 97.8 86 24 116/61 (79) 95 07/12/19 12:00 85 07/12/19 12:00 Nasal Cannula 2.0 07/12/19 11:54 101/56 Height (Feet): 5 Height (Inches): 9.00 Weight (Pounds): 232 HEENT: mucous membranes moist, other - icterus Respiratory/Chest: lungs clear Cardiovascular: normal rate, other - RIJ HD & PICC line Abdomen: distended, other - Blood in rectal tube, NG tube Neurologic/Psychiatric: disoriented Microbiology Date/Time Source Procedure Growth Status 07/11/19 10:56 Stool Clostridium difficile Toxin Assay - Final Complete Laboratory Tests Test 07/13/19 04:10 White Blood Count 44.1 K/UL (4.8-10.8) *H Red Blood Count 2.07 M/UL (4.70-6.10) L Hemoglobin 6.4 G/DL (14.2-18.0) *L Hematocrit 20.6 % (42.0-52.0) L Mean Corpuscular Volume 99 FL (80-99) Mean Corpuscular Hemoglobin 31.1 PG (27.0-31.0) H Mean Corpuscular Hemoglobin Concent 31.3 G/DL (32.0-36.0) L Red Cell Distribution Width 24.2 % (11.6-14.8) H Platelet Count 152 K/UL (150-450) Mean Platelet Volume 10.1 FL (6.5-10.1) Neutrophils (%) (Auto) % (45.0-75.0) Lymphocytes (%) (Auto) % (20.0-45.0) Monocytes (%) (Auto) % (1.0-10.0) Eosinophils (%) (Auto) % (0.0-3.0) Basophils (%) (Auto) % (0.0-2.0) Differential Total Cells Counted 100 Neutrophils % (Manual) 85 % (45-75) H Lymphocytes % (Manual) 5 % (20-45) L Monocytes % (Manual) 5 % (1-10) Eosinophils % (Manual) 4 % (0-3) H Basophils % (Manual) 0 % (0-2) Band Neutrophils 1 % (0-8) Platelet Estimate Adequate Platelet Morphology Normal Polychromasia 1+ Hypochromasia 2+ Anisocytosis 3+ Sodium Level 155 MMOL/L (136-145) H Potassium Level 3.3 MMOL/L (3.5-5.1) L Chloride Level 116 MMOL/L (98-107) H Carbon Dioxide Level 15 MMOL/L (21-32) L Anion Gap 25 mmol/L (5-15) H Blood Urea Nitrogen 97 mg/dL (7-18) H Creatinine 11.9 MG/DL (0.55-1.30) H Estimat Glomerular Filtration Rate 4.8 mL/min (>60) Glucose Level 151 MG/DL (74-106) H Uric Acid 18.2 MG/DL (2.6-7.2) H Calcium Level 7.2 MG/DL (8.5-10.1) L Phosphorus Level 9.6 MG/DL (2.5-4.9) H Magnesium Level 3.0 MG/DL (1.8-2.4) H Total Bilirubin 36.1 MG/DL (0.2-1.0) H Direct Bilirubin 28.7 MG/DL (0.0-0.3) H Aspartate Amino Transf (AST/SGOT) 140 U/L (15-37) H Alanine Aminotransferase (ALT/SGPT) 11 U/L (12-78) L Alkaline Phosphatase 227 U/L (46-116) H Total Protein 4.7 G/DL (6.4-8.2) L Albumin 1.6 G/DL (3.4-5.0) L Globulin 3.1 g/dL Albumin/Globulin Ratio 0.5 (1.0-2.7) L Current Medications Medications (Trade) Dose Ordered Sig/Gabriela Route PRN Reason Start Time Stop Time Status Last Admin Dose Admin Albuterol/ Ipratropium (Albuterol/ Ipratropium) 3 ml Q4HRT HHN 07/09/19 15:30 07/14/19 15:29 07/13/19 11:07 Cefepime HCl 1 gm/ Dextrose 55 ml @ 110 mls/hr Q24H IVPB 07/13/19 08:00 07/20/19 07:59 07/13/19 08:29 Chlorhexidine Gluconate (Emilie-Hex 2%) 1 applic DAILY@2000 TOPIC 06/26/19 20:00 07/26/19 19:59 07/12/19 20:14 Dopamine HCl/ Dextrose 250 ml @ 0 mls/hr Q24H IV 06/30/19 14:53 07/30/19 14:52 07/05/19 12:42 Epoetin Michael (Epoetin Michael(ESRD on dialysis)) 2,000 unit TUE-TUE-TUE SUBQ 07/02/19 21:00 08/01/19 20:59 07/11/19 21:29 Epoetin Michael (Epoetin Michael(ESRD on dialysis)) 3,000 unit TUE- SUBQ 07/02/19 21:00 08/01/19 20:59 07/11/19 21:29 Lactulose (Cephulac) 30 gm FOUR TIMES A DAY NG 07/01/19 09:00 07/20/19 12:59 07/13/19 08:29 Multivitamins (Multivitamins) 1 tab DAILY ORAL 07/10/19 09:00 08/09/19 08:59 07/13/19 08:29 Norepinephrine Bitartrate 8 mg/ Dextrose 558 ml @ 0 mls/hr Q24H IV 07/12/19 21:30 08/11/19 21:29 07/13/19 09:25 Octreotide Acetate 500 mcg/ Sodium Chloride 500 ml @ 50 mls/hr Q10H IV 07/13/19 10:30 08/12/19 10:29 07/13/19 11:13 Pantoprazole (Protonix) 40 mg EVERY 12 HOURS IVP 07/13/19 10:00 08/12/19 09:59 07/13/19 10:26 Thiamine HCl (Vitamin B1) 100 mg DAILY ORAL 07/10/19 09:00 08/09/19 08:59 07/13/19 08:29 Ilia Chakraborty MD Jul 13, 2019 11:46
[2019-07-13 13:17] LABS: INR 2.4 (0.9-1.1)
[2019-07-13] MEDS: D5 1/2NS 1,000 ML IV SCH (13:53)
[2019-07-13] MEDS ORDERED: Tubing IV Secondary IV ONE (14:51)
[2019-07-13] MEDS ORDERED: Sterile Water Irrig 1000ml IRRIG ONE (14:51)
[2019-07-13] MEDS ORDERED: NS 275ml ONE (14:51)
[2019-07-13] MEDS: DOPamine 400mg/250ml 250 ML IV SCH ×2 (14:53→19:25)
--- NOTE | 2019-07-13 21:16 | General Progress Note ---
Assessment/Plan Problem List: (1) Anemia ICD Codes: D64.9 - Anemia, unspecified SNOMED: 808460809 Qualifiers: Qualified Codes: D64.9 - Anemia, unspecified (2) Acute alcoholic intoxication ICD Codes: F10.929 - Alcohol use, unspecified with intoxication, unspecified SNOMED: 94636024, 7411204 Qualifiers: Qualified Codes: F10.920 - Alcohol use, unspecified with intoxication, uncomplicated (3) End-stage liver disease ICD Codes: K72.90 - Hepatic failure, unspecified without coma SNOMED: 297581888 (4) Hepatorenal syndrome ICD Codes: K76.7 - Hepatorenal syndrome SNOMED: 92426595, 9803152 (5) Pancreatitis, alcoholic, acute ICD Codes: K85.20 - Alcohol induced acute pancreatitis without necrosis or infection SNOMED: 247282135, 2030727 Qualifiers: Qualified Codes: K85.20 - Alcohol induced acute pancreatitis without necrosis or infection (6) Respiratory failure ICD Codes: J96.90 - Respiratory failure, unspecified, unspecified whether with hypoxia or hypercapnia SNOMED: 916577423 Status: stable, progressing, deteriorating Assessment/Plan: end stage multi organ failure irrevesible condition very poor prognosis confused hepatic encephalopathy elevated lft is persistent s/p paracentesis hepatorenal syndrome Subjective ROS Limited/Unobtainable: Yes Allergies: Coded Allergies: No Known Allergies (Unverified , 06/20/19) Objective Last 24 Hour Vital Signs Date Time Temp Pulse Resp B/P (MAP) Pulse Ox O2 Delivery O2 Flow Rate FiO2 07/13/19 20:54 88 29 100 Facial 40 07/13/19 19:43 98/47 07/13/19 19:35 Bi-Pap 07/13/19 19:30 124 32 98 Facial 40 124 07/13/19 19:25 76/41 07/13/19 19:00 94 28 103/52 (69) 96 07/13/19 19:00 98/47 07/13/19 18:30 94 28 103/52 (69) 96 07/13/19 18:00 93 27 105/46 (65) 95 07/13/19 18:00 100/49 07/13/19 17:30 94 26 100/49 (66) 95 07/13/19 17:00 92 26 100/59 (73) 96 07/13/19 17:00 101/51 07/13/19 16:30 91 25 88/50 (63) 95 07/13/19 16:00 94 07/13/19 16:00 99.6 91 22 92/54 (67) 96 07/13/19 16:00 2.0 07/13/19 16:00 98/48 07/13/19 16:00 Nasal Cannula 2.0 07/13/19 15:30 92 24 99/46 (63) 96 07/13/19 15:07 85 20 99 Nasal Cannula 2.0 28 88 16 96 07/13/19 15:00 90 25 93/49 (64) 99 07/13/19 15:00 93/49 07/13/19 14:53 99/46 07/13/19 14:30 88 21 87/63 (71) 98 07/13/19 14:30 100/52 07/13/19 14:15 87 22 92/49 (63) 99 07/13/19 14:14 94/42 07/13/19 14:13 94/42 07/13/19 14:00 92/49 07/13/19 14:00 87 20 94/42 (59) 99 07/13/19 13:45 94/42 07/13/19 13:45 84 26 83/46 (58) 98 07/13/19 13:30 87 22 95/49 (64) 98 07/13/19 13:30 83/46 07/13/19 13:15 86 22 91/45 (60) 98 07/13/19 13:15 91/45 07/13/19 13:00 91/45 07/13/19 13:00 85 21 96/60 (72) 98 07/13/19 12:45 79/42 20 12:45 84 23 79/42 (54) 100 07/13/19 12:30 76/42 20 12:30 83 23 89/46 (60) 98 20 12:15 85 22 74/57 (63) 97 07/13/19 12:15 89/46 20 12:00 88 07/13/19 12:00 2.0 07/13/19 12:00 74/29 07/13/19 12:00 Nasal Cannula 2.0 20/ 12:00 98.4 86 22 83/43 (56) 98 20/19 11:45 86 21 77/41 (53) 97 20/19 11:45 83/43 20/19 11:30 77/41 /20/19 11:30 84 16 88/43 (58) 97 20/ 11:17 84 26 100 Nasal Cannula 2.0 28 80 24 99 20/ 11:15 86 19 97/46 (63) 96 20/19 11:13 88/43 20/19 11:00 97/46 20/ 11:00 83 24 97/42 (60) 98 07/13/ 10:45 97/42 20/ 10:45 84 24 91/42 (58) 98 20 10:30 83 25 95/46 (62) 97 07/13/19 10:30 91/42 20/19 10:15 95/46 07/13/ 10:15 83 21 108/49 (68) 100 20/19 10:00 83 20 98/46 (63) 98 20/19 10:00 98/46 20/ 09:45 83 21 100/51 (67) 97 20 09:45 100/51 20/19 09:30 83 23 95/47 (63) 98 20/ 09:30 100/51 20/19 09:25 105/48 20/19 09:15 95/47 20/19 09:15 84 21 105/48 (67) 98 20/19 09:00 105/48 920/19 09:00 83 21 113/47 (69) 98 20/19 08:45 83 21 107/48 (67) 98 20/19 08:45 113/47 20/19 08:30 112/54 920/19 08:30 82 21 110/51 (70) 98 20/19 08:15 89/42 920/19 08:15 80 19 89/42 (58) 99 07/13/19 08:04 97 Nasal Cannula 2.0 28 07/13/19 08:00 98.6 80 19 81/34 (50) 100 07/13/19 08:00 2.0 07/13/19 08:00 88/41 07/13/19 08:00 82 07/13/19 08:00 Nasal Cannula 2.0 07/13/19 07:45 79 19 82/37 (52) 97 07/13/19 07:45 76/38 07/13/19 07:30 81 21 116/91 (99) 100 07/13/19 07:30 76/38 07/13/19 07:15 85 22 100/39 (59) 100 07/13/19 07:15 100/39 07/13/19 07:03 80 25 100 Bi-Pap 28 84 27 100 07/13/19 07:00 84 25 97/41 (59) 100 07/13/19 07:00 100/39 07/13/19 06:53 84 27 100 Facial 28 Bi-Pap 07/13/19 06:30 79 21 84/69 (74) 100 07/13/19 06:00 90/37 07/13/19 06:00 100/39 07/13/19 06:00 80 21 95/38 (57) 100 07/13/19 05:30 79 24 88/37 (54) 99 07/13/19 05:00 88/42 07/13/19 05:00 77 21 89/40 (56) 100 07/13/19 04:30 78 21 97/40 (59) 100 07/13/19 04:00 78 07/13/19 04:00 97.8 79 23 90/44 (59) 100 07/13/19 04:00 Nasal Cannula 2.0 07/13/19 04:00 96/38 07/13/19 04:00 28 07/13/19 03:04 81 24 100 Bi-Pap 28 79 25 100 07/13/19 03:03 79 25 100 Facial 28 79 25 100 Bi-Pap 28 07/13/19 03:00 92/39 07/13/19 02:00 93/47 07/13/19 01:00 78 25 100 Facial 28 07/13/19 01:00 95/42 07/13/19 01:00 81 24 95/42 (59) 99 07/13/19 00:30 82 25 93/48 (63) 99 07/13/19 00:00 98.2 82 24 93/52 (66) 99 07/13/19 00:00 93/52 07/13/19 00:00 Nasal Cannula 2.0 07/12/19 23:30 83 30 100 Facial 28 90 30 100 Bi-Pap 28 07/12/19 23:30 28 07/12/19 23:30 82 24 99/50 (66) 99 07/12/19 23:30 85 26 100 Bi-Pap 28 83 30 100 07/12/19 23:00 82 25 92/43 (59) 97 07/12/19 23:00 92/43 07/12/19 22:30 84 28 91/39 (56) 97 07/12/19 22:00 84 27 89/41 (57) 97 07/12/19 22:00 89/41 07/12/19 22:00 2.0 07/12/19 21:30 83 27 91/42 (58) 98 07/12/19 21:30 85/67 Intake and Output 07/12/19 07/13/19 19:00 07:00 Intake Total 632.5 ml 902.78 ml Output Total 1000 ml 800 ml Balance -367.5 ml 102.78 ml Intake Oral 100 ml Free Water 100 ml IV Total 532.5 ml 702.78 ml Tube Feeding 100 ml Output Urine Total 0 ml 0 ml Stool Total 1000 ml 800 ml Laboratory Tests 07/13/19 04:10: White Blood Count 44.1*H, Red Blood Count 2.07L, Hemoglobin 6.4*L, Hematocrit 20.6L, Mean Corpuscular Volume 99, Mean Corpuscular Hemoglobin 31.1H, Mean Corpuscular Hemoglobin Concent 31.3L, Red Cell Distribution Width 24.2H, Platelet Count 152, Mean Platelet Volume 10.1, Neutrophils (%) (Auto) , Lymphocytes (%) (Auto) , Monocytes (%) (Auto) , Eosinophils (%) (Auto) , Basophils (%) (Auto) , Differential Total Cells Counted 100, Neutrophils % ( Manual) 85H, Lymphocytes % (Manual) 5L, Monocytes % (Manual) 5, Eosinophils % ( Manual) 4H, Basophils % (Manual) 0, Band Neutrophils 1, Platelet Estimate Adequate, Platelet Morphology Normal, Polychromasia 1+, Hypochromasia 2+, Anisocytosis 3+, Sodium Level 155H, Potassium Level 3.3L, Chloride Level 116H, Carbon Dioxide Level 15L, Anion Gap 25H, Blood Urea Nitrogen 97H, Creatinine 11.9H, Estimat Glomerular Filtration Rate 4.8, Glucose Level 151H, Uric Acid 18.2H, Calcium Level 7.2L, Phosphorus Level 9.6H, Magnesium Level 3.0H, Total Bilirubin 36.1H, Direct Bilirubin 28.7H, Aspartate Amino Transf (AST/SGOT) 140H , Alanine Aminotransferase (ALT/SGPT) 11L, Alkaline Phosphatase 227H, Total Protein 4.7L, Albumin 1.6L, Globulin 3.1, Albumin/Globulin Ratio 0.5L 07/13/19 11:20: Prothrombin Time 24.0H, Prothromb Time International Ratio 2.4H, Activated Partial Thromboplast Time 65H, Fibrinogen 230 Height (Feet): 5 Height (Inches): 9.00 Weight (Pounds): 232 Cardiovascular: normal rate Respiratory/Chest: lungs clear Abdomen: soft Deejay Saldaña MD Jul 13, 2019 21:16
[2019-07-13] MEDS: Dyna-Hex 2% Top Sol 2oz TOPIC SCH (21:21)
[2019-07-13] MEDS: Epoetin Alfa-EPBX(ESRD on dialysis)3000 units/ml vial SUBQ SCH (21:22)
[2019-07-13] MEDS: Epoetin Alfa-EPBX(ESRD on dialysis)2000 units/ml vial SUBQ SCH (21:22)
[2019-07-13 21:38] LABS: HEMATOCRIT 20.7 % (42.0-52.0); MEAN CORPUSCULAR VOLUME 95 FL (80-99); PLATELET COUNT 104 K/UL (150-450); RED BLOOD COUNT 2.19 M/UL (4.70-6.10); RED CELL DISTRIBUTION WIDTH 21.8 % (11.6-14.8)
[2019-07-13 21:59] LABS: WHITE BLOOD COUNT 40.8 K/UL (4.8-10.8)
[2019-07-13 22:00] LABS: HEMOGLOBIN 6.8 G/DL (14.2-18.0)
--- NOTE | 2019-07-13 23:17 | Pulmonolgy Critical Care Note ---
Critical Care - Asmt/Plan Assessment/Plan: Pulmonary CCM Progress Note HPI This is a 39-year-old male who is an alcoholic with significant fatty liver on abdominal CT and alcoholic hepatitis, liver failure c/b multiorgan failure. He has been drinking heavily for 3 months straight, having stopped drinking [employer]. Noted to have Hepatic Encephalopathy and Hepatorenal Syndrome. Had significant hypernatremia, hypokalemia and acidosis, now on HD, s/p Paracentesis previously, GI bleeding today, s/p TFN On NC, BiPAP PRN, NGT, on Lactulose On Hemodialysis for worsening acidosis, uremia Less interactive today BP stable, Midodrine, PRN levophed to maintain BP Allergies: No Known Allergies Past Medical History: Alcohol abuse All Other Systems: negative except mentioned in HPI Physical Exam Vital Signs Noted General Appearance: Jaundiced, awake Head: normocephalic, atraumatic, HD catheter Eyes: bilateral eye PERRL, bilateral eye EOMI, bilateral eye scleral icterus ENT: moist mm Neck: no masses, no LN Respiratory: chest non-tender, lungs clear, normal breath sounds Cardiovascular: regular rate, rhythm, Normal HS1, HS2, no murmur, tachycardia Gastrointestinal: Obese, hepatomegaly, moderate distension, no mass, no rebound Musculoskeletal: moves all limbs Neurologic: responds to commands, awake Skin: jaundiced, mild edema Impression: Alcoholic hepatitis/fatty liver Liver failure GI bleeding Sepsis on antibiotics per ID Possible pneumonia Possible Cirrhosis Hepatorenal syndrome - worsening renal function - on HD Multiorgan Failure Poor prognosis Possible Portal Hypertension Hypernatremia improving Pancreatitis, alcoholic, acute Anemia Plan ICU management NPO except meds/NGT feeds Antibiotics per ID TFN PRN Aspiration precautions BiPAP PRN NC O2 GI/Renal following HD per Nephrology Pressors PRN Transfuse PRN Thiamine Monitor labs Adjust FIO2 - sats 90-96% Patient has extremely poor prognosis Ongoing attempts Labs: noted EKG: Rate: tachycardiac Rhythm: NSR ST Segments: other - NSST changes Chest X-Ray: possible left infiltrates, hypoventilatory exam, no consolidation , no effusion, no pneumothorax, CT abdomen pelvis: Severely enlarged liver and fatty liver. Mild ascites. Critical Care - Objective Last 24 Hour Vital Signs Date Time Temp Pulse Resp B/P (MAP) Pulse Ox O2 Delivery O2 Flow Rate FiO2 07/13/19 22:57 86 27 100 Facial 30 84 30 100 Bi-Pap 07/13/19 20:54 88 29 100 Facial 40 07/13/19 20:00 Nasal Cannula 2.0 07/13/19 20:00 40 20/19 19:43 98/47 20/19 19:35 Bi-Pap 07/13/19 19:30 124 32 98 Facial 40 124 07/13/19 19:25 76/41 07/13/ 19:00 94 28 103/52 (69) 96 2019 19:00 98/47 07/13/19 18:30 94 28 103/52 (69) 96 20/19 18:00 93 27 105/46 (65) 95 07/13/19 18:00 100/49 19 17:30 94 26 100/49 (66) 95 20/19 17:00 92 26 100/59 (73) 96 07/13/19 17:00 101/51 19 16:30 91 25 88/50 (63) 95 07/13/19 16:00 94 07/13/19 16:00 99.6 91 22 92/54 (67) 96 07/13/19 16:00 2.0 07/13/19 16:00 98/48 07/13/19 16:00 Nasal Cannula 2.0 07/13/19 15:30 92 24 99/46 (63) 96 07/13/19 15:07 85 20 99 Nasal Cannula 2.0 28 88 16 96 07/13/19 15:00 90 25 93/49 (64) 99 07/13/19 15:00 93/49 07/13/19 14:53 99/46 20/19 14:30 88 21 87/63 (71) 98 20 14:30 100/52 07/13/ 14:15 87 22 92/49 (63) 99 20/19 14:14 94/42 20/19 14:13 94/42 20/19 14:00 92/49 20/ 14:00 87 20 94/42 (59) 99 20/ 13:45 94/42 20/ 13:45 84 26 83/46 (58) 98 20/19 13:30 87 22 95/49 (64) 98 20/19 13:30 83/46 /20/19 13:15 86 22 91/45 (60) 98 20/19 13:15 91/45 20/19 13:00 91/45 20/19 13:00 85 21 96/60 (72) 98 /20/ 12:45 79/42 20/ 12:45 84 23 79/42 (54) 100 07/13/19 12:30 76/42 20/ 12:30 83 23 89/46 (60) 98 20 12:15 85 22 74/57 (63) 97 07/13/19 12:15 89/46 07/13/19 12:00 88 07/13/19 12:00 2.0 07/13/19 12:00 74/29 07/13/19 12:00 Nasal Cannula 2.0 07/13/19 12:00 98.4 86 22 83/43 (56) 98 07/13/19 11:45 86 21 77/41 (53) 97 07/13/19 11:45 83/43 07/13/ 11:30 77/41 20/ 11:30 84 16 88/43 (58) 97 07/13/ 11:17 84 26 100 Nasal Cannula 2.0 28 80 24 99 07/13/ 11:15 86 19 97/46 (63) 96 20/ 11:13 88/43 20/ 11:00 97/46 07/13/ 11:00 83 24 97/42 (60) 98 07/13/ 10:45 97/42 20/19 10:45 84 24 91/42 (58) 98 20/19 10:30 83 25 95/46 (62) 97 20/ 10:30 91/42 20/19 10:15 95/46 20/ 10:15 83 21 108/49 (68) 100 /20/19 10:00 83 20 98/46 (63) 98 /20/19 10:00 98/46 20/ 09:45 83 21 100/51 (67) 97 07/13/19 09:45 100/51 20 09:30 83 23 95/47 (63) 98 07/13/19 09:30 100/51 07/13/19 09:25 105/48 07/13/19 09:15 95/47 07/13/19 09:15 84 21 105/48 (67) 98 07/13/19 09:00 105/48 07/13/19 09:00 83 21 113/47 (69) 98 07/13/19 08:45 83 21 107/48 (67) 98 07/13/19 08:45 113/47 07/13/19 08:30 112/54 07/13/19 08:30 82 21 110/51 (70) 98 07/13/19 08:15 89/42 07/13/19 08:15 80 19 89/42 (58) 99 07/13/19 08:04 97 Nasal Cannula 2.0 28 07/13/19 08:00 98.6 80 19 81/34 (50) 100 07/13/19 08:00 2.0 07/13/19 08:00 88/41 07/13/19 08:00 82 07/13/19 08:00 Nasal Cannula 2.0 07/13/19 07:45 79 19 82/37 (52) 97 07/13/19 07:45 76/38 07/13/19 07:30 81 21 116/91 (99) 100 07/13/19 07:30 76/38 07/13/19 07:15 85 22 100/39 (59) 100 07/13/19 07:15 100/39 07/13/19 07:03 80 25 100 Bi-Pap 28 84 27 100 07/13/19 07:00 84 25 97/41 (59) 100 07/13/19 07:00 100/39 07/13/19 06:53 84 27 100 Facial 28 Bi-Pap 07/13/19 06:30 79 21 84/69 (74) 100 07/13/19 06:00 90/37 07/13/19 06:00 100/39 07/13/19 06:00 80 21 95/38 (57) 100 07/13/19 05:30 79 24 88/37 (54) 99 07/13/19 05:00 88/42 07/13/19 05:00 77 21 89/40 (56) 100 07/13/19 04:30 78 21 97/40 (59) 100 07/13/19 04:00 78 07/13/19 04:00 97.8 79 23 90/44 (59) 100 07/13/19 04:00 Nasal Cannula 2.0 07/13/19 04:00 96/38 07/13/19 04:00 28 07/13/19 03:04 81 24 100 Bi-Pap 28 79 25 100 07/13/19 03:03 79 25 100 Facial 28 79 25 100 Bi-Pap 28 07/13/19 03:00 92/39 07/13/19 02:00 93/47 07/13/19 01:00 78 25 100 Facial 28 07/13/19 01:00 95/42 07/13/19 01:00 81 24 95/42 (59) 99 07/13/19 00:30 82 25 93/48 (63) 99 07/13/19 00:00 98.2 82 24 93/52 (66) 99 07/13/19 00:00 93/52 07/13/19 00:00 Nasal Cannula 2.0 07/12/19 23:30 83 30 100 Facial 28 90 30 100 Bi-Pap 28 07/12/19 23:30 28 07/12/19 23:30 82 24 99/50 (66) 99 07/12/19 23:30 85 26 100 Bi-Pap 28 83 30 100 Micro: Microbiology Date/Time Source Procedure Growth Status 07/11/19 10:56 Stool Clostridium difficile Toxin Assay - Final Complete Critical Care - Subjective ROS Limited/Unobtainable: No FI02: 30 Vent Support Mode: BiLevel Sputum Amount: None Tube Feeding Amount: 20 I&O: Intake and Output 07/12/19 07/13/19 19:00 07:00 Intake Total 632.5 ml 902.78 ml Output Total 1000 ml 800 ml Balance -367.5 ml 102.78 ml Intake Oral 100 ml Free Water 100 ml IV Total 532.5 ml 702.78 ml Tube Feeding 100 ml Output Urine Total 0 ml 0 ml Stool Total 1000 ml 800 ml Quang Domingo MD Jul 13, 2019 23:17
[2019-07-14] VITALS (51 sets, daily range): BP systolic 81–127; BP diastolic 35–93
[2019-07-14] MEDS: Norepinephrine Bitartrate 8 MG in D5W 500ml 550 ML IV SCH ×5 (00:24→21:58)
[2019-07-14] MEDS: Albuterol/Ipratropium 3ml neb HHN SCH ×4 (03:08→14:31)
[2019-07-14 05:41] LABS: HEMATOCRIT 25.2 % (42.0-52.0); MEAN CORPUSCULAR VOLUME 95 FL (80-99); PLATELET COUNT 127 K/UL (150-450); RED BLOOD COUNT 2.67 M/UL (4.70-6.10); RED CELL DISTRIBUTION WIDTH 21.4 % (11.6-14.8)
[2019-07-14 05:46] LABS: WHITE BLOOD COUNT 44.7 K/UL (4.8-10.8)
[2019-07-14 06:35] LABS: ALANINE AMINOTRANSFERASE 15 U/L (12-78); ALBUMIN 1.8 G/DL (3.4-5.0); ALKALINE PHOSPHATASE 244 U/L (46-116); ASPARTATE AMINO TRANSFERASE 189 U/L (15-37); BILIRUBIN,DIRECT 30.6 MG/DL (0.0-0.3); BILIRUBIN,TOTAL 38.8 MG/DL (0.2-1.0)
[2019-07-14 06:37] LABS: ALANINE AMINOTRANSFERASE 17 U/L (12-78); ALBUMIN 1.8 G/DL (3.4-5.0); ALBUMIN/GLOBULIN RATIO 0.6 (1.0-2.7); ALKALINE PHOSPHATASE 242 U/L (46-116); ANION GAP 20 mmol/L (5-15); ASPARTATE AMINO TRANSFERASE 189 U/L (15-37); BILIRUBIN,TOTAL 37.7 MG/DL (0.2-1.0); BLOOD UREA NITROGEN 75 mg/dL (7-18); CALCIUM 6.8 MG/DL (8.5-10.1); CARBON DIOXIDE 18 MMOL/L (21-32); CHLORIDE 108 MMOL/L (98-107); CREATININE 9.1 MG/DL (0.55-1.30); POTASSIUM 3.3 MMOL/L (3.5-5.1); SODIUM 146 MMOL/L (136-145)
[2019-07-14] MEDS: Octreotide Acetate 500 MCG in Sodium Chloride 499 ML IV SCH ×2 (06:44→16:00)
[2019-07-14] MEDS ORDERED: Tubing IV Blood Pump IV ONE (08:38)
[2019-07-14] MEDS ORDERED: NS 275ml ONE (08:38)
[2019-07-14] MEDS ORDERED: Tubing IV Secondary IV ONE (08:38)
[2019-07-14] MEDS: Pantoprazole Inj IVP SCH ×2 (08:49→20:51)
[2019-07-14] MEDS: Cefepime HCl 1 GM in D5W 55 ML IVPB SCH (08:49)
[2019-07-14] MEDS: Lactulose 20gm/30ml UDC NG SCH ×4 (08:50→20:51)
[2019-07-14] MEDS: Thiamine 100mg tab ORAL SCH (08:50)
--- NOTE | 2019-07-14 09:13 | Surgery Progress Note ---
Surgery Progress Note Subjective Symptoms: other Objective Last 24 Hour Vital Signs Date Time Temp Pulse Resp B/P (MAP) Pulse Ox O2 Delivery O2 Flow Rate FiO2 07/14/19 08:00 99.3 88 24 113/63 (80) 96 07/14/19 08:00 113/63 07/14/19 08:00 2.0 07/14/19 07:01 96 Nasal Cannula 2.0 28 07/14/19 07:00 102/48 07/14/19 07:00 86 25 102/48 (66) 96 07/14/19 06:57 85 20 99 Nasal Cannula 2.0 28 87 23 97 07/14/19 06:18 87 25 103/50 (67) 96 07/14/19 06:00 84 31 102/50 (67) 96 07/14/19 06:00 100/47 07/14/19 05:45 83 27 103/51 (68) 97 07/14/19 05:40 101/56 07/14/19 05:30 87 29 101/56 (71) 97 07/14/19 05:15 85 21 102/47 (65) 99 07/14/19 05:00 87 22 103/45 (64) 98 07/14/19 05:00 102/47 07/14/19 04:30 84 27 98/44 (62) 99 07/14/19 04:15 85 21 104/47 (66) 98 07/14/19 04:00 Nasal Cannula 2.0 07/14/19 04:00 99.1 85 28 104/47 (66) 97 07/14/19 04:00 84 07/14/19 04:00 104/52 07/14/19 04:00 30 07/14/19 03:45 86 27 105/52 (69) 98 07/14/19 03:30 87 30 103/48 (66) 98 07/14/19 03:15 87 26 108/52 (70) 100 07/14/19 03:05 87 31 98 Facial 30 82 32 100 Bi-Pap 07/14/19 03:00 108/52 07/14/19 03:00 86 27 106/50 (68) 99 07/14/19 02:45 86 30 106/49 (68) 99 07/14/19 02:30 85 26 102/51 (68) 99 07/14/19 02:15 86 23 99/52 (68) 99 07/14/19 02:00 83 27 101/52 (68) 99 07/14/19 02:00 99/52 07/14/19 01:45 84 30 103/47 (65) 99 07/14/19 01:30 85 28 105/47 (66) 98 07/14/19 01:15 85 30 101/49 (66) 99 07/14/19 01:00 87 28 100/48 (65) 98 07/14/19 01:00 101/49 07/14/19 00:31 84 34 98 Facial 30 07/14/19 00:24 98/43 07/14/19 00:00 30 07/14/19 00:00 98/43 07/14/19 00:00 Nasal Cannula 2.0 07/14/19 00:00 89 07/13/19 23:45 85 28 102/50 (67) 100 07/13/19 23:30 85 26 102/48 (66) 99 07/13/19 23:15 88 29 104/49 (67) 99 07/13/19 23:00 104/49 07/13/19 23:00 86 27 99/45 (63) 100 07/13/19 22:57 86 27 100 Facial 30 84 30 100 Bi-Pap 07/13/19 22:45 88 28 100/47 (64) 100 07/13/19 22:30 86 28 93/49 (64) 100 07/13/19 22:15 88 26 97/45 (62) 99 07/13/19 22:00 97/45 07/13/19 22:00 86 29 98/44 (62) 99 07/13/19 21:45 89 26 101/49 (66) 99 07/13/19 21:30 89 26 101/49 (66) 99 07/13/19 21:15 90 28 100/48 (65) 99 07/13/19 21:00 101/49 07/13/19 21:00 90 27 103/47 (65) 100 07/13/19 20:54 88 29 100 Facial 40 07/13/19 20:45 88 29 101/47 (65) 100 07/13/19 20:30 90 27 99/47 (64) 100 07/13/19 20:15 91 30 100/46 (64) 100 07/13/19 20:00 98/48 07/13/19 20:00 Nasal Cannula 2.0 07/13/19 20:00 90 07/13/19 20:00 99.2 93 31 103/52 (69) 100 07/13/19 20:00 40 07/13/19 19:45 96 28 98/55 (69) 100 07/13/19 19:43 98/47 07/13/19 19:43 98/47 07/13/19 19:35 Bi-Pap 07/13/19 19:30 124 32 98 Facial 40 124 07/13/19 19:30 117 27 117/81 (93) 99 07/13/19 19:25 76/41 07/13/19 19:00 94 28 103/52 (69) 96 07/13/19 19:00 98/47 07/13/19 18:30 94 28 103/52 (69) 96 07/13/19 18:00 93 27 105/46 (65) 95 07/13/19 18:00 100/49 07/13/19 17:30 94 26 100/49 (66) 95 07/13/19 17:00 92 26 100/59 (73) 96 07/13/19 17:00 101/51 07/13/19 16:30 91 25 88/50 (63) 95 07/13/19 16:00 94 07/13/19 16:00 99.6 91 22 92/54 (67) 96 07/13/19 16:00 2.0 07/13/19 16:00 98/48 07/13/19 16:00 Nasal Cannula 2.0 07/13/19 15:30 92 24 99/46 (63) 96 07/13/19 15:07 85 20 99 Nasal Cannula 2.0 28 88 16 96 07/13/19 15:00 90 25 93/49 (64) 99 07/13/19 15:00 93/49 07/13/19 14:53 99/46 19 14:30 88 21 87/63 (71) 98 07/13/19 14:30 100/52 07/13/19 14:15 87 22 92/49 (63) 99 07/13/19 14:14 94/42 9/20/19 14:13 94/42 07/13/19 14:00 92/49 07/13/19 14:00 87 20 94/42 (59) 99 07/13/19 13:45 94/42 07/13/19 13:45 84 26 83/46 (58) 98 07/13/19 13:30 87 22 95/49 (64) 98 07/13/19 13:30 83/46 07/13/19 13:15 86 22 91/45 (60) 98 07/13/19 13:15 91/45 07/13/19 13:00 91/45 07/13/19 13:00 85 21 96/60 (72) 98 07/13/19 12:45 79/42 07/13/19 12:45 84 23 79/42 (54) 100 07/13/19 12:30 76/42 07/13/19 12:30 83 23 89/46 (60) 98 07/13/19 12:15 85 22 74/57 (63) 97 07/13/19 12:15 89/46 07/13/19 12:00 88 07/13/19 12:00 2.0 07/13/19 12:00 74/29 07/13/19 12:00 Nasal Cannula 2.0 07/13/19 12:00 98.4 86 22 83/43 (56) 98 07/13/19 11:45 86 21 77/41 (53) 97 07/13/19 11:45 83/43 07/13/19 11:30 77/41 07/13/19 11:30 84 16 88/43 (58) 97 07/13/19 11:17 84 26 100 Nasal Cannula 2.0 28 80 24 99 07/13/19 11:15 86 19 97/46 (63) 96 07/13/19 11:13 88/43 07/13/19 11:00 97/46 07/13/19 11:00 83 24 97/42 (60) 98 07/13/19 10:45 97/42 07/13/19 10:45 84 24 91/42 (58) 98 07/13/19 10:30 83 25 95/46 (62) 97 07/13/19 10:30 91/42 07/13/19 10:15 95/46 07/13/19 10:15 83 21 108/49 (68) 100 07/13/19 10:00 83 20 98/46 (63) 98 07/13/19 10:00 98/46 07/13/19 09:45 83 21 100/51 (67) 97 07/13/19 09:45 100/51 07/13/19 09:30 83 23 95/47 (63) 98 07/13/19 09:30 100/51 07/13/19 09:25 105/48 07/13/19 09:15 95/47 07/13/19 09:15 84 21 105/48 (67) 98 I&O Intake and Output 07/13/19 07/14/19 18:59 06:59 Intake Total 1844.5750 ml 2571.89 ml Output Total 1400 ml 250 ml Balance 444.5750 ml 2321.89 ml IV Total 1744.5750 ml 2521.89 ml Tube Feeding 20 ml Other 80 ml 50 ml Output Urine Total 0 ml 0 ml Stool Total 250 ml Hemodialysis UF 1400 ml Dressing: dry Wound: clean Cardiovascular: RSR Respiratory: clear, decreased breath sounds Abdomen: soft, present bowel sounds Extremities: edema, no cyanosis Laboratory Tests Test 07/13/19 11:20 07/13/19 21:30 07/14/19 04:50 Prothrombin Time 24.0 SEC (9.30-11.50) H 20.1 SEC (9.30-11.50) H Prothromb Time International Ratio 2.4 (0.9-1.1) H 2.0 (0.9-1.1) H Activated Partial Thromboplast Time 65 SEC (23-33) H Fibrinogen 230 mg/dL (200-400) White Blood Count 40.8 K/UL (4.8-10.8) *H 44.7 K/UL (4.8-10.8) *H Red Blood Count 2.19 M/UL (4.70-6.10) L 2.67 M/UL (4.70-6.10) L Hemoglobin 6.8 G/DL (14.2-18.0) *L 8.0 G/DL (14.2-18.0) L Hematocrit 20.7 % (42.0-52.0) L 25.2 % (42.0-52.0) L Mean Corpuscular Volume 95 FL (80-99) 95 FL (80-99) Mean Corpuscular Hemoglobin 31.1 PG (27.0-31.0) H 30.0 PG (27.0-31.0) Mean Corpuscular Hemoglobin Concent 32.8 G/DL (32.0-36.0) 31.7 G/DL (32.0-36.0) L Red Cell Distribution Width 21.8 % (11.6-14.8) H 21.4 % (11.6-14.8) H Platelet Count 104 K/UL (150-450) L 127 K/UL (150-450) L Mean Platelet Volume 10.8 FL (6.5-10.1) H 12.0 FL (6.5-10.1) H Neutrophils (%) (Auto) % (45.0-75.0) % (45.0-75.0) Lymphocytes (%) (Auto) % (20.0-45.0) % (20.0-45.0) Monocytes (%) (Auto) % (1.0-10.0) % (1.0-10.0) Eosinophils (%) (Auto) % (0.0-3.0) % (0.0-3.0) Basophils (%) (Auto) % (0.0-2.0) % (0.0-2.0) Differential Total Cells Counted 100 100 Neutrophils % (Manual) 80 % (45-75) H 79 % (45-75) H Lymphocytes % (Manual) 12 % (20-45) L 5 % (20-45) L Monocytes % (Manual) 2 % (1-10) 7 % (1-10) Eosinophils % (Manual) 2 % (0-3) 2 % (0-3) Basophils % (Manual) 0 % (0-2) 0 % (0-2) Band Neutrophils 4 % (0-8) 7 % (0-8) Platelet Estimate Decreased L Decreased L Platelet Morphology Normal Normal Polychromasia 1+ Anisocytosis 2+ 2+ Hypochromasia 1+ Sodium Level 146 MMOL/L (136-145) H Potassium Level 3.3 MMOL/L (3.5-5.1) L Chloride Level 108 MMOL/L (98-107) H Carbon Dioxide Level 18 MMOL/L (21-32) L Anion Gap 20 mmol/L (5-15) H Blood Urea Nitrogen 75 mg/dL (7-18) H Creatinine 9.1 MG/DL (0.55-1.30) H Estimat Glomerular Filtration Rate 6.5 mL/min (>60) Glucose Level 173 MG/DL (74-106) H Calcium Level 6.8 MG/DL (8.5-10.1) L Total Bilirubin 38.8 MG/DL (0.2-1.0) H Direct Bilirubin 30.6 MG/DL (0.0-0.3) H Aspartate Amino Transf (AST/SGOT) 189 U/L (15-37) H Alanine Aminotransferase (ALT/SGPT) 15 U/L (12-78) Alkaline Phosphatase 244 U/L (46-116) H Ammonia 100 umol/L (11-32) H Total Protein 5.0 G/DL (6.4-8.2) L Albumin 1.8 G/DL (3.4-5.0) L Globulin 3.2 g/dL Albumin/Globulin Ratio 0.6 (1.0-2.7) L Plan Problems: (1) Pancreatitis, alcoholic, acute Assessment & Plan: Acute alcoholic pancreatitis. Levels fluctuating. Plan to check levels tomorrow Treat medically and conservatively for now If worsening leukocytosis may consider CT scan (2) Hepatorenal syndrome Assessment & Plan: Chronic liver disease acute, with acute pancreatitis and potential about her renal syndrome as noted. Currently stable treat conservatively no acute surgical intervention recommended Unfortunately invasive techniques not available at this facility Continue with ICU care and management (3) Respiratory failure (4) skin intergrety Assessment & Plan: Pt noted to have dry eschar bridge of nose. Periwound without erythema or fluctuance. Shearing noted to R and L clefts of buttocks. No exudate noted. Both heels firm and blanchable. Tx.Plan: Swab bridge of nose with Benzoin Tincture Twice Daily. Apply Moisture Barrier Paste to buttocks with each perineal care. Apply Cavilon Skin Barrier to both heels. Cover each heel with Optifoam drsg. Change every 7 days and prn. APM/MATTHEW mattress overlay. Reposition at least every 2hours or as tolerated. Off-load heels with pillow. (5) End-stage liver disease Assessment & Plan: DAILY ESTIMATED NEEDS: Needs based on Liver dz, 79kg adj 25-30 kcals/kg 5930-0168 total kcals 1-1.5 (w/ HD 1.2-1.8) g protein/kg 79-119g (w/ HD 95-142g) g total protein Fluid per MD NUTRITION DIAGNOSIS: * Decreased sodium and fat needs r/t liver disease, cirrhosis, acute pancreatitis as evidenced by Abd US, elev T bili (33.5), pt is jaundiced, fatty liver, elev ammonia and AST, elev lipse (643), h/o etoh abuse, adm w/ elev serum alcohol. * Swallowing difficulty R/T confusion, dysphagia as evidenced by NGT feeding initiated, seen by [employer] SUPER[employer]OR w/ rec to continue nonoral feeds at this time. CURRENT TF: NEPRO @45 + PS x1 PO DIET RECOMMENDATIONS: WHEN SAFE FOR ORAL FEEDING -> LOW NA/ LOW FAT (texture per [employer]PER[employer]OR) ENTERAL NUTRITION RECOMMENDATIONS: MAINTAIN NEPRO W/ DIALYSIS TXT: Nepro @45ml/hr x24 hrs + PS x1 to provide 1080ml, 1944 kcal, 87g pro, 785ml free H20 * Maintain Nepro @45ml/hr as tolerated. * Add Prosource x1 pack daily to better meet est pro needs on HD * HOB over 30 degrees/ water flush per MD ADDITIONAL RECOMMENDATIONS: 1) Calibrated bedscale wt 2) Monitor for ability to start oral feeding 3) Check lytes daily 4) Rec to re-add thiamine + Folate daily, add MVI x 1 5) REC TF CHANGE TO NEPRO W/ DIALYSIS TXT 6) Monitor BGs closely, need for hypoglycemics (6) Acute alcoholic intoxication Kennedy Ellison Jul 14, 2019 09:13
--- NOTE | 2019-07-14 09:54 | Nephrology Progress Note ---
Assessment/Plan Problem List: (1) End-stage liver disease (2) Hepatorenal syndrome (3) Pancreatitis, alcoholic, acute (4) Acute alcoholic intoxication (5) Anemia (6) Respiratory failure (7) Hypernatremia Assessment Acute alcoholic intoxication End-stage liver disease Hepatorenal syndrome Pancreatitis, alcoholic, acute Anemia Plan Hypotensive- on pressors not tolerated dialysis last time due to low BP 07/13 K supplement trial paracenthesis done I CONSIDER TREATMENT OF THIS PATIENT TO BE FUTILE correct low K per orders on 06/28/19 met with Brother- Lilianara zonia [employer] Brother will discuss with family regarding DNR and comfort care Subjective ROS Limited/Unobtainable: Yes Objective Objective Last 24 Hour Vital Signs Date Time Temp Pulse Resp B/P (MAP) Pulse Ox O2 Delivery O2 Flow Rate FiO2 07/14/19 08:00 99.3 88 24 113/63 (80) 96 07/14/19 08:00 113/63 07/14/19 08:00 2.0 07/14/19 07:01 96 Nasal Cannula 2.0 28 07/14/19 07:00 102/48 07/14/19 07:00 86 25 102/48 (66) 96 07/14/19 06:57 85 20 99 Nasal Cannula 2.0 28 87 23 97 07/14/19 06:18 87 25 103/50 (67) 96 07/14/19 06:00 84 31 102/50 (67) 96 07/14/19 06:00 100/47 07/14/19 05:45 83 27 103/51 (68) 97 07/14/19 05:40 101/56 07/14/19 05:30 87 29 101/56 (71) 97 07/14/19 05:15 85 21 102/47 (65) 99 07/14/19 05:00 87 22 103/45 (64) 98 07/14/19 05:00 102/47 07/14/19 04:30 84 27 98/44 (62) 99 07/14/19 04:15 85 21 104/47 (66) 98 07/14/19 04:00 Nasal Cannula 2.0 07/14/19 04:00 99.1 85 28 104/47 (66) 97 07/14/19 04:00 84 07/14/19 04:00 104/52 07/14/19 04:00 30 07/14/19 03:45 86 27 105/52 (69) 98 07/14/19 03:30 87 30 103/48 (66) 98 07/14/19 03:15 87 26 108/52 (70) 100 07/14/19 03:05 87 31 98 Facial 30 82 32 100 Bi-Pap 07/14/19 03:00 108/52 07/14/19 03:00 86 27 106/50 (68) 99 07/14/19 02:45 86 30 106/49 (68) 99 07/14/19 02:30 85 26 102/51 (68) 99 07/14/19 02:15 86 23 99/52 (68) 99 07/14/19 02:00 83 27 101/52 (68) 99 07/14/19 02:00 99/52 07/14/19 01:45 84 30 103/47 (65) 99 07/14/19 01:30 85 28 105/47 (66) 98 07/14/19 01:15 85 30 101/49 (66) 99 07/14/19 01:00 87 28 100/48 (65) 98 07/14/19 01:00 101/49 07/14/19 00:31 84 34 98 Facial 30 07/14/19 00:24 98/43 07/14/19 00:00 30 07/14/19 00:00 98/43 07/14/19 00:00 Nasal Cannula 2.0 07/14/19 00:00 89 07/13/19 23:45 85 28 102/50 (67) 100 07/13/19 23:30 85 26 102/48 (66) 99 07/13/19 23:15 88 29 104/49 (67) 99 07/13/19 23:00 104/49 07/13/19 23:00 86 27 99/45 (63) 100 07/13/19 22:57 86 27 100 Facial 30 84 30 100 Bi-Pap 07/13/19 22:45 88 28 100/47 (64) 100 07/13/19 22:30 86 28 93/49 (64) 100 07/13/19 22:15 88 26 97/45 (62) 99 07/13/19 22:00 97/45 07/13/19 22:00 86 29 98/44 (62) 99 19 21:45 89 26 101/49 (66) 99 07/13/19 21:30 89 26 101/49 (66) 99 20/19 21:15 90 28 100/48 (65) 99 2019 21:00 101/49 07/13/19 21:00 90 27 103/47 (65) 100 07/13/19 20:54 88 29 100 Facial 40 07/13/19 20:45 88 29 101/47 (65) 100 2019 20:30 90 27 99/47 (64) 100 07/13/19 20:15 91 30 100/46 (64) 100 07/13/19 20:00 98/48 07/13/19 20:00 Nasal Cannula 2.0 07/13/19 20:00 90 07/13/19 20:00 99.2 93 31 103/52 (69) 100 07/13/19 20:00 40 07/13/19 19:45 96 28 98/55 (69) 100 07/13/19 19:43 98/47 07/13/19 19:43 98/47 07/13/19 19:35 Bi-Pap 07/13/19 19:30 124 32 98 Facial 40 124 07/13/19 19:30 117 27 117/81 (93) 99 19 19:25 76/41 07/13/19 19:00 94 28 103/52 (69) 96 2019 19:00 98/47 07/13/19 18:30 94 28 103/52 (69) 96 07/13/19 18:00 93 27 105/46 (65) 95 07/13/19 18:00 100/49 07/13/19 17:30 94 26 100/49 (66) 95 20/19 17:00 92 26 100/59 (73) 96 20/19 17:00 101/51 19 16:30 91 25 88/50 (63) 95 2019 16:00 94 07/13/19 16:00 99.6 91 22 92/54 (67) 96 07/13/19 16:00 2.0 07/13/19 16:00 98/48 07/13/19 16:00 Nasal Cannula 2.0 07/13/19 15:30 92 24 99/46 (63) 96 07/13/19 15:07 85 20 99 Nasal Cannula 2.0 28 88 16 96 07/13/19 15:00 90 25 93/49 (64) 99 20 15:00 93/49 07/13/19 14:53 99/46 07/13/19 14:30 88 21 87/63 (71) 98 07/13/19 14:30 100/52 07/13/19 14:15 87 22 92/49 (63) 99 07/13/19 14:14 94/42 07/13/19 14:13 94/42 07/13/19 14:00 92/49 07/13/19 14:00 87 20 94/42 (59) 99 07/13/19 13:45 94/42 07/13/19 13:45 84 26 83/46 (58) 98 07/13/19 13:30 87 22 95/49 (64) 98 07/13/19 13:30 83/46 07/13/19 13:15 86 22 91/45 (60) 98 07/13/19 13:15 91/45 07/13/19 13:00 91/45 07/13/19 13:00 85 21 96/60 (72) 98 07/13/19 12:45 79/42 07/13/19 12:45 84 23 79/42 (54) 100 07/13/19 12:30 76/42 07/13/19 12:30 83 23 89/46 (60) 98 07/13/19 12:15 85 22 74/57 (63) 97 07/13/19 12:15 89/46 07/13/19 12:00 88 07/13/19 12:00 2.0 07/13/19 12:00 74/29 07/13/19 12:00 Nasal Cannula 2.0 07/13/19 12:00 98.4 86 22 83/43 (56) 98 07/13/19 11:45 86 21 77/41 (53) 97 07/13/19 11:45 83/43 07/13/19 11:30 77/41 07/13/19 11:30 84 16 88/43 (58) 97 07/13/19 11:17 84 26 100 Nasal Cannula 2.0 28 80 24 99 07/13/19 11:15 86 19 97/46 (63) 96 07/13/19 11:13 88/43 07/13/19 11:00 97/46 07/13/19 11:00 83 24 97/42 (60) 98 07/13/19 10:45 97/42 07/13/19 10:45 84 24 91/42 (58) 98 07/13/19 10:30 83 25 95/46 (62) 97 07/13/19 10:30 91/42 07/13/19 10:15 95/46 07/13/19 10:15 83 21 108/49 (68) 100 07/13/19 10:00 83 20 98/46 (63) 98 07/13/19 10:00 98/46 Intake and Output 07/13/19 07/14/19 18:59 06:59 Intake Total 1844.5750 ml 2571.89 ml Output Total 1400 ml 250 ml Balance 444.5750 ml 2321.89 ml IV Total 1744.5750 ml 2521.89 ml Tube Feeding 20 ml Other 80 ml 50 ml Output Urine Total 0 ml 0 ml Stool Total 250 ml Hemodialysis UF 1400 ml Laboratory Tests 07/13/19 11:20: Prothrombin Time 24.0H, Prothromb Time International Ratio 2.4H, Activated Partial Thromboplast Time 65H, Fibrinogen 230 07/13/19 21:30: White Blood Count 40.8*H, Red Blood Count 2.19L, Hemoglobin 6.8*L, Hematocrit 20.7L, Mean Corpuscular Volume 95, Mean Corpuscular Hemoglobin 31.1H, Mean Corpuscular Hemoglobin Concent 32.8, Red Cell Distribution Width 21.8H, Platelet Count 104L, Mean Platelet Volume 10.8H, Neutrophils (%) (Auto) , Lymphocytes (%) (Auto) , Monocytes (%) (Auto) , Eosinophils (%) (Auto) , Basophils (%) (Auto) , Differential Total Cells Counted 100, Neutrophils % ( Manual) 80H, Lymphocytes % (Manual) 12L, Monocytes % (Manual) 2, Eosinophils % ( Manual) 2, Basophils % (Manual) 0, Band Neutrophils 4, Platelet Estimate DecreasedL, Platelet Morphology Normal, Polychromasia 1+, Anisocytosis 2+ 07/14/19 04:50: Prothrombin Time 20.1H, Prothromb Time International Ratio 2.0H, White Blood Count 44.7*H, Red Blood Count 2.67L, Hemoglobin 8.0L, Hematocrit 25.2L, Mean Corpuscular Volume 95, Mean Corpuscular Hemoglobin 30.0, Mean Corpuscular Hemoglobin Concent 31.7L, Red Cell Distribution Width 21.4H, Platelet Count 127L , Mean Platelet Volume 12.0H, Neutrophils (%) (Auto) , Lymphocytes (%) (Auto) , Monocytes (%) (Auto) , Eosinophils (%) (Auto) , Basophils (%) (Auto) , Differential Total Cells Counted 100, Neutrophils % (Manual) 79H, Lymphocytes % (Manual) 5L, Monocytes % (Manual) 7, Eosinophils % (Manual) 2, Basophils % ( Manual) 0, Band Neutrophils 7, Platelet Estimate DecreasedL, Platelet Morphology Normal, Anisocytosis 2+, Hypochromasia 1+, Sodium Level 146H, Potassium Level 3.3L, Chloride Level 108H, Carbon Dioxide Level 18L, Anion Gap 20H, Blood Urea Nitrogen 75H, Creatinine 9.1H, Estimat Glomerular Filtration Rate 6.5, Glucose Level 173H, Calcium Level 6.8L, Total Bilirubin 38.8H, Direct Bilirubin 30.6H, Aspartate Amino Transf (AST/SGOT) 189H, Alanine Aminotransferase (ALT/SGPT) 15, Alkaline Phosphatase 244H, Ammonia 100H, Total Protein 5.0L, Albumin 1.8L, Globulin 3.2, Albumin/Globulin Ratio 0.6L Height (Feet): 5 Height (Inches): 9.00 Weight (Pounds): 232 General Appearance: mild distress EENT: other - deeply jaundiced Respiratory/Chest: decreased breath sounds Abdomen: distended Arthur Lay MD Jul 14, 2019 09:54
[2019-07-14] MEDS: D5 1/2NS 1,000 ML IV SCH (11:10)
--- NOTE | 2019-07-14 12:24 | Pulmonolgy Critical Care Note ---
Critical Care - Asmt/Plan Assessment/Plan: Pulmonary CCM Progress Note HPI This is a 39-year-old male who is an alcoholic with significant fatty liver on abdominal CT and alcoholic hepatitis, liver failure c/b multiorgan failure. He has been drinking heavily for 3 months straight, having stopped drinking [employer]. Noted to have Hepatic Encephalopathy and Hepatorenal Syndrome. Had significant hypernatremia, hypokalemia and acidosis, now on HD, s/p Paracentesis previously, GI bleeding today, s/p TFN On NC, BiPAP PRN, NGT, on Lactulose On Hemodialysis for worsening acidosis, uremia More interactive today BP stable, Midodrine, PRN levophed to maintain BP Allergies: No Known Allergies Past Medical History: Alcohol abuse All Other Systems: negative except mentioned in HPI Physical Exam Vital Signs Noted General Appearance: Jaundiced, awake Head: normocephalic, atraumatic, HD catheter Eyes: bilateral eye PERRL, bilateral eye EOMI, bilateral eye scleral icterus ENT: moist mm Neck: no masses, no LN Respiratory: chest non-tender, lungs clear, normal breath sounds Cardiovascular: regular rate, rhythm, Normal HS1, HS2, no murmur, tachycardia Gastrointestinal: Obese, hepatomegaly, moderate distension, no mass, no rebound Musculoskeletal: moves all limbs Neurologic: responds to commands, awake Skin: jaundiced, mild edema Impression: Alcoholic hepatitis/fatty liver Liver failure GI bleeding Sepsis on antibiotics per ID Possible pneumonia Possible Cirrhosis Hepatorenal syndrome - worsening renal function - on HD Multiorgan Failure Poor prognosis Possible Portal Hypertension Hypernatremia improving Pancreatitis, alcoholic, acute Anemia Plan ICU management NPO except meds/NGT feeds Antibiotics per ID TFN PRN Aspiration precautions BiPAP PRN NC O2 GI/Renal following HD per Nephrology Pressors PRN Transfuse PRN Thiamine Monitor labs Adjust FIO2 - sats 90-96% Patient has poor prognosis Labs: noted EKG: Rate: tachycardiac Rhythm: NSR ST Segments: other - NSST changes Chest X-Ray: possible left infiltrates, hypoventilatory exam, no consolidation , no effusion, no pneumothorax, CT abdomen pelvis: Severely enlarged liver and fatty liver. Mild ascites. Dr Huitron will be covering fo Pulmonary issues from afternoon 07/14/2019 to 07/17 Critical Care - Objective Last 24 Hour Vital Signs Date Time Temp Pulse Resp B/P (MAP) Pulse Ox O2 Delivery O2 Flow Rate FiO2 07/14/19 11:05 85/39 07/14/19 11:00 87 29 81/63 (69) 98 07/14/19 10:31 72 22 99 Nasal Cannula 2.0 28 84 26 98 07/14/19 10:30 84 24 97/49 (65) 100 07/14/19 10:00 85 96/41 (59) 97 07/14/19 09:00 84 29 101/51 (68) 96 07/14/19 08:00 Nasal Cannula 2.0 07/14/19 08:00 99.3 88 24 113/63 (80) 96 07/14/19 08:00 113/63 07/14/19 08:00 2.0 07/14/19 07:01 96 Nasal Cannula 2.0 28 07/14/19 07:00 102/48 07/14/19 07:00 86 25 102/48 (66) 96 07/14/19 06:57 85 20 99 Nasal Cannula 2.0 28 87 23 97 07/14/19 06:18 87 25 103/50 (67) 96 07/14/19 06:00 84 31 102/50 (67) 96 07/14/19 06:00 100/47 07/14/19 05:45 83 27 103/51 (68) 97 07/14/19 05:40 101/56 07/14/19 05:30 87 29 101/56 (71) 97 07/14/19 05:15 85 21 102/47 (65) 99 07/14/19 05:00 87 22 103/45 (64) 98 07/14/19 05:00 102/47 07/14/19 04:30 84 27 98/44 (62) 99 07/14/19 04:15 85 21 104/47 (66) 98 07/14/19 04:00 Nasal Cannula 2.0 07/14/19 04:00 99.1 85 28 104/47 (66) 97 07/14/19 04:00 84 07/14/19 04:00 104/52 07/14/19 04:00 30 07/14/19 03:45 86 27 105/52 (69) 98 07/14/19 03:30 87 30 103/48 (66) 98 07/14/19 03:15 87 26 108/52 (70) 100 07/14/19 03:05 87 31 98 Facial 30 82 32 100 Bi-Pap 07/14/19 03:00 108/52 07/14/19 03:00 86 27 106/50 (68) 99 07/14/19 02:45 86 30 106/49 (68) 99 07/14/19 02:30 85 26 102/51 (68) 99 07/14/19 02:15 86 23 99/52 (68) 99 07/14/19 02:00 83 27 101/52 (68) 99 07/14/19 02:00 99/52 07/14/19 01:45 84 30 103/47 (65) 99 07/14/19 01:30 85 28 105/47 (66) 98 07/14/19 01:15 85 30 101/49 (66) 99 07/14/19 01:00 87 28 100/48 (65) 98 07/14/19 01:00 101/49 07/14/19 00:31 84 34 98 Facial 30 07/14/19 00:24 98/43 07/14/19 00:00 30 07/14/19 00:00 98/43 07/14/19 00:00 Nasal Cannula 2.0 07/14/19 00:00 89 07/13/19 23:45 85 28 102/50 (67) 100 07/13/19 23:30 85 26 102/48 (66) 99 07/13/19 23:15 88 29 104/49 (67) 99 07/13/19 23:00 104/49 07/13/19 23:00 86 27 99/45 (63) 100 07/13/19 22:57 86 27 100 Facial 30 84 30 100 Bi-Pap 07/13/19 22:45 88 28 100/47 (64) 100 07/13/19 22:30 86 28 93/49 (64) 100 07/13/19 22:15 88 26 97/45 (62) 99 07/13/19 22:00 97/45 07/13/19 22:00 86 29 98/44 (62) 99 07/13/19 21:45 89 26 101/49 (66) 99 07/13/19 21:30 89 26 101/49 (66) 99 07/13/19 21:15 90 28 100/48 (65) 99 2019 21:00 101/49 07/13/19 21:00 90 27 103/47 (65) 100 2019 20:54 88 29 100 Facial 40 07/13/19 20:45 88 29 101/47 (65) 100 19 20:30 90 27 99/47 (64) 100 07/13/19 20:15 91 30 100/46 (64) 100 2019 20:00 98/48 07/13/19 20:00 Nasal Cannula 2.0 07/13/19 20:00 90 07/13/19 20:00 99.2 93 31 103/52 (69) 100 07/13/19 20:00 40 07/13/19 19:45 96 28 98/55 (69) 100 07/13/19 19:43 98/47 07/13/19 19:43 98/47 07/13/19 19:35 Bi-Pap 07/13/19 19:30 124 32 98 Facial 40 124 07/13/19 19:30 117 27 117/81 (93) 99 2019 19:25 76/41 07/13/19 19:00 94 28 103/52 (69) 96 20/19 19:00 98/47 19 18:30 94 28 103/52 (69) 96 19 18:00 93 27 105/46 (65) 95 19 18:00 100/49 19 17:30 94 26 100/49 (66) 95 2019 17:00 92 26 100/59 (73) 96 20/19 17:00 101/51 07/13/19 16:30 91 25 88/50 (63) 95 20/19 16:00 94 19 16:00 99.6 91 22 92/54 (67) 96 07/13/19 16:00 2.0 19 16:00 98/48 19 16:00 Nasal Cannula 2.0 07/13/19 15:30 92 24 99/46 (63) 96 07/13/19 15:07 85 20 99 Nasal Cannula 2.0 28 88 16 96 07/13/19 15:00 90 25 93/49 (64) 99 07/13/19 15:00 93/49 07/13/19 14:53 99/46 07/13/19 14:30 88 21 87/63 (71) 98 07/13/19 14:30 100/52 07/13/19 14:15 87 22 92/49 (63) 99 07/13/19 14:14 94/42 07/13/19 14:13 94/42 07/13/19 14:00 92/49 07/13/19 14:00 87 20 94/42 (59) 99 07/13/19 13:45 94/42 07/13/19 13:45 84 26 83/46 (58) 98 07/13/19 13:30 87 22 95/49 (64) 98 07/13/19 13:30 83/46 07/13/19 13:15 86 22 91/45 (60) 98 07/13/19 13:15 91/45 07/13/19 13:00 91/45 07/13/19 13:00 85 21 96/60 (72) 98 07/13/19 12:45 79/42 07/13/19 12:45 84 23 79/42 (54) 100 07/13/19 12:30 76/42 07/13/19 12:30 83 23 89/46 (60) 98 Critical Care - Subjective ROS Limited/Unobtainable: No FI02: 28 Vent Support Mode: BiLevel Sputum Amount: None Tube Feeding Amount: 20 I&O: Intake and Output 07/13/19 07/14/19 19:00 07:00 Intake Total 1981.5350 ml 2563.52 ml Output Total 1400 ml 250 ml Balance 581.5350 ml 2313.52 ml IV Total 1901.5350 ml 2513.52 ml Other 80 ml 50 ml Output Urine Total 0 ml 0 ml Stool Total 250 ml Hemodialysis UF 1400 ml Quang Domingo MD Jul 14, 2019 12:24
--- NOTE | 2019-07-14 12:52 | Hematology/Onc Progress Note ---
Assessment/Plan Assessment/Plan Assessment and Recs: # Thrombocytopenia - potential causes multifactorial, does have a history of etoh abuse, cirrhosis of the liver, hepatosplenomegaly, portal HTN, coagulopathy noted as well, likely oscillatory pattern can be due to abx as well. Hep panel and HIV ordered (NEG) --> US abd does show, portal htn and cirrhosis ++ --> Peripheral smear ordered to evaluate for blasts /schistocytes reviewed and is negative --> abx and other meds have been reviewed --> ok for ppx if plt >50k w/ either heparin or lovenox --> Transfuse if Plt < 20k and fever, or if Plt < 10k without fever --> plt trend 80-->97-->117-->157k->216k-->107k-->72k-->68k-->109k-->108k-->148k -->176k-->182k->141k-->128k-->148k-->152 --> ffp tx: 07/13 # Anemia of chronic disease due to underlying chronic medical issues, multifactorial (myelosuprresion noted) --> Anemia workup has been reviewed, ferritin 297 --> EPOGEN HAS BEEN ORDERED WITH HD --> Hgb goal >7. Transfuse prn. --> Medications have been reviewed --> low threshold for gi evaluation in case has occult + --> hgb trend: 7.7-->8.2-->9->8.4-->8.3-->8.2-->8-->7.4->7.3-->7.7-->7.8-->7.6-- >8.1->7.5-->7.8 --> serum electrophoresis shows no m-spike 06/27 --> cont thiamine --> blood tx: 2 units 07/13 # Coagulopathy due to cirrhosis --> give Vitk as needed # Leukocytosis with sepsis is on abx --> ID following, appreciate recs --> wbc trend: 17k-->13.9-->19.5-->18.7-->27.4-->33.6->32--->33-->30-->34-->44.1 --> FLAGYL and CTX-> vanc/amish-->cefe # Acute alcoholic intoxication --> etoh abuse history --> thiamine, folic acid, ivf # End-stage liver disease --> Hepatorenal syndrome r/o with renal, albumin prn # Pancreatitis, alcoholic, acute # Tachycardia # ESRD --> on hd as per renal # Dvt ppx with scds given low plts # POOR PROGNOSIS The timing of this note does not necessarily reflect the time of the patient was seen. GREATLY APPRECIATE CONSULTATION. Subjective Cardiovascular: Denies: no symptoms, chest pain, edema, irregular heart rate, lightheadedness, palpitations, syncope, other Respiratory: Denies: no symptoms, cough, shortness of breath, SOB with excertion, SOB at rest, sputum, wheezing, other Gastrointestinal/Abdominal: Denies: no symptoms, abdomen distended, abdominal pain, black stools, tarry stools, blood in stool, constipated, diarrhea, difficulty swallowing, nausea, poor appetite, poor fluid intake, rectal bleeding , vomiting, other Genitourinary: Denies: no symptoms, burning, discharge, frequency, flank pain, hematuria, incontinence, pain, urgency, other Neurologic/Psychiatric: Denies: no symptoms, anxiety, depressed, emotional problems, headache, numbness, paresthesia, pre-existing deficit, seizure, tingling, tremors, weakness, other Allergies: Coded Allergies: No Known Allergies (Unverified , 06/20/19) Subjective 06/21: low k, ferritin 297, h/h stable, afebrile, blood transfused 06/22: in icu, on restraints, labs reviewed, no f/c, imaging reviewed 06/23: pain meds given, remains in icu, again in restraints, bili higher, inr as well, given vitk 06/25: no fevers, no chills, no bleeding, confused in bed in icu 06/26: no events to report, no bleeding, remains in icu, ++ bipap 06/27: icu,s/p paracentesis yesterday, off pressors, h/h stable 06/28: on ctx/flagyl, remains confused, no bleeding, plt is lower 06/29: no f/c, on abx, no acute events, no distress, labs reviewed 06/30: remains in the icu, on abx, no f/c, scds+ 07/02: remains in the icu, no fevers or chills, prbc ordered, as well as epo 07/03: remains in the icu, on restraints, on abx, labs noted, vs stable, no acute events 07/04: dw team and agree patient with very poor prognosis, pending bioethics consult 07/05: remains in icu, very poor prognosis, labs noted wbc 27.4, off bipap receiving repiratory tx 07/06: remains icu, very poor prognosis, wbc 33.6 trending up, no f/c, vs stable , on bipap, paracentesis pending 07/08: remains in the icu, labs look worse, though repsonding better this am, able to raise hands 07/09: no events, hd was done, no events, labs noted, no bleeding 07/10: remains borderline in re to mental status, no f/c, no bleeding in the icu 07/11: no events to report, is on lactulose, xiafan, para ordered 07/12: a+o x 1, no bleeding, chills, night sweats, no major changes 07/13: hgb 6.4, 2 units prbc ordered, on pressors, hd for today, remains ill looking 07/14: no bleeding or chills, no night sweats, wbc is 45k, on abx, on cefepime Objective Objective Current Medications Medications (Trade) Dose Ordered Sig/Gabriela Route PRN Reason Start Time Stop Time Status Last Admin Dose Admin Albuterol/ Ipratropium (Albuterol/ Ipratropium) 3 ml Q4HRT HHN 07/09/19 15:30 07/14/19 15:29 07/14/19 10:31 Cefepime HCl 1 gm/ Dextrose 55 ml @ 110 mls/hr Q24H IVPB 07/13/19 08:00 07/20/19 07:59 07/14/19 08:49 Chlorhexidine Gluconate (Emilie-Hex 2%) 1 applic DAILY@2000 TOPIC 06/26/19 20:00 07/26/19 19:59 07/13/19 21:21 Dextrose/Sodium Chloride 1,000 ml @ 40 mls/hr Q24H IV 07/13/19 12:45 08/12/19 12:44 07/14/19 11:10 Dopamine HCl/ Dextrose 250 ml @ 0 mls/hr Q24H IV 06/30/19 14:53 07/30/19 14:52 07/13/19 19:25 Epoetin Michael (Epoetin Michael(ESRD on dialysis)) 2,000 unit TUE-TUE-TUE SUBQ 07/02/19 21:00 08/01/19 20:59 07/13/19 21:22 Epoetin Michael (Epoetin Michael(ESRD on dialysis)) 3,000 unit TUE- SUBQ 07/02/19 21:00 08/01/19 20:59 07/13/19 21:22 Lactulose (Cephulac) 30 gm FOUR TIMES A DAY NG 07/01/19 09:00 07/20/19 12:59 07/14/19 08:50 Multivitamins (Multivitamins) 1 tab DAILY ORAL 07/10/19 09:00 08/09/19 08:59 07/14/19 08:50 Norepinephrine Bitartrate 8 mg/ Dextrose 558 ml @ 0 mls/hr Q24H IV 07/12/19 21:30 08/11/19 21:29 07/14/19 11:05 Octreotide Acetate 500 mcg/ Sodium Chloride 500 ml @ 50 mls/hr Q10H IV 07/13/19 10:30 08/12/19 10:29 07/14/19 06:44 Pantoprazole (Protonix) 40 mg EVERY 12 HOURS IVP 07/13/19 10:00 08/12/19 09:59 07/14/19 08:49 Potassium Chloride 100 ml @ 100 mls/hr Q1HR IVPB 07/14/19 10:00 07/14/19 12:59 07/14/19 11:09 Thiamine HCl (Vitamin B1) 100 mg DAILY ORAL 07/10/19 09:00 08/09/19 08:59 07/14/19 08:50 Last 24 Hour Vital Signs Date Time Temp Pulse Resp B/P (MAP) Pulse Ox O2 Delivery O2 Flow Rate FiO2 07/14/19 11:05 85/39 07/14/19 11:00 87 29 81/63 (69) 98 07/14/19 10:31 72 22 99 Nasal Cannula 2.0 28 84 26 98 07/14/19 10:30 84 24 97/49 (65) 100 07/14/19 10:00 85 96/41 (59) 97 07/14/19 09:00 84 29 101/51 (68) 96 07/14/19 08:00 Nasal Cannula 2.0 07/14/19 08:00 99.3 88 24 113/63 (80) 96 07/14/19 08:00 113/63 07/14/19 08:00 2.0 07/14/19 07:01 96 Nasal Cannula 2.0 28 07/14/19 07:00 102/48 07/14/19 07:00 86 25 102/48 (66) 96 07/14/19 06:57 85 20 99 Nasal Cannula 2.0 28 87 23 97 07/14/19 06:18 87 25 103/50 (67) 96 07/14/19 06:00 84 31 102/50 (67) 96 07/14/19 06:00 100/47 07/14/19 05:45 83 27 103/51 (68) 97 07/14/19 05:40 101/56 07/14/19 05:30 87 29 101/56 (71) 97 07/14/19 05:15 85 21 102/47 (65) 99 07/14/19 05:00 87 22 103/45 (64) 98 07/14/19 05:00 102/47 07/14/19 04:30 84 27 98/44 (62) 99 07/14/19 04:15 85 21 104/47 (66) 98 07/14/19 04:00 Nasal Cannula 2.0 07/14/19 04:00 99.1 85 28 104/47 (66) 97 07/14/19 04:00 84 07/14/19 04:00 104/52 07/14/19 04:00 30 07/14/19 03:45 86 27 105/52 (69) 98 07/14/19 03:30 87 30 103/48 (66) 98 07/14/19 03:15 87 26 108/52 (70) 100 07/14/19 03:05 87 31 98 Facial 30 82 32 100 Bi-Pap 9/21/19 03:00 108/52 07/14/19 03:00 86 27 106/50 (68) 99 07/14/19 02:45 86 30 106/49 (68) 99 07/14/19 02:30 85 26 102/51 (68) 99 07/14/19 02:15 86 23 99/52 (68) 99 07/14/19 02:00 83 27 101/52 (68) 99 07/14/19 02:00 99/52 07/14/19 01:45 84 30 103/47 (65) 99 07/14/19 01:30 85 28 105/47 (66) 98 07/14/19 01:15 85 30 101/49 (66) 99 07/14/19 01:00 87 28 100/48 (65) 98 07/14/19 01:00 101/49 07/14/19 00:31 84 34 98 Facial 30 07/14/19 00:24 98/43 07/14/19 00:00 30 07/14/19 00:00 98/43 07/14/19 00:00 Nasal Cannula 2.0 07/14/19 00:00 89 07/13/19 23:45 85 28 102/50 (67) 100 07/13/19 23:30 85 26 102/48 (66) 99 07/13/19 23:15 88 29 104/49 (67) 99 07/13/19 23:00 104/49 07/13/19 23:00 86 27 99/45 (63) 100 07/13/19 22:57 86 27 100 Facial 30 84 30 100 Bi-Pap 07/13/19 22:45 88 28 100/47 (64) 100 07/13/19 22:30 86 28 93/49 (64) 100 07/13/19 22:15 88 26 97/45 (62) 99 07/13/19 22:00 97/45 07/13/19 22:00 86 29 98/44 (62) 99 07/13/19 21:45 89 26 101/49 (66) 99 07/13/19 21:30 89 26 101/49 (66) 99 07/13/19 21:15 90 28 100/48 (65) 99 07/13/19 21:00 101/49 07/13/19 21:00 90 27 103/47 (65) 100 07/13/19 20:54 88 29 100 Facial 40 07/13/19 20:45 88 29 101/47 (65) 100 07/13/19 20:30 90 27 99/47 (64) 100 07/13/19 20:15 91 30 100/46 (64) 100 19 20:00 98/48 07/13/19 20:00 Nasal Cannula 2.0 07/13/19 20:00 90 07/13/19 20:00 99.2 93 31 103/52 (69) 100 07/13/19 20:00 40 07/13/19 19:45 96 28 98/55 (69) 100 07/13/19 19:43 98/47 07/13/19 19:43 98/47 07/13/19 19:35 Bi-Pap 07/13/19 19:30 124 32 98 Facial 40 124 07/13/19 19:30 117 27 117/81 (93) 99 07/13/19 19:25 76/41 07/13/19 19:00 94 28 103/52 (69) 96 19 19:00 98/47 07/13/19 18:30 94 28 103/52 (69) 96 19 18:00 93 27 105/46 (65) 95 19 18:00 100/49 07/13/19 17:30 94 26 100/49 (66) 95 2019 17:00 92 26 100/59 (73) 96 2019 17:00 101/51 19 16:30 91 25 88/50 (63) 95 19 16:00 94 19 16:00 99.6 91 22 92/54 (67) 96 07/13/19 16:00 2.0 19 16:00 98/48 07/13/19 16:00 Nasal Cannula 2.0 07/13/19 15:30 92 24 99/46 (63) 96 19 15:07 85 20 99 Nasal Cannula 2.0 28 88 16 96 20/19 15:00 90 25 93/49 (64) 99 07/13/19 15:00 93/49 19 14:53 99/46 9/20/19 14:30 88 21 87/63 (71) 98 07/13/19 14:30 100/52 07/13/19 14:15 87 22 92/49 (63) 99 07/13/19 14:14 94/42 07/13/19 14:13 94/42 07/13/19 14:00 92/49 07/13/19 14:00 87 20 94/42 (59) 99 07/13/19 13:45 94/42 07/13/19 13:45 84 26 83/46 (58) 98 07/13/19 13:30 87 22 95/49 (64) 98 07/13/19 13:30 83/46 07/13/19 13:15 86 22 91/45 (60) 98 07/13/19 13:15 91/45 07/13/19 13:00 91/45 07/13/19 13:00 85 21 96/60 (72) 98 07/13/19 12:45 79/42 07/13/19 12:45 84 23 79/42 (54) 100 07/13/19 12:30 76/42 07/13/19 12:30 83 23 89/46 (60) 98 07/13/19 12:15 85 22 74/57 (63) 97 07/13/19 12:15 89/46 07/13/19 12:00 88 07/13/19 12:00 2.0 07/13/19 12:00 74/29 07/13/19 12:00 Nasal Cannula 2.0 07/13/19 12:00 98.4 86 22 83/43 (56) 98 07/13/19 11:45 86 21 77/41 (53) 97 07/13/19 11:45 83/43 07/13/19 11:30 77/41 07/13/19 11:30 84 16 88/43 (58) 97 07/13/19 11:17 84 26 100 Nasal Cannula 2.0 28 80 24 99 07/13/19 11:15 86 19 97/46 (63) 96 07/13/19 11:13 88/43 07/13/19 11:00 97/46 07/13/19 11:00 83 24 97/42 (60) 98 07/13/19 10:45 97/42 07/13/19 10:45 84 24 91/42 (58) 98 /20/19 10:30 83 25 95/46 (62) 97 /20/19 10:30 91/42 9/20/19 10:15 95/46 9/20/19 10:15 83 21 108/49 (68) 100 /20/19 10:00 83 20 98/46 (63) 98 /20/19 10:00 98/46 20/19 09:45 83 21 100/51 (67) 97 20/19 09:45 100/51 920/19 09:30 83 23 95/47 (63) 98 /20/19 09:30 100/51 20/19 09:25 105/48 920/ 09:15 95/47 20/ 09:15 84 21 105/48 (67) 98 /20/19 09:00 105/48 20/ 09:00 83 21 113/47 (69) 98 07/13/19 08:45 83 21 107/48 (67) 98 07/13/19 08:45 113/47 20/19 08:30 112/54 20/ 08:30 82 21 110/51 (70) 98 07/13/ 08:15 89/42 07/13/ 08:15 80 19 89/42 (58) 99 07/13/19 08:04 97 Nasal Cannula 2.0 28 07/13/19 08:00 98.6 80 19 81/34 (50) 100 07/13/19 08:00 2.0 07/13/19 08:00 88/41 07/13/19 08:00 82 /20/19 08:00 Nasal Cannula 2.0 07/13/19 07:45 79 19 82/37 (52) 97 20/ 07:45 76/38 20/ 07:30 81 21 116/91 (99) 100 20/ 07:30 76/38 9/20/19 07:15 85 22 100/39 (59) 100 //19 07:15 100/39 20/ 07:03 80 25 100 Bi-Pap 28 84 27 100 07/13/19 07:00 84 25 97/41 (59) 100 07/13/19 07:00 100/39 07/13/19 06:53 84 27 100 Facial 28 Bi-Pap 07/13/19 06:30 79 21 84/69 (74) 100 07/13/19 06:00 90/37 07/13/19 06:00 100/39 07/13/19 06:00 80 21 95/38 (57) 100 07/13/19 05:30 79 24 88/37 (54) 99 07/13/19 05:00 88/42 07/13/19 05:00 77 21 89/40 (56) 100 07/13/19 04:30 78 21 97/40 (59) 100 07/13/19 04:00 78 07/13/19 04:00 97.8 79 23 90/44 (59) 100 07/13/19 04:00 Nasal Cannula 2.0 07/13/19 04:00 96/38 07/13/19 04:00 28 07/13/19 03:04 81 24 100 Bi-Pap 28 79 25 100 07/13/19 03:03 79 25 100 Facial 28 79 25 100 Bi-Pap 28 07/13/19 03:00 92/39 07/13/19 02:00 93/47 07/13/19 01:00 78 25 100 Facial 28 07/13/19 01:00 95/42 07/13/19 01:00 81 24 95/42 (59) 99 07/13/19 00:30 82 25 93/48 (63) 99 07/13/19 00:00 98.2 82 24 93/52 (66) 99 07/13/19 00:00 93/52 07/13/19 00:00 Nasal Cannula 2.0 07/12/19 23:30 83 30 100 Facial 28 90 30 100 Bi-Pap 28 07/12/19 23:30 28 07/12/19 23:30 82 24 99/50 (66) 99 07/12/19 23:30 85 26 100 Bi-Pap 28 83 30 100 07/12/19 23:00 82 25 92/43 (59) 97 07/12/19 23:00 92/43 07/12/19 22:30 84 28 91/39 (56) 97 07/12/19 22:00 84 27 89/41 (57) 97 9/19/19 22:00 89/41 07/12/19 22:00 2.0 07/12/19 21:30 83 27 91/42 (58) 98 07/12/19 21:30 85/67 07/12/19 21:00 84 27 91/46 (61) 97 07/12/19 20:30 83 25 87/41 (56) 97 07/12/19 20:00 82/63 07/12/19 20:00 98.0 84 25 82/63 (69) 99 07/12/19 20:00 2.0 07/12/19 20:00 84 07/12/19 20:00 Nasal Cannula 2.0 07/12/19 19:45 83 25 97 Nasal Cannula 2.0 28 87 19 97 07/12/19 19:45 97 Nasal Cannula 2.0 28 07/12/19 19:30 86 28 74/39 (51) 97 07/12/19 19:00 84 26 88/41 (57) 98 07/12/19 18:30 88 31 96/48 (64) 96 07/12/19 18:00 85 23 95/52 (66) 98 07/12/19 17:00 88 21 98/53 (68) 100 07/12/19 17:00 88 20 98/53 (68) 99 07/12/19 16:33 103/52 07/12/19 16:30 92 30 101/59 (73) 97 07/12/19 16:30 91 28 108/54 (72) 100 07/12/19 16:00 2.0 07/12/19 16:00 Nasal Cannula 2.0 07/12/19 16:00 99.0 89 29 103/52 (69) 97 07/12/19 16:00 89 07/12/19 15:39 82 22 100 Nasal Cannula 2.0 28 07/12/19 15:30 86 27 78/63 (68) 100 07/12/19 15:29 84 30 97 07/12/19 15:00 86 28 107/48 (67) 97 07/12/19 14:30 86 28 98/54 (69) 97 07/12/19 14:00 86 27 94/47 (63) 94 07/12/19 13:30 84 26 97/49 (65) 94 07/12/19 13:00 85 28 99/51 (67) 95 9/19/19 12:57 93/52 Intake and Output 07/13/19 07/14/19 19:00 07:00 Intake Total 1981.5350 ml 2563.52 ml Output Total 1400 ml 250 ml Balance 581.5350 ml 2313.52 ml IV Total 1901.5350 ml 2513.52 ml Other 80 ml 50 ml Output Urine Total 0 ml 0 ml Stool Total 250 ml Hemodialysis UF 1400 ml Labs Test 07/12/19 04:10 07/13/19 04:10 07/13/19 11:20 07/13/19 21:30 White Blood Count 33.5 K/UL (4.8-10.8) 44.1 K/UL (4.8-10.8) 40.8 K/UL (4.8-10.8) Red Blood Count 2.49 M/UL (4.70-6.10) 2.07 M/UL (4.70-6.10) 2.19 M/UL (4.70-6.10) Hemoglobin 7.8 G/DL (14.2-18.0) 6.4 G/DL (14.2-18.0) 6.8 G/DL (14.2-18.0) Hematocrit 25.3 % (42.0-52.0) 20.6 % (42.0-52.0) 20.7 % (42.0-52.0) Mean Corpuscular Volume 102 FL (80-99) 99 FL (80-99) 95 FL (80-99) Mean Corpuscular Hemoglobin 31.2 PG (27.0-31.0) 31.1 PG (27.0-31.0) 31.1 PG (27.0-31.0) Mean Corpuscular Hemoglobin Concent 30.7 G/DL (32.0-36.0) 31.3 G/DL (32.0-36.0) 32.8 G/DL (32.0-36.0) Red Cell Distribution Width 24.6 % (11.6-14.8) 24.2 % (11.6-14.8) 21.8 % (11.6-14.8) Platelet Count 149 K/UL (150-450) 152 K/UL (150-450) 104 K/UL (150-450) Mean Platelet Volume 8.5 FL (6.5-10.1) 10.1 FL (6.5-10.1) 10.8 FL (6.5-10.1) Neutrophils (%) (Auto) % (45.0-75.0) % (45.0-75.0) % (45.0-75.0) Lymphocytes (%) (Auto) % (20.0-45.0) % (20.0-45.0) % (20.0-45.0) Monocytes (%) (Auto) % (1.0-10.0) % (1.0-10.0) % (1.0-10.0) Eosinophils (%) (Auto) % (0.0-3.0) % (0.0-3.0) % (0.0-3.0) Basophils (%) (Auto) % (0.0-2.0) % (0.0-2.0) % (0.0-2.0) Differential Total Cells Counted 100 100 100 Neutrophils % (Manual) 83 % (45-75) 85 % (45-75) 80 % (45-75) Lymphocytes % (Manual) 3 % (20-45) 5 % (20-45) 12 % (20-45) Monocytes % (Manual) 9 % (1-10) 5 % (1-10) 2 % (1-10) Eosinophils % (Manual) 1 % (0-3) 4 % (0-3) 2 % (0-3) Basophils % (Manual) 0 % (0-2) 0 % (0-2) 0 % (0-2) Band Neutrophils 4 % (0-8) 1 % (0-8) 4 % (0-8) Platelet Estimate Adequate Adequate Decreased Platelet Morphology Normal Normal Normal Polychromasia 1+ 1+ 1+ Hypochromasia 1+ 2+ Anisocytosis 3+ 3+ 2+ Macrocytosis 1+ Sodium Level 152 MMOL/L (136-145) 155 MMOL/L (136-145) Potassium Level 3.8 MMOL/L (3.5-5.1) 3.3 MMOL/L (3.5-5.1) Chloride Level 114 MMOL/L (98-107) 116 MMOL/L (98-107) Carbon Dioxide Level 15 MMOL/L (21-32) 15 MMOL/L (21-32) Anion Gap 23 mmol/L (5-15) 25 mmol/L (5-15) Blood Urea Nitrogen 89 mg/dL (7-18) 97 mg/dL (7-18) Creatinine 10.5 MG/DL (0.55-1.30) 11.9 MG/DL (0.55-1.30) Estimat Glomerular Filtration Rate 5.5 mL/min (>60) 4.8 mL/min (>60) Glucose Level 141 MG/DL (74-106) 151 MG/DL (74-106) Calcium Level 7.6 MG/DL (8.5-10.1) 7.2 MG/DL (8.5-10.1) Total Bilirubin 38.4 MG/DL (0.2-1.0) 36.1 MG/DL (0.2-1.0) Direct Bilirubin 30.3 MG/DL (0.0-0.3) 28.7 MG/DL (0.0-0.3) Aspartate Amino Transf (AST/SGOT) 190 U/L (15-37) 140 U/L (15-37) Alanine Aminotransferase (ALT/SGPT) 13 U/L (12-78) 11 U/L (12-78) Alkaline Phosphatase 285 U/L (46-116) 227 U/L (46-116) Ammonia 278 umol/L (11-32) C-Reactive Protein, Quantitative 15.2 mg/dL (0.00-0.90) Total Protein 5.3 G/DL (6.4-8.2) 4.7 G/DL (6.4-8.2) Albumin 1.6 G/DL (3.4-5.0) 1.6 G/DL (3.4-5.0) Globulin 3.8 g/dL 3.1 g/dL Albumin/Globulin Ratio 0.4 (1.0-2.7) 0.5 (1.0-2.7) Uric Acid 18.2 MG/DL (2.6-7.2) Phosphorus Level 9.6 MG/DL (2.5-4.9) Magnesium Level 3.0 MG/DL (1.8-2.4) Prothrombin Time 24.0 SEC (9.30-11.50) Prothromb Time International Ratio 2.4 (0.9-1.1) Activated Partial Thromboplast Time 65 SEC (23-33) Fibrinogen 230 mg/dL (200-400) Test 07/14/19 04:50 White Blood Count 44.7 K/UL (4.8-10.8) Red Blood Count 2.67 M/UL (4.70-6.10) Hemoglobin 8.0 G/DL (14.2-18.0) Hematocrit 25.2 % (42.0-52.0) Mean Corpuscular Volume 95 FL (80-99) Mean Corpuscular Hemoglobin 30.0 PG (27.0-31.0) Mean Corpuscular Hemoglobin Concent 31.7 G/DL (32.0-36.0) Red Cell Distribution Width 21.4 % (11.6-14.8) Platelet Count 127 K/UL (150-450) Mean Platelet Volume 12.0 FL (6.5-10.1) Neutrophils (%) (Auto) % (45.0-75.0) Lymphocytes (%) (Auto) % (20.0-45.0) Monocytes (%) (Auto) % (1.0-10.0) Eosinophils (%) (Auto) % (0.0-3.0) Basophils (%) (Auto) % (0.0-2.0) Differential Total Cells Counted 100 Neutrophils % (Manual) 79 % (45-75) Lymphocytes % (Manual) 5 % (20-45) Monocytes % (Manual) 7 % (1-10) Eosinophils % (Manual) 2 % (0-3) Basophils % (Manual) 0 % (0-2) Band Neutrophils 7 % (0-8) Platelet Estimate Decreased Platelet Morphology Normal Hypochromasia 1+ Anisocytosis 2+ Prothrombin Time 20.1 SEC (9.30-11.50) Prothromb Time International Ratio 2.0 (0.9-1.1) Sodium Level 146 MMOL/L (136-145) Potassium Level 3.3 MMOL/L (3.5-5.1) Chloride Level 108 MMOL/L (98-107) Carbon Dioxide Level 18 MMOL/L (21-32) Anion Gap 20 mmol/L (5-15) Blood Urea Nitrogen 75 mg/dL (7-18) Creatinine 9.1 MG/DL (0.55-1.30) Estimat Glomerular Filtration Rate 6.5 mL/min (>60) Glucose Level 173 MG/DL (74-106) Calcium Level 6.8 MG/DL (8.5-10.1) Total Bilirubin 38.8 MG/DL (0.2-1.0) Direct Bilirubin 30.6 MG/DL (0.0-0.3) Aspartate Amino Transf (AST/SGOT) 189 U/L (15-37) Alanine Aminotransferase (ALT/SGPT) 15 U/L (12-78) Alkaline Phosphatase 244 U/L (46-116) Ammonia 100 umol/L (11-32) Total Protein 5.0 G/DL (6.4-8.2) Albumin 1.8 G/DL (3.4-5.0) Globulin 3.2 g/dL Albumin/Globulin Ratio 0.6 (1.0-2.7) Height (Feet): 5 Height (Inches): 9.00 Weight (Pounds): 232 Objective Physical Exam: Vitals: reviewed General Appearance: NAD HEENT: normocephalic, atraumatic ++ icterus jaundice, ng+ Neck: non-tender, normal alignment Respiratory/Chest: normal breath sounds bilaterally++ nc, BIPAP+ Cardiovascular/Chest: normal peripheral pulses, normal rate Abdomen: normal bowel sounds, soft,+ peg ++ ascites Extremities: normal range of motion Marty Kebede MD Jul 14, 2019 12:52
--- NOTE | 2019-07-14 16:45 | General Progress Note ---
Assessment/Plan Problem List: (1) Anemia ICD Codes: D64.9 - Anemia, unspecified SNOMED: 611144920 Qualifiers: Qualified Codes: D64.9 - Anemia, unspecified (2) Acute alcoholic intoxication ICD Codes: F10.929 - Alcohol use, unspecified with intoxication, unspecified SNOMED: 51897107, 6662560 Qualifiers: Qualified Codes: F10.920 - Alcohol use, unspecified with intoxication, uncomplicated (3) End-stage liver disease ICD Codes: K72.90 - Hepatic failure, unspecified without coma SNOMED: 539813680 (4) Hepatorenal syndrome ICD Codes: K76.7 - Hepatorenal syndrome SNOMED: 79912468, 1245071 (5) Pancreatitis, alcoholic, acute ICD Codes: K85.20 - Alcohol induced acute pancreatitis without necrosis or infection SNOMED: 018082005, 3265644 Qualifiers: Qualified Codes: K85.20 - Alcohol induced acute pancreatitis without necrosis or infection (6) Respiratory failure ICD Codes: J96.90 - Respiratory failure, unspecified, unspecified whether with hypoxia or hypercapnia SNOMED: 677686700 Status: stable, progressing, deteriorating Assessment/Plan: etoh cirrhosis renal shut down afebrile hepatic encephalopathy elevated lft is persistent s/p paracentesis hepatorenal syndrome Subjective ROS Limited/Unobtainable: Yes Allergies: Coded Allergies: No Known Allergies (Unverified , 06/20/19) Objective Last 24 Hour Vital Signs Date Time Temp Pulse Resp B/P (MAP) Pulse Ox O2 Delivery O2 Flow Rate FiO2 07/14/19 16:00 Nasal Cannula 2.0 07/14/19 16:00 99.5 84 21 99/45 (63) 100 07/14/19 16:00 2.0 07/14/19 15:59 96/46 07/14/19 15:30 89 23 109/55 (73) 96 07/14/19 15:00 88 27 105/54 (71) 100 07/14/19 14:31 83 26 100 Nasal Cannula 2.0 28 86 27 100 07/14/19 14:15 89 23 102/55 (71) 99 07/14/19 14:00 100.0 88 24 99/50 (66) 100 07/14/19 13:00 88 27 106/53 (70) 99 07/14/19 12:30 88 25 100/47 (64) 99 07/14/19 12:00 87 27 92/35 (54) 97 07/14/19 12:00 86 07/14/19 12:00 Nasal Cannula 2.0 07/14/19 12:00 2.0 07/14/19 11:30 87 26 104/47 (66) 98 07/14/19 11:05 85/39 07/14/19 11:00 87 29 81/63 (69) 98 07/14/19 10:31 72 22 99 Nasal Cannula 2.0 28 84 26 98 07/14/19 10:30 84 24 97/49 (65) 100 07/14/19 10:00 85 96/41 (59) 97 07/14/19 09:00 84 29 101/51 (68) 96 07/14/19 08:00 Nasal Cannula 2.0 07/14/19 08:00 99.3 88 24 113/63 (80) 96 07/14/19 08:00 113/63 07/14/19 08:00 86 07/14/19 08:00 2.0 07/14/19 07:01 96 Nasal Cannula 2.0 28 07/14/19 07:00 102/48 07/14/19 07:00 86 25 102/48 (66) 96 07/14/19 06:57 85 20 99 Nasal Cannula 2.0 28 87 23 97 07/14/19 06:18 87 25 103/50 (67) 96 07/14/19 06:00 84 31 102/50 (67) 96 07/14/19 06:00 100/47 07/14/19 05:45 83 27 103/51 (68) 97 07/14/19 05:40 101/56 07/14/19 05:30 87 29 101/56 (71) 97 07/14/19 05:15 85 21 102/47 (65) 99 07/14/19 05:00 87 22 103/45 (64) 98 07/14/19 05:00 102/47 07/14/19 04:30 84 27 98/44 (62) 99 07/14/19 04:15 85 21 104/47 (66) 98 07/14/19 04:00 Nasal Cannula 2.0 07/14/19 04:00 99.1 85 28 104/47 (66) 97 07/14/19 04:00 84 07/14/19 04:00 104/52 07/14/19 04:00 30 07/14/19 03:45 86 27 105/52 (69) 98 07/14/19 03:30 87 30 103/48 (66) 98 07/14/19 03:15 87 26 108/52 (70) 100 07/14/19 03:05 87 31 98 Facial 30 82 32 100 Bi-Pap 07/14/19 03:00 108/52 07/14/19 03:00 86 27 106/50 (68) 99 07/14/19 02:45 86 30 106/49 (68) 99 07/14/19 02:30 85 26 102/51 (68) 99 07/14/19 02:15 86 23 99/52 (68) 99 07/14/19 02:00 83 27 101/52 (68) 99 07/14/19 02:00 99/52 07/14/19 01:45 84 30 103/47 (65) 99 07/14/19 01:30 85 28 105/47 (66) 98 07/14/19 01:15 85 30 101/49 (66) 99 07/14/19 01:00 87 28 100/48 (65) 98 07/14/19 01:00 101/49 07/14/19 00:31 84 34 98 Facial 30 07/14/19 00:24 98/43 07/14/19 00:00 30 07/14/19 00:00 98/43 07/14/19 00:00 Nasal Cannula 2.0 07/14/19 00:00 89 07/13/19 23:45 85 28 102/50 (67) 100 07/13/19 23:30 85 26 102/48 (66) 99 07/13/19 23:15 88 29 104/49 (67) 99 07/13/19 23:00 104/49 07/13/19 23:00 86 27 99/45 (63) 100 07/13/19 22:57 86 27 100 Facial 30 84 30 100 Bi-Pap 07/13/19 22:45 88 28 100/47 (64) 100 07/13/19 22:30 86 28 93/49 (64) 100 9/20/19 22:15 88 26 97/45 (62) 99 07/13/19 22:00 97/45 07/13/19 22:00 86 29 98/44 (62) 99 07/13/19 21:45 89 26 101/49 (66) 99 07/13/19 21:30 89 26 101/49 (66) 99 07/13/19 21:15 90 28 100/48 (65) 99 07/13/19 21:00 101/49 07/13/19 21:00 90 27 103/47 (65) 100 07/13/19 20:54 88 29 100 Facial 40 07/13/19 20:45 88 29 101/47 (65) 100 07/13/19 20:30 90 27 99/47 (64) 100 07/13/19 20:15 91 30 100/46 (64) 100 07/13/19 20:00 98/48 07/13/19 20:00 Nasal Cannula 2.0 07/13/19 20:00 90 07/13/19 20:00 99.2 93 31 103/52 (69) 100 07/13/19 20:00 40 07/13/19 19:45 96 28 98/55 (69) 100 07/13/19 19:43 98/47 07/13/19 19:43 98/47 07/13/19 19:35 Bi-Pap 07/13/19 19:30 124 32 98 Facial 40 124 07/13/19 19:30 117 27 117/81 (93) 99 07/13/19 19:25 76/41 07/13/19 19:00 94 28 103/52 (69) 96 07/13/19 19:00 98/47 07/13/19 18:30 94 28 103/52 (69) 96 07/13/19 18:00 93 27 105/46 (65) 95 07/13/19 18:00 100/49 07/13/19 17:30 94 26 100/49 (66) 95 07/13/19 17:00 92 26 100/59 (73) 96 07/13/19 17:00 101/51 Intake and Output 07/13/19 07/14/19 19:00 07:00 Intake Total 1981.5350 ml 2563.52 ml Output Total 1400 ml 250 ml Balance 581.5350 ml 2313.52 ml IV Total 1901.5350 ml 2513.52 ml Other 80 ml 50 ml Output Urine Total 0 ml 0 ml Stool Total 250 ml Hemodialysis UF 1400 ml Laboratory Tests 07/13/19 21:30: White Blood Count 40.8*H, Red Blood Count 2.19L, Hemoglobin 6.8*L, Hematocrit 20.7L, Mean Corpuscular Volume 95, Mean Corpuscular Hemoglobin 31.1H, Mean Corpuscular Hemoglobin Concent 32.8, Red Cell Distribution Width 21.8H, Platelet Count 104L, Mean Platelet Volume 10.8H, Neutrophils (%) (Auto) , Lymphocytes (%) (Auto) , Monocytes (%) (Auto) , Eosinophils (%) (Auto) , Basophils (%) (Auto) , Differential Total Cells Counted 100, Neutrophils % ( Manual) 80H, Lymphocytes % (Manual) 12L, Monocytes % (Manual) 2, Eosinophils % ( Manual) 2, Basophils % (Manual) 0, Band Neutrophils 4, Platelet Estimate DecreasedL, Platelet Morphology Normal, Polychromasia 1+, Anisocytosis 2+ 07/14/19 04:50: White Blood Count 44.7*H, Red Blood Count 2.67L, Hemoglobin 8.0L, Hematocrit 25.2L, Mean Corpuscular Volume 95, Mean Corpuscular Hemoglobin 30.0, Mean Corpuscular Hemoglobin Concent 31.7L, Red Cell Distribution Width 21.4H, Platelet Count 127L, Mean Platelet Volume 12.0H, Neutrophils (%) (Auto) , Lymphocytes (%) (Auto) , Monocytes (%) (Auto) , Eosinophils (%) (Auto) , Basophils (%) (Auto) , Differential Total Cells Counted 100, Neutrophils % ( Manual) 79H, Lymphocytes % (Manual) 5L, Monocytes % (Manual) 7, Eosinophils % ( Manual) 2, Basophils % (Manual) 0, Band Neutrophils 7, Platelet Estimate DecreasedL, Platelet Morphology Normal, Anisocytosis 2+, Hypochromasia 1+, Prothrombin Time 20.1H, Prothromb Time International Ratio 2.0H, Sodium Level 146H, Potassium Level 3.3L, Chloride Level 108H, Carbon Dioxide Level 18L, Anion Gap 20H, Blood Urea Nitrogen 75H, Creatinine 9.1H, Estimat Glomerular Filtration Rate 6.5, Glucose Level 173H, Calcium Level 6.8L, Total Bilirubin 38.8H, Direct Bilirubin 30.6H, Aspartate Amino Transf (AST/SGOT) 189H, Alanine Aminotransferase (ALT/SGPT) 15, Alkaline Phosphatase 244H, Ammonia 100H, Total Protein 5.0L, Albumin 1.8L, Globulin 3.2, Albumin/Globulin Ratio 0.6L Height (Feet): 5 Height (Inches): 9.00 Weight (Pounds): 232 Cardiovascular: normal rate Respiratory/Chest: lungs clear Abdomen: soft Deejay Saldaña MD Jul 14, 2019 16:45
--- NOTE | 2019-07-14 19:10 | General Progress Note ---
Assessment/Plan Status: stable, progressing, deteriorating Assessment/Plan: Assessment EtOH abuse EtOH hepatitis Jaundice/liver failure HRS Hepatic encephalopathy anemia, thombocytopenia hypotension poor prognosis Recommendations pressors octreotide PPI antibiotics Subjective Allergies: Coded Allergies: No Known Allergies (Unverified , 06/20/19) Subjective above noted seen in ICU d/w RN sleepy hypotensive Objective Last 24 Hour Vital Signs Date Time Temp Pulse Resp B/P (MAP) Pulse Ox O2 Delivery O2 Flow Rate FiO2 07/14/19 18:00 85 26 109/51 (70) 98 07/14/19 17:30 86 26 115/85 (95) 100 07/14/19 17:00 85 21 97/52 (67) 100 07/14/19 16:00 83 07/14/19 16:00 Nasal Cannula 2.0 07/14/19 16:00 99.5 84 21 99/45 (63) 100 07/14/19 16:00 2.0 07/14/19 15:59 96/46 07/14/19 15:30 89 23 109/55 (73) 96 07/14/19 15:00 88 27 105/54 (71) 100 07/14/19 14:31 83 26 100 Nasal Cannula 2.0 28 86 27 100 07/14/19 14:15 89 23 102/55 (71) 99 07/14/19 14:00 100.0 88 24 99/50 (66) 100 07/14/19 13:00 88 27 106/53 (70) 99 07/14/19 12:30 88 25 100/47 (64) 99 07/14/19 12:00 87 27 92/35 (54) 97 07/14/19 12:00 86 07/14/19 12:00 Nasal Cannula 2.0 07/14/19 12:00 2.0 07/14/19 11:30 87 26 104/47 (66) 98 07/14/19 11:05 85/39 07/14/19 11:00 87 29 81/63 (69) 98 07/14/19 10:31 72 22 99 Nasal Cannula 2.0 28 84 26 98 07/14/19 10:30 84 24 97/49 (65) 100 07/14/19 10:00 85 96/41 (59) 97 07/14/19 09:00 84 29 101/51 (68) 96 07/14/19 08:00 Nasal Cannula 2.0 07/14/19 08:00 99.3 88 24 113/63 (80) 96 07/14/19 08:00 113/63 07/14/19 08:00 86 07/14/19 08:00 2.0 07/14/19 07:01 96 Nasal Cannula 2.0 28 07/14/19 07:00 102/48 07/14/19 07:00 86 25 102/48 (66) 96 07/14/19 06:57 85 20 99 Nasal Cannula 2.0 28 87 23 97 07/14/19 06:18 87 25 103/50 (67) 96 07/14/19 06:00 84 31 102/50 (67) 96 07/14/19 06:00 100/47 07/14/19 05:45 83 27 103/51 (68) 97 07/14/19 05:40 101/56 07/14/19 05:30 87 29 101/56 (71) 97 07/14/19 05:15 85 21 102/47 (65) 99 07/14/19 05:00 87 22 103/45 (64) 98 07/14/19 05:00 102/47 07/14/19 04:30 84 27 98/44 (62) 99 07/14/19 04:15 85 21 104/47 (66) 98 07/14/19 04:00 Nasal Cannula 2.0 07/14/19 04:00 99.1 85 28 104/47 (66) 97 07/14/19 04:00 84 07/14/19 04:00 104/52 07/14/19 04:00 30 07/14/19 03:45 86 27 105/52 (69) 98 07/14/19 03:30 87 30 103/48 (66) 98 07/14/19 03:15 87 26 108/52 (70) 100 07/14/19 03:05 87 31 98 Facial 30 82 32 100 Bi-Pap 07/14/19 03:00 108/52 07/14/19 03:00 86 27 106/50 (68) 99 07/14/19 02:45 86 30 106/49 (68) 99 07/14/19 02:30 85 26 102/51 (68) 99 07/14/19 02:15 86 23 99/52 (68) 99 07/14/19 02:00 83 27 101/52 (68) 99 07/14/19 02:00 99/52 07/14/19 01:45 84 30 103/47 (65) 99 07/14/19 01:30 85 28 105/47 (66) 98 07/14/19 01:15 85 30 101/49 (66) 99 07/14/19 01:00 87 28 100/48 (65) 98 07/14/19 01:00 101/49 07/14/19 00:31 84 34 98 Facial 30 07/14/19 00:24 98/43 07/14/19 00:00 30 07/14/19 00:00 98/43 07/14/19 00:00 Nasal Cannula 2.0 07/14/19 00:00 89 07/13/19 23:45 85 28 102/50 (67) 100 07/13/19 23:30 85 26 102/48 (66) 99 07/13/19 23:15 88 29 104/49 (67) 99 07/13/19 23:00 104/49 07/13/19 23:00 86 27 99/45 (63) 100 07/13/19 22:57 86 27 100 Facial 30 84 30 100 Bi-Pap 07/13/19 22:45 88 28 100/47 (64) 100 07/13/19 22:30 86 28 93/49 (64) 100 07/13/19 22:15 88 26 97/45 (62) 99 07/13/19 22:00 97/45 07/13/19 22:00 86 29 98/44 (62) 99 07/13/19 21:45 89 26 101/49 (66) 99 07/13/19 21:30 89 26 101/49 (66) 99 07/13/19 21:15 90 28 100/48 (65) 99 07/13/19 21:00 101/49 07/13/19 21:00 90 27 103/47 (65) 100 07/13/19 20:54 88 29 100 Facial 40 07/13/19 20:45 88 29 101/47 (65) 100 07/13/19 20:30 90 27 99/47 (64) 100 07/13/19 20:15 91 30 100/46 (64) 100 9/20/19 20:00 98/48 07/13/19 20:00 Nasal Cannula 2.0 07/13/19 20:00 90 07/13/19 20:00 99.2 93 31 103/52 (69) 100 07/13/19 20:00 40 07/13/19 19:45 96 28 98/55 (69) 100 07/13/19 19:43 98/47 07/13/19 19:43 98/47 07/13/19 19:35 Bi-Pap 07/13/19 19:30 124 32 98 Facial 40 124 07/13/19 19:30 117 27 117/81 (93) 99 07/13/19 19:25 76/41 Intake and Output 07/13/19 07/14/19 19:00 07:00 Intake Total 1981.5350 ml 2563.52 ml Output Total 1400 ml 250 ml Balance 581.5350 ml 2313.52 ml IV Total 1901.5350 ml 2513.52 ml Other 80 ml 50 ml Output Urine Total 0 ml 0 ml Stool Total 250 ml Hemodialysis UF 1400 ml Laboratory Tests 07/13/19 21:30: White Blood Count 40.8*H, Red Blood Count 2.19L, Hemoglobin 6.8*L, Hematocrit 20.7L, Mean Corpuscular Volume 95, Mean Corpuscular Hemoglobin 31.1H, Mean Corpuscular Hemoglobin Concent 32.8, Red Cell Distribution Width 21.8H, Platelet Count 104L, Mean Platelet Volume 10.8H, Neutrophils (%) (Auto) , Lymphocytes (%) (Auto) , Monocytes (%) (Auto) , Eosinophils (%) (Auto) , Basophils (%) (Auto) , Differential Total Cells Counted 100, Neutrophils % ( Manual) 80H, Lymphocytes % (Manual) 12L, Monocytes % (Manual) 2, Eosinophils % ( Manual) 2, Basophils % (Manual) 0, Band Neutrophils 4, Platelet Estimate DecreasedL, Platelet Morphology Normal, Polychromasia 1+, Anisocytosis 2+ 07/14/19 04:50: White Blood Count 44.7*H, Red Blood Count 2.67L, Hemoglobin 8.0L, Hematocrit 25.2L, Mean Corpuscular Volume 95, Mean Corpuscular Hemoglobin 30.0, Mean Corpuscular Hemoglobin Concent 31.7L, Red Cell Distribution Width 21.4H, Platelet Count 127L, Mean Platelet Volume 12.0H, Neutrophils (%) (Auto) , Lymphocytes (%) (Auto) , Monocytes (%) (Auto) , Eosinophils (%) (Auto) , Basophils (%) (Auto) , Differential Total Cells Counted 100, Neutrophils % ( Manual) 79H, Lymphocytes % (Manual) 5L, Monocytes % (Manual) 7, Eosinophils % ( Manual) 2, Basophils % (Manual) 0, Band Neutrophils 7, Platelet Estimate DecreasedL, Platelet Morphology Normal, Anisocytosis 2+, Hypochromasia 1+, Prothrombin Time 20.1H, Prothromb Time International Ratio 2.0H, Sodium Level 146H, Potassium Level 3.3L, Chloride Level 108H, Carbon Dioxide Level 18L, Anion Gap 20H, Blood Urea Nitrogen 75H, Creatinine 9.1H, Estimat Glomerular Filtration Rate 6.5, Glucose Level 173H, Calcium Level 6.8L, Total Bilirubin 38.8H, Direct Bilirubin 30.6H, Aspartate Amino Transf (AST/SGOT) 189H, Alanine Aminotransferase (ALT/SGPT) 15, Alkaline Phosphatase 244H, Ammonia 100H, Total Protein 5.0L, Albumin 1.8L, Globulin 3.2, Albumin/Globulin Ratio 0.6L Height (Feet): 5 Height (Inches): 9.00 Weight (Pounds): 232 Objective Obese man NCAT supple CTA RR abd distended (+) edema somnolent, wakes up confused with stimulation Lucila Rios MD Jul 14, 2019 19:10
[2019-07-14] MEDS: Dyna-Hex 2% Top Sol 2oz TOPIC SCH (20:51)
[2019-07-15] VITALS (41 sets, daily range): BP systolic 84–123; BP diastolic 26–88
[2019-07-15] MEDS: D5 1/2NS 1,000 ML IV SCH (01:33)
[2019-07-15] MEDS: Octreotide Acetate 500 MCG in Sodium Chloride 499 ML IV SCH ×3 (01:34→22:12)
[2019-07-15 05:27] LABS: HEMATOCRIT 22.3 % (42.0-52.0); HEMOGLOBIN 7.2 G/DL (14.2-18.0); MEAN CORPUSCULAR VOLUME 93 FL (80-99); PLATELET COUNT 102 K/UL (150-450); RED BLOOD COUNT 2.39 M/UL (4.70-6.10); RED CELL DISTRIBUTION WIDTH 22.5 % (11.6-14.8)
[2019-07-15 05:53] LABS: WHITE BLOOD COUNT 41.2 K/UL (4.8-10.8)
[2019-07-15 06:07] LABS: ALANINE AMINOTRANSFERASE 14 U/L (12-78); ALBUMIN 1.5 G/DL (3.4-5.0); ALKALINE PHOSPHATASE 240 U/L (46-116); ANION GAP 23 mmol/L (5-15); ASPARTATE AMINO TRANSFERASE 171 U/L (15-37); BILIRUBIN,DIRECT 28.2 MG/DL (0.0-0.3); BILIRUBIN,TOTAL 35.5 MG/DL (0.2-1.0); BLOOD UREA NITROGEN 87 mg/dL (7-18); CALCIUM 6.9 MG/DL (8.5-10.1); CARBON DIOXIDE 14 MMOL/L (21-32); CHLORIDE 110 MMOL/L (98-107); CREATININE 10.1 MG/DL (0.55-1.30); POTASSIUM 2.8 MMOL/L (3.5-5.1); SODIUM 146 MMOL/L (136-145)
[2019-07-15] MEDS: Cefepime HCl 1 GM in D5W 55 ML IVPB SCH (08:34)
[2019-07-15] MEDS: Thiamine 100mg tab ORAL SCH (08:34)
[2019-07-15] MEDS: Pantoprazole Inj IVP SCH ×2 (08:34→20:45)
[2019-07-15] MEDS: Lactulose 20gm/30ml UDC NG SCH ×4 (08:34→20:45)
--- NOTE | 2019-07-15 08:59 | Critical Care Progress Note ---
Assessment/Plan Assessment/Plan Impression: Alcoholic hepatitis/fatty liver Liver failure GI bleeding Sepsis pneumonia clearing Hepatorenal syndrome - worsening renal function - on HD Multiorgan Failure Poor prognosis Possible Portal Hypertension Pancreatitis, alcoholic, acute Anemia Plan ICU management Antibiotics per ID monitor HH Aspiration precautions BiPAP PRN NC O2 GI/Renal following HD per Nephrology Monitor labs monitor oxygen needs Patient has poor prognosis medications/laboratory data/nursing notes/ICU care reviewed in detail note reviewed and edited care discussed with RN and RT ICU time spent 38 minutes Critical Care - Subjective Interval Events: reviewed care on oxygen no respiratory distress ROS Limited/Unobtainable: Yes EKG Rhythm: Sinus Rhythm I&O: Intake and Output 07/14/19 07/15/19 18:59 06:59 Intake Total 2444.62 ml 2479.22 ml Output Total 600 ml 0 ml Balance 1844.62 ml 2479.22 ml IV Total 2444.62 ml 2479.22 ml Output Urine Total 0 ml 0 ml Stool Total 600 ml Critical Care - Objective Last 24 Hour Vital Signs Date Time Temp Pulse Resp B/P (MAP) Pulse Ox O2 Delivery O2 Flow Rate FiO2 07/15/19 08:00 2.0 07/15/19 08:00 Nasal Cannula 2.0 07/15/19 07:01 99 Nasal Cannula 2.0 28 07/15/19 07:00 74 22 90/41 (57) 100 07/15/19 06:30 75 25 87/48 (61) 99 07/15/19 06:00 77 23 103/49 (67) 99 07/15/19 05:30 76 24 84/26 (45) 99 07/15/19 05:00 80 24 101/47 (65) 99 07/15/19 04:30 78 20 92/43 (59) 98 07/15/19 04:00 78 07/15/19 04:00 98.8 78 19 103/48 (66) 99 07/15/19 04:00 Nasal Cannula 2.0 07/15/19 04:00 2.0 07/15/19 03:30 77 20 97/45 (62) 99 07/15/19 03:00 77 24 93/47 (62) 100 07/15/19 02:30 79 21 105/51 (69) 100 07/15/19 02:00 76 24 88/40 (56) 100 07/15/19 02:00 2.0 07/15/19 01:30 88 25 103/49 (67) 100 07/15/19 01:05 78 27 100 Facial 30 07/15/19 01:00 79 27 101/43 (62) 100 07/15/19 00:30 82 25 101/51 (68) 100 07/15/19 00:00 30 07/15/19 00:00 99.7 83 24 104/45 (64) 99 07/15/19 00:00 Nasal Cannula 2.0 07/14/19 23:30 83 26 95/54 (68) 99 07/14/19 23:15 99 31 85 Facial 30 07/14/19 23:00 81 27 101/45 (63) 100 07/14/19 22:30 82 28 108/46 (66) 100 07/14/19 22:00 83 31 98/47 (64) 100 07/14/19 21:58 109/51 07/14/19 21:45 82 23 100/47 (64) 99 07/14/19 21:30 83 26 98/45 (62) 100 07/14/19 21:14 100 33 80 Facial 30 07/14/19 21:00 85 22 100/46 (64) 100 07/14/19 20:30 90 22 127/93 (104) 97 07/14/19 20:00 Nasal Cannula 2.0 07/14/19 20:00 30 07/14/19 20:00 89 07/14/19 20:00 98.1 87 22 116/59 (78) 100 07/14/19 19:30 87 22 111/86 (94) 100 07/14/19 19:00 87 29 110/54 (72) 99 07/14/19 18:59 98 31 98 Facial 30 07/14/19 18:58 98 Nasal Cannula 2.0 28 07/14/19 18:30 86 25 102/60 (74) 98 07/14/19 18:00 85 26 109/51 (70) 98 07/14/19 17:30 86 26 115/85 (95) 100 07/14/19 17:00 85 21 97/52 (67) 100 07/14/19 16:00 83 07/14/19 16:00 Nasal Cannula 2.0 07/14/19 16:00 99.5 84 21 99/45 (63) 100 07/14/19 16:00 2.0 07/14/19 15:59 96/46 07/14/19 15:30 89 23 109/55 (73) 96 07/14/19 15:00 88 27 105/54 (71) 100 07/14/19 14:31 83 26 100 Nasal Cannula 2.0 28 86 27 100 07/14/19 14:15 89 23 102/55 (71) 99 07/14/19 14:00 100.0 88 24 99/50 (66) 100 07/14/19 13:00 88 27 106/53 (70) 99 07/14/19 12:30 88 25 100/47 (64) 99 07/14/19 12:00 87 27 92/35 (54) 97 07/14/19 12:00 86 07/14/19 12:00 Nasal Cannula 2.0 07/14/19 12:00 2.0 07/14/19 11:30 87 26 104/47 (66) 98 07/14/19 11:05 85/39 07/14/19 11:00 87 29 81/63 (69) 98 07/14/19 10:31 72 22 99 Nasal Cannula 2.0 28 84 26 98 07/14/19 10:30 84 24 97/49 (65) 100 07/14/19 10:00 85 96/41 (59) 97 07/14/19 09:00 84 29 101/51 (68) 96 Labs: Labs Test 07/13/19 04:10 07/13/19 11:20 07/13/19 21:30 07/14/19 04:50 White Blood Count 44.1 K/UL (4.8-10.8) 40.8 K/UL (4.8-10.8) 44.7 K/UL (4.8-10.8) Red Blood Count 2.07 M/UL (4.70-6.10) 2.19 M/UL (4.70-6.10) 2.67 M/UL (4.70-6.10) Hemoglobin 6.4 G/DL (14.2-18.0) 6.8 G/DL (14.2-18.0) 8.0 G/DL (14.2-18.0) Hematocrit 20.6 % (42.0-52.0) 20.7 % (42.0-52.0) 25.2 % (42.0-52.0) Mean Corpuscular Volume 99 FL (80-99) 95 FL (80-99) 95 FL (80-99) Mean Corpuscular Hemoglobin 31.1 PG (27.0-31.0) 31.1 PG (27.0-31.0) 30.0 PG (27.0-31.0) Mean Corpuscular Hemoglobin Concent 31.3 G/DL (32.0-36.0) 32.8 G/DL (32.0-36.0) 31.7 G/DL (32.0-36.0) Red Cell Distribution Width 24.2 % (11.6-14.8) 21.8 % (11.6-14.8) 21.4 % (11.6-14.8) Platelet Count 152 K/UL (150-450) 104 K/UL (150-450) 127 K/UL (150-450) Mean Platelet Volume 10.1 FL (6.5-10.1) 10.8 FL (6.5-10.1) 12.0 FL (6.5-10.1) Neutrophils (%) (Auto) % (45.0-75.0) % (45.0-75.0) % (45.0-75.0) Lymphocytes (%) (Auto) % (20.0-45.0) % (20.0-45.0) % (20.0-45.0) Monocytes (%) (Auto) % (1.0-10.0) % (1.0-10.0) % (1.0-10.0) Eosinophils (%) (Auto) % (0.0-3.0) % (0.0-3.0) % (0.0-3.0) Basophils (%) (Auto) % (0.0-2.0) % (0.0-2.0) % (0.0-2.0) Differential Total Cells Counted 100 100 100 Neutrophils % (Manual) 85 % (45-75) 80 % (45-75) 79 % (45-75) Lymphocytes % (Manual) 5 % (20-45) 12 % (20-45) 5 % (20-45) Monocytes % (Manual) 5 % (1-10) 2 % (1-10) 7 % (1-10) Eosinophils % (Manual) 4 % (0-3) 2 % (0-3) 2 % (0-3) Basophils % (Manual) 0 % (0-2) 0 % (0-2) 0 % (0-2) Band Neutrophils 1 % (0-8) 4 % (0-8) 7 % (0-8) Platelet Estimate Adequate Decreased Decreased Platelet Morphology Normal Normal Normal Polychromasia 1+ 1+ Hypochromasia 2+ 1+ Anisocytosis 3+ 2+ 2+ Sodium Level 155 MMOL/L (136-145) 146 MMOL/L (136-145) Potassium Level 3.3 MMOL/L (3.5-5.1) 3.3 MMOL/L (3.5-5.1) Chloride Level 116 MMOL/L (98-107) 108 MMOL/L (98-107) Carbon Dioxide Level 15 MMOL/L (21-32) 18 MMOL/L (21-32) Anion Gap 25 mmol/L (5-15) 20 mmol/L (5-15) Blood Urea Nitrogen 97 mg/dL (7-18) 75 mg/dL (7-18) Creatinine 11.9 MG/DL (0.55-1.30) 9.1 MG/DL (0.55-1.30) Estimat Glomerular Filtration Rate 4.8 mL/min (>60) 6.5 mL/min (>60) Glucose Level 151 MG/DL (74-106) 173 MG/DL (74-106) Uric Acid 18.2 MG/DL (2.6-7.2) Calcium Level 7.2 MG/DL (8.5-10.1) 6.8 MG/DL (8.5-10.1) Phosphorus Level 9.6 MG/DL (2.5-4.9) Magnesium Level 3.0 MG/DL (1.8-2.4) Total Bilirubin 36.1 MG/DL (0.2-1.0) 38.8 MG/DL (0.2-1.0) Direct Bilirubin 28.7 MG/DL (0.0-0.3) 30.6 MG/DL (0.0-0.3) Aspartate Amino Transf (AST/SGOT) 140 U/L (15-37) 189 U/L (15-37) Alanine Aminotransferase (ALT/SGPT) 11 U/L (12-78) 15 U/L (12-78) Alkaline Phosphatase 227 U/L (46-116) 244 U/L (46-116) Total Protein 4.7 G/DL (6.4-8.2) 5.0 G/DL (6.4-8.2) Albumin 1.6 G/DL (3.4-5.0) 1.8 G/DL (3.4-5.0) Globulin 3.1 g/dL 3.2 g/dL Albumin/Globulin Ratio 0.5 (1.0-2.7) 0.6 (1.0-2.7) Prothrombin Time 24.0 SEC (9.30-11.50) 20.1 SEC (9.30-11.50) Prothromb Time International Ratio 2.4 (0.9-1.1) 2.0 (0.9-1.1) Activated Partial Thromboplast Time 65 SEC (23-33) Fibrinogen 230 mg/dL (200-400) Ammonia 100 umol/L (11-32) Test 07/15/19 04:00 White Blood Count 41.2 K/UL (4.8-10.8) Red Blood Count 2.39 M/UL (4.70-6.10) Hemoglobin 7.2 G/DL (14.2-18.0) Hematocrit 22.3 % (42.0-52.0) Mean Corpuscular Volume 93 FL (80-99) Mean Corpuscular Hemoglobin 30.3 PG (27.0-31.0) Mean Corpuscular Hemoglobin Concent 32.6 G/DL (32.0-36.0) Red Cell Distribution Width 22.5 % (11.6-14.8) Platelet Count 102 K/UL (150-450) Mean Platelet Volume 10.7 FL (6.5-10.1) Neutrophils (%) (Auto) % (45.0-75.0) Lymphocytes (%) (Auto) % (20.0-45.0) Monocytes (%) (Auto) % (1.0-10.0) Eosinophils (%) (Auto) % (0.0-3.0) Basophils (%) (Auto) % (0.0-2.0) Sodium Level 146 MMOL/L (136-145) Potassium Level 2.8 MMOL/L (3.5-5.1) Chloride Level 110 MMOL/L (98-107) Carbon Dioxide Level 14 MMOL/L (21-32) Anion Gap 23 mmol/L (5-15) Blood Urea Nitrogen 87 mg/dL (7-18) Creatinine 10.1 MG/DL (0.55-1.30) Estimat Glomerular Filtration Rate 5.8 mL/min (>60) Glucose Level 132 MG/DL (74-106) Calcium Level 6.9 MG/DL (8.5-10.1) Total Bilirubin 35.5 MG/DL (0.2-1.0) Direct Bilirubin 28.2 MG/DL (0.0-0.3) Aspartate Amino Transf (AST/SGOT) 171 U/L (15-37) Alanine Aminotransferase (ALT/SGPT) 14 U/L (12-78) Alkaline Phosphatase 240 U/L (46-116) Total Protein 4.6 G/DL (6.4-8.2) Albumin 1.5 G/DL (3.4-5.0) Objective: WDWN NAD clear breath sounds bilaterally without rhonchi or wheeze [id number] without MRG NABS nontender no HSM no CC noted edema reduced LOC Reji Huitron MD Jul 15, 2019 08:59
[2019-07-15] MEDS: KCl 20mEq 100ml Premix IVPB SCH ×3 (10:01→14:24)
--- NOTE | 2019-07-15 10:04 | Infectious Diseases Prog Note ---
Assessment/Plan Assessment/Plan IMPRESSION: 1. Sepsis. 2. leukocytosis 3. Tachycardia. 4. Leukocytosis. 5. colitis, 6.Alcoholic pancreatitis, 7.Cirrhosis of liver, 8. Acute renal failure likely hepatorenal syndrome, - ESRD 9.Anemia, 10. thrombocytopenia, 11.hypocalcemia, 12.hypomagnesemia, corrected 13 hypokalemia, 14, Alcohol withdrawal. 15.Metabolic encephalopathy 16. Hypophosphatemia 17. Hypernatremia 18. Hypoxic respiratory failure 19 GI bleeding RECOMMENDATION: Continue Cefepime Stool for C.difficile: negative Poor prognosis Subjective ROS Limited/Unobtainable: Yes Constitutional: Reports: fever, other - [id number] Neurologic: Reports: other - drawsy on restraint Allergies: Coded Allergies: No Known Allergies (Unverified , 06/20/19) Objective Vital Signs Last 24 Hour Vital Signs Date Time Temp Pulse Resp B/P (MAP) Pulse Ox O2 Delivery O2 Flow Rate FiO2 07/15/19 09:00 78 26 96/48 (64) 99 07/15/19 08:00 98.5 77 25 92/51 (65) 99 07/15/19 08:00 2.0 07/15/19 08:00 Nasal Cannula 2.0 07/15/19 07:01 99 Nasal Cannula 2.0 28 07/15/19 07:00 74 22 90/41 (57) 100 07/15/19 06:30 75 25 87/48 (61) 99 07/15/19 06:00 77 23 103/49 (67) 99 07/15/19 05:30 76 24 84/26 (45) 99 07/15/19 05:00 80 24 101/47 (65) 99 07/15/19 04:30 78 20 92/43 (59) 98 07/15/19 04:00 78 07/15/19 04:00 98.8 78 19 103/48 (66) 99 07/15/19 04:00 Nasal Cannula 2.0 07/15/19 04:00 2.0 07/15/19 03:30 77 20 97/45 (62) 99 07/15/19 03:00 77 24 93/47 (62) 100 07/15/19 02:30 79 21 105/51 (69) 100 07/15/19 02:00 76 24 88/40 (56) 100 07/15/19 02:00 2.0 07/15/19 01:30 88 25 103/49 (67) 100 07/15/19 01:05 78 27 100 Facial 30 07/15/19 01:00 79 27 101/43 (62) 100 07/15/19 00:30 82 25 101/51 (68) 100 07/15/19 00:00 30 07/15/19 00:00 99.7 83 24 104/45 (64) 99 07/15/19 00:00 Nasal Cannula 2.0 07/14/19 23:30 83 26 95/54 (68) 99 07/14/19 23:15 99 31 85 Facial 30 07/14/19 23:00 81 27 101/45 (63) 100 07/14/19 22:30 82 28 108/46 (66) 100 07/14/19 22:00 83 31 98/47 (64) 100 07/14/19 21:58 109/51 07/14/19 21:45 82 23 100/47 (64) 99 07/14/19 21:30 83 26 98/45 (62) 100 07/14/19 21:14 100 33 80 Facial 30 07/14/19 21:00 85 22 100/46 (64) 100 07/14/19 20:30 90 22 127/93 (104) 97 07/14/19 20:00 Nasal Cannula 2.0 07/14/19 20:00 30 07/14/19 20:00 89 07/14/19 20:00 98.1 87 22 116/59 (78) 100 07/14/19 19:30 87 22 111/86 (94) 100 07/14/19 19:00 87 29 110/54 (72) 99 07/14/19 18:59 98 31 98 Facial 30 07/14/19 18:58 98 Nasal Cannula 2.0 28 07/14/19 18:30 86 25 102/60 (74) 98 07/14/19 18:00 85 26 109/51 (70) 98 07/14/19 17:30 86 26 115/85 (95) 100 07/14/19 17:00 85 21 97/52 (67) 100 07/14/19 16:00 83 07/14/19 16:00 Nasal Cannula 2.0 07/14/19 16:00 99.5 84 21 99/45 (63) 100 07/14/19 16:00 2.0 07/14/19 15:59 96/46 07/14/19 15:30 89 23 109/55 (73) 96 07/14/19 15:00 88 27 105/54 (71) 100 07/14/19 14:31 83 26 100 Nasal Cannula 2.0 28 86 27 100 07/14/19 14:15 89 23 102/55 (71) 99 07/14/19 14:00 100.0 88 24 99/50 (66) 100 07/14/19 13:00 88 27 106/53 (70) 99 07/14/19 12:30 88 25 100/47 (64) 99 07/14/19 12:00 87 27 92/35 (54) 97 07/14/19 12:00 86 07/14/19 12:00 Nasal Cannula 2.0 07/14/19 12:00 2.0 07/14/19 11:30 87 26 104/47 (66) 98 07/14/19 11:05 85/39 07/14/19 11:00 87 29 81/63 (69) 98 07/14/19 10:31 72 22 99 Nasal Cannula 2.0 28 84 26 98 07/14/19 10:30 84 24 97/49 (65) 100 Height (Feet): 5 Height (Inches): 9.00 Weight (Pounds): 225 HEENT: mucous membranes moist, other - icterus Respiratory/Chest: lungs clear Cardiovascular: normal rate, other - PICC line & Carrillo's catheter Abdomen: distended, other - rectal tube Extremities: other - edema Neurologic/Psychiatric: disoriented, other - lethargic Laboratory Tests Test 07/15/19 04:00 White Blood Count 41.2 K/UL (4.8-10.8) *H Red Blood Count 2.39 M/UL (4.70-6.10) L Hemoglobin 7.2 G/DL (14.2-18.0) L Hematocrit 22.3 % (42.0-52.0) L Mean Corpuscular Volume 93 FL (80-99) Mean Corpuscular Hemoglobin 30.3 PG (27.0-31.0) Mean Corpuscular Hemoglobin Concent 32.6 G/DL (32.0-36.0) Red Cell Distribution Width 22.5 % (11.6-14.8) H Platelet Count 102 K/UL (150-450) L Mean Platelet Volume 10.7 FL (6.5-10.1) H Neutrophils (%) (Auto) % (45.0-75.0) Lymphocytes (%) (Auto) % (20.0-45.0) Monocytes (%) (Auto) % (1.0-10.0) Eosinophils (%) (Auto) % (0.0-3.0) Basophils (%) (Auto) % (0.0-2.0) Differential Total Cells Counted 100 Neutrophils % (Manual) 91 % (45-75) H Lymphocytes % (Manual) 3 % (20-45) L Monocytes % (Manual) 3 % (1-10) Eosinophils % (Manual) 1 % (0-3) Basophils % (Manual) 0 % (0-2) Band Neutrophils 2 % (0-8) Platelet Estimate Decreased L Platelet Morphology Normal Hypochromasia Anisocytosis 2+ Sodium Level 146 MMOL/L (136-145) H Potassium Level 2.8 MMOL/L (3.5-5.1) L Chloride Level 110 MMOL/L (98-107) H Carbon Dioxide Level 14 MMOL/L (21-32) L Anion Gap 23 mmol/L (5-15) H Blood Urea Nitrogen 87 mg/dL (7-18) H Creatinine 10.1 MG/DL (0.55-1.30) H Estimat Glomerular Filtration Rate 5.8 mL/min (>60) Glucose Level 132 MG/DL (74-106) H Calcium Level 6.9 MG/DL (8.5-10.1) L Total Bilirubin 35.5 MG/DL (0.2-1.0) H Direct Bilirubin 28.2 MG/DL (0.0-0.3) H Aspartate Amino Transf (AST/SGOT) 171 U/L (15-37) H Alanine Aminotransferase (ALT/SGPT) 14 U/L (12-78) Alkaline Phosphatase 240 U/L (46-116) H Total Protein 4.6 G/DL (6.4-8.2) L Albumin 1.5 G/DL (3.4-5.0) L Current Medications Medications (Trade) Dose Ordered Sig/Gabriela Route PRN Reason Start Time Stop Time Status Last Admin Dose Admin Cefepime HCl 1 gm/ Dextrose 55 ml @ 110 mls/hr Q24H IVPB 07/13/19 08:00 07/20/19 07:59 07/15/19 08:34 Chlorhexidine Gluconate (Emilie-Hex 2%) 1 applic DAILY@2000 TOPIC 06/26/19 20:00 07/26/19 19:59 07/14/19 20:51 Dextrose/Sodium Chloride 1,000 ml @ 40 mls/hr Q24H IV 07/13/19 12:45 08/12/19 12:44 07/15/19 01:33 Dopamine HCl/ Dextrose 250 ml @ 0 mls/hr Q24H IV 06/30/19 14:53 07/30/19 14:52 07/13/19 19:25 Epoetin Michael (Epoetin Michael(ESRD on dialysis)) 2,000 unit TUE-TUE-TUE SUBQ 07/02/19 21:00 08/01/19 20:59 07/13/19 21:22 Epoetin Michael (Epoetin Michael(ESRD on dialysis)) 3,000 unit TUE-TUE-TUE SUBQ 07/02/19 21:00 08/01/19 20:59 07/13/19 21:22 Lactulose (Cephulac) 30 gm FOUR TIMES A DAY NG 07/01/19 09:00 07/20/19 12:59 07/15/19 08:34 Multivitamins (Multivitamins) 1 tab DAILY ORAL 07/10/19 09:00 08/09/19 08:59 07/15/19 08:34 Norepinephrine Bitartrate 8 mg/ Dextrose 558 ml @ 0 mls/hr Q24H IV 07/12/19 21:30 08/11/19 21:29 07/14/19 21:58 Octreotide Acetate 500 mcg/ Sodium Chloride 500 ml @ 50 mls/hr Q10H IV 07/13/19 10:30 08/12/19 10:29 07/15/19 01:34 Pantoprazole (Protonix) 40 mg EVERY 12 HOURS IVP 07/13/19 10:00 08/12/19 09:59 07/15/19 08:34 Potassium Chloride 100 ml @ 50 mls/hr Q2H IVPB 07/15/19 10:00 07/15/19 15:59 Thiamine HCl (Vitamin B1) 100 mg DAILY ORAL 07/10/19 09:00 08/09/19 08:59 07/15/19 08:34 Ilia Chakraborty MD Jul 15, 2019 10:04
[2019-07-15] MEDS: Norepinephrine Bitartrate 8 MG in D5W 500ml 550 ML IV SCH ×2 (10:33→19:13)
--- NOTE | 2019-07-15 11:19 | Nephrology Progress Note ---
Assessment/Plan Problem List: (1) End-stage liver disease (2) Hepatorenal syndrome (3) Pancreatitis, alcoholic, acute (4) Acute alcoholic intoxication (5) Anemia (6) Respiratory failure (7) Hypernatremia Assessment Acute alcoholic intoxication End-stage liver disease Hepatorenal syndrome Pancreatitis, alcoholic, acute Anemia Plan Hypotensive- on pressors not tolerated dialysis last time due to low BP 07/13 K supplement trial paracenthesis done I CONSIDER TREATMENT OF THIS PATIENT TO BE FUTILE correct low K per orders on 06/28/19 met with Brother- Liliana zonia Reyes [employer] Brother will discuss with family regarding DNR and comfort care Subjective ROS Limited/Unobtainable: Yes Interval Events/Complaints on pressors Constitutional: Reports: malaise, weakness Objective Objective Last 24 Hour Vital Signs Date Time Temp Pulse Resp B/P (MAP) Pulse Ox O2 Delivery O2 Flow Rate FiO2 07/15/19 10:33 101/47 07/15/19 10:00 79 27 112/50 (70) 99 07/15/19 09:00 78 26 96/48 (64) 99 07/15/19 08:00 98.5 77 25 92/51 (65) 99 07/15/19 08:00 2.0 07/15/19 08:00 Nasal Cannula 2.0 07/15/19 07:01 99 Nasal Cannula 2.0 28 07/15/19 07:00 74 22 90/41 (57) 100 07/15/19 06:30 75 25 87/48 (61) 99 07/15/19 06:00 77 23 103/49 (67) 99 07/15/19 05:30 76 24 84/26 (45) 99 07/15/19 05:00 80 24 101/47 (65) 99 07/15/19 04:30 78 20 92/43 (59) 98 07/15/19 04:00 78 07/15/19 04:00 98.8 78 19 103/48 (66) 99 07/15/19 04:00 Nasal Cannula 2.0 07/15/19 04:00 2.0 07/15/19 03:30 77 20 97/45 (62) 99 07/15/19 03:00 77 24 93/47 (62) 100 07/15/19 02:30 79 21 105/51 (69) 100 07/15/19 02:00 76 24 88/40 (56) 100 07/15/19 02:00 2.0 07/15/19 01:30 88 25 103/49 (67) 100 07/15/19 01:05 78 27 100 Facial 30 07/15/19 01:00 79 27 101/43 (62) 100 07/15/19 00:30 82 25 101/51 (68) 100 07/15/19 00:00 30 07/15/19 00:00 99.7 83 24 104/45 (64) 99 07/15/19 00:00 Nasal Cannula 2.0 07/14/19 23:30 83 26 95/54 (68) 99 07/14/19 23:15 99 31 85 Facial 30 07/14/19 23:00 81 27 101/45 (63) 100 07/14/19 22:30 82 28 108/46 (66) 100 07/14/19 22:00 83 31 98/47 (64) 100 07/14/19 21:58 109/51 07/14/19 21:45 82 23 100/47 (64) 99 07/14/19 21:30 83 26 98/45 (62) 100 07/14/19 21:14 100 33 80 Facial 30 07/14/19 21:00 85 22 100/46 (64) 100 07/14/19 20:30 90 22 127/93 (104) 97 07/14/19 20:00 Nasal Cannula 2.0 07/14/19 20:00 30 07/14/19 20:00 89 07/14/19 20:00 98.1 87 22 116/59 (78) 100 07/14/19 19:30 87 22 111/86 (94) 100 07/14/19 19:00 87 29 110/54 (72) 99 07/14/19 18:59 98 31 98 Facial 30 07/14/19 18:58 98 Nasal Cannula 2.0 28 07/14/19 18:30 86 25 102/60 (74) 98 07/14/19 18:00 85 26 109/51 (70) 98 07/14/19 17:30 86 26 115/85 (95) 100 07/14/19 17:00 85 21 97/52 (67) 100 9/21/19 16:00 83 07/14/19 16:00 Nasal Cannula 2.0 07/14/19 16:00 99.5 84 21 99/45 (63) 100 07/14/19 16:00 2.0 07/14/19 15:59 96/46 07/14/19 15:30 89 23 109/55 (73) 96 07/14/19 15:00 88 27 105/54 (71) 100 07/14/19 14:31 83 26 100 Nasal Cannula 2.0 28 86 27 100 07/14/19 14:15 89 23 102/55 (71) 99 07/14/19 14:00 100.0 88 24 99/50 (66) 100 07/14/19 13:00 88 27 106/53 (70) 99 07/14/19 12:30 88 25 100/47 (64) 99 07/14/19 12:00 87 27 92/35 (54) 97 07/14/19 12:00 86 07/14/19 12:00 Nasal Cannula 2.0 07/14/19 12:00 2.0 07/14/19 11:30 87 26 104/47 (66) 98 Intake and Output 07/14/19 07/15/19 18:59 06:59 Intake Total 2444.62 ml 2479.22 ml Output Total 600 ml 0 ml Balance 1844.62 ml 2479.22 ml IV Total 2444.62 ml 2479.22 ml Output Urine Total 0 ml 0 ml Stool Total 600 ml Laboratory Tests 07/15/19 04:00: White Blood Count 41.2*H, Red Blood Count 2.39L, Hemoglobin 7.2L, Hematocrit 22.3L, Mean Corpuscular Volume 93, Mean Corpuscular Hemoglobin 30.3, Mean Corpuscular Hemoglobin Concent 32.6, Red Cell Distribution Width 22.5H, Platelet Count 102L, Mean Platelet Volume 10.7H, Neutrophils (%) (Auto) , Lymphocytes (%) (Auto) , Monocytes (%) (Auto) , Eosinophils (%) (Auto) , Basophils (%) (Auto) , Differential Total Cells Counted 100, Neutrophils % ( Manual) 91H, Lymphocytes % (Manual) 3L, Monocytes % (Manual) 3, Eosinophils % ( Manual) 1, Basophils % (Manual) 0, Band Neutrophils 2, Platelet Estimate DecreasedL, Platelet Morphology Normal, Hypochromasia , Anisocytosis 2+, Sodium Level 146H, Potassium Level 2.8L, Chloride Level 110H, Carbon Dioxide Level 14L , Anion Gap 23H, Blood Urea Nitrogen 87H, Creatinine 10.1H, Estimat Glomerular Filtration Rate 5.8, Glucose Level 132H, Calcium Level 6.9L, Total Bilirubin 35.5H, Direct Bilirubin 28.2H, Aspartate Amino Transf (AST/SGOT) 171H, Alanine Aminotransferase (ALT/SGPT) 14, Alkaline Phosphatase 240H, Total Protein 4.6L, Albumin 1.5L Height (Feet): 5 Height (Inches): 9.00 Weight (Pounds): 225 General Appearance: lethargic, confused, mild distress EENT: other - icteric Cardiovascular: tachycardia Respiratory/Chest: decreased breath sounds Abdomen: distended Arthur Lay MD Jul 15, 2019 11:19
--- NOTE | 2019-07-15 14:03 | Surgery Progress Note ---
Surgery Progress Note Subjective Symptoms: other Objective Last 24 Hour Vital Signs Date Time Temp Pulse Resp B/P (MAP) Pulse Ox O2 Delivery O2 Flow Rate FiO2 07/15/19 13:37 79 33 100 Facial 30 07/15/19 13:00 97 21 97/51 (66) 100 07/15/19 12:00 2.0 07/15/19 12:00 Nasal Cannula 2.0 07/15/19 12:00 98.8 79 26 98/48 (65) 99 07/15/19 12:00 81 07/15/19 11:00 80 27 101/44 (63) 99 07/15/19 10:33 101/47 07/15/19 10:00 79 27 112/50 (70) 99 07/15/19 09:00 78 26 96/48 (64) 99 07/15/19 08:00 78 07/15/19 08:00 98.5 77 25 92/51 (65) 99 07/15/19 08:00 2.0 07/15/19 08:00 Nasal Cannula 2.0 07/15/19 07:01 99 Nasal Cannula 2.0 28 07/15/19 07:00 74 22 90/41 (57) 100 07/15/19 06:30 75 25 87/48 (61) 99 07/15/19 06:00 77 23 103/49 (67) 99 07/15/19 05:30 76 24 84/26 (45) 99 07/15/19 05:00 80 24 101/47 (65) 99 07/15/19 04:30 78 20 92/43 (59) 98 07/15/19 04:00 78 07/15/19 04:00 98.8 78 19 103/48 (66) 99 07/15/19 04:00 Nasal Cannula 2.0 07/15/19 04:00 2.0 07/15/19 03:30 77 20 97/45 (62) 99 07/15/19 03:00 77 24 93/47 (62) 100 07/15/19 02:30 79 21 105/51 (69) 100 07/15/19 02:00 76 24 88/40 (56) 100 07/15/19 02:00 2.0 07/15/19 01:30 88 25 103/49 (67) 100 07/15/19 01:05 78 27 100 Facial 30 07/15/19 01:00 79 27 101/43 (62) 100 07/15/19 00:30 82 25 101/51 (68) 100 07/15/19 00:00 30 07/15/19 00:00 99.7 83 24 104/45 (64) 99 07/15/19 00:00 Nasal Cannula 2.0 07/14/19 23:30 83 26 95/54 (68) 99 07/14/19 23:15 99 31 85 Facial 30 07/14/19 23:00 81 27 101/45 (63) 100 07/14/19 22:30 82 28 108/46 (66) 100 07/14/19 22:00 83 31 98/47 (64) 100 07/14/19 21:58 109/51 07/14/19 21:45 82 23 100/47 (64) 99 07/14/19 21:30 83 26 98/45 (62) 100 07/14/19 21:14 100 33 80 Facial 30 07/14/19 21:00 85 22 100/46 (64) 100 07/14/19 20:30 90 22 127/93 (104) 97 07/14/19 20:00 Nasal Cannula 2.0 07/14/19 20:00 30 07/14/19 20:00 89 07/14/19 20:00 98.1 87 22 116/59 (78) 100 07/14/19 19:30 87 22 111/86 (94) 100 07/14/19 19:00 87 29 110/54 (72) 99 07/14/19 18:59 98 31 98 Facial 30 07/14/19 18:58 98 Nasal Cannula 2.0 28 07/14/19 18:30 86 25 102/60 (74) 98 07/14/19 18:00 85 26 109/51 (70) 98 07/14/19 17:30 86 26 115/85 (95) 100 07/14/19 17:00 85 21 97/52 (67) 100 07/14/19 16:00 83 07/14/19 16:00 Nasal Cannula 2.0 07/14/19 16:00 99.5 84 21 99/45 (63) 100 07/14/19 16:00 2.0 07/14/19 15:59 96/46 07/14/19 15:30 89 23 109/55 (73) 96 07/14/19 15:00 88 27 105/54 (71) 100 07/14/19 14:31 83 26 100 Nasal Cannula 2.0 28 86 27 100 07/14/19 14:15 89 23 102/55 (71) 99 I&O Intake and Output 07/14/19 07/15/19 18:59 06:59 Intake Total 2444.62 ml 2479.22 ml Output Total 600 ml 0 ml Balance 1844.62 ml 2479.22 ml IV Total 2444.62 ml 2479.22 ml Output Urine Total 0 ml 0 ml Stool Total 600 ml Dressing: dry Wound: other Drains: other Cardiovascular: RSR Respiratory: clear Abdomen: soft, flat, decreased bowel sounds Extremities: other Laboratory Tests Test 07/15/19 04:00 White Blood Count 41.2 K/UL (4.8-10.8) *H Red Blood Count 2.39 M/UL (4.70-6.10) L Hemoglobin 7.2 G/DL (14.2-18.0) L Hematocrit 22.3 % (42.0-52.0) L Mean Corpuscular Volume 93 FL (80-99) Mean Corpuscular Hemoglobin 30.3 PG (27.0-31.0) Mean Corpuscular Hemoglobin Concent 32.6 G/DL (32.0-36.0) Red Cell Distribution Width 22.5 % (11.6-14.8) H Platelet Count 102 K/UL (150-450) L Mean Platelet Volume 10.7 FL (6.5-10.1) H Neutrophils (%) (Auto) % (45.0-75.0) Lymphocytes (%) (Auto) % (20.0-45.0) Monocytes (%) (Auto) % (1.0-10.0) Eosinophils (%) (Auto) % (0.0-3.0) Basophils (%) (Auto) % (0.0-2.0) Differential Total Cells Counted 100 Neutrophils % (Manual) 91 % (45-75) H Lymphocytes % (Manual) 3 % (20-45) L Monocytes % (Manual) 3 % (1-10) Eosinophils % (Manual) 1 % (0-3) Basophils % (Manual) 0 % (0-2) Band Neutrophils 2 % (0-8) Platelet Estimate Decreased L Platelet Morphology Normal Hypochromasia Anisocytosis 2+ Sodium Level 146 MMOL/L (136-145) H Potassium Level 2.8 MMOL/L (3.5-5.1) L Chloride Level 110 MMOL/L (98-107) H Carbon Dioxide Level 14 MMOL/L (21-32) L Anion Gap 23 mmol/L (5-15) H Blood Urea Nitrogen 87 mg/dL (7-18) H Creatinine 10.1 MG/DL (0.55-1.30) H Estimat Glomerular Filtration Rate 5.8 mL/min (>60) Glucose Level 132 MG/DL (74-106) H Calcium Level 6.9 MG/DL (8.5-10.1) L Total Bilirubin 35.5 MG/DL (0.2-1.0) H Direct Bilirubin 28.2 MG/DL (0.0-0.3) H Aspartate Amino Transf (AST/SGOT) 171 U/L (15-37) H Alanine Aminotransferase (ALT/SGPT) 14 U/L (12-78) Alkaline Phosphatase 240 U/L (46-116) H Total Protein 4.6 G/DL (6.4-8.2) L Albumin 1.5 G/DL (3.4-5.0) L Plan Problems: (1) Pancreatitis, alcoholic, acute Assessment & Plan: Acute alcoholic pancreatitis. Levels fluctuating. Plan to check levels tomorrow Treat medically and conservatively for now If worsening leukocytosis may consider CT scan (2) Hepatorenal syndrome Assessment & Plan: Chronic liver disease acute, with acute pancreatitis and potential about her renal syndrome as noted. Currently stable treat conservatively no acute surgical intervention recommended Unfortunately invasive techniques not available at this facility Continue with ICU care and management (3) Respiratory failure (4) skin intergrety Assessment & Plan: Pt noted to have dry eschar bridge of nose. Periwound without erythema or fluctuance. Shearing noted to R and L clefts of buttocks. No exudate noted. Both heels firm and blanchable. Tx.Plan: Swab bridge of nose with Benzoin Tincture Twice Daily. Apply Moisture Barrier Paste to buttocks with each perineal care. Apply Cavilon Skin Barrier to both heels. Cover each heel with Optifoam drsg. Change every 7 days and prn. APM/MATTHEW mattress overlay. Reposition at least every 2hours or as tolerated. Off-load heels with pillow. (5) End-stage liver disease Assessment & Plan: DAILY ESTIMATED NEEDS: Needs based on Liver dz, 79kg adj 25-30 kcals/kg 3542-1545 total kcals 1-1.5 (w/ HD 1.2-1.8) g protein/kg 79-119g (w/ HD 95-142g) g total protein Fluid per MD NUTRITION DIAGNOSIS: * Decreased sodium and fat needs r/t liver disease, cirrhosis, acute pancreatitis as evidenced by Abd US, elev T bili (33.5), pt is jaundiced, fatty liver, elev ammonia and AST, elev lipse (643), h/o etoh abuse, adm w/ elev serum alcohol. * Swallowing difficulty R/T confusion, dysphagia as evidenced by NGT feeding initiated, seen by [employer] w/ rec to continue nonoral feeds at this time. CURRENT TF: NEPRO @45 + PS x1 PO DIET RECOMMENDATIONS: WHEN SAFE FOR ORAL FEEDING -> LOW NA/ LOW FAT (texture per [employer]) ENTERAL NUTRITION RECOMMENDATIONS: MAINTAIN NEPRO W/ DIALYSIS TXT: Nepro @45ml/hr x24 hrs + PS x1 to provide 1080ml, 1944 kcal, 87g pro, 785ml free H20 * Maintain Nepro @45ml/hr as tolerated. * Add Prosource x1 pack daily to better meet est pro needs on HD * HOB over 30 degrees/ water flush per MD ADDITIONAL RECOMMENDATIONS: 1) Calibrated bedscale wt 2) Monitor for ability to start oral feeding 3) Check lytes daily 4) Rec to re-add thiamine + Folate daily, add MVI x 1 5) REC TF CHANGE TO NEPRO W/ DIALYSIS TXT 6) Monitor BGs closely, need for hypoglycemics (6) Acute alcoholic intoxication Kennedy Ellison Jul 15, 2019 14:03
[2019-07-15] MEDS: DOPamine 400mg/250ml 250 ML IV SCH (14:53)
--- NOTE | 2019-07-15 15:43 | General Progress Note ---
Assessment/Plan Status: stable, progressing, deteriorating Assessment/Plan: Assessment EtOH abuse EtOH hepatitis leukocytosis Jaundice/liver failure HRS Hepatic encephalopathy anemia, thombocytopenia hypotension Terminal Recommendations pressors octreotide PPI antibiotics ? terminal care Subjective Allergies: Coded Allergies: No Known Allergies (Unverified , 06/20/19) Subjective above noted seen in ICU d/w RN sleepy hypotensive Objective Last 24 Hour Vital Signs Date Time Temp Pulse Resp B/P (MAP) Pulse Ox O2 Delivery O2 Flow Rate FiO2 07/15/19 15:21 81 32 100 Facial 30 07/15/19 15:00 86 24 115/67 (83) 100 07/15/19 14:53 119/55 07/15/19 14:00 78 20 100/61 (74) 100 07/15/19 13:37 79 33 100 Facial 30 07/15/19 13:00 97 21 97/51 (66) 100 07/15/19 12:00 2.0 07/15/19 12:00 Nasal Cannula 2.0 07/15/19 12:00 98.8 79 26 98/48 (65) 99 07/15/19 12:00 81 07/15/19 11:00 80 27 101/44 (63) 99 07/15/19 10:33 101/47 07/15/19 10:00 79 27 112/50 (70) 99 07/15/19 09:00 78 26 96/48 (64) 99 07/15/19 08:00 78 07/15/19 08:00 98.5 77 25 92/51 (65) 99 07/15/19 08:00 2.0 07/15/19 08:00 Nasal Cannula 2.0 07/15/19 07:01 99 Nasal Cannula 2.0 28 07/15/19 07:00 74 22 90/41 (57) 100 07/15/19 06:30 75 25 87/48 (61) 99 07/15/19 06:00 77 23 103/49 (67) 99 07/15/19 05:30 76 24 84/26 (45) 99 07/15/19 05:00 80 24 101/47 (65) 99 07/15/19 04:30 78 20 92/43 (59) 98 07/15/19 04:00 78 07/15/19 04:00 98.8 78 19 103/48 (66) 99 07/15/19 04:00 Nasal Cannula 2.0 07/15/19 04:00 2.0 07/15/19 03:30 77 20 97/45 (62) 99 07/15/19 03:00 77 24 93/47 (62) 100 07/15/19 02:30 79 21 105/51 (69) 100 07/15/19 02:00 76 24 88/40 (56) 100 07/15/19 02:00 2.0 07/15/19 01:30 88 25 103/49 (67) 100 07/15/19 01:05 78 27 100 Facial 30 07/15/19 01:00 79 27 101/43 (62) 100 07/15/19 00:30 82 25 101/51 (68) 100 07/15/19 00:00 30 07/15/19 00:00 99.7 83 24 104/45 (64) 99 07/15/19 00:00 Nasal Cannula 2.0 07/14/19 23:30 83 26 95/54 (68) 99 07/14/19 23:15 99 31 85 Facial 30 07/14/19 23:00 81 27 101/45 (63) 100 07/14/19 22:30 82 28 108/46 (66) 100 07/14/19 22:00 83 31 98/47 (64) 100 07/14/19 21:58 109/51 07/14/19 21:45 82 23 100/47 (64) 99 07/14/19 21:30 83 26 98/45 (62) 100 07/14/19 21:14 100 33 80 Facial 30 07/14/19 21:00 85 22 100/46 (64) 100 07/14/19 20:30 90 22 127/93 (104) 97 07/14/19 20:00 Nasal Cannula 2.0 07/14/19 20:00 30 07/14/19 20:00 89 07/14/19 20:00 98.1 87 22 116/59 (78) 100 07/14/19 19:30 87 22 111/86 (94) 100 07/14/19 19:00 87 29 110/54 (72) 99 07/14/19 18:59 98 31 98 Facial 30 07/14/19 18:58 98 Nasal Cannula 2.0 28 07/14/19 18:30 86 25 102/60 (74) 98 07/14/19 18:00 85 26 109/51 (70) 98 07/14/19 17:30 86 26 115/85 (95) 100 07/14/19 17:00 85 21 97/52 (67) 100 07/14/19 16:00 83 07/14/19 16:00 Nasal Cannula 2.0 07/14/19 16:00 99.5 84 21 99/45 (63) 100 07/14/19 16:00 2.0 07/14/19 15:59 96/46 Intake and Output 07/14/19 07/15/19 19:00 07:00 Intake Total 2436.25 ml 2386.784 ml Output Total 600 ml 0 ml Balance 1836.25 ml 2386.784 ml IV Total 2436.25 ml 2386.784 ml Output Urine Total 0 ml 0 ml Stool Total 600 ml Laboratory Tests 07/15/19 04:00: White Blood Count 41.2*H, Red Blood Count 2.39L, Hemoglobin 7.2L, Hematocrit 22.3L, Mean Corpuscular Volume 93, Mean Corpuscular Hemoglobin 30.3, Mean Corpuscular Hemoglobin Concent 32.6, Red Cell Distribution Width 22.5H, Platelet Count 102L, Mean Platelet Volume 10.7H, Neutrophils (%) (Auto) , Lymphocytes (%) (Auto) , Monocytes (%) (Auto) , Eosinophils (%) (Auto) , Basophils (%) (Auto) , Differential Total Cells Counted 100, Neutrophils % ( Manual) 91H, Lymphocytes % (Manual) 3L, Monocytes % (Manual) 3, Eosinophils % ( Manual) 1, Basophils % (Manual) 0, Band Neutrophils 2, Platelet Estimate DecreasedL, Platelet Morphology Normal, Hypochromasia , Anisocytosis 2+, Sodium Level 146H, Potassium Level 2.8L, Chloride Level 110H, Carbon Dioxide Level 14L , Anion Gap 23H, Blood Urea Nitrogen 87H, Creatinine 10.1H, Estimat Glomerular Filtration Rate 5.8, Glucose Level 132H, Calcium Level 6.9L, Total Bilirubin 35.5H, Direct Bilirubin 28.2H, Aspartate Amino Transf (AST/SGOT) 171H, Alanine Aminotransferase (ALT/SGPT) 14, Alkaline Phosphatase 240H, Total Protein 4.6L, Albumin 1.5L Height (Feet): 5 Height (Inches): 9.00 Weight (Pounds): 225 Objective Obese man NCAT supple CTA RR abd distended (+) edema somnolent, wakes up confused with stimulation Lucila Rios MD Jul 15, 2019 15:43
[2019-07-15] MEDS: Dyna-Hex 2% Top Sol 2oz TOPIC SCH (20:45)
--- NOTE | 2019-07-15 21:17 | General Progress Note ---
Assessment/Plan Problem List: (1) Anemia ICD Codes: D64.9 - Anemia, unspecified SNOMED: 397278829 Qualifiers: Qualified Codes: D64.9 - Anemia, unspecified (2) Acute alcoholic intoxication ICD Codes: F10.929 - Alcohol use, unspecified with intoxication, unspecified SNOMED: 42688915, 9872853 Qualifiers: Qualified Codes: F10.920 - Alcohol use, unspecified with intoxication, uncomplicated (3) End-stage liver disease ICD Codes: K72.90 - Hepatic failure, unspecified without coma SNOMED: 884381476 (4) Hepatorenal syndrome ICD Codes: K76.7 - Hepatorenal syndrome SNOMED: 37052833, 6182100 (5) Pancreatitis, alcoholic, acute ICD Codes: K85.20 - Alcohol induced acute pancreatitis without necrosis or infection SNOMED: 763837349, 3051087 Qualifiers: Qualified Codes: K85.20 - Alcohol induced acute pancreatitis without necrosis or infection (6) Respiratory failure ICD Codes: J96.90 - Respiratory failure, unspecified, unspecified whether with hypoxia or hypercapnia SNOMED: 078217070 Status: stable, progressing, deteriorating Assessment/Plan: etoh cirrhosis favor comfort care and hospice moniter for gi bleeding hepatic encephalopathy elevated lft is persistent s/p paracentesis hepatorenal syndrome Subjective ROS Limited/Unobtainable: Yes Allergies: Coded Allergies: No Known Allergies (Unverified , 06/20/19) Objective Last 24 Hour Vital Signs Date Time Temp Pulse Resp B/P (MAP) Pulse Ox O2 Delivery O2 Flow Rate FiO2 07/15/19 21:12 77 26 100 Full Face 30 07/15/19 19:14 80 39 100 Full Face 30 07/15/19 19:14 100 Bi-Pap 30 07/15/19 19:13 97/53 07/15/19 18:00 79 27 98/55 (69) 100 07/15/19 17:00 77 28 103/49 (67) 100 07/15/19 16:00 Nasal Cannula 2.0 07/15/19 16:00 78 07/15/19 16:00 98.6 76 25 95/57 (70) 100 07/15/19 16:00 30 07/15/19 15:21 81 32 100 Facial 30 07/15/19 15:00 86 24 115/67 (83) 100 07/15/19 14:53 119/55 07/15/19 14:00 78 20 100/61 (74) 100 07/15/19 13:37 79 33 100 Facial 30 07/15/19 13:33 30 07/15/19 13:00 97 21 97/51 (66) 100 07/15/19 12:00 2.0 07/15/19 12:00 Nasal Cannula 2.0 07/15/19 12:00 98.8 79 26 98/48 (65) 99 07/15/19 12:00 81 07/15/19 11:00 80 27 101/44 (63) 99 07/15/19 10:33 101/47 07/15/19 10:00 79 27 112/50 (70) 99 07/15/19 09:00 78 26 96/48 (64) 99 07/15/19 08:00 78 07/15/19 08:00 98.5 77 25 92/51 (65) 99 07/15/19 08:00 2.0 07/15/19 08:00 Nasal Cannula 2.0 07/15/19 07:01 99 Nasal Cannula 2.0 28 07/15/19 07:00 74 22 90/41 (57) 100 07/15/19 06:30 75 25 87/48 (61) 99 07/15/19 06:00 77 23 103/49 (67) 99 07/15/19 05:30 76 24 84/26 (45) 99 07/15/19 05:00 80 24 101/47 (65) 99 07/15/19 04:30 78 20 92/43 (59) 98 07/15/19 04:00 78 07/15/19 04:00 98.8 78 19 103/48 (66) 99 07/15/19 04:00 Nasal Cannula 2.0 07/15/19 04:00 2.0 07/15/19 03:30 77 20 97/45 (62) 99 07/15/19 03:00 77 24 93/47 (62) 100 07/15/19 02:30 79 21 105/51 (69) 100 07/15/19 02:00 76 24 88/40 (56) 100 07/15/19 02:00 2.0 07/15/19 01:30 88 25 103/49 (67) 100 07/15/19 01:05 78 27 100 Facial 30 07/15/19 01:00 79 27 101/43 (62) 100 07/15/19 00:30 82 25 101/51 (68) 100 07/15/19 00:00 30 07/15/19 00:00 99.7 83 24 104/45 (64) 99 07/15/19 00:00 Nasal Cannula 2.0 07/14/19 23:30 83 26 95/54 (68) 99 07/14/19 23:15 99 31 85 Facial 30 07/14/19 23:00 81 27 101/45 (63) 100 07/14/19 22:30 82 28 108/46 (66) 100 07/14/19 22:00 83 31 98/47 (64) 100 07/14/19 21:58 109/51 07/14/19 21:45 82 23 100/47 (64) 99 07/14/19 21:30 83 26 98/45 (62) 100 Intake and Output 07/14/19 07/15/19 19:00 07:00 Intake Total 2436.25 ml 2386.784 ml Output Total 600 ml 0 ml Balance 1836.25 ml 2386.784 ml IV Total 2436.25 ml 2386.784 ml Output Urine Total 0 ml 0 ml Stool Total 600 ml Laboratory Tests 07/15/19 04:00: White Blood Count 41.2*H, Red Blood Count 2.39L, Hemoglobin 7.2L, Hematocrit 22.3L, Mean Corpuscular Volume 93, Mean Corpuscular Hemoglobin 30.3, Mean Corpuscular Hemoglobin Concent 32.6, Red Cell Distribution Width 22.5H, Platelet Count 102L, Mean Platelet Volume 10.7H, Neutrophils (%) (Auto) , Lymphocytes (%) (Auto) , Monocytes (%) (Auto) , Eosinophils (%) (Auto) , Basophils (%) (Auto) , Differential Total Cells Counted 100, Neutrophils % ( Manual) 91H, Lymphocytes % (Manual) 3L, Monocytes % (Manual) 3, Eosinophils % ( Manual) 1, Basophils % (Manual) 0, Band Neutrophils 2, Platelet Estimate DecreasedL, Platelet Morphology Normal, Hypochromasia , Anisocytosis 2+, Sodium Level 146H, Potassium Level 2.8L, Chloride Level 110H, Carbon Dioxide Level 14L , Anion Gap 23H, Blood Urea Nitrogen 87H, Creatinine 10.1H, Estimat Glomerular Filtration Rate 5.8, Glucose Level 132H, Calcium Level 6.9L, Total Bilirubin 35.5H, Direct Bilirubin 28.2H, Aspartate Amino Transf (AST/SGOT) 171H, Alanine Aminotransferase (ALT/SGPT) 14, Alkaline Phosphatase 240H, Total Protein 4.6L, Albumin 1.5L Height (Feet): 5 Height (Inches): 9.00 Weight (Pounds): 225 Neck: supple Cardiovascular: normal rate Respiratory/Chest: lungs clear Abdomen: soft Deejay Saldaña MD Jul 15, 2019 21:17
[2019-07-16] VITALS (54 sets, daily range): BP systolic 73–114; BP diastolic 36–70
[2019-07-16] MEDS: Norepinephrine Bitartrate 8 MG in D5W 500ml 550 ML IV SCH ×4 (02:32→22:20)
[2019-07-16 05:09] LABS: HEMATOCRIT 23.3 % (42.0-52.0); HEMOGLOBIN 7.5 G/DL (14.2-18.0); MEAN CORPUSCULAR VOLUME 92 FL (80-99); PLATELET COUNT 82 K/UL (150-450); RED BLOOD COUNT 2.52 M/UL (4.70-6.10); RED CELL DISTRIBUTION WIDTH 22.9 % (11.6-14.8)
[2019-07-16 05:55] LABS: ALANINE AMINOTRANSFERASE 8 U/L (12-78); ALBUMIN 1.6 G/DL (3.4-5.0); ALKALINE PHOSPHATASE 277 U/L (46-116); ANION GAP 24 mmol/L (5-15); ASPARTATE AMINO TRANSFERASE 147 U/L (15-37); BILIRUBIN,DIRECT 29.3 MG/DL (0.0-0.3); BILIRUBIN,TOTAL 36.9 MG/DL (0.2-1.0); BLOOD UREA NITROGEN 96 mg/dL (7-18); CALCIUM 7.1 MG/DL (8.5-10.1); CARBON DIOXIDE 11 MMOL/L (21-32); CHLORIDE 109 MMOL/L (98-107); CREATININE 10.8 MG/DL (0.55-1.30); SODIUM 144 MMOL/L (136-145)
--- NOTE | 2019-07-16 08:18 | Critical Care Progress Note ---
Assessment/Plan Assessment/Plan Impression: Alcoholic hepatitis/fatty liver Liver failure GI bleeding Sepsis pneumonia clearing Hepatorenal syndrome - worsening renal function - on HD Multiorgan Failure Poor prognosis Possible Portal Hypertension Pancreatitis, alcoholic, acute Anemia Plan ICU management noted Antibiotics per ID- reviewed monitor HH Aspiration precautions BiPAP PRN- stable off NC O2 GI/Renal following- reviewed HD per Nephrology Monitor labs monitor oxygen needs Patient has poor prognosis overall with MODS medications/laboratory data/nursing notes/ICU care reviewed in detail note reviewed and edited care discussed with RN and RT ICU time spent 38 minutes Critical Care - Subjective Interval Events: care noted RT notes reviewed on oxygen ROS Limited/Unobtainable: Yes Condition: critical EKG Rhythm: Sinus Rhythm I&O: Intake and Output 07/15/19 07/16/19 19:00 07:00 Intake Total 2032.97 ml 1500.79 ml Output Total 950 ml 800 ml Balance 1082.97 ml 700.79 ml IV Total 1972.97 ml 1500.79 ml Other 60 ml Output Urine Total 0 ml 0 ml Stool Total 900 ml 800 ml Gastric Drainage Total 50 ml Critical Care - Objective Last 24 Hour Vital Signs Date Time Temp Pulse Resp B/P (MAP) Pulse Ox O2 Delivery O2 Flow Rate FiO2 07/16/19 06:51 98 Nasal Cannula 2.0 28 07/16/19 06:00 84 23 97/62 (74) 99 07/16/19 06:00 109/49 07/16/19 05:30 84 23 104/52 (69) 99 07/16/19 05:17 78 31 99 Full Face 30 07/16/19 05:00 100/51 07/16/19 05:00 75 22 103/43 (63) 100 07/16/19 04:30 76 27 99/56 (70) 100 07/16/19 04:00 98.7 77 24 104/54 (71) 100 07/16/19 04:00 73 07/16/19 04:00 103/51 07/16/19 04:00 30 07/16/19 04:00 Bi-pap 07/16/19 03:45 77 25 101/54 (70) 100 07/16/19 03:30 73 25 83/45 (58) 100 07/16/19 03:15 75 24 100/46 (64) 100 07/16/19 03:08 76 29 100 Full Face 30 07/16/19 03:00 83/45 07/16/19 03:00 77 24 98/52 (67) 100 07/16/19 02:32 91/44 07/16/19 02:30 78 23 91/44 (60) 100 07/16/19 02:00 86/49 07/16/19 02:00 77 26 101/54 (70) 100 07/16/19 01:30 75 27 98/68 (78) 07/16/19 01:00 95/58 07/16/19 01:00 76 24 100/47 (64) 07/16/19 00:57 88 34 100 Full Face 30 07/16/19 00:30 82 23 95/58 (70) 07/16/19 00:00 98.6 87 29 103/56 (72) 100 07/16/19 00:00 77 07/16/19 00:00 106/53 07/16/19 00:00 30 07/16/19 00:00 Bi-pap 07/15/19 23:30 78 27 103/54 (70) 100 07/15/19 23:00 78 25 105/49 (67) 100 07/15/19 22:56 79 36 100 Full Face 30 07/15/19 22:30 77 23 97/44 (61) 100 07/15/19 22:00 76 27 92/69 (77) 100 07/15/19 21:30 78 22 102/52 (69) 100 07/15/19 21:15 77 27 110/88 (95) 100 07/15/19 21:12 77 26 100 Full Face 30 07/15/19 21:00 77 28 93/49 (64) 100 07/15/19 20:45 73 22 93/57 (69) 100 07/15/19 20:30 79 27 101/66 (78) 100 07/15/19 20:15 78 26 104/50 (68) 100 07/15/19 20:00 77 07/15/19 20:00 Bi-pap 07/15/19 20:00 98.7 78 24 99/56 (70) 100 07/15/19 20:00 30 07/15/19 19:45 78 30 123/53 (76) 100 07/15/19 19:30 78 29 93/45 (61) 100 07/15/19 19:15 76 27 112/52 (72) 100 07/15/19 19:14 80 39 100 Full Face 30 07/15/19 19:14 100 Bi-Pap 30 07/15/19 19:13 97/53 07/15/19 19:00 76 26 97/53 (68) 100 07/15/19 18:00 79 27 98/55 (69) 100 07/15/19 17:00 77 28 103/49 (67) 100 07/15/19 16:00 Nasal Cannula 2.0 07/15/19 16:00 78 07/15/19 16:00 98.6 76 25 95/57 (70) 100 07/15/19 16:00 30 07/15/19 15:21 81 32 100 Facial 30 07/15/19 15:00 86 24 115/67 (83) 100 07/15/19 14:53 119/55 07/15/19 14:00 78 20 100/61 (74) 100 07/15/19 13:37 79 33 100 Facial 30 07/15/19 13:33 30 07/15/19 13:00 97 21 97/51 (66) 100 07/15/19 12:00 2.0 07/15/19 12:00 Nasal Cannula 2.0 07/15/19 12:00 98.8 79 26 98/48 (65) 99 07/15/19 12:00 81 07/15/19 11:00 80 27 101/44 (63) 99 07/15/19 10:33 101/47 07/15/19 10:00 79 27 112/50 (70) 99 07/15/19 09:00 78 26 96/48 (64) 99 Labs: Labs Test 07/13/19 11:20 07/13/19 21:30 07/14/19 04:50 07/15/19 04:00 Prothrombin Time 24.0 SEC (9.30-11.50) 20.1 SEC (9.30-11.50) Prothromb Time International Ratio 2.4 (0.9-1.1) 2.0 (0.9-1.1) Activated Partial Thromboplast Time 65 SEC (23-33) Fibrinogen 230 mg/dL (200-400) White Blood Count 40.8 K/UL (4.8-10.8) 44.7 K/UL (4.8-10.8) 41.2 K/UL (4.8-10.8) Red Blood Count 2.19 M/UL (4.70-6.10) 2.67 M/UL (4.70-6.10) 2.39 M/UL (4.70-6.10) Hemoglobin 6.8 G/DL (14.2-18.0) 8.0 G/DL (14.2-18.0) 7.2 G/DL (14.2-18.0) Hematocrit 20.7 % (42.0-52.0) 25.2 % (42.0-52.0) 22.3 % (42.0-52.0) Mean Corpuscular Volume 95 FL (80-99) 95 FL (80-99) 93 FL (80-99) Mean Corpuscular Hemoglobin 31.1 PG (27.0-31.0) 30.0 PG (27.0-31.0) 30.3 PG (27.0-31.0) Mean Corpuscular Hemoglobin Concent 32.8 G/DL (32.0-36.0) 31.7 G/DL (32.0-36.0) 32.6 G/DL (32.0-36.0) Red Cell Distribution Width 21.8 % (11.6-14.8) 21.4 % (11.6-14.8) 22.5 % (11.6-14.8) Platelet Count 104 K/UL (150-450) 127 K/UL (150-450) 102 K/UL (150-450) Mean Platelet Volume 10.8 FL (6.5-10.1) 12.0 FL (6.5-10.1) 10.7 FL (6.5-10.1) Neutrophils (%) (Auto) % (45.0-75.0) % (45.0-75.0) % (45.0-75.0) Lymphocytes (%) (Auto) % (20.0-45.0) % (20.0-45.0) % (20.0-45.0) Monocytes (%) (Auto) % (1.0-10.0) % (1.0-10.0) % (1.0-10.0) Eosinophils (%) (Auto) % (0.0-3.0) % (0.0-3.0) % (0.0-3.0) Basophils (%) (Auto) % (0.0-2.0) % (0.0-2.0) % (0.0-2.0) Differential Total Cells Counted 100 100 100 Neutrophils % (Manual) 80 % (45-75) 79 % (45-75) 91 % (45-75) Lymphocytes % (Manual) 12 % (20-45) 5 % (20-45) 3 % (20-45) Monocytes % (Manual) 2 % (1-10) 7 % (1-10) 3 % (1-10) Eosinophils % (Manual) 2 % (0-3) 2 % (0-3) 1 % (0-3) Basophils % (Manual) 0 % (0-2) 0 % (0-2) 0 % (0-2) Band Neutrophils 4 % (0-8) 7 % (0-8) 2 % (0-8) Platelet Estimate Decreased Decreased Decreased Platelet Morphology Normal Normal Normal Polychromasia 1+ Anisocytosis 2+ 2+ 2+ Hypochromasia 1+ Sodium Level 146 MMOL/L (136-145) 146 MMOL/L (136-145) Potassium Level 3.3 MMOL/L (3.5-5.1) 2.8 MMOL/L (3.5-5.1) Chloride Level 108 MMOL/L (98-107) 110 MMOL/L (98-107) Carbon Dioxide Level 18 MMOL/L (21-32) 14 MMOL/L (21-32) Anion Gap 20 mmol/L (5-15) 23 mmol/L (5-15) Blood Urea Nitrogen 75 mg/dL (7-18) 87 mg/dL (7-18) Creatinine 9.1 MG/DL (0.55-1.30) 10.1 MG/DL (0.55-1.30) Estimat Glomerular Filtration Rate 6.5 mL/min (>60) 5.8 mL/min (>60) Glucose Level 173 MG/DL (74-106) 132 MG/DL (74-106) Calcium Level 6.8 MG/DL (8.5-10.1) 6.9 MG/DL (8.5-10.1) Total Bilirubin 38.8 MG/DL (0.2-1.0) 35.5 MG/DL (0.2-1.0) Direct Bilirubin 30.6 MG/DL (0.0-0.3) 28.2 MG/DL (0.0-0.3) Aspartate Amino Transf (AST/SGOT) 189 U/L (15-37) 171 U/L (15-37) Alanine Aminotransferase (ALT/SGPT) 15 U/L (12-78) 14 U/L (12-78) Alkaline Phosphatase 244 U/L (46-116) 240 U/L (46-116) Ammonia 100 umol/L (11-32) Total Protein 5.0 G/DL (6.4-8.2) 4.6 G/DL (6.4-8.2) Albumin 1.8 G/DL (3.4-5.0) 1.5 G/DL (3.4-5.0) Globulin 3.2 g/dL Albumin/Globulin Ratio 0.6 (1.0-2.7) Test 07/16/19 04:30 White Blood Count 44.0 K/UL (4.8-10.8) Red Blood Count 2.52 M/UL (4.70-6.10) Hemoglobin 7.5 G/DL (14.2-18.0) Hematocrit 23.3 % (42.0-52.0) Mean Corpuscular Volume 92 FL (80-99) Mean Corpuscular Hemoglobin 29.8 PG (27.0-31.0) Mean Corpuscular Hemoglobin Concent 32.3 G/DL (32.0-36.0) Red Cell Distribution Width 22.9 % (11.6-14.8) Platelet Count 82 K/UL (150-450) Mean Platelet Volume 6.8 FL (6.5-10.1) Neutrophils (%) (Auto) % (45.0-75.0) Lymphocytes (%) (Auto) % (20.0-45.0) Monocytes (%) (Auto) % (1.0-10.0) Eosinophils (%) (Auto) % (0.0-3.0) Basophils (%) (Auto) % (0.0-2.0) Sodium Level 144 MMOL/L (136-145) Potassium Level 3.0 MMOL/L (3.5-5.1) Chloride Level 109 MMOL/L (98-107) Carbon Dioxide Level 11 MMOL/L (21-32) Anion Gap 24 mmol/L (5-15) Blood Urea Nitrogen 96 mg/dL (7-18) Creatinine 10.8 MG/DL (0.55-1.30) Estimat Glomerular Filtration Rate 5.3 mL/min (>60) Glucose Level 162 MG/DL (74-106) Calcium Level 7.1 MG/DL (8.5-10.1) Total Bilirubin 36.9 MG/DL (0.2-1.0) Direct Bilirubin 29.3 MG/DL (0.0-0.3) Aspartate Amino Transf (AST/SGOT) 147 U/L (15-37) Alanine Aminotransferase (ALT/SGPT) 8 U/L (12-78) Alkaline Phosphatase 277 U/L (46-116) Total Protein 4.8 G/DL (6.4-8.2) Albumin 1.6 G/DL (3.4-5.0) Objective: WDWN NAD clear breath sounds bilaterally without rhonchi or wheeze [id number] without MRG NABS nontender no HSM no CC noted edema reduced LOC Reji Huitron MD Jul 16, 2019 08:18
[2019-07-16] MEDS: Cefepime HCl 1 GM in D5W 55 ML IVPB SCH (08:27)
[2019-07-16] MEDS: Pantoprazole Inj IVP SCH ×2 (08:27→20:35)
[2019-07-16] MEDS: Octreotide Acetate 500 MCG in Sodium Chloride 499 ML IV SCH ×3 (08:27→23:00)
[2019-07-16] MEDS: Lactulose 20gm/30ml UDC NG SCH ×4 (08:28→20:35)
[2019-07-16] MEDS: Thiamine 100mg tab ORAL SCH (08:28)
--- NOTE | 2019-07-16 10:16 | Hematology/Onc Progress Note ---
Assessment/Plan Assessment/Plan Assessment and Recs: # Thrombocytopenia - potential causes multifactorial, does have a history of etoh abuse, cirrhosis of the liver, hepatosplenomegaly, portal HTN, coagulopathy noted as well, likely oscillatory pattern can be due to abx as well. Hep panel and HIV ordered (NEG) --> US abd does show, portal htn and cirrhosis ++ --> Peripheral smear ordered to evaluate for blasts /schistocytes reviewed and is negative --> abx and other meds have been reviewed --> ok for ppx if plt >50k w/ either heparin or lovenox --> Transfuse if Plt < 20k and fever, or if Plt < 10k without fever --> plt trend 80-->97-->117-->157k->216k-->107k-->72k-->68k-->109k-->108k-->148k -->176k-->182k->141k-->128k-->148k-->152-->82k --> ffp tx: 07/13 # Anemia of chronic disease due to underlying chronic medical issues, multifactorial (myelosuprresion noted) --> Anemia workup has been reviewed, ferritin 297 --> EPOGEN HAS BEEN ORDERED WITH HD --> Hgb goal >7. Transfuse prn. --> Medications have been reviewed --> low threshold for gi evaluation in case has occult + --> hgb trend: 7.7-->8.2-->9->8.4-->8.3-->8.2-->8-->7.4->7.3-->7.7-->7.8-->7.6-- >8.1->7.5-->7.8-->7.5 --> serum electrophoresis shows no m-spike 06/27 --> cont thiamine --> blood tx: 2 units 07/13 # Coagulopathy due to cirrhosis --> give Vitk as needed # Leukocytosis with sepsis is on abx --> ID following, appreciate recs --> wbc trend: 17k-->13.9-->19.5-->18.7-->27.4-->33.6->32--->33-->30-->34-->44.1 -->44k --> FLAGYL and CTX-> vanc/amish-->cefe # Acute alcoholic intoxication --> etoh abuse history --> thiamine, folic acid, ivf # End-stage liver disease --> Hepatorenal syndrome r/o with renal, albumin prn # Pancreatitis, alcoholic, acute # Tachycardia # ESRD --> on hd as per renal # Dvt ppx with scds given low plts # POOR PROGNOSIS The timing of this note does not necessarily reflect the time of the patient was seen. GREATLY APPRECIATE CONSULTATION. Subjective Allergies: Coded Allergies: No Known Allergies (Unverified , 06/20/19) Subjective 06/21: low k, ferritin 297, h/h stable, afebrile, blood transfused 06/22: in icu, on restraints, labs reviewed, no f/c, imaging reviewed 06/23: pain meds given, remains in icu, again in restraints, bili higher, inr as well, given vitk 06/25: no fevers, no chills, no bleeding, confused in bed in icu 06/26: no events to report, no bleeding, remains in icu, ++ bipap 06/27: icu,s/p paracentesis yesterday, off pressors, h/h stable 06/28: on ctx/flagyl, remains confused, no bleeding, plt is lower 06/29: no f/c, on abx, no acute events, no distress, labs reviewed 06/30: remains in the icu, on abx, no f/c, scds+ 07/02: remains in the icu, no fevers or chills, prbc ordered, as well as epo 07/03: remains in the icu, on restraints, on abx, labs noted, vs stable, no acute events 07/04: dw team and agree patient with very poor prognosis, pending bioethics consult 07/05: remains in icu, very poor prognosis, labs noted wbc 27.4, off bipap receiving repiratory tx 07/06: remains icu, very poor prognosis, wbc 33.6 trending up, no f/c, vs stable , on bipap, paracentesis pending 07/08: remains in the icu, labs look worse, though repsonding better this am, able to raise hands 07/09: no events, hd was done, no events, labs noted, no bleeding 07/10: remains borderline in re to mental status, no f/c, no bleeding in the icu 07/11: no events to report, is on lactulose, xiafan, para ordered 07/12: a+o x 1, no bleeding, chills, night sweats, no major changes 07/13: hgb 6.4, 2 units prbc ordered, on pressors, hd for today, remains ill looking 07/14: no bleeding or chills, no night sweats, wbc is 45k, on abx, on cefepime 07/16: no f/c, wbc is 44k, hgb 7.5, plt 82k, on abx-->cefepime, confused Objective Objective Current Medications Medications (Trade) Dose Ordered Sig/Gabriela Route PRN Reason Start Time Stop Time Status Last Admin Dose Admin Cefepime HCl 1 gm/ Dextrose 55 ml @ 110 mls/hr Q24H IVPB 07/13/19 08:00 07/20/19 07:59 07/16/19 08:27 Chlorhexidine Gluconate (Emilie-Hex 2%) 1 applic DAILY@2000 TOPIC 06/26/19 20:00 07/26/19 19:59 07/15/19 20:45 Dextrose/Sodium Chloride 1,000 ml @ 40 mls/hr Q24H IV 07/13/19 12:45 08/12/19 12:44 07/15/19 01:33 Dopamine HCl/ Dextrose 250 ml @ 0 mls/hr Q24H IV 06/30/19 14:53 07/30/19 14:52 07/13/19 19:25 Epoetin Michael (Epoetin Michael(ESRD on dialysis)) 2,000 unit TUE-TUE-TUE SUBQ 07/02/19 21:00 08/01/19 20:59 07/13/19 21:22 Epoetin Michael (Epoetin Michael(ESRD on dialysis)) 3,000 unit TUE-TUE-TUE SUBQ 07/02/19 21:00 08/01/19 20:59 07/13/19 21:22 Lactulose (Cephulac) 30 gm FOUR TIMES A DAY NG 07/01/19 09:00 07/20/19 12:59 07/16/19 08:28 Multivitamins (Multivitamins) 1 tab DAILY ORAL 07/10/19 09:00 08/09/19 08:59 07/16/19 08:28 Norepinephrine Bitartrate 8 mg/ Dextrose 558 ml @ 0 mls/hr Q24H IV 07/12/19 21:30 08/11/19 21:29 07/16/19 09:57 Octreotide Acetate 500 mcg/ Sodium Chloride 500 ml @ 50 mls/hr Q10H IV 07/13/19 10:30 08/12/19 10:29 07/16/19 08:27 Pantoprazole (Protonix) 40 mg EVERY 12 HOURS IVP 07/13/19 10:00 08/12/19 09:59 07/16/19 08:27 Potassium Chloride 100 ml @ 100 mls/hr Q2H IVPB 07/16/19 09:00 07/16/19 11:59 07/16/19 09:58 Thiamine HCl (Vitamin B1) 100 mg DAILY ORAL 07/10/19 09:00 08/09/19 08:59 07/16/19 08:28 Last 24 Hour Vital Signs Date Time Temp Pulse Resp B/P (MAP) Pulse Ox O2 Delivery O2 Flow Rate FiO2 07/16/19 09:57 83/49 07/16/19 08:30 77 27 83/49 (60) 97 07/16/19 08:00 2.0 07/16/19 08:00 97.7 79 23 93/51 (65) 97 07/16/19 07:30 78 25 101/48 (65) 96 07/16/19 07:00 76 23 95/47 (63) 97 07/16/19 06:51 98 Nasal Cannula 2.0 28 07/16/19 06:00 84 23 97/62 (74) 99 07/16/19 06:00 109/49 07/16/19 05:30 84 23 104/52 (69) 99 07/16/19 05:17 78 31 99 Full Face 30 07/16/19 05:00 100/51 07/16/19 05:00 75 22 103/43 (63) 100 07/16/19 04:30 76 27 99/56 (70) 100 07/16/19 04:00 98.7 77 24 104/54 (71) 100 07/16/19 04:00 73 07/16/19 04:00 103/51 07/16/19 04:00 30 07/16/19 04:00 Bi-pap 07/16/19 03:45 77 25 101/54 (70) 100 07/16/19 03:30 73 25 83/45 (58) 100 07/16/19 03:15 75 24 100/46 (64) 100 07/16/19 03:08 76 29 100 Full Face 30 07/16/19 03:00 83/45 07/16/19 03:00 77 24 98/52 (67) 100 07/16/19 02:32 91/44 07/16/19 02:30 78 23 91/44 (60) 100 07/16/19 02:00 86/49 07/16/19 02:00 77 26 101/54 (70) 100 07/16/19 01:30 75 27 98/68 (78) 07/16/19 01:00 95/58 07/16/19 01:00 76 24 100/47 (64) 07/16/19 00:57 88 34 100 Full Face 30 07/16/19 00:30 82 23 95/58 (70) 07/16/19 00:00 98.6 87 29 103/56 (72) 100 07/16/19 00:00 77 07/16/19 00:00 106/53 07/16/19 00:00 30 07/16/19 00:00 Bi-pap 07/15/19 23:30 78 27 103/54 (70) 100 07/15/19 23:00 78 25 105/49 (67) 100 07/15/19 22:56 79 36 100 Full Face 30 07/15/19 22:30 77 23 97/44 (61) 100 07/15/19 22:00 76 27 92/69 (77) 100 07/15/19 21:30 78 22 102/52 (69) 100 07/15/19 21:15 77 27 110/88 (95) 100 07/15/19 21:12 77 26 100 Full Face 30 07/15/19 21:00 77 28 93/49 (64) 100 07/15/19 20:45 73 22 93/57 (69) 100 07/15/19 20:30 79 27 101/66 (78) 100 07/15/19 20:15 78 26 104/50 (68) 100 07/15/19 20:00 77 07/15/19 20:00 Bi-pap 07/15/19 20:00 98.7 78 24 99/56 (70) 100 07/15/19 20:00 30 07/15/19 19:45 78 30 123/53 (76) 100 07/15/19 19:30 78 29 93/45 (61) 100 07/15/19 19:15 76 27 112/52 (72) 100 07/15/19 19:14 80 39 100 Full Face 30 07/15/19 19:14 100 Bi-Pap 30 07/15/19 19:13 97/53 07/15/19 19:00 76 26 97/53 (68) 100 07/15/19 18:00 79 27 98/55 (69) 100 07/15/19 17:00 77 28 103/49 (67) 100 07/15/19 16:00 Nasal Cannula 2.0 07/15/19 16:00 78 07/15/19 16:00 98.6 76 25 95/57 (70) 100 07/15/19 16:00 30 07/15/19 15:21 81 32 100 Facial 30 07/15/19 15:00 86 24 115/67 (83) 100 07/15/19 14:53 119/55 07/15/19 14:00 78 20 100/61 (74) 100 07/15/19 13:37 79 33 100 Facial 30 07/15/19 13:33 30 07/15/19 13:00 97 21 97/51 (66) 100 07/15/19 12:00 2.0 07/15/19 12:00 Nasal Cannula 2.0 07/15/19 12:00 98.8 79 26 98/48 (65) 99 07/15/19 12:00 81 07/15/19 11:00 80 27 101/44 (63) 99 07/15/19 10:33 101/47 07/15/19 10:00 79 27 112/50 (70) 99 07/15/19 09:00 78 26 96/48 (64) 99 07/15/19 08:00 78 07/15/19 08:00 98.5 77 25 92/51 (65) 99 07/15/19 08:00 2.0 07/15/19 08:00 Nasal Cannula 2.0 07/15/19 07:01 99 Nasal Cannula 2.0 28 07/15/19 07:00 74 22 90/41 (57) 100 07/15/19 06:30 75 25 87/48 (61) 99 07/15/19 06:00 77 23 103/49 (67) 99 07/15/19 05:30 76 24 84/26 (45) 99 07/15/19 05:00 80 24 101/47 (65) 99 07/15/19 04:30 78 20 92/43 (59) 98 07/15/19 04:00 78 07/15/19 04:00 98.8 78 19 103/48 (66) 99 07/15/19 04:00 Nasal Cannula 2.0 07/15/19 04:00 2.0 07/15/19 03:30 77 20 97/45 (62) 99 07/15/19 03:00 77 24 93/47 (62) 100 07/15/19 02:30 79 21 105/51 (69) 100 07/15/19 02:00 76 24 88/40 (56) 100 07/15/19 02:00 2.0 07/15/19 01:30 88 25 103/49 (67) 100 07/15/19 01:05 78 27 100 Facial 30 07/15/19 01:00 79 27 101/43 (62) 100 07/15/19 00:30 82 25 101/51 (68) 100 07/15/19 00:00 30 07/15/19 00:00 99.7 83 24 104/45 (64) 99 07/15/19 00:00 Nasal Cannula 2.0 07/14/19 23:30 83 26 95/54 (68) 99 07/14/19 23:15 99 31 85 Facial 30 07/14/19 23:00 81 27 101/45 (63) 100 07/14/19 22:30 82 28 108/46 (66) 100 07/14/19 22:00 83 31 98/47 (64) 100 07/14/19 21:58 109/51 07/14/19 21:45 82 23 100/47 (64) 99 07/14/19 21:30 83 26 98/45 (62) 100 07/14/19 21:14 100 33 80 Facial 30 07/14/19 21:00 85 22 100/46 (64) 100 07/14/19 20:30 90 22 127/93 (104) 97 07/14/19 20:00 Nasal Cannula 2.0 07/14/19 20:00 30 07/14/19 20:00 89 07/14/19 20:00 98.1 87 22 116/59 (78) 100 07/14/19 19:30 87 22 111/86 (94) 100 07/14/19 19:00 87 29 110/54 (72) 99 07/14/19 18:59 98 31 98 Facial 30 07/14/19 18:58 98 Nasal Cannula 2.0 28 07/14/19 18:30 86 25 102/60 (74) 98 07/14/19 18:00 85 26 109/51 (70) 98 07/14/19 17:30 86 26 115/85 (95) 100 07/14/19 17:00 85 21 97/52 (67) 100 07/14/19 16:00 83 07/14/19 16:00 Nasal Cannula 2.0 07/14/19 16:00 99.5 84 21 99/45 (63) 100 07/14/19 16:00 2.0 07/14/19 15:59 96/46 07/14/19 15:30 89 23 109/55 (73) 96 07/14/19 15:00 88 27 105/54 (71) 100 07/14/19 14:31 83 26 100 Nasal Cannula 2.0 28 86 27 100 07/14/19 14:15 89 23 102/55 (71) 99 07/14/19 14:00 100.0 88 24 99/50 (66) 100 07/14/19 13:00 88 27 106/53 (70) 99 07/14/19 12:30 88 25 100/47 (64) 99 07/14/19 12:00 87 27 92/35 (54) 97 07/14/19 12:00 86 07/14/19 12:00 Nasal Cannula 2.0 07/14/19 12:00 2.0 07/14/19 11:30 87 26 104/47 (66) 98 07/14/19 11:05 85/39 07/14/19 11:00 87 29 81/63 (69) 98 07/14/19 10:31 72 22 99 Nasal Cannula 2.0 28 84 26 98 07/14/19 10:30 84 24 97/49 (65) 100 Intake and Output 07/15/19 07/16/19 19:00 07:00 Intake Total 2032.97 ml 1500.79 ml Output Total 950 ml 800 ml Balance 1082.97 ml 700.79 ml IV Total 1972.97 ml 1500.79 ml Other 60 ml Output Urine Total 0 ml 0 ml Stool Total 900 ml 800 ml Gastric Drainage Total 50 ml Labs Test 07/13/19 11:20 07/13/19 21:30 07/14/19 04:50 07/15/19 04:00 Prothrombin Time 24.0 SEC (9.30-11.50) 20.1 SEC (9.30-11.50) Prothromb Time International Ratio 2.4 (0.9-1.1) 2.0 (0.9-1.1) Activated Partial Thromboplast Time 65 SEC (23-33) Fibrinogen 230 mg/dL (200-400) White Blood Count 40.8 K/UL (4.8-10.8) 44.7 K/UL (4.8-10.8) 41.2 K/UL (4.8-10.8) Red Blood Count 2.19 M/UL (4.70-6.10) 2.67 M/UL (4.70-6.10) 2.39 M/UL (4.70-6.10) Hemoglobin 6.8 G/DL (14.2-18.0) 8.0 G/DL (14.2-18.0) 7.2 G/DL (14.2-18.0) Hematocrit 20.7 % (42.0-52.0) 25.2 % (42.0-52.0) 22.3 % (42.0-52.0) Mean Corpuscular Volume 95 FL (80-99) 95 FL (80-99) 93 FL (80-99) Mean Corpuscular Hemoglobin 31.1 PG (27.0-31.0) 30.0 PG (27.0-31.0) 30.3 PG (27.0-31.0) Mean Corpuscular Hemoglobin Concent 32.8 G/DL (32.0-36.0) 31.7 G/DL (32.0-36.0) 32.6 G/DL (32.0-36.0) Red Cell Distribution Width 21.8 % (11.6-14.8) 21.4 % (11.6-14.8) 22.5 % (11.6-14.8) Platelet Count 104 K/UL (150-450) 127 K/UL (150-450) 102 K/UL (150-450) Mean Platelet Volume 10.8 FL (6.5-10.1) 12.0 FL (6.5-10.1) 10.7 FL (6.5-10.1) Neutrophils (%) (Auto) % (45.0-75.0) % (45.0-75.0) % (45.0-75.0) Lymphocytes (%) (Auto) % (20.0-45.0) % (20.0-45.0) % (20.0-45.0) Monocytes (%) (Auto) % (1.0-10.0) % (1.0-10.0) % (1.0-10.0) Eosinophils (%) (Auto) % (0.0-3.0) % (0.0-3.0) % (0.0-3.0) Basophils (%) (Auto) % (0.0-2.0) % (0.0-2.0) % (0.0-2.0) Differential Total Cells Counted 100 100 100 Neutrophils % (Manual) 80 % (45-75) 79 % (45-75) 91 % (45-75) Lymphocytes % (Manual) 12 % (20-45) 5 % (20-45) 3 % (20-45) Monocytes % (Manual) 2 % (1-10) 7 % (1-10) 3 % (1-10) Eosinophils % (Manual) 2 % (0-3) 2 % (0-3) 1 % (0-3) Basophils % (Manual) 0 % (0-2) 0 % (0-2) 0 % (0-2) Band Neutrophils 4 % (0-8) 7 % (0-8) 2 % (0-8) Platelet Estimate Decreased Decreased Decreased Platelet Morphology Normal Normal Normal Polychromasia 1+ Anisocytosis 2+ 2+ 2+ Hypochromasia 1+ Sodium Level 146 MMOL/L (136-145) 146 MMOL/L (136-145) Potassium Level 3.3 MMOL/L (3.5-5.1) 2.8 MMOL/L (3.5-5.1) Chloride Level 108 MMOL/L (98-107) 110 MMOL/L (98-107) Carbon Dioxide Level 18 MMOL/L (21-32) 14 MMOL/L (21-32) Anion Gap 20 mmol/L (5-15) 23 mmol/L (5-15) Blood Urea Nitrogen 75 mg/dL (7-18) 87 mg/dL (7-18) Creatinine 9.1 MG/DL (0.55-1.30) 10.1 MG/DL (0.55-1.30) Estimat Glomerular Filtration Rate 6.5 mL/min (>60) 5.8 mL/min (>60) Glucose Level 173 MG/DL (74-106) 132 MG/DL (74-106) Calcium Level 6.8 MG/DL (8.5-10.1) 6.9 MG/DL (8.5-10.1) Total Bilirubin 38.8 MG/DL (0.2-1.0) 35.5 MG/DL (0.2-1.0) Direct Bilirubin 30.6 MG/DL (0.0-0.3) 28.2 MG/DL (0.0-0.3) Aspartate Amino Transf (AST/SGOT) 189 U/L (15-37) 171 U/L (15-37) Alanine Aminotransferase (ALT/SGPT) 15 U/L (12-78) 14 U/L (12-78) Alkaline Phosphatase 244 U/L (46-116) 240 U/L (46-116) Ammonia 100 umol/L (11-32) Total Protein 5.0 G/DL (6.4-8.2) 4.6 G/DL (6.4-8.2) Albumin 1.8 G/DL (3.4-5.0) 1.5 G/DL (3.4-5.0) Globulin 3.2 g/dL Albumin/Globulin Ratio 0.6 (1.0-2.7) Test 07/16/19 04:30 White Blood Count 44.0 K/UL (4.8-10.8) Red Blood Count 2.52 M/UL (4.70-6.10) Hemoglobin 7.5 G/DL (14.2-18.0) Hematocrit 23.3 % (42.0-52.0) Mean Corpuscular Volume 92 FL (80-99) Mean Corpuscular Hemoglobin 29.8 PG (27.0-31.0) Mean Corpuscular Hemoglobin Concent 32.3 G/DL (32.0-36.0) Red Cell Distribution Width 22.9 % (11.6-14.8) Platelet Count 82 K/UL (150-450) Mean Platelet Volume 6.8 FL (6.5-10.1) Neutrophils (%) (Auto) % (45.0-75.0) Lymphocytes (%) (Auto) % (20.0-45.0) Monocytes (%) (Auto) % (1.0-10.0) Eosinophils (%) (Auto) % (0.0-3.0) Basophils (%) (Auto) % (0.0-2.0) Differential Total Cells Counted 100 Neutrophils % (Manual) 81 % (45-75) Lymphocytes % (Manual) 6 % (20-45) Monocytes % (Manual) 5 % (1-10) Eosinophils % (Manual) 0 % (0-3) Basophils % (Manual) 0 % (0-2) Myelocytes % 2 % (0-0) Band Neutrophils 6 % (0-8) Platelet Estimate Decreased Platelet Morphology Normal Polychromasia 1+ Hypochromasia 1+ Anisocytosis 3+ Schistocytes Occasional Sodium Level 144 MMOL/L (136-145) Potassium Level 3.0 MMOL/L (3.5-5.1) Chloride Level 109 MMOL/L (98-107) Carbon Dioxide Level 11 MMOL/L (21-32) Anion Gap 24 mmol/L (5-15) Blood Urea Nitrogen 96 mg/dL (7-18) Creatinine 10.8 MG/DL (0.55-1.30) Estimat Glomerular Filtration Rate 5.3 mL/min (>60) Glucose Level 162 MG/DL (74-106) Calcium Level 7.1 MG/DL (8.5-10.1) Total Bilirubin 36.9 MG/DL (0.2-1.0) Direct Bilirubin 29.3 MG/DL (0.0-0.3) Aspartate Amino Transf (AST/SGOT) 147 U/L (15-37) Alanine Aminotransferase (ALT/SGPT) 8 U/L (12-78) Alkaline Phosphatase 277 U/L (46-116) Total Protein 4.8 G/DL (6.4-8.2) Albumin 1.6 G/DL (3.4-5.0) Height (Feet): 5 Height (Inches): 9.00 Weight (Pounds): 232 Objective Physical Exam: Vitals: reviewed General Appearance: NAD HEENT: normocephalic, atraumatic ++ icterus jaundice, ng+ Neck: non-tender, normal alignment Respiratory/Chest: normal breath sounds bilaterally++ nc, BIPAP+ Cardiovascular/Chest: normal peripheral pulses, normal rate Abdomen: normal bowel sounds, soft,+ peg ++ ascites Extremities: normal range of motion Marty Kebede MD Jul 16, 2019 10:15
--- NOTE | 2019-07-16 10:25 | Infectious Diseases Prog Note ---
Assessment/Plan Assessment/Plan IMPRESSION: 1. Sepsis. 2. leukocytosis 3. Tachycardia. 4. Leukocytosis. 5. colitis, 6.Alcoholic pancreatitis, 7.Cirrhosis of liver, 8. Acute renal failure likely hepatorenal syndrome, - ESRD 9.Anemia, 10. thrombocytopenia, 11.hypocalcemia, 12.hypomagnesemia, corrected 13 hypokalemia, 14, Alcohol withdrawal. 15.Metabolic encephalopathy 16. Hypophosphatemia 17. Hypernatremia 18. Hypoxic respiratory failure 19 GI bleeding RECOMMENDATION: Continue Cefepime Stool for C.difficile: negative Poor prognosis Subjective ROS Limited/Unobtainable: Yes Constitutional: Denies: fever Neurologic: Reports: confusion, other - on restraint Allergies: Coded Allergies: No Known Allergies (Unverified , 06/20/19) Objective Vital Signs Last 24 Hour Vital Signs Date Time Temp Pulse Resp B/P (MAP) Pulse Ox O2 Delivery O2 Flow Rate FiO2 07/16/19 09:57 83/49 07/16/19 08:30 77 27 83/49 (60) 97 07/16/19 08:00 2.0 07/16/19 08:00 97.7 79 23 93/51 (65) 97 07/16/19 07:30 78 25 101/48 (65) 96 07/16/19 07:00 76 23 95/47 (63) 97 07/16/19 06:51 98 Nasal Cannula 2.0 28 07/16/19 06:00 84 23 97/62 (74) 99 07/16/19 06:00 109/49 07/16/19 05:30 84 23 104/52 (69) 99 07/16/19 05:17 78 31 99 Full Face 30 07/16/19 05:00 100/51 07/16/19 05:00 75 22 103/43 (63) 100 07/16/19 04:30 76 27 99/56 (70) 100 07/16/19 04:00 98.7 77 24 104/54 (71) 100 07/16/19 04:00 73 07/16/19 04:00 103/51 07/16/19 04:00 30 07/16/19 04:00 Bi-pap 07/16/19 03:45 77 25 101/54 (70) 100 07/16/19 03:30 73 25 83/45 (58) 100 07/16/19 03:15 75 24 100/46 (64) 100 07/16/19 03:08 76 29 100 Full Face 30 07/16/19 03:00 83/45 07/16/19 03:00 77 24 98/52 (67) 100 07/16/19 02:32 91/44 07/16/19 02:30 78 23 91/44 (60) 100 07/16/19 02:00 86/49 07/16/19 02:00 77 26 101/54 (70) 100 07/16/19 01:30 75 27 98/68 (78) 07/16/19 01:00 95/58 07/16/19 01:00 76 24 100/47 (64) 07/16/19 00:57 88 34 100 Full Face 30 07/16/19 00:30 82 23 95/58 (70) 07/16/19 00:00 98.6 87 29 103/56 (72) 100 07/16/19 00:00 77 07/16/19 00:00 106/53 07/16/19 00:00 30 07/16/19 00:00 Bi-pap 07/15/19 23:30 78 27 103/54 (70) 100 07/15/19 23:00 78 25 105/49 (67) 100 07/15/19 22:56 79 36 100 Full Face 30 07/15/19 22:30 77 23 97/44 (61) 100 07/15/19 22:00 76 27 92/69 (77) 100 07/15/19 21:30 78 22 102/52 (69) 100 07/15/19 21:15 77 27 110/88 (95) 100 07/15/19 21:12 77 26 100 Full Face 30 07/15/19 21:00 77 28 93/49 (64) 100 07/15/19 20:45 73 22 93/57 (69) 100 07/15/19 20:30 79 27 101/66 (78) 100 07/15/19 20:15 78 26 104/50 (68) 100 07/15/19 20:00 77 07/15/19 20:00 Bi-pap 07/15/19 20:00 98.7 78 24 99/56 (70) 100 07/15/19 20:00 30 07/15/19 19:45 78 30 123/53 (76) 100 07/15/19 19:30 78 29 93/45 (61) 100 07/15/19 19:15 76 27 112/52 (72) 100 07/15/19 19:14 80 39 100 Full Face 30 07/15/19 19:14 100 Bi-Pap 30 07/15/19 19:13 97/53 07/15/19 19:00 76 26 97/53 (68) 100 07/15/19 18:00 79 27 98/55 (69) 100 07/15/19 17:00 77 28 103/49 (67) 100 07/15/19 16:00 Nasal Cannula 2.0 07/15/19 16:00 78 07/15/19 16:00 98.6 76 25 95/57 (70) 100 07/15/19 16:00 30 07/15/19 15:21 81 32 100 Facial 30 07/15/19 15:00 86 24 115/67 (83) 100 07/15/19 14:53 119/55 07/15/19 14:00 78 20 100/61 (74) 100 07/15/19 13:37 79 33 100 Facial 30 07/15/19 13:33 30 07/15/19 13:00 97 21 97/51 (66) 100 07/15/19 12:00 2.0 07/15/19 12:00 Nasal Cannula 2.0 07/15/19 12:00 98.8 79 26 98/48 (65) 99 07/15/19 12:00 81 07/15/19 11:00 80 27 101/44 (63) 99 07/15/19 10:33 101/47 Height (Feet): 5 Height (Inches): 9.00 Weight (Pounds): 232 HEENT: mucous membranes moist, other - icterus Respiratory/Chest: lungs clear Cardiovascular: normal rate, other - HD & PICC lines Abdomen: distended, other - NG & rectal tubes Extremities: other - edema Neurologic/Psychiatric: disoriented, other - awake Laboratory Tests Test 07/16/19 04:30 White Blood Count 44.0 K/UL (4.8-10.8) *H Red Blood Count 2.52 M/UL (4.70-6.10) L Hemoglobin 7.5 G/DL (14.2-18.0) L Hematocrit 23.3 % (42.0-52.0) L Mean Corpuscular Volume 92 FL (80-99) Mean Corpuscular Hemoglobin 29.8 PG (27.0-31.0) Mean Corpuscular Hemoglobin Concent 32.3 G/DL (32.0-36.0) Red Cell Distribution Width 22.9 % (11.6-14.8) H Platelet Count 82 K/UL (150-450) L Mean Platelet Volume 6.8 FL (6.5-10.1) Neutrophils (%) (Auto) % (45.0-75.0) Lymphocytes (%) (Auto) % (20.0-45.0) Monocytes (%) (Auto) % (1.0-10.0) Eosinophils (%) (Auto) % (0.0-3.0) Basophils (%) (Auto) % (0.0-2.0) Differential Total Cells Counted 100 Neutrophils % (Manual) 81 % (45-75) H Lymphocytes % (Manual) 6 % (20-45) L Monocytes % (Manual) 5 % (1-10) Eosinophils % (Manual) 0 % (0-3) Basophils % (Manual) 0 % (0-2) Myelocytes % 2 % (0-0) H Band Neutrophils 6 % (0-8) Platelet Estimate Decreased L Platelet Morphology Normal Polychromasia 1+ Hypochromasia 1+ Anisocytosis 3+ Schistocytes Occasional Sodium Level 144 MMOL/L (136-145) Potassium Level 3.0 MMOL/L (3.5-5.1) L Chloride Level 109 MMOL/L (98-107) H Carbon Dioxide Level 11 MMOL/L (21-32) L Anion Gap 24 mmol/L (5-15) H Blood Urea Nitrogen 96 mg/dL (7-18) H Creatinine 10.8 MG/DL (0.55-1.30) H Estimat Glomerular Filtration Rate 5.3 mL/min (>60) Glucose Level 162 MG/DL (74-106) H Calcium Level 7.1 MG/DL (8.5-10.1) L Total Bilirubin 36.9 MG/DL (0.2-1.0) H Direct Bilirubin 29.3 MG/DL (0.0-0.3) H Aspartate Amino Transf (AST/SGOT) 147 U/L (15-37) H Alanine Aminotransferase (ALT/SGPT) 8 U/L (12-78) L Alkaline Phosphatase 277 U/L (46-116) H Total Protein 4.8 G/DL (6.4-8.2) L Albumin 1.6 G/DL (3.4-5.0) L Current Medications Medications (Trade) Dose Ordered Sig/Gabriela Route PRN Reason Start Time Stop Time Status Last Admin Dose Admin Cefepime HCl 1 gm/ Dextrose 55 ml @ 110 mls/hr Q24H IVPB 07/13/19 08:00 07/20/19 07:59 07/16/19 08:27 Chlorhexidine Gluconate (Emilie-Hex 2%) 1 applic DAILY@2000 TOPIC 06/26/19 20:00 07/26/19 19:59 07/15/19 20:45 Dextrose/Sodium Chloride 1,000 ml @ 40 mls/hr Q24H IV 07/13/19 12:45 08/12/19 12:44 07/15/19 01:33 Dopamine HCl/ Dextrose 250 ml @ 0 mls/hr Q24H IV 06/30/19 14:53 07/30/19 14:52 07/13/19 19:25 Epoetin Michael (Epoetin Michael(ESRD on dialysis)) 2,000 unit SUBQ 07/02/19 21:00 08/01/19 20:59 07/13/19 21:22 Epoetin Michael (Epoetin Michael(ESRD on dialysis)) 3,000 unit SUBQ 07/02/19 21:00 08/01/19 20:59 07/13/19 21:22 Lactulose (Cephulac) 30 gm FOUR TIMES A DAY NG 07/01/19 09:00 07/20/19 12:59 07/16/19 08:28 Multivitamins (Multivitamins) 1 tab DAILY ORAL 07/10/19 09:00 08/09/19 08:59 07/16/19 08:28 Norepinephrine Bitartrate 8 mg/ Dextrose 558 ml @ 0 mls/hr Q24H IV 07/12/19 21:30 08/11/19 21:29 07/16/19 09:57 Octreotide Acetate 500 mcg/ Sodium Chloride 500 ml @ 50 mls/hr Q10H IV 07/13/19 10:30 08/12/19 10:29 07/16/19 08:27 Pantoprazole (Protonix) 40 mg EVERY 12 HOURS IVP 07/13/19 10:00 08/12/19 09:59 07/16/19 08:27 Potassium Chloride 100 ml @ 100 mls/hr Q2H IVPB 07/16/19 09:00 07/16/19 11:59 07/16/19 09:58 Thiamine HCl (Vitamin B1) 100 mg DAILY ORAL 07/10/19 09:00 08/09/19 08:59 07/16/19 08:28 Ilia Chakraborty MD Jul 16, 2019 10:25
[2019-07-16] MEDS: D5 1/2NS 1,000 ML IV SCH (11:36)
--- NOTE | 2019-07-16 11:54 | General Progress Note ---
Assessment/Plan Problem List: (1) Pancreatitis, alcoholic, acute ICD Codes: K85.20 - Alcohol induced acute pancreatitis without necrosis or infection SNOMED: 195807739, [id number] Qualifiers: Qualified Codes: K85.20 - Alcohol induced acute pancreatitis without necrosis or infection (2) Acute alcoholic intoxication ICD Codes: F10.929 - Alcohol use, unspecified with intoxication, unspecified SNOMED: 32523926, [id number] Qualifiers: Qualified Codes: F10.920 - Alcohol use, unspecified with intoxication, uncomplicated (3) Anemia ICD Codes: D64.9 - Anemia, unspecified SNOMED: 390448171 Qualifiers: Qualified Codes: D64.9 - Anemia, unspecified Status: stable, progressing, deteriorating Assessment/Plan: NGTF>>on hold due to GIB start octreotide protonix transfuse 2 units PRBC transfuse one unit FFP EGD on hold patient not stable repeat labs fu nephrology cont lactulose xifaxan prn paracentesis>> repeated 800 cc last one poor prognosis Subjective ROS Limited/Unobtainable: No Allergies: Coded Allergies: No Known Allergies (Unverified , 06/20/19) Objective Last 24 Hour Vital Signs Date Time Temp Pulse Resp B/P (MAP) Pulse Ox O2 Delivery O2 Flow Rate FiO2 07/16/19 11:00 79 30 95/51 (66) 96 07/16/19 10:30 80 26 104/57 (73) 96 07/16/19 10:00 80 33 98/48 (65) 97 07/16/19 09:57 83/49 07/16/19 09:30 84 31 82/36 (51) 95 07/16/19 09:00 81 30 96/70 (79) 96 07/16/19 08:30 77 27 83/49 (60) 97 07/16/19 08:00 Nasal Cannula 2.0 07/16/19 08:00 2.0 07/16/19 08:00 97.7 79 23 93/51 (65) 97 07/16/19 07:32 76 07/16/19 07:30 78 25 101/48 (65) 96 07/16/19 07:00 76 23 95/47 (63) 97 07/16/19 06:51 98 Nasal Cannula 2.0 28 07/16/19 06:00 84 23 97/62 (74) 99 07/16/19 06:00 109/49 07/16/19 05:30 84 23 104/52 (69) 99 07/16/19 05:17 78 31 99 Full Face 30 07/16/19 05:00 100/51 07/16/19 05:00 75 22 103/43 (63) 100 07/16/19 04:30 76 27 99/56 (70) 100 07/16/19 04:00 98.7 77 24 104/54 (71) 100 07/16/19 04:00 73 07/16/19 04:00 103/51 07/16/19 04:00 30 07/16/19 04:00 Bi-pap 07/16/19 03:45 77 25 101/54 (70) 100 07/16/19 03:30 73 25 83/45 (58) 100 07/16/19 03:15 75 24 100/46 (64) 100 07/16/19 03:08 76 29 100 Full Face 30 07/16/19 03:00 83/45 07/16/19 03:00 77 24 98/52 (67) 100 07/16/19 02:32 91/44 07/16/19 02:30 78 23 91/44 (60) 100 07/16/19 02:00 86/49 07/16/19 02:00 77 26 101/54 (70) 100 07/16/19 01:30 75 27 98/68 (78) 07/16/19 01:00 95/58 07/16/19 01:00 76 24 100/47 (64) 07/16/19 00:57 88 34 100 Full Face 30 07/16/19 00:30 82 23 95/58 (70) 07/16/19 00:00 98.6 87 29 103/56 (72) 100 07/16/19 00:00 77 07/16/19 00:00 106/53 07/16/19 00:00 30 07/16/19 00:00 Bi-pap 07/15/19 23:30 78 27 103/54 (70) 100 07/15/19 23:00 78 25 105/49 (67) 100 07/15/19 22:56 79 36 100 Full Face 30 07/15/19 22:30 77 23 97/44 (61) 100 07/15/19 22:00 76 27 92/69 (77) 100 07/15/19 21:30 78 22 102/52 (69) 100 07/15/19 21:15 77 27 110/88 (95) 100 07/15/19 21:12 77 26 100 Full Face 30 07/15/19 21:00 77 28 93/49 (64) 100 07/15/19 20:45 73 22 93/57 (69) 100 07/15/19 20:30 79 27 101/66 (78) 100 07/15/19 20:15 78 26 104/50 (68) 100 07/15/19 20:00 77 07/15/19 20:00 Bi-pap 07/15/19 20:00 98.7 78 24 99/56 (70) 100 07/15/19 20:00 30 07/15/19 19:45 78 30 123/53 (76) 100 07/15/19 19:30 78 29 93/45 (61) 100 07/15/19 19:15 76 27 112/52 (72) 100 07/15/19 19:14 80 39 100 Full Face 30 07/15/19 19:14 100 Bi-Pap 30 07/15/19 19:13 97/53 07/15/19 19:00 76 26 97/53 (68) 100 07/15/19 18:00 79 27 98/55 (69) 100 07/15/19 17:00 77 28 103/49 (67) 100 07/15/19 16:00 Nasal Cannula 2.0 07/15/19 16:00 78 07/15/19 16:00 98.6 76 25 95/57 (70) 100 07/15/19 16:00 30 07/15/19 15:21 81 32 100 Facial 30 07/15/19 15:00 86 24 115/67 (83) 100 07/15/19 14:53 119/55 07/15/19 14:00 78 20 100/61 (74) 100 07/15/19 13:37 79 33 100 Facial 30 07/15/19 13:33 30 07/15/19 13:00 97 21 97/51 (66) 100 07/15/19 12:00 2.0 07/15/19 12:00 Nasal Cannula 2.0 07/15/19 12:00 98.8 79 26 98/48 (65) 99 07/15/19 12:00 81 Intake and Output 07/15/19 07/16/19 19:00 07:00 Intake Total 2032.97 ml 1590.79 ml Output Total 950 ml 800 ml Balance 1082.97 ml 790.79 ml IV Total 1972.97 ml 1590.79 ml Other 60 ml Output Urine Total 0 ml 0 ml Stool Total 900 ml 800 ml Gastric Drainage Total 50 ml Laboratory Tests 07/16/19 04:30: White Blood Count 44.0*H, Red Blood Count 2.52L, Hemoglobin 7.5L, Hematocrit 23.3L, Mean Corpuscular Volume 92, Mean Corpuscular Hemoglobin 29.8, Mean Corpuscular Hemoglobin Concent 32.3, Red Cell Distribution Width 22.9H, Platelet Count 82L, Mean Platelet Volume 6.8, Neutrophils (%) (Auto) , Lymphocytes (%) (Auto) , Monocytes (%) (Auto) , Eosinophils (%) (Auto) , Basophils (%) (Auto) , Differential Total Cells Counted 100, Neutrophils % ( Manual) 81H, Lymphocytes % (Manual) 6L, Monocytes % (Manual) 5, Eosinophils % ( Manual) 0, Basophils % (Manual) 0, Myelocytes % 2H, Band Neutrophils 6, Platelet Estimate DecreasedL, Platelet Morphology Normal, Polychromasia 1+, Hypochromasia 1+, Anisocytosis 3+, Schistocytes Occasional, Sodium Level 144, Potassium Level 3.0L, Chloride Level 109H, Carbon Dioxide Level 11L, Anion Gap 24H, Blood Urea Nitrogen 96H, Creatinine 10.8H, Estimat Glomerular Filtration Rate 5.3, Glucose Level 162H, Calcium Level 7.1L, Total Bilirubin 36.9H, Direct Bilirubin 29.3H, Aspartate Amino Transf (AST/SGOT) 147H, Alanine Aminotransferase (ALT/SGPT) 8L, Alkaline Phosphatase 277H, Total Protein 4.8L, Albumin 1.6L Height (Feet): 5 Height (Inches): 9.00 Weight (Pounds): 232 General Appearance: lethargic EENT: scleral icterus Neck: non-tender, normal alignment, supple Abdomen: normal bowel sounds, non tender, soft Extremities: non-tender Merlin Esposito MD Jul 16, 2019 11:54
--- NOTE | 2019-07-16 12:16 | Nephrology Progress Note ---
Assessment/Plan Problem List: (1) End-stage liver disease (2) Hepatorenal syndrome (3) Pancreatitis, alcoholic, acute (4) Acute alcoholic intoxication (5) Anemia (6) Respiratory failure (7) Hypernatremia Assessment Acute alcoholic intoxication End-stage liver disease Hepatorenal syndrome Pancreatitis, alcoholic, acute Anemia Plan Hypotensive- on pressors not tolerated dialysis last time due to low BP 07/13 K supplement trial paracenthesis done I CONSIDER TREATMENT OF THIS PATIENT TO BE FUTILE correct low K per orders on 06/28/19 met with Brother- Lilianara zonia Reyes [employer] Brother will discuss with family regarding DNR and comfort care Subjective ROS Limited/Unobtainable: Yes Constitutional: Reports: malaise Objective Objective Last 24 Hour Vital Signs Date Time Temp Pulse Resp B/P (MAP) Pulse Ox O2 Delivery O2 Flow Rate FiO2 07/16/19 12:00 103/49 07/16/19 11:00 94/49 07/16/19 11:00 79 30 95/51 (66) 96 07/16/19 10:30 80 26 104/57 (73) 96 07/16/19 10:00 80 33 98/48 (65) 97 07/16/19 10:00 93/53 07/16/19 09:57 83/49 07/16/19 09:30 84 31 82/36 (51) 95 07/16/19 09:00 96/70 07/16/19 09:00 81 30 96/70 (79) 96 07/16/19 08:30 77 27 83/49 (60) 97 07/16/19 08:00 Nasal Cannula 2.0 07/16/19 08:00 2.0 07/16/19 08:00 97.7 79 23 93/51 (65) 97 07/16/19 07:32 76 07/16/19 07:30 78 25 101/48 (65) 96 07/16/19 07:00 76 23 95/47 (63) 97 07/16/19 06:51 98 Nasal Cannula 2.0 28 07/16/19 06:00 84 23 97/62 (74) 99 07/16/19 06:00 109/49 07/16/19 05:30 84 23 104/52 (69) 99 07/16/19 05:17 78 31 99 Full Face 30 07/16/19 05:00 100/51 07/16/19 05:00 75 22 103/43 (63) 100 07/16/19 04:30 76 27 99/56 (70) 100 07/16/19 04:00 98.7 77 24 104/54 (71) 100 07/16/19 04:00 73 07/16/19 04:00 103/51 07/16/19 04:00 30 07/16/19 04:00 Bi-pap 07/16/19 03:45 77 25 101/54 (70) 100 07/16/19 03:30 73 25 83/45 (58) 100 07/16/19 03:15 75 24 100/46 (64) 100 07/16/19 03:08 76 29 100 Full Face 30 07/16/19 03:00 83/45 07/16/19 03:00 77 24 98/52 (67) 100 07/16/19 02:32 91/44 07/16/19 02:30 78 23 91/44 (60) 100 07/16/19 02:00 86/49 07/16/19 02:00 77 26 101/54 (70) 100 07/16/19 01:30 75 27 98/68 (78) 07/16/19 01:00 95/58 07/16/19 01:00 76 24 100/47 (64) 07/16/19 00:57 88 34 100 Full Face 30 07/16/19 00:30 82 23 95/58 (70) 07/16/19 00:00 98.6 87 29 103/56 (72) 100 07/16/19 00:00 77 07/16/19 00:00 106/53 07/16/19 00:00 30 07/16/19 00:00 Bi-pap 07/15/19 23:30 78 27 103/54 (70) 100 07/15/19 23:00 78 25 105/49 (67) 100 07/15/19 22:56 79 36 100 Full Face 30 07/15/19 22:30 77 23 97/44 (61) 100 07/15/19 22:00 76 27 92/69 (77) 100 07/15/19 21:30 78 22 102/52 (69) 100 07/15/19 21:15 77 27 110/88 (95) 100 07/15/19 21:12 77 26 100 Full Face 30 07/15/19 21:00 77 28 93/49 (64) 100 07/15/19 20:45 73 22 93/57 (69) 100 07/15/19 20:30 79 27 101/66 (78) 100 07/15/19 20:15 78 26 104/50 (68) 100 07/15/19 20:00 77 07/15/19 20:00 Bi-pap 07/15/19 20:00 98.7 78 24 99/56 (70) 100 07/15/19 20:00 30 07/15/19 19:45 78 30 123/53 (76) 100 07/15/19 19:30 78 29 93/45 (61) 100 07/15/19 19:15 76 27 112/52 (72) 100 07/15/19 19:14 80 39 100 Full Face 30 07/15/19 19:14 100 Bi-Pap 30 07/15/19 19:13 97/53 07/15/19 19:00 76 26 97/53 (68) 100 07/15/19 18:00 79 27 98/55 (69) 100 07/15/19 17:00 77 28 103/49 (67) 100 07/15/19 16:00 Nasal Cannula 2.0 07/15/19 16:00 78 07/15/19 16:00 98.6 76 25 95/57 (70) 100 07/15/19 16:00 30 07/15/19 15:21 81 32 100 Facial 30 07/15/19 15:00 86 24 115/67 (83) 100 07/15/19 14:53 119/55 07/15/19 14:00 78 20 100/61 (74) 100 07/15/19 13:37 79 33 100 Facial 30 07/15/19 13:33 30 07/15/19 13:00 97 21 97/51 (66) 100 Intake and Output 07/15/19 07/16/19 18:59 06:59 Intake Total 2139.344 ml 1500.79 ml Output Total 900 ml 850 ml Balance 1239.344 ml 650.79 ml IV Total 2079.344 ml 1500.79 ml Other 60 ml Output Urine Total 0 ml 0 ml Stool Total 900 ml 800 ml Gastric Drainage Total 50 ml Laboratory Tests 9/23/19 04:30: White Blood Count 44.0*H, Red Blood Count 2.52L, Hemoglobin 7.5L, Hematocrit 23.3L, Mean Corpuscular Volume 92, Mean Corpuscular Hemoglobin 29.8, Mean Corpuscular Hemoglobin Concent 32.3, Red Cell Distribution Width 22.9H, Platelet Count 82L, Mean Platelet Volume 6.8, Neutrophils (%) (Auto) , Lymphocytes (%) (Auto) , Monocytes (%) (Auto) , Eosinophils (%) (Auto) , Basophils (%) (Auto) , Differential Total Cells Counted 100, Neutrophils % ( Manual) 81H, Lymphocytes % (Manual) 6L, Monocytes % (Manual) 5, Eosinophils % ( Manual) 0, Basophils % (Manual) 0, Myelocytes % 2H, Band Neutrophils 6, Platelet Estimate DecreasedL, Platelet Morphology Normal, Polychromasia 1+, Hypochromasia 1+, Anisocytosis 3+, Schistocytes Occasional, Sodium Level 144, Potassium Level 3.0L, Chloride Level 109H, Carbon Dioxide Level 11L, Anion Gap 24H, Blood Urea Nitrogen 96H, Creatinine 10.8H, Estimat Glomerular Filtration Rate 5.3, Glucose Level 162H, Calcium Level 7.1L, Total Bilirubin 36.9H, Direct Bilirubin 29.3H, Aspartate Amino Transf (AST/SGOT) 147H, Alanine Aminotransferase (ALT/SGPT) 8L, Alkaline Phosphatase 277H, Total Protein 4.8L, Albumin 1.6L Height (Feet): 5 Height (Inches): 9.00 Weight (Pounds): 232 General Appearance: confused, mild distress Cardiovascular: tachycardia Respiratory/Chest: decreased breath sounds Abdomen: distended Arthur Lay MD Jul 16, 2019 12:16
--- NOTE | 2019-07-16 13:25 | Surgery Progress Note ---
Surgery Progress Note Subjective Additional Comments Ill-appearing in ICU. No acute events. Labs noted. Poor prognosis. Objective Last 24 Hour Vital Signs Date Time Temp Pulse Resp B/P (MAP) Pulse Ox O2 Delivery O2 Flow Rate FiO2 07/16/19 12:00 2.0 07/16/19 12:00 98.3 84 26 103/49 (67) 95 07/16/19 12:00 Nasal Cannula 2.0 07/16/19 12:00 103/49 07/16/19 11:00 94/49 07/16/19 11:00 79 30 95/51 (66) 96 07/16/19 10:30 80 26 104/57 (73) 96 07/16/19 10:00 80 33 98/48 (65) 97 07/16/19 10:00 93/53 07/16/19 09:57 83/49 07/16/19 09:30 84 31 82/36 (51) 95 07/16/19 09:00 96/70 07/16/19 09:00 81 30 96/70 (79) 96 07/16/19 08:30 77 27 83/49 (60) 97 07/16/19 08:00 Nasal Cannula 2.0 07/16/19 08:00 2.0 07/16/19 08:00 97.7 79 23 93/51 (65) 97 07/16/19 07:32 76 07/16/19 07:30 78 25 101/48 (65) 96 07/16/19 07:00 76 23 95/47 (63) 97 07/16/19 06:51 98 Nasal Cannula 2.0 28 07/16/19 06:00 84 23 97/62 (74) 99 07/16/19 06:00 109/49 07/16/19 05:30 84 23 104/52 (69) 99 07/16/19 05:17 78 31 99 Full Face 30 07/16/19 05:00 100/51 07/16/19 05:00 75 22 103/43 (63) 100 07/16/19 04:30 76 27 99/56 (70) 100 07/16/19 04:00 98.7 77 24 104/54 (71) 100 07/16/19 04:00 73 07/16/19 04:00 103/51 07/16/19 04:00 30 07/16/19 04:00 Bi-pap 07/16/19 03:45 77 25 101/54 (70) 100 07/16/19 03:30 73 25 83/45 (58) 100 07/16/19 03:15 75 24 100/46 (64) 100 07/16/19 03:08 76 29 100 Full Face 30 07/16/19 03:00 83/45 07/16/19 03:00 77 24 98/52 (67) 100 07/16/19 02:32 91/44 07/16/19 02:30 78 23 91/44 (60) 100 07/16/19 02:00 86/49 07/16/19 02:00 77 26 101/54 (70) 100 07/16/19 01:30 75 27 98/68 (78) 07/16/19 01:00 95/58 07/16/19 01:00 76 24 100/47 (64) 07/16/19 00:57 88 34 100 Full Face 30 07/16/19 00:30 82 23 95/58 (70) 07/16/19 00:00 98.6 87 29 103/56 (72) 100 07/16/19 00:00 77 07/16/19 00:00 106/53 07/16/19 00:00 30 07/16/19 00:00 Bi-pap 07/15/19 23:30 78 27 103/54 (70) 100 07/15/19 23:00 78 25 105/49 (67) 100 07/15/19 22:56 79 36 100 Full Face 30 07/15/19 22:30 77 23 97/44 (61) 100 07/15/19 22:00 76 27 92/69 (77) 100 07/15/19 21:30 78 22 102/52 (69) 100 07/15/19 21:15 77 27 110/88 (95) 100 07/15/19 21:12 77 26 100 Full Face 30 07/15/19 21:00 77 28 93/49 (64) 100 07/15/19 20:45 73 22 93/57 (69) 100 07/15/19 20:30 79 27 101/66 (78) 100 07/15/19 20:15 78 26 104/50 (68) 100 07/15/19 20:00 77 07/15/19 20:00 Bi-pap 07/15/19 20:00 98.7 78 24 99/56 (70) 100 07/15/19 20:00 30 07/15/19 19:45 78 30 123/53 (76) 100 07/15/19 19:30 78 29 93/45 (61) 100 07/15/19 19:15 76 27 112/52 (72) 100 07/15/19 19:14 80 39 100 Full Face 30 07/15/19 19:14 100 Bi-Pap 30 07/15/19 19:13 97/53 07/15/19 19:00 76 26 97/53 (68) 100 07/15/19 18:00 79 27 98/55 (69) 100 07/15/19 17:00 77 28 103/49 (67) 100 07/15/19 16:00 Nasal Cannula 2.0 07/15/19 16:00 78 07/15/19 16:00 98.6 76 25 95/57 (70) 100 07/15/19 16:00 30 07/15/19 15:21 81 32 100 Facial 30 07/15/19 15:00 86 24 115/67 (83) 100 07/15/19 14:53 119/55 07/15/19 14:00 78 20 100/61 (74) 100 07/15/19 13:37 79 33 100 Facial 30 07/15/19 13:33 30 I&O Intake and Output 07/15/19 07/16/19 18:59 06:59 Intake Total 2139.344 ml 1500.79 ml Output Total 900 ml 850 ml Balance 1239.344 ml 650.79 ml IV Total 2079.344 ml 1500.79 ml Other 60 ml Output Urine Total 0 ml 0 ml Stool Total 900 ml 800 ml Gastric Drainage Total 50 ml Dressing: dry Wound: clean Cardiovascular: RSR Respiratory: clear Abdomen: soft, distended, decreased bowel sounds Extremities: no cyanosis, other Laboratory Tests Test 07/16/19 04:30 White Blood Count 44.0 K/UL (4.8-10.8) *H Red Blood Count 2.52 M/UL (4.70-6.10) L Hemoglobin 7.5 G/DL (14.2-18.0) L Hematocrit 23.3 % (42.0-52.0) L Mean Corpuscular Volume 92 FL (80-99) Mean Corpuscular Hemoglobin 29.8 PG (27.0-31.0) Mean Corpuscular Hemoglobin Concent 32.3 G/DL (32.0-36.0) Red Cell Distribution Width 22.9 % (11.6-14.8) H Platelet Count 82 K/UL (150-450) L Mean Platelet Volume 6.8 FL (6.5-10.1) Neutrophils (%) (Auto) % (45.0-75.0) Lymphocytes (%) (Auto) % (20.0-45.0) Monocytes (%) (Auto) % (1.0-10.0) Eosinophils (%) (Auto) % (0.0-3.0) Basophils (%) (Auto) % (0.0-2.0) Differential Total Cells Counted 100 Neutrophils % (Manual) 81 % (45-75) H Lymphocytes % (Manual) 6 % (20-45) L Monocytes % (Manual) 5 % (1-10) Eosinophils % (Manual) 0 % (0-3) Basophils % (Manual) 0 % (0-2) Myelocytes % 2 % (0-0) H Band Neutrophils 6 % (0-8) Platelet Estimate Decreased L Platelet Morphology Normal Polychromasia 1+ Hypochromasia 1+ Anisocytosis 3+ Schistocytes Occasional Sodium Level 144 MMOL/L (136-145) Potassium Level 3.0 MMOL/L (3.5-5.1) L Chloride Level 109 MMOL/L (98-107) H Carbon Dioxide Level 11 MMOL/L (21-32) L Anion Gap 24 mmol/L (5-15) H Blood Urea Nitrogen 96 mg/dL (7-18) H Creatinine 10.8 MG/DL (0.55-1.30) H Estimat Glomerular Filtration Rate 5.3 mL/min (>60) Glucose Level 162 MG/DL (74-106) H Calcium Level 7.1 MG/DL (8.5-10.1) L Total Bilirubin 36.9 MG/DL (0.2-1.0) H Direct Bilirubin 29.3 MG/DL (0.0-0.3) H Aspartate Amino Transf (AST/SGOT) 147 U/L (15-37) H Alanine Aminotransferase (ALT/SGPT) 8 U/L (12-78) L Alkaline Phosphatase 277 U/L (46-116) H Total Protein 4.8 G/DL (6.4-8.2) L Albumin 1.6 G/DL (3.4-5.0) L Plan Problems: (1) Pancreatitis, alcoholic, acute Assessment & Plan: Acute alcoholic pancreatitis. Levels fluctuating. Plan to check levels tomorrow Treat medically and conservatively for now If worsening leukocytosis may consider CT scan (2) Hepatorenal syndrome Assessment & Plan: Chronic liver disease acute, with acute pancreatitis and potential about her renal syndrome as noted. Currently stable treat conservatively no acute surgical intervention recommended Unfortunately invasive techniques not available at this facility Continue with ICU care and management (3) Respiratory failure (4) skin intergrety Assessment & Plan: Pt noted to have dry eschar bridge of nose. Periwound without erythema or fluctuance. Shearing noted to R and L clefts of buttocks. No exudate noted. Both heels firm and blanchable. Tx.Plan: Swab bridge of nose with Benzoin Tincture Twice Daily. Apply Moisture Barrier Paste to buttocks with each perineal care. Apply Cavilon Skin Barrier to both heels. Cover each heel with Optifoam drsg. Change every 7 days and prn. APM/MATTHEW mattress overlay. Reposition at least every 2hours or as tolerated. Off-load heels with pillow. (5) End-stage liver disease Assessment & Plan: DAILY ESTIMATED NEEDS: Needs based on Liver dz, 79kg adj 25-30 kcals/kg 9468-8975 total kcals 1-1.5 (w/ HD 1.2-1.8) g protein/kg 79-119g (w/ HD 95-142g) g total protein Fluid per MD NUTRITION DIAGNOSIS: * Decreased sodium and fat needs r/t liver disease, cirrhosis, acute pancreatitis as evidenced by Abd US, elev T bili (33.5), pt is jaundiced, fatty liver, elev ammonia and AST, elev lipse (643), h/o etoh abuse, adm w/ elev serum alcohol. * Swallowing difficulty R/T confusion, dysphagia as evidenced by NGT feeding initiated, seen by BOILERMAKER PIPE FITTER w/ rec to continue nonoral feeds at this time. CURRENT TF: NEPRO @45 + PS x1 PO DIET RECOMMENDATIONS: WHEN SAFE FOR ORAL FEEDING -> LOW NA/ LOW FAT (texture per BOILER[employer] PIPE FITTER) ENTERAL NUTRITION RECOMMENDATIONS: MAINTAIN NEPRO W/ DIALYSIS TXT: Nepro @45ml/hr x24 hrs + PS x1 to provide 1080ml, 1944 kcal, 87g pro, 785ml free H20 * Maintain Nepro @45ml/hr as tolerated. * Add Prosource x1 pack daily to better meet est pro needs on HD * HOB over 30 degrees/ water flush per MD ADDITIONAL RECOMMENDATIONS: 1) Calibrated bedscale wt 2) Monitor for ability to start oral feeding 3) Check lytes daily 4) Rec to re-add thiamine + Folate daily, add MVI x 1 5) REC TF CHANGE TO NEPRO W/ DIALYSIS TXT 6) Monitor BGs closely, need for hypoglycemics (6) Acute alcoholic intoxication Kennedy Ellison Jul 16, 2019 13:25
[2019-07-16] MEDS: DOPamine 400mg/250ml 250 ML IV SCH (14:53)
--- NOTE | 2019-07-16 15:02 | Cardiac Electrophysiology PN ---
Assessment/Plan Assessment/Plan 1. Sinus tach due to alcohol withdrawal and hepatic encephalopathy. No SVT or atrial fibrillation. EF 55% 2. Cirrhosis. On Lactulose . S/P paracentesis 3. Hypotension on Levophed 4. Hepatorenal syndrome. Fu . S/P Carrillo Catheter and prn HD 5. Hypokalemia. 6. Alcohol intoxication. Thiamine, folate, and Librium. 7. Hepatic encephalopathy DW RN Subjective Subjective In ICU Lethargic on BIPAP at nights. No arrhythmias. On 24 mcg of Levophed now Objective Last 24 Hour Vital Signs Date Time Temp Pulse Resp B/P (MAP) Pulse Ox O2 Delivery O2 Flow Rate FiO2 07/16/19 12:00 2.0 07/16/19 12:00 98.3 84 26 103/49 (67) 95 07/16/19 12:00 Nasal Cannula 2.0 07/16/19 12:00 103/49 07/16/19 11:00 94/49 07/16/19 11:00 79 30 95/51 (66) 96 07/16/19 10:30 80 26 104/57 (73) 96 07/16/19 10:00 80 33 98/48 (65) 97 07/16/19 10:00 93/53 07/16/19 09:57 83/49 07/16/19 09:30 84 31 82/36 (51) 95 07/16/19 09:00 96/70 07/16/19 09:00 81 30 96/70 (79) 96 07/16/19 08:30 77 27 83/49 (60) 97 07/16/19 08:00 Nasal Cannula 2.0 07/16/19 08:00 2.0 07/16/19 08:00 97.7 79 23 93/51 (65) 97 07/16/19 07:32 76 07/16/19 07:30 78 25 101/48 (65) 96 07/16/19 07:00 76 23 95/47 (63) 97 07/16/19 06:51 98 Nasal Cannula 2.0 28 07/16/19 06:00 84 23 97/62 (74) 99 07/16/19 06:00 109/49 07/16/19 05:30 84 23 104/52 (69) 99 07/16/19 05:17 78 31 99 Full Face 30 07/16/19 05:00 100/51 07/16/19 05:00 75 22 103/43 (63) 100 07/16/19 04:30 76 27 99/56 (70) 100 07/16/19 04:00 98.7 77 24 104/54 (71) 100 07/16/19 04:00 73 07/16/19 04:00 103/51 07/16/19 04:00 30 07/16/19 04:00 Bi-pap 07/16/19 03:45 77 25 101/54 (70) 100 07/16/19 03:30 73 25 83/45 (58) 100 07/16/19 03:15 75 24 100/46 (64) 100 07/16/19 03:08 76 29 100 Full Face 30 07/16/19 03:00 83/45 07/16/19 03:00 77 24 98/52 (67) 100 07/16/19 02:32 91/44 07/16/19 02:30 78 23 91/44 (60) 100 07/16/19 02:00 86/49 07/16/19 02:00 77 26 101/54 (70) 100 07/16/19 01:30 75 27 98/68 (78) 07/16/19 01:00 95/58 07/16/19 01:00 76 24 100/47 (64) 07/16/19 00:57 88 34 100 Full Face 30 07/16/19 00:30 82 23 95/58 (70) 07/16/19 00:00 98.6 87 29 103/56 (72) 100 07/16/19 00:00 77 07/16/19 00:00 106/53 07/16/19 00:00 30 07/16/19 00:00 Bi-pap 07/15/19 23:30 78 27 103/54 (70) 100 07/15/19 23:00 78 25 105/49 (67) 100 07/15/19 22:56 79 36 100 Full Face 30 07/15/19 22:30 77 23 97/44 (61) 100 07/15/19 22:00 76 27 92/69 (77) 100 07/15/19 21:30 78 22 102/52 (69) 100 07/15/19 21:15 77 27 110/88 (95) 100 07/15/19 21:12 77 26 100 Full Face 30 07/15/19 21:00 77 28 93/49 (64) 100 07/15/19 20:45 73 22 93/57 (69) 100 07/15/19 20:30 79 27 101/66 (78) 100 07/15/19 20:15 78 26 104/50 (68) 100 07/15/19 20:00 77 07/15/19 20:00 Bi-pap 07/15/19 20:00 98.7 78 24 99/56 (70) 100 07/15/19 20:00 30 07/15/19 19:45 78 30 123/53 (76) 100 07/15/19 19:30 78 29 93/45 (61) 100 07/15/19 19:15 76 27 112/52 (72) 100 07/15/19 19:14 80 39 100 Full Face 30 07/15/19 19:14 100 Bi-Pap 30 07/15/19 19:13 97/53 07/15/19 19:00 76 26 97/53 (68) 100 07/15/19 18:00 79 27 98/55 (69) 100 07/15/19 17:00 77 28 103/49 (67) 100 07/15/19 16:00 Nasal Cannula 2.0 07/15/19 16:00 78 07/15/19 16:00 98.6 76 25 95/57 (70) 100 07/15/19 16:00 30 07/15/19 15:21 81 32 100 Facial 30 Intake and Output 07/15/19 07/16/19 18:59 06:59 Intake Total 2139.344 ml 1500.79 ml Output Total 900 ml 850 ml Balance 1239.344 ml 650.79 ml IV Total 2079.344 ml 1500.79 ml Other 60 ml Output Urine Total 0 ml 0 ml Stool Total 900 ml 800 ml Gastric Drainage Total 50 ml Laboratory Tests Test 07/16/19 04:30 White Blood Count 44.0 K/UL (4.8-10.8) *H Red Blood Count 2.52 M/UL (4.70-6.10) L Hemoglobin 7.5 G/DL (14.2-18.0) L Hematocrit 23.3 % (42.0-52.0) L Mean Corpuscular Volume 92 FL (80-99) Mean Corpuscular Hemoglobin 29.8 PG (27.0-31.0) Mean Corpuscular Hemoglobin Concent 32.3 G/DL (32.0-36.0) Red Cell Distribution Width 22.9 % (11.6-14.8) H Platelet Count 82 K/UL (150-450) L Mean Platelet Volume 6.8 FL (6.5-10.1) Neutrophils (%) (Auto) % (45.0-75.0) Lymphocytes (%) (Auto) % (20.0-45.0) Monocytes (%) (Auto) % (1.0-10.0) Eosinophils (%) (Auto) % (0.0-3.0) Basophils (%) (Auto) % (0.0-2.0) Differential Total Cells Counted 100 Neutrophils % (Manual) 81 % (45-75) H Lymphocytes % (Manual) 6 % (20-45) L Monocytes % (Manual) 5 % (1-10) Eosinophils % (Manual) 0 % (0-3) Basophils % (Manual) 0 % (0-2) Myelocytes % 2 % (0-0) H Band Neutrophils 6 % (0-8) Platelet Estimate Decreased L Platelet Morphology Normal Polychromasia 1+ Hypochromasia 1+ Anisocytosis 3+ Schistocytes Occasional Sodium Level 144 MMOL/L (136-145) Potassium Level 3.0 MMOL/L (3.5-5.1) L Chloride Level 109 MMOL/L (98-107) H Carbon Dioxide Level 11 MMOL/L (21-32) L Anion Gap 24 mmol/L (5-15) H Blood Urea Nitrogen 96 mg/dL (7-18) H Creatinine 10.8 MG/DL (0.55-1.30) H Estimat Glomerular Filtration Rate 5.3 mL/min (>60) Glucose Level 162 MG/DL (74-106) H Calcium Level 7.1 MG/DL (8.5-10.1) L Total Bilirubin 36.9 MG/DL (0.2-1.0) H Direct Bilirubin 29.3 MG/DL (0.0-0.3) H Aspartate Amino Transf (AST/SGOT) 147 U/L (15-37) H Alanine Aminotransferase (ALT/SGPT) 8 U/L (12-78) L Alkaline Phosphatase 277 U/L (46-116) H Total Protein 4.8 G/DL (6.4-8.2) L Albumin 1.6 G/DL (3.4-5.0) L Objective HEAD AND NECK: No JVD. Sclera is icteric. R IJ Perm Cath LUNGS: Decreased breath sounds. CARDIOVASCULAR: Tachy S1 and S2 with no gallop. ABDOMEN: Distended with ascites. EXTREMITIES: 2+ pitting edema. Felice Smith MD Jul 16, 2019 15:02
[2019-07-16] MEDS: Dyna-Hex 2% Top Sol 2oz TOPIC SCH (20:35)
[2019-07-16] MEDS: Epoetin Alfa-EPBX(ESRD on dialysis)3000 units/ml vial SUBQ SCH (20:36)
[2019-07-16] MEDS: Epoetin Alfa-EPBX(ESRD on dialysis)2000 units/ml vial SUBQ SCH (20:37)
--- NOTE | 2019-07-16 21:36 | General Progress Note ---
Assessment/Plan Problem List: (1) Anemia ICD Codes: D64.9 - Anemia, unspecified SNOMED: 032115212 Qualifiers: Qualified Codes: D64.9 - Anemia, unspecified (2) Acute alcoholic intoxication ICD Codes: F10.929 - Alcohol use, unspecified with intoxication, unspecified SNOMED: 61136348, 9480648 Qualifiers: Qualified Codes: F10.920 - Alcohol use, unspecified with intoxication, uncomplicated (3) End-stage liver disease ICD Codes: K72.90 - Hepatic failure, unspecified without coma SNOMED: 169386050 (4) Hepatorenal syndrome ICD Codes: K76.7 - Hepatorenal syndrome SNOMED: 91370927, 1279468 (5) Pancreatitis, alcoholic, acute ICD Codes: K85.20 - Alcohol induced acute pancreatitis without necrosis or infection SNOMED: 681856865, 5790179 Qualifiers: Qualified Codes: K85.20 - Alcohol induced acute pancreatitis without necrosis or infection (6) Respiratory failure ICD Codes: J96.90 - Respiratory failure, unspecified, unspecified whether with hypoxia or hypercapnia SNOMED: 962641852 Status: stable, progressing, deteriorating Assessment/Plan: etoh cirrhosis ascites renal failure very poor prognosis moniter for gi bleeding hepatic encephalopathy elevated lft is persistent hepatorenal syndrome Subjective Gastrointestinal/Abdominal: Reports: abdominal pain Allergies: Coded Allergies: No Known Allergies (Unverified , 06/20/19) Objective Last 24 Hour Vital Signs Date Time Temp Pulse Resp B/P (MAP) Pulse Ox O2 Delivery O2 Flow Rate FiO2 07/16/19 19:29 100 Nasal Cannula 2.0 28 07/16/19 19:00 85 26 100/52 (68) 98 07/16/19 18:45 80 27 92/47 (62) 98 07/16/19 18:30 80 26 94/42 (59) 97 07/16/19 18:00 78 27 100/44 (62) 97 07/16/19 17:30 79 25 91/45 (60) 97 07/16/19 17:00 80 27 106/50 (68) 97 07/16/19 16:45 83 29 101/48 (65) 97 07/16/19 16:30 81 32 100/50 (67) 96 07/16/19 16:00 98.3 80 29 112/68 (83) 94 07/16/19 16:00 2.0 07/16/19 16:00 112/68 07/16/19 16:00 Nasal Cannula 2.0 07/16/19 15:59 112/68 07/16/19 15:45 79 24 112/68 (83) 95 07/16/19 15:31 79 07/16/19 15:30 80 26 100/45 (63) 96 07/16/19 15:15 85 27 103/57 (72) 97 07/16/19 15:00 89 27 107/58 (74) 94 07/16/19 15:00 107/58 07/16/19 14:53 107/58 07/16/19 14:45 82 31 98/48 (65) 94 07/16/19 14:30 83 28 104/53 (70) 96 07/16/19 14:25 80 27 89/47 (61) 97 07/16/19 14:21 78 20 86/46 (59) 97 07/16/19 14:21 86/46 07/16/19 14:15 81 29 91/45 (60) 96 07/16/19 14:00 87 31 105/47 (66) 95 07/16/19 14:00 91/45 07/16/19 13:30 84 30 114/44 (67) 96 07/16/19 13:00 83 30 94/50 (65) 95 07/16/19 13:00 92/47 07/16/19 12:30 81 31 73/48 (56) 93 07/16/19 12:00 2.0 07/16/19 12:00 98.3 84 26 103/49 (67) 95 07/16/19 12:00 Nasal Cannula 2.0 07/16/19 12:00 103/49 07/16/19 11:31 85 07/16/19 11:00 94/49 07/16/19 11:00 79 30 95/51 (66) 96 07/16/19 10:30 80 26 104/57 (73) 96 07/16/19 10:00 80 33 98/48 (65) 97 07/16/19 10:00 93/53 07/16/19 09:57 83/49 07/16/19 09:30 84 31 82/36 (51) 95 07/16/19 09:00 96/70 07/16/19 09:00 81 30 96/70 (79) 96 07/16/19 08:30 77 27 83/49 (60) 97 07/16/19 08:00 Nasal Cannula 2.0 07/16/19 08:00 2.0 07/16/19 08:00 97.7 79 23 93/51 (65) 97 07/16/19 07:32 76 07/16/19 07:30 78 25 101/48 (65) 96 07/16/19 07:00 76 23 95/47 (63) 97 07/16/19 06:51 98 Nasal Cannula 2.0 28 07/16/19 06:00 84 23 97/62 (74) 99 07/16/19 06:00 109/49 07/16/19 05:30 84 23 104/52 (69) 99 07/16/19 05:17 78 31 99 Full Face 30 07/16/19 05:00 100/51 07/16/19 05:00 75 22 103/43 (63) 100 07/16/19 04:30 76 27 99/56 (70) 100 07/16/19 04:00 98.7 77 24 104/54 (71) 100 07/16/19 04:00 73 07/16/19 04:00 103/51 07/16/19 04:00 30 07/16/19 04:00 Bi-pap 07/16/19 03:45 77 25 101/54 (70) 100 07/16/19 03:30 73 25 83/45 (58) 100 07/16/19 03:15 75 24 100/46 (64) 100 07/16/19 03:08 76 29 100 Full Face 30 07/16/19 03:00 83/45 07/16/19 03:00 77 24 98/52 (67) 100 07/16/19 02:32 91/44 07/16/19 02:30 78 23 91/44 (60) 100 07/16/19 02:00 86/49 07/16/19 02:00 77 26 101/54 (70) 100 07/16/19 01:30 75 27 98/68 (78) 07/16/19 01:00 95/58 07/16/19 01:00 76 24 100/47 (64) 07/16/19 00:57 88 34 100 Full Face 30 07/16/19 00:30 82 23 95/58 (70) 07/16/19 00:00 98.6 87 29 103/56 (72) 100 07/16/19 00:00 77 07/16/19 00:00 106/53 07/16/19 00:00 30 07/16/19 00:00 Bi-pap 07/15/19 23:30 78 27 103/54 (70) 100 07/15/19 23:00 78 25 105/49 (67) 100 07/15/19 22:56 79 36 100 Full Face 30 07/15/19 22:30 77 23 97/44 (61) 100 07/15/19 22:00 76 27 92/69 (77) 100 Intake and Output 07/15/19 07/16/19 19:00 07:00 Intake Total 2032.97 ml 1590.79 ml Output Total 950 ml 800 ml Balance 1082.97 ml 790.79 ml IV Total 1972.97 ml 1590.79 ml Other 60 ml Output Urine Total 0 ml 0 ml Stool Total 900 ml 800 ml Gastric Drainage Total 50 ml Laboratory Tests 07/16/19 04:30: White Blood Count 44.0*H, Red Blood Count 2.52L, Hemoglobin 7.5L, Hematocrit 23.3L, Mean Corpuscular Volume 92, Mean Corpuscular Hemoglobin 29.8, Mean Corpuscular Hemoglobin Concent 32.3, Red Cell Distribution Width 22.9H, Platelet Count 82L, Mean Platelet Volume 6.8, Neutrophils (%) (Auto) , Lymphocytes (%) (Auto) , Monocytes (%) (Auto) , Eosinophils (%) (Auto) , Basophils (%) (Auto) , Differential Total Cells Counted 100, Neutrophils % ( Manual) 81H, Lymphocytes % (Manual) 6L, Monocytes % (Manual) 5, Eosinophils % ( Manual) 0, Basophils % (Manual) 0, Myelocytes % 2H, Band Neutrophils 6, Platelet Estimate DecreasedL, Platelet Morphology Normal, Polychromasia 1+, Hypochromasia 1+, Anisocytosis 3+, Schistocytes Occasional, Sodium Level 144, Potassium Level 3.0L, Chloride Level 109H, Carbon Dioxide Level 11L, Anion Gap 24H, Blood Urea Nitrogen 96H, Creatinine 10.8H, Estimat Glomerular Filtration Rate 5.3, Glucose Level 162H, Calcium Level 7.1L, Total Bilirubin 36.9H, Direct Bilirubin 29.3H, Aspartate Amino Transf (AST/SGOT) 147H, Alanine Aminotransferase (ALT/SGPT) 8L, Alkaline Phosphatase 277H, Total Protein 4.8L, Albumin 1.6L Height (Feet): 5 Height (Inches): 9.00 Weight (Pounds): 232 General Appearance: confused Respiratory/Chest: lungs clear Abdomen: tender Deejay Saldaña MD Jul 16, 2019 21:36
[2019-07-17] VITALS (34 sets, daily range): BP systolic 82–112; BP diastolic 37–60
[2019-07-17] MEDS: Octreotide Acetate 500 MCG in Sodium Chloride 499 ML IV SCH ×3 (00:22→22:52)
[2019-07-17] MEDS: Norepinephrine Bitartrate 8 MG in D5W 500ml 550 ML IV SCH ×3 (04:36→16:47)
[2019-07-17] MEDS: D5 1/2NS 1,000 ML IV SCH (04:44)
[2019-07-17 04:55] LABS: HEMATOCRIT 23.5 % (42.0-52.0); HEMOGLOBIN 7.4 G/DL (14.2-18.0); MEAN CORPUSCULAR VOLUME 95 FL (80-99); PLATELET COUNT 87 K/UL (150-450); RED BLOOD COUNT 2.48 M/UL (4.70-6.10); RED CELL DISTRIBUTION WIDTH 24.1 % (11.6-14.8)
[2019-07-17 05:03] LABS: INR 2.5 (0.9-1.1)
[2019-07-17 05:21] LABS: ALANINE AMINOTRANSFERASE 11 U/L (12-78); ALBUMIN 1.5 G/DL (3.4-5.0); ALBUMIN/GLOBULIN RATIO 0.5 (1.0-2.7); ALKALINE PHOSPHATASE 298 U/L (46-116); ANION GAP 25 mmol/L (5-15); ASPARTATE AMINO TRANSFERASE 187 U/L (15-37); BILIRUBIN,DIRECT 27.1 MG/DL (0.0-0.3); BILIRUBIN,TOTAL 34.8 MG/DL (0.2-1.0); BLOOD UREA NITROGEN 99 mg/dL (7-18); CARBON DIOXIDE 10 MMOL/L (21-32); CHLORIDE 105 MMOL/L (98-107); CREATININE 11.3 MG/DL (0.55-1.30); POTASSIUM 3.5 MMOL/L (3.5-5.1); SODIUM 140 MMOL/L (136-145)
--- NOTE | 2019-07-17 08:27 | Critical Care Progress Note ---
Assessment/Plan Assessment/Plan Impression: Alcoholic hepatitis/fatty liver Liver failure GI bleeding Sepsis pneumonia clearing Hepatorenal syndrome - worsening renal function - on HD Multiorgan Failure Poor prognosis Possible Portal Hypertension Pancreatitis, alcoholic, acute Anemia Plan ICU management noted Antibiotics per ID- reviewed wbc worsening monitor HH Aspiration precautions BiPAP PRN- monitor for change and CO2 retention NC O2 GI/Renal following- reviewed HD per Nephrology Monitor labs monitor oxygen needs Patient has poor prognosis overall with MODS medications/laboratory data/nursing notes/ICU care reviewed in detail note reviewed and edited care discussed with RN and RT ICU time spent 40 minutes Critical Care - Subjective Interval Events: events noted remains acutely ill ROS Limited/Unobtainable: Yes Condition: critical EKG Rhythm: Sinus Rhythm I&O: Intake and Output 07/16/19 07/17/19 19:00 07:00 Intake Total 1701.821 ml 2596.91 ml Output Total 550 ml 300 ml Balance 1151.821 ml 2296.91 ml IV Total 1561.821 ml 2276.91 ml Tube Feeding 60 ml 260 ml Other 80 ml 60 ml Output Urine Total 0 ml 0 ml Stool Total 550 ml 300 ml Critical Care - Objective Last 24 Hour Vital Signs Date Time Temp Pulse Resp B/P (MAP) Pulse Ox O2 Delivery O2 Flow Rate FiO2 07/17/19 07:27 96 Nasal Cannula 2.0 28 07/17/19 07:00 99/41 07/17/19 07:00 86 27 99/41 (60) 98 07/17/19 06:00 109/53 07/17/19 06:00 86 27 109/53 (71) 98 07/17/19 05:09 89 30 98 Full Face 30 07/17/19 05:00 86 27 112/52 (72) 98 07/17/19 05:00 112/57 07/17/19 04:36 95/51 07/17/19 04:30 82 26 95/51 (66) 96 07/17/19 04:00 30 07/17/19 04:00 95/47 07/17/19 04:00 83 07/17/19 04:00 83 27 103/51 (68) 97 07/17/19 04:00 Nasal Cannula 2.0 07/17/19 03:30 81 25 97/41 (59) 96 07/17/19 03:07 84 26 97 Full Face 30 07/17/19 03:00 80 28 94/42 (59) 96 07/17/19 03:00 95/37 07/17/19 02:30 82 27 100/41 (60) 96 07/17/19 02:00 84 28 88/46 (60) 97 07/17/19 02:00 109/38 07/17/19 01:30 82 31 82/41 (55) 96 07/17/19 01:06 89 35 98 Full Face 30 07/17/19 01:00 92 28 108/48 (68) 98 07/17/19 01:00 101/44 07/17/19 00:30 87 23 105/42 (63) 97 07/17/19 00:00 2.0 07/17/19 00:00 87 31 104/48 (66) 98 07/17/19 00:00 Nasal Cannula 2.0 07/17/19 00:00 99/43 07/17/19 00:00 86 07/16/19 23:00 82 22 106/41 (62) 98 07/16/19 22:42 80 32 98 Full Face 30 07/16/19 22:30 84 29 90/43 (59) 96 07/16/19 22:20 91/44 07/16/19 22:00 91/44 07/16/19 22:00 98.8 84 25 102/43 (62) 96 07/16/19 21:30 83 28 94/43 (60) 97 07/16/19 21:00 78 28 95/40 (58) 96 07/16/19 21:00 102/38 07/16/19 20:30 80 24 92/60 (71) 96 07/16/19 20:00 79 07/16/19 20:00 2.0 07/16/19 20:00 99/47 07/16/19 20:00 Nasal Cannula 2.0 07/16/19 20:00 80 27 98/45 (62) 97 07/16/19 19:29 100 Nasal Cannula 2.0 28 07/16/19 19:00 99/48 07/16/19 19:00 85 26 100/52 (68) 98 07/16/19 18:45 80 27 92/47 (62) 98 07/16/19 18:30 80 26 94/42 (59) 97 07/16/19 18:00 78 27 100/44 (62) 97 07/16/19 17:30 79 25 91/45 (60) 97 07/16/19 17:00 80 27 106/50 (68) 97 07/16/19 16:45 83 29 101/48 (65) 97 07/16/19 16:30 81 32 100/50 (67) 96 07/16/19 16:00 98.3 80 29 112/68 (83) 94 07/16/19 16:00 2.0 07/16/19 16:00 112/68 07/16/19 16:00 Nasal Cannula 2.0 07/16/19 15:59 112/68 07/16/19 15:45 79 24 112/68 (83) 95 07/16/19 15:31 79 07/16/19 15:30 80 26 100/45 (63) 96 07/16/19 15:15 85 27 103/57 (72) 97 07/16/19 15:00 89 27 107/58 (74) 94 07/16/19 15:00 107/58 07/16/19 14:53 107/58 07/16/19 14:45 82 31 98/48 (65) 94 07/16/19 14:30 83 28 104/53 (70) 96 07/16/19 14:25 80 27 89/47 (61) 97 07/16/19 14:21 78 20 86/46 (59) 97 07/16/19 14:21 86/46 07/16/19 14:15 81 29 91/45 (60) 96 07/16/19 14:00 87 31 105/47 (66) 95 07/16/19 14:00 91/45 07/16/19 13:30 84 30 114/44 (67) 96 07/16/19 13:00 83 30 94/50 (65) 95 07/16/19 13:00 92/47 07/16/19 12:30 81 31 73/48 (56) 93 07/16/19 12:00 2.0 07/16/19 12:00 98.3 84 26 103/49 (67) 95 07/16/19 12:00 Nasal Cannula 2.0 07/16/19 12:00 103/49 9/23/19 11:31 85 07/16/19 11:00 94/49 07/16/19 11:00 79 30 95/51 (66) 96 07/16/19 10:30 80 26 104/57 (73) 96 07/16/19 10:00 80 33 98/48 (65) 97 07/16/19 10:00 93/53 07/16/19 09:57 83/49 07/16/19 09:30 84 31 82/36 (51) 95 07/16/19 09:00 96/70 07/16/19 09:00 81 30 96/70 (79) 96 07/16/19 08:30 77 27 83/49 (60) 97 Objective: WDWN NAD clear breath sounds bilaterally without rhonchi or wheeze [id number] without MRG NABS nontender no HSM no CC noted edema reduced LOC Reji Huitron MD Jul 17, 2019 08:27
[2019-07-17] MEDS: Lactulose 20gm/30ml UDC NG SCH ×4 (08:56→21:05)
[2019-07-17] MEDS: Thiamine 100mg tab ORAL SCH (08:56)
[2019-07-17] MEDS: Pantoprazole Inj IVP SCH ×2 (08:56→21:05)
[2019-07-17] MEDS: Cefepime HCl 1 GM in D5W 55 ML IVPB SCH (08:57)
[2019-07-17] MEDS ORDERED: Tubing IV Secondary IV ONE ×2 (10:17→14:56)
[2019-07-17] MEDS ORDERED: D5 1/2NS 1000ml IV ONE ×2 (10:17→14:56)
--- NOTE | 2019-07-17 10:54 | Infectious Diseases Prog Note ---
Assessment/Plan Assessment/Plan IMPRESSION: 1. Sepsis. 2. leukocytosis 3. Tachycardia. 4. Leukocytosis. 5. colitis, 6.Alcoholic pancreatitis, 7.Cirrhosis of liver, 8. Acute renal failure likely hepatorenal syndrome, - ESRD 9.Anemia, 10. thrombocytopenia, 11.hypocalcemia, 12.hypomagnesemia, corrected 13 hypokalemia, 14, Alcohol withdrawal. 15.Metabolic encephalopathy 16. Hypophosphatemia 17. Hypernatremia 18. Hypoxic respiratory failure 19 GI bleeding RECOMMENDATION: Continue Cefepime f/u CXR Poor prognosis Subjective ROS Limited/Unobtainable: Yes Constitutional: Denies: fever Neurologic: Reports: confusion, other - on restraint Allergies: Coded Allergies: No Known Allergies (Unverified , 06/20/19) Objective Vital Signs Last 24 Hour Vital Signs Date Time Temp Pulse Resp B/P (MAP) Pulse Ox O2 Delivery O2 Flow Rate FiO2 07/17/19 10:29 106/49 07/17/19 10:00 83 27 107/41 (63) 95 07/17/19 09:00 86 27 97/37 (57) 95 07/17/19 08:00 Nasal Cannula 2.0 07/17/19 08:00 98.8 83 27 104/41 (62) 98 07/17/19 08:00 2.0 07/17/19 07:27 96 Nasal Cannula 2.0 28 07/17/19 07:00 99/41 07/17/19 07:00 86 27 99/41 (60) 98 07/17/19 06:00 109/53 07/17/19 06:00 86 27 109/53 (71) 98 07/17/19 05:09 89 30 98 Full Face 30 07/17/19 05:00 86 27 112/52 (72) 98 07/17/19 05:00 112/57 07/17/19 04:36 95/51 07/17/19 04:30 82 26 95/51 (66) 96 07/17/19 04:00 30 07/17/19 04:00 95/47 07/17/19 04:00 83 07/17/19 04:00 83 27 103/51 (68) 97 07/17/19 04:00 Nasal Cannula 2.0 07/17/19 03:30 81 25 97/41 (59) 96 07/17/19 03:07 84 26 97 Full Face 30 07/17/19 03:00 80 28 94/42 (59) 96 07/17/19 03:00 95/37 07/17/19 02:30 82 27 100/41 (60) 96 07/17/19 02:00 84 28 88/46 (60) 97 07/17/19 02:00 109/38 07/17/19 01:30 82 31 82/41 (55) 96 07/17/19 01:06 89 35 98 Full Face 30 07/17/19 01:00 92 28 108/48 (68) 98 07/17/19 01:00 101/44 07/17/19 00:30 87 23 105/42 (63) 97 07/17/19 00:00 2.0 07/17/19 00:00 87 31 104/48 (66) 98 07/17/19 00:00 Nasal Cannula 2.0 07/17/19 00:00 99/43 07/17/19 00:00 86 07/16/19 23:00 82 22 106/41 (62) 98 07/16/19 22:42 80 32 98 Full Face 30 07/16/19 22:30 84 29 90/43 (59) 96 07/16/19 22:20 91/44 07/16/19 22:00 91/44 07/16/19 22:00 98.8 84 25 102/43 (62) 96 07/16/19 21:30 83 28 94/43 (60) 97 07/16/19 21:00 78 28 95/40 (58) 96 07/16/19 21:00 102/38 07/16/19 20:30 80 24 92/60 (71) 96 07/16/19 20:00 79 07/16/19 20:00 2.0 07/16/19 20:00 99/47 07/16/19 20:00 Nasal Cannula 2.0 07/16/19 20:00 80 27 98/45 (62) 97 07/16/19 19:29 100 Nasal Cannula 2.0 28 07/16/19 19:00 99/48 07/16/19 19:00 85 26 100/52 (68) 98 07/16/19 18:45 80 27 92/47 (62) 98 07/16/19 18:30 80 26 94/42 (59) 97 07/16/19 18:00 78 27 100/44 (62) 97 07/16/19 17:30 79 25 91/45 (60) 97 07/16/19 17:00 80 27 106/50 (68) 97 07/16/19 16:45 83 29 101/48 (65) 97 07/16/19 16:30 81 32 100/50 (67) 96 07/16/19 16:00 98.3 80 29 112/68 (83) 94 07/16/19 16:00 2.0 07/16/19 16:00 112/68 07/16/19 16:00 Nasal Cannula 2.0 07/16/19 15:59 112/68 07/16/19 15:45 79 24 112/68 (83) 95 07/16/19 15:31 79 07/16/19 15:30 80 26 100/45 (63) 96 07/16/19 15:15 85 27 103/57 (72) 97 07/16/19 15:00 89 27 107/58 (74) 94 07/16/19 15:00 107/58 07/16/19 14:53 107/58 07/16/19 14:45 82 31 98/48 (65) 94 07/16/19 14:30 83 28 104/53 (70) 96 07/16/19 14:25 80 27 89/47 (61) 97 07/16/19 14:21 78 20 86/46 (59) 97 07/16/19 14:21 86/46 07/16/19 14:15 81 29 91/45 (60) 96 07/16/19 14:00 87 31 105/47 (66) 95 07/16/19 14:00 91/45 07/16/19 13:30 84 30 114/44 (67) 96 07/16/19 13:00 83 30 94/50 (65) 95 07/16/19 13:00 92/47 07/16/19 12:30 81 31 73/48 (56) 93 07/16/19 12:00 2.0 07/16/19 12:00 98.3 84 26 103/49 (67) 95 07/16/19 12:00 Nasal Cannula 2.0 07/16/19 12:00 103/49 9/23/19 11:31 85 07/16/19 11:00 94/49 07/16/19 11:00 79 30 95/51 (66) 96 Height (Feet): 5 Height (Inches): 9.00 Weight (Pounds): 232 HEENT: mucous membranes moist, other - icterus Respiratory/Chest: lungs clear Cardiovascular: normal rate, other - PICC line & HD line Abdomen: distended, other - NG tube & Rectal tube Extremities: other - edema Neurologic/Psychiatric: disoriented Laboratory Tests Test 07/17/19 04:00 White Blood Count 45.0 K/UL (4.8-10.8) *H Red Blood Count 2.48 M/UL (4.70-6.10) L Hemoglobin 7.4 G/DL (14.2-18.0) L Hematocrit 23.5 % (42.0-52.0) L Mean Corpuscular Volume 95 FL (80-99) Mean Corpuscular Hemoglobin 29.7 PG (27.0-31.0) Mean Corpuscular Hemoglobin Concent 31.3 G/DL (32.0-36.0) L Red Cell Distribution Width 24.1 % (11.6-14.8) H Platelet Count 87 K/UL (150-450) L Mean Platelet Volume 9.4 FL (6.5-10.1) Neutrophils (%) (Auto) % (45.0-75.0) Lymphocytes (%) (Auto) % (20.0-45.0) Monocytes (%) (Auto) % (1.0-10.0) Eosinophils (%) (Auto) % (0.0-3.0) Basophils (%) (Auto) % (0.0-2.0) Differential Total Cells Counted 100 Neutrophils % (Manual) 77 % (45-75) H Lymphocytes % (Manual) 7 % (20-45) L Monocytes % (Manual) 7 % (1-10) Eosinophils % (Manual) 3 % (0-3) Basophils % (Manual) 0 % (0-2) Myelocytes % 2 % (0-0) H Band Neutrophils 4 % (0-8) Platelet Estimate Decreased L Platelet Morphology Normal Hypochromasia 1+ Anisocytosis 2+ Acanthocytes 2+ Schistocytes 1+ Prothrombin Time 25.4 SEC (9.30-11.50) H Prothromb Time International Ratio 2.5 (0.9-1.1) H Sodium Level 140 MMOL/L (136-145) Potassium Level 3.5 MMOL/L (3.5-5.1) Chloride Level 105 MMOL/L (98-107) Carbon Dioxide Level 10 MMOL/L (21-32) L Anion Gap 25 mmol/L (5-15) H Blood Urea Nitrogen 99 mg/dL (7-18) H Creatinine 11.3 MG/DL (0.55-1.30) H Estimat Glomerular Filtration Rate 5.1 mL/min (>60) Glucose Level 136 MG/DL (74-106) H Calcium Level 7.0 MG/DL (8.5-10.1) L Total Bilirubin 34.8 MG/DL (0.2-1.0) H Direct Bilirubin 27.1 MG/DL (0.0-0.3) H Aspartate Amino Transf (AST/SGOT) 187 U/L (15-37) H Alanine Aminotransferase (ALT/SGPT) 11 U/L (12-78) L Alkaline Phosphatase 298 U/L (46-116) H Ammonia 151 umol/L (11-32) H Total Protein 4.8 G/DL (6.4-8.2) L Albumin 1.5 G/DL (3.4-5.0) L Globulin 3.3 g/dL Albumin/Globulin Ratio 0.5 (1.0-2.7) L Current Medications Medications (Trade) Dose Ordered Sig/Gabriela Route PRN Reason Start Time Stop Time Status Last Admin Dose Admin Cefepime HCl 1 gm/ Dextrose 55 ml @ 110 mls/hr Q24H IVPB 07/13/19 08:00 07/20/19 07:59 07/17/19 08:57 Chlorhexidine Gluconate (Emilie-Hex 2%) 1 applic DAILY@2000 TOPIC 06/26/19 20:00 07/26/19 19:59 07/16/19 20:35 Dextrose/Sodium Chloride 1,000 ml @ 40 mls/hr Q24H IV 07/13/19 12:45 08/12/19 12:44 07/17/19 04:44 Dopamine HCl/ Dextrose 250 ml @ 0 mls/hr Q24H IV 06/30/19 14:53 07/30/19 14:52 07/13/19 19:25 Epoetin Michael (Epoetin Michael(ESRD on dialysis)) 2,000 unit TUE- SUBQ 07/02/19 21:00 08/01/19 20:59 07/16/19 20:37 Epoetin Michael (Epoetin Michael(ESRD on dialysis)) 3,000 unit SUBQ 07/02/19 21:00 08/01/19 20:59 07/16/19 20:36 Lactulose (Cephulac) 30 gm FOUR TIMES A DAY NG 07/01/19 09:00 07/20/19 12:59 07/17/19 08:56 Multivitamins (Multivitamins) 1 tab DAILY ORAL 07/10/19 09:00 08/09/19 08:59 07/17/19 08:56 Norepinephrine Bitartrate 8 mg/ Dextrose 558 ml @ 0 mls/hr Q24H IV 07/12/19 21:30 08/11/19 21:29 07/17/19 10:29 Octreotide Acetate 500 mcg/ Sodium Chloride 500 ml @ 50 mls/hr Q10H IV 07/16/19 13:00 08/15/19 12:59 07/17/19 10:31 Pantoprazole (Protonix) 40 mg EVERY 12 HOURS IVP 07/13/19 10:00 08/12/19 09:59 07/17/19 08:56 Thiamine HCl (Vitamin B1) 100 mg DAILY ORAL 07/10/19 09:00 08/09/19 08:59 07/17/19 08:56 Ilia Chakraborty MD Jul 17, 2019 10:54
--- NOTE | 2019-07-17 11:13 | General Progress Note ---
Assessment/Plan Problem List: (1) Pancreatitis, alcoholic, acute ICD Codes: K85.20 - Alcohol induced acute pancreatitis without necrosis or infection SNOMED: 607200865, 7151347 Qualifiers: Qualified Codes: K85.20 - Alcohol induced acute pancreatitis without necrosis or infection (2) Acute alcoholic intoxication ICD Codes: F10.929 - Alcohol use, unspecified with intoxication, unspecified SNOMED: 70472553, 4925136 Qualifiers: Qualified Codes: F10.920 - Alcohol use, unspecified with intoxication, uncomplicated (3) Anemia ICD Codes: D64.9 - Anemia, unspecified SNOMED: 947992956 Qualifiers: Qualified Codes: D64.9 - Anemia, unspecified Status: stable, progressing, deteriorating Assessment/Plan: NGTF>> on hold start octreotide protonix transfuse one unit FFP EGD on hold patient not stable repeat labs fu nephrology cont lactulose xifaxan prn paracentesis>> repeated 800 cc last one poor prognosis recommend comfort care Subjective ROS Limited/Unobtainable: No Allergies: Coded Allergies: No Known Allergies (Unverified , 06/20/19) Objective Last 24 Hour Vital Signs Date Time Temp Pulse Resp B/P (MAP) Pulse Ox O2 Delivery O2 Flow Rate FiO2 07/17/19 10:29 106/49 07/17/19 10:00 83 27 107/41 (63) 95 07/17/19 09:00 86 27 97/37 (57) 95 07/17/19 08:00 Nasal Cannula 2.0 07/17/19 08:00 98.8 83 27 104/41 (62) 98 07/17/19 08:00 2.0 07/17/19 07:27 96 Nasal Cannula 2.0 28 07/17/19 07:00 99/41 07/17/19 07:00 86 27 99/41 (60) 98 07/17/19 06:00 109/53 07/17/19 06:00 86 27 109/53 (71) 98 07/17/19 05:09 89 30 98 Full Face 30 07/17/19 05:00 86 27 112/52 (72) 98 07/17/19 05:00 112/57 07/17/19 04:36 95/51 07/17/19 04:30 82 26 95/51 (66) 96 07/17/19 04:00 30 07/17/19 04:00 95/47 07/17/19 04:00 83 07/17/19 04:00 83 27 103/51 (68) 97 07/17/19 04:00 Nasal Cannula 2.0 07/17/19 03:30 81 25 97/41 (59) 96 07/17/19 03:07 84 26 97 Full Face 30 07/17/19 03:00 80 28 94/42 (59) 96 07/17/19 03:00 95/37 07/17/19 02:30 82 27 100/41 (60) 96 07/17/19 02:00 84 28 88/46 (60) 97 07/17/19 02:00 109/38 07/17/19 01:30 82 31 82/41 (55) 96 07/17/19 01:06 89 35 98 Full Face 30 07/17/19 01:00 92 28 108/48 (68) 98 07/17/19 01:00 101/44 07/17/19 00:30 87 23 105/42 (63) 97 07/17/19 00:00 2.0 07/17/19 00:00 87 31 104/48 (66) 98 07/17/19 00:00 Nasal Cannula 2.0 07/17/19 00:00 99/43 07/17/19 00:00 86 07/16/19 23:00 82 22 106/41 (62) 98 07/16/19 22:42 80 32 98 Full Face 30 07/16/19 22:30 84 29 90/43 (59) 96 07/16/19 22:20 91/44 07/16/19 22:00 91/44 07/16/19 22:00 98.8 84 25 102/43 (62) 96 07/16/19 21:30 83 28 94/43 (60) 97 07/16/19 21:00 78 28 95/40 (58) 96 07/16/19 21:00 102/38 07/16/19 20:30 80 24 92/60 (71) 96 07/16/19 20:00 79 07/16/19 20:00 2.0 07/16/19 20:00 99/47 07/16/19 20:00 Nasal Cannula 2.0 07/16/19 20:00 80 27 98/45 (62) 97 07/16/19 19:29 100 Nasal Cannula 2.0 28 07/16/19 19:00 99/48 07/16/19 19:00 85 26 100/52 (68) 98 07/16/19 18:45 80 27 92/47 (62) 98 07/16/19 18:30 80 26 94/42 (59) 97 07/16/19 18:00 78 27 100/44 (62) 97 07/16/19 17:30 79 25 91/45 (60) 97 07/16/19 17:00 80 27 106/50 (68) 97 07/16/19 16:45 83 29 101/48 (65) 97 07/16/19 16:30 81 32 100/50 (67) 96 07/16/19 16:00 98.3 80 29 112/68 (83) 94 07/16/19 16:00 2.0 07/16/19 16:00 112/68 07/16/19 16:00 Nasal Cannula 2.0 07/16/19 15:59 112/68 07/16/19 15:45 79 24 112/68 (83) 95 07/16/19 15:31 79 07/16/19 15:30 80 26 100/45 (63) 96 07/16/19 15:15 85 27 103/57 (72) 97 07/16/19 15:00 89 27 107/58 (74) 94 07/16/19 15:00 107/58 07/16/19 14:53 107/58 07/16/19 14:45 82 31 98/48 (65) 94 07/16/19 14:30 83 28 104/53 (70) 96 07/16/19 14:25 80 27 89/47 (61) 97 07/16/19 14:21 78 20 86/46 (59) 97 07/16/19 14:21 86/46 07/16/19 14:15 81 29 91/45 (60) 96 07/16/19 14:00 87 31 105/47 (66) 95 07/16/19 14:00 91/45 07/16/19 13:30 84 30 114/44 (67) 96 07/16/19 13:00 83 30 94/50 (65) 95 07/16/19 13:00 92/47 07/16/19 12:30 81 31 73/48 (56) 93 07/16/19 12:00 2.0 07/16/19 12:00 98.3 84 26 103/49 (67) 95 07/16/19 12:00 Nasal Cannula 2.0 07/16/19 12:00 103/49 07/16/19 11:31 85 Intake and Output 07/16/19 07/17/19 19:00 07:00 Intake Total 1701.821 ml 2596.91 ml Output Total 550 ml 300 ml Balance 1151.821 ml 2296.91 ml IV Total 1561.821 ml 2276.91 ml Tube Feeding 60 ml 260 ml Other 80 ml 60 ml Output Urine Total 0 ml 0 ml Stool Total 550 ml 300 ml Laboratory Tests 07/17/19 04:00: White Blood Count 45.0*H, Red Blood Count 2.48L, Hemoglobin 7.4L, Hematocrit 23.5L, Mean Corpuscular Volume 95, Mean Corpuscular Hemoglobin 29.7, Mean Corpuscular Hemoglobin Concent 31.3L, Red Cell Distribution Width 24.1H, Platelet Count 87L, Mean Platelet Volume 9.4, Neutrophils (%) (Auto) , Lymphocytes (%) (Auto) , Monocytes (%) (Auto) , Eosinophils (%) (Auto) , Basophils (%) (Auto) , Differential Total Cells Counted 100, Neutrophils % ( Manual) 77H, Lymphocytes % (Manual) 7L, Monocytes % (Manual) 7, Eosinophils % ( Manual) 3, Basophils % (Manual) 0, Myelocytes % 2H, Band Neutrophils 4, Platelet Estimate DecreasedL, Platelet Morphology Normal, Hypochromasia 1+, Anisocytosis 2+, Acanthocytes 2+, Schistocytes 1+, Prothrombin Time 25.4H, Prothromb Time International Ratio 2.5H, Sodium Level 140, Potassium Level 3.5, Chloride Level 105, Carbon Dioxide Level 10L, Anion Gap 25H, Blood Urea Nitrogen 99H, Creatinine 11.3H, Estimat Glomerular Filtration Rate 5.1, Glucose Level 136H, Calcium Level 7.0L, Total Bilirubin 34.8H, Direct Bilirubin 27.1H, Aspartate Amino Transf (AST/SGOT) 187H, Alanine Aminotransferase (ALT/SGPT) 11L , Alkaline Phosphatase 298H, Ammonia 151H, Total Protein 4.8L, Albumin 1.5L, Globulin 3.3, Albumin/Globulin Ratio 0.5L Height (Feet): 5 Height (Inches): 9.00 Weight (Pounds): 232 General Appearance: lethargic EENT: scleral icterus Neck: supple Cardiovascular: tachycardia Respiratory/Chest: decreased breath sounds Abdomen: soft, decreased bowel sounds, distended Extremities: non-tender Merlin Esposito MD Jul 17, 2019 11:13
--- NOTE | 2019-07-17 11:18 | Cardiac Electrophysiology PN ---
Assessment/Plan Assessment/Plan 1. Sinus tach due to alcohol withdrawal and hepatic encephalopathy. No SVT or atrial fibrillation. EF 55% 2. Cirrhosis. On Lactulose . S/P paracentesis 3. Septic/ hemorrhagic shock on Levophed and iv abx 4. Hepatorenal syndrome. Dario Jaramillo. S/P Carrillo Catheter and prn HD 5. Hypokalemia. 6. Alcohol intoxication. Thiamine, folate, and Librium. 7. Hepatic encephalopathy 8. Gi bleed. DARIO BEAUCHAMP RN Subjective Subjective In ICU Lethargic on BIPAP at nights. No arrhythmias. On 26 mcg of Levophed and having upper and lower gi bleed despite Octreotide drip Objective Last 24 Hour Vital Signs Date Time Temp Pulse Resp B/P (MAP) Pulse Ox O2 Delivery O2 Flow Rate FiO2 07/17/19 10:29 106/49 07/17/19 10:00 83 27 107/41 (63) 95 07/17/19 09:00 86 27 97/37 (57) 95 07/17/19 08:00 Nasal Cannula 2.0 07/17/19 08:00 98.8 83 27 104/41 (62) 98 07/17/19 08:00 2.0 07/17/19 07:27 96 Nasal Cannula 2.0 28 07/17/19 07:00 99/41 07/17/19 07:00 86 27 99/41 (60) 98 07/17/19 06:00 109/53 07/17/19 06:00 86 27 109/53 (71) 98 07/17/19 05:09 89 30 98 Full Face 30 07/17/19 05:00 86 27 112/52 (72) 98 07/17/19 05:00 112/57 07/17/19 04:36 95/51 07/17/19 04:30 82 26 95/51 (66) 96 07/17/19 04:00 30 07/17/19 04:00 95/47 07/17/19 04:00 83 07/17/19 04:00 83 27 103/51 (68) 97 07/17/19 04:00 Nasal Cannula 2.0 07/17/19 03:30 81 25 97/41 (59) 96 07/17/19 03:07 84 26 97 Full Face 30 07/17/19 03:00 80 28 94/42 (59) 96 07/17/19 03:00 95/37 07/17/19 02:30 82 27 100/41 (60) 96 07/17/19 02:00 84 28 88/46 (60) 97 07/17/19 02:00 109/38 07/17/19 01:30 82 31 82/41 (55) 96 07/17/19 01:06 89 35 98 Full Face 30 07/17/19 01:00 92 28 108/48 (68) 98 07/17/19 01:00 101/44 07/17/19 00:30 87 23 105/42 (63) 97 07/17/19 00:00 2.0 07/17/19 00:00 87 31 104/48 (66) 98 07/17/19 00:00 Nasal Cannula 2.0 07/17/19 00:00 99/43 07/17/19 00:00 86 07/16/19 23:00 82 22 106/41 (62) 98 07/16/19 22:42 80 32 98 Full Face 30 07/16/19 22:30 84 29 90/43 (59) 96 07/16/19 22:20 91/44 07/16/19 22:00 91/44 07/16/19 22:00 98.8 84 25 102/43 (62) 96 07/16/19 21:30 83 28 94/43 (60) 97 07/16/19 21:00 78 28 95/40 (58) 96 07/16/19 21:00 102/38 07/16/19 20:30 80 24 92/60 (71) 96 07/16/19 20:00 79 07/16/19 20:00 2.0 07/16/19 20:00 99/47 07/16/19 20:00 Nasal Cannula 2.0 07/16/19 20:00 80 27 98/45 (62) 97 07/16/19 19:29 100 Nasal Cannula 2.0 28 07/16/19 19:00 99/48 07/16/19 19:00 85 26 100/52 (68) 98 07/16/19 18:45 80 27 92/47 (62) 98 07/16/19 18:30 80 26 94/42 (59) 97 07/16/19 18:00 78 27 100/44 (62) 97 07/16/19 17:30 79 25 91/45 (60) 97 07/16/19 17:00 80 27 106/50 (68) 97 07/16/19 16:45 83 29 101/48 (65) 97 07/16/19 16:30 81 32 100/50 (67) 96 07/16/19 16:00 98.3 80 29 112/68 (83) 94 07/16/19 16:00 2.0 07/16/19 16:00 112/68 07/16/19 16:00 Nasal Cannula 2.0 07/16/19 15:59 112/68 07/16/19 15:45 79 24 112/68 (83) 95 07/16/19 15:31 79 07/16/19 15:30 80 26 100/45 (63) 96 07/16/19 15:15 85 27 103/57 (72) 97 07/16/19 15:00 89 27 107/58 (74) 94 07/16/19 15:00 107/58 07/16/19 14:53 107/58 07/16/19 14:45 82 31 98/48 (65) 94 07/16/19 14:30 83 28 104/53 (70) 96 07/16/19 14:25 80 27 89/47 (61) 97 07/16/19 14:21 78 20 86/46 (59) 97 07/16/19 14:21 86/46 07/16/19 14:15 81 29 91/45 (60) 96 07/16/19 14:00 87 31 105/47 (66) 95 07/16/19 14:00 91/45 07/16/19 13:30 84 30 114/44 (67) 96 07/16/19 13:00 83 30 94/50 (65) 95 07/16/19 13:00 92/47 07/16/19 12:30 81 31 73/48 (56) 93 07/16/19 12:00 2.0 07/16/19 12:00 98.3 84 26 103/49 (67) 95 07/16/19 12:00 Nasal Cannula 2.0 07/16/19 12:00 103/49 07/16/19 11:31 85 Intake and Output 07/16/19 07/17/19 19:00 07:00 Intake Total 1701.821 ml 2596.91 ml Output Total 550 ml 300 ml Balance 1151.821 ml 2296.91 ml IV Total 1561.821 ml 2276.91 ml Tube Feeding 60 ml 260 ml Other 80 ml 60 ml Output Urine Total 0 ml 0 ml Stool Total 550 ml 300 ml Laboratory Tests Test 07/17/19 04:00 White Blood Count 45.0 K/UL (4.8-10.8) *H Red Blood Count 2.48 M/UL (4.70-6.10) L Hemoglobin 7.4 G/DL (14.2-18.0) L Hematocrit 23.5 % (42.0-52.0) L Mean Corpuscular Volume 95 FL (80-99) Mean Corpuscular Hemoglobin 29.7 PG (27.0-31.0) Mean Corpuscular Hemoglobin Concent 31.3 G/DL (32.0-36.0) L Red Cell Distribution Width 24.1 % (11.6-14.8) H Platelet Count 87 K/UL (150-450) L Mean Platelet Volume 9.4 FL (6.5-10.1) Neutrophils (%) (Auto) % (45.0-75.0) Lymphocytes (%) (Auto) % (20.0-45.0) Monocytes (%) (Auto) % (1.0-10.0) Eosinophils (%) (Auto) % (0.0-3.0) Basophils (%) (Auto) % (0.0-2.0) Differential Total Cells Counted 100 Neutrophils % (Manual) 77 % (45-75) H Lymphocytes % (Manual) 7 % (20-45) L Monocytes % (Manual) 7 % (1-10) Eosinophils % (Manual) 3 % (0-3) Basophils % (Manual) 0 % (0-2) Myelocytes % 2 % (0-0) H Band Neutrophils 4 % (0-8) Platelet Estimate Decreased L Platelet Morphology Normal Hypochromasia 1+ Anisocytosis 2+ Acanthocytes 2+ Schistocytes 1+ Prothrombin Time 25.4 SEC (9.30-11.50) H Prothromb Time International Ratio 2.5 (0.9-1.1) H Sodium Level 140 MMOL/L (136-145) Potassium Level 3.5 MMOL/L (3.5-5.1) Chloride Level 105 MMOL/L (98-107) Carbon Dioxide Level 10 MMOL/L (21-32) L Anion Gap 25 mmol/L (5-15) H Blood Urea Nitrogen 99 mg/dL (7-18) H Creatinine 11.3 MG/DL (0.55-1.30) H Estimat Glomerular Filtration Rate 5.1 mL/min (>60) Glucose Level 136 MG/DL (74-106) H Calcium Level 7.0 MG/DL (8.5-10.1) L Total Bilirubin 34.8 MG/DL (0.2-1.0) H Direct Bilirubin 27.1 MG/DL (0.0-0.3) H Aspartate Amino Transf (AST/SGOT) 187 U/L (15-37) H Alanine Aminotransferase (ALT/SGPT) 11 U/L (12-78) L Alkaline Phosphatase 298 U/L (46-116) H Ammonia 151 umol/L (11-32) H Total Protein 4.8 G/DL (6.4-8.2) L Albumin 1.5 G/DL (3.4-5.0) L Globulin 3.3 g/dL Albumin/Globulin Ratio 0.5 (1.0-2.7) L Objective HEAD AND NECK: No JVD. Sclera is icteric. R IJ Perm Cath. NG tube is in LUNGS: Decreased breath sounds. CARDIOVASCULAR: Tachy S1 and S2 with no gallop. ABDOMEN: Distended with ascites. EXTREMITIES: 2+ pitting edema. Felice Smith MD Jul 17, 2019 11:18
--- NOTE | 2019-07-17 13:20 | Nephrology Progress Note ---
Assessment/Plan Problem List: (1) End-stage liver disease (2) Hepatorenal syndrome (3) Pancreatitis, alcoholic, acute (4) Acute alcoholic intoxication (5) Anemia (6) Respiratory failure (7) Hypernatremia Assessment Acute alcoholic intoxication End-stage liver disease Hepatorenal syndrome Pancreatitis, alcoholic, acute Anemia Plan Hypotensive- on pressors not tolerated dialysis last time due to low BP 07/13 K supplement as needed poor prognosis I CONSIDER TREATMENT OF THIS PATIENT TO BE FUTILE correct low K per orders on 06/28/19 met with Brother- Liliana Reyes Cook Chief Brother will discuss with family regarding DNR and comfort care Subjective ROS Limited/Unobtainable: Yes Objective Objective Last 24 Hour Vital Signs Date Time Temp Pulse Resp B/P (MAP) Pulse Ox O2 Delivery O2 Flow Rate FiO2 07/17/19 12:00 2.0 07/17/19 12:00 97/47 07/17/19 12:00 85 07/17/19 12:00 Nasal Cannula 2.0 07/17/19 12:00 98.9 85 27 97/47 (64) 95 07/17/19 11:00 96/54 07/17/19 11:00 84 27 96/54 (68) 95 07/17/19 10:29 106/49 07/17/19 10:00 83 27 107/41 (63) 95 07/17/19 10:00 107/49 07/17/19 09:00 86 27 97/37 (57) 95 07/17/19 08:57 97/41 07/17/19 08:00 Nasal Cannula 2.0 07/17/19 08:00 86 07/17/19 08:00 104/43 07/17/19 08:00 98.8 83 27 104/41 (62) 98 07/17/19 08:00 2.0 07/17/19 07:27 96 Nasal Cannula 2.0 28 07/17/19 07:00 99/41 07/17/19 07:00 86 27 99/41 (60) 98 07/17/19 06:00 109/53 07/17/19 06:00 86 27 109/53 (71) 98 07/17/19 05:09 89 30 98 Full Face 30 07/17/19 05:00 86 27 112/52 (72) 98 07/17/19 05:00 112/57 07/17/19 04:36 95/51 07/17/19 04:30 82 26 95/51 (66) 96 07/17/19 04:00 30 07/17/19 04:00 95/47 07/17/19 04:00 83 07/17/19 04:00 83 27 103/51 (68) 97 07/17/19 04:00 Nasal Cannula 2.0 07/17/19 03:30 81 25 97/41 (59) 96 07/17/19 03:07 84 26 97 Full Face 30 07/17/19 03:00 80 28 94/42 (59) 96 07/17/19 03:00 95/37 07/17/19 02:30 82 27 100/41 (60) 96 07/17/19 02:00 84 28 88/46 (60) 97 07/17/19 02:00 109/38 07/17/19 01:30 82 31 82/41 (55) 96 07/17/19 01:06 89 35 98 Full Face 30 07/17/19 01:00 92 28 108/48 (68) 98 07/17/19 01:00 101/44 07/17/19 00:30 87 23 105/42 (63) 97 07/17/19 00:00 2.0 07/17/19 00:00 87 31 104/48 (66) 98 07/17/19 00:00 Nasal Cannula 2.0 07/17/19 00:00 99/43 07/17/19 00:00 86 07/16/19 23:00 82 22 106/41 (62) 98 07/16/19 22:42 80 32 98 Full Face 30 07/16/19 22:30 84 29 90/43 (59) 96 07/16/19 22:20 91/44 07/16/19 22:00 91/44 07/16/19 22:00 98.8 84 25 102/43 (62) 96 07/16/19 21:30 83 28 94/43 (60) 97 07/16/19 21:00 78 28 95/40 (58) 96 07/16/19 21:00 102/38 07/16/19 20:30 80 24 92/60 (71) 96 9/23/19 20:00 79 07/16/19 20:00 2.0 07/16/19 20:00 99/47 07/16/19 20:00 Nasal Cannula 2.0 07/16/19 20:00 80 27 98/45 (62) 97 07/16/19 19:29 100 Nasal Cannula 2.0 28 07/16/19 19:00 99/48 07/16/19 19:00 85 26 100/52 (68) 98 07/16/19 18:45 80 27 92/47 (62) 98 07/16/19 18:30 80 26 94/42 (59) 97 07/16/19 18:00 78 27 100/44 (62) 97 07/16/19 17:30 79 25 91/45 (60) 97 07/16/19 17:00 80 27 106/50 (68) 97 07/16/19 16:45 83 29 101/48 (65) 97 07/16/19 16:30 81 32 100/50 (67) 96 07/16/19 16:00 98.3 80 29 112/68 (83) 94 07/16/19 16:00 2.0 07/16/19 16:00 112/68 07/16/19 16:00 Nasal Cannula 2.0 07/16/19 15:59 112/68 07/16/19 15:45 79 24 112/68 (83) 95 07/16/19 15:31 79 07/16/19 15:30 80 26 100/45 (63) 96 07/16/19 15:15 85 27 103/57 (72) 97 07/16/19 15:00 89 27 107/58 (74) 94 07/16/19 15:00 107/58 07/16/19 14:53 107/58 07/16/19 14:45 82 31 98/48 (65) 94 07/16/19 14:30 83 28 104/53 (70) 96 07/16/19 14:25 80 27 89/47 (61) 97 07/16/19 14:21 78 20 86/46 (59) 97 07/16/19 14:21 86/46 07/16/19 14:15 81 29 91/45 (60) 96 07/16/19 14:00 87 31 105/47 (66) 95 07/16/19 14:00 91/45 9/23/19 13:30 84 30 114/44 (67) 96 Intake and Output 07/16/19 07/17/19 19:00 07:00 Intake Total 1701.821 ml 2596.91 ml Output Total 550 ml 300 ml Balance 1151.821 ml 2296.91 ml IV Total 1561.821 ml 2276.91 ml Tube Feeding 60 ml 260 ml Other 80 ml 60 ml Output Urine Total 0 ml 0 ml Stool Total 550 ml 300 ml Laboratory Tests 07/17/19 04:00: White Blood Count 45.0*H, Red Blood Count 2.48L, Hemoglobin 7.4L, Hematocrit 23.5L, Mean Corpuscular Volume 95, Mean Corpuscular Hemoglobin 29.7, Mean Corpuscular Hemoglobin Concent 31.3L, Red Cell Distribution Width 24.1H, Platelet Count 87L, Mean Platelet Volume 9.4, Neutrophils (%) (Auto) , Lymphocytes (%) (Auto) , Monocytes (%) (Auto) , Eosinophils (%) (Auto) , Basophils (%) (Auto) , Differential Total Cells Counted 100, Neutrophils % ( Manual) 77H, Lymphocytes % (Manual) 7L, Monocytes % (Manual) 7, Eosinophils % ( Manual) 3, Basophils % (Manual) 0, Myelocytes % 2H, Band Neutrophils 4, Platelet Estimate DecreasedL, Platelet Morphology Normal, Hypochromasia 1+, Anisocytosis 2+, Acanthocytes 2+, Schistocytes 1+, Prothrombin Time 25.4H, Prothromb Time International Ratio 2.5H, Sodium Level 140, Potassium Level 3.5, Chloride Level 105, Carbon Dioxide Level 10L, Anion Gap 25H, Blood Urea Nitrogen 99H, Creatinine 11.3H, Estimat Glomerular Filtration Rate 5.1, Glucose Level 136H, Calcium Level 7.0L, Total Bilirubin 34.8H, Direct Bilirubin 27.1H, Aspartate Amino Transf (AST/SGOT) 187H, Alanine Aminotransferase (ALT/SGPT) 11L , Alkaline Phosphatase 298H, Ammonia 151H, Total Protein 4.8L, Albumin 1.5L, Globulin 3.3, Albumin/Globulin Ratio 0.5L Height (Feet): 5 Height (Inches): 9.00 Weight (Pounds): 232 General Appearance: confused, mild distress Cardiovascular: tachycardia Respiratory/Chest: decreased breath sounds Abdomen: hypoactive bowel sounds, distended Arthur Lay MD Jul 17, 2019 13:20
--- NOTE | 2019-07-17 13:40 | Hematology/Onc Progress Note ---
Assessment/Plan Assessment/Plan Assessment and Recs: # Thrombocytopenia - potential causes multifactorial, does have a history of etoh abuse, cirrhosis of the liver, hepatosplenomegaly, portal HTN, coagulopathy noted as well, likely oscillatory pattern can be due to abx as well. Hep panel and HIV ordered (NEG) --> US abd does show, portal htn and cirrhosis ++ --> Peripheral smear ordered to evaluate for blasts /schistocytes reviewed and is negative --> abx and other meds have been reviewed --> ok for ppx if plt >50k w/ either heparin or lovenox --> Transfuse if Plt < 20k and fever, or if Plt < 10k without fever --> plt trend 80-->97-->117-->157k->216k-->107k-->72k-->68k-->109k-->108k-->148k -->176k-->182k->141k-->128k-->148k-->152-->82k->87k --> ffp tx: 07/13 # Anemia of chronic disease due to underlying chronic medical issues, multifactorial (myelosuprresion noted) --> Anemia workup has been reviewed, ferritin 297 --> EPOGEN HAS BEEN ORDERED WITH HD --> Hgb goal >7. Transfuse prn. --> Medications have been reviewed --> low threshold for gi evaluation in case has occult + --> hgb trend: 7.7-->8.2-->9->8.4-->8.3-->8.2-->8-->7.4->7.3-->7.7-->7.8-->7.6-- >8.1->7.5-->7.8-->7.5-->7.4 --> serum electrophoresis shows no m-spike 06/27 --> cont thiamine --> blood tx: 2 units 07/13 # Coagulopathy due to cirrhosis --> give Vitk as needed # Leukocytosis with sepsis is on abx --> ID following, appreciate recs --> wbc trend: 17k-->13.9-->19.5-->18.7-->27.4-->33.6->32--->33-->30-->34-->44.1 -->44k-->45k --> FLAGYL and CTX-> vanc/amish-->cefe # Acute alcoholic intoxication --> etoh abuse history --> thiamine, folic acid, ivf # End-stage liver disease --> Hepatorenal syndrome r/o with renal, albumin prn # Pancreatitis, alcoholic, acute # Tachycardia # ESRD --> on hd as per renal # Dvt ppx with scds given low plts # POOR PROGNOSIS The timing of this note does not necessarily reflect the time of the patient was seen. GREATLY APPRECIATE CONSULTATION. Subjective Constitutional: Denies: no symptoms, chills, fever, malaise, weakness, other HEENT: Denies: no symptoms, eye pain, blurred vision, tearing, double vision, ear pain, ear discharge, nose pain, nose congestion, throat pain, throat swelling, mouth pain, mouth swelling, other Cardiovascular: Denies: no symptoms, chest pain, edema, irregular heart rate, lightheadedness, palpitations, syncope, other Respiratory: Denies: no symptoms, cough, shortness of breath, SOB with excertion, SOB at rest, sputum, wheezing, other Gastrointestinal/Abdominal: Denies: no symptoms, abdomen distended, abdominal pain, black stools, tarry stools, blood in stool, constipated, diarrhea, difficulty swallowing, nausea, poor appetite, poor fluid intake, rectal bleeding , vomiting, other Genitourinary: Denies: no symptoms, burning, discharge, frequency, flank pain, hematuria, incontinence, pain, urgency, other Neurologic/Psychiatric: Denies: no symptoms, anxiety, depressed, emotional problems, headache, numbness, paresthesia, pre-existing deficit, seizure, tingling, tremors, weakness, other Allergies: Coded Allergies: No Known Allergies (Unverified , 06/20/19) Subjective 06/21: low k, ferritin 297, h/h stable, afebrile, blood transfused 06/22: in icu, on restraints, labs reviewed, no f/c, imaging reviewed 06/23: pain meds given, remains in icu, again in restraints, bili higher, inr as well, given vitk 06/25: no fevers, no chills, no bleeding, confused in bed in icu 06/26: no events to report, no bleeding, remains in icu, ++ bipap 06/27: icu,s/p paracentesis yesterday, off pressors, h/h stable 06/28: on ctx/flagyl, remains confused, no bleeding, plt is lower 06/29: no f/c, on abx, no acute events, no distress, labs reviewed 06/30: remains in the icu, on abx, no f/c, scds+ 07/02: remains in the icu, no fevers or chills, prbc ordered, as well as epo 07/03: remains in the icu, on restraints, on abx, labs noted, vs stable, no acute events 07/04: dw team and agree patient with very poor prognosis, pending bioethics consult 07/05: remains in icu, very poor prognosis, labs noted wbc 27.4, off bipap receiving repiratory tx 07/06: remains icu, very poor prognosis, wbc 33.6 trending up, no f/c, vs stable , on bipap, paracentesis pending 07/08: remains in the icu, labs look worse, though repsonding better this am, able to raise hands 07/09: no events, hd was done, no events, labs noted, no bleeding 07/10: remains borderline in re to mental status, no f/c, no bleeding in the icu 07/11: no events to report, is on lactulose, xiafan, para ordered 07/12: a+o x 1, no bleeding, chills, night sweats, no major changes 07/13: hgb 6.4, 2 units prbc ordered, on pressors, hd for today, remains ill looking 07/14: no bleeding or chills, no night sweats, wbc is 45k, on abx, on cefepime 07/16: no f/c, wbc is 44k, hgb 7.5, plt 82k, on abx-->cefepime, confused 07/17: no events, no bleeding to report, no major changes, no fevers Objective Objective Current Medications Medications (Trade) Dose Ordered Sig/Gabriela Route PRN Reason Start Time Stop Time Status Last Admin Dose Admin Cefepime HCl 1 gm/ Dextrose 55 ml @ 110 mls/hr Q24H IVPB 07/13/19 08:00 07/20/19 07:59 07/17/19 08:57 Chlorhexidine Gluconate (Emilie-Hex 2%) 1 applic DAILY@2000 TOPIC 06/26/19 20:00 07/26/19 19:59 07/16/19 20:35 Dextrose/Sodium Chloride 1,000 ml @ 40 mls/hr Q24H IV 07/13/19 12:45 08/12/19 12:44 07/17/19 04:44 Dopamine HCl/ Dextrose 250 ml @ 0 mls/hr Q24H IV 06/30/19 14:53 07/30/19 14:52 07/13/19 19:25 Epoetin Michael (Epoetin Michael(ESRD on dialysis)) 2,000 unit TUE-TUE-TUE SUBQ 07/02/19 21:00 08/01/19 20:59 07/16/19 20:37 Epoetin Michael (Epoetin Michael(ESRD on dialysis)) 3,000 unit TUE- SUBQ 07/02/19 21:00 08/01/19 20:59 07/16/19 20:36 Lactulose (Cephulac) 30 gm FOUR TIMES A DAY NG 07/01/19 09:00 07/20/19 12:59 07/17/19 08:56 Multivitamins (Multivitamins) 1 tab DAILY ORAL 07/10/19 09:00 08/09/19 08:59 07/17/19 08:56 Norepinephrine Bitartrate 8 mg/ Dextrose 558 ml @ 0 mls/hr Q24H IV 07/12/19 21:30 08/11/19 21:29 07/17/19 10:29 Octreotide Acetate 500 mcg/ Sodium Chloride 500 ml @ 50 mls/hr Q10H IV 07/16/19 13:00 08/15/19 12:59 07/17/19 10:31 Pantoprazole (Protonix) 40 mg EVERY 12 HOURS IVP 07/13/19 10:00 08/12/19 09:59 07/17/19 08:56 Thiamine HCl (Vitamin B1) 100 mg DAILY ORAL 9/17/19 09:00 08/09/19 08:59 07/17/19 08:56 Last 24 Hour Vital Signs Date Time Temp Pulse Resp B/P (MAP) Pulse Ox O2 Delivery O2 Flow Rate FiO2 07/17/19 13:00 81 26 110/43 (65) 94 07/17/19 12:00 2.0 07/17/19 12:00 97/47 07/17/19 12:00 85 07/17/19 12:00 Nasal Cannula 2.0 07/17/19 12:00 98.9 85 27 97/47 (64) 95 07/17/19 11:00 96/54 07/17/19 11:00 84 27 96/54 (68) 95 07/17/19 10:29 106/49 07/17/19 10:00 83 27 107/41 (63) 95 07/17/19 10:00 107/49 07/17/19 09:00 86 27 97/37 (57) 95 07/17/19 08:57 97/41 07/17/19 08:00 Nasal Cannula 2.0 07/17/19 08:00 86 07/17/19 08:00 104/43 07/17/19 08:00 98.8 83 27 104/41 (62) 98 07/17/19 08:00 2.0 07/17/19 07:27 96 Nasal Cannula 2.0 28 07/17/19 07:00 99/41 07/17/19 07:00 86 27 99/41 (60) 98 07/17/19 06:00 109/53 07/17/19 06:00 86 27 109/53 (71) 98 07/17/19 05:09 89 30 98 Full Face 30 07/17/19 05:00 86 27 112/52 (72) 98 07/17/19 05:00 112/57 07/17/19 04:36 95/51 07/17/19 04:30 82 26 95/51 (66) 96 07/17/19 04:00 30 07/17/19 04:00 95/47 07/17/19 04:00 83 07/17/19 04:00 83 27 103/51 (68) 97 07/17/19 04:00 Nasal Cannula 2.0 07/17/19 03:30 81 25 97/41 (59) 96 07/17/19 03:07 84 26 97 Full Face 30 07/17/19 03:00 80 28 94/42 (59) 96 07/17/19 03:00 95/37 07/17/19 02:30 82 27 100/41 (60) 96 07/17/19 02:00 84 28 88/46 (60) 97 07/17/19 02:00 109/38 07/17/19 01:30 82 31 82/41 (55) 96 07/17/19 01:06 89 35 98 Full Face 30 07/17/19 01:00 92 28 108/48 (68) 98 07/17/19 01:00 101/44 07/17/19 00:30 87 23 105/42 (63) 97 07/17/19 00:00 2.0 07/17/19 00:00 87 31 104/48 (66) 98 07/17/19 00:00 Nasal Cannula 2.0 07/17/19 00:00 99/43 07/17/19 00:00 86 07/16/19 23:00 82 22 106/41 (62) 98 07/16/19 22:42 80 32 98 Full Face 30 07/16/19 22:30 84 29 90/43 (59) 96 07/16/19 22:20 91/44 07/16/19 22:00 91/44 07/16/19 22:00 98.8 84 25 102/43 (62) 96 07/16/19 21:30 83 28 94/43 (60) 97 07/16/19 21:00 78 28 95/40 (58) 96 07/16/19 21:00 102/38 07/16/19 20:30 80 24 92/60 (71) 96 07/16/19 20:00 79 07/16/19 20:00 2.0 07/16/19 20:00 99/47 07/16/19 20:00 Nasal Cannula 2.0 07/16/19 20:00 80 27 98/45 (62) 97 07/16/19 19:29 100 Nasal Cannula 2.0 28 07/16/19 19:00 99/48 07/16/19 19:00 85 26 100/52 (68) 98 07/16/19 18:45 80 27 92/47 (62) 98 07/16/19 18:30 80 26 94/42 (59) 97 07/16/19 18:00 78 27 100/44 (62) 97 07/16/19 17:30 79 25 91/45 (60) 97 07/16/19 17:00 80 27 106/50 (68) 97 07/16/19 16:45 83 29 101/48 (65) 97 07/16/19 16:30 81 32 100/50 (67) 96 07/16/19 16:00 98.3 80 29 112/68 (83) 94 07/16/19 16:00 2.0 07/16/19 16:00 112/68 07/16/19 16:00 Nasal Cannula 2.0 07/16/19 15:59 112/68 07/16/19 15:45 79 24 112/68 (83) 95 07/16/19 15:31 79 07/16/19 15:30 80 26 100/45 (63) 96 07/16/19 15:15 85 27 103/57 (72) 97 07/16/19 15:00 89 27 107/58 (74) 94 07/16/19 15:00 107/58 07/16/19 14:53 107/58 07/16/19 14:45 82 31 98/48 (65) 94 07/16/19 14:30 83 28 104/53 (70) 96 07/16/19 14:25 80 27 89/47 (61) 97 07/16/19 14:21 78 20 86/46 (59) 97 07/16/19 14:21 86/46 07/16/19 14:15 81 29 91/45 (60) 96 07/16/19 14:00 87 31 105/47 (66) 95 07/16/19 14:00 91/45 07/16/19 13:30 84 30 114/44 (67) 96 07/16/19 13:00 83 30 94/50 (65) 95 07/16/19 13:00 92/47 07/16/19 12:30 81 31 73/48 (56) 93 07/16/19 12:00 2.0 07/16/19 12:00 98.3 84 26 103/49 (67) 95 07/16/19 12:00 Nasal Cannula 2.0 9/23/19 12:00 103/49 07/16/19 11:31 85 07/16/19 11:00 94/49 07/16/19 11:00 79 30 95/51 (66) 96 07/16/19 10:30 80 26 104/57 (73) 96 07/16/19 10:00 80 33 98/48 (65) 97 07/16/19 10:00 93/53 07/16/19 09:57 83/49 07/16/19 09:30 84 31 82/36 (51) 95 07/16/19 09:00 96/70 07/16/19 09:00 81 30 96/70 (79) 96 07/16/19 08:30 77 27 83/49 (60) 97 07/16/19 08:00 Nasal Cannula 2.0 07/16/19 08:00 2.0 07/16/19 08:00 97.7 79 23 93/51 (65) 97 07/16/19 07:32 76 07/16/19 07:30 78 25 101/48 (65) 96 07/16/19 07:00 76 23 95/47 (63) 97 07/16/19 06:51 98 Nasal Cannula 2.0 28 07/16/19 06:00 84 23 97/62 (74) 99 07/16/19 06:00 109/49 07/16/19 05:30 84 23 104/52 (69) 99 07/16/19 05:17 78 31 99 Full Face 30 07/16/19 05:00 100/51 07/16/19 05:00 75 22 103/43 (63) 100 07/16/19 04:30 76 27 99/56 (70) 100 07/16/19 04:00 98.7 77 24 104/54 (71) 100 07/16/19 04:00 73 07/16/19 04:00 103/51 07/16/19 04:00 30 07/16/19 04:00 Bi-pap 07/16/19 03:45 77 25 101/54 (70) 100 07/16/19 03:30 73 25 83/45 (58) 100 07/16/19 03:15 75 24 100/46 (64) 100 07/16/19 03:08 76 29 100 Full Face 30 07/16/19 03:00 83/45 07/16/19 03:00 77 24 98/52 (67) 100 07/16/19 02:32 91/44 07/16/19 02:30 78 23 91/44 (60) 100 07/16/19 02:00 86/49 07/16/19 02:00 77 26 101/54 (70) 100 07/16/19 01:30 75 27 98/68 (78) 07/16/19 01:00 95/58 07/16/19 01:00 76 24 100/47 (64) 07/16/19 00:57 88 34 100 Full Face 30 07/16/19 00:30 82 23 95/58 (70) 07/16/19 00:00 98.6 87 29 103/56 (72) 100 07/16/19 00:00 77 07/16/19 00:00 106/53 07/16/19 00:00 30 07/16/19 00:00 Bi-pap 07/15/19 23:30 78 27 103/54 (70) 100 07/15/19 23:00 78 25 105/49 (67) 100 07/15/19 22:56 79 36 100 Full Face 30 07/15/19 22:30 77 23 97/44 (61) 100 07/15/19 22:00 76 27 92/69 (77) 100 07/15/19 21:30 78 22 102/52 (69) 100 07/15/19 21:15 77 27 110/88 (95) 100 07/15/19 21:12 77 26 100 Full Face 30 07/15/19 21:00 77 28 93/49 (64) 100 07/15/19 20:45 73 22 93/57 (69) 100 07/15/19 20:30 79 27 101/66 (78) 100 07/15/19 20:15 78 26 104/50 (68) 100 07/15/19 20:00 77 07/15/19 20:00 Bi-pap 07/15/19 20:00 98.7 78 24 99/56 (70) 100 07/15/19 20:00 30 07/15/19 19:45 78 30 123/53 (76) 100 07/15/19 19:30 78 29 93/45 (61) 100 07/15/19 19:15 76 27 112/52 (72) 100 07/15/19 19:14 80 39 100 Full Face 30 07/15/19 19:14 100 Bi-Pap 30 07/15/19 19:13 97/53 07/15/19 19:00 76 26 97/53 (68) 100 07/15/19 18:00 79 27 98/55 (69) 100 07/15/19 17:00 77 28 103/49 (67) 100 07/15/19 16:00 Nasal Cannula 2.0 07/15/19 16:00 78 07/15/19 16:00 98.6 76 25 95/57 (70) 100 07/15/19 16:00 30 07/15/19 15:21 81 32 100 Facial 30 07/15/19 15:00 86 24 115/67 (83) 100 07/15/19 14:53 119/55 07/15/19 14:00 78 20 100/61 (74) 100 07/15/19 13:37 79 33 100 Facial 30 Intake and Output 07/16/19 07/17/19 18:59 06:59 Intake Total 1591.381 ml 2585.28 ml Output Total 550 ml 300 ml Balance 1041.381 ml 2285.28 ml IV Total 1461.381 ml 2285.28 ml Tube Feeding 50 ml 240 ml Other 80 ml 60 ml Output Urine Total 0 ml 0 ml Stool Total 550 ml 300 ml Labs Test 07/15/19 04:00 07/16/19 04:30 07/17/19 04:00 White Blood Count 41.2 K/UL (4.8-10.8) 44.0 K/UL (4.8-10.8) 45.0 K/UL (4.8-10.8) Red Blood Count 2.39 M/UL (4.70-6.10) 2.52 M/UL (4.70-6.10) 2.48 M/UL (4.70-6.10) Hemoglobin 7.2 G/DL (14.2-18.0) 7.5 G/DL (14.2-18.0) 7.4 G/DL (14.2-18.0) Hematocrit 22.3 % (42.0-52.0) 23.3 % (42.0-52.0) 23.5 % (42.0-52.0) Mean Corpuscular Volume 93 FL (80-99) 92 FL (80-99) 95 FL (80-99) Mean Corpuscular Hemoglobin 30.3 PG (27.0-31.0) 29.8 PG (27.0-31.0) 29.7 PG (27.0-31.0) Mean Corpuscular Hemoglobin Concent 32.6 G/DL (32.0-36.0) 32.3 G/DL (32.0-36.0) 31.3 G/DL (32.0-36.0) Red Cell Distribution Width 22.5 % (11.6-14.8) 22.9 % (11.6-14.8) 24.1 % (11.6-14.8) Platelet Count 102 K/UL (150-450) 82 K/UL (150-450) 87 K/UL (150-450) Mean Platelet Volume 10.7 FL (6.5-10.1) 6.8 FL (6.5-10.1) 9.4 FL (6.5-10.1) Neutrophils (%) (Auto) % (45.0-75.0) % (45.0-75.0) % (45.0-75.0) Lymphocytes (%) (Auto) % (20.0-45.0) % (20.0-45.0) % (20.0-45.0) Monocytes (%) (Auto) % (1.0-10.0) % (1.0-10.0) % (1.0-10.0) Eosinophils (%) (Auto) % (0.0-3.0) % (0.0-3.0) % (0.0-3.0) Basophils (%) (Auto) % (0.0-2.0) % (0.0-2.0) % (0.0-2.0) Differential Total Cells Counted 100 100 100 Neutrophils % (Manual) 91 % (45-75) 81 % (45-75) 77 % (45-75) Lymphocytes % (Manual) 3 % (20-45) 6 % (20-45) 7 % (20-45) Monocytes % (Manual) 3 % (1-10) 5 % (1-10) 7 % (1-10) Eosinophils % (Manual) 1 % (0-3) 0 % (0-3) 3 % (0-3) Basophils % (Manual) 0 % (0-2) 0 % (0-2) 0 % (0-2) Band Neutrophils 2 % (0-8) 6 % (0-8) 4 % (0-8) Platelet Estimate Decreased Decreased Decreased Platelet Morphology Normal Normal Normal Hypochromasia 1+ 1+ Anisocytosis 2+ 3+ 2+ Sodium Level 146 MMOL/L (136-145) 144 MMOL/L (136-145) 140 MMOL/L (136-145) Potassium Level 2.8 MMOL/L (3.5-5.1) 3.0 MMOL/L (3.5-5.1) 3.5 MMOL/L (3.5-5.1) Chloride Level 110 MMOL/L (98-107) 109 MMOL/L (98-107) 105 MMOL/L (98-107) Carbon Dioxide Level 14 MMOL/L (21-32) 11 MMOL/L (21-32) 10 MMOL/L (21-32) Anion Gap 23 mmol/L (5-15) 24 mmol/L (5-15) 25 mmol/L (5-15) Blood Urea Nitrogen 87 mg/dL (7-18) 96 mg/dL (7-18) 99 mg/dL (7-18) Creatinine 10.1 MG/DL (0.55-1.30) 10.8 MG/DL (0.55-1.30) 11.3 MG/DL (0.55-1.30) Estimat Glomerular Filtration Rate 5.8 mL/min (>60) 5.3 mL/min (>60) 5.1 mL/min (>60) Glucose Level 132 MG/DL (74-106) 162 MG/DL (74-106) 136 MG/DL (74-106) Calcium Level 6.9 MG/DL (8.5-10.1) 7.1 MG/DL (8.5-10.1) 7.0 MG/DL (8.5-10.1) Total Bilirubin 35.5 MG/DL (0.2-1.0) 36.9 MG/DL (0.2-1.0) 34.8 MG/DL (0.2-1.0) Direct Bilirubin 28.2 MG/DL (0.0-0.3) 29.3 MG/DL (0.0-0.3) 27.1 MG/DL (0.0-0.3) Aspartate Amino Transf (AST/SGOT) 171 U/L (15-37) 147 U/L (15-37) 187 U/L (15-37) Alanine Aminotransferase (ALT/SGPT) 14 U/L (12-78) 8 U/L (12-78) 11 U/L (12-78) Alkaline Phosphatase 240 U/L (46-116) 277 U/L (46-116) 298 U/L (46-116) Total Protein 4.6 G/DL (6.4-8.2) 4.8 G/DL (6.4-8.2) 4.8 G/DL (6.4-8.2) Albumin 1.5 G/DL (3.4-5.0) 1.6 G/DL (3.4-5.0) 1.5 G/DL (3.4-5.0) Myelocytes % 2 % (0-0) 2 % (0-0) Polychromasia 1+ Schistocytes Occasional 1+ Acanthocytes 2+ Prothrombin Time 25.4 SEC (9.30-11.50) Prothromb Time International Ratio 2.5 (0.9-1.1) Ammonia 151 umol/L (11-32) Globulin 3.3 g/dL Albumin/Globulin Ratio 0.5 (1.0-2.7) Height (Feet): 5 Height (Inches): 9.00 Weight (Pounds): 232 Objective Physical Exam: Vitals: reviewed General Appearance: NAD HEENT: normocephalic, atraumatic ++ icterus jaundice, ng+ Neck: non-tender, normal alignment Respiratory/Chest: normal breath sounds bilaterally++ nc, BIPAP+ Cardiovascular/Chest: normal peripheral pulses, normal rate Abdomen: normal bowel sounds, soft,+ peg ++ ascites Extremities: normal range of motion Marty Kebede MD Jul 17, 2019 13:40
--- NOTE | 2019-07-17 14:11 | Diagnostic Imaging Report ---
Indication: Dyspnea Comparison: 07/13/2019 A single view chest radiograph was obtained. Findings: There is a right jugular catheter in good position. Cardiomegaly is present. Patchy infiltrates versus interstitial edema appears worse. IMPRESSION: Patchy infiltrates versus interstitial edema. Correlate clinically
[2019-07-17] MEDS: DOPamine 400mg/250ml 250 ML IV SCH (14:53)
[2019-07-17] MEDS ORDERED: NS 275ml ONE (14:56)
--- NOTE | 2019-07-17 15:31 | Surgery Progress Note ---
Surgery Progress Note Subjective Symptoms: other Objective Last 24 Hour Vital Signs Date Time Temp Pulse Resp B/P (MAP) Pulse Ox O2 Delivery O2 Flow Rate FiO2 07/17/19 15:00 30 07/17/19 15:00 81 21 97/41 (59) 99 07/17/19 14:35 81 26 110/43 (65) 94 07/17/19 14:00 90 23 98/57 (71) 96 07/17/19 14:00 109/50 07/17/19 13:00 81 26 110/43 (65) 94 07/17/19 13:00 110/43 07/17/19 12:00 2.0 07/17/19 12:00 97/47 07/17/19 12:00 85 07/17/19 12:00 Nasal Cannula 2.0 07/17/19 12:00 98.9 85 27 97/47 (64) 95 07/17/19 11:00 96/54 07/17/19 11:00 84 27 96/54 (68) 95 07/17/19 10:29 106/49 07/17/19 10:00 83 27 107/41 (63) 95 07/17/19 10:00 107/49 07/17/19 09:00 86 27 97/37 (57) 95 07/17/19 08:57 97/41 07/17/19 08:00 Nasal Cannula 2.0 07/17/19 08:00 86 07/17/19 08:00 104/43 07/17/19 08:00 98.8 83 27 104/41 (62) 98 07/17/19 08:00 2.0 07/17/19 07:27 96 Nasal Cannula 2.0 28 07/17/19 07:00 99/41 07/17/19 07:00 86 27 99/41 (60) 98 07/17/19 06:00 109/53 07/17/19 06:00 86 27 109/53 (71) 98 07/17/19 05:09 89 30 98 Full Face 30 07/17/19 05:00 86 27 112/52 (72) 98 07/17/19 05:00 112/57 07/17/19 04:36 95/51 07/17/19 04:30 82 26 95/51 (66) 96 9/24/19 04:00 30 07/17/19 04:00 95/47 07/17/19 04:00 83 07/17/19 04:00 83 27 103/51 (68) 97 07/17/19 04:00 Nasal Cannula 2.0 07/17/19 03:30 81 25 97/41 (59) 96 07/17/19 03:07 84 26 97 Full Face 30 07/17/19 03:00 80 28 94/42 (59) 96 07/17/19 03:00 95/37 07/17/19 02:30 82 27 100/41 (60) 96 07/17/19 02:00 84 28 88/46 (60) 97 07/17/19 02:00 109/38 07/17/19 01:30 82 31 82/41 (55) 96 07/17/19 01:06 89 35 98 Full Face 30 07/17/19 01:00 92 28 108/48 (68) 98 07/17/19 01:00 101/44 07/17/19 00:30 87 23 105/42 (63) 97 07/17/19 00:00 2.0 07/17/19 00:00 87 31 104/48 (66) 98 07/17/19 00:00 Nasal Cannula 2.0 07/17/19 00:00 99/43 07/17/19 00:00 86 07/16/19 23:00 82 22 106/41 (62) 98 07/16/19 22:42 80 32 98 Full Face 30 07/16/19 22:30 84 29 90/43 (59) 96 07/16/19 22:20 91/44 07/16/19 22:00 91/44 07/16/19 22:00 98.8 84 25 102/43 (62) 96 07/16/19 21:30 83 28 94/43 (60) 97 07/16/19 21:00 78 28 95/40 (58) 96 07/16/19 21:00 102/38 07/16/19 20:30 80 24 92/60 (71) 96 07/16/19 20:00 79 07/16/19 20:00 2.0 07/16/19 20:00 99/47 07/16/19 20:00 Nasal Cannula 2.0 07/16/19 20:00 80 27 98/45 (62) 97 07/16/19 19:29 100 Nasal Cannula 2.0 28 07/16/19 19:00 99/48 07/16/19 19:00 85 26 100/52 (68) 98 07/16/19 18:45 80 27 92/47 (62) 98 07/16/19 18:30 80 26 94/42 (59) 97 07/16/19 18:00 78 27 100/44 (62) 97 07/16/19 17:30 79 25 91/45 (60) 97 07/16/19 17:00 80 27 106/50 (68) 97 07/16/19 16:45 83 29 101/48 (65) 97 07/16/19 16:30 81 32 100/50 (67) 96 07/16/19 16:00 98.3 80 29 112/68 (83) 94 07/16/19 16:00 2.0 07/16/19 16:00 112/68 07/16/19 16:00 Nasal Cannula 2.0 07/16/19 15:59 112/68 07/16/19 15:45 79 24 112/68 (83) 95 I&O Intake and Output 07/16/19 07/17/19 19:00 07:00 Intake Total 1701.821 ml 2596.91 ml Output Total 550 ml 300 ml Balance 1151.821 ml 2296.91 ml IV Total 1561.821 ml 2276.91 ml Tube Feeding 60 ml 260 ml Other 80 ml 60 ml Output Urine Total 0 ml 0 ml Stool Total 550 ml 300 ml Dressing: dry Wound: clean Cardiovascular: RSR Respiratory: clear, decreased breath sounds Abdomen: soft, decreased bowel sounds Extremities: no cyanosis Laboratory Tests Test 07/17/19 04:00 White Blood Count 45.0 K/UL (4.8-10.8) *H Red Blood Count 2.48 M/UL (4.70-6.10) L Hemoglobin 7.4 G/DL (14.2-18.0) L Hematocrit 23.5 % (42.0-52.0) L Mean Corpuscular Volume 95 FL (80-99) Mean Corpuscular Hemoglobin 29.7 PG (27.0-31.0) Mean Corpuscular Hemoglobin Concent 31.3 G/DL (32.0-36.0) L Red Cell Distribution Width 24.1 % (11.6-14.8) H Platelet Count 87 K/UL (150-450) L Mean Platelet Volume 9.4 FL (6.5-10.1) Neutrophils (%) (Auto) % (45.0-75.0) Lymphocytes (%) (Auto) % (20.0-45.0) Monocytes (%) (Auto) % (1.0-10.0) Eosinophils (%) (Auto) % (0.0-3.0) Basophils (%) (Auto) % (0.0-2.0) Differential Total Cells Counted 100 Neutrophils % (Manual) 77 % (45-75) H Lymphocytes % (Manual) 7 % (20-45) L Monocytes % (Manual) 7 % (1-10) Eosinophils % (Manual) 3 % (0-3) Basophils % (Manual) 0 % (0-2) Myelocytes % 2 % (0-0) H Band Neutrophils 4 % (0-8) Platelet Estimate Decreased L Platelet Morphology Normal Hypochromasia 1+ Anisocytosis 2+ Acanthocytes 2+ Schistocytes 1+ Prothrombin Time 25.4 SEC (9.30-11.50) H Prothromb Time International Ratio 2.5 (0.9-1.1) H Sodium Level 140 MMOL/L (136-145) Potassium Level 3.5 MMOL/L (3.5-5.1) Chloride Level 105 MMOL/L (98-107) Carbon Dioxide Level 10 MMOL/L (21-32) L Anion Gap 25 mmol/L (5-15) H Blood Urea Nitrogen 99 mg/dL (7-18) H Creatinine 11.3 MG/DL (0.55-1.30) H Estimat Glomerular Filtration Rate 5.1 mL/min (>60) Glucose Level 136 MG/DL (74-106) H Calcium Level 7.0 MG/DL (8.5-10.1) L Total Bilirubin 34.8 MG/DL (0.2-1.0) H Direct Bilirubin 27.1 MG/DL (0.0-0.3) H Aspartate Amino Transf (AST/SGOT) 187 U/L (15-37) H Alanine Aminotransferase (ALT/SGPT) 11 U/L (12-78) L Alkaline Phosphatase 298 U/L (46-116) H Ammonia 151 umol/L (11-32) H Total Protein 4.8 G/DL (6.4-8.2) L Albumin 1.5 G/DL (3.4-5.0) L Globulin 3.3 g/dL Albumin/Globulin Ratio 0.5 (1.0-2.7) L Plan Problems: (1) Pancreatitis, alcoholic, acute Assessment & Plan: Acute alcoholic pancreatitis. Levels fluctuating. Plan to check levels tomorrow Treat medically and conservatively for now If worsening leukocytosis may consider CT scan (2) Hepatorenal syndrome Assessment & Plan: Chronic liver disease acute, with acute pancreatitis and potential about her renal syndrome as noted. Currently stable treat conservatively no acute surgical intervention recommended Unfortunately invasive techniques not available at this facility Continue with ICU care and management (3) Respiratory failure (4) skin intergrety Assessment & Plan: Pt noted to have dry eschar bridge of nose. Periwound without erythema or fluctuance. Shearing noted to R and L clefts of buttocks. No exudate noted. Both heels firm and blanchable. Tx.Plan: Swab bridge of nose with Benzoin Tincture Twice Daily. Apply Moisture Barrier Paste to buttocks with each perineal care. Apply Cavilon Skin Barrier to both heels. Cover each heel with Optifoam drsg. Change every 7 days and prn. APM/MATTHEW mattress overlay. Reposition at least every 2hours or as tolerated. Off-load heels with pillow. (5) End-stage liver disease Assessment & Plan: DAILY ESTIMATED NEEDS: Needs based on Liver dz, 79kg adj 25-30 kcals/kg 7164-5282 total kcals 1-1.5 (w/ HD 1.2-1.8) g protein/kg 79-119g (w/ HD 95-142g) g total protein Fluid per MD NUTRITION DIAGNOSIS: * Decreased sodium and fat needs r/t liver disease, cirrhosis, acute pancreatitis as evidenced by Abd US, elev T bili (33.5), pt is jaundiced, fatty liver, elev ammonia and AST, elev lipse (643), h/o etoh abuse, adm w/ elev serum alcohol. * Swallowing difficulty R/T confusion, dysphagia as evidenced by NGT feeding initiated, seen by HOME HEALTH CARE PHYSICIAN w/ rec to continue nonoral feeds at this time. CURRENT TF: NEPRO @45 + PS x1 PO DIET RECOMMENDATIONS: WHEN SAFE FOR ORAL FEEDING -> LOW NA/ LOW FAT (texture per HOME HEALTH CARE PHYSICIAN) ENTERAL NUTRITION RECOMMENDATIONS: MAINTAIN NEPRO W/ DIALYSIS TXT: Nepro @45ml/hr x24 hrs + PS x1 to provide 1080ml, 1944 kcal, 87g pro, 785ml free H20 * Maintain Nepro @45ml/hr as tolerated. * Add Prosource x1 pack daily to better meet est pro needs on HD * HOB over 30 degrees/ water flush per MD ADDITIONAL RECOMMENDATIONS: 1) Calibrated bedscale wt 2) Monitor for ability to start oral feeding 3) Check lytes daily 4) Rec to re-add thiamine + Folate daily, add MVI x 1 5) REC TF CHANGE TO NEPRO W/ DIALYSIS TXT 6) Monitor BGs closely, need for hypoglycemics (6) Acute alcoholic intoxication Kennedy Ellison Jul 17, 2019 15:31
[2019-07-17] MEDS: Dyna-Hex 2% Top Sol 2oz TOPIC SCH (20:11)
--- NOTE | 2019-07-17 21:05 | General Progress Note ---
Assessment/Plan Problem List: (1) Anemia ICD Codes: D64.9 - Anemia, unspecified SNOMED: 164190510 Qualifiers: Qualified Codes: D64.9 - Anemia, unspecified (2) Acute alcoholic intoxication ICD Codes: F10.929 - Alcohol use, unspecified with intoxication, unspecified SNOMED: 53358063, 7366501 Qualifiers: Qualified Codes: F10.920 - Alcohol use, unspecified with intoxication, uncomplicated (3) End-stage liver disease ICD Codes: K72.90 - Hepatic failure, unspecified without coma SNOMED: 901593040 (4) Hepatorenal syndrome ICD Codes: K76.7 - Hepatorenal syndrome SNOMED: 11377900, 0886186 (5) Pancreatitis, alcoholic, acute ICD Codes: K85.20 - Alcohol induced acute pancreatitis without necrosis or infection SNOMED: 983466732, 9150683 Qualifiers: Qualified Codes: K85.20 - Alcohol induced acute pancreatitis without necrosis or infection (6) Respiratory failure ICD Codes: J96.90 - Respiratory failure, unspecified, unspecified whether with hypoxia or hypercapnia SNOMED: 961649798 Status: stable, progressing, deteriorating Assessment/Plan: etoh cirrhosis ascites renal failure low bp very poor prognosis still jaundice moniter for gi bleeding hepatic encephalopathy elevated lft is persistent hepatorenal syndrome Subjective ROS Limited/Unobtainable: Yes Allergies: Coded Allergies: No Known Allergies (Unverified , 06/20/19) Objective Last 24 Hour Vital Signs Date Time Temp Pulse Resp B/P (MAP) Pulse Ox O2 Delivery O2 Flow Rate FiO2 07/17/19 19:34 83 25 96 Full Face 30 07/17/19 19:34 96 Bi-Pap 30 07/17/19 19:00 92/50 07/17/19 18:00 109/45 07/17/19 18:00 86 28 96/47 (63) 97 07/17/19 17:12 82 26 95 Full Face 30 07/17/19 17:00 85 24 96/56 (69) 96 07/17/19 17:00 96/56 07/17/19 16:47 104/49 07/17/19 16:00 Nasal Cannula 2.0 07/17/19 16:00 87 07/17/19 16:00 96/60 07/17/19 16:00 98.5 84 23 96/60 (72) 95 07/17/19 15:00 30 07/17/19 15:00 100/50 07/17/19 15:00 81 21 97/41 (59) 99 07/17/19 14:53 100/50 07/17/19 14:35 81 26 110/43 (65) 94 07/17/19 14:00 90 23 98/57 (71) 96 07/17/19 14:00 109/50 07/17/19 13:00 81 26 110/43 (65) 94 07/17/19 13:00 110/43 07/17/19 12:00 2.0 07/17/19 12:00 97/47 07/17/19 12:00 85 07/17/19 12:00 Nasal Cannula 2.0 07/17/19 12:00 98.9 85 27 97/47 (64) 95 07/17/19 11:00 96/54 07/17/19 11:00 84 27 96/54 (68) 95 07/17/19 10:29 106/49 07/17/19 10:00 83 27 107/41 (63) 95 07/17/19 10:00 107/49 07/17/19 09:00 86 27 97/37 (57) 95 07/17/19 08:57 97/41 07/17/19 08:00 Nasal Cannula 2.0 07/17/19 08:00 86 07/17/19 08:00 104/43 07/17/19 08:00 98.8 83 27 104/41 (62) 98 07/17/19 08:00 2.0 07/17/19 07:27 96 Nasal Cannula 2.0 28 07/17/19 07:00 99/41 07/17/19 07:00 86 27 99/41 (60) 98 07/17/19 06:00 109/53 07/17/19 06:00 86 27 109/53 (71) 98 07/17/19 05:09 89 30 98 Full Face 30 07/17/19 05:00 86 27 112/52 (72) 98 07/17/19 05:00 112/57 07/17/19 04:36 95/51 07/17/19 04:30 82 26 95/51 (66) 96 07/17/19 04:00 30 07/17/19 04:00 95/47 07/17/19 04:00 83 07/17/19 04:00 83 27 103/51 (68) 97 07/17/19 04:00 Nasal Cannula 2.0 07/17/19 03:30 81 25 97/41 (59) 96 07/17/19 03:07 84 26 97 Full Face 30 07/17/19 03:00 80 28 94/42 (59) 96 07/17/19 03:00 95/37 07/17/19 02:30 82 27 100/41 (60) 96 07/17/19 02:00 84 28 88/46 (60) 97 07/17/19 02:00 109/38 07/17/19 01:30 82 31 82/41 (55) 96 07/17/19 01:06 89 35 98 Full Face 30 07/17/19 01:00 92 28 108/48 (68) 98 07/17/19 01:00 101/44 07/17/19 00:30 87 23 105/42 (63) 97 07/17/19 00:00 2.0 07/17/19 00:00 87 31 104/48 (66) 98 07/17/19 00:00 Nasal Cannula 2.0 07/17/19 00:00 99/43 07/17/19 00:00 86 07/16/19 23:00 82 22 106/41 (62) 98 07/16/19 22:42 80 32 98 Full Face 30 07/16/19 22:30 84 29 90/43 (59) 96 07/16/19 22:20 91/44 07/16/19 22:00 91/44 07/16/19 22:00 98.8 84 25 102/43 (62) 96 07/16/19 21:30 83 28 94/43 (60) 97 Intake and Output 07/16/19 07/17/19 18:59 06:59 Intake Total 1591.381 ml 2585.28 ml Output Total 550 ml 300 ml Balance 1041.381 ml 2285.28 ml IV Total 1461.381 ml 2285.28 ml Tube Feeding 50 ml 240 ml Other 80 ml 60 ml Output Urine Total 0 ml 0 ml Stool Total 550 ml 300 ml Laboratory Tests 07/17/19 04:00: White Blood Count 45.0*H, Red Blood Count 2.48L, Hemoglobin 7.4L, Hematocrit 23.5L, Mean Corpuscular Volume 95, Mean Corpuscular Hemoglobin 29.7, Mean Corpuscular Hemoglobin Concent 31.3L, Red Cell Distribution Width 24.1H, Platelet Count 87L, Mean Platelet Volume 9.4, Neutrophils (%) (Auto) , Lymphocytes (%) (Auto) , Monocytes (%) (Auto) , Eosinophils (%) (Auto) , Basophils (%) (Auto) , Differential Total Cells Counted 100, Neutrophils % ( Manual) 77H, Lymphocytes % (Manual) 7L, Monocytes % (Manual) 7, Eosinophils % ( Manual) 3, Basophils % (Manual) 0, Myelocytes % 2H, Band Neutrophils 4, Platelet Estimate DecreasedL, Platelet Morphology Normal, Hypochromasia 1+, Anisocytosis 2+, Acanthocytes 2+, Schistocytes 1+, Prothrombin Time 25.4H, Prothromb Time International Ratio 2.5H, Sodium Level 140, Potassium Level 3.5, Chloride Level 105, Carbon Dioxide Level 10L, Anion Gap 25H, Blood Urea Nitrogen 99H, Creatinine 11.3H, Estimat Glomerular Filtration Rate 5.1, Glucose Level 136H, Calcium Level 7.0L, Total Bilirubin 34.8H, Direct Bilirubin 27.1H, Aspartate Amino Transf (AST/SGOT) 187H, Alanine Aminotransferase (ALT/SGPT) 11L , Alkaline Phosphatase 298H, Ammonia 151H, Total Protein 4.8L, Albumin 1.5L, Globulin 3.3, Albumin/Globulin Ratio 0.5L Height (Feet): 5 Height (Inches): 9.00 Weight (Pounds): 232 Neck: supple Cardiovascular: normal rate Respiratory/Chest: lungs clear Abdomen: soft Deejay Saldaña MD Jul 17, 2019 21:05
[2019-07-18] VITALS (38 sets, daily range): BP systolic 78–121; BP diastolic 37–62
[2019-07-18] MEDS: Norepinephrine Bitartrate 8 MG in D5W 500ml 550 ML IV SCH ×2 (00:16→05:55)
[2019-07-18 05:07] LABS: HEMATOCRIT 22.4 % (42.0-52.0); HEMOGLOBIN 7.1 G/DL (14.2-18.0); MEAN CORPUSCULAR VOLUME 95 FL (80-99); PLATELET COUNT 68 K/UL (150-450); RED BLOOD COUNT 2.35 M/UL (4.70-6.10); RED CELL DISTRIBUTION WIDTH 24.2 % (11.6-14.8)
[2019-07-18 05:48] LABS: ALANINE AMINOTRANSFERASE 11 U/L (12-78); ALBUMIN 1.5 G/DL (3.4-5.0); ALKALINE PHOSPHATASE 286 U/L (46-116); ANION GAP 24 mmol/L (5-15); ASPARTATE AMINO TRANSFERASE 191 U/L (15-37); BILIRUBIN,DIRECT 28.3 MG/DL (0.0-0.3); BILIRUBIN,TOTAL 34.9 MG/DL (0.2-1.0); BLOOD UREA NITROGEN 105 mg/dL (7-18); CARBON DIOXIDE 10 MMOL/L (21-32); CHLORIDE 103 MMOL/L (98-107); CREATININE 12.6 MG/DL (0.55-1.30); POTASSIUM 3.5 MMOL/L (3.5-5.1); SODIUM 137 MMOL/L (136-145)
[2019-07-18 05:49] LABS: WHITE BLOOD COUNT 47.2 K/UL (4.8-10.8)
[2019-07-18] MEDS: D5 1/2NS 1,000 ML IV SCH (05:52)
[2019-07-18] MEDS: Lactulose 20gm/30ml UDC NG SCH ×3 (08:27→18:10)
[2019-07-18] MEDS: Thiamine 100mg tab ORAL SCH (08:27)
[2019-07-18] MEDS: Pantoprazole Inj IVP SCH (08:27)
[2019-07-18] MEDS: Cefepime HCl 1 GM in D5W 55 ML IVPB SCH (08:28)
--- NOTE | 2019-07-18 08:50 | General Progress Note ---
Assessment/Plan Problem List: (1) Pancreatitis, alcoholic, acute ICD Codes: K85.20 - Alcohol induced acute pancreatitis without necrosis or infection SNOMED: 122964655, 3382154 Qualifiers: Qualified Codes: K85.20 - Alcohol induced acute pancreatitis without necrosis or infection (2) Acute alcoholic intoxication ICD Codes: F10.929 - Alcohol use, unspecified with intoxication, unspecified SNOMED: 75332965, 6988180 Qualifiers: Qualified Codes: F10.920 - Alcohol use, unspecified with intoxication, uncomplicated (3) Anemia ICD Codes: D64.9 - Anemia, unspecified SNOMED: 590770836 Qualifiers: Qualified Codes: D64.9 - Anemia, unspecified Status: stable, progressing, deteriorating Assessment/Plan: NGTF>> on hold octreotide protonix transfuse one unit FFP EGD on hold patient not stable repeat labs fu nephrology cont lactulose xifaxan prn paracentesis>> repeated 800 cc last one poor prognosis recommend comfort care Subjective ROS Limited/Unobtainable: No Allergies: Coded Allergies: No Known Allergies (Unverified , 06/20/19) Objective Last 24 Hour Vital Signs Date Time Temp Pulse Resp B/P (MAP) Pulse Ox O2 Delivery O2 Flow Rate FiO2 07/18/19 07:31 71 23 96 Full Face 40 07/18/19 07:30 99 Bi-Pap 30 07/18/19 07:00 84/45 07/18/19 07:00 77 23 84/45 (58) 97 07/18/19 06:00 78 23 97/52 (67) 97 07/18/19 05:55 96/44 07/18/19 05:30 77 21 96/44 (61) 96 07/18/19 05:13 80 21 97 Full Face 40 07/18/19 05:00 79 22 95/47 (63) 97 07/18/19 05:00 79/50 07/18/19 04:50 79 23 92/55 (67) 98 07/18/19 04:30 78 24 79/38 (52) 99 07/18/19 04:00 5.0 40 07/18/19 04:00 Bi-pap 5.0 07/18/19 04:00 80 07/18/19 04:00 98.2 79 23 102/47 (65) 98 07/18/19 04:00 89/58 07/18/19 03:30 78 22 87/46 (60) 97 07/18/19 03:27 80 27 96 Full Face 40 07/18/19 03:00 79 15 91/42 (58) 90 07/18/19 03:00 87/46 07/18/19 02:30 80 24 91/39 (56) 97 07/18/19 02:30 80 24 91/39 (56) 97 07/18/19 02:00 79 22 93/40 (57) 97 07/18/19 02:00 80 24 99/40 (59) 97 07/18/19 02:00 91/39 07/18/19 02:00 79 22 93/40 (57) 97 07/18/19 01:30 81 24 93/40 (57) 97 07/18/19 01:30 77 25 93/43 (60) 98 07/18/19 01:30 77 25 93/43 (60) 98 07/18/19 01:05 78 25 96 Full Face 40 07/18/19 01:00 82 26 97/37 (57) 96 07/18/19 01:00 82 26 97/37 (57) 96 07/18/19 01:00 93/43 07/18/19 01:00 82 23 93/43 (60) 96 07/18/19 00:30 81 24 91/41 (58) 97 07/18/19 00:30 81 24 91/41 (58) 97 07/18/19 00:30 81 23 97/37 (57) 96 07/18/19 00:16 95/42 07/18/19 00:00 Bi-pap 5.0 07/18/19 00:00 80 23 95/42 (59) 96 07/18/19 00:00 97.9 80 23 101/40 (60) 96 07/18/19 00:00 88 07/18/19 00:00 91/41 07/18/19 00:00 80 23 95/42 (59) 96 07/18/19 00:00 5.0 40 07/17/19 23:30 79 22 100/39 (59) 99 07/17/19 23:20 83 24 96 Full Face 40 07/17/19 23:00 80 22 94/39 (57) 99 07/17/19 23:00 94/39 07/17/19 22:30 81 22 93/40 (57) 99 07/17/19 22:00 82 23 84/37 (53) 98 07/17/19 22:00 105/60 07/17/19 21:30 82 24 93/48 (63) 98 07/17/19 21:19 83 27 95 Full Face 30 07/17/19 21:00 84 24 92/40 (57) 93 07/17/19 21:00 92/40 07/17/19 20:30 81 24 96/38 (57) 92 07/17/19 20:00 Bi-pap 5.0 07/17/19 20:00 98.2 84 24 96/50 (65) 96 07/17/19 20:00 96/35 07/17/19 20:00 84 07/17/19 20:00 5.0 40 07/17/19 19:34 83 25 96 Full Face 30 07/17/19 19:34 96 Bi-Pap 30 07/17/19 19:30 84 25 92/50 (64) 96 07/17/19 19:00 92/50 07/17/19 18:00 109/45 07/17/19 18:00 86 28 96/47 (63) 97 07/17/19 17:12 82 26 95 Full Face 30 07/17/19 17:00 85 24 96/56 (69) 96 07/17/19 17:00 96/56 07/17/19 16:47 104/49 07/17/19 16:00 Nasal Cannula 2.0 07/17/19 16:00 87 07/17/19 16:00 96/60 07/17/19 16:00 98.5 84 23 96/60 (72) 95 07/17/19 15:00 30 07/17/19 15:00 100/50 07/17/19 15:00 81 21 97/41 (59) 99 07/17/19 14:53 100/50 07/17/19 14:35 81 26 110/43 (65) 94 07/17/19 14:00 90 23 98/57 (71) 96 07/17/19 14:00 109/50 07/17/19 13:00 81 26 110/43 (65) 94 07/17/19 13:00 110/43 07/17/19 12:00 2.0 07/17/19 12:00 97/47 07/17/19 12:00 85 07/17/19 12:00 Nasal Cannula 2.0 07/17/19 12:00 98.9 85 27 97/47 (64) 95 07/17/19 11:00 96/54 07/17/19 11:00 84 27 96/54 (68) 95 07/17/19 10:29 106/49 07/17/19 10:00 83 27 107/41 (63) 95 07/17/19 10:00 107/49 07/17/19 09:00 86 27 97/37 (57) 95 07/17/19 08:57 97/41 Intake and Output 07/17/19 07/18/19 19:00 07:00 Intake Total 2197.758 ml 1579.29 ml Output Total 550 ml 300 ml Balance 1647.758 ml 1279.29 ml IV Total 2107.758 ml 1579.29 ml Tube Feeding 0 ml 0 ml Other 90 ml Output Urine Total 0 ml 0 ml Stool Total 550 ml 300 ml Laboratory Tests 07/18/19 04:30: White Blood Count 47.2*H, Red Blood Count 2.35L, Hemoglobin 7.1L, Hematocrit 22.4L, Mean Corpuscular Volume 95, Mean Corpuscular Hemoglobin 30.1, Mean Corpuscular Hemoglobin Concent 31.6L, Red Cell Distribution Width 24.2H, Platelet Count 68L, Mean Platelet Volume 8.2, Neutrophils (%) (Auto) , Lymphocytes (%) (Auto) , Monocytes (%) (Auto) , Eosinophils (%) (Auto) , Basophils (%) (Auto) , Differential Total Cells Counted 100, Neutrophils % ( Manual) 86H, Lymphocytes % (Manual) 8L, Monocytes % (Manual) 5, Eosinophils % ( Manual) 1, Basophils % (Manual) 0, Band Neutrophils 0, Nucleated Red Blood Cells 1, Platelet Estimate DecreasedL, Platelet Morphology Normal, Hypochromasia 1+, Anisocytosis 2+, Target Cells 1+, Ranjit Cells 1+, Sodium Level 137, Potassium Level 3.5, Chloride Level 103, Carbon Dioxide Level 10L, Anion Gap 24H, Blood Urea Nitrogen 105H, Creatinine 12.6H, Estimat Glomerular Filtration Rate 4.5, Glucose Level 135H, Calcium Level 7.0L, Total Bilirubin 34.9H, Direct Bilirubin 28.3H, Aspartate Amino Transf (AST/SGOT) 191H, Alanine Aminotransferase (ALT/SGPT) 11L, Alkaline Phosphatase 286H, Total Protein 4.8L, Albumin 1.5L Height (Feet): 5 Height (Inches): 9.00 Weight (Pounds): 235 General Appearance: lethargic EENT: scleral icterus Neck: supple Cardiovascular: tachycardia Respiratory/Chest: decreased breath sounds Abdomen: normal bowel sounds, non tender, soft Extremities: non-tender Merlin Esposito MD Jul 18, 2019 08:50
[2019-07-18] MEDS: Octreotide Acetate 500 MCG in Sodium Chloride 499 ML IV SCH ×2 (09:25→18:10)
[2019-07-18] MEDS: DOPamine 400mg/250ml 250 ML IV SCH ×3 (09:26→18:10)
--- NOTE | 2019-07-18 09:32 | Hematology/Onc Progress Note ---
Assessment/Plan Assessment/Plan Assessment and Recs: # Thrombocytopenia - potential causes multifactorial, does have a history of etoh abuse, cirrhosis of the liver, hepatosplenomegaly, portal HTN, coagulopathy noted as well, likely oscillatory pattern can be due to abx as well. Hep panel and HIV ordered (NEG) --> US abd does show, portal htn and cirrhosis ++ --> Peripheral smear ordered to evaluate for blasts /schistocytes reviewed and is negative --> abx and other meds have been reviewed --> ok for ppx if plt >50k w/ either heparin or lovenox --> Transfuse if Plt < 20k and fever, or if Plt < 10k without fever --> plt trend 80-->97-->117-->157k->216k-->107k-->72k-->68k-->109k-->108k-->148k -->176k-->182k->141k-->128k-->148k-->152-->82k->87k-->68 --> ffp tx: 07/13 # Anemia of chronic disease due to underlying chronic medical issues, multifactorial (myelosuprresion noted) --> Anemia workup has been reviewed, ferritin 297 --> EPOGEN HAS BEEN ORDERED WITH HD --> Hgb goal >7. Transfuse prn. --> Medications have been reviewed --> low threshold for gi evaluation in case has occult + --> hgb trend: 7.7-->8.2-->9->8.4-->8.3-->8.2-->8-->7.4->7.3-->7.7-->7.8-->7.6-- >8.1->7.5-->7.8-->7.5-->7.4-->7.1 --> serum electrophoresis shows no m-spike 06/27 --> cont thiamine --> blood tx: 2 units 07/13 # Coagulopathy due to cirrhosis --> give Vitk as needed # Leukocytosis with sepsis is on abx --> ID following, appreciate recs --> wbc trend: 17k-->13.9-->19.5-->18.7-->27.4-->33.6->32--->33-->30-->34-->44.1 -->44k-->45k-->47 --> FLAGYL and CTX-> vanc/amish-->cefe # Acute alcoholic intoxication --> etoh abuse history --> thiamine, folic acid, ivf # End-stage liver disease --> Hepatorenal syndrome r/o with renal, albumin prn # Pancreatitis, alcoholic, acute # Tachycardia # ESRD --> on hd as per renal # Dvt ppx with scds given low plts # POOR PROGNOSIS The timing of this note does not necessarily reflect the time of the patient was seen. GREATLY APPRECIATE CONSULTATION. Subjective Allergies: Coded Allergies: No Known Allergies (Unverified , 06/20/19) Subjective 06/21: low k, ferritin 297, h/h stable, afebrile, blood transfused 06/22: in icu, on restraints, labs reviewed, no f/c, imaging reviewed 06/23: pain meds given, remains in icu, again in restraints, bili higher, inr as well, given vitk 06/25: no fevers, no chills, no bleeding, confused in bed in icu 06/26: no events to report, no bleeding, remains in icu, ++ bipap 06/27: icu,s/p paracentesis yesterday, off pressors, h/h stable 06/28: on ctx/flagyl, remains confused, no bleeding, plt is lower 06/29: no f/c, on abx, no acute events, no distress, labs reviewed 06/30: remains in the icu, on abx, no f/c, scds+ 07/02: remains in the icu, no fevers or chills, prbc ordered, as well as epo 07/03: remains in the icu, on restraints, on abx, labs noted, vs stable, no acute events 07/04: dw team and agree patient with very poor prognosis, pending bioethics consult 07/05: remains in icu, very poor prognosis, labs noted wbc 27.4, off bipap receiving repiratory tx 07/06: remains icu, very poor prognosis, wbc 33.6 trending up, no f/c, vs stable , on bipap, paracentesis pending 07/08: remains in the icu, labs look worse, though repsonding better this am, able to raise hands 07/09: no events, hd was done, no events, labs noted, no bleeding 07/10: remains borderline in re to mental status, no f/c, no bleeding in the icu 07/11: no events to report, is on lactulose, xiafan, para ordered 07/12: a+o x 1, no bleeding, chills, night sweats, no major changes 07/13: hgb 6.4, 2 units prbc ordered, on pressors, hd for today, remains ill looking 07/14: no bleeding or chills, no night sweats, wbc is 45k, on abx, on cefepime 07/16: no f/c, wbc is 44k, hgb 7.5, plt 82k, on abx-->cefepime, confused 07/17: no events, no bleeding to report, no major changes, no fevers 07/18: icu, lethargic and disoriented, cxr shows infiltrates, wbc 47, on pressors Objective Objective Current Medications Medications (Trade) Dose Ordered Sig/Gabriela Route PRN Reason Start Time Stop Time Status Last Admin Dose Admin Cefepime HCl 1 gm/ Dextrose 55 ml @ 110 mls/hr Q24H IVPB 07/13/19 08:00 07/20/19 07:59 07/18/19 08:28 Chlorhexidine Gluconate (Emilie-Hex 2%) 1 applic DAILY@1999 TOPIC 06/26/19 20:00 07/26/19 19:59 07/17/19 20:11 Dextrose/Sodium Chloride 1,000 ml @ 40 mls/hr Q24H IV 07/13/19 12:45 08/12/19 12:44 07/18/19 05:52 Dopamine HCl/ Dextrose 250 ml @ 0 mls/hr Q24H IV 06/30/19 14:53 07/30/19 14:52 07/13/19 19:25 Epoetin Michael (Epoetin Michael(ESRD on dialysis)) 2,000 unit TUE-TUE-TUE SUBQ 07/02/19 21:00 08/01/19 20:59 07/16/19 20:37 Epoetin Michael (Epoetin Michael(ESRD on dialysis)) 3,000 unit TUE- SUBQ 07/02/19 21:00 08/01/19 20:59 07/16/19 20:36 Lactulose (Cephulac) 30 gm FOUR TIMES A DAY NG 07/01/19 09:00 07/20/19 12:59 07/18/19 08:27 Multivitamins (Multivitamins) 1 tab DAILY ORAL 07/10/19 09:00 08/09/19 08:59 07/18/19 08:27 Norepinephrine Bitartrate 8 mg/ Dextrose 558 ml @ 0 mls/hr Q24H IV 07/12/19 21:30 08/11/19 21:29 07/18/19 05:55 Octreotide Acetate 500 mcg/ Sodium Chloride 500 ml @ 50 mls/hr Q10H IV 07/18/19 09:00 08/17/19 08:59 Pantoprazole (Protonix) 40 mg EVERY 12 HOURS IVP 07/13/19 10:00 08/12/19 09:59 07/18/19 08:27 Thiamine HCl (Vitamin B1) 100 mg DAILY ORAL 07/10/19 09:00 08/09/19 08:59 07/18/19 08:27 Last 24 Hour Vital Signs Date Time Temp Pulse Resp B/P (MAP) Pulse Ox O2 Delivery O2 Flow Rate FiO2 07/18/19 08:30 72 21 92/45 (61) 97 07/18/19 08:00 97.7 72 21 92/48 (63) 96 07/18/19 08:00 Bi-pap 5.0 07/18/19 08:00 5.0 40 07/18/19 07:31 71 23 96 Full Face 40 07/18/19 07:30 99 Bi-Pap 30 07/18/19 07:00 84/45 07/18/19 07:00 77 23 84/45 (58) 97 07/18/19 06:00 78 23 97/52 (67) 97 07/18/19 05:55 96/44 07/18/19 05:30 77 21 96/44 (61) 96 07/18/19 05:13 80 21 97 Full Face 40 07/18/19 05:00 79 22 95/47 (63) 97 07/18/19 05:00 79/50 07/18/19 04:50 79 23 92/55 (67) 98 07/18/19 04:30 78 24 79/38 (52) 99 07/18/19 04:00 5.0 40 07/18/19 04:00 Bi-pap 5.0 07/18/19 04:00 80 07/18/19 04:00 98.2 79 23 102/47 (65) 98 07/18/19 04:00 89/58 07/18/19 03:30 78 22 87/46 (60) 97 07/18/19 03:27 80 27 96 Full Face 40 07/18/19 03:00 79 15 91/42 (58) 90 07/18/19 03:00 87/46 07/18/19 02:30 80 24 91/39 (56) 97 07/18/19 02:30 80 24 91/39 (56) 97 07/18/19 02:00 79 22 93/40 (57) 97 07/18/19 02:00 80 24 99/40 (59) 97 07/18/19 02:00 91/39 07/18/19 02:00 79 22 93/40 (57) 97 07/18/19 01:30 81 24 93/40 (57) 97 07/18/19 01:30 77 25 93/43 (60) 98 07/18/19 01:30 77 25 93/43 (60) 98 07/18/19 01:05 78 25 96 Full Face 40 07/18/19 01:00 82 26 97/37 (57) 96 07/18/19 01:00 82 26 97/37 (57) 96 07/18/19 01:00 93/43 07/18/19 01:00 82 23 93/43 (60) 96 07/18/19 00:30 81 24 91/41 (58) 97 07/18/19 00:30 81 24 91/41 (58) 97 07/18/19 00:30 81 23 97/37 (57) 96 07/18/19 00:16 95/42 07/18/19 00:00 Bi-pap 5.0 07/18/19 00:00 80 23 95/42 (59) 96 07/18/19 00:00 97.9 80 23 101/40 (60) 96 07/18/19 00:00 88 07/18/19 00:00 91/41 07/18/19 00:00 80 23 95/42 (59) 96 07/18/19 00:00 5.0 40 07/17/19 23:30 79 22 100/39 (59) 99 07/17/19 23:20 83 24 96 Full Face 40 07/17/19 23:00 80 22 94/39 (57) 99 07/17/19 23:00 94/39 07/17/19 22:30 81 22 93/40 (57) 99 07/17/19 22:00 82 23 84/37 (53) 98 07/17/19 22:00 105/60 07/17/19 21:30 82 24 93/48 (63) 98 07/17/19 21:19 83 27 95 Full Face 30 07/17/19 21:00 84 24 92/40 (57) 93 07/17/19 21:00 92/40 07/17/19 20:30 81 24 96/38 (57) 92 07/17/19 20:00 Bi-pap 5.0 07/17/19 20:00 98.2 84 24 96/50 (65) 96 07/17/19 20:00 96/35 07/17/19 20:00 84 07/17/19 20:00 5.0 40 07/17/19 19:34 83 25 96 Full Face 30 07/17/19 19:34 96 Bi-Pap 30 07/17/19 19:30 84 25 92/50 (64) 96 07/17/19 19:00 92/50 07/17/19 18:00 109/45 07/17/19 18:00 86 28 96/47 (63) 97 07/17/19 17:12 82 26 95 Full Face 30 07/17/19 17:00 85 24 96/56 (69) 96 07/17/19 17:00 96/56 07/17/19 16:47 104/49 07/17/19 16:00 Nasal Cannula 2.0 07/17/19 16:00 87 07/17/19 16:00 96/60 07/17/19 16:00 98.5 84 23 96/60 (72) 95 9/24/19 15:00 30 07/17/19 15:00 100/50 07/17/19 15:00 81 21 97/41 (59) 99 07/17/19 14:53 100/50 07/17/19 14:35 81 26 110/43 (65) 94 07/17/19 14:00 90 23 98/57 (71) 96 07/17/19 14:00 109/50 07/17/19 13:00 81 26 110/43 (65) 94 07/17/19 13:00 110/43 07/17/19 12:00 2.0 07/17/19 12:00 97/47 07/17/19 12:00 85 07/17/19 12:00 Nasal Cannula 2.0 07/17/19 12:00 98.9 85 27 97/47 (64) 95 07/17/19 11:00 96/54 07/17/19 11:00 84 27 96/54 (68) 95 07/17/19 10:29 106/49 07/17/19 10:00 83 27 107/41 (63) 95 07/17/19 10:00 107/49 07/17/19 09:00 86 27 97/37 (57) 95 07/17/19 08:57 97/41 07/17/19 08:00 Nasal Cannula 2.0 07/17/19 08:00 86 07/17/19 08:00 104/43 07/17/19 08:00 98.8 83 27 104/41 (62) 98 07/17/19 08:00 2.0 07/17/19 07:27 96 Nasal Cannula 2.0 28 07/17/19 07:00 99/41 07/17/19 07:00 86 27 99/41 (60) 98 07/17/19 06:00 109/53 07/17/19 06:00 86 27 109/53 (71) 98 07/17/19 05:09 89 30 98 Full Face 30 07/17/19 05:00 86 27 112/52 (72) 98 07/17/19 05:00 112/57 07/17/19 04:36 95/51 07/17/19 04:30 82 26 95/51 (66) 96 07/17/19 04:00 30 07/17/19 04:00 95/47 07/17/19 04:00 83 07/17/19 04:00 83 27 103/51 (68) 97 07/17/19 04:00 Nasal Cannula 2.0 07/17/19 03:30 81 25 97/41 (59) 96 07/17/19 03:07 84 26 97 Full Face 30 07/17/19 03:00 80 28 94/42 (59) 96 07/17/19 03:00 95/37 07/17/19 02:30 82 27 100/41 (60) 96 07/17/19 02:00 84 28 88/46 (60) 97 07/17/19 02:00 109/38 07/17/19 01:30 82 31 82/41 (55) 96 07/17/19 01:06 89 35 98 Full Face 30 07/17/19 01:00 92 28 108/48 (68) 98 07/17/19 01:00 101/44 07/17/19 00:30 87 23 105/42 (63) 97 07/17/19 00:00 2.0 07/17/19 00:00 87 31 104/48 (66) 98 07/17/19 00:00 Nasal Cannula 2.0 07/17/19 00:00 99/43 07/17/19 00:00 86 07/16/19 23:00 82 22 106/41 (62) 98 07/16/19 22:42 80 32 98 Full Face 30 07/16/19 22:30 84 29 90/43 (59) 96 07/16/19 22:20 91/44 07/16/19 22:00 91/44 07/16/19 22:00 98.8 84 25 102/43 (62) 96 07/16/19 21:30 83 28 94/43 (60) 97 07/16/19 21:00 78 28 95/40 (58) 96 07/16/19 21:00 102/38 07/16/19 20:30 80 24 92/60 (71) 96 07/16/19 20:00 79 07/16/19 20:00 2.0 07/16/19 20:00 99/47 07/16/19 20:00 Nasal Cannula 2.0 07/16/19 20:00 80 27 98/45 (62) 97 07/16/19 19:29 100 Nasal Cannula 2.0 28 07/16/19 19:00 99/48 07/16/19 19:00 85 26 100/52 (68) 98 07/16/19 18:45 80 27 92/47 (62) 98 07/16/19 18:30 80 26 94/42 (59) 97 07/16/19 18:00 78 27 100/44 (62) 97 07/16/19 17:30 79 25 91/45 (60) 97 07/16/19 17:00 80 27 106/50 (68) 97 07/16/19 16:45 83 29 101/48 (65) 97 07/16/19 16:30 81 32 100/50 (67) 96 07/16/19 16:00 98.3 80 29 112/68 (83) 94 07/16/19 16:00 2.0 07/16/19 16:00 112/68 07/16/19 16:00 Nasal Cannula 2.0 07/16/19 15:59 112/68 07/16/19 15:45 79 24 112/68 (83) 95 07/16/19 15:31 79 07/16/19 15:30 80 26 100/45 (63) 96 07/16/19 15:15 85 27 103/57 (72) 97 07/16/19 15:00 89 27 107/58 (74) 94 07/16/19 15:00 107/58 07/16/19 14:53 107/58 07/16/19 14:45 82 31 98/48 (65) 94 07/16/19 14:30 83 28 104/53 (70) 96 07/16/19 14:25 80 27 89/47 (61) 97 07/16/19 14:21 78 20 86/46 (59) 97 07/16/19 14:21 86/46 07/16/19 14:15 81 29 91/45 (60) 96 07/16/19 14:00 87 31 105/47 (66) 95 07/16/19 14:00 91/45 07/16/19 13:30 84 30 114/44 (67) 96 07/16/19 13:00 83 30 94/50 (65) 95 07/16/19 13:00 92/47 07/16/19 12:30 81 31 73/48 (56) 93 07/16/19 12:00 2.0 07/16/19 12:00 98.3 84 26 103/49 (67) 95 07/16/19 12:00 Nasal Cannula 2.0 07/16/19 12:00 103/49 07/16/19 11:31 85 07/16/19 11:00 94/49 07/16/19 11:00 79 30 95/51 (66) 96 07/16/19 10:30 80 26 104/57 (73) 96 07/16/19 10:00 80 33 98/48 (65) 97 07/16/19 10:00 93/53 07/16/19 09:57 83/49 07/16/19 09:30 84 31 82/36 (51) 95 Intake and Output 07/17/19 07/18/19 19:00 07:00 Intake Total 2197.758 ml 1579.29 ml Output Total 550 ml 300 ml Balance 1647.758 ml 1279.29 ml IV Total 2107.758 ml 1579.29 ml Tube Feeding 0 ml 0 ml Other 90 ml Output Urine Total 0 ml 0 ml Stool Total 550 ml 300 ml Labs Test 07/16/19 04:30 07/17/19 04:00 07/18/19 04:30 White Blood Count 44.0 K/UL (4.8-10.8) 45.0 K/UL (4.8-10.8) 47.2 K/UL (4.8-10.8) Red Blood Count 2.52 M/UL (4.70-6.10) 2.48 M/UL (4.70-6.10) 2.35 M/UL (4.70-6.10) Hemoglobin 7.5 G/DL (14.2-18.0) 7.4 G/DL (14.2-18.0) 7.1 G/DL (14.2-18.0) Hematocrit 23.3 % (42.0-52.0) 23.5 % (42.0-52.0) 22.4 % (42.0-52.0) Mean Corpuscular Volume 92 FL (80-99) 95 FL (80-99) 95 FL (80-99) Mean Corpuscular Hemoglobin 29.8 PG (27.0-31.0) 29.7 PG (27.0-31.0) 30.1 PG (27.0-31.0) Mean Corpuscular Hemoglobin Concent 32.3 G/DL (32.0-36.0) 31.3 G/DL (32.0-36.0) 31.6 G/DL (32.0-36.0) Red Cell Distribution Width 22.9 % (11.6-14.8) 24.1 % (11.6-14.8) 24.2 % (11.6-14.8) Platelet Count 82 K/UL (150-450) 87 K/UL (150-450) 68 K/UL (150-450) Mean Platelet Volume 6.8 FL (6.5-10.1) 9.4 FL (6.5-10.1) 8.2 FL (6.5-10.1) Neutrophils (%) (Auto) % (45.0-75.0) % (45.0-75.0) % (45.0-75.0) Lymphocytes (%) (Auto) % (20.0-45.0) % (20.0-45.0) % (20.0-45.0) Monocytes (%) (Auto) % (1.0-10.0) % (1.0-10.0) % (1.0-10.0) Eosinophils (%) (Auto) % (0.0-3.0) % (0.0-3.0) % (0.0-3.0) Basophils (%) (Auto) % (0.0-2.0) % (0.0-2.0) % (0.0-2.0) Differential Total Cells Counted 100 100 100 Neutrophils % (Manual) 81 % (45-75) 77 % (45-75) 86 % (45-75) Lymphocytes % (Manual) 6 % (20-45) 7 % (20-45) 8 % (20-45) Monocytes % (Manual) 5 % (1-10) 7 % (1-10) 5 % (1-10) Eosinophils % (Manual) 0 % (0-3) 3 % (0-3) 1 % (0-3) Basophils % (Manual) 0 % (0-2) 0 % (0-2) 0 % (0-2) Myelocytes % 2 % (0-0) 2 % (0-0) Band Neutrophils 6 % (0-8) 4 % (0-8) 0 % (0-8) Platelet Estimate Decreased Decreased Decreased Platelet Morphology Normal Normal Normal Polychromasia 1+ Hypochromasia 1+ 1+ 1+ Anisocytosis 3+ 2+ 2+ Schistocytes Occasional 1+ Sodium Level 144 MMOL/L (136-145) 140 MMOL/L (136-145) 137 MMOL/L (136-145) Potassium Level 3.0 MMOL/L (3.5-5.1) 3.5 MMOL/L (3.5-5.1) 3.5 MMOL/L (3.5-5.1) Chloride Level 109 MMOL/L (98-107) 105 MMOL/L (98-107) 103 MMOL/L (98-107) Carbon Dioxide Level 11 MMOL/L (21-32) 10 MMOL/L (21-32) 10 MMOL/L (21-32) Anion Gap 24 mmol/L (5-15) 25 mmol/L (5-15) 24 mmol/L (5-15) Blood Urea Nitrogen 96 mg/dL (7-18) 99 mg/dL (7-18) 105 mg/dL (7-18) Creatinine 10.8 MG/DL (0.55-1.30) 11.3 MG/DL (0.55-1.30) 12.6 MG/DL (0.55-1.30) Estimat Glomerular Filtration Rate 5.3 mL/min (>60) 5.1 mL/min (>60) 4.5 mL/min (>60) Glucose Level 162 MG/DL (74-106) 136 MG/DL (74-106) 135 MG/DL (74-106) Calcium Level 7.1 MG/DL (8.5-10.1) 7.0 MG/DL (8.5-10.1) 7.0 MG/DL (8.5-10.1) Total Bilirubin 36.9 MG/DL (0.2-1.0) 34.8 MG/DL (0.2-1.0) 34.9 MG/DL (0.2-1.0) Direct Bilirubin 29.3 MG/DL (0.0-0.3) 27.1 MG/DL (0.0-0.3) 28.3 MG/DL (0.0-0.3) Aspartate Amino Transf (AST/SGOT) 147 U/L (15-37) 187 U/L (15-37) 191 U/L (15-37) Alanine Aminotransferase (ALT/SGPT) 8 U/L (12-78) 11 U/L (12-78) 11 U/L (12-78) Alkaline Phosphatase 277 U/L (46-116) 298 U/L (46-116) 286 U/L (46-116) Total Protein 4.8 G/DL (6.4-8.2) 4.8 G/DL (6.4-8.2) 4.8 G/DL (6.4-8.2) Albumin 1.6 G/DL (3.4-5.0) 1.5 G/DL (3.4-5.0) 1.5 G/DL (3.4-5.0) Acanthocytes 2+ Prothrombin Time 25.4 SEC (9.30-11.50) Prothromb Time International Ratio 2.5 (0.9-1.1) Ammonia 151 umol/L (11-32) Globulin 3.3 g/dL Albumin/Globulin Ratio 0.5 (1.0-2.7) Nucleated Red Blood Cells 1 /100 WBC Target Cells 1+ [place] Cells 1+ Height (Feet): 5 Height (Inches): 9.00 Weight (Pounds): 235 Objective Physical Exam: Vitals: reviewed General Appearance: NAD HEENT: normocephalic, atraumatic ++ icterus jaundice, ng+ Neck: non-tender, normal alignment Respiratory/Chest: normal breath sounds bilaterally++ nc, BIPAP+ Cardiovascular/Chest: normal peripheral pulses, normal rate Abdomen: normal bowel sounds, soft,+ peg ++ ascites Extremities: normal range of motion Marty Kebede MD Jul 18, 2019 09:32
--- NOTE | 2019-07-18 10:35 | Infectious Diseases Prog Note ---
Assessment/Plan Assessment/Plan IMPRESSION: 1. Sepsis. 2. leukocytosis 3. Tachycardia. 4. Leukocytosis. 5. colitis, 6.Alcoholic pancreatitis, 7.Cirrhosis of liver, 8. Acute renal failure likely hepatorenal syndrome, - ESRD 9.Anemia, 10. thrombocytopenia, 11.hypocalcemia, 12.hypomagnesemia, corrected 13 hypokalemia, 14, Alcohol withdrawal. 15.Metabolic encephalopathy 16. Hypophosphatemia 17. Hypernatremia 18. Hypoxic respiratory failure 19 GI bleeding RECOMMENDATION: Continue Cefepime Poor prognosis Subjective ROS Limited/Unobtainable: Yes Respiratory: Reports: other - started on BIPAP Cardiovascular: Reports: other - on low dose Dopamine Neurologic: Reports: confusion, other - on restraint Allergies: Coded Allergies: No Known Allergies (Unverified , 06/20/19) Objective Vital Signs Last 24 Hour Vital Signs Date Time Temp Pulse Resp B/P (MAP) Pulse Ox O2 Delivery O2 Flow Rate FiO2 07/18/19 10:00 90/56 07/18/19 10:00 81 21 107/57 (74) 94 07/18/19 09:47 79 21 96 Full Face 40 07/18/19 09:30 72 23 96/40 (58) 96 07/18/19 09:26 88/42 07/18/19 09:00 72 22 81/51 (61) 97 07/18/19 09:00 88/58 07/18/19 08:30 72 21 92/45 (61) 97 07/18/19 08:00 97.7 72 21 92/48 (63) 96 07/18/19 08:00 Bi-pap 5.0 07/18/19 08:00 5.0 40 07/18/19 08:00 71 07/18/19 08:00 90/45 07/18/19 07:31 71 23 96 Full Face 40 07/18/19 07:30 99 Bi-Pap 30 07/18/19 07:00 84/45 07/18/19 07:00 77 23 84/45 (58) 97 07/18/19 06:00 78 23 97/52 (67) 97 07/18/19 05:55 96/44 07/18/19 05:30 77 21 96/44 (61) 96 07/18/19 05:13 80 21 97 Full Face 40 07/18/19 05:00 79 22 95/47 (63) 97 07/18/19 05:00 79/50 07/18/19 04:50 79 23 92/55 (67) 98 07/18/19 04:30 78 24 79/38 (52) 99 07/18/19 04:00 5.0 40 07/18/19 04:00 Bi-pap 5.0 07/18/19 04:00 80 07/18/19 04:00 98.2 79 23 102/47 (65) 98 07/18/19 04:00 89/58 07/18/19 03:30 78 22 87/46 (60) 97 07/18/19 03:27 80 27 96 Full Face 40 07/18/19 03:00 79 15 91/42 (58) 90 07/18/19 03:00 87/46 07/18/19 02:30 80 24 91/39 (56) 97 07/18/19 02:30 80 24 91/39 (56) 97 07/18/19 02:00 79 22 93/40 (57) 97 07/18/19 02:00 80 24 99/40 (59) 97 07/18/19 02:00 91/39 07/18/19 02:00 79 22 93/40 (57) 97 07/18/19 01:30 81 24 93/40 (57) 97 07/18/19 01:30 77 25 93/43 (60) 98 07/18/19 01:30 77 25 93/43 (60) 98 07/18/19 01:05 78 25 96 Full Face 40 07/18/19 01:00 82 26 97/37 (57) 96 07/18/19 01:00 82 26 97/37 (57) 96 07/18/19 01:00 93/43 07/18/19 01:00 82 23 93/43 (60) 96 07/18/19 00:30 81 24 91/41 (58) 97 07/18/19 00:30 81 24 91/41 (58) 97 07/18/19 00:30 81 23 97/37 (57) 96 07/18/19 00:16 95/42 07/18/19 00:00 Bi-pap 5.0 07/18/19 00:00 80 23 95/42 (59) 96 07/18/19 00:00 97.9 80 23 101/40 (60) 96 07/18/19 00:00 88 07/18/19 00:00 91/41 07/18/19 00:00 80 23 95/42 (59) 96 07/18/19 00:00 5.0 40 07/17/19 23:30 79 22 100/39 (59) 99 07/17/19 23:20 83 24 96 Full Face 40 07/17/19 23:00 80 22 94/39 (57) 99 07/17/19 23:00 94/39 07/17/19 22:30 81 22 93/40 (57) 99 07/17/19 22:00 82 23 84/37 (53) 98 07/17/19 22:00 105/60 07/17/19 21:30 82 24 93/48 (63) 98 07/17/19 21:19 83 27 95 Full Face 30 07/17/19 21:00 84 24 92/40 (57) 93 07/17/19 21:00 92/40 07/17/19 20:30 81 24 96/38 (57) 92 07/17/19 20:00 Bi-pap 5.0 07/17/19 20:00 98.2 84 24 96/50 (65) 96 07/17/19 20:00 96/35 07/17/19 20:00 84 07/17/19 20:00 5.0 40 07/17/19 19:34 83 25 96 Full Face 30 07/17/19 19:34 96 Bi-Pap 30 07/17/19 19:30 84 25 92/50 (64) 96 07/17/19 19:00 92/50 07/17/19 18:00 109/45 07/17/19 18:00 86 28 96/47 (63) 97 07/17/19 17:12 82 26 95 Full Face 30 07/17/19 17:00 85 24 96/56 (69) 96 07/17/19 17:00 96/56 07/17/19 16:47 104/49 07/17/19 16:00 Nasal Cannula 2.0 07/17/19 16:00 87 07/17/19 16:00 96/60 07/17/19 16:00 98.5 84 23 96/60 (72) 95 07/17/19 15:00 30 07/17/19 15:00 100/50 07/17/19 15:00 81 21 97/41 (59) 99 07/17/19 14:53 100/50 07/17/19 14:35 81 26 110/43 (65) 94 07/17/19 14:00 90 23 98/57 (71) 96 07/17/19 14:00 109/50 07/17/19 13:00 81 26 110/43 (65) 94 07/17/19 13:00 110/43 07/17/19 12:00 2.0 07/17/19 12:00 97/47 07/17/19 12:00 85 07/17/19 12:00 Nasal Cannula 2.0 07/17/19 12:00 98.9 85 27 97/47 (64) 95 07/17/19 11:00 96/54 07/17/19 11:00 84 27 96/54 (68) 95 Height (Feet): 5 Height (Inches): 9.00 Weight (Pounds): 235 HEENT: mucous membranes moist, other - icterus Respiratory/Chest: rhonchi - bilaterally, other - on BIPAP Cardiovascular: normal rate, other - PICC & HD lines Abdomen: distended, other - Rectal & NG tubes Neurologic/Psychiatric: disoriented Laboratory Tests Test 07/18/19 04:30 White Blood Count 47.2 K/UL (4.8-10.8) *H Red Blood Count 2.35 M/UL (4.70-6.10) L Hemoglobin 7.1 G/DL (14.2-18.0) L Hematocrit 22.4 % (42.0-52.0) L Mean Corpuscular Volume 95 FL (80-99) Mean Corpuscular Hemoglobin 30.1 PG (27.0-31.0) Mean Corpuscular Hemoglobin Concent 31.6 G/DL (32.0-36.0) L Red Cell Distribution Width 24.2 % (11.6-14.8) H Platelet Count 68 K/UL (150-450) L Mean Platelet Volume 8.2 FL (6.5-10.1) Neutrophils (%) (Auto) % (45.0-75.0) Lymphocytes (%) (Auto) % (20.0-45.0) Monocytes (%) (Auto) % (1.0-10.0) Eosinophils (%) (Auto) % (0.0-3.0) Basophils (%) (Auto) % (0.0-2.0) Differential Total Cells Counted 100 Neutrophils % (Manual) 86 % (45-75) H Lymphocytes % (Manual) 8 % (20-45) L Monocytes % (Manual) 5 % (1-10) Eosinophils % (Manual) 1 % (0-3) Basophils % (Manual) 0 % (0-2) Band Neutrophils 0 % (0-8) Nucleated Red Blood Cells 1 /100 WBC Platelet Estimate Decreased L Platelet Morphology Normal Hypochromasia 1+ Anisocytosis 2+ Target Cells 1+ [place] Cells 1+ Sodium Level 137 MMOL/L (136-145) Potassium Level 3.5 MMOL/L (3.5-5.1) Chloride Level 103 MMOL/L (98-107) Carbon Dioxide Level 10 MMOL/L (21-32) L Anion Gap 24 mmol/L (5-15) H Blood Urea Nitrogen 105 mg/dL (7-18) H Creatinine 12.6 MG/DL (0.55-1.30) H Estimat Glomerular Filtration Rate 4.5 mL/min (>60) Glucose Level 135 MG/DL (74-106) H Calcium Level 7.0 MG/DL (8.5-10.1) L Total Bilirubin 34.9 MG/DL (0.2-1.0) H Direct Bilirubin 28.3 MG/DL (0.0-0.3) H Aspartate Amino Transf (AST/SGOT) 191 U/L (15-37) H Alanine Aminotransferase (ALT/SGPT) 11 U/L (12-78) L Alkaline Phosphatase 286 U/L (46-116) H Total Protein 4.8 G/DL (6.4-8.2) L Albumin 1.5 G/DL (3.4-5.0) L Current Medications Medications (Trade) Dose Ordered Sig/Gabriela Route PRN Reason Start Time Stop Time Status Last Admin Dose Admin Cefepime HCl 1 gm/ Dextrose 55 ml @ 110 mls/hr Q24H IVPB 07/13/19 08:00 07/20/19 07:59 07/18/19 08:28 Chlorhexidine Gluconate (Emilie-Hex 2%) 1 applic DAILY@2000 TOPIC 06/26/19 20:00 07/26/19 19:59 07/17/19 20:11 Dextrose/Sodium Chloride 1,000 ml @ 40 mls/hr Q24H IV 07/13/19 12:45 08/12/19 12:44 07/18/19 05:52 Dopamine HCl/ Dextrose 250 ml @ 0 mls/hr Q24H IV 06/30/19 14:53 07/30/19 14:52 07/18/19 09:26 Epoetin Michael (Epoetin Michael(ESRD on dialysis)) 2,000 unit TUE-TUE-TUE SUBQ 07/02/19 21:00 08/01/19 20:59 07/16/19 20:37 Epoetin Michael (Epoetin Michael(ESRD on dialysis)) 3,000 unit TUE- SUBQ 07/02/19 21:00 08/01/19 20:59 07/16/19 20:36 Lactulose (Cephulac) 30 gm FOUR TIMES A DAY NG 07/01/19 09:00 07/20/19 12:59 07/18/19 08:27 Multivitamins (Multivitamins) 1 tab DAILY ORAL 07/10/19 09:00 08/09/19 08:59 07/18/19 08:27 Norepinephrine Bitartrate 8 mg/ Dextrose 558 ml @ 0 mls/hr Q24H IV 07/12/19 21:30 08/11/19 21:29 07/18/19 05:55 Octreotide Acetate 500 mcg/ Sodium Chloride 500 ml @ 50 mls/hr Q10H IV 07/18/19 09:00 08/17/19 08:59 07/18/19 09:25 Pantoprazole (Protonix) 40 mg EVERY 12 HOURS IVP 07/13/19 10:00 08/12/19 09:59 07/18/19 08:27 Thiamine HCl (Vitamin B1) 100 mg DAILY ORAL 07/10/19 09:00 08/09/19 08:59 07/18/19 08:27 Ilia Chakraborty MD Jul 18, 2019 10:35
--- NOTE | 2019-07-18 12:01 | General Progress Note ---
Assessment/Plan Problem List: (1) Anemia ICD Codes: D64.9 - Anemia, unspecified SNOMED: 701006096 Qualifiers: Qualified Codes: D64.9 - Anemia, unspecified (2) Acute alcoholic intoxication ICD Codes: F10.929 - Alcohol use, unspecified with intoxication, unspecified SNOMED: 69165495, 6714386 Qualifiers: Qualified Codes: F10.920 - Alcohol use, unspecified with intoxication, uncomplicated (3) End-stage liver disease ICD Codes: K72.90 - Hepatic failure, unspecified without coma SNOMED: 752627642 (4) Hepatorenal syndrome ICD Codes: K76.7 - Hepatorenal syndrome SNOMED: 63372821, 2676848 (5) Pancreatitis, alcoholic, acute ICD Codes: K85.20 - Alcohol induced acute pancreatitis without necrosis or infection SNOMED: 022423563, 9349109 Qualifiers: Qualified Codes: K85.20 - Alcohol induced acute pancreatitis without necrosis or infection (6) Respiratory failure ICD Codes: J96.90 - Respiratory failure, unspecified, unspecified whether with hypoxia or hypercapnia SNOMED: 337605233 Status: stable, progressing, deteriorating Assessment/Plan: very congested renal shut down multi organ failure on pressor very critical condition left message to dpoa that pt might code any time now etoh cirrhosis ascites renal failure low bp very poor prognosis still jaundice moniter for gi bleeding hepatic encephalopathy elevated lft is persistent hepatorenal syndrome Subjective Gastrointestinal/Abdominal: Reports: abdomen distended, abdominal pain Allergies: Coded Allergies: No Known Allergies (Unverified , 06/20/19) Objective Last 24 Hour Vital Signs Date Time Temp Pulse Resp B/P (MAP) Pulse Ox O2 Delivery O2 Flow Rate FiO2 07/18/19 11:30 85 20 103/53 (70) 95 07/18/19 11:00 84 22 104/47 (66) 95 07/18/19 10:54 81 20 95 Full Face 50 07/18/19 10:00 90/56 07/18/19 10:00 81 21 107/57 (74) 94 07/18/19 09:47 79 21 96 Full Face 40 07/18/19 09:30 72 23 96/40 (58) 96 07/18/19 09:26 88/42 07/18/19 09:00 72 22 81/51 (61) 97 07/18/19 09:00 88/58 07/18/19 08:30 72 21 92/45 (61) 97 07/18/19 08:00 97.7 72 21 92/48 (63) 96 07/18/19 08:00 Bi-pap 5.0 07/18/19 08:00 5.0 40 07/18/19 08:00 71 07/18/19 08:00 90/45 07/18/19 07:31 71 23 96 Full Face 40 07/18/19 07:30 99 Bi-Pap 30 07/18/19 07:00 84/45 07/18/19 07:00 77 23 84/45 (58) 97 07/18/19 06:00 78 23 97/52 (67) 97 07/18/19 05:55 96/44 07/18/19 05:30 77 21 96/44 (61) 96 07/18/19 05:13 80 21 97 Full Face 40 07/18/19 05:00 79 22 95/47 (63) 97 07/18/19 05:00 79/50 07/18/19 04:50 79 23 92/55 (67) 98 07/18/19 04:30 78 24 79/38 (52) 99 07/18/19 04:00 5.0 40 07/18/19 04:00 Bi-pap 5.0 07/18/19 04:00 80 07/18/19 04:00 98.2 79 23 102/47 (65) 98 07/18/19 04:00 89/58 07/18/19 03:30 78 22 87/46 (60) 97 07/18/19 03:27 80 27 96 Full Face 40 07/18/19 03:00 79 15 91/42 (58) 90 07/18/19 03:00 87/46 07/18/19 02:30 80 24 91/39 (56) 97 07/18/19 02:30 80 24 91/39 (56) 97 07/18/19 02:00 79 22 93/40 (57) 97 07/18/19 02:00 80 24 99/40 (59) 97 07/18/19 02:00 91/39 07/18/19 02:00 79 22 93/40 (57) 97 07/18/19 01:30 81 24 93/40 (57) 97 07/18/19 01:30 77 25 93/43 (60) 98 07/18/19 01:30 77 25 93/43 (60) 98 07/18/19 01:05 78 25 96 Full Face 40 07/18/19 01:00 82 26 97/37 (57) 96 07/18/19 01:00 82 26 97/37 (57) 96 07/18/19 01:00 93/43 07/18/19 01:00 82 23 93/43 (60) 96 07/18/19 00:30 81 24 91/41 (58) 97 07/18/19 00:30 81 24 91/41 (58) 97 07/18/19 00:30 81 23 97/37 (57) 96 07/18/19 00:16 95/42 07/18/19 00:00 Bi-pap 5.0 07/18/19 00:00 80 23 95/42 (59) 96 07/18/19 00:00 97.9 80 23 101/40 (60) 96 07/18/19 00:00 88 07/18/19 00:00 91/41 07/18/19 00:00 80 23 95/42 (59) 96 07/18/19 00:00 5.0 40 07/17/19 23:30 79 22 100/39 (59) 99 07/17/19 23:20 83 24 96 Full Face 40 07/17/19 23:00 80 22 94/39 (57) 99 07/17/19 23:00 94/39 07/17/19 22:30 81 22 93/40 (57) 99 07/17/19 22:00 82 23 84/37 (53) 98 07/17/19 22:00 105/60 07/17/19 21:30 82 24 93/48 (63) 98 07/17/19 21:19 83 27 95 Full Face 30 07/17/19 21:00 84 24 92/40 (57) 93 07/17/19 21:00 92/40 07/17/19 20:30 81 24 96/38 (57) 92 07/17/19 20:00 Bi-pap 5.0 07/17/19 20:00 98.2 84 24 96/50 (65) 96 07/17/19 20:00 96/35 07/17/19 20:00 84 07/17/19 20:00 5.0 40 07/17/19 19:34 83 25 96 Full Face 30 07/17/19 19:34 96 Bi-Pap 30 07/17/19 19:30 84 25 92/50 (64) 96 07/17/19 19:00 92/50 07/17/19 18:00 109/45 07/17/19 18:00 86 28 96/47 (63) 97 07/17/19 17:12 82 26 95 Full Face 30 07/17/19 17:00 85 24 96/56 (69) 96 07/17/19 17:00 96/56 07/17/19 16:47 104/49 07/17/19 16:00 Nasal Cannula 2.0 07/17/19 16:00 87 07/17/19 16:00 96/60 07/17/19 16:00 98.5 84 23 96/60 (72) 95 07/17/19 15:00 30 07/17/19 15:00 100/50 07/17/19 15:00 81 21 97/41 (59) 99 07/17/19 14:53 100/50 07/17/19 14:35 81 26 110/43 (65) 94 07/17/19 14:00 90 23 98/57 (71) 96 07/17/19 14:00 109/50 07/17/19 13:00 81 26 110/43 (65) 94 07/17/19 13:00 110/43 07/17/19 12:00 2.0 07/17/19 12:00 97/47 07/17/19 12:00 85 07/17/19 12:00 Nasal Cannula 2.0 07/17/19 12:00 98.9 85 27 97/47 (64) 95 Intake and Output 07/17/19 07/18/19 19:00 07:00 Intake Total 2197.758 ml 1619.29 ml Output Total 550 ml 300 ml Balance 1647.758 ml 1319.29 ml IV Total 2107.758 ml 1619.29 ml Tube Feeding 0 ml 0 ml Other 90 ml Output Urine Total 0 ml 0 ml Stool Total 550 ml 300 ml Laboratory Tests 07/18/19 04:30: White Blood Count 47.2*H, Red Blood Count 2.35L, Hemoglobin 7.1L, Hematocrit 22.4L, Mean Corpuscular Volume 95, Mean Corpuscular Hemoglobin 30.1, Mean Corpuscular Hemoglobin Concent 31.6L, Red Cell Distribution Width 24.2H, Platelet Count 68L, Mean Platelet Volume 8.2, Neutrophils (%) (Auto) , Lymphocytes (%) (Auto) , Monocytes (%) (Auto) , Eosinophils (%) (Auto) , Basophils (%) (Auto) , Differential Total Cells Counted 100, Neutrophils % ( Manual) 86H, Lymphocytes % (Manual) 8L, Monocytes % (Manual) 5, Eosinophils % ( Manual) 1, Basophils % (Manual) 0, Band Neutrophils 0, Nucleated Red Blood Cells 1, Platelet Estimate DecreasedL, Platelet Morphology Normal, Hypochromasia 1+, Anisocytosis 2+, Target Cells 1+, [place] Cells 1+, Sodium Level 137, Potassium Level 3.5, Chloride Level 103, Carbon Dioxide Level 10L, Anion Gap 24H, Blood Urea Nitrogen 105H, Creatinine 12.6H, Estimat Glomerular Filtration Rate 4.5, Glucose Level 135H, Calcium Level 7.0L, Total Bilirubin 34.9H, Direct Bilirubin 28.3H, Aspartate Amino Transf (AST/SGOT) 191H, Alanine Aminotransferase (ALT/SGPT) 11L, Alkaline Phosphatase 286H, Total Protein 4.8L, Albumin 1.5L Height (Feet): 5 Height (Inches): 9.00 Weight (Pounds): 235 Respiratory/Chest: accessory muscle use, rhonchi - bilaterally Deejay Saldaña MD Jul 18, 2019 12:01
--- NOTE | 2019-07-18 12:10 | Nephrology Progress Note ---
Assessment/Plan Problem List: (1) End-stage liver disease (2) Hepatorenal syndrome (3) Pancreatitis, alcoholic, acute (4) Acute alcoholic intoxication (5) Anemia (6) Respiratory failure (7) Hypernatremia Assessment Acute alcoholic intoxication End-stage liver disease Hepatorenal syndrome Pancreatitis, alcoholic, acute Anemia Plan Hypotensive- on few pressors not tolerated dialysis last time due to low BP 07/13 K supplement as needed poor prognosis- appears pre terminal I CONSIDER TREATMENT OF THIS PATIENT TO BE FUTILE correct low K per orders on 06/28/19 met with Brother- Liliana zonia Reyes Rn Cvor Brother will discuss with family regarding DNR and comfort care Subjective ROS Limited/Unobtainable: Yes Objective Objective Last 24 Hour Vital Signs Date Time Temp Pulse Resp B/P (MAP) Pulse Ox O2 Delivery O2 Flow Rate FiO2 07/18/19 11:30 85 20 103/53 (70) 95 07/18/19 11:00 84 22 104/47 (66) 95 07/18/19 10:54 81 20 95 Full Face 50 07/18/19 10:00 90/56 07/18/19 10:00 81 21 107/57 (74) 94 07/18/19 09:47 79 21 96 Full Face 40 07/18/19 09:30 72 23 96/40 (58) 96 07/18/19 09:26 88/42 07/18/19 09:00 72 22 81/51 (61) 97 07/18/19 09:00 88/58 07/18/19 08:30 72 21 92/45 (61) 97 07/18/19 08:00 97.7 72 21 92/48 (63) 96 07/18/19 08:00 Bi-pap 5.0 07/18/19 08:00 5.0 40 07/18/19 08:00 71 07/18/19 08:00 90/45 07/18/19 07:31 71 23 96 Full Face 40 07/18/19 07:30 99 Bi-Pap 30 07/18/19 07:00 84/45 07/18/19 07:00 77 23 84/45 (58) 97 07/18/19 06:00 78 23 97/52 (67) 97 07/18/19 05:55 96/44 07/18/19 05:30 77 21 96/44 (61) 96 07/18/19 05:13 80 21 97 Full Face 40 07/18/19 05:00 79 22 95/47 (63) 97 07/18/19 05:00 79/50 07/18/19 04:50 79 23 92/55 (67) 98 07/18/19 04:30 78 24 79/38 (52) 99 07/18/19 04:00 5.0 40 07/18/19 04:00 Bi-pap 5.0 07/18/19 04:00 80 07/18/19 04:00 98.2 79 23 102/47 (65) 98 07/18/19 04:00 89/58 07/18/19 03:30 78 22 87/46 (60) 97 07/18/19 03:27 80 27 96 Full Face 40 07/18/19 03:00 79 15 91/42 (58) 90 07/18/19 03:00 87/46 07/18/19 02:30 80 24 91/39 (56) 97 07/18/19 02:30 80 24 91/39 (56) 97 07/18/19 02:00 79 22 93/40 (57) 97 07/18/19 02:00 80 24 99/40 (59) 97 07/18/19 02:00 91/39 07/18/19 02:00 79 22 93/40 (57) 97 07/18/19 01:30 81 24 93/40 (57) 97 07/18/19 01:30 77 25 93/43 (60) 98 07/18/19 01:30 77 25 93/43 (60) 98 07/18/19 01:05 78 25 96 Full Face 40 07/18/19 01:00 82 26 97/37 (57) 96 07/18/19 01:00 82 26 97/37 (57) 96 07/18/19 01:00 93/43 07/18/19 01:00 82 23 93/43 (60) 96 07/18/19 00:30 81 24 91/41 (58) 97 07/18/19 00:30 81 24 91/41 (58) 97 07/18/19 00:30 81 23 97/37 (57) 96 07/18/19 00:16 95/42 07/18/19 00:00 Bi-pap 5.0 07/18/19 00:00 80 23 95/42 (59) 96 07/18/19 00:00 97.9 80 23 101/40 (60) 96 07/18/19 00:00 88 07/18/19 00:00 91/41 07/18/19 00:00 80 23 95/42 (59) 96 07/18/19 00:00 5.0 40 07/17/19 23:30 79 22 100/39 (59) 99 07/17/19 23:20 83 24 96 Full Face 40 07/17/19 23:00 80 22 94/39 (57) 99 07/17/19 23:00 94/39 07/17/19 22:30 81 22 93/40 (57) 99 07/17/19 22:00 82 23 84/37 (53) 98 07/17/19 22:00 105/60 07/17/19 21:30 82 24 93/48 (63) 98 07/17/19 21:19 83 27 95 Full Face 30 07/17/19 21:00 84 24 92/40 (57) 93 07/17/19 21:00 92/40 07/17/19 20:30 81 24 96/38 (57) 92 07/17/19 20:00 Bi-pap 5.0 07/17/19 20:00 98.2 84 24 96/50 (65) 96 07/17/19 20:00 96/35 07/17/19 20:00 84 07/17/19 20:00 5.0 40 07/17/19 19:34 83 25 96 Full Face 30 07/17/19 19:34 96 Bi-Pap 30 07/17/19 19:30 84 25 92/50 (64) 96 07/17/19 19:00 92/50 07/17/19 18:00 109/45 07/17/19 18:00 86 28 96/47 (63) 97 07/17/19 17:12 82 26 95 Full Face 30 07/17/19 17:00 85 24 96/56 (69) 96 07/17/19 17:00 96/56 07/17/19 16:47 104/49 07/17/19 16:00 Nasal Cannula 2.0 07/17/19 16:00 87 07/17/19 16:00 96/60 07/17/19 16:00 98.5 84 23 96/60 (72) 95 07/17/19 15:00 30 07/17/19 15:00 100/50 07/17/19 15:00 81 21 97/41 (59) 99 07/17/19 14:53 100/50 07/17/19 14:35 81 26 110/43 (65) 94 07/17/19 14:00 90 23 98/57 (71) 96 07/17/19 14:00 109/50 07/17/19 13:00 81 26 110/43 (65) 94 07/17/19 13:00 110/43 Intake and Output 07/17/19 07/18/19 19:00 07:00 Intake Total 2197.758 ml 1619.29 ml Output Total 550 ml 300 ml Balance 1647.758 ml 1319.29 ml IV Total 2107.758 ml 1619.29 ml Tube Feeding 0 ml 0 ml Other 90 ml Output Urine Total 0 ml 0 ml Stool Total 550 ml 300 ml Laboratory Tests 07/18/19 04:30: White Blood Count 47.2*H, Red Blood Count 2.35L, Hemoglobin 7.1L, Hematocrit 22.4L, Mean Corpuscular Volume 95, Mean Corpuscular Hemoglobin 30.1, Mean Corpuscular Hemoglobin Concent 31.6L, Red Cell Distribution Width 24.2H, Platelet Count 68L, Mean Platelet Volume 8.2, Neutrophils (%) (Auto) , Lymphocytes (%) (Auto) , Monocytes (%) (Auto) , Eosinophils (%) (Auto) , Basophils (%) (Auto) , Differential Total Cells Counted 100, Neutrophils % ( Manual) 86H, Lymphocytes % (Manual) 8L, Monocytes % (Manual) 5, Eosinophils % ( Manual) 1, Basophils % (Manual) 0, Band Neutrophils 0, Nucleated Red Blood Cells 1, Platelet Estimate DecreasedL, Platelet Morphology Normal, Hypochromasia 1+, Anisocytosis 2+, Target Cells 1+, [place] Cells 1+, Sodium Level 137, Potassium Level 3.5, Chloride Level 103, Carbon Dioxide Level 10L, Anion Gap 24H, Blood Urea Nitrogen 105H, Creatinine 12.6H, Estimat Glomerular Filtration Rate 4.5, Glucose Level 135H, Calcium Level 7.0L, Total Bilirubin 34.9H, Direct Bilirubin 28.3H, Aspartate Amino Transf (AST/SGOT) 191H, Alanine Aminotransferase (ALT/SGPT) 11L, Alkaline Phosphatase 286H, Total Protein 4.8L, Albumin 1.5L Height (Feet): 5 Height (Inches): 9.00 Weight (Pounds): 235 General Appearance: mild distress EENT: other - deeply jaundiced Cardiovascular: tachycardia Respiratory/Chest: decreased breath sounds Abdomen: distended Arthur Lay MD Jul 18, 2019 12:10
--- NOTE | 2019-07-18 13:23 | Cardiac Electrophysiology PN ---
Assessment/Plan Assessment/Plan 1. Sinus tach due to alcohol withdrawal, shock , anemia and hepatic encephalopathy. No SVT or atrial fibrillation. EF 55% 2. Cirrhosis. On Lactulose . S/P paracentesis 3. Septic/ hemorrhagic shock, maxed out on Levophed, Dopamine and iv abx 4. Hepatorenal syndrome. Dario Jaramillo. S/P Carrillo Catheter and prn HD 5. Hypokalemia. 6. Alcohol intoxication. Thiamine, folate, and Librium. 7. Hepatic encephalopathy 8. Gi bleed. DARIO BEAUCHAMP RN Subjective Subjective In ICU Lethargic on BIPAP maxed out on Dopamine and Levophed and having upper gi bleed despite Octreotide drip. Still full code. Family coming at 5 pm to make him DNR Objective Last 24 Hour Vital Signs Date Time Temp Pulse Resp B/P (MAP) Pulse Ox O2 Delivery O2 Flow Rate FiO2 07/18/19 12:52 87 22 97 Full Face 50 07/18/19 11:30 85 20 103/53 (70) 95 07/18/19 11:00 84 22 104/47 (66) 95 07/18/19 10:54 81 20 95 Full Face 50 07/18/19 10:00 90/56 07/18/19 10:00 81 21 107/57 (74) 94 07/18/19 09:47 79 21 96 Full Face 40 07/18/19 09:30 72 23 96/40 (58) 96 07/18/19 09:26 88/42 07/18/19 09:00 72 22 81/51 (61) 97 07/18/19 09:00 88/58 07/18/19 08:30 72 21 92/45 (61) 97 07/18/19 08:00 97.7 72 21 92/48 (63) 96 07/18/19 08:00 Bi-pap 5.0 07/18/19 08:00 5.0 40 07/18/19 08:00 71 07/18/19 08:00 90/45 07/18/19 07:31 71 23 96 Full Face 40 07/18/19 07:30 99 Bi-Pap 30 07/18/19 07:00 84/45 07/18/19 07:00 77 23 84/45 (58) 97 07/18/19 06:00 78 23 97/52 (67) 97 07/18/19 05:55 96/44 07/18/19 05:30 77 21 96/44 (61) 96 07/18/19 05:13 80 21 97 Full Face 40 07/18/19 05:00 79 22 95/47 (63) 97 07/18/19 05:00 79/50 07/18/19 04:50 79 23 92/55 (67) 98 07/18/19 04:30 78 24 79/38 (52) 99 07/18/19 04:00 5.0 40 07/18/19 04:00 Bi-pap 5.0 07/18/19 04:00 80 07/18/19 04:00 98.2 79 23 102/47 (65) 98 07/18/19 04:00 89/58 07/18/19 03:30 78 22 87/46 (60) 97 07/18/19 03:27 80 27 96 Full Face 40 07/18/19 03:00 79 15 91/42 (58) 90 07/18/19 03:00 87/46 07/18/19 02:30 80 24 91/39 (56) 97 07/18/19 02:30 80 24 91/39 (56) 97 07/18/19 02:00 79 22 93/40 (57) 97 07/18/19 02:00 80 24 99/40 (59) 97 07/18/19 02:00 91/39 07/18/19 02:00 79 22 93/40 (57) 97 07/18/19 01:30 81 24 93/40 (57) 97 07/18/19 01:30 77 25 93/43 (60) 98 07/18/19 01:30 77 25 93/43 (60) 98 07/18/19 01:05 78 25 96 Full Face 40 07/18/19 01:00 82 26 97/37 (57) 96 07/18/19 01:00 82 26 97/37 (57) 96 07/18/19 01:00 93/43 07/18/19 01:00 82 23 93/43 (60) 96 07/18/19 00:30 81 24 91/41 (58) 97 07/18/19 00:30 81 24 91/41 (58) 97 07/18/19 00:30 81 23 97/37 (57) 96 07/18/19 00:16 95/42 07/18/19 00:00 Bi-pap 5.0 07/18/19 00:00 80 23 95/42 (59) 96 07/18/19 00:00 97.9 80 23 101/40 (60) 96 07/18/19 00:00 88 07/18/19 00:00 91/41 07/18/19 00:00 80 23 95/42 (59) 96 07/18/19 00:00 5.0 40 07/17/19 23:30 79 22 100/39 (59) 99 07/17/19 23:20 83 24 96 Full Face 40 07/17/19 23:00 80 22 94/39 (57) 99 07/17/19 23:00 94/39 07/17/19 22:30 81 22 93/40 (57) 99 07/17/19 22:00 82 23 84/37 (53) 98 07/17/19 22:00 105/60 07/17/19 21:30 82 24 93/48 (63) 98 07/17/19 21:19 83 27 95 Full Face 30 07/17/19 21:00 84 24 92/40 (57) 93 07/17/19 21:00 92/40 07/17/19 20:30 81 24 96/38 (57) 92 07/17/19 20:00 Bi-pap 5.0 07/17/19 20:00 98.2 84 24 96/50 (65) 96 07/17/19 20:00 96/35 07/17/19 20:00 84 07/17/19 20:00 5.0 40 07/17/19 19:34 83 25 96 Full Face 30 07/17/19 19:34 96 Bi-Pap 30 07/17/19 19:30 84 25 92/50 (64) 96 07/17/19 19:00 92/50 07/17/19 18:00 109/45 07/17/19 18:00 86 28 96/47 (63) 97 07/17/19 17:12 82 26 95 Full Face 30 07/17/19 17:00 85 24 96/56 (69) 96 07/17/19 17:00 96/56 07/17/19 16:47 104/49 07/17/19 16:00 Nasal Cannula 2.0 07/17/19 16:00 87 07/17/19 16:00 96/60 07/17/19 16:00 98.5 84 23 96/60 (72) 95 07/17/19 15:00 30 07/17/19 15:00 100/50 07/17/19 15:00 81 21 97/41 (59) 99 07/17/19 14:53 100/50 07/17/19 14:35 81 26 110/43 (65) 94 07/17/19 14:00 90 23 98/57 (71) 96 07/17/19 14:00 109/50 Intake and Output 07/17/19 07/18/19 19:00 07:00 Intake Total 2197.758 ml 1619.29 ml Output Total 550 ml 300 ml Balance 1647.758 ml 1319.29 ml IV Total 2107.758 ml 1619.29 ml Tube Feeding 0 ml 0 ml Other 90 ml Output Urine Total 0 ml 0 ml Stool Total 550 ml 300 ml Laboratory Tests Test 07/18/19 04:30 White Blood Count 47.2 K/UL (4.8-10.8) *H Red Blood Count 2.35 M/UL (4.70-6.10) L Hemoglobin 7.1 G/DL (14.2-18.0) L Hematocrit 22.4 % (42.0-52.0) L Mean Corpuscular Volume 95 FL (80-99) Mean Corpuscular Hemoglobin 30.1 PG (27.0-31.0) Mean Corpuscular Hemoglobin Concent 31.6 G/DL (32.0-36.0) L Red Cell Distribution Width 24.2 % (11.6-14.8) H Platelet Count 68 K/UL (150-450) L Mean Platelet Volume 8.2 FL (6.5-10.1) Neutrophils (%) (Auto) % (45.0-75.0) Lymphocytes (%) (Auto) % (20.0-45.0) Monocytes (%) (Auto) % (1.0-10.0) Eosinophils (%) (Auto) % (0.0-3.0) Basophils (%) (Auto) % (0.0-2.0) Differential Total Cells Counted 100 Neutrophils % (Manual) 86 % (45-75) H Lymphocytes % (Manual) 8 % (20-45) L Monocytes % (Manual) 5 % (1-10) Eosinophils % (Manual) 1 % (0-3) Basophils % (Manual) 0 % (0-2) Band Neutrophils 0 % (0-8) Nucleated Red Blood Cells 1 /100 WBC Platelet Estimate Decreased L Platelet Morphology Normal Hypochromasia 1+ Anisocytosis 2+ Target Cells 1+ [place] Cells 1+ Sodium Level 137 MMOL/L (136-145) Potassium Level 3.5 MMOL/L (3.5-5.1) Chloride Level 103 MMOL/L (98-107) Carbon Dioxide Level 10 MMOL/L (21-32) L Anion Gap 24 mmol/L (5-15) H Blood Urea Nitrogen 105 mg/dL (7-18) H Creatinine 12.6 MG/DL (0.55-1.30) H Estimat Glomerular Filtration Rate 4.5 mL/min (>60) Glucose Level 135 MG/DL (74-106) H Calcium Level 7.0 MG/DL (8.5-10.1) L Total Bilirubin 34.9 MG/DL (0.2-1.0) H Direct Bilirubin 28.3 MG/DL (0.0-0.3) H Aspartate Amino Transf (AST/SGOT) 191 U/L (15-37) H Alanine Aminotransferase (ALT/SGPT) 11 U/L (12-78) L Alkaline Phosphatase 286 U/L (46-116) H Total Protein 4.8 G/DL (6.4-8.2) L Albumin 1.5 G/DL (3.4-5.0) L Objective HEAD AND NECK: No JVD. Sclera is icteric. R IJ Perm Cath. NG tube is in LUNGS: Decreased breath sounds. CARDIOVASCULAR: Tachy S1 and S2 with no gallop. ABDOMEN: Distended with ascites. EXTREMITIES: 2+ pitting edema. Felice Smith MD Jul 18, 2019 13:23
[2019-07-18] MEDS ORDERED: Norepinephrine Bitartrate 16 MG in D5W 500ml 484 ML IV SCH (16:38)
--- NOTE | 2019-07-18 18:06 | Pulmonolgy Critical Care Note ---
Critical Care - Asmt/Plan Assessment/Plan: Pulmonary CCM Progress Note HPI This is a 39-year-old male who is an alcoholic with significant fatty liver on abdominal CT and alcoholic hepatitis, liver failure c/b multiorgan failure. 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 Noted to have Hepatic Encephalopathy and Hepatorenal Syndrome. Had significant hypernatremia, hypokalemia and acidosis, now on HD, s/p Paracentesis previously, GI bleeding today, s/p TFN On NC, BiPAP PRN, NGT, on Lactulose On Hemodialysis for worsening acidosis, uremia, has GI bleed More interactive today BP stable, Midodrine, PRN levophed to maintain BP Allergies: No Known Allergies Past Medical History: Alcohol abuse All Other Systems: negative except mentioned in HPI Physical Exam Vital Signs Noted General Appearance: Jaundiced, awake Head: normocephalic, atraumatic, HD catheter Eyes: bilateral eye PERRL, bilateral eye EOMI, bilateral eye scleral icterus ENT: moist mm Neck: no masses, no LN Respiratory: chest non-tender, lungs clear, normal breath sounds Cardiovascular: regular rate, rhythm, Normal HS1, HS2, no murmur, tachycardia Gastrointestinal: Obese, hepatomegaly, moderate distension, no mass, no rebound Musculoskeletal: moves all limbs Neurologic: responds to commands, awake Skin: jaundiced, mild edema Impression: Alcoholic hepatitis/fatty liver Liver failure GI bleeding - being transfused PRN Sepsis on antibiotics per ID Possible pneumonia Possible Cirrhosis Hepatorenal syndrome - worsening renal function - on HD Multiorgan Failure Extremely poor prognosis Possible Portal Hypertension Hypernatremia improving Pancreatitis, alcoholic, acute Anemia Plan ICU management NPO except meds/NGT feeds Antibiotics per ID TFN PRN Aspiration precautions BiPAP PRN - may need intubation for airway protection if condition worsens NC O2 GI/Renal following HD per Nephrology Pressors PRN Transfuse PRN Thiamine Monitor labs Adjust FIO2 - sats 90-96% Patient has extremely poor prognosis Family considering DNAR Labs: noted EKG: Rate: tachycardiac Rhythm: NSR ST Segments: other - NSST changes Chest X-Ray: possible left infiltrates, hypoventilatory exam, no consolidation , no effusion, no pneumothorax, CT abdomen pelvis: Severely enlarged liver and fatty liver. Mild ascites. Critical Care - Objective Last 24 Hour Vital Signs Date Time Temp Pulse Resp B/P (MAP) Pulse Ox O2 Delivery O2 Flow Rate FiO2 07/18/19 17:30 82 22 112/54 (73) 100 07/18/19 17:27 83 17 100 Full Face 50 07/18/19 17:26 111/54 07/18/19 17:00 84 24 111/54 (73) 98 07/18/19 16:30 86 24 112/59 (76) 98 07/18/19 16:00 97.7 84 24 116/57 (76) 97 07/18/19 16:00 40 07/18/19 16:00 Bi-pap 5.0 07/18/19 16:00 84 07/18/19 15:30 83 24 111/58 (75) 95 07/18/19 15:15 88 23 96 Full Face 50 07/18/19 15:00 90 23 114/62 (79) 100 07/18/19 14:30 88 24 112/60 (77) 99 07/18/19 14:00 88 23 113/58 (76) 98 07/18/19 13:30 88 22 111/61 (78) 100 07/18/19 13:00 91 22 109/60 (76) 94 07/18/19 12:52 87 22 97 Full Face 50 07/18/19 12:30 97.5 87 22 103/48 (66) 97 07/18/19 12:00 Bi-pap 5.0 07/18/19 12:00 5.0 40 07/18/19 12:00 73 07/18/19 12:00 73 22 78/37 (51) 94 07/18/19 11:30 85 20 103/53 (70) 95 07/18/19 11:00 84 22 104/47 (66) 95 07/18/19 10:54 81 20 95 Full Face 50 07/18/19 10:00 90/56 07/18/19 10:00 81 21 107/57 (74) 94 07/18/19 09:47 79 21 96 Full Face 40 07/18/19 09:30 72 23 96/40 (58) 96 07/18/19 09:26 88/42 07/18/19 09:00 72 22 81/51 (61) 97 07/18/19 09:00 88/58 07/18/19 08:30 72 21 92/45 (61) 97 07/18/19 08:00 97.7 72 21 92/48 (63) 96 07/18/19 08:00 Bi-pap 5.0 07/18/19 08:00 5.0 40 07/18/19 08:00 71 07/18/19 08:00 90/45 07/18/19 07:31 71 23 96 Full Face 40 07/18/19 07:30 99 Bi-Pap 30 07/18/19 07:00 84/45 07/18/19 07:00 77 23 84/45 (58) 97 07/18/19 06:00 78 23 97/52 (67) 97 07/18/19 05:55 96/44 07/18/19 05:30 77 21 96/44 (61) 96 07/18/19 05:13 80 21 97 Full Face 40 07/18/19 05:00 79 22 95/47 (63) 97 07/18/19 05:00 79/50 07/18/19 04:50 79 23 92/55 (67) 98 07/18/19 04:30 78 24 79/38 (52) 99 07/18/19 04:00 5.0 40 07/18/19 04:00 Bi-pap 5.0 07/18/19 04:00 80 07/18/19 04:00 98.2 79 23 102/47 (65) 98 07/18/19 04:00 89/58 07/18/19 03:30 78 22 87/46 (60) 97 07/18/19 03:27 80 27 96 Full Face 40 07/18/19 03:00 79 15 91/42 (58) 90 07/18/19 03:00 87/46 07/18/19 02:30 80 24 91/39 (56) 97 07/18/19 02:30 80 24 91/39 (56) 97 07/18/19 02:00 79 22 93/40 (57) 97 07/18/19 02:00 80 24 99/40 (59) 97 07/18/19 02:00 91/39 07/18/19 02:00 79 22 93/40 (57) 97 07/18/19 01:30 81 24 93/40 (57) 97 07/18/19 01:30 77 25 93/43 (60) 98 9/25/19 01:30 77 25 93/43 (60) 98 07/18/19 01:05 78 25 96 Full Face 40 07/18/19 01:00 82 26 97/37 (57) 96 07/18/19 01:00 82 26 97/37 (57) 96 07/18/19 01:00 93/43 07/18/19 01:00 82 23 93/43 (60) 96 07/18/19 00:30 81 24 91/41 (58) 97 07/18/19 00:30 81 24 91/41 (58) 97 07/18/19 00:30 81 23 97/37 (57) 96 07/18/19 00:16 95/42 07/18/19 00:00 Bi-pap 5.0 07/18/19 00:00 80 23 95/42 (59) 96 07/18/19 00:00 97.9 80 23 101/40 (60) 96 07/18/19 00:00 88 07/18/19 00:00 91/41 07/18/19 00:00 80 23 95/42 (59) 96 07/18/19 00:00 5.0 40 07/17/19 23:30 79 22 100/39 (59) 99 07/17/19 23:20 83 24 96 Full Face 40 07/17/19 23:00 80 22 94/39 (57) 99 07/17/19 23:00 94/39 07/17/19 22:30 81 22 93/40 (57) 99 07/17/19 22:00 82 23 84/37 (53) 98 07/17/19 22:00 105/60 07/17/19 21:30 82 24 93/48 (63) 98 07/17/19 21:19 83 27 95 Full Face 30 07/17/19 21:00 84 24 92/40 (57) 93 07/17/19 21:00 92/40 07/17/19 20:30 81 24 96/38 (57) 92 07/17/19 20:00 Bi-pap 5.0 07/17/19 20:00 98.2 84 24 96/50 (65) 96 07/17/19 20:00 96/35 07/17/19 20:00 84 07/17/19 20:00 5.0 40 9/24/19 19:34 83 25 96 Full Face 30 07/17/19 19:34 96 Bi-Pap 30 07/17/19 19:30 84 25 92/50 (64) 96 07/17/19 19:00 92/50 Critical Care - Subjective ROS Limited/Unobtainable: No FI02: 50 Vent Support Mode: BiLevel Sputum Amount: Small Tube Feeding Amount: 0 I&O: Intake and Output 07/17/19 07/18/19 19:00 07:00 Intake Total 2197.758 ml 1619.29 ml Output Total 550 ml 300 ml Balance 1647.758 ml 1319.29 ml IV Total 2107.758 ml 1619.29 ml Tube Feeding 0 ml 0 ml Other 90 ml Output Urine Total 0 ml 0 ml Stool Total 550 ml 300 ml Quang Domingo MD Jul 18, 2019 18:06
[2019-07-18] MEDS: Dyna-Hex 2% Top Sol 2oz TOPIC SCH (20:07)
[2019-07-18] MEDS ORDERED: Sodium Bicarbonate 50ml Carp ONE (21:08)
[2019-07-18] MEDS ORDERED: Sodium Bicarbonate 8.4% 50ml Inj ONE (21:09)
--- NOTE | 2019-07-18 22:04 | Surgery Progress Note ---
Surgery Progress Note Subjective Symptoms: worse Additional Comments ill appearing woresning labs noted on mask poor prognosis Objective Last 24 Hour Vital Signs Date Time Temp Pulse Resp B/P (MAP) Pulse Ox O2 Delivery O2 Flow Rate FiO2 07/18/19 20:00 120/60 07/18/19 20:00 120/60 07/18/19 19:51 84 19 98 Full Face 60 07/18/19 19:49 100 Bi-Pap 60 07/18/19 19:30 84 28 121/59 (79) 98 07/18/19 19:00 85 24 116/62 (80) 100 07/18/19 19:00 109/45 07/18/19 19:00 110/54 07/18/19 18:10 112/54 07/18/19 18:00 88 20 120/60 (80) 98 07/18/19 18:00 110/54 07/18/19 17:30 82 22 112/54 (73) 100 07/18/19 17:27 83 17 100 Full Face 50 07/18/19 17:26 111/54 07/18/19 17:00 107/56 07/18/19 17:00 84 24 111/54 (73) 98 07/18/19 16:30 86 24 112/59 (76) 98 07/18/19 16:00 97.7 84 24 116/57 (76) 97 07/18/19 16:00 40 07/18/19 16:00 Bi-pap 5.0 07/18/19 16:00 112/59 07/18/19 16:00 84 07/18/19 15:30 83 24 111/58 (75) 95 07/18/19 15:15 88 23 96 Full Face 50 07/18/19 15:00 90 23 114/62 (79) 100 07/18/19 15:00 111/58 07/18/19 15:00 116/57 07/18/19 15:00 109/45 07/18/19 14:30 88 24 112/60 (77) 99 07/18/19 14:00 111/56 07/18/19 14:00 88 23 113/58 (76) 98 07/18/19 13:30 88 22 111/61 (78) 100 07/18/19 13:00 91 22 109/60 (76) 94 07/18/19 13:00 111/50 07/18/19 12:52 87 22 97 Full Face 50 07/18/19 12:30 97.5 87 22 103/48 (66) 97 07/18/19 12:00 Bi-pap 5.0 07/18/19 12:00 5.0 40 07/18/19 12:00 73 07/18/19 12:00 110/45 07/18/19 12:00 73 22 78/37 (51) 94 07/18/19 11:30 85 20 103/53 (70) 95 07/18/19 11:00 92/52 07/18/19 11:00 84 22 104/47 (66) 95 07/18/19 10:54 81 20 95 Full Face 50 07/18/19 10:00 90/56 07/18/19 10:00 81 21 107/57 (74) 94 07/18/19 09:47 79 21 96 Full Face 40 07/18/19 09:30 72 23 96/40 (58) 96 07/18/19 09:26 88/42 07/18/19 09:00 72 22 81/51 (61) 97 07/18/19 09:00 88/58 07/18/19 08:30 72 21 92/45 (61) 97 07/18/19 08:00 97.7 72 21 92/48 (63) 96 07/18/19 08:00 Bi-pap 5.0 07/18/19 08:00 5.0 40 07/18/19 08:00 71 07/18/19 08:00 90/45 07/18/19 07:31 71 23 96 Full Face 40 07/18/19 07:30 99 Bi-Pap 30 07/18/19 07:00 84/45 07/18/19 07:00 77 23 84/45 (58) 97 07/18/19 06:00 78 23 97/52 (67) 97 07/18/19 05:55 96/44 07/18/19 05:30 77 21 96/44 (61) 96 07/18/19 05:13 80 21 97 Full Face 40 07/18/19 05:00 79 22 95/47 (63) 97 07/18/19 05:00 79/50 07/18/19 04:50 79 23 92/55 (67) 98 07/18/19 04:30 78 24 79/38 (52) 99 07/18/19 04:00 5.0 40 07/18/19 04:00 Bi-pap 5.0 07/18/19 04:00 80 07/18/19 04:00 98.2 79 23 102/47 (65) 98 07/18/19 04:00 89/58 07/18/19 03:30 78 22 87/46 (60) 97 07/18/19 03:27 80 27 96 Full Face 40 07/18/19 03:00 79 15 91/42 (58) 90 07/18/19 03:00 87/46 07/18/19 02:30 80 24 91/39 (56) 97 07/18/19 02:30 80 24 91/39 (56) 97 07/18/19 02:00 79 22 93/40 (57) 97 07/18/19 02:00 80 24 99/40 (59) 97 07/18/19 02:00 91/39 07/18/19 02:00 79 22 93/40 (57) 97 07/18/19 01:30 81 24 93/40 (57) 97 07/18/19 01:30 77 25 93/43 (60) 98 07/18/19 01:30 77 25 93/43 (60) 98 07/18/19 01:05 78 25 96 Full Face 40 07/18/19 01:00 82 26 97/37 (57) 96 07/18/19 01:00 82 26 97/37 (57) 96 07/18/19 01:00 93/43 07/18/19 01:00 82 23 93/43 (60) 96 07/18/19 00:30 81 24 91/41 (58) 97 07/18/19 00:30 81 24 91/41 (58) 97 07/18/19 00:30 81 23 97/37 (57) 96 07/18/19 00:16 95/42 07/18/19 00:00 Bi-pap 5.0 07/18/19 00:00 80 23 95/42 (59) 96 07/18/19 00:00 97.9 80 23 101/40 (60) 96 07/18/19 00:00 88 07/18/19 00:00 91/41 07/18/19 00:00 80 23 95/42 (59) 96 07/18/19 00:00 5.0 40 07/17/19 23:30 79 22 100/39 (59) 99 07/17/19 23:20 83 24 96 Full Face 40 07/17/19 23:00 80 22 94/39 (57) 99 07/17/19 23:00 94/39 07/17/19 22:30 81 22 93/40 (57) 99 I&O Intake and Output 07/17/19 07/18/19 19:00 07:00 Intake Total 2197.758 ml 1619.29 ml Output Total 550 ml 300 ml Balance 1647.758 ml 1319.29 ml IV Total 2107.758 ml 1619.29 ml Tube Feeding 0 ml 0 ml Other 90 ml Output Urine Total 0 ml 0 ml Stool Total 550 ml 300 ml Dressing: dry, other Wound: clean Cardiovascular: RSR Respiratory: decreased breath sounds Abdomen: soft, other, decreased bowel sounds Extremities: no cyanosis, other Laboratory Tests Test 07/18/19 04:30 White Blood Count 47.2 K/UL (4.8-10.8) *H Red Blood Count 2.35 M/UL (4.70-6.10) L Hemoglobin 7.1 G/DL (14.2-18.0) L Hematocrit 22.4 % (42.0-52.0) L Mean Corpuscular Volume 95 FL (80-99) Mean Corpuscular Hemoglobin 30.1 PG (27.0-31.0) Mean Corpuscular Hemoglobin Concent 31.6 G/DL (32.0-36.0) L Red Cell Distribution Width 24.2 % (11.6-14.8) H Platelet Count 68 K/UL (150-450) L Mean Platelet Volume 8.2 FL (6.5-10.1) Neutrophils (%) (Auto) % (45.0-75.0) Lymphocytes (%) (Auto) % (20.0-45.0) Monocytes (%) (Auto) % (1.0-10.0) Eosinophils (%) (Auto) % (0.0-3.0) Basophils (%) (Auto) % (0.0-2.0) Differential Total Cells Counted 100 Neutrophils % (Manual) 86 % (45-75) H Lymphocytes % (Manual) 8 % (20-45) L Monocytes % (Manual) 5 % (1-10) Eosinophils % (Manual) 1 % (0-3) Basophils % (Manual) 0 % (0-2) Band Neutrophils 0 % (0-8) Nucleated Red Blood Cells 1 /100 WBC Platelet Estimate Decreased L Platelet Morphology Normal Hypochromasia 1+ Anisocytosis 2+ Target Cells 1+ Ranjit Cells 1+ Sodium Level 137 MMOL/L (136-145) Potassium Level 3.5 MMOL/L (3.5-5.1) Chloride Level 103 MMOL/L (98-107) Carbon Dioxide Level 10 MMOL/L (21-32) L Anion Gap 24 mmol/L (5-15) H Blood Urea Nitrogen 105 mg/dL (7-18) H Creatinine 12.6 MG/DL (0.55-1.30) H Estimat Glomerular Filtration Rate 4.5 mL/min (>60) Glucose Level 135 MG/DL (74-106) H Calcium Level 7.0 MG/DL (8.5-10.1) L Total Bilirubin 34.9 MG/DL (0.2-1.0) H Direct Bilirubin 28.3 MG/DL (0.0-0.3) H Aspartate Amino Transf (AST/SGOT) 191 U/L (15-37) H Alanine Aminotransferase (ALT/SGPT) 11 U/L (12-78) L Alkaline Phosphatase 286 U/L (46-116) H Total Protein 4.8 G/DL (6.4-8.2) L Albumin 1.5 G/DL (3.4-5.0) L Plan Problems: (1) Pancreatitis, alcoholic, acute Assessment & Plan: Acute alcoholic pancreatitis. Levels fluctuating. Plan to check levels tomorrow Treat medically and conservatively for now If worsening leukocytosis may consider CT scan (2) Hepatorenal syndrome Assessment & Plan: Chronic liver disease acute, with acute pancreatitis and potential about her renal syndrome as noted. Currently stable treat conservatively no acute surgical intervention recommended Unfortunately invasive techniques not available at this facility Continue with ICU care and management (3) Respiratory failure (4) skin intergrety Assessment & Plan: Pt noted to have dry eschar bridge of nose. Periwound without erythema or fluctuance. Shearing noted to R and L clefts of buttocks. No exudate noted. Both heels firm and blanchable. Tx.Plan: Swab bridge of nose with Benzoin Tincture Twice Daily. Apply Moisture Barrier Paste to buttocks with each perineal care. Apply Cavilon Skin Barrier to both heels. Cover each heel with Optifoam drsg. Change every 7 days and prn. APM/MATTHEW mattress overlay. Reposition at least every 2hours or as tolerated. Off-load heels with pillow. (5) End-stage liver disease Assessment & Plan: DAILY ESTIMATED NEEDS: Needs based on Liver dz, 79kg adj 25-30 kcals/kg 6087-1585 total kcals 1-1.5 (w/ HD 1.2-1.8) g protein/kg 79-119g (w/ HD 95-142g) g total protein Fluid per MD NUTRITION DIAGNOSIS: * Decreased sodium and fat needs r/t liver disease, cirrhosis, acute pancreatitis as evidenced by Abd US, elev T bili (33.5), pt is jaundiced, fatty liver, elev ammonia and AST, elev lipse (643), h/o etoh abuse, adm w/ elev serum alcohol. * Swallowing difficulty R/T confusion, dysphagia as evidenced by NGT feeding initiated, seen by STULL HEWER w/ rec to continue nonoral feeds at this time. CURRENT TF: NEPRO @45 + PS x1 PO DIET RECOMMENDATIONS: WHEN SAFE FOR ORAL FEEDING -> LOW NA/ LOW FAT (texture per STULL HEWER) ENTERAL NUTRITION RECOMMENDATIONS: MAINTAIN NEPRO W/ DIALYSIS TXT: Nepro @45ml/hr x24 hrs + PS x1 to provide 1080ml, 1944 kcal, 87g pro, 785ml free H20 * Maintain Nepro @45ml/hr as tolerated. * Add Prosource x1 pack daily to better meet est pro needs on HD * HOB over 30 degrees/ water flush per MD ADDITIONAL RECOMMENDATIONS: 1) Calibrated bedscale wt 2) Monitor for ability to start oral feeding 3) Check lytes daily 4) Rec to re-add thiamine + Folate daily, add MVI x 1 5) REC TF CHANGE TO NEPRO W/ DIALYSIS TXT 6) Monitor BGs closely, need for hypoglycemics (6) Acute alcoholic intoxication Kennedy Ellison Jul 18, 2019 22:04
--- NOTE | 2019-07-18 22:05 | Emergency Room Report ---
History of Present Illness General Chief Complaint: Alcohol Intoxication Source: Medical Record, PMD Present Illness Allergies: Coded Allergies: No Known Allergies (Unverified , 06/20/19) Nursing [facility] Past Medical History: No Stated History Hx Cardiac Problems: No Hx Cancer: No Hx Gastrointestinal Problems: No Hx Neurological Problems: No Physical Exam Vital Signs Date Time Temp Pulse Resp B/P (MAP) Pulse Ox O2 Delivery O2 Flow Rate FiO2 07/14/19 07:00 86 25 102/48 (66) 96 07/14/19 07:01 Nasal Cannula 2.0 28 07/14/19 08:00 99.3 General: Jaundiced, undergoing CPR HEENT: NC/AT. Being ventilated through Ambu bag Cardiovascular: No heart sounds appreciable Resp: Equal air entry bilaterally Abdomen: Abdomen is distended Skin: Severely jaundiced MSK: Normal tone and bulk. No obvious deformity. Neuro: Nonreactive pupils. No spontaneous movements. Medical Decision Making Diagnostic Impression: Primary Impression: Acute alcoholic intoxication Qualified Codes: F10.920 - Alcohol use, unspecified with intoxication, uncomplicated Additional Impressions: Anemia Qualified Codes: D64.9 - Anemia, unspecified End-stage liver disease Pancreatitis, alcoholic, acute Qualified Codes: K85.20 - Alcohol induced acute pancreatitis without necrosis or infection Hepatorenal syndrome Cardiac arrest ER Course Called to the ICU for CODE BLUE. On my arrival the patient was undergoing active compressions and had already received several rounds of epinephrine. Initial rhythm was asystole. The patient underwent a further 15 minutes resuscitation with multiple rounds of bicarb and epinephrine given per ACS protocol. All rhythm checks were asystole. The patient never regained a pulse. At approximately 20 minutes total code time the patient's family brother , Fracisco Ramirez, was reached by telephone who terminated resuscitation efforts. Final rhythm was asystole. Time of 2109 Last Vital Signs Date Time Temp Pulse Resp B/P (MAP) Pulse Ox O2 Delivery O2 Flow Rate FiO2 07/18/19 20:00 120/60 07/18/19 19:51 84 19 98 Full Face 60 07/18/19 16:00 97.7 07/18/19 16:00 5.0 Disposition: Condition: Referrals: NOT CHOSEN IPA/,REFERRING (PCP) Kurtis Bess MD Jul 18, 2019 22:05
--- NOTE | 2019-07-19 13:04 | Discharge Summary ---
Discharge Summary Discharge Summary _ SUMMARY DATE OF ADMISSION: 06/20/2019 DATE OF EXPIRATION: 07/18/2019 REASON FOR ADMISSION: 39 years old male with history of EtOH abuse, was drinking heavily for 3 months straight and then stopped drinking the day prior to coming to emergency department. Patient felt weak. No bleeding. No nausea or vomiting. Upon evaluation vital signs revealed tachycardia with heart rate 116 , blood pressure 88/55. Pulse oximetry was 92% on room air. EKG revealed sinus tachycardia , no acute ischemic changes. Chest x-ray revealed no acute cardiopulmonary pathology. CT of the abdomen and pelvis demonstrated severe fatty infiltration and hepatomegaly. Colitis involving the right hemicolon and transverse colon. Distended gallbladder with suggestion of intraluminal sludge versus stones. Cholecystitis was not excluded. Umbilical hernia containing fat. Laboratory work-up revealed leukocytosis WBC 15.8, hemoglobin 8.7, hematocrit 26.9 . BUN 29, creatinine 2.0. Glucose 138. Potassium 3.4. Calcium 7.7. Total bilirubin 17.2, direct bilirubin 13.7. AST 285 , ALT 20. Alkaline phosphatase 545 . Lipase 1881. Serum alcohol level 271. Urinalysis revealed +3 protein, +2 ketones, positive nitrate, +1 leukocyte esterase, few bacteria and minimal pyuria, urobilinogen 12 . Patient was tremulous ABD received Ativan in the emergency department. Patient subsequently admitted for further management CONSULTANTS: cake puller Dr. Macedo pulmonary Dr. Huitron ID specialist Dr. Mendes GI specialist Dr. Esposito direct support professional home health Dr. Lay residential nurse/oncologist Dr Kebede surgery Dr. Ellison psychiatrist [facility] COURSE: Patient admitted and started on IV fluids with vitamins and minerals/banana bag. Anxiolytic were on board as needed. Patient was kept n.p.o. Empiric antibiotic started. Abdominal ultrasound revealed evidence of chronic liver disease with hepatomegaly. Portal hypertension was suspected with ascites and abnormal portal venous waveform. Cholelithiasis. Ammonia level 115. Patient started on lactulose and Xifaxan. Patient had a discriminant factor of 16. Corticosteroid therapy was deferred by GI specialist. Echocardiogram demonstrated preserved ejection fraction of 60 to 65% with no evidence of wall motion abnormality. No evidence of pericardial effusion. Right ventricular systolic pressure 28. Follow-up chest x-ray revealed no evidence of acute cardiopulmonary pathology. Supplemental oxygen provided as needed to keep pulse oximetry above 92%. Sinus tachycardia was due to alcohol withdrawal , anemia, hepatic encephalopathy. No SVT or atrial fibrillation. Patient had NG tube inserted . KUB confirmed placement of NG tube. Patient noted to be distended with evidence of ascites. Patient undergone ultrasound-guided paracentesis x 3: on 06/26, 07/06, and 07/11 yielding correspondingly 400 mL, 300 mL and 800 mL of ascitic fluid . Ascitic fluid culture was negative. Fluid analysis revealed no evidence of infection. Marking Devices Assembler followed. Renal parameters and electrolytes were closely monitored. Electrolytes corrected as needed. Patient had rapid decline of renal function due to hepatorenal syndrome. Patient required start of hemodialysis. Non-tunneled right transjugular temporary hemodialysis catheter was inserted by interventional radiologist on 07/02 , and patient subsequently started on hemodialysis. Volumes, renal parameters and electrolytes were closely monitored. Electrolyte further corrected as needed. Infectious disease specialist followed. Leukocytosis worsened, trended up, likely due to sepsis. CXR revealed evidence of left basilar infiltrate. Intermittent fevers. Antibiotics provided as per ID specialist recombinations . Blood cultures , initial and repeated, were negative. Stool for C. difficile was negative. Ascitic fluid culture was negative. Presser [employer] Sh[employer] Knitted Goods followed. Patient noted to be hypoxic. Patient was on BiPAP. Settings titrated as per wood block artist. Bronchodilator therapy provided. Patient suction as needed. Strict aspiration precautions maintained. Patient noted from 07/05 steady increase in leukocytosis from 27.4 to 47.2 on day of expiration. Nursing Instructor closely followed. Severe leukocytosis was likely due to sepsis and multiorgan failure. Anemia work-up revealed evidence of anemia of chronic disease. due to underlying chronic medical issues and was multifactorial. Myelosuppression noted. Epogen was added with hemodialysis. Hepatitis panel was negative. HIV test was nonreactive. Patient was transfused with 5 units of packed red blood cells during hospitalization. Coagulopathy was likely due to cirrhosis. Patient received 1 units of fresh frozen plasma. Patient also noted to have thrombocytopenia which had multifactorial causes, including ETOH abuse, cirrhosis of liver , hepatosplenomegaly, portal hypertension and coagulopathy. Patient condition worsened. Patient exhibited multiply organ failure. Despite hemodialysis renal function worsened. Patient was hypotensive and required start of pressors. Hemodynamic status was clsoely monitored to keep mean arterial blood pressure above 65. Patient was on maximum dose of Levophed and Dopamine. Leukocytosis worsened. Patient had upper GI bleeding due to esophageal varices. Platelet count down to 68 on the day of expiration; hemoglobin 7.1, hematocrit 22.4, last INR 2.5. On patient "CHIDI ALSTON was called. Patient was in asystole. Chest compression initiated along with multiple rounds of bicarbonate and epinephrine as per ACLS protocol . All rhythm checks were asystole. Patient never regained pulses. At approximately 20 minutes of code, patient's brother was reached by the phone , who terminated resuscitation efforts. Final rhythm still was asystole. Patient was pronounced on at 21: 10 . Cause of : cardiopulmonary arrest. FINAL DIAGNOSES: s/p cardiopulmonary arrest due to asystole Septic/hemorrhagic shock Acute alcohol intoxication End-stage liver disease Hepatorenal syndrome Acute renal failure, requiring start of hemodialysis Multiorgan failure Acute toxic and metabolic encephalopathy Hepatic encephalopathy Hypoxic respiratory failure, requiring BiPAP Sepsis Leukocytosis Pneumonia Colitis Acute alcoholic pancreatitis Cirrhosis of liver Portal hypertension GI bleeding Alcohol dependence Anemia of chronic disease Thrombocytopenia Coagulopathy Electrolyte abnormalities I have been assigned to dictate discharge summary for this account. I was not involved in the patient's management. Nupur Rincon NP Jul 19, 2019 13:04
== END 2019-07-18 21:10 | disposition expired | DRG 720 ==
LOC: EDBD 02:53 → EMR 03:30 → EDBEDREQSVC 04:24 → 2E 04:37 → EDBEDREQ 05:19 → ICU 06-21 12:35
PROC: 0W9G3ZZ Drainage of Peritoneal Cavity, Percutaneous Approach (ICD-10-PCS; 2019-06-26)
PROC: 02HV33Z Insertion of Infusion Device into Superior Vena Cava, Percutaneous Approach (ICD-10-PCS; 2019-06-26)
PROC: B548ZZA Ultrasonography of Superior Vena Cava, Guidance (ICD-10-PCS; 2019-06-26)
PROC: 5A1D70Z Performance of Urinary Filtration, Intermittent, Less than 6 Hours Per Day (ICD-10-PCS; principal; 2019-07-02)
PROC: 0W9G3ZZ Drainage of Peritoneal Cavity, Percutaneous Approach (ICD-10-PCS; 2019-07-06)
PROC: 0W9G3ZZ Drainage of Peritoneal Cavity, Percutaneous Approach (ICD-10-PCS; 2019-07-11)
DX: A41.9 Sepsis, unspecified organism (principal); K85.20 Alcohol induced acute pancreatitis without necrosis or infection; K76.7 Hepatorenal syndrome; K70.31 Alcoholic cirrhosis of liver with ascites; F10.229 Alcohol dependence with intoxication, unspecified; R65.20 Severe sepsis without septic shock; N17.9 Acute kidney failure, unspecified; D64.9 Anemia, unspecified; N40.0 Benign prostatic hyperplasia without lower urinary tract symptoms; D69.6 Thrombocytopenia, unspecified; E87.6 Hypokalemia; R00.0 Tachycardia, unspecified; F10.239 Alcohol dependence with withdrawal, unspecified; E83.51 Hypocalcemia; E83.42 Hypomagnesemia; K72.90 Hepatic failure, unspecified without coma; G92 Toxic encephalopathy; K70.0 Alcoholic fatty liver; K92.2 Gastrointestinal hemorrhage, unspecified; J18.9 Pneumonia, unspecified organism; K76.6 Portal hypertension; R57.8 Other shock; J96.01 Acute respiratory failure with hypoxia; I46.9 Cardiac arrest, cause unspecified; N18.6 End stage renal disease; Z99.2 Dependence on renal dialysis; E87.0 Hyperosmolality and hypernatremia; E87.3 Alkalosis
CPT/HCPCS: 36415; 36569; 36600; 71045; 74018; 74176; 76700; 76937; 76942; 80048; 80053; 80061; 80076; 80202; 80307; 80329; 81003; 82105; 82140; 82150; 82248; 82378; 82550; 82607; 82728; 82746; 82803; 82962; 82977; 83036; 83540; 83550; 83605; 83690; 83735; 83880; 84100; 84132; 84165; 84295; 84443; 84484; 84550; 85007; 85025; 85384; 85610; 85730; 86140; 86703; 86705; 86709; 86803; 86850; 86900; 86901; 86920; 86927; 87040; 87070; 87205; 87324; 87340; 89051; 92950; 93005; 93306; 94640; 94660; 94664; 96361; 96365; 96368; 96375; 99285; J0171; J2405; J7620